=== PATIENT | female | born 1960 | race Caucasian/White ===

== ENCOUNTER → 2017-11-10 12:25 | Outpatient (CLI) | payer MEDICARE, SELFPAY | PROVIDERS: Family Provider Internal Medicine; PCP Internal Medicine; Visit Provider Nurse Practitioner Acute Care | DX: J32.9 Chronic sinusitis, unspecified (principal) | CPT/HCPCS: 87070; 87205; 87804 ==

== ENCOUNTER 2017-11-12 14:52 | Inpatient (IN) | payer MEDICARE, SELFPAY ==
[2017-11-12] VITALS (21 sets, daily range): BP systolic 107–152; BP diastolic 63–92; PULSE 75–86; RESP 12–24; TEMP 36.3–36.9; O2SAT 93–100; BMI 44.4; BMI 43.5
--- NOTE | 2017-11-12 15:13 | EKG12_ITS ---
Test Reason : SOB Blood Pressure : / mmHG Vent. Rate : 075 BPM Atrial Rate : 075 BPM P-R Int : 196 ms QRS Dur : 090 ms QT Int : 390 ms P-R-T Axes : 045 006 034 degrees QTc Int : 435 ms Normal sinus rhythm Normal ECG Confirmed by ADITHYA ORLANDO MD ([id number]), acquisitions editor HARSHAL SANDOVAL ([id number] on 11/17/2017 4:03:43 PM Referred By: LEO Confirmed By:ADITHYA ORLANDO MD
--- NOTE | 2017-11-12 15:13 | RAD_ITS ---
STUDY: X-RAY CHEST REASON FOR EXAM: Female, 57 years old. Shortness of breath. TECHNIQUE: Single AP portable view of the chest. COMPARISON: Comparison is made with prior study dated January 05, 2016. FINDINGS: EKG electrodes are seen. Mild degree of vascular congestion. There is no demonstrated pleural abnormality. Normal size heart. Normal mediastinum and yulisa. Normal visualized pulmonary arteries. Normal visualized aortic arch and descending thoracic aorta. There are diffuse degenerative changes of the visualized thoracic spine. Prior fusion in the lower cervical spine. There is no demonstrated abnormality of the visualized soft tissue structures of the upper abdomen. RAD/Chest 1 View (Portable) IMPRESSION: Findings in keeping with a mild degree of vascular congestion. Electronically Signed: Lon Fuchs MD at 15:41 EST Tel [phone], Service support ,
--- NOTE | 2017-11-12 15:15 | ED.VISSUMM ---
- ER Visit Summary Date of Service: 11/12/17 Chief Complaint: Shortness of breath History of Present Illness: The patient is a 57 F history of asthma and COPD also insulin-dependent diabetes and prior DVT and PE is on warfarin. Patient complaining of two-week history of shortness of breath. She was initially treated with Levaquin for 10 days. After that was over she progressively got worse again. She has been running fevers as high as 103 at on Jules 2 days ago was diagnosed with influenza also. She saw her primary care physician earlier this week and her oncology technician today who sent her in the hospital for further evaluation. She denies any hemoptysis. She denies any pleuritic chest pain. She has no cardiac history. Physical Examination: Middle-aged female. Obviously labored breathing with audible wheezing. H EENT exam unremarkable. Neck nontender no JVD. Lungs inspiratory wheezing throughout. No rales or rhonchi. Equal symmetrical. Heart regular rate and rhythm in the 80s. Abdomen is obese but soft and nontender. No peritoneal signs. She is moving all 4 extremities. Calves are nontender. Neurologically she is awake and alert without focal motor deficits. Test Results: CBC normal. BMP normal. PT/INR normal. Troponin normal. EKG sinus rhythm rate is 75 with no signs of TN or ischemia. No dysrhythmia. Chest x-ray showed chronic changes but no acute process read both by myself and the radiologist. Emergency Department Course and Treatment: Patient will be treated with IV steroids and aerosol treatments. She is currently already on prednisone. We will obtain labs and chest x-ray. Treatment Plan: Repeat exam no significant change after multiple aerosol treatments and IV Solu-Medrol. Patient will be admitted to our spoken to the hospitalist. She will also be given 10 mg of Coumadin. Disposition: Admission Impression: Acute exacerbation COPD and asthma. Recently diagnosed with acute influenza. History of insulin-dependent diabetes. Subtherapeutic anticoagulation with an INR of 1 This note was generated with [employer] dictation software. It may contain incorrect words, spelling, and punctuation that were not noted in review of the chart prior to signing ED Disposition - Plan for ED Patient: Chief Complaint: Shortness of Breath Referrals: Ophelia Soria DO [Primary Care Provider] -
--- NOTE | 2017-11-12 15:18 | ED.DCSUM_ITS ---
- ER Visit Summary Date of Service: 11/12/17 Chief Complaint: Shortness of breath History of Present Illness: The patient is a 57 F history of asthma and COPD also insulin-dependent diabetes and prior DVT and PE is on warfarin. Patient complaining of two-week history of shortness of breath. She was initially treated with Levaquin for 10 days. After that was over she progressively got worse again. She has been running fevers as high as 103 at on Jules 2 days ago was diagnosed with influenza also. She saw her primary care physician earlier this week and her plant protection guard today who sent her in the hospital for further evaluation. She denies any hemoptysis. She denies any pleuritic chest pain. She has no cardiac history. Physical Examination: Middle-aged female. Obviously labored breathing with audible wheezing. H EENT exam unremarkable. Neck nontender no JVD. Lungs inspiratory wheezing throughout. No rales or rhonchi. Equal symmetrical. Heart regular rate and rhythm in the 80s. Abdomen is obese but soft and nontender. No peritoneal signs. She is moving all 4 extremities. Calves are nontender. Neurologically she is awake and alert without focal motor deficits. Test Results: CBC normal. BMP normal. PT/INR normal. Troponin normal. EKG sinus rhythm rate is 75 with no signs of MS or ischemia. No dysrhythmia. Chest x-ray showed chronic changes but no acute process read both by myself and the radiologist. Emergency Department Course and Treatment: Patient will be treated with IV steroids and aerosol treatments. She is currently already on prednisone. We will obtain labs and chest x-ray. Treatment Plan: Repeat exam no significant change after multiple aerosol treatments and IV Solu-Medrol. Patient will be admitted to our spoken to the hospitalist. She will also be given 10 mg of Coumadin. Disposition: Admission Impression: Acute exacerbation COPD and asthma. Recently diagnosed with acute influenza. History of insulin-dependent diabetes. Subtherapeutic anticoagulation with an INR of 1 This note was generated with Imnish dictation software. It may contain incorrect words, spelling, and punctuation that were not noted in review of the chart prior to signing ED Disposition - Plan for ED Patient: Chief Complaint: Shortness of Breath Referrals: Ophelia Soria DO [Primary Care Provider] -
[2017-11-12] MEDS: Albuterol 2.5 MG/3 ML VIAL.NEB. INHALATION ×3 (15:30)
[2017-11-12] MEDS: Ipratropium/Albuterol Sulfate 3 ML AMPUL.NEB INHALATION ×2 (15:30→20:40)
[2017-11-12] MEDS: MethylPREDNISolone 125 MG/2 ML Vial IV (15:31)
[2017-11-12 15:59] LABS: Absolute Lymphocyte Count 2.56 X10^3/ul (0.83-4.51); Absolute Neutrophil Count 3.7 X10^3/uL (2.0-7.7); Basophil# 0.14 X10^3/uL; Basophil% 1.8 % (0-1); Eosinophil# 0.21 X10^3/uL; Eosinophils% 2.6 % (0-5); Hematocrit 44.2 % (37-47); Hemoglobin 14.2 g/dl (12.0-15.0); Lymphocyte # 2.56 X10^3/ul (4.0); Lymphocyte % 32.1 % (19-41); Mean Corp Hgb Conc 32.1 g/gl (32-36); Mean Corpuscular Hgb 28.9 pg (27.0-32.0); Mean Corpuscular Volume 89.8 fL (81-99); Mean Platelet Vol. 10.9 fl (6.2-12.0); Monocyte# 1.33 X10^3/uL; Monocyte% 16.7 % (0-10); Neutrophil # 3.69 X10^3/uL (2.7-7.7); Neutrophil % 46.2 % (47-70); Platelet Count 233 K/mm3 (150-450); RBC Distribution Width CV 16.2 % (11.6-14.6); Red Blood Count 4.92 M/mm3 (4.2-5.4)
[2017-11-12 16:00] LABS: International Normalized Ratio 1.1
[2017-11-12 16:04] LABS: POSITIVE COUNT NO; POSITIVE DIFFERENTIAL NO; POSITIVE MORPHOLOGY NO
[2017-11-12 16:08] LABS: Anion Gap 9 (5-15); BUN 12 mg/dL (7-18); BUN/Creat Ratio 21.5 RATIO (10-20); Calcium,Total 8.4 mg/dL (8.5-10.1); Chloride 109 mmol/L (98-107); Creatinine, Serum 0.56 mg/dL (0.55-1.02); EST Glomerular Filtration Rate 118 mL/min (>60); Est Glom Filt Rate - Afr Amer 143 mL/min (>60); Estimated Creatinine Clearance 94.56 ml/min; Glucose 119 mg/dL (70-110); Potassium 3.8 mmol/L (3.5-5.1); Sodium Level 145 mmol/L (136-145)
--- NOTE | 2017-11-12 16:32 | NURSING ---
MED SURG COPD EXAC ALEXANDRA
--- NOTE | 2017-11-12 17:00 | PCM.HP.STD ---
Problem List (1) Influenza A Status: Acute (2) Acute bronchitis Status: Acute Qualifiers: Bronchitis organism: other organism Qualified Code(s): J20.8 - Acute bronchitis due to other specified organisms (3) History of pulmonary embolism Status: Chronic (4) Sinusitis Status: Chronic Qualifiers: Sinusitis location: unspecified location Chronicity: unspecified Qualified Code(s): J32.9 - Chronic sinusitis, unspecified (5) GERD (gastroesophageal reflux disease) Status: Chronic Qualifiers: Esophagitis presence: esophagitis presence not specified Qualified Code(s): K21.9 - Gastro-esophageal reflux disease without esophagitis (6) CAD (coronary artery disease) Status: Chronic Qualifiers: Coronary Disease-Associated Artery/Lesion type: unspecified vessel or lesion type [place] vs. transplanted heart: unspecified whether [place] or transplanted heart Associated angina: angina presence unspecified Qualified Code(s): I25.10 - Atherosclerotic heart disease of [place] coronary artery without angina pectoris (7) Body mass index 45.0-49.9, adult Status: Chronic (8) Asthma Status: Chronic Qualifiers: Asthma severity: unspecified severity Asthma persistence: unspecified Asthma complication type: unspecified Qualified Code(s): J45.909 - Unspecified asthma, uncomplicated (9) Benign hypertension Status: Chronic (10) Type 2 diabetes mellitus Status: Chronic Qualifiers: Diabetes mellitus complication status: with unspecified complications Diabetes mellitus 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 Qualified Code(s): E11.8 - Type 2 diabetes mellitus with unspecified complications; Z79.4 - 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 of insulin (11) Morbid obesity Status: Chronic (12) CHELSEY treated with BiPAP Status: Chronic (13) COPD (chronic obstructive pulmonary disease) Status: Chronic Qualifiers: COPD type: unspecified COPD Qualified Code(s): J44.9 - Chronic obstructive pulmonary disease, unspecified (14) Diastolic heart failure Status: Chronic Qualifiers: Heart failure chronicity: chronic Qualified Code(s): I50.32 - Chronic diastolic (congestive) heart failure (15) Hypertension Status: Chronic Qualifiers: Hypertension type: essential hypertension Qualified Code(s): I10 - Essential (primary) hypertension (16) Hyperlipidemia Status: Chronic Qualifiers: Hyperlipidemia type: unspecified Qualified Code(s): E78.5 - Hyperlipidemia, unspecified (17) Acute respiratory failure Status: Acute Qualifiers: Respiratory failure complication: hypoxia Qualified Code(s): J96.01 - Acute respiratory failure with hypoxia History of Present Illness Date of Admission: 11/12/17 Chief Complaint: Dyspnea, wheezing, recent levaquin completion, sent to ED per Pulmonary office. The patient is a 57 y/o F w/ PMHx: Chronic COPD/Asthma, Anxiety and Depression, Hyperlipidemia, Hypertension, History of PE and DVT on chronic coumadin therapy, Morbid Obesity, CHELESY on q HS BIPAP, Diabetes mellitus type II, CAD, Diastolic CHF, GERD who presents to the [facility] ED per Pulmonary Office recommendation w/ recent in office sputum noted to be unremarkable upon review, recent 11/10/17 + influenza A status w/ recent completion Levaquin 10 day regimen with 2 week history of ongoing dyspnea, progressively worsening with elevated T up to 103. She notes that she has progressively worsened since 6:30 am with ongoing wheezing despite aerosols prompting her pulmonary office evaluation. In the ED work-up included T 97.6, HR 80, BP 146/70, RR 24, 96% on RA, CBC w/ WBC 8, Hgb 14.2, Plts 233 with no marked L shift, INR subtherapeutic 1.1, BMP w. Chl 109, glucose 119, trop < 0.02, CXR w/ chronic changes and mild congestion, recent pulmonary office assessment w/ 11/10/17 + influenza A w/ unremarkable sputum culture. In the ED patient administered duoneb, albuterol, solumedrol, coumadin load 10 mg po x 1. Past Medical History Past Medical History (Chronic Problems): Chronic Problems (Last Reviewed 11/10/17 @ 16:17 by Luly Cheatham NP-C) Hyperlipidemia (Chronic) History of pulmonary embolism (Chronic) Personal history of anaphylaxis (Chronic) Chronic airway obstruction, not elsewhere classified (Chronic) Sinusitis (Chronic) GERD (gastroesophageal reflux disease) (Chronic) CAD (coronary artery disease) (Chronic) Bilateral carotid bruits (Chronic) Body mass index 45.0-49.9, adult (Chronic) Abnormal echocardiogram (Chronic) Shortness of breath (Chronic) Asthma (Chronic) Benign hypertension (Chronic) Type 2 diabetes mellitus (Chronic) Morbid obesity (Chronic) History of pulmonary embolism (Chronic) CHELSEY treated with BiPAP (Chronic) COPD (chronic obstructive pulmonary disease) (Chronic) Diastolic heart failure (Chronic) Hypertension (Chronic) Allergies clindamycin Allergy (Verified 11/12/17 14:55) Rash erythromycin base [Erythromycin Base] Allergy (Verified 11/12/17 14:55) Rash omalizumab [From Xolair] Allergy (Verified 11/12/17 14:55) Chest tightness Penicillins Allergy (Verified 11/12/17 14:55) Rash sulfamethoxazole [From Bactrim] Allergy (Verified 11/12/17 14:55) Chest tightness trimethoprim [From Bactrim] Allergy (Verified 11/12/17 14:55) Chest tightness Home Medications: Ambulatory Orders Medication Instructions Recorded Budesonide/Formoterol 160/4.5 2 puff INHALATION BID 01/26/14 [Symbicort 160/4.5 Mcg Inhaler (SP)] Clobetasol Propionate/Emoll 15 gm TP BID PRN PRN 01/26/14 [Clobetasol Emollient 0.05% Crm] Diltiazem HCl [Cardizem Cd] 360 mg PO DAILY 01/26/14 Fluoxetine [Prozac] 40 mg PO DAILY 01/26/14 Ipratropium/Albuterol Sulfate 3 ml INHALATION Q4H PRN PRN 01/26/14 [Duoneb] Tiotropium Gordon [Spiriva 18 MCG] 1 puff INHALATION DAILY 01/26/14 Epinephrine [Epi Pen] 0.3 mg IM X1 PRN 08/08/15 Tizanidine HCl 4 mg PO BID 11/12/15 Albuterol Aerosols [Ventolin 2.5 mg INHALATION BID PRN 01/06/16 Aerosols] Aspirin [Adult Low Dose Aspirin EC] 81 mg PO QHS 01/06/16 Docusate Sodium [Colace] 100 mg PO BID 01/06/16 Fenofibrate [Lofibra] 80 mg PO DAILY 01/06/16 Furosemide [Lasix] 20 mg PO BIDLX 01/06/16 Gabapentin [Neurontin] 600 mg PO TID 01/06/16 Guaifenesin [Mucinex] 400 mg PO DAILY 01/06/16 Insulin Detemir [Levemir FlexPen] 50 units SC BID 01/06/16 Insulin Lispro [Humalog] 25 unit SQ TIDCM 01/06/16 L.acidoph,Paracasei, B.lactis 1 each PO DAILY 01/06/16 [Probiotic] Levocetirizine Dihydrochloride 5 mg PO DAILY 01/06/16 [Xyzal] Montelukast [Singulair] 10 mg PO DAILY 01/06/16 Multivit-Min/Iron/Folic/Lutein 1 each PO DAILY 01/06/16 [Centrum Silver Women Tablet] Omeprazole [Prilosec] 40 mg PO DAILY 01/06/16 Pitavastatin Calcium [Livalo] 1 mg PO DAILY 01/06/16 Potassium Chloride [K-Dur] 10 meq PO BID 01/06/16 Ranitidine [Zantac] 150 mg PO QHS 01/06/16 Liraglutide [Victoza 2-Ron] 1.8 mg SQ DAILY 02/01/16 Warfarin [Coumadin] 4 mg PO DAILY@1700 02/01/16 Albuterol Inhaler [Ventolin Hfa 2 puff INHALATION Q4H PRN PRN 05/27/16 (SP)] Azelastine HCl [Astelin] 1 spray NASAL BID 05/27/16 Baclofen 5 mg PO BID 05/27/16 Beclomethasone Diprop Inhaler 1 - 2 puff INHALATION BID 05/27/16 [Qvar 80 Mcg Inhaler] Beclomethasone Dipropionate [Qnasl 1 puff IH UD 05/27/16 Children] Ca/D3/Mag/Zinc/Roly/Bello/Mgbor 1 each PO BID 05/27/16 [Caltrate 600+D3+Min Chew Tab] Dicyclomine HCl 20 mg PO TID PRN 05/27/16 Enoxaparin [Lovenox] 120 mg SC Q12@0600,1800 05/27/16 Inhaler, Assist Devices 1 each MC DAILY PRN PRN 05/27/16 [Aerochamber Plus Flow-Vu] Moexipril/Hydrochlorothiazide 1 each PO BID 05/27/16 [Moexipril-Hctz 7.5-12.5 mg Tab] Oxycodone HCl/Acetaminophen 1 - 2 tablet PO Q4H PRN PRN #20 03/27/17 [Percocet 5/325] tablet prednisone 10 mg tablet 10 mg PO QDAY #30 tab 11/10/17 Surgical History: appendectomy, herniorrhaphy, - - Cervical disc surgery, rotator cuff surgery, . Psychiatric History: Anxiety, Depression ADMISSIONS CLINICIAN History: No pertinent ADMISSIONS CLINICIAN history Lives: Spouse/ Significant Other Smoking Status: Never smoker Tobacco Use: Non-smoker Alcohol: None Drugs: None - *Family History Maternal History Items: Diabetes Paternal History Items: Heart Disease Review of Systems Constitutional: Reports: Anorexia, Chills, Fever, Malaise, Weakness, Fatigue. Denies: Weight Change HEENT: Denies: Head Aches, Sinus Congestion, Sinus Drainage Cardiovascular: Denies: Chest Pain, Palpitations Respiratory: Reports: Cough, Shortness of Breath, Shortness of breath at rest, Shortness of breath upon exertion, Sputum production, Wheezing Gastrointestinal: Reports: Nausea. Denies: Abdominal Pain, Vomiting Genitourinary: Denies: Dysuria Musculoskeletal: Reports: Back Pain. Denies: Joint Pain, Joint Tenderness Skin: Denies: Rash, Wounds Neurological: Denies: Numbness, Tingling, Focal weakness Psychiatric: Reports: Anxiety, Depression. Denies: Homicidal Ideations, Suicidal Ideations Hematologic/ Lymphatic: Denies: Easy Bruising, Easy Bleeding VTE Information - Inpt Only VTE Present on Admission: No VTE Mechan Device Prophylaxis: SCD's VTE Pharm Prophylaxis ordered?: Yes Patient Problems: Active and Suspected Problems (Last Reviewed 11/10/17 @ 16:17 by Luly Cheatham NP-C) Acute respiratory failure (Acute) Subjective: Seated upright in bed, increased work of breathing, difficulty speaking in full sentences, accessory muscle usage, obvious respiratory distress. Objective: Physical Examination: General: awake, alert, oriented x 3 and cooperative, seated upright in bed, increased work of breathing, difficulty speaking in full sentences, accessory muscle usage, obvious respiratory distress. Skin: normal color, turgor, no icterus, cyanosis. HEENT: AT/NC, EOMI, PERRLA, mildly dry MM, no carotid bruits or JVD noted although thickened neck makes examination difficult. Lungs: Diminished BS, > bases, coarse diffusely, harsh, expiratory wheezing diffusely, increased work of breathing, difficulty speaking in full sentences, accessory muscle usage, obvious respiratory distress. Heart: Regular rate and rhythm; no gallop, rub audible. Abdomen: soft, morbidly obese, NTTP, ND, normal BS, no HSM; however, habitus makes examination difficult. Extremities: no cyanosis, clubbing, BL LE ankle mild edema. Neurological: patient awake, alert, oriented x 3; cognitive function intact; pupils equally reactive to light and accomodation; cranial nerves II-XII grossly normal, moving all 4 extremities, no focal deficits, strength severely globally decreased secondary to acute presentation. Psychiatric: affect appears fatigued, no acute evidence of depressive or anxiety feelings. - Physical Exam Vital Signs Temp Pulse Resp BP Pulse Ox 97.6 F L 86 14 146/70 H 96 11/12/17 14:53 11/12/17 16:21 11/12/17 16:21 11/12/17 16:21 11/12/17 16:21 Assessment/Plan Active and Suspected Problems (Last Reviewed 11/10/17 @ 16:17 by ADAM Pantoja) Acute respiratory failure (Acute) The patient is a 57 y/o F w/ PMHx: Chronic COPD/Asthma, Anxiety and Depression, Hyperlipidemia, Hypertension, History of PE and DVT on chronic coumadin therapy, Morbid Obesity, CHELSEY on q HS BIPAP, Diabetes mellitus type II, CAD, Diastolic CHF, GERD who presents to the [facility] ED per Pulmonary Office recommendation w/ recent in office sputum noted to be unremarkable upon review, recent 11/10/17 + influenza A status w/ recent completion Levaquin 10 day regimen with 2 week history of ongoing dyspnea, progressively worsening with elevated T up to 103. (1) Acute Hypoxic Respiratory Failure secondary to General Malaise, Cough, Fever, General Debility, Dyspnea w/ Acute on Chronic COPD/Asthma Exacerbation secondary to Influenza A Viral Syndrome: CXR in the ED w/ chronic changes, no obvious infiltrate, recent Levaquin 10 day regimen. Admission CBC w/ no marked WBC or shift noted. 11/10/17 Influenza A positive. No indication for tamflu given length of symptoms. Initially admitted to DC per Swing, upon evaluation status severe appearing w/ increased RR, accessory muscle usage, audible wheezing w/ evidence acute hypoxic respiratory failure. Will transfer from DC to ICU, obtain ABG, place on BIPAP now, repeat ABG in 1-2 hours following and if needed intubate per patient okay if not improved status or fatiguing. Will maintain on ATC duonebs, PRN albuterol, IV solumedrol with predisone transition once appropriate, HOB, IS parameters. Pulmonary/ICU consulted, pending. (2) History of PE, DVT with Subtherapeutic INR: Maintained on anticoagulation, INR admission 1.1, subtherapeutic, administered 10 mg po x 1 in the ED, will administer overlap therapeutic coumadin w/ close INR trending. (3) Diabetes mellitus type II: Hold oral home regimen, continue home insulin regimen, ADA diet, accu checks w/ ISS. (4) Morbid Obesity: Weight loss and lifestyle changes encouraged, nutrition consulted. (5) CHELSEY: q HS BIPAP. (6) Hypertension: Continue home regimen including Cardizem, Lasix, ACEI/HCTZ, PRN hydralazine. (7) Hyperlipidemia: Continue home statin regimen. (8) Diastolic CHF: CXR does not appear marked congested, compensated, maintain on coumadin, asa, statin, lasix, ACEI, not on BB secondary to underlying COPD/Asthma likely. (9) GERD: Famotidine. (10) DVT prophylaxis: SCDs, coumadin w/ INR trending w/ overlapping therapeutic coumadin given subtherapeutic. (11) FULL CODE Code Visit Inpatient E&M: 43922 Init Hosp L3
--- NOTE | 2017-11-12 17:12 | HP.PCM_ITS ---
Problem List (1) Influenza A Status: Acute (2) Acute bronchitis Status: Acute Qualifiers: Bronchitis organism: other organism Qualified Code(s): J20.8 - Acute bronchitis due to other specified organisms (3) History of pulmonary embolism Status: Chronic (4) Sinusitis Status: Chronic Qualifiers: Sinusitis location: unspecified location Chronicity: unspecified Qualified Code(s): J32.9 - Chronic sinusitis, unspecified (5) GERD (gastroesophageal reflux disease) Status: Chronic Qualifiers: Esophagitis presence: esophagitis presence not specified Qualified Code(s) : K21.9 - Gastro-esophageal reflux disease without esophagitis (6) CAD (coronary artery disease) Status: Chronic Qualifiers: Coronary Disease-Associated Artery/Lesion type: unspecified vessel or lesion type [place] vs. transplanted heart: unspecified whether [place] or transplanted heart Associated angina: angina presence unspecified Qualified Code(s): I25.10 - Atherosclerotic heart disease of [place] coronary artery without angina pectoris (7) Body mass index 45.0-49.9, adult Status: Chronic (8) Asthma Status: Chronic Qualifiers: Asthma severity: unspecified severity Asthma persistence: unspecified Asthma complication type: unspecified Qualified Code(s): J45.909 - Unspecified asthma, uncomplicated (9) Benign hypertension Status: Chronic (10) Type 2 diabetes mellitus Status: Chronic Qualifiers: Diabetes mellitus complication status: with unspecified complications Diabetes mellitus terminal supervisor insulin use: with terminal supervisor use Qualified Code(s) : E11.8 - Type 2 diabetes mellitus with unspecified complications; Z79.4 - group home (current) use of insulin (11) Morbid obesity Status: Chronic (12) CHELSEY treated with BiPAP Status: Chronic (13) COPD (chronic obstructive pulmonary disease) Status: Chronic Qualifiers: COPD type: unspecified COPD Qualified Code(s): J44.9 - Chronic obstructive pulmonary disease, unspecified (14) Diastolic heart failure Status: Chronic Qualifiers: Heart failure chronicity: chronic Qualified Code(s): I50.32 - Chronic diastolic (congestive) heart failure (15) Hypertension Status: Chronic Qualifiers: Hypertension type: essential hypertension Qualified Code(s): I10 - Essential (primary) hypertension (16) Hyperlipidemia Status: Chronic Qualifiers: Hyperlipidemia type: unspecified Qualified Code(s): E78.5 - Hyperlipidemia , unspecified (17) Acute respiratory failure Status: Acute Qualifiers: Respiratory failure complication: hypoxia Qualified Code(s): J96.01 - Acute respiratory failure with hypoxia History of Present Illness Date of Admission: 11/12/17 Chief Complaint: Dyspnea, wheezing, recent levaquin completion, sent to ED per Pulmonary office. The patient is a 57 y/o F w/ PMHx: Chronic COPD/Asthma, Anxiety and Depression, Hyperlipidemia, Hypertension, History of PE and DVT on chronic coumadin therapy , Morbid Obesity, CHELSEY on q HS BIPAP, Diabetes mellitus type II, CAD, Diastolic CHF, GERD who presents to the [facility] ED per Pulmonary Office recommendation w/ recent in office sputum noted to be unremarkable upon review, recent 11/10/17 + influenza A status w/ recent completion Levaquin 10 day regimen with 2 week history of ongoing dyspnea, progressively worsening with elevated T up to 103. She notes that she has progressively worsened since 6:30 am with ongoing wheezing despite aerosols prompting her pulmonary office evaluation. In the ED work-up included T 97.6, HR 80, BP 146/70, RR 24, 96% on RA, CBC w/ WBC 8, Hgb 14.2, Plts 233 with no marked L shift, INR subtherapeutic 1.1, BMP w. Chl 109, glucose 119, trop < 0.02, CXR w/ chronic changes and mild congestion, recent pulmonary office assessment w/ 11/10/17 + influenza A w/ unremarkable sputum culture. In the ED patient administered duoneb, albuterol, solumedrol, coumadin load 10 mg po x 1. Past Medical History Past Medical History (Chronic Problems): Chronic Problems (Last Reviewed 11/10/17 @ 16:17 by Luly Cheatham NP-C) Hyperlipidemia (Chronic) History of pulmonary embolism (Chronic) Personal history of anaphylaxis (Chronic) Chronic airway obstruction, not elsewhere classified (Chronic) Sinusitis (Chronic) GERD (gastroesophageal reflux disease) (Chronic) CAD (coronary artery disease) (Chronic) Bilateral carotid bruits (Chronic) Body mass index 45.0-49.9, adult (Chronic) Abnormal echocardiogram (Chronic) Shortness of breath (Chronic) Asthma (Chronic) Benign hypertension (Chronic) Type 2 diabetes mellitus (Chronic) Morbid obesity (Chronic) History of pulmonary embolism (Chronic) CHELSEY treated with BiPAP (Chronic) COPD (chronic obstructive pulmonary disease) (Chronic) Diastolic heart failure (Chronic) Hypertension (Chronic) Allergies clindamycin Allergy (Verified 11/12/17 14:55) Rash erythromycin base [Erythromycin Base] Allergy (Verified 11/12/17 14:55) Rash omalizumab [From Xolair] Allergy (Verified 11/12/17 14:55) Chest tightness Penicillins Allergy (Verified 11/12/17 14:55) Rash sulfamethoxazole [From Bactrim] Allergy (Verified 11/12/17 14:55) Chest tightness trimethoprim [From Bactrim] Allergy (Verified 11/12/17 14:55) Chest tightness Home Medications: Ambulatory Orders Medication Instructions Recorded Budesonide/Formoterol 160/4.5 2 puff INHALATION BID 01/26/14 [Symbicort 160/4.5 Mcg Inhaler (SP)] Clobetasol Propionate/Emoll 15 gm TP BID PRN PRN 01/26/14 [Clobetasol Emollient 0.05% Crm] Diltiazem HCl [Cardizem Cd] 360 mg PO DAILY 01/26/14 Fluoxetine [Prozac] 40 mg PO DAILY 01/26/14 Ipratropium/Albuterol Sulfate 3 ml INHALATION Q4H PRN PRN 01/26/14 [Duoneb] Tiotropium [place] [Spiriva 18 MCG] 1 puff INHALATION DAILY 01/26/14 Epinephrine [Epi Pen] 0.3 mg IM X1 PRN 08/08/15 Tizanidine HCl 4 mg PO BID 11/12/15 Albuterol Aerosols [Ventolin 2.5 mg INHALATION BID PRN 01/06/16 Aerosols] Aspirin [Adult Low Dose Aspirin EC] 81 mg PO QHS 01/06/16 Docusate Sodium [Colace] 100 mg PO BID 01/06/16 Fenofibrate [Lofibra] 80 mg PO DAILY 01/06/16 Furosemide [Lasix] 20 mg PO BIDLX 01/06/16 Gabapentin [Neurontin] 600 mg PO TID 01/06/16 Guaifenesin [Mucinex] 400 mg PO DAILY 01/06/16 Insulin Detemir [Levemir FlexPen] 50 units SC BID 01/06/16 Insulin Lispro [Humalog] 25 unit SQ TIDCM 01/06/16 L.acidoph,Paracasei, B.lactis 1 each PO DAILY 01/06/16 [Probiotic] Levocetirizine Dihydrochloride 5 mg PO DAILY 01/06/16 [Xyzal] Montelukast [Singulair] 10 mg PO DAILY 01/06/16 Multivit-Min/Iron/Folic/Lutein 1 each PO DAILY 01/06/16 [Centrum Silver Women Tablet] Omeprazole [Prilosec] 40 mg PO DAILY 01/06/16 Pitavastatin Calcium [Livalo] 1 mg PO DAILY 01/06/16 Potassium Chloride [K-Dur] 10 meq PO BID 01/06/16 Ranitidine [Zantac] 150 mg PO QHS 01/06/16 Liraglutide [Victoza 2-Ron] 1.8 mg SQ DAILY 02/01/16 Warfarin [Coumadin] 4 mg PO DAILY@1700 02/01/16 Albuterol Inhaler [Ventolin Hfa 2 puff INHALATION Q4H PRN PRN 05/27/16 (SP)] Azelastine HCl [Astelin] 1 spray NASAL BID 05/27/16 Baclofen 5 mg PO BID 05/27/16 Beclomethasone Diprop Inhaler 1 - 2 puff INHALATION BID 05/27/16 [Qvar 80 Mcg Inhaler] Beclomethasone Dipropionate [Qnasl 1 puff IH UD 05/27/16 Children] Ca/D3/Mag/Zinc/Roly/Bello/Mgbor 1 each PO BID 05/27/16 [Caltrate 600+D3+Min Chew Tab] Dicyclomine HCl 20 mg PO TID PRN 05/27/16 Enoxaparin [Lovenox] 120 mg SC Q12@0600,1800 05/27/16 Inhaler, Assist Devices 1 each MC DAILY PRN PRN 05/27/16 [Aerochamber Plus Flow-Vu] Moexipril/Hydrochlorothiazide 1 each PO BID 05/27/16 [Moexipril-Hctz 7.5-12.5 mg Tab] Oxycodone HCl/Acetaminophen 1 - 2 tablet PO Q4H PRN PRN #20 03/27/17 [Percocet 5/325] tablet prednisone 10 mg tablet 10 mg PO QDAY #30 tab 11/10/17 Surgical History: appendectomy, herniorrhaphy, - - Cervical disc surgery, rotator cuff surgery, . Psychiatric History: Anxiety, Depression LUMBER ESTIMATOR History: No pertinent LUMBER ESTIMATOR history Lives: Spouse/ Significant Other Smoking Status: Never smoker Tobacco Use: Non-smoker Alcohol: None Drugs: None - *Family History Maternal History Items: Diabetes Paternal History Items: Heart Disease Review of Systems Constitutional: Reports: Anorexia, Chills, Fever, Malaise, Weakness, Fatigue. Denies: Weight Change HEENT: Denies: Head Aches, Sinus Congestion, Sinus Drainage Cardiovascular: Denies: Chest Pain, Palpitations Respiratory: Reports: Cough, Shortness of Breath, Shortness of breath at rest, Shortness of breath upon exertion, Sputum production, Wheezing Gastrointestinal: Reports: Nausea. Denies: Abdominal Pain, Vomiting Genitourinary: Denies: Dysuria Musculoskeletal: Reports: Back Pain. Denies: Joint Pain, Joint Tenderness Skin: Denies: Rash, Wounds Neurological: Denies: Numbness, Tingling, Focal weakness Psychiatric: Reports: Anxiety, Depression. Denies: Homicidal Ideations, Suicidal Ideations Hematologic/ Lymphatic: Denies: Easy Bruising, Easy Bleeding VTE Information - Inpt Only VTE Present on Admission: No VTE Mechan Device Prophylaxis: SCD's VTE Pharm Prophylaxis ordered?: Yes Patient Problems: Active and Suspected Problems (Last Reviewed 11/10/17 @ 16:17 by Luly Cheatham NP-C) Acute respiratory failure (Acute) Subjective: Seated upright in bed, increased work of breathing, difficulty speaking in full sentences, accessory muscle usage, obvious respiratory distress. Objective: Physical Examination: General: awake, alert, oriented x 3 and cooperative, seated upright in bed, increased work of breathing, difficulty speaking in full sentences, accessory muscle usage, obvious respiratory distress. Skin: normal color, turgor, no icterus, cyanosis. HEENT: AT/NC, EOMI, PERRLA, mildly dry MM, no carotid bruits or JVD noted although thickened neck makes examination difficult. Lungs: Diminished BS, > bases, coarse diffusely, harsh, expiratory wheezing diffusely, increased work of breathing, difficulty speaking in full sentences, accessory muscle usage, obvious respiratory distress. Heart: Regular rate and rhythm; no gallop, rub audible. Abdomen: soft, morbidly obese, NTTP, ND, normal BS, no HSM; however, habitus makes examination difficult. Extremities: no cyanosis, clubbing, BL LE ankle mild edema. Neurological: patient awake, alert, oriented x 3; cognitive function intact; pupils equally reactive to light and accomodation; cranial nerves II-XII grossly normal, moving all 4 extremities, no focal deficits, strength severely globally decreased secondary to acute presentation. Psychiatric: affect appears fatigued, no acute evidence of depressive or anxiety feelings. - Physical Exam Vital Signs Temp Pulse Resp BP Pulse Ox 97.6 F L 86 14 146/70 H 96 11/12/17 14:53 11/12/17 16:21 11/12/17 16:21 11/12/17 16:21 11/12/17 16:21 Assessment/Plan Active and Suspected Problems (Last Reviewed 11/10/17 @ 16:17 by ADAM Pantoja) Acute respiratory failure (Acute) The patient is a 57 y/o F w/ PMHx: Chronic COPD/Asthma, Anxiety and Depression, Hyperlipidemia, Hypertension, History of PE and DVT on chronic coumadin therapy , Morbid Obesity, CHELSEY on q HS BIPAP, Diabetes mellitus type II, CAD, Diastolic CHF, GERD who presents to the [facility] ED per Pulmonary Office recommendation w/ recent in office sputum noted to be unremarkable upon review, recent 11/10/17 + influenza A status w/ recent completion Levaquin 10 day regimen with 2 week history of ongoing dyspnea, progressively worsening with elevated T up to 103. (1) Acute Hypoxic Respiratory Failure secondary to General Malaise, Cough, Fever , General Debility, Dyspnea w/ Acute on Chronic COPD/Asthma Exacerbation secondary to Influenza A Viral Syndrome: CXR in the ED w/ chronic changes, no obvious infiltrate, recent Levaquin 10 day regimen. Admission CBC w/ no marked WBC or shift noted. 11/10/17 Influenza A positive. No indication for tamflu given length of symptoms. Initially admitted to [facility] per Swing, upon evaluation status severe appearing w/ increased RR, accessory muscle usage, audible wheezing w/ evidence acute hypoxic respiratory failure. Will transfer from [place] to ICU, obtain ABG, place on BIPAP now, repeat ABG in 1-2 hours following and if needed intubate per patient okay if not improved status or fatiguing. Will maintain on ATC duonebs, PRN albuterol, IV solumedrol with predisone transition once appropriate, HOB, IS parameters. Pulmonary/ICU consulted, pending. (2) History of PE, DVT with Subtherapeutic INR: Maintained on anticoagulation, INR admission 1.1, subtherapeutic, administered 10 mg po x 1 in the ED, will administer overlap therapeutic coumadin w/ close INR trending. (3) Diabetes mellitus type II: Hold oral home regimen, continue home insulin regimen, ADA diet, accu checks w/ ISS. (4) Morbid Obesity: Weight loss and lifestyle changes encouraged, nutrition consulted. (5) CHELSEY: q HS BIPAP. (6) Hypertension: Continue home regimen including Cardizem, Lasix, ACEI/HCTZ, PRN hydralazine. (7) Hyperlipidemia: Continue home statin regimen. (8) Diastolic CHF: CXR does not appear marked congested, compensated, maintain on coumadin, asa, statin, lasix, ACEI, not on BB secondary to underlying COPD/ Asthma likely. (9) GERD: Famotidine. (10) DVT prophylaxis: SCDs, coumadin w/ INR trending w/ overlapping therapeutic coumadin given subtherapeutic. (11) FULL CODE Code Visit Inpatient E&M: 40530 Init Hosp L3
--- NOTE | 2017-11-12 18:02 | CPS ---
PT PLACED ON HOME BIPAP SETTINGS . PT WEARS BIPAP / HS AT HOME WITH 2L BLEED IN.
[2017-11-12 18:10] LABS: Magnesium 1.9 mg/dL (1.6-2.6)
[2017-11-12] MEDS: 0.9% Normal Saline 1,000 ML 100 ML IV (18:24)
[2017-11-12 18:26] LABS: Allen Test POS; Base Excess 3 mmol/L (-2 to +2); Bicarbonate 26.2 mmol/L (22-26); Blood Gas Specimen Type ART; O2 Delivery Device Room Air; PO2 74 mmHG (75-100); SITE R Radial; SO2 96 % (95-99); Time Given 1815; Total Carbon Dioxide 27 mmol/L; pCO2 35.5 mmHg (35-45); pH 7.48 (7.35-7.45)
[2017-11-12] MEDS: 0.9% NaCl Peripheral Flush Adult/Peds IV (18:29)
[2017-11-12 21:23] LABS: M R Staph aureus DNA By PCR Negative (Negative); Probe Check PASS; Specimen Processing Control PASS
[2017-11-12] MEDS: Furosemide 40 MG Tablet 20 MG PO (21:29)
[2017-11-12] MEDS: Enoxaparin 120 MG/0.8 ML Syringe SC (21:29)
[2017-11-12] MEDS: Aspirin E.C. 81 MG Tablet PO (21:30)
[2017-11-12] MEDS: Azelastine HCl NASAL.SRY 1 SPRAY NASAL (21:30)
[2017-11-12] MEDS: Famotidine 20 MG Tablet PO (21:31)
[2017-11-12] MEDS: Senna/Docusate Sodium 1 Tablet 2 TABLET PO (21:32)
[2017-11-12] MEDS: Atorvastatin Calcium 10 MG Tablet 5 MG PO (21:33)
[2017-11-12] MEDS: tiZANidine HCl 2 MG Tablet 4 MG PO (21:33)
[2017-11-12] MEDS: guaiFENesin 1,200 MG Tablet 1200 MG PO (21:34)
[2017-11-12 21:56] LABS: Bedside Glucose 216 mg/dL (70-110)
[2017-11-13] VITALS (24 sets, daily range): BP systolic 108–136; BP diastolic 54–83; PULSE 66–84; RESP 12–22; TEMP 36.4–36.9; O2SAT 92–100
[2017-11-13] MEDS: Ipratropium/Albuterol Sulfate 3 ML AMPUL.NEB INHALATION ×6 (00:40→22:59)
[2017-11-13 04:41] LABS: Absolute Lymphocyte Count 0.92 X10^3/ul (0.83-4.51); Absolute Neutrophil Count 4.7 X10^3/uL (2.0-7.7); Basophil# 0.04 X10^3/uL; Basophil% 0.7 % (0-1); Hematocrit 43.2 % (37-47); Hemoglobin 14.2 g/dl (12.0-15.0); Lymphocyte # 0.92 X10^3/ul (4.0); Lymphocyte % 15.9 % (19-41); Mean Corp Hgb Conc 32.9 g/gl (32-36); Mean Corpuscular Hgb 29.5 pg (27.0-32.0); Mean Corpuscular Volume 89.6 fL (81-99); Mean Platelet Vol. 10.8 fl (6.2-12.0); Monocyte# 0.14 X10^3/uL; Monocyte% 2.4 % (0-10); Neutrophil # 4.68 X10^3/uL (2.7-7.7); Neutrophil % 80.7 % (47-70); Platelet Count 260 K/mm3 (150-450); RBC Distribution Width CV 16.2 % (11.6-14.6); RBC Distribution Width SD 52.8 fl (35.1-43.9); Red Blood Count 4.82 M/mm3 (4.2-5.4); White Blood Count 5.8 K/mm3 (4.4-11.0)
[2017-11-13 04:43] LABS: Anion Gap 12 (5-15); BUN 13 mg/dL (7-18); BUN/Creat Ratio 18.1 RATIO (10-20); Calcium,Total 8.3 mg/dL (8.5-10.1); Chloride 106 mmol/L (98-107); Creatinine, Serum 0.72 mg/dL (0.55-1.02); EST Glomerular Filtration Rate 88 mL/min (>60); Est Glom Filt Rate - Afr Amer 107 mL/min (>60); Estimated Creatinine Clearance 73.55 ml/min; Glucose 194 mg/dL (70-110); POSITIVE COUNT NO; POSITIVE DIFFERENTIAL NO; POSITIVE MORPHOLOGY NO; Potassium 3.7 mmol/L (3.5-5.1); Sodium Level 143 mmol/L (136-145)
[2017-11-13 04:46] LABS: International Normalized Ratio 1.3; Prothrombin Time (Protime)PT. 15.7 SECONDS (11.7-14.9)
[2017-11-13] MEDS: Enoxaparin 120 MG/0.8 ML Syringe SC ×2 (06:26→16:49)
--- NOTE | 2017-11-13 06:30 | PCM.PN.HOSP ---
Patient Problems: Active and Suspected Problems (Last Reviewed 11/10/17 @ 16:17 by ADAM Pantoja) Acute respiratory failure (Acute) Subjective: Patient with no acute events overnight per self and per nursing report. She is off BiPAP this morning and much improved since evening prior. ABG was not as marked as initially suspected with only hypoxia noted. Gas patient at length with pulmonary this morning and note that she is an asthmatic with no underlying COPD although current regimen is secondary to extensive workup at pulmonary facility. He noted she may possibly in the future be placed on Xolair national recommendations from that facility including strict management of her reflux and weight reduction. Patient denies fevers, chills, nausea, emesis, abdominal pain, chest pain or worsened dyspnea. Objective: Physical Examination: General: awake, alert, oriented x 3 and cooperative, seated upright in the ICU bed in no apparent distress, off BIPAP, no marked audible wheezing now. Skin: normal color, turgor, no icterus, cyanosis. HEENT: AT/NC, EOMI, PERRLA, improved less dry MM. Lungs: Diminished, > bases, still occasional expiratory wheeze, improved from prior, currently no accessory muscle use and RR appropriate. Heart: Regular rate and rhythm; no gallop, rub audible. Abdomen: soft, morbidly obese, NTTP, ND, normal BS. Extremities: no cyanosis, clubbing, or edema. Neurological: patient awake, alert, oriented x 3; cognitive function intact; pupils equally reactive to light and accomodation; cranial nerves II-XII grossly normal, moving all 4 extremities, no focal deficits, strength improved, moderately to severely globally decreased. Psychiatric: affect appears normal, no acute evidence of depressive or anxiety feelings. Vitals/I&O's: Vital Signs Temp Pulse Resp BP Pulse Ox 97.6 F L 79 16 127/78 H 99 11/13/17 06:00 11/13/17 06:00 11/13/17 06:00 11/13/17 06:00 11/13/17 06:00 Oxygen Flow Rate 2 Oxygen Delivery Method Nasal Cannula Weight: 238 lb 8.642 oz Body Mass Index (BMI) 43.5 Intake and Output for Last 24 Hours 11/11/17 11/12/17 11/13/17 23:59 23:59 23:59 Intake Total 753 / 753 599 / 599 Output Total 1200 / 1200 1800 / 1800 Balance -447 / -447 -1201 / -1201 Laboratory Results 11/12/17 18:05: MRSA (PCR) Negative 11/12/17 18:23: Specimen Type ART, Sample Site R Radial, pH 7.48 H, Bicarbonate Actual 26.2 H, POC Total CO2 27, Base Excess 3 H, O2 Saturation 96, ABG pCO2 35.5, ABG pO2 74 L, Riccardo Test POS, O2 Delivery Device Room Air, Blood Gas Notified Whom [facility] , Blood Gas Notified Time 181411/12/17 21:18: POC Glucose 216 H 11/13/17 04:20: WBC 5.8, RBC 4.82, Hgb 14.2, Hct 43.2, MCV 89.6, MCH 29.5, MCHC 32.9, RDW 16.2 H, RDW Differential 52.8 H, Plt Count 260, MPV 10.8, Immature Gran % (Auto) 0.300, Neut % (Auto) 80.7 H, Lymph % (Auto) 15.9 L, [place] % (Auto) 2.4, Eos % (Auto) 0.0, Baso % (Auto) 0.7, Absolute Neuts (auto) 4.7, Absolute Lymphs (auto) 0.92, Total Counted Not Reportable 11/13/17 04:20: PT 15.7 H, INR 1.3 11/13/17 04:20: Sodium 143, Potassium 3.7, Chloride 106, Carbon Dioxide 25.0, Anion Gap 12, BUN 13, Creatinine 0.72, Estim Creat Clear Calc 73.55, Est GFR (MDRD) Af Amer 107, Est GFR (MDRD) Non-Af 88, BUN/Creatinine Ratio 18.1, Glucose 194 H, Calcium 8.3 L Current Medications Acetaminophen (Tylenol) 650 mg PO Q6H PRN PRN PRN Reason: Mild Pain (scale 0-3)/T>100.7 Al Hydroxide/Mg Hydroxide (Mylanta Ii) 30 ml PO Q6H PRN PRN PRN Reason: Gastric burning Albuterol Sulfate (Ventolin Aerosols) 2.5 mg INHALATION Q2H PRN PRN PRN Reason: SHORTNESS OF BREATH Albuterol/Ipratropium (Duoneb) 3 ml INHALATION Q4H.RT [facility] Last Admin: 11/13/17 03:40 Dose: 3 ml Aspirin (Ecotrin) 81 mg PO QHS [facility] Last Admin: 11/12/17 21:30 Dose: 81 mg Atorvastatin Calcium (Lipitor) 5 mg PO QHS [facility] Last Admin: 11/12/17 21:33 Dose: 5 mg Azelastine HCl (Astelin) 1 spray NASAL BID [facility] Last Admin: 11/12/17 21:30 Dose: 1 spray Dextrose (D50w Syringe) 0 gm IV X1 PRN; Protocol PRN Reason: Hypoglycemia Dicyclomine HCl (Bentyl) 20 mg PO TID PRN PRN Reason: DIARRHEA Diltiazem HCl (Cardizem Cd) 360 mg PO DAILY [facility] Enoxaparin Sodium (Lovenox) 120 mg 1 mg/kg (120 mg) SC Q12@0600,1800 [facility] Last Admin: 11/13/17 06:26 Dose: 120 mg Famotidine (Pepcid) 20 mg PO BID [facility] Last Admin: 11/12/17 21:31 Dose: 20 mg Fluoxetine HCl (Prozac) 40 mg PO DAILY [facility] Furosemide (Lasix) 20 mg PO BIDLX [facility] Last Admin: 11/12/17 21:29 Dose: 20 mg Gabapentin (Neurontin) 600 mg PO TIDCM [facility] Glucagon () 1 mg IM .X1 PRN PRN Reason: Hypoglycemia Guaifenesin (Mucinex) 1,200 mg PO BID [facility] Last Admin: 11/12/17 21:34 Dose: 1,200 mg Hydralazine HCl (Apresoline) 10 mg IV Q4H PRN PRN PRN Reason: SBP > 160 Insulin Aspart (Novolog Flexpen (Bkc)) 0 units SC ACHS [facility] PRN Reason: Protocol Last Admin: 11/12/17 21:34 Dose: 2 units Insulin Aspart (Novolog Flexpen (Bkc)) 25 units SC TIDCM [facility] Insulin Detemir (Levemir (Bkc)) 50 units SC BID [facility] Last Admin: 11/12/17 21:30 Dose: 50 units Lactobacillus Acidophilus (Acidophilus) 1 tablet PO DAILY [facility] Loratadine (Claritin) 5 mg PO DAILY [facility] Magnesium Hydroxide (Milk Of Magnesia) 30 ml PO DAILY PRN PRN PRN Reason: Constipation Methylprednisolone (Solu-Medrol) 40 mg IV Q8 [facility] Last Admin: 11/13/17 06:26 Dose: 40 mg Montelukast Sodium (Singulair) 10 mg PO DAILY [facility] Non-Formulary Medication (Moexipril/Hydrochlorothiazide [Moexipril-Hctz 7.5-12.5 Mg Tab]) 1 each PO BID [facility] Ondansetron HCl (Zofran) 4 mg IV Q8H PRN PRN PRN Reason: NAUSEA Oxycodone HCl (Oxyir) 5 - 10 mg PO Q4H PRN PRN PRN Reason: MOD-SEVERE PAIN (4-10/10) Potassium Chloride (K-Dur) 10 meq PO BID [facility] Last Admin: 11/12/17 21:30 Dose: 10 meq Promethazine HCl (Phenergan (Ll)) 12.5 mg IV Q6H PRN PRN PRN Reason: NAUSEA/VOMITING Senna/Docusate Sodium (Senokot-S, Nia-Colace) 2 tablet PO BID [facility] Last Admin: 11/12/17 21:32 Dose: 2 tablet Sodium Chloride () 5 - 30 ml IV UD PRN PRN Reason: SALINE FLUSH Last Admin: 11/12/17 18:29 Dose: 10 ml Tizanidine HCl (Zanaflex) 4 mg PO BID [facility] Last Admin: 11/12/17 21:33 Dose: 4 mg Warfarin Sodium (Coumadin (Pbkc)) 4 mg PO DAILY@1700 [facility] Assessment/Plan Active and Suspected Problems (Last Reviewed 11/10/17 @ 16:17 by Luly Cheatham NP-C) Acute respiratory failure (Acute) The patient is a 57 y/o F w/ PMHx: Chronic Asthma, Anxiety and Depression, Hyperlipidemia, Hypertension, History of PE and DVT on chronic coumadin therapy, Morbid Obesity, CHELSEY on q HS BIPAP, Diabetes mellitus type II, CAD, Diastolic CHF, GERD who presents to the [facility] ED per Pulmonary Office recommendation w/ recent in office sputum noted to be unremarkable upon review, recent 11/10/17 + influenza A status w/ recent completion Levaquin 10 day regimen with 2 week history of ongoing dyspnea, progressively worsening with elevated T up to 103. (1) Acute Hypoxic Respiratory Failure secondary to General Malaise, Cough, Fever, General Debility, Dyspnea w/ Acute on Chronic Asthma Exacerbation secondary to Influenza A Viral Syndrome: CXR in the ED w/ chronic changes, no obvious infiltrate, recent Levaquin 10 day regimen. Admission CBC w/ no marked WBC or shift noted. 11/10/17 Influenza A positive. No indication for tamflu given length of symptoms. Initially admitted to ID per Swing, upon evaluation status severe appearing w/ increased RR, accessory muscle usage, audible wheezing w/ evidence acute hypoxic respiratory failure, transferred to the ICU, ABG obtained, notable for only hypoxia, maintained on BIPAP with improvement, continue ATC duonebs, PRN albuterol, IV solumedrol with predisone transition once appropriate, HOB, IS parameters. Pulmonary/ICU consulted, following. Given improvement will transition out of the ICU. (2) History of PE, DVT with Subtherapeutic INR: Maintained on anticoagulation, INR admission 1.1, subtherapeutic, administered 10 mg po x 1 in the ED, 11/13/17 INR 1.3, continue overlap therapeutic lovenox w/ coumadin until INR appropriate. (3) Diabetes mellitus type II: Hold oral home regimen, continue home insulin regimen, ADA diet, accu checks w/ ISS. (4) Morbid Obesity: Weight loss and lifestyle changes encouraged, nutrition consulted. (5) CHELSEY: q HS BIPAP. (6) Hypertension: Continue home regimen including Cardizem, Lasix, ACEI/HCTZ, PRN hydralazine. (7) Hyperlipidemia: Continue home statin regimen. (8) Diastolic CHF: CXR does not appear marked congested, compensated, maintain on coumadin, asa, statin, lasix, ACEI, not on BB secondary to underlying COPD/Asthma likely, gently hydrated. (9) GERD: Famotidine. (10) DVT prophylaxis: SCDs, coumadin w/ INR trending w/ overlapping therapeutic lovenox given subtherapeutic. (11) FULL CODE Correction: Per review by Dr. Gallagher, patient does not have COPD, only Asthmatic. Code Visit Inpatient E&M: 14885 Subs Hosp L2
[2017-11-13 06:36] LABS: Bedside Glucose 191 mg/dL (70-110)
--- NOTE | 2017-11-13 06:47 | PCM.CON.CC ---
Reason for Consult Date of Consultation: 11/13/17 Reason for Consultation: Respiratory failure History of Present Illness: The patient is a 57-year-old female, with a history as outlined below, who presented to the emergency department on November 12 after failed outpatient treatment for influenza. The patient has a history of poorly controlled asthma, for which she follows with Dr. Lui on an outpatient basis. The patient was referred previously to [facility] in [place], during which time she was underwent an extensive workup. She was felt to have underlying asthma, complicated by her morbid obesity and gastroesophageal reflux, in addition to known underlying allergies. She reports that she currently follows with ENT for immunotherapy, but has missed her last several appointments. She denies keeping any animals pets in her home environment. She is currently being maintained on a triple therapy inhaler regimen with Symbicort and Spiriva. She is also on treatment for allergic rhinitis with Azelastine and Singulair. She reports that despite frequent aerosol treatments and prednisone initiated in her home environment, she continued to experience a great deal of shortness of breath and wheezing. IgE level in August 2015 was noted to be 34. Both present and recent CBC differentials have never demonstrated any peripheral eosinophilia. On November 10, the patient was evaluated by her nurse practitioner in the pulmonary medicine clinic. A sputum culture and rapid influenza screen were obtained. Sputum culture only revealed mixed normal respiratory jorge alberto. Rapid influenza screen was positive for influenza A. She, at that time, was outside of the window to initiate therapy with Tamiflu. Therefore, she was started on a prolonged steroid taper. Pulmonary function testing last completed in May 2015 were grossly within normal limits. The patient has no evidence of COPD based upon her breathing tests. 6 minute walk test last completed in March 2016 revealed no need for supplemental oxygen. Polysomnogram completed in January 2016 revealed evidence of obstructive sleep apnea for which it was recommended that the patient be placed on bilevel therapy with a pressure setting of 23/17 cm of water with humidification. Surface echocardiogram completed in August 2015 revealed evidence of a hyperdynamic LV with an ejection fraction of 75%. On presentation to the emergency department, the patient was noted to be afebrile hemodynamically stable. She was initially documented to be saturating 96% on room air. Laboratory evaluation revealed no evidence of a leukocytosis. INR was noted to be 1.1. Arterial blood gas on room air was grossly within normal limits. Chemistry profile was unremarkable. Troponin was negative. MRSA screen was negative. Plain film chest x-ray revealed a mild degree of pulmonary vascular congestion. No focal infiltrate was identified. For unclear reasons the patient was placed on BiPAP and transferred to the medical intensive care unit for ongoing management. Overnight, the patient was maintained on her home BiPAP settings. She was taken off of noninvasive positive pressure ventilation early this morning and is currently maintaining appropriate oxygen saturations on 2 L via nasal cannula. Past Medical History Past Medical History (Chronic Problems): Chronic Problems (Last Reviewed 11/10/17 @ 16:17 by Luly Cheatham NP-C) Hyperlipidemia (Chronic) History of pulmonary embolism (Chronic) Personal history of anaphylaxis (Chronic) Chronic airway obstruction, not elsewhere classified (Chronic) Sinusitis (Chronic) GERD (gastroesophageal reflux disease) (Chronic) CAD (coronary artery disease) (Chronic) Bilateral carotid bruits (Chronic) Body mass index 45.0-49.9, adult (Chronic) Abnormal echocardiogram (Chronic) Shortness of breath (Chronic) Asthma (Chronic) Benign hypertension (Chronic) Type 2 diabetes mellitus (Chronic) Morbid obesity (Chronic) History of pulmonary embolism (Chronic) CHELSEY treated with BiPAP (Chronic) COPD (chronic obstructive pulmonary disease) (Chronic) Diastolic heart failure (Chronic) Hypertension (Chronic) Allergies clindamycin Allergy (Verified 11/12/17 14:55) Rash erythromycin base [Erythromycin Base] Allergy (Verified 11/12/17 14:55) Rash omalizumab [From Xolair] Allergy (Verified 11/12/17 14:55) Chest tightness Penicillins Allergy (Verified 11/12/17 14:55) Rash sulfamethoxazole [From Bactrim] Allergy (Verified 11/12/17 14:55) Chest tightness trimethoprim [From Bactrim] Allergy (Verified 11/12/17 14:55) Chest tightness Home Medications: Ambulatory Orders Medication Instructions Recorded Budesonide/Formoterol 160/4.5 2 puff INHALATION BID 01/26/14 [Symbicort 160/4.5 Mcg Inhaler (SP)] Clobetasol Propionate/Emoll 15 gm TP BID PRN PRN 01/26/14 [Clobetasol Emollient 0.05% Crm] Diltiazem HCl [Cardizem Cd] 360 mg PO DAILY 01/26/14 Fluoxetine [Prozac] 40 mg PO DAILY 01/26/14 Ipratropium/Albuterol Sulfate 3 ml INHALATION Q4H PRN PRN 01/26/14 [Duoneb] Tiotropium [place] [Spiriva 18 MCG] 1 puff INHALATION DAILY 01/26/14 Epinephrine [Epi Pen] 0.3 mg IM X1 PRN 08/08/15 Tizanidine HCl 4 mg PO PRN PRN 11/12/15 Albuterol Aerosols [Ventolin 2.5 mg INHALATION BID PRN 01/06/16 Aerosols] Aspirin [Adult Low Dose Aspirin EC] 81 mg PO QHS 01/06/16 Docusate Sodium [Colace] 100 mg PO BID 01/06/16 Fenofibrate [Lofibra] 80 mg PO DAILY 01/06/16 Furosemide [Lasix] 20 mg PO BIDLX 01/06/16 Gabapentin [Neurontin] 600 mg PO TID 01/06/16 Guaifenesin [Mucinex] 600 mg PO BID 01/06/16 Insulin Lispro [Humalog] 25 unit SQ ACHS 01/06/16 L.acidoph,Paracasei, B.lactis 1 each PO DAILY 01/06/16 [Probiotic] Levocetirizine Dihydrochloride 5 mg PO DAILY 01/06/16 [Xyzal] Montelukast [Singulair] 10 mg PO DAILY 01/06/16 Multivit-Min/Iron/Folic/Lutein 1 each PO DAILY 01/06/16 [Centrum Silver Women Tablet] Omeprazole [Prilosec] 40 mg PO DAILY 01/06/16 Pitavastatin Calcium [Livalo] 1 mg PO DAILY 01/06/16 Potassium Chloride [K-Dur] 10 meq PO BID 01/06/16 Ranitidine [Zantac] 150 mg PO QHS 01/06/16 Liraglutide [Victoza 2-Ron] 1.8 mg SQ DAILY 02/01/16 Warfarin [Coumadin] 9 mg PO DAILY@1700 02/01/16 Albuterol Inhaler [Ventolin Hfa 2 puff INHALATION Q4H PRN PRN 05/27/16 (SP)] Azelastine HCl [Astelin] 1 spray NASAL BID 05/27/16 Ca/D3/Mag/Zinc/Roly/Bello/Mgbor 1 each PO BID 05/27/16 [Caltrate 600+D3+Min Chew Tab] Inhaler, Assist Devices 1 each MC DAILY PRN PRN 05/27/16 [Aerochamber Plus Flow-Vu] Moexipril/Hydrochlorothiazide 1 each PO BID 05/27/16 [Moexipril-Hctz 7.5-12.5 mg Tab] Oxycodone HCl/Acetaminophen 1 - 2 tablet PO Q4H PRN PRN #20 03/27/17 [Percocet 5/325] tablet prednisone 10 mg tablet 10 mg PO QDAY #30 tab 11/10/17 Amitriptyline HCl 25 mg PO QHS 11/12/17 Dapagliflozin Propanediol [Farxiga] 10 mg PO DAILY 11/12/17 Insulin Glargine,Hum.rec.anlog 45 unit SQ QHS 11/12/17 [Lantus] Surgical History: appendectomy, herniorrhaphy, - - Cervical disc surgery, rotator cuff surgery, . Psychiatric History: Anxiety, Depression DEPOSITION REPORTER History: No pertinent DEPOSITION REPORTER history Lives: Spouse/ Significant Other Smoking Status: Never smoker Tobacco Use: Non-smoker Alcohol: None Drugs: None - *Family History Maternal History Items: Diabetes Paternal History Items: Heart Disease Review of Systems Constitutional: Reports: Chills, Fever Eyes: Denies: Blurred vision, Double vision HEENT: Reports: Post Nasal Drip, Sinus Drainage Cardiovascular: Reports: Chest Tightness Respiratory: Reports: Cough, Shortness of Breath, Wheezing Gastrointestinal: Denies: Abdominal Pain, Nausea, Vomiting Genitourinary: Denies: Dysuria Musculoskeletal: Denies: Joint Pain, Joint Tenderness Skin: Denies: Rash, Wounds Neurological: Denies: Numbness, Tingling, Focal weakness Psychiatric: Denies: Anxiety, Depression, Homicidal Ideations, Suicidal Ideations Hematologic/ Lymphatic: Reports: Hx of blood clot. Denies: Easy Bruising, Easy Bleeding Patient Problems: Active and Suspected Problems (Last Reviewed 11/10/17 @ 16:17 by Luly Cheatham NP-C) Acute respiratory failure (Acute) Objective: The patient's most recent lab work, culture data and imaging studies have all been personally reviewed. - Physical Exam General: Alert, Cooperative, No apparent distress, - - Morbidly obese. Resting comfortably in bed. HEENT: Atraumatic, PERRLA, Normocephalic Oral: Moist Mucosa, No Gingival or Mucosal Lesions/ Ulcerations Neck: Supple, No Nodes, Trachea Midline, - - Large neck circumference with redundant soft tissue. Lungs: No rhonchi, No rales, Diminished, Wheezes, - - No conversational dyspnea. Speaking in full sentences. Cardiovascular: Regular rate, Regular Rhythm, Normal S1, Normal S2, No murmurs Abdomen: Bowel Sounds Present, Soft, Non Tender, Obese Extremities: No clubbing, No cyanosis, No edema Skin: No rashes, No breakdown Musculoskeletal: No Tenderness to Palpation of Joints or Extremities, No Muscle Wasting Lymphatic: No Cervical, Supraclavicular, or Inguinal Adenopathy Neurological: Neuro grossly intact Psych/Mental Status: Alert and oriented to time, place, person, mood and affect Vital Signs Temp Pulse Resp BP Pulse Ox 97.6 F L 79 16 127/78 H 99 11/13/17 06:00 11/13/17 06:00 11/13/17 06:00 11/13/17 06:00 11/13/17 06:00 Oxygen Flow Rate 2 Oxygen Delivery Method Nasal Cannula Weight: 238 lb 8.642 oz Body Mass Index (BMI) 43.5 Intake and Output for Last 24 Hours 11/11/17 11/12/17 11/13/17 23:59 23:59 23:59 Intake Total 753 / 753 599 / 599 Output Total 1200 / 1200 1800 / 1800 Balance -447 / -447 -1201 / -1201 Laboratory Tests Past 24 Hrs 11/12/17 11/12/17 11/13/17 18:05 18:23 04:20 WBC 5.8 RBC 4.82 Hgb 14.2 Hct 43.2 MCV 89.6 MCH 29.5 MCHC 32.9 RDW 16.2 H RDW Differential 52.8 H Plt Count 260 MPV 10.8 Immature Gran % (Auto) 0.300 Neut % (Auto) 80.7 H Lymph % (Auto) 15.9 L [place] % (Auto) 2.4 Eos % (Auto) 0.0 Baso % (Auto) 0.7 Absolute Neuts (auto) 4.7 Absolute Lymphs (auto) 0.92 Total Counted Not Reportable PT INR Specimen Type ART Sample Site R Radial pH 7.48 H Bicarbonate Actual 26.2 H POC Total CO2 27 Base Excess 3 H O2 Saturation 96 ABG pCO2 35.5 ABG pO2 74 L Riccardo Test POS O2 Delivery Device Room Air Blood Gas Notified Whom [facility] Blood Gas Notified Time 1815 Sodium Potassium Chloride Carbon Dioxide Anion Gap BUN Creatinine Estim Creat Clear Calc Est GFR (MDRD) Af Amer Est GFR (MDRD) Non-Af BUN/Creatinine Ratio Glucose Calcium MRSA (PCR) Negative 11/13/17 11/13/17 04:20 04:20 WBC RBC Hgb Hct MCV MCH MCHC RDW RDW Differential Plt Count MPV Immature Gran % (Auto) Neut % (Auto) Lymph % (Auto) [place] % (Auto) Eos % (Auto) Baso % (Auto) Absolute Neuts (auto) Absolute Lymphs (auto) Total Counted PT 15.7 H INR 1.3 Specimen Type Sample Site pH Bicarbonate Actual POC Total CO2 Base Excess O2 Saturation ABG pCO2 ABG pO2 Riccardo Test O2 Delivery Device Blood Gas Notified Whom Blood Gas Notified Time Sodium 143 Potassium 3.7 Chloride 106 Carbon Dioxide 25.0 Anion Gap 12 BUN 13 Creatinine 0.72 Estim Creat Clear Calc 73.55 Est GFR (MDRD) Af Amer 107 Est GFR (MDRD) Non-Af 88 BUN/Creatinine Ratio 18.1 Glucose 194 H Calcium 8.3 L MRSA (PCR) POC Glucose 11/13/17 11/12/17 06:23 21:18 POC Glucose 191 H 216 H Clinical Impression(s) from Imaging Studies Chest X-Ray 11/12/17 15:13 IMPRESSION: Findings in keeping with a mild degree of vascular congestion. Electronically Signed: Lon Fuchs MD at 15:41 EST Tel [phone], Service support , Assessment/Plan Active and Suspected Problems (Last Reviewed 11/10/17 @ 16:17 by Luly Cheatham NP-C) Acute respiratory failure (Acute) RECOMMENDATIONS: 1. Continue BiPAP therapy per home regimen nightly and with naps at 23/17 cmH2O with humidification. 2. Continue scheduled aerosol regimen and IV steroids. Continue IV steroids yet today. 3. Continue Azelastine and Singulair 4. No need for antibiotics or Tamiflu 5. Encourage incentive spirometer use and mobilize patient as tolerated 6. Perform walking oximetry prior to consideration for discharge from the hospital 7. The patient will require a prolonged steroid taper at discharge. IMPRESSIONS: 1. Acute asthma exacerbation secondary to influenza A Continue current supportive measures with scheduled aerosol treatments and IV steroids. The patient is currently maintaining appropriate oxygen saturations on room air while at rest. She will require a walking oximetry study prior to consideration for discharge from the hospital. We will plan to continue IV steroids for at least the next 24 hours. She will also require a prolonged steroid taper at discharge. Close outpatient follow-up in the pulmonary medicine clinic will be warranted. 2. History of obstructive sleep apnea Continue nocturnal bilevel therapy per home regimen with a pressure setting of 23/17 cm of water with humidification. 3. Personal history of atopy/allergic rhinitis Follow up with ENT on an outpatient basis for additional immunotherapy. Continue Singulair and Azelastine. 4. History of VTE Continue outpatient anticoagulation regimen. Check INR daily. 5. Morbid obesity/GERD/hypertension/diabetes/anxiety Complicates care, management, recovery and prognosis. Continue home medications as indicated. This note was generated with [employer] dictation software. It may contain incorrect words, spelling, and punctuation that were not noted in checking the note before signing. DISPOSITION: The patient is medically stable for transfer out of the intensive care unit. Code Visit Inpatient E&M: 34960 Init Hosp L3
[2017-11-13] MEDS: Gabapentin 300 MG Capsule 600 MG PO ×3 (08:09→16:49)
[2017-11-13] MEDS: Azelastine HCl NASAL.SRY 1 SPRAY NASAL ×2 (09:22→20:06)
[2017-11-13] MEDS: dilTIAZem CD 180 MG Capsule 360 MG PO (09:22)
[2017-11-13] MEDS: Furosemide 40 MG Tablet 20 MG PO ×2 (09:23→16:51)
[2017-11-13] MEDS: Montelukast 10 MG Tablet PO (09:24)
[2017-11-13] MEDS: tiZANidine HCl 2 MG Tablet 4 MG PO ×2 (09:25→20:04)
[2017-11-13] MEDS: Famotidine 20 MG Tablet PO ×2 (09:25→20:05)
[2017-11-13] MEDS: guaiFENesin 1,200 MG Tablet 1200 MG PO ×2 (09:25→20:06)
[2017-11-13] MEDS: FLUoxetine 20 MG Capsule 40 MG PO (09:25)
[2017-11-13] MEDS: Senna/Docusate Sodium 1 Tablet 2 TABLET PO ×2 (09:26→20:05)
[2017-11-13] MEDS: Loratadine 10 MG Tablet 5 MG PO (09:26)
--- NOTE | 2017-11-13 10:32 | CASEMGMT ---
Addendum entered by Leah Hernandez 11/13/17 10:58: SW gave pt information from our financial dept for financial assistance, and gave pt a list of counseling agencies in the area. No further needs anticipated. HAYLIE Ordaz, KAYAK MAKER Original Note: See assessment. SW spoke w/pt in room, pt lives home w/ who is wheelchair bound. has waiver services, and they help with fret saw operator on occasion. They have been helping lately as pt has been ill. Pt sees Dr. Lui, sees an ENT also as she has allergies. Pt plans to return home at discharge. SW inquired about anxiety, pt states has anxiety and depression, reports they are controlled at present, is on meds for both. Pt is not in counseling but has been in the past, was in counseling for 10 years. She states when her blood sugar drops she gets anxious, states 3 family members from diabetes. She states she is determined to outlive them, they at 60, 62, and 65. SW inquired if she would like resources for counseling, pt states she would. Pt then asked about her bill, states she is no longer eligible for Medicaid as she got a cost of living increase. She states she and her are on a fixed income, and she is going to struggle to afford the $415/day copay she will have from this hospitalization. She states her called and they do qualify for extra help w/Medicare, but this only covers the premiums. SW explained will call our financial dept. SW called, spoke w/[employer]. She states pt can complete a couple of the applications for assist, she brought them up to this SW, SW will bring them to pt. HAYLIE Ordaz, KRYS
[2017-11-13 11:10] LABS: Bedside Glucose 177 mg/dL (70-110)
[2017-11-13] MEDS: 0.9% NaCl Peripheral Flush Adult/Peds IV ×2 (15:20→20:17)
[2017-11-13 17:06] LABS: Bedside Glucose 184 mg/dL (70-110)
[2017-11-13] MEDS: Atorvastatin Calcium 10 MG Tablet 5 MG PO (20:05)
[2017-11-13] MEDS: Aspirin E.C. 81 MG Tablet PO (20:06)
[2017-11-13 23:06] LABS: Bedside Glucose 262 mg/dL (70-110)
[2017-11-14] VITALS (16 sets, daily range): BP systolic 137–152; BP diastolic 70–90; PULSE 62–79; RESP 12–20; TEMP 36.4–37.2; O2SAT 93–100
[2017-11-14] MEDS: Ipratropium/Albuterol Sulfate 3 ML AMPUL.NEB INHALATION ×6 (02:59→23:10)
[2017-11-14] MEDS: Enoxaparin 120 MG/0.8 ML Syringe SC ×2 (05:36→17:27)
[2017-11-14 06:41] LABS: International Normalized Ratio 1.6
[2017-11-14 06:46] LABS: Anion Gap 11 (5-15); BUN 17 mg/dL (7-18); BUN/Creat Ratio 26.6 RATIO (10-20); Calcium,Total 8.7 mg/dL (8.5-10.1); Chloride 106 mmol/L (98-107); Creatinine, Serum 0.64 mg/dL (0.55-1.02); EST Glomerular Filtration Rate 101 mL/min (>60); Est Glom Filt Rate - Afr Amer 123 mL/min (>60); Estimated Creatinine Clearance 82.74 ml/min; Glucose 260 mg/dL (70-110); Potassium 4.1 mmol/L (3.5-5.1); Sodium Level 142 mmol/L (136-145)
[2017-11-14 06:48] LABS: Absolute Lymphocyte Count 1.03 X10^3/ul (0.83-4.51); Absolute Neutrophil Count 7.9 X10^3/uL (2.0-7.7); Basophil# 0.02 X10^3/uL; Basophil% 0.2 % (0-1); Hematocrit 43.7 % (37-47); Hemoglobin 13.7 g/dl (12.0-15.0); Lymphocyte # 1.03 X10^3/ul (4.0); Lymphocyte % 10.7 % (19-41); Mean Corp Hgb Conc 31.4 g/gl (32-36); Mean Corpuscular Hgb 28.5 pg (27.0-32.0); Mean Corpuscular Volume 90.9 fL (81-99); Mean Platelet Vol. 10.8 fl (6.2-12.0); Monocyte# 0.65 X10^3/uL; Monocyte% 6.7 % (0-10); Neutrophil # 7.92 X10^3/uL (2.7-7.7); Neutrophil % 82.1 % (47-70); Platelet Count 247 K/mm3 (150-450); RBC Distribution Width CV 15.9 % (11.6-14.6); RBC Distribution Width SD 52.7 fl (35.1-43.9); Red Blood Count 4.81 M/mm3 (4.2-5.4); White Blood Count 9.7 K/mm3 (4.4-11.0)
[2017-11-14 06:49] LABS: POSITIVE COUNT NO; POSITIVE DIFFERENTIAL NO; POSITIVE MORPHOLOGY NO
[2017-11-14 06:56] LABS: Bedside Glucose 212 mg/dL (70-110)
--- NOTE | 2017-11-14 08:15 | PN_ITS ---
Patient Problems: Active and Suspected Problems (Last Reviewed 11/10/17 @ 16:17 by ADAM Pantoja) Acute respiratory failure (Acute) Influenza A (Acute) Chronic asthma with acute exacerbation (Acute) Subjective: Patient was seen and examined, sitting up in chair finishing her breakfast. She remains afebrile and hemodynamically stable. Notes significant subjective improvement in her breathing with less coughing and wheezing. She is not bringing up much sputum. She is wearing BiPAP at night. Patient maintaining appropriate saturations on room air. Objective: Chest x-ray showed mild degree of vascular congestion with no demonstrated pleural abnormality. Patient is influenza A positive. No leukocytosis. Lab work reviewed. Glucose is elevated but on IV steroids. - Physical Exam General: Alert, Oriented x3, Cooperative, No apparent distress, Well developed, Well nourished HEENT: Atraumatic, Normocephalic Oral: Moist Mucosa, No Gingival or Mucosal Lesions/ Ulcerations Neck: Supple, No Nodes, Trachea Midline Lungs: Diminished, - - Expiratory wheeze t/o and minimal rhonchi posteriorly Cardiovascular: Regular rate, Regular Rhythm, Normal S1, Normal S2, Murmur, No rub noted, No Gallop, - - occasional ectopic beats Abdomen: Bowel Sounds Present, Soft, Non Tender, Non-Distended, Obese Extremities: No clubbing, No cyanosis, No edema Skin: No rashes, No breakdown Musculoskeletal: No Tenderness to Palpation of Joints or Extremities Lymphatic: No Cervical, Supraclavicular, or Inguinal Adenopathy Neurological: Neuro grossly intact Psych/Mental Status: Alert and oriented to time, place, person, mood and affect Vital Signs Temp Pulse Resp BP Pulse Ox 97.5 F L 70 15 145/90 H 100 11/14/17 05:00 11/14/17 05:00 11/14/17 05:00 11/14/17 05:00 11/14/17 05:00 Oxygen Flow Rate 2 Oxygen Delivery Method Bi-pap Weight: 238 lb 8.642 oz Body Mass Index (BMI) 43.5 Intake and Output for Last 24 Hours 11/12/17 11/13/17 11/14/17 23:59 23:59 23:59 Intake Total 753 / 753 1899 / 1899 100 / 100 Output Total 1200 / 1200 1800 / 1800 Balance -447 / -447 99 / 99 100 / 100 Laboratory Tests Past 24 Hrs 11/14/17 11/14/17 11/14/17 05:25 05:25 05:25 WBC 9.7 RBC 4.81 Hgb 13.7 Hct 43.7 MCV 90.9 MCH 28.5 MCHC 31.4 L RDW 15.9 H RDW Differential 52.7 H Plt Count 247 MPV 10.8 Immature Gran % (Auto) 0.300 Neut % (Auto) 82.1 H Lymph % (Auto) 10.7 L [place] % (Auto) 6.7 Eos % (Auto) 0.0 Baso % (Auto) 0.2 Absolute Neuts (auto) 7.9 H Absolute Lymphs (auto) 1.03 Total Counted Not Reportable PT 18.0 H INR 1.6 Sodium 142 Potassium 4.1 Chloride 106 Carbon Dioxide 25.0 Anion Gap 11 BUN 17 Creatinine 0.64 Estim Creat Clear Calc 82.74 Est GFR (MDRD) Af Amer 123 Est GFR (MDRD) Non-Af 101 BUN/Creatinine Ratio 26.6 H Glucose 260 H Calcium 8.7 POC Glucose 11/14/17 11/13/17 11/13/17 06:48 23:00 16:46 POC Glucose 212 H 262 H 184 H 11/13/17 10:59 POC Glucose 177 H Assessment/Plan Active and Suspected Problems (Last Reviewed 11/10/17 @ 16:17 by Luly Cheatham WEB ARCHITECT-C) Acute respiratory failure (Acute) Influenza A (Acute) Chronic asthma with acute exacerbation (Acute) RECOMMENDATIONS: 1. Continue BiPAP therapy per home regimen nightly and with naps at 23/17 cmH2O with humidification. 2. Continue scheduled aerosol regimen 3. Continue Azelastine and Singulair 4. No need for antibiotics or Tamiflu 5. Continue IV steroids today, then transition to oral in the a.m. 5. Encourage incentive spirometer use and mobilize patient as tolerated 6. Perform walking oximetry prior to consideration for discharge from the hospital 7. The patient will require a prolonged steroid taper at discharge. IMPRESSIONS: 1. Acute asthma exacerbation secondary to influenza A Continue current supportive measures with scheduled aerosol treatments and IV steroids, likely okay to transition to oral steroids 11/15/17. The patient is currently maintaining appropriate oxygen saturations on room air while at rest. She will require a walking oximetry study prior to consideration for discharge from the hospital. We will plan to continue IV steroids for the next 24 hours. Patient notes improvement but does typically decline quickly if taken off IV steroids too soon. She will also require a prolonged steroid taper at discharge. Close outpatient follow-up in the pulmonary medicine clinic will be warranted. 2. History of obstructive sleep apnea Continue nocturnal bilevel therapy per home regimen with a pressure setting of 23/17 cm of water with humidification. 3. Personal history of atopy/allergic rhinitis Follow up with ENT on an outpatient basis for additional immunotherapy. Continue Singulair and Azelastine. 4. History of VTE Continue outpatient anticoagulation regimen. Check INR daily. 5. Morbid obesity/GERD/hypertension/diabetes/anxiety Complicates care, management, recovery and prognosis. Continue home medications as indicated. Insulin may need to be adjusted while on steroids as glucose is somewhat elevated. This note was generated with [employer] dictation software. It may contain incorrect words, spelling, and punctuation that were not noted in checking the note before signing.
[2017-11-14] MEDS: Gabapentin 300 MG Capsule 600 MG PO ×3 (09:11→17:23)
[2017-11-14] MEDS: Azelastine HCl NASAL.SRY 1 SPRAY NASAL ×2 (09:12→22:54)
[2017-11-14] MEDS: Loratadine 10 MG Tablet 5 MG PO (09:13)
[2017-11-14] MEDS: guaiFENesin 1,200 MG Tablet 1200 MG PO ×2 (09:14→23:49)
[2017-11-14] MEDS: Famotidine 20 MG Tablet PO ×2 (09:14→23:22)
[2017-11-14] MEDS: FLUoxetine 20 MG Capsule 40 MG PO (09:14)
[2017-11-14] MEDS: Montelukast 10 MG Tablet PO (09:15)
[2017-11-14] MEDS: tiZANidine HCl 2 MG Tablet 4 MG PO ×2 (09:15→23:46)
[2017-11-14] MEDS: dilTIAZem CD 180 MG Capsule 360 MG PO (09:20)
[2017-11-14] MEDS: Furosemide 40 MG Tablet 20 MG PO ×2 (09:22→17:25)
[2017-11-14] MEDS: Acetaminophen 325 MG Tablet 650 MG PO (09:29)
--- NOTE | 2017-11-14 09:45 | PCM.PN.HOSP ---
Patient Problems: Active and Suspected Problems (Last Updated 11/14/17 @ 08:47 by Tamika Whitley, LICENSED DIRECT ENTRY MIDWIFE-C) Acute respiratory failure (Acute) Influenza A (Acute) Chronic asthma with acute exacerbation (Acute) Subjective: Patient with no acute events overnight per self and per nursing report. She is breathing with much greater ease, off oxygen, BiPAP nightly, working with physical therapy this morning and progressing well. Discussed with pulmonary and patient with decision for continued IV steroids today with possible transition to oral prednisone in the morning and possible discharge to home pending reevaluation to which patient is amenable. Patient denies fevers, chills, nausea, emesis, abdominal pain, chest pain or recurrent or worsened dyspnea. Objective: Physical Examination: General: awake, alert, oriented x 3 and cooperative, seated upright bed, NAD, improved appearance. Skin: normal color, turgor, no icterus, cyanosis. HEENT: AT/NC, EOMI, PERRLA, improved MMM. Lungs: Improved BS throughout, mildly diminished bases, no current wheezing, effort improved. Heart: Regular rate and rhythm; no gallop, rub audible. Abdomen: soft, morbidly obese, NTTP, ND, normal BS. Extremities: no cyanosis, clubbing, or edema. Neurological: patient awake, alert, oriented x 3; cognitive function intact; pupils equally reactive to light and accomodation; cranial nerves II-XII grossly normal, moving all 4 extremities, no focal deficits, strength improved, mildly to moderately globally decreased. Psychiatric: affect appears normal, no acute evidence of depressive or anxiety feelings. Vitals/I&O's: Vital Signs Temp Pulse Resp BP Pulse Ox 98.7 F 75 16 152/84 H 96 11/14/17 09:18 11/14/17 09:18 11/14/17 09:18 11/14/17 09:18 11/14/17 09:18 Oxygen Flow Rate 2 Oxygen Delivery Method Room Air Weight: 238 lb 8.642 oz Body Mass Index (BMI) 43.5 Intake and Output for Last 24 Hours 11/12/17 11/13/17 11/14/17 23:59 23:59 23:59 Intake Total 753 / 753 1899 / 1899 460 / 460 Output Total 1200 / 1200 1800 / 1800 Balance -447 / -447 99 / 99 460 / 460 Laboratory Results 11/13/17 10:59: POC Glucose 177 H 11/13/17 16:46: POC Glucose 184 H 11/13/17 23:00: POC Glucose 262 H 11/14/17 05:25: WBC 9.7, RBC 4.81, Hgb 13.7, Hct 43.7, MCV 90.9, MCH 28.5, MCHC 31.4 L, RDW 15.9 H, RDW Differential 52.7 H, Plt Count 247, MPV 10.8, Immature Gran % (Auto) 0.300, Neut % (Auto) 82.1 H, Lymph % (Auto) 10.7 L, [place] % (Auto) 6.7, Eos % (Auto) 0.0, Baso % (Auto) 0.2, Absolute Neuts (auto) 7.9 H, Absolute Lymphs (auto) 1.03, Total Counted Not Reportable 11/14/17 05:25: PT 18.0 H, INR 1.6 11/14/17 05:25: Sodium 142, Potassium 4.1, Chloride 106, Carbon Dioxide 25.0, Anion Gap 11, BUN 17, Creatinine 0.64, Estim Creat Clear Calc 82.74, Est GFR (MDRD) Af Amer 123, Est GFR (MDRD) Non-Af 101, BUN/Creatinine Ratio 26.6 H, Glucose 260 H, Calcium 8.7 11/14/17 06:48: POC Glucose 212 H Current Medications Acetaminophen (Tylenol) 650 mg PO Q6H PRN PRN PRN Reason: Mild Pain (scale 0-3)/T>100.7 Last Admin: 11/14/17 09:29 Dose: 650 mg Al Hydroxide/Mg Hydroxide (Mylanta Ii) 30 ml PO Q6H PRN PRN PRN Reason: Gastric burning Albuterol Sulfate (Ventolin Aerosols) 2.5 mg INHALATION Q2H PRN PRN PRN Reason: SHORTNESS OF BREATH Albuterol/Ipratropium (Duoneb) 3 ml INHALATION Q4H.RT [facility] Last Admin: 11/14/17 07:05 Dose: 3 ml Aspirin (Ecotrin) 81 mg PO QHS [facility] Last Admin: 11/13/17 20:06 Dose: 81 mg Atorvastatin Calcium (Lipitor) 5 mg PO QHS [facility] Last Admin: 11/13/17 20:05 Dose: 5 mg Azelastine HCl (Astelin) 1 spray NASAL BID [facility] Last Admin: 11/14/17 09:12 Dose: 1 spray Dextrose (D50w Syringe) 0 gm IV X1 PRN; Protocol PRN Reason: Hypoglycemia Dicyclomine HCl (Bentyl) 20 mg PO TID PRN PRN Reason: DIARRHEA Diltiazem HCl (Cardizem Cd) 360 mg PO DAILY [facility] Last Admin: 11/14/17 09:20 Dose: 360 mg Enoxaparin Sodium (Lovenox) 120 mg 1 mg/kg (120 mg) SC Q12@0600,1800 [facility] Last Admin: 11/14/17 05:36 Dose: 120 mg Famotidine (Pepcid) 20 mg PO BID [facility] Last Admin: 11/14/17 09:14 Dose: 20 mg Fluoxetine HCl (Prozac) 40 mg PO DAILY [facility] Last Admin: 11/14/17 09:14 Dose: 40 mg Furosemide (Lasix) 20 mg PO BIDLX [facility] Last Admin: 11/14/17 09:22 Dose: 20 mg Gabapentin (Neurontin) 600 mg PO TIDCM [facility] Last Admin: 11/14/17 09:11 Dose: 600 mg Glucagon () 1 mg IM .X1 PRN PRN Reason: Hypoglycemia Guaifenesin (Mucinex) 1,200 mg PO BID [facility] Last Admin: 11/14/17 09:14 Dose: 1,200 mg Hydralazine HCl (Apresoline) 10 mg IV Q4H PRN PRN PRN Reason: SBP > 160 Insulin Aspart (Novolog Flexpen (Bkc)) 0 units SC ACHS [facility] PRN Reason: Protocol Last Admin: 11/14/17 09:11 Dose: 2 units Insulin Aspart (Novolog Flexpen (Bkc)) 25 units SC TIDCM [facility] Last Admin: 11/14/17 09:11 Dose: 25 u Insulin Detemir (Levemir (Bkc)) 50 units SC BID [facility] Last Admin: 11/14/17 09:13 Dose: 50 units Lactobacillus Acidophilus (Acidophilus) 1 tablet PO DAILY [facility] Last Admin: 11/14/17 09:12 Dose: 1 tablet Loratadine (Claritin) 5 mg PO DAILY [facility] Last Admin: 11/14/17 09:13 Dose: 5 mg Magnesium Hydroxide (Milk Of Magnesia) 30 ml PO DAILY PRN PRN PRN Reason: Constipation Methylprednisolone (Solu-Medrol) 40 mg IV Q8 [facility] Last Admin: 11/14/17 05:36 Dose: 40 mg Montelukast Sodium (Singulair) 10 mg PO DAILY [facility] Last Admin: 11/14/17 09:15 Dose: 10 mg Non-Formulary Medication (Moexipril/Hydrochlorothiazide [Moexipril-Hctz 7.5-12.5 Mg Tab]) 1 each PO BID [facility] Ondansetron HCl (Zofran) 4 mg IV Q8H PRN PRN PRN Reason: NAUSEA Oxycodone HCl (Oxyir) 5 - 10 mg PO Q4H PRN PRN PRN Reason: MOD-SEVERE PAIN (-07/22) Potassium Chloride (K-Dur) 10 meq PO BID [facility] Last Admin: 11/14/17 09:13 Dose: 10 meq Promethazine HCl (Phenergan (Ll)) 12.5 mg IV Q6H PRN PRN PRN Reason: NAUSEA/VOMITING Senna/Docusate Sodium (Senokot-S, Nia-Colace) 2 tablet PO BID [facility] Last Admin: 11/14/17 09:15 Dose: Not Given Sodium Chloride () 5 - 30 ml IV UD PRN PRN Reason: SALINE FLUSH Last Admin: 11/13/17 20:17 Dose: 10 ml Tizanidine HCl (Zanaflex) 4 mg PO BID [facility] Last Admin: 11/14/17 09:15 Dose: 4 mg Warfarin Sodium (Coumadin (Pbkc)) 4 mg PO DAILY@1700 [facility] Last Admin: 11/13/17 16:50 Dose: 4 mg Assessment/Plan Active and Suspected Problems (Last Updated 11/14/17 @ 08:47 by Tamika Whitley, YEE-C) Acute respiratory failure (Acute) Influenza A (Acute) Chronic asthma with acute exacerbation (Acute) The patient is a 57 y/o F w/ PMHx: Chronic Asthma, Anxiety and Depression, Hyperlipidemia, Hypertension, History of PE and DVT on chronic coumadin therapy, Morbid Obesity, CHELSEY on q HS BIPAP, Diabetes mellitus type II, CAD, Diastolic CHF, GERD who presents to the [facility] ED per Pulmonary Office recommendation w/ recent in office sputum noted to be unremarkable upon review, recent 11/10/17 + influenza A status w/ recent completion Levaquin 10 day regimen with 2 week history of ongoing dyspnea, progressively worsening with elevated T up to 103. (1) Acute Hypoxic Respiratory Failure secondary to General Malaise, Cough, Fever, General Debility, Dyspnea w/ Acute on Chronic Asthma Exacerbation secondary to Influenza A Viral Syndrome, DOES NOT HAVE COPD: CXR in the ED w/ chronic changes, no obvious infiltrate, recent Levaquin 10 day regimen. Admission CBC w/ no marked WBC or shift noted. 11/10/17 Influenza A positive. No indication for tamflu given length of symptoms. Initially admitted to NH per Swing, upon evaluation status severe appearing w/ increased RR, accessory muscle usage, audible wheezing w/ evidence acute hypoxic respiratory failure, transferred to the ICU, ABG obtained, notable for only hypoxia, maintained on BIPAP with improvement with transition to NH w/ telemetry following, maintained on ATC duonebs, PRN albuterol, IV solumedrol continued today with possible 11/15/17 prednisone transition, HOB, IS parameters. Pulmonary/ICU consulted, following. PT, OT evaluation with improvement, ambulating in the halls. Will obtain oxygen testing for discharge planning. (2) History of PE, DVT with Subtherapeutic INR: Maintained on anticoagulation, INR admission 1.1, subtherapeutic, administered 10 mg po x 1 in the ED, 11/13/17 INR 1.3, continue overlap therapeutic lovenox w/ coumadin until INR appropriate. 11/14/17 INR 1.6. (3) Diabetes mellitus type II: Hold oral home regimen, continue home insulin regimen, ADA diet, accu checks w/ ISS. (4) Morbid Obesity: Weight loss and lifestyle changes encouraged, nutrition consulted. (5) CHELSEY: q HS BIPAP. (6) Hypertension: Continue home regimen including Cardizem, Lasix, ACEI/HCTZ, PRN hydralazine. (7) Hyperlipidemia: Continue home statin regimen. (8) Diastolic CHF: CXR does not appear marked congested, compensated, maintain on coumadin, asa, statin, lasix, ACEI, not on BB secondary to underlying COPD/Asthma likely, gently hydrated. (9) GERD: Famotidine. (10) DVT prophylaxis: SCDs, coumadin w/ INR trending w/ overlapping therapeutic lovenox given subtherapeutic. 11/14/17 INR 1.6. Code Visit Inpatient E&M: 84571 Subs Hosp L2
[2017-11-14] MEDS: oxyCODONE 5 MG Tablet PO (11:51)
[2017-11-14] MEDS: 0.9% NaCl Peripheral Flush Adult/Peds IV (15:14)
[2017-11-14 15:30] LABS: Bedside Glucose 333 mg/dL (70-110)
[2017-11-14] MEDS: HYDROCHLOROTHIAZIDE 12.5 MG CAPSULE PO (16:39)
[2017-11-14] MEDS: Lisinopril 10 MG Tablet PO (16:39)
[2017-11-14 16:46] LABS: Bedside Glucose 253 mg/dL (70-110)
[2017-11-14 22:56] LABS: Bedside Glucose 359 mg/dL (70-110)
[2017-11-14] MEDS: Atorvastatin Calcium 10 MG Tablet 5 MG PO (23:21)
[2017-11-14] MEDS: Aspirin E.C. 81 MG Tablet PO (23:22)
[2017-11-14] MEDS: Senna/Docusate Sodium 1 Tablet 2 TABLET PO (23:26)
[2017-11-15] VITALS (11 sets, daily range): BP systolic 136–145; BP diastolic 69–74; PULSE 61–76; RESP 12–20; TEMP 36.4–37.1; O2SAT 94–98
[2017-11-15] MEDS: Ipratropium/Albuterol Sulfate 3 ML AMPUL.NEB INHALATION ×3 (03:09→11:01)
[2017-11-15] MEDS: Albuterol 2.5 MG/3 ML VIAL.NEB. INHALATION (05:52)
[2017-11-15 06:56] LABS: Bedside Glucose 208 mg/dL (70-110)
--- NOTE | 2017-11-15 07:20 | PCM.PROGNOTE ---
Patient Problems: Active and Suspected Problems (Last Updated 11/14/17 @ 08:47 by Tamika Whitley, LAND SURVEY TECHNICIAN-C) Acute respiratory failure (Acute) Influenza A (Acute) Chronic asthma with acute exacerbation (Acute) Subjective: The patient was seen and examined at the bedside this morning. Events from the last 24 hours have been reviewed. The patient is currently afebrile, hemodynamically stable and maintaining appropriate oxygen saturations on room air. She does report interval improvement in her breathing quality since being admitted to the hospital. She is agreeable to transition to prednisone by mouth this morning. Objective: The patient's most recent lab work, culture data and imaging studies have all been personally reviewed. Sputum culture only revealed mixed normal respiratory jorge alberto. Rapid influenza screen was positive for influenza A. The patient has no evidence of COPD based upon her breathing tests. 6 minute walk test last completed in March 2016 revealed no need for supplemental oxygen. Polysomnogram completed in January 2016 revealed evidence of obstructive sleep apnea for which it was recommended that the patient be placed on bilevel therapy with a pressure setting of 23/17 cm of water with humidification. Surface echocardiogram completed in August 2015 revealed evidence of a hyperdynamic LV with an ejection fraction of 75%. - Physical Exam General: Alert, Oriented x3, Cooperative, No apparent distress HEENT: Atraumatic, PERRLA, Normocephalic Oral: Moist Mucosa, No Gingival or Mucosal Lesions/ Ulcerations Neck: Supple, No Nodes, Trachea Midline Lungs: - - Improved air movement bilaterally with wheezing noted on forced expiration. Cardiovascular: Regular rate, Regular Rhythm, Normal S1, Normal S2, No murmurs, No rub noted, No Gallop Abdomen: Bowel Sounds Present, Soft, Non Tender, Non-Distended, Obese Extremities: No clubbing, No cyanosis, No edema Skin: No rashes, No breakdown Musculoskeletal: No Tenderness to Palpation of Joints or Extremities, No Muscle Wasting Lymphatic: No Cervical, Supraclavicular, or Inguinal Adenopathy Neurological: Neuro grossly intact Psych/Mental Status: Alert and oriented to time, place, person, mood and affect Vital Signs Temp Pulse Resp BP Pulse Ox 97.5 F L 62 16 145/74 H 98 11/15/17 03:55 11/15/17 07:12 11/15/17 05:53 11/15/17 03:55 11/15/17 03:55 Oxygen Flow Rate [AMBULATING 0 on Room Air] Oxygen Flow Rate [At REST on 0 Room Air] Oxygen Flow Rate 2 Oxygen Delivery Method Bi-pap Weight: 238 lb 8.642 oz Body Mass Index (BMI) 43.5 Intake and Output for Last 24 Hours 11/13/17 11/14/17 11/15/17 23:59 23:59 23:59 Intake Total 1899 / 1899 1740 / 1740 1000 / 1000 Output Total 1800 / 1800 Balance 99 / 99 1740 / 1740 1000 / 1000 POC Glucose 11/15/17 11/14/17 11/14/17 06:50 22:51 16:37 POC Glucose 208 H 359 H 253 H 11/14/17 11:45 POC Glucose 333 H Clinical Impression(s) from Imaging Studies Chest X-Ray 11/12/17 15:13 IMPRESSION: Findings in keeping with a mild degree of vascular congestion. Electronically Signed: Lon Fuchs MD at 15:41 EST Tel [phone], Service support , Assessment/Plan Active and Suspected Problems (Last Updated 11/14/17 @ 08:47 by Tamika Whitley, YEE-C) Acute respiratory failure (Acute) Influenza A (Acute) Chronic asthma with acute exacerbation (Acute) RECOMMENDATIONS: 1. Transition IV steroids over to prednisone 40 mg daily by mouth. Recommend the following taper at discharge: 40 mg ?3 days, 30 mg ?3 days, 20 mg ?3 days, 10 mg ?3 days. 2. Continue to encourage incentive spirometer use and mobilize patient as tolerated. The patient was ambulatory in the hallway yesterday without exertional hypoxia. 3. Continue scheduled aerosol regimen 4. Please ensure that the patient has follow-up in the pulmonary medicine clinic with our nurse practitioner within 2 weeks of her discharge from the hospital. IMPRESSIONS: 1. Acute asthma exacerbation secondary to influenza A Continue current supportive measures with scheduled aerosol treatments and steroids. The patient will be transitioned to prednisone beginning this morning. Encourage incentive spirometer use and mobilize patient as tolerated. She will likely require a prolonged steroid taper at discharge along with close interval follow-up in the pulmonary medicine clinic. 2. History of obstructive sleep apnea Continue nocturnal bilevel therapy per home regimen with a pressure setting of 23/17 cm of water with humidification. 3. Personal history of atopy/allergic rhinitis Follow up with ENT on an outpatient basis for additional immunotherapy. Continue Singulair and Azelastine. 4. History of VTE Continue outpatient anticoagulation regimen. Check INR daily. This note was generated with [employer] Feed[employer] software. It may contain incorrect words, spelling, and punctuation that were not noted in checking the note before signing. Code Visit Inpatient E&M: 09778 Subs Hosp L2
[2017-11-15] MEDS: Gabapentin 300 MG Capsule 600 MG PO ×2 (08:37→11:06)
[2017-11-15] MEDS: Enoxaparin 120 MG/0.8 ML Syringe SC (08:40)
[2017-11-15] MEDS: Azelastine HCl NASAL.SRY 1 SPRAY NASAL (08:40)
[2017-11-15] MEDS: guaiFENesin 1,200 MG Tablet 1200 MG PO (08:41)
[2017-11-15] MEDS: Lisinopril 10 MG Tablet PO (08:41)
[2017-11-15] MEDS: HYDROCHLOROTHIAZIDE 12.5 MG CAPSULE PO (08:41)
[2017-11-15] MEDS: tiZANidine HCl 2 MG Tablet 4 MG PO (08:41)
[2017-11-15] MEDS: Senna/Docusate Sodium 1 Tablet 2 TABLET PO (08:42)
[2017-11-15] MEDS: FLUoxetine 20 MG Capsule 40 MG PO (08:43)
[2017-11-15] MEDS: Famotidine 20 MG Tablet PO (08:43)
[2017-11-15] MEDS: Loratadine 10 MG Tablet 5 MG PO (08:44)
[2017-11-15] MEDS: Furosemide 40 MG Tablet 20 MG PO (08:44)
[2017-11-15] MEDS: Montelukast 10 MG Tablet PO (08:44)
[2017-11-15] MEDS: dilTIAZem CD 180 MG Capsule 360 MG PO (08:45)
--- NOTE | 2017-11-15 09:17 | PCM.DC ---
- Discharge Diagnoses Current Active Problems: Current Active and Chronic Problems (Last Updated 11/14/17 @ 08:47 by CHAN PichardoC) Hyperlipidemia (Chronic) Acute respiratory failure (Acute) Influenza A (Acute) Asthma (Chronic) Benign hypertension (Chronic) Type 2 diabetes mellitus (Chronic) Morbid obesity (Chronic) History of pulmonary embolism (Chronic) CHELSEY treated with BiPAP (Chronic) Chronic asthma with acute exacerbation (Acute) (1) Acute Hypoxic Respiratory Failure secondary to General Malaise, Cough, Fever, General Debility, Dyspnea w/ Acute on Chronic Asthma Exacerbation secondary to Influenza A Viral Syndrome, DOES NOT HAVE COPD (2) History of PE, DVT with Subtherapeutic INR (3) Diabetes mellitus type II (4) Morbid Obesity (5) CHELSEY (6) Hypertension (7) Hyperlipidemia (8) Diastolic CHF (9) GERD You will use the following diet at home:: Calorie/Carbohydrate Controlled (specify 1200, 1400, etc) - 1800, Cardiac Your food should be the consistency of: Regular Your liquids should be the consistency of: Regular/Thin Discharge Activity: - - Please avoid aggressive activity until completed steroid taper and re-assessed per pulmonary and cleared. Avoid Asthma triggers including the changes in extreme temperature. May resume sexual activity in: 10-14 days Weight Bearing Status: Weight bearing as tolerated Call your doctor if you observe: Fever of 101 or Higher, Inability to urinate, Inability to have a bowel movement, Shortness of breath, Dizziness, Fainting spells, Chest pain, Uncontrolled pain Instructions: Understanding Asthma, Understanding Asthma Triggers, Caring for Your Inhaler, Using an Inhaler with a Spacer, Using an Inhaler Without a Spacer, Controlling Asthma Triggers: Irritants, Controlling Asthma Triggers: Allergens, Using a Nebulizer (Adult) Additional Instructions: Please continue to have routine INR checks and alterations of your coumadin per your managing physician to achieve therapeutic dosing. Upon presentation your INR was below the desired level but improved during the admission. Please have repeat level in 1-2 days and review this with your physician. Allergies/Adverse Reactions: Allergies clindamycin Allergy (Verified 11/12/17 14:55) Rash erythromycin base [Erythromycin Base] Allergy (Verified 11/12/17 14:55) Rash omalizumab [From Xolair] Allergy (Verified 11/12/17 14:55) Chest tightness Penicillins Allergy (Verified 11/12/17 14:55) Rash sulfamethoxazole [From Bactrim] Allergy (Verified 11/12/17 14:55) Chest tightness trimethoprim [From Bactrim] Allergy (Verified 11/12/17 14:55) Chest tightness Medications to take at Discharge Budesonide/Formoterol 160/4.5 [Symbicort 160/4.5 Mcg Inhaler (SP)] 2 puff INHALATION BID 01/26/14 Clobetasol Propionate/Emoll [Clobetasol Emollient 0.05% Crm] 15 gm TP BID PRN PRN 01/26/14 Diltiazem HCl [Cardizem Cd] 360 mg PO DAILY 01/26/14 Fluoxetine [Prozac] 40 mg PO DAILY 01/26/14 Tiotropium [place] [Spiriva 18 MCG] 1 puff INHALATION DAILY 01/26/14 Epinephrine [Epi Pen] 0.3 mg IM X1 PRN 08/08/15 Tizanidine HCl 4 mg PO PRN PRN 11/12/15 Aspirin [Adult Low Dose Aspirin EC] 81 mg PO QHS 01/06/16 Docusate Sodium [Colace] 100 mg PO BID 01/06/16 Fenofibrate [Lofibra] 80 mg PO DAILY 01/06/16 Furosemide [Lasix] 20 mg PO BIDLX 01/06/16 Gabapentin [Neurontin] 600 mg PO TID 01/06/16 Guaifenesin [Mucinex] 600 mg PO BID 01/06/16 Insulin Lispro [Humalog] 25 unit SQ ACHS 01/06/16 L.acidoph,Paracasei, B.lactis [Probiotic] 1 each PO DAILY 01/06/16 Levocetirizine Dihydrochloride [Xyzal] 5 mg PO DAILY 01/06/16 Montelukast [Singulair] 10 mg PO DAILY 01/06/16 Multivit-Min/Iron/Folic/Lutein [Centrum Silver Women Tablet] 1 each PO DAILY 01/06/16 Omeprazole [Prilosec] 40 mg PO DAILY 01/06/16 Pitavastatin Calcium [Livalo] 1 mg PO DAILY 01/06/16 Potassium Chloride [K-Dur] 10 meq PO BID 01/06/16 Ranitidine [Zantac] 150 mg PO QHS 01/06/16 Liraglutide [Victoza 2-Ron] 1.8 mg SQ DAILY 02/01/16 Warfarin [Coumadin] 9 mg PO DAILY@1700 02/01/16 Albuterol Inhaler [Ventolin Hfa] 2 puff INHALATION Q4H PRN PRN 05/27/16 Azelastine HCl [Astelin] 1 spray NASAL BID 05/27/16 Ca/D3/Mag/Zinc/Roly/Bello/Mgbor [Caltrate 600+D3+Min Chew Tab] 1 each PO BID 05/27/16 Inhaler, Assist Devices [Aerochamber Plus Flow-Vu] 1 each MC DAILY PRN PRN 05/27/16 Moexipril/Hydrochlorothiazide [Moexipril-Hctz 7.5-12.5 mg Tab] 1 each PO BID 05/27/16 Oxycodone HCl/Acetaminophen [Percocet 5-325] 1 - 2 tablet PO Q4H PRN PRN #20 tablet 03/27/17 Amitriptyline HCl 25 mg PO QHS 11/12/17 Dapagliflozin Propanediol [Farxiga] 10 mg PO DAILY 11/12/17 Insulin Glargine,Hum.rec.anlog [Lantus] 45 unit SQ QHS 11/12/17 Albuterol Aerosols [Ventolin Aerosols] 2.5 mg INHALATION Q2H PRN PRN #1 box 11/15/17 Ipratropium/Albuterol Sulfate [Duoneb] 3 ml INHALATION Q4H.RT #1 box 11/15/17 Prednisone 10 mg PO UD #30 tab 11/15/17 The following prescriptions were given: Albuterol Aerosols [Ventolin Aerosols] 2.5 mg INHALATION Q2H PRN PRN #1 box PRN Reason: dyspnea, wheezing Ipratropium/Albuterol Sulfate [Duoneb] 3 ml INHALATION Q4H.RT #1 box Prednisone 10 mg PO UD #30 tab Primary Care Physician: Ophelia Soria DO [Primary Care Provider] - Please follow up with your Primary Care Physician in: Follow-up within 3-5 days to review admission. Please Follow Up With: Eber Gallagher DO When: Please follow-up with Pulmonary, may see Pulm PALEOBOTANIST in 1-2 weeks. Proposed Discharge Date: 11/15/17
--- NOTE | 2017-11-15 09:23 | DCINST_ITS ---
- Discharge Diagnoses Current Active Problems: Current Active and Chronic Problems (Last Updated 11/14/17 @ 08:47 by CHAN PichardoC) Hyperlipidemia (Chronic) Acute respiratory failure (Acute) Influenza A (Acute) Asthma (Chronic) Benign hypertension (Chronic) Type 2 diabetes mellitus (Chronic) Morbid obesity (Chronic) History of pulmonary embolism (Chronic) CHELSEY treated with BiPAP (Chronic) Chronic asthma with acute exacerbation (Acute) (1) Acute Hypoxic Respiratory Failure secondary to General Malaise, Cough, Fever , General Debility, Dyspnea w/ Acute on Chronic Asthma Exacerbation secondary to Influenza A Viral Syndrome, DOES NOT HAVE COPD (2) History of PE, DVT with Subtherapeutic INR (3) Diabetes mellitus type II (4) Morbid Obesity (5) CHELSEY (6) Hypertension (7) Hyperlipidemia (8) Diastolic CHF (9) GERD You will use the following diet at home:: Calorie/Carbohydrate Controlled ( specify 1200, 1400, etc) - 1800, Cardiac Your food should be the consistency of: Regular Your liquids should be the consistency of: Regular/Thin Discharge Activity: - - Please avoid aggressive activity until completed steroid taper and re-assessed per pulmonary and cleared. Avoid Asthma triggers including the changes in extreme temperature. May resume sexual activity in: 10-14 days Weight Bearing Status: Weight bearing as tolerated Call your doctor if you observe: Fever of 101 or Higher, Inability to urinate, Inability to have a bowel movement, Shortness of breath, Dizziness, Fainting spells, Chest pain, Uncontrolled pain Instructions: Understanding Asthma, Understanding Asthma Triggers, Caring for Your Inhaler, Using an Inhaler with a Spacer, Using an Inhaler Without a Spacer , Controlling Asthma Triggers: Irritants, Controlling Asthma Triggers: Allergens , Using a Nebulizer (Adult) Additional Instructions: Please continue to have routine INR checks and alterations of your coumadin per your managing physician to achieve therapeutic dosing. Upon presentation your INR was below the desired level but improved during the admission. Please have repeat level in 1-2 days and review this with your physician. Allergies/Adverse Reactions: Allergies clindamycin Allergy (Verified 11/12/17 14:55) Rash erythromycin base [Erythromycin Base] Allergy (Verified 11/12/17 14:55) Rash omalizumab [From Xolair] Allergy (Verified 11/12/17 14:55) Chest tightness Penicillins Allergy (Verified 11/12/17 14:55) Rash sulfamethoxazole [From Bactrim] Allergy (Verified 11/12/17 14:55) Chest tightness trimethoprim [From Bactrim] Allergy (Verified 11/12/17 14:55) Chest tightness Medications to take at Discharge Budesonide/Formoterol 160/4.5 [Symbicort 160/4.5 Mcg Inhaler (SP)] 2 puff INHALATION BID 01/26/14 Clobetasol Propionate/Emoll [Clobetasol Emollient 0.05% Crm] 15 gm TP BID PRN PRN 01/26/14 Diltiazem HCl [Cardizem Cd] 360 mg PO DAILY 01/26/14 Fluoxetine [Prozac] 40 mg PO DAILY 01/26/14 Tiotropium Catlett [Spiriva 18 MCG] 1 puff INHALATION DAILY 01/26/14 Epinephrine [Epi Pen] 0.3 mg IM X1 PRN 08/08/15 Tizanidine HCl 4 mg PO PRN PRN 11/12/15 Aspirin [Adult Low Dose Aspirin EC] 81 mg PO QHS 01/06/16 Docusate Sodium [Colace] 100 mg PO BID 01/06/16 Fenofibrate [Lofibra] 80 mg PO DAILY 01/06/16 Furosemide [Lasix] 20 mg PO BIDLX 01/06/16 Gabapentin [Neurontin] 600 mg PO TID 01/06/16 Guaifenesin [Mucinex] 600 mg PO BID 01/06/16 Insulin Lispro [Humalog] 25 unit SQ ACHS 01/06/16 L.acidoph,Paracasei, B.lactis [Probiotic] 1 each PO DAILY 01/06/16 Levocetirizine Dihydrochloride [Xyzal] 5 mg PO DAILY 01/06/16 Montelukast [Singulair] 10 mg PO DAILY 01/06/16 Multivit-Min/Iron/Folic/Lutein [Centrum Silver Women Tablet] 1 each PO DAILY Omeprazole [Prilosec] 40 mg PO DAILY 01/06/16 Pitavastatin Calcium [Livalo] 1 mg PO DAILY 01/06/16 Potassium Chloride [K-Dur] 10 meq PO BID 01/06/16 Ranitidine [Zantac] 150 mg PO QHS 01/06/16 Liraglutide [Victoza 2-Ron] 1.8 mg SQ DAILY 02/01/16 Warfarin [Coumadin] 9 mg PO DAILY@1700 02/01/16 Albuterol Inhaler [Ventolin Hfa] 2 puff INHALATION Q4H PRN PRN 05/27/16 Azelastine HCl [Astelin] 1 spray NASAL BID 05/27/16 Ca/D3/Mag/Zinc/Roly/Bello/Mgbor [Caltrate 600+D3+Min Chew Tab] 1 each PO BID Inhaler, Assist Devices [Aerochamber Plus Flow-Vu] 1 each MC DAILY PRN PRN 05/27 Moexipril/Hydrochlorothiazide [Moexipril-Hctz 7.5-12.5 mg Tab] 1 each PO BID Oxycodone HCl/Acetaminophen [Percocet 5-325] 1 - 2 tablet PO Q4H PRN PRN #20 tablet 03/27/17 Amitriptyline HCl 25 mg PO QHS 11/12/17 Dapagliflozin Propanediol [Farxiga] 10 mg PO DAILY 11/12/17 Insulin Glargine,Hum.rec.anlog [Lantus] 45 unit SQ QHS 11/12/17 Albuterol Aerosols [Ventolin Aerosols] 2.5 mg INHALATION Q2H PRN PRN #1 box 12/28 Ipratropium/Albuterol Sulfate [Duoneb] 3 ml INHALATION Q4H.RT #1 box 11/15/17 Prednisone 10 mg PO UD #30 tab 11/15/17 The following prescriptions were given: Albuterol Aerosols [Ventolin Aerosols] 2.5 mg INHALATION Q2H PRN PRN #1 box PRN Reason: dyspnea, wheezing Ipratropium/Albuterol Sulfate [Duoneb] 3 ml INHALATION Q4H.RT #1 box Prednisone 10 mg PO UD #30 tab Primary Care Physician: Ophelia Soria DO [Primary Care Provider] - Please follow up with your Primary Care Physician in: Follow-up within 3-5 days to review admission. Please Follow Up With: Eber Gallagher DO When: Please follow-up with Pulmonary, may see Pulm [facility] in 1-2 weeks. Proposed Discharge Date: 11/15/17
--- NOTE | 2017-11-15 09:23 | PCM.DC.SUM ---
Discharge Date and Diagnosis - Problem List Patient Problems: Active and Suspected Problems (Last Updated 11/14/17 @ 08:47 by Tamika Whitley NP-C) Influenza A (Acute) Chronic asthma with acute exacerbation (Acute) Date of Admission: 11/12/17 Date of Discharge: 11/15/17 - Primary Discharge Diagnosis Active and Suspected Problems (Last Updated 11/14/17 @ 08:47 by Tamika Whitley NP-C) (1) Acute Hypoxic Respiratory Failure secondary to General Malaise, Cough, Fever, General Debility, Dyspnea w/ Acute on Chronic Asthma Exacerbation secondary to Influenza A Viral Syndrome, DOES NOT HAVE COPD (2) History of PE, DVT with Subtherapeutic INR (3) Diabetes mellitus type II (4) Morbid Obesity (5) CHELSEY (6) Hypertension (7) Hyperlipidemia (8) Diastolic CHF (9) GERD - Secondary Discharge Diagnosis Chronic Problems (Last Updated 11/14/17 @ 08:47 by Tamika Whitley NP-C) Hyperlipidemia (Chronic) History of pulmonary embolism (Chronic) Personal history of anaphylaxis (Chronic) Chronic airway obstruction, not elsewhere classified (Chronic) Sinusitis (Chronic) GERD (gastroesophageal reflux disease) (Chronic) CAD (coronary artery disease) (Chronic) Bilateral carotid bruits (Chronic) Body mass index 45.0-49.9, adult (Chronic) Abnormal echocardiogram (Chronic) Shortness of breath (Chronic) Asthma (Chronic) Benign hypertension (Chronic) Type 2 diabetes mellitus (Chronic) Morbid obesity (Chronic) History of pulmonary embolism (Chronic) CHELSEY treated with BiPAP (Chronic) COPD (chronic obstructive pulmonary disease) (Chronic) Diastolic heart failure (Chronic) Hypertension (Chronic) Hospital Course and Treatment Dr. Gallagher Pulmonary/ICU Operations: None Procedures: EKG, - - BIPAP. Summary of Care Provided: The patient is a 57 y/o F w/ PMHx: Chronic Asthma, Anxiety and Depression, Hyperlipidemia, Hypertension, History of PE and DVT on chronic coumadin therapy, Morbid Obesity, CHELSEY on q HS BIPAP, Diabetes mellitus type II, CAD, Diastolic CHF, GERD who presented to the [facility] ED per Pulmonary Office recommendation w/ recent in office sputum noted to be unremarkable upon review, recent 11/10/17 + influenza A status w/ recent completion Levaquin 10 day regimen with 2 week history of ongoing dyspnea, progressively worsening with elevated T up to 103. CXR in the ED w/ chronic changes, no obvious infiltrate, recent Levaquin 10 day regimen. Admission CBC w/ no marked WBC or shift noted. 11/10/17 Influenza A positive. No indication for tamflu given length of symptoms. Initially admitted to [facility] per Swing, upon evaluation status severe appearing w/ increased RR, accessory muscle usage, audible wheezing w/ evidence acute hypoxic respiratory failure, transferred to the ICU, ABG obtained, notable for only hypoxia, maintained on BIPAP with improvement with transition to [facility] w/ telemetry following, maintained on ATC duonebs, PRN albuterol, IV solumedrol continued w/ discharge 11/15/17 prednisone transition, HOB, IS parameters. Pulmonary/ICU consulted, followed during admission with review of records and confirmation that patient only asthmatic, not COPD. PT, OT evaluation with improvement, ambulated in the halls w/ normal oxygenation testing. During admission also noted upon initial presentation INR 1.1, subtherapeutic, administered 10 mg po x 1 in the ED, 11/13/17 INR 1.3, continue overlap therapeutic lovenox w/ coumadin w/ repeat INR 1.6, given additional load of coumadin w/ recommendation for repeat INR in 1 day and continued alterations to her regimen per her PCP managing until therapeutic. Per review of records patient upon presentation commonly subtherapeutic. Patient discharged to home in stable, improved condition with continued aerosols, steroid taper with PCP follow-up within 3-5 days as well as Pulmonary re-evaluation within 2 weeks. DAY OF DISCHARGE PROGRESS NOTE: Subjective: Patient without acute event overnight per self and nursing report. Patient notes continued improvement with ability to ambulate in the halls with lessened dyspnea, no further severe wheezing and decreased coughing. Patient denies fever, chills, nausea, emesis, abdominal pain, chest pain. Patient agreeable to discharge to home. Patient will be discharged with follow-up with primary care physician within 3-5 days in addition to Pulmonary within 2 weeks. Objective: T 98.8, heart rate 73, BP 136/69, respiratory rate 18, 96% on room air. Physical Examination: General: awake, alert, oriented x 3 and cooperative, seated upright bed, NAD, improved appearance. Skin: normal color, turgor, no icterus, cyanosis. HEENT: AT/NC, EOMI, PERRLA, improved MMM. Lungs: Improved BS throughout, mildly diminished bases, no current wheezing, effort improved. Heart: Regular rate and rhythm; no gallop, rub audible. Abdomen: soft, morbidly obese, NTTP, ND, normal BS. Extremities: no cyanosis, clubbing, or edema. Neurological: patient awake, alert, oriented x 3; cognitive function intact; pupils equally reactive to light and accomodation; cranial nerves II-XII grossly normal, moving all 4 extremities, no focal deficits, strength improved, mildly to moderately globally decreased. Psychiatric: affect appears normal, no acute evidence of depressive or anxiety feelings. Assessment and Plan: Please see hospital summary above. Discharge Activity: - - Please avoid aggressive activity until completed steroid taper and re-assessed per pulmonary and cleared. Avoid Asthma triggers including the changes in extreme temperature. May resume sexual activity in: 10-14 days Weight Bearing Status: Weight bearing as tolerated Call your doctor if you observe: Fever of 101 or Higher, Inability to urinate, Inability to have a bowel movement, Shortness of breath, Dizziness, Fainting spells, Chest pain, Uncontrolled pain Home Medications: Medications to take at Discharge Budesonide/Formoterol 160/4.5 [Symbicort 160/4.5 Mcg Inhaler (SP)] 2 puff INHALATION BID 01/26/14 Clobetasol Propionate/Emoll [Clobetasol Emollient 0.05% Crm] 15 gm TP BID PRN PRN 01/26/14 Diltiazem HCl [Cardizem Cd] 360 mg PO DAILY 01/26/14 Fluoxetine [Prozac] 40 mg PO DAILY 01/26/14 Tiotropium Mcalpin [Spiriva 18 MCG] 1 puff INHALATION DAILY 01/26/14 Epinephrine [Epi Pen] 0.3 mg IM X1 PRN 08/08/15 Tizanidine HCl 4 mg PO PRN PRN 11/12/15 Aspirin [Adult Low Dose Aspirin EC] 81 mg PO QHS 01/06/16 Docusate Sodium [Colace] 100 mg PO BID 01/06/16 Fenofibrate [Lofibra] 80 mg PO DAILY 01/06/16 Furosemide [Lasix] 20 mg PO BIDLX 01/06/16 Gabapentin [Neurontin] 600 mg PO TID 01/06/16 Guaifenesin [Mucinex] 600 mg PO BID 01/06/16 Insulin Lispro [Humalog] 25 unit SQ ACHS 01/06/16 L.acidoph,Paracasei, B.lactis [Probiotic] 1 each PO DAILY 01/06/16 Levocetirizine Dihydrochloride [Xyzal] 5 mg PO DAILY 01/06/16 Montelukast [Singulair] 10 mg PO DAILY 01/06/16 Multivit-Min/Iron/Folic/Lutein [Centrum Silver Women Tablet] 1 each PO DAILY 01/06/16 Omeprazole [Prilosec] 40 mg PO DAILY 01/06/16 Pitavastatin Calcium [Livalo] 1 mg PO DAILY 01/06/16 Potassium Chloride [K-Dur] 10 meq PO BID 01/06/16 Ranitidine [Zantac] 150 mg PO QHS 01/06/16 Liraglutide [Victoza 2-Ron] 1.8 mg SQ DAILY 02/01/16 Warfarin [Coumadin] 9 mg PO DAILY@1700 02/01/16 Albuterol Inhaler [Ventolin Hfa] 2 puff INHALATION Q4H PRN PRN 05/27/16 Azelastine HCl [Astelin] 1 spray NASAL BID 05/27/16 Ca/D3/Mag/Zinc/Roly/Bello/Mgbor [Caltrate 600+D3+Min Chew Tab] 1 each PO BID 05/27/16 Inhaler, Assist Devices [Aerochamber Plus Flow-Vu] 1 each MC DAILY PRN PRN 05/27/16 Moexipril/Hydrochlorothiazide [Moexipril-Hctz 7.5-12.5 mg Tab] 1 each PO BID 05/27/16 Oxycodone HCl/Acetaminophen [Percocet 5-325] 1 - 2 tablet PO Q4H PRN PRN #20 tablet 03/27/17 Amitriptyline HCl 25 mg PO QHS 11/12/17 Dapagliflozin Propanediol [Farxiga] 10 mg PO DAILY 11/12/17 Insulin Glargine,Hum.rec.anlog [Lantus] 45 unit SQ QHS 11/12/17 Albuterol Aerosols [Ventolin Aerosols] 2.5 mg INHALATION Q2H PRN PRN #1 box 11/15/17 Ipratropium/Albuterol Sulfate [Duoneb] 3 ml INHALATION Q4H.RT #1 box 11/15/17 Prednisone 10 mg PO UD #30 tab 11/15/17 Following Prescrptions Were Given to Patient: Albuterol Aerosols [Ventolin Aerosols] 2.5 mg INHALATION Q2H PRN PRN #1 box PRN Reason: dyspnea, wheezing Ipratropium/Albuterol Sulfate [Duoneb] 3 ml INHALATION Q4H.RT #1 box Prednisone 10 mg PO UD #30 tab Primary Care Physician: Ophelia Soria DO [Primary Care Provider] - Please follow up with your Primary Care Physician in: Follow-up within 3-5 days to review admission. Please Follow Up With: Eber Gallagher DO When: Please follow-up with Pulmonary, may see Pulm [facility] in 1-2 weeks. Patient Instructions: Understanding Asthma, Understanding Asthma Triggers, Caring for Your Inhaler, Using an Inhaler with a Spacer, Using an Inhaler Without a Spacer, Controlling Asthma Triggers: Irritants, Controlling Asthma Triggers: Allergens, Using a Nebulizer (Adult) Disposition: Home Minutes spent on discharge:: 35 Patient Condition:: Fair Meaningful Use Info Meaningful Use Diagnoses (Choose all that apply): None applicable Code Visit Inpatient E&M: 59157 Disch Hosp
[2017-11-15 09:28] LABS: Absolute Lymphocyte Count 1.06 X10^3/ul (0.83-4.51); Absolute Neutrophil Count 9.3 X10^3/uL (2.0-7.7); Basophil# 0.02 X10^3/uL; Basophil% 0.2 % (0-1); Hematocrit 43.5 % (37-47); Lymphocyte # 1.06 X10^3/ul (4.0); Lymphocyte % 9.9 % (19-41); Mean Corp Hgb Conc 32.2 g/gl (32-36); Mean Corpuscular Volume 90.1 fL (81-99); Mean Platelet Vol. 10.9 fl (6.2-12.0); Monocyte# 0.23 X10^3/uL; Monocyte% 2.1 % (0-10); Neutrophil # 9.32 X10^3/uL (2.7-7.7); Neutrophil % 86.9 % (47-70); Platelet Count 230 K/mm3 (150-450); RBC Distribution Width CV 15.9 % (11.6-14.6); RBC Distribution Width SD 51.7 fl (35.1-43.9); Red Blood Count 4.83 M/mm3 (4.2-5.4); White Blood Count 10.7 K/mm3 (4.4-11.0)
[2017-11-15 09:38] LABS: POSITIVE COUNT NO; POSITIVE DIFFERENTIAL NO; POSITIVE MORPHOLOGY NO
[2017-11-15 09:42] LABS: Anion Gap 8 (5-15); BUN 14 mg/dL (7-18); BUN/Creat Ratio 23.1 RATIO (10-20); Calcium,Total 8.6 mg/dL (8.5-10.1); Chloride 100 mmol/L (98-107); Creatinine, Serum 0.61 mg/dL (0.55-1.02); EST Glomerular Filtration Rate 108 mL/min (>60); Est Glom Filt Rate - Afr Amer 130 mL/min (>60); Estimated Creatinine Clearance 86.81 ml/min; Glucose 329 mg/dL (74-106); Potassium 4.6 mmol/L (3.5-5.1); Sodium Level 137 mmol/L (136-145)
[2017-11-15 09:50] LABS: International Normalized Ratio 1.6; Prothrombin Time (Protime)PT. 18.3 SECONDS (11.7-14.9)
[2017-11-15 11:31] LABS: Bedside Glucose 270 mg/dL (70-110)
== END 2017-11-15 13:00 | disposition home or self-care (01) | DRG 193 ==
LOC: ED 16:35 → MS3 16:40 → ICU 11-13 05:10 → MS3 11-13 13:33
PROVIDERS: Admitting Provider Family Medicine; Emergency Provider Emergency Medicine; Family Provider Internal Medicine; PCP Internal Medicine; Visit Provider Family Medicine
DX: J10.1 Influenza due to other identified influenza virus with other respiratory manifestations (principal); J96.01 Acute respiratory failure with hypoxia; J45.901 Unspecified asthma with (acute) exacerbation; E66.01 Morbid (severe) obesity due to excess calories; I11.0 Hypertensive heart disease with heart failure; I50.32 Chronic diastolic (congestive) heart failure; E11.9 Type 2 diabetes mellitus without complications; J32.9 Chronic sinusitis, unspecified; I25.10 Atherosclerotic heart disease of native coronary artery without angina pectoris; E78.5 Hyperlipidemia, unspecified; G47.33 Obstructive sleep apnea (adult) (pediatric); K21.9 Gastro-esophageal reflux disease without esophagitis; F32.9 Major depressive disorder, single episode, unspecified; F41.9 Anxiety disorder, unspecified; Z79.4 Long term (current) use of insulin; Z79.01 Long term (current) use of anticoagulants; Z79.82 Long term (current) use of aspirin; Z79.899 Other long term (current) drug therapy; Z87.892 Personal history of anaphylaxis; Z86.711 Personal history of pulmonary embolism; Z86.718 Personal history of other venous thrombosis and embolism
CPT/HCPCS: 36415; 36600; 71045; 80048; 82803; 82962; 83735; 84484; 85025; 85610; 87070; 87205; 87641; 87804; 93005; 94002; 94003; 94640; 94667; 94668; 97110; 97116; 97162; 97165; 97802; 99285; J7030; A4216

== ENCOUNTER → 2018-12-21 10:30 | Outpatient (CLI) | payer MEDICARE, SELFPAY ==
[2018-12-21 10:35] LABS: Mucous, Urine 0 SEEN /hpf (<or=2+)
[2018-12-21 11:21] LABS: Color, Urine Yellow (Yellow); Glucose, Dipstick 1000 mg/dl (Normal); Ketone-Dipstick Negative (Negative); Leukocyte Esterase-Dipstick 500 /ul (Negative); Nitrite-Dipstick Negative (Negative); Occult Blood-Urine 10 /ul (Negative); Protein-Dipstick Negative (Negative); Specific Gravity, Urine 1.015 (1.002-1.030); Urine Bilirubin Dipstick Negative (Negative); Urine Clarity Sl. Cloudy (Clear); Urine Urobilinogen Normal (Normal)
[2018-12-21 11:22] LABS: Absolute Lymphocyte Count 3.28 X10^3/ul (0.83-4.51); Absolute Neutrophil Count 3.7 X10^3/uL (2.0-7.7); Basophil# 0.05 X10^3/uL; Basophil% 0.6 % (0-1); Eosinophil# 0.15 X10^3/uL; Eosinophils% 1.9 % (0-5); Hematocrit 47.2 % (37-47); Hemoglobin 14.9 g/dl (12.0-15.0); Lymphocyte # 3.28 X10^3/ul (4.0); Lymphocyte % 41.7 % (19-41); Mean Corp Hgb Conc 31.6 g/gl (32-36); Mean Corpuscular Hgb 29.1 pg (27.0-32.0); Mean Corpuscular Volume 92.2 fL (81-99); Mean Platelet Vol. 11.2 fl (6.2-12.0); Monocyte# 0.71 X10^3/uL; Neutrophil # 3.66 X10^3/uL (2.7-7.7); Neutrophil % 46.5 % (47-70); POSITIVE COUNT NO; POSITIVE DIFFERENTIAL NO; POSITIVE MORPHOLOGY NO; Platelet Count 244 K/mm3 (150-450); RBC Distribution Width CV 14.9 % (11.6-14.6); RBC Distribution Width SD 48.6 fl (35.1-43.9); Red Blood Count 5.12 M/mm3 (4.2-5.4); White Blood Count 7.9 K/mm3 (4.4-11.0)
[2018-12-21 11:29] LABS: Bacteria 1+ /hpf (None Seen); Red Blood Cells-Urine 0-5 SEEN /hpf (0-5); Squamous Epithelial Cells - UA 0-5 SEEN /hpf (5-10); White Blood Cells 25-50 SEEN /hpf (0-5)
[2018-12-21 11:37] LABS: Microalbumin,Random Urine 6.7 mg/L (NO RANGE EST.); Microalbumin:Creatinine Ratio 23.5 mg/g CRE (<30 mg/g CRE)
[2018-12-21 11:55] LABS: Vitamin D,25 Hydroxy 66.6 ng/mL (29.95-100.01)
[2018-12-21 12:00] LABS: AST(SGOT) 27 U/L (15-37); Alanine Aminotransfer ALT/SGPT 42 U/L (13-56); Albumin, Serum 3.3 g/dL (3.2-5.0); Alkaline Phosphatase 74 U/L (45-117); Anion Gap 9 (5-15); BUN 11 mg/dL (7-18); BUN/Creat Ratio 21.7 RATIO (10-20); Calcium,Total 8.5 mg/dL (8.5-10.1); Chloride 110 mmol/L (98-107); Creatinine, Serum 0.51 mg/dL (0.55-1.02); EST Glomerular Filtration Rate 132 mL/min (>60); Est Glom Filt Rate - Afr Amer 160 mL/min (>60); Globulin 3.4 g/dL (2.2-4.2); Glucose 120 mg/dL (74-106); Potassium 3.7 mmol/L (3.5-5.1); Protein, Total 6.7 g/dL (6.4-8.2); Sodium Level 145 mmol/L (136-145); Thyroid Stim Hormone (TSH) 2.46 uIU/mL (0.358-3.74)
[2018-12-22 16:08] LABS: CHOLESTEROL TOTAL 176 mg/dL (100-199); HDL-C 43 mg/dL (>39); HDL-P TOTAL 37.3 umol/L (>=30.5); SMALL LDL-P 831 nmol/L (<=527); TRIGLYCERIDES 188 mg/dL (0-149)
[2018-12-23 11:54] LABS: INSULIN RESISTANCE SCORE 79 (<=45); LDL SIZE 20.2 nm (>20.5); LDL-C 95 mg/dL (0-99); LDL-P 1346 nmol/L (<1000)
[2019-05-04 15:54] LABS: International Normalized Ratio 1.1; Prothrombin Time (Protime)PT. 14.4 SECONDS (11.7-14.9)
== END ==
LOC: LAB.FUTURE 05-04 14:41 → LAB 05-05 06:27
PROVIDERS: Family Provider Internal Medicine; PCP Internal Medicine; Referring Provider Internal Medicine; Visit Provider Internal Medicine
DX: I10 Essential (primary) hypertension (principal); E78.00 Pure hypercholesterolemia, unspecified; E55.9 Vitamin D deficiency, unspecified; Z79.01 Long term (current) use of anticoagulants
CPT/HCPCS: 36415; 80053; 80061; 81001; 82043; 82306; 82570; 83704; 84443; 85025; 85610

== ENCOUNTER 2019-04-26 21:47 | Emergency (ER) | payer MEDICARE, SELFPAY ==
[2017-11-12 17:32] VITALS: BMI 43.5
[2019-04-26 21:48] VITALS: BP 160/92; BP 162/91; PULSE 93; PULSE 95; RESP 16; TEMP 36.6; O2SAT 94; O2SAT 98; BMI 43.6
--- NOTE | 2019-04-26 22:28 | CT_ITS ---
STUDY: CT BRAIN WITHOUT CONTRAST REASON FOR EXAM: Female, 58 years old. Numbness, tingling on left side RADIATION DOSAGE (If Supplied By Facility): CTDIvol = ( 44.99 ) mGy, DLP = ( 762.36 ) mGycm TECHNIQUE: Transaxial CT imaging of the brain was performed without administration of intravenous contrast material. Individualized dose optimization techniques were used for this CT. COMPARISON: No relevant priors. FINDINGS: Normal soft tissue structures. Normal calvarium. Normal size ventricles and extra-axial spaces for the patient's age. Normal white matter tracts of the cerebral hemispheres. Normal basal ganglia and thalami. Normal brainstem. Normal cerebellum. There is no intracranial hemorrhage. There are no findings of an acute ischemic infarction. Normal visualized paranasal sinuses. CT/Brain/Head without Contrast IMPRESSION: Normal unenhanced CT scan of the brain. Electronically Signed: Viet Reyes DO at 23:34 EDT Tel [phone], Service support ,
[2019-04-26] MEDS: 0.9% Normal Saline 1,000 ML 999 ML IV (22:44)
[2019-04-26 22:46] LABS: Absolute Lymphocyte Count 3.06 X10^3/ul (0.83-4.51); Absolute Neutrophil Count 5.6 X10^3/uL (2.0-7.7); Basophil# 0.08 X10^3/uL; Basophil% 0.8 % (0-1); Eosinophil# 0.15 X10^3/uL; Eosinophils% 1.5 % (0-5); Hematocrit 47.8 % (37-47); Hemoglobin 15.8 g/dl (12.0-15.0); Lymphocyte # 3.06 X10^3/ul (4.0); Lymphocyte % 31.1 % (19-41); Mean Corp Hgb Conc 33.1 g/gl (32-36); Mean Corpuscular Hgb 28.9 pg (27.0-32.0); Mean Corpuscular Volume 87.4 fL (81-99); Mean Platelet Vol. 11.3 fl (6.2-12.0); Monocyte# 0.89 X10^3/uL; Monocyte% 9.1 % (0-10); Neutrophil # 5.62 X10^3/uL (2.7-7.7); Neutrophil % 57.2 % (47-70); Platelet Count 269 K/mm3 (150-450); RBC Distribution Width CV 14.4 % (11.6-14.6); RBC Distribution Width SD 46.2 fl (35.1-43.9); Red Blood Count 5.47 M/mm3 (4.2-5.4); White Blood Count 9.8 K/mm3 (4.4-11.0)
[2019-04-26 22:50] LABS: International Normalized Ratio 1.8; Prothrombin Time (Protime)PT. 21.2 SECONDS (11.7-14.9)
[2019-04-26 22:51] LABS: AST(SGOT) 53 U/L (15-37); Alanine Aminotransfer ALT/SGPT 49 U/L (13-56); Albumin, Serum 3.6 g/dL (3.2-5.0); Alkaline Phosphatase 95 U/L (45-117); Anion Gap 6 (5-15); BUN 14 mg/dL (7-18); BUN/Creat Ratio 18.8 RATIO (10-20); Calcium,Total 9.1 mg/dL (8.5-10.1); Chloride 107 mmol/L (98-107); Creatinine, Serum 0.75 mg/dL (0.55-1.02); EST Glomerular Filtration Rate 84 mL/min (>60); Est Glom Filt Rate - Afr Amer 102 mL/min (>60); Estimated Creatinine Clearance 69.74 ml/min; Globulin 3.7 g/dL (2.2-4.2); Glucose 120 mg/dL (74-106); Potassium 3.6 mmol/L (3.5-5.1); Protein, Total 7.3 g/dL (6.4-8.2); Sodium Level 140 mmol/L (136-145)
[2019-04-26 22:53] LABS: POSITIVE COUNT NO; POSITIVE DIFFERENTIAL NO; POSITIVE MORPHOLOGY NO
[2019-04-26 23:48] VITALS: BP 158/91; PULSE 88; RESP 16; O2SAT 94
[2019-04-26] MEDS: DiphenhydrAMINE 50 MG/ML Syringe 25 MG IV (23:59)
[2019-04-26] MEDS: Ketorolac 30 MG/ML Syringe IV (23:59)
[2019-04-26] MEDS: proCHLORPERazine 10 MG/2 ML Vial IV (23:59)
[2019-04-27] VITALS: BP 160/77; PULSE 86; RESP 16; O2SAT 95
--- NOTE | 2019-04-27 00:25 | ED.DCSUM_ITS ---
- ER Visit Summary Date of Service: 04/27/19 Chief Complaint: Weakness History of Present Illness: The patient is a 58 F who presents the emergency department with left leg pain and left arm weakness. Patient states that in the past recent weeks she has had an increase in the number of migraines. She stat es that she was on Lyrica and since not being able to afford the Lyrica her left sciatica has worsened as has her migraines. Last night she went to bed around 2300 hrs. and felt okay. She woke this morning around 080 0 hours and had pain immediately in the left buttock traveling down the leg causing the leg to feel weak. Is exacerbated with any motion. Around 10:00 she states she felt the left arm was weak and clean rice grader and reel tender and decreased sensation compared to the other side. She also felt her left face was showing decreased sensation compared to the right. She then developed a frontal headache which she states is similar to her migraines. She is on Coumadin for prior DVT and PE. She also takes aspirin. She did not feel that her symptoms warranted a trip to the hospital until numerous family members told her to come. Physical Examination: Afebrile vital signs stable Gen: Well-nourished well-developed Head: Normocephalic atraumatic Eyes: Perrl EOMI ENT: TMs clear no rhinorrhea moist mucous membranes Neck: Supple no lymphadenopathy no JVD nontender CVS: Regular rate rhythm no murmurs normal S1-S2 Respiratory: No distress clear to auscultation bilaterally chest nontender Abdomen: Soft nontender nondistended normal bowel sounds no masses Back: Nontender Extremity: Left buttock is exquisitely tender and demonstrates painful range of motion Skin: Normal color no rash Neuro: alert orientated ?3 CN II-XII intact I score her NIH of 2. 1 for reported decreased sensation on the left arm and 1for left arm weakness compared to the right. The patient speaks to me she is very animated with her arms and does not seem to have any difficulty moving the left arm until we do dynamic testing from right to left. Psych: Normal affect normal mood Test Results: Basic labs showed a subtherapeutic INR 1.8. No white count. CT head negative. Emergency Department Course and Treatment: Not called stroke team as I think this represents 1 acute left sciatica and to a complex migraine with neurologic features. Patient received IV fluids Toradol Compazine and Benadryl. Patient will be reassessed and evaluated for final disposition. At 004 2 hours the patient is feeling better. Headache is subsiding the left arm weakness is resolved and that she still has some tingling of the arm. The sciatica is a l ittle bit better. I will write for Valium and Parker. I am also to give her a dose of Solu-Medrol for continued care of the headache at home. I have asked that she follow-up with her doctor in 2 days. Return if worsening or concerns. She is also to double her Coumadin dose tonight and tomorrow and have her INR rechecked with her doctor. Impression: 1. Complex migraine 2. Left sciatica This note was generated with [employer] dictation software. It may contain incorrect words, spelling, and punctuation that were not noted in review of the chart prior to signing ED Disposition - Plan for ED Patient: Disposition: Home or Assisted Living Instructions: Understanding Sciatica, HEADACHE, Migraine (Classical) Prescriptions: Hydrocodone Bitart/Apap 5-325 [Parker 5MG-325MG] 1 tab PO Q6H PRN PRN 3 Days #12 tab PRN Reason: Pain Prescription Printed Diazepam [Valium] 5 mg PO Q8 PRN 3 Days #9 tab PRN Reason: Muscle Spasm Prescription Printed Referrals: Ophelia Soria DO [Primary Care Provider] - 2 Days Additional Instructions: Please take an extra dose of your Coumadin today and tomorrow and have your INR rechecked on
[2019-04-27] MEDS: MethylPREDNISolone 125 MG/2 ML Vial IV (00:55)
[2019-04-27 00:56] VITALS: BP 159/94; PULSE 87; RESP 19; O2SAT 95
[2019-04-27 07:30] LABS: Bedside Glucose 135 mg/dL (70-110)
== END 2019-04-27 01:11 | disposition home or self-care (01) ==
PROVIDERS: Emergency Provider Emergency Medicine; Family Provider Internal Medicine; PCP Internal Medicine
DX: G43.109 Migraine with aura, not intractable, without status migrainosus (principal); M54.32 Sciatica, left side; I11.0 Hypertensive heart disease with heart failure; I25.10 Atherosclerotic heart disease of native coronary artery without angina pectoris; J44.9 Chronic obstructive pulmonary disease, unspecified; G47.33 Obstructive sleep apnea (adult) (pediatric); R53.1 Weakness; Z79.82 Long term (current) use of aspirin; Z79.01 Long term (current) use of anticoagulants; Z79.4 Long term (current) use of insulin; Z79.899 Other long term (current) drug therapy; Z86.711 Personal history of pulmonary embolism; Z86.718 Personal history of other venous thrombosis and embolism
CPT/HCPCS: 70450; 80053; 82962; 85025; 85610; 96361; 96374; 96375; 99283; J7030; A4216

== ENCOUNTER → 2019-08-16 09:37 | Outpatient (CLI) | payer MEDICARE, SELFPAY ==
[2019-08-09 14:41] VITALS: BMI 43.7
[2019-08-16 09:48] LABS: Mucous, Urine 0 SEEN /hpf (<or=2+); Red Blood Cells-Urine 0 SEEN /hpf (0-5)
[2019-08-16 10:35] LABS: Color, Urine Yellow (Yellow); Glucose, Dipstick 1000 mg/dl (Normal); Ketone-Dipstick Negative (Negative); Leukocyte Esterase-Dipstick 100 /ul (Negative); Nitrite-Dipstick Negative (Negative); Occult Blood-Urine 10 /ul (Negative); Protein-Dipstick Negative (Negative); Specific Gravity, Urine 1.015 (1.002-1.030); Urine Bilirubin Dipstick Negative (Negative); Urine Clarity Clear (Clear); Urine Urobilinogen Normal (Normal)
[2019-08-16 10:43] LABS: Absolute Lymphocyte Count 2.54 X10^3/uL (0.83-4.51); Absolute Neutrophil Count 3.3 X10^3/uL (2.0-7.7); Basophil# 0.07 X10^3/uL; Eosinophil# 0.16 X10^3/uL; Eosinophils% 2.3 % (0-5); Hematocrit 47.1 % (37-47); Hemoglobin 15.2 g/dL (12.0-15.0); Lymphocyte # 2.54 X10^3/ul (4.0); Lymphocyte % 37.2 % (19-41); Mean Corp Hgb Conc 32.3 g/dL (32-36); Mean Corpuscular Hgb 29.1 pg (27.0-32.0); Mean Corpuscular Volume 90.1 fL (81-99); Mean Platelet Vol. 11.2 fl (6.2-12.0); Monocyte# 0.71 X10^3/uL; Monocyte% 10.4 % (0-10); NRBC Flagged by Analyzer 0 % (0-5); Neutrophil % 48.4 % (47-70); Platelet Count 249 K/mm3 (150-450); RBC Distribution Width CV 14.1 % (11.6-14.6); RBC Distribution Width SD 46.5 fl (35.1-43.9); Red Blood Count 5.23 M/mm3 (4.2-5.4); White Blood Count 6.8 K/mm3 (4.4-11.0)
[2019-08-16 10:55] LABS: Bacteria 1+ /hpf (None Seen); Squamous Epithelial Cells - UA 0-5 SEEN /hpf (5-10); White Blood Cells 5-10 SEEN /hpf (0-5)
[2019-08-16 11:09] LABS: Vitamin D,25 Hydroxy 63.6 ng/mL (29.95-100.01)
[2019-08-16 11:10] LABS: AST(SGOT) 50 U/L (15-37); Alanine Aminotransfer ALT/SGPT 63 U/L (13-56); Albumin, Serum 3.4 g/dL (3.2-5.0); Alkaline Phosphatase 92 U/L (45-117); Anion Gap 7 (5-15); BUN 14 mg/dL (7-18); BUN/Creat Ratio 28.2 RATIO (10-20); Calcium,Total 8.8 mg/dL (8.5-10.1); Chloride 109 mmol/L (98-107); EST Glomerular Filtration Rate 135 mL/min (>60); Est Glom Filt Rate - Afr Amer 164 mL/min (>60); Ferritin 120 ng/mL (8-252); Globulin 3.5 g/dL (2.2-4.2); Glucose 168 mg/dL (74-106); Iron 100 ug/dL (50-170); Iron Binding Capacity,Total 343 ug/dL (250-450); PERCENT IRON SATURATION 29.2 % (15.0-55.0); Potassium 3.8 mmol/L (3.5-5.1); Protein, Total 6.9 g/dL (6.4-8.2); Sodium Level 143 mmol/L (136-145); Thyroid Stim Hormone (TSH) 1.74 uIU/mL (0.358-3.74)
[2019-08-16 11:33] LABS: Microalbumin,Random Urine 12.9 mg/L (NO RANGE EST.); Microalbumin:Creatinine Ratio 44.9 mg/g CRE (<30 mg/g CRE)
[2019-08-18 14:58] LABS: CHOLESTEROL TOTAL 179 mg/dL (100-199); HDL-C 29 mg/dL (>39); HDL-P TOTAL 27.6 umol/L (>=30.5); SMALL LDL-P 1266 nmol/L (<=527); TRIGLYCERIDES 306 mg/dL (0-149)
[2019-08-18 15:40] LABS: INSULIN RESISTANCE SCORE 83 (<=45); LDL SIZE 19.6 nm (>20.5); LDL-C 89 mg/dL (0-99); LDL-P 1573 nmol/L (<1000)
== END ==
LOC: LAB 09:41
PROVIDERS: Family Provider Internal Medicine; PCP Internal Medicine; Referring Provider Internal Medicine; Visit Provider Internal Medicine
DX: D50.9 Iron deficiency anemia, unspecified (principal); E11.8 Type 2 diabetes mellitus with unspecified complications; E78.00 Pure hypercholesterolemia, unspecified; I10 Essential (primary) hypertension; E55.9 Vitamin D deficiency, unspecified
CPT/HCPCS: 36415; 80053; 80061; 81001; 82043; 82306; 82570; 82728; 83540; 83550; 83704; 84443; 85025

== ENCOUNTER → 2019-09-02 11:32 | Outpatient (CLI) | payer MEDICARE, SELFPAY ==
[2019-08-09 14:41] VITALS: BMI 43.7
[2019-09-02 12:57] LABS: International Normalized Ratio 1.2; Prothrombin Time (Protime)PT. 14.9 SECONDS (11.7-14.9)
== END ==
PROVIDERS: Family Provider Internal Medicine; PCP Internal Medicine; Referring Provider Internal Medicine; Visit Provider Internal Medicine
DX: Z79.01 Long term (current) use of anticoagulants (principal)
CPT/HCPCS: 36415; 85610

== ENCOUNTER → 2019-09-06 13:48 | Outpatient (CLI) | payer MEDICARE, SELFPAY ==
[2019-08-09 14:41] VITALS: BMI 43.7
--- NOTE | 2019-09-06 13:50 | ECHOCS_ITS ---
Reason For Study: MURMUR Procedure This was a 2D Doppler, Color Flow transthoracic echocardiogram. The study was technically difficult. Contrast injection was performed. Exam performed in department. Left Ventricle Normal LV size. Sigmoid septum. Left ventricular systolic function is normal. The estimated ejection fraction is 60 %. Transmitral doppler flow suggestive of impaired relaxation of left ventricle. No regional wall motion abnormalities noted. Right Ventricle Normal RV size. Normal systolic function. Atria Normal left atrium. Normal right atrium. No doppler evidence for ASD. Mitral Valve There is moderate mitral annular calcification. Extension of the mitral annular calcification onto the mitral valve leaflets. Mild (1+) mitral valve insufficiency. Tricuspid Valve Normal tricuspid valve. Mild tricuspid valve insufficiency. Right ventricular systolic pressure estimated to be 29 mmHg. Aortic Valve Mild diffuse aortic valve thickening. Moderate diffuse aortic valve calcification. Moderate aortic stenosis. Pulmonic Valve The pulmonic valve is not well visualized. Great Vessels Normal sized aortic root. Pericardium/Pleural No pericardial effusion. Medication 22 gauge I.V. with prn adaptor inserted into left arm. Diluted definity 2.5ml given slow IV push to enhance endocardial definition. MMode/2D Measurements & Calculations LVIDd: 4.4 cm IVSd: 1.00 cm LVOT diam: 2.0 cm LVIDs: 3.3 cm LVPWd: 1.0 cm RVDd: 3.9 cm FS: 25.2 % LVOT area: 3.1 cm2 Ao root diam: 3.3 cm LAV(MOD-bp): 56.5 ml LVAd ap4: 30.7 cm2 LAV(MOD-bp) Indexed: 26.4 ml/m2 EDV(MOD-sp4): 86.2 ml LAV(MOD-sp2): 61.2 ml EDV(sp4-el): 90.1 ml LAV(MOD-sp4): 47.1 ml LVAs ap4: 20.7 cm2 ESV(MOD-sp4): 45.5 ml ESV(sp4-el): 47.9 ml EF(MOD-sp4): 47.2 % EF(sp4-el): 46.8 % SV(MOD-sp4): 40.7 ml SV(sp4-el): 42.2 ml Aortic Valve Planimetry: 0.94 cm2 LA A4 area: 16.8 cm2 LA dimension(2D): 4.2 cm RA A4 area: 12.2 cm2 Time Measurements MV dec time: 0.28 sec Doppler Measurements & Calculations MV E max juan carlos: 94.4 cm/sec MV V2 max: 109.6 cm/sec Ao V2 max: 342.7 cm/sec MV A max juan carlos: 105.4 cm/sec MV max P.8 mmHg Ao max P.0 mmHg MV E/A: 0.90 MV V2 mean: 80.1 cm/sec Ao V2 mean: 254.7 cm/sec MV mean P.8 mmHg Ao mean P.9 mmHg MV V2 VTI: 33.4 cm Ao V2 VTI: 71.4 cm MVA(VTI): 2.2 cm2 FELICIANO(I,D): 1.1 cm2 FELICIANO(V,D): 0.93 cm2 LV V1 max: 102.1 cm/sec SV(LVOT): 74.9 ml TR max juan carlos: 255.7 cm/sec LV V1 max P.2 mmHg TR max P.2 mmHg LV V1 mean P.4 mmHg LV V1 mean: 73.3 cm/sec LV V1 VTI: 24.0 cm MV P1/2t-pr_phl: 94.2 msec Interpretation Summary The study was technically difficult. Contrast injection was performed. Left ventricular systolic function is normal. The estimated ejection fraction is 60 %. Sigmoid septum. There is moderate mitral annular calcification. Extension of the mitral annular calcification onto the mitral valve leaflets. Mild (1+) mitral valve insufficiency. Mild tricuspid valve insufficiency. Moderate aortic stenosis. Right ventricular systolic pressure estimated to be 29 mmHg. Transmitral doppler flow suggestive of impaired relaxation of left ventricle Comment: Based upon the 2D echocardiographic images obtained a bicuspid aortic valve could not necessarily be excluded. Ordering Physician: Jeronimo Izquierdo Referring Physician: AMEE SANCHEZ Performed By: Miranda Barbour, RDCS, RVT
== END ==
PROVIDERS: Family Provider Internal Medicine; PCP Internal Medicine; Referring Provider Internal Medicine Cardiovascular Disease; Visit Provider Internal Medicine Cardiovascular Disease
DX: I25.10 Atherosclerotic heart disease of native coronary artery without angina pectoris (principal)
CPT/HCPCS: 93306; Q9957; A4216; C8929

== ENCOUNTER → 2019-10-08 16:09 | Outpatient (CLI) | payer MEDICARE, SELFPAY ==
[2019-10-08 15:25] VITALS: BMI 42.5
[2019-10-08 20:14] LABS: Anion Gap 9 (5-15); BUN 12 mg/dL (7-18); BUN/Creat Ratio 19.3 RATIO (10-20); Calcium,Total 8.9 mg/dL (8.5-10.1); Chloride 110 mmol/L (98-107); Creatinine, Serum 0.62 mg/dL (0.55-1.02); EST Glomerular Filtration Rate 104 mL/min (>60); Est Glom Filt Rate - Afr Amer 126 mL/min (>60); Glucose 134 mg/dL (74-106); Potassium 3.5 mmol/L (3.5-5.1); Sodium Level 147 mmol/L (136-145)
== END ==
LOC: LAB 16:13
PROVIDERS: Family Provider Internal Medicine; PCP Internal Medicine; Referring Provider Nurse Practitioner Family; Visit Provider Nurse Practitioner Family
DX: R93.1 Abnormal findings on diagnostic imaging of heart and coronary circulation (principal); I25.10 Atherosclerotic heart disease of native coronary artery without angina pectoris; I65.23 Occlusion and stenosis of bilateral carotid arteries; I10 Essential (primary) hypertension; E78.5 Hyperlipidemia, unspecified
CPT/HCPCS: 36415; 80048

== ENCOUNTER → 2019-10-12 08:59 | Outpatient (CLI) | payer MEDICARE, SELFPAY ==
[2019-08-09 14:41] VITALS: BMI 43.7
[2019-10-08 15:25] VITALS: BMI 42.5
--- NOTE | 2019-10-12 08:59 | ECHOTEE_ITS ---
Reason For Study: BICUSPID AV Medication YOLANDA probe 6VT-D (SN [id number]) passed without difficulty. No complications were noted. Cetacaine Topical [place]ford given X3 orally. Versed 2.0 mg given slow IVP. Fentanyl 100 mcg given slow IVP. Performed a rapid injection of agitated mix of 9 cc saline and 1cc air to assess for atrial septal defect. Left Ventricle Normal LV size. Sigmoid septum. Left ventricular systolic function is normal. The estimated ejection fraction is 60 %. No regional wall motion abnormalities noted. Right Ventricle Normal RV size. The right ventricular wall motion is normal. Atria Color flow Doppler potentially compatible with a left to right interatrial shunt compatible with a small PFO. Bubble contrast study negative for right to left interatrial shunt. The left atrium is mildly enlarged. There is no sponatenous contrast in the left atrium. No thrombus is detected in the left atrial appendage. Normal right atrium. There is no sponatenous contrast in the right atrium. No right atrium/appendage thrombus identified. Mitral Valve There is moderate mitral annular calcification. Extension of the mitral annular calcification onto the mitral valve leaflets. Mild (1+) mitral valve insufficiency. Tricuspid Valve Normal tricuspid valve. Trivial tricuspid valve insufficiency. Aortic Valve Trisinus/trileaflet aortic valve. Moderate diffuse aortic valve thickening. Moderate diffuse aortic valve calcification. Trivial aortic valve insufficiency. Pulmonic Valve The pulmonic valve is not well visualized. Vessels Normal-appearing thoracic aorta. Pericardium No pericardial effusion. Interpretation Summary Left ventricular systolic function is normal. The estimated ejection fraction is 60 %. Sigmoid septum. The left atrium is mildly enlarged. There is no sponatenous contrast in the left atrium. No thrombus is detected in the left atrial appendage. There is moderate mitral annular calcification. Extension of the mitral annular calcification onto the mitral valve leaflets. Mild (1+) mitral valve insufficiency. Trivial tricuspid valve insufficiency. Trisinus/trileaflet aortic valve. Moderate diffuse aortic valve thickening. Moderate diffuse aortic valve calcification. Trivial aortic valve insufficiency. Color flow Doppler potentially compatible with a left to right interatrial shunt compatible with a small PFO. Bubble contrast study negative for right to left interatrial shunt. Ordering Physician: Jeronimo Izquierdo Referring Physician: AMEE SANCHEZ Performed By: Miranda Barbour, BRANDON, RVT
== END ==
LOC: CVS 08:59
PROVIDERS: Family Provider Internal Medicine; PCP Internal Medicine; Referring Provider Internal Medicine Cardiovascular Disease; Visit Provider Internal Medicine Cardiovascular Disease
DX: I35.0 Nonrheumatic aortic (valve) stenosis (principal); R93.1 Abnormal findings on diagnostic imaging of heart and coronary circulation
CPT/HCPCS: 93312; 93320; 93325; J7040; A4216

== ENCOUNTER → 2019-10-26 11:56 | Outpatient (CLI) | payer MEDICARE, SELFPAY ==
[2019-10-26 10:47] VITALS: BMI 42.5
--- NOTE | 2019-10-26 12:41 | RAD_ITS ---
STUDY: X-RAY CHEST REASON FOR EXAM: Female, 58 years old. DYSPNEA, SOB, COUGH, MEDIAL PAIN, WHEEZING, TAKES HBP MEDICATION TECHNIQUE: PA and lateral views of the chest. COMPARISON: 11/12/2017. FINDINGS: The lungs are clear and expanded. There is no demonstrated pleural abnormality. Normal size heart. Normal mediastinum and yulisa. Normal visualized pulmonary arteries. There is atherosclerotic calcification of the aortic arch with tortuosity. There is demineralization of the osseous structures. There is degenerative osteoarthritis of the bilateral shoulders and spine. Postoperative changes of the cervical spine. There is no demonstrated abnormality of the visualized soft tissue structures of the upper abdomen. RAD/Chest PA and Lateral IMPRESSION: No acute cardiopulmonary disease. Electronically Signed: Julia Cancino MD at 4:13 EST , Service support ,
[2019-10-26 13:20] LABS: D-Dimer Quantitative (DVT/PE) < 0.27 FEU/ug/m (0.27-0.49)
[2019-10-26 13:43] LABS: Anion Gap 4 (5-15); BUN 11 mg/dL (7-18); BUN/Creat Ratio 23.2 RATIO (10-20); Calcium,Total 8.6 mg/dL (8.5-10.1); Chloride 108 mmol/L (98-107); Creatinine, Serum 0.47 mg/dL (0.55-1.02); EST Glomerular Filtration Rate 142 mL/min (>60); Est Glom Filt Rate - Afr Amer 172 mL/min (>60); Glucose 88 mg/dL (74-106); Potassium 3.7 mmol/L (3.5-5.1); Sodium Level 140 mmol/L (136-145)
[2019-10-26 13:51] LABS: BNP,B-Type NATRIURETIC PEPTIDE 24.6 pg/mL (0-100)
== END ==
PROVIDERS: Nurse Practitioner Acute Care; Family Provider Internal Medicine; PCP Internal Medicine; Referring Provider Physician Assistant Medical; Visit Provider Physician Assistant Medical
DX: R06.02 Shortness of breath (principal)
CPT/HCPCS: 36415; 71046; 80048; 83880; 85379

== ENCOUNTER 2019-11-03 11:41 | Emergency (ER) | payer MEDICARE, SELFPAY ==
[2019-11-03 11:07] VITALS: BMI 42.5
[2019-11-03 11:42] VITALS: BP 151/86; PULSE 90; RESP 18; TEMP 36.6; O2SAT 97; BMI 42.2
[2019-11-03 13:03] VITALS: BP 173/97; PULSE 86; RESP 97
--- NOTE | 2019-11-03 13:11 | EKG12_ITS ---
Test Reason : HYPERTENSON Blood Pressure : / mmHG Vent. Rate : 086 BPM Atrial Rate : 086 BPM P-R Int : 232 ms QRS Dur : 114 ms QT Int : 386 ms P-R-T Axes : 040 -28 033 degrees QTc Int : 461 ms Sinus rhythm with 1st degree A-V block Incomplete right bundle branch block Borderline ECG Confirmed by ABUNDIO MAURICIO, SUKHI ([id number]), editor dictionary AMENA LOUIS ([id number]) on 11/05/2019 2:32:12 PM Referred By: SONA Confirmed By:DIDI DEL CASTILLO MD
--- NOTE | 2019-11-03 13:12 | CT_ITS ---
STUDY: CT MAXILLOFACIAL SINUSES REASON FOR EXAM: Female, 58 years old. SINUS INFECTION, WHEEZING. H/O SINUSITIS. RADIATION DOSAGE (If Supplied By Facility): CTDIvol = ( 33.06 ) mGy, DLP = ( 730.55 ) mGycm TECHNIQUE: The patient was scanned in a multi detector CT scanner. High resolution axial imaging was performed without the administration of intravenous contrast material. Sagittal and coronal images were reconstructed. Individualized dose optimization techniques were used for this CT. COMPARISON: Comparison is made with prior study dated March 17, 2013. FINDINGS: FRONTAL SINUSES: Normal aeration, without mucosal inflammatory disease. ETHMOIDAL SINUSES: Partial opacification of the ethmoid sinuses bilaterally. MAXILLARY SINUSES: Opacification of the maxillary sinuses bilaterally. SPHENOIDAL SINUSES: Normal aeration, without mucosal inflammatory disease. There is patency of the left maxillary infundibuli with normal uncinate processes, ethmoid bullae, and hiatus semilunaris. Normal bilateral middle turbinates. Normal bilateral inferior turbinates. Normal midline nasal septum. There is patency of the bilateral nasal airways. The visualized osseous structures are normal. The visualized bilateral orbital contents are normal. CT/Sinus/Facial Bone IMPRESSION: Opacification of the ethmoids and maxillary sinuses bilaterally. Electronically Signed: Lon Fuchs, at 14:43 EST , Service support ,
[2019-11-03 13:25] VITALS: PULSE 86; RESP 20
[2019-11-03] MEDS: Ipratropium/Albuterol Sulfate 3 ML AMPUL.NEB INHALATION (13:26)
--- NOTE | 2019-11-03 13:30 | RAD_ITS ---
STUDY: X-RAY CHEST REASON FOR EXAM: Female, 58 years old. HYPERTENSION, COUGH AND SOB TECHNIQUE: PA and lateral views of the chest. COMPARISON: Comparison is made with prior study dated October 26, 2019. FINDINGS: EKG electrodes are seen. Elevation of the right hemidiaphragm. There is no demonstrated pleural abnormality. Normal size heart. Normal mediastinum and yulisa. Normal visualized pulmonary arteries. Normal visualized aortic arch and descending thoracic aorta. There are diffuse degenerative changes of the visualized thoracic spine. Prior fusion in the lower cervical spine. There is no demonstrated abnormality of the visualized soft tissue structures of the upper abdomen. RAD/Chest PA and Lateral IMPRESSION: Stable examination. No acute abnormality is seen. Electronically Signed: Lon Fuchs, at 15:05 EST , Service support ,
[2019-11-03 14:15] LABS: Absolute Lymphocyte Count 2.32 X10^3/uL (0.83-4.51); Basophil# 0.06 X10^3/uL; Basophil% 0.8 % (0-1); Eosinophil# 0.19 X10^3/uL; Eosinophils% 2.6 % (0-5); Hematocrit 48.7 % (37-47); Hemoglobin 15.7 g/dL (12.0-15.0); Lymphocyte # 2.32 X10^3/ul (4.0); Lymphocyte % 31.4 % (19-41); Mean Corp Hgb Conc 32.2 g/dL (32-36); Mean Corpuscular Hgb 28.5 pg (27.0-32.0); Mean Corpuscular Volume 88.5 fL (81-99); Mean Platelet Vol. 10.5 fl (6.2-12.0); Monocyte# 0.74 X10^3/uL; NRBC Flagged by Analyzer 0 % (0-5); Neutrophil # 4.04 X10^3/uL (2.7-7.7); Neutrophil % 54.7 % (47-70); Platelet Count 227 K/mm3 (150-450); RBC Distribution Width CV 14.1 % (11.6-14.6); White Blood Count 7.4 K/mm3 (4.4-11.0)
[2019-11-03] MEDS: Metoclopramide 10 MG/2 ML Vial IV (14:16)
[2019-11-03] MEDS: MethylPREDNISolone 125 MG/2 ML Vial IV (14:16)
[2019-11-03] MEDS: Morphine 4 MG/ML Syringe IV (14:16)
[2019-11-03 14:32] LABS: Anion Gap 5 (5-15); BUN 12 mg/dL (7-18); BUN/Creat Ratio 19.3 RATIO (10-20); Calcium,Total 8.9 mg/dL (8.5-10.1); Chloride 111 mmol/L (98-107); Creatinine, Serum 0.62 mg/dL (0.55-1.02); EST Glomerular Filtration Rate 104 mL/min (>60); Est Glom Filt Rate - Afr Amer 126 mL/min (>60); Estimated Creatinine Clearance 84.37 ml/min; Glucose 131 mg/dL (74-106); Potassium 4.1 mmol/L (3.5-5.1); Sodium Level 143 mmol/L (136-145)
[2019-11-03 15:13] VITALS: BP 139/77; PULSE 86; RESP 16; O2SAT 94
--- NOTE | 2019-11-03 15:20 | ED.DCSUM_ITS ---
- ER Visit Summary Date of Service: 11/03/19 Chief Complaint: Headache, high blood pressure History of Present Illness: The patient is a [address] ortega, Dr. Lui, and Dr. Soria. She reports that she has a headache that began 3 weeks ago. Is a sharp, aching, throbbing pain to her face and retro-orbital area. Is 10-10 at worst and a 10 currently. Is decreased with a hot washcloth on her face. Is increased with movement. She denies any photophobia. She reports that she is supposed to be getting a CT scan of her sinuses today. Patient reports that in the past month she has been on a Z-Ron twice and finished doxycycline 1 week ago. She is also on a 4-day taper of prednisone. She denies any fever or chills. She has a sore throat is 4-10 in severity. She has had cough for the past 3 weeks productive yellow sputum without blood. She is had nausea. She denies any vomiting or diarrhea. Physical Examination: Vitals: Stable. Afebrile. General: Well-nourished and well-developed. Head: Normocephalic atraumatic. Neck: Supple, no lymphadenopathy. No JVD. Nontender. Cardiovascular: Regular rate and rhythm. No murmurs. Respiratory: No respiratory distress. Clear to auscultation bilaterally. Abdominal: Soft, nontender, nondistended, normal bowel sounds. No guarding, rebound, or peritoneal signs. Back: Nontender. Extremities: Nontender, no edema. Skin: Normal color, no rash. Neurologic: Alert and oriented ?3. Cranial nerves II through XII are intact. Normal strength and sensation. Psych: Normal affect. Test Results: EKG is sinus with first-degree AV block 86 with incomplete right bundle branch block. Troponin is negative. Chem-7 shows a chloride of 111 glucose 131. CBC shows an H&H of 15.7 and 48.7. Clinical Impression(s) from Imaging Studies Facial/Sinus 11/03/19 13:12 IMPRESSION: Opacification of the ethmoids and maxillary sinuses bilaterally. Electronically Signed: Lon Fuchs, at 14:43 EST , Service support , Chest X-Ray 11/03/19 13:30 IMPRESSION: Stable examination. No acute abnormality is seen. Electronically Signed: Lon Fuchs, at 15:05 EST , Service support , Emergency Department Course and Treatment: Patient was given a dose of morphine IV. She is resting comfortably. Treatment Plan: The patient has multiple antibiotic allergies. She has been on 3 rounds of antibiotics since this has started. I do not think that treating her with another round of antibiotics is in her best interest. She will be discharged with symptomatic care. Instructed to follow-up Dr. Magana for further evaluation and treatment. Return to the emergency department for any worsening symptoms. Disposition: To home in improved and stable condition. Impression: 1. Hypertension. 2. Sinusitis. This note was generated with [employer] dictation software. It may contain incorrect words, spelling, and punctuation that were not noted in review of the chart prior to signing ED Disposition - Plan for ED Patient: Disposition: Home or Assisted Living Instructions: SINUSITIS, No Abx Prescriptions: Ondansetron [Zofran Odt] 4 mg PO Q8H PRN PRN #10 tab PRN Reason: Nausea Prescription Printed Referrals: Ophelia Soria DO [Primary Care Provider] - 1 Week Wil Flowers MD [STAFF PHYSICIAN] - As soon as possible
[2019-11-03 15:32] VITALS: BP 137/76; PULSE 81; RESP 16; O2SAT 97
== END 2019-11-03 15:34 | disposition home or self-care (01) ==
LOC: ED 13:17
PROVIDERS: Emergency Provider Emergency Medicine; PCP Internal Medicine
DX: I10 Essential (primary) hypertension (principal); J32.9 Chronic sinusitis, unspecified; E11.9 Type 2 diabetes mellitus without complications; J45.909 Unspecified asthma, uncomplicated; Z79.82 Long term (current) use of aspirin; Z79.01 Long term (current) use of anticoagulants
CPT/HCPCS: 70486; 71046; 80048; 84484; 85025; 93005; 94640; 96361; 96374; 96375; 99285; J7040; A4216

== ENCOUNTER 2019-11-22 10:51 | Emergency (ER) | payer MEDICARE, SELFPAY ==
[2019-11-22 10:52] VITALS: BP 115/68; PULSE 95; RESP 16; TEMP 36.3; O2SAT 95; BMI 42.5
--- NOTE | 2019-11-22 11:41 | RAD_ITS ---
STUDY: X-RAY CHEST REASON FOR EXAM: Female, 59 years old. COUGH, VOMITING, FEVER SINCE 1218-19. HX ASTHMA TECHNIQUE: PA and lateral views of the chest. COMPARISON: Comparison is made with prior study dated November 03, 2019. FINDINGS: EKG electrodes are seen. There is stable elevation of the right hemidiaphragm. Mild increased markings at the lung bases suggests a mild basilar linear atelectasis and/or scarring. There is no demonstrated pleural abnormality. Normal size heart. Normal mediastinum and yulisa. Normal visualized pulmonary arteries. Normal visualized aortic arch and descending thoracic aorta. There are diffuse degenerative changes of the visualized thoracic spine. Normal visualized ribs, clavicles, and shoulders. There is no demonstrated abnormality of the visualized soft tissue structures of the upper abdomen. RAD/Chest PA and Lateral IMPRESSION: Elevation of the right hemidiaphragm. Mild increased markings at the lung bases suggestive of linear atelectasis and/or scarring. Electronically Signed: Lon Fuchs, at 12:57 EST , Service support ,
--- NOTE | 2019-11-22 11:43 | ED.DCSUM_ITS ---
History of Present Illness Chief Complaint: Fever Informant: Patient Onset: Yesterday Context: Gradual Onset Timing: Intermittent Current Severity: Mild Maximum Severity: Moderate Associated Symptoms: n/v/d, abd cramping Narrative: Patient developed a fever along with vomiting and diarrhea yesterday. She has had about 5 bouts of watery nonbloody diarrhea in the past 24 hours. She is currently on doxycycline status post a office septoplasty procedure which mostly involved balloon dilatation as opposed to excision of parts of the septum, last week. She has chronic sinusitis and has been having an episode for the last month or more, in addition to a cough. She has been having green sputum flowing from her nose since the procedure, things feel like they are less congested now. She had some blood after the procedure for that day but that is resolved. She denies any dyspnea. She has been around others who have had similar symptoms of vomiting diarrhea and fever lately/recently. - Past Medical History (1) Asthma Status: Chronic (2) Atherosclerotic heart disease of redding coronary artery without angina pectoris Status: Chronic (3) COPD (chronic obstructive pulmonary disease) Status: Chronic (4) Carotid artery disease Status: Chronic (5) Chronic airway obstruction, not elsewhere classified Status: Chronic (6) Essential hypertension Status: Chronic (7) GERD (gastroesophageal reflux disease) Status: Chronic (8) History of pulmonary embolism Status: Chronic (9) Hyperlipidemia Status: Chronic (10) Morbid obesity Status: Chronic (11) CHELSEY treated with BiPAP Status: Chronic (12) Sinusitis Status: Chronic (13) Type 2 diabetes mellitus Status: Chronic Past Medical History - Allergies and Home Meds Allergies/Adverse Reactions: Allergies clindamycin Allergy (Verified 11/22/19 10:54) Rash erythromycin base [Erythromycin Base] Allergy (Verified 11/22/19 10:54) Rash omalizumab [From Xolair] Allergy (Verified 11/22/19 10:54) Chest tightness Penicillins Allergy (Verified 11/22/19 10:54) Rash sulfamethoxazole [From Bactrim] Allergy (Verified 11/22/19 10:54) Chest tightness trimethoprim [From Bactrim] Allergy (Verified 11/22/19 10:54) Chest tightness Sulfa (Sulfonamide Antibiotics) Adverse Reaction (Unknown, Verified 11/22/19 10:54) Unknown Primary Care Physician: Ophelia Soria DO [Primary Care Provider] - Surgical History: appendectomy, herniorrhaphy, - - Cervical disc surgery, rotator cuff surgery, . Smoking Status: Never smoker Drugs: None - Family History Maternal Family History: Family History (Last Reviewed 11/03/19 @ 11:09 by ADAM Pantoja) Father Heart disease Diabetes CAD (coronary artery disease) Mother CAD (coronary artery disease) Brother CAD (coronary artery disease) Family History: Reports: Diabetes Paternal Family History: Family History (Last Reviewed 11/03/19 @ 11:09 by ADAM Pantoja) Father Heart disease Diabetes CAD (coronary artery disease) Mother CAD (coronary artery disease) Brother CAD (coronary artery disease) Family History: Reports: Heart Disease Review of Systems General: Reports: Fever, Malaise. Denies: Chills, Sweats Eyes: Denies: Visual changes - bilaterally, Diplopia ENT: Reports: Rhinorrhea. Denies: Bilateral ear pain, Sore throat Cardiovascular: Denies: Chest pain, Palpitations Respiratory: Reports: Cough, Sputum. Denies: Dyspnea, Dyspnea on exertion Gastrointestinal: Reports: Abdominal pain, Nausea, Vomiting, Diarrhea. Denies: Melena, Hematochezia Genitourinary: Denies: Dysuria, Hematuria, Frequency Musculoskeletal: Denies: Neck pain, Back pain, Extremity Pain Skin: Denies: Rash, Wounds Neurological: Reports: Headache. Denies: Weakness, Numbness Physical Exam Vital Signs/Narrative: Vital Signs Temp Pulse Resp BP Pulse Ox 11/22/19 10:52 97.4 F L 95 16 115/68 95 Inital Vital Signs reviewed: Yes General: Well nourished, Well developed, Obese, No Acute Distress Head: Normocephalic, Atraumatic Eyes: Perrl, EOMI ENT: Moist mucous membranes, No rhinorrhea Neck: Supple, Nontender Cardiovascular: Regular rate, Regular rhythm, Murmur - systolic, 3/6 Respiratory: No distress, CTA bilaterally, Chest nontender Abdomen: Soft, Nontender, Nondistended, Normal bowel sounds. Negative for: Pulsatile mass Back: Nontender, Normal Inspection Extremities: Nontender, No edema. Negative for: Calf Tenderness Skin: Normal color, No rash, No Trauma Neurological: Alert, Oriented x3, Cranial nerves II-XII grossly intact, Normal Strength, Normal Sensation, Normal Gait Psychological: Normal affect, Normal Mood Diagnostic/Tx/Re-eval Impressions Chest X-Ray 11/22/19 11:41 IMPRESSION: Elevation of the right hemidiaphragm. Mild increased markings at the lung bases suggestive of linear atelectasis and/or scarring. Electronically Signed: Lon Fuchs, at 12:57 EST , Service support , 11/22/19 11:41 Chest PA and Lateral [RAD] Stat 11/22/19 12:07 Mucosa - Nasopharyngeal Influenza Types A,B Direct FA (LANA) - Final Laboratory Results 11/22/19 11/22/19 11:50 11:50 WBC 10.0 RBC 5.35 Hgb 15.5 H Hct 48.5 H MCV 90.7 MCH 29.0 MCHC 32.0 RDW Std Deviation 49.7 H RDW Coeff of Carmencita 15.2 H Plt Count 240 MPV 10.3 Immature Gran % (Auto) 0.700 Neut % (Auto) 75.7 H Lymph % (Auto) 14.5 L [place]ola % (Auto) 7.7 Eos % (Auto) 0.9 Baso % (Auto) 0.5 Absolute Neuts (auto) 7.5 Absolute Lymphs (auto) 1.44 Nucleated RBC % 0 Sodium 142 Potassium 3.5 Chloride 110 H Carbon Dioxide 29.0 Anion Gap 3 L BUN 16 Creatinine 0.60 Estim Creat Clear Calc 86.10 Est GFR (MDRD) Af Amer 130 Est GFR (MDRD) Non-Af 108 BUN/Creatinine Ratio 26.5 H Glucose 132 H Calcium 8.0 L Total Bilirubin 0.40 AST 23 ALT 36 Alkaline Phosphatase 70 Total Protein 6.0 L Albumin 2.9 L Globulin 3.1 Albumin/Globulin Ratio 0.9 - Medical Decision Making Labs are unremarkable, chest x-ray shows nothing acute and influenza is negative. She was not able to provide diarrhea for C. difficile testing. I suspect she has gastroenteritis, viral etiologies are in the differential diagnosis given the high prevalence in the area recently. At this time I would recommend finishing her antibiotic which is almost finished, and not starting any others empirically for this. I advised supportive care and following up. She was given medications to get her feeling better including Tylenol for headache. She responded better to Phenergan and then she did Zofran so we will give her a prescription for that. I do not think this has anything to do with her nasal procedure recently, she is already on antibiotics for that and things are improved since her office procedure. ED Disposition - Plan for ED Patient: Disposition: Home or Assisted Living Diagnosis: Gastroenteritis, Sinusitis Instructions: GASTROENTERITIS, Viral (5y-Adult) Prescriptions: proMETHazine tablet [Phenergan] 25 mg PO Q6H PRN PRN #10 tab PRN Reason: Nausea Transmission Status: Pending to [facility] Referrals: Ophelia Soria, [Primary Care Provider] - 3-5 Days if not improving
[2019-11-22] MEDS: Ondansetron 4 MG/2 ML Vial IV (12:08)
[2019-11-22] MEDS: 0.9% Normal Saline 1,000 ML 999 ML IV (12:08)
[2019-11-22] MEDS: Dicyclomine 10 MG Capsule 20 MG PO (12:08)
[2019-11-22 12:13] LABS: Absolute Lymphocyte Count 1.44 X10^3/uL (0.83-4.51); Absolute Neutrophil Count 7.5 X10^3/uL (2.0-7.7); Basophil# 0.05 X10^3/uL; Basophil% 0.5 % (0-1); Eosinophil# 0.09 X10^3/uL; Eosinophils% 0.9 % (0-5); Hematocrit 48.5 % (37-47); Hemoglobin 15.5 g/dL (12.0-15.0); Lymphocyte # 1.44 X10^3/ul (4.0); Lymphocyte % 14.5 % (19-41); Mean Corpuscular Volume 90.7 fL (81-99); Mean Platelet Vol. 10.3 fl (6.2-12.0); Monocyte# 0.77 X10^3/uL; Monocyte% 7.7 % (0-10); NRBC Flagged by Analyzer 0 % (0-5); Neutrophil # 7.54 X10^3/uL (2.7-7.7); Neutrophil % 75.7 % (47-70); Platelet Count 240 K/mm3 (150-450); RBC Distribution Width CV 15.2 % (11.6-14.6); RBC Distribution Width SD 49.7 fl (35.1-43.9); Red Blood Count 5.35 M/mm3 (4.2-5.4)
[2019-11-22 12:14] VITALS: PULSE 85; RESP 19; TEMP 37.3; O2SAT 93
[2019-11-22 12:33] LABS: ALB/GLOB Ratio 0.9 RATIO (0.9-2.4); AST(SGOT) 23 U/L (15-37); Alanine Aminotransfer ALT/SGPT 36 U/L (13-56); Albumin, Serum 2.9 g/dL (3.2-5.0); Alkaline Phosphatase 70 U/L (45-117); Anion Gap 3 (5-15); BUN 16 mg/dL (7-18); BUN/Creat Ratio 26.5 RATIO (10-20); Chloride 110 mmol/L (98-107); EST Glomerular Filtration Rate 108 mL/min (>60); Est Glom Filt Rate - Afr Amer 130 mL/min (>60); Globulin 3.1 g/dL (2.2-4.2); Glucose 132 mg/dL (74-106); Potassium 3.5 mmol/L (3.5-5.1); Sodium Level 142 mmol/L (136-145)
[2019-11-22] MEDS: Ketorolac 15 MG/ML Vial IV (13:03)
[2019-11-22] MEDS: proMETHazine 25 MG/ML Syringe 12.5 MG IV (13:03)
[2019-11-22 13:20] VITALS: BP 97/46; PULSE 82; RESP 20; TEMP 36.7; O2SAT 93
[2019-11-22] MEDS: Acetaminophen 500 MG Tablet 1000 MG PO (13:46)
[2019-11-22 14:15] VITALS: BP 96/42; PULSE 78; RESP 18; O2SAT 94
== END 2019-11-22 14:17 | disposition home or self-care (01) ==
PROVIDERS: Emergency Provider Emergency Medicine; PCP Internal Medicine
DX: K52.9 Noninfective gastroenteritis and colitis, unspecified (principal); J32.9 Chronic sinusitis, unspecified; I25.10 Atherosclerotic heart disease of native coronary artery without angina pectoris; I10 Essential (primary) hypertension; J44.9 Chronic obstructive pulmonary disease, unspecified; E11.9 Type 2 diabetes mellitus without complications; E78.5 Hyperlipidemia, unspecified; K21.9 Gastro-esophageal reflux disease without esophagitis; G47.33 Obstructive sleep apnea (adult) (pediatric); E66.01 Morbid (severe) obesity due to excess calories; Z86.711 Personal history of pulmonary embolism; Z79.01 Long term (current) use of anticoagulants; Z79.4 Long term (current) use of insulin
CPT/HCPCS: 71046; 80053; 85025; 87804; 96361; 96374; 96375; 99284; J7030; A4216; J2405

== ENCOUNTER → 2019-12-01 09:05 | Outpatient (CLI) | payer MEDICARE, SELFPAY ==
[2019-11-22 10:52] VITALS: BMI 42.5
[2019-12-01 09:49] LABS: Absolute Lymphocyte Count 2.91 X10^3/uL (0.83-4.51); Absolute Neutrophil Count 3.9 X10^3/uL (2.0-7.7); Basophil# 0.08 X10^3/uL; Eosinophil# 0.14 X10^3/uL; Eosinophils% 1.8 % (0-5); Hematocrit 46.8 % (37-47); Hemoglobin 14.7 g/dL (12.0-15.0); Lymphocyte # 2.91 X10^3/ul (4.0); Lymphocyte % 36.5 % (19-41); Mean Corp Hgb Conc 31.4 g/dL (32-36); Mean Corpuscular Hgb 28.1 pg (27.0-32.0); Mean Corpuscular Volume 89.5 fL (81-99); Mean Platelet Vol. 10.3 fl (6.2-12.0); Monocyte# 0.89 X10^3/uL; Monocyte% 11.2 % (0-10); NRBC Flagged by Analyzer 0 % (0-5); Neutrophil # 3.89 X10^3/uL (2.7-7.7); Neutrophil % 48.6 % (47-70); Platelet Count 292 K/mm3 (150-450); RBC Distribution Width CV 14.3 % (11.6-14.6); RBC Distribution Width SD 46.1 fl (35.1-43.9); Red Blood Count 5.23 M/mm3 (4.2-5.4)
[2019-12-01 10:16] LABS: Microalbumin,Random Urine 19.2 mg/L (NO RANGE EST.); Microalbumin:Creatinine Ratio 22.4 mg/g CRE (<30 mg/g CRE)
[2019-12-01 10:22] LABS: Hemoglobin A1c 6.7 % (4.2-6.3)
[2019-12-01 10:28] LABS: ALB/GLOB Ratio 0.8 RATIO (0.9-2.4); AST(SGOT) 31 U/L (15-37); Alanine Aminotransfer ALT/SGPT 43 U/L (13-56); Alkaline Phosphatase 91 U/L (45-117); Anion Gap 6 (5-15); BUN 9 mg/dL (7-18); Calcium,Total 8.7 mg/dL (8.5-10.1); Chloride 111 mmol/L (98-107); Cholesterol 137 mg/dL (200); Creatinine, Serum 0.56 mg/dL (0.55-1.02); EST Glomerular Filtration Rate 116 mL/min (>60); Est Glom Filt Rate - Afr Amer 141 mL/min (>60); Globulin 3.6 g/dL (2.2-4.2); Glucose 120 mg/dL (74-106); High Density Lipoprotein 35 mg/dL; Potassium 3.8 mmol/L (3.5-5.1); Protein, Total 6.6 g/dL (6.4-8.2); Sodium Level 144 mmol/L (136-145); Thyroid Stim Hormone (TSH) 2.08 uIU/mL (0.358-3.74); Triglycerides 203 mg/dL; Very Low Density Lipoprotein 41 mg/dL (5-40)
== END ==
PROVIDERS: PCP Internal Medicine; Visit Provider Internal Medicine
DX: E11.65 Type 2 diabetes mellitus with hyperglycemia (principal); E11.8 Type 2 diabetes mellitus with unspecified complications; I10 Essential (primary) hypertension
CPT/HCPCS: 36415; 80053; 80061; 82043; 82570; 83036; 84443; 85025

== ENCOUNTER → 2019-12-02 | Outpatient (CLI) | payer MEDICARE, SELFPAY ==
[2019-11-22 10:52] VITALS: BMI 42.5
== END | disposition home or self-care (01) ==
LOC: LABSPEC 15:58
PROVIDERS: PCP Internal Medicine; Referring Provider Otolaryngology; Visit Provider Otolaryngology
DX: J32.9 Chronic sinusitis, unspecified (principal)
CPT/HCPCS: 87070; 87077; 87186; 87205

== ENCOUNTER 2019-12-27 09:26 | Inpatient (IN) | payer MEDICARE, MEDICAID, SELFPAY ==
[2019-12-27] VITALS (15 sets, daily range): BP systolic 123–145; BP diastolic 69–78; PULSE 88–113; RESP 16–28; TEMP 36.6–38.1; O2SAT 92–99; BMI 42.4; BMI 42.2; BMI 42.3
--- NOTE | 2019-12-27 09:36 | EKG12_ITS ---
Test Reason : SOB Blood Pressure : / mmHG Vent. Rate : 106 BPM Atrial Rate : 106 BPM P-R Int : 212 ms QRS Dur : 078 ms QT Int : 336 ms P-R-T Axes : 047 -34 021 degrees QTc Int : 446 ms Sinus tachycardia with 1st degree A-V block Left axis deviation Junctional ST depression, probably normal Abnormal ECG Confirmed by ABUNDIO MAURICIO, SUKHI ([id number]), photographic editor AMENA LOUIS ([id number]) on 01/03/2020 11:09:30 AM Referred By: Confirmed By:DIDI DEL CASTILLO MD
--- NOTE | 2019-12-27 09:36 | RAD_ITS ---
STUDY: X-RAY CHEST REASON FOR EXAM: Female, 59 years old. Cough, fever, wheezing, sob TECHNIQUE: AP and lateral views of the chest. COMPARISON: Comparison is made with prior study dated November 22, 2019. FINDINGS: EKG electrodes are seen. There is evidence of vascular congestion and mild degree of CHF. There is no demonstrated pleural abnormality. There is mild cardiac enlargement. Normal mediastinum and yulisa. Normal visualized pulmonary arteries. There is atherosclerotic tortuosity of the aortic arch and descending thoracic aorta. Normal visualized thoracic spine. Prior fusion in the lower cervical spine. This patient is There is no demonstrated abnormality of the visualized soft tissue structures of the upper abdomen. RAD/Chest PA and Lateral IMPRESSION: Mild cardiomegaly with CHF. Electronically Signed: Lon Fuchs, at 11:50 EDT , Service support ,
--- NOTE | 2019-12-27 09:43 | ED.VIS.GEN ---
History of Present Illness Chief Complaint: Cough Informant: Patient Onset: Yesterday Context: Sudden Onset Quality: Subjective fever, wheezing, shortness of breath and cough Location: Respiratory Current Severity: Moderate Maximum Severity: Severe Worsened by: Activity Relieved by: Nothing Associated Symptoms: Viral symptoms Narrative: Patient is a 59-year-old woman with history of asthma, obstructive sleep apnea, hypertension, diabetes, hypercholesterolemia who presents with respiratory symptoms that started this past weekend. She reports subjective fever. She denies chills. Denies headache. She denies ocular, visual auditory symptoms. She does report mild nasal congestion. Denies sore throat. She denies chest pain. She denies abdominal pain. She does report dysuria and frequency. Her blood sugar this morning was 175. She denies myalgias or arthralgias. Prior similar symptoms: No Recent Illness/Hospitalization: No - Past Medical History (1) Chronic asthma with acute exacerbation Status: Acute (2) Atherosclerotic heart disease of [place] coronary artery without angina pectoris Status: Chronic (3) Body mass index 45.0-49.9, adult Status: Chronic (4) Essential hypertension Status: Chronic (5) GERD (gastroesophageal reflux disease) Status: Chronic (6) History of pulmonary embolism Status: Chronic (7) Hyperlipidemia Status: Chronic (8) CHELSEY treated with BiPAP Status: Chronic (9) Type 2 diabetes mellitus Status: Chronic Past Medical History - Allergies and Home Meds Allergies/Adverse Reactions: Allergies clindamycin Allergy (Verified 12/27/19 10:03) Rash erythromycin base [Erythromycin Base] Allergy (Verified 12/27/19 10:03) Rash omalizumab [From Xolair] Allergy (Verified 12/27/19 10:03) Chest tightness Penicillins Allergy (Verified 12/27/19 10:03) Rash sulfamethoxazole [From Bactrim] Allergy (Verified 12/27/19 10:03) Chest tightness trimethoprim [From Bactrim] Allergy (Verified 12/27/19 10:03) Chest tightness Sulfa (Sulfonamide Antibiotics) Adverse Reaction (Unknown, Verified 12/27/19 10:03) Unknown Primary Care Physician: Ophelia Soria DO [Primary Care Provider] - Prior records reviewed: Yes Surgical History: appendectomy, herniorrhaphy, - - Cervical disc surgery, rotator cuff surgery, . Lives: Alone Smoking Status: Never smoker Alcohol: None Drugs: None - Family History Maternal Family History: Family History (Last Reviewed 11/03/19 @ 11:09 by ADAM Pantoja) Father Heart disease Diabetes CAD (coronary artery disease) Mother CAD (coronary artery disease) Brother CAD (coronary artery disease) Family History: Reports: Diabetes Paternal Family History: Family History (Last Reviewed 11/03/19 @ 11:09 by ADAM Pantoja) Father Heart disease Diabetes CAD (coronary artery disease) Mother CAD (coronary artery disease) Brother CAD (coronary artery disease) Family History: Reports: Heart Disease Review of Systems General: Reports: Chills, Fever, Malaise, Subjective. Denies: Sweats Eyes: Denies: Visual changes - bilaterally, Blurred Vision - bilaterally, Diplopia ENT: Reports: Sore throat. Denies: Bilateral ear pain, Rhinorrhea Cardiovascular: Denies: Chest pain, Palpitations Respiratory: Reports: Dyspnea, Cough, Dyspnea on exertion. Denies: Sputum, Orthopnea, Paroxysmal nocturnal dyspnea Gastrointestinal: Denies: Abdominal pain, Nausea, Vomiting, Diarrhea, Melena, Hematochezia Genitourinary: Reports: Dysuria, Frequency. Denies: Hematuria Musculoskeletal: Denies: Myalgias, Arthralgias, Neck pain, Back pain, Swelling, Extremity Pain, -, - Skin: Denies: Rash, Wounds Neurological: Denies: Headache, Numbness Endocrine: Denies: Polyuria, Polydipsia Hematologic: Denies: Easy bruising Physical Exam Vital Signs/Narrative: Vital Signs Temp Pulse Resp BP Pulse Ox 12/27/19 09:27 98.4 F 113 H 16 142/77 H 99 Inital Vital Signs reviewed: Yes - Patient's tachypneic with audible wheezing General: Well nourished, Well developed, Obese, Acute Distress Head: Normocephalic, Atraumatic Eyes: Perrl, EOMI. Negative for: Pale conjunctiva, Scleral icterus ENT: Moist mucous membranes, TM's clear, Nasal congestion. Negative for: No rhinorrhea Neck: Supple, Nontender, No lymphadenopathy, No JVD Cardiovascular: Regular rhythm, No murmurs, Normal S1, Normal S2, Tachycardia Respiratory: Chest nontender, Wheezing, Decreased Air Movement. Negative for: No distress, CTA bilaterally Abdomen: Soft, Nontender, Nondistended, Normal bowel sounds Rectal: Deferred Back: Nontender, Normal Inspection Extremities: Nontender, No edema Skin: Normal color, No rash, No Trauma. Negative for: Cyanosis, Diaphoresis, Jaundice Neurological: Alert, Oriented x3, Cranial nerves II-XII grossly intact, Normal Strength, Normal Sensation Psychological: Normal affect, Normal Mood Diagnostic/Tx/Re-eval Chest X-Ray - ED: 2 View, Normal, Mediastinum, Bony Structures, No Acute Disease, - - 2 view x-ray of the chest is limited secondary to poor inspiratory volume and body habitus. There is no obvious infiltrate. There is no pneumothorax or effusion noted. 12/27/19 09:36 Chest PA and Lateral [RAD] Stat 12/27/19 09:51 Mucosa - Nasopharyngeal Influenza Types A,B Direct FA (LANA) - Final Influenzae A Laboratory Results 12/27/19 12/27/19 09:58 09:58 WBC 6.8 RBC 5.12 Hgb 14.6 Hct 45.4 MCV 88.7 MCH 28.5 MCHC 32.2 RDW Std Deviation 45.9 H RDW Coeff of Carmencita 14.3 Plt Count 221 MPV 10.8 Immature Gran % (Auto) 0.700 Neut % (Auto) 71.9 H Lymph % (Auto) 13.3 L [place] % (Auto) 12.5 H Eos % (Auto) 0.4 Baso % (Auto) 1.2 H Absolute Neuts (auto) 4.9 Absolute Lymphs (auto) 0.90 Nucleated RBC % 0 Sodium 140 Potassium 3.7 Chloride 108 H Carbon Dioxide 26.0 Anion Gap 6 BUN 7 Creatinine 0.68 Estim Creat Clear Calc 75.97 Est GFR (MDRD) Af Amer 114 Est GFR (MDRD) Non-Af 94 BUN/Creatinine Ratio 10.3 Glucose 117 H Calcium 8.6 - EKG Initial EKG Interpretation: Sinus Tachycardia - This tachycardia with first-degree AV block. Ventricular rate is 106. TX interval is 212 ms. QRS duration 70 ms. QT duration 336 ms. [place] to left. There is artifact and there is no ST depression which computer is reading. Leave is to be secondary to respiratory distress and artifact - Medical Decision Making Patient presents with respiratory symptoms a history of asthma. She has audible wheezing. Will treat with albuterol and prednisone. Chest x-ray is obtained to assess for pneumonia. Influenza screen to assess for influenza. Because she is diabetic basic and above panel was obtained to assess blood sugar as well as electrolytes and anion gap. CBC to assess for anemia and white count. Because she complains of urinary symptoms will obtain a UA. Patient was reassessed at 11:46. There is wheezing throughout. She states her illness started on Friday. Will administer first dose of Tamiflu. Nurses been asked to ambulate her to determine if she desaturates. Patient was only able to ambulate 1015 feet and her pulse ox dropped to 88%. She became more tachypneic and tachycardic. Will contact hospitalist for admission. ED Disposition - Plan for ED Patient: Disposition: Acute Care Hospital [facility] Diagnosis: Influenza, Exacerbation of intermittent asthma, Hypoxia, Essential hypertension, Type 2 diabetes mellitus Referrals: Ophelia Soria DO [Primary Care Provider] -
[2019-12-27] MEDS: Albuterol 2.5 MG/3 ML VIAL.NEB. INHALATION ×3 (09:54)
[2019-12-27 10:08] LABS: Absolute Neutrophil Count 4.9 X10^3/uL (2.0-7.7); Basophil# 0.08 X10^3/uL; Basophil% 1.2 % (0-1); Eosinophil# 0.03 X10^3/uL; Eosinophils% 0.4 % (0-5); Hematocrit 45.4 % (37-47); Hemoglobin 14.6 g/dL (12.0-15.0); Lymphocyte % 13.3 % (19-41); Mean Corp Hgb Conc 32.2 g/dL (32-36); Mean Corpuscular Hgb 28.5 pg (27.0-32.0); Mean Corpuscular Volume 88.7 fL (81-99); Mean Platelet Vol. 10.8 fl (6.2-12.0); Monocyte# 0.85 X10^3/uL; Monocyte% 12.5 % (0-10); NRBC Flagged by Analyzer 0 % (0-5); Neutrophil # 4.87 X10^3/uL (2.7-7.7); Neutrophil % 71.9 % (47-70); Platelet Count 221 K/mm3 (150-450); RBC Distribution Width CV 14.3 % (11.6-14.6); RBC Distribution Width SD 45.9 fl (35.1-43.9); Red Blood Count 5.12 M/mm3 (4.2-5.4); White Blood Count 6.8 K/mm3 (4.4-11.0)
[2019-12-27] MEDS: predniSONE 20 MG Tablet 60 MG PO (10:27)
[2019-12-27 10:32] LABS: Anion Gap 6 (5-15); BUN 7 mg/dL (7-18); BUN/Creat Ratio 10.3 RATIO (10-20); Calcium,Total 8.6 mg/dL (8.5-10.1); Chloride 108 mmol/L (98-107); Creatinine, Serum 0.68 mg/dL (0.55-1.02); EST Glomerular Filtration Rate 94 mL/min (>60); Est Glom Filt Rate - Afr Amer 114 mL/min (>60); Estimated Creatinine Clearance 75.97 ml/min; Glucose 117 mg/dL (74-106); Potassium 3.7 mmol/L (3.5-5.1); Sodium Level 140 mmol/L (136-145)
[2019-12-27] MEDS: Oseltamivir Phosphate 75 MG Capsule PO ×2 (12:03→22:28)
--- NOTE | 2019-12-27 13:02 | HP.PCM_ITS ---
Problem List (1) Hyperlipidemia Status: Chronic Qualifiers: Hyperlipidemia type: unspecified Qualified Code(s): E78.5 - Hyperlipidemia, unspecified (2) Influenza Status: Acute (3) Exacerbation of intermittent asthma Status: Acute (4) Hypoxia Status: Acute (5) Essential hypertension Status: Chronic (6) Chronic airway obstruction, not elsewhere classified Status: Chronic (7) GERD (gastroesophageal reflux disease) Status: Chronic Qualifiers: Esophagitis presence: esophagitis presence not specified Qualified Code(s): K21.9 - Gastro-esophageal reflux disease without esophagitis (8) Asthma Status: Chronic Qualifiers: Asthma severity: unspecified severity Asthma persistence: unspecified Asthma complication type: unspecified Qualified Code(s): J45.909 - Unspecified asthma, uncomplicated (9) Type 2 diabetes mellitus Status: Chronic Qualifiers: Diabetes mellitus rn long term care insulin use: with care home use Diabetes chriss itus complication status: with unspecified complications (10) History of pulmonary embolism Status: Chronic History of Present Illness Date of Admission: 12/27/19 Chief Complaint: Cough, headache, fever. The patient is a 59 year old F with past medical history as mentioned above presented to the emergency room because of cough, headache and fever. Her illness started 2 days ago with cough, was productive with clear sputum, associated with headache and fever of up to 101 Fahrenheit. Later on the same day, she started complaining of shortness of breath, mainly with activity, associated with significant wheezing and fatigue, aggravated by activity and no relieving factors. She states that she finished Levaquin just yesterday and that was prescribed for sinusitis a week ago. She denied chest pain or palpitation. Patient denied any recent travel inside or outside the country. No sick contacts around her. In the emergency department, patient had low-grade fever, was dyspneic, tachypneic and tachycardic. Reportedly according to ER physician, her pulse ox came down to 88% with ambulation after she received prednisone and breathing treatment. Routine blood work was unremarkable. Chest x-ray revealed mild cardiomegaly, no acute infiltrate or consolidation. She is being admitted for acute asthma exacerbation probably triggered by acute influenza A URTI and complicated by hypoxia. Past Medical History Past Medical History (Chronic Problems): Chronic Problems (Last Reviewed 11/03/19 @ 11:09 by Luly Cheatham, TRANSPORTATION SECURITY OFFICER-C) Hyperlipidemia (Chronic) Essential hypertension (Chronic) Carotid artery disease (Chronic) Atherosclerotic heart disease of [place] coronary artery without angina pectoris (Chronic) Chronic airway obstruction, not elsewhere classified (Chronic) Sinusitis (Chronic) GERD (gastroesophageal reflux disease) (Chronic) Bilateral carotid bruits (Chronic) Body mass index 45.0-49.9, adult (Chronic) Asthma (Chronic) Type 2 diabetes mellitus (Chronic) Morbid obesity (Chronic) History of pulmonary embolism (Chronic) CHELSEY treated with BiPAP (Chronic) COPD (chronic obstructive pulmonary disease) (Chronic) Medical History: Medical History (Last Reviewed 11/03/19 @ 11:09 by Luly Cheatham NP-C) Essential hypertension (Chronic) I10 Carotid artery disease (Chronic) I77.9 Atherosclerotic heart disease of [place] coronary artery without angina pectoris (Chronic) I25.10 GERD (gastroesophageal reflux disease) (Chronic) K21.9 Bilateral carotid bruits (Chronic) R09.89 Body mass index 45.0-49.9, adult (Chronic) Z68.42 Asthma (Chronic) J45.909 Type 2 diabetes mellitus (Chronic) E11.9 Morbid obesity (Chronic) E66.01 History of pulmonary embolism (Chronic) Z86.711 CHELSEY treated with BiPAP (Chronic) G47.33 COPD (chronic obstructive pulmonary disease) (Chronic) J44.9 Personal history of anaphylaxis Z87.892 Diastolic heart failure I50.30 Allergies clindamycin Allergy (Verified 12/27/19 10:03) Rash erythromycin base [Erythromycin Base] Allergy (Verified 12/27/19 10:03) Rash omalizumab [From Xolair] Allergy (Verified 12/27/19 10:03) Chest tightness Penicillins Allergy (Verified 12/27/19 10:03) Rash sulfamethoxazole [From Bactrim] Allergy (Verified 12/27/19 10:03) Chest tightness trimethoprim [From Bactrim] Allergy (Verified 12/27/19 10:03) Chest tightness Sulfa (Sulfonamide Antibiotics) Adverse Reaction (Unknown, Verified 12/27/19 10:03) Unknown Home Medications: Ambulatory Orders Medication Instructions Recorded Clobetasol Propionate/Emoll 15 gm TP BID PRN PRN 01/26/14 [Clobetasol Emollient 0.05% Crm] Fluoxetine [Prozac] 40 mg PO DAILY 01/26/14 Tiotropium [place] [Spiriva 18 MCG] 1 puff INHALATION DAILY 01/26/14 Epi Pen (for allergic rxn) 0.3 mg IM X1 PRN 08/08/15 Aspirin [Adult Low Dose Aspirin EC] 81 mg PO QHS 01/06/16 Docusate Sodium [Colace] 100 mg PO BID 01/06/16 Furosemide [Lasix] 20 mg PO DAILY 01/06/16 Levocetirizine Dihydrochloride 5 mg PO DAILY 01/06/16 [Xyzal] Multivit-Min/Iron/Folic/Lutein 1 ea PO DAILY 01/06/16 [Centrum Silver Women Tablet] Omeprazole [Prilosec] 40 mg PO DAILY 01/06/16 Potassium Chloride [K-Dur] 10 meq PO BID 01/06/16 Warfarin [Coumadin] 8 mg PO DAILY@1700 02/01/16 Albuterol Inhaler [Ventolin Hfa] 2 puff INHALATION Q4H PRN PRN 05/27/16 Azelastine HCl [Astelin] 1 spray NASAL BID 05/27/16 Ca/D3/Mag/Zinc/Roly/Bello/Mgbor 1 ea PO BID 05/27/16 [Caltrate 600+D3+Min Chew Tab] Albuterol Aerosols [Ventolin 2.5 mg INHALATION Q2H PRN PRN #1 11/15/17 Aerosols] box Ipratropium/Albuterol Sulfate 3 ml INHALATION Q4H.RT #1 box 11/15/17 [Duoneb] pregabalin 100 mg capsule 100 mg PO BID 05/04/18 montelukast 10 mg tablet 10 mg PO DAILY #30 tab 11/05/18 Fenofibrate [Tricor] 72.5 mg PO DAILY 04/26/19 cyclobenzaprine 10 mg tablet 10 mg PO BID PRN tab 08/09/19 diltiazem HCl 120 mg 120 mg PO BID cap 08/09/19 capsule,extended release 12 hr ergocalciferol (vitamin D2) 1,250 50,000 unit PO QWEEK 08/09/19 mcg (50,000 unit) capsule guaifenesin 600 mg tablet, 600 mg PO BID 08/09/19 extended release 12 hr moexipril 15 mg tablet 15 mg PO DAILY 08/09/19 rizatriptan 5 mg tablet 5 mg PO ONCE PRN 08/09/19 tizanidine 4 mg tablet 4 mg PO QHS PRN 08/09/19 trazodone 50 mg tablet 25 mg PO DAILY PRN PRN 08/09/19 Ondansetron [Zofran Odt] 4 mg PO Q8H PRN PRN #10 tab 11/03/19 Beclomethasone Diprop Inhaler 1 puff INHALATION BID 11/22/19 [Qvar 80 Mcg Inhaler] Budesonide/Formoterol Fumarate 2 puff IH BID 11/22/19 [Symbicort 160-4.5 Mcg Inhaler] Chromium Picolinate 1,000 mcg PO DAILY 11/22/19 Coconut Oil 100 gm MC DAILY 11/22/19 Cyanocobalamin [Vitamin B12] 1,000 mcg PO DAILY@0800 11/22/19 Dapagliflozin Propanediol [Farxiga] 10 mg PO DAILY 11/22/19 Fluticasone 110 Mcg [Flovent (SP)] 2 puff INHALATION BID 11/22/19 Hydrocodone/Acetaminophen 1 ea PO Q8H PRN PRN 11/22/19 [Hydrocodon-Acetaminophen 5-325] Insulin Degludec [Tresiba] 50 unit SQ BID 11/22/19 L.acidoph,Paracasei, B.lactis 1 ea PO DAILY 11/22/19 [Probiotic] Pitavastatin Calcium [Livalo] 4 mg PO DAILY 11/22/19 Semaglutide [Ozempic] 1 mg SQ QWEEK 11/22/19 hydrALAZINE [Apresoline] 25 mg PO DAILY 11/22/19 proMETHazine tablet [Phenergan] 25 mg PO Q6H PRN PRN #10 tab 11/22/19 Surgical History: Surgical History (Last Reviewed 11/03/19 @ 11:09 by ADAM Pantoja) History of section Z98.891 History of hernia repair Z98.890, Z87.19 History of neck surgery Z98.890 History of rotator cuff surgery Z98.890 Hx of appendectomy Z90.49 Surgical History: appendectomy, herniorrhaphy, - - Cervical disc surgery, rotator cuff surgery, . 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 Lea Graves MD) Father Heart disease Diabetes CAD (coronary artery disease) Mother CAD (coronary artery disease) Brother CAD (coronary artery disease) History Items: Diabetes Paternal Family History: Family History (Last Reviewed 12/27/19 @ 13:[address] Lea Graves MD) Father Heart disease Diabetes CAD (coronary artery disease) Mother CAD (coronary artery disease) Brother CAD (coronary artery disease) History Items: Heart Disease Review of Systems Constitutional: Reports: Fever, Weakness, Fatigue. Denies: Anorexia, Chills Eyes: Denies: Blurred vision, Double vision, Drainage, Vision Change HEENT: Reports: Head Aches. Denies: Difficulty Hearing, Ear Pain, Eye Pain, Nasal Congestion, Sore Throat Cardiovascular: Denies: Chest Pain, Chest Pressure, Edema, Heaviness, Light Headedness, Paroxysmal Noc. Dyspnea, Syncope Respiratory: Reports: Cough, Shortness of Breath, Shortness of breath upon exertion, Sputum production, Wheezing. Denies: Hemoptysis, Pleuritic Pain Gastrointestinal: Denies: Abdominal Pain, Constipation, Diarrhea, Nausea, Vomiting Genitourinary: Denies: Dysuria, Frequency, Hematuria Musculoskeletal: Denies: Arm Pain, Back Pain, Foot Pain Skin: Denies: Dryness, Rash Neurological: Reports: Headaches. Denies: Balance problems, Blurred vision, Double vision, Incoordination, Numbness, Tingling Psychiatric: Reports: Anxiety, Depression Endocrine: Denies: Change in Body Habitus, Polydipsia, Polyuria VTE Information - Inpt Only VTE Present on Admission: No VTE Mechan Device Prophylaxis: None VTE Pharm Prophylaxis ordered?: No Patient Problems: Active and Suspected Problems (Last Reviewed 11/03/19 @ 11:09 by CHAN PantojaC) Influenza (Acute) Exacerbation of intermittent asthma (Acute) Hypoxia (Acute) - Physical Exam Vitals/I&O's: Vital Signs Temp Pulse Resp BP Pulse Ox 100.5 F H 107 H 19 H 123/75 H 93 12/27/19 12:13 12/27/19 12:13 12/27/19 12:13 12/27/19 12:13 12/27/19 12:13 Oxygen Delivery Method Room Air Weight: 247 lb Body Mass Index (BMI) 42.4 Finger Stick Blood Glucose 135 General: Alert, Oriented x3, Cooperative, - - Moderately short of breath, audible wheezing. HEENT: Atraumatic, PERRLA, EOMI, Normocephalic Oral: Moist Mucosa, No Gingival or Mucosal Lesions/ Ulcerations Neck: Supple, No JVD, Negative Carotid Bruits, Trachea Midline, Thyroid Normal Size and Texture Lungs: No rales, Diminished, Short of Breath, Wheezes, - - Decreased breath sounds bilateral, bilateral inspiratory and expiratory wheezes. Cardiovascular: Regular rate, Regular Rhythm, Normal S1, Normal S2, PMI Normal, Tachycardic Abdomen: Bowel Sounds Present, Soft, Non Tender, Non-Distended, No Hepato- splenomegaly, Obese Extremities: No clubbing, No cyanosis, No edema Skin: No rashes, No breakdown Lymphatic: No Cervical, Supraclavicular, or Inguinal Adenopathy Neurological: Cranial nerves II-XII grossly intact, Motor Exam 5/5 strength throughout Psych/Mental Status: Normal Affect, Appropriate, Alert and oriented to time, place, person, mood and affect Microbiology Past 72 Hours 12/27/19 09:51 Mucosa - Nasopharyngeal Influenza Types A,B Direct FA (LANA) - Final Influenzae A Laboratory Results 12/27/19 09:58: WBC 6.8, RBC 5.12, Hgb 14.6, Hct 45.4, MCV 88.7, MCH 28.5, MCHC 32.2, RDW Std Deviation 45.9 H, RDW Coeff of Carmencita 14.3, Plt Count 221, MPV 10.8, Immature Gran % (Auto) 0.700, Neut % (Auto) 71.9 H, Lymph % (Auto) 13.3 L, [place] % (Auto) 12.5 H, Eos % (Auto) 0.4, Baso % (Auto) 1.2 H, Absolute Neuts (auto) 4.9, Absolute Lymphs (auto) 0.90, Nucleated RBC % 0 12/27/19 09:58: Sodium 140, Potassium 3.7, Chloride 108 H, Carbon Dioxide 26.0, Anion Gap 6, BUN 7, Creatinine 0.68, Estim Creat Clear Calc 75.97, Est GFR (MDRD) Af Amer 114, Est GFR (MDRD) Non-Af 94, BUN/Creatinine Ratio 10.3, Glucose 117 H, Calcium 8.6 Clinical Impression(s) from Imaging Studies Chest X-Ray 12/27/19 09:36 IMPRESSION: Mild cardiomegaly with CHF. Electronically Signed: Lon Fuchs, at 11:50 EDT , Service support , Assessment/Plan All Active Problems (Last Reviewed 11/03/19 @ 11:09 by Luly Cheatham, YEE-C) Influenza (Acute) Exacerbation of intermittent asthma (Acute) Hypoxia (Acute) This is a 59 years old female patient presented to the emergency room because of cough, headache, fever, shortness of breath and wheezing and she was found to have acute asthma exacerbation which is triggered by influenza A and also found to have hypoxia upon ambulation. #1 acute asthma exacerbation/SIRS: Without evidence of sepsis or severe sepsis. Patient received p.o. prednisone and breathing treatment in the ED, remained dyspneic, tachypneic, tachycardic with audible wheezing. Pulse ox reportedly dropped down to 88% on ambulation. Chest x-ray showed mild cardiomegaly, no acute findings. Plan: Admit to [facility]Sur floor, start IV Solu-Medrol, DuoNeb every 4 hours, albuterol PRN, incentive spirometer, chest physiotherapy, Robitussin as needed, Tylenol PRN, repeat chest x-ray tomorrow morning, PT OT evaluation and treatment. #2 acute influenza A: Started on Tamiflu in the ED. Plan to continue Tamiflu twice daily for 5 days. #3 hypoxia: Reportedly according to ER physician, pulse ox came down to 88% on ambulation in the emergency department after patient received prednisone and breathing treatment. At this time, pulse ox is maintained on room air. Plan as above, IV steroids, bronchodilators, incentive spirometer, repeat ambulatory pulse ox tomorrow. #4 type 2 diabetes mellitus: ADA diet, Accu-Cheks, insulin sliding scale, continue farxiga, Tresiba and Ozempic. #5 hypertension: Blood pressure stable, continue Cardizem, Lasix, hydralazine. #6 history of PE/DVT: Continue Coumadin, will check INR. #7 GERD: Continue PPI. #8 hyperlipidemia: Continue statins. #9 depression: Continue Prozac and trazodone. #10 DVT prophylaxis: Continue Coumadin, check INR. This note was generated with [employer] dictation software. It may contain incorrect words, spelling, and punctuation that were not noted in checking the note before signing. Inpatient E&M: [id number] Init Hosp L3
--- NOTE | 2019-12-27 13:35 | CASEMGMT ---
Social Work Note SW received message from pt's [employer] VAD[employer] Davila stating pt is active with [employer], has 10 meals weekly through [employer], and has Emergency Response Button. Livier Hammond WOOD SHOP TEACHER, EYE TECHNICIAN
[2019-12-27 13:56] LABS: International Normalized Ratio 1.8; Prothrombin Time (Protime)PT. 21.1 SECONDS (11.7-14.9)
[2019-12-27] MEDS: Ipratropium/Albuterol Sulfate 3 ML AMPUL.NEB INHALATION ×2 (15:18→20:02)
[2019-12-27] MEDS: Acetaminophen 325 MG Tablet 650 MG PO (16:11)
[2019-12-27] MEDS: 0.9% Saline Lock 10 ML Syringe IV ×2 (16:14→22:19)
[2019-12-27] MEDS: Insulin Lispro 100 UNIT/ML INSULN.PEN SC ×2 (16:17→22:23)
[2019-12-27 16:39] LABS: Bacteria 0 SEEN /hpf (None Seen); Mucous, Urine 0 SEEN /hpf (<or=2+); Red Blood Cells-Urine 0 SEEN /hpf (0-5); Squamous Epithelial Cells - UA 0 SEEN /hpf (5-10); White Blood Cells 0 SEEN /hpf (0-5)
[2019-12-27 16:51] LABS: Color, Urine Yellow (Yellow); Glucose, Dipstick 1000 mg/dl (Normal); Ketone-Dipstick Negative (Negative); Leukocyte Esterase-Dipstick Negative /ul (Negative); Nitrite-Dipstick Negative (Negative); Occult Blood-Urine Negative /ul (Negative); Protein-Dipstick Negative (Negative); Urine Bilirubin Dipstick Negative (Negative); Urine Clarity Clear (Clear); Urine Urobilinogen Normal (Normal)
[2019-12-27] MEDS: cycloBENZAPRine HCl 10 MG Tablet PO (17:40)
[2019-12-27 18:16] LABS: Bedside Glucose 157 mg/dL (70-110)
[2019-12-27] MEDS: Azelastine HCl NASAL.SRY 1 SPRAY NASAL (22:26)
[2019-12-27] MEDS: Aspirin E.C. 81 MG Tablet PO (22:27)
[2019-12-27] MEDS: Docusate Sodium 100 MG Capsule PO (22:27)
[2019-12-27] MEDS: Atorvastatin Calcium 20 MG Tablet PO (22:27)
[2019-12-27] MEDS: dilTIAZem CD 120 MG Capsule PO (22:28)
[2019-12-27] MEDS: Pregabalin 50 MG Capsule 100 MG PO (22:31)
[2019-12-27 22:36] LABS: Bedside Glucose 205 mg/dL (70-110)
[2019-12-28] VITALS (17 sets, daily range): BP systolic 134–142; BP diastolic 68–76; PULSE 86–97; RESP 12–20; TEMP 36.4–36.7; O2SAT 91–98
[2019-12-28] MEDS: 0.9% Saline Lock 10 ML Syringe IV (06:42)
[2019-12-28] MEDS: Insulin Lispro 100 UNIT/ML INSULN.PEN SC ×4 (06:44→22:24)
[2019-12-28 06:51] LABS: Bedside Glucose 176 mg/dL (70-110)
[2019-12-28] MEDS: Ipratropium/Albuterol Sulfate 3 ML AMPUL.NEB INHALATION ×4 (07:15→18:59)
--- NOTE | 2019-12-28 07:19 | RAD_ITS ---
STUDY: X-RAY CHEST REASON FOR EXAM: Female, 59 years old. INFLUENZA A, HYPOXIA TECHNIQUE: PA and lateral views of the chest. COMPARISON: Comparison is made with prior study dated December 27, 2019. FINDINGS: EKG electrodes are seen. There is elevation of the right hemidiaphragm. Residual central vascular congestion and mild CHF although there has been improvement. There is no demonstrated pleural abnormality. Normal size heart. Normal mediastinum and yulisa. Normal visualized pulmonary arteries. There is atherosclerotic tortuosity of the aortic arch and descending thoracic aorta. There are diffuse degenerative changes of the visualized thoracic spine. Prior fusion in the lower cervical spine. There is no demonstrated abnormality of the visualized soft tissue structures of the upper abdomen. RAD/Chest PA and Lateral IMPRESSION: Residual mild degree of CHF although there has been improvement. Electronically Signed: Lon Fuchs, at 15:09 EDT , Service support ,
--- NOTE | 2019-12-28 08:19 | PN_ITS ---
Patient Problems: Active and Suspected Problems (Last Reviewed 11/03/19 @ 11:09 by ADAM Pantoja) Influenza (Acute) Exacerbation of intermittent asthma (Acute) Hypoxia (Acute) Subjective: Chief complaint: Follow-up after admission for acute asthma exacerbation, acute influenza A and hypoxia. Patient seen and examined. No acute events overnight. This morning, she is feeling better, shortness of breath improved, still having some wheezing. Denies fever or chills. Continues to have some cough with minimal sputum. She has been afebrile, pulse ox is 93% on room air, other vital signs are stable. - Physical Exam Vitals/I&O's: Vital Signs Temp Pulse Resp BP Pulse Ox 97.8 F 88 18 134/69 H 93 12/28/19 04:09 12/28/19 04:33 12/28/19 04:09 12/28/19 04:09 12/28/19 04:09 Oxygen Delivery Method Room Air Weight: 246 lb 14.684 oz Body Mass Index (BMI) 42.3 Finger Stick Blood Glucose 135 Intake and Output for Last 24 Hours 12/26/19 12/27/19 12/28/19 23:59 23:59 23:59 Intake Total 800 / 800 700 / 700 Output Total 450 / 450 550 / 550 Balance 350 / 350 150 / 150 General: Alert, Oriented x3, Cooperative, No apparent distress, - HEENT: Atraumatic, PERRLA, EOMI, Normocephalic Oral: Moist Mucosa, No Gingival or Mucosal Lesions/ Ulcerations Neck: Supple, No JVD, Negative Carotid Bruits, Trachea Midline, Thyroid Normal Size and Texture Lungs: No rales, Diminished, Rhonchi, Wheezes, - - Decreased breath sounds bilateral, bilateral end expiratory wheezes. Cardiovascular: Regular rate, Regular Rhythm, Normal S1, Normal S2, PMI Normal, Murmur Abdomen: Bowel Sounds Present, Soft, Non Tender, Non-Distended, No Hepato- splenomegaly, Obese Extremities: No clubbing, No cyanosis, No edema Skin: No rashes, No breakdown Lymphatic: No Cervical, Supraclavicular, or Inguinal Adenopathy Neurological: Cranial nerves II-XII grossly intact, Neuro grossly intact Psych/Mental Status: Normal Affect, Appropriate, Alert and oriented to time, place, person, mood and affect Microbiology Past 72 Hours 12/27/19 09:51 Mucosa - Nasopharyngeal Influenza Types A,B Direct FA (LANA) - Final Influenzae A Laboratory Results 12/27/19 09:58: WBC 6.8, RBC 5.12, Hgb 14.6, Hct 45.4, MCV 88.7, MCH 28.5, MCHC 32.2, RDW Std Deviation 45.9 H, RDW Coeff of Carmencita 14.3, Plt Count 221, MPV 10.8, Immature Gran % (Auto) 0.700, Neut % (Auto) 71.9 H, Lymph % (Auto) 13.3 L, Robertson % (Auto) 12.5 H, Eos % (Auto) 0.4, Baso % (Auto) 1.2 H, Absolute Neuts (auto) 4.9, Absolute Lymphs (auto) 0.90, Nucleated RBC % 0 12/27/19 09:58: Sodium 140, Potassium 3.7, Chloride 108 H, Carbon Dioxide 26.0, Anion Gap 6, BUN 7, Creatinine 0.68, Estim Creat Clear Calc 75.97, Est GFR (MDRD) Af Amer 114, Est GFR (MDRD) Non-Af 94, BUN/Creatinine Ratio 10.3, Glucose 117 H, Calcium 8.6 12/27/19 13:15: PT 21.1 H, INR 1.8 12/27/19 16:16: POC Glucose 157 H 12/27/19 16:20: Urine Color Yellow, Urine Clarity Clear, Urine pH 8.0, Ur Specific [place] 1.010, Urine Protein Negative, Urine Glucose (UA) 1000 H, Urine Ketones Negative, Urine Occult Blood Negative, Urine Nitrite Negative, Urine Bilirubin Negative, Urine Urobilinogen Normal, Ur Leukocyte Esterase Negative, Urine RBC 0 SEEN, Urine WBC 0 SEEN, Ur Squamous Epith Cells 0 SEEN, Urine Bacteria 0 SEEN, Urine Mucus 0 SEEN 12/27/19 22:17: POC Glucose 205 H 12/28/19 06:40: POC Glucose 176 H Current Medications Acetaminophen (Tylenol) 650 mg PO Q6H PRN PRN PRN Reason: Pain Score 1-10/Temp > 100.7 F Last Admin: 12/27/19 16:11 Dose: 650 mg Documented by: Hydrocodone Bitart/Acetaminophen ([place] 5mg-325mg) 1 tablet PO Q8H PRN PRN PRN Reason: Pain Score 4-10/10 Albuterol Sulfate (Ventolin Aerosols) 2.5 mg INHALATION Q2H PRN PRN PRN Reason: Shortness of Breath/Wheezing Albuterol/Ipratropium (Duoneb) 3 ml INHALATION Q4HWA.RT [facility] Last Admin: 12/28/19 07:15 Dose: 3 ml Documented by: Aspirin (Ecotrin) 81 mg PO QHS [facility] Last Admin: 12/27/19 22:27 Dose: 81 mg Documented by: Atorvastatin Calcium (Lipitor) 20 mg PO QHS [facility] Last Admin: 12/27/19 22:27 Dose: 20 mg Documented by: Azelastine HCl (Astelin) 1 spray NASAL BID [facility] Last Admin: 12/27/19 22:26 Dose: 1 spray Documented by: Cyclobenzaprine HCl (Flexeril) 10 mg PO BID PRN PRN Reason: muscle spasms Last Admin: 12/27/19 17:40 Dose: 10 mg Documented by: Diltiazem HCl (Cardizem Cd) 120 mg PO BID [facility] Last Admin: 12/27/19 22:28 Dose: 120 mg Documented by: Docusate Sodium (Colace) 100 mg PO BID [facility] Last Admin: 12/27/19 22:27 Dose: 100 mg Documented by: Empagliflozin (Jardiance) 25 mg PO DAILY [facility]ibrate ([facility]or) [facility] Fluoxetine HCl (Prozac) 40 mg PO DAILY [facility] Furosemide (Lasix) 20 mg PO DAILY [facility] Glucagon () 1 mg IM .X1 PRN PRN Reason: Hypoglycemia Guaifenesin (Robitussin Dm) 10 ml PO Q6H PRN PRN PRN Reason: COUGH/CONGESTION Hydralazine HCl (Apresoline) 25 mg PO DAILY [facility] Dextrose (Dextrose 10%-Water) 250 mls @ 999 mls/hr IV .Q16M PRN; Protocol PRN Reason: HYPOGLYCEMIA Sodium Chloride () 250 mls @ 15 mls/hr IV .H20M23H PRN PRN Reason: Saline Flush Insulin Glargine (Lantus ([facility])) 50 units SC BID [facility] Last Admin: 12/27/19 22:22 Dose: 50 units Documented by: Insulin Human Lispro (Humalog Kwikpen ([facility])) 0 unit SC ACHS [facility]; Protocol Last Admin: 12/28/19 06:44 Dose: 1 units Documented by: Lisinopril (Zestril) 20 mg PO DAILY [facility] Loratadine (Claritin) 5 mg PO DAILY [facility] Montelukast Sodium (Singulair) 10 mg PO DAILY [facility] Ondansetron HCl (Zofran) 4 mg IV Q8H PRN PRN PRN Reason: NAUSEA/VOMITING Oseltamivir Phosphate (Tamiflu) 75 mg PO BID [facility] Stop: 12/31/19 22:01 Last Admin: 12/27/19 22:28 Dose: 75 mg Documented by: Pantoprazole Sodium (Protonix) 40 mg PO DAILY [facility] Potassium Chloride (K-Dur) 10 meq PO BID [facility] Last Admin: 12/27/19 22:27 Dose: 10 meq Documented by: Prednisone () 40 mg PO DAILY@0800 [facility] Pregabalin (Lyrica) 100 mg PO BID [facility] Last Admin: 12/27/19 22:31 Dose: 100 mg Documented by: Promethazine HCl (Phenergan Tablet) 25 mg PO Q6H PRN PRN PRN Reason: NAUSEA Rizatriptan Benzoate (Maxalt) 5 mg PO DAILY PRN PRN Reason: MIGRAINE SYMPTOMS Senna/Docusate Sodium (Senokot-S, Nia-Colace) 2 tablet PO BID PRN PRN PRN Reason: Constipation Sodium Chloride () 10 - 40 ml IV UD PRN PRN Reason: SALINE FLUSH Last Admin: 12/28/19 06:42 Dose: 10 ml Documented by: Tizanidine HCl (Zanaflex) 4 mg PO QHS PRN PRN Reason: .MUSCLE SPASMS Warfarin Sodium (Coumadin (Pbkc)) 8 mg PO DAILY@1700 [facility] Last Admin: 12/27/19 17:38 Dose: 8 mg Documented by: Zolpidem Tartrate (Ambien (Generic)) 5 mg PO QHS PRN PRN PRN Reason: INSOMNIA Medical Necessity - Tobacco Use Smoking Status: Never smoker Assessment/Plan All Active Problems (Last Reviewed 11/03/19 @ 11:09 by ADAM Pantoja) Influenza (Acute) Exacerbation of intermittent asthma (Acute) Hypoxia (Acute) This is a 59 years old female patient presented to the emergency room because of cough, headache, fever, shortness of breath and wheezing and she was found to have acute asthma exacerbation which is triggered by influenza A and also found to have hypoxia upon ambulation. #1 acute asthma exacerbation/SIRS: She is on IV Solu-Medrol and bronchodilators. Her symptoms started to improve but still having some wheezing. Pulse ox is maintained on room air. Chest x-ray showed mild cardiomegaly, no acute findings. Repeat chest x-ray was ordered yesterday but not done yet. She has been afebrile, other vital signs are stable. Plan: DC IV Solu-Medrol, start oral prednisone, ambulatory pulse oximeter, plan to DC home tomorrow. #2 acute influenza A: She is on Tamiflu in the ED. Plan to continue Tamiflu twice daily for 5 days. #3 hypoxia: Symptoms improved, pulse ox is maintained at 92% on room air. Reportedly according to ER physician, pulse ox came down to 88% on ambulation in the emergency department after patient received prednisone and breathing treatment. Plan to perform ambulatory pulse oximeter as above. #4 type 2 diabetes mellitus: Blood sugar stable, continue ADA diet, Accu-Cheks, insulin sliding scale, continue farxiga, Tresiba and Ozempic. #5 hypertension: Blood pressure stable, continue Cardizem, Lasix, hydralazine. #6 history of PE/DVT: Continue Coumadin, INR is 1.8. #7 GERD: Continue PPI. #8 hyperlipidemia: Continue statins. #9 depression: Continue Prozac and trazodone. #10 DVT prophylaxis: On Coumadin, INR is 1.8. This note was generated with [employer] dictation software. It may contain incorrect words, spelling, and punctuation that were not noted in checking the note before signing. Inpatient E&M: 27828 Subs Hosp L2
[2019-12-28] MEDS: Azelastine HCl NASAL.SRY 1 SPRAY NASAL ×2 (09:52→22:12)
[2019-12-28] MEDS: predniSONE 20 MG Tablet 40 MG PO (09:53)
[2019-12-28] MEDS: Montelukast 10 MG Tablet PO (09:54)
[2019-12-28] MEDS: Docusate Sodium 100 MG Capsule PO ×2 (09:54→22:13)
[2019-12-28] MEDS: Lisinopril 20 MG Tablet PO (09:54)
[2019-12-28] MEDS: Furosemide 20 MG Tablet PO (09:54)
[2019-12-28] MEDS: Loratadine 10 MG Tablet 5 MG PO (09:54)
[2019-12-28] MEDS: hydrALAZINE 25 MG Tablet PO (09:54)
[2019-12-28] MEDS: Fenofibrate 145 MG Tablet 72.5 MG PO (09:54)
[2019-12-28] MEDS: Pantoprazole Sodium 40 MG Tablet PO (09:54)
[2019-12-28] MEDS: FLUoxetine 20 MG Capsule 40 MG PO (09:54)
[2019-12-28] MEDS: dilTIAZem CD 120 MG Capsule PO ×2 (09:55→22:13)
[2019-12-28] MEDS: Oseltamivir Phosphate 75 MG Capsule PO ×2 (09:55→22:13)
[2019-12-28] MEDS: Empagliflozin 25 MG Tablet PO (09:55)
[2019-12-28] MEDS: Pregabalin 50 MG Capsule 100 MG PO ×2 (10:00→22:13)
--- NOTE | 2019-12-28 10:12 | CASEMGMT ---
Addendum entered by Janak Mesa 12/28/19 10:49: PT/OT dell pending Original Note: RN CM ASSESSMENT Pt currently in isolation precautions. RN CM chart review completed for majority of information. RN CM to door of room to discuss further information/details not able to be obtained from chart review. Some information relayed through pt's RN, [place], who is in room at bedside with pt at this time. PCP: Dr Soria Preferred Pharmacy: [facility] Insurance: [employer], Medicaid Prescription Benefit: Yes Living Will/HPOA: Has both LW and Healthcare POA on file @ [facility]. POA is her , Alirio Kelley LNOK: Alirio Kelley-- Living Arrangements: Lives with her . has been having difficulty showering lately and has had a decline in ambulation. was just approved for Passport services recently and has been approved for aide services but she does not know when they will be available. Transportation: Pt states she usually drives herself and her , but d/t illness recently, has not been able to. States her daughter can usually assist with transportation but she is out of town currently. She has arrangements for someone else to take her home @ discharge. DME: has the following DME: nebulizer, glucometer, walker. Does not have home O2. Given list of local DME companies. Pt's preference is [facility]. needs a shower chair. She states she is having her Passport CM assist her with this. HHC: Has had [facility] in the past and wants them @ discharge. Call placed to Nai @ [facility] and referral made for SN, PT/OT, and aides. She was made aware anticipate discharge tomorrow 12/28. Pt wishes to return home w/[facility]. CM to follow for home oxygen needs and any further discharge planning/needs. Pt voices no further concerns/needs at this time. Advised pt to ask for CM if any further questions/concerns/needs arise. Voices understanding. PLAN: Home [facility]: SN, PT/OT, and aides Will need Home oxygen testing completed prior to discharge. If qualifies for Home O2. DME preference is [facility] Coleman ARDON RN, CM
[2019-12-28 11:46] LABS: Bedside Glucose 188 mg/dL (70-110)
[2019-12-28 11:46] LABS: Bedside Glucose 238 mg/dL (70-110)
--- NOTE | 2019-12-28 16:01 | CHAPLAIN ---
Type of Pastoral Visit _x__ Initial Visit ___ Follow-up Visit ___ On-call Visit ___ General Patient Visit ___ Spiritual Assessment ___ Family Conference ___ Bereavement ___ Rapid Response ___ Code Blue ___ Other (describe below) Pastoral Care Referral From _x__ Patient ___ Family ___ Nurse ___ Physician ___ Police Or Patrol Park Officer ___ Higher Level Teaching Assistant ___ Other (describe below) Sacrament/Intervention _x__ Active listening ___ Anointing ___ Mosque ___ Bereavement ___ Communion _x__ Cathi exploration ___ _x__ Life review _x__ Prayer ___ Reconciliation ___ Sacrament of Sick _x__ Supportive presence ___ Wedding ___ Other (describe below) Pastoral Comments patient requested notification of her personal caregiver; this was done by this subway repair supervisor
[2019-12-28 16:15] LABS: Bedside Glucose 205 mg/dL (70-110)
[2019-12-28] MEDS: Atorvastatin Calcium 20 MG Tablet PO (22:12)
[2019-12-28] MEDS: Aspirin E.C. 81 MG Tablet PO (22:13)
[2019-12-28 22:31] LABS: Bedside Glucose 222 mg/dL (70-110)
[2019-12-29] VITALS (10 sets, daily range): BP systolic 131–148; BP diastolic 53–77; PULSE 81–89; RESP 12–22; TEMP 36.4–36.6; O2SAT 93–96
[2019-12-29 06:31] LABS: Bedside Glucose 118 mg/dL (70-110)
[2019-12-29] MEDS: Ipratropium/Albuterol Sulfate 3 ML AMPUL.NEB INHALATION ×2 (06:59→11:04)
[2019-12-29] MEDS: Lisinopril 20 MG Tablet PO (08:25)
[2019-12-29] MEDS: Montelukast 10 MG Tablet PO (08:25)
[2019-12-29] MEDS: Furosemide 20 MG Tablet PO (08:25)
[2019-12-29] MEDS: Oseltamivir Phosphate 75 MG Capsule PO (08:25)
[2019-12-29] MEDS: FLUoxetine 20 MG Capsule 40 MG PO (08:25)
[2019-12-29] MEDS: Pantoprazole Sodium 40 MG Tablet PO (08:25)
[2019-12-29] MEDS: predniSONE 20 MG Tablet 40 MG PO (08:26)
[2019-12-29] MEDS: Docusate Sodium 100 MG Capsule PO (08:26)
[2019-12-29] MEDS: Loratadine 10 MG Tablet 5 MG PO (08:26)
[2019-12-29] MEDS: Fenofibrate 145 MG Tablet 72.5 MG PO (08:26)
[2019-12-29] MEDS: Azelastine HCl NASAL.SRY 1 SPRAY NASAL (08:27)
[2019-12-29] MEDS: dilTIAZem CD 120 MG Capsule PO (08:27)
[2019-12-29] MEDS: Empagliflozin 25 MG Tablet PO (08:27)
[2019-12-29] MEDS: Pregabalin 50 MG Capsule 100 MG PO (08:27)
[2019-12-29] MEDS: hydrALAZINE 25 MG Tablet PO (08:29)
--- NOTE | 2019-12-29 09:02 | PCM.DC ---
- Discharge Diagnoses Current Active Problems: Current Active and Chronic Problems (Last Reviewed 11/03/19 @ 11:09 by ADAM Pantoja) Influenza (Acute) Exacerbation of intermittent asthma (Acute) Hypoxia (Acute) Essential hypertension (Chronic) Type 2 diabetes mellitus (Chronic) You will use the following diet at home:: Calorie/Carbohydrate Controlled (specify 1200, 1400, etc) - 1800 SRINIVASAN., Cardiac Your food should be the consistency of: Regular Discharge Activity: Return to Normal Activity Weight Bearing Status: Weight bearing as tolerated Call your doctor if you observe: Fever of 101 or Higher, Shortness of breath, Dizziness, Fainting spells, Chest pain, Increased palpitations (irregular heartbeat), Uncontrolled pain Instructions: Adult Self-Care for Colds and Flu, Influenza Additional Instructions: Please take 40 mg of Lasix daily instead of 20 mg. Allergies/Adverse Reactions: Allergies clindamycin Allergy (Verified 12/27/19 10:03) Rash erythromycin base [Erythromycin Base] Allergy (Verified 12/27/19 10:03) Rash omalizumab [From Xolair] Allergy (Verified 12/27/19 10:03) Chest tightness Penicillins Allergy (Verified 12/27/19 10:03) Rash sulfamethoxazole [From Bactrim] Allergy (Verified 12/27/19 10:03) Chest tightness trimethoprim [From Bactrim] Allergy (Verified 12/27/19 10:03) Chest tightness Sulfa (Sulfonamide Antibiotics) Adverse Reaction (Unknown, Verified 12/27/19 13:59) Unknown shortness of breath Medications to take at Discharge Clobetasol Propionate/Emoll [Clobetasol Emollient 0.05% Crm] 15 gm TP BID PRN PRN 01/26/14 Fluoxetine [Prozac] 40 mg PO DAILY 01/26/14 Tiotropium [place] [Spiriva 18 MCG] 1 puff INHALATION DAILY 01/26/14 Epi Pen (for allergic rxn) 0.3 mg IM X1 PRN 08/08/15 Aspirin [Adult Low Dose Aspirin EC] 81 mg PO QHS 01/06/16 Docusate Sodium [Colace] 100 mg PO BID 01/06/16 Levocetirizine Dihydrochloride [Xyzal] 5 mg PO DAILY 01/06/16 Multivit-Min/Iron/Folic/Lutein [Centrum Silver Women Tablet] 1 ea PO DAILY 01/06/16 Omeprazole [Prilosec] 40 mg PO DAILY 01/06/16 Potassium Chloride [K-Dur] 10 meq PO BID 01/06/16 Warfarin [Coumadin] 8 mg PO DAILY@1700 02/01/16 Albuterol Inhaler [Ventolin Hfa] 2 puff INHALATION Q4H PRN PRN 05/27/16 Azelastine HCl [Astelin] 1 spray NASAL BID 05/27/16 Ca/D3/Mag/Zinc/Roly/Bello/Mgbor [Caltrate 600+D3+Min Chew Tab] 1 ea PO BID 05/27/16 Albuterol Aerosols [Ventolin Aerosols] 2.5 mg INHALATION Q2H PRN PRN #1 box 11/15/17 Ipratropium/Albuterol Sulfate [Duoneb] 3 ml INHALATION Q4H.RT #1 box 11/15/17 pregabalin 100 mg capsule 100 mg PO BID 05/04/18 montelukast 10 mg tablet 10 mg PO DAILY #30 tab 11/05/18 Fenofibrate [Tricor] 72.5 mg PO DAILY 04/26/19 cyclobenzaprine 10 mg tablet 10 mg PO BID PRN tab 08/09/19 diltiazem HCl 120 mg capsule,extended release 12 hr 120 mg PO BID cap 08/09/19 ergocalciferol (vitamin D2) 1,250 mcg (50,000 unit) capsule 50,000 unit PO QWEEK 08/09/19 guaifenesin 600 mg tablet, extended release 12 hr 600 mg PO BID 08/09/19 moexipril 15 mg tablet 15 mg PO DAILY 08/09/19 rizatriptan 5 mg tablet 5 mg PO ONCE PRN 08/09/19 tizanidine 4 mg tablet 4 mg PO QHS PRN 08/09/19 trazodone 50 mg tablet 25 mg PO DAILY PRN PRN 08/09/19 Ondansetron [Zofran Odt] 4 mg PO Q8H PRN PRN #10 tab 11/03/19 Beclomethasone Diprop Inhaler [Qvar 80 Mcg Inhaler] 1 puff INHALATION BID 11/22/19 Budesonide/Formoterol Fumarate [Symbicort 160-4.5 Mcg Inhaler] 2 puff IH BID 11/22/19 Chromium Picolinate 1,000 mcg PO DAILY 11/22/19 Coconut Oil 100 gm MC DAILY 11/22/19 Cyanocobalamin [Vitamin B12] 1,000 mcg PO DAILY@0800 11/22/19 Dapagliflozin Propanediol [Farxiga] 10 mg PO DAILY 11/22/19 Fluticasone 110 Mcg [Flovent 110 Mcg] 2 puff INHALATION BID 11/22/19 Hydrocodone/Acetaminophen [Hydrocodon-Acetaminophen 5-325] 1 ea PO Q8H PRN PRN 11/22/19 Insulin Degludec [Tresiba] 50 unit SQ BID 11/22/19 L.acidoph,Paracasei, B.lactis [Probiotic] 1 ea PO DAILY 11/22/19 Pitavastatin Calcium [Livalo] 4 mg PO DAILY 11/22/19 Semaglutide [Ozempic] 1 mg SQ QWEEK 11/22/19 hydrALAZINE [Apresoline] 25 mg PO DAILY 11/22/19 proMETHazine tablet [Phenergan tablet] 25 mg PO Q6H PRN PRN #10 tab 11/22/19 Furosemide [Lasix] 40 mg PO DAILY #0 12/29/19 Oseltamivir Phosphate [Tamiflu] 75 mg PO BID #5 cap 12/29/19 Prednisone 40 mg PO DAILY #30 tab 12/29/19 The following prescriptions were given: Prednisone 40 mg PO DAILY #30 tab Transmission Status: Pending to [facility] Oseltamivir Phosphate [Tamiflu] 75 mg PO BID #5 cap Transmission Status: Pending to [facility] Primary Care Physician: Ophelia Soria DO [Primary Care Provider] - Please follow up with your Primary Care Physician in: 2 WEEKS. Test Results: Test results from this visit will be discussed in further detail at your follow-up appointment, if applicable.
--- NOTE | 2019-12-29 10:26 | CASEMGMT ---
Social Work Note Pt is discharging home today. LUANNE placed a call to pt's CM Melyclotilde Davila at [facility] and left message informing her that pt will be discharged home today. LUANNE faxed discharge paperwork to [facility]. Livier Hammond CATERING TRUCK OPERATOR, PHOTOGRAPHER'S MODEL
[2019-12-29 11:11] LABS: Bedside Glucose 146 mg/dL (70-110)
--- NOTE | 2019-12-29 11:50 | PCM.DC.SUM ---
Discharge Date and Diagnosis - Problem List Patient Problems: Active and Suspected Problems (Last Reviewed 11/03/19 @ 11:09 by ADAM Pantoja) Influenza (Acute) Exacerbation of intermittent asthma (Acute) Hypoxia (Acute) Date of Admission: 12/27/19 Date of Discharge: 12/29/19 - Primary Discharge Diagnosis Active and Suspected Problems (Last Reviewed 11/03/19 @ 11:09 by ADAM Pantoja) #1 acute asthma exacerbation. #2 systemic inflammatory response syndrome. #3 acute influenza A. #4 hypoxia. - Secondary Discharge Diagnosis Chronic Problems (Last Reviewed 11/03/19 @ 11:09 by ADAM Pantoja) Hyperlipidemia (Chronic) Essential hypertension (Chronic) Carotid artery disease (Chronic) Atherosclerotic heart disease of [place] coronary artery without angina pectoris (Chronic) Chronic airway obstruction, not elsewhere classified (Chronic) Sinusitis (Chronic) GERD (gastroesophageal reflux disease) (Chronic) Bilateral carotid bruits (Chronic) Body mass index 45.0-49.9, adult (Chronic) Asthma (Chronic) Type 2 diabetes mellitus (Chronic) Morbid obesity (Chronic) History of pulmonary embolism (Chronic) CHELSEY treated with BiPAP (Chronic) COPD (chronic obstructive pulmonary disease) (Chronic) Hospital Course and Treatment Imaging Results: Clinical Impression(s) from Imaging Studies Chest X-Ray 12/27/19 09:36 IMPRESSION: Mild cardiomegaly with CHF. Electronically Signed: Lon Fuchs, at 11:50 EDT , Service support , Chest X-Ray 12/28/19 07:19 IMPRESSION: Residual mild degree of CHF although there has been improvement. Electronically Signed: Lon Fuchs, at 15:09 EDT , Service support , Operations: None Procedures: None Summary of Care Provided: Seen and examined on the day of discharge and appeared to be stable to be discharged home. Her symptoms improved, no more wheezing, cough is getting better. Her vital signs are stable. Pulse ox is maintained on room air. The patient is a 59 year old F presented to the emergency room because of cough, headache, fever and shortness of breath as well as wheezing and she was found to have acute asthma exacerbation which apparently triggered by influenza A and also found to have ambulatory hypoxia in the emergency department. A chest x-ray showed no acute findings, revealed mild cardiomegaly. Her routine blood work was unremarkable. She tested positive for influenza A. She was treated with IV steroids, bronchodilators and Tamiflu. Her routine blood work was unremarkable. Urinalysis showed no evidence of infection. With above-mentioned treatment, patient symptoms improved and she did very well. Pulse ox maintained on room air and she did not require oxygen. Patient discharged home in a stable condition, discharged on Tamiflu to complete total of 5 days of treatment, discharged on prednisone taper, dose of Lasix increased to 40 mg p.o. daily, recommended from with PCP in 2 week. Patient Problems: Active and Suspected Problems (Last Reviewed 11/03/19 @ 11:09 by ADAM Pantoja) Influenza (Acute) Exacerbation of intermittent asthma (Acute) Hypoxia (Acute) - Physical Exam Vitals/I&O's: Vital Signs Temp Pulse Resp BP Pulse Ox 97.5 F L 82 18 148/77 H 95 12/29/19 08:35 12/29/19 11:36 12/29/19 11:36 12/29/19 08:35 12/29/19 08:35 Oxygen Delivery Method Room Air Weight: 246 lb 14.684 oz Body Mass Index (BMI) 42.3 Finger Stick Blood Glucose 135 Intake and Output for Last 24 Hours 12/27/19 12/28/19 12/29/19 23:59 23:59 23:59 Intake Total 800 / 800 1540 / 1540 Output Total 450 / 450 550 / 550 900 / 900 Balance 350 / 350 990 / 990 -900 / -900 General: Alert, Oriented x3, Cooperative HEENT: Atraumatic, PERRLA, EOMI, Normocephalic Oral: Moist Mucosa, No Gingival or Mucosal Lesions/ Ulcerations Neck: Supple, No JVD, Negative Carotid Bruits, Trachea Midline, Thyroid Normal Size and Texture Lungs: Clear to auscultation, Normal air movement, No rhonchi, No wheeze, No rales, Diminished Cardiovascular: Regular rate, Regular Rhythm, Normal S1, Normal S2, PMI Normal Abdomen: Bowel Sounds Present, Soft, Non Tender, Non-Distended, No Hepato-splenomegaly Extremities: No clubbing, No cyanosis, No edema Skin: No rashes, No breakdown Lymphatic: No Cervical, Supraclavicular, or Inguinal Adenopathy Neurological: Cranial nerves II-XII grossly intact, Neuro grossly intact Psych/Mental Status: Normal Affect, Appropriate Microbiology Past 72 Hours 12/27/19 09:51 Mucosa - Nasopharyngeal Influenza Types A,B Direct FA (LANA) - Final Influenzae A Laboratory Results 12/28/19 16:05: POC Glucose 205 H 12/28/19 22:23: POC Glucose 222 H 12/29/19 06:27: POC Glucose 118 H 12/29/19 11:05: POC Glucose 146 H Current Medications Acetaminophen (Tylenol) 650 mg PO Q6H PRN PRN PRN Reason: Pain Score 1-10/Temp > 100.7 F Last Admin: 12/27/19 16:11 Dose: 650 mg Documented by: Hydrocodone Bitart/Acetaminophen ([place] 5mg-325mg) 1 tablet PO Q8H PRN PRN PRN Reason: Pain Score 4-10/10 Albuterol Sulfate (Ventolin Aerosols) 2.5 mg INHALATION Q2H PRN PRN PRN Reason: Shortness of Breath/Wheezing Albuterol/Ipratropium (Duoneb) 3 ml INHALATION Q4HWA.RT [facility] Last Admin: 12/29/19 11:04 Dose: 3 ml Documented by: Aspirin (Ecotrin) 81 mg PO QHS [facility] Last Admin: 12/28/19 22:13 Dose: 81 mg Documented by: Atorvastatin Calcium (Lipitor) 20 mg PO QHS [facility] Last Admin: 12/28/19 22:12 Dose: 20 mg Documented by: Azelastine HCl (Astelin) 1 spray NASAL BID [facility] Last Admin: 12/29/19 08:27 Dose: 1 spray Documented by: Cyclobenzaprine HCl (Flexeril) 10 mg PO BID PRN PRN Reason: muscle spasms Last Admin: 12/27/19 17:40 Dose: 10 mg Documented by: Diltiazem HCl (Cardizem Cd) 120 mg PO BID [facility] Last Admin: 12/29/19 08:27 Dose: 120 mg Documented by: Docusate Sodium (Colace) 100 mg PO BID [facility] Last Admin: 12/29/19 08:26 Dose: 100 mg Documented by: Empagliflozin (Jardiance) 25 mg PO DAILY [facility] Last Admin: 12/29/19 08:27 Dose: 25 mg Documented by: [facility] Admin: 12/29/19 08:26 Dose: 72.5 mg Documented by: Fluoxetine HCl (Prozac) 40 mg PO DAILY [facility] Last Admin: 12/29/19 08:25 Dose: 40 mg Documented by: Furosemide (Lasix) 20 mg PO DAILY [facility] Last Admin: 12/29/19 08:25 Dose: 20 mg Documented by: Glucagon () 1 mg IM .X1 PRN PRN Reason: Hypoglycemia Guaifenesin (Robitussin Dm) 10 ml PO Q6H PRN PRN PRN Reason: COUGH/CONGESTION Hydralazine HCl (Apresoline) 25 mg PO DAILY [facility] Last Admin: 12/29/19 08:29 Dose: 25 mg Documented by: Dextrose (Dextrose 10%-Water) 250 mls @ 999 mls/hr IV .Q16M PRN; Protocol PRN Reason: HYPOGLYCEMIA Sodium Chloride () 250 mls @ 15 mls/hr IV .[id number] PRN PRN Reason: Saline Flush Insulin Glargine (Lantus (Bkc)) 50 units SC BID [facility] Last Admin: 12/29/19 08:27 Dose: 50 units Documented by: Insulin Human Lispro (Humalog Kwikpen (Bkc)) 0 unit SC ACHS [facility]; Protocol Last Admin: 12/29/19 11:06 Dose: Not Given Documented by: Lisinopril (Zestril) 20 mg PO DAILY [facility] Last Admin: 12/29/19 08:25 Dose: 20 mg Documented by: Loratadine (Claritin) 5 mg PO DAILY [facility] Last Admin: 12/29/19 08:26 Dose: 5 mg Documented by: Montelukast Sodium (Singulair) 10 mg PO DAILY [facility] Last Admin: 12/29/19 08:25 Dose: 10 mg Documented by: Ondansetron HCl (Zofran) 4 mg IV Q8H PRN PRN PRN Reason: NAUSEA/VOMITING Oseltamivir Phosphate (Tamiflu) 75 mg PO BID [facility] Stop: 12/31/19 22:01 Last Admin: 12/29/19 08:25 Dose: 75 mg Documented by: Pantoprazole Sodium (Protonix) 40 mg PO DAILY [facility] Last Admin: 12/29/19 08:25 Dose: 40 mg Documented by: Potassium Chloride (K-Dur) 10 meq PO BID [facility] Last Admin: 12/29/19 08:25 Dose: 10 meq Documented by: Prednisone () 40 mg PO DAILY@0800 [facility] Last Admin: 12/29/19 08:26 Dose: 40 mg Documented by: Pregabalin (Lyrica) 100 mg PO BID [facility] Last Admin: 12/29/19 08:27 Dose: 100 mg Documented by: Promethazine HCl (Phenergan Tablet) 25 mg PO Q6H PRN PRN PRN Reason: NAUSEA Rizatriptan Benzoate (Maxalt) 5 mg PO DAILY PRN PRN Reason: MIGRAINE SYMPTOMS Senna/Docusate Sodium (Senokot-S, Nia-Colace) 2 tablet PO BID PRN PRN PRN Reason: Constipation Sodium Chloride () 10 - 40 ml IV UD PRN PRN Reason: SALINE FLUSH Last Admin: 12/28/19 06:42 Dose: 10 ml Documented by: Tizanidine HCl (Zanaflex) 4 mg PO QHS PRN PRN Reason: .MUSCLE SPASMS Warfarin Sodium (Coumadin (Pbkc)) 8 mg PO DAILY@1700 [facility] Last Admin: 12/28/19 16:09 Dose: 8 mg Documented by: Zolpidem Tartrate (Ambien (Generic)) 5 mg PO QHS PRN PRN PRN Reason: INSOMNIA Discharge Activity: Return to Normal Activity Weight Bearing Status: Weight bearing as tolerated Call your doctor if you observe: Fever of 101 or Higher, Shortness of breath, Dizziness, Fainting spells, Chest pain, Increased palpitations (irregular heartbeat), Uncontrolled pain Home Medications: Medications to take at Discharge Clobetasol Propionate/Emoll [Clobetasol Emollient 0.05% Crm] 15 gm TP BID PRN PRN 01/26/14 Fluoxetine [Prozac] 40 mg PO DAILY 01/26/14 Tiotropium [place] [Spiriva 18 MCG] 1 puff INHALATION DAILY 01/26/14 Epi Pen (for allergic rxn) 0.3 mg IM X1 PRN 08/08/15 Aspirin [Adult Low Dose Aspirin EC] 81 mg PO QHS 01/06/16 Docusate Sodium [Colace] 100 mg PO BID 01/06/16 Levocetirizine Dihydrochloride [Xyzal] 5 mg PO DAILY 01/06/16 Multivit-Min/Iron/Folic/Lutein [Centrum Silver Women Tablet] 1 ea PO DAILY 01/06/16 Omeprazole [Prilosec] 40 mg PO DAILY 01/06/16 Potassium Chloride [K-Dur] 10 meq PO BID 01/06/16 Warfarin [Coumadin] 8 mg PO DAILY@1700 02/01/16 Albuterol Inhaler [Ventolin Hfa] 2 puff INHALATION Q4H PRN PRN 05/27/16 Azelastine HCl [Astelin] 1 spray NASAL BID 05/27/16 Ca/D3/Mag/Zinc/Roly/Bello/Mgbor [Caltrate 600+D3+Min Chew Tab] 1 ea PO BID 05/27/16 Albuterol Aerosols [Ventolin Aerosols] 2.5 mg INHALATION Q2H PRN PRN #1 box 11/15/17 Ipratropium/Albuterol Sulfate [Duoneb] 3 ml INHALATION Q4H.RT #1 box 11/15/17 pregabalin 100 mg capsule 100 mg PO BID 05/04/18 montelukast 10 mg tablet 10 mg PO DAILY #30 tab 11/05/18 Fenofibrate [Tricor] 72.5 mg PO DAILY 04/26/19 cyclobenzaprine 10 mg tablet 10 mg PO BID PRN tab 08/09/19 diltiazem HCl 120 mg capsule,extended release 12 hr 120 mg PO BID cap 08/09/19 ergocalciferol (vitamin D2) 1,250 mcg (50,000 unit) capsule 50,000 unit PO QWEEK 08/09/19 guaifenesin 600 mg tablet, extended release 12 hr 600 mg PO BID 08/09/19 moexipril 15 mg tablet 15 mg PO DAILY 08/09/19 rizatriptan 5 mg tablet 5 mg PO ONCE PRN 08/09/19 tizanidine 4 mg tablet 4 mg PO QHS PRN 08/09/19 trazodone 50 mg tablet 25 mg PO DAILY PRN PRN 08/09/19 Ondansetron [Zofran Odt] 4 mg PO Q8H PRN PRN #10 tab 11/03/19 Beclomethasone Diprop Inhaler [Qvar 80 Mcg Inhaler] 1 puff INHALATION BID 11/22/19 Budesonide/Formoterol Fumarate [Symbicort 160-4.5 Mcg Inhaler] 2 puff IH BID 11/22/19 Chromium Picolinate 1,000 mcg PO DAILY 11/22/19 Coconut Oil 100 gm MC DAILY 11/22/19 Cyanocobalamin [Vitamin B12] 1,000 mcg PO DAILY@0800 11/22/19 Dapagliflozin Propanediol [Farxiga] 10 mg PO DAILY 11/22/19 Fluticasone 110 Mcg [Flovent 110 Mcg] 2 puff INHALATION BID 11/22/19 Hydrocodone/Acetaminophen [Hydrocodon-Acetaminophen 5-325] 1 ea PO Q8H PRN PRN 11/22/19 Insulin Degludec [Tresiba] 50 unit SQ BID 11/22/19 L.acidoph,Paracasei, B.lactis [Probiotic] 1 ea PO DAILY 11/22/19 Pitavastatin Calcium [Livalo] 4 mg PO DAILY 11/22/19 Semaglutide [Ozempic] 1 mg SQ QWEEK 11/22/19 hydrALAZINE [Apresoline] 25 mg PO DAILY 11/22/19 proMETHazine tablet [Phenergan tablet] 25 mg PO Q6H PRN PRN #10 tab 11/22/19 Furosemide [Lasix] 40 mg PO DAILY #0 12/29/19 Oseltamivir Phosphate [Tamiflu] 75 mg PO BID #5 cap 12/29/19 Prednisone 40 mg PO DAILY #30 tab 12/29/19 Following Prescrptions Were Given to Patient: Prednisone 40 mg PO DAILY #30 tab Transmission Status: Received by [facility] Oseltamivir Phosphate [Tamiflu] 75 mg PO BID #5 cap Transmission Status: Received by [facility] Primary Care Physician: Ophelia Soria DO [Primary Care Provider] - Please follow up with your Primary Care Physician in: 2 WEEKS. Please Follow Up With: Ophelia Soria DO When: 2 weeks Patient Instructions: Adult Self-Care for Colds and Flu, Influenza Disposition: Home Minutes spent on discharge:: 28 Patient Condition:: Stable Medical Necessity - Tobacco Use Smoking Status: Never smoker Meaningful Use Info Meaningful Use Diagnoses (Choose all that apply): None applicable Inpatient E&M: 56621 Disch Hosp
--- NOTE | 2019-12-30 14:41 | CASEMGMT ---
JOSS FIERRO Discharge Follow-up Phone Call: CARRIE: Kelvin Strata: 3 Call Date: 12/30/2019 Discharge Date: 12/29/2019 Time of Call: 1440 Duration: 2 min Admitting Diagnosis: Acute Asthma exacerbation, Influenza A, hypoxia JOSS FIERRO completed follow-up phone call after recent hospitalization. Patient states that she has had some increased wheezing but has been doing her breathing treatments and it has helped. JOSS FIERRO instructed patient to call PCP with any issues. Patient was setup with [facility] and nurse has called and will be out today. Patient states she has follow-up appt with PCP on 01/12/20. Patient was able to fill prescriptions without any issues. Patient states she has no questions regarding discharge instructions. Patient denies further needs or concerns at this time.
== END 2019-12-29 12:44 | disposition home or self-care (01) | DRG 202 ==
LOC: ED 12:06 → MS3 12:39
PROVIDERS: Admitting Provider Hospitalist; Emergency Provider Emergency Medicine; PCP Internal Medicine; Visit Provider Hospitalist
DX: J45.21 Mild intermittent asthma with (acute) exacerbation (principal); Z68.42 Body mass index [BMI] 45.0-49.9, adult; J11.1 Influenza due to unidentified influenza virus with other respiratory manifestations; J44.9 Chronic obstructive pulmonary disease, unspecified; R09.02 Hypoxemia; J32.9 Chronic sinusitis, unspecified; E78.5 Hyperlipidemia, unspecified; I10 Essential (primary) hypertension; I25.10 Atherosclerotic heart disease of native coronary artery without angina pectoris; I65.23 Occlusion and stenosis of bilateral carotid arteries; K21.9 Gastro-esophageal reflux disease without esophagitis; E11.9 Type 2 diabetes mellitus without complications; F32.9 Major depressive disorder, single episode, unspecified; E66.01 Morbid (severe) obesity due to excess calories; Z86.711 Personal history of pulmonary embolism; G47.33 Obstructive sleep apnea (adult) (pediatric); Z86.718 Personal history of other venous thrombosis and embolism; Z79.01 Long term (current) use of anticoagulants; Z79.4 Long term (current) use of insulin; Z79.51 Long term (current) use of inhaled steroids; Z79.82 Long term (current) use of aspirin; Z79.899 Other long term (current) drug therapy
CPT/HCPCS: 36415; 71046; 80048; 81001; 82962; 85025; 85610; 87804; 93005; 94002; 94003; 94640; 94667; 94668; 97162; 99251; 99284; A4216; G0463

== ENCOUNTER 2020-03-20 10:40 | Emergency (ER) | payer MEDICARE, MEDICAID, SELFPAY ==
[2020-01-20 10:33] VITALS: BMI 42.3
[2020-03-20 10:42] VITALS: BP 165/94; PULSE 89; RESP 20; TEMP 36.8; O2SAT 95; BMI 43.6
--- NOTE | 2020-03-20 10:58 | RAD_ITS ---
STUDY: X-RAY - LUMBAR SPINE REASON FOR EXAM: Female, 59 years old. Low back pain, right leg pain, no injury TECHNIQUE: 3 view(s) of the lumbar spine were obtained. COMPARISON: None FINDINGS: Normal lumbar lordosis. There is no substantial scoliosis. There is a normal alignment of the vertebrae. There is multilevel endplate spondylosis of the lumbar vertebrae. There is multi-level degenerative disc disease with multi-level disc space narrowing. Facet joint osteoarthritis. There is atherosclerotic calcification of the abdominal aorta without a demonstrated aneurysm. RAD/Lumbar Spine 2 or 3 Views IMPRESSION: Degenerative changes of the spine, as detailed above. Electronically Signed: Lon Fuchs, at 11:33 EDT , Service support ,
--- NOTE | 2020-03-20 11:06 | ED.VIS.GEN ---
History of Present Illness Chief Complaint: Lower Extremity Injury Narrative: Patient presents with right buttock and right hip pain she was walking her dog last night and got tangled in the leash, it made her twist and developed pain right away. She normally has chronic back pain, she takes Holmes for this as well as Flexeril these did not improve her pain. She is due to have a pain injection in 3 days from her pain management doctor. She had no fall she had no head injury, she has no bowel or bladder incontinence. No urinary retention symptoms. The pain radiates to her lateral thigh region. Past Medical History - Allergies and Home Meds Allergies/Adverse Reactions: Allergies clindamycin Allergy (Verified 03/20/20 10:42) Rash erythromycin base [Erythromycin Base] Allergy (Verified 03/20/20 10:42) Rash omalizumab [From Xolair] Allergy (Verified 03/20/20 10:42) Chest tightness Penicillins Allergy (Verified 03/20/20 10:42) Rash sulfamethoxazole [From Bactrim] Allergy (Verified 03/20/20 10:42) Chest tightness trimethoprim [From Bactrim] Allergy (Verified 03/20/20 10:42) Chest tightness Sulfa (Sulfonamide Antibiotics) Adverse Reaction (Unknown, Verified 03/20/20 10:42) Unknown shortness of breath Primary Care Physician: Ophelia Soria DO [Primary Care Provider] - Past Medical History: - - Multiple medical problems these were reviewed in the chart and with her. Most significant for diabetes, chronic back pain. Surgical History: appendectomy, herniorrhaphy, - - Cervical disc surgery, rotator cuff surgery, . Smoking Status: Never smoker - Family History Maternal Family History: Family History (Last Reviewed 01/19/20 @ 14:52 by Mindi Salgado) Father Heart disease Diabetes CAD (coronary artery disease) Mother CAD (coronary artery disease) Brother CAD (coronary artery disease) Family History: Reports: Diabetes Paternal Family History: Family History (Last Reviewed 01/19/20 @ 14:52 by Mindi Salgado) Father Heart disease Diabetes CAD (coronary artery disease) Mother CAD (coronary artery disease) Brother CAD (coronary artery disease) Family History: Reports: Heart Disease Review of Systems All systems negative except as indicated General: Denies: Fever Cardiovascular: Denies: Chest pain Respiratory: Denies: Dyspnea Genitourinary: Denies: Dysuria Musculoskeletal: Reports: - - Back pain and right hip pain Skin: Denies: Rash, Abscess Neurological: Denies: Weakness, Parasthesia, Numbness Hematologic: Reports: Easy bruising, - - She is on Coumadin but is holding it for procedure in 3 days. Physical Exam Vital Signs/Narrative: Vital Signs Temp Pulse Resp BP Pulse Ox 03/20/20 10:42 98.3 F 89 20 H 165/94 H 95 General: Obese, - - She is laying comfortable on the cot she does not appear in significant distress ENT: Moist mucous membranes Cardiovascular: Regular rate Respiratory: No distress, CTA bilaterally Abdomen: Soft, Nontender Back: - - There is some tenderness over the lumbar and paraspinal regions of her back mostly on the right side. No CVA tenderness Extremities: No edema, - - There is tenderness over the SI joint and the buttock there is tenderness over the hip on palpation but no significant tenderness with logroll. Negative straight leg test. Skin: Normal color, No rash Neurological: Normal Strength, Normal Sensation, - - 1+ bilateral patellar reflexes. 1+ bilateral Achilles reflexes. Normal plantar flexion and dorsiflexion of both feet and great toes. Diagnostic/Tx/Re-eval - Medical Decision Making X-rays are unremarkable I believe she can be safely discharged home. Does have some DJD she can follow-up with orthopedics for this. She has Holmes at home. ED Disposition - Plan for ED Patient: Disposition: Home or Assisted Living Diagnosis: Hip pain Instructions: ED EXTREMITY CONTUSION Lower Referrals: Ophelia Soria DO [Primary Care Provider] - 3-5 Days
--- NOTE | 2020-03-20 11:15 | RAD_ITS ---
STUDY: X-RAY - PELVIS AND RIGHT HIP REASON FOR EXAM: Female, 59 years old. Patient complains of right hip pain, no injury TECHNIQUE: views of the pelvis and hip. COMPARISON: None. FINDINGS: There is a non-specific bowel gas pattern. Normal visualized soft tissue structures. Normal bilateral iliac wings, sacroiliac joints and visualized sacrum. Normal bilateral superior and inferior pubic rami. Normal pubic symphysis. Normal bilateral ischial tuberosities. Normal visualized femoral head. There is osteoarthritic spur formation of the acetabular rim. There is moderate articular joint space narrowing of the hip. RAD/HIP, UNI W/ Pelvis 2-3 Views IMPRESSION: Moderate osteoarthritis of the right hip joint. Electronically Signed: Lon Fuchs, at 11:33 EDT , Service support ,
[2020-03-20] MEDS: HYDROmorphone 1 MG/ML Syringe IM (11:23)
[2020-03-20 12:13] VITALS: BP 148/89; PULSE 81; RESP 18; O2SAT 99
== END 2020-03-20 12:14 | disposition home or self-care (01) ==
PROVIDERS: Emergency Provider Emergency Medicine; PCP Internal Medicine
DX: M25.551 Pain in right hip (principal); X50.1XXA Overexertion from prolonged static or awkward postures, initial encounter; Y93.K1 Activity, walking an animal; Y92.9 Unspecified place or not applicable; E66.9 Obesity, unspecified; M54.9 Dorsalgia, unspecified; G89.29 Other chronic pain; M16.11 Unilateral primary osteoarthritis, right hip; E11.9 Type 2 diabetes mellitus without complications; Z79.4 Long term (current) use of insulin; Z79.82 Long term (current) use of aspirin; Z79.899 Other long term (current) drug therapy
CPT/HCPCS: 72100; 73502; 96372; 99282

== ENCOUNTER 2020-03-21 12:23 | Outpatient (RCR) | payer MEDICARE, MEDICAID, SELFPAY ==
[2020-03-20 10:42] VITALS: BMI 43.6
[2020-03-21 13:08] LABS: International Normalized Ratio 1.1; Prothrombin Time (Protime)PT. 13.3 SECONDS (11.7-14.9)
== END 2020-03-21 18:00 | disposition home or self-care (01) ==
LOC: LAB 12:23
PROVIDERS: Family Provider Internal Medicine; PCP Internal Medicine; Referring Provider Internal Medicine; Visit Provider Internal Medicine
DX: Z79.01 Long term (current) use of anticoagulants (principal)
CPT/HCPCS: 36415; 85610

== ENCOUNTER → 2020-03-29 14:02 | Outpatient (CLI) | payer MEDICARE, MEDICAID, SELFPAY ==
[2020-03-20 10:42] VITALS: BMI 43.6
--- NOTE | 2020-03-29 14:05 | MRI_ITS ---
STUDY: MRI LUMBAR SPINE WITHOUT CONTRAST REASON FOR EXAM: Female, 59 years old. low back pain, radiculopathy, right leg pain, tingling TECHNIQUE: Standardized fat and water weighted pulse sequences were obtained in the sagittal and axial planes. COMPARISON: Radiographs 03/20/2020 FINDINGS: T12-L1: Bulging annulus and bilateral facet hypertrophy with mild left foraminal stenosis. Normal lumbar lordosis. There is no substantial scoliosis. Normal conus medullaris that terminates at the L1 level. L1-2: Bulging annulus and bilateral facet hypertrophy with mild central canal stenosis. L2-3: Bulging annulus and bilateral facet hypertrophy without compressive sequelae. L3-4: Bulging annulus and bilateral facet hypertrophy with mild central canal and left foraminal stenoses. L4-5: Bulging annulus and bilateral facet hypertrophy. Caudally migrating right subarticular disc extrusion with severe right lateral recess stenosis and mass effect on the transiting right L5 nerve root. Moderate right and mild left foraminal stenoses. L5-S1: Central disc protrusion and right facet hypertrophy with mild central canal and right foraminal stenoses. Normal visualized sacral ala. Normal visualized paraspinous soft tissue structures. 2 cm left renal cyst. MRI/Spine Lumbar (Routine) IMPRESSION: Multilevel degenerative disease as described. Right subarticular disc extrusion at the L4-5 level, with severe right lateral recess stenosis and mass effect on the transiting right L5 nerve root. Electronically Signed: Alirio Bello MD at 15:33 EDT Tel , Service support ,
== END ==
PROVIDERS: PCP Internal Medicine; Referring Provider Internal Medicine; Visit Provider Internal Medicine
DX: M54.16 Radiculopathy, lumbar region (principal)
CPT/HCPCS: 72148

== ENCOUNTER → 2020-06-07 17:42 | Outpatient (CLI) | payer MEDICARE, MEDICAID, SELFPAY ==
[2020-04-24 08:05] VITALS: BMI 41.1
== END ==
PROVIDERS: PCP Internal Medicine; Referring Provider Nurse Practitioner Acute Care; Visit Provider Nurse Practitioner Acute Care
DX: R52 Pain, unspecified (principal)
CPT/HCPCS: 87635; 94799; U0003

== ENCOUNTER 2020-06-13 13:41 | Outpatient (RCR) | payer MEDICARE, MEDICAID, SELFPAY ==
[2020-04-24 08:05] VITALS: BMI 41.1
[2020-06-13 14:49] LABS: Prothrombin Time (Protime)PT. 12.8 SECONDS (11.7-14.9)
== END 2020-06-13 18:00 | disposition home or self-care (01) ==
LOC: LAB 13:41
PROVIDERS: Family Provider Internal Medicine; PCP Internal Medicine; Referring Provider Internal Medicine; Visit Provider Internal Medicine
DX: Z79.01 Long term (current) use of anticoagulants (principal); J45.909 Unspecified asthma, uncomplicated
CPT/HCPCS: 36415; 85610; 87070; 87205

== ENCOUNTER → 2020-07-17 10:38 | Outpatient (CLI) | payer MEDICARE, MEDICAID, SELFPAY ==
[2020-04-24 08:05] VITALS: BMI 41.1
--- NOTE | 2020-07-18 10:35 | PFT ---
INTRODUCTION: The patient is a 59-year-old female that presents for pulmonary function studies secondary to a diagnosis of shortness of breath. Respiratory therapy reports good patient effort. Bronchodilators were used during testing. INTERPRETATION: Forced expiration spirometry demonstrates no evidence of a large airways obstructive ventilatory defect. There was no significant response to aerosolized bronchodilators. Spirograms are of good quality and plateau normally. Body plethysmography was performed and revealed an elevated TLC and RV, indicative of hyperinflation and air trapping. Diffusing capacity by single breath CO is within normal limits. When compared to previous pulmonary function studies from May 2015, there has been a 16% reduction in FEV1 and 12% reduction in DLCO. IMPRESSION: Normal spirometry and diffusing capacity with evidence of hyperinflation and air trapping, of unclear significance.
== END ==
PROVIDERS: PCP Internal Medicine; Referring Provider Nurse Practitioner Acute Care; Visit Provider Nurse Practitioner Acute Care
DX: J44.9 Chronic obstructive pulmonary disease, unspecified (principal)
CPT/HCPCS: 94060; 94726; 94729

== ENCOUNTER → 2020-07-19 | Outpatient (CLI) | payer MEDICARE, MEDICAID, SELFPAY ==
[2020-04-24 08:05] VITALS: BMI 41.1
[2020-07-19 10:45] VITALS: PULSE 95; PULSE 96; PULSE 97; PULSE 98; PULSE 99; O2SAT 92; O2SAT 95; O2SAT 96; O2SAT 98
--- NOTE | 2020-07-19 11:34 | CPS ---
pt is scheduled to have back surgery at end of month. lots of pain noted.
--- NOTE | 2020-07-20 10:15 | PCM.PSN.6M ---
PSN 6 Minute Walk Test - 6 Minute Walk Test 6 Minute Walk Test: 6 Minute Walk Test PSN:6-Minute Walk Test Start: 07/19/20 11:31 Freq: Status: Active Protocol: [id number] Document 07/19/20 10:45 EW (Rec: 07/19/20 11:35 EW [id number]) 6 Minute Walk Test Date Performed 07/19/20 Time Performed 10:45 Height 5 ft 4 in Weight: 258 lb Weight in Pounds 258.[address]: Luly Cheatham [employer] Assistive device used: Walker Pre-test Oxygen Delivery Method Room Air Pulse Ox (%) 96 Pulse Rate (60-100 beats/min) 99 Dyspnea Isidro Scale (0-10) 2 Exertion Isidro Scale (6-20) 8 1st minute Oxygen Delivery Method Room Air Pulse Ox (%) 95 Pulse Rate (60-100 beats/min) 95 2nd minute Oxygen Delivery Method Room Air Pulse Ox (%) 92 Pulse Rate (60-100 beats/min) 99 Number of Rests Taken 1 3rd minute Oxygen Delivery Method Room Air Pulse Ox (%) 95 Pulse Rate (60-100 beats/min) 96 Number of Rests Taken 1 4th minute Oxygen Delivery Method Room Air Pulse Ox (%) 95 Pulse Rate (60-100 beats/min) 96 5th minute Oxygen Delivery Method Room Air Pulse Ox (%) 95 Pulse Rate (60-100 beats/min) 97 6th minute Oxygen Delivery Method Room Air Pulse Ox (%) 95 Pulse Rate (60-100 beats/min) 96 Post-test Oxygen Delivery Method Room Air Pulse Ox (%) 98 Pulse Rate (60-100 beats/min) 98 Dyspnea Isidro Scale (0-10) 3 Exertion Isidro Scale (6-20) 16 Full Laps Walked 6 Partial Lap, Number of Tiles Walked 0 Total Distance Walked (ft) 354 07/19/20 11:34 Cardiopulmonary Services by Brittany Lipscomb pt is scheduled to have back surgery at end of month. lots of pain noted. Initialized on 07/19/20 11:34 - END OF NOTE - Interpretation Interpretation: The patient ambulated 354 feet over the course of 6 minutes beginning on room air with the use of a walker. Pretesting oxygen saturation was noted to be 96% on room air. With ambulation, the юлия oxygen saturation was 92%. There was evidence of both impaired walk distance and significant exertional oxygen desaturation. - Recommendations Recommendations: There is no indication for the use of supplemental oxygen at this time. However, close interval follow-up is recommended, given the degree of oxygen desaturation noted during the study.
== END | disposition home or self-care (01) ==
LOC: PSN 10:34
PROVIDERS: PCP Internal Medicine; Referring Provider Nurse Practitioner Acute Care; Visit Provider Nurse Practitioner Acute Care
DX: J44.9 Chronic obstructive pulmonary disease, unspecified (principal)
CPT/HCPCS: 94618

== ENCOUNTER 2020-07-23 20:28 | Emergency (ER) | payer MEDICARE, MEDICAID, SELFPAY ==
[2020-07-21 14:43] VITALS: BMI 45.2
[2020-07-23 20:30] VITALS: BP 121/67; PULSE 92; RESP 15; TEMP 36.8; O2SAT 97; BMI 49.0
--- NOTE | 2020-07-23 20:52 | CT_ITS ---
STUDY: CT CERVICAL SPINE WITHOUT CONTRAST REASON FOR EXAM: Female, 59 years old. FALL. METAL ARTIFACT REDUCTION USED FOR HARDWARE RADIATION DOSAGE (If Supplied By Facility): CTDIvol = ( 35.29 ) mGy, DLP = ( 777.46 ) mGycm TECHNIQUE: High resolution transaxial imaging was performed without contrast material. Sagittal and coronal images were reconstructed. Individualized dose optimization techniques were used for this CT. COMPARISON: None FINDINGS: The exam is limited by patient''s size and metal artifact. No gross acute abnormality is seen. Craniocervical junction and C1-C2 articulation are intact. There has been extensive corpectomy of vertebral bodies from C3 down to C7. There is a tubular metal prosthesis along this length, and there is straightening. Along the same length there has been bilateral facet joint fusion and facet joint screws and posterior rods. Prominent degenerative disc disease seen at C7-T1 and T1-T2. Axial images do not show definite spinal canal narrowing, but there appears to be multilevel neural foramina. CT/Spine Cervical without Contras IMPRESSION: No definite acute abnormalities. Extensive postsurgical and degenerative changes. Electronically Signed: Dedrick Rodriguez MD at 22:16 EDT , Service support ,
--- NOTE | 2020-07-23 20:52 | CT_ITS ---
STUDY: CT LUMBAR SPINE WITHOUT CONTRAST REASON FOR EXAM: Female, 59 years old. FALL RADIATION DOSAGE (If Supplied By Facility): CTDIvol = ( 58.35 ) mGy, DLP = ( 1724.81 ) mGycm TECHNIQUE: The patient was scanned in a multi detector CT scanner. High resolution transaxial imaging was performed. Sagittal and coronal images were reconstructed. Individualized dose optimization techniques were used for this CT. COMPARISON: MRI of the lumbar spine, 03/29/2020 FINDINGS: Normal lumbar lordosis. There is no substantial scoliosis. Normal alignment of the lumbar vertebral bodies. Normal vertebrae of the lumbar spine. There is no demonstrated compression deformity or fracture of the visualized lumbar vertebrae. There is multilevel spondylosis. Mild loss of disc height seen at L2-L3 and L4-L5. Moderate loss of disc height at L4-L5. Moderate disc bulges at L4-L5 and L5-S1 with moderate central canal stenosis. Moderate to severe bilateral neural foraminal narrowing at L3-L4, L4-L5, and L5-S1. Visualized paraspinal soft tissues and structures show heavily calcified aorta and IVC filter. CT/Spine Lumbar without Contrast IMPRESSION: No acute abnormalities. Chronic degenerative changes. Electronically Signed: Dedrick Rodriguez MD at 22:22 EDT , Service support ,
--- NOTE | 2020-07-23 20:52 | CT_ITS ---
STUDY: CT BRAIN WITHOUT CONTRAST REASON FOR EXAM: Female, 59 years old. FALL RADIATION DOSAGE (If Supplied By Facility): CTDIvol = ( 44.99 ) mGy, DLP = ( 863.60 ) mGycm TECHNIQUE: Transaxial CT imaging of the brain was performed without administration of intravenous contrast material. Individualized dose optimization techniques were used for this CT. COMPARISON: 04/26/2019 FINDINGS: Normal soft tissue structures. Normal calvarium. Normal size ventricles and extra-axial spaces for the patient''s age. Normal white matter tracts of the cerebral hemispheres. Normal basal ganglia and thalami. Normal brainstem. Normal cerebellum. There is no intracranial hemorrhage. There are no findings of an acute ischemic infarction. Normal visualized paranasal sinuses. CT/Brain/Head without Contrast IMPRESSION: Normal unenhanced CT scan of the brain. Electronically Signed: Dedrick Rodriguez MD at 22:18 EDT , Service support ,
--- NOTE | 2020-07-23 20:52 | CT_ITS ---
STUDY: CT THORACIC SPINE WITHOUT CONTRAST REASON FOR EXAM: Female, 59 years old. FALL RADIATION DOSAGE (If Supplied By Facility): CTDIvol = ( 44.87 ) mGy, DLP = ( 1673.63 ) mGycm TECHNIQUE: The patient was scanned in a multi detector CT scanner. High resolution imaging was performed. . Sagittal and coronal images were reconstructed. Individualized dose optimization techniques were used for this CT. COMPARISON: None. FINDINGS: Extensive surgical changes are seen of the cervical spine-C7 report. Normal kyphosis of the thoracic spine. There is no substantial scoliosis. There is multilevel endplate spondylosis of the thoracic spine. There is multilevel degenerative disc disease with loss of the disc space heights. The soft tissue structures are unremarkable. CT/Spine Thoracic without Contras IMPRESSION: Extensive degenerative changes and no acute abnormality. Electronically Signed: Dedrick Rodriguez MD at 22:34 EDT , Service support ,
--- NOTE | 2020-07-23 20:55 | ED.DCSUM_ITS ---
History of Present Illness Informant: Patient, Family Occurred: Today - TIRSO Fall down steps #: 1 Usually ambulates: Without assistance Location: mid and low back Quality of Pain: Aching Current Severity: Severe Maximum Severity: Severe Worsened by: movement Relieved by: nothing Associated Symptoms: Parasthesias, Weakness - RLE and RUE, Loss of function - RLE, Inability to ambulate. Negative for: Loss of consciousness, Amnesia Narrative: Patient states she has a history of L5-S1 disc herniation with sciatica down the right lower extremity, and occasionally as a result she feels like her right lower extremity gives out on her. This happened tonight as she was carrying something, she had just started up a flight of stairs and this occurred on about the first step and she fell backwards onto her back versus the concrete below. Since this injury, she cannot move or feel anything below the waist on her right lower extremity only. She also feels like she has some tingling in the right side of her lower face/cheek and her right hand, in her right hand feels weak. She denies injuring her head or neck or having any pain there. She denies any other injury. <Joon Najera - Last Filed: 07/24/20 01:05> <Ant Parr - Last Filed: 07/24/20 02:33> Chief Complaint: Back - Past Medical History (1) Asthma Status: Chronic (2) Atherosclerotic heart disease of [place] coronary artery without angina pectoris Status: Chronic (3) COPD (chronic obstructive pulmonary disease) Status: Chronic (4) Essential hypertension Status: Chronic (5) GERD (gastroesophageal reflux disease) Status: Chronic (6) History of pulmonary embolism Status: Chronic (7) Hyperlipidemia Status: Chronic (8) Morbid obesity Status: Chronic (9) Nonrheumatic aortic (valve) stenosis Status: Chronic (10) CHELSEY treated with BiPAP Status: Chronic (11) Type 2 diabetes mellitus Status: Chronic <Joon Najera - Last Filed: 07/24/20 01:05> Past Medical History Surgical History: appendectomy, herniorrhaphy, - - Cervical disc surgery, rotator cuff surgery, . Lives: With Family Smoking Status: Never smoker - Family History Maternal Family History: Family History (Last Reviewed 07/21/20 @ 14:49 by Nai Phan) Father Heart disease Diabetes CAD (coronary artery disease) Mother CAD (coronary artery disease) Brother CAD (coronary artery disease) Family History: Reports: Diabetes Paternal Family History: Family History (Last Reviewed 07/21/20 @ 14:49 by Nai Phan) Father Heart disease Diabetes CAD (coronary artery disease) Mother CAD (coronary artery disease) Brother CAD (coronary artery disease) Family History: Reports: Heart Disease <Joon Najera - Last Filed: 07/24/20 01:05> - Family History Maternal Family History: Family History (Last Reviewed 07/21/20 @ 14:49 by Nai Phan) Father Heart disease Diabetes CAD (coronary artery disease) Mother CAD (coronary artery disease) Brother CAD (coronary artery disease) Paternal Family History: Family History (Last Reviewed 07/21/20 @ 14:49 by Nai Phan) Father Heart disease Diabetes CAD (coronary artery disease) Mother CAD (coronary artery disease) Brother CAD (coronary artery disease) <Ant Parr - Last Filed: 07/24/20 02:33> - Allergies and Home Meds Allergies/Adverse Reactions: Allergies clindamycin Allergy (Verified 07/23/20 20:36) Rash erythromycin base [Erythromycin Base] Allergy (Verified 07/23/20 20:36) Rash omalizumab [From Xolair] Allergy (Verified 07/23/20 20:36) Chest tightness Penicillins Allergy (Verified 07/23/20 20:36) Rash sulfamethoxazole [From Bactrim] Allergy (Verified 07/23/20 20:36) Chest tightness trimethoprim [From Bactrim] Allergy (Verified 07/23/20 20:36) Chest tightness Sulfa (Sulfonamide Antibiotics) Adverse Reaction (Unknown, Verified 07/23/20 20:36) Unknown shortness of breath Primary Care Physician: Ophelia Soria DO [Primary Care Provider] - Review of Systems General: Denies: Chills, Fever, Sweats Eyes: Denies: Visual changes - bilaterally, Diplopia ENT: Denies: Rhinorrhea, Sore throat Cardiovascular: Denies: Chest pain, Palpitations Respiratory: Denies: Dyspnea, Cough, Dyspnea on exertion Gastrointestinal: Denies: Abdominal pain, Nausea, Vomiting, Diarrhea, Melena, Hematochezia Genitourinary: Denies: Dysuria, Hematuria, Frequency Musculoskeletal: Reports: Back pain. Denies: Neck pain, Extremity Pain Skin: Denies: Rash, Wounds Neurological: Reports: Weakness, Parasthesia, Numbness. Denies: Headache <Joon Najera - Last Filed: 07/24/20 01:05> Physical Exam Vital Signs/Narrative: Vital Signs Temp Pulse Resp BP Pulse Ox 07/23/20 20:30 98.3 F 92 15 121/67 H 97 Inital Vital Signs reviewed: Yes General: Well nourished, Well developed, Obese - morbidly, - - keenly alert, NAD Head: Normocephalic, Atraumatic Eyes: Perrl, EOMI ENT: TM's clear, No hemotympanum or drainage, No trauma Neck: Nontender, - - Patient's morbid obesity prevents being able to place a c- collar; inline C-spine stabilization was performed manually by a tech during the exam, we placed house beside her and advised her not to move her head afterwards. Negative for: Spinal Tenderness Cardiovascular: Regular rate, Regular rhythm, No murmurs Respiratory: No distress, CTA bilaterally, Chest nontender Abdomen: Soft, Nontender, Nondistended, Normal bowel sounds, - - Exam limited by morbid abdominal obesity Rectal: Nontender, - Back: Spinal Tenderness - From mid thoracic spine all the way down to the sacrum. No step-off or obvious signs of trauma, exam significantly limited by obesity Extremeties: No deformities, full range of motion throughout all joints of both upper extremities and the left lower extremity, the right lower she is tender throughout the right hip and there is no motor function of the right lower extremity Skin: Normal color, No rash Neurological: Alert, Oriented x3, Cranial nerves II-XII grossly intact, Weakness - Not able to move distal right lower extremity at all, can barley fire quadriceps. Depressed reflexes asymmetrically in the right lower extremity only, normal on the left. No sensation right lower extremity to pinprick at the knee or distal, but has partial sensation intact in the right thigh. Also weak radio intelligence operator strength right upper extremity compared with left, not limited by pain. Toes are downgoing on left, and no movement on the right (negative Babinski)., - - GCS 15 Psychological: Normal affect, Normal Mood <Joon Najera - Last Filed: 07/24/20 01:05> Vital Signs/Narrative: Vital Signs Pulse Resp BP Pulse Ox 07/24/20 01:19 98 15 142/86 H 96 07/23/20 23:20 154/89 H <Ant Parr - Last Filed: 07/24/20 02:33> Diagnostic/Tx/Re-eval Impressions Brain CT 07/23/20 20:52 IMPRESSION: Normal unenhanced CT scan of the brain. Electronically Signed: Dedrick Rodriguez MD at 22:18 EDT , Service support , Cervical Spine CT 07/23/20 20:52 IMPRESSION: No definite acute abnormalities. Extensive postsurgical and degenerative changes. Electronically Signed: Dedrick Rodriguez MD at 22:16 EDT , Service support , Lumbar Spine CT 07/23/20 20:52 IMPRESSION: No acute abnormalities. Chronic degenerative changes. Electronically Signed: Dedrick Rodriguez MD at 22:22 EDT , Service support , Thoracic Spine CT 07/23/20 20:52 IMPRESSION: Extensive degenerative changes and no acute abnormality. Electronically Signed: Dedrick Rodriguez MD at 22:34 EDT , Service support , Chest X-Ray 07/23/20 20:56 IMPRESSION: No definite acute or significant abnormality seen. Electronically Signed: Dedrick Rodriguez MD at 22:31 EDT , Service support , Hip/Pelvis X-Ray 07/23/20 20:56 IMPRESSION: No acute fracture or dislocation. Mild age-appropriate degenerative changes. Electronically Signed: Dedrick Rodriguez MD at 22:30 EDT , Service support , 07/23/20 20:52 Brain/Head without Contrast [CT] Stat Spine Cervical without Contras [CT] Stat Spine Lumbar without Contrast [CT] Stat Spine Thoracic without Contras [CT] Stat 07/23/20 20:56 CXR [Chest 1 View (Portable)] [RAD] Stat HIP, UNI W/ Pelvis 2-3 Views [RAD] Stat Laboratory Results 07/23/20 07/23/20 21:00 21:00 WBC 8.9 RBC 4.65 Hgb 14.0 Hct 43.8 MCV 94.2 MCH 30.1 MCHC 32.0 RDW Std Deviation 48.8 H RDW Coeff of Carmencita 14.2 Plt Count 270 MPV 10.6 Immature Gran % (Auto) 0.900 Neut % (Auto) 63.8 Lymph % (Auto) 24.2 Clarke % (Auto) 8.0 Eos % (Auto) 2.2 Baso % (Auto) 0.9 Absolute Neuts (auto) 5.7 Absolute Lymphs (auto) 2.16 Nucleated RBC % 0 Sodium 143 Potassium 3.7 Chloride 109 H Carbon Dioxide 26.0 Anion Gap 8 BUN 13 Creatinine 0.63 Estim Creat Clear Calc 82.00 Est GFR (MDRD) Af Amer 125 Est GFR (MDRD) Non-Af 103 BUN/Creatinine Ratio 20.8 H Glucose 150 H Calcium 8.7 - Medical Decision Making Screening x-rays of the chest and right hip/pelvis were obtained, and are negative. Given her neurologic exam and trauma, CT of the head and all of the spine was obtained. There are no acute abnormalities. It is noted that the patient has chronic findings in the lumbosacral spine including moderate disc bulges at L4-L5 and L5-S1 with moderate central canal stenosis, and moderate to severe bilateral neural foraminal narrowing at L3-L4, L4-L5, and L5-S1. These findings, however, do not explain the patient's neurologic exam. I discussed with Dr. Marcos who was on for spine, and agrees that the patient should be transferred to a trauma center and will probably need MR imaging of her spine. She is not anticoagulated. My concern is that even if she has negative MRIs for anything acute that she will not be appropriate to admit to this facility since we are not a trauma center. In discussing with the patient, she prefers [facility] because that is where her spine surgeon is, Dr. Smith James. Also in the differential diagnosis given her right upper extremity and facial symptoms is stroke. The patient does not meet criteria to receive IV TPA if this is the case since she had this injury. However, I discussed with the ED physician at [facility] Dr. Patel, and he is requesting that we perform a STAT MRI brain in order to determine if stroke is causing this right hemiparesis. If not, they will be happy to accept the patient and perform MRI of the spine as indicated. MRI brain only is ordered and checked out to the night ED physician, with the logic being that if acute stroke is causing her right sided neurologic findings (which are unusual - lower motor neuron in the RLE but RUE and tingling in right face without aphasia/speech symptoms, and without head/neck injury/symptoms), we have the capacity to care for the pt here. Of note, she is not an IV tPA candidate given relatively serious trauma tonight, although no fracture is found. NIH Stroke Scale/Score (NIHSS) from [employer] on 07/24/2020 All calculations should be rechecked by clinician prior to use RESULT SUMMARY: 7 points NIH Stroke Scale INPUTS: 1A: Level of consciousness ?> 0 = Alert; keenly responsive 1B: Ask month and age ?> 0 = Both questions right 1C: 'Blink eyes' & 'squeeze hands' ?> 0 = Performs both tasks 2: Horizontal extraocular movements ?> 0 = Normal 3: Visual gonzalez ?> 0 = No visual loss 4: Facial palsy ?> 0 = Normal symmetry 5A: Left arm motor drift ?> 0 = No drift for 10 seconds 5B: Right arm motor drift ?> 1 = Drift, but doesn't hit bed 6A: Left leg motor drift ?> 0 = No drift for 5 seconds 6B: Right leg motor drift ?> 4 = No movement 7: Limb Ataxia ?> 0 = No ataxia 8: Sensation ?> 2 = Complete loss: cannot sense being touched at all 9: Language/aphasia ?> 0 = Normal; no aphasia 10: Dysarthria ?> 0 = Normal 11: Extinction/inattention ?> 0 = No abnormality <Joon Najera - Last Filed: 07/24/20 01:05> - Medical Decision Making This patient was checked out to me with an MRI of her brain pending. Clinical Impression(s) from Imaging Studies Brain MRI 07/24/20 00:11 IMPRESSION: No acute intracranial abnormality. Chronic involutional and white matter changes. Partially visualized cystic lesion along the peripheral aspect of the right parotid gland. Correlation with clinical exam and consideration of nonemergent follow-up ultrasound for further characterization recommended. at 0220 Reported and signed by: Karen Richard MD Electronically Signed: Karen Richard MD at 2:20 EDT Tel , Service support , Treatment plan: Patient had been discussed with a spine surgeon at [facility]. She will be transferred there for further evaluation and treatment. Disposition: Transferred in stable condition. <Ant Parr - Last Filed: 07/24/20 02:33> ED Disposition <Joon Najera - Last Filed: 07/24/20 01:05> <Ant Parr - Last Filed: 07/24/20 02:33> - Plan for ED Patient: Diagnosis: Fall from steps, Traumatic injury of back, Weakness of right lower extremity, Weakness of right upper extremity, Numbness of right lower extremity Referrals: Ophelia Soria DO [Primary Care Provider] -
--- NOTE | 2020-07-23 20:56 | RAD_ITS ---
STUDY: X-RAY CHEST REASON FOR EXAM: Female, 59 years old. Fall today, pain. TECHNIQUE: Single AP portable view of the chest. COMPARISON: 12/28/2019. FINDINGS: The lungs are clear and expanded. There is no demonstrated pleural abnormality. Normal size heart. Normal mediastinum and yulisa. Normal visualized pulmonary arteries. Normal visualized aortic arch and descending thoracic aorta. Normal visualized thoracic spine. Extensive cervical spine surgery. Normal visualized ribs, clavicles, and shoulders. There is no demonstrated abnormality of the visualized soft tissue structures of the upper abdomen. RAD/Chest 1 View (Portable) IMPRESSION: No definite acute or significant abnormality seen. Electronically Signed: Dedrick Rodriguez MD at 22:31 EDT , Service support ,
--- NOTE | 2020-07-23 20:56 | RAD_ITS ---
STUDY: X-RAY - PELVIS AND RIGHT HIP REASON FOR EXAM: Female, 59 years old. Fell today, pain in right hip. TECHNIQUE: 3 views of the pelvis and hip. COMPARISON: 03/20/2020. FINDINGS: There is a non-specific bowel gas pattern. Normal visualized soft tissue structures. Normal bilateral iliac wings, sacroiliac joints and visualized sacrum. Normal bilateral superior and inferior pubic rami. Normal pubic symphysis. Normal bilateral ischial tuberosities. There are mild osteoarthritic changes of the femoral head with marginal osteophyte formation. Normal acetabulum. Normal hip joint. RAD/HIP, UNI W/ Pelvis 2-3 Views IMPRESSION: No acute fracture or dislocation. Mild age-appropriate degenerative changes. Electronically Signed: Dedrick Rodriguez MD at 22:30 EDT , Service support ,
[2020-07-23] MEDS: Morphine 4 MG/ML Syringe IV ×2 (21:06→22:15)
[2020-07-23] MEDS: Ondansetron 4 MG/2 ML Vial IV (21:06)
[2020-07-23] MEDS: 0.9% Normal Saline 1,000 ML 150 ML IV (21:10)
[2020-07-23 21:18] LABS: Absolute Lymphocyte Count 2.16 X10^3/uL (0.83-4.51); Absolute Neutrophil Count 5.7 X10^3/uL (2.0-7.7); Basophil# 0.08 X10^3/uL; Basophil% 0.9 % (0-1); Eosinophils% 2.2 % (0-5); Hematocrit 43.8 % (37-47); Lymphocyte # 2.16 X10^3/ul (4.0); Lymphocyte % 24.2 % (19-41); Mean Corpuscular Hgb 30.1 pg (27.0-32.0); Mean Corpuscular Volume 94.2 fL (81-99); Mean Platelet Vol. 10.6 fl (6.2-12.0); Monocyte# 0.71 X10^3/uL; NRBC Flagged by Analyzer 0 % (0-5); Neutrophil % 63.8 % (47-70); Platelet Count 270 K/mm3 (150-450); RBC Distribution Width CV 14.2 % (11.6-14.6); RBC Distribution Width SD 48.8 fl (35.1-43.9); Red Blood Count 4.65 M/mm3 (4.2-5.4); White Blood Count 8.9 K/mm3 (4.4-11.0)
[2020-07-23 21:28] LABS: Anion Gap 8 (5-15); BUN 13 mg/dL (7-18); BUN/Creat Ratio 20.8 RATIO (10-20); Calcium,Total 8.7 mg/dL (8.5-10.1); Chloride 109 mmol/L (98-107); Creatinine, Serum 0.63 mg/dL (0.55-1.02); EST Glomerular Filtration Rate 103 mL/min (>60); Est Glom Filt Rate - Afr Amer 125 mL/min (>60); Glucose 150 mg/dL (74-106); Potassium 3.7 mmol/L (3.5-5.1); Sodium Level 143 mmol/L (136-145)
[2020-07-23 22:17] VITALS: BP 145/70; PULSE 99; RESP 18; O2SAT 95
[2020-07-23 23:20] VITALS: BP 154/89
--- NOTE | 2020-07-24 00:11 | MRI_ITS ---
HISTORY: right hemiparesis, fall Right-sided numbness TECHNIQUE: Multiplanar and multisequence MR images of the brain were obtained without contrast. IV Contrast dosage and agent: None. COMPARISON: CT brain 07/23/2020 FINDINGS: Number of images including paperwork: [id number] PARANASAL SINUSES AND MASTOID AIR CELLS: Clear. CALVARIUM: Intact. INTRACRANIAL HEMORRHAGE: No evidence of acute intracranial hemorrhage. BRAIN PARENCHYMA: No acute infarct. Mild to moderate amount of increased FLAIR signal intensity in the periventricular white matter. Generalized atrophy. Normal sella turcica, pituitary gland, infundibular stalk, and optic chiasm. The internal auditory canals are patent. No mass effect or midline shift. CSF SPACES: Appropriate for age. No hydrocephalus. Patent basal cisterns. VASCULAR SYSTEM: Normal flow voids in the major intracranial circulation. ORBITS: Both globes, extraocular muscles, optic nerves and retrobulbar fat appear unremarkable. SOFT TISSUES: Partially visualized cystic structure along the superolateral aspect of the right parotid gland measuring 2.2 x 1.1 cm, previously 1.8 x [address] 04/26/2019. MRI/Brain without Contrast IMPRESSION: No acute intracranial abnormality. Chronic involutional and white matter changes. Partially visualized cystic lesion along the peripheral aspect of the right parotid gland. Correlation with clinical exam and consideration of nonemergent follow-up ultrasound for further characterization recommended. at 0220 Reported and signed by: Karen Richard MD Electronically Signed: Karen Richard MD at 2:20 EDT Tel , Service support ,
[2020-07-24] MEDS: Morphine 4 MG/ML Syringe IV ×2 (01:16→03:55)
[2020-07-24 01:19] VITALS: BP 142/86; PULSE 98; RESP 15; O2SAT 96
[2020-07-24 02:27] VITALS: BP 142/86; PULSE 98; RESP 15; TEMP 36.7; O2SAT 96
[2020-07-24 04:01] VITALS: BP 151/83; PULSE 95; RESP 15; O2SAT 93
== END 2020-07-24 04:16 | disposition short-term general hospital (02) ==
LOC: ED 21:07
PROVIDERS: Emergency Provider Emergency Medicine; PCP Internal Medicine
DX: S39.92XA Unspecified injury of lower back, initial encounter (principal); W10.9XXA Fall (on) (from) unspecified stairs and steps, initial encounter; Y93.89 Activity, other specified; Y92.9 Unspecified place or not applicable; Y99.9 Unspecified external cause status; M62.81 Muscle weakness (generalized); R20.0 Anesthesia of skin; I25.10 Atherosclerotic heart disease of native coronary artery without angina pectoris; I10 Essential (primary) hypertension; J44.9 Chronic obstructive pulmonary disease, unspecified; E11.9 Type 2 diabetes mellitus without complications; E78.5 Hyperlipidemia, unspecified; K21.9 Gastro-esophageal reflux disease without esophagitis; G47.33 Obstructive sleep apnea (adult) (pediatric); E66.01 Morbid (severe) obesity due to excess calories; Z79.4 Long term (current) use of insulin; Z79.82 Long term (current) use of aspirin; Z79.899 Other long term (current) drug therapy
CPT/HCPCS: 70450; 70551; 71045; 72125; 72128; 72131; 73502; 80048; 85025; 96374; 96375; 96376; 99283; J7030; A4216; J2405

== ENCOUNTER 2020-10-04 08:45 | Outpatient (RCR) | payer MEDICARE, MEDICAID, SELFPAY ==
[2020-04-24 08:05] VITALS: BMI 41.1
[2020-10-04 09:14] LABS: Absolute Lymphocyte Count 2.49 X10^3/uL (0.83-4.51); Absolute Neutrophil Count 3.6 X10^3/uL (2.0-7.7); Basophil# 0.09 X10^3/uL; Basophil% 1.3 % (0-1); Eosinophil# 0.17 X10^3/uL; Eosinophils% 2.4 % (0-5); Hemoglobin 14.7 g/dL (12.0-15.0); Lymphocyte # 2.49 X10^3/ul (4.0); Lymphocyte % 35.1 % (19-41); Mean Corp Hgb Conc 31.3 g/dL (32-36); Mean Corpuscular Hgb 27.8 pg (27.0-32.0); Mean Corpuscular Volume 88.8 fL (81-99); Mean Platelet Vol. 10.8 fl (6.2-12.0); Monocyte% 9.9 % (0-10); NRBC Flagged by Analyzer 0 % (0-5); Neutrophil # 3.61 X10^3/uL (2.7-7.7); Neutrophil % 50.9 % (47-70); Platelet Count 289 K/mm3 (150-450); RBC Distribution Width CV 13.8 % (11.6-14.6); RBC Distribution Width SD 45.2 fl (35.1-43.9); Red Blood Count 5.29 M/mm3 (4.2-5.4); White Blood Count 7.1 K/mm3 (4.4-11.0)
[2020-10-04 09:19] LABS: International Normalized Ratio 1.3; Prothrombin Time (Protime)PT. 15.6 SECONDS (11.7-14.9)
[2020-10-04 09:36] LABS: ALB/GLOB Ratio 0.9 RATIO (0.9-2.4); AST(SGOT) 32 U/L (15-37); Alanine Aminotransfer ALT/SGPT 42 U/L (13-56); Albumin, Serum 3.2 g/dL (3.2-5.0); Alkaline Phosphatase 87 U/L (45-117); Anion Gap 7 (5-15); BUN 10 mg/dL (7-18); BUN/Creat Ratio 22.3 RATIO (10-20); Calcium,Total 8.7 mg/dL (8.5-10.1); Chloride 107 mmol/L (98-107); Cholesterol 126 mg/dL (200); Creatinine, Serum 0.45 mg/dL (0.55-1.02); EST Glomerular Filtration Rate 151 mL/min (>60); Est Glom Filt Rate - Afr Amer 183 mL/min (>60); Globulin 3.4 g/dL (2.2-4.2); Glucose 119 mg/dL (74-106); High Density Lipoprotein 46 mg/dL; Potassium 3.6 mmol/L (3.5-5.1); Protein, Total 6.6 g/dL (6.4-8.2); Sodium Level 142 mmol/L (136-145); Triglycerides 111 mg/dL; Very Low Density Lipoprotein 22 mg/dL (5-40)
[2020-10-04 09:47] LABS: Microalbumin,Random Urine 10.3 mg/L (NO RANGE EST.); Microalbumin:Creatinine Ratio 15.3 mg/g CRE (<30 mg/g CRE)
[2020-10-04 10:20] LABS: Vitamin D,25 Hydroxy 59.7 ng/mL
[2020-10-04 10:24] LABS: Hemoglobin A1c 6.6 % (3.8-5.6)
== END 2020-10-04 18:00 | disposition home or self-care (01) ==
LOC: LAB 08:45
PROVIDERS: Family Provider Internal Medicine; PCP Internal Medicine; Referring Provider Internal Medicine; Visit Provider Internal Medicine
DX: E11.65 Type 2 diabetes mellitus with hyperglycemia (principal); Z79.01 Long term (current) use of anticoagulants; E55.9 Vitamin D deficiency, unspecified
CPT/HCPCS: 36415; 80053; 80061; 82043; 82306; 82570; 83036; 85025; 85610

== ENCOUNTER → 2020-11-14 14:18 | Outpatient (CLI) | payer MEDICARE, MEDICAID, SELFPAY ==
--- NOTE | 2020-11-14 14:20 | BI_ITS ---
MAMMOGRAPHY - BILATERAL SCREENING REASON FOR EXAM: Female, 60 years old. Routine annual screening examination. PERTINENT HISTORY: Non-contributory. TECHNIQUE: Digital bilateral breast doris (3D mammographic acquisition) in the CC and MLO projections. 2-D mediolateral oblique (MLO) and craniocaudad (CC) views of both breasts were obtained. CAD: Full Field Digital Mammography with Computer Added Detection was performed. COMPARISON: Comparison is made with prior study 05/16/2015 and 04/21/2012. FINDINGS: Breast Composition: The breasts are almost entirely fatty. There are no dominant masses or suspicious calcifications. Stable bilateral secretory calcifications. No other significant abnormalities are identified. There has been no significant change since the prior study. BI/SCRN MAMM (CAD)W/DORIS BILAT IMPRESSION: Stable bilateral screening mammogram. Yearly follow-up mammogram recommended. (A) ASSESSMENT CATEGORY: BIRADS Category 2: Benign. A letter regarding these results will be sent to the patient by the facility within 30 days. Approximately 10% of breast cancers are not detected by mammography. A normal mammogram should not delay biopsy of a clinically suspicious abnormality. [id number] Electronically Signed: Lon Fuchs MD at 15:48 EST , Service support ,
--- NOTE | 2020-11-14 14:25 | BD_ITS ---
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 COMPARISON: Comparison is made with prior examination dated 05/16/2015. FINDINGS: Lumbar Spine (L1-L4): g/cm2 (1.326) / T-score (1.0) / Z-score (2.3) Findings are suggestive of normal bone density with a low fracture risk. Left Femur Total: g/cm2 (0.874) / T-score (-1.1) / Z-score (-0.1) Left Femoral Neck: g/cm2 (0.781) / T-score (-1.8) / Z-score (-0.6) Right Femur Total: g/cm2 (0.820) / T-score (-1.5) / Z-score (-0.5) Right Femoral Neck: g/cm2 (0.791) / T-score (-1.8) / Z-score (-0.5) The T-Scores on the most recent prior examination were: Lumbar Spine (L1-L4): There has been worsening of bone density since the previous examination. Left Femur Total: which represents a worsening of 15.2%. Right Femur Total: which represents a worsening of 19.7%. BD/Dexa Bone Density Study IMPRESSION: The patient is considered osteopenic as outlined below according to World Donnie Organization (WHO) criteria with a moderate fracture risk. There has been worsening of bone density since the previous examination. Reference Information: The T-score is the number of standard deviations above or below the standard which is normal for young adults at their peak bone mineral density. The World Health Organization (WHO) interprets the T-scores as follows: Above -1 Normal bone density Between -1 and -2.5 Osteopenia Equal to / or below -2.5 Osteoporosis As a practical clinical guideline, osteopenia may be graded as follows: Mild -1 through -1.5 Moderate -1.6 through -2.0 Severe -2.1 through -2.4 The Z-score is the number of standard deviations above or below age-matched controls. A Z-score of less than -1.5 would be considered abnormal. References: 1. NIH Osteoporosis and Related Bone Diseases www osteo.org 2. International Society for Clinical Densitometry www iscd.org 3. National Osteoporosis Foundation www nof.org Electronically Signed: Lon Fuchs MD at 14:57 EST , Service support ,
== END ==
PROVIDERS: PCP Internal Medicine; Referring Provider Internal Medicine; Visit Provider Internal Medicine
DX: Z78.0 Asymptomatic menopausal state (principal); Z12.31 Encounter for screening mammogram for malignant neoplasm of breast; E11.65 Type 2 diabetes mellitus with hyperglycemia; E55.9 Vitamin D deficiency, unspecified; Z79.01 Long term (current) use of anticoagulants
CPT/HCPCS: 36415; 77063; 77067; 77080; 85610

== ENCOUNTER 2020-11-14 15:20 | Outpatient (RCR) | payer MEDICARE, MEDICAID, SELFPAY ==
[2020-11-14 16:14] LABS: Prothrombin Time (Protime)PT. 12.8 SECONDS (11.7-14.9)
== END 2020-11-14 18:00 | disposition home or self-care (01) ==
LOC: LAB 15:20
PROVIDERS: Family Provider Internal Medicine; PCP Internal Medicine; Referring Provider Internal Medicine; Visit Provider Internal Medicine
DX: E11.65 Type 2 diabetes mellitus with hyperglycemia (principal); Z79.01 Long term (current) use of anticoagulants; E55.9 Vitamin D deficiency, unspecified
CPT/HCPCS: 36415; 85610

== ENCOUNTER → 2020-12-19 12:51 | Outpatient (CLI) | payer MEDICARE, MEDICAID, SELFPAY ==
--- NOTE | 2020-12-19 12:58 | ECHOCS_ITS ---
Reason For Study: MURMUR Procedure This was a 2D Doppler, Color Flow transthoracic echocardiogram. The study was technically difficult. Due to body habitus. Contrast injection was performed. Left Ventricle Normal LV size. Sigmoid septum. Left ventricular systolic function is normal. The estimated ejection fraction is 65 %. Diastolic function is indeterminate. No regional wall motion abnormalities noted. Right Ventricle Normal RV size. Normal systolic function. Atria Normal left atrium. Normal right atrium. No doppler evidence for ASD. Mitral Valve There is moderate mitral annular calcification. Extension of the mitral annular calcification onto the mitral valve leaflets. Trivial mitral valve insufficiency. Tricuspid Valve Normal tricuspid valve. Trivial tricuspid valve insufficiency. Right ventricular systolic pressure estimated to be 22 mmHg. Aortic Valve The aortic valve is not well visualized. Mild diffuse aortic valve thickening. Moderate focal aortic valve calcification. Severe aortic stenosis. Pulmonic Valve The pulmonic valve is not well visualized. Great Vessels The aortic root is not well visualized. Pericardium/Pleural No pericardial effusion. Medication 22 gauge I.V. with prn adaptor inserted into right arm. Diluted definity 3.0ml given slow IV push to enhance endocardial definition. MMode/2D Measurements & Calculations LVIDd: 5.0 cm IVSd: 1.0 cm LVOT diam: 2.0 cm LVIDs: 3.2 cm LVPWd: 1.1 cm RVDd: 3.2 cm FS: 36.0 % LVOT area: 3.0 cm2 LA dimension: 4.2 cm LAV(MOD-bp): 60.1 ml LA A4 area: 18.8 cm2 LAV(MOD-bp) Indexed: 27.8 ml/m2 LAV(MOD-sp2): 58.3 ml LAV(MOD-sp4): 59.4 ml RA A4 area: 10.7 cm2 Time Measurements MV dec time: 0.18 sec Doppler Measurements & Calculations MV E max mark: 95.4 cm/sec Lat Peak E' Mark: 5.5 cm/sec Med Peak E' Mark: 4.6 cm/sec MV A max mark: 146.8 cm/sec E/E' lat: 17.4 E/E' med: 20.8 MV E/A: 0.65 Ao V2 max: 423.9 cm/sec LV V1 max: 97.2 cm/sec SV(LVOT): 60.0 ml Ao max P.9 mmHg LV V1 max P.8 mmHg Ao V2 mean: 291.8 cm/sec LV V1 mean P.0 mmHg Ao mean P.3 mmHg LV V1 mean: 66.3 cm/sec Ao V2 VTI: 81.9 cm LV V1 VTI: 20.1 cm FELICIANO(I,D): 0.73 cm2 FELICIANO(V,D): 0.69 cm2 PA V2 max: 85.9 cm/sec TR max mark: 220.4 cm/sec TR max P.4 mmHg Interpretation Summary The study was technically difficult. Contrast injection was performed. Left ventricular systolic function is normal. The estimated ejection fraction is 65 %. Sigmoid septum. There is moderate mitral annular calcification. Extension of the mitral annular calcification onto the mitral valve leaflets. Trivial mitral valve insufficiency. Trivial tricuspid valve insufficiency. Severe aortic stenosis. Right ventricular systolic pressure estimated to be 22 mmHg. Diastolic function is indeterminate. Ordering Physician: Jeronimo Izquierdo Referring Physician: Ophelia Soria Performed By: Marta Begum, BRANDON, RVT
== END ==
PROVIDERS: PCP Internal Medicine; Referring Provider Internal Medicine Cardiovascular Disease; Visit Provider Internal Medicine Cardiovascular Disease
DX: R01.1 Cardiac murmur, unspecified (principal)
CPT/HCPCS: 93306; Q9957; A4216; C8929

== ENCOUNTER → 2021-01-03 13:08 | Outpatient (CLI) | payer MEDICARE, MEDICAID, SELFPAY ==
[2020-12-21 14:22] VITALS: BMI 44.9
--- NOTE | 2021-01-03 13:13 | US_ITS ---
STUDY: SUPERFICIAL ULTRASOUND - LEFT WRIST. REASON FOR EXAM: Female, 60 years old. pain, cyst -- cyst left wrist TECHNIQUE: A superficial ultrasound was performed with real-time and static carrington-scale imaging. COMPARISON: None. FINDINGS: Ultrasound dedicated to the region of the left breast reveals no evidence of fluid collection or mass. No nodule or abscess. US/Ext Non Vasc Limited/Soft Tiss IMPRESSION: No distinct nodule or mass noted in the region of clinical concern. No abscess or cystic change. Electronically Signed: Julia Cancino MD at 0:55 EDT , Service support ,
--- NOTE | 2021-01-03 13:14 | MRI_ITS ---
STUDY: MRI LEFT ELBOW REASON FOR EXAM: Female, 60 years old. BURNING IN LEFT ELBOW AND FOREARM AFTER HITTING WRIST WITH BOX TECHNIQUE: Standardized fat and water weighted pulse sequences were obtained in all 3 orthogonal planes. COMPARISON: None. FINDINGS: Normal radio-capitellum articulation. Mild to moderate globular appearance to the anterior aspect of the radial collateral ligament, in addition to interstitial intermediate signal abnormality, but without a focal tear or retraction. There is a mild tendinosis of the common extensor tendon origin with a mild partial deep surface tear. A small elbow joint effusion is present. No bone marrow edema or occult fracture. Normal ulnotrochlear articulation. Normal ulnar collateral ligamentous complex. Normal common flexor tendon. The cubital tunnel is normal, with a normal ulnar nerve. Normal biceps tendon and distal insertion. Normal lacertus fibrosis. Normal brachialis musculotendinous insertion. Normal triceps tendon and teno-osseous insertion. Normal olecranon process. The visualized distal humerus, proximal radius, and ulna are normal. The visualized muscles of the distal arm and proximal forearm are normal. The soft tissue structures are unremarkable. MRI/Upper Ext Joint Only(Routine) IMPRESSION: 1. Mild to moderate globular appearance to the anterior aspect of the radial collateral ligament, in addition to interstitial intermediate signal abnormality, but without a focal tear or retraction. 2. Mild tendinosis of the common extensor tendon origin with a mild partial deep surface tear. Electronically Signed: Rodrigue Hood MD at 23:53 EDT , Service support ,
== END ==
PROVIDERS: PCP Internal Medicine; Referring Provider Orthopaedic Surgery; Visit Provider Orthopaedic Surgery
DX: S66.912A Strain of unspecified muscle, fascia and tendon at wrist and hand level, left hand, initial encounter (principal); W22.8XXA Striking against or struck by other objects, initial encounter; M71.332 Other bursal cyst, left wrist
CPT/HCPCS: 73221; 76882

== ENCOUNTER 2021-01-19 07:43 | Day surgery (SDC) | payer MEDICARE, MEDICAID, SELFPAY ==
[2020-12-21 14:22] VITALS: BMI 44.9
[2021-01-12 10:15] VITALS: BMI 46.0
[2021-01-12 12:36] LABS: Absolute Lymphocyte Count 2.06 X10^3/uL (0.83-4.51); Absolute Neutrophil Count 4.7 X10^3/uL (2.0-7.7); Basophil# 0.06 X10^3/uL; Basophil% 0.8 % (0-1); Eosinophil# 0.09 X10^3/uL; Eosinophils% 1.2 % (0-5); Hematocrit 47.3 % (37-47); Hemoglobin 14.9 g/dL (12.0-15.0); Lymphocyte # 2.06 X10^3/ul (4.0); Lymphocyte % 26.9 % (19-41); Mean Corp Hgb Conc 31.5 g/dL (32-36); Mean Corpuscular Hgb 28.6 pg (27.0-32.0); Mean Corpuscular Volume 90.8 fL (81-99); Mean Platelet Vol. 11.3 fl (6.2-12.0); Monocyte# 0.66 X10^3/uL; Monocyte% 8.6 % (0-10); NRBC Flagged by Analyzer 0 % (0-5); Neutrophil # 4.74 X10^3/uL (2.7-7.7); Neutrophil % 61.7 % (47-70); Platelet Count 285 K/mm3 (150-450); RBC Distribution Width CV 16.1 % (11.6-14.6); RBC Distribution Width SD 53.2 fl (35.1-43.9); Red Blood Count 5.21 M/mm3 (4.2-5.4); White Blood Count 7.7 K/mm3 (4.4-11.0)
[2021-01-12 12:55] LABS: Anion Gap 6 (5-15); BUN 13 mg/dL (7-18); BUN/Creat Ratio 23.4 RATIO (10-20); Calcium,Total 8.9 mg/dL (8.5-10.1); Chloride 106 mmol/L (98-107); Creatinine, Serum 0.56 mg/dL (0.55-1.02); EST Glomerular Filtration Rate 118 mL/min (>60); Est Glom Filt Rate - Afr Amer 143 mL/min (>60); Glucose 194 mg/dL (74-106); Potassium 3.6 mmol/L (3.5-5.1); Sodium Level 141 mmol/L (136-145)
[2021-01-12 12:58] LABS: International Normalized Ratio 2.4; Prothrombin Time (Protime)PT. 25.7 SECONDS (11.7-14.9)
[2021-01-12 12:59] LABS: Partial Thromboplast Time 50.3 Seconds (24.1-36.2)
[2021-01-18 14:03] VITALS: BMI 46.0
--- NOTE | 2021-01-18 19:21 | HP.PCM_ITS ---
Problem List (1) Severe aortic valve stenosis Status: Chronic History and Physical Date of Admission: 01/18/21 [facility] [address] [place] [address] OFFICE VISIT Date of Service: 01/12/21 MR#: [id number] Acct: [id number] Name: NATHALIE HERMAN Rep #: [id number] : [id number] Provider: ADAM Soriano Age/Sex: 60/F [place] [facility] [place] Status: Signed HPI HPI History of Present Illness Surgical H&P: Yes Details: NATHALIE HERMAN, is a 60 year old white female who presents to the office today for for outpatient cardiovascular follow-up of her history of underlying CAD, aortic valve stenosis, hyperlipidemia, hypertension, carotid artery d isease, superimposed upon multiple noncardiovascular medical issues. She had IVC filter placed in 2019. Patient underwent echocardiogram on 12/19/2020 that showed an ejection fraction of 65% and severe aortic valve stenosis. Peak aortic valve gradient was noted be 71.9 mmHg, mean aortic valve gradient was noted be 38.3 mmHg, and aortic valve area was noted to be 0.69 cm?. Because of such finding, patient will undergo a heart catheterization to assess coronary artery anatomy to further guide valvular surgery. She continues with SOB with activity, lightheadedness, dizziness, pre-syncope, and right shoulder pain. She continues with lower bilateral lower extremity edema that is improving with Lasix adjustment. She denies chest, arm, jaw, or neck discomfort. She denies symptoms of CHF, pal pitations, or syncopal episodes. She denies edema or claudication issues. She denies orthopnea, PND, fever, or chills. She uses BiPAP regularly. Intake Vital Signs 01/12/21 Height 5 ft 4 in 01/12/21 Weight: 268 lb 01/12/21 BMI 46.0 01/12/21 BP 153/82 H 01/12/21 Blood Pressure Location Lt brachial 01/12/21 Position Sitting 01/12/21 Respiration 18 01/12/21 Pulse 92 01/12/21 Pulse Source Monitor 01/12/21 Pulse Oximetry (%) 94 Intake Visit Reasons: update H & P Retail Supervisor Required: No Is patient in pain?: No Allergies clindamycin Allergy (Verified 01/12/21 10:11) Rash erythromycin base [Erythromycin Base] Allergy (Verified 01/12/21 10:11) Rash omalizumab [From Xolair] Allergy (Verified 01/12/21 10:11) Chest tightness Penicillins Allergy (Verified 01/12/21 10:11) Rash sulfamethoxazole [From Bactrim] Allergy (Verified 01/12/21 10:11) Chest tightness trimethoprim [From Bactrim] Allergy (Verified 01/12/21 10:11) Chest tightness Sulfa (Sulfonamide Antibiotics) Adverse Reaction (Unknown, Verified 01/12/21 10:11) Unknown [facility] Medical History (Updated 01/12/21 @ 12:05 by Wilder Soriano PROFESSOR OF POULTRY SCIENCE, PROFESSOR OF POULTRY SCIENCE-C) Nonrheumatic aortic (valve) stenosis (Chronic) Essential hypertension (Chronic) Carotid artery disease (Chronic) Atherosclerotic heart disease of [place] coronary artery without angina pectoris (Chronic) GERD (gastroesophageal reflux disease) (Chronic) Bilateral carotid bruits (Chronic) Body mass index 45.0-49.9, adult (Chronic) Asthma (Chronic) Type 2 diabetes mellitus (Chronic) Morbid obesity (Chronic) History of pulmonary embolism (Chronic) CHELSEY treated with BiPAP (Chronic) COPD (chronic obstructive pulmonary disease) (Chronic) Back pain with sciatica (Acute) Personal history of anaphylaxis (Chronic) Diastolic heart failure (Inactive) Surgical History (Updated 12/21/20 @ 14:50 by Claudine Deleon) H/O lumbosacral spine surgery (Acute) History of section (Resolved) History of hernia repair (Resolved) History of neck surgery (Resolved) History of rotator cuff surgery (Resolved) Hx of appendectomy (Resolved) Family History (Updated 12/21/20 @ 14:56 by Claudine Deleon) Father Heart disease Diabetes CAD (coronary artery disease) Mother CAD (coronary artery disease) CVA (cerebral vascular accident) Diabetes Brother CAD (coronary artery disease) CVA (cerebral vascular accident) Diabetes Unknown Cancer Grandmother CVA (cerebral vascular accident) Diabetes Grandfather CVA (cerebral vascular accident) Grandmother Myocardial infarction Brother Diabetes Sister Diabetes Social History (Updated 01/12/21 @ 12:10 by Wilder Soriano PROFESSOR OF POULTRY SCIENCE, PROFESSOR OF POULTRY SCIENCE-C) household members: spouse housing: house Smoking Status: Never smoker second hand exposure: No alcohol intake: current alcohol intake frequency: a few times a week substance use type: does not use caffeine: No what type of physical activity do you participate in: none do you feel safe at home: Yes ROS Const Const: Negative for fatigue, weakness, body ache, fever(s) or chills ENT ENT: Positive for dizziness Cardio Chest Pain: No Palpitations: No Edema: Bilateral (Improved) Muscle aches with walking: None Resp Respiratory: Positive for SOB with activity; negative for SOB at rest, SOB orthopnea\SOB lying down or paroxysmal nocturnal dyspnea GI GI: Negative nausea, vomiting blood/hematemesis, bright, red blood in stools or black,tarry stools : Negative for hematuria or frequent nighttime urination/ nocturia Musc Musc: Negative for muscle aches/ myalgia Skin Skin: Negative non-healing lesions or rash Neuro Neuro: Positive for dizziness, lightheadedness and near syncope; negative for syncope, orthostatic symptoms or weakness Endo Endo: Negative for fatigue Allergy Allergy/Immunology: Negative for rash Cardiology Exam Const Appearance: cooperative, healthy appearing, comfortable and no acute distress Nutritional Appearance: well nourished and obese Orientation: alert, awake and oriented x3 Head Head: normal to inspection Ears: hearing grossly normal bilaterally Nose: external nose normal Face and Sinus: face symmetric Mouth: oral mucosae normal Eyes General: appearance normal, both eyes and all related structures Eyelids: eyelids normal EOM: EOM intact bilaterally Neck Neck: normal visual inspection and no JVD Carotids: normal carotid upstroke Chest Chest inspection: normal inspection of the chest, symmetric chest movement and normal respiratory effort; negative cough Auscultation: Bilateral: Clear to Auscultation Cardio Palpation: normal PMI Rate: regular rate Rhythm: regular rhythm Heart sounds: S1 normal, S2 normal and murmur; negative rub or gallop Murmur: Grade 3/6, harsh, mid systolic, LLSB, RLSB, axilla, LVOT, sternal notch and radiates to carotids GI GI: normal to inspection and obese Neuro General: alert, awake, oriented x3 and CN's II-XI intact bilaterally Skin Skin: no rashes or lesions noted Extremities Pulses: Normal: Right Posterior Tibial Pulse, Left Posterior Tibial Pulse, Right Radial Pulse, Left Radial Pulse Lower Extremity Edema: None: Bilateral Psych Psychological: normal affect Assessment & Plan 1. Severe aortic valve stenosis I35.0 Plan Patient symptoms appear consistent with severe aortic valve stenosis. She will proceed with heart catheterization to assess coronary artery anatomy to further guide valvular surgery. Based on results of such test, further recommendation and referral will be made as indicated. She will continue current medical therapy and we will continue to monitor. Orders Orders: 12 Lead EKG performed by BMS Today Basic Metabolic Profile (BMP) Today Prothrombin Time w/INR Today CBC W/Diff, Automated Today 2. Atherosclerosis of [place] coronary artery of [place] heart without angina pectoris I25.10 Plan Her heart catheterization in May 2016 showed an ejection fraction of 65%, le ft main is angiographically normal, LAD with proximal mild luminal irregularities, LCx as angiographically normal, and RCA with proximal minimal luminal irregularities. Her EKG today in office shows a sinus rhythm with first-degree AV block with underlying right bundle branch block at a rate of 91 beats minute, NE interval 222, QTc 434, and QRS 150. She denies any chest, arm, jaw, or neck pain suggestive angina. Her shortness of breath at this time is thought to be related to her severe aortic valve stenosis. She will continue current medical therapy and we will continue to monitor. Orders Orders: 12 Lead EKG performed by BMS Today Basic Metabolic Profile (BMP) Today 3. Essential hypertension I10 Plan Her blood pressure is on the higher side today in office. In the setting severe aortic valve stenosis this is reasonable. Over time, we will need to continue adjust medications as indicated. Orders Orders: Basic Metabolic Profile (BMP) Today 4. Hyperlipidemia, unspecified hyperlipidemia type E78.5 Plan Lipid panel from 10/04/2020 showed Cholesterol: 126, HDL: 46, LDL: 58, and Triglycerides: 111. She will continue current cholesterol-lowering medication. Orders Orders: Basic Metabolic Profile (BMP) Today Plan Detail Other Orders Orders: Basic Metabolic Profile (BMP) Today Z01.810 Partial Thromboplast Time Today Z79.01 Additional Comments She will proceed with heart catheterization with Dr. Izquierdo. She will hold her Coumadin 5 days prior. She was reminded to be n.p.o. prior to procedure and to adjust her diabetic medications as required from. She return to office in 3 months to evaluate overall progress as well as evaluate further in respect to her valve. Thank you for allowing us to participate in the patients plan of care, if you have any questions please do not hesitate to call. This note was generated using a voice recognition system and there may be incorrect words, spelling or punctuation that were not noted when reviewing the office note prior to saving. Follow Up 3 Months (PROFESSOR [employer] P[employer]LTRY SCIENCE/PA) Coding Level of Care Code Off vis,est,level 3 Diagnoses Severe aortic valve stenosis I35.0 Atherosclerosis of [place] coronary artery of [place] heart without angina pectoris I25.10 ??[place] vs. transplanted heart: [place] heart Essential hypertension I10 Hyperlipidemia, unspecified hyperlipidemia type E78.5 ??Hyperlipidemia type: unspecified Coding Level of Care Code Off vis,est,level 3 Diagnoses Severe aortic valve stenosis I35.0 Atherosclerosis of [place] coronary artery of [place] heart without angina pectoris I25.10 ??[place] vs. transplanted heart: [place] heart Essential hypertension I10 Hyperlipidemia, unspecified hyperlipidemia type E78.5 ??Hyperlipidemia type: unspecified Supplemental Info Supplemental Information Echocardiogram from 12/19/2020: Interpretation Summary The study was technically difficult. Contrast injection was performed. Left ventricular systolic function is normal. The estimated ejection fraction is 65 %. Sigmoid septum. There is moderate mitral annular calcification. Extension of the mitral annular calcification onto the mitral valve leaflets. Trivial mitral valve insufficiency. Trivial tricuspid valve insufficiency. Severe aortic stenosis. Right ventricular systolic pressure estimated to be 22 mmHg. Diastolic function is indeterminate. Echocardiogram from 09/06/2019: Interpretation Summary The study was technically difficult. Contrast injection was performed. Left ventricular systolic function is normal. The estimated ejection fraction is 60 %. Sigmoid septum. There is moderate mitral annular calcification. Extension of the mitral annular calcification onto the mitral valve leaflets. Mild (1+) mitral valve insufficiency. Mild tricuspid valve insufficiency. Moderate aortic stenosis. Right ventricular systolic pressure estimated to be 29 mmHg. Transmitral doppler flow suggestive of impaired relaxation of left ventricle Comment: Based upon the 2D echocardiographic images obtained a bicuspid aortic valve could not necessarily be excluded. YOLANDA: 10/12/2019 Interpretation Summary Left ventricular systolic function is normal. The estimated ejection fraction is 60 %. Sigmoid septum. The left atrium is mildly enlarged. There is no sponatenous contrast in the left atrium. No thrombus is detected in the left atrial appendage. There is moderate mitral annular calcification. Extension of the mitral annular calcification onto the mitral valve leaflets. Mild (1+) mitral valve insufficiency. Trivial tricuspid valve insufficiency. Trisinus/trileaflet aortic valve. Moderate diffuse aortic valve thickening. Moderate diffuse aortic valve calcification. Trivial aortic valve insufficiency. Color flow Doppler potentially compatible with a left to right interatrial shunt compatible with a small PFO. Bubble contrast study negative for right to left interatrial shunt. Cardiac catheterization: 05/29/2016 Final impression: 1. Elevated left ventricular end-diastolic pressure compatible with decreased diastolic compliance 2. Left ventricle: A. Normal left ventricular size, wall motion, and systolic function B. Estimated LVEF is 65% 3. Left main coronary artery: A. Large dominant vessel B. Angiographically normal 4. Left anterior descending coronary artery: A. Proximal mild eccentric calcification B. Proximal minimal luminal irregularities 5. Left circumflex coronary artery: A. Angiographically normal 6. Right coronary artery: A. Large dominant vessel B. Proximal mild eccentric calcification C. Proximal minimal luminal irregularities Carotid duplex ultrasound from 05/23/2016: Interpretation Summary Mild (<50%) stenosis right extracranial internal carotid. Mild (<50%) stenosis left extracranial internal carotid. Flow within the vertebral arteries is antegrade bilaterally. Labs LDL Cholesterol 58 mg/dL (0-130) 10/04/20 HDL Cholesterol 46 mg/dL (40-) 10/04/20 Triglycerides 111 mg/dL (-199) 10/04/20 VLDL Cholesterol 22 mg/dL (5-40) 10/04/20 Diagnostics Electrocardiogram 01/12/21 Echocardiogram 12/19/20 Transesophageal Echocardiogram 10/12/19 Cardiac Catheterization 05/29/16 Abdomen Ultrasound 01/12/16 Chest X-Ray 07/23/20 Pulmonary Pulmonary Function Test 07/18/20 Pulmonary Exercise Test 07/20/20 01/12/21 1210 <Electronically signed by Wilder Gimenez PROFESSOR [employer] SCIENCE-C> Date _ Wilder Soriano NP PROFESSOR [employer] P[employer] SCIENCE-C I have re-examined the patient. There are no clinical changes since date of exam. Procedure Criteria Procedure Type: Elective COVID Risk Discussion: The surgeon/proceduralist and patient have discussed in detail the risk of exposure to and/or potential harm posed by the COVID-19 virus with having a surgery/procedure at this time versus the risk of delaying the lizette dionne/procedure. It is not possible to know either the risk of delaying the surgery or procedure or chance of getting an infection with perfect accuracy, but a joint decision was made between the patient and the surgeon/proceduralist to proceed at this time with the scheduled surgery/procedure as indicated on the consent form.
[2021-01-19 07:56] LABS: INR Fingerstick 1.1; Prothrombin Time Fingerstick 12.8 SEC (11.9-14.4)
--- NOTE | 2021-01-19 10:41 | CL.D_ITS ---
Patient Name: NATHALIE HERMAN Study Date: 01/19/2021 Performing: Jeronimo Izquierdo MD Ht: 64.17 inches 163 cm : 1960 Wt: 268.96 lbs 122 kg Age: 60 Gender: female BSA: 2.22 PROCEDURE(S) PERFORMED [id number] CLINICAL PROFILE AND INDICATIONS Indications: Valvular Disease, Pre-Operative Evaluation Heart Failure: None Stress/Imaging Stress/Image Study Performed: No Angina Classification Anginal Classification w/in 2 Weeks: Anginal Equivalent Dyspnea CAD Presentations: Other: dyspnea on exertion CONCLUSIONS [place] Multivessel CAD Aortic Valve Calcification- Moderate to Severe Mitral Valve Annular Calcification Moderate to Severe annular calcification RECOMMENDATIONS Risk factor modification Medical therapy Surgery consult for valvular disease DESCRIPTION OF PROCEDURE The patient arrived to the procedure lab. The risks and benefits of the procedure as well as a full d escription of our services here and current unavailability of surgical backup were fully explained to the patient and/or their significant other prior to the catheterization. The Timeout was completed, verifying the correct patient and procedure. The patient's procedural site was prepped and draped in the usual fashion. Local anesthetic was given subcutaneously to right radial region with Lidocaine 2% . Using a modified Seldinger technique, arterial access was obtained via the right radial artery, a 6 Fr sheath was inserted. Left Coronary Artery selective angiography was performed in multiple views u sing a 6 Fr. 4.0 Hodges catheter. Right Coronary Artery selective angiography was then performed in mu ltiple views using a 5 Fr. 3DRC (Issac) catheter.The arterial sheath was pulled and a TR Band was applied for hemostasis. 12cc of air CORONARY ANGIOGRAPHY DOMINANCE: Right Dominant LEFT HEART ASSESSMENT LEFT MAIN: Angiographically normal LEFT ANTERIOR DESCENDING ARTERY: PROX LAD: Mild calcification, Mild luminal irregularities CIRCUMFLEX ARTERY: MID CIRC: Mild luminal irregularities RAMUS: Angiographically normal RIGHT CORONARY ARTERY: Mild luminal irregularities PROX RCA: Mild calcification MID RCA: Mild calcification VALVE FINDINGS: Aortic Valve Calcification - moderate to severe Mitral Valve Annular Calcification Moderate to Severe COMPLICATIONS No Complications PROCEDURE MEDICATIONS Fentanyl 50 mcg IV Versed 1 mg IV Fentanyl 50 mcg IV Versed 1 mg IV Versed 1 mg IV Oxygen: 2 L/min via nasal cannula Heparin diluted in 23cc Heparinized saline. Patient given 10cc IA of this solution. 01/19/2021 09:37:0 2 Verapamil 2.5mg, Ntg 100mcgs, 2000 units of Heparin diluted in 23cc Heparinized saline. Patient give n 10cc IA of this solution. 01/19/2021 09:37:02 SUMMARY OF HEMODYNAMIC DATA Time AIR REST ECG 08:15:17 AO 125/89 (107) SA 09:44:43 ECG 10:05:42 Signed By Jeronimo Izquierdo MD On 01/19/2021 10:40:40 AM Jeronimo Izquierdo MD
== END 2021-01-19 12:41 | disposition home or self-care (01) ==
PROVIDERS: Nurse Practitioner Family; PCP Internal Medicine; Referring Provider Internal Medicine Cardiovascular Disease; Visit Provider Internal Medicine Cardiovascular Disease
DX: I35.8 Other nonrheumatic aortic valve disorders (principal); I34.8 Other nonrheumatic mitral valve disorders; I25.10 Atherosclerotic heart disease of native coronary artery without angina pectoris; I10 Essential (primary) hypertension; I65.23 Occlusion and stenosis of bilateral carotid arteries; E11.9 Type 2 diabetes mellitus without complications; E78.5 Hyperlipidemia, unspecified; J44.9 Chronic obstructive pulmonary disease, unspecified; J45.909 Unspecified asthma, uncomplicated; K21.9 Gastro-esophageal reflux disease without esophagitis; G47.33 Obstructive sleep apnea (adult) (pediatric); R60.0 Localized edema; E66.01 Morbid (severe) obesity due to excess calories; Z68.42 Body mass index [BMI] 45.0-49.9, adult; Z79.899 Other long term (current) drug therapy; Z79.01 Long term (current) use of anticoagulants
CPT/HCPCS: 36415; 36416; 80048; 85025; 85610; 85730; 93454; 99152; 99153; J7040; C1769; C1894; J2405; Q9967

== ENCOUNTER → 2021-02-05 | Outpatient (CLI) | payer MEDICARE, MEDICAID, SELFPAY ==
[2021-01-18 14:03] VITALS: BMI 46.0
== END | disposition home or self-care (01) ==
LOC: LABSPEC 15:37
PROVIDERS: PCP Internal Medicine; Referring Provider Otolaryngology; Visit Provider Otolaryngology
DX: J32.9 Chronic sinusitis, unspecified (principal)
CPT/HCPCS: 87070; 87077; 87205

== ENCOUNTER 2021-02-28 14:41 | Outpatient (RCR) | payer MEDICARE, MEDICAID, SELFPAY ==
[2021-01-18 14:03] VITALS: BMI 46.0
[2021-02-28 15:44] LABS: Prothrombin Time (Protime)PT. 12.5 SECONDS (11.7-14.9)
== END 2021-02-28 18:00 | disposition home or self-care (01) ==
LOC: LAB 14:41
PROVIDERS: Family Provider Internal Medicine; PCP Internal Medicine; Referring Provider Internal Medicine; Visit Provider Internal Medicine
DX: Z79.01 Long term (current) use of anticoagulants (principal)
CPT/HCPCS: 36415; 85610

== ENCOUNTER 2021-03-18 21:04 | Emergency (ER) | payer MEDICARE, MEDICAID, SELFPAY ==
[2021-03-18 21:05] VITALS: BP 119/72; PULSE 91; RESP 16; TEMP 35.8; O2SAT 96; BMI 44.2
--- NOTE | 2021-03-18 21:21 | CT_ITS ---
STUDY: CT ABDOMEN AND PELVIS WITHOUT CONTRAST REASON FOR EXAM: Female, 60 years old. trauma RADIATION DOSAGE (If Supplied By Facility): CTDIvol = ( 31.63 ) mGy, DLP = ( 1778.31 ) mGycm TECHNIQUE: Transaxial images were obtained from the dome of the diaphragm to the symphysis pubis without oral contrast, and without intravenous contrast. Sagittal and coronal images were reconstructed. Individualized dose optimization techniques were used for this CT. COMPARISON: None. FINDINGS: Exam limited by patient size. Significant portions of the abdominal wall are excluded from the [id number] especially on the right. There is fatty liver. There is hepatomegaly. The gallbladder is contracted. Normal spleen. Normal pancreas. Normal bilateral adrenal glands. There are no acute abnormalities of the kidneys. There is a 4 mm nonobstructing right lower pole stone. There are probable small left renal cysts. These need further evaluation with ultrasound. Evaluation of the GI tract is limited by absence of oral contrast. Cannot exclude stomach wall thickening. No dilated loops of bowel or evidence for obstruction. Cannot exclude segmental thickening of the caicedo of the small or large bowel. Cannot exclude enteritis or colitis. Moderate diffuse fecal retention. Appendix is not seen. There is diffuse atherosclerotic calcification of the abdominal aorta, without a demonstrated aneurysm. There is an IVC filter in place. Normal retroperitoneum. Normal urinary bladder. There is absence of the uterus consistent with a prior hysterectomy. Much of the abdominal wall excluded from [id number] as described above because of patient size. Increased density of the subcutaneous tissues of the lower anterior abdominal wall, most consistent with panniculitis.. There are diffuse degenerative changes of the visualized lumbar spine. CT/Abdomen/Pelvis without Cont IMPRESSION: Limited by patient''s size. No gross acute abnormality within the abdomen or pelvis. Nonobstructing right renal stone. Probable left renal cysts but these need to be confirmed with ultrasound. Electronically Signed: Dedrick Rodriguez MD at 22:21 EDT , Service support ,
[2021-03-18] MEDS: oxyCODONE 5 MG Tablet PO ×2 (21:30→22:41)
--- NOTE | 2021-03-18 22:35 | EDS_ITS ---
HPI HPI - Fall History of Present Illness Chief Complaint: Fall Informant: patient Occured/Mechanism Occurred: Today Mechanism/Context: Yes same level fall Pain/Injury Pain Location: back Quality of Pain: Aching and Throbbing Current Severity: Severe Maximum Severity: Severe Worsened by: Movement Narrative Narrative: Patient presents after fall. Patient states she was outside watering her plants when she lost her balance and fell backwards landing on her buttocks. She was partially on the sidewalk and partially in the grass. She has increased pain to her lower back, left greater than right. She does have some pain radiating to the proximal thighs. No problems with bowel or bladder control. Patient did have back surgery in July of last year. She is also on Coumadin. Her INR was checked less than a week ago and was slightly low. [facility] Medical History Asthma Atherosclerotic heart disease of [place] coronary artery without angina pectoris Back pain with sciatica Bilateral carotid bruits Body mass index 45.0-49.9, adult Carotid artery disease COPD (chronic obstructive pulmonary disease) Diastolic heart failure Essential hypertension GERD (gastroesophageal reflux disease) History of DVT (deep vein thrombosis) History of pulmonary embolism Morbid obesity Nonrheumatic aortic (valve) stenosis CHELSEY treated with BiPAP Personal history of anaphylaxis Type 2 diabetes mellitus Home Medications fluoxetine 40 mg PO DAILY 01/26/14 [History Last Taken 11/12/17 40 mg] aspirin 81 mg PO QHS 01/06/16 [History Last Taken 01/19/21] docusate sodium 100 mg PO BID 01/06/16 [History Last Taken 11/12/17 100 mg] ccuregue-raq-fikm-FA-lutein 1 ea PO DAILY 01/06/16 [History Last Taken 11/12/17 1 tablet] omeprazole 40 mg PO DAILY 01/06/16 [History Last Taken 11/12/17 40 mg] potassium chloride 10 meq PO BID 01/06/16 [History Last Taken 11/12/17 10 meq] Cf-X2-ofw-rlkm-xtl-dskv-boron 1 ea PO BID 05/27/16 [History Last Taken 11/12/17 1 tablet] fenofibrate nanocrystallized 72.5 mg PO DAILY 04/26/19 [History Last Taken Unknown] ergocalciferol (vitamin D2) 1,250 mcg (50,000 unit) capsule 50,000 unit PO QWEEK 08/09/19 [History Last Taken Unknown] moexipril 15 mg tablet 15 mg PO DAILY 08/09/19 [History Last Taken Unknown] trazodone 50 mg tablet 25 mg PO DAILY PRN PRN 08/09/19 [History Last Taken Unknown] dapagliflozin 10 mg PO DAILY 11/22/19 [History Last Taken Unknown] insulin degludec 50 unit SQ BID 11/22/19 [History Last Taken Unknown] semaglutide 1 mg SQ QWEEK 11/22/19 [History Last Taken Unknown] furosemide 40 mg PO DAILY #0 12/29/19 [Rx Last Taken 11/12/17 20 mg] beclomethasone dipropionate 80 mcg/actuation HFA breath activated aerosol 1 inh INHALATION BID #10.6 g 01/18/20 [Rx Last Taken Unknown] epinephrine 0.3 mg/0.3 mL injection, auto-injector 0.3 mg IM X1 PRN #1 ea 01/18/20 [Rx Last Taken Unknown] albuterol sulfate 2.5 mg INHALATION Q2H PRN PRN #180 ml 04/24/20 [Rx Last Taken Unknown] albuterol sulfate 90 mcg/actuation aerosol inhaler 2 inh INHALATION Q4H PRN PRN #18 g 04/24/20 [Rx Last Taken Unknown] ipratropium 0.5 mg-albuterol 3 mg (2.5 mg base)/3 mL nebulization soln 3 ml INHALATION Q4H.RT #180 ml 04/24/20 [Rx Last Taken Unknown] tiotropium bromide 18 mcg capsule with inhalation device 18 mcg INHALATION DAILY #1 inh 04/24/20 [Rx Last Taken Unknown] pregabalin 100 mg capsule 150 mg PO TID cap 07/21/20 [History Last Taken Unknown] budesonide-formoterol HFA 160 mcg-4.5 mcg/actuation aerosol inhaler 2 puff INHALATION BID #6 g 12/07/20 [Rx Last Taken Unknown] montelukast 10 mg tablet 10 mg PO DAILY #30 tab 12/07/20 [Rx Last Taken Unknown] alendronate 70 mg tablet 70 mg PO QWEEK tab 12/21/20 [History Last Taken Unknown] desoximetasone 0.05 % topical cream 1 applic TOPICAL PRN PRN g 12/21/20 [History Last Taken Unknown] diltiazem HCl 240 mg capsule,extended release 24 hr 240 mg PO DAILY cap 12/21/20 [History Last Taken 01/19/21] doxycycline hyclate 100 mg tablet 100 mg PO DIRECTED tab 12/21/20 [History Last Taken Unknown] ergocalciferol (vitamin D2) 1,250 mcg (50,000 unit) capsule 1,250 mcg PO QWEEK 12/21/20 [History Last Taken Unknown] meclizine 25 mg tablet 25 mg PO DAILY 12/21/20 [History Last Taken Unknown] methylprednisolone 4 mg tablets in a dose pack 1 tab PO DAILY 12/21/20 [History Last Taken Unknown] multivitamin-ferrous fumarate-folic acid 18 mg-400 mcg tablet 1 tab PO DAILY 12/21/20 [History Last Taken Unknown] nystatin 100,000 unit/gram topical powder 1 applic TOPICAL BID 12/21/20 [History Last Taken Unknown] ondansetron 4 mg disintegrating tablet 4 mg PO Q8H 12/21/20 [History Last Taken Unknown] pitavastatin calcium 4 mg tablet 4 mg PO DAILY tab 12/21/20 [History Last Taken Unknown] ranitidine HCl 150 mg capsule 150 mg PO QHS cap 12/21/20 [History Last Taken Unknown] rizatriptan 5 mg tablet 5 mg PO ONCE 12/21/20 [History Last Taken Unknown] enoxaparin 120 mg/0.8 mL subcutaneous syringe 120 mg SC Q12H #8 ml 01/15/21 [Rx Last Taken 01/18/21 21:00] warfarin 4 mg tablet 4 mg PO .COMPLEX #1 tablet 01/25/21 [Rx Last Taken Unknown] warfarin 5 mg tablet 5 mg PO .COMPLEX tablet 01/25/21 [History Last Taken Unknown] Allergy/AdvReac Type Severity Reaction Status Date / Time clindamycin Allergy Rash Verified 03/18/21 21:07 erythromycin base Allergy Rash Verified 03/18/21 21:07 [Erythromycin Base] omalizumab [From Xolair] Allergy Chest Verified 03/18/21 21:07 tightness Penicillins Allergy Rash Verified 03/18/21 21:07 sulfamethoxazole Allergy Chest Verified 03/18/21 21:07 [From Bactrim] tightness trimethoprim [From Bactrim] Allergy Chest Verified 03/18/21 21:07 tightness Sulfa (Sulfonamide AdvReac Unknown Unknown Verified 03/18/21 21:07 Antibiotics) Family History Father Heart disease Diabetes CAD (coronary artery disease) Mother CAD (coronary artery disease) CVA (cerebral vascular accident) Diabetes Brother CAD (coronary artery disease) CVA (cerebral vascular accident) Diabetes Unknown Cancer Grandmother CVA (cerebral vascular accident) Diabetes Grandfather CVA (cerebral vascular accident) Grandmother Myocardial infarction Brother Diabetes Sister Diabetes Surgical History H/O lumbosacral spine surgery History of section History of hernia repair History of left heart catheterization (LHC) (~01/19/21) History of neck surgery History of rotator cuff surgery Hx of appendectomy Social History household members: spouse housing: house Smoking Status: Never smoker second hand exposure: No alcohol intake: current alcohol intake frequency: a few times a week substance use type: does not use caffeine: No what type of physical activity do you participate in: none do you feel safe at home: Yes ROS ROS ED Constitutional Constitutional ED: Denies chills or fever(s) Eyes Eyes: Denies change in vision ENT ENT ED: Denies sore throat Cardiovascular Cardiovascular: Denies chest pain Respiratory/Chest Respiratory/Chest: Denies cough or dyspnea Gastrointestinal Gastrointestinal: Denies abdominal pain, diarrhea, nausea or vomiting Genitourinary Genitourinary ED: Denies dysuria Musculoskeletal Musculoskeletal: Reports back pain Integumentary Denies rash Neurologic Neurologic: Denies headache(s) or weakness Psychiatric Psychiatric: Denies anxiety or depression Endocrine Endocrinology: Denies polydipsia or polyuria Allergic/Immunologic Allergic/Immunologic ED: Denies urticaria EXAM Physical Exam Const Vital Signs: 03/18/21 21:05 03/18/21 21:28 Temperature 96.5 F L Temperature Source Temporal Pulse Rate 91 Respiratory Rate 16 Respiratory Effort Normal Non-Labored Blood Pressure 119/72 Blood Pressure Mean 87 Pulse Ox 96 Oxygen Delivery Method Room Air Positive well nourished and well developed General Appearance ED: well developed HEENT Reports normocephalic Eyes PERRL and EOMs intact bilaterally Neck full ROM Chest Wall inspection of chest normal and palpation of chest normal Resp normal respiratory effort and clear to auscultation bilaterally Cardio regular rate and regular rhythm GI non-tender Palpation: soft Back/Spine Back/Spine Narrative: Tenderness through the lumbar (midline and bilateral paraspinals) and posterior pelvis. No ecchymosis or abrasions. Extremity normal to inspection and full ROM Neuro oriented x3, moves all extremities and no sensory deficits noted Sensorium / Orientation: alert Motor Exam: strength 5/5 throughout MDM MDM MDM Narrative Medical decision making narrative: Patient was given head of oxycodone for pain. She was sent for CT flank. Radiography Diagnostic Testing: Radiology Impression Abdomen/Pelvis CT 03/18/21 21:21 IMPRESSION: Limited by patient''s size. No gross acute abnormality within the abdomen or pelvis. Nonobstructing right renal stone. Probable left renal cysts but these need to be confirmed with ultrasound. Electronically Signed: Dedrick Rodriguez MD at 22:21 EDT , Service support , Treatment and Re-Evaluation Comments:: CT reveals no obvious abnormalities. Arthritic changes are noted throughout the spine. On repeat evaluation patient is resting but still having pain. She be given a second dose of oxycodone and Lidoderm patch will be placed. She has Percocet at home that she will use and will follow up with her pain management doctor. Discharge Plan Triage Chief Complaint: Fall ED Provider: Yamile Jones Dx/Rx/DC Orders Clinical Impression: Fall, Strain of lumbar paraspinal muscle Instructions: ED Back Pain (Acute or Chronic), ED Mechanical Fall Prescriptions: No Action pregabalin [Lyrica] 100 mg capsule 150 mg PO TID RF: 0 moexipril 15 mg tablet 15 mg PO DAILY RF: 0 ergocalciferol (vitamin D2) 50,000 unit capsule 50,000 unit PO QWEEK RF: 0 trazodone 50 mg tablet 25 mg PO DAILY PRN PRN (Reason: Pain Or Fever) RF: 0 albuterol sulfate 2.5 mg /3 mL (0.083 %) solution for nebulization 2.5 mg INHALATION Q2H PRN PRN (Reason: dyspnea, wheezing) Qty: 180 RF: 6 ipratropium-albuterol 0.5 mg-3 mg(2.5 mg base)/3 mL solution for nebulization 3 ml INHALATION Q4H.RT Qty: 180 RF: 6 tiotropium bromide 18 mcg capsule, w/inhalation device 18 mcg INHALATION DAILY Qty: 1 RF: 6 albuterol sulfate 90 mcg/actuation HFA aerosol inhaler 2 inh INHALATION Q4H PRN PRN (Reason: Sob &/Or Wheezing) Qty: 18 RF: 6 budesonide-formoterol 160-4.5 mcg/actuation HFA aerosol inhaler 2 puff INHALATION BID Qty: 6 RF: 6 montelukast 10 mg tablet 10 mg PO DAILY Qty: 30 RF: 6 alendronate 70 mg tablet 70 mg PO QWEEK RF: 0 diltiazem HCl 240 mg capsule,extended release 24hr 240 mg PO DAILY RF: 0 pitavastatin calcium 4 mg tablet 4 mg PO DAILY RF: 0 desoximetasone 0.05 % cream 1 applic TOPICAL PRN PRN (Reason: Itching) RF: 0 meclizine 25 mg tablet 25 mg PO DAILY RF: 0 Certavite-Antioxidant 18-400 mg-mcg tablet 1 tab PO DAILY RF: 0 ergocalciferol (vitamin D2) [Drisdol] 1,250 mcg (50,000 unit) capsule 1,250 mcg PO QWEEK RF: 0 ondansetron 4 mg tablet,disintegrating 4 mg PO Q8H RF: 0 ranitidine HCl 150 mg capsule 150 mg capsule 150 mg PO QHS RF: 0 nystatin 100,000 unit/gram powder 1 applic TOPICAL BID RF: 0 rizatriptan 5 mg tablet 5 mg PO ONCE RF: 0 doxycycline hyclate 100 mg tablet 100 mg PO DIRECTED RF: 0 methylprednisolone 4 mg tablets,dose pack 1 tab PO DAILY RF: 0 fluoxetine 20 MG capsule 40 mg PO DAILY RF: 0 aspirin 81 MG tablet,delayed release (DR/EC) 81 mg PO QHS RF: 0 docusate sodium 100 MG capsule 100 mg PO BID RF: 0 uvrsugti-dxr-sqjb-FA-lutein 1 EACH tablet 1 ea PO DAILY RF: 0 omeprazole 40 MG capsule 40 mg PO DAILY RF: 0 potassium chloride 10 MEQ tablet 10 meq PO BID RF: 0 Pz-L4-dvx-gdlq-anq-ehej-boron 1 EACH tablet,chewable 1 ea PO BID RF: 0 fenofibrate nanocrystallized 145 MG tablet 72.5 mg PO DAILY RF: 0 insulin degludec 100 UNIT/ML solution 50 unit SQ BID RF: 0 dapagliflozin 10 MG tablet 10 mg PO DAILY RF: 0 semaglutide 1 MG/0.75 ML pen injector 1 mg SQ QWEEK RF: 0 furosemide 40 MG tablet 40 mg PO DAILY Qty: 0 RF: 0 beclomethasone dipropionate 80 mcg/actuation HFA aerosol breath activated 1 inh inhalation BID Qty: 10.6 RF: 6 epinephrine 0.3 mg/0.3 mL auto-injector 0.3 mg IM X1 PRN (Reason: Anaphylaxis) Qty: 1 RF: 0 enoxaparin [Lovenox] 120 mg/0.8 mL syringe 120 mg SC Q12H Qty: 8 RF: 1 warfarin 5 mg tablet 5 mg PO .COMPLEX RF: 0 warfarin 4 mg tablet 4 mg PO .COMPLEX Qty: 1 RF: 0 Primary Care Provider: Ophelia Soria Referrals: Ophelia Soria DO [Primary Care Provider] - 1 Week if not improving Disposition Disposition: Home, self care
[2021-03-18] MEDS: Lidocaine 5% Patch 1 PATCH TOPICAL (22:41)
== END 2021-03-18 22:57 | disposition home or self-care (01) ==
PROVIDERS: Emergency Provider Emergency Medicine; PCP Internal Medicine
DX: S39.012A Strain of muscle, fascia and tendon of lower back, initial encounter (principal); I25.10 Atherosclerotic heart disease of native coronary artery without angina pectoris; E66.01 Morbid (severe) obesity due to excess calories; E11.9 Type 2 diabetes mellitus without complications; K21.9 Gastro-esophageal reflux disease without esophagitis; J44.9 Chronic obstructive pulmonary disease, unspecified; I11.0 Hypertensive heart disease with heart failure; I50.30 Unspecified diastolic (congestive) heart failure; W19.XXXA Unspecified fall, initial encounter; Z79.01 Long term (current) use of anticoagulants; Z79.4 Long term (current) use of insulin; Z79.82 Long term (current) use of aspirin; Z79.899 Other long term (current) drug therapy; Z86.711 Personal history of pulmonary embolism; Z86.718 Personal history of other venous thrombosis and embolism
CPT/HCPCS: 74176; 99283

== ENCOUNTER → 2021-03-21 11:12 | Outpatient (CLI) | payer MEDICARE, MEDICAID, SELFPAY ==
[2021-01-18 14:03] VITALS: BMI 46.0
[2021-03-18 21:05] VITALS: BMI 44.2
--- NOTE | 2021-03-21 15:37 | NEURO_ITS ---
NCS and/or EMG Patient Report Ordering Doctor: Lisette Huertas DATE OF SERVICE: 03/21/21 Maryse presents for electrodiagnostic testing of the left upper limb. She reports pain in the left wrist with intermittent numbness in the hand. Electrodiagnostic findings: Left median motor nerve demonstrates normal distal latency and amplitude with reduced conduction velocity. Normal left ulnar motor response, including conduction across the elbow. Normal left median ulnar F- wave. Prolonged left median sensory latency at the wrist. Normal ulnar and radial sensory responses. On needle EMG, all muscles tested in the left upper limb showed no evidence of denervation with normal motor unit action potentials. Electrodiagnostic assessment: This is an abnormal study in the left upper limb 1. Electrodiagnostic findings demonstrate left-sided median mononeuropathy. This is consistent with a mild left carpal tunnel syndrome.
== END ==
PROVIDERS: PCP Internal Medicine; Referring Provider Orthopaedic Surgery; Visit Provider Orthopaedic Surgery
DX: G56.02 Carpal tunnel syndrome, left upper limb (principal)
CPT/HCPCS: 95886; 95910

== ENCOUNTER 2021-03-22 16:59 | Observation (INO) | payer MEDICARE, MEDICAID, SELFPAY ==
[2021-03-22 17:00] VITALS: BP 131/83; PULSE 85; RESP 18; TEMP 36.7; O2SAT 94; BMI 48.2
--- NOTE | 2021-03-22 17:11 | CT_ITS ---
STUDY: CT BRAIN WITHOUT CONTRAST REASON FOR EXAM: Female, 60 years old. fall RADIATION DOSAGE (If Supplied By Facility): CTDIvol = ( 44.99 ) mGy, DLP = ( 812.98 ) mGycm TECHNIQUE: Transaxial CT imaging of the brain was performed without administration of intravenous contrast material. Individualized dose optimization techniques were used for this CT. COMPARISON: 07/23/2020 FINDINGS: Normal soft tissue structures. Normal calvarium. Calcification of cavernous carotids. Mild cortical atrophy and periventricular white matter ischemic changes. Normal basal ganglia and thalami. Normal brainstem. Normal cerebellum. There is no intracranial hemorrhage. There are no findings of an acute ischemic infarction. Postsurgical changes of the orbits. Normal visualized paranasal sinuses. CT/Brain/Head without Contrast IMPRESSION: Mild atrophy and periventricular white matter ischemic change. No evidence for acute bleed Electronically Signed: Josehp oTrres MD at 18:31 EDT , Service support ,
--- NOTE | 2021-03-22 17:13 | EX.ED.GENINJ ---
HPI History of Present Illness Chief Complaint: Fall Detail of Chief Complaint: Fall with injury to left hip Onset/Context/Timing Onset: Today Maximum Severity: Severe Narrative Narrative: Patient presents to the emergency department after sustaining a fall outside her home. Patient states that she stepped outside her home in her left leg gave out causing her to fall. Patient states that her left knee hit the concrete. She was able to rollover and they were able to get her up with her Rollator and she was actually able to get into the house while being able to bear some weight. Once EMS arrived she was unable to bear weight. Complains of pain mostly left hip. She does describe a headache and she is not sure if she hit her head. She is on Eliquis for history of PE. Patient states that she really cannot feel her left leg. [facility] Medical History Asthma Atherosclerotic heart disease of [place] coronary artery without angina pectoris Back pain with sciatica Bilateral carotid bruits Body mass index 45.0-49.9, adult Carotid artery disease COPD (chronic obstructive pulmonary disease) Diastolic heart failure Essential hypertension GERD (gastroesophageal reflux disease) History of DVT (deep vein thrombosis) History of pulmonary embolism Morbid obesity Nonrheumatic aortic (valve) stenosis CHELSEY treated with BiPAP Personal history of anaphylaxis Type 2 diabetes mellitus Home Medications fluoxetine 40 mg PO DAILY 01/26/14 [History Last Taken 11/12/17 40 mg] aspirin 81 mg PO QHS 01/06/16 [History Last Taken 01/19/21] docusate sodium 100 mg PO BID 01/06/16 [History Last Taken 11/12/17 100 mg] oivclzom-shg-chsa-FA-lutein 1 ea PO DAILY 01/06/16 [History Last Taken 11/12/17 1 tablet] omeprazole 40 mg PO DAILY 01/06/16 [History Last Taken 11/12/17 40 mg] potassium chloride 10 meq PO BID 01/06/16 [History Last Taken 11/12/17 10 meq] Ie-X9-hme-zsor-fwm-djro-boron 1 ea PO BID 05/27/16 [History Last Taken 11/12/17 1 tablet] fenofibrate nanocrystallized 72.5 mg PO DAILY 04/26/19 [History Last Taken Unknown] ergocalciferol (vitamin D2) 1,250 mcg (50,000 unit) capsule 50,000 unit PO QWEEK 08/09/19 [History Last Taken Unknown] moexipril 15 mg tablet 15 mg PO DAILY 08/09/19 [History Last Taken Unknown] trazodone 50 mg tablet 25 mg PO DAILY PRN PRN 08/09/19 [History Last Taken Unknown] dapagliflozin 10 mg PO DAILY 11/22/19 [History Last Taken Unknown] insulin degludec 50 unit SQ BID 11/22/19 [History Last Taken Unknown] semaglutide 1 mg SQ QWEEK 11/22/19 [History Last Taken Unknown] furosemide 40 mg PO DAILY #0 12/29/19 [Rx Last Taken 11/12/17 20 mg] beclomethasone dipropionate 80 mcg/actuation HFA breath activated aerosol 1 inh INHALATION BID #10.6 g 01/18/20 [Rx Last Taken Unknown] epinephrine 0.3 mg/0.3 mL injection, auto-injector 0.3 mg IM X1 PRN #1 ea 01/18/20 [Rx Last Taken Unknown] albuterol sulfate 2.5 mg INHALATION Q2H PRN PRN #180 ml 04/24/20 [Rx Last Taken Unknown] albuterol sulfate 90 mcg/actuation aerosol inhaler 2 inh INHALATION Q4H PRN PRN #18 g 04/24/20 [Rx Last Taken Unknown] ipratropium 0.5 mg-albuterol 3 mg (2.5 mg base)/3 mL nebulization soln 3 ml INHALATION Q4H.RT #180 ml 04/24/20 [Rx Last Taken Unknown] tiotropium bromide 18 mcg capsule with inhalation device 18 mcg INHALATION DAILY #1 inh 04/24/20 [Rx Last Taken Unknown] pregabalin 100 mg capsule 150 mg PO TID cap 07/21/20 [History Last Taken Unknown] budesonide-formoterol HFA 160 mcg-4.5 mcg/actuation aerosol inhaler 2 puff INHALATION BID #6 g 12/07/20 [Rx Last Taken Unknown] montelukast 10 mg tablet 10 mg PO DAILY #30 tab 12/07/20 [Rx Last Taken Unknown] alendronate 70 mg tablet 70 mg PO QWEEK tab 12/21/20 [History Last Taken Unknown] desoximetasone 0.05 % topical cream 1 applic TOPICAL PRN PRN g 12/21/20 [History Last Taken Unknown] diltiazem HCl 240 mg capsule,extended release 24 hr 240 mg PO DAILY cap 12/21/20 [History Last Taken 01/19/21] doxycycline hyclate 100 mg tablet 100 mg PO DIRECTED tab 12/21/20 [History Last Taken Unknown] ergocalciferol (vitamin D2) 1,250 mcg (50,000 unit) capsule 1,250 mcg PO QWEEK 12/21/20 [History Last Taken Unknown] meclizine 25 mg tablet 25 mg PO DAILY 12/21/20 [History Last Taken Unknown] methylprednisolone 4 mg tablets in a dose pack 1 tab PO DAILY 12/21/20 [History Last Taken Unknown] multivitamin-ferrous fumarate-folic acid 18 mg-400 mcg tablet 1 tab PO DAILY 12/21/20 [History Last Taken Unknown] nystatin 100,000 unit/gram topical powder 1 applic TOPICAL BID 12/21/20 [History Last Taken Unknown] ondansetron 4 mg disintegrating tablet 4 mg PO Q8H 12/21/20 [History Last Taken Unknown] pitavastatin calcium 4 mg tablet 4 mg PO DAILY tab 12/21/20 [History Last Taken Unknown] ranitidine HCl 150 mg capsule 150 mg PO QHS cap 12/21/20 [History Last Taken Unknown] rizatriptan 5 mg tablet 5 mg PO ONCE 12/21/20 [History Last Taken Unknown] enoxaparin 120 mg/0.8 mL subcutaneous syringe 120 mg SC Q12H #8 ml 01/15/21 [Rx Last Taken 01/18/21 21:00] warfarin 4 mg tablet 4 mg PO .COMPLEX #1 tablet 01/25/21 [Rx Last Taken Unknown] warfarin 5 mg tablet 5 mg PO .COMPLEX tablet 01/25/21 [History Last Taken Unknown] Allergy/AdvReac Type Severity Reaction Status Date / Time clindamycin Allergy Rash Verified 03/22/21 17:03 erythromycin base Allergy Rash Verified 03/22/21 17:03 [Erythromycin Base] omalizumab [From Xolair] Allergy Chest Verified 03/22/21 17:03 tightness Penicillins Allergy Rash Verified 03/22/21 17:03 sulfamethoxazole Allergy Chest Verified 03/22/21 17:03 [From Bactrim] tightness trimethoprim [From Bactrim] Allergy Chest Verified 03/22/21 17:03 tightness Sulfa (Sulfonamide AdvReac Unknown Unknown Verified 03/22/21 17:03 Antibiotics) Family History Father Heart disease Diabetes CAD (coronary artery disease) Mother CAD (coronary artery disease) CVA (cerebral vascular accident) Diabetes Brother CAD (coronary artery disease) CVA (cerebral vascular accident) Diabetes Unknown Cancer Grandmother CVA (cerebral vascular accident) Diabetes Grandfather CVA (cerebral vascular accident) Grandmother Myocardial infarction Brother Diabetes Sister Diabetes Surgical History H/O lumbosacral spine surgery History of section History of hernia repair History of left heart catheterization (LHC) (~01/19/21) History of neck surgery History of rotator cuff surgery Hx of appendectomy Social History household members: spouse housing: house Smoking Status: Never smoker second hand exposure: No alcohol intake: current alcohol intake frequency: a few times a week substance use type: does not use caffeine: No what type of physical activity do you participate in: none do you feel safe at home: Yes ROS ROS ED Constitutional Constitutional ED: Reports systems reviewed and no addt'l complaints, except as documented; Denies body ache(s), change in weight or chills Eyes Eyes: Denies acute decrease in peripheral vision, change in vision, double vision or loss of vision ENT ENT ED: Reports none; Denies ear pain, lip swelling, loss taste/smell, neck pain, otalgia or sore throat Cardiovascular Cardiovascular: Reports none; Denies abdominal pain, chest pain with activity, leg edema, lightheadedness, palpitations, rapid heart rate or syncope Respiratory/Chest Respiratory/Chest: Reports none; Denies change in mental status, dry cough, dyspnea, hemoptysis, shortness of breath at rest or shortness of breath with exertion Gastrointestinal Gastrointestinal: Reports none; Denies abdominal pain, change in stool character, diarrhea, hematemesis, hematochezia, melena, rectal bleeding or vomiting Genitourinary Genitourinary ED: Reports none; Denies abdominal discomfort, anuria, dysuria, genital pain or polyuria Musculoskeletal Musculoskeletal: Reports none and other Details: Left hip pain ; Denies arthralgias, back pain, difficulty walking, extremity pain, muscle weakness or myalgias Integumentary Reports none; Denies abscess or rash Neurologic Neurologic: Reports none; Denies abnormal gait, confusion, focal weakness, frequent falls, headache(s), loss of vision, numbness, paresthesias, radicular pain, vertigo or weakness Psychiatric Psychiatric: Reports systems reviewed and no addt'l complaints, except as documented and none; Denies behavioral changes, confusion, difficulty concentrating, hallucinations, suicidal ideation, tactile hallucinations or visual hallucinations Endocrine Endocrinology: Denies none, cold intolerance, excessive sweating, fatigue or heat intolerance Hematologic/Lymphatic Hematologic/Lymphatic: Reports none; Denies anemia, easy bleeding or easy bruising Allergic/Immunologic Allergic/Immunologic ED: Denies as per HPI, none, lip swelling, mouth swelling, throat swelling, tongue swelling or hives EXAM Physical Exam Const Vital Signs: 03/22/21 17:00 03/22/21 18:59 Temperature 98.1 F Temperature Source Oral Pulse Rate 85 81 Respiratory Rate 18 18 Blood Pressure 131/83 H 130/66 H Blood Pressure Mean 99 87 Pulse Ox 94 95 Oxygen Delivery Method Room Air Room Air Positive well nourished and well developed General Appearance ED: well developed and NAD HEENT Reports TM's clear and moist mucous membranes normocephalic and atraumatic; Negative for trauma or tenderness Tympanic Membrane ED: Yes TM's clear Eyes PERRL and EOMs intact bilaterally General Eye ED: Negative for pale conjunctiva or scleral icterus Neck no lymphadenopathy, supple and no JVD General: Negative for tenderness Chest Wall inspection of chest normal and palpation of chest normal Chest: Negative for tenderness Resp normal respiratory effort and clear to auscultation bilaterally Effort and Inspection: Negative for respiratory distress or pain with movement Auscultation: Negative for rhonchi, wheezes or diminished lung sounds Cardio regular rate, regular rhythm, S1 normal heart sound, S2 normal heart sound and no murmurs Peripheral Pulses: pulses 2+ throughout GI normal to inspection, nondistended, normoactive bowel sounds, soft to palpation, non-tender, non-distended and no masses Back/Spine no CVA tenderness and no thoracic nor lumbar tenderness Extremity normal to inspection Extremity Narrative: Left lower extremity-patient has tenderness palpation over the left hip. There is no external rotation or shortening noted. She does have pain with logrolling. Normal pulses distally. Patient does have superficial abrasion to the anterior aspect of the left knee with minimal tenderness on palpation. Patient does not tolerate ligamentous exam given the hip pain. General Extremety ED: Negative for edema General Extremity: Negative for edema Neuro oriented x3, CN's II-XII intact bilaterally, no sensory deficits noted and gait normal Sensorium / Orientation: awake, alert, oriented to person, oriented to place and oriented to time Motor Exam: strength 5/5 throughout and strength abnormal Psych mental status grossly normal Skin no rashes or lesions noted and no wounds MDM MDM MDM Narrative Medical decision making narrative: Patient was medicated with morphine and Zofran x2 and she continues to complain of pain. We attempted to ambulate the patient with walker unsuccessfully. Patient cannot bear weight. Initially I had a question as to possible lucency through the subcapital region of the left hip concerning for fracture although radiology thought it was normal they recommended CT scan if clinically concerning for fracture. CT scan showed no evidence of fracture. Lab Data Attestation: I reviewed the patient's lab results. Labs: Laboratory Results - last 24 hr 03/22/21 03/22/21 17:36 17:36 WBC 7.7 RBC 5.00 Hgb 14.7 Hct 45.3 MCV 90.6 MCH 29.4 MCHC 32.5 RDW Std Deviation 47.0 H RDW Coeff of [place] 14.2 Plt Count 253 MPV 11.3 Immature Gran % (Auto) 0.900 Neut % (Auto) 64.3 Lymph % (Auto) 22.9 [place] % (Auto) 10.1 H Eos % (Auto) 0.9 Baso % (Auto) 0.9 Absolute Neuts (auto) 4.9 Absolute Lymphs (auto) 1.75 Nucleated RBC % 0 Sodium 144 Potassium 3.5 Chloride 108 H Carbon Dioxide 30.0 Anion Gap 6 BUN 10 Creatinine 0.46 L Estim Creat Clear Calc 106.24 Est GFR (MDRD) Af Amer 177 Est GFR (MDRD) Non-Af 147 BUN/Creatinine Ratio 21.7 H Glucose 122 H Calcium 8.5 Radiography Diagnostic Testing: Radiology Impression Brain CT 03/22/21 17:11 IMPRESSION: Mild atrophy and periventricular white matter ischemic change. No evidence for acute bleed Electronically Signed: Joseph Torres MD at 18:31 EDT , Service support , Chest X-Ray 03/22/21 17:48 IMPRESSION: No acute cardiopulmonary pathology Electronically Signed: Joseph Torres MD at 18:54 EDT , Service support , Hip/Pelvis X-Ray 03/22/21 17:48 IMPRESSION: Normal x-ray examination of the pelvis and hip. No definitive evidence for acute hip fracture. However, if clinical suspicion for hip fracture CT recommended Electronically Signed: Joseph Torres MD at 18:57 EDT , Service support , Lower Extremity CT 03/22/21 19:30 IMPRESSION: Mild osteoarthritic changes of left hip. No evidence for acute fracture of left hip or visualized portions of the pelvis Electronically Signed: Joseph Torres MD at 20:26 EDT , Service support , Chest x-ray 1 view obtained interpreted by myself as no acute disease process. Radiology in agreement. X-rays of the left hip and pelvis obtained interpreted by myself as questionable lucency through the subcapital region of the left hip concerning for fracture. Radiology felt the x-ray was normal. Discharge Plan Triage Chief Complaint: Fall ED Provider: Megha Rodrigues Dx/Rx/DC Orders Clinical Impression: Contusion of hip, left, Fall, Inability to ambulate due to hip Prescriptions: No Action pregabalin [Lyrica] 100 mg capsule 150 mg PO TID RF: 0 moexipril 15 mg tablet 15 mg PO DAILY RF: 0 ergocalciferol (vitamin D2) 50,000 unit capsule 50,000 unit PO QWEEK RF: 0 trazodone 50 mg tablet 25 mg PO DAILY PRN PRN (Reason: Pain Or Fever) RF: 0 albuterol sulfate 2.5 mg /3 mL (0.083 %) solution for nebulization 2.5 mg INHALATION Q2H PRN PRN (Reason: dyspnea, wheezing) Qty: 180 RF: 6 ipratropium-albuterol 0.5 mg-3 mg(2.5 mg base)/3 mL solution for nebulization 3 ml INHALATION Q4H.RT Qty: 180 RF: 6 tiotropium bromide 18 mcg capsule, w/inhalation device 18 mcg INHALATION DAILY Qty: 1 RF: 6 albuterol sulfate 90 mcg/actuation HFA aerosol inhaler 2 inh INHALATION Q4H PRN PRN (Reason: Sob &/Or Wheezing) Qty: 18 RF: 6 budesonide-formoterol 160-4.5 mcg/actuation HFA aerosol inhaler 2 puff INHALATION BID Qty: 6 RF: 6 montelukast 10 mg tablet 10 mg PO DAILY Qty: 30 RF: 6 alendronate 70 mg tablet 70 mg PO QWEEK RF: 0 diltiazem HCl 240 mg capsule,extended release 24hr 240 mg PO DAILY RF: 0 pitavastatin calcium 4 mg tablet 4 mg PO DAILY RF: 0 desoximetasone 0.05 % cream 1 applic TOPICAL PRN PRN (Reason: Itching) RF: 0 meclizine 25 mg tablet 25 mg PO DAILY RF: 0 Certavite-Antioxidant 18-400 mg-mcg tablet 1 tab PO DAILY RF: 0 ergocalciferol (vitamin D2) [Drisdol] 1,250 mcg (50,000 unit) capsule 1,250 mcg PO QWEEK RF: 0 ondansetron 4 mg tablet,disintegrating 4 mg PO Q8H RF: 0 ranitidine HCl 150 mg capsule 150 mg capsule 150 mg PO QHS RF: 0 nystatin 100,000 unit/gram powder 1 applic TOPICAL BID RF: 0 rizatriptan 5 mg tablet 5 mg PO ONCE RF: 0 doxycycline hyclate 100 mg tablet 100 mg PO DIRECTED RF: 0 methylprednisolone 4 mg tablets,dose pack 1 tab PO DAILY RF: 0 fluoxetine 20 MG capsule 40 mg PO DAILY RF: 0 aspirin 81 MG tablet,delayed release (DR/EC) 81 mg PO QHS RF: 0 docusate sodium 100 MG capsule 100 mg PO BID RF: 0 eqjyhljj-kyv-shgv-FA-lutein 1 EACH tablet 1 ea PO DAILY RF: 0 omeprazole 40 MG capsule 40 mg PO DAILY RF: 0 potassium chloride 10 MEQ tablet 10 meq PO BID RF: 0 Uq-N6-lcf-vxrf-see-slni-boron 1 EACH tablet,chewable 1 ea PO BID RF: 0 fenofibrate nanocrystallized 145 MG tablet 72.5 mg PO DAILY RF: 0 insulin degludec 100 UNIT/ML solution 50 unit SQ BID RF: 0 dapagliflozin 10 MG tablet 10 mg PO DAILY RF: 0 semaglutide 1 MG/0.75 ML pen injector 1 mg SQ QWEEK RF: 0 furosemide 40 MG tablet 40 mg PO DAILY Qty: 0 RF: 0 beclomethasone dipropionate 80 mcg/actuation HFA aerosol breath activated 1 inh inhalation BID Qty: 10.6 RF: 6 epinephrine 0.3 mg/0.3 mL auto-injector 0.3 mg IM X1 PRN (Reason: Anaphylaxis) Qty: 1 RF: 0 enoxaparin [Lovenox] 120 mg/0.8 mL syringe 120 mg SC Q12H Qty: 8 RF: 1 warfarin 5 mg tablet 5 mg PO .COMPLEX RF: 0 warfarin 4 mg tablet 4 mg PO .COMPLEX Qty: 1 RF: 0 Primary Care Provider: Ophelia Soria Referrals: Ophelia Soria DO [Primary Care Provider] - Disposition Disposition: Acute Care Hospital [facility]
[2021-03-22] MEDS: Ondansetron 4 MG/2 ML Vial IV (17:30)
[2021-03-22] MEDS: Morphine 4 MG/ML Syringe IV ×3 (17:31→21:24)
--- NOTE | 2021-03-22 17:48 | RAD_ITS ---
STUDY: X-RAY - PELVIS AND LEFT HIP REASON FOR EXAM: Female, 60 years old. fall TECHNIQUE: 4 views of the pelvis and hip. COMPARISON: None. FINDINGS: There is a non-specific bowel gas pattern. Normal visualized soft tissue structures. Normal bilateral iliac wings, sacroiliac joints and visualized sacrum. Normal bilateral superior and inferior pubic rami. Normal pubic symphysis. Normal bilateral ischial tuberosities. Normal visualized femoral head. Normal acetabulum. Normal hip joint. RAD/HIP, UNI W/ Pelvis 2-3 Views IMPRESSION: Normal x-ray examination of the pelvis and hip. No definitive evidence for acute hip fracture. However, if clinical suspicion for hip fracture CT recommended Electronically Signed: Joseph Torres MD at 18:57 EDT , Service support ,
--- NOTE | 2021-03-22 17:48 | RAD_ITS ---
STUDY: X-RAY CHEST REASON FOR EXAM: Female, 60 years old. FALL TECHNIQUE: AP portable COMPARISON: 07/23/2020 FINDINGS: Mildly elevated right hemidiaphragm. There is no demonstrated pleural abnormality. Normal size heart. Normal mediastinum and yulisa. Normal visualized pulmonary arteries. Normal visualized aortic arch and descending thoracic aorta. Postsurgical changes of the cervical spine Dorsal spine demonstrates degenerative changes. Normal visualized ribs, clavicles, and shoulders. There is no demonstrated abnormality of the visualized soft tissue structures of the upper abdomen. RAD/Chest 1 View (Portable) IMPRESSION: No acute cardiopulmonary pathology Electronically Signed: Joseph Torres MD at 18:54 EDT , Service support ,
[2021-03-22 18:01] LABS: Absolute Lymphocyte Count 1.75 X10^3/uL (0.83-4.51); Absolute Neutrophil Count 4.9 X10^3/uL (2.0-7.7); Basophil# 0.07 X10^3/uL; Basophil% 0.9 % (0-1); Eosinophil# 0.07 X10^3/uL; Eosinophils% 0.9 % (0-5); Hematocrit 45.3 % (37-47); Hemoglobin 14.7 g/dL (12.0-15.0); Lymphocyte # 1.75 X10^3/ul (0.83-4.51); Lymphocyte % 22.9 % (19-41); Mean Corp Hgb Conc 32.5 g/dL (32-36); Mean Corpuscular Hgb 29.4 pg (27.0-32.0); Mean Corpuscular Volume 90.6 fL (81-99); Mean Platelet Vol. 11.3 fl (6.2-12.0); Monocyte# 0.77 X10^3/uL; Monocyte% 10.1 % (0-10); NRBC Flagged by Analyzer 0 % (0-5); Neutrophil # 4.92 X10^3/uL (2.7-7.7); Neutrophil % 64.3 % (47-70); Platelet Count 253 K/mm3 (150-450); RBC Distribution Width CV 14.2 % (11.6-14.6); White Blood Count 7.7 K/mm3 (4.4-11.0)
[2021-03-22 18:07] LABS: Anion Gap 6 (5-15); BUN 10 mg/dL (7-18); BUN/Creat Ratio 21.7 RATIO (10-20); Calcium,Total 8.5 mg/dL (8.5-10.1); Chloride 108 mmol/L (98-107); Creatinine, Serum 0.46 mg/dL (0.55-1.02); EST Glomerular Filtration Rate 147 mL/min (>60); Est Glom Filt Rate - Afr Amer 177 mL/min (>60); Estimated Creatinine Clearance 106.24 ml/min; Glucose 122 mg/dL (74-106); Potassium 3.5 mmol/L (3.5-5.1); Sodium Level 144 mmol/L (136-145)
[2021-03-22 18:59] VITALS: BP 130/66; PULSE 81; RESP 18; O2SAT 95
--- NOTE | 2021-03-22 19:30 | CT_ITS ---
CT of the left hip INDICATION: Posttraumatic pain TECHNIQUE: CT of the left hip was performed in the axial projection without contrast followed by sagittal coronal reconstructions. Radiographic technique was optimized to limit patient radiation dose. DLP was 1603.39 FINDINGS: No evidence for acute fracture or dislocation of the left hip. Joint space is well-maintained although there is mild acetabular spurring. The acetabulum is intact. No lytic destructive changes are seen. CT/Extremity Lower without Contra IMPRESSION: Mild osteoarthritic changes of left hip. No evidence for acute fracture of left hip or visualized portions of the pelvis Electronically Signed: Joseph Torres MD at 20:26 EDT , Service support ,
--- NOTE | 2021-03-22 21:07 | HP.PCM.HOS_ITS ---
[facility] - General General Date of Admission: 03/22/21 Date of Service: 03/22/21 Chief Complaint: Fall HPI Narrative NATHALIE HERMAN, is a 60 F with a significant history of asthma; diabetes mellitus; aortic stenosis; DVT and PE who presents to the emergency department with a fall. At baseline occasionally patient uses a walker. Patient reported on the day of presentation she fell 2 times. Reportedly she was outside her home and her left leg gave up. Further, she had no sensation in her left leg. She fell hitting her left hip and kneecap onto a sidewalk and then onto the grass. Her family helped her with a rollator. She reports excruciating pain in her left lower extremity. At the emergency department attempt was made for her to walk so she could go home. However because she had excruciating pain and she could not bear weight on her left leg a decision was made to observe her at the hospital. 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 Back pain with sciatica Bilateral carotid bruits Body mass index 45.0-49.9, adult Carotid artery disease COPD (chronic obstructive pulmonary disease) Diastolic heart failure Essential hypertension GERD (gastroesophageal reflux disease) History of DVT (deep vein thrombosis) History of pulmonary embolism Morbid obesity Nonrheumatic aortic (valve) stenosis CHELSEY treated with BiPAP Personal history of anaphylaxis Type 2 diabetes mellitus Home Medications fluoxetine 40 mg PO DAILY 01/26/14 [History Last Taken 11/12/17 40 mg] aspirin 81 mg PO QHS 01/06/16 [History Last Taken 01/19/21] docusate sodium 100 mg PO BID 01/06/16 [History Last Taken 11/12/17 100 mg] fswswdfd-fku-oopo-FA-lutein 1 ea PO DAILY 01/06/16 [History Last Taken 11/12/17 1 tablet] omeprazole 40 mg PO DAILY 01/06/16 [History Last Taken 11/12/17 40 mg] potassium chloride 10 meq PO BID 01/06/16 [History Last Taken 11/12/17 10 meq] Fd-A0-oaf-gztj-dfu-leue-boron 1 ea PO BID 05/27/16 [History Last Taken 11/12/17 1 tablet] fenofibrate nanocrystallized 72.5 mg PO DAILY 04/26/19 [History Last Taken Unknown] ergocalciferol (vitamin D2) 1,250 mcg (50,000 unit) capsule 50,000 unit PO QWEEK 08/09/19 [History Last Taken Unknown] moexipril 15 mg tablet 15 mg PO DAILY 08/09/19 [History Last Taken Unknown] trazodone 50 mg tablet 25 mg PO DAILY PRN PRN 08/09/19 [History Last Taken Unknown] dapagliflozin 10 mg PO DAILY 11/22/19 [History Last Taken Unknown] insulin degludec 50 unit SQ BID 11/22/19 [History Last Taken Unknown] semaglutide 1 mg SQ QWEEK 11/22/19 [History Last Taken Unknown] furosemide 40 mg PO DAILY #0 12/29/19 [Rx Last Taken 11/12/17 20 mg] beclomethasone dipropionate 80 mcg/actuation HFA breath activated aerosol 1 inh INHALATION BID #10.6 g 01/18/20 [Rx Last Taken Unknown] epinephrine 0.3 mg/0.3 mL injection, auto-injector 0.3 mg IM X1 PRN #1 ea 01/18/20 [Rx Last Taken Unknown] albuterol sulfate 2.5 mg INHALATION Q2H PRN PRN #180 ml 04/24/20 [Rx Last Taken Unknown] albuterol sulfate 90 mcg/actuation aerosol inhaler 2 inh INHALATION Q4H PRN PRN #18 g 04/24/20 [Rx Last Taken Unknown] ipratropium 0.5 mg-albuterol 3 mg (2.5 mg base)/3 mL nebulization soln 3 ml INHALATION Q4H.RT #180 ml 04/24/20 [Rx Last Taken Unknown] tiotropium bromide 18 mcg capsule with inhalation device 18 mcg INHALATION DAILY #1 inh 04/24/20 [Rx Last Taken Unknown] pregabalin 100 mg capsule 150 mg PO TID cap 07/21/20 [History Last Taken Unknown] budesonide-formoterol HFA 160 mcg-4.5 mcg/actuation aerosol inhaler 2 puff INHALATION BID #6 g 12/07/20 [Rx Last Taken Unknown] montelukast 10 mg tablet 10 mg PO DAILY #30 tab 12/07/20 [Rx Last Taken Unknown] alendronate 70 mg tablet 70 mg PO QWEEK tab 12/21/20 [History Last Taken Unknown] desoximetasone 0.05 % topical cream 1 applic TOPICAL PRN PRN g 12/21/20 [History Last Taken Unknown] diltiazem HCl 240 mg capsule,extended release 24 hr 240 mg PO DAILY cap 12/21/20 [History Last Taken 01/19/21] doxycycline hyclate 100 mg tablet 100 mg PO DIRECTED tab 12/21/20 [History Last Taken Unknown] ergocalciferol (vitamin D2) 1,250 mcg (50,000 unit) capsule 1,250 mcg PO QWEEK 12/21/20 [History Last Taken Unknown] meclizine 25 mg tablet 25 mg PO DAILY 12/21/20 [History Last Taken Unknown] methylprednisolone 4 mg tablets in a dose pack 1 tab PO DAILY 12/21/20 [History Last Taken Unknown] multivitamin-ferrous fumarate-folic acid 18 mg-400 mcg tablet 1 tab PO DAILY 12/21/20 [History Last Taken Unknown] nystatin 100,000 unit/gram topical powder 1 applic TOPICAL BID 12/21/20 [History Last Taken Unknown] ondansetron 4 mg disintegrating tablet 4 mg PO Q8H 12/21/20 [History Last Taken Unknown] pitavastatin calcium 4 mg tablet 4 mg PO DAILY tab 12/21/20 [History Last Taken Unknown] ranitidine HCl 150 mg capsule 150 mg PO QHS cap 12/21/20 [History Last Taken Unknown] rizatriptan 5 mg tablet 5 mg PO ONCE 12/21/20 [History Last Taken Unknown] enoxaparin 120 mg/0.8 mL subcutaneous syringe 120 mg SC Q12H #8 ml 01/15/21 [Rx Last Taken 01/18/21 21:00] warfarin 4 mg tablet 4 mg PO .COMPLEX #1 tablet 01/25/21 [Rx Last Taken Unknown] warfarin 5 mg tablet 5 mg PO .COMPLEX tablet 01/25/21 [History Last Taken Unknown] Allergy/AdvReac Type Severity Reaction Status Date / Time clindamycin Allergy Rash Verified 03/22/21 17:03 erythromycin base Allergy Rash Verified 03/22/21 17:03 [Erythromycin Base] omalizumab [From Xolair] Allergy Chest Verified 03/22/21 17:03 tightness Penicillins Allergy Rash Verified 03/22/21 17:03 sulfamethoxazole Allergy Chest Verified 03/22/21 17:03 [From Bactrim] tightness trimethoprim [From Bactrim] Allergy Chest Verified 03/22/21 17:03 tightness Sulfa (Sulfonamide AdvReac Unknown Unknown Verified 03/22/21 17:03 Antibiotics) Family History Father Heart disease Diabetes CAD (coronary artery disease) Mother CAD (coronary artery disease) CVA (cerebral vascular accident) Diabetes Brother CAD (coronary artery disease) CVA (cerebral vascular accident) Diabetes Unknown Cancer Grandmother CVA (cerebral vascular accident) Diabetes Grandfather CVA (cerebral vascular accident) Grandmother Myocardial infarction Brother Diabetes Sister Diabetes Surgical History H/O lumbosacral spine surgery History of section History of hernia repair History of left heart catheterization (LHC) (~01/19/21) History of neck surgery History of rotator cuff surgery Hx of appendectomy Social History household members: spouse housing: house Smoking Status: Never smoker second hand exposure: No alcohol intake: current alcohol intake frequency: a few times a week substance use type: does not use caffeine: No what type of physical activity do you participate in: none do you feel safe at home: Yes ROS ROS Narrative 12 point review of system is negative except as stated in HPI. Vital Signs Vital Signs Vital Signs: 03/22/21 17:00 03/22/21 18:59 Temperature 98.1 F Temperature Source Oral Pulse Rate 85 81 Respiratory Rate 18 18 Blood Pressure 131/83 H 130/66 H Blood Pressure Mean 99 87 Pulse Ox 94 95 Oxygen Delivery Method Room Air Room Air Weight Weight: 123.6 kg Body Mass Index (BMI) 48.2 Physical Exam Narrative Alert and oriented x3 Nontraumatic; normocephalic Lung with mild wheezes Murmur present regular rate and rhythm Abdomen bowel sounds present soft, nontender nondistended Extremity: 1+ bilateral feet edema. Integumentary: Excoriation on left kneecap and below the left kneecap Results Lab / Micro Data Result Diagrams: 03/22/21 17:36 03/22/21 17:36 Labs: Laboratory Results - last 24 hr 03/22/21 03/22/21 17:36 17:36 WBC 7.7 RBC 5.00 Hgb 14.7 Hct 45.3 MCV 90.6 MCH 29.4 MCHC 32.5 RDW Std Deviation 47.0 H RDW Coeff of Carmencita 14.2 Plt Count 253 MPV 11.3 Immature Gran % (Auto) 0.900 Neut % (Auto) 64.3 Lymph % (Auto) 22.9 [place] % (Auto) 10.1 H Eos % (Auto) 0.9 Baso % (Auto) 0.9 Absolute Neuts (auto) 4.9 Absolute Lymphs (auto) 1.75 Nucleated RBC % 0 Sodium 144 Potassium 3.5 Chloride 108 H Carbon Dioxide 30.0 Anion Gap 6 BUN 10 Creatinine 0.46 L Estim Creat Clear Calc 106.24 Est GFR (MDRD) Af Amer 177 Est GFR (MDRD) Non-Af 147 BUN/Creatinine Ratio 21.7 H Glucose 122 H Calcium 8.[address] 03/22/21 17:11 IMPRESSION: Mild atrophy and periventricular white matter ischemic change. No evidence for acute bleed Electronically Signed: Joseph Torres MD at 18:31 EDT , Service support , Chest X-Ray 03/22/21 17:48 IMPRESSION: No acute cardiopulmonary pathology Electronically Signed: Joseph Torres MD at 18:54 EDT , Service support , Hip/Pelvis X-Ray 03/22/21 17:48 IMPRESSION: Normal x-ray examination of the pelvis and hip. No definitive evidence for acute hip fracture. However, if clinical suspicion for hip fracture CT recommended Electronically Signed: Joseph Torres MD at 18:57 EDT , Service support , Lower Extremity CT 03/22/21 19:30 IMPRESSION: Mild osteoarthritic changes of left hip. No evidence for acute fracture of left hip or visualized portions of the pelvis Electronically Signed: Joseph Torres MD at 20:26 EDT , Service support , Assessment & Plan Assessment/Plan (1) Fall: QUALIFIERS: Encounter type: initial encounter Qualified Code(s): W19.XXXA - Unspecified fall, initial encounter (2) Essential hypertension: (3) Contusion of hip, left: (4) Morbid (severe) obesity due to excess calories: PLAN: Fall with intractable left lower extremity pain Brain CT with no bleed. Brain CT was independently interpreted. I agree with radiologist interpretation. Lower extremity CT with no evidence of acute fracture. Received multiple doses of IV morphine in the emergency department. As needed Tylenol; as needed oxycodone in a graduated scale; as needed morphine IV ordered. Bowel protocol and antiemetics in place. Weightbearing on left lower extremity as tolerated. PT and OT to work with patient. Hypertension Blood pressure is not within goal Home blood pressure medication continued. As needed hydralazine ordered. Trend blood pressure and adjust blood pressure medications. History of lower bilateral extremity edema Home Lasix continued Diabetes mellitus Patient with mild hyperglycemia on presentation Home basal insulin adjusted Accu-Chek QA CHS with correction scale insulin ordered. Morbid obesity BMI of 45.8 kg/m?. Complicates care. Lifestyle modification recommended. History of DVT/PE/aortic stenosis Eliquis continued Charges/Coding Visit Charges OBSV E&M: 98374 Initial observation care L3
[2021-03-22 21:11] VITALS: BP 160/75; PULSE 83; RESP 14; TEMP 36.8; O2SAT 99
[2021-03-22 21:41] VITALS: BP 138/77; PULSE 81; RESP 18; TEMP 36.5; O2SAT 92
[2021-03-22 21:43] VITALS: BMI 45.8
[2021-03-22] MEDS: APIXABAN 5 MG TABLET PO (22:45)
[2021-03-22 22:51] LABS: Bedside Glucose 123 mg/dL (70-110)
[2021-03-22] MEDS: oxyCODONE 5 MG Tablet PO (22:54)
[2021-03-22 23:47] LABS: Mucous, Urine 0 SEEN /hpf (<or=2+); Red Blood Cells-Urine 0 SEEN /hpf (0-5); Squamous Epithelial Cells - UA 0 SEEN /hpf (5-10)
[2021-03-22 23:50] LABS: Color, Urine Yellow (Yellow); Glucose, Dipstick 1000 mg/dl (Normal); Ketone-Dipstick Negative (Negative); Leukocyte Esterase-Dipstick 25 /ul (Negative); Nitrite-Dipstick Negative (Negative); Occult Blood-Urine 10 /ul (Negative); Protein-Dipstick 15 mg/dl (Negative); Urine Bilirubin Dipstick Negative (Negative); Urine Clarity Clear (Clear); Urine Urobilinogen Normal (Normal)
[2021-03-23 00:13] LABS: Bacteria RARE /hpf (None Seen); White Blood Cells 0-5 SEEN /hpf (0-5)
[2021-03-23 02:50] VITALS: BP 153/90; PULSE 88; RESP 18; TEMP 36.4; O2SAT 94
[2021-03-23] MEDS: FOSFOMYCIN TROMETHAMINE 3 GM PACKET PO (02:53)
[2021-03-23] MEDS: oxyCODONE 5 MG Tablet 10 MG PO ×2 (02:53→06:45)
[2021-03-23 03:30] VITALS: O2SAT 96
[2021-03-23 05:33] LABS: Vitamin D,25 Hydroxy 39.9 ng/mL
[2021-03-23] MEDS: Pregabalin 75 MG Capsule 150 MG PO ×2 (06:46→13:11)
[2021-03-23 06:56] LABS: Bedside Glucose 122 mg/dL (70-110)
[2021-03-23] MEDS: Ipratropium/Albuterol Sulfate 3 ML AMPUL.NEB INHALATION (07:18)
[2021-03-23] MEDS: Budesonide Respules 0.5 MG/2 ML AMPUL.NEB. INHALATION (07:18)
[2021-03-23 07:21] VITALS: PULSE 87; RESP 18; O2SAT 94
[2021-03-23] MEDS: Docusate Sodium 100 MG Capsule PO (09:51)
[2021-03-23] MEDS: Furosemide 20 MG Tablet PO ×2 (09:52→16:48)
[2021-03-23] MEDS: Pantoprazole Sodium 40 MG Tablet PO (09:52)
[2021-03-23] MEDS: FLUoxetine 20 MG Capsule 40 MG PO (09:52)
[2021-03-23] MEDS: Montelukast 10 MG Tablet PO (09:53)
[2021-03-23] MEDS: Potassium Chloride Oral Tablet 10 MEQ PO ×2 (09:53→16:48)
[2021-03-23] MEDS: Empagliflozin 25 MG Tablet PO (09:54)
[2021-03-23] MEDS: Multivitamins,Ther W-Minerals Tablet 1 TABLET PO (09:54)
[2021-03-23] MEDS: Nystatin Powder 15gm Bottle 1 APPLIC TOPICAL (09:55)
[2021-03-23] MEDS: APIXABAN 5 MG TABLET PO (09:55)
[2021-03-23 09:59] VITALS: BP 139/79; PULSE 91; RESP 20; TEMP 36.7; O2SAT 96
[2021-03-23] MEDS: 0.9% Saline Lock 10 ML Syringe IV ×2 (10:26→10:46)
[2021-03-23] MEDS: Morphine 4 MG/ML Syringe IV (10:27)
[2021-03-23] MEDS: tiZANidine HCl 2 MG Tablet 4 MG PO (10:45)
[2021-03-23] MEDS: Ondansetron 4 MG/2 ML Vial IV (10:46)
[2021-03-23] MEDS: Acetaminophen 325 MG Tablet 650 MG PO (10:46)
[2021-03-23] MEDS: Lisinopril 20 MG Tablet PO (13:12)
[2021-03-23] MEDS: Insulin Lispro 100 UNIT/ML INSULN.PEN SC (13:19)
[2021-03-23 13:31] LABS: Bedside Glucose 218 mg/dL (70-110)
--- NOTE | 2021-03-23 13:43 | PCM.DC ---
Discharge Instructions Diet Discharge Diet: No restrictions Activity Discharge Activity: Return to Normal Activity Weight Bearing Status: Weight bearing as tolerated Follow Up Care Please Follow Up With: Primary care provider When: Within the next two weeks. Test Results: Test results from this visit will be discussed in further detail at your follow-up appointment, if applicable. Discharge Plan Admission Admit Date/Time: 03/22/21 21:06 Primary Reason for Your Visit: Fall Attending Provider: Smith Reed Primary Care Provider: Ophelia Soria Discharge Orders/Prescriptions Prescriptions: Continued pregabalin [Lyrica] 100 mg capsule 150 mg PO TID RF: 0 moexipril 15 mg tablet 15 mg PO 1200 RF: 0 ergocalciferol (vitamin D2) 50,000 unit capsule 50,000 unit PO WE RF: 0 trazodone 50 mg tablet 50 mg PO QHS RF: 0 albuterol sulfate 2.5 mg /3 mL (0.083 %) solution for nebulization 2.5 mg INHALATION Q2H PRN PRN (Reason: dyspnea, wheezing) Qty: 180 RF: 6 tiotropium bromide 18 mcg capsule, w/inhalation device 18 mcg INHALATION DAILY Qty: 1 RF: 6 albuterol sulfate 90 mcg/actuation HFA aerosol inhaler 2 inh INHALATION Q4H PRN PRN (Reason: Sob &/Or Wheezing) Qty: 18 RF: 6 montelukast 10 mg tablet 10 mg PO DAILY Qty: 30 RF: 6 alendronate 70 mg tablet 70 mg PO WE RF: 0 pitavastatin calcium 4 mg tablet 4 mg PO QHS RF: 0 desoximetasone 0.05 % cream 1 applic TOPICAL PRN PRN (Reason: Itching) RF: 0 ondansetron 4 mg tablet,disintegrating 4 mg PO Q8H RF: 0 nystatin 100,000 unit/gram powder 1 applic TOPICAL BID RF: 0 fluoxetine 20 MG capsule 40 mg PO DAILY RF: 0 aspirin 81 MG tablet,delayed release (DR/EC) 81 mg PO QHS RF: 0 docusate sodium 100 MG capsule 100 mg PO BID RF: 0 kycvaqpt-imb-zvmv-FA-lutein 1 EACH tablet 1 ea PO DAILY RF: 0 omeprazole 40 MG capsule 40 mg PO DAILY RF: 0 potassium chloride 10 MEQ tablet 10 meq PO BID RF: 0 Nu-Z2-htr-xsgx-foq-vgtm-boron 1 EACH tablet,chewable 1 ea PO DAILY RF: 0 fenofibrate nanocrystallized 145 MG tablet 72.5 mg PO QHS RF: 0 insulin degludec 100 UNIT/ML solution 50 unit SQ BID RF: 0 dapagliflozin 10 MG tablet 10 mg PO DAILY RF: 0 semaglutide 1 MG/0.75 ML pen injector 1 mg SQ TH RF: 0 hydrocodone-acetaminophen 5-325 mg Tablet 1 tab PO Q6H PRN (Reason: Pain) RF: 0 tizanidine 4 mg Capsule 4 mg PO Q8H PRN (Reason: muscle relaxer) RF: 0 Eliquis 5 mg Tablet 5 mg PO BID RF: 0 furosemide 40 MG tablet 20 mg PO BIDCM RF: 0 ipratropium-albuterol 0.5 mg-3 mg(2.5 mg base)/3 mL solution for nebulization 3 ml INHALATION BID RF: 0 budesonide-formoterol 160-4.5 mcg/actuation HFA aerosol inhaler 2 puff INHALATION BID RF: 0 beclomethasone dipropionate 80 mcg/actuation HFA aerosol breath activated 1 inh inhalation BID RF: 0 epinephrine 0.3 mg/0.3 mL auto-injector 0.3 mg IM X1 PRN (Reason: Anaphylaxis) Qty: 1 RF: 0 Referrals / Follow Up: Ophelia Soria DO [Primary Care Provider] - Disposition Disposition (needs filled in before D/C Order can be placed): Home, self care
--- NOTE | 2021-03-23 13:45 | CASEMGMT ---
RN CM in to pt room to discuss therapy options. Pt states she receives OT services through [facility]. She states she does not have transportation to go to outpt therapy. Pt states she would be open to going to [facility] if there is a bed available. She would not go to any other facility. Spoke with [facility], [facility] does not accept her insurance. Pt is agreeable to go home with SN, PT and OT on dc. TC to [facility], spoke with Karen. She states they are able to add SN and PT. Referral info faxed at this time. Pt is aware she cannot go to [facility]. She denies further concerns or questions at this time. aware of all of the above.
--- NOTE | 2021-03-23 13:54 | DS.PCM_ITS ---
Documented by User: Wilder CARSON 03/23/21 14:05 Providers Date of Admission: 03/22/21 Primary Care Physician: Dr. Ophelia Soria DO Reason For Visit: FALL WITH INTRACTABLE LEFT LOWER EXTREMITY PAIN Diagnosis Discharge Diagnosis (1) Fall: Status: Acute Code(s): W19.XXXA - Unspecified fall, initial encounter Qualifiers: Encounter type: initial encounter Qualified Code(s): W19.XXXA - Unspecified fall, initial encounter (2) Essential hypertension: Status: Chronic Code(s): I10 - Essential (primary) hypertension (3) Contusion of hip, left: Status: Acute Code(s): S70.02XA - Contusion of left hip, initial encounter (4) Morbid (severe) obesity due to excess calories: Status: Acute Code(s): E66.01 - Morbid (severe) obesity due to excess calories Medications at Discharge Home Medications fluoxetine 40 mg PO DAILY 01/26/14 aspirin 81 mg PO QHS 01/06/16 docusate sodium 100 mg PO BID 01/06/16 muomptrr-lib-imlc-FA-lutein 1 ea PO DAILY 01/06/16 omeprazole 40 mg PO DAILY 01/06/16 potassium chloride 10 meq PO BID 01/06/16 Do-V3-lov-glpn-gww-chtr-boron 1 ea PO DAILY 05/27/16 fenofibrate nanocrystallized 72.5 mg PO QHS 04/26/19 ergocalciferol (vitamin D2) 1,250 mcg (50,000 unit) capsule 50,000 unit PO WE 08/09/19 moexipril 15 mg tablet 15 mg PO 1200 08/09/19 trazodone 50 mg tablet 50 mg PO QHS 08/09/19 dapagliflozin 10 mg PO DAILY 11/22/19 insulin degludec 50 unit SQ BID 11/22/19 semaglutide 1 mg SQ TH 11/22/19 epinephrine 0.3 mg/0.3 mL injection, auto-injector 0.3 mg IM X1 PRN #1 ea 01/18/20 albuterol sulfate 2.5 mg INHALATION Q2H PRN PRN #180 ml 04/24/20 albuterol sulfate 90 mcg/actuation aerosol inhaler 2 inh INHALATION Q4H PRN PRN #18 g 07/13/20 tiotropium bromide 18 mcg capsule with inhalation device 18 mcg INHALATION DAILY #1 inh 04/24/20 pregabalin 100 mg capsule 150 mg PO TID cap 07/21/20 montelukast 10 mg tablet 10 mg PO DAILY #30 tab 12/07/20 alendronate 70 mg tablet 70 mg PO WE tab 12/21/20 desoximetasone 0.05 % topical cream 1 applic TOPICAL PRN PRN g 12/21/20 nystatin 100,000 unit/gram topical powder 1 applic TOPICAL BID 12/21/20 ondansetron 4 mg disintegrating tablet 4 mg PO Q8H 12/21/20 pitavastatin calcium 4 mg tablet 4 mg PO QHS tab 12/21/20 Eliquis 5 mg PO BID 03/22/21 beclomethasone dipropionate 1 inh INHALATION BID 03/22/21 budesonide-formoterol 2 puff INHALATION BID 03/22/21 furosemide 20 mg PO BIDCM 03/22/21 hydrocodone-acetaminophen 1 tab PO Q6H PRN 03/22/21 ipratropium-albuterol 3 ml INHALATION BID 03/22/21 tizanidine 4 mg PO Q8H PRN 03/22/21 Hospital Course Summary of Care Provided Minutes Spent on Discharge: 35 Hospital Course: See subjective for patient presentation. Patient is a 60-year-old female who was admitted to to [facility] on 03/22/2021 after suffering a mechanical fall. Patient to be discharged on 03/23/2021 with continued physical and occupational therapy at home. 1) Mechanical Fall Brain CT demonstrated no acute bleed. Lower extremity CT demonstrated no evidence of an acute fracture. X-ray of the hip and pelvis unremarkable, no evidence of acute fracture. PT/OT recommends additional therapy, patient only agreeable to TCU for SNF care, otherwise would like to return home. Therapy through home health care set up per case management and social work. 2) HTN Stable, continue home Moexipril and Lasix. 3) DM2 Continue home dapagliflozin, insulin, and semaglutide. 4) Hx of DVT/PE/Aortic stenosis Home Eliquis continued. 5) Morbid obesity BMI of 45.8 kg/m?, therapeutic lifestyle changes recommended. Patient seen by Wilder Schroeder PA-C, under the supervision of Dr. Reed. Physical Exam Narrative Patient is a 60-year-old female comfortably resting in bed, alert and orient x3. Patient reports improvement in regards to her pain and numbness from admission, feels that she would improve the best with home therapy. Denies chest pain, shortness of breath, palpitations, sputum production, hemoptysis, fever, chills, N/V/D. Const alert, oriented x3 and no apparent distress HEENT normocephalic, head/scalp atraumatic, hearing grossly normal bilaterally and moist oral mucous membranes Eyes PERRL, EOMs intact bilaterally and conjunctivae normal Neck no lymphadenopathy, supple and no JVD Resp normal respiratory effort, no retractions, no use of accessory muscles and clear to auscultation bilaterally Cardio regular rate, regular rhythm, no murmurs and no JVD GI normal to inspection, nondistended, normoactive bowel sounds, soft to palpation and non-tender Extremity normal to inspection Extremity Narrative: 3/5 strength observed in the lower extremities bilaterally. Skin no rashes or lesions noted, no wounds and skin turgor normal Neuro CN's II-XII intact bilaterally Psych affect normal Weight / BMI Weight Weight: 266 lb 12.149 oz Body Mass Index (BMI) 45.8 ABG / Lab / Microbiology Data Result Diagrams: 03/22/21 17:36 03/22/21 17:36 Laboratory: Laboratory Results - last 24 hr 03/22/21 03/22/21 03/22/21 17:36 17:36 22:44 WBC 7.7 RBC 5.00 Hgb 14.7 Hct 45.3 MCV 90.6 MCH 29.4 MCHC 32.5 RDW Std Deviation 47.0 H RDW Coeff of Carmencita 14.2 Plt Count 253 MPV 11.3 Immature Gran % (Auto) 0.900 Neut % (Auto) 64.3 Lymph % (Auto) 22.9 Cabell % (Auto) 10.1 H Eos % (Auto) 0.9 Baso % (Auto) 0.9 Absolute Neuts (auto) 4.9 Absolute Lymphs (auto) 1.75 Nucleated RBC % 0 Sodium 144 Potassium 3.5 Chloride 108 H Carbon Dioxide 30.0 Anion Gap 6 BUN 10 Creatinine 0.46 L Estim Creat Clear Calc 106.24 Est GFR (MDRD) Af Amer 177 Est GFR (MDRD) Non-Af 147 BUN/Creatinine Ratio 21.7 H Glucose 122 H Calcium 8.5 Vitamin D 25-Hydroxy Urine Color Urine Clarity Urine pH Ur Specific Forsan Urine Protein Urine Glucose (UA) Urine Ketones Urine Occult Blood Urine Nitrite Urine Bilirubin Urine Urobilinogen Ur Leukocyte Esterase Urine RBC Urine WBC Ur Squamous Epith Cells Urine Bacteria Urine Mucus POC Glucose 123 H 03/22/21 03/23/21 03/23/21 23:00 04:50 06:45 WBC RBC Hgb Hct MCV MCH MCHC RDW Std Deviation RDW Coeff of Carmencita Plt Count MPV Immature Gran % (Auto) Neut % (Auto) Lymph % (Auto) Cabell % (Auto) Eos % (Auto) Baso % (Auto) Absolute Neuts (auto) Absolute Lymphs (auto) Nucleated RBC % Sodium Potassium Chloride Carbon Dioxide Anion Gap BUN Creatinine Estim Creat Clear Calc Est GFR (MDRD) Af Amer Est GFR (MDRD) Non-Af BUN/Creatinine Ratio Glucose Calcium Vitamin D 25-Hydroxy 39.9 Urine Color Yellow Urine Clarity Clear Urine pH 6.0 Ur Specific Forsan 1.020 Urine Protein 15 H Urine Glucose (UA) 1000 H Urine Ketones Negative Urine Occult Blood 10 H Urine Nitrite Negative Urine Bilirubin Negative Urine Urobilinogen Normal Ur Leukocyte Esterase 25 H Urine RBC 0 SEEN Urine WBC 0-5 SEEN Ur Squamous Epith Cells 0 SEEN Urine Bacteria RARE Urine Mucus 0 SEEN POC Glucose 122 H 03/23/21 13:10 WBC RBC Hgb Hct MCV MCH MCHC RDW Std Deviation RDW Coeff of Carmencita Plt Count MPV Immature Gran % (Auto) Neut % (Auto) Lymph % (Auto) Cabell % (Auto) Eos % (Auto) Baso % (Auto) Absolute Neuts (auto) Absolute Lymphs (auto) Nucleated RBC % Sodium Potassium Chloride Carbon Dioxide Anion Gap BUN Creatinine Estim Creat Clear Calc Est GFR (MDRD) Af Amer Est GFR (MDRD) Non-Af BUN/Creatinine Ratio Glucose Calcium Vitamin D 25-Hydroxy Urine Color Urine Clarity Urine pH Ur Specific Forsan Urine Protein Urine Glucose (UA) Urine Ketones Urine Occult Blood Urine Nitrite Urine Bilirubin Urine Urobilinogen Ur Leukocyte Esterase Urine RBC Urine WBC Ur Squamous Epith Cells Urine Bacteria Urine Mucus POC Glucose 218 H Radiography Diagnostic Testing: Radiology Impression Brain CT 03/22/21 17:11 IMPRESSION: Mild atrophy and periventricular white matter ischemic change. No evidence for acute bleed Electronically Signed: Joseph Torres MD at 18:31 EDT , Service support , Chest X-Ray 03/22/21 17:48 IMPRESSION: No acute cardiopulmonary pathology Electronically Signed: Joseph Torres MD at 18:54 EDT , Service support , Hip/Pelvis X-Ray 03/22/21 17:48 IMPRESSION: Normal x-ray examination of the pelvis and hip. No definitive evidence for acute hip fracture. However, if clinical suspicion for hip fracture CT recommended Electronically Signed: Joseph Torres MD at 18:57 EDT , Service support , Lower Extremity CT 03/22/21 19:30 IMPRESSION: Mild osteoarthritic changes of left hip. No evidence for acute fracture of left hip or visualized portions of the pelvis Electronically Signed: Joseph Torres MD at 20:26 EDT , Service support , D/C Instructions Discharge Diet: No restrictions Weight Bearing Status: Weight bearing as tolerated Please Follow Up With: Primary care provider When: Within the next two weeks. Meaningful Use Info Meaningful Use Diagnoses (Choose all that apply): None applicable Discharge Plan Admission Admit Date/Time: 03/22/21 21:06 Primary Reason for Your Visit: Fall Attending Provider: Smith Reed Primary Care Provider: Ophelia Soria Discharge Orders/Prescriptions Prescriptions: Continued pregabalin [Lyrica] 100 mg capsule 150 mg PO TID RF: 0 moexipril 15 mg tablet 15 mg PO 1200 RF: 0 ergocalciferol (vitamin D2) 50,000 unit capsule 50,000 unit PO WE RF: 0 trazodone 50 mg tablet 50 mg PO QHS RF: 0 albuterol sulfate 2.5 mg /3 mL (0.083 %) solution for nebulization 2.5 mg INHALATION Q2H PRN PRN (Reason: dyspnea, wheezing) Qty: 180 RF: 6 tiotropium bromide 18 mcg capsule, w/inhalation device 18 mcg INHALATION DAILY Qty: 1 RF: 6 albuterol sulfate 90 mcg/actuation HFA aerosol inhaler 2 inh INHALATION Q4H PRN PRN (Reason: Sob &/Or Wheezing) Qty: 18 RF: 6 montelukast 10 mg tablet 10 mg PO DAILY Qty: 30 RF: 6 alendronate 70 mg tablet 70 mg PO WE RF: 0 pitavastatin calcium 4 mg tablet 4 mg PO QHS RF: 0 desoximetasone 0.05 % cream 1 applic TOPICAL PRN PRN (Reason: Itching) RF: 0 ondansetron 4 mg tablet,disintegrating 4 mg PO Q8H RF: 0 nystatin 100,000 unit/gram powder 1 applic TOPICAL BID RF: 0 fluoxetine 20 MG capsule 40 mg PO DAILY RF: 0 aspirin 81 MG tablet,delayed release (DR/EC) 81 mg PO QHS RF: 0 docusate sodium 100 MG capsule 100 mg PO BID RF: 0 glxakgwd-bbi-ookg-FA-lutein 1 EACH tablet 1 ea PO DAILY RF: 0 omeprazole 40 MG capsule 40 mg PO DAILY RF: 0 potassium chloride 10 MEQ tablet 10 meq PO BID RF: 0 Va-K6-ewv-fuld-bmj-yuka-boron 1 EACH tablet,chewable 1 ea PO DAILY RF: 0 fenofibrate nanocrystallized 145 MG tablet 72.5 mg PO QHS RF: 0 insulin degludec 100 UNIT/ML solution 50 unit SQ BID RF: 0 dapagliflozin 10 MG tablet 10 mg PO DAILY RF: 0 semaglutide 1 MG/0.75 ML pen injector 1 mg SQ TH RF: 0 hydrocodone-acetaminophen 5-325 mg Tablet 1 tab PO Q6H PRN (Reason: Pain) RF: 0 tizanidine 4 mg Capsule 4 mg PO Q8H PRN (Reason: muscle relaxer) RF: 0 Eliquis 5 mg Tablet 5 mg PO BID RF: 0 furosemide 40 MG tablet 20 mg PO BIDCM RF: 0 ipratropium-albuterol 0.5 mg-3 mg(2.5 mg base)/3 mL solution for nebulization 3 ml INHALATION BID RF: 0 budesonide-formoterol 160-4.5 mcg/actuation HFA aerosol inhaler 2 puff INHALATION BID RF: 0 beclomethasone dipropionate 80 mcg/actuation HFA aerosol breath activated 1 inh inhalation BID RF: 0 epinephrine 0.3 mg/0.3 mL auto-injector 0.3 mg IM X1 PRN (Reason: Anaphylaxis) Qty: 1 RF: 0 Referrals / Follow Up: Ophelia Soria DO [Primary Care Provider] - Disposition Disposition (needs filled in before D/C Order can be placed): Home, self care Documented by User: Dr. Smith Reed MD 03/23/21 15:12 Providers Date of Admission: 03/22/21 Reason For Visit: FALL WITH INTRACTABLE LEFT LOWER EXTREMITY PAIN Medications at Discharge Home Medications fluoxetine 40 mg PO DAILY 01/26/14 aspirin 81 mg PO QHS 01/06/16 docusate sodium 100 mg PO BID 01/06/16 bhoelbub-ssk-tgod-FA-lutein 1 ea PO DAILY 01/06/16 omeprazole 40 mg PO DAILY 01/06/16 potassium chloride 10 meq PO BID 01/06/16 Ob-I1-iai-lmwk-pfj-igth-boron 1 ea PO DAILY 05/27/16 fenofibrate nanocrystallized 72.5 mg PO QHS 04/26/19 ergocalciferol (vitamin D2) 1,250 mcg (50,000 unit) capsule 50,000 unit PO WE 08/09/19 moexipril 15 mg tablet 15 mg PO 1200 08/09/19 trazodone 50 mg tablet 50 mg PO QHS 08/09/19 dapagliflozin 10 mg PO DAILY 11/22/19 insulin degludec 50 unit SQ BID 11/22/19 semaglutide 1 mg SQ TH 11/22/19 epinephrine 0.3 mg/0.3 mL injection, auto-injector 0.3 mg IM X1 PRN #1 ea 01/18/20 albuterol sulfate 2.5 mg INHALATION Q2H PRN PRN #180 ml 04/24/20 albuterol sulfate 90 mcg/actuation aerosol inhaler 2 inh INHALATION Q4H PRN PRN #18 g 04/24/20 tiotropium bromide 18 mcg capsule with inhalation device 18 mcg INHALATION DAILY #1 inh 04/24/20 pregabalin 100 mg capsule 150 mg PO TID cap 07/21/20 montelukast 10 mg tablet 10 mg PO DAILY #30 tab 12/07/20 alendronate 70 mg tablet 70 mg PO WE tab 12/21/20 desoximetasone 0.05 % topical cream 1 applic TOPICAL PRN PRN g 12/21/20 nystatin 100,000 unit/gram topical powder 1 applic TOPICAL BID 12/21/20 ondansetron 4 mg disintegrating tablet 4 mg PO Q8H 12/21/20 pitavastatin calcium 4 mg tablet 4 mg PO QHS tab 12/21/20 Eliquis 5 mg PO BID 03/22/21 beclomethasone dipropionate 1 inh INHALATION BID 03/22/21 budesonide-formoterol 2 puff INHALATION BID 03/22/21 furosemide 20 mg PO BIDCM 03/22/21 hydrocodone-acetaminophen 1 tab PO Q6H PRN 03/22/21 ipratropium-albuterol 3 ml INHALATION BID 03/22/21 tizanidine 4 mg PO Q8H PRN 03/22/21 ABG / Lab / Microbiology Data Result Diagrams: 03/22/21 17:36 03/22/21 17:36 Discharge Plan Admission Admit Date/Time: 03/22/21 21:06 Primary Reason for Your Visit: Fall Attending Provider: Smith Reed Primary Care Provider: Ophelia Soria Discharge Orders/Prescriptions Prescriptions: Continued pregabalin [Lyrica] 100 mg capsule 150 mg PO TID RF: 0 moexipril 15 mg tablet 15 mg PO 1200 RF: 0 ergocalciferol (vitamin D2) 50,000 unit capsule 50,000 unit PO WE RF: 0 trazodone 50 mg tablet 50 mg PO QHS RF: 0 albuterol sulfate 2.5 mg /3 mL (0.083 %) solution for nebulization 2.5 mg INHALATION Q2H PRN PRN (Reason: dyspnea, wheezing) Qty: 180 RF: 6 tiotropium bromide 18 mcg capsule, w/inhalation device 18 mcg INHALATION DAILY Qty: 1 RF: 6 albuterol sulfate 90 mcg/actuation HFA aerosol inhaler 2 inh INHALATION Q4H PRN PRN (Reason: Sob &/Or Wheezing) Qty: 18 RF: 6 montelukast 10 mg tablet 10 mg PO DAILY Qty: 30 RF: 6 alendronate 70 mg tablet 70 mg PO WE RF: 0 pitavastatin calcium 4 mg tablet 4 mg PO QHS RF: 0 desoximetasone 0.05 % cream 1 applic TOPICAL PRN PRN (Reason: Itching) RF: 0 ondansetron 4 mg tablet,disintegrating 4 mg PO Q8H RF: 0 nystatin 100,000 unit/gram powder 1 applic TOPICAL BID RF: 0 fluoxetine 20 MG capsule 40 mg PO DAILY RF: 0 aspirin 81 MG tablet,delayed release (DR/EC) 81 mg PO QHS RF: 0 docusate sodium 100 MG capsule 100 mg PO BID RF: 0 awqmmdek-amd-rzmm-FA-lutein 1 EACH tablet 1 ea PO DAILY RF: 0 omeprazole 40 MG capsule 40 mg PO DAILY RF: 0 potassium chloride 10 MEQ tablet 10 meq PO BID RF: 0 Op-G8-ndw-gjda-tuw-bypv-boron 1 EACH tablet,chewable 1 ea PO DAILY RF: 0 fenofibrate nanocrystallized 145 MG tablet 72.5 mg PO QHS RF: 0 insulin degludec 100 UNIT/ML solution 50 unit SQ BID RF: 0 dapagliflozin 10 MG tablet 10 mg PO DAILY RF: 0 semaglutide 1 MG/0.75 ML pen injector 1 mg SQ TH RF: 0 hydrocodone-acetaminophen 5-325 mg Tablet 1 tab PO Q6H PRN (Reason: Pain) RF: 0 tizanidine 4 mg Capsule 4 mg PO Q8H PRN (Reason: muscle relaxer) RF: 0 Eliquis 5 mg Tablet 5 mg PO BID RF: 0 furosemide 40 MG tablet 20 mg PO BIDCM RF: 0 ipratropium-albuterol 0.5 mg-3 mg(2.5 mg base)/3 mL solution for nebulization 3 ml INHALATION BID RF: 0 budesonide-formoterol 160-4.5 mcg/actuation HFA aerosol inhaler 2 puff INHALATION BID RF: 0 beclomethasone dipropionate 80 mcg/actuation HFA aerosol breath activated 1 inh inhalation BID RF: 0 epinephrine 0.3 mg/0.3 mL auto-injector 0.3 mg IM X1 PRN (Reason: Anaphylaxis) Qty: 1 RF: 0 Referrals / Follow Up: Ophelia Soria DO [Primary Care Provider] - Disposition Disposition (needs filled in before D/C Order can be placed): Home, self care Charges/Coding Addendum Addendum: Dr. Reed: I personally reviewed the chart and examined the patient, and agree with the above findings. 60-year-old female had a mechanical fall at yesterday and landed on her left side specifically her left hip. She had difficulty ambulating and therefore presented to the hospital. She does not have midline spine pain and does not have any saddle anesthesia or incontinence of bowel or bladder. She does have pain that goes down her back to leg originating from pain in her glued on the left. She was able to move her leg completely when she went slowly and she was able to bear weight on her leg today, on admission hip x-ray was negative for any fracture however due to the pain she had a CT scan of her left lower extremity which was also negative for fracture. She states that the pain has improved a little bit and the initial numbness that she had yesterday after the fall has almost completely resolved. She stated that the only custodial facility she would like to go to be the transitional care unit however they did not take her insurance therefore she would prefer to go home today. I discussed with her the need for physical therapy as an outpatient and that I would not prescribe narcotics however she can take Tylenol for her pain. She is already on Lyrica which she can continue. Visit Charges OBSV E&M: [id number] Observation care discharge
--- NOTE | 2021-03-23 13:58 | CASEMGMT ---
Social Work Note SW reviewed chart, pt with CM Mely Davila. SW placed a call to Mely Davila, she is not pt's CM anymore. Pt has CM Marlin Cuellar. SW placed a call to Marlin Cuellar and left message regarding pt's admission to [facility] and discharge home today. LUANNE faxed discharge paperwork to Marlin Cuellar. Livier Hammond DIRECTOR OF OCCUPATIONAL HEALTH, [employer]
[2021-03-23 16:59] VITALS: BP 125/75; PULSE 74; RESP 20; TEMP 36.4; O2SAT 94
[2021-03-23 18:31] LABS: Bedside Glucose 131 mg/dL (70-110)
== END 2021-03-23 18:27 | disposition home or self-care (01) ==
LOC: ED 21:05 → MS3 21:13
PROVIDERS: Admitting Provider Hospitalist; Emergency Provider Emergency Medicine; PCP Internal Medicine; Visit Provider Family Medicine
DX: S70.02XA Contusion of left hip, initial encounter (principal); W19.XXXA Unspecified fall, initial encounter; Y93.89 Activity, other specified; Y92.89 Other specified places as the place of occurrence of the external cause; N30.00 Acute cystitis without hematuria; E66.01 Morbid (severe) obesity due to excess calories; E11.65 Type 2 diabetes mellitus with hyperglycemia; I11.0 Hypertensive heart disease with heart failure; I25.10 Atherosclerotic heart disease of native coronary artery without angina pectoris; I50.30 Unspecified diastolic (congestive) heart failure; J44.9 Chronic obstructive pulmonary disease, unspecified; K21.9 Gastro-esophageal reflux disease without esophagitis; G47.33 Obstructive sleep apnea (adult) (pediatric); Z86.711 Personal history of pulmonary embolism; Z79.01 Long term (current) use of anticoagulants; Z86.718 Personal history of other venous thrombosis and embolism; Z79.82 Long term (current) use of aspirin; Z79.899 Other long term (current) drug therapy; Z79.4 Long term (current) use of insulin; Z68.42 Body mass index [BMI] 45.0-49.9, adult
CPT/HCPCS: 36415; 70450; 71045; 73502; 73700; 80048; 81001; 82306; 82962; 85025; 94640; 96374; 96375; 96376; 97162; 97166; 99218; 99284; A4216; G0378; J2405

== ENCOUNTER → 2021-04-05 12:33 | Outpatient (CLI) | payer MEDICARE, MEDICAID, SELFPAY ==
[2021-03-22 21:43] VITALS: BMI 45.8
--- NOTE | 2021-04-05 13:00 | MRI_ITS ---
STUDY: MRI LUMBAR SPINE WITHOUT CONTRAST REASON FOR EXAM: Female, 60 years old. Back trauma -- Abnormal neuro exam, abn. CT or Xray TECHNIQUE: Standardized fat and water weighted pulse sequences were obtained in the sagittal and axial planes. COMPARISON: 03/29/2020 FINDINGS: T12-L1: Normal endplates. Normal disc height, hydration and morphology. Normal bilateral facet joints. Normal central canal and bilateral lateral recesses. Normal bilateral intervertebral neural foramina. Normal lumbar lordosis. There is no substantial scoliosis. Normal conus medullaris that terminates at the L1/L2. L1-2: Mild bilateral facet hypertrophy and ligament flavum hypertrophy. No change in the mild bilobed disc protrusion which produces mild spinal stenosis and mild bilateral neural foraminal stenosis. L2-3: Mild bilateral facet hypertrophy and ligament flavum hypertrophy. No change in the mild bilobed disc protrusion which produces mild spinal stenosis and mild bilateral neural foraminal stenosis. L3-4: Mild bilateral facet hypertrophy and ligament flavum hypertrophy. No change in the mild broad disc protrusion which produces mild spinal stenosis with mild right lateral recess stenosis, moderate left lateral recess stenosis with abutment of the left L4 nerve root and mild bilateral neural foraminal stenosis. L4-5: Mild bilateral facet hypertrophy. Interval posterior decompression with no change in mild broad disc protrusion with spinal stenosis relieved by the posterior decompression and no change in the moderate right neural foraminal stenosis with abutment of the right L4 nerve root laterally. L5-S1: Mild bilateral facet hypertrophy. Interval posterior decompression with no change in the moderate broad disc protrusion with spinal stenosis relieved by the posterior decompression and no change in the mild bilateral neural foraminal stenosis. Normal visualized sacral ala. Normal visualized paraspinous soft tissue structures. MRI/Spine Lumbar (Routine) IMPRESSION: Postsurgical changes and degenerative disc disease as described above. Electronically Signed: Luis Alexis MD at 17:10 EDT Tel , Service support ,
== END ==
PROVIDERS: PCP Internal Medicine; Referring Provider Internal Medicine; Visit Provider Internal Medicine
DX: M54.16 Radiculopathy, lumbar region (principal)
CPT/HCPCS: 72148

== ENCOUNTER 2021-04-05 18:30 | Inpatient (IN) | payer MEDICARE, MEDICAID, SELFPAY ==
[2021-04-05] VITALS (13 sets, daily range): BP systolic 108–123; BP diastolic 67–76; PULSE 81–83; RESP 11–18; TEMP 35.8–36.7; O2SAT 92–95; BMI 46.7; BMI 45.1
--- NOTE | 2021-04-05 18:31 | CT_ITS ---
STUDY: CT BRAIN WITHOUT CONTRAST REASON FOR EXAM: Female, 60 years old. Neuro deficit, acute, stroke suspected RADIATION DOSAGE (If Supplied By Facility): CTDIvol = ( ) mGy, DLP = ( ) mGycm TECHNIQUE: Transaxial CT imaging of the brain was performed without administration of intravenous contrast material. Individualized dose optimization techniques were used for this CT. COMPARISON: 03/22/2021, 07/23/2020, 04/26/2019. FINDINGS: Normal calvarium. Normal size ventricles and extra-axial spaces for the patient''s age. Normal white matter tracts of the cerebral hemispheres. There is no intracranial hemorrhage. There are no findings of an acute ischemic infarction. Atherosclerotic calcification of the cavernous carotid arteries. Normal visualized paranasal sinuses. 1.5 x 1.2 x 2.1 cm mass or lymph node in the right parotid gland, unchanged from 07/23/2020, and mildly increased from 04/26/2019. CT/STROKE Brain/Head without Cont IMPRESSION: 1. No acute findings. 2. Right parotid mass or enlarged nodule. N.B. : The above Results were Read Back by Matilde Myers MD to Dr. David Mendoza, , DO, and understanding confirmed on 04/05/2021 18:48:29 (ET). Electronically Signed: Matilde Myers MD at 18:49 EDT Tel , Service support ,
--- NOTE | 2021-04-05 18:31 | EKG12_ITS ---
Test Reason : NEURO Blood Pressure : / mmHG Vent. Rate : 081 BPM Atrial Rate : 081 BPM P-R Int : 248 ms QRS Dur : 148 ms QT Int : 406 ms P-R-T Axes : 048 -37 030 degrees QTc Int : 471 ms Sinus rhythm with 1st degree A-V block Left axis deviation Right bundle branch block Abnormal ECG Confirmed by DARION MAURICIO, ADITHYA ([id number]), publications editor LEIGHTON STALLWORTH ([id number]) on 04/06/2021 1:04:47 PM Referred By: ANDER Confirmed By:ADITHYA ORLANDO MD
--- NOTE | 2021-04-05 18:38 | CT_ITS ---
We are attempting to reach an attending provider to discuss findings. An addendum with communication details will be sent when the communication is complete. STUDY: CTA HEAD AND NECK WITH CONTRAST REASON FOR EXAM: Female, 60 years old. Neuro deficit, acute, stroke suspected RADIATION DOSAGE (If Supplied By Facility): CTDIvol = ( 18.82 ) mGy, DLP = ( 789.84 ) mGycm TECHNIQUE: CT angiography was performed with a multi-detector CT scanner. Data acquisition was obtained from the skull base through the vertex following intravenous administration of IV 100mL Isovue-370. MIP images were reconstructed from the axial data set. Post-processing of the angiographic images was performed, with multiplanar reformation and 3D reconstruction. Individualized dose optimization techniques were used for this CT. COMPARISON: No relevant priors. FINDINGS: Normal bilateral petrous carotid arteries. Atherosclerotic calcification of the cavernous carotid arteries without stenosis. Normal anterior cerebral arteries bilaterally. Hypoplastic or aplastic anterior communicating artery (ACOM). Normal M1 and M2 segments of the middle cerebral arteries, with normal M1 bifurcations. There is non-visualization of the right posterior communicating artery (PCOM). There is non-visualization of the left posterior communicating artery (PCOM). Normal bilateral vertebral arteries. Normal basilar artery with a normal basilar bifurcation. The visualized bilateral superior cerebellar (SCA) arteries are normal. Normal bilateral P1, P2 and visualized P3 segments of the posterior cerebral arteries. There is no demonstrated aneurysm of the [place] of [place]. AORTIC ARCH: Normal visualized aortic arch. Normal origins of the brachiocephalic, left common carotid, and left subclavian arteries. RIGHT CAROTID ARTERIES: Normal right common carotid artery (CCA). Normal right common carotid bulb. Atherosclerotic calcification of the proximal ICA without stenosis. Normal visualized cervical portion of the right internal carotid artery. Normal origin of the right external carotid artery (ECA). LEFT CAROTID ARTERIES: Normal left common carotid artery (CCA). Mild atherosclerotic calcification of the carotid bulb without stenosis. Mild atherosclerotic calcification of the proximal ICA without stenosis. Normal visualized cervical portion of the left internal carotid artery. Normal origin of the left external carotid artery (ECA). VERTEBRAL ARTERIES: Normal bilateral vertebral arteries. CT/STROKE CTA Head AND Neck W/Con IMPRESSION: Normal CTA Head and neck with contrast. Electronically Signed: Matilde Myers MD at 18:57 EDT Tel , Service support ,
--- NOTE | 2021-04-05 18:40 | ED.VIS.STROK ---
HPI History of Present Illness Chief Complaint: Neuro S/Sx Informant: patient Onset/Context/Timing Onset: Today Context: Sudden Onset Timing: Continuous Quality and Location: Positive for Left Facial Droop, Left Face Parasthesia and Left Leg Weakness Onset: Approximately 45 minutes prior to arrival Worsened by: Nothing Relieved by: Nothing Narrative Narrative: Patient presents with left facial weakness, left facial paresthesias, and left leg weakness that began approximately 45 minutes prior to arrival. Patient states she also feels dizzy. Patient admits to a headache. Patient states she feels like she is spinning. Patient denies any visual changes. Patient states that her left leg has not been giving out for the past several days. Patient states she has fallen a couple times for this. Patient states she was recently admitted for this. However tonight the paresthesias on her left side are new. [facility] Medical History Asthma Atherosclerotic heart disease of [place] coronary artery without angina pectoris Back pain with sciatica Bilateral carotid bruits Body mass index 45.0-49.9, adult Carotid artery disease COPD (chronic obstructive pulmonary disease) Diastolic heart failure Essential hypertension GERD (gastroesophageal reflux disease) History of DVT (deep vein thrombosis) History of pulmonary embolism Morbid obesity Nonrheumatic aortic (valve) stenosis CHELSEY treated with BiPAP Personal history of anaphylaxis Type 2 diabetes mellitus Home Medications fluoxetine 40 mg PO DAILY 01/26/14 [History Last Taken 03/22/21] aspirin 81 mg PO QHS 01/06/16 [History Last Taken 03/21/21] docusate sodium 100 mg PO BID 01/06/16 [History Last Taken 03/22/21] dlgqqntu-bka-qxku-FA-lutein 1 ea PO DAILY 01/06/16 [History Last Taken 03/22/21] omeprazole 40 mg PO DAILY 01/06/16 [History Last Taken 03/22/21] potassium chloride 10 meq PO BID 01/06/16 [History Last Taken 03/22/21] Ss-A7-ehk-iuqa-igy-pdye-boron 1 ea PO DAILY 05/27/16 [History Last Taken 03/22/21] fenofibrate nanocrystallized 72.5 mg PO QHS 04/26/19 [History Last Taken 03/21/21] ergocalciferol (vitamin D2) 1,250 mcg (50,000 unit) capsule 50,000 unit PO WE 08/09/19 [History Last Taken 03/21/21] moexipril 15 mg tablet 15 mg PO 1200 08/09/19 [History Last Taken 03/22/21] trazodone 50 mg tablet 50 mg PO QHS 08/09/19 [History Last Taken 03/21/21] dapagliflozin 10 mg PO DAILY 11/22/19 [History Last Taken 03/22/21] insulin degludec 50 unit SQ BID 11/22/19 [History Last Taken 03/22/21] semaglutide 1 mg SQ TH 11/22/19 [History Last Taken 03/15/21] epinephrine 0.3 mg/0.3 mL injection, auto-injector 0.3 mg IM X1 PRN #1 ea 01/18/20 [Rx Last Taken Unknown] albuterol sulfate 2.5 mg INHALATION Q2H PRN PRN #180 ml 04/24/20 [Rx Last Taken 03/22/21] albuterol sulfate 90 mcg/actuation aerosol inhaler 2 inh INHALATION Q4H PRN PRN #18 g 04/24/20 [Rx Last Taken Unknown] tiotropium bromide 18 mcg capsule with inhalation device 18 mcg INHALATION DAILY #1 inh 04/24/20 [Rx Last Taken Unknown] pregabalin 100 mg capsule 150 mg PO TID cap 07/21/20 [History Last Taken 03/22/21] montelukast 10 mg tablet 10 mg PO DAILY #30 tab 12/07/20 [Rx Last Taken 03/22/21] alendronate 70 mg tablet 70 mg PO WE tab 12/21/20 [History Last Taken 03/21/21] desoximetasone 0.05 % topical cream 1 applic TOPICAL PRN PRN g 12/21/20 [History Last Taken Unknown] nystatin 100,000 unit/gram topical powder 1 applic TOPICAL BID 12/21/20 [History Last Taken Unknown] ondansetron 4 mg disintegrating tablet 4 mg PO Q8H PRN 12/21/20 [History Last Taken Unknown] pitavastatin calcium 4 mg tablet 4 mg PO QHS tab 12/21/20 [History Last Taken 03/21/21] Eliquis 5 mg PO BID 03/22/21 [History Last Taken 03/22/21] beclomethasone dipropionate 1 inh INHALATION BID 03/22/21 [History Last Taken 03/22/21] budesonide-formoterol 2 puff INHALATION BID 03/22/21 [History Last Taken 03/22/21] furosemide 20 mg PO BIDCM 03/22/21 [History Last Taken 03/22/21] ipratropium-albuterol 3 ml INHALATION BID 03/22/21 [History Last Taken 03/22/21] tizanidine 4 mg PO Q8H PRN 03/22/21 [History Last Taken Unknown] oxycodone-acetaminophen [Percocet] 1 tab PO Q6H PRN 04/05/21 [History Last Taken Unknown] Allergy/AdvReac Type Severity Reaction Status Date / Time clindamycin Allergy Rash Verified 04/05/21 19:00 erythromycin base Allergy Rash Verified 04/05/21 19:00 [Erythromycin Base] omalizumab [From Xolair] Allergy Chest Verified 04/05/21 19:00 tightness Penicillins Allergy Rash Verified 04/05/21 19:00 sulfamethoxazole Allergy Chest Verified 04/05/21 19:00 [From Bactrim] tightness trimethoprim [From Bactrim] Allergy Chest Verified 04/05/21 19:00 tightness Sulfa (Sulfonamide AdvReac Unknown Unknown Verified 04/05/21 19:00 Antibiotics) Family History Father Heart disease Diabetes CAD (coronary artery disease) Mother CAD (coronary artery disease) CVA (cerebral vascular accident) Diabetes Brother CAD (coronary artery disease) CVA (cerebral vascular accident) Diabetes Unknown Cancer Grandmother CVA (cerebral vascular accident) Diabetes Grandfather CVA (cerebral vascular accident) Grandmother Myocardial infarction Brother Diabetes Sister Diabetes Surgical History H/O lumbosacral spine surgery History of section History of hernia repair History of left heart catheterization (LHC) (~01/19/21) History of neck surgery History of rotator cuff surgery Hx of appendectomy Social History household members: spouse housing: house Smoking Status: Never smoker second hand exposure: No alcohol intake: current alcohol intake frequency: a few times a week substance use type: does not use caffeine: No what type of physical activity do you participate in: none do you feel safe at home: Yes ROS ROS ED Constitutional Constitutional ED: Denies chills or fever(s) Eyes Eyes: Denies blurry vision or change in vision ENT ENT ED: Denies rhinorrhea or sore throat Cardiovascular Cardiovascular: Denies chest pain or palpitations Respiratory/Chest Respiratory/Chest: Denies cough or dyspnea Gastrointestinal Gastrointestinal: Denies nausea or vomiting Genitourinary Genitourinary ED: Denies dysuria or hematuria Musculoskeletal Musculoskeletal: Denies back pain or neck pain Integumentary Denies abscess or rash Neurologic Neurologic: Reports paresthesias and weakness Allergic/Immunologic Allergic/Immunologic ED: Denies mouth swelling or urticaria EXAM Physical Exam Const Vital Signs: 04/05/21 18:32 04/05/21 18:56 04/05/21 18:57 Temperature 96.4 F L 96.4 F L Temperature Source Temporal Temporal Pulse Rate 82 81 Respiratory Rate 11 L 12 Blood Pressure 118/67 118/67 Blood Pressure Mean 84 84 Pulse Ox 94 94 94 Oxygen Delivery Method Nasal Cannula Nasal Cannula Nasal Cannula Oxygen Flow Rate (L/min) 2 2 2 04/05/21 19:02 04/05/21 19:44 04/05/21 20:13 Temperature Temperature Source Pulse Rate 81 82 82 Respiratory Rate 16 18 14 Blood Pressure 120/69 114/68 108/69 Blood Pressure Mean 86 83 82 Pulse Ox 94 94 92 Oxygen Delivery Method Nasal Cannula Room Air Room Air Oxygen Flow Rate (L/min) 2 04/05/21 20:16 04/05/21 20:19 Temperature 98.1 F Temperature Source Temporal Pulse Rate 81 Respiratory Rate 16 Blood Pressure 108/69 108/69 Blood Pressure Mean 82 82 Pulse Ox 92 Oxygen Delivery Method Room Air Oxygen Flow Rate (L/min) Positive well nourished, well developed and obese General Appearance ED: well developed Nutritional Appearance: obese HEENT Reports moist mucous membranes Eyes PERRL and EOMs intact bilaterally Neck supple and no JVD Neuro oriented x3 Neuro Narrative: There is slight decrease sensation to light touch over the left face. There is a mild left facial weakness. Patient was unable to hold her left leg up off of the cot. Patient was able to hold both arms off of the cot for count of 10. Sensorium / Orientation: alert Speech: speech normal Psych mental status grossly normal STROKE Vital Signs/Narrative: Vital Signs Temp Pulse Resp BP Pulse Ox 04/05/21 20:19 108/69 04/05/21 20:16 98.1 F 81 16 108/69 92 04/05/21 20:13 82 14 108/69 92 04/05/21 19:44 82 18 114/68 94 04/05/21 19:02 81 16 120/69 94 04/05/21 18:57 96.4 F L 81 12 118/67 94 04/05/21 18:56 94 04/05/21 18:32 96.4 F L 82 11 L 118/67 94 NIHSS Initial: 1a Level of Consciousness: 0 1b LOC Questions (Score 2 if aphasic/stupor): 0 1c LOC Commands (Only score 1st attempt): 0 2 Best Gaze (If aphasic, use reflexive mvmts.): 0 3 Visual: 0 4 Facial Palsy: 1 5 Motor Arm Right (UN = amputation/fusion): 0 5 Motor Arm Left: 0 6 Motor Leg Right: 0 6 Motor Leg Left: 2 8 Sensory (Aphasia/stupor=0 or 1, coma=2): 1 9 Best Language: 0 10 Dysarthria (mute, coma=2, intubated=UN): 0 11 Extinction and Inattention (only scored if +): 0 Total Score: 4 MDM MDM MDM Narrative Medical decision making narrative: CT scan of the brain was obtained. There is no evidence of acute stroke. CTA of the head and neck was obtained. There is no large vessel occlusion noted. EKG was obtained. On my interpretation, it showed a sinus rhythm with first-degree AV block with a rate of 81. There is left axis deviation. There is a right bundle branch block pattern noted. There are no acute ST or T wave changes. This is unchanged compared to previous EKG dated 12/27/2019. Portable 1 view chest x-ray was obtained. On my interpretation, lung gonzalez are clear. There is normal cardiac silhouette. Bony thorax is normal. There is no acute process noted. Radiologist also interpreted the x-ray and agrees. CBC was within normal limits. Basic metabolic profile shows elevated glucose of 272 but was otherwise within normal limits. PT with INR and PTT were normal. Troponin was normal. Stroke neurologist from [facility] evaluated the patient. Since the patient is on Eliquis and she has been having left leg weakness for the past few days, he states TPA is not indicated. Patient states she was recently admitted for frequent falls. Patient had an outpatient MRI of her lumbar spine earlier today which does show degenerative changes. There is no evidence of cauda equina. Case was discussed with the hospitalist. He will admit the patient for further evaluation. Patient understands and is agreeable with the plan. All questions were answered. Lab Data Attestation: I reviewed the patient's lab results. Labs: Laboratory Results - last 24 hr 04/05/21 04/05/21 04/05/21 18:20 18:20 18:20 WBC 7.5 RBC 4.86 Hgb 14.4 Hct 45.4 MCV 93.4 MCH 29.6 MCHC 31.7 L RDW Std Deviation 49.4 H RDW Coeff of Carmenc[place] 14.4 Plt Count 271 MPV 11.2 Immature Gran % (Auto) 0.500 Neut % (Auto) 69.0 Lymph % (Auto) 21.2 [place] % (Auto) 7.6 Eos % (Auto) 0.9 Baso % (Auto) 0.8 Absolute Neuts (auto) 5.2 Absolute Lymphs (auto) 1.59 Nucleated RBC % 0 PT 13.8 INR 1.1 APTT 29.5 Sodium 139 Potassium 4.4 Chloride 104 Carbon Dioxide 29.0 Anion Gap 6 BUN 11 Creatinine 1.13 H Estim Creat Clear Calc 45.15 Est GFR (MDRD) Af Amer 63 Est GFR (MDRD) Non-Af 52 L BUN/Creatinine Ratio 9.7 L Glucose 272 H Calcium 9.0 Troponin I High Sens 17.1 POC Glucose 04/05/21 18:41 WBC RBC Hgb Hct MCV MCH MCHC RDW Std Deviation RDW Coeff of Carmencita Plt Count MPV Immature Gran % (Auto) Neut % (Auto) Lymph % (Auto) [place] % (Auto) Eos % (Auto) Baso % (Auto) Absolute Neuts (auto) Absolute Lymphs (auto) Nucleated RBC % PT INR APTT Sodium Potassium Chloride Carbon Dioxide Anion Gap BUN Creatinine Estim Creat Clear Calc Est GFR (MDRD) Af Amer Est GFR (MDRD) Non-Af BUN/Creatinine Ratio Glucose Calcium Troponin I High Sens POC Glucose 267 H Radiography Diagnostic Testing: Radiology Impression Brain CT 04/05/21 18:31 IMPRESSION: 1. No acute findings. 2. Right parotid mass or enlarged nodule. N.B. : The above Results were Read Back by Matilde Myers MD to Dr. David Mendoza, , DO, and understanding confirmed on 04/05/2021 18:48:29 (ET). Electronically Signed: Matilde Myers MD at 18:49 EDT Tel , Service support , ADDENDUM: 04/05/21 1856 IMPRESSION: 1. No acute findings. 2. Right parotid mass or enlarged nodule. N.B. : The above Results were Read Back by Matilde Myers MD to Dr. David Mendoza, , DO, and understanding confirmed on 04/05/2021 18:48:29 (ET). Electronically Signed: Matilde Myers MD at 18:49 EDT Tel , Service support , Head/Neck CTA 04/05/21 18:38 IMPRESSION: Normal CTA Head and neck with contrast. Electronically Signed: Matilde Myers MD at 18:57 EDT Tel , Service support , ADDENDUM: 04/05/21 1906 IMPRESSION: Normal CTA Head and neck with contrast. N.B. : The above Results were Read Back by Matilde Myers MD to Dr. David Mendoza, , DO, and understanding confirmed on 04/05/2021 19:00:01 (ET). Electronically Signed: Matilde Myers MD at 18:57 EDT Tel , Service support , Chest X-Ray 04/05/21 19:04 IMPRESSION: No acute findings. Electronically Signed: Matilde Myers MD at 19:59 EDT Tel , Service support , Treatment and Re-Evaluation Vital Sign Attestation:: Vital signs were reviewed prior to admission. They are stable. Stroke Documentation Questions Stroke Team Activated: Yes Reviewed Inclusion/Exclusion criteria: Yes Was Patient considered for Endovascular Intervention?: No IV Alteplase (t-PA) Administered: No No contraindications for IV Alteplase (t-PA) administration.: No (Patient is on Eliquis) Critical Care Time Critical Care Time: Yes Critical care time (excluding procedures): 30-74 minutes (32), Including time spent:, Discussing w/Patient &/or Family/Furnace Erector, Discussing w/Consultants, Arranging Admission or Transfer and Performing Direct Patient Care at Bedside Discharge Plan Dx/Rx/DC Orders Clinical Impression: Stroke Disposition Disposition: Acute Care Hospital [facility]
[2021-04-05 18:43] LABS: Absolute Lymphocyte Count 1.59 X10^3/uL (0.83-4.51); Absolute Neutrophil Count 5.2 X10^3/uL (2.0-7.7); Basophil# 0.06 X10^3/uL; Basophil% 0.8 % (0-1); Eosinophil# 0.07 X10^3/uL; Eosinophils% 0.9 % (0-5); Hematocrit 45.4 % (37-47); Hemoglobin 14.4 g/dL (12.0-15.0); Lymphocyte # 1.59 X10^3/ul (0.83-4.51); Lymphocyte % 21.2 % (19-41); Mean Corp Hgb Conc 31.7 g/dL (32-36); Mean Corpuscular Hgb 29.6 pg (27.0-32.0); Mean Corpuscular Volume 93.4 fL (81-99); Mean Platelet Vol. 11.2 fl (6.2-12.0); Monocyte# 0.57 X10^3/uL; Monocyte% 7.6 % (0-10); NRBC Flagged by Analyzer 0 % (0-5); Neutrophil # 5.18 X10^3/uL (2.7-7.7); Platelet Count 271 K/mm3 (150-450); RBC Distribution Width CV 14.4 % (11.6-14.6); RBC Distribution Width SD 49.4 fl (35.1-43.9); Red Blood Count 4.86 M/mm3 (4.2-5.4); White Blood Count 7.5 K/mm3 (4.4-11.0)
[2021-04-05 18:51] LABS: International Normalized Ratio 1.1; Prothrombin Time (Protime)PT. 13.8 SECONDS (11.7-14.9)
[2021-04-05 18:54] LABS: Partial Thromboplast Time 29.5 Seconds (24.1-36.2)
--- NOTE | 2021-04-05 19:04 | RAD_ITS ---
STUDY: X-RAY CHEST REASON FOR EXAM: Female, 60 years old. Neuro deficit, acute, stroke suspected TECHNIQUE: Single frontal view of the chest. COMPARISON: 03/22/2021. FINDINGS: The lungs are clear and expanded. There is no demonstrated pleural abnormality. Normal size heart. Normal mediastinum and yulisa. Normal visualized pulmonary arteries. Normal visualized aortic arch and descending thoracic aorta. Degenerative changes of the right acromioclavicular joint. Soft tissues and bony structures are otherwise unremarkable. RAD/Chest 1 View IMPRESSION: No acute findings. Electronically Signed: Matilde Myers MD at 19:59 EDT Tel , Service support ,
[2021-04-05 19:11] LABS: Anion Gap 6 (5-15); BUN 11 mg/dL (7-18); BUN/Creat Ratio 9.7 RATIO (10-20); Chloride 104 mmol/L (98-107); Creatinine, Serum 1.13 mg/dL (0.55-1.02); EST Glomerular Filtration Rate 52 mL/min (>60); Est Glom Filt Rate - Afr Amer 63 mL/min (>60); Estimated Creatinine Clearance 45.15 ml/min; Glucose 272 mg/dL (74-106); Potassium 4.4 mmol/L (3.5-5.1); Sodium Level 139 mmol/L (136-145); Troponin-I HS 17.1 pg/mL (3.0-53.7)
[2021-04-05 19:21] LABS: Bedside Glucose 267 mg/dL (70-110)
--- NOTE | 2021-04-05 21:49 | HP.PCM.HOS_ITS ---
[facility] - General General Date of Admission: 04/05/21 Date of Service: 04/05/21 Chief Complaint: left sided weakness HPI Narrative NATHALIE HERMAN, is a 60 F who presents presents with left-sided weakness. Patient has been having some weakness on her left side for some time and had an MRI of her low back today given the fact that she has had a history of a L5 cyst that affected her right side. That MRI was negative. Patient was having dinner and around 174, patient got up felt dizzy and had worsening left leg weakness but also left arm and facial weakness and paresthesias. She presented to the emergency room and had a head CT and CTA which were negative for acute stroke and was evaluated by the [facility] teleneurology team who recommended further stroke evaluation. Patient has never had anything like this previous. [facility] Medical History Asthma Atherosclerotic heart disease of [place] coronary artery without angina pectoris Back pain with sciatica Bilateral carotid bruits Body mass index 45.0-49.9, adult Carotid artery disease COPD (chronic obstructive pulmonary disease) Diastolic heart failure Essential hypertension GERD (gastroesophageal reflux disease) History of DVT (deep vein thrombosis) History of pulmonary embolism Morbid obesity Nonrheumatic aortic (valve) stenosis CHELSEY treated with BiPAP Personal history of anaphylaxis Type 2 diabetes mellitus Home Medications fluoxetine 40 mg PO DAILY 01/26/14 [History Last Taken 04/05/21] aspirin 81 mg PO QHS 01/06/16 [History Last Taken 04/04/21] docusate sodium 100 mg PO BID 01/06/16 [History Last Taken 04/05/21] htcqmexk-mjc-xkwv-FA-lutein 1 ea PO DAILY 01/06/16 [History Last Taken 04/05/21] omeprazole 40 mg PO DAILY 01/06/16 [History Last Taken 04/05/21] potassium chloride 10 meq PO BID 01/06/16 [History Last Taken 04/05/21] Rx-F2-vzg-zoca-poz-eipp-boron 1 ea PO DAILY 05/27/16 [History Last Taken ] fenofibrate nanocrystallized 72.5 mg PO QHS 04/26/19 [History Last Taken 04/04/21] ergocalciferol (vitamin D2) 1,250 mcg (50,000 unit) capsule 50,000 unit PO WE 08/09/19 [History Last Taken 04/04/21] moexipril 15 mg tablet 15 mg PO BID 08/09/19 [History Last Taken 04/05/21] trazodone 50 mg tablet 50 mg PO QHS 08/09/19 [History Last Taken 04/04/21] dapagliflozin 10 mg PO DAILY 11/22/19 [History Last Taken 04/05/21] insulin degludec 50 unit SQ BID 11/22/19 [History Last Taken 04/05/21] semaglutide 1 mg SQ TH 11/22/19 [History Last Taken 04/04/21] epinephrine 0.3 mg/0.3 mL injection, auto-injector 0.3 mg IM X1 PRN #1 ea 01/18/20 [Rx Last Taken Unknown] albuterol sulfate 2.5 mg INHALATION Q2H PRN PRN #180 ml 04/24/20 [Rx Last Taken 03/22/21] albuterol sulfate 90 mcg/actuation aerosol inhaler 2 inh INHALATION Q4H PRN PRN #18 g 04/24/20 [Rx Last Taken Unknown] tiotropium bromide 18 mcg capsule with inhalation device 18 mcg INHALATION DAILY #1 inh 04/24/20 [Rx Last Taken 04/05/21] montelukast 10 mg tablet 10 mg PO DAILY #30 tab 12/07/20 [Rx Last Taken 04/05/21] alendronate 70 mg tablet 70 mg PO WE tab 12/21/20 [History Last Taken 04/04/21] desoximetasone 0.05 % topical cream 1 applic TOPICAL PRN PRN g 12/21/20 [History Last Taken Unknown] nystatin 100,000 unit/gram topical powder 1 applic TOPICAL BID 12/21/20 [History Last Taken 04/05/21] ondansetron 4 mg disintegrating tablet 4 mg PO Q8H PRN 12/21/20 [History Last Taken Unknown] pitavastatin calcium 4 mg tablet 4 mg PO QHS tab 12/21/20 [History Last Taken 04/04/21] Eliquis 5 mg PO BID 03/22/21 [History Last Taken 04/05/21] beclomethasone dipropionate 1 inh INHALATION BID 03/22/21 [History Last Taken 04/05/21] budesonide-formoterol 2 puff INHALATION BID 03/22/21 [History Last Taken 04/05/21] furosemide 20 mg PO BIDCM 03/22/21 [History Last Taken 04/05/21] ipratropium-albuterol 3 ml INHALATION BID 03/22/21 [History Last Taken 04/05/21] tizanidine 4 mg PO Q8H PRN 03/22/21 [History Last Taken 04/04/21] cyanocobalamin (vitamin B-12) [Vitamin B-12] 100 mcg PO DAILY 04/05/21 [History Last Taken 04/05/21] melatonin 10 mg PO QHS 04/05/21 [History Last Taken 04/04/21] oxycodone-acetaminophen [Percocet] 1 tab PO Q6H PRN 04/05/21 [History Last Taken 04/05/21] pregabalin 150 mg PO BID 04/05/21 [History Last Taken 04/05/21] Allergy/AdvReac Type Severity Reaction Status Date / Time clindamycin Allergy Rash Verified 04/05/21 19:00 erythromycin base Allergy Rash Verified 04/05/21 19:00 [Erythromycin Base] omalizumab [From Xolair] Allergy Chest Verified 04/05/21 19:00 tightness Penicillins Allergy Rash Verified 04/05/21 19:00 sulfamethoxazole Allergy Chest Verified 04/05/21 19:00 [From Bactrim] tightness trimethoprim [From Bactrim] Allergy Chest Verified 04/05/21 19:00 tightness Sulfa (Sulfonamide AdvReac Unknown Unknown Verified 04/05/21 19:00 Antibiotics) Family History Father Heart disease Diabetes CAD (coronary artery disease) Mother CAD (coronary artery disease) CVA (cerebral vascular accident) Diabetes Brother CAD (coronary artery disease) CVA (cerebral vascular accident) Diabetes Unknown Cancer Grandmother CVA (cerebral vascular accident) Diabetes Grandfather CVA (cerebral vascular accident) Grandmother Myocardial infarction Brother Diabetes Sister Diabetes Surgical History H/O lumbosacral spine surgery History of section History of hernia repair History of left heart catheterization (LHC) (~01/19/21) History of neck surgery History of rotator cuff surgery Hx of appendectomy Social History household members: spouse housing: apartment pets and animals: Yes Smoking Status: Never smoker second hand exposure: No alcohol intake: current alcohol intake frequency: a few times a week substance use type: does not use caffeine: No what type of physical activity do you participate in: none do you feel safe at home: Yes ROS ROS Narrative Dizziness has since resolved. Patient was experiencing some room spinning sensation particular when she was getting up. Patient has a partial right rotator cuff tear and is having difficulty raising her arms up on the right side since then. All review of systems were negative except as mentioned above in the history of present illness and the other review of systems. Cardiovascular Cardiovascular: Denies chest pain Respiratory/Chest Respiratory/Chest: Denies cough or productive cough Vital Signs Vital Signs Vital Signs: 04/05/21 18:32 04/05/21 18:56 04/05/21 18:57 Temperature 35.8 C L 35.8 C L Temperature Source Temporal Temporal Pulse Rate 82 81 Respiratory Rate 11 L 12 Blood Pressure 118/67 118/67 Blood Pressure Mean 84 84 Pulse Ox 94 94 94 Oxygen Delivery Method Nasal Cannula Nasal Cannula Nasal Cannula Oxygen Flow Rate (L/min) 2 2 2 04/05/21 19:02 04/05/21 19:44 04/05/21 20:13 Temperature Temperature Source Pulse Rate 81 82 82 Respiratory Rate 16 18 14 Blood Pressure 120/69 114/68 108/69 Blood Pressure Mean 86 83 82 Pulse Ox 94 94 92 Oxygen Delivery Method Nasal Cannula Room Air Room Air Oxygen Flow Rate (L/min) 2 04/05/21 20:16 04/05/21 20:19 Temperature 36.7 C Temperature Source Temporal Pulse Rate 81 Respiratory Rate 16 Blood Pressure 108/69 108/69 Blood Pressure Mean 82 82 Pulse Ox 92 Oxygen Delivery Method Room Air Oxygen Flow Rate (L/min) Weight Weight: 119.1 kg Body Mass Index (BMI) 45.1 Physical Exam Const alert and no apparent distress Constitutional Narrative: Obese. General Appearance: cooperative HEENT normocephalic, hearing grossly normal bilaterally, moist oral mucous membranes and oropharynx normal Eyes EOMs intact bilaterally Eyes Narrative: Pupils narrow. Neck no lymphadenopathy Neck Narrative: Redundant neck tissue Resp normal respiratory effort, no retractions, no use of accessory muscles and clear to auscultation bilaterally Cardio regular rate and regular rhythm Cardio Narrative: 2 out of 6 systolic ejection murmur at the right upper sternal border GI normal to inspection, nondistended, normoactive bowel sounds, non-tender and non-distended Extremity normal to inspection and full ROM Skin Skin Narrative: Vitiligo on her lower extremities. Neuro Neuro Narrative: Muscle strength 5-5 in the bilateral upper extremities as well as right lower extremity. And 3-5 in the left lower extremity. Sensorium / Orientation: awake and alert Psych affect normal Results Lab / Micro Data Result Diagrams: 04/05/21 18:20 04/05/21 18:20 Labs: Laboratory Results - last 24 hr 04/05/21 04/05/21 04/05/21 18:20 18:20 18:20 WBC 7.5 RBC 4.86 Hgb 14.4 Hct 45.4 MCV 93.4 MCH 29.6 MCHC 31.7 L RDW Std Deviation 49.4 H RDW Coeff of Carmencita 14.4 Plt Count 271 MPV 11.2 Immature Gran % (Auto) 0.500 Neut % (Auto) 69.0 Lymph % (Auto) 21.2 [place] % (Auto) 7.6 Eos % (Auto) 0.9 Baso % (Auto) 0.8 Absolute Neuts (auto) 5.2 Absolute Lymphs (auto) 1.59 Nucleated RBC % 0 PT 13.8 INR 1.1 APTT 29.5 Sodium 139 Potassium 4.4 Chloride 104 Carbon Dioxide 29.0 Anion Gap 6 BUN 11 Creatinine 1.13 H Estim Creat Clear Calc 45.15 Est GFR (MDRD) Af Amer 63 Est GFR (MDRD) Non-Af 52 L BUN/Creatinine Ratio 9.7 L Glucose 272 H Calcium 9.0 Troponin I High Sens 17.1 POC Glucose 04/05/21 18:41 WBC RBC Hgb Hct MCV MCH MCHC RDW Std Deviation RDW Coeff of Carmencita Plt Count MPV Immature Gran % (Auto) Neut % (Auto) Lymph % (Auto) [place] % (Auto) Eos % (Auto) Baso % (Auto) Absolute Neuts (auto) Absolute Lymphs (auto) Nucleated RBC % PT INR APTT Sodium Potassium Chloride Carbon Dioxide Anion Gap BUN Creatinine Estim Creat Clear Calc Est GFR (MDRD) Af Amer Est GFR (MDRD) Non-Af BUN/Creatinine Ratio Glucose Calcium Troponin I High Sens POC Glucose 267 H EKG Initial EKG: Attestation: I personally reviewed and interpreted this EKG as follows: Prior EKG tracings: available for review EKG Rhythm Intrepretation: Sinus Rhythm (Right bundle branch block.) Radiology Impression Brain CT 04/05/21 18:31 IMPRESSION: 1. No acute findings. 2. Right parotid mass or enlarged nodule. N.B. : The above Results were Read Back by Matilde Myers MD to Dr. David Mendoza DO, DO, and understanding confirmed on 04/05/2021 18:48:29 (ET). Electronically Signed: Matilde Myers MD at 18:49 EDT Tel , Service support , ADDENDUM: 04/05/21 1856 IMPRESSION: 1. No acute findings. 2. Right parotid mass or enlarged nodule. N.B. : The above Results were Read Back by Matilde Myers MD to Dr. David Mendoza DO, DO, and understanding confirmed on 04/05/2021 18:48:29 (ET). Electronically Signed: Matilde Myers MD at 18:49 EDT Tel , Service support , Head/Neck CTA 04/05/21 18:38 IMPRESSION: Normal CTA Head and neck with contrast. Electronically Signed: Matilde Myers MD at 18:57 EDT Tel , Service support , ADDENDUM: 04/05/21 1906 IMPRESSION: Normal CTA Head and neck with contrast. N.B. : The above Results were Read Back by Matilde Myers MD to Dr. David Mendoza DO, , and understanding confirmed on 04/05/2021 19:00:01 (ET). Electronically Signed: Matilde Myers MD at 18:57 EDT Tel , Service support , Chest X-Ray 04/05/21 19:04 IMPRESSION: No acute findings. Electronically Signed: Matilde Myers MD at 19:59 EDT Tel , Service support , Assessment & Plan Assessment/Plan (1) Stroke: QUALIFIERS: CVA mechanism: unspecified Qualified Code(s): I63.9 - Cerebral infarction, unspecified PLAN: 1. Suspected acute CVA * Patient had sudden onset of left-sided weakness. Patient does have chronic weakness of her left lower extremity that had an MRI of her lumbar spine today that was negative. I cannot appreciate any left upper extremity nor any left facial weakness at this time. Patient was not dizzy prior to this episode some not sure if some of her symptoms were exaggerated initially with the d fadyziness that she was experiencing * Plan: MRI of the brain as well as an echocardiogram check lipid panel. Afterwards consult [facility] teleneurology for further recommendations and instructions. Bedside swallow evaluation. PT, OT and speech therapy evaluation. Patient has a fair performance status at baseline but may be worsened after this recent event and patient may require additional therapy services upon discharge. 2. History of VTE * Anticoagulated on apixaban 3. Aortic stenosis * Stable * Patient is to follow-up at the [facility] for aortic valve replacement on April 19 4. Diabetes mellitus type 2 * Continue with basal insulin. + Scale insulin. 5. VTE prophylaxis: Not indicated as patient is already anticoagulated. 6. Advanced care planning: Discussed with patient. Patient wishes to be full CODE STATUS.
--- NOTE | 2021-04-05 21:58 | ECHOCS_ITS ---
Reason For Study: TIA/CVA Procedure This was a 2D Doppler, Color Flow transthoracic echocardiogram. Contrast injection was performed. Exam performed portable in patient room. Left Ventricle Mild concentric left ventricular hypertrophy. The estimated ejection fraction is EF Calculated 68 %. Right Ventricle Normal right ventricle. Normal systolic function. Atria Normal left atrium. Normal right atrium. Mitral Valve There is moderate mitral annular calcification. Tricuspid Valve Normal tricuspid valve. Aortic Valve Severe restriction of the aortic valve. Severe aortic stenosis. Mild (1+) aortic valve insufficiency. Pulmonic Valve The pulmonic valve is not well visualized. Great Vessels Normal aortic root. Pericardium/Pleural No pericardial effusion. Medication Diluted definity 2ml given slow IV push to enhance endocardial definition. MMode/2D Measurements & Calculations LVIDd: 4.2 cm IVSd: 1.2 cm LVOT diam: 2.0 cm LVIDs: 2.8 cm LVPWd: 1.2 cm RVDd: 3.7 cm FS: 34.1 % LVOT area: 3.3 cm2 Ao root diam: 3.1 cm LAV(MOD-bp): 43.1 ml LVAd ap4: 27.8 cm2 LAV(MOD-bp) Indexed: 19.6 ml/m2 LVLd ap4: 7.8 cm LAV(MOD-sp2): 51.3 ml EDV(MOD-sp4): 81.8 ml LAV(MOD-sp4): 35.8 ml EDV(sp4-el): 84.3 ml LVAs ap4: 13.8 cm2 LVLs ap4: 6.1 cm ESV(MOD-sp4): 26.2 ml ESV(sp4-el): 26.5 ml EF(MOD-sp4): 67.9 % EF(sp4-el): 68.6 % SV(MOD-sp4): 55.6 ml SV(sp4-el): 57.8 ml LA A4 area: 14.7 cm2 LA dimension(2D): 3.3 cm RA A4 area: 11.9 cm2 Time Measurements MV dec time: 0.30 sec Doppler Measurements & Calculations MV E max mark: 110.4 cm/sec Lat Peak E' Mark: 5.7 cm/sec Med Peak E' Mark: 4.7 cm/sec MV A max mark: 177.4 cm/sec E/E' lat: 19.2 E/E' med: 23.4 MV E/A: 0.62 MV V2 max: 192.0 cm/sec MV P1/2t max mark: 153.7 cm/sec Ao V2 max: 464.8 cm/sec MV max P.7 mmHg MV P1/2t: 88.9 msec Ao max P.5 mmHg MV V2 mean: 123.6 cm/sec MV dec slope: 506.5 cm/sec2 Ao V2 mean: 346.0 cm/sec MV mean P.9 mmHg MVA(P1/2t): 2.5 cm2 Ao mean P.0 mmHg MV V2 VTI: 45.3 cm Ao V2 VTI: 100.3 cm MVA(VTI): 2.1 cm2 FELICIANO(I,D): 0.93 cm2 FELICIANO(V,D): 0.85 cm2 LV V1 max: 121.3 cm/sec SV(LVOT): 93.1 ml PA V2 max: 96.6 cm/sec LV V1 max P.9 mmHg LV V1 mean P.7 mmHg LV V1 mean: 91.3 cm/sec LV V1 VTI: 28.6 cm TR max mark: 233.3 cm/sec TR max P.8 mmHg ECHO/Echo Complete W/ Contrast Interpretation Summary The estimated ejection fraction is EF Calculated 68 %. Severe Calcific AV stenosis FELICIANO calculated 0.85 cm2 Mild AI Ordering Physician: David Salmon Referring Physician: Ophelia Soria Performed By: Anjelica Soriano RDCS, RVT
[2021-04-05 22:40] LABS: Bedside Glucose 122 mg/dL (70-110)
[2021-04-05] MEDS: Nystatin Powder 15gm Bottle 1 APPLIC TOPICAL (22:41)
[2021-04-05] MEDS: APIXABAN 5 MG TABLET PO (22:41)
[2021-04-05] MEDS: Lisinopril 20 MG Tablet PO (22:42)
[2021-04-05] MEDS: MELATONIN 10 MG TABLET PO (22:42)
[2021-04-05] MEDS: Docusate Sodium 100 MG Capsule PO (22:42)
[2021-04-05] MEDS: Atorvastatin Calcium 20 MG Tablet PO (22:43)
[2021-04-05] MEDS: traZODone 50 MG Tablet PO (22:43)
[2021-04-05] MEDS: Aspirin E.C. 81 MG Tablet PO (22:43)
[2021-04-05] MEDS: Fenofibrate 145 MG Tablet 72.5 MG PO (22:44)
[2021-04-05] MEDS: Pregabalin 75 MG Capsule 150 MG PO (22:48)
[2021-04-05 23:11] LABS: Troponin-I HS 15.7 pg/mL (3.0-53.7)
[2021-04-05] MEDS: Ipratropium/Albuterol Sulfate 3 ML AMPUL.NEB INHALATION (23:32)
[2021-04-06] VITALS (15 sets, daily range): BP systolic 112–148; BP diastolic 63–83; PULSE 76–99; RESP 12–19; TEMP 36.2–36.8; O2SAT 93–98
--- NOTE | 2021-04-06 06:00 | MRI_ITS ---
STUDY: MRI BRAIN WITHOUT CONTRAST REASON FOR EXAM: Female, 60 years old. INCREASE IN left sided weakness TECHNIQUE: Standardized multiplanar fat and water weighted pulse sequences were obtained. COMPARISON: CT 04/05/2021, MRI 07/24/2020 FINDINGS: There is mild cerebral atrophy with widening of the extra-axial spaces and ventricular dilatation. There are a limited number of small white matter hyperintensities, distributed throughout the deep white matter tracts of the cerebral hemispheres, consistent with mild chronic white matter ischemic changes. There is no evidence for recent intracranial ischemia or other cause of cytotoxic edema on diffusion weighted imaging (DWI). Normal T2* images of the brain without demonstrated susceptibility artifact. There is no demonstrated hemosiderin stain. Normal bilateral basal ganglia. Normal thalami. There is no extra-axial fluid accumulation. Normal flow voids within the major intracranial circulation suggesting patency by spin echo criteria. Normal sella turcica, pituitary gland, infundibular stalk, optic chiasm and hypothalamus. Normal tectal plate and pineal gland. Normal midbrain, martha and medulla. Normal cerebellum. Normal basal cisterns. Normal bilateral temporal bones. Normal bilateral internal auditory canals. There are bilateral ocular lens implants with otherwise normal intraorbital contents. Normal visualized paranasal sinuses. Normal calvarium and skull base. Normal visualized soft tissue structures. Normal visualized upper cervical spine. MRI/Brain without Contrast IMPRESSION: Involutional changes of the brain, as described above. No acute infarct. Electronically Signed: Luis Alexis MD at 10:43 EDT Tel , Service support ,
[2021-04-06 06:46] LABS: Bedside Glucose 137 mg/dL (70-110)
[2021-04-06] MEDS: Ipratropium/Albuterol Sulfate 3 ML AMPUL.NEB INHALATION ×2 (06:58→18:41)
[2021-04-06] MEDS: Budesonide Respules 0.5 MG/2 ML AMPUL.NEB. INHALATION ×2 (06:58→18:41)
[2021-04-06 07:19] LABS: Cholesterol 158 mg/dL (200); High Density Lipoprotein 30 mg/dL; Triglycerides 333 mg/dL; Very Low Density Lipoprotein 67 mg/dL (5-40)
[2021-04-06] MEDS: FLUoxetine 20 MG Capsule 40 MG PO (08:20)
[2021-04-06] MEDS: Potassium Chloride Oral Tablet 10 MEQ PO ×2 (08:20→16:38)
[2021-04-06] MEDS: Nystatin Powder 15gm Bottle 1 APPLIC TOPICAL ×2 (08:20→21:50)
[2021-04-06] MEDS: APIXABAN 5 MG TABLET PO ×2 (08:21→21:51)
[2021-04-06] MEDS: Empagliflozin 25 MG Tablet PO (08:21)
[2021-04-06] MEDS: Furosemide 20 MG Tablet PO ×2 (08:24→16:38)
[2021-04-06] MEDS: Pregabalin 75 MG Capsule 150 MG PO ×2 (08:24→21:51)
[2021-04-06] MEDS: Pantoprazole Sodium 40 MG Tablet PO (08:24)
[2021-04-06] MEDS: Lisinopril 20 MG Tablet PO (08:24)
[2021-04-06] MEDS: Docusate Sodium 100 MG Capsule PO ×2 (08:25→21:51)
--- NOTE | 2021-04-06 11:00 | CASEMGMT ---
Palliative screening tool completed for [facility]. Patient meets criteria for palliative consult, hospitalist notified and agreeable to referral. JOSS FIERRO called and faxed referral to [facility].
--- NOTE | 2021-04-06 11:05 | CASEMGMT ---
JOSS FIERRO Face to Face with patient for initial transition planning/care coordination assessment. RN CM introduced self and role at [facility]. Patient lying in bed, alert and oriented, caregiver at bedside. Patient willing to participate in assessment and is able to answer all questions appropriately. Care providers, pharmacy, and demographics verified. Patient wishes to discharge home with resumption of HHC or to SNF if not able to ambulate. Patient states she has no further needs or concerns at this time. CM to follow for discharge planning needs that may arise. PCP: Yang Specialists: Hu, pulmonology; Timbo, cardiology; Augusto, pain Preferred Pharmacy: [facility] retail Insurance: [employer] Prescription Benefit: yes Living Will/HPOA: yes, Alirio Kelley HPOA LNOK: , daughter Living Arrangements: Patient lives with in a 1st floor apartment with no steps to enter. Patient requires assistance with bathing and dressing but able to toilet self. Transportation: [place] or daughter DME/HHC: Patient states she has shower chair, BSC, grab bars, walker, rollator, wheelchair, bipap with oxygen at 2 lpm through [facility], and nebulizer. Patient is active with waiver program, Marlin Cuellar CM. Patient has aide services through [employer] Mon-Fri 3 hrs per day. Patient is active with [facility] for SN, PT, OT. Patient has previously been to [facility], [facility], and [place] Disposition Plan: TBD by course of treatment and progress with therapy. Livier Hernandez BSN, RN, CM
--- NOTE | 2021-04-06 12:13 | CASEMGMT ---
SW Note SW referral source: [facility] [employer] [facility] Reason for referral: Possible Stroke SW spoke to [facility] and reviewed chart. Patient did not have a stroke so no PHQ9 was completed. Plan: To be determined Lakshmi KING
[2021-04-06 12:26] LABS: Bedside Glucose 155 mg/dL (70-110)
--- NOTE | 2021-04-06 13:41 | PN.HOSP_ITS ---
Documented by User: Wilder CARSON 04/06/21 13:51 Subjective Subjective Patient is a 60-year-old female comfortably resting in bed, alert and orient x3. Patient still endorses some numbness about the left lower extremity, however reports that this is better from yesterday as she can now move the leg on im pulse. Denies chest pain, shortness of breath, palpitations, fever, chills, N/V/D. Objective Data Objective Data Vital Signs: Vital Signs Temp Pulse Resp BP Pulse Ox 98.3 F 86 18 133/75 H 96 04/06/21 08:12 04/06/21 08:12 04/06/21 08:12 04/06/21 08:12 04/06/21 08:12 Oxygen Flow Rate (L/min) 2 Oxygen Delivery Method Nasal Cannula Weight: 262 lb 5.601 oz Body Mass Index (BMI) 45.1 Intake & Output: Intake and Output for Last 24 Hours 04/04/21 04/05/21 04/06/21 23:59 23:59 23:59 Output Total 650 / 650 500 / 500 Balance -650 / -650 -500 / -500 Lab / Micro Data Result Diagrams: 04/05/21 18:20 04/05/21 18:20 Labs: Laboratory Results - last 24 hr 04/05/21 04/05/21 04/05/21 18:20 18:20 18:20 WBC 7.5 RBC 4.86 Hgb 14.4 Hct 45.4 MCV 93.4 MCH 29.6 MCHC 31.7 L RDW Std Deviation 49.4 H RDW Coeff of Carmencita 14.4 Plt Count 271 MPV 11.2 Immature Gran % (Auto) 0.500 Neut % (Auto) 69.0 Lymph % (Auto) 21.2 [place] % (Auto) 7.6 Eos % (Auto) 0.9 Baso % (Auto) 0.8 Absolute Neuts (auto) 5.2 Absolute Lymphs (auto) 1.59 Nucleated RBC % 0 PT 13.8 INR 1.1 APTT 29.5 Sodium 139 Potassium 4.4 Chloride 104 Carbon Dioxide 29.0 Anion Gap 6 BUN 11 Creatinine 1.13 H Estim Creat Clear Calc 45.15 Est GFR (MDRD) Af Amer 63 Est GFR (MDRD) Non-Af 52 L BUN/Creatinine Ratio 9.7 L Glucose 272 H Calcium 9.0 Troponin I High Sens 17.1 Triglycerides Cholesterol LDL Cholesterol VLDL Cholesterol HDL Cholesterol POC Glucose 04/05/21 04/05/21 04/05/21 18:41 22:31 22:37 WBC RBC Hgb Hct MCV MCH MCHC RDW Std Deviation RDW Coeff of Carmencita Plt Count MPV Immature Gran % (Auto) Neut % (Auto) Lymph % (Auto) [place] % (Auto) Eos % (Auto) Baso % (Auto) Absolute Neuts (auto) Absolute Lymphs (auto) Nucleated RBC % PT INR APTT Sodium Potassium Chloride Carbon Dioxide Anion Gap BUN Creatinine Estim Creat Clear Calc Est GFR (MDRD) Af Amer Est GFR (MDRD) Non-Af BUN/Creatinine Ratio Glucose Calcium Troponin I High Sens 15.7 Triglycerides Cholesterol LDL Cholesterol VLDL Cholesterol HDL Cholesterol POC Glucose 267 H 122 H 04/06/21 04/06/21 04/06/21 05:25 06:28 12:17 WBC RBC Hgb Hct MCV MCH MCHC RDW Std Deviation RDW Coeff of Carmencita Plt Count MPV Immature Gran % (Auto) Neut % (Auto) Lymph % (Auto) [place] % (Auto) Eos % (Auto) Baso % (Auto) Absolute Neuts (auto) Absolute Lymphs (auto) Nucleated RBC % PT INR APTT Sodium Potassium Chloride Carbon Dioxide Anion Gap BUN Creatinine Estim Creat Clear Calc Est GFR (MDRD) Af Amer Est GFR (MDRD) Non-Af BUN/Creatinine Ratio Glucose Calcium Troponin I High Sens Triglycerides 333 H Cholesterol 158 LDL Cholesterol 61 VLDL Cholesterol 67 H HDL Cholesterol 30 L POC Glucose 137 H 155 H Radiography Diagnostic Testing: Radiology Impression Brain CT 04/05/21 18:31 IMPRESSION: 1. No acute findings. 2. Right parotid mass or enlarged nodule. N.B. : The above Results were Read Back by Matilde Myers MD to Dr. David Mendoza, DO, DO, and understanding confirmed on 04/05/2021 18:48:29 (ET). Electronically Signed: Matilde Myers MD at 18:49 EDT Tel , Service support , ADDENDUM: 04/05/21 2599 IMPRESSION: 1. No acute findings. 2. Right parotid mass or enlarged nodule. N.B. : The above Results were Read Back by Matilde Myers MD to Dr. David Mendoza, , DO, and understanding confirmed on 04/05/2021 18:48:29 (ET). Electronically Signed: Matilde Myers MD at 18:49 EDT Tel , Service support , Head/Neck CTA 04/05/21 18:38 IMPRESSION: Normal CTA Head and neck with contrast. Electronically Signed: Matilde Myers MD at 18:57 EDT Tel , Service support , ADDENDUM: 04/05/21 1906 IMPRESSION: Normal CTA Head and neck with contrast. N.B. : The above Results were Read Back by Matilde Myers MD to Dr. David Mendoza, , DO, and understanding confirmed on 04/05/2021 19:00:01 (ET). Electronically Signed: Matilde Myers MD at 18:57 EDT Tel , Service support , Chest X-Ray 04/05/21 19:04 IMPRESSION: No acute findings. Electronically Signed: Matilde Myers MD at 19:59 EDT Tel , Service support , Brain MRI 04/06/21 06:00 IMPRESSION: Involutional changes of the brain, as described above. No acute infarct. Electronically Signed: Luis Alexis MD at 10:43 EDT Tel , Service support , Physical Exam Const alert, oriented x3 and no apparent distress HEENT head/scalp atraumatic and moist oral mucous membranes Head and Scalp: normocephalic Eyes EOMs intact bilaterally and conjunctivae normal Neck no lymphadenopathy, supple and no JVD Resp normal respiratory effort, no retractions, no use of accessory muscles and clear to auscultation bilaterally Cardio regular rate, regular rhythm, no murmurs and no JVD GI normal to inspection, nondistended, normoactive bowel sounds, soft to palpation and non-tender Extremity normal to inspection, full ROM and no clubbing, cyanosis or edema Skin no rashes or lesions noted, no wounds, skin turgor normal and no jaundice Neuro Neuro Narrative: Noted weakness and decreased sensitivity about the left lower extremity. Psych affect normal Assessment & Plan Assessment/Plan (1) Type 2 diabetes mellitus: QUALIFIERS: Diabetes mellitus complication status: with unspecified complications Diabetes mellitus care home insulin use: with care home use Qualified Code(s): E11.8 - Type 2 diabetes mellitus with unspecified complications; Z79.4 - half-way (current) use of insulin (2) Hypoxia: (3) Essential hypertension: (4) Carotid artery disease: QUALIFIERS: Carotid artery disease type: stenosis Laterality: bilateral Qualified Code(s): I65.23 - Occlusion and stenosis of bilateral carotid arteries (5) Aortic stenosis: PLAN: Day 2: See subjective for patient presentation. 1) LLE weakness & numbness Brain MRI only demonstrated chronic involutional changes of the brain and demonstrated no acute infarct. Head and neck CT-A were unremarkable. Brain CT demonstrated no acute findings, only showing right parotid mass/enlarged nodule. On my exam patient still endorses mild weakness and numbness of the left lower extremity, however this is improved from yesterday. Left lower extremity strength is a 2/5 on my examination. Plan; PT/OT eval pending, patient is agreeable to SNF at discharge. 2) aortic stenosis Stable, patient follows up with me the [facility] and has scheduled aortic valve replacement on April 19, 2021. 3) DM2 Continue home basal insulin, sliding scale insulin ordered. DVT prophylaxis - on home Xarelto. Patient seen by Wilder Schroeder PA-C, under the supervision of Dr. Ramírez. Documented by User: Dr. Tamika Ramírez MD 04/06/21 14:49 Objective Data Lab / Micro Data Result Diagrams: 04/05/21 18:20 04/05/21 18:20 Charges/Coding Addendum Addendum: This patient was seen in conjunction with ALLI Gunter. I have independently interviewed and examined the patient and reviewed pertinent historical, laboratory, and other data. Please refer to ALLI Gunter's note for his patient's presentation, findings, and recommendations. I have reviewed and his note and concur with his documentation Patient was seen and examined. Complains of weakness in the left lower leg. Associated with tingling and numbness. Physical Exam: Gen: Comfortable, not pale, not jaundiced CVS:HS I +II, regular, no murmurs RESP: Diminished at lung bases GI: BS present and normal, soft, nontender, no palpable organs EXT:No edema ASSESSMENT: 1. Left lower extremity weakness/numbness 2. Aortic stenosis 3. Type II DM Plan: Continue with PT and OT evaluation Neurosurgery evaluation Visit Charges Inpatient E&M: 48079 Subs Hosp L2
--- NOTE | 2021-04-06 14:47 | CASEMGMT ---
JOSS FIERRO NOTE: Call placed to [facility], where pt is active with. Karen made aware pt has been admitted to [facility] and plan is for SNF @ discharge. Coleman ARDON RN CM
--- NOTE | 2021-04-06 15:50 | CASEMGMT ---
LUANNE Note LUANNE Referral: LUANNE met with patient to discuss need for rehab at discharge. Her first preference is [facility] and her 2nd choice is [facility]. She indicated she tried to go home after her last admission but it was unsuccessful at home. LUANNE provided patient with list of SNF in the area that are covered by her insurance provider. LUANNE checked with [employer] social media campaign manager and patient's insurance is not in network with [facility]. LUANNE called [facility] and spoke to java enterprise architect as admission staff was on phone call but will have admission staff call this magnetic tape typewriter operator back. LUANNE received call from Erin at [facility] they have beds. [facility]. LUANNE faxed referral packet to [facility] for review. Plan: Follow up Next week. Lakshmi KING
--- NOTE | 2021-04-06 16:15 | CASEMGMT ---
RN CM NOTE: Referral packet faxed to [facility] at this time. Coleman ARDON RN CM
[2021-04-06 17:06] LABS: Bedside Glucose 133 mg/dL (70-110)
[2021-04-06] MEDS: oxyCODONE 5 MG Tablet GT (21:50)
[2021-04-06] MEDS: Atorvastatin Calcium 20 MG Tablet PO (21:51)
[2021-04-06] MEDS: Fenofibrate 145 MG Tablet 72.5 MG PO (21:51)
[2021-04-06] MEDS: traZODone 50 MG Tablet PO (21:51)
[2021-04-06] MEDS: MELATONIN 10 MG TABLET PO (21:51)
[2021-04-06] MEDS: Aspirin E.C. 81 MG Tablet PO (21:51)
[2021-04-06 22:15] LABS: Bedside Glucose 120 mg/dL (70-110)
[2021-04-07] VITALS (14 sets, daily range): BP systolic 125–158; BP diastolic 60–93; PULSE 83–98; RESP 12–20; TEMP 36.4–37.2; O2SAT 91–98
[2021-04-07 06:50] LABS: Bedside Glucose 120 mg/dL (70-110)
[2021-04-07 07:00] LABS: Anion Gap 8 (5-15); BUN 11 mg/dL (7-18); BUN/Creat Ratio 22.4 RATIO (10-20); Calcium,Total 8.6 mg/dL (8.5-10.1); Chloride 108 mmol/L (98-107); Creatinine, Serum 0.49 mg/dL (0.55-1.02); EST Glomerular Filtration Rate 136 mL/min (>60); Est Glom Filt Rate - Afr Amer 164 mL/min (>60); Estimated Creatinine Clearance 104.11 ml/min; Glucose 126 mg/dL (74-106); Potassium 3.7 mmol/L (3.5-5.1); Sodium Level 143 mmol/L (136-145)
[2021-04-07] MEDS: Ipratropium/Albuterol Sulfate 3 ML AMPUL.NEB INHALATION ×2 (07:26→19:54)
[2021-04-07] MEDS: Budesonide Respules 0.5 MG/2 ML AMPUL.NEB. INHALATION ×2 (07:27→19:54)
[2021-04-07] MEDS: APIXABAN 5 MG TABLET PO ×2 (09:14→21:06)
[2021-04-07] MEDS: Docusate Sodium 100 MG Capsule PO ×2 (09:14→21:07)
[2021-04-07] MEDS: Furosemide 20 MG Tablet PO ×2 (09:15→17:01)
[2021-04-07] MEDS: Potassium Chloride Oral Tablet 10 MEQ PO ×2 (09:15→17:01)
[2021-04-07] MEDS: Pantoprazole Sodium 40 MG Tablet PO (09:15)
[2021-04-07] MEDS: Montelukast 10 MG Tablet PO (09:16)
[2021-04-07] MEDS: dilTIAZem CD 240 MG Capsule PO (09:16)
[2021-04-07] MEDS: Lisinopril 20 MG Tablet PO ×2 (09:16→21:07)
[2021-04-07] MEDS: FLUoxetine 20 MG Capsule 40 MG PO (09:17)
[2021-04-07] MEDS: Empagliflozin 25 MG Tablet PO (09:17)
[2021-04-07] MEDS: Pregabalin 75 MG Capsule 150 MG PO ×2 (09:20→21:06)
[2021-04-07] MEDS: Nystatin Powder 15gm Bottle 1 APPLIC TOPICAL ×2 (09:20→21:08)
[2021-04-07] MEDS: oxyCODONE 5 MG Tablet GT (10:02)
[2021-04-07 12:05] LABS: Bedside Glucose 152 mg/dL (70-110)
[2021-04-07] MEDS: Insulin Lispro 100 UNIT/ML INSULN.PEN SC (12:42)
--- NOTE | 2021-04-07 13:32 | PCM.PN.HOSP ---
Documented by User: Wilder CARSON 04/07/21 13:36 Subjective Subjective Patient is a 60-year-old female comfortably resting in bed, alert and orient x3. Patient reports continued provement of her left lower extremity weakness, although still reports numbness and weakness about the left lower extremity. Denies chest pain, shortness of breath, palpitations, fever, chills, N/V/D. Objective Data Objective Data Vital Signs: Vital Signs Temp Pulse Resp BP Pulse Ox 98.9 F 91 18 157/93 H 95 04/07/21 09:40 04/07/21 09:40 04/07/21 09:40 04/07/21 09:40 04/07/21 09:40 Oxygen Flow Rate (L/min) 2 Oxygen Delivery Method Room Air Weight: 262 lb 9.129 oz Body Mass Index (BMI) 45.1 Intake & Output: Intake and Output for Last 24 Hours 04/05/21 04/06/21 04/07/21 23:59 23:59 23:59 Intake Total 850 / 850 Output Total 650 / 650 1500 / 3000 2950 / 2950 Balance -650 / -650 -1500 / -2700 -2100 / -2100 Lab / Micro Data Result Diagrams: 04/05/21 18:20 04/07/21 05:50 Labs: Laboratory Results - last 24 hr 04/06/21 04/06/21 04/07/21 16:36 21:45 05:50 Sodium 143 Potassium 3.7 Chloride 108 H Carbon Dioxide 27.0 Anion Gap 8 BUN 11 Creatinine 0.49 L Estim Creat Clear Calc 104.11 Est GFR (MDRD) Af Amer 164 Est GFR (MDRD) Non-Af 136 BUN/Creatinine Ratio 22.4 H Glucose 126 H Calcium 8.6 POC Glucose 133 H 120 H 04/07/21 04/07/21 06:32 11:57 Sodium Potassium Chloride Carbon Dioxide Anion Gap BUN Creatinine Estim Creat Clear Calc Est GFR (MDRD) Af Amer Est GFR (MDRD) Non-Af BUN/Creatinine Ratio Glucose Calcium POC Glucose 120 H 152 H Radiography Diagnostic Testing: Radiology Impression Echocardiogram 04/05/21 21:58 Interpretation Summary The estimated ejection fraction is EF Calculated 68 %. Severe Calcific AV stenosis FELICIANO calculated 0.85 cm2 Mild AI Ordering Physician: David Salmon Referring Physician: Ophelia Soria Performed By: Anjelica Soriano, BRANDON, RVT Physical Exam Const alert, oriented x3 and no apparent distress HEENT head/scalp atraumatic and moist oral mucous membranes Head and Scalp: normocephalic Eyes EOMs intact bilaterally and conjunctivae normal Neck no lymphadenopathy, supple and no JVD Resp normal respiratory effort, no retractions and no use of accessory muscles Cardio regular rate, regular rhythm, no murmurs and no JVD GI soft to palpation and non-tender Extremity normal to inspection, full ROM and no clubbing, cyanosis or edema Skin no rashes or lesions noted, no wounds, skin turgor normal and no jaundice Neuro CN's II-XII intact bilaterally Psych affect normal Assessment & Plan Assessment/Plan (1) Type 2 diabetes mellitus: QUALIFIERS: Diabetes mellitus complication status: with unspecified complications Diabetes mellitus long term care pharmacist insulin use: with long term care pharmacist use Qualified Code(s): E11.8 - Type 2 diabetes mellitus with unspecified complications; Z79.4 - long term care pharmacist (current) use of insulin (2) Hypoxia: (3) Essential hypertension: (4) Carotid artery disease: QUALIFIERS: Carotid artery disease type: stenosis Laterality: bilateral Qualified Code(s): I65.23 - Occlusion and stenosis of bilateral carotid arteries (5) Aortic stenosis: PLAN: Day 3: See subjective patient presentation. Discharge planning: Patient has been stepped into the [facility], pending pre-CERT. 1) LLE weakness & numbness Brain MRI only demonstrated chronic involutional changes of the brain and demonstrated no acute infarct. Head and neck CT-A were unremarkable. Brain CT demonstrated no acute findings, only showing right parotid mass/enlarged nodule. On my exam patient still endorses mild weakness and numbness of the left lower extremity, however this is improved from yesterday. Left lower extremity strength is a 2/5 on my examination. Plan; PT/OT eval pending, patient is agreeable to SNF at discharge. 2) aortic stenosis Stable, patient follows up with me the [facility] and has scheduled aortic valve replacement on April 19, 2021. 3) DM2 Continue home basal insulin, sliding scale insulin ordered. DVT prophylaxis - on home Xarelto. Patient seen by Wilder Schroeder PA-C, under the supervision of Dr. Ramírez. Documented by User: Dr. Tamika Ramírez MD 04/07/21 14:48 Objective Data Lab / Micro Data Result Diagrams: 04/05/21 18:20 04/07/21 05:50 Charges/Coding Addendum Addendum: This patient was seen in conjunction with ALLI Gunter. I have independently interviewed and examined the patient and reviewed pertinent historical, laboratory, and other data. Please refer to ALLI Gunter's note for his patient's presentation, findings, and recommendations. I have reviewed and his note and concur with his documentation Patient was seen and examined. Left lower leg weakness is slowly improving. Neurosurgery consulted Physical Exam: Gen: Comfortable, not pale, not jaundiced, morbidly obese CVS:HS I +II, regular, no murmurs RESP: Diminished at lung bases GI: BS present and normal, soft, nontender, no palpable organs EXT:No edema ASSESSMENT: 1. Left lower extremity weakness/numbness 2. Aortic stenosis 3. Type II DM 4. Morbid obesity, BMI 45.1 Plan: Continue with PT and OT evaluation We will await neurosurgery evaluation Discharge planning to SNF ongoing Visit Charges Inpatient E&M: 90861 Subs Hosp L2
--- NOTE | 2021-04-07 15:14 | CON.PCM_ITS ---
Consult ate of Consult: 04/07/21 Mrs. Kelley is a most pleasant young lady 60 years old that has a chief complaint of pain in her left buttocks and goes down her left. She is a bit vague as to exactly where it goes so is hard to tell whether it is an L5 and S1 distribution.. She had low back surgery late last year and include her decompression apparently at L4-5 and L5-S1. She did well and her right leg pain was completely removed after the surgery. Is doing well until 3 weeks ago she was working in her yard her family around her she bent forward to fruit or nut picker a weed and her left leg gave way and she fell. Has been in pain ever since she was able to get up on her own however in a week or so later she had another fall and the pain got worse after that. She states that her pain in her buttocks and leg is no better than it was she also has some low back pain though her buttocks and leg pain is worse than her back pain. Neck surgery she had late last year is the only one that she has had. She denies any bowel or bladder dysfunction. Denies history of unexplained weight loss denies fever sweats or chills. Did relate some of her past medical history to me including the fact that she has had 2 pulmonary emboli and 4 different blood clots in her legs. Is currently on Eliquis for that. Currently also needs a new aortic valve. She also has vein filters in her legs around the bifurcation. When she came in 3 days ago she had symptoms of a stroke including numbness of her face numbness in her left arm and some numbness in the left leg. Clinically however the numbness the droopiness of her face and the left arm numbness went away. The leg leg pain has not gone away. I discussed the case here while I was doing the dictation with her hospitalist Dr. Graham. On examination I found that she does have tension signs on the left and positive straight leg raising. She was a bit dramatic about it however. He had no true weakness of the peroneals or the anterior tib or the EHL she acted as if the simple movement of the dorsiflexion posterior pain. That generally does not happen. But I found no evidence of true weakness. Has absent posterior tibialis and Achilles reflexes bilaterally. She has no long tract signs. Clonus is absent Babinski's are downgoing. I reviewed her MRI scan that was done 3 days ago. It was done without contrast but still was a good study. There was evidence of decompression from the surgery last year and some scar tissue seen on the right side. However there was very little scar tissue on the left side and no evidence of left-sided herniation. It was a generalized protrusion particularly at L5-S1 but it did not show any particular pressure on the S1 nerve root or on the L5 nerve root above. I will discussed the findings with the patient momentarily. She certainly does not need any surgical decompression, not withstanding her high risk for surgery. Think we should entertain the possibility of a caudal epidural steroid injection. I will discuss this with when he returns to the office on Friday. Will have to be off of her Eliquis 24 hours of course can be restarted thereafter. This is the end of consultation on Maryse Kelley. This is Dr. Marcos dictating thank you.
[2021-04-07 16:15] LABS: Bedside Glucose 102 mg/dL (70-110)
[2021-04-07 20:31] LABS: Bedside Glucose 139 mg/dL (70-110)
[2021-04-07] MEDS: traZODone 50 MG Tablet PO (21:06)
[2021-04-07] MEDS: Aspirin E.C. 81 MG Tablet PO (21:07)
[2021-04-07] MEDS: Fenofibrate 145 MG Tablet 72.5 MG PO (21:07)
[2021-04-07] MEDS: MELATONIN 10 MG TABLET PO (21:07)
[2021-04-07] MEDS: Atorvastatin Calcium 20 MG Tablet PO (21:07)
--- NOTE | 2021-04-07 21:32 | NURSING ---
Pt can postion herself to sit at the side of bed then lay down and pull herself up in bed without any assistance or difficulty
[2021-04-08] VITALS (14 sets, daily range): BP systolic 123–137; BP diastolic 72–87; PULSE 81–99; RESP 12–18; TEMP 35.8–36.9; O2SAT 94–97
[2021-04-08 05:50] LABS: Absolute Lymphocyte Count 1.94 X10^3/uL (0.83-4.51); Basophil# 0.07 X10^3/uL; Eosinophil# 0.12 X10^3/uL; Eosinophils% 1.7 % (0-5); Hematocrit 47.1 % (37-47); Hemoglobin 14.9 g/dL (12.0-15.0); Lymphocyte # 1.94 X10^3/ul (0.83-4.51); Mean Corp Hgb Conc 31.6 g/dL (32-36); Mean Corpuscular Hgb 29.2 pg (27.0-32.0); Mean Corpuscular Volume 92.4 fL (81-99); Monocyte# 0.74 X10^3/uL; Monocyte% 10.7 % (0-10); NRBC Flagged by Analyzer 0 % (0-5); Neutrophil % 57.9 % (47-70); Platelet Count 242 K/mm3 (150-450); RBC Distribution Width CV 14.4 % (11.6-14.6); RBC Distribution Width SD 48.1 fl (35.1-43.9); White Blood Count 6.9 K/mm3 (4.4-11.0)
[2021-04-08 06:17] LABS: Anion Gap 9 (5-15); BUN 10 mg/dL (7-18); BUN/Creat Ratio 25.8 RATIO (10-20); Calcium,Total 8.5 mg/dL (8.5-10.1); Chloride 106 mmol/L (98-107); Creatinine, Serum 0.39 mg/dL (0.55-1.02); EST Glomerular Filtration Rate 179 mL/min (>60); Est Glom Filt Rate - Afr Amer 217 mL/min (>60); Estimated Creatinine Clearance 130.81 ml/min; Glucose 97 mg/dL (74-106); Potassium 3.4 mmol/L (3.5-5.1); Sodium Level 143 mmol/L (136-145)
[2021-04-08] MEDS: Ipratropium/Albuterol Sulfate 3 ML AMPUL.NEB INHALATION ×2 (07:02→20:11)
[2021-04-08] MEDS: Budesonide Respules 0.5 MG/2 ML AMPUL.NEB. INHALATION ×2 (07:02→20:11)
[2021-04-08 07:45] LABS: Bedside Glucose 112 mg/dL (70-110)
[2021-04-08] MEDS: Acetaminophen 325 MG Tablet 650 MG PO (08:04)
[2021-04-08] MEDS: oxyCODONE 5 MG Tablet GT (08:04)
[2021-04-08] MEDS: Potassium Chloride Oral Tablet 10 MEQ PO ×2 (08:04→16:39)
[2021-04-08] MEDS: Furosemide 20 MG Tablet PO ×2 (08:04→16:39)
[2021-04-08] MEDS: Pregabalin 75 MG Capsule 150 MG PO ×2 (09:24→21:03)
[2021-04-08] MEDS: Potassium Chloride Oral Tablet 20 MEQ 40 MEQ PO (09:24)
[2021-04-08] MEDS: FLUoxetine 20 MG Capsule 40 MG PO (09:25)
[2021-04-08] MEDS: Nystatin Powder 15gm Bottle 1 APPLIC TOPICAL ×2 (09:25→20:58)
[2021-04-08] MEDS: Lisinopril 20 MG Tablet PO ×2 (09:25→20:57)
[2021-04-08] MEDS: dilTIAZem CD 240 MG Capsule PO (09:26)
[2021-04-08] MEDS: APIXABAN 5 MG TABLET PO (09:26)
[2021-04-08] MEDS: Docusate Sodium 100 MG Capsule PO ×2 (09:26→20:58)
[2021-04-08] MEDS: Pantoprazole Sodium 40 MG Tablet PO (09:26)
[2021-04-08] MEDS: Empagliflozin 25 MG Tablet PO (09:27)
[2021-04-08] MEDS: Montelukast 10 MG Tablet PO (09:27)
[2021-04-08] MEDS: Insulin Lispro 100 UNIT/ML INSULN.PEN SC (11:21)
[2021-04-08 11:51] LABS: Bedside Glucose 159 mg/dL (70-110)
--- NOTE | 2021-04-08 14:47 | PN.HOSP_ITS ---
Documented by User: Wilder CARSON 04/08/21 14:52 Subjective Subjective Patient is a 60-year-old female comfortably resting in chair, alert and oriented x3. Patient reports that her left lower extremity weakness/numbness continues to improve from admission. Denies chest pain, shortness of breath, palpita tions, fever, chills, N/V/D. Objective Data Objective Data Vital Signs: Vital Signs Temp Pulse Resp BP Pulse Ox 98.5 F 92 16 125/87 H 94 04/08/21 09:10 04/08/21 09:10 04/08/21 09:10 04/08/21 09:10 04/08/21 09:10 Oxygen Flow Rate (L/min) 2 Oxygen Delivery Method Room Air Weight: 263 lb 3.711 oz Body Mass Index (BMI) 45.1 Intake & Output: Intake and Output for Last 24 Hours 04/06/21 04/07/21 04/08/21 23:59 23:59 23:59 Intake Total 1500 / 1620 120 / 120 Output Total 1500 / 3000 4150 / 4150 Balance -1500 / -2700 -2650 / -2530 120 / 120 Lab / Micro Data Result Diagrams: 04/08/21 04:55 04/08/21 04:55 Labs: Laboratory Results - last 24 hr 04/07/21 04/07/21 04/08/21 16:06 20:23 04:55 WBC 6.9 RBC 5.10 Hgb 14.9 Hct 47.1 H MCV 92.4 MCH 29.2 MCHC 31.6 L RDW Std Deviation 48.1 H RDW Coeff of Carmencita 14.4 Plt Count 242 MPV 11.0 Immature Gran % (Auto) 0.700 Neut % (Auto) 57.9 Lymph % (Auto) 28.0 [place] % (Auto) 10.7 H Eos % (Auto) 1.7 Baso % (Auto) 1.0 Absolute Neuts (auto) 4.0 Absolute Lymphs (auto) 1.94 Nucleated RBC % 0 Sodium Potassium Chloride Carbon Dioxide Anion Gap BUN Creatinine Estim Creat Clear Calc Est GFR (MDRD) Af Amer Est GFR (MDRD) Non-Af BUN/Creatinine Ratio Glucose Calcium POC Glucose 102 139 H 04/08/21 04/08/21 04/08/21 04:55 06:42 11:20 WBC RBC Hgb Hct MCV MCH MCHC RDW Std Deviation RDW Coeff of Carmencita Plt Count MPV Immature Gran % (Auto) Neut % (Auto) Lymph % (Auto) [place] % (Auto) Eos % (Auto) Baso % (Auto) Absolute Neuts (auto) Absolute Lymphs (auto) Nucleated RBC % Sodium 143 Potassium 3.4 L Chloride 106 Carbon Dioxide 28.0 Anion Gap 9 BUN 10 Creatinine 0.39 L Estim Creat Clear Calc 130.81 Est GFR (MDRD) Af Amer 217 Est GFR (MDRD) Non-Af 179 BUN/Creatinine Ratio 25.8 H Glucose 97 Calcium 8.5 POC Glucose 112 H 159 H Physical Exam Const alert, oriented x3 and no apparent distress HEENT head/scalp atraumatic and moist oral mucous membranes Head and Scalp: normocephalic Eyes EOMs intact bilaterally and conjunctivae normal Neck no lymphadenopathy, supple and no JVD Resp normal respiratory effort, no retractions, no use of accessory muscles and clear to auscultation bilaterally Cardio regular rate, regular rhythm, no murmurs and no JVD GI normal to inspection, nondistended, normoactive bowel sounds, soft to palpation, non-tender and non-distended Extremity normal to inspection, full ROM and no clubbing, cyanosis or edema Skin no rashes or lesions noted, no wounds, skin turgor normal, no jaundice and no petechiae Neuro CN's II-XII intact bilaterally Psych affect normal Assessment & Plan Assessment/Plan (1) Type 2 diabetes mellitus: QUALIFIERS: Diabetes mellitus complication status: with unspecified complications Diabetes mellitus stencil inspector insulin use: with stencil inspector use Qualified Code(s): E11.8 - Type 2 diabetes mellitus with unspecified complications; Z79.4 - prison (current) use of insulin (2) Hypoxia: (3) Essential hypertension: (4) Carotid artery disease: QUALIFIERS: Carotid artery disease type: stenosis Laterality: bilateral Qualified Code(s): I65.23 - Occlusion and stenosis of bilateral carotid arteries (5) Aortic stenosis: PLAN: Day 4: See subjective patient presentation. Discharge planning: [facility], pending pre- CERT. 1) LLE weakness & numbness Dr. Caballero, Orthopedics, was consulted to assess patient. No intervention indicated at this time. Dr. Caballero will coordinate with Dr. Interiano, pain specialist, about possible caudal epidural steroid injection to help alleviate patient symptoms on an outpatient basis. Brain MRI only demonstrated chronic involutional changes of the brain and demonstrated no acute infarct. Head and neck CT-A were unremarkable. Brain CT demonstrated no acute findings, only showing right parotid mass/enlarged nodule. On my exam patient still endorses mild weakness and numbness of the left lower extremity, however this is improved from yesterday. Left lower extremity strength is a 2/5 on my examination. Plan; PT/OT eval pending, patient is agreeable to SNF at discharge. 2) aortic stenosis Stable, patient follows up with me the [facility] and has scheduled aortic valve replacement on April 19, 2021. 3) DM2 Continue home basal insulin, sliding scale insulin ordered. DVT prophylaxis - on home Xarelto. Patient seen by Wilder Schroeder PA-C, under the supervision of Dr. Ramírez. Documented by User: Dr. Tamika Ramírez MD 04/08/21 15:19 Objective Data Lab / Micro Data Result Diagrams: 04/08/21 04:55 04/08/21 04:55 Charges/Coding Addendum Addendum: This patient was seen in conjunction with ALLI Gunter. I have independently interviewed and examined the patient and reviewed pertinent historical, laboratory, and other data. Please refer to ALLI Gunter's note for his patient's presentation, findings, and recommendations. I have reviewed and his note and concur with his documentation Patient was seen and examined. No new complaints. Physical Exam: Gen: Comfortable, not pale, not jaundiced, morbidly obese CVS:HS I +II, regular, no murmurs RESP: Diminished at lung bases GI: BS present and normal, soft, nontender, no palpable organs EXT:No edema ASSESSMENT: 1. Left lower extremity weakness/numbness 2. Aortic stenosis 3. Type II DM 4. Morbid obesity, BMI 45.1 Plan: We will hold Willy for possible epidural per neurosurgery Pain management consulted for possible epidural injection Discharge planning to SNF ongoing Visit Charges Inpatient E&M: 57921 Subs Hosp L2
[2021-04-08 17:15] LABS: Bedside Glucose 148 mg/dL (70-110)
[2021-04-08] MEDS: Fenofibrate 145 MG Tablet 72.5 MG PO (20:57)
[2021-04-08] MEDS: MELATONIN 10 MG TABLET PO (20:58)
[2021-04-08] MEDS: Atorvastatin Calcium 20 MG Tablet PO (20:58)
[2021-04-08] MEDS: Aspirin E.C. 81 MG Tablet PO (20:58)
[2021-04-08] MEDS: traZODone 50 MG Tablet PO (20:59)
[2021-04-08] MEDS: 0.9% Saline Lock 10 ML Syringe IV (21:04)
[2021-04-08 21:10] LABS: Bedside Glucose 163 mg/dL (70-110)
[2021-04-09] VITALS (13 sets, daily range): BP systolic 112–147; BP diastolic 66–86; PULSE 78–96; RESP 12–18; TEMP 36.3–37.1; O2SAT 95–98
[2021-04-09] MEDS: oxyCODONE 5 MG Tablet GT ×2 (03:19→22:08)
[2021-04-09] MEDS: Acetaminophen 325 MG Tablet 650 MG PO (03:20)
[2021-04-09 05:32] LABS: Absolute Lymphocyte Count 2.13 X10^3/uL (0.83-4.51); Basophil% 1.4 % (0-1); Eosinophil# 0.14 X10^3/uL; Hemoglobin 15.1 g/dL (12.0-15.0); Lymphocyte # 2.13 X10^3/ul (0.83-4.51); Lymphocyte % 29.8 % (19-41); Mean Corp Hgb Conc 31.5 g/dL (32-36); Mean Corpuscular Hgb 29.4 pg (27.0-32.0); Mean Corpuscular Volume 93.4 fL (81-99); Mean Platelet Vol. 10.8 fl (6.2-12.0); Monocyte# 0.68 X10^3/uL; Monocyte% 9.5 % (0-10); NRBC Flagged by Analyzer 0 % (0-5); Neutrophil # 4.04 X10^3/uL (2.7-7.7); Neutrophil % 56.5 % (47-70); Platelet Count 251 K/mm3 (150-450); RBC Distribution Width CV 14.5 % (11.6-14.6); RBC Distribution Width SD 49.7 fl (35.1-43.9); Red Blood Count 5.14 M/mm3 (4.2-5.4); White Blood Count 7.2 K/mm3 (4.4-11.0)
[2021-04-09 05:57] LABS: AST(SGOT) 36 U/L (15-37); Alanine Aminotransfer ALT/SGPT 45 U/L (13-56); Albumin, Serum 3.2 g/dL (3.2-5.0); Alkaline Phosphatase 69 U/L (45-117); Anion Gap 7 (5-15); BUN 13 mg/dL (7-18); BUN/Creat Ratio 23.9 RATIO (10-20); Chloride 108 mmol/L (98-107); Creatinine, Serum 0.54 mg/dL (0.55-1.02); EST Glomerular Filtration Rate 121 mL/min (>60); Est Glom Filt Rate - Afr Amer 146 mL/min (>60); Estimated Creatinine Clearance 94.47 ml/min; Globulin 3.3 g/dL (2.2-4.2); Glucose 150 mg/dL (74-106); Potassium 3.7 mmol/L (3.5-5.1); Protein, Total 6.5 g/dL (6.4-8.2); Sodium Level 143 mmol/L (136-145)
[2021-04-09 06:50] LABS: Bedside Glucose 143 mg/dL (70-110)
[2021-04-09] MEDS: Ipratropium/Albuterol Sulfate 3 ML AMPUL.NEB INHALATION ×2 (07:15→18:37)
[2021-04-09] MEDS: Budesonide Respules 0.5 MG/2 ML AMPUL.NEB. INHALATION ×2 (07:15→18:37)
[2021-04-09] MEDS: FLUoxetine 20 MG Capsule 40 MG PO (08:28)
[2021-04-09] MEDS: dilTIAZem CD 240 MG Capsule PO (08:28)
[2021-04-09] MEDS: Furosemide 20 MG Tablet PO ×2 (08:28→16:47)
[2021-04-09] MEDS: Empagliflozin 25 MG Tablet PO (08:28)
[2021-04-09] MEDS: Docusate Sodium 100 MG Capsule PO ×2 (08:28→22:08)
[2021-04-09] MEDS: Potassium Chloride Oral Tablet 10 MEQ PO ×2 (08:28→16:47)
[2021-04-09] MEDS: Lisinopril 20 MG Tablet PO ×2 (08:28→22:08)
[2021-04-09] MEDS: Montelukast 10 MG Tablet PO (08:29)
[2021-04-09] MEDS: Pantoprazole Sodium 40 MG Tablet PO (08:29)
[2021-04-09] MEDS: Nystatin Powder 15gm Bottle 1 APPLIC TOPICAL ×2 (08:30→22:07)
[2021-04-09] MEDS: Pregabalin 75 MG Capsule 150 MG PO ×2 (08:34→22:08)
--- NOTE | 2021-04-09 08:56 | CASEMGMT ---
Updates faxed to [facility]. SW will call and check in to see if they are able to accept patient. Brittany Diaz PASSPORT SUPPORT MANAGER SENIOR MEDIA DIRECTOR
--- NOTE | 2021-04-09 10:32 | CASEMGMT ---
LUANNE spoke with Minnie at [facility] and they will accept patient. LUANNE told her SW faxed updates this am. She will start the pre-cert. LUANNE spoke with patient and let her know why [facility] no longer takes her insurance. SW also let her know [facility] can take her once her insurance approves her. Plan: [facility] pending pre-cert Brittany ARNDT
--- NOTE | 2021-04-09 11:03 | CON.PCM.PA_ITS ---
Assessment & Plan Assessment/Plan (1) Weakness: (2) Fall: QUALIFIERS: Encounter type: initial encounter Qualified Code(s): W19.XXXA - Unspecified fall, initial encounter (3) Severe aortic valve stenosis: (4) Essential hypertension: (5) Carotid artery disease: QUALIFIERS: Carotid artery disease type: stenosis Laterality: bilateral Qualified Code(s): I65.23 - Occlusion and stenosis of bilateral carotid arteries (6) Atherosclerotic heart disease of [place] coronary artery without angina pectoris: QUALIFIERS: [place] vs. transplanted heart: [place] heart Qualified Code(s): I25.10 - Atherosclerotic heart disease of [place] coronary artery without angina pectoris (7) GERD (gastroesophageal reflux disease): QUALIFIERS: Esophagitis presence: esophagitis presence not specified Qualified Code(s): K21.9 - Gastro-esophageal reflux disease without esophagitis (8) Asthma: QUALIFIERS: Asthma complication type: unspecified Asthma persistence: unspecified Asthma severity: unspecified severity Qualified Code(s): J45.909 - Unspecified asthma, uncomplicated (9) Body mass index 45.0-49.9, adult: (10) Type 2 diabetes mellitus: QUALIFIERS: Diabetes mellitus complication status: with unspecified complications Diabetes mellitus jail insulin use: with jail use Qualified Code(s): E11.8 - Type 2 diabetes mellitus with unspecified complications; Z79.4 - [facility] (current) use of insulin (11) Morbid obesity: (12) History of pulmonary embolism: (13) CHELSEY treated with BiPAP: (14) COPD (chronic obstructive pulmonary disease): QUALIFIERS: COPD type: unspecified COPD Qualified Code(s): J44.9 - Chronic obstructive pulmonary disease, unspecified (15) Hyperlipidemia: QUALIFIERS: Hyperlipidemia type: unspecified Qualified Code(s): E78.5 - Hyperlipidemia, unspecified (16) History of DVT (deep vein thrombosis): (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 1. Weakness and falls: Testing negative for acute stroke. She continues to have left-sided weakness, which has improved. Plans are for SNF for further rehab. Goal is to get a little stronger prior to AV replacement April 19 2. Shortness of breath: Controlled, went to specialist in [place] in 2016 and has been well controlled since. Follows with pulmonary medicine of [place]. 3. Morbid obesity/T2DM/asthma/GERD CAD/HTN/history of PE on anticoagulation/HLD: Complicates overall care, management, recovery, and prognosis. Defer management Thank you for the opportunity to participate in this patient's care, please do not hesitate to contact [facility] with any further questions or concerns. Palliative direct line is [phone]. We will follow up after discharge and will discuss palliative services further at that time. Since Nathalie is having surgery April 19, we will have our liaison reach out to her as she is requesting more information. Greater than 50% of F2F visit dedicated to education and counseling of palliative care services, medications, comorbid conditions and potential assistance with management, and plan of care moving forward. Start time: 1103 End time: 1200 HPI Consult Data Date of Consult: 04/09/21 HPI Narrative HPI Narrative: NATHALIE KELLEY, is a 60 F who presents to [facility] 04/05/2021 with complaints of left-sided weakness, droopiness to the left side of her face, and numbness to the left arm and leg. She has a history of L5 cyst that affected her right side. She had an MRI of her low back which was negative. CT and CTA of the head and neck were negative for acute stroke. She does have a right parotid mass/enlarged nodule. She was evaluated by [facility] teleneurology, who recommended further stroke evaluation. Patient was admitted for further evaluation and management. Echocardiogram showed estimated EF of 68%, severe calcific AV stenosis, mild aortic insufficiency. Patient is actually scheduled for aortic valve replacement April 19. Orthopedics was also consulted due to low back pain radiating to left buttocks and down her left leg. Does note patient had low back surgery late last year, decompression at L4-L5 and L5-S1. She also had neck surgery late last year. She also has a history of PE and DVT and is on Eliquis. There was possible caudal epidural steroid injection plans per Dr. Marcos, patient centered care specialist. Patient will be going [facility] upon discharge pending precertification. Patient is [facility] with [id number]. She lives at home with her spouse first-floor apartment, no steps to enter. She requires assistance with some of her ADLs. DME in the home include shower chair, BSC, grab bars, walker, Rollator, wheelchair, BiPAP with oxygen at 2 L/min through [facility], and a nebulizer. She is active with the waiver program, Marlin Cuellar is her case management rn. She has 8 services through [place] Friday through Friday 3 hours/day. Her healthcare power of associate attorney is her spouse, Alirio Kelley. She uses [facility] retail pharmacy. She follows with Dr. Lui, pulmonology, Dr. Izquierdo cardiology, and Dr. Go for pain management. Nathalie reports she takes Percocet 5/325 mg tabs, can have every 6 hours as needed but takes on average 2/day. She has had multiple issues secondary to falls and other injuries. She needs a right shoulder replacement, had a fall and tore her rotator cuff. She also injured her left wrist and is still dealing with sequela from that, however is improving. She has had cervical and low back surgery. States it is unclear why she was having the left-sided weakness, however it is believed it is related to nerves. She is waiting to hear from Ortho/Dr. Interiano recommendations. States she saw a specialist in [place] for her lungs, she was referred by Dr. Lui. She stayed out there week and had a multitude of tests, she is now on medications that have maintained her symptoms. She is doing quite well in regards to her breathing. She is compliant with her BiPAP at night with oxygen bleed. She does have chronic back pain, knee pain, shoulder pain, and generalized joint pain. No chronic N/V/D. No constipation or diarrhea. She was in the hospital recently for weakness and was sent home too early. She basically had to give herself therapy at home, she was barely able to walk. Her legs give out often when using her Rollator. She has had multiple falls in the last several years. [facility] Medical History Asthma Atherosclerotic heart disease of [place] coronary artery without angina pectoris Back pain with sciatica Bilateral carotid bruits Body mass index 45.0-49.9, adult Carotid artery disease COPD (chronic obstructive pulmonary disease) Diastolic heart failure Essential hypertension GERD (gastroesophageal reflux disease) History of DVT (deep vein thrombosis) History of pulmonary embolism Morbid obesity Nonrheumatic aortic (valve) stenosis CHELSEY treated with BiPAP Personal history of anaphylaxis Type 2 diabetes mellitus Home Medications fluoxetine 40 mg PO DAILY 01/26/14 [History Last Taken 04/05/21] aspirin 81 mg PO QHS 01/06/16 [History Last Taken 04/04/21] docusate sodium 100 mg PO BID 01/06/16 [History Last Taken 04/05/21] upfghpvf-clq-aptb-FA-lutein 1 ea PO DAILY 01/06/16 [History Last Taken 04/05/21] omeprazole 40 mg PO DAILY 01/06/16 [History Last Taken 04/05/21] potassium chloride 10 meq PO BID 01/06/16 [History Last Taken 04/05/21] Xw-X9-wvr-mbyt-vwu-tkik-boron 1 ea PO DAILY 05/27/16 [History Last Taken 04/05/21] fenofibrate nanocrystallized 72.5 mg PO QHS 04/26/19 [History Last Taken 04/04/21] ergocalciferol (vitamin D2) 1,250 mcg (50,000 unit) capsule 50,000 unit PO WE 08/09/19 [History Last Taken 04/04/21] moexipril 15 mg tablet 15 mg PO BID 08/09/19 [History Last Taken 04/05/21] trazodone 50 mg tablet 50 mg PO QHS 08/09/19 [History Last Taken 04/04/21] dapagliflozin 10 mg PO DAILY 11/22/19 [History Last Taken 04/05/21] insulin degludec 50 unit SQ BID 11/22/19 [History Last Taken 04/05/21] semaglutide 1 mg SQ TH 11/22/19 [History Last Taken 04/04/21] epinephrine 0.3 mg/0.3 mL injection, auto-injector 0.3 mg IM X1 PRN #1 ea 01/18/20 [Rx Last Taken Unknown] albuterol sulfate 2.5 mg INHALATION Q2H PRN PRN #180 ml 04/24/20 [Rx Last Taken 03/22/21] albuterol sulfate 90 mcg/actuation aerosol inhaler 2 inh INHALATION Q4H PRN PRN #18 g 04/24/20 [Rx Last Taken Unknown] tiotropium bromide 18 mcg capsule with inhalation device 18 mcg INHALATION DAILY #1 inh 04/24/20 [Rx Last Taken 04/05/21] montelukast 10 mg tablet 10 mg PO DAILY #30 tab 12/07/20 [Rx Last Taken 04/05/21] alendronate 70 mg tablet 70 mg PO WE tab 12/21/20 [History Last Taken 04/04/21] desoximetasone 0.05 % topical cream 1 applic TOPICAL PRN PRN g 12/21/20 [History Last Taken Unknown] nystatin 100,000 unit/gram topical powder 1 applic TOPICAL BID 12/21/20 [History Last Taken 04/05/21] ondansetron 4 mg disintegrating tablet 4 mg PO Q8H PRN 12/21/20 [History Last Taken Unknown] pitavastatin calcium 4 mg tablet 4 mg PO QHS tab 12/21/20 [History Last Taken 04/04/21] Eliquis 5 mg PO BID 03/22/21 [History Last Taken 04/05/21] beclomethasone dipropionate 1 inh INHALATION BID 03/22/21 [History Last Taken 04/05/21] budesonide-formoterol 2 puff INHALATION BID 03/22/21 [History Last Taken 04/05/21] furosemide 20 mg PO BIDCM 03/22/21 [History Last Taken 04/05/21] ipratropium-albuterol 3 ml INHALATION BID 03/22/21 [History Last Taken 04/05/21] tizanidine 4 mg PO Q8H PRN 03/22/21 [History Last Taken 04/04/21] cyanocobalamin (vitamin B-12) [Vitamin B-12] 100 mcg PO DAILY 04/05/21 [History Last Taken 04/05/21] melatonin 10 mg PO QHS 04/05/21 [History Last Taken 04/04/21] oxycodone-acetaminophen [Percocet] 1 tab PO Q6H PRN 04/05/21 [History Last Taken 04/05/21] pregabalin 150 mg PO BID 04/05/21 [History Last Taken 04/05/21] diltiazem HCl 240 mg PO DAILY 04/06/21 [History Last Taken Unknown] Allergy/AdvReac Type Severity Reaction Status Date / Time clindamycin Allergy Rash Verified 04/05/21 19:00 erythromycin base Allergy Rash Verified 04/05/21 19:00 [Erythromycin Base] omalizumab [From Xolair] Allergy Chest Verified 04/05/21 19:00 tightness Penicillins Allergy Rash Verified 04/05/21 19:00 sulfamethoxazole Allergy Chest Verified 04/05/21 19:00 [From Bactrim] tightness trimethoprim [From Bactrim] Allergy Chest Verified 04/05/21 19:00 tightness Sulfa (Sulfonamide AdvReac Unknown Unknown Verified 04/05/21 19:00 Antibiotics) Family History Father Heart disease Diabetes CAD (coronary artery disease) Mother CAD (coronary artery disease) CVA (cerebral vascular accident) Diabetes Brother CAD (coronary artery disease) CVA (cerebral vascular accident) Diabetes Unknown Cancer Grandmother CVA (cerebral vascular accident) Diabetes Grandfather CVA (cerebral vascular accident) Grandmother Myocardial infarction Brother Diabetes Sister Diabetes Surgical History H/O lumbosacral spine surgery History of section History of hernia repair History of left heart catheterization (LHC) (~01/19/21) History of neck surgery History of rotator cuff surgery Hx of appendectomy Social History household members: spouse housing: apartment pets and animals: Yes Smoking Status: Never smoker second hand exposure: No alcohol intake: current alcohol intake frequency: a few times a week substance use type: does not use caffeine: No what type of physical activity do you participate in: none do you feel safe at home: Yes ROS ROS Narrative Review of systems otherwise negative from a constitutional, HEENT, respiratory, cardiovascular, GI, genitourinary, musculoskeletal, skin, neurologic, psychiatric and hematologic system unless stated above. Physical Exam Const alert, oriented x3 and no apparent distress General Appearance: cooperative Exam Limitations: no limitations HEENT normocephalic and head/scalp atraumatic Neck supple General: trachea midline Resp normal respiratory effort Effort and Inspection: able to speak in complete sentences and symmetric chest movement Auscultation: clear to auscultation bilaterally and diminished lung sounds Cardio regular rate, regular rhythm, S1 normal heart sound and S2 normal heart sound Heart Sounds: murmur GI normal to inspection, nondistended, normoactive bowel sounds Extremity no clubbing, cyanosis or edema Skin no rashes or lesions noted General Skin Exam: ecchymosis Neuro CN's II-XII intact bilaterally and moves all extremities Neuro Narrative: Mild weakness left leg and arm. No facial droop Psych mental status grossly normal and affect normal Insight: insight good Judgement: judgement good
[2021-04-09] MEDS: Insulin Lispro 100 UNIT/ML INSULN.PEN SC (12:07)
[2021-04-09 13:00] LABS: Bedside Glucose 162 mg/dL (70-110)
--- NOTE | 2021-04-09 14:58 | CHAPLAIN ---
Type of Pastoral Visit _x__ Initial Visit ___ Follow-up Visit ___ On-call Visit ___ General Patient Visit ___ Spiritual Assessment ___ Family Conference ___ Bereavement ___ Rapid Response ___ Code Blue ___ Other (describe below) Pastoral Care Referral From _x__ Patient ___ Family ___ Nurse ___ Physician ___ Nuclear Powerplant Mechanic ___ Eligibility Clerk ___ Other (describe below) Sacrament/Intervention _x__ Active listening ___ Anointing ___ Sikh ___ Bereavement ___ Communion _x__ Cathi exploration ___ _x__ Life review x Prayer ___ Reconciliation ___ Sacrament of Sick _x__ Supportive presence ___ Wedding ___ Other (describe below) Pastoral Comments lots of life review and cathi exploration for a total picture of what concerns the patient has at this time; pt is scheduled to have heart surgery in April so this episode is of great importance; spouse of pt is ill and home bound so he is concerned about having the pt come home; pt has a gnosticist connection but no branding specialist at this time and therefore it was of great interest for pt to have spiritual support provided by [facility] mincemeat maker
--- NOTE | 2021-04-09 15:01 | PCM.PN.HOSP ---
Documented by User: Wilder CARSON 04/09/21 15:04 Subjective Subjective Patient is a 60-year-old female comfortably resting in bed, alert and orient x3. Patient denies any progression of symptoms in the past 24 hours. Denies chest pain, shortness of breath, palpitations, fever, chills, N/V/D. Objective Data Objective Data Vital Signs: Vital Signs Temp Pulse Resp BP Pulse Ox 98.1 F 88 16 133/72 H 95 04/09/21 14:58 04/09/21 14:58 04/09/21 14:58 04/09/21 14:58 04/09/21 14:58 Oxygen Flow Rate (L/min) 2 Oxygen Delivery Method Room Air Weight: 263 lb 10.766 oz Body Mass Index (BMI) 45.1 Intake & Output: Intake and Output for Last 24 Hours 04/07/21 04/08/21 04/09/21 23:59 23:59 23:59 Intake Total 1500 / 1620 720 / 1180 520 / 520 Output Total 4150 / 4150 1400 / 1400 Balance -2650 / -2530 720 / 1180 -880 / -880 Lab / Micro Data Result Diagrams: 04/09/21 05:16 04/09/21 05:16 Labs: Laboratory Results - last 24 hr 04/08/21 04/08/21 04/09/21 16:37 20:55 05:16 WBC RBC Hgb Hct MCV MCH MCHC RDW Std Deviation RDW Coeff of Carmencita Plt Count MPV Immature Gran % (Auto) Neut % (Auto) Lymph % (Auto) [place]arro % (Auto) Eos % (Auto) Baso % (Auto) Absolute Neuts (auto) Absolute Lymphs (auto) Nucleated RBC % Sodium 143 Potassium 3.7 Chloride 108 H Carbon Dioxide 28.0 Anion Gap 7 BUN 13 Creatinine 0.54 L Estim Creat Clear Calc 94.47 Est GFR (MDRD) Af Amer 146 Est GFR (MDRD) Non-Af 121 BUN/Creatinine Ratio 23.9 H Glucose 150 H Calcium 9.0 Total Bilirubin 0.30 AST 36 ALT 45 Alkaline Phosphatase 69 Total Protein 6.5 Albumin 3.2 Globulin 3.3 Albumin/Globulin Ratio 1.0 POC Glucose 148 H 163 H 04/09/21 04/09/21 04/09/21 05:16 06:36 12:06 WBC 7.2 RBC 5.14 Hgb 15.1 H Hct 48.0 H MCV 93.4 MCH 29.4 MCHC 31.5 L RDW Std Deviation 49.7 H RDW Coeff of Carmencita 14.5 Plt Count 251 MPV 10.8 Immature Gran % (Auto) 0.800 Neut % (Auto) 56.5 Lymph % (Auto) 29.8 [place]arro % (Auto) 9.5 Eos % (Auto) 2.0 Baso % (Auto) 1.4 H Absolute Neuts (auto) 4.0 Absolute Lymphs (auto) 2.13 Nucleated RBC % 0 Sodium Potassium Chloride Carbon Dioxide Anion Gap BUN Creatinine Estim Creat Clear Calc Est GFR (MDRD) Af Amer Est GFR (MDRD) Non-Af BUN/Creatinine Ratio Glucose Calcium Total Bilirubin AST ALT Alkaline Phosphatase Total Protein Albumin Globulin Albumin/Globulin Ratio POC Glucose 143 H 162 H Physical Exam Const alert, oriented x3 and no apparent distress HEENT head/scalp atraumatic, moist oral mucous membranes and oropharynx normal Head and Scalp: normocephalic Eyes EOMs intact bilaterally and conjunctivae normal Neck no lymphadenopathy, supple and no JVD Resp normal respiratory effort, no retractions, no use of accessory muscles and clear to auscultation bilaterally Cardio regular rate, regular rhythm, no murmurs and no JVD GI normal to inspection, nondistended, normoactive bowel sounds, soft to palpation, non-tender and non-distended Extremity normal to inspection, full ROM and no clubbing, cyanosis or edema Skin no rashes or lesions noted, no wounds, skin turgor normal and no jaundice Neuro CN's II-XII intact bilaterally Psych affect normal Assessment & Plan Assessment/Plan (1) Type 2 diabetes mellitus: QUALIFIERS: Diabetes mellitus complication status: with unspecified complications Diabetes mellitus director long term care insulin use: with director long term care use Qualified Code(s): E11.8 - Type 2 diabetes mellitus with unspecified complications; Z79.4 - director long term care (current) use of insulin (2) Morbid obesity: (3) COPD (chronic obstructive pulmonary disease): QUALIFIERS: COPD type: unspecified COPD Qualified Code(s): J44.9 - Chronic obstructive pulmonary disease, unspecified (4) Aortic stenosis: (5) Morbid (severe) obesity due to excess calories: (6) Weakness: PLAN: Day 5: See subjective patient presentation. [facility] planning[facility] 1) LLE weakness & numbness Dr. Caballero, Orthopedics, was consulted to assess patient. No intervention indicated at this time. Dr. Caballero will coordinate with Dr. Interiano, pain specialist, about possible caudal epidural steroid injection to help alleviate patient symptoms on an outpatient basis. Brain MRI only demonstrated chronic involutional changes of the brain and demonstrated no acute infarct. Head and neck CT-A were unremarkable. Brain CT demonstrated no acute findings, only showing right parotid mass/enlarged nodule. On my exam patient still endorses mild weakness and numbness of the left lower extremity, however this is improved from yesterday. Left lower extremity strength is a 3/5 on my examination. Plan; PT/OT eval pending, patient is agreeable to SNF at discharge. 2) aortic stenosis Stable, patient follows up with me the [facility] and has scheduled aortic valve replacement on April 19, 2021. 3) DM2 Continue home basal insulin, sliding scale insulin ordered. DVT prophylaxis - on home Xarelto. Patient seen by Wilder Schroeder PA-C, under the supervision of Dr. Ross. Documented by User: Dr. Jean Ross, 04/09/21 19:10 Objective Data Lab / Micro Data Result Diagrams: 04/09/21 05:16 04/09/21 05:16 Charges/Coding Addendum Addendum: Patient was seen and examined independently of Wilder Schroeder today, I talked extensively with her and her daughter, it appears that the patient has an appointment tomorrow afternoon to see a paint line production supervisor concerning a nerve block for her left-sided radiculopathy, she is also due to have a TAVR procedure next week, she has been off her Eliquis at this time for 36 hours, I think it is best to try to proceed with some kind of nerve block tomorrow, I contacted Dr. Go who she is supposed to see in the office tomorrow and he has agreed to see her in the hospital and proceed with a nerve block if possible tomorrow. Otherwise, patient will not likely have this performed until after her TAVR surgery. On examination she appeared in good health and spirits, she does not appear to be in any distress. Vital signs as documented. Skin warm and dry and without overt rashes. Neck without JVD, thyroid appears normal, trachea is midline, neck is supple. Lungs clear, normal air movement was noted. Heart exam notable for regular rhythm, normal sounds and absence of murmurs, rubs or gallops. Abdomen unremarkable and without evidence of organomegaly, masses, or abdominal aortic enlargement, bowel sounds are present in all 4 quadrants, no abdominal tenderness was noted. Extremities nonedematous, no cyanosis was noted, no clubbing was noted. Neuro: Cranial nerves II through XII are grossly intact, sensation to light touch and pinprick is intact, no weakness was noted in the left lower extremity. Psych: Patient is alert and oriented x3, she does not appear anxious or depressed, she does not appear agitated. We are awaiting approval for the patient to go to an extended care facility, again at this time I think it is prudent to proceed with a nerve block in the left lumbar region if possible tomorrow. I have reviewed Wilder Schroeder's progress note and with the above additions endorse it. Visit Charges Inpatient E&M: 71809 Subs Hosp L2
[2021-04-09 18:06] LABS: Bedside Glucose 141 mg/dL (70-110)
[2021-04-09] MEDS: Fenofibrate 145 MG Tablet 72.5 MG PO (22:07)
[2021-04-09] MEDS: traZODone 50 MG Tablet PO (22:08)
[2021-04-09] MEDS: Aspirin E.C. 81 MG Tablet PO (22:08)
[2021-04-09] MEDS: Atorvastatin Calcium 20 MG Tablet PO (22:08)
[2021-04-09] MEDS: MELATONIN 10 MG TABLET PO (22:08)
[2021-04-09 22:41] LABS: Bedside Glucose 141 mg/dL (70-110)
[2021-04-10] VITALS (24 sets, daily range): BP systolic 82–135; BP diastolic 45–84; PULSE 73–101; RESP 12–24; TEMP 35.8–37; O2SAT 91–98; BMI 45.1
[2021-04-10] MEDS: Ipratropium/Albuterol Sulfate 3 ML AMPUL.NEB INHALATION ×2 (06:48→18:48)
[2021-04-10] MEDS: Budesonide Respules 0.5 MG/2 ML AMPUL.NEB. INHALATION ×2 (06:50→18:48)
[2021-04-10 06:55] LABS: Bedside Glucose 125 mg/dL (70-110)
[2021-04-10] MEDS: oxyCODONE 5 MG Tablet GT (08:54)
[2021-04-10] MEDS: Pregabalin 75 MG Capsule 150 MG PO ×2 (08:54→21:30)
[2021-04-10] MEDS: Potassium Chloride Oral Tablet 10 MEQ PO ×2 (08:56→18:38)
[2021-04-10] MEDS: FLUoxetine 20 MG Capsule 40 MG PO (08:56)
[2021-04-10] MEDS: Pantoprazole Sodium 40 MG Tablet PO (08:56)
[2021-04-10] MEDS: Acetaminophen 325 MG Tablet 650 MG PO (08:56)
[2021-04-10] MEDS: Montelukast 10 MG Tablet PO (08:57)
[2021-04-10] MEDS: Lisinopril 20 MG Tablet PO (08:58)
[2021-04-10] MEDS: Furosemide 20 MG Tablet PO (08:59)
[2021-04-10] MEDS: Docusate Sodium 100 MG Capsule PO ×2 (08:59→21:30)
[2021-04-10] MEDS: Empagliflozin 25 MG Tablet PO (08:59)
[2021-04-10] MEDS: dilTIAZem CD 240 MG Capsule PO (08:59)
--- NOTE | 2021-04-10 10:06 | RAD_ITS ---
PROCEDURE: Caudal block. DATE OF EXAMINATION: 04/10/2021. INDICATION: Female, 60 years old. Low back pain. FLUOROSCOPY TIME (if supplied): (23 seconds) minutes/seconds. 2 images were obtained. RAD/Fluor Guidance for Spine Inj IMPRESSION: Intraoperative imaging provided for caudal block. Electronically Signed: Lon Fuchs MD at 15:02 EDT , Service support ,
[2021-04-10] MEDS: Ondansetron ODT 4 MG Tablet PO (10:24)
--- NOTE | 2021-04-10 11:32 | CASEMGMT ---
LUANNE received a call from Minnie with [facility] and patient was approved. She will be getting her epidural today and then she will go. LUANNE notified physician and patient. LUANNE also called Marlin Cuellar, patient's vocational case manager and let her know above. LUANNE will fax her d/c instructions once in computer. Plan: d/c to [facility] after epidural injection. Brittany Diaz [employer] [facility]
[2021-04-10 12:06] LABS: Bedside Glucose 138 mg/dL (70-110)
--- NOTE | 2021-04-10 12:06 | NURSING ---
copy of pt COVID vaccine series completed placed on chart.
--- NOTE | 2021-04-10 12:21 | PCM.TXEXTCAR ---
Documented by User: Wilder CARSON 04/10/21 12:26 Diet 04/10/21 00:01 Diet: Nothing Per Oral Is pt able to select menu?: No Problem/Diagnosis (1) Type 2 diabetes mellitus: Status: Chronic (2) Morbid obesity: Status: Chronic (3) COPD (chronic obstructive pulmonary disease): Status: Chronic (4) Aortic stenosis: Status: Acute (5) Morbid (severe) obesity due to excess calories: Status: Acute (6) Weakness: Status: Acute Allergies/Procedures Done in Hospital Allergies clindamycin Allergy (Verified 04/05/21 19:00) Rash erythromycin base [Erythromycin Base] Allergy (Verified 04/05/21 19:00) Rash omalizumab [From Xolair] Allergy (Verified 04/05/21 19:00) Chest tightness Penicillins Allergy (Verified 04/05/21 19:00) Rash sulfamethoxazole [From Bactrim] Allergy (Verified 04/05/21 19:00) Chest tightness trimethoprim [From Bactrim] Allergy (Verified 04/05/21 19:00) Chest tightness Sulfa (Sulfonamide Antibiotics) Adverse Reaction (Unknown, Verified 04/05/21 19:00) Unknown shortness of breath Type of Care/Length of Stay Estimated LOS: Convalescent Care Less Than 30 days Type of Care Needed: Skilled Rehab Potential: Good Prognosis: Good Additional Orders/Day of Discharge Day of Discharge: 04/10/21 Dietary and Speech Recommendations Dietitian Recommendations/Changes: Will continue [address] Cardiac diet as ordered Speech Linguistic Eval Summary: Pt. was oriented to self, date of , place, time and situation. Pt. was able to name objects in room, complete sentences, complete immediate memory tasks, delayed memory tasks, rn long term care memory tasks with 100%. Pt. was able to participate in a conversation with appropriate responses. Pt. followed 2-3 step directions with 90% accuracy. No cognitive concerns at this time. Discharge Plan Admission Admit Date/Time: 04/05/21 21:47 Primary Reason for Your Visit: LLE Weakness/numbness Attending Provider: Jean Ross Primary Care Provider: Ophelia Soria Consulting Providers: Arthur Marcos ; Agustín Interiano ; Joseph Casas Discharge Orders/Prescriptions Prescriptions: Continued moexipril 15 mg tablet 15 mg PO BID RF: 0 ergocalciferol (vitamin D2) 50,000 unit capsule 50,000 unit PO WE RF: 0 trazodone 50 mg tablet 50 mg PO QHS RF: 0 albuterol sulfate 2.5 mg /3 mL (0.083 %) solution for nebulization 2.5 mg INHALATION Q2H PRN PRN (Reason: dyspnea, wheezing) Qty: 180 RF: 6 tiotropium bromide 18 mcg capsule, w/inhalation device 18 mcg INHALATION DAILY Qty: 1 RF: 6 albuterol sulfate 90 mcg/actuation HFA aerosol inhaler 2 inh INHALATION Q4H PRN PRN (Reason: Sob &/Or Wheezing) Qty: 18 RF: 6 montelukast 10 mg tablet 10 mg PO DAILY Qty: 30 RF: 6 alendronate 70 mg tablet 70 mg PO WE RF: 0 pitavastatin calcium 4 mg tablet 4 mg PO QHS RF: 0 desoximetasone 0.05 % cream 1 applic TOPICAL PRN PRN (Reason: Itching) RF: 0 ondansetron 4 mg tablet,disintegrating 4 mg PO Q8H PRN (Reason: Nausea) RF: 0 nystatin 100,000 unit/gram powder 1 applic TOPICAL BID RF: 0 fluoxetine 20 MG capsule 40 mg PO DAILY RF: 0 aspirin 81 MG tablet,delayed release (DR/EC) 81 mg PO QHS RF: 0 docusate sodium 100 MG capsule 100 mg PO BID RF: 0 lhnkteko-vox-cudu-FA-lutein 1 EACH tablet 1 ea PO DAILY RF: 0 omeprazole 40 MG capsule 40 mg PO DAILY RF: 0 potassium chloride 10 MEQ tablet 10 meq PO BID RF: 0 [id number]-djin-vgn-qkgq-boron 1 EACH tablet,chewable 1 ea PO DAILY RF: 0 fenofibrate nanocrystallized 145 MG tablet 72.5 mg PO QHS RF: 0 insulin degludec 100 UNIT/ML solution 50 unit SQ BID RF: 0 dapagliflozin 10 MG tablet 10 mg PO DAILY RF: 0 semaglutide 1 MG/0.75 ML pen injector 1 mg SQ TH RF: 0 tizanidine 4 mg Capsule 4 mg PO Q8H PRN (Reason: muscle relaxer) RF: 0 Eliquis 5 mg Tablet 5 mg PO BID RF: 0 furosemide 40 MG tablet 20 mg PO BIDCM RF: 0 ipratropium-albuterol 0.5 mg-3 mg(2.5 mg base)/3 mL solution for nebulization 3 ml INHALATION BID RF: 0 budesonide-formoterol 160-4.5 mcg/actuation HFA aerosol inhaler 2 puff INHALATION BID RF: 0 beclomethasone dipropionate 80 mcg/actuation HFA aerosol breath activated 1 inh inhalation BID RF: 0 oxycodone-acetaminophen [Percocet] 5-325 mg Tablet 1 tab PO Q6H PRN (Reason: Pain) RF: 0 cyanocobalamin (vitamin B-12) [Vitamin B-12] 100 mcg Tablet 100 mcg PO DAILY RF: 0 pregabalin 150 mg capsule 150 mg PO BID RF: 0 melatonin 10 mg Tablet 10 mg PO QHS RF: 0 diltiazem HCl 240 mg capsule,extended release 24hr 240 mg PO DAILY RF: 0 epinephrine 0.3 mg/0.3 mL auto-injector 0.3 mg IM X1 PRN (Reason: Anaphylaxis) Qty: 1 RF: 0 Referrals / Follow Up: Ophelia Soria DO [Primary Care Provider] - Within 2 Weeks Disposition Disposition (needs filled in before D/C Order can be placed): Senior Living Facility Documented by User: Dr. Jean Ross DO 04/10/21 13:29 Allergies/Procedures Done in Hospital Allergies clindamycin Allergy (Verified 04/05/21 19:00) Rash erythromycin base [Erythromycin Base] Allergy (Verified 04/05/21 19:00) Rash omalizumab [From Xolair] Allergy (Verified 04/05/21 19:00) Chest tightness Penicillins Allergy (Verified 04/05/21 19:00) Rash sulfamethoxazole [From Bactrim] Allergy (Verified 04/05/21 19:00) Chest tightness trimethoprim [From Bactrim] Allergy (Verified 04/05/21 19:00) Chest tightness Sulfa (Sulfonamide Antibiotics) Adverse Reaction (Unknown, Verified 04/05/21 19:00) Unknown shortness of breath Discharge Plan Admission Admit Date/Time: 04/05/21 21:47 Primary Reason for Your Visit: LLE Weakness/numbness Attending Provider: Jean Ross Primary Care Provider: Ophelia Soria Consulting Providers: Arthur Marcos ; Agustín Interiano ; Joseph Casas Discharge Orders/Prescriptions Prescriptions: Continued moexipril 15 mg tablet 15 mg PO BID RF: 0 ergocalciferol (vitamin D2) 50,000 unit capsule 50,000 unit PO WE RF: 0 trazodone 50 mg tablet 50 mg PO QHS RF: 0 albuterol sulfate 2.5 mg /3 mL (0.083 %) solution for nebulization 2.5 mg INHALATION Q2H PRN PRN (Reason: dyspnea, wheezing) Qty: 180 RF: 6 tiotropium bromide 18 mcg capsule, w/inhalation device 18 mcg INHALATION DAILY Qty: 1 RF: 6 albuterol sulfate 90 mcg/actuation HFA aerosol inhaler 2 inh INHALATION Q4H PRN PRN (Reason: Sob &/Or Wheezing) Qty: 18 RF: 6 montelukast 10 mg tablet 10 mg PO DAILY Qty: 30 RF: 6 alendronate 70 mg tablet 70 mg PO WE RF: 0 pitavastatin calcium 4 mg tablet 4 mg PO QHS RF: 0 desoximetasone 0.05 % cream 1 applic TOPICAL PRN PRN (Reason: Itching) RF: 0 ondansetron 4 mg tablet,disintegrating 4 mg PO Q8H PRN (Reason: Nausea) RF: 0 nystatin 100,000 unit/gram powder 1 applic TOPICAL BID RF: 0 fluoxetine 20 MG capsule 40 mg PO DAILY RF: 0 aspirin 81 MG tablet,delayed release (DR/EC) 81 mg PO QHS RF: 0 docusate sodium 100 MG capsule 100 mg PO BID RF: 0 todefbff-jmm-pylw-FA-lutein 1 EACH tablet 1 ea PO DAILY RF: 0 omeprazole 40 MG capsule 40 mg PO DAILY RF: 0 potassium chloride 10 MEQ tablet 10 meq PO BID RF: 0 [id number]-[id number]-kowo-ica-bgyn-boron 1 EACH tablet,chewable 1 ea PO DAILY RF: 0 fenofibrate nanocrystallized 145 MG tablet 72.5 mg PO QHS RF: 0 insulin degludec 100 UNIT/ML solution 50 unit SQ BID RF: 0 dapagliflozin 10 MG tablet 10 mg PO DAILY RF: 0 semaglutide 1 MG/0.75 ML pen injector 1 mg SQ TH RF: 0 tizanidine 4 mg Capsule 4 mg PO Q8H PRN (Reason: muscle relaxer) RF: 0 Eliquis 5 mg Tablet 5 mg PO BID RF: 0 furosemide 40 MG tablet 20 mg PO BIDCM RF: 0 ipratropium-albuterol 0.5 mg-3 mg(2.5 mg base)/3 mL solution for nebulization 3 ml INHALATION BID RF: 0 budesonide-formoterol 160-4.5 mcg/actuation HFA aerosol inhaler 2 puff INHALATION BID RF: 0 beclomethasone dipropionate 80 mcg/actuation HFA aerosol breath activated 1 inh inhalation BID RF: 0 oxycodone-acetaminophen [Percocet] 5-325 mg Tablet 1 tab PO Q6H PRN (Reason: Pain) RF: 0 cyanocobalamin (vitamin B-12) [Vitamin B-12] 100 mcg Tablet 100 mcg PO DAILY RF: 0 pregabalin 150 mg capsule 150 mg PO BID RF: 0 melatonin 10 mg Tablet 10 mg PO QHS RF: 0 diltiazem HCl 240 mg capsule,extended release 24hr 240 mg PO DAILY RF: 0 epinephrine 0.3 mg/0.3 mL auto-injector 0.3 mg IM X1 PRN (Reason: Anaphylaxis) Qty: 1 RF: 0 Referrals / Follow Up: Ophelia Soria DO [Primary Care Provider] - Within 2 Weeks Disposition Disposition (needs filled in before D/C Order can be placed): Senior Living Facility
--- NOTE | 2021-04-10 13:28 | DS.PCM_ITS ---
Documented by User: Wilder CARSON 04/11/21 11:06 Providers Date of Admission: 04/05/21 Primary Care Physician: Dr. Ophelia Soria, Consultations 04/06/21 14:49 Consult: Orthopedics Routine Consulting Provider: Arthur Marcos Reason for Consult: LLE weakness EMERGENT Consult: No Notified: Yes Date Notified: 04/06/21 Time Notified: 14:50 Method of Notification: telephone w/ office staff 04/08/21 15:17 Consult: Pain Management Routine Consulting Provider: Agustín Interiano Reason for Consult: Chronic back pain for epidural EMERGENT Consult: No MD Notified: Yes Date Notified: 04/08/21 Time Notified: 15:27 Method of Notification: Verbal Comments:: will not be able to see until . 04/09/21 18:26 Consult: Pain Management Routine Consulting Provider: Joseph Casas Reason for Consult: left radiculopathy EMERGENT Consult: No MD Notified: Yes Date Notified: 04/09/21 Time Notified: 18:27 Method of Notification: Verbal Reason For Visit: LEFT SIDED WEAKNESS Diagnosis Discharge Diagnosis (1) Type 2 diabetes mellitus: Status: Chronic Code(s): E11.9 - Type 2 diabetes mellitus without complications Qualifiers: Diabetes mellitus complication status: with unspecified complications Diabetes mellitus correction insulin use: with long lines operator use Qualified Code(s): E11.8 - Type 2 diabetes mellitus with unspecified complications; Z79.4 - terminal operator (current) use of insulin (2) Morbid obesity: Status: Chronic Code(s): E66.01 - Morbid (severe) obesity due to excess calories (3) COPD (chronic obstructive pulmonary disease): Status: Chronic Code(s): J44.9 - Chronic obstructive pulmonary disease, unspecified Qualifiers: COPD type: unspecified COPD Qualified Code(s): J44.9 - Chronic obstructive pulmonary disease, unspecified (4) Aortic stenosis: Status: Acute Code(s): I35.0 - Nonrheumatic aortic (valve) stenosis (5) Morbid (severe) obesity due to excess calories: Status: Acute Code(s): E66.01 - Morbid (severe) obesity due to excess calories (6) Weakness: Status: Acute Code(s): R53.1 - Weakness Medications at Discharge Home Medications fluoxetine 40 mg PO DAILY 01/26/14 aspirin 81 mg PO QHS 01/06/16 docusate sodium 100 mg PO BID 01/06/16 cwuzxger-sxw-ejud-FA-lutein 1 ea PO DAILY 01/06/16 omeprazole 40 mg PO DAILY 01/06/16 potassium chloride 10 meq PO BID 01/06/16 Js-A8-dav-jzlm-wtu-jbck-boron 1 ea PO DAILY 05/27/16 fenofibrate nanocrystallized 72.5 mg PO QHS 04/26/19 ergocalciferol (vitamin D2) 1,250 mcg (50,000 unit) capsule 50,000 unit PO WE 08/09/19 moexipril 15 mg tablet 15 mg PO BID 08/09/19 trazodone 50 mg tablet 50 mg PO QHS 08/09/19 dapagliflozin 10 mg PO DAILY 11/22/19 insulin degludec 50 unit SQ BID 11/22/19 semaglutide 1 mg SQ TH 11/22/19 epinephrine 0.3 mg/0.3 mL injection, auto-injector 0.3 mg IM X1 PRN #1 ea 01/18/20 albuterol sulfate 2.5 mg INHALATION Q2H PRN PRN #180 ml 04/24/20 albuterol sulfate 90 mcg/actuation aerosol inhaler 2 inh INHALATION Q4H PRN PRN #18 g 04/24/20 tiotropium bromide 18 mcg capsule with inhalation device 18 mcg INHALATION DAILY #1 inh 04/24/20 montelukast 10 mg tablet 10 mg PO DAILY #30 tab 12/07/20 alendronate 70 mg tablet 70 mg PO WE tab 12/21/20 desoximetasone 0.05 % topical cream 1 applic TOPICAL PRN PRN g 12/21/20 nystatin 100,000 unit/gram topical powder 1 applic TOPICAL BID 12/21/20 ondansetron 4 mg disintegrating tablet 4 mg PO Q8H PRN 12/21/20 pitavastatin calcium 4 mg tablet 4 mg PO QHS tab 12/21/20 Eliquis 5 mg PO BID 03/22/21 beclomethasone dipropionate 1 inh INHALATION BID 03/22/21 budesonide-formoterol 2 puff INHALATION BID 03/22/21 furosemide 20 mg PO BIDCM 03/22/21 ipratropium-albuterol 3 ml INHALATION BID 03/22/21 tizanidine 4 mg PO Q8H PRN 03/22/21 cyanocobalamin (vitamin B-12) [Vitamin B-12] 100 mcg PO DAILY 04/05/21 melatonin 10 mg PO QHS 04/05/21 oxycodone-acetaminophen [Percocet] 1 tab PO Q6H PRN 04/05/21 pregabalin 150 mg PO BID 04/05/21 diltiazem HCl 240 mg PO DAILY 04/06/21 Hospital Course Summary of Care Provided Minutes Spent on Discharge: 35 Hospital Course: Discharge planning: [facility] in regards to #1. 1) LLE weakness & numbness Dr. Go to perform caudal epidural steroid injection before patient is discharged. Injection to be performed while patient is admitted in hopes that it well accelerate her physical therapy and shorten her [facility] care duration. Brain MRI only demonstrated chronic involutional changes of the brain and demonstrated no acute infarct. Head and neck CT-A were unremarkable. Brain CT demonstrated no acute findings, only showing right parotid mass/enlarged nodule. On my exam patient still endorses mild weakness and numbness of the left lower extremity, however this is improved from yesterday. Left lower extremity strength is a 3/5 on my examination. Plan; [facility]. 2) aortic stenosis Stable, patient follows up with me the [facility] and has scheduled aortic valve replacement on April 19, 2021. 3) DM2 Continue home basal insulin, sliding scale insulin ordered. Patient seen by Wilder Schroeder PA-C, under the supervision of Dr. Ross. Physical Exam Narrative Patient is a 60-year-old female comfortably resting in bed, alert and oriented x3. Patient reports subjective improvement of her left lower extremity numbness/weakness, however still reports. Denies chest pain, shortness of breath, palpitations, fever, chills, N/V/D. Const alert, oriented x3 and no apparent distress HEENT normocephalic, head/scalp atraumatic and hearing grossly normal bilaterally Eyes EOMs intact bilaterally and conjunctivae normal Neck no lymphadenopathy, supple and no JVD Resp normal respiratory effort, no retractions, no use of accessory muscles and clear to auscultation bilaterally Cardio regular rate, regular rhythm, no murmurs and no JVD GI normal to inspection, nondistended, normoactive bowel sounds, soft to palpation and non-tender Extremity normal to inspection, full ROM and no clubbing, cyanosis or edema Extremity Narrative: See neurological. Skin no rashes or lesions noted, no wounds and skin turgor normal Neuro Neuro Narrative: Left lower extremity strength noted to be about 3/5 on my exam. Patient still endorses asymmetric weakness and numbness of the left lower extremity. Psych affect normal Weight / BMI Weight Weight: 262 lb 9.129 oz Body Mass Index (BMI) 45.1 ABG / Lab / Microbiology Data Result Diagrams: 04/09/21 05:16 04/09/21 05:16 Laboratory: Laboratory Results - last 24 hr 04/09/21 04/09/21 04/10/21 16:45 22:03 06:50 POC Glucose 141 H 141 H 125 H 04/10/21 11:54 POC Glucose 138 H Microbiology: Microbiology 04/10/21 11:50 SARS-CoV-2 Antigen (Rapid) - Final Mucosa - Nose Microbiology 04/10/21 11:50 Mucosa - Nose SARS-CoV-2 Antigen (Rapid) - Final Meaningful Use Info Meaningful Use Diagnoses (Choose all that apply): None applicable Discharge Plan Admission Admit Date/Time: 04/05/21 21:47 Primary Reason for Your Visit: LLE Weakness/numbness Attending Provider: Jean Ross Primary Care Provider: Ophelia Soria Consulting Providers: Arthur Marcos ; Agustín Interiano ; Joseph Casas Instructions Additional Instructions / Restrictions: Patient Problems: Altered Health Status related to Hospitalization Patient Goals: *Optimal Level of Health *Keep Appointments *Medication Compliance *Remain Safe Discharge Orders/Prescriptions Prescriptions: Continued moexipril 15 mg tablet 15 mg PO BID RF: 0 ergocalciferol (vitamin D2) 50,000 unit capsule 50,000 unit PO WE RF: 0 trazodone 50 mg tablet 50 mg PO QHS RF: 0 albuterol sulfate 2.5 mg /3 mL (0.083 %) solution for nebulization 2.5 mg INHALATION Q2H PRN PRN (Reason: dyspnea, wheezing) Qty: 180 RF: 6 tiotropium bromide 18 mcg capsule, w/inhalation device 18 mcg INHALATION DAILY Qty: 1 RF: 6 albuterol sulfate 90 mcg/actuation HFA aerosol inhaler 2 inh INHALATION Q4H PRN PRN (Reason: Sob &/Or Wheezing) Qty: 18 RF: 6 montelukast 10 mg tablet 10 mg PO DAILY Qty: 30 RF: 6 alendronate 70 mg tablet 70 mg PO WE RF: 0 pitavastatin calcium 4 mg tablet 4 mg PO QHS RF: 0 desoximetasone 0.05 % cream 1 applic TOPICAL PRN PRN (Reason: Itching) RF: 0 ondansetron 4 mg tablet,disintegrating 4 mg PO Q8H PRN (Reason: Nausea) RF: 0 nystatin 100,000 unit/gram powder 1 applic TOPICAL BID RF: 0 fluoxetine 20 MG capsule 40 mg PO DAILY RF: 0 aspirin 81 MG tablet,delayed release (DR/EC) 81 mg PO QHS RF: 0 docusate sodium 100 MG capsule 100 mg PO BID RF: 0 xsdtwygp-ieq-ngut-FA-lutein 1 EACH tablet 1 ea PO DAILY RF: 0 omeprazole 40 MG capsule 40 mg PO DAILY RF: 0 potassium chloride 10 MEQ tablet 10 meq PO BID RF: 0 Km-X4-cjs-knvw-crt-obrd-boron 1 EACH tablet,chewable 1 ea PO DAILY RF: 0 fenofibrate nanocrystallized 145 MG tablet 72.5 mg PO QHS RF: 0 insulin degludec 100 UNIT/ML solution 50 unit SQ BID RF: 0 dapagliflozin 10 MG tablet 10 mg PO DAILY RF: 0 semaglutide 1 MG/0.75 ML pen injector 1 mg SQ TH RF: 0 tizanidine 4 mg Capsule 4 mg PO Q8H PRN (Reason: muscle relaxer) RF: 0 Eliquis 5 mg Tablet 5 mg PO BID RF: 0 furosemide 40 MG tablet 20 mg PO BIDCM RF: 0 ipratropium-albuterol 0.5 mg-3 mg(2.5 mg base)/3 mL solution for nebulization 3 ml INHALATION BID RF: 0 budesonide-formoterol 160-4.5 mcg/actuation HFA aerosol inhaler 2 puff INHALATION BID RF: 0 beclomethasone dipropionate 80 mcg/actuation HFA aerosol breath activated 1 inh inhalation BID RF: 0 oxycodone-acetaminophen [Percocet] 5-325 mg Tablet 1 tab PO Q6H PRN (Reason: Pain) RF: 0 cyanocobalamin (vitamin B-12) [Vitamin B-12] 100 mcg Tablet 100 mcg PO DAILY RF: 0 pregabalin 150 mg capsule 150 mg PO BID RF: 0 melatonin 10 mg Tablet 10 mg PO QHS RF: 0 diltiazem HCl 240 mg capsule,extended release 24hr 240 mg PO DAILY RF: 0 epinephrine 0.3 mg/0.3 mL auto-injector 0.3 mg IM X1 PRN (Reason: Anaphylaxis) Qty: 1 RF: 0 Referrals / Follow Up: Ophelia Soria DO [Primary Care Provider] - Within 2 Weeks Disposition Disposition (needs filled in before D/C Order can be placed): Residential Facility Documented by User: Dr. Jean Ross DO 04/11/21 18:20 Providers Date of Admission: 04/05/21 Reason For Visit: LEFT SIDED WEAKNESS Medications at Discharge Home Medications fluoxetine 40 mg PO DAILY 01/26/14 aspirin 81 mg PO QHS 01/06/16 docusate sodium 100 mg PO BID 01/06/16 fgffwyby-gge-tubf-FA-lutein 1 ea PO DAILY 01/06/16 omeprazole 40 mg PO DAILY 01/06/16 potassium chloride 10 meq PO BID 01/06/16 Vf-R0-pon-egit-zyo-xeuv-boron 1 ea PO DAILY 05/27/16 fenofibrate nanocrystallized 72.5 mg PO QHS 04/26/19 ergocalciferol (vitamin D2) 1,250 mcg (50,000 unit) capsule 50,000 unit PO WE 08/09/19 moexipril 15 mg tablet 15 mg PO BID 08/09/19 trazodone 50 mg tablet 50 mg PO QHS 08/09/19 dapagliflozin 10 mg PO DAILY 11/22/19 insulin degludec 50 unit SQ BID 11/22/19 semaglutide 1 mg SQ TH 11/22/19 epinephrine 0.3 mg/0.3 mL injection, auto-injector 0.3 mg IM X1 PRN #1 ea 01/18/20 albuterol sulfate 2.5 mg INHALATION Q2H PRN PRN #180 ml 04/24/20 albuterol sulfate 90 mcg/actuation aerosol inhaler 2 inh INHALATION Q4H PRN PRN #18 g 04/24/20 tiotropium bromide 18 mcg capsule with inhalation device 18 mcg INHALATION DAILY #1 inh 04/24/20 montelukast 10 mg tablet 10 mg PO DAILY #30 tab 12/07/20 alendronate 70 mg tablet 70 mg PO WE tab 12/21/20 desoximetasone 0.05 % topical cream 1 applic TOPICAL PRN PRN g 12/21/20 nystatin 100,000 unit/gram topical powder 1 applic TOPICAL BID 12/21/20 ondansetron 4 mg disintegrating tablet 4 mg PO Q8H PRN 12/21/20 pitavastatin calcium 4 mg tablet 4 mg PO QHS tab 12/21/20 Eliquis 5 mg PO BID 03/22/21 beclomethasone dipropionate 1 inh INHALATION BID 03/22/21 budesonide-formoterol 2 puff INHALATION BID 03/22/21 furosemide 20 mg PO BIDCM 03/22/21 ipratropium-albuterol 3 ml INHALATION BID 03/22/21 tizanidine 4 mg PO Q8H PRN 03/22/21 cyanocobalamin (vitamin B-12) [Vitamin B-12] 100 mcg PO DAILY 04/05/21 melatonin 10 mg PO QHS 04/05/21 oxycodone-acetaminophen [Percocet] 1 tab PO Q6H PRN 04/05/21 pregabalin 150 mg PO BID 04/05/21 diltiazem HCl 240 mg PO DAILY 04/06/21 ABG / Lab / Microbiology Data Result Diagrams: 04/09/21 05:16 04/09/21 05:16 Discharge Plan Admission Admit Date/Time: 04/05/21 21:47 Primary Reason for Your Visit: LLE Weakness/numbness Attending Provider: Jean Ross Primary Care Provider: Ophelia Soria Consulting Providers: Arthur Marcos ; Agustín Interiano ; Joseph Casas Instructions Additional Instructions / Restrictions: Patient Problems: Altered Health Status related to Hospitalization Patient Goals: *Optimal Level of Health *Keep Appointments *Medication Compliance *Remain Safe Discharge Orders/Prescriptions Prescriptions: Continued moexipril 15 mg tablet 15 mg PO BID RF: 0 ergocalciferol (vitamin D2) 50,000 unit capsule 50,000 unit PO WE RF: 0 trazodone 50 mg tablet 50 mg PO QHS RF: 0 albuterol sulfate 2.5 mg /3 mL (0.083 %) solution for nebulization 2.5 mg INHALATION Q2H PRN PRN (Reason: dyspnea, wheezing) Qty: 180 RF: 6 tiotropium bromide 18 mcg capsule, w/inhalation device 18 mcg INHALATION DAILY Qty: 1 RF: 6 albuterol sulfate 90 mcg/actuation HFA aerosol inhaler 2 inh INHALATION Q4H PRN PRN (Reason: Sob &/Or Wheezing) Qty: 18 RF: 6 montelukast 10 mg tablet 10 mg PO DAILY Qty: 30 RF: 6 alendronate 70 mg tablet 70 mg PO WE RF: 0 pitavastatin calcium 4 mg tablet 4 mg PO QHS RF: 0 desoximetasone 0.05 % cream 1 applic TOPICAL PRN PRN (Reason: Itching) RF: 0 ondansetron 4 mg tablet,disintegrating 4 mg PO Q8H PRN (Reason: Nausea) RF: 0 nystatin 100,000 unit/gram powder 1 applic TOPICAL BID RF: 0 fluoxetine 20 MG capsule 40 mg PO DAILY RF: 0 aspirin 81 MG tablet,delayed release (DR/EC) 81 mg PO QHS RF: 0 docusate sodium 100 MG capsule 100 mg PO BID RF: 0 vuycxzdq-dmw-fabv-FA-lutein 1 EACH tablet 1 ea PO DAILY RF: 0 omeprazole 40 MG capsule 40 mg PO DAILY RF: 0 potassium chloride 10 MEQ tablet 10 meq PO BID RF: 0 Eg-D3-bjh-wzsw-tln-lulk-boron 1 EACH tablet,chewable 1 ea PO DAILY RF: 0 fenofibrate nanocrystallized 145 MG tablet 72.5 mg PO QHS RF: 0 insulin degludec 100 UNIT/ML solution 50 unit SQ BID RF: 0 dapagliflozin 10 MG tablet 10 mg PO DAILY RF: 0 semaglutide 1 MG/0.75 ML pen injector 1 mg SQ TH RF: 0 tizanidine 4 mg Capsule 4 mg PO Q8H PRN (Reason: muscle relaxer) RF: 0 Eliquis 5 mg Tablet 5 mg PO BID RF: 0 furosemide 40 MG tablet 20 mg PO BIDCM RF: 0 ipratropium-albuterol 0.5 mg-3 mg(2.5 mg base)/3 mL solution for nebulization 3 ml INHALATION BID RF: 0 budesonide-formoterol 160-4.5 mcg/actuation HFA aerosol inhaler 2 puff INHALATION BID RF: 0 beclomethasone dipropionate 80 mcg/actuation HFA aerosol breath activated 1 inh inhalation BID RF: 0 oxycodone-acetaminophen [Percocet] 5-325 mg Tablet 1 tab PO Q6H PRN (Reason: Pain) RF: 0 cyanocobalamin (vitamin B-12) [Vitamin B-12] 100 mcg Tablet 100 mcg PO DAILY RF: 0 pregabalin 150 mg capsule 150 mg PO BID RF: 0 melatonin 10 mg Tablet 10 mg PO QHS RF: 0 diltiazem HCl 240 mg capsule,extended release 24hr 240 mg PO DAILY RF: 0 epinephrine 0.3 mg/0.3 mL auto-injector 0.3 mg IM X1 PRN (Reason: Anaphylaxis) Qty: 1 RF: 0 Referrals / Follow Up: Ophelia Soira DO [Primary Care Provider] - Within 2 Weeks Disposition Disposition (needs filled in before D/C Order can be placed): Residential Facility Charges/Coding Addendum Addendum: Patient was seen and examined today independently of Wilder Schroeder, her blood pressure is stable at this time, [facility] due to [facility] blood pressure. On examination she appeared in good health and spirits, she does not appear to be in any distress. Vital signs as documented. Skin warm and dry and without overt rashes. Neck without JVD, thyroid appears normal, trachea is midline, neck is supple. Lungs clear, normal air movement was noted. Heart exam notable for regular rhythm, normal sounds and absence of murmurs, rubs or gallops. Abdomen unremarkable and without evidence of organomegaly, masses, or abdominal aortic enlargement, bowel sounds are present in all 4 quadrants, no abdominal tenderness was noted. Extremities nonedematous, no cyanosis was noted, no clubbing was noted. Neuro: Cranial nerves II through XII are grossly intact, no focal motor deficits were noted, sensation to light touch and pinprick is intact, motor exam 5/5 throughout. Psych: Patient is alert and oriented x3, she does not appear anxious or depressed, she does not appear agitated. Patient appears stable for discharge to an extended care facility for inpatient rehab services at this time, I have reviewed Wilder Schroeder's discharge summary including his medical assessment and plan of care and endorse it. Visit Charges Inpatient E&M: 45137 Disch Hosp
--- NOTE | 2021-04-10 13:41 | CASEMGMT ---
LUANNE faxed discharge instructions to Chris and Marlin Cuellar at [facility]. Patient is getting a procedure today at 4p. [employer] Assistant will set up transport for patient. LUANNE completed convalescent on [facility]. Plan: d/c to [facility] under skilled level of care on a convalescent stay. Staff will arrange transport when ready. 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
--- NOTE | 2021-04-10 13:59 | PHA.DC.MR ---
Pharmacy Service has performed discharge medication reconciliation for this patient. The patient's discharge medication list was reviewed for discrepancies and discrepancies were resolved. Home Medications fluoxetine 40 mg PO DAILY 01/26/14 aspirin 81 mg PO QHS 01/06/16 docusate sodium 100 mg PO BID 01/06/16 lewpzesm-wix-afci-FA-lutein 1 ea PO DAILY 01/06/16 omeprazole 40 mg PO DAILY 01/06/16 potassium chloride 10 meq PO BID 01/06/16 Eg-O5-wes-pnbe-gwd-qvmc-boron 1 ea PO DAILY 05/27/16 fenofibrate nanocrystallized 72.5 mg PO QHS 04/26/19 ergocalciferol (vitamin D2) 1,250 mcg (50,000 unit) capsule 50,000 unit PO WE 08/09/19 moexipril 15 mg tablet 15 mg PO BID 08/09/19 trazodone 50 mg tablet 50 mg PO QHS 08/09/19 dapagliflozin 10 mg PO DAILY 11/22/19 insulin degludec 50 unit SQ BID 11/22/19 semaglutide 1 mg SQ TH 11/22/19 epinephrine 0.3 mg/0.3 mL injection, auto-injector 0.3 mg IM X1 PRN #1 ea 01/18/20 albuterol sulfate 2.5 mg INHALATION Q2H PRN PRN #180 ml 04/24/20 albuterol sulfate 90 mcg/actuation aerosol inhaler 2 inh INHALATION Q4H PRN PRN #18 g 04/24/20 tiotropium bromide 18 mcg capsule with inhalation device 18 mcg INHALATION DAILY #1 inh 04/24/20 montelukast 10 mg tablet 10 mg PO DAILY #30 tab 12/07/20 alendronate 70 mg tablet 70 mg PO WE tab 12/21/20 desoximetasone 0.05 % topical cream 1 applic TOPICAL PRN PRN g 12/21/20 nystatin 100,000 unit/gram topical powder 1 applic TOPICAL BID 12/21/20 ondansetron 4 mg disintegrating tablet 4 mg PO Q8H PRN 12/21/20 pitavastatin calcium 4 mg tablet 4 mg PO QHS tab 12/21/20 Eliquis 5 mg PO BID 03/22/21 beclomethasone dipropionate 1 inh INHALATION BID 03/22/21 budesonide-formoterol 2 puff INHALATION BID 03/22/21 furosemide 20 mg PO BIDCM 03/22/21 ipratropium-albuterol 3 ml INHALATION BID 03/22/21 tizanidine 4 mg PO Q8H PRN 03/22/21 cyanocobalamin (vitamin B-12) [Vitamin B-12] 100 mcg PO DAILY 04/05/21 melatonin 10 mg PO QHS 04/05/21 oxycodone-acetaminophen [Percocet] 1 tab PO Q6H PRN 04/05/21 pregabalin 150 mg PO BID 04/05/21 diltiazem HCl 240 mg PO DAILY 04/06/21
[2021-04-10] MEDS: tiZANidine HCl 2 MG Tablet 4 MG PO (14:30)
[2021-04-10] MEDS: Lactated Ringers 1,000 ML 100 ML IV ×2 (15:47→21:31)
--- NOTE | 2021-04-10 15:48 | PCM.CONS.GEN ---
Assessment & Plan Assessment/Plan (1) Acute low back pain with left-sided sciatica: PLAN: At this current time patient will continue her current medications patient will stop her Eliquis for 48 hours prior to injection we will schedule the patient for a diagnostic/therapeutic caudal epidural steroid injection for her acute low back pain with left-sided sciatica patient will follow up as an outpatient in 1 to 2 weeks for reevaluation, HPI Consult Data Date of Consult: 04/10/21 HPI Narrative Reason for Consultation: Acute low back pain and left leg pain HPI Narrative: NATHALIE HERMAN, is a 60 F who presents with acute low back pain and left leg pain status post multiple falls the patient was seen and evaluated by the spine surgeon which he indicated no surgery at this current time a consult was made for us to evaluate the patient for further evaluation and possible injection patient stated her back pain has been an ongoing patient is well established with our practice she stated she had multiple falls in the last week which have resulted in acute low back pain and left leg pain with numbness tingling to her left calf and toe area she denies any bowel bladder problems she denies any weakness she admits to lancinating pain down the left leg on occasions relieved by laying down the patient stated that the pain has been interfering with her activities of daily living that she seek medical help. FORMERLY [facility], [facility] Medical History Asthma Atherosclerotic heart disease of cahto coronary artery without angina pectoris Back pain with sciatica Bilateral carotid bruits Body mass index 45.0-49.9, adult Carotid artery disease COPD (chronic obstructive pulmonary disease) Diastolic heart failure Essential hypertension GERD (gastroesophageal reflux disease) History of DVT (deep vein thrombosis) History of pulmonary embolism Morbid obesity Nonrheumatic aortic (valve) stenosis CHELSEY treated with BiPAP Personal history of anaphylaxis Type 2 diabetes mellitus Home Medications fluoxetine 40 mg PO DAILY 01/26/14 [History Last Taken 04/05/21] aspirin 81 mg PO QHS 01/06/16 [History Last Taken 04/04/21] docusate sodium 100 mg PO BID 01/06/16 [History Last Taken 04/05/21] eihixeqi-psp-jmeq-FA-lutein 1 ea PO DAILY 01/06/16 [History Last Taken 04/05/21] omeprazole 40 mg PO DAILY 01/06/16 [History Last Taken 04/05/21] potassium chloride 10 meq PO BID 01/06/16 [History Last Taken 04/05/21] Ue-P6-vps-bpfg-kxy-arki-boron 1 ea PO DAILY 05/27/16 [History Last Taken 04/05/21] fenofibrate nanocrystallized 72.5 mg PO QHS 04/26/19 [History Last Taken 04/04/21] ergocalciferol (vitamin D2) 1,250 mcg (50,000 unit) capsule 50,000 unit PO WE 08/09/19 [History Last Taken 04/04/21] moexipril 15 mg tablet 15 mg PO BID 08/09/19 [History Last Taken 04/05/21] trazodone 50 mg tablet 50 mg PO QHS 08/09/19 [History Last Taken 04/04/21] dapagliflozin 10 mg PO DAILY 11/22/19 [History Last Taken 04/05/21] insulin degludec 50 unit SQ BID 11/22/19 [History Last Taken 04/05/21] semaglutide 1 mg SQ TH 11/22/19 [History Last Taken 04/04/21] epinephrine 0.3 mg/0.3 mL injection, auto-injector 0.3 mg IM X1 PRN #1 ea 01/18/20 [Rx Last Taken Unknown] albuterol sulfate 2.5 mg INHALATION Q2H PRN PRN #180 ml 04/24/20 [Rx Last Taken 03/22/21] albuterol sulfate 90 mcg/actuation aerosol inhaler 2 inh INHALATION Q4H PRN PRN #18 g 04/24/20 [Rx Last Taken Unknown] tiotropium bromide 18 mcg capsule with inhalation device 18 mcg INHALATION DAILY #1 inh 04/24/20 [Rx Last Taken 04/05/21] montelukast 10 mg tablet 10 mg PO DAILY #30 tab 12/07/20 [Rx Last Taken 04/05/21] alendronate 70 mg tablet 70 mg PO WE tab 12/21/20 [History Last Taken 04/04/21] desoximetasone 0.05 % topical cream 1 applic TOPICAL PRN PRN g 12/21/20 [History Last Taken Unknown] nystatin 100,000 unit/gram topical powder 1 applic TOPICAL BID 12/21/20 [History Last Taken 04/05/21] ondansetron 4 mg disintegrating tablet 4 mg PO Q8H PRN 12/21/20 [History Last Taken Unknown] pitavastatin calcium 4 mg tablet 4 mg PO QHS tab 12/21/20 [History Last Taken 04/04/21] Eliquis 5 mg PO BID 03/22/21 [History Last Taken 04/05/21] beclomethasone dipropionate 1 inh INHALATION BID 03/22/21 [History Last Taken 04/05/21] budesonide-formoterol 2 puff INHALATION BID 03/22/21 [History Last Taken 04/05/21] furosemide 20 mg PO BIDCM 03/22/21 [History Last Taken 04/05/21] ipratropium-albuterol 3 ml INHALATION BID 03/22/21 [History Last Taken 04/05/21] tizanidine 4 mg PO Q8H PRN 03/22/21 [History Last Taken 04/04/21] cyanocobalamin (vitamin B-12) [Vitamin B-12] 100 mcg PO DAILY 04/05/21 [History Last Taken 04/05/21] melatonin 10 mg PO QHS 04/05/21 [History Last Taken 04/04/21] oxycodone-acetaminophen [Percocet] 1 tab PO Q6H PRN 04/05/21 [History Last Taken 04/05/21] pregabalin 150 mg PO BID 04/05/21 [History Last Taken 04/05/21] diltiazem HCl 240 mg PO DAILY 04/06/21 [History Last Taken Unknown] Allergy/AdvReac Type Severity Reaction Status Date / Time clindamycin Allergy Rash Verified 04/05/21 19:00 erythromycin base Allergy Rash Verified 04/05/21 19:00 [Erythromycin Base] omalizumab [From Xolair] Allergy Chest Verified 04/05/21 19:00 tightness Penicillins Allergy Rash Verified 04/05/21 19:00 sulfamethoxazole Allergy Chest Verified 04/05/21 19:00 [From Bactrim] tightness trimethoprim [From Bactrim] Allergy Chest Verified 04/05/21 19:00 tightness Sulfa (Sulfonamide AdvReac Unknown Unknown Verified 04/05/21 19:00 Antibiotics) Family History Father Heart disease Diabetes CAD (coronary artery disease) Mother CAD (coronary artery disease) CVA (cerebral vascular accident) Diabetes Brother CAD (coronary artery disease) CVA (cerebral vascular accident) Diabetes Unknown Cancer Grandmother CVA (cerebral vascular accident) Diabetes Grandfather CVA (cerebral vascular accident) Grandmother Myocardial infarction Brother Diabetes Sister Diabetes Surgical History H/O lumbosacral spine surgery History of section History of hernia repair History of left heart catheterization (LHC) (~01/19/21) History of neck surgery History of rotator cuff surgery Hx of appendectomy Social History household members: spouse housing: apartment pets and animals: Yes Smoking Status: Never smoker second hand exposure: No alcohol intake: current alcohol intake frequency: a few times a week substance use type: does not use caffeine: No what type of physical activity do you participate in: none do you feel safe at home: Yes Physical Exam Const alert, oriented x3, no apparent distress and well nourished General Appearance: cooperative and well developed HEENT normocephalic and head/scalp atraumatic Eyes PERRL Neck supple and no JVD Lymph Lymphatic: no lymphadenopathy noted Resp normal respiratory effort and normal air movement Extremity no clubbing, cyanosis or edema Neuro Neuro Narrative: Gait is antalgic range of motion of the lumbar spine is decreased to approximately 60 degrees with flexion and less than 15 degrees with extension lateral rotation with increased pain worse to the left positive Spurling test on the left L5 distribution decreased sensation on the left lower extremity reflexes are 1+ bilaterally and equal positive bilateral facet challenge test worse on the left Psych affect normal and denies homicidal ideation Appearance: appropriate Lab / Micro Data Result Diagrams: 04/09/21 05:16 04/09/21 05:16 Labs: Laboratory Results - last 24 hr 04/09/21 04/09/21 04/10/21 16:45 22:03 06:50 POC Glucose 141 H 141 H 125 H 04/10/21 11:54 POC Glucose 138 H Micro: Microbiology 04/10/21 11:50 SARS-CoV-2 Antigen (Rapid) - Final Mucosa - Nose
--- NOTE | 2021-04-10 15:56 | OP.PCM_ITS ---
Report of Operation Date of Procedure: 04/10/21 Pre-Operative Diagnosis: Lumbosacral radiculopathy, acute low back pain with le ft-sided sciatica Post-Operative Diagnosis: Lumbosacral radiculopathy, acute low back pain with left-sided sciatica Surgery/Procedure Performed:: Diagnostic/therapeutic caudal epidural steroid injection Type of Anesthesia: MAC Estimated Blood Loss (mL): Minimal Description of Procedure: DESCRIPTION OF PROCEDURE: History and physical of today was reviewed. Risks and benefits of the procedure were explained. The patient understood and agreed to proceed. Informed consent was obtained. IV inserted per routine protocol. The patient was taken to the operating room and placed in the prone position with a pillow positioned underneath the abdomen. The lower back and tailbone area was prepped and draped in a sterile fashion using iodine x3. Under fluoroscopy guidance on a lateral view, the caudal space was identified. The skin and subcutaneous tissue was anesthetized with approximately 3 mL of 1% lidocaine using a 25-gauge regular needle. Under direct visualization with fluoroscopy, using a 22-gauge 3-1/2-inch spinal needle, the needle was advanced via the skin through the sacral hiatus. The tip of the needle was passed through the sacrococcygeal ligament and advanced to approximately S4 area. After negative aspiration of blood or CSF, a total of 3 mL of contrast was injected to confirm correct placement of the needle as well as cephalad spread. The spread was followed to approximately L5 area. After confirmation on AP as well as lateral view and repeated negative aspiration, a total of 15 mL of preservative-free 0.125% Marcaine with 80 mg of Depo-Medrol was injected easily. The needle was then removed intact. The patient experienced no sign or symptoms of intrathecal or intravascular injection. The patient experienced no paresthesia. The procedure was completed without any apparent difficulty or any complications. The patient appeared to tolerate it well. ASSESSMENT AND PLAN: This is a 60-year-old female with lumbosacral radiculopathy, acute low back pain with left-sided sciatica status post diagnostic/therapeutic caudal epidural steroid injection, patient will continue her current medications, patient will follow in approximately 2 weeks for reevaluation. Complications None
--- NOTE | 2021-04-10 17:06 | NURSING ---
Nurse Alice at the [facility], asks to phone and ask for B [facility] to inform of time of transport. [phone]
[2021-04-10 18:01] LABS: Bedside Glucose 118 mg/dL (70-110)
[2021-04-10] MEDS: 0.9% Saline Lock 10 ML Syringe IV (18:38)
[2021-04-10] MEDS: Aspirin E.C. 81 MG Tablet PO (21:30)
[2021-04-10] MEDS: Fenofibrate 145 MG Tablet 72.5 MG PO (21:30)
[2021-04-10] MEDS: MELATONIN 10 MG TABLET PO (21:30)
[2021-04-10] MEDS: Atorvastatin Calcium 20 MG Tablet PO (21:30)
[2021-04-10] MEDS: Nystatin Powder 15gm Bottle 1 APPLIC TOPICAL (21:31)
[2021-04-10 22:50] LABS: Bedside Glucose 127 mg/dL (70-110)
[2021-04-11] VITALS (8 sets, daily range): BP systolic 131–148; BP diastolic 68–78; PULSE 88–93; RESP 12–20; TEMP 36.3–36.8; O2SAT 93–95
[2021-04-11 06:50] LABS: Bedside Glucose 144 mg/dL (70-110)
[2021-04-11] MEDS: Ipratropium/Albuterol Sulfate 3 ML AMPUL.NEB INHALATION (07:24)
[2021-04-11] MEDS: Budesonide Respules 0.5 MG/2 ML AMPUL.NEB. INHALATION (07:24)
[2021-04-11] MEDS: Empagliflozin 25 MG Tablet PO (08:13)
[2021-04-11] MEDS: dilTIAZem CD 240 MG Capsule PO (08:13)
[2021-04-11] MEDS: Furosemide 20 MG Tablet PO (08:13)
[2021-04-11] MEDS: Pantoprazole Sodium 40 MG Tablet PO (08:13)
[2021-04-11] MEDS: Docusate Sodium 100 MG Capsule PO (08:13)
[2021-04-11] MEDS: FLUoxetine 20 MG Capsule 40 MG PO (08:13)
[2021-04-11] MEDS: Lisinopril 20 MG Tablet PO (08:13)
[2021-04-11] MEDS: Montelukast 10 MG Tablet PO (08:13)
[2021-04-11] MEDS: Nystatin Powder 15gm Bottle 1 APPLIC TOPICAL (08:14)
[2021-04-11] MEDS: Potassium Chloride Oral Tablet 10 MEQ PO (08:14)
[2021-04-11] MEDS: Pregabalin 75 MG Capsule 150 MG PO (08:17)
--- NOTE | 2021-04-11 09:57 | CASEMGMT ---
Patient is ready for discharge to [place]. She was supposed to go yesterday, however her blood pressure was low so she did not go. LUANNE arranged for patient to get picked up at noon via [employer] van. 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 Plan: d/c to [place] under skilled level of care on a convalescent stay. [facility] transported via [employer] van. Brittany ARNDT
--- NOTE | 2021-04-11 11:06 | PCM.PN.HOSP ---
Documented by User: Wilder CARSON 04/11/21 11:12 Subjective Subjective Patient is a 60-year-old female is comfortably in bed, alert and orient x3. Patient still endorses mild left lower extremity weakness and numbness. Denies chest pain, shortness of breath, palpitations, fever, chills, N/V/D. Objective Data Objective Data Vital Signs: Vital Signs Temp Pulse Resp BP Pulse Ox 97.6 F L 93 16 148/78 H 93 04/11/21 08:20 04/11/21 08:20 04/11/21 08:20 04/11/21 08:20 04/11/21 08:20 Oxygen Flow Rate (L/min) 1 Oxygen Delivery Method Room Air Weight: 264 lb 1.82 oz Body Mass Index (BMI) 45.1 Intake & Output: Intake and Output for Last 24 Hours 04/09/21 04/10/21 04/11/21 23:59 23:59 23:59 Intake Total 620 / 620 1720 / 2060 1330 / 1330 Output Total 3400 / 3400 300 / 700 400 / 400 Balance -2780 / -2780 1420 / 1360 930 / 930 Lab / Micro Data Result Diagrams: 04/09/21 05:16 04/09/21 05:16 Labs: Laboratory Results - last 24 hr 04/10/21 04/10/21 04/10/21 11:54 17:52 21:28 POC Glucose 138 H 118 H 127 H 04/11/21 06:25 POC Glucose 144 H Micro: Microbiology 04/10/21 11:50 Mucosa - Nose SARS-CoV-2 Antigen (Rapid) - Final Physical Exam Const alert, oriented x3 and no apparent distress HEENT head/scalp atraumatic and moist oral mucous membranes Head and Scalp: normocephalic Eyes EOMs intact bilaterally and conjunctivae normal Neck no lymphadenopathy, supple and no JVD Resp normal respiratory effort, no retractions, no use of accessory muscles and clear to auscultation bilaterally Cardio regular rate, regular rhythm, no murmurs and no JVD GI normal to inspection, nondistended, normoactive bowel sounds, soft to palpation and non-tender Extremity normal to inspection and no clubbing, cyanosis or edema Extremity Narrative: Patient endorses left lower extremity weakness/numbness. Skin no rashes or lesions noted, no wounds, skin turgor normal and no jaundice Neuro CN's II-XII intact bilaterally Psych affect normal Assessment & Plan Assessment/Plan (1) Type 2 diabetes mellitus: QUALIFIERS: Diabetes mellitus complication status: with unspecified complications Diabetes mellitus longterm insulin use: with longterm use Qualified Code(s): E11.8 - Type 2 diabetes mellitus with unspecified complications; Z79.4 - snf (current) use of insulin (2) Morbid obesity: (3) COPD (chronic obstructive pulmonary disease): QUALIFIERS: COPD type: unspecified COPD Qualified Code(s): J44.9 - Chronic obstructive pulmonary disease, unspecified (4) Essential hypertension: (5) Severe aortic valve stenosis: (6) Weakness: (7) Aortic stenosis: PLAN: This progress report is being generated on 04/11/2021, however is intended for 04/10/2021. Discharge was delayed due to hypotension after spinal injection. Day 6: See subjective patient presentation. Discharge planning: Patient to be discharged to the [place] halfway facility after spinal injection. 1) LLE weakness & numbness Dr. Go to perform spinal injection for relief of left lower extremity weakness/numbness. Brain MRI only demonstrated chronic involutional changes of the brain and demonstrated no acute infarct. Head and neck CT-A were unremarkable. Brain CT demonstrated no acute findings, only showing right parotid mass/enlarged nodule. On my exam patient still endorses mild weakness and numbness of the left lower extremity, however this is improved from yesterday. Left lower extremity strength is a 3/5 on my examination. Plan; PT/OT eval pending, patient is agreeable to SNF at discharge. 2) aortic stenosis Stable, patient follows up with me the [facility] and has scheduled aortic valve replacement on April 19, 2021. 3) DM2 Continue home basal insulin, sliding scale insulin ordered. DVT prophylaxis - on home Xarelto. Patient seen by Wilder Schroeder PA-C, under the supervision of Dr. Ross. Documented by User: Dr. Jean Ross, 04/11/21 18:18 Objective Data Lab / Micro Data Result Diagrams: 04/09/21 05:16 04/09/21 05:16 Charges/Coding Addendum Addendum: The date of this entry should read 04/10/2021: Patient was seen and examined today independently of Wilder Schroeder, initially it was felt that she could be discharged today after her caudal epidural steroid injection, however, patient was hypotensive after the procedure when she returned back to PCU and she ended up staying in the hospital. On examination she appeared in good health and spirits, she does not appear to be in any distress. Vital signs as documented. Skin warm and dry and without overt rashes. Neck without JVD, thyroid appears normal, trachea is midline, neck is supple. Lungs clear, normal air movement was noted. Heart exam notable for regular rhythm, normal sounds and absence of murmurs, rubs or gallops. Abdomen unremarkable and without evidence of organomegaly, masses, or abdominal aortic enlargement, bowel sounds are present in all 4 quadrants, no abdominal tenderness was noted. Extremities nonedematous, no cyanosis was noted, no clubbing was noted. Neuro: Cranial nerves II through XII are grossly intact, no focal motor deficits were noted, sensation to light touch and pinprick is intact, motor exam 5/5 throughout. Psych: Patient is alert and oriented x3, she does not appear anxious or depressed, she does not appear agitated. Patient remains in the hospital at this time, she will be reevaluated on 04/11/2021 for possible discharge to an extended care facility. Visit Charges Inpatient E&M: 75899 Subs Hosp L2
[2021-04-11] MEDS: Insulin Lispro 100 UNIT/ML INSULN.PEN SC (11:07)
[2021-04-11 11:20] LABS: Bedside Glucose 151 mg/dL (70-110)
--- NOTE | 2021-04-11 11:30 | NURSING ---
report called to JOSS Juan at [facility] for discharge.
== END 2021-04-11 12:02 | disposition skilled nursing facility (03) | DRG 552 ==
LOC: ED 20:24 → PCU 22:38
PROVIDERS: Anesthesiology Pain Medicine; Internal Medicine; Physician Assistant; Emergency Provider Emergency Medicine; PCP Internal Medicine; Visit Provider Internal Medicine
PROC: 3E0S3BZ Introduction of Anesthetic Agent into Epidural Space, Percutaneous Approach (ICD-10-PCS; CPT 62282; principal; 2021-04-10 16:10)
DX: M54.17 Radiculopathy, lumbosacral region (principal); G81.94 Hemiplegia, unspecified affecting left nondominant side; I50.30 Unspecified diastolic (congestive) heart failure; Z68.42 Body mass index [BMI] 45.0-49.9, adult; R29.810 Facial weakness; K21.9 Gastro-esophageal reflux disease without esophagitis; E66.01 Morbid (severe) obesity due to excess calories; E11.9 Type 2 diabetes mellitus without complications; I35.0 Nonrheumatic aortic (valve) stenosis; I65.23 Occlusion and stenosis of bilateral carotid arteries; Z79.4 Long term (current) use of insulin; Z79.82 Long term (current) use of aspirin; Z79.01 Long term (current) use of anticoagulants; R29.6 Repeated falls; I25.10 Atherosclerotic heart disease of native coronary artery without angina pectoris; G47.33 Obstructive sleep apnea (adult) (pediatric); I11.0 Hypertensive heart disease with heart failure; J44.9 Chronic obstructive pulmonary disease, unspecified; Z79.83 Long term (current) use of bisphosphonates; Z82.3 Family history of stroke; Z82.49 Family history of ischemic heart disease and other diseases of the circulatory system; Z83.3 Family history of diabetes mellitus; Z86.711 Personal history of pulmonary embolism; Z86.718 Personal history of other venous thrombosis and embolism; Z86.73 Personal history of transient ischemic attack (TIA), and cerebral infarction without residual deficits; Z87.892 Personal history of anaphylaxis; Z88.0 Allergy status to penicillin; Z88.1 Allergy status to other antibiotic agents; Z88.2 Allergy status to sulfonamides; Z90.49 Acquired absence of other specified parts of digestive tract; Z95.2 Presence of prosthetic heart valve
CPT/HCPCS: 36415; 64483; 70450; 70496; 70498; 70551; 71045; 72148; 77003; 80048; 80053; 80061; 82962; 84484; 85025; 85610; 85730; 87426; 92523; 93005; 93306; 94002; 94003; 94640; 94762; 97110; 97162; 97166; 97530; 97535; 97802; 99285; J7040; J7120; Q9957; Q9967; A4216; C8929; J2405; J3490

== ENCOUNTER → 2021-04-26 13:58 | Outpatient (CLI) | payer MEDICARE, MEDICAID, SELFPAY ==
[2021-04-10 11:58] VITALS: BMI 45.1
--- NOTE | 2021-04-26 14:02 | VDLE_ITS ---
Reason For Study: PAIN RIGHT GSV is normal. CFV is compressible, spontaneous, phasic, competent and demonstrates normal augmentation. FV is compressible, spontaneous, phasic, competent and demonstrates normal augmentation. POP V is compressible, spontaneous, phasic, competent and demonstrates normal augmentation. T/P Trunk is compressible. PTV is compressible. RT PerV is compressible. RT GASTROCNEMIUS V is NON-compressible. NON-vascular structure measuring 1.3 x 1.4 cm not in RT POP Fossa space. Procedure This is a venous duplex using B-mode, color flow and spectral Doppler. Exam performed in department. The exam was diagnostic. A preliminary report was called and/or faxed to Dr. Sorai @ [phone] @ 2:45 pm. VL/Venous Duplex US, Unilateral Interpretation Summary Deep venous thrombosis right gastrocnemius vein. No evidence for proximal progr ession. Patent compressible right great saphenous vein. None vascular structure right popliteal space measuring 1.3 x 1.4 cm diameter. Clinical correlation would be appropriate. Ordering Physician: Ophelia Soria Referring Physician: Ophelia Soria Performed By: Marta Begum RVT, RDCS and Student
== END ==
PROVIDERS: PCP Internal Medicine; Referring Provider Internal Medicine; Visit Provider Internal Medicine
DX: I82.461 Acute embolism and thrombosis of right calf muscular vein (principal)
CPT/HCPCS: 93971

== ENCOUNTER 2021-05-02 13:13 | Emergency (ER) | payer MEDICARE, MEDICAID, SELFPAY ==
[2021-04-10 11:58] VITALS: BMI 45.1
[2021-05-02 13:15] VITALS: BP 151/77; PULSE 77; RESP 12; TEMP 36.8; O2SAT 93; BMI 46.9
--- NOTE | 2021-05-02 13:40 | CT_ITS ---
STUDY: CTA CHEST REASON FOR EXAM: Female, 60 years old. Chest pain RADIATION DOSAGE (If Supplied By Facility): CTDIvol = ( 21.43 ) mGy, DLP = ( 694.47 ) mGycm TECHNIQUE: The examination was performed with the intravenous administration of IV 100mL Isovue-370. Post-processing of the angiographic images was performed, with multiplanar reformation and 3D reconstruction. Individualized dose optimization techniques were used for this CT. COMPARISON: Comparison is made with prior chest radiograph done earlier in the day as well as prior CT scan of the thorax dated 07/24/2015. FINDINGS: Normal enhancement of the main pulmonary artery and right and left pulmonary arteries. Normal enhancement of the bilateral peripheral pulmonary arteries. There is no demonstrated pulmonary embolism. Normal thoracic aorta and visualized great vessels. There is no demonstrated aortic dissection. There are calcifications of the coronary arteries. Aortic valve replacement. There are visualized mediastinal lymph nodes, which are within normal size limits, and with normal morphology. Normal hilar regions. Normal visualized trachea and bronchi. The lungs are well expanded. Normal pulmonary parenchyma. Normal pleura. Normal chest wall structures. There are degenerative changes of thoracic spine. There is evidence of fusion of the lower cervical spine. Fatty infiltration of the liver. CT/CTA Chest W/WO Contrast IMPRESSION: No evidence of pulmonary embolism. Prior aortic valve replacement. Electronically Signed: Lon Fuchs MD at 14:49 EDT , Service support ,
--- NOTE | 2021-05-02 13:41 | EKG12_ITS ---
Test Reason : CP Blood Pressure : / mmHG Vent. Rate : 078 BPM Atrial Rate : 078 BPM P-R Int : 258 ms QRS Dur : 130 ms QT Int : 406 ms P-R-T Axes : 050 -30 019 degrees QTc Int : 462 ms Sinus rhythm with 1st degree A-V block Left axis deviation Right bundle branch block Abnormal ECG Confirmed by ERIC MAURICIO, LISA ([id number]), society editor LEIGHTON STALLWORTH ([id number]) on 05/04/2021 10:11:35 AM Referred By: KIMI/EDD Confirmed By:LISA REYES MD
--- NOTE | 2021-05-02 13:42 | EDS_ITS ---
HPI History of Present Illness Chief Complaint: Chest Pain Detail of Chief Complaint: Chest pain that started out half an hour ago. Informant: patient Narrative Narrative: Patient states that she was at the extended care facility and had jus t finished walking when she was feeling somewhat short of breath. She transitioned from the wheelchair to her bed when she felt a sudden sharp stabbing pain in the center of her chest that radiated through to her back. Pain lasted about 30 to 50 seconds and then resolved. She has had intermittent sharp stabbing pains since that time. Patient had a TAVR procedure on April 19 at [facility]. Patient subsequently found to have a DVT in her leg and is currently on Eliquis. Patient having intermittent sharp stabbing pains that last 36 to 45 seconds but she thinks that they are becoming less frequent now. Prior Similar Symptoms: No PFSH PFSH Medical History (Updated 05/02/21 @ 15:[address] Megha Rodrigues, DO) Asthma Atherosclerotic heart disease of [place] coronary artery without angina pectoris Back pain with sciatica Bilateral carotid bruits Body mass index 45.0-49.9, adult Carotid artery disease COPD (chronic obstructive pulmonary disease) Diastolic heart failure Essential hypertension GERD (gastroesophageal reflux disease) History of DVT (deep vein thrombosis) History of pulmonary embolism Morbid obesity Nonrheumatic aortic (valve) stenosis CHELSEY treated with BiPAP Personal history of anaphylaxis Type 2 diabetes mellitus Home Medications fluoxetine 40 mg PO DAILY 01/26/14 [History Last Taken 04/05/21] aspirin 81 mg PO QHS 01/06/16 [History Last Taken 04/04/21] docusate sodium 100 mg PO BID 01/06/16 [History Last Taken 04/05/21] ogpzijpr-puu-hvsa-FA-lutein 1 ea PO DAILY 01/06/16 [History Last Taken 04/05/21] omeprazole 40 mg PO DAILY 01/06/16 [History Last Taken 04/05/21] potassium chloride 10 meq PO BID 01/06/16 [History Last Taken 04/05/21] [id number]-S7-bwp-bxcu-cml-siip-boron 1 ea PO DAILY 05/27/16 [History Last Taken 04/05/21] fenofibrate nanocrystallized 72.5 mg PO QHS 04/26/19 [History Last Taken 04/04/21] ergocalciferol (vitamin D2) 1,250 mcg (50,000 unit) capsule 50,000 unit PO WE 08/09/19 [History Last Taken 04/04/21] moexipril 15 mg tablet 15 mg PO BID 08/09/19 [History Last Taken 04/05/21] trazodone 50 mg tablet 50 mg PO QHS 08/09/19 [History Last Taken 04/04/21] dapagliflozin 10 mg PO DAILY 11/22/19 [History Last Taken 04/05/21] insulin degludec 50 unit SQ BID 11/22/19 [History Last Taken 04/05/21] semaglutide 1 mg SQ TH 11/22/19 [History Last Taken 04/04/21] epinephrine 0.3 mg/0.3 mL injection, auto-injector 0.3 mg IM X1 PRN #1 ea 01/18/20 [Rx Last Taken Unknown] albuterol sulfate 2.5 mg INHALATION Q2H PRN PRN #180 ml 04/24/20 [Rx Last Taken 03/22/21] albuterol sulfate 90 mcg/actuation aerosol inhaler 2 inh INHALATION Q4H PRN PRN #18 g 04/24/20 [Rx Last Taken Unknown] tiotropium bromide 18 mcg capsule with inhalation device 18 mcg INHALATION DAILY #1 inh 04/24/20 [Rx Last Taken 04/05/21] montelukast 10 mg tablet 10 mg PO DAILY #30 tab 12/07/20 [Rx Last Taken 04/05/21] alendronate 70 mg tablet 70 mg PO WE tab 12/21/20 [History Last Taken 04/04/21] desoximetasone 0.05 % topical cream 1 applic TOPICAL PRN PRN g 12/21/20 [History Last Taken Unknown] nystatin 100,000 unit/gram topical powder 1 applic TOPICAL BID 12/21/20 [History Last Taken 04/05/21] ondansetron 4 mg disintegrating tablet 4 mg PO Q8H PRN 12/21/20 [History Last Taken Unknown] pitavastatin calcium 4 mg tablet 4 mg PO QHS tab 12/21/20 [History Last Taken 04/04/21] Eliquis 5 mg PO BID 03/22/21 [History Last Taken 04/05/21] beclomethasone dipropionate 1 inh INHALATION BID 03/22/21 [History Last Taken 04/05/21] budesonide-formoterol 2 puff INHALATION BID 03/22/21 [History Last Taken 04/05/21] furosemide 20 mg PO BIDCM 03/22/21 [History Last Taken 04/05/21] ipratropium-albuterol 3 ml INHALATION BID 03/22/21 [History Last Taken 04/05/21] tizanidine 4 mg PO Q8H PRN 03/22/21 [History Last Taken 04/04/21] cyanocobalamin (vitamin B-12) [Vitamin B-12] 100 mcg PO DAILY 04/05/21 [History Last Taken 04/05/21] melatonin 10 mg PO QHS 04/05/21 [History Last Taken 04/04/21] oxycodone-acetaminophen [Percocet] 1 tab PO Q6H PRN 04/05/21 [History Last Taken 04/05/21] pregabalin 150 mg PO BID 04/05/21 [History Last Taken 04/05/21] diltiazem HCl 240 mg PO DAILY 04/06/21 [History Last Taken Unknown] Allergy/AdvReac Type Severity Reaction Status Date / Time clindamycin Allergy Rash Verified 05/02/21 13:14 erythromycin base Allergy Rash Verified 05/02/21 13:14 [Erythromycin Base] omalizumab [From Xolair] Allergy Chest Verified 05/02/21 13:14 tightness Penicillins Allergy Rash Verified 05/02/21 13:14 sulfamethoxazole Allergy Chest Verified 05/02/21 13:14 [From Bactrim] tightness trimethoprim [From Bactrim] Allergy Chest Verified 05/02/21 13:14 tightness Sulfa (Sulfonamide AdvReac Unknown Unknown Verified 05/02/21 13:14 Antibiotics) Family History Father Heart disease Diabetes CAD (coronary artery disease) Mother CAD (coronary artery disease) CVA (cerebral vascular accident) Diabetes Brother CAD (coronary artery disease) CVA (cerebral vascular accident) Diabetes Unknown Cancer Grandmother CVA (cerebral vascular accident) Diabetes Grandfather CVA (cerebral vascular accident) Grandmother Myocardial infarction Brother Diabetes Sister Diabetes Surgical History (Updated 05/02/21 @ 13:44 by Fatoumata Tucker) Aortic valve replaced H/O lumbosacral spine surgery History of section History of hernia repair History of left heart catheterization (LHC) (~01/19/21) History of neck surgery History of rotator cuff surgery Hx of appendectomy Social History household members: spouse housing: apartment pets and animals: Yes Smoking Status: Never smoker second hand exposure: No alcohol intake: current alcohol intake frequency: a few times a week substance use type: does not use caffeine: No what type of physical activity do you participate in: none do you feel safe at home: Yes ROS ROS ED Review of Systems ROS Unobtainable: other Constitutional Constitutional ED: Reports lethargy; Denies chills, fever(s), sweats or weight loss Eyes Eyes: Denies blurry vision, change in vision or diplopia ENT ENT ED: Denies rhinorrhea or sore throat Cardiovascular Cardiovascular: Reports chest pain; Denies orthopnea Respiratory/Chest Respiratory/Chest: Reports dyspnea and dyspnea on exertion; Denies cough, orthopnea or sputum Gastrointestinal Gastrointestinal: Denies abdominal pain, diarrhea, nausea or vomiting Genitourinary Genitourinary ED: Denies dysuria, hematuria or urinary frequency Musculoskeletal Musculoskeletal: Denies arthralgias, back pain, myalgias or neck pain Integumentary Denies abscess, Abrasions or rash Neurologic Neurologic: Denies headache(s) or weakness Psychiatric Psychiatric: Denies anxiety, depression or suicidal thoughts Endocrine Endocrinology: Denies polydipsia, polyphagia or polyuria Hematologic/Lymphatic Hematologic/Lymphatic: Denies easy bleeding, easy bruising or lymphadenopathy Allergic/Immunologic Allergic/Immunologic ED: Denies mouth swelling, tongue swelling or urticaria EXAM Physical Exam Const Vital Signs: 05/02/21 13:15 05/02/21 13:45 05/02/21 14:01 Temperature 98.3 F Temperature Source Temporal Pulse Rate 77 Respiratory Rate 12 Respiratory Effort Normal Non-Labored Blood Pressure 151/77 H Blood Pressure Mean 101 Pulse Ox 93 Oxygen Delivery Method Room Air Nasal Cannula Oxygen Flow Rate (L/min) 2 Positive well nourished and well developed General Appearance ED: well developed and NAD HEENT Reports TM's clear and moist mucous membranes normocephalic and atraumatic; Negative for trauma or tenderness Tympanic Membrane ED: Yes TM's clear Eyes PERRL and EOMs intact bilaterally General Eye ED: Negative for pale conjunctiva or scleral icterus Neck no lymphadenopathy, supple and no JVD General: Negative for tenderness Chest Wall inspection of chest normal and palpation of chest normal Chest: Negative for tenderness Resp normal respiratory effort and clear to auscultation bilaterally Effort and Inspection: Negative for respiratory distress or pain with movement Auscultation: Negative for rhonchi, wheezes or diminished lung sounds Cardio regular rate, regular rhythm, S1 normal heart sound, S2 normal heart sound and no murmurs Peripheral Pulses: pulses 2+ throughout GI normal to inspection, nondistended, normoactive bowel sounds, soft to palpation, non-tender, non-distended and no masses Back/Spine no CVA tenderness and no thoracic nor lumbar tenderness Extremity normal to inspection General Extremety ED: Negative for edema General Extremity: Negative for edema Neuro oriented x3, CN's II-XII intact bilaterally, no sensory deficits noted and gait normal Sensorium / Orientation: awake, alert, oriented to person, oriented to place and oriented to time Motor Exam: strength 5/5 throughout and strength abnormal Psych mental status grossly normal Skin no rashes or lesions noted and no wounds MDM MDM MDM Narrative Medical decision making narrative: Patient placed on a campus monitor on arrival. She was medicated with morphine and Zofran for pain. Episodes became less frequent and further apart. Patient's work-up in the department unremarkable. She had a heart cath within the last 3 to 4 months that did not show any significant coronary obstructions or blockages. I do not feel she is having acute coronary syndrome. I discussed case with patient's specialty department supervisor Dr. Jeronimo Izquierdo and given her negative work-up in the department including CTA of the chest at this point is felt she can be discharged back to the snf and he will see her later this week as she has an appointment with him. Lab Data Attestation: I reviewed the patient's lab results. Labs: Laboratory Results - last 24 hr 05/02/21 05/02/21 13:28 13:28 WBC 8.3 RBC 4.78 Hgb 14.1 Hct 44.3 MCV 92.7 MCH 29.5 MCHC 31.8 L RDW Std Deviation 47.4 H RDW Coeff of Carmencita 13.9 Plt Count 223 MPV 11.1 Immature Gran % (Auto) 0.700 Neut % (Auto) 64.1 Lymph % (Auto) 23.9 Potter % (Auto) 8.5 Eos % (Auto) 1.7 Baso % (Auto) 1.1 H Absolute Neuts (auto) 5.3 Absolute Lymphs (auto) 1.99 Nucleated RBC % 0 Sodium 139 Potassium 3.8 Chloride 105 Carbon Dioxide 28.0 Anion Gap 6 BUN 12 Creatinine 0.54 L Estim Creat Clear Calc 94.47 Est GFR (MDRD) Af Amer 147 Est GFR (MDRD) Non-Af 121 BUN/Creatinine Ratio 22.1 H Glucose 123 H Calcium 8.9 Troponin I High Sens 10.2 Radiography Chest X-Ray - ED: 1 View Diagnostic Testing: Radiology Impression Chest CTA 05/02/21 13:40 IMPRESSION: No evidence of pulmonary embolism. Prior aortic valve replacement. Electronically Signed: Lon Fuchs MD at 14:49 EDT , Service support , Chest X-Ray 05/02/21 14:13 IMPRESSION: No acute abnormality is seen. Electronically Signed: Lon Fuchs MD at 14:46 EDT , Service support , 1 view chest x-ray obtained showed nothing acute as interpreted by myself. EKG Initial EKG: Attestation: I personally reviewed and interpreted this EKG as follows: Comments: Sinus rhythm with a ventricular rate of 78 bpm with a first- degree AV block and right bundle branch block. Prior: Unchanged Discharge Plan Triage Chief Complaint: Chest Pain ED Provider: Megha Rodrigues Dx/Rx/DC Orders Clinical Impression: Chest pain Instructions: ED Chest Pain, Uncertain Cause Prescriptions: No Action moexipril 15 mg tablet 15 mg PO BID RF: 0 ergocalciferol (vitamin D2) 50,000 unit capsule 50,000 unit PO WE RF: 0 trazodone 50 mg tablet 50 mg PO QHS RF: 0 albuterol sulfate 2.5 mg /3 mL (0.083 %) solution for nebulization 2.5 mg INHALATION Q2H PRN PRN (Reason: dyspnea, wheezing) Qty: 180 RF: 6 tiotropium bromide 18 mcg capsule, w/inhalation device 18 mcg INHALATION DAILY Qty: 1 RF: 6 albuterol sulfate 90 mcg/actuation HFA aerosol inhaler 2 inh INHALATION Q4H PRN PRN (Reason: Sob &/Or Wheezing) Qty: 18 RF: 6 montelukast 10 mg tablet 10 mg PO DAILY Qty: 30 RF: 6 alendronate 70 mg tablet 70 mg PO WE RF: 0 pitavastatin calcium 4 mg tablet 4 mg PO QHS RF: 0 desoximetasone 0.05 % cream 1 applic TOPICAL PRN PRN (Reason: Itching) RF: 0 ondansetron 4 mg tablet,disintegrating 4 mg PO Q8H PRN (Reason: Nausea) RF: 0 nystatin 100,000 unit/gram powder 1 applic TOPICAL BID RF: 0 fluoxetine 20 MG capsule 40 mg PO DAILY RF: 0 aspirin 81 MG tablet,delayed release (DR/EC) 81 mg PO QHS RF: 0 docusate sodium 100 MG capsule 100 mg PO BID RF: 0 ayxvmhvj-kms-crdz-FA-lutein 1 EACH tablet 1 ea PO DAILY RF: 0 omeprazole 40 MG capsule 40 mg PO DAILY RF: 0 potassium chloride 10 MEQ tablet 10 meq PO BID RF: 0 Jg-X0-qhw-uyje-xha-svkr-boron 1 EACH tablet,chewable 1 ea PO DAILY RF: 0 fenofibrate nanocrystallized 145 MG tablet 72.5 mg PO QHS RF: 0 insulin degludec 100 UNIT/ML solution 50 unit SQ BID RF: 0 dapagliflozin 10 MG tablet 10 mg PO DAILY RF: 0 semaglutide 1 MG/0.75 ML pen injector 1 mg SQ TH RF: 0 tizanidine 4 mg Capsule 4 mg PO Q8H PRN (Reason: muscle relaxer) RF: 0 Eliquis 5 mg Tablet 5 mg PO BID RF: 0 furosemide 40 MG tablet 20 mg PO BIDCM RF: 0 ipratropium-albuterol 0.5 mg-3 mg(2.5 mg base)/3 mL solution for nebulization 3 ml INHALATION BID RF: 0 budesonide-formoterol 160-4.5 mcg/actuation HFA aerosol inhaler 2 puff INHALATION BID RF: 0 beclomethasone dipropionate 80 mcg/actuation HFA aerosol breath activated 1 inh inhalation BID RF: 0 oxycodone-acetaminophen [Percocet] 5-325 mg Tablet 1 tab PO Q6H PRN (Reason: Pain) RF: 0 cyanocobalamin (vitamin B-12) [Vitamin B-12] 100 mcg Tablet 100 mcg PO DAILY RF: 0 pregabalin 150 mg capsule 150 mg PO BID RF: 0 melatonin 10 mg Tablet 10 mg PO QHS RF: 0 diltiazem HCl 240 mg capsule,extended release 24hr 240 mg PO DAILY RF: 0 epinephrine 0.3 mg/0.3 mL auto-injector 0.3 mg IM X1 PRN (Reason: Anaphylaxis) Qty: 1 RF: 0 Primary Care Provider: Ophelia Soria Referrals: Ophelia Soria DO [Primary Care Provider] - Jeronimo Izquierdo MD [STAFF PHYSICIAN] - [facility] appointment Disposition Disposition: Home, Self Care
[2021-05-02] MEDS: Morphine 4 MG/ML Syringe IV (13:58)
[2021-05-02] MEDS: 0.9% Normal Saline 1,000 ML 150 ML IV (13:58)
[2021-05-02] MEDS: Ondansetron 4 MG/2 ML Vial IV (13:58)
[2021-05-02 13:59] LABS: Absolute Lymphocyte Count 1.99 X10^3/uL (0.83-4.51); Absolute Neutrophil Count 5.3 X10^3/uL (2.0-7.7); Basophil# 0.09 X10^3/uL; Basophil% 1.1 % (0-1); Eosinophil# 0.14 X10^3/uL; Eosinophils% 1.7 % (0-5); Hematocrit 44.3 % (37-47); Hemoglobin 14.1 g/dL (12.0-15.0); Lymphocyte # 1.99 X10^3/ul (0.83-4.51); Lymphocyte % 23.9 % (19-41); Mean Corp Hgb Conc 31.8 g/dL (32-36); Mean Corpuscular Hgb 29.5 pg (27.0-32.0); Mean Corpuscular Volume 92.7 fL (81-99); Mean Platelet Vol. 11.1 fl (6.2-12.0); Monocyte# 0.71 X10^3/uL; Monocyte% 8.5 % (0-10); NRBC Flagged by Analyzer 0 % (0-5); Neutrophil # 5.34 X10^3/uL (2.7-7.7); Neutrophil % 64.1 % (47-70); Platelet Count 223 K/mm3 (150-450); RBC Distribution Width CV 13.9 % (11.6-14.6); RBC Distribution Width SD 47.4 fl (35.1-43.9); Red Blood Count 4.78 M/mm3 (4.2-5.4); White Blood Count 8.3 K/mm3 (4.4-11.0)
[2021-05-02 14:11] LABS: Anion Gap 6 (5-15); BUN 12 mg/dL (7-18); BUN/Creat Ratio 22.1 RATIO (10-20); Calcium,Total 8.9 mg/dL (8.5-10.1); Chloride 105 mmol/L (98-107); Creatinine, Serum 0.54 mg/dL (0.55-1.02); EST Glomerular Filtration Rate 121 mL/min (>60); Est Glom Filt Rate - Afr Amer 147 mL/min (>60); Estimated Creatinine Clearance 94.47 ml/min; Glucose 123 mg/dL (74-106); Potassium 3.8 mmol/L (3.5-5.1); Sodium Level 139 mmol/L (136-145); Troponin-I HS 10.2 pg/mL (3.0-53.7)
--- NOTE | 2021-05-02 14:13 | RAD_ITS ---
STUDY: X-RAY CHEST REASON FOR EXAM: Female, 60 years old. Chest pain TECHNIQUE: Single AP portable view of the chest. COMPARISON: Comparison is made with prior study dated 04/05/2021. FINDINGS: EKG electrodes are seen to Mild elevation of the right hemidiaphragm. The lungs are clear. There is no demonstrated pleural abnormality. Normal size heart. Normal mediastinum and yulisa. Normal visualized pulmonary arteries. Normal visualized aortic arch and descending thoracic aorta. There are diffuse degenerative changes of the visualized thoracic spine. Prior fusion in the lower cervical spine. There is no demonstrated abnormality of the visualized soft tissue structures of the upper abdomen. RAD/Chest 1 View (Portable) IMPRESSION: No acute abnormality is seen. Electronically Signed: Lon Fuchs MD at 14:46 EDT , Service support ,
--- NOTE | 2021-05-02 15:52 | NURSING ---
CALLED [facility], ETA IS 90 MIN.
--- NOTE | 2021-05-02 17:02 | CHAPLAIN ---
Type of Pastoral Visit _x__ Initial Visit ___ Follow-up Visit ___ On-call Visit ___ General Patient Visit ___ Spiritual Assessment ___ Family Conference ___ Bereavement ___ Rapid Response ___ Code Blue ___ Other (describe below) Pastoral Care Referral From _x__ Patient ___ Family ___ Nurse ___ Physician ___ Motor Block Mechanic ___ Landfill Gas Collection Operator ___ Other (describe below) Sacrament/Intervention _x__ Active listening ___ Anointing ___ Adventist ___ Bereavement ___ Communion ___ Cathi exploration ___ ___ Life review _x__ Prayer ___ Reconciliation ___ Sacrament of Sick _x__ Supportive presence ___ Wedding ___ Other (describe below) Pastoral Comments patient is here from [facility] and no family is present; gave support, time to listen, and prayer as pt waits for discharge
[2021-05-02 17:45] VITALS: BP 112/77; PULSE 77; RESP 17; O2SAT 96
== END 2021-05-02 17:46 | disposition skilled nursing facility (03) ==
PROVIDERS: Emergency Provider Emergency Medicine; PCP Internal Medicine
DX: R07.9 Chest pain, unspecified (principal); I25.10 Atherosclerotic heart disease of native coronary artery without angina pectoris; I35.0 Nonrheumatic aortic (valve) stenosis; I11.0 Hypertensive heart disease with heart failure; I50.30 Unspecified diastolic (congestive) heart failure; I45.10 Unspecified right bundle-branch block; J44.9 Chronic obstructive pulmonary disease, unspecified; K21.9 Gastro-esophageal reflux disease without esophagitis; G47.33 Obstructive sleep apnea (adult) (pediatric); E11.9 Type 2 diabetes mellitus without complications; E66.01 Morbid (severe) obesity due to excess calories; Z68.42 Body mass index [BMI] 45.0-49.9, adult; Z95.2 Presence of prosthetic heart valve; Z79.01 Long term (current) use of anticoagulants; Z79.4 Long term (current) use of insulin; Z79.82 Long term (current) use of aspirin; Z79.899 Other long term (current) drug therapy; Z86.711 Personal history of pulmonary embolism; Z86.718 Personal history of other venous thrombosis and embolism
CPT/HCPCS: 71045; 71275; 80048; 84484; 85025; 93005; 96361; 96374; 96375; 99285; J7030; Q9967; J2405

== ENCOUNTER → 2021-06-04 12:58 | Outpatient (CLI) | payer MEDICARE, MEDICAID, SELFPAY ==
[2021-05-04 13:09] VITALS: BMI 46.9
--- NOTE | 2021-06-04 13:12 | PCM.CR.HP2 ---
CR - History & Physical - General Arrival date:: 06/04/21 Arrival time:: 13:14 Date of Referral:: 05/28/21 Date of CR Evaluation:: 06/04/21 Referring Physician: Dr. Jeronimo Izquierdo Primary Diagnosis: Heart valve replacement - History of Present Cardiac Event Onset Date: Enter Onset Date of cardiac illnesses in Comment field below Heart valve replacement or repair:: Yes - 04/19/2021 Were there any complications?: DVT of the RLE - Sleep Disorder Evaluation Hx of Sleep Apnea: Yes Do you snore loudly (louder than talking or can be heard through closed doors)?: No Do you often feel tired/ fatigued/ sleepy during daytime?: Yes Has anyone observed you stop breathing during sleep?: No History of Hypertension (for STOP score): Yes - Pt is on BiPAP STOP Results: Positive - Medications Home Medications: Ambulatory Orders Medication Instructions Recorded fluoxetine 40 mg PO DAILY 01/26/14 docusate sodium 100 mg PO BID 01/06/16 oquptqwa-jfb-yjls-FA-lutein 1 ea PO DAILY 01/06/16 omeprazole 40 mg PO DAILY 01/06/16 potassium chloride 10 meq PO BID 01/06/16 Xf-V3-qvh-ggiv-hnk-scec-boron 1 ea PO DAILY 05/27/16 fenofibrate nanocrystallized 72.5 mg PO QHS 04/26/19 ergocalciferol (vitamin D2) 1,250 50,000 unit PO WE 08/09/19 mcg (50,000 unit) capsule moexipril 15 mg tablet 15 mg PO BID 08/09/19 trazodone 50 mg tablet 50 mg PO QHS 08/09/19 dapagliflozin 10 mg PO DAILY 11/22/19 insulin degludec 50 unit SQ BID 11/22/19 semaglutide 1 mg SQ TH 11/22/19 epinephrine 0.3 mg/0.3 mL 0.3 mg IM X1 PRN #1 ea 01/18/20 injection, auto-injector albuterol sulfate 2.5 mg INHALATION Q2H PRN PRN #180 04/24/20 ml albuterol sulfate 90 mcg/actuation 2 inh INHALATION Q4H PRN PRN #18 g 04/24/20 aerosol inhaler tiotropium bromide 18 mcg capsule 18 mcg INHALATION DAILY #1 inh 04/24/20 with inhalation device montelukast 10 mg tablet 10 mg PO DAILY #30 tab 12/07/20 alendronate 70 mg tablet 70 mg PO WE tab 12/21/20 desoximetasone 0.05 % topical cream 1 applic TOPICAL PRN PRN g 12/21/20 nystatin 100,000 unit/gram topical 1 applic TOPICAL BID 12/21/20 powder ondansetron 4 mg disintegrating 4 mg PO Q8H PRN 12/21/20 tablet pitavastatin calcium 4 mg tablet 4 mg PO QHS tab 12/21/20 Eliquis 5 mg PO BID 03/22/21 beclomethasone dipropionate 1 inh INHALATION BID 03/22/21 budesonide-formoterol 2 puff INHALATION BID 03/22/21 furosemide 20 mg PO BIDCM 03/22/21 ipratropium-albuterol 3 ml INHALATION BID 03/22/21 tizanidine 4 mg PO Q8H PRN 03/22/21 cyanocobalamin (vitamin B-12) 100 mcg PO DAILY 04/05/21 [Vitamin B-12] melatonin 10 mg PO QHS 04/05/21 oxycodone-acetaminophen [Percocet] 1 tab PO Q6H PRN 04/05/21 pregabalin 150 mg PO BID 04/05/21 diltiazem HCl 240 mg PO DAILY 04/06/21 colesevelam 625 mg tablet 3,750 mg PO DAILY 05/04/21 lisinopril 10 1 tab PO BID 05/04/21 mg-hydrochlorothiazide 12.5 mg tablet meclizine 25 mg tablet 25 mg PO DAILY PRN 05/04/21 warfarin 3 mg tablet 3 mg PO DAILY 05/04/21 warfarin 6 mg tablet 6 mg PO DAILY 05/04/21 - Allergies Allergies/Adverse Reactions: Allergies clindamycin Allergy (Verified 05/04/21 13:07) Rash erythromycin base [Erythromycin Base] Allergy (Verified 05/04/21 13:07) Rash omalizumab [From Xolair] Allergy (Verified 05/04/21 13:07) Chest tightness Penicillins Allergy (Verified 05/04/21 13:07) Rash sulfamethoxazole [From Bactrim] Allergy (Verified 05/04/21 13:07) Chest tightness trimethoprim [From Bactrim] Allergy (Verified 05/04/21 13:07) Chest tightness Sulfa (Sulfonamide Antibiotics) Adverse Reaction (Unknown, Verified 05/04/21 13:07) Unknown shortness of breath Advanced Directives - Advanced Directives Power of Medical Center Manager: Yes Living Will: Yes Advance Directives Information Provided: Yes Advance Directives on File: Yes DNR Order?:: No Past Medical History - Covid-19 Screening Fever: No Unexplained muscle aches: No Current respiratory symptoms: No Upper respiratory infections symptoms: No Gastro-intestinal symptoms: No Dnn-Brbd-Qhkwgp symptoms: No Has tested positive for COVID-19 in last 30 days: No Had contact w/person w/symptoms or Covid-19 (+) last 14 days: No Has High Risk Exposures ID'd by Health dept/Inf Control team: No 65 years or older:: No Lives in Assisted Living facility:: No Has a chronic lung disease or moderate to severe asthma:: Yes Has a serious heart condition:: Yes Severely obese (Body Mass Index of 40 or higher):: Yes Diabetic:: Yes Has chronic kidney disease undergoing dialysis:: No Has liver disease:: No - Past Medical Illness Medical History: Past Medical History (Last Reviewed 05/02/21 @ 13:44 by Fatoumata Tucker) Asthma J45.909 Atherosclerotic heart disease of [place] coronary artery without angina pectoris I25.10 Back pain with sciatica M54.9, M54.30 Bilateral carotid bruits R09.89 Body mass index 45.0-49.9, adult Z68.42 Carotid artery disease I77.9 COPD (chronic obstructive pulmonary disease) J44.9 Diastolic heart failure I50.30 Essential hypertension I10 GERD (gastroesophageal reflux disease) K21.9 History of DVT (deep vein thrombosis) Z86.718 History of pulmonary embolism Z86.711 Morbid obesity E66.01 Nonrheumatic aortic (valve) stenosis I35.0 CHELSEY treated with BiPAP G47.33 Personal history of anaphylaxis Z87.892 Type 2 diabetes mellitus E11.9 - Past Surgical History Surgical History: Past Surgical History (Last Updated 05/02/21 @ 13:44 by Fatoumata Tucker) Aortic valve replaced Z95.2 H/O lumbosacral spine surgery Z98.890 History of section Z98.891 History of hernia repair Z98.890, Z87.19 History of left heart catheterization (LHC) Onset Date: ~01/19/21 Z98.890 LEFT MAIN: Angiographically normal; LEFT ANTERIOR DESCENDING ARTERY: PROX LAD: Mild calcification, Mild luminal irregularities,; CIRCUMFLEX ARTERY:MID CIRC: Mild luminal irregularities; RAMUS: Angiographically normal RIGHT CORONARY ARTERY: Mild luminal irregularities, PROX RCA: Mild calcification, MID RCA: Mild calcification; VALVE FINDINGS:Aortic Valve Calcification - moderate to severe, Mitral Valve Annular Calcification Moderate to Severe per cardiac cath 01/19/21 History of neck surgery Z98.890 History of rotator cuff surgery Z98.890 Hx of appendectomy Z90.49 Surgical History: appendectomy, herniorrhaphy, - - Cervical disc surgery, rotator cuff surgery, . - Family History Summary Family History: Family History (Last Reviewed 04/09/21 @ 11:12 by Tamika Whitley FAMILY LIVING EDUCATOR-C) Father Heart disease Diabetes CAD (coronary artery disease) Mother CAD (coronary artery disease) CVA (cerebral vascular accident) Diabetes Brother CAD (coronary artery disease) CVA (cerebral vascular accident) Diabetes Unknown Cancer Grandmother CVA (cerebral vascular accident) Diabetes Grandfather CVA (cerebral vascular accident) Grandmother Myocardial infarction Brother Diabetes Sister Diabetes Social History - Smoking History Smoking Status: Never smoker Hx Tobacco Use: No Hx Smoking Exposure: No - Alcohol Use Alcohol Usage: No - Substance Abuse Hx Substance Use: No - Occupation Occupation (List type of work in comments):: Retired - Hobbies, Recreation, Social Activities Hobbies: Sewing, Reading Recreational Activities: I am able to engage in most, but not all activities Social Environment - Status Marital Status: - Current Living Arrangements Living Environment:: Spouse - Children How many children do you have?: 2 Do any of your children live nearby?: Yes - Safety Do you feel safe in your surroundings?: Yes - Assistance Do you need any assistance at home?: Pt has an aid help her Review of Systems - Review of Systems Hints: Right click = Denies ([place]). Left click = Reports ([place]) Review of Present Symptoms: Reports: Shortness of Breath with Exertion, PVD, Angina, Dizziness/Lightheadedness, Fatigue, Appetite - Normal, Appetite - Special Diet. Denies: Shortness of Breath at Rest, Operative Discomfort, Wound Healing, Heart Arrhythmia/Irregularities, Sleep - Normal, Sexual Changes - Pain Is Patient Pain Free?: No Pain Location: other - Pt need shoulder replacement. Pt also has back pain Pain Level: 04/21 Risk Factor Assessment - Chief Complaint Chief Complaint: Heart valve replacement - Vital Signs Pulse Ox: 95 - Pulse Pulse Rate: 91 Pulse Rhythm: Regular - Hypertension Blood Pressure Sitting - Left Arm: 120/70 - Stress Stress: Home/Family - Diabetes Diabetic History: Type II Nutrition Referral for Diabetes: Yes - Obesity Height: 5 ft 4 in Weight:: 117.934 kg Weight in Pounds: 260.0 lbs Body Mass Index (BMI): 44.6 Nutritional Referral for Obesity: Yes - Risk Stratification Risk Guidelines: Lowest Risk: Risk Factor for Smoking, Moderate Risk: Risk Factor for Dyslipidemia, Risk Factor for Sedentary Lifestyle, Risk Factor for Depression, Highest Risk: Risk Factor for Diabetes, Risk Factor for Obesity, Risk Factor for Hypertension - Family History Family History: Family History (Last Reviewed 04/09/21 @ 11:12 by Tamika Whitley NP-C) Father Heart disease Diabetes CAD (coronary artery disease) Mother CAD (coronary artery disease) CVA (cerebral vascular accident) Diabetes Brother CAD (coronary artery disease) CVA (cerebral vascular accident) Diabetes Unknown Cancer Grandmother CVA (cerebral vascular accident) Diabetes Grandfather CVA (cerebral vascular accident) Grandmother Myocardial infarction Brother Diabetes Sister Diabetes Motivation - Motivation to Participate On a scale of 1 to 10, how prepared are you to commit to attending program?: 8 What do you see as barriers to successfully being able to complete the program?: none What do you see as the benefits of succesfully completing the program? In other words, what do you hope to get out of participating in the program?: improved health Are there issues you are dealing with that will interfere with completing the program?: none Do you have a spouse or signficant other, family or friends who will help support you to complete the program?: family
--- NOTE | 2021-06-04 13:13 | CR.ITP_ITS ---
Diagnosis - General Information Admitting Diagnosis: Heart valvre replacement Personal Learning Style:: Audio/Visual Barriers to Learning: Vision Impairment Gave educational material for:: Treating Heart Disease, Emotions & Heart Disease, Stress Management & Relaxation, Sleep Disorders & Heart Disease, How The Heart Works, What it means to have Heart Disease, How Coronary Artery Disease is Diagnosed, Heart Procedures, What Heart Medications Do, Risk Factors & Modifications, Living an Active Life, Nutrition - Education/Goals Cardiac Rehabilitation Goals: 1. Maintain the individual as the primary focus of care. 2. To improve the patient's quality of life. 3. Identification of cardiac risk factors and provide cardiac risk factor management. 4. Enhance the psychosocial status of the patient. 5. Reconditioning enough to allow the patient to resume customary activities. 6. Control symptoms of cardiac disease Personal Goals: Initial Assessment: Improve management of stress and emotions, Improve energy level, Participate in home exercise program, Improve knowledge of cardiac disease, Improve muscle strength and endurance, Improve diet and eating habits (eat healthier), Control risk factors (learn risk factor modification) Scale for measuring improvement of personal goals: Enter appropriate number in Comments. 2 = Unchanged. 3 = Slightly Better. 4 = Moderate Improvement. 5 = Met my Goal - Diagnosis & Disease Process Outcomes/Goals: Pt IDs own risk factors & lifestyle modifications by Session 10, Verbalizes symptoms of angina & response by session 3., Pt independently manages, Other Additional Outcomes/Goals: Plan/Interventions: Assist Pt to ID & engage in lifestyle modification to reduce CVD risk, Instruct on individual risk factors, Review symptoms of angina & emergency actions, Review secondary diagnosis & identify educational needs., Other see comment 30 day Reassessments:: Progressing 30 day Reassessments:: Progressing 30 day Reassessments:: Progressing 30 day Reassessments:: Progressing Final Reassessments:: Progressing - Safety Referral to Physical Therapy: No [facility]erral to [facility] Case Management: No Fall Risk Assessed:: Yes Assistive Devices:: None Exercise - Initial Assessment - Visit Date of Eval: 06/04/21 - initial eval Mets: Pre-: >5 METS for 30 minutes by discharge - Physician Prescribed Exercise Modalities: Treadmill, Biodyne, Airdyne, NuStep, SciFit Frequency: 3x/week for 12 weeks [36 sessions] Intensity: 60-80% of age predicted maximum heart rate reserve Current METSs:: 2 Target Heart Rate:: 103-135 EKG Type: Sinus rhythm RBBB - Outcomes & Goals Goals:: Verbalizes understanding of THR, RPE & goal METS by session 6, Documents in home exercise log/reports 30 min aerobic 5 day/wk by DC, Demonstrates acc urate pulse taking by DC, Other additional outcome/goals: see below - Intervention & Plan Exercise Program Goals: Instruct on personal THR & RPE, Instruct on MET level & personal MET goal, Show patient to take own pulse /validate performance until accurate, Instruct on home exercise, Other additional plan/int - Physical Activity Home Exercise Physical Activity - Home Exercise: Safe Exercise, Warm-up, Self-monitoring, Cool-Down, Home Exercise > 30 min Daily, Sitting Time <3 hours/daily - Outcomes & Goals Outcomes/Goals: Demonstrates correct Warm-up/exercise Cool-Down (S3) if = 2.5 METs, Verbalizes symptoms of exercise intolerance by Session 3 (S3), Demonstrate safe equipment use (S3) & follows exercise prescrition (6), Other: See below - Intervention & Plan Plan/Intervention: Instruct warm-up & cool-down if exercising at > 2 METs, In struct on symptoms of exercise intolerance & actions to take, Instruct & monitor on saf, Assess intial functional capacity & safety risk, Other See below Nutrition - Initial Assessment - Program Goals Nutrition Program Goals: LDL <100 optimal. 100 - 129 Near optimal. 130 - 159 Borderline High. 160 - 189 High. Total Cholesterol <200 desirable. 200 - 239 Borderline High. >/= 240 High. HDL < 40 Low >/=60 High. Triglycerides <150 desirable. <199 optimal. VlDL 5 - 40. HgbA1C <7%. BMI <25 Patient has diagnosis of Hyperlipidemia (ICD E78)?: No - Visit Date of Assessment:: 06/04/21 - initial eval - Cholesterol/Lipids Determine presence & major risk factors that modify LDL goal: Cigarette smoking, Hypertension or hypertensive medication, Low HDL cholesterol <40 mg/dL*, Family history of premature CHD in Male < 55 years: female <65 yearsFa, Age men > 45 years; women >/= 55 years Outcomes/Goals: Pt IDs own risk factors & lifestyle modifications by Session 10, Verbalizes symptoms of angina & response by session 3., Pt independently manages, Other Additional Outcomes/Goals: Intervention/Plan: Advocate for lipid panel cholesterol medication if applicable, Instruct on personal lipid levels & lipid goals/NCEP guidelines, Instruct on cholesterol, Other additional plan/int Referral to dietitian:: Yes - Diabetes (Other Core Measures) Diabetes Type: Diagnosis Type II ICD-10 E11 Insulin dependent injection/pump?: Yes Do you monitor your blood sugar at home?: Yes Referral to Diabetic Clinic:: Yes Outcomes/Goals:: Able to state symptoms of, Able to state, Able to state, Other additional Intervention/Plan:: Instruct on, Refer to, Instruct on, Other - Weight Mgt (Other Care) Height: 5 ft 4 in Weight:: 117.934 kg BMI: 44.6 Diagnosis Overweight/Obesity BMI> 30% ICD-10 E66: Yes Diagnosis High BMI/Morbid Obesity BMI> 35% ICD-10 Z68: Yes Outcomes/Goals: Pt sets, maintains & shows weight loss goal & trend during rehab, Other additional outcomes/goals Intervention/Plan: Instruct on ideal BMI & set weight loss goal w/patient, Assist pt to ID & incorporate diet changes for weight loss by S9, Refer to Structured Weight Loss program as appropriate, Encourage goal of using 250- 300dcal per session for weight loss, Other additional plan/interventions - Healthy Eating Habits Will attend diet classes:: Yes Outcomes/Goals:: Consume diet rich in vegs,fruits,whole grain/high fiber,fish,lean meat, Limit sat/trans fats,cholesterol & added salts & sugars, Other additional outcome/goals: Intervention/Plan:: Assess current eating habits, Other Additional plan/interventions - Education Gave educational materials for:: Signs & symptoms of hypoglycemia, Signs & sy mptoms of hyperglycemia, Relate diabetes to coronary artery disease, Healthy eating Nutrition - 30-Day Assessment Nutrition - 60-Day Assessment Nutrition - 90-Day Assessment Nutrition - Final Assessment Medical - Initial Assessment - Visit Date of Eval: 06/04/21 - initial eval - Medication Compliance Preventative Medication(s):: Warfarin/Coumadin Doesn?t believe in the benefits of treatment?: No Believes medications are unnecessary or harmful?: No Has a concern about medication side effects?: No Expresses concern over the cost of medications?: No Outcomes/Goals: Verbalizes medications,desired effect & common side effects @ DC, Pt self-reports following medication regimen, Keeps card in wallet w/medications listed by DC, Other additional outcome/goals: Interventions/plans: Instruct on medication effects & side effects, Review medication list w/patient every two weeks, Instruct importance of taking meds as ordered & assist problem solving, Other additional - Tobacco Use Tobacco Use: Non-smoker Do you use smokeless tobacco?: No - Hypertension Hypertension Diagnosis:: Hypertension ICD-10 I10 Resting Blood Pressure:: 120/70 [employer] Hypertension Guidelines: [place] [employer] Hypertension Guidelines. Normal BP Less than 120/80. Elevated BP 120/80. Hypertension Stage 1: BP 130-139/80-89. Hypertesnion Stage 2: BP 140 or higher/90 or higher. Hypertension Crisis: BP higher than 180/120 Outcomes/Goals: Able to verbalize/achieve optimal blood pressure <130/80, Incorporates diet changes & exercise for blood pressure control by DC, Other additional outcomes/goals Interventions/plan: Instruct on optimal blood pressure, hypertension & medications, Instruct on effects of sodium, alcohol, stress, exercise &hypertension, Other additional plan/interventions - Tobacco Cessation Referral Smoking Cessation Referral:: No Individual Education/Counseling:: No Education Schedule Given:: Yes Medical- 30-Day Assessment Medical- 60-Day Assessment Medical- 90-Day Assessment Medical - Final Assessment Psychosocial - Initial Assess - VIsit Date of Eval: 06/04/21 - intial eval History of previous Mental disease:: No - Outcomes/Goals: See list Psychosocial Outcomes/Goals:: ID's personal stressors & 2 strategies to manage stress by discharge, Other Additional outcome/goals: - Intervention/Plan: See List Interventions/Plan:: Assess stressors,coping strategies & signs of derpression on admission, Instruct/assist pt to develop coping & personal stress Mgt strategies, Refer to Behavioral Health if appropriate, Refer to Physician if appropriate, Instruct patient to recognize signs & symptoms of depression, Instruct patient to recog, Other additional plan/intervention Psychosocial - 30-Day Assess Psychosocial - 60-Day Assess Psychosocial - 90-Day Assess Psychosocial - Final Assessmen Patient Health Questionnaire Initial Assessment 1. Little interest or pleasure in doing things: Not at all 2. Feeling down, depressed, or hopeless: Not at all 3. Trouble falling or staying asleep, or sleeping too much: Nearly every day 4. Feeling tired or having little energy: Nearly every day 5. Poor appetite or overeating: Nearly every day 6. Feeling bad about yourself -- or that you are a failure or have let yourself or your family down: Several days 7. Trouble concentrating on things, such as reading the newspaper or watching television: More than half the days 8. Moving or speaking so slowly that other people could have noticed. Or the opposite - being so fidgety or restless that you have been moving around a lot more than usual: Not at all 9. Thoughts that you would be better off , or of hurting yourself in some way: Not at all How difficult have these problems made it for you to do your work, take care of things at home, or get along with other people?: Not difficult at all Total Score: 12 CELESTINA-Q SV Test - Statements CAD is a disease of the arteries in the heart: False Examples of risk factors for heart disease: True Angina is chest pain or discomfort: I Don't Know The benefits of resistance training include: True Eating more meat and dairy products: False Anti-platelet medications such as aspirin are important: True The only effective way to manage stress: False An exercise warm-up slowly increases heart rate: True Prepared, processed foods usually have high sodium: True Depression is common after a heart attack: True The statin medications lower cholesterol: True To control blood pressure, lower the amount of sodium: True If someone gets chest discomfort during walking: False Transfats are partially hydrogenated vegetable oils: I Don't Know Sleep apnea that is not treated increases the risk: False To control cholesterol, one should become a vegetarian: False Someone knows if he/she is exercising at the right level: I Don't Know Diabetes cannot be prevented with exercise & health eating: False Stress is a large risk for heart attack: True A diet that can help lower blood pressure is rich in: I Don't Know - Total Score Total Correct Responses: 16 Self-Efficacy Initial Assessment We would like to know how confident you are in doing certain activities. Please select your confidence level for:: Select your confidence level for the following using the scale 1-10 where 1 is not at all confident and 10 is totally confident. Your score is the average of all 6 responses. Fatigue: How confident are you that you can keep the fatigue caused by your disease from interfering with the things you want to do? Select Number: 6 Physical Discomfort or Pain: How confident are you that you can keep the physical discomfort or pain of your disease from interfering with the things you want to do? Select Number: 3 Emotional Distress: How confident are you that you can keep the emotional distress caused by your disease from interfering with the things you want to do? Select Number: 7 Other Symptoms or Health Problems: How confident are you that you can keep other symptoms or health problems from interfering with the things you want to do? Select Number: 3 Different Tasks and Activities: How confident are you that you can do the different tasks and activities needed to manage your health condition so as to reduce your need to see a doctor? Select Number: 7 Medication: How confident are you that you can do things other than just taking medication to reduce how much your illness affects your everyday life? Select Number: 3 Total Score:: 4 Nutrition Survey - Nutrition Survey Initial Have you lost >10 lbs over the past 2 months without trying?: No Are you following a special diet at home for diabetes, low fat, or low salt?: Yes Are you interested in meeting with a dietitian for help understanding your diet?: Yes Do you eat less than 3 meals a day?: No Do you eat fatty meats ([place], sausage, ribs, etc), fried foods, desserts, large amounts of salad dressings, margarine, butter, or cheese most days?: No Do you have food allergies? [Enter types in comment field]: No Do you eat in restaurants more than 3 times a week?: No Do you season food with salt, seasoning salt, or garlic salt?: Yes Do you used canned, boxed, frozen meals, or soups, seasoning packets?: Yes Total Score:: 4
[2021-06-04 14:18] VITALS: BP 120/70; PULSE 91; O2SAT 95; BMI 44.6
[2021-06-04 14:19] VITALS: BP 120/70; BMI 44.6
== END ==
PROVIDERS: PCP Internal Medicine; Referring Provider Internal Medicine Cardiovascular Disease; Visit Provider Internal Medicine Cardiovascular Disease
DX: Z95.2 Presence of prosthetic heart valve (principal)

== ENCOUNTER 2021-06-11 15:35 | Outpatient (RCR) | payer MEDICARE, MEDICAID, SELFPAY ==
[2021-06-04 14:19] VITALS: BMI 44.6
== END 2021-06-12 23:59 ==
LOC: CR 15:35
PROVIDERS: PCP Internal Medicine; Referring Provider Internal Medicine Cardiovascular Disease; Visit Provider Internal Medicine Cardiovascular Disease
DX: I25.10 Atherosclerotic heart disease of native coronary artery without angina pectoris (principal); I35.0 Nonrheumatic aortic (valve) stenosis; I10 Essential (primary) hypertension
CPT/HCPCS: 93798

== ENCOUNTER 2021-06-27 15:30 | Outpatient (RCR) | payer MEDICARE, MEDICAID, SELFPAY ==
[2021-06-04 14:19] VITALS: BMI 44.6
== END 2021-07-12 23:59 ==
LOC: DC 15:30
PROVIDERS: PCP Internal Medicine; Visit Provider Internal Medicine Cardiovascular Disease
DX: E11.9 Type 2 diabetes mellitus without complications (principal)
CPT/HCPCS: 97802; G0108

== ENCOUNTER 2021-07-02 10:45 | Day surgery (SDC) | payer MEDICARE, MEDICAID, SELFPAY ==
[2021-06-04 14:19] VITALS: BMI 44.6
[2021-07-02] VITALS (7 sets, daily range): BP systolic 120–151; BP diastolic 72–77; PULSE 72–79; RESP 16–18; TEMP 35.6–36.1; O2SAT 92–97; BMI 44.6
[2021-07-02 11:25] LABS: International Normalized Ratio 1.4; Prothrombin Time (Protime)PT. 16.9 SECONDS (11.7-14.9)
[2021-07-02] MEDS: Lactated Ringers 1,000 ML 100 ML IV (11:41)
[2021-07-02 11:50] LABS: Bedside Glucose 104 mg/dL (70-110)
[2021-07-02] MEDS: Lidocaine 1% (5 ml sdv) 5 ML Vial (12:09)
[2021-07-02] MEDS: Bupivacaine 0.25% 30 ML Vial (12:09)
[2021-07-02] MEDS: MethylPREDNISolone Acetate 40 MG/ML Vial IM (12:09)
--- NOTE | 2021-07-02 12:10 | RAD_ITS ---
STUDY: X-RAY - RIGHT SHOULDER REASON FOR EXAM: Female, 60 years old. RT SHOULDER INJECTION TECHNIQUE: 5 intraoperative view(s) of the shoulder. COMPARISON: None. FINDINGS: Intraoperative imaging provided for right shoulder injection. RAD/Fluoro Guided Needle Placement IMPRESSION: Intraoperative imaging provided for right shoulder injection. Electronically Signed: Lon Fuchs MD at 15:25 EDT , Service support ,
--- NOTE | 2021-07-02 12:57 | OP.PCM_ITS ---
Report of Operation Date of Procedure: 07/02/21 Description of Surgical Findings:: PREOPERATIVE DIAGNOSIS: Osteoarthritis of the right shoulder. POSTOPERATIVE DIAGNOSIS: Osteoarthritis of the right shoulder. PROCEDURE PERFORMED: Right shoulder intraarticular steroid injection under fluoroscopic guidance. ANESTHESIA: MAC. BLOOD LOSS: Minimal. COMPLICATIONS: None. DESCRIPTION OF PROCEDURE: History and physical of today was reviewed. Risks and benefits of the procedure were explained. The patient understood and agreed to proceed. Informed consent was obtained. IV inserted per routine protocol. The patient was taken to the operating room and placed in the supine position. The right shoulder area was prepped and draped in a sterile fashion using iodine x3. Under fluoroscopic guidance on AP view, the right shoulder joint was visualized. The skin and subcutaneous tissue was anesthetized with approximately 1 mL of 1% lidocaine using a 25-gauge regular needle at the anterior shoulder joint area. Under direct visualization with fluoroscopy on AP view, using a 22-gauge 3-1/2-inch spinal needle, the needle was advanced via the skin directed towards the intraarticular position at the supraspinatus level. Once the tip of the needle was at the vicinity of the shoulder joint, after negative aspiration for blood, positive aspiration for synovial fluid, a total of 1 mL of contrast was injected to confirm correct placement of the needle as well as anterior and posterior spread of the contrast at the shoulder joint. Cephalocaudal spread as well was visualized through the arthrogram. After confirmation on AP as well as oblique view and repeated negative aspiration for blood, a total of 4 mL of preservative-free 0.25% Marcaine with 40 mg of Depo- Medrol was injected easily. The needle was then removed intact. The patient experienced no sign or symptoms of intravascular injection. The patient experienced no paresthesia. The procedure was completed without any apparent difficulty or any complications. The patient appeared to tolerate it well. Assessment and plan: This is a 60-year-old female with osteoarthritis of the right shoulder status post right shoulder intra-articular steroid injection under fluoroscopic guidance, patient will continue her current medications, patient will follow in approximately 2 weeks for reevaluation.
[2021-07-14 07:21] LABS: INR Fingerstick 1.6; Prothrombin Time Fingerstick 18.1 SEC (11.9-14.4)
== END 2021-07-02 13:20 | disposition home or self-care (01) ==
LOC: SDC 10:47 → AC 10:52
PROVIDERS: PCP Internal Medicine; Visit Provider Anesthesiology Pain Medicine
PROC: 3E0U3GC Introduction of Other Therapeutic Substance into Joints, Percutaneous Approach (ICD-10-PCS; CPT 20610; principal; 2021-07-02 12:05)
DX: M19.011 Primary osteoarthritis, right shoulder (principal); I25.10 Atherosclerotic heart disease of native coronary artery without angina pectoris; I45.10 Unspecified right bundle-branch block; I11.0 Hypertensive heart disease with heart failure; I50.30 Unspecified diastolic (congestive) heart failure; I35.0 Nonrheumatic aortic (valve) stenosis; E78.00 Pure hypercholesterolemia, unspecified; E11.40 Type 2 diabetes mellitus with diabetic neuropathy, unspecified; J44.9 Chronic obstructive pulmonary disease, unspecified; K21.9 Gastro-esophageal reflux disease without esophagitis; G47.33 Obstructive sleep apnea (adult) (pediatric); M19.90 Unspecified osteoarthritis, unspecified site; E66.01 Morbid (severe) obesity due to excess calories; Z68.41 Body mass index [BMI] 40.0-44.9, adult; Z95.2 Presence of prosthetic heart valve; Z99.81 Dependence on supplemental oxygen; Z79.82 Long term (current) use of aspirin; Z79.891 Long term (current) use of opiate analgesic; Z79.01 Long term (current) use of anticoagulants; Z79.4 Long term (current) use of insulin; Z79.899 Other long term (current) drug therapy; Z86.711 Personal history of pulmonary embolism; Z86.718 Personal history of other venous thrombosis and embolism; Z86.73 Personal history of transient ischemic attack (TIA), and cerebral infarction without residual deficits
CPT/HCPCS: 20610; 36416; 76000; 77002; 82962; 85610; J7120

== ENCOUNTER 2021-07-11 14:30 | Outpatient (RCR) | payer MEDICARE, MEDICAID, SELFPAY ==
[2021-06-04 14:19] VITALS: BMI 44.6
--- NOTE | 2021-07-03 09:32 | PCM.CR.ITP ---
Diagnosis Exercise - 30-day Assessment - Visit Date of Eval: 07/03/21 Session #:: 8 - Physician Prescribed Exercise Modalities: Treadmill, Biodyne - Replaced with SciFit lateral customer trainer, NuStep Frequency: 3x/week for 12 weeks [36 sessions] Intensity: 60-80% of age predicted maximum heart rate reserve Current METSs:: 2.5 increase from 2.0 Target Heart Rate:: 103-135 Target RPE 12-16:: 13-15 Maximum Excercise HR:: 112 Resting Blood Pressure: 120/64 EKG Type: NSR to sinus tach with BBB and rare PVC Current Physical Activity or Exercising minutes: 30-35 - Outcomes & Goals Goals:: Verbalizes understanding of THR, RPE & goal METS by session 6, Documents in home exercise log/reports 30 min aerobic 5 day/wk by DC, Demonstrates accurate pulse taking by DC - Intervention & Plan Exercise Program Goals: Instruct on personal THR & RPE, Instruct on MET level & personal MET goal, Show patient to take own pulse /validate performance until accurate, Instruct on home exercise - 30-day Reassessments 30 day Reassessments:: Progressing - Physical Activity Home Exercise Physical Activity - Home Exercise: Safe Exercise, Warm-up, Self-monitoring, Cool-Down, Home Exercise > 30 min Daily, Sitting Time <3 hours/daily - Outcomes & Goals Outcomes/Goals: Demonstrates correct Warm-up/exercise Cool-Down (S3) if = 2.5 METs, Verbalizes symptoms of exercise intolerance by Session 3 (S3), Demonstrate safe equipment use (S3) & follows exercise prescrition (6) - Intervention & Plan Plan/Intervention: Instruct warm-up & cool-down if exercising at > 2 METs, Instruct on symptoms of exercise intolerance & actions to take, Instruct & monitor on saf, Assess intial functional capacity & safety risk - 30-day Reassessments 30 day Reassessments:: Progressing Nutrition - Initial Assessment Nutrition - 30-Day Assessment - Program Goals Nutrition Program Goals: LDL <100 optimal. 100 - 129 Near optimal. 130 - 159 Borderline High. 160 - 189 High. Total Cholesterol <200 desirable. 200 - 239 Borderline High. >/= 240 High. HDL < 40 Low >/=60 High. Triglycerides <150 desirable. <199 optimal. VlDL 5 - 40. HgbA1C <7%. BMI <25 Patient has diagnosis of Hyperlipidemia (ICD E78)?: Yes - Visit Date of Assessment:: 07/03/21 Session #:: 8 - Cholesterol/Lipids Triglycerides (mg/dL): 333 Total Cholesterol (mg/dL): 158 LDL Cholesterol (mg/dL): 61 Determine presence & major risk factors that modify LDL goal: Hypertension or hypertensive medication, Family history of premature CHD in Male < 55 years: female <65 yearsFa, Age men > 45 years; women >/= 55 years Outcomes/Goals: Pt IDs own risk factors & lifestyle modifications by Session 10, Verbalizes symptoms of angina & response by session 3., Pt independently manages Intervention/Plan: Instruct on personal lipid levels & lipid goals/NCEP guidelines, Instruct on cholesterol Referral to dietitian:: No - Nutritional Services appt on 06/20/2021 30-day Reassessments:: Progressing - Diabetes (Other Core Measures) Diabetes Type: Diagnosis Type II ICD-10 E11 Fasting blood glucose:: 123 Hgb A1C (4.2 -6.3): 6.6 Insulin dependent injection/pump?: Yes Non-Insulin Dependent?: Yes Do you monitor your blood sugar at home?: Yes Referral to Diabetic Clinic:: Yes Outcomes/Goals:: Able to state symptoms of, Able to state, Able to state Intervention/Plan:: Instruct on, Refer to, Instruct on 30-day Reassessments:: Progressing - Weight Mgt (Other Care) Not Applicable: No Height: 5 ft 4 in Weight:: 261 lb BMI: 44.8 Diagnosis Overweight/Obesity BMI> 30% ICD-10 E66: Yes Diagnosis High BMI/Morbid Obesity BMI> 35% ICD-10 Z68: Yes Outcomes/Goals: Pt sets, maintains & shows weight loss goal & trend during rehab Intervention/Plan: Instruct on ideal BMI & set weight loss goal w/patient, Assist pt to ID & incorporate diet changes for weight loss by S9, Encourage goal of using 250-300dcal per session for weight loss 30 day Reassessments:: Progressing - Healthy Eating Habits Will attend diet classes:: Yes Outcomes/Goals:: Consume diet rich in vegs,fruits,whole grain/high fiber,fish,lean meat, Limit sat/trans fats,cholesterol & added salts & sugars Intervention/Plan:: Assess current eating habits 30-day Reassessments:: Progressing - Education Gave educational materials for:: Signs & symptoms of hypoglycemia, Signs & symptoms of hyperglycemia, Relate diabetes to coronary artery disease, Healthy eating Nutrition - 60-Day Assessment Nutrition - 90-Day Assessment Nutrition - Final Assessment Medical - Initial Assessment Medical- 30-Day Assessment - Visit Date of Eval: 07/03/21 Session #:: 8 - Medication Compliance Preventative Medication(s):: Aspirin, Statin/lipid, Beta jake, Warfarin/Coumadin H/O mental health issues: depression, anxiety, or addiction?: No Doesn?t believe in the benefits of treatment?: No Believes medications are unnecessary or harmful?: No Has a concern about medication side effects?: No Expresses concern over the cost of medications?: No Outcomes/Goals: Verbalizes medications,desired effect & common side effects @ DC, Pt self-reports following medication regimen, Keeps card in wallet w/medications listed by DC Interventions/plans: Instruct on medication effects & side effects, Review medication list w/patient every two weeks, Instruct importance of taking meds as ordered & assist problem solving 30-day Reassessments:: Progressing - Tobacco Use Tobacco Use: Non-smoker - Hypertension Hypertension Diagnosis:: Hypertension ICD-10 I10 Resting Blood Pressure:: 120/64 [place] [employer] Hypertension Guidelines: [place] [employer] Hypertension Guidelines. Normal BP Less than 120/80. Elevated BP 120/80. Hypertension Stage 1: BP 130-139/80-89. Hypertesnion Stage 2: BP 140 or higher/90 or higher. Hypertension Crisis: BP higher than 180/120 Peak Exercise Blood Pressure:: 122/80 Outcomes/Goals: Able to verbalize/achieve optimal blood pressure <130/80, Incorporates diet changes & exercise for blood pressure control by DC Interventions/plan: Instruct on optimal blood pressure, hypertension & medications, Instruct on effects of sodium, alcohol, stress, exercise &hypertension 30 day Reassessments:: Progressing - Tobacco Cessation Referral Smoking Cessation Referral:: No Individual Education/Counseling:: No Education Schedule Given:: Yes Medical- 60-Day Assessment Medical- 90-Day Assessment Medical - Final Assessment Psychosocial - Initial Assess Psychosocial - 30-Day Assess - VIsit Date of Eval: 07/03/21 Session #:: 9 Not Applicable: Yes History of previous Mental disease:: No - Psychosocial Test Tool Used:: PHQ-9 Questionnaire phq-9 Severity: Severity. 1-4 Minimal Depression. 5-9 Mild Depression. 10-14 Moderate Depression. 15-19 Moderately Sever Depression. 20-27 Severe Depression. Rule: - Referral to Behavioral Health PS - Interventions: Yes Attend Stress Management Classes, No Referral to Behavioral Health if PHQ-9 score >9:, No Referral to [facility], No Referral to Physician if PHQ-9 if score is 5-9: - Outcomes/Goals: See list Psychosocial Outcomes/Goals:: ID's personal stressors & 2 strategies to manage stress by discharge - Intervention/Plan: See List Interventions/Plan:: Assess stressors,coping strategies & signs of derpression on admission, Instruct/assist pt to develop coping & personal stress Mgt strategies, Instruct patient to recognize signs & symptoms of depression, Instruct patient to recog - 30-day Reassessments: 30 day Reassessments:: Progressing Psychosocial - 60-Day Assess Psychosocial - 90-Day Assess Psychosocial - Final Assessmen Patient Health Questionnaire 30-Day Re-eval Assessment 1. Little interest or pleasure in doing things: Not at all 2. Feeling down, depressed, or hopeless: Not at all 3. Trouble falling or staying asleep, or sleeping too much: Nearly every day 4. Feeling tired or having little energy: Nearly every day 5. Poor appetite or overeating: Several days 6. Feeling bad about yourself -- or that you are a failure or have let yourself or your family down: More than half the days 7. Trouble concentrating on things, such as reading the newspaper or watching television: Not at all 8. Moving or speaking so slowly that other people could have noticed. Or the opposite - being so fidgety or restless that you have been moving around a lot more than usual: Not at all 9. Thoughts that you would be better off , or of hurting yourself in some way: Not at all How difficult have these problems made it for you to do your work, take care of things at home, or get along with other people?: Somewhat difficult Total Score: 9 Self-Efficacy 30-Day Re-eval Assessment We would like to know how confident you are in doing certain activities. Please select your confidence level for:: Select your confidence level for the following using the scale 1-10 where 1 is not at all confident and 10 is totally confident. Your score is the average of all 6 responses. Fatigue: How confident are you that you can keep the fatigue caused by your disease from interfering with the things you want to do? Select Number: 6 Physical Discomfort or Pain: How confident are you that you can keep the physical discomfort or pain of your disease from interfering with the things you want to do? Select Number: 3 Emotional Distress: How confident are you that you can keep the emotional distress caused by your disease from interfering with the things you want to do? Select Number: 7 Other Symptoms or Health Problems: How confident are you that you can keep other symptoms or health problems from interfering with the things you want to do? Select Number: 5 Different Tasks and Activities: How confident are you that you can do the different tasks and activities needed to manage your health condition so as to reduce your need to see a doctor? Select Number: 7 Medication: How confident are you that you can do things other than just taking medication to reduce how much your illness affects your everyday life? Select Number: 4 Total Score:: 5 Nutrition Survey
[2021-07-03 09:46] VITALS: BP 120/64; BP 122/80; BMI 44.8
== END 2021-07-12 23:59 ==
LOC: CR 14:30
PROVIDERS: PCP Internal Medicine; Referring Provider Internal Medicine Cardiovascular Disease; Visit Provider Internal Medicine Cardiovascular Disease
DX: I25.10 Atherosclerotic heart disease of native coronary artery without angina pectoris (principal); I35.0 Nonrheumatic aortic (valve) stenosis; I10 Essential (primary) hypertension
CPT/HCPCS: 93798

== ENCOUNTER 2021-07-25 15:30 | Outpatient (RCR) | payer MEDICARE, MEDICAID, SELFPAY ==
[2021-07-03 09:46] VITALS: BMI 44.8
== END 2021-08-12 23:59 ==
LOC: DC 15:30
PROVIDERS: PCP Internal Medicine; Visit Provider Internal Medicine Cardiovascular Disease
DX: E11.9 Type 2 diabetes mellitus without complications (principal)
CPT/HCPCS: 97803; G0108

== ENCOUNTER 2021-07-30 14:30 | Outpatient (RCR) | payer MEDICARE, MEDICAID, SELFPAY ==
[2021-07-03 09:46] VITALS: BMI 44.8
[2021-07-13 00:34] VITALS: BP 120/64; BP 122/80
--- NOTE | 2021-08-01 08:16 | CR.ITP_ITS ---
Diagnosis Exercise - 60-day Assessment - Visit Date of Eval: 08/01/21 Session #:: 20 - Patient missed one session due to appointment conflict. - Physician Prescribed Exercise Modalities: Treadmill, Biodyne - Biodyne replaced with FIA Formula E lateral [place] device, NuStep Frequency: 3x/week for 12 weeks [36 sessions] Intensity: 60-80% of age predicted maximum heart rate reserve Current METSs:: 3.0 increase from 2.5 Target Heart Rate:: 103-135 Current RPE:: 13-15 Maximum Excercise HR:: 106 Resting Blood Pressure: 120/50 Maximum Exercise Blood Pressure: 132/74 EKG Type: NSR to sinus tach w/BBB isolated PACs and PVCs noted. Current Physical Activity or Exercising minutes: 42 - Outcomes & Goals Goals:: Verbalizes understanding of THR, RPE & goal METS by session 6, Documents in home exercise log/reports 30 min aerobic 5 day/wk by DC, Demonstrates accurate pulse taking by DC - Intervention & Plan Exercise Program Goals: Instruct on personal THR & RPE, Instruct on MET level & personal MET goal, Show patient to take own pulse /validate performance until accurate, Instruct on home exercise - 30-day Reassessments 30 day Reassessments:: Progressing - Physical Activity Home Exercise Physical Activity - Home Exercise: Safe Exercise, Warm-up, Self-monitoring, Cool-Down, Home Exercise > 30 min Daily, Sitting Time <3 hours/daily - Outcomes & Goals Outcomes/Goals: Demonstrates correct Warm-up/exercise Cool-Down (S3) if = 2.5 METs, Verbalizes symptoms of exercise intolerance by Session 3 (S3), Demonstrate safe equipment use (S3) & follows exercise prescrition (6) - Intervention & Plan Plan/Intervention: Instruct warm-up & cool-down if exercising at > 2 METs, Instruct on symptoms of exercise intolerance & actions to take, Instruct & monitor on saf, Assess intial functional capacity & safety risk - 30-day Reassessments 30 day Reassessments:: Progressing Nutrition - Initial Assessment Nutrition - 30-Day Assessment Nutrition - 60-Day Assessment - Program Goals Nutrition Program Goals: LDL <100 optimal. 100 - 129 Near optimal. 130 - 159 Borderline High. 160 - 189 High. Total Cholesterol <200 desirable. 200 - 239 Borderline High. >/= 240 High. HDL < 40 Low >/=60 High. Triglycerides <150 desirable. <199 optimal. VlDL 5 - 40. HgbA1C <7%. BMI <25 Patient has diagnosis of Hyperlipidemia (ICD E78)?: Yes - Visit Date of Assessment:: 08/01/21 Session #:: 20 - Cholesterol/Lipids Triglycerides (mg/dL): 333 Total Cholesterol (mg/dL): 158 LDL Cholesterol (mg/dL): 61 HDL Cholesterol (mg/dL): 30 Determine presence & major risk factors that modify LDL goal: Hypertension or hypertensive medication, Low HDL cholesterol <40 mg/dL*, Family history of premature CHD in Male < 55 years: female <65 yearsFa, Age men > 45 years; women >/= 55 years Outcomes/Goals: Pt IDs own risk factors & lifestyle modifications by Session 10, Verbalizes symptoms of angina & response by session 3., Pt independently manages Intervention/Plan: Instruct on personal lipid levels & lipid goals/NCEP guidelines, Instruct on cholesterol Referral to dietitian:: No - Scheduled Nutritional Service appointment on 06/20/2021 @ 3:30 30-day Reassessments:: Progressing - Diabetes (Other Core Measures) Diabetes Type: Diagnosis Type II ICD-10 E11 Fasting blood glucose:: 123 Hgb A1C (4.2 -6.3): 6.6 Insulin dependent injection/pump?: Yes Non-Insulin Dependent?: Yes Do you monitor your blood sugar at home?: Yes - Pre FSB range 110-184, Post FSBS range 90-163 Referral to Diabetic Clinic:: Yes Outcomes/Goals:: Able to state symptoms of, Able to state, Able to state Intervention/Plan:: Instruct on, Refer to - Scheduled Nutritional Service on 06/20/21 @ 3:30, Instruct on 30-day Reassessments:: Progressing - Weight Mgt (Other Care) Not Applicable: No Height: 5 ft 4 in Weight:: 257 lb BMI: 44.1 Diagnosis Overweight/Obesity BMI> 30% ICD-10 E66: Yes Diagnosis High BMI/Morbid Obesity BMI> 35% ICD-10 Z68: Yes Outcomes/Goals: Pt sets, maintains & shows weight loss goal & trend during rehab Intervention/Plan: Instruct on ideal BMI & set weight loss goal w/patient, Assist pt to ID & incorporate diet changes for weight loss by S9, Refer to Structured Weight Loss program as appropriate, Encourage goal of using 250- 300dcal per session for weight loss 30 day Reassessments:: Progressing - Healthy Eating Habits Will attend diet classes:: Yes Outcomes/Goals:: Consume diet rich in vegs,fruits,whole grain/high fiber,fish,lean meat, Limit sat/trans fats,cholesterol & added salts & sugars Intervention/Plan:: Assess current eating habits 30-day Reassessments:: Progressing - Education Gave educational materials for:: Signs & symptoms of hypoglycemia, Signs & symptoms of hyperglycemia, Relate diabetes to coronary artery disease, Healthy eating Nutrition - 90-Day Assessment Nutrition - Final Assessment Medical - Initial Assessment Medical- 30-Day Assessment Medical- 60-Day Assessment - Visit Date of Eval: 08/01/21 Session #:: 20 - Medication Compliance Preventative Medication(s):: Aspirin, Statin/lipid, Beta jake, Warfarin/Coumadin H/O mental health issues: depression, anxiety, or addiction?: No Doesn?t believe in the benefits of treatment?: No Believes medications are unnecessary or harmful?: No Has a concern about medication side effects?: No Expresses concern over the cost of medications?: No Outcomes/Goals: Verbalizes medications,desired effect & common side effects @ DC, Pt self-reports following medication regimen, Keeps card in wallet w/medications listed by DC Interventions/plans: Instruct on medication effects & side effects, Review medication list w/patient every two weeks, Instruct importance of taking meds as ordered & assist problem solving 30-day Reassessments:: Progressing - Tobacco Use Tobacco Use: Non-smoker - Hypertension Hypertension Diagnosis:: Hypertension ICD-10 I10 Resting Blood Pressure:: 120/50 [place] [employer] Hypertension Guidelines: [place] [employer] Hypertension Guidelines. Normal BP Less than 120/80. Elevated BP 120/80. Hypertension Stage 1: BP 130-139/80-89. Hypertesnion Stage 2: BP 140 or higher/90 or higher. Hypertension Crisis: BP higher than 180/120 Peak Exercise Blood Pressure:: 132/74 Outcomes/Goals: Able to verbalize/achieve optimal blood pressure <130/80, Incorporates diet changes & exercise for blood pressure control by DC Interventions/plan: Instruct on optimal blood pressure, hypertension & medications, Instruct on effects of sodium, alcohol, stress, exercise &hypertension 30 day Reassessments:: Progressing - Tobacco Cessation Referral Smoking Cessation Referral:: No Individual Education/Counseling:: No Education Schedule Given:: Yes - Online Educational Resources provided & workbook Medical- 90-Day Assessment Medical - Final Assessment Psychosocial - Initial Assess Psychosocial - 30-Day Assess Psychosocial - 60-Day Assess - VIsit Date of Eval: 08/01/21 Session #:: 20 Not Applicable: Yes History of previous Mental disease:: No - Psychosocial Test Tool Used:: PHQ-9 Questionnaire phq-9 Severity: Severity. 1-4 Minimal Depression. 5-9 Mild Depression. 10-14 Moderate Depression. 15-19 Moderately Sever Depression. 20-27 Severe Depres gaurang. Rule: - Referral to Behavioral Health PS - Interventions: Yes Attend Stress Management Classes, No Referral to Behavioral Health if PHQ-9 score >9:, No Referral to [facility], No Referral to Physician if PHQ-9 if score is 5-9: - Outcomes/Goals: See list Psychosocial Outcomes/Goals:: ID's personal stressors & 2 strategies to manage stress by discharge - Intervention/Plan: See List Interventions/Plan:: Assess stressors,coping strategies & signs of derpression on admission, Instruct/assist pt to develop coping & personal stress Mgt strategies, Instruct patient to recognize signs & symptoms of depression, Instruct patient to recog - 30-day Reassessments: 30 day Reassessments:: Progressing Psychosocial - 90-Day Assess Psychosocial - Final Assessmen Patient Health Questionnaire 60-Day Re-eval Assessment 1. Little interest or pleasure in doing things: Not at all 2. Feeling down, depressed, or hopeless: Not at all 3. Trouble falling or staying asleep, or sleeping too much: More than half the days 4. Feeling tired or having little energy: More than half the days 5. Poor appetite or overeating: Several days 6. Feeling bad about yourself -- or that you are a failure or have let yourself or your family down: Several days 7. Trouble concentrating on things, such as reading the newspaper or watching television: Not at all 8. Moving or speaking so slowly that other people could have noticed. Or the opposite - being so fidgety or restless that you have been moving around a lot more than usual: Not at all 9. Thoughts that you would be better off , or of hurting yourself in some way: Not at all How difficult have these problems made it for you to do your work, take care of things at home, or get along with other people?: Somewhat difficult Total Score: 6 Self-Efficacy 60-Day Re-eval Assessment We would like to know how confident you are in doing certain activities. Please select your confidence level for:: Select your confidence level for the following using the scale 1-10 where 1 is not at all confident and 10 is totally confident. Your score is the average of all 6 responses. Fatigue: How confident are you that you can keep the fatigue caused by your disease from interfering with the things you want to do? Select Number: 7 Physical Discomfort or Pain: How confident are you that you can keep the phy sical discomfort or pain of your disease from interfering with the things you want to do? Select Number: 5 Emotional Distress: How confident are you that you can keep the emotional distress caused by your disease from interfering with the things you want to do? Select Number: 7 Other Symptoms or Health Problems: How confident are you that you can keep other symptoms or health problems from interfering with the things you want to do? Select Number: 7 Different Tasks and Activities: How confident are you that you can do the different tasks and activities needed to manage your health condition so as to reduce your need to see a doctor? Select Number: 8 Medication: How confident are you that you can do things other than just taking medication to reduce how much your illness affects your everyday life? Select Number: 5 Total Score:: 6 Nutrition Survey
[2021-08-01 08:27] VITALS: BP 120/50; BP 132/74; BMI 44.1
== END 2021-08-12 23:59 ==
LOC: CR 14:30
PROVIDERS: PCP Internal Medicine; Referring Provider Internal Medicine Cardiovascular Disease; Visit Provider Internal Medicine Cardiovascular Disease
DX: I10 Essential (primary) hypertension (principal); I35.0 Nonrheumatic aortic (valve) stenosis; I25.10 Atherosclerotic heart disease of native coronary artery without angina pectoris
CPT/HCPCS: 93798

== ENCOUNTER 2021-08-29 13:30 | Outpatient (RCR) | payer MEDICARE, MEDICAID, SELFPAY | END 2021-09-11 23:59 | LOC: DC 13:30 | PROVIDERS: PCP Internal Medicine; Visit Provider Internal Medicine Cardiovascular Disease | DX: E11.9 Type 2 diabetes mellitus without complications (principal) | CPT/HCPCS: 97803; G0109 ==

== ENCOUNTER 2021-09-05 14:30 | Outpatient (RCR) | payer MEDICARE, MEDICAID, SELFPAY ==
[2021-08-13 00:27] VITALS: BP 120/50; BP 132/74
--- NOTE | 2021-09-03 12:49 | CR.ITP_ITS ---
Diagnosis Exercise - 60-day Assessment - Visit Date of Eval: 09/03/21 Session #:: 27 - Patient has missed 8 scheduled sessions. - Physician Prescribed Exercise Modalities: Treadmill, Biodyne - Replaced Biodyne with SciFit Lateral Clay Molder Device, NuStep Frequency: 3x/week for 12 weeks [36 sessions] Intensity: 60-80% of age predicted maximum heart rate reserve Current METSs:: 4.0 increased from 3.0 Target Heart Rate:: 103-135 Current RPE:: 13-15 Maximum Excercise HR:: 109 Resting Blood Pressure: 130/72 Maximum Exercise Blood Pressure: 164/90 EKG Type: SR to ST w/BBB, isolated PAC and PVC - Outcomes & Goals Goals:: Verbalizes understanding of THR, RPE & goal METS by session 6, Documents in home exercise log/reports 30 min aerobic 5 day/wk by DC, Demonstrates accurate pulse taking by DC - Intervention & Plan Exercise Program Goals: Instruct on personal THR & RPE, Instruct on MET level & personal MET goal, Show patient to take own pulse /validate performance until accurate, Instruct on home exercise - 30-day Reassessments 30 day Reassessments:: Progressing - Physical Activity Home Exercise Physical Activity - Home Exercise: Safe Exercise, Warm-up, Self-monitoring, Cool-Down, Home Exercise > 30 min Daily, Sitting Time <3 hours/daily - Outcomes & Goals Outcomes/Goals: Demonstrates correct Warm-up/exercise Cool-Down (S3) if = 2.5 METs, Verbalizes symptoms of exercise intolerance by Session 3 (S3), Demonstrate safe equipment use (S3) & follows exercise prescrition (6) - Intervention & Plan Plan/Intervention: Instruct warm-up & cool-down if exercising at > 2 METs, Instruct on symptoms of exercise intolerance & actions to take, Instruct & monitor on saf, Assess intial functional capacity & safety risk - 30-day Reassessments 30 day Reassessments:: Progressing Nutrition - Initial Assessment Nutrition - 30-Day Assessment Nutrition - 60-Day Assessment - Program Goals Nutrition Program Goals: LDL <100 optimal. 100 - 129 Near optimal. 130 - 159 Borderline High. 160 - 189 High. Total Cholesterol <200 desirable. 200 - 239 Borderline High. >/= 240 High. HDL < 40 Low >/=60 High. Triglycerides <150 desirable. <199 optimal. VlDL 5 - 40. HgbA1C <7%. BMI <25 Patient has diagnosis of Hyperlipidemia (ICD E78)?: Yes - Visit Date of Assessment:: 09/03/21 Session #:: 27 - Cholesterol/Lipids Triglycerides (mg/dL): 333 Total Cholesterol (mg/dL): 158 LDL Cholesterol (mg/dL): 61 HDL Cholesterol (mg/dL): 30 Determine presence & major risk factors that modify LDL goal: Hypertension or hypertensive medication, Low HDL cholesterol <40 mg/dL*, Family history of premature CHD in Male < 55 years: female <65 yearsFa, Age men > 45 years; women >/= 55 years Outcomes/Goals: Pt IDs own risk factors & lifestyle modifications by Session 10, Verbalizes symptoms of angina & response by session 3., Pt independently manages Intervention/Plan: Instruct on personal lipid levels & lipid goals/NCEP guidelines, Instruct on cholesterol Referral to dietitian:: No - appointment on 06/20/2021 30-day Reassessments:: Progressing - Diabetes (Other Core Measures) Diabetes Type: Diagnosis Type II ICD-10 E11 Fasting blood glucose:: 123 - FSBS range 95-187 Hgb A1C (4.2 -6.3): 6.6 Insulin dependent injection/pump?: Yes Non-Insulin Dependent?: Yes Do you monitor your blood sugar at home?: Yes Referral to Diabetic Clinic:: No Outcomes/Goals:: Able to state symptoms of, Able to state, Able to state Intervention/Plan:: Instruct on, Instruct on 30-day Reassessments:: Progressing - Weight Mgt (Other Care) Not Applicable: No Height: 5 ft 4 in Weight:: 253 lb 8 oz BMI: 43.4 Diagnosis Overweight/Obesity BMI> 30% ICD-10 E66: Yes Diagnosis High BMI/Morbid Obesity BMI> 35% ICD-10 Z68: Yes Outcomes/Goals: Pt sets, maintains & shows weight loss goal & trend during rehab Intervention/Plan: Instruct on ideal BMI & set weight loss goal w/patient, Assist pt to ID & incorporate diet changes for weight loss by S9, Encourage goal of using 250-300dcal per session for weight loss 30 day Reassessments:: Not Met - Healthy Eating Habits Will attend diet classes:: Yes Outcomes/Goals:: Consume diet rich in vegs,fruits,whole grain/high fiber,fish,lean meat, Limit sat/trans fats,cholesterol & added salts & sugars Intervention/Plan:: Assess current eating habits 30-day Reassessments:: Progressing - Education Gave educational materials for:: Signs & symptoms of hypoglycemia, Signs & symptoms of hyperglycemia, Relate diabetes to coronary artery disease, Healthy eating Nutrition - 90-Day Assessment Nutrition - Final Assessment Medical - Initial Assessment Medical- 30-Day Assessment Medical- 60-Day Assessment - Visit Date of Eval: 09/03/21 Session #:: 27 - Medication Compliance Preventative Medication(s):: Aspirin, Statin/lipid, Beta jake, Warfarin/Coumadin H/O mental health issues: depression, anxiety, or addiction?: No Doesn?t believe in the benefits of treatment?: No Believes medications are unnecessary or harmful?: No Has a concern about medication side effects?: No Expresses concern over the cost of medications?: No Outcomes/Goals: Verbalizes medications,desired effect & common side effects @ DC, Pt self-reports following medication regimen, Keeps card in wallet w/medications listed by DC Interventions/plans: Instruct on medication effects & side effects, Review medication list w/patient every two weeks, Instruct importance of taking meds as ordered & assist problem solving 30-day Reassessments:: Progressing - Tobacco Use Tobacco Use: Non-smoker - Hypertension Hypertension Diagnosis:: Hypertension ICD-10 I10 Resting Blood Pressure:: 130/72 [place] [employer] Hypertension Guidelines: [place] [employer] Hypertension Guidelines. Normal BP Less than 120/80. Elevated BP 120/80. Hypertension Stage 1: BP 130-139/80-89. Hypertesnion Stage 2: BP 140 or higher/90 or higher. Hypertension Crisis: BP higher than 180/120 Peak Exercise Blood Pressure:: 164/90 Outcomes/Goals: Able to verbalize/achieve optimal blood pressure <130/80, Incorporates diet changes & exercise for blood pressure control by DC Interventions/plan: Instruct on optimal blood pressure, hypertension & medications, Instruct on effects of sodium, alcohol, stress, exercise &h ypertension 30 day Reassessments:: Progressing - Tobacco Cessation Referral Smoking Cessation Referral:: No Individual Education/Counseling:: No Education Schedule Given:: Yes - Online resources and printed education book provided. Medical- 90-Day Assessment Medical - Final Assessment Psychosocial - Initial Assess Psychosocial - 30-Day Assess Psychosocial - 60-Day Assess - VIsit Date of Eval: 09/03/21 Session #:: 27 Not Applicable: Yes History of previous Mental disease:: No - Psychosocial Test Tool Used:: PHQ-9 Questionnaire phq-9 Severity: Severity. 1-4 Minimal Depression. 5-9 Mild Depression. 10-14 Moderate Depression. 15-19 Moderately Sever Depression. 20-27 Severe Depression. Rule: - Referral to Behavioral Health PS - Interventions: Yes Attend Stress Management Classes, No Referral to Behavioral Health if PHQ-9 score >9:, No Referral to [facility], No Referral to Physician if PHQ-9 if score is 5-9: - Outcomes/Goals: See list Psychosocial Outcomes/Goals:: ID's personal stressors & 2 strategies to manage stress by discharge - Intervention/Plan: See List Interventions/Plan:: Assess stressors,coping strategies & signs of derpression on admission, Instruct/assist pt to develop coping & personal stress Mgt strategies, Instruct patient to recognize signs & symptoms of depression, Instruct patient to recog - 30-day Reassessments: 30 day Reassessments:: Progressing Psychosocial - 90-Day Assess Psychosocial - Final Assessmen Patient Health Questionnaire 60-Day Re-eval Assessment 1. Little interest or pleasure in doing things: Not at all 2. Feeling down, depressed, or hopeless: Not at all 3. Trouble falling or staying asleep, or sleeping too much: More than half the days 4. Feeling tired or having little energy: More than half the days 5. Poor appetite or overeating: Several days 6. Feeling bad about yourself -- or that you are a failure or have let yourself or your family down: Several days 7. Trouble concentrating on things, such as reading the newspaper or watching television: Not at all 8. Moving or speaking so slowly that other people could have noticed. Or the opposite - being so fidgety or restless that you have been moving around a lot more than usual: Not at all 9. Thoughts that you would be better off , or of hurting yourself in some way: Not at all How difficult have these problems made it for you to do your work, take care of things at home, or get along with other people?: Somewhat difficult Total Score: 6 Self-Efficacy 60-Day Re-eval Assessment We would like to know how confident you are in doing certain activities. Please select your confidence level for:: Select your confidence level for the following using the scale 1-10 where 1 is not at all confident and 10 is totally confident. Your score is the average of all 6 responses. Fatigue: How confident are you that you can keep the fatigue caused by your disease from interfering with the things you want to do? Select Number: 7 Physical Discomfort or Pain: How confident are you that you can keep the physical discomfort or pain of your disease from interfering with the things you want to do? Select Number: 6 Emotional Distress: How confident are you that you can keep the emotional distress caused by your disease from interfering with the things you want to do? Select Number: 8 Other Symptoms or Health Problems: How confident are you that you can keep other symptoms or health problems from interfering with the things you want to do? Select Number: 7 Different Tasks and Activities: How confident are you that you can do the differ ent tasks and activities needed to manage your health condition so as to reduce your need to see a doctor? Select Number: 8 Medication: How confident are you that you can do things other than just taking medication to reduce how much your illness affects your everyday life? Select Number: 8 Total Score:: 7 Nutrition Survey
[2021-09-03 12:59] VITALS: BP 130/72; BP 164/90; BMI 43.4
== END 2021-09-11 23:59 ==
LOC: CR 14:30
PROVIDERS: PCP Internal Medicine; Referring Provider Internal Medicine Cardiovascular Disease; Visit Provider Internal Medicine Cardiovascular Disease
DX: I10 Essential (primary) hypertension (principal); I35.0 Nonrheumatic aortic (valve) stenosis; I25.10 Atherosclerotic heart disease of native coronary artery without angina pectoris
CPT/HCPCS: 93798

== ENCOUNTER 2021-09-13 10:56 | Outpatient (RCR) | payer MEDICARE, MEDICAID, SELFPAY ==
[2021-09-03 12:59] VITALS: BMI 43.4
== END 2021-10-12 23:59 ==
LOC: DC 10:56
PROVIDERS: PCP Internal Medicine; Visit Provider Internal Medicine Cardiovascular Disease
DX: E11.9 Type 2 diabetes mellitus without complications (principal)
CPT/HCPCS: G0109

== ENCOUNTER → 2021-09-13 12:47 | Outpatient (CLI) | payer MEDICARE, MEDICAID, SELFPAY ==
[2021-09-03 12:59] VITALS: BMI 43.4
--- NOTE | 2021-09-13 12:51 | VDLE_ITS ---
Reason For Study: DVT RIGHT GSV is normal. CFV is compressible, spontaneous, phasic, competent and demonstrates normal augmentation. FV is compressible, spontaneous, phasic, competent and demonstrates normal augmentation. POP V is compressible, spontaneous, phasic, competent and demonstrates normal augmentation. T/P Trunk is compressible. PTV is compressible. RT PerV is compressible. Right GastrocV is partially noncompressible with bright intraluminal echoes consistent with Chronic DVT. Compared to 04/26/2021. Procedure This is a venous duplex using B-mode, color flow and spectral Doppler. Exam performed in department. A preliminary report was called and/or faxed to [facility]. VL/Venous Duplex US, Unilateral Interpretation Summary Chronic deep venous thrombosis right gastrocnemius vein. Some improvement noted from previous examination of April 26, 2021 Patent and compressible right great saphenous vein Ordering Physician: Ophelia Soria Referring Physician: Ophelia Soria Performed By: Livier Espinoza RVT
== END ==
PROVIDERS: PCP Internal Medicine; Referring Provider Internal Medicine; Visit Provider Internal Medicine
DX: I82.561 Chronic embolism and thrombosis of right calf muscular vein (principal); E11.9 Type 2 diabetes mellitus without complications
CPT/HCPCS: 93971; G0109

== ENCOUNTER 2021-09-17 06:19 | Day surgery (SDC) | payer MEDICARE, MEDICAID, SELFPAY ==
[2021-09-03 12:59] VITALS: BMI 43.4
--- NOTE | 2021-09-14 15:17 | HP.PCM_ITS ---
History and Physical Date of Admission: 09/17/21 Chief Complaint: follow up History of Present Illness: This is a 60 Y/O female who was seen and evaluated at our office today as follow up. Pain: pain between shoulder blades, upper-mid back Quality: constant Region: pain in between shoulder blades, upper-mid back pain. Severity: sharp/ stabbing Timing: Since Jul 2015 Aggravated by: reaching back/up, leaning forward, putting clothes on Relieved by: pain medication Pain score (out of 10): 8/10 Other info: Patient is here for a follow up .Reports pain in between th shoulder blades and down mid-upper back. states pain is constant sharp/stabbing. Needs refill on lyrica. would discuss another injection. Review of Systems: Patient denies any fever, chills, headache, change in weight without trying, vision or hearing problems.Notes SOB on occasion. No cp,aguilar, pnd, orthopnea, or peripheral edema.They note no lumps or swollen glands, no new rashes, changing moles, or change in bowel or bladder function. Mood has improved. Past Medical History: h/o migraines h/o CAD h/o GERD h/o high cholesterol h/o vitamin D deficiency h/o neuropathy h/o Type II Diabetes h/o obstructive sleep apnea h/o asthma h/o pulmonary embolism h/o HTN h/o depression h/o GERD h/o Pneumonia h/o CHF h/o Pulmonary Edema s/p cervical spine sx 2005 s/p appendectomy s/p RT rotator cuff repair s/p hernia repair s/p s/p left cataract sx 09/2017 s/p rt cataract sx 11/08/2020 s/p lumbar surgery-cyst removed L5 07/25/2020 s/p aortic valve replaced 2020 Family History: ======== Structured Family History ======== Father: Coronary artery bypass graft, Coronary artery disease Mother: Diabetes mellitus, Coronary artery disease Brother: Diabetes mellitus Sister: Diabetes mellitus Social History: [Tobacco: Never smoker Pipe Smoker: No Cigar Smoker: No Chewing Tobacco User: No] Living situation: Occupation: retired Tobacco: Denies EtOH: Denies Rec. drugs: Denies Allergies: erythromycin, penicillin, Bactrim, sulfa drug, oxycodone, baclofen, clindamycin Medications: 1) albuterol 2.5 mg/3 mL (0.083%) inhalation solution, q2 hrs prn as directed 2) albuterol 90 mcg/inh inhalation aerosol, 2 puffs q4 hrs prn 3) alendronate 70 mg oral tablet, 1 tab po once per week 4) aspirin 81 mg oral tablet, One tablet daily 5) azelastine 137 mcg/inh (0.1%) nasal spray, 2 sprays each nostril daily 6) beclomethasone compounding powder, use as directed 7) Breo Ellipta 100 mcg-25 mcg/inh inhalation powder, 1 puff once daily as directed 8) Calcium 600+D 600 mg-400 intl units oral tab, Take 1 tablet by mouth 2 times a Day 9) coumadin 9mg, Take 1 tablet by mouth once daily 10) cyanocobalamin 100 mcg oral tablet, extended release, Take 1 tablet by mouth every morning 11) dilTIAZem 240 mg/24 hours oral capsule, extended release, Take 1 tablet by mouth every morning 12) docusate sodium 100 mg oral capsule, Take 1 tablet by mouth 2 times a Day 13) DuoNeb 0.5 mg-2.5 mg/3 mL inhalation solution, q4-6hrs prn 14) EPINEPHrine 0.3 mg injectable kit, as directed 15) fenofibrate 145 mg oral tablet, Take 1 tablet by mouth every evening 16) FLUoxetine 20 mg oral capsule, Take 2 tablet by mouth every morning 17) fluticasone 50 mcg inhalation powder, bid 18) furosemide 20 mg oral tablet, One tablet BID 19) Incruse Ellipta 62.5 mcg/inh inhalation powder, 1 inhalation once daily 20) levaquin 500mg , Take 1 tablet by mouth once daily 21) levocetirizine 5 mg oral tablet, One tablet daily 22) lisinopril 20 mg oral tablet, Take 1 tablet by mouth once daily 23) lisinopril-hydrochlorothiazide 10 mg-12.5 mg oral tablet, Take 1 tablet by mouth 2 times a Day 24) Lyrica 150 mg oral capsule, 1 capsule po tid 25) meclizine 25 mg oral tablet, Take 1 tablet by mouth every 8 hours prn 26) Melatonin 5 mg oral capsule, Take 1 tablet by mouth every evening 27) Milk of Magnesia 8% oral suspension, 30ml daily as directed prn 28) Multiple Vitamins oral tablet, Take 1 tablet by mouth every morning 29) nystatin 100,000 units/g topical powder, as directed 30) omeprazole 20 mg oral delayed release tablet, Take 1 tablet by mouth once daily 31) ondansetron 4 mg oral tablet, Take 1 tablet by mouth every 8 hours prn 32) oxycodone-acetaminophen 5 mg-325 mg oral tablet, Take 1 tablet by mouth every 8 hours prn 33) pitavastatin 4mg oral tablet, Take 1 tablet by mouth every evening 34) potassium chloride 10 mEq oral tablet, extended release, Take 1 tablet by mouth 2 times a Day 35) PT to eval and treat, 2-3 X/Week for 6 weeks 36) PT/ INR, Coumadin therapy. 37) PTINR, warfarin 38) rizatriptan 5 mg oral tablet, as directed prn 39) semaglutide 1mg /dose pen injector 2mg/1.5ml dose, 1ml SQ in the morning 40) Singulair 10 mg oral tablet, Take 1 tablet by mouth every morning 41) Symbicort 80 mcg-4.5 mcg/inh inhalation aerosol, 2 puffs bid as directed 42) tiZANidine 4 mg oral capsule, Take 1 tablet by mouth 3 Times a Day prn 43) traZODone 50 mg oral tablet, Take 1 tablet by mouth every evening 44) Tresiba FlexTouch 100 units/mL subcutaneous solution, 50 units SQ bid 45) Tylenol 8 Hour 650 mg oral tablet, extended release, Take 1 tablet by mouth every 6 hours prn 46) Ventolin HFA 90 mcg/inh inhalation aerosol, bid 47) Vitamin D2 50,000 intl units oral capsule, 1 tab po every Friday 48) Voltaren 1% topical gel, apply 2 gm to the right shoulder up to 4 times per day. 49) Welchol 625 mg oral tablet, Take 1 tablet by mouth once daily Physical Examination: Wt: 256.4 lb Ht/Ln: 64 in BMI: 44.0 BP: 110/58 Pulse: 75 RR: 16 Temp: 97.1F Well nourished and well developed in no acute distress. Alert and oriented to person, place and time. Affect is normal and appropriate. Mucosa pink and moist. Respirations even and unlabored. Neck is supple without significant lymphadenopathy or thyromegaly. Abdomen soft & non-tender. No HSM or masses appreciated. Extremities show no cyanosis, clubbing, or edema. Gait is Antalgic. ROM of the right shoulder is severely limited due to pain unable to raised arm above head improved. Thoracic paraspinal muscle tenderness. Thoracic ROM is limited due to pain. Bilateral thoracic facet challenge is positive. Lumbar ROM is limited due to pain. Lumbar paraspinal muscle tenderness worse on the right. Bilateral lumbar facet loading is positive on the right. SLR is negative on the right. Positive surgical scar that is well healed. Motor and sensory exam is unchanged. 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 (Transmitted by WANDA YATES NP) Continue current medication regime. will call for refills. MRI of the right shoulder was reviewed again with the pt today and they appear to understand. MRI of the lumbar and thoracic spine was reviewed with the pt today and they appear to understand. Pt was encouraged to take miralax daily to help with constipation, education regarding medication was completed. Pt is to continue to follow up with orthopedic surgeon regarding her shoulder issues Continue with her TENS unit. OARRS was reviewed today and compliant UDS was reviewed, appears compliant with how the pt reports she is taking the medication SOAPP score is 2 Life style modifications were also discussed today and the pt appears to under stand. PEG was reviewed today. Weight loss was recommended today through diet and exercise. There are no signs of diversion or addiction with the pt, there is also no signs of abuse or misuse, continues to do well with their medications without any side effects, we will continue monitoring the pt closely. Risks and benefits of the above mds were discussed with the pt and they appear to understand. The common side effects of the medications were discussed and all of their questions and concerns were answered and they appear to understand Pt is to continue with her HEP. Pt has tried multiple modalities, we will schedule the pt for a right thoracic radio frequency ablation T7-T10 under fluoroscopy as the pt has had excellent relief from this procedure in the past however, that relief has subsided. We have discussed the risks, benefits as well as alternatives of the procedure and the patient appears to understand and would like to proceed with the above plan. The above plan was discussed today with the pt in details and they appear to understand and agrees to continue with the plan.
[2021-09-17] VITALS (7 sets, daily range): BP systolic 137–147; BP diastolic 66–81; PULSE 72–75; RESP 16–18; TEMP 36.1; O2SAT 93–98; BMI 44.6
[2021-09-17 06:56] LABS: INR Fingerstick 1.3; Prothrombin Time Fingerstick 15.2 SEC (11.9-14.4)
[2021-09-17] MEDS: Lactated Ringers 1,000 ML 15 ML IV (07:21)
[2021-09-17 07:26] LABS: Bedside Glucose 113 mg/dL (70-110)
--- NOTE | 2021-09-17 07:56 | RAD_ITS ---
STUDY: X-RAY - THORACIC SPINE REASON FOR EXAM: Female, 60 years old. RADIO FREQ ABLATION T7-T10,RIGHT TECHNIQUE: 3 view(s) of the thoracic spine were obtained. COMPARISON: None. FINDINGS: Intraoperative imaging provided for right T7-T10 radiofrequency ablation. RAD/Thoracic Spine 3 Views IMPRESSION: Intraoperative imaging provided for right T7-T10 radiofrequency ablation. Electronically Signed: Lon Fuchs MD at 13:34 EST , Service support ,
[2021-09-17] MEDS: Bupivacaine 0.25% 30 ML Vial (08:08)
[2021-09-17] MEDS: Lidocaine 1% (30 ml sdv) 30 ML Vial (08:08)
[2021-09-17] MEDS: MethylPREDNISolone Acetate 40 MG/ML Vial IM (08:08)
--- NOTE | 2021-09-17 08:22 | PCM.OPRPT ---
Report of Operation Date of Procedure: 09/17/21 Description of Surgical Findings:: PREOPERATIVE DIAGNOSES: 1. Thoracic spondylosis. 2. Thoracic degenerative disk disease. 3. Thoracic facet arthropathy. POSTOPERATIVE DIAGNOSES: 1. Thoracic spondylosis. 2. Thoracic degenerative disk disease. 3. Thoracic facet arthropathy. PROCEDURE PERFORMED: Right-sided thoracic radiofrequency ablation of the medial branch at T7,T8, T9, and T10. ANESTHESIA: MAC. BLOOD LOSS: Minimal. COMPLICATIONS: None. DESCRIPTION OF PROCEDURE: History and physical of today was reviewed. Risks and benefits of the procedure were explained. The patient understood and agreed to proceed. Informed consent was obtained. IV inserted per routine protocol. The patient was taken to the operating room and placed in the prone position with a pillow positioned underneath the chest. The mid back area was prepped and draped in a sterile fashion using iodine x3. Under fluoroscopy guidance in an oblique view, the T7 through T10 vertebral bodies were visualized. The skin and subcutaneous tissue was anesthetized with approximately 10 mL of 1% lidocaine using a 25-gauge regular needle. Under direct visualization on fluoroscopy at approximately 25-degree angle, starting on the right T10, ending on the right T7, passing through the T8 and T9, using a 20-gauge 10-cm with a 10-mm curved active-tip radiofrequency ablation needle, the needle was passed through the skin. The tip of the needle was maneuvered and directed towards the epiphyseal junction of each corresponding vertebra. Once the tip of the needle was at the vicinity of the medial branch and in contact with the bone, the needle was pulled approximately 2 mm off the bone. The stylette of each needle was then removed. After negative aspiration of blood or CSF and confirmation on AP, oblique as well as lateral view, the radiofrequency ablation probe was then inserted at each level. Impedance was then recorded at T7 to be 302 ohm, at T8 to e 228 ohm, at T9 to be 306 ohm, and at T10 to be 331ohm. Motor-evoked potential was then initiated to 1.5 volts without any motor response at each corresponding level. The probe was then removed intact and a total of 6 ml of preservative-free 2% lidocaine was injected in divided doses between those four levels after negative aspiration of blood or CSF. The radiofrequency ablation probe was then reinserted. After confirmation on AP, oblique as well as lateral view, radiofrequency ablation was then initiated to 80 degree Celsius for 90 second at each level. Once concluded, the probe was then removed intact. A total of 6 ml of preservative-free 0.25% Marcaine with 40 mg of Depo-Medrol was injected in divided doses between those four levels. The needles were then removed intact. The patient experienced no sign or symptoms of intrathecal or intravascular injection. The patient experienced no paresthesia., The procedure was completed without any apparent difficulty or any complication the patient appeared to tolerate well, sensory as well as motor exam was unchanged from prior to the procedure. Assessment and plan: This is a 60-year-old female with thoracic spondylosis, thoracic degenerative disc disease, thoracic facet arthropathy status post right-sided thoracic radiofrequency ablation of the medial branch T7-T10, patient will continue her current medications, patient will follow in approximately 2 weeks for reevaluation.
== END 2021-09-17 09:16 | disposition home or self-care (01) ==
LOC: SDC 06:22 → AC 06:23
PROVIDERS: PCP Internal Medicine; Referring Provider Anesthesiology Pain Medicine; Visit Provider Anesthesiology Pain Medicine
PROC: (CPT 64633; principal; 2021-09-17 07:55)
DX: M51.14 Intervertebral disc disorders with radiculopathy, thoracic region (principal); M47.814 Spondylosis without myelopathy or radiculopathy, thoracic region; M41.9 Scoliosis, unspecified; M19.011 Primary osteoarthritis, right shoulder; M51.37 Other intervertebral disc degeneration, lumbosacral region; M47.817 Spondylosis without myelopathy or radiculopathy, lumbosacral region; I25.10 Atherosclerotic heart disease of native coronary artery without angina pectoris; K21.9 Gastro-esophageal reflux disease without esophagitis; J45.909 Unspecified asthma, uncomplicated; F32.A Depression, unspecified; E11.40 Type 2 diabetes mellitus with diabetic neuropathy, unspecified; I11.0 Hypertensive heart disease with heart failure; I50.9 Heart failure, unspecified; Z86.711 Personal history of pulmonary embolism; Z79.51 Long term (current) use of inhaled steroids; Z79.01 Long term (current) use of anticoagulants; Z79.899 Other long term (current) drug therapy; Z79.891 Long term (current) use of opiate analgesic
CPT/HCPCS: 64633; 64634; 36416; 72072; 76000; 82962; 85610; J7120; J2405

== ENCOUNTER 2021-09-28 14:30 | Outpatient (RCR) | payer MEDICARE, MEDICAID, SELFPAY ==
[2021-09-03 12:59] VITALS: BMI 43.4
[2021-09-12 00:31] VITALS: BP 130/72; BP 164/90
== END 2021-10-12 23:59 ==
LOC: CR 14:30
PROVIDERS: PCP Internal Medicine; Referring Provider Internal Medicine Cardiovascular Disease; Visit Provider Internal Medicine Cardiovascular Disease
DX: I10 Essential (primary) hypertension (principal); I35.0 Nonrheumatic aortic (valve) stenosis; I25.10 Atherosclerotic heart disease of native coronary artery without angina pectoris
CPT/HCPCS: 93798

== ENCOUNTER 2021-11-29 13:32 | Outpatient (RCR) | payer MEDICARE, MEDICAID, SELFPAY ==
[2021-09-03 12:59] VITALS: BMI 43.4
== END 2021-12-10 23:59 | disposition home or self-care (01) ==
LOC: DC 13:32
PROVIDERS: PCP Internal Medicine; Visit Provider Internal Medicine Cardiovascular Disease
DX: E11.9 Type 2 diabetes mellitus without complications (principal)
CPT/HCPCS: G0109

== ENCOUNTER 2021-12-12 12:26 | Outpatient (RCR) | payer MEDICARE, MEDICAID, SELFPAY ==
[2021-09-03 12:59] VITALS: BMI 43.4
== END 2022-01-10 23:59 ==
LOC: DC 12:26
PROVIDERS: PCP Internal Medicine; Visit Provider Internal Medicine Cardiovascular Disease
DX: E11.9 Type 2 diabetes mellitus without complications (principal)
CPT/HCPCS: 97803

== ENCOUNTER 2022-01-03 09:38 | Outpatient (CLI) | payer MEDICARE, MEDICAID, SELFPAY ==
[2021-09-03 12:59] VITALS: BMI 43.4
[2022-01-03 09:50] LABS: Bacteria 0 SEEN /hpf (None Seen); Mucous, Urine 0 SEEN /hpf (<or=2+); Red Blood Cells-Urine 0 SEEN /hpf (0-5)
[2022-01-03 11:06] LABS: Color, Urine Yellow (Yellow); Glucose, Dipstick 1000 mg/dl (Normal); Ketone-Dipstick Negative (Negative); Leukocyte Esterase-Dipstick 100 /ul (Negative); Nitrite-Dipstick Negative (Negative); Occult Blood-Urine Negative /ul (Negative); Protein-Dipstick Negative (Negative); Urine Bilirubin Dipstick Negative (Negative); Urine Clarity Clear (Clear); Urine Urobilinogen Normal (Normal)
[2022-01-03 11:07] LABS: Absolute Lymphocyte Count 2.55 X10^3/uL (0.83-4.51); Absolute Neutrophil Count 2.8 X10^3/uL (2.0-7.7); Basophil# 0.07 X10^3/uL; Basophil% 1.1 % (0-1); Eosinophil# 0.12 X10^3/uL; Eosinophils% 1.9 % (0-5); Hematocrit 43.1 % (37-47); Hemoglobin 14.8 g/dL (12.0-15.0); Lymphocyte # 2.55 X10^3/ul (0.83-4.51); Mean Corp Hgb Conc 34.3 g/dL (32-36); Mean Corpuscular Hgb 29.8 pg (27.0-32.0); Mean Corpuscular Volume 86.7 fL (81-99); Mean Platelet Vol. 12.2 fl (6.2-12.0); Monocyte# 0.63 X10^3/uL; Monocyte% 10.1 % (0-10); NRBC Flagged by Analyzer 0 % (0-5); Neutrophil # 2.81 X10^3/uL (2.7-7.7); Neutrophil % 45.3 % (47-70); POSITIVE COUNT YES; Platelet Count 157 K/mm3 (150-450); RBC Distribution Width CV 14.4 % (11.6-14.6); RBC Distribution Width SD 45.5 fl (35.1-43.9); Red Blood Count 4.97 M/mm3 (4.2-5.4); White Blood Count 6.2 K/mm3 (4.4-11.0)
[2022-01-03 11:08] LABS: Differential Indicated SCAN CRITERIA MET
[2022-01-03 11:13] LABS: Renal Epithelial Cells 0-5 SEEN /hpf (0-5); Squamous Epithelial Cells - UA 0-5 SEEN /hpf (5-10); White Blood Cells 0-5 SEEN /hpf (0-5)
[2022-01-03 11:33] LABS: Microalbumin,Random Urine 11.2 mg/L (NO RANGE EST.); Microalbumin:Creatinine Ratio 15.8 mg/g CRE (<30 mg/g CRE)
[2022-01-03 11:43] LABS: Platelet Morphology LARGE
[2022-01-03 11:44] LABS: Vitamin D,25 Hydroxy 46.8 ng/mL
[2022-01-03 11:50] LABS: ALB/GLOB Ratio 0.9 RATIO (0.9-2.4); AST(SGOT) 52 U/L (15-37); Alanine Aminotransfer ALT/SGPT 48 U/L (13-56); Albumin, Serum 3.2 g/dL (3.2-5.0); Alkaline Phosphatase 73 U/L (45-117); Anion Gap 5 (5-15); BUN 11 mg/dL (7-18); BUN/Creat Ratio 20.9 RATIO (10-20); Calcium,Total 9.2 mg/dL (8.5-10.1); Chloride 108 mmol/L (98-107); Cholesterol 156 mg/dL (200); Creatinine, Serum 0.53 mg/dL (0.55-1.02); EST Glomerular Filtration Rate 125 mL/min (>60); Est Glom Filt Rate - Afr Amer 152 mL/min (>60); Globulin 3.4 g/dL (2.2-4.2); Glucose 137 mg/dL (74-106); High Density Lipoprotein 33 mg/dL; Potassium 3.7 mmol/L (3.5-5.1); Protein, Total 6.6 g/dL (6.4-8.2); Sodium Level 139 mmol/L (136-145); Thyroid Stim Hormone (TSH) 3.31 uIU/mL (0.358-3.74); Triglycerides 290 mg/dL; Very Low Density Lipoprotein 58 mg/dL (5-40)
== END 2022-01-03 23:59 | disposition home or self-care (01) ==
LOC: LAB 09:40
PROVIDERS: PCP Internal Medicine; Visit Provider Internal Medicine
DX: I10 Essential (primary) hypertension (principal); E78.00 Pure hypercholesterolemia, unspecified; E55.9 Vitamin D deficiency, unspecified
CPT/HCPCS: 36415; 80053; 80061; 81001; 82043; 82306; 82570; 84443; 85025

== ENCOUNTER 2022-01-14 13:45 | Outpatient (RCR) | payer MEDICARE, MEDICAID, SELFPAY ==
[2021-09-03 12:59] VITALS: BMI 43.4
== END 2022-02-09 23:59 ==
LOC: DC 13:45
PROVIDERS: PCP Internal Medicine; Visit Provider Internal Medicine Cardiovascular Disease
DX: E11.9 Type 2 diabetes mellitus without complications (principal)
CPT/HCPCS: 97803

== ENCOUNTER → 2022-04-18 | Outpatient (CLI) | payer MEDICARE, MEDICAID, SELFPAY ==
[2021-09-03 12:59] VITALS: BMI 43.4
--- NOTE | 2022-04-18 15:04 | VDLE_ITS ---
Reason For Study: pain RIGHT GSV is normal. CFV is compressible, spontaneous, phasic, competent and demonstrates normal augmentation. FV is compressible, spontaneous, phasic, competent and demonstrates normal augmentation. POP V is compressible, spontaneous, phasic, competent and demonstrates normal augmentation. T/P Trunk is compressible. PTV is compressible. RT PerV is compressible. Procedure This is a venous duplex using B-mode, color flow and spectral Doppler. Exam performed in department. The exam was abbreviated due to the COVID 19 protocol. The exam was diagnostic. A preliminary report was called and/or faxed to Dr. Soria. VL/Venous Duplex US, Unilateral Interpretation Summary There is no evidence of right lower extremity deep vein thrombosis. Right great saphenous vein appears patent and compressible segmentally. 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
== END | disposition home or self-care (01) ==
PROVIDERS: PCP Internal Medicine; Referring Provider Internal Medicine; Visit Provider Internal Medicine
DX: M79.661 Pain in right lower leg (principal)
CPT/HCPCS: 93971

== ENCOUNTER 2022-04-29 08:16 | Day surgery (SDC) | payer MEDICARE, MEDICAID, SELFPAY ==
[2021-09-03 12:59] VITALS: BMI 43.4
[2022-04-29] VITALS (7 sets, daily range): BP systolic 106–158; BP diastolic 59–86; PULSE 79–82; RESP 16–18; TEMP 36.6–36.9; O2SAT 92–99; BMI 43.0
[2022-04-29] MEDS: Lidocaine 1% (5 ml sdv) 5 ML Vial (09:05)
[2022-04-29] MEDS: Bupivacaine 0.25% 30 ML Vial (09:05)
[2022-04-29] MEDS: 0.9% Normal Saline (Pres. free 10 ML Vial (09:05)
[2022-04-29] MEDS: MethylPREDNISolone Acetate 80 MG/ML Vial (09:05)
--- NOTE | 2022-04-29 09:50 | RAD_ITS ---
PROCEDURE: Caudal block. DATE OF EXAMINATION: 04/29/2022. INDICATION: Female, 61 years old. Chronic low back pain. FLUOROSCOPY TIME (if supplied): (15 seconds) minutes/seconds. 3 images were submitted. RAD/Fluor Guidance for Spine Inj IMPRESSION: Intraoperative imaging provided for caudal block. Electronically Signed: Lon Fuchs MD at 12:51 EDT ,
[2022-04-29 10:01] LABS: Bedside Glucose 111 mg/dL (74-106)
--- NOTE | 2022-04-29 10:44 | OP.PCM_ITS ---
Report of Operation Date of Procedure: 04/29/22 Pre-Operative Diagnosis: Lumbosacral radiculopathy, lumbosacral degenerative di sc disease, lumbosacral spinal stenosis Post-Operative Diagnosis: Lumbosacral radiculopathy, lumbosacral degenerative disc disease, lumbosacral spinal stenosis Surgery/Procedure Performed:: Caudal epidural steroid injection under fluoroscopic guidance Type of Anesthesia: MAC Estimated Blood Loss (mL): Minimal Description of Procedure: DESCRIPTION OF PROCEDURE: History and physical of today was reviewed. Risks and benefits of the procedure were explained. The patient understood and agreed to proceed. Informed consent was obtained. IV inserted per routine protocol. The patient was taken to the operating room and placed in the prone position with a pillow positioned underneath the abdomen. The lower back and tailbone area was prepped and draped in a sterile fashion using iodine x3. Under fluoroscopy guidance on a lateral view, the caudal space was identified. The skin and subcutaneous tissue was anesthetized with approximately 3 mL of 1% lidocaine using a 25-gauge regular needle. Under direct visualization with fluoroscopy, using a 22-gauge 3-1/2-inch spinal needle, the needle was advanced via the skin through the sacral hiatus. The tip of the needle was passed through the sacrococcygeal ligament and advanced to approximately S4 area. After negative aspiration of blood or CSF, a total of 3 mL of contrast was injected to confirm correct placement of the needle as well as cephalad spread. The spread was followed to approximately L5 area. After confirmation on AP as well as lateral view and repeated negative aspiration, a total of 15 mL of preservative-free 0.125% Marcaine with 80 mg of Depo-Medrol was injected easily. The needle was then removed intact. The patient experienced no sign or symptoms of intrathecal or intravascular injection. The patient experienced no paresthesia. The procedure was completed without any apparent difficulty or any complications. The patient appeared to tolerate it well. ASSESSMENT AND PLAN: This is a 61-year-old female with lumbosacral radiculopathy, lumbosacral degenerative disc disease, lumbosacral spinal stenosis status post caudal epidural steroid injection, patient will continue her current medications, patient will follow in approximately 2 weeks for reevaluation. Complications None
[2022-05-14 16:50] LABS: INR Fingerstick 1.1; Prothrombin Time Fingerstick 13.6 SEC (11.7-14.9)
== END 2022-04-29 11:47 | disposition home or self-care (01) ==
LOC: SDC 08:17 → AC 08:39
PROVIDERS: PCP Internal Medicine; Referring Provider Anesthesiology Pain Medicine; Visit Provider Anesthesiology Pain Medicine
PROC: 3E0S3BZ Introduction of Anesthetic Agent into Epidural Space, Percutaneous Approach (ICD-10-PCS; CPT 62282; principal; 2022-04-29 09:35)
DX: M51.17 Intervertebral disc disorders with radiculopathy, lumbosacral region (principal); J44.9 Chronic obstructive pulmonary disease, unspecified; E66.01 Morbid (severe) obesity due to excess calories; Z68.42 Body mass index [BMI] 45.0-49.9, adult; E11.9 Type 2 diabetes mellitus without complications; Z79.4 Long term (current) use of insulin; I10 Essential (primary) hypertension; M48.07 Spinal stenosis, lumbosacral region; I25.10 Atherosclerotic heart disease of native coronary artery without angina pectoris; I35.0 Nonrheumatic aortic (valve) stenosis; E78.00 Pure hypercholesterolemia, unspecified; G47.33 Obstructive sleep apnea (adult) (pediatric); F41.9 Anxiety disorder, unspecified; Z95.2 Presence of prosthetic heart valve; Z79.01 Long term (current) use of anticoagulants; Z99.81 Dependence on supplemental oxygen; Z79.891 Long term (current) use of opiate analgesic; Z79.899 Other long term (current) drug therapy; Z86.718 Personal history of other venous thrombosis and embolism; Z86.16 Personal history of COVID-19; Z86.73 Personal history of transient ischemic attack (TIA), and cerebral infarction without residual deficits
CPT/HCPCS: 62323; 01992; 36416; 64483; 77003; 82962; 85610; J7120; J3490

== ENCOUNTER 2022-06-04 12:38 | Outpatient (RCR) | payer MEDICARE, MEDICAID, SELFPAY ==
[2021-09-03 12:59] VITALS: BMI 43.4
[2022-06-04 13:37] LABS: Prothrombin Time (Protime)PT. 13.1 SECONDS (11.7-14.9)
== END 2022-06-04 18:00 | disposition home or self-care (01) ==
LOC: LAB 12:38
PROVIDERS: PCP Internal Medicine; Referring Provider Internal Medicine; Visit Provider Internal Medicine
DX: I82.409 Acute embolism and thrombosis of unspecified deep veins of unspecified lower extremity (principal)
CPT/HCPCS: 36415; 85610

== ENCOUNTER 2022-06-13 11:15 | Day surgery (SDC) | payer MEDICARE, MEDICAID, SELFPAY ==
[2021-09-03 12:59] VITALS: BMI 43.4
[2022-06-13] VITALS (7 sets, daily range): BP systolic 112–183; BP diastolic 50–92; PULSE 68–78; RESP 16; TEMP 36.2–36.4; O2SAT 95–98; BMI 42.7
--- NOTE | 2022-06-13 11:30 | EGD_PTH ---
PATIENT: NATHALIE HERMAN LOC: EN U#:[id number] AGE/SX: 61/F ROOM: RE06/13/[address]: Dr. Devyn Alcantar DO : 1960 BED: DIS: 06/13/2022 SPEC #: [id number] RECD: 06/13/22 14:30 STATUS: KAMINI TILA #: [id number] LINN: 06/13/22 11:[address]: Devyn Alcantar DEPT: SURGICAL PATHOLOGY RECD BY: Ivet Sheridan ENTERED: 06/14/22 07:58 SP TYPE: EGD BIOPSY OT DR: Dr. Ophelia Soria DO Tissues: A - Gastric mucous membrane B - Esophagus, NOS C - Descending colon D - Rectum, NOS Procedures: Special Stain Group II Surgery Specimen Level IV Alcian Blue/PAS (control) HEADER OPERATION: [place] [place] PRE-OP DIAGNOSIS: Constipation, positive FIT, GERD TISSUE SUBMITTED: A - Gastric body biopsy, B - Distal esophagus biopsy, C - Descending colon polyp, D - Rectal polyp MICROSCOPIC DIAGNOSIS A. Gastric body, biopsy: Mild gastritis. See microscopic description and comment. B. Distal esophagus, biopsy: Fragments of gastroesophageal mucosa with moderate chronic inflammation and mild acute inflammation. Intestinal metaplasia (goblet cell metaplasia) not identified. See comment. C. Descending colon polyp, biopsy: Tubular adenoma. D. Rectal polyp, biopsy: A fragment of colonic mucosa with focal hyperplastic changes. SJ:alexandru 06/18/2022 COMMENT A. The results of immunohistochemistry for Helicobacter pylori will be reported separately ([id number]). B. Alcian blue/PAS stain with matched control is used in the evaluation of the specimen. The specimen predominantly consists of gastric mucosa. MICROSCOPIC DESCRIPTION Slides are reviewed. A. The specimen shows fragments of gastric mucosa with chronic inflammatory cell infiltrates in the lamina propria consisting of lymphocytes and plasma cells, consistent with mild chronic gastritis. GROSS DESCRIPTION A - Received in fixative is one container labeled with the patient's name and designated gastric body biopsy. The specimen consists of multiple irregular fragments of light day soft tissue that in aggregate measure 1 x 0.3 x 0.1 cm. The specimen is totally submitted in one cassette. B - Received in fixative is one container labeled with the patient's name and designated distal esophagus biopsy. The specimen consists of two irregular fragments of light day soft tissue that in aggregate measure 0.6 x 0.3 x 0.1 cm. The specimen is totally submitted in one cassette. C - Received in fixative is one container labeled with the patient's name and designated descending colon polyp. The specimen consists of one irregular fragment of light day soft tissue that measures 0.3 x 0.3 x 0.1 cm. The specimen is totally submitted in one cassette. D - Received in fixative is one container labeled with the patient's name and designated rectal polyp. The specimen consists of one irregular fragment of light day soft tissue that measures 0.4 x 0.3 x 0.1 cm. The specimen is totally submitted in one cassette. / SJ:rg 06/14/2022 TC:1 CPT: 05387 x4, 51132
--- NOTE | 2022-06-13 11:30 | IMM_PTH ---
PATIENT: NATHALIE HERMAN LOC: EN U#:[id number] AGE/SX: 61/F ROOM: RE06/13/[address]: Dr. Devyn Alcantar DO : 1960 BED: DIS: 06/13/2022 SPEC #: [id number] RECD: 06/14/22 09:31 STATUS: KAMINI RELeslee #: [id number] LINN: 06/13/22 11:[address]: Devyn Alcantar DEPT: IMMUNOHISTOCHEMISTRY RECD BY: Kala Peña ENTERED: 06/14/22 09:32 SP TYPE: IMMUNO OTHR DR: Dr. Ophelia Soria DO Tissues: A - Stomach, NOS Procedures: H Pylori (initial) PHYSICIAN & INSTITUTION [place] [id number] SPECIMEN INFORMATION: Tissue Source: A ? Gastric body biopsy Clinical Info: Constipation, positive fecal immunochemical test, GERD Specimen Number: [id number] CPT code: 13818 METHODOLOGY: Deparaffinized sections of prefer/formalin-fixed tissue or PAP/DQ stained slides are incubated with monoclonal/polyclonal antibodies/oligonucleotide probes. Localization is made via biotin free immunoperoxidase method. Appropriate controls are performed and reacted as expected. Results on target cell population are indicated in the following table: RESULTS: ANTIBODY / CLONE RESULT Block A H Pylori (polyclonal) negative These tests were developed and their performance characteristics determined by [facility]. They may not have been cleared or approved by the U.S. Food and Drug Administration. The FDA has determined that such clearance or approval is not necessary. The above immunohistochemical/dualISH markers are ordered and reviewed by the Pathologist. INTERPRETATION: A. Gastric body, biopsy: Negative for Helicobacter pylori organisms. GATITO:alexandru 06/18/2022
[2022-06-13 11:40] LABS: INR Fingerstick 1.1; Prothrombin Time Fingerstick 13.7 SEC (11.7-14.9)
--- NOTE | 2022-06-13 11:45 | PCM.HP.BLA ---
History and Physical Date of Admission: 06/13/22 61 F who presents to the office today for Initial consult. Maryse established with this clinic 03.12.22 with referral from PCP for positive FIT test 12.13.21. Reports periodic blood in her stool r/t constipation; diarrhea is sometimes red colored. Reports SOB (asthma), fatigued and weak. Hemoglobin 01.03.22 14.8. Currently taking warfarin. Denies history of acute GIB. Constipation is an issue for which she needs senna plus, miralax and stool softeners with PRN magnesium citrate. Symptoms also include bloating, gas and weight gain. In the last month it has been worse r/t oxycodone for shoulder pain ? taken up to three times a day each day. GERD issues controlled with omeprazole 40mg QD. Breakthrough symptoms periodically r/t overeating and food triggers. Previous colonoscopy at age 54 with several hyperplastic polyps removed with Dr. Ellis. PMH CHELSEY (bipap), asthma, COPD, PE, CHF, TIA, DMII, HTN, Hyperlipidemia. Aortic valve replaced . 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 FH DMII (mother, brother, sister); CAD (father, mother); CABG (father). ROS Const Constitutional: No fatigue, malaise, night sweats, weight change, sleep problems, abnormal sleep pattern or change in appetite ENT ENT: No difficulty swallowing, hoarseness or sore throat Cardio Cardiology: No chest pain at rest Gastro GI: No abdominal pain, belching, change in bowel habits, change in stool character, coffee ground emesis, cramping, diarrhea, heartburn, difficulty swallowing, feeling full early, excessive flatus, incontinent of stools, Vomiting blood/hematemesis, Blood in stool, loose stools, Black,tarry stools, nausea/dyspepsia, pain with swallowing, vomiting or other Musc Musculoskeletal: No joint pain Skin Skin: No yellowing of the eye or itchy eyes Neuro Neurology: No behavioral changes Psych Psychiatric: No abnormal sleep pattern, No anxiety, No behavioral changes, No change in appetite and No depression Endo Endocrine: No fatigue or weight change Aller/Imm Allergy/Immunologic: No itchy eyes Leonardo/Lymp Hematologic/Lymphatic: No easy bleeding or easy bruising Exam Const General: cooperative and comfortable Nutritional Appearance: average body habitus and well nourished HENAZ Head: normal to inspection Ears: hearing grossly normal bilaterally Nose: external nose normal Face and sinus: normal facial exam Mouth: oral mucosae normal Throat: posterior oropharynx normal Eyes General: appearance normal, both eyes and all related structures Neck Neck: normal visual inspection Chest Chest palpation & inspection: normal inspection of the chest and normal palpation of entire chest wall Resp Effort & Inspection: normal respiratory effort Auscultation: Bilateral: Clear to Auscultation Cardio Palpation: normal PMI Rate: regular rate Rhythm: regular rhythm GI Inspection: normal to inspection Auscultation: normal bowel sounds Percussion: normal to percussion Palpation: no hepatosplenomegaly Skin General: no rashes or lesions noted Neuro General: patient alert Extrem General: normal to inspection Psych Affect: normal affect Quality Reporting Tobacco Screening ([facility] 138) Smoking Status: Never smoker Assessment and Plan Assessment and Plan (1) Constipation: ?Status:?Acute ?Plan - Dr. 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 She is status post total right shoulder replacement and is actually doing well.? However opiate medications have resulted in her having severe constipation requiring 3-5 laxatives a day in order to have a bowel movement.? I recommended to her to take a tablespoon of mineral oil plus a tablespoon aloe vera for olive oil +8 ounces of orange juice in the morning.? Patient will do this for about 7 days and let me know if this is improving her constipation.? If not we may have to give her Amitiza, Linzess or Trulance therapy.? If that fails then she will be a candidate for [employer] store or Movantik. (2) Positive FIT (fecal immunochemical test): ?Status:?Acute ?Plan - Dr. Shepard Friend, DO: She will need to undergo a colonoscopy for evaluation of her lower GI tract.? She has no history of polyps but she has been seeing blood in her stools.? She does take Coumadin because of history of DVT and aortic valve replacement.? She needs to get her [place] filter removed as she had prior to her undergoing back surgery to move the system from her back that was causing sciatica symptoms. (3) GERD (gastroesophageal reflux disease): ?Status:?Acute ?Plan - Dr. Shepard Friend, DO: She has been on PPI therapy for multiple years and is having breakthrough symptoms.? She needs to undergo an upper endoscopy for evaluation of refractory GERD and also be screened for Harris's esophagus. I have re-examined the patient. There are no clinical changes since date of exam.
[2022-06-13] MEDS: Lactated Ringers 1,000 ML 15 ML IV (11:56)
[2022-06-13 13:10] LABS: Bedside Glucose 102 mg/dL (74-106)
--- NOTE | 2022-06-13 13:15 | OP.EGD_ITS ---
Patient Name: Maryse Kelley Procedure Date: 06/13/2022 12:20 PM Date of : 1960 Age: 61 Procedure: Upper GI endoscopy Indications: Functional Dyspepsia, Heartburn Providers: Devyn Alcantar DO Medicines: Monitored Anesthesia Care Patient Profile: This is a 61 year old female. Refer to note in patient chart for documentation of history and physical. Patient has symptoms of chronic dyspepsia and chronic heartburn. Complications: No immediate complications. Procedure: Pre-Anesthesia Assessment: - Prior to the procedure, a History and Physical was performed, and patient medications and allergies were reviewed. The risks and benefits of the procedure and the sedation options and risks were discussed with the patient. All questions were answered and informed consent was obtained. Patient identification and proposed procedure were verified by the physician in the pre-procedure area. Mental Status Examination: normal. Airway Examination: normal oropharyngeal airway and neck mobility. Respiratory Examination: clear to auscultation. CV Examination: normal. Prophylactic Antibiotics: The patient does not require prophylactic antibiotics. Prior Anticoagulants: The patient has taken no previous anticoagulant or antiplatelet agents. After reviewing the risks and benefits, the patient was deemed in satisfactory condition to undergo the procedure. The anesthesia plan was to use moderate sedation / analgesia (conscious sedation). Immediately prior to administration of medications, the patient was re-assessed for adequacy to receive sedatives. The heart rate, respiratory rate, oxygen saturations, blood pressure, adequacy of pulmonary ventilation, and response to care were monitored throughout the procedure. The physical status of the patient was re-assessed after the procedure. After obtaining informed consent, the endoscope was passed under direct vision. Throughout the procedure, the patient's blood pressure, pulse, and oxygen saturations were monitored continuously. The was introduced through the mouth, and advanced to the second part of duodenum. The upper GI endoscopy was accomplished without difficulty. The patient tolerated the procedure well. Scope In: 12:36:24 PM Scope Out: 12:42:01 PM Total Procedure Duration Time 0 hours 5 minutes 37 seconds Findings: The Z-line was irregular and was found 40 cm from the incisors. Biopsies were taken with a cold forceps for histology. A large hiatal hernia was present. Four 5 mm sessile polyps with no bleeding and no stigmata of recent bleeding were found in the gastric fundus, in the gastric body and on the lesser curvature of the stomach. The polyp was removed with a cold snare. Polyp resection was incomplete. The resected tissue was retrieved. Verification of patient identification for the specimen was done. Estimated blood loss was minimal. The second portion of the duodenum was normal. Impression: - Z-line irregular, 40 cm from the incisors. Biopsied. - Large hiatal hernia. - Four gastric polyps. Incomplete resection. Resected tissue retrieved. - Normal second portion of the duodenum. Recommendation: - Discharge patient to home. - Resume previous diet. - Continue present medications. - Await pathology results. Procedure Code(s): --- Professional --- 08205, Esophagogastroduodenoscopy, flexible, transoral; with removal of tumor(s), polyp(s), or other lesion(s) by snare technique 77033, 59,51, Esophagogastroduodenoscopy, flexible, transoral; with biopsy, single or multiple CPT copyright 2017 [employer]. All rights reserved. The codes documented in this report are preliminary and upon orthopedic coder review may be revised to meet current compliance requirements. Devyn Alcantar DO 06/13/2022 1:14:45 PM This report has been signed electronically. Number of Addenda: 1 Note Initiated On: 06/13/2022 12:20 PM Addendum Number: 1 Addendum Date: 07/19/2022 6:19:04 AM MAC was used as sedation for this procedure. Devyn Alcantar DO 07/19/2022 6:19:07 AM This report has been signed electronically.
--- NOTE | 2022-06-13 13:16 | OP.CCLET_ITS ---
07/19/2022 Ophelia Soria [address] [place] [address] Re : Upper GI endoscopy procedure for Maryse Kelley Dear Dr. Soria This procedure was performed on June. My impressions and recommendations are as follows: Impressions : - Z-line irregular, 40 cm from the incisors. Biopsied. - Large hiatal hernia. - Four gastric polyps. Incomplete resection. Resected tissue retrieved. - Normal second portion of the duodenum. Recommendations : - Discharge patient to home. - Resume previous diet. - Continue present medications. - Await pathology results. My findings are described in the full procedure note, which is enclosed. If I can be of further assistance, please feel free to contact me at . Sincerely, Devyn Alcantar, 06/13/2022 1:14:45 PM This report has been signed electronically.
--- NOTE | 2022-06-13 13:21 | OP.CCLET_ITS ---
07/19/2022 Ophelia Soria [address] [place] [address] Re : Colonoscopy procedure for Maryse Kelley Dear Dr. Soria This procedure was performed on June. My impressions and recommendations are as follows: Impressions : - Two 1 to 2 mm polyps in the descending colon and in the transverse colon, removed with a cold snare. Resected and retrieved. - Diverticulosis in the recto-sigmoid colon and in the sigmoid colon. Recommendations : - Discharge patient to home. - Resume previous diet. - Continue present medications. - Await pathology results. - Repeat colonoscopy in 3 years for surveillance. My findings are described in the full procedure note, which is enclosed. If I can be of further assistance, please feel free to contact me at . Sincerely, Devyn Alcantar, 06/13/2022 1:21:28 PM This report has been signed electronically.
--- NOTE | 2022-06-13 13:21 | OP.COLON_ITS ---
Patient Name: Maryse Kelley Procedure Date: 06/13/2022 12:42 PM Date of : 1960 Age: 61 Procedure: Colonoscopy Indications: Screening for colorectal malignant neoplasm Providers: Devyn Alcantar DO Medicines: Monitored Anesthesia Care Patient Profile: This is a 61 year old female. Refer to note in patient chart for documentation of history and physical. Patient has symptoms of chronic dyspepsia and chronic heartburn. Last Colonoscopy: 3 years ago. Complications: No immediate complications. Procedure: Pre-Anesthesia Assessment: - Prior to the procedure, a History and Physical was performed, and patient medications and allergies were reviewed. The risks and benefits of the procedure and the sedation options and risks were discussed with the patient. All questions were answered and informed consent was obtained. Patient identification and proposed procedure were verified by the physician in the pre-procedure area. Mental Status Examination: normal. Airway Examination: normal oropharyngeal airway and neck mobility. Respiratory Examination: clear to auscultation. CV Examination: normal. Prophylactic Antibiotics: The patient does not require prophylactic antibiotics. Prior Anticoagulants: The patient has taken no previous anticoagulant or antiplatelet agents. After reviewing the risks and benefits, the patient was deemed in satisfactory condition to undergo the procedure. The anesthesia plan was to use moderate sedation / analgesia (conscious sedation). Immediately prior to administration of medications, the patient was re-assessed for adequacy to receive sedatives. The heart rate, respiratory rate, oxygen saturations, blood pressure, adequacy of pulmonary ventilation, and response to care were monitored throughout the procedure. The physical status of the patient was re-assessed after the procedure. After I obtained informed consent, the scope was passed under direct vision. Throughout the procedure, the patient's blood pressure, pulse, and oxygen saturations were monitored continuously. The was introduced through the anus and advanced to the cecum, identified by appendiceal orifice and ileocecal valve. The colonoscopy was performed without difficulty. The patient tolerated the procedure well. The quality of the bowel preparation was good. Scope In: 12:44:12 PM Scope Withdrawal Time 0 hours 8 minutes 39 seconds Scope Out: 1:05:32 PM Total Procedure Duration Time 0 hours 21 minutes 20 seconds Findings: The perianal and digital rectal examinations were normal. Two sessile polyps were found in the descending colon and transverse colon. The polyps were 1 to 2 mm in size. These polyps were removed with a cold snare. Resection and retrieval were complete. Verification of patient identification for the specimen was done. Estimated blood loss was minimal. A few small and large-mouthed diverticula were found in the recto-sigmoid colon and sigmoid colon. Impression: - Two 1 to 2 mm polyps in the descending colon and in the transverse colon, removed with a cold snare. Resected and retrieved. - Diverticulosis in the recto-sigmoid colon and in the sigmoid colon. Recommendation: - Discharge patient to home. - Resume previous diet. - Continue present medications. - Await pathology results. - Repeat colonoscopy in 3 years for surveillance. Procedure Code(s): --- Professional --- 00983, Colonoscopy, flexible; with removal of tumor(s), polyp(s), or other lesion(s) by snare technique CPT copyright 2017 [employer]. All rights reserved. The codes documented in this report are preliminary and upon vocational education professional review may be revised to meet current compliance requirements. Devyn Alcantar DO 06/13/2022 1:21:28 PM This report has been signed electronically. Number of Addenda: 1 Note Initiated On: 06/13/2022 12:42 PM Addendum Number: 1 Addendum Date: 07/19/2022 6:19:15 AM MAC was used as sedation for this procedure. Devyn Alcantar DO 07/19/2022 6:19:18 AM This report has been signed electronically.
== END 2022-06-13 14:05 | disposition home or self-care (01) ==
LOC: EN 11:16 → AC 11:17
PROVIDERS: PCP Internal Medicine; Referring Provider Internal Medicine; Visit Provider Internal Medicine Gastroenterology
PROC: 0DJD8ZZ Inspection of Lower Intestinal Tract, Via Natural or Artificial Opening Endoscopic (ICD-10-PCS; CPT 45378; principal; 2022-06-13 11:25)
DX: D12.4 Benign neoplasm of descending colon (principal); J44.9 Chronic obstructive pulmonary disease, unspecified; E11.9 Type 2 diabetes mellitus without complications; Z79.4 Long term (current) use of insulin; K29.50 Unspecified chronic gastritis without bleeding; K57.30 Diverticulosis of large intestine without perforation or abscess without bleeding; M19.011 Primary osteoarthritis, right shoulder; K62.1 Rectal polyp; K44.9 Diaphragmatic hernia without obstruction or gangrene; K31.7 Polyp of stomach and duodenum; G47.33 Obstructive sleep apnea (adult) (pediatric); I25.10 Atherosclerotic heart disease of native coronary artery without angina pectoris; E78.00 Pure hypercholesterolemia, unspecified; Z86.73 Personal history of transient ischemic attack (TIA), and cerebral infarction without residual deficits; Z86.711 Personal history of pulmonary embolism; Z79.899 Other long term (current) drug therapy; Z79.01 Long term (current) use of anticoagulants
CPT/HCPCS: 43239; 45385; 36416; 82962; 85610; 88305; 88313; 88342; G0109; J7120

== ENCOUNTER 2022-06-13 11:50 | Outpatient (RCR) | payer MEDICARE, MEDICAID, SELFPAY ==
[2021-09-03 12:59] VITALS: BMI 43.4
== END 2022-07-12 23:59 ==
LOC: DC 11:50
PROVIDERS: PCP Internal Medicine; Referring Provider Internal Medicine Cardiovascular Disease; Visit Provider Internal Medicine Cardiovascular Disease
DX: E11.9 Type 2 diabetes mellitus without complications (principal)
CPT/HCPCS: G0109

== ENCOUNTER 2022-08-11 18:17 | Inpatient (IN) | payer MEDICARE, MEDICAID, SELFPAY ==
[2021-09-03 12:59] VITALS: BMI 43.4
[2022-08-11] VITALS (8 sets, daily range): BP systolic 153–159; BP diastolic 66–80; PULSE 73–84; RESP 16–20; TEMP 36.6–36.7; O2SAT 93–96; BMI 44.6; BMI 42.7
--- NOTE | 2022-08-11 18:53 | EKG12_ITS ---
Test Reason : HJ Blood Pressure : / mmHG Vent. Rate : 076 BPM Atrial Rate : 076 BPM P-R Int : 238 ms QRS Dur : 146 ms QT Int : 406 ms P-R-T Axes : 040 -32 021 degrees QTc Int : 456 ms Sinus rhythm with 1st degree A-V block Left axis deviation Right bundle branch block Abnormal ECG Confirmed by ERIC MAURICIO, LISA ([id number]), subeditor LEIGHTON STALLWORTH ([id number]) on 08/13/2022 1:04:12 PM Referred By: ACE Confirmed By:LISA REYES MD
--- NOTE | 2022-08-11 18:53 | CT_ITS ---
We are attempting to reach an attending provider to discuss findings. An addendum with communication details will be sent when the communication is complete. EXAM: CT HEAD WITHOUT INTRAVENOUS CONTRAST CLINICAL INDICATION: Neuro deficit, acute, stroke suspected TECHNIQUE: Multiple axial images were obtained of the head without intravenous contrast. This CT exam was performed using one or more of the following dose reduction techniques: automated exposure control, adjustment of the mA and/or kV according to patient size, and/or use of iterative reconstruction technique. This report was created using [employer] report [employer] technology. COMPARISON: 04.05.21 FINDINGS: BRAIN AND EXTRA-AXIAL SPACES: Unremarkable. No intra- or extra-axial hemorrhage. No evidence of acute infarct. No intracranial mass or mass effect. There is preservation of the carrington/white matter interface. Posterior fossa structures are unremarkable. Ventricles are appropriate for age. No hydrocephalus. Basal cisterns are patent. BONES/JOINTS: Unremarkable. No discrete lytic or blastic abnormalities. VASCULATURE: There are calcifications noted in the distal vertebral arteries. There are calcifications noted in the cavernous carotid arteries. This is consistent for atherosclerotic disease. SINUSES: Unremarkable as visualized. Clear. MASTOID AIR CELLS: Unremarkable. Clear. ORBITS: Visualized globes, extraocular muscles, optic nerves and retrobulbar fat appear unremarkable. aspects 10 CT/STROKE Brain/Head without Cont IMPRESSION: No acute findings in the head/brain. Electronically Signed: Aly Peck MD at 19:30 EDT Reading Location ID and State: [facility] / [place] , Service support ,
--- NOTE | 2022-08-11 18:55 | CT_ITS ---
EXAM: CT ANGIOGRAPHY HEAD AND NECK WITH INTRAVENOUS CONTRAST CLINICAL INDICATION: Neuro deficit, acute, stroke suspected TECHNIQUE: [place]/head and neck CT angiography protocol performed with intravenous contrast. This CT exam was performed using one or more of the following dose reduction techniques: automated exposure control, adjustment of the mA and/or kV according to patient size, and/or use of iterative reconstruction technique. This report was created using [employer] report generation technology. MIP reconstructed images were created and reviewed. CONTRAST: IV 100mL Isovue-370 RADIATION DOSE: CTDIvol = 20.98 mGy, DLP = 814.92 mGy-cm COMPARISON: None. FINDINGS: HEAD: RIGHT ANTERIOR CEREBRAL ARTERY: Unremarkable. No significant stenosis at the visualized segments. Anterior communicating artery is present. No aneurysm. RIGHT MIDDLE CEREBRAL ARTERY: Unremarkable. No significant stenosis at the visualized segments. No aneurysm. RIGHT POSTERIOR CEREBRAL ARTERY: Unremarkable. No occlusion or significant stenosis. No aneurysm. RIGHT INTRACRANIAL INTERNAL CAROTID ARTERY: See below. RIGHT INTRACRANIAL VERTEBRAL ARTERY: Unremarkable. No significant stenosis. No dissection or occlusion. LEFT ANTERIOR CEREBRAL ARTERY: Unremarkable. No significant stenosis at the visualized segments. No aneurysm. LEFT MIDDLE CEREBRAL ARTERY: Unremarkable. No significant stenosis at the visualized segments. No aneurysm. LEFT POSTERIOR CEREBRAL ARTERY: Unremarkable. No occlusion or significant stenosis. No aneurysm. LEFT INTRACRANIAL INTERNAL CAROTID ARTERY: See below. LEFT INTRACRANIAL VERTEBRAL ARTERY: Unremarkable. No significant stenosis. No dissection or occlusion. BASILAR ARTERY: Unremarkable. No significant stenosis. No aneurysm. OTHER VASCULATURE: There is mild atherosclerotic plaque formation of the origin of the right internal carotid artery with less than 50% cross sectional diameter stenosis. ALL ABOVE CRITERIA BY NASCET. There is mild atherosclerotic plaque formation of the origin of the left internal carotid artery with less than 50% cross sectional diameter stenosis. ALL ABOVE CRITERIA BY NASCET. There is calcified plaque formation of the right cavernous carotid artery, with a mild stenosis (less than 50%). ALL ABOVE CRITERIA BY NASCET. NECK: RIGHT COMMON CAROTID ARTERY: Unremarkable. No significant stenosis. No dissection or occlusion. RIGHT EXTRACRANIAL INTERNAL CAROTID ARTERY: See above. RIGHT EXTERNAL CAROTID ARTERY: Unremarkable. No occlusion. RIGHT EXTRACRANIAL VERTEBRAL ARTERY: Unremarkable. No significant stenosis. No dissection or occlusion. LEFT COMMON CAROTID ARTERY: Unremarkable. No significant stenosis. No dissection or occlusion. LEFT EXTRACRANIAL INTERNAL CAROTID ARTERY: See above. LEFT EXTERNAL CAROTID ARTERY: Unremarkable. No occlusion. LEFT EXTRACRANIAL VERTEBRAL ARTERY: Unremarkable. No significant stenosis. No dissection or occlusion. GREAT VESSELS OF AORTIC ARCH: There is calcified plaque formation of the left cavernous carotid artery, with a mild stenosis (less than 50%). ALL ABOVE CRITERIA BY NASCET. LUNG APICES: Unremarkable as visualized. HEAD and NECK: BONES/JOINTS: There are degenerative findings of the cervical spine. No discrete lytic or blastic abnormalities. SOFT TISSUES: Unremarkable. OTHER FINDINGS: Critical finding called and case discussed-Pierre. CAROTID STENOSIS REFERENCE USING NASCET CRITERIA: % ICA stenosis = (1 - narrowest ICA diameter/diameter of distal cervical ICA) x 100. Mild - <50% stenosis. Moderate - 50-69% stenosis. Severe - 70-94% stenosis. Near occlusion - 95-99% stenosis. Occluded - 100% stenosis. CT/STROKE CTA Head AND Neck W/Con IMPRESSION: 1. There is mild atherosclerotic plaque formation of the origin of the right internal carotid artery with less than 50% cross sectional diameter stenosis. ALL ABOVE CRITERIA BY NASCET. 2. There is mild atherosclerotic plaque formation of the origin of the left internal carotid artery with less than 50% cross sectional diameter stenosis. ALL ABOVE CRITERIA BY NASCET. 3. There is calcified plaque formation of the right cavernous carotid artery, with a mild stenosis (less than 50%). ALL ABOVE CRITERIA BY NASCET. 4. There is calcified plaque formation of the left cavernous carotid artery, with a mild stenosis (less than 50%). ALL ABOVE CRITERIA BY NASCET. N.B. : The above Results were Read Back by Aly Peck MD to Dr. Pierre MD, and understanding confirmed on 08/11/2022 19:32:00 (ET). Electronically Signed: Aly Peck MD at 19:33 EDT ,
--- NOTE | 2022-08-11 18:56 | EDS_ITS ---
HPI History of Present Illness Chief Complaint: Neuro S/Sx Narrative Narrative: Patient presents with right facial right arm and right leg numbness that started when she woke up this morning, she woke up with this. She also feels like she has been dragging her foot and having to stabilize her self when she walks as well as weakness in her right arm. She does not have any vision changes other than her chronic vision changes, she has no visual field defects. She has no nausea or vomiting. She does not feel confused. [facility] Medical History Anxiety Arthritis Asthma Atherosclerotic heart disease of [place] coronary artery without angina pectoris Back pain Back pain with sciatica Bilateral carotid bruits BiPAP (biphasic positive airway pressure) dependence Body mass index 45.0-49.9, adult Cardiology follow-up encounter Carotid artery disease COPD (chronic obstructive pulmonary disease) COVID-19 Depression Diabetes Diastolic heart failure Discoloration of skin Easy bruising Essential hypertension Excessive bleeding High cholesterol History of DVT (deep vein thrombosis) History of echocardiogram History of edema History of pain when walking History of pulmonary embolism History of steroid therapy History of stress test History of transcatheter aortic valve replacement (TAVR) (~04/19/21) Hx of transesophageal echocardiography (YOLANDA) for monitoring Insulin dependent diabetes mellitus Leg cramps Migraine headache Morbid obesity Non-smoker Nonrheumatic aortic (valve) stenosis On home oxygen therapy CHELSEY treated with BiPAP Personal history of anaphylaxis Positive FIT (fecal immunochemical test) Pulmonary embolism Restless legs Rotator cuff arthropathy of right shoulder Shortness of breath on exertion TIA (transient ischemic attack) Type 2 diabetes mellitus Home Medications fluoxetine 20 mg capsule 40 mg PO DAILY anxiety 01/26/14 [History Last Taken 04/05/21] potassium chloride 10 mEq tablet,extended release(part/cryst) 10 meq PO BID Potassium Chloride 01/06/16 [History Last Taken 04/05/21] Ca 600 mg-D3 800 unit-magnes 40 qb-gorc-ojq-angel-boron chewable tablet 1 ea PO DAILY vitamins 05/27/16 [History Last Taken 04/05/21] fenofibrate nanocrystallized 145 mg tablet 72.5 mg PO QHS cholesterol 04/26/19 [History Last Taken 04/04/21] ergocalciferol (vitamin D2) 1,250 mcg (50,000 unit) capsule 50,000 unit PO WE supplement 08/09/19 [History Last Taken 04/04/21] trazodone 50 mg tablet 50 mg PO QHS sleep 08/09/19 [History Last Taken 04/04/21] epinephrine 0.3 mg/0.3 mL injection, auto-injector 0.3 mg (0.3 mL) IM X1 PRN Anaphylaxis #1 ea 01/18/20 [Rx Last Taken Unknown] albuterol sulfate 2.5 mg/3 mL (0.083 %) solution for nebulization 2.5 mg (3 mL) inhalation Q2H PRN PRN dyspnea, wheezing #180 mL 04/24/20 [Rx Last Taken 07/02/21 09:00] albuterol sulfate 90 mcg/actuation aerosol inhaler 2 inh inhalation Q4H PRN PRN Sob &/Or Wheezing #18 grams 04/24/20 [Rx Last Taken 04/29/22] tiotropium bromide 18 mcg capsule with inhalation device 18 mcg inhalation DAILY Breathing #1 inh 04/24/20 [Rx Last Taken 07/02/21 09:00] montelukast 10 mg tablet 10 mg PO DAILY allergies/asthma #30 tabs 12/07/20 [Rx Last Taken 04/05/21] alendronate 70 mg tablet 70 mg PO WE bone health 12/21/20 [History Last Taken 04/04/21] desoximetasone 0.05 % topical cream 1 applic topical PRN PRN Itching 12/21/20 [History Last Taken Unknown] nystatin 100,000 unit/gram topical powder 1 applic topical BID PRN PRN YEAST 12/21/20 [History Last Taken 04/05/21] ondansetron 4 mg disintegrating tablet 4 mg PO Q8H PRN Nausea 12/21/20 [History Last Taken Unknown] beclomethasone dipropionate 80 mcg/actuation HFA breath activated aerosol 1 inh inhalation BID Asthma 03/22/21 [History Last Taken 07/02/21 09:00] budesonide-formoterol HFA 160 mcg-4.5 mcg/actuation aerosol inhaler 2 puff inhalation BID asthma 03/22/21 [History Last Taken 04/29/22] furosemide 40 mg tablet 40 mg PO BIDCM diuresis 03/22/21 [History Last Taken 04/05/21] ipratropium 0.5 mg-albuterol 3 mg (2.5 mg base)/3 mL nebulization soln 3 ml inhalation BID asthma 03/22/21 [History Last Taken 04/05/21] tizanidine 4 mg capsule 4 mg PO Q8H PRN muscle relaxer 03/22/21 [History Last Taken 04/04/21] cyanocobalamin (vitamin B-12) 100 mcg tablet (Vitamin B-12) 100 mcg PO DAILY supplement 04/05/21 [History Last Taken 04/05/21] melatonin 10 mg tablet 10 mg PO QHS sleep 04/05/21 [History Last Taken 04/04/21] oxycodone-acetaminophen 5 mg-325 mg tablet (Percocet) 1 tab PO Q6H PRN Pain 04/05/21 [History Last Taken 07/02/21 09:00] pregabalin 150 mg capsule 150 mg PO TID nerve pain 04/05/21 [History Last Taken 04/05/21] diltiazem HCl 240 mg capsule,extended release 24 hr 240 mg PO DAILY BP 04/06/21 [History Last Taken 07/02/21 09:00] meclizine 25 mg tablet 25 mg PO DAILY PRN Vertigo 05/04/21 [History Last Taken Unknown] warfarin 6 mg tablet 9 mg PO DAILY 05/04/21 [History Last Taken 06/09/22] docusate sodium 100 mg capsule 100 mg PO BID stool softener 08/17/21 [History Last Taken Unknown] magnesium 250 mg tablet 250 mg PO DAILY 08/17/21 [History Last Taken Unknown] L.acidophil-L.casei-B.bifid-B.longum-FOS 2 billion cell-50 mg capsule (Probiotic Blend) 1 cap PO DAILY 11/07/21 [History Last Taken Unknown] ascorbate calcium (vitamin C) 500 mg tablet 500 mg PO DAILY 11/07/21 [History Last Taken Unknown] chromium picolinate 200 mcg tablet 200 mcg PO DAILY 11/07/21 [History Last Taken Unknown] clobetasol 0.05 % topical cream 1 applic topical PRN PRN RASH/ITCHING 11/07/21 [History Last Taken Unknown] coconut oil 1,000 mg capsule 1,000 mg PO DAILY 11/07/21 [History Last Taken Unknown] cyclobenzaprine 5 mg tablet 5 mg PO PRN PRN MUSCLE CRAMPING 11/07/21 [History Last Taken Unknown] dexamethasone 4 mg tablet 4 mg PO DAILY #5 tabs 11/07/21 [Rx Last Taken Unknown] fluticasone propionate 44 mcg/actuation HFA aerosol inhaler (Flovent HFA) 1 puff inhalation BID 11/07/21 [History Last Taken 04/29/22] guaifenesin 400 mg tablet (Mucus Relief) 400 mg PO Q4H 11/07/21 [History Last Taken Unknown] levocetirizine 5 mg tablet 5 mg PO DAILY 11/07/21 [History Last Taken Unknown] polyethylene glycol 3350 17 gram/dose oral powder (Miralax) 17 g PO DAILY PRN PRN Constipation 11/07/21 [History Last Taken Unknown] rizatriptan 10 mg disintegrating tablet (Maxalt-VAT [employer]SE [employer]ER) 10 mg PO PRN PRN MIGRAINES 11/07/21 [History Last Taken Unknown] semaglutide 1 mg/dose (2 mg/1.5 mL) subcutaneous pen injector 1 mg subcut TH diabetes 11/07/21 [History Last Taken Unknown] vitamin K2 45 mcg capsule 45 mcg PO DAILY 11/07/21 [History Last Taken Unknown] zinc amino acid chelate 50 mg tablet 50 mg PO DAILY 11/07/21 [History Last Taken Unknown] insulin glargine U-300 conc 300 unit/mL (1.5 mL) subcutaneous pen (Toujeo SoloStar U-300 Insulin) 50 unit subcut BID DIABETES 04/29/22 [History Last Taken 04/28/22 25 MG] dicyclomine 10 mg capsule 10 mg PO BID diarrhea/cramps #60 caps 07/01/22 [Rx Last Taken Unknown] omeprazole 40 mg capsule,delayed release 40 mg PO BID #180 caps 07/01/22 [Rx Last Taken Unknown] sucralfate 1 gram tablet 1 g PO QAC #90 tabs 07/01/22 [Rx Last Taken Unknown] Allergy/AdvReac Type Severity Reaction Status Date / Time clindamycin Allergy Rash Verified 08/11/22 18:34 erythromycin base Allergy Rash Verified 08/11/22 18:34 [Erythromycin Base] omalizumab [From Xolair] Allergy Chest Verified 08/11/22 18:34 tightness Penicillins Allergy Rash Verified 08/11/22 18:34 sulfamethoxazole Allergy Chest Verified 08/11/22 18:34 [From Bactrim] tightness trimethoprim [From Bactrim] Allergy Chest Verified 08/11/22 18:34 tightness Sulfa (Sulfonamide AdvReac Unknown Unknown Verified 08/11/22 18:34 Antibiotics) Family History Father Heart disease Diabetes CAD (coronary artery disease) Mother CAD (coronary artery disease) CVA (cerebral vascular accident) Diabetes Brother CAD (coronary artery disease) CVA (cerebral vascular accident) Diabetes Unknown Cancer Grandmother CVA (cerebral vascular accident) Diabetes Grandfather CVA (cerebral vascular accident) Grandmother Myocardial infarction Brother Diabetes Sister Diabetes Surgical History Aortic valve replaced H/O lumbosacral spine surgery History of cardiac catheterization History of section History of hernia repair History of left heart catheterization (LHC) (~01/19/21) History of neck surgery History of rotator cuff surgery Hx of appendectomy Social History household members: spouse housing: apartment pets and animals: Yes Smoking Status: Never smoker second hand exposure: No alcohol intake: current alcohol intake frequency: a few times a week substance use type: does not use caffeine: No what type of physical activity do you participate in: none do you feel safe at home: Yes ROS ROS ED ROS Narrative Past medical history: Reviewed, it is quite extensive includes diabetes, hypertension, hyperlipidemia, prior TIA, prior DVT and PE on Coumadin and multiple others Medications: Reviewed Social history: Lives with her , 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 Review of systems: All systems negative except as indicated General: No fever Eyes: Chronic visual changes nothing acute ENT: No upper airway congestion, normal voice Neck: No neck pain Cardiovascular: No chest pain Respiratory: No shortness of breath or cough Gastrointestinal: No abdominal pain, nausea vomiting or diarrhea Genitourinary: No dysuria Musculoskeletal: Denies myalgias no difficulty with ambulation Skin: No rash Neurological: As in HPI Psych: No recent behavioral changes Hematologic: Easy bleeding secondary to Coumadin EXAM Physical Exam Narrative Exam Narrative: Physical exam General: Patient appears chronically ill but she does not appear any distress in bed. Head: Normocephalic, Atraumatic Eyes: Conjunctiva not pale ENT: Moist mucous membranes Neck: Supple, Nontender, No lymphadenopathy Cardiovascular: Regular rate, Regular rhythm Respiratory: No distress, CTA bilaterally Abdomen: Soft, Nontender, Nondistended Back: Nontender, Normal Inspection. Negative for: CVA tenderness Extremities: Nontender, No edema Skin: Normal color, No rash Neurological: See NIH scale, basically she has no sensation in her forehead face arm and leg, I used an 18-gauge needle I could not elicit any pain. She has decreased strength in right arm and right leg. Psychological: Quite anxious. Const Vital Signs: 08/11/22 18:21 08/11/22 19:13 08/11/22 19:15 Temperature 98 F 98 F Temperature Source Temporal Oral Pulse Rate 78 76 Respiratory Rate 20 H 16 Blood Pressure 159/80 H 153/66 H Blood Pressure Mean 106 95 Pulse Ox 94 94 94 Oxygen Delivery Method Room Air Room Air Room Air NIHSS NIHSS Initial: 1a Level of Consciousness: 0 1b LOC Questions (Score 2 if aphasic/stupor): 0 1c LOC Commands (Only score 1st attempt): 0 2 Best Gaze (If aphasic, use reflexive mvmts.): 0 3 Visual: 0 4 Facial Palsy: 0 5 Motor Arm Right (UN = amputation/fusion): 1 5 Motor Arm Left: 0 6 Motor Leg Right: 3 6 Motor Leg Left: 0 7 Limb ataxia (Only + if out of proportion): 0 8 Sensory (Aphasia/stupor=0 or 1, coma=2): 2 9 Best Language: 0 10 Dysarthria (mute, coma=2, intubated=UN): 0 11 Extinction and Inattention (only scored if +): 0 Total Score: 6 MDM MDM Lab Data Labs: Laboratory Results - last 24 hr 08/11/22 08/11/22 08/11/22 18:00 18:00 18:00 WBC 7.4 RBC 4.72 Hgb 14.5 Hct 42.5 MCV 90.0 MCH 30.7 MCHC 34.1 RDW Std Deviation 46.0 H RDW Coeff of Carmencita 13.9 Plt Count 227 MPV 10.7 Immature Gran % (Auto) 0.700 Neut % (Auto) 53.6 Lymph % (Auto) 34.3 Esmeralda % (Auto) 9.4 Eos % (Auto) 1.1 Baso % (Auto) 0.9 Absolute Neuts (auto) 4.0 Absolute Lymphs (auto) 2.55 Nucleated RBC % 0 PT 25.1 H INR 2.3 APTT 45.9 H Sodium 142 Potassium 3.8 Chloride 108 H Carbon Dioxide 26.0 Anion Gap 8 BUN 12 Creatinine 0.80 Estim Creat Clear Calc 60.31 Est GFR (MDRD) Af Amer 94 Est GFR (MDRD) Non-Af 77 BUN/Creatinine Ratio 15.1 Glucose 145 H Calcium 9.0 Troponin I High Sens 9 POC Glucose 08/11/22 18:54 WBC RBC Hgb Hct MCV MCH MCHC RDW Std Deviation RDW Coeff of Carmencita Plt Count MPV Immature Gran % (Auto) Neut % (Auto) Lymph % (Auto) Esmeralda % (Auto) Eos % (Auto) Baso % (Auto) Absolute Neuts (auto) Absolute Lymphs (auto) Nucleated RBC % PT INR APTT Sodium Potassium Chloride Carbon Dioxide Anion Gap BUN Creatinine Estim Creat Clear Calc Est GFR (MDRD) Af Amer Est GFR (MDRD) Non-Af BUN/Creatinine Ratio Glucose Calcium Troponin I High Sens POC Glucose 137 H Radiography Diagnostic Testing: Clinical Impression(s) from Imaging Studies Brain CT 08/11/22 18:53 IMPRESSION: No acute findings in the head/brain. Electronically Signed: Aly Peck MD at 19:30 EDT Reading Location ID and State: [facility] / [place] , Service support , Head/Neck CTA 08/11/22 18:55 IMPRESSION: 1. There is mild atherosclerotic plaque formation of the origin of the right internal carotid artery with less than 50% cross sectional diameter stenosis. ALL ABOVE CRITERIA BY NASCET. 2. There is mild atherosclerotic plaque formation of the origin of the left internal carotid artery with less than 50% cross sectional diameter stenosis. ALL ABOVE CRITERIA BY NASCET. 3. There is calcified plaque formation of the right cavernous carotid artery, with a mild stenosis (less than 50%). ALL ABOVE CRITERIA BY NASCET. 4. There is calcified plaque formation of the left cavernous carotid artery, with a mild stenosis (less than 50%). ALL ABOVE CRITERIA BY NASCET. N.B. : The above Results were Read Back by Aly Peck MD to Dr. Pierre MD, and understanding confirmed on 08/11/2022 19:32:00 (ET). Electronically Signed: Aly Peck MD at 19:33 EDT , Treatment and Re-Evaluation Narrative: CT and CT angiogram are unremarkable, however she continues to have deficits she was evaluated by the stroke neurologist who agrees that the patient will need an MRI in the morning and a complete stroke work-up. We will admit for this. Critical Care Time Critical care time (excluding procedures): 30-74 minutes, Discussing w/Patient &/or Family/Commissioner Of Relocation Services, Discussing w/Consultants, Arranging Admission or Transfer, Performing Direct Patient Care at Bedside and - (35 minutes) Discharge Plan Triage Chief Complaint: Neuro S/Sx ED Provider: Jeronimo Waldrop Dx/Rx/DC Orders Clinical Impression: Stroke-like symptoms, Weakness, Numbness Prescriptions: No Action ergocalciferol (vitamin D2) 50,000 unit capsule 50,000 unit PO WE trazodone 50 mg tablet 50 mg PO QHS albuterol sulfate 2.5 mg /3 mL (0.083 %) solution for nebulization 2.5 mg INHALATION Q2H PRN PRN (Reason: dyspnea, wheezing) Qty: 180 6RF tiotropium bromide 18 mcg capsule, w/inhalation device 18 mcg INHALATION DAILY MDD ASTHMA Qty: 1 6RF albuterol sulfate 90 mcg/actuation HFA aerosol inhaler 2 inh INHALATION Q4H PRN PRN (Reason: Sob &/Or Wheezing) Qty: 18 6RF montelukast 10 mg tablet 10 mg PO DAILY Qty: 30 6RF alendronate 70 mg tablet 70 mg PO WE desoximetasone 0.05 % cream 1 applic TOPICAL PRN PRN (Reason: Itching) ondansetron 4 mg tablet,disintegrating 4 mg PO Q8H PRN (Reason: Nausea) nystatin 100,000 unit/gram powder 1 applic TOPICAL BID PRN PRN (Reason: YEAST) warfarin 6 mg tablet 9 mg PO DAILY Rx Instructions: two 4 mg tablets and one 1mg tablet meclizine 25 mg tablet 25 mg PO DAILY PRN (Reason: Vertigo) magnesium 250 mg tablet 250 mg PO DAILY levocetirizine 5 mg tablet 5 mg PO DAILY dexamethasone 4 mg tablet 4 mg PO DAILY Qty: 5 0RF cyclobenzaprine 5 mg tablet 5 mg PO PRN PRN (Reason: MUSCLE CRAMPING) clobetasol 0.05 % cream 1 applic topical PRN PRN (Reason: RASH/ITCHING) guaifenesin [Mucus Relief] 400 mg tablet 400 mg PO Q4H Flovent HFA 44 mcg/actuation HFA aerosol inhaler 1 puff inhalation BID Rx Instructions: administer with spacer polyethylene glycol 3350 [Miralax] 17 gram/dose powder 17 g PO DAILY PRN PRN (Reason: Constipation) rizatriptan [Maxalt-VAT [employer]SE [employer]ER] 10 mg tablet,disintegrating 10 mg PO PRN PRN (Reason: MIGRAINES) chromium picolinate 200 mcg tablet 200 mcg PO DAILY coconut oil 1,000 mg capsule 1,000 mg PO DAILY Probiotic Blend 2 billion cell-50 mg capsule 1 cap PO DAILY Rx Instructions: give with meal/snack ascorbate calcium (vitamin C) 500 mg tablet 500 mg PO DAILY vitamin K2 45 mcg capsule 45 mcg PO DAILY zinc amino acid chelate 50 mg tablet 50 mg PO DAILY dicyclomine 10 mg capsule 10 mg PO BID Qty: 60 0RF omeprazole 40 mg capsule,delayed release(DR/EC) 40 mg PO BID Qty: 180 0RF sucralfate 1 gram tablet 1 g PO QAC Qty: 90 0RF fluoxetine 20 MG capsule 40 mg PO DAILY Label Comments: Depression/anxiety potassium chloride 10 MEQ tablet 10 meq PO BID Label Comments: Supplement docusate sodium 100 mg capsule 100 mg PO BID Label Comments: Stool softner [id number]-igsa-pec-abow-boron 1 EACH tablet,chewable 1 ea PO DAILY fenofibrate nanocrystallized 145 MG tablet 72.5 mg PO QHS semaglutide 1 mg/dose (2 mg/1.5 mL) pen injector 1 mg subcut TH Rx Instructions: OZEMPIC tizanidine 4 mg Capsule 4 mg PO Q8H PRN (Reason: muscle relaxer) furosemide 40 MG tablet 40 mg PO BIDCM Label Comments: Diuretic - water pill to remove extra fluid ipratropium-albuterol 0.5 mg-3 mg(2.5 mg base)/3 mL solution for nebulization 3 ml INHALATION BID Rx Instructions: Continue until re-evaluation per pulmonary with possible transition back to home regimen at that time. budesonide-formoterol 160-4.5 mcg/actuation HFA aerosol inhaler 2 puff INHALATION BID beclomethasone dipropionate 80 mcg/actuation HFA aerosol breath activated 1 inh inhalation BID oxycodone-acetaminophen [Percocet] 5-325 mg Tablet 1 tab PO Q6H PRN (Reason: Pain) cyanocobalamin (vitamin B-12) [Vitamin B-12] 100 mcg Tablet 100 mcg PO DAILY pregabalin 150 mg capsule 150 mg PO TID melatonin 10 mg Tablet 10 mg PO QHS diltiazem HCl 240 mg capsule,extended release 24hr 240 mg PO DAILY Toujeo SoloStar U-300 Insulin 300 unit/mL (1.5 mL) insulin pen 50 unit SUBCUT BID Label Comments: INJECT 56 [id number] JUNIOR Rx Instructions: TOUJEO epinephrine 0.3 mg/0.3 mL auto-injector 0.3 mg IM X1 PRN (Reason: Anaphylaxis) Qty: 1 0RF Primary Care Provider: Ophelia Soria Referrals: Ophelia Soria DO [Primary Care Provider] - Disposition Disposition: Acute Care Hospital [facility]
[2022-08-11 19:08] LABS: Absolute Lymphocyte Count 2.55 X10^3/uL (0.83-4.51); Basophil# 0.07 X10^3/uL; Basophil% 0.9 % (0-1); Eosinophil# 0.08 X10^3/uL; Eosinophils% 1.1 % (0-5); Hematocrit 42.5 % (37-47); Hemoglobin 14.5 g/dL (12.0-15.0); Lymphocyte # 2.55 X10^3/ul (0.83-4.51); Lymphocyte % 34.3 % (19-41); Mean Corp Hgb Conc 34.1 g/dL (32-36); Mean Corpuscular Hgb 30.7 pg (27.0-32.0); Mean Platelet Vol. 10.7 fl (6.2-12.0); Monocyte% 9.4 % (0-10); NRBC Flagged by Analyzer 0 % (0-5); Neutrophil # 3.99 X10^3/uL (2.7-7.7); Neutrophil % 53.6 % (47-70); Platelet Count 227 K/mm3 (150-450); RBC Distribution Width CV 13.9 % (11.6-14.6); Red Blood Count 4.72 M/mm3 (4.2-5.4); White Blood Count 7.4 K/mm3 (4.4-11.0)
[2022-08-11 19:16] LABS: Bedside Glucose 137 mg/dL (74-106)
[2022-08-11 19:20] LABS: International Normalized Ratio 2.3; Prothrombin Time (Protime)PT. 25.1 SECONDS (11.7-14.9)
[2022-08-11 19:21] LABS: Partial Thromboplast Time 45.9 Seconds (24.1-36.2)
[2022-08-11 19:27] LABS: Anion Gap 8 (5-15); BUN 12 mg/dL (7-18); BUN/Creat Ratio 15.1 RATIO (10-20); Chloride 108 mmol/L (98-107); EST Glomerular Filtration Rate 77 mL/min (>60); Est Glom Filt Rate - Afr Amer 94 mL/min (>60); Estimated Creatinine Clearance 60.31 ml/min; Glucose 145 mg/dL (74-106); Potassium 3.8 mmol/L (3.5-5.1); Sodium Level 142 mmol/L (136-145); Troponin-I HS 9 pg/mL (3.0-54.0)
--- NOTE | 2022-08-11 20:25 | PCM.HP.STD ---
[facility] - General General Date of Admission: 08/11/22 Date of Service: 08/11/22 Chief Complaint: right sided weakness. [facility] Narrative NATHALIE HERMAN, is a 61 F who presents with right-sided weakness. Began when she woke up. Was initially on her right leg and was have difficulty ambulating and was furniture walking. Began progressing up her arm as well as her face. Patient also complains of diffuse blurry vision with this as well. Patient had event in the past that was attributable to a TIA where she had right-sided weakness but was also short of breath at that time and trouble speaking. She denies any dysarthria at this time. Patient underwent head CT and CTA of the head neck that was unremarkable. FORMERLY [facility] Medical History Anxiety Arthritis Asthma Atherosclerotic heart disease of [place] coronary artery without angina pectoris Back pain Back pain with sciatica Bilateral carotid bruits BiPAP (biphasic positive airway pressure) dependence Body mass index 45.0-49.9, adult Cardiology follow-up encounter Carotid artery disease COPD (chronic obstructive pulmonary disease) COVID-19 Depression Diabetes Diastolic heart failure Discoloration of skin Easy bruising Essential hypertension Excessive bleeding High cholesterol History of DVT (deep vein thrombosis) History of echocardiogram History of edema History of pain when walking History of pulmonary embolism History of steroid therapy History of stress test History of transcatheter aortic valve replacement (TAVR) (~04/19/21) Hx of transesophageal echocardiography (YOLANDA) for monitoring Insulin dependent diabetes mellitus Leg cramps Migraine headache Morbid obesity Non-smoker Nonrheumatic aortic (valve) stenosis On home oxygen therapy CHELSEY treated with BiPAP Personal history of anaphylaxis Positive FIT (fecal immunochemical test) Pulmonary embolism Restless legs Rotator cuff arthropathy of right shoulder Shortness of breath on exertion TIA (transient ischemic attack) Type 2 diabetes mellitus Home Medications fluoxetine 20 mg capsule 40 mg PO DAILY anxiety 01/26/14 [History Last Taken 04/05/21] potassium chloride 10 mEq tablet,extended release(part/cryst) 10 meq PO BID Potassium Chloride 01/06/16 [History Last Taken 08/11/22] Ca 600 mg-D3 800 unit-magnes 40 wn-ogfn-ugs-angel-boron chewable tablet 1 ea PO DAILY vitamins 05/27/16 [History Last Taken 04/05/21] fenofibrate nanocrystallized 145 mg tablet 72.5 mg PO QHS cholesterol 04/26/19 [History Last Taken 04/04/21] ergocalciferol (vitamin D2) 1,250 mcg (50,000 unit) capsule 50,000 unit PO WE supplement 08/09/19 [History Last Taken 04/04/21] trazodone 50 mg tablet 50 mg PO QHS sleep 08/09/19 [History Last Taken 04/04/21] epinephrine 0.3 mg/0.3 mL injection, auto-injector 0.3 mg (0.3 mL) IM X1 PRN Anaphylaxis #1 ea 01/18/20 [Rx Last Taken Unknown] albuterol sulfate 2.5 mg/3 mL (0.083 %) solution for nebulization 2.5 mg (3 mL) inhalation Q2H PRN PRN dyspnea, wheezing #180 mL 04/24/20 [Rx Last Taken 07/02/21 09:00] albuterol sulfate 90 mcg/actuation aerosol inhaler 2 inh inhalation Q4H PRN PRN Sob &/Or Wheezing #18 grams 04/24/20 [Rx Last Taken 04/29/22] montelukast 10 mg tablet 10 mg PO DAILY allergies/asthma #30 tabs 12/07/20 [Rx Last Taken 04/05/21] alendronate 70 mg tablet 70 mg PO WE bone health 12/21/20 [History Last Taken 08/07/22] nystatin 100,000 unit/gram topical powder 1 applic topical BID PRN PRN YEAST 12/21/20 [History Last Taken 04/05/21] ondansetron 4 mg disintegrating tablet 4 mg PO Q8H PRN Nausea 12/21/20 [History Last Taken Unknown] beclomethasone dipropionate 80 mcg/actuation HFA breath activated aerosol 1 inh inhalation BID Asthma 03/22/21 [History Last Taken 07/02/21 09:00] budesonide-formoterol HFA 160 mcg-4.5 mcg/actuation aerosol inhaler 2 puff inhalation BID asthma 03/22/21 [History Last Taken 04/29/22] furosemide 40 mg tablet 40 mg PO MOWEFR diuresis 03/22/21 [History Last Taken 04/05/21] ipratropium 0.5 mg-albuterol 3 mg (2.5 mg base)/3 mL nebulization soln 3 ml inhalation BID asthma 03/22/21 [History Last Taken 04/05/21] tizanidine 4 mg capsule 4 mg PO Q8H PRN muscle relaxer 03/22/21 [History Last Taken 04/04/21] cyanocobalamin (vitamin B-12) 100 mcg tablet (Vitamin B-12) 100 mcg PO DAILY supplement 04/05/21 [History Last Taken 04/05/21] melatonin 10 mg tablet 10 mg PO QHS sleep 04/05/21 [History Last Taken 04/04/21] oxycodone-acetaminophen 5 mg-325 mg tablet (Percocet) 1 tab PO Q6H PRN PRN Pain 04/05/21 [History Last Taken 08/10/22] pregabalin 150 mg capsule 150 mg PO TID nerve pain 04/05/21 [History Last Taken 08/11/22] diltiazem HCl 240 mg capsule,extended release 24 hr 240 mg PO DAILY BP 04/06/21 [History Last Taken 07/02/21 09:00] meclizine 25 mg tablet 25 mg PO DAILY PRN Vertigo 05/04/21 [History Last Taken Unknown] warfarin 6 mg tablet 9 mg PO DAILY 05/04/21 [History Last Taken 06/09/22] docusate sodium 100 mg capsule 100 mg PO BID stool softener 08/17/21 [History Last Taken Unknown] magnesium 250 mg tablet 250 mg PO DAILY 08/17/21 [History Last Taken Unknown] L.acidophil-L.casei-B.bifid-B.longum-FOS 2 billion cell-50 mg capsule (Probiotic Blend) 1 cap PO DAILY 11/07/21 [History Last Taken Unknown] ascorbate calcium (vitamin C) 500 mg tablet 500 mg PO DAILY 11/07/21 [History Last Taken Unknown] chromium picolinate 200 mcg tablet 200 mcg PO DAILY 11/07/21 [History Last Taken Unknown] clobetasol 0.05 % topical cream 1 applic topical PRN PRN RASH/ITCHING 11/07/21 [History Last Taken Unknown] coconut oil 1,000 mg capsule 1,000 mg PO DAILY 11/07/21 [History Last Taken Unknown] cyclobenzaprine 5 mg tablet 10 mg PO PRN PRN MUSCLE CRAMPING 11/07/21 [History Last Taken 08/11/22] fluticasone propionate 44 mcg/actuation HFA aerosol inhaler (Flovent HFA) 1 puff inhalation BID 11/07/21 [History Last Taken 04/29/22] guaifenesin 400 mg tablet (Mucus Relief) 400 mg PO Q4H PRN PRN . 11/07/21 [History Last Taken Unknown] levocetirizine 5 mg tablet 5 mg PO DAILY 11/07/21 [History Last Taken Unknown] polyethylene glycol 3350 17 gram/dose oral powder (Miralax) 17 g PO DAILY PRN PRN Constipation 11/07/21 [History Last Taken Unknown] rizatriptan 10 mg disintegrating tablet (Maxalt-BUTTON SPINDLER) 10 mg PO PRN PRN MIGRAINES 11/07/21 [History Last Taken Unknown] semaglutide 1 mg/dose (2 mg/1.5 mL) subcutaneous pen injector 1 mg subcut TH diabetes 11/07/21 [History Last Taken Unknown] vitamin K2 45 mcg capsule 45 mcg PO DAILY 11/07/21 [History Last Taken Unknown] zinc amino acid chelate 50 mg tablet 50 mg PO DAILY 11/07/21 [History Last Taken Unknown] insulin glargine U-300 conc 300 unit/mL (1.5 mL) subcutaneous pen (Toujeo SoloStar U-300 Insulin) 50 unit subcut BID DIABETES 04/29/22 [History Last Taken 04/28/22 25 MG] dicyclomine 10 mg capsule 10 mg PO BID diarrhea/cramps #60 caps 07/01/22 [Rx Last Taken Unknown] omeprazole 40 mg capsule,delayed release 40 mg PO BID #180 caps 07/01/22 [Rx Last Taken Unknown] sucralfate 1 gram tablet 1 g PO QAC #90 tabs 07/01/22 [Rx Last Taken Unknown] dapagliflozin 10 mg tablet (Farxiga) 10 mg PO DAILY 08/11/22 [History Last Taken 08/11/22] moexipril 15 mg tablet 15 mg PO DAILY 08/11/22 [History Last Taken Unknown] pitavastatin calcium 4 mg tablet (Livalo) 4 mg PO DAILY 08/11/22 [History Last Taken Unknown] Allergy/AdvReac Type Severity Reaction Status Date / Time clindamycin Allergy Rash Verified 08/11/22 18:34 erythromycin base Allergy Rash Verified 08/11/22 18:34 [Erythromycin Base] omalizumab [From Xolair] Allergy Chest Verified 08/11/22 18:34 tightness Penicillins Allergy Rash Verified 08/11/22 18:34 sulfamethoxazole Allergy Chest Verified 08/11/22 18:34 [From Bactrim] tightness trimethoprim [From Bactrim] Allergy Chest Verified 08/11/22 18:34 tightness Sulfa (Sulfonamide AdvReac Unknown Unknown Verified 08/11/22 18:34 Antibiotics) Family History Father Heart disease Diabetes CAD (coronary artery disease) Mother CAD (coronary artery disease) CVA (cerebral vascular accident) Diabetes Brother CAD (coronary artery disease) CVA (cerebral vascular accident) Diabetes Unknown Cancer Grandmother CVA (cerebral vascular accident) Diabetes Grandfather CVA (cerebral vascular accident) Grandmother Myocardial infarction Brother Diabetes Sister Diabetes Surgical History Aortic valve replaced H/O lumbosacral spine surgery History of cardiac catheterization History of section History of hernia repair History of left heart catheterization (LHC) (~01/19/21) History of neck surgery History of rotator cuff surgery Hx of appendectomy Social History household members: spouse housing: apartment pets and animals: Yes Smoking Status: Never smoker second hand exposure: No alcohol intake: current alcohol intake frequency: a few times a week substance use type: does not use caffeine: No what type of physical activity do you participate in: none do you feel safe at home: Yes MARISELA ANTONIO Narrative To complain of cramping in her right leg and arm. She does get cramping occasionally in these extremities and not the left but is more severe today. All review of systems were negative except as mentioned above in the history of present illness and the other review of systems. Vital Signs Vital Signs Vital Signs: 08/11/22 18:21 08/11/22 19:13 08/11/22 19:15 Temperature 36.6 C 36.6 C Temperature Source Temporal Oral Pulse Rate 78 76 Respiratory Rate 20 H 16 Blood Pressure 159/80 H 153/66 H Blood Pressure Mean 106 95 Pulse Ox 94 94 94 Oxygen Delivery Method Room Air Room Air Room Air 08/11/22 20:09 Temperature 36.7 C Temperature Source Oral Pulse Rate 79 Respiratory Rate 16 Blood Pressure 158/75 H Blood Pressure Mean 102 Pulse Ox 93 Oxygen Delivery Method Room Air Weight Weight: 114.4 kg Body Mass Index (BMI) 44.6 Physical Exam Const alert and no apparent distress HEENT normocephalic, head/scalp atraumatic and moist oral mucous membranes Eyes PERRL, EOMs intact bilaterally and conjunctivae normal Neck no lymphadenopathy Neck Narrative: No thyromegaly Resp normal respiratory effort, no retractions, no use of accessory muscles and clear to auscultation bilaterally Cardio regular rate, regular rhythm, S1 normal heart sound and S2 normal heart sound GI normal to inspection, nondistended, normoactive bowel sounds, soft to palpation, non-tender and non-distended Extremity normal to inspection and full ROM Neuro oriented x3 and moves all extremities Neuro Narrative: Muscle strength 5-5 in the left upper and left lower extremity. Patient was seen moving her right lower extremity when she was distracted by talking about her history. But when I asked her to lift up her right leg she cannot do so. Muscle strength was 1 out of 5 immediately dropped to the bed when I lifted it. Muscle strength in the right upper extremity patient was difficulty lifting up but I lifted up for her and immediately drop and then she was able to slowly raise it up and was shaking. Psych affect normal Results Lab / Micro Data Attestation: I reviewed the patient's lab results. Result Diagrams: 08/11/22 18:00 08/11/22 18:00 Labs: Laboratory Results - last 24 hr 08/11/22 18:00: WBC 7.4, RBC 4.72, Hgb 14.5, Hct 42.5, MCV 90.0, MCH 30.7, MCHC 34.1, RDW Std Deviation 46.0 H, RDW Coeff of [place] 13.9, Plt Count 227, MPV 10.7, Immature Gran % (Auto) 0.700, Neut % (Auto) 53.6, Lymph % (Auto) 34.3, [place] % (Auto) 9.4, Eos % (Auto) 1.1, Baso % (Auto) 0.9, Absolute Neuts (auto) 4.0, Absolute Lymphs (auto) 2.55, Nucleated RBC % 0 08/11/22 18:00: PT 25.1 H, INR 2.3, APTT 45.9 H 08/11/22 18:00: Sodium 142, Potassium 3.8, Chloride 108 H, Carbon Dioxide 26.0, Anion Gap 8, BUN 12, Creatinine 0.80, Estim Creat Clear Calc 60.31, Est GFR (MDRD) Af Amer 94, Est GFR (MDRD) Non-Af 77, BUN/Creatinine Ratio 15.1, Glucose 145 H, Calcium 9.0, Troponin I High Sens 9 08/11/22 18:54: POC Glucose 137 H EKG Initial EKG: Attestation: I personally reviewed and interpreted this EKG as follows: Prior EKG tracings: available for review EKG Rhythm Intrepretation: Sinus Rhythm (Right bundle branch block. No change from April 2021) Radiology Impression Brain CT 08/11/22 18:53 IMPRESSION: No acute findings in the head/brain. Electronically Signed: Aly Peck MD at 19:30 EDT , ADDENDUM: 08/11/22 193 IMPRESSION: No acute findings in the head/brain. N.B. : The above Results were Read Back by Aly Peck MD to Dr. Pierre MD, and understanding confirmed on 08/11/2022 19:32:15 (ET). Electronically Signed: Aly Peck MD at 19:30 EDT , Head/Neck CTA 08/11/22 18:55 IMPRESSION: 1. There is mild atherosclerotic plaque formation of the origin of the right internal carotid artery with less than 50% cross sectional diameter stenosis. ALL ABOVE CRITERIA BY NASCET. 2. There is mild atherosclerotic plaque formation of the origin of the left internal carotid artery with less than 50% cross sectional diameter stenosis. ALL ABOVE CRITERIA BY NASCET. 3. There is calcified plaque formation of the right cavernous carotid artery, with a mild stenosis (less than 50%). ALL ABOVE CRITERIA BY NASCET. 4. There is calcified plaque formation of the left cavernous carotid artery, with a mild stenosis (less than 50%). ALL ABOVE CRITERIA BY NASCET. N.B. : The above Results were Read Back by Aly Peck MD to Dr. Pierre MD, and understanding confirmed on 08/11/2022 19:32:00 (ET). Electronically Signed: Aly Peck MD at 19:33 EDT , ADDENDUM: 08/11/221939 IMPRESSION: 1. There is mild atherosclerotic plaque formation of the origin of the right internal carotid artery with less than 50% cross sectional diameter stenosis. ALL ABOVE CRITERIA BY NASCET. 2. There is mild atherosclerotic plaque formation of the origin of the left internal carotid artery with less than 50% cross sectional diameter stenosis. ALL ABOVE CRITERIA BY NASCET. 3. There is calcified plaque formation of the right cavernous carotid artery, with a mild stenosis (less than 50%). ALL ABOVE CRITERIA BY NASCET. 4. There is calcified plaque formation of the left cavernous carotid artery, with a mild stenosis (less than 50%). ALL ABOVE CRITERIA BY NASCET. N.B. : The above Results were Read Back by Aly Peck MD to Dr. Pierre MD, and understanding confirmed on 08/11/2022 19:32:00 (ET). Electronically Signed: Aly Peck MD at 19:33 EDT , Assessment & Plan Assessment/Plan (1) Right sided weakness: PLAN: Etiology: Stroke versus atypical migraine versus psychosomatic versus conversion disorder Reason am not fully convinced that this could be a stroke as her exam findings are inconsistent sugar with her right upper extremity immediately dropping and she is able to raise it up against gravity. Plan Stroke work-up with MRI of the brain, 2D echocardiogram, lipid panel and physical and Occupational Therapy With a right-sided weakness swelling, stroke or not, if it does persist that she may require going to a snf facility. PLAN: Plan Chronic conditions Morbid obesity: Would benefit from weight loss VTE: INR therapeutic. Continue with warfarin. Patient is also on vitamin K as she likely has variable INR. Currently stable so we will not make any changes. Diabetes mellitus type 2: Continue with her basal insulin and will add sliding scale insulin. Muscle spasms: Chronic. Fine the patient's chronic spasms affect only her right side prior to this event. Continue cyclobenzaprine as needed VTE prophylaxis: Not indicated as patient is already anticoagulated. Charges/Coding Visit Charges Inpatient E&M: 82222 Init Hosp L3
--- NOTE | 2022-08-11 20:31 | ECHOCS_ITS ---
Reason For Study: TIA/CVA Procedure This was a 2D Doppler, Color Flow transthoracic echocardiogram. The study was technically difficult. Contrast injection was performed. Exam performed portable in patient room. Left Ventricle Normal LV size. Left ventricular systolic function is normal. The estimated ejection fraction is 65 %. No regional wall motion abnormalities noted. Right Ventricle Normal RV size. Normal systolic function. Atria The left atrium is mildly enlarged. Normal right atrium. Mitral Valve There is moderate mitral annular calcification. Tricuspid Valve Normal tricuspid valve. Aortic Valve Peak aortic valve gradient 29 mmHg. Mean aortic valve gradient 16 mmHg. Stable appearing bioprosthetic aortic valve apparatus. Pulmonic Valve Normal pulmonic valve. Great Vessels Normal aortic root. The pulmonary artery is normal size. Normal inferior vena cava. Pericardium/Pleural No pericardial effusion. Medication Diluted definity 2.5ml given slow IV push to enhance endocardial definition. MMode/2D Measurements & Calculations LVIDd: 5.3 cm IVSd: 1.1 cm Ao root diam: 3.2 cm LVIDs: 2.8 cm LVPWd: 1.2 cm RVDd: 4.0 cm FS: 46.3 % LAV(MOD-bp): 68.8 ml LA A4 area: 21.3 cm2 LA dimension(2D): 4.2 cm LAV(MOD-bp) Indexed: 32.4 ml/m2 LAV(MOD-sp2): 69.3 ml LAV(MOD-sp4): 66.0 ml RA A4 area: 16.5 cm2 Time Measurements MV dec time: 0.34 sec Doppler Measurements & Calculations MV E max mark: 121.7 cm/sec Lat Peak E' Mark: 7.3 cm/sec Med Peak E' Mark: 8.2 cm/sec MV A max mark: 158.5 cm/sec E/E' lat: 16.6 E/E' med: 14.9 MV E/A: 0.77 Ao V2 max: 270.3 cm/sec LV V1 max: 115.4 cm/sec PA V2 max: 105.7 cm/sec Ao max P.3 mmHg LV V1 max P.3 mmHg PA V2 mean: 73.2 cm/sec Ao V2 mean: 185.3 cm/sec LV V1 mean P.4 mmHg Ao mean P.9 mmHg LV V1 mean: 89.5 cm/sec Ao V2 VTI: 58.0 cm LV V1 VTI: 28.9 cm ECHO/Echo Complete W/ Contrast Interpretation Summary Normal LV size. Left ventricular systolic function is normal. The estimated ejection fraction is 65 %. The left atrium is mildly enlarged. Contrast injection was performed. Ordering Physician: David Salmon Referring Physician: Ophelia Soria Performed By: Marta Begum, BRANDON, RVT
[2022-08-11 21:12] LABS: Troponin-I HS 10 pg/mL (3.0-54.0)
[2022-08-11] MEDS: Fenofibrate 48 MG Tablet PO (22:10)
[2022-08-11] MEDS: Atorvastatin Calcium 20 MG Tablet PO (22:10)
[2022-08-11] MEDS: Dicyclomine 10 MG Capsule PO (22:10)
[2022-08-11] MEDS: Pantoprazole Sodium 40 MG Tablet PO (22:10)
[2022-08-11] MEDS: MELATONIN 10 MG TABLET PO (22:10)
[2022-08-11] MEDS: traZODone 50 MG Tablet PO (22:10)
[2022-08-11] MEDS: Docusate Sodium 100 MG Capsule PO (22:10)
[2022-08-11] MEDS: Insulin Glargine-YFGN 100 UNIT/ML Pen 50 UNIT SC (22:13)
[2022-08-11] MEDS: cycloBENZAPRine HCl 10 MG Tablet PO (22:26)
[2022-08-11] MEDS: CLARIFY ORDER NOTE (22:29)
--- NOTE | 2022-08-11 23:46 | CPS ---
Pt had all resp meds at home prior to coming to ER
[2022-08-12] VITALS (8 sets, daily range): BP systolic 132–146; BP diastolic 64–74; PULSE 75–85; RESP 16–20; TEMP 36.2–36.6; O2SAT 95–98
[2022-08-12 00:56] LABS: Bedside Glucose 127 mg/dL (74-106)
--- NOTE | 2022-08-12 06:00 | MRI_ITS ---
STUDY: MRI BRAIN WITHOUT CONTRAST REASON FOR EXAM: Female, 61 years old. right sided weakness TECHNIQUE: Standardized multiplanar fat and water weighted pulse sequences were obtained. COMPARISON: 04/06/2021 FINDINGS: There is mild cerebral atrophy with widening of the extra-axial spaces and ventricular dilatation. There are a limited number of small white matter hyperintensities, distributed throughout the deep white matter tracts of the cerebral hemispheres, consistent with mild chronic white matter ischemic changes. There is no evidence for recent intracranial ischemia or other cause of cytotoxic edema on diffusion weighted imaging (DWI). Normal T2* images of the brain without demonstrated susceptibility artifact. There is no demonstrated hemosiderin stain. Normal bilateral basal ganglia. Normal thalami. There is no extra-axial fluid accumulation. Normal flow voids within the major intracranial circulation suggesting patency by spin echo criteria. Normal sella turcica, pituitary gland, infundibular stalk, optic chiasm and hypothalamus. Normal tectal plate and pineal gland. Normal midbrain, martha and medulla. Normal cerebellum. Normal basal cisterns. Normal bilateral temporal bones. Normal bilateral internal auditory canals. There are bilateral ocular lens implants with otherwise normal intraorbital contents. Normal visualized paranasal sinuses. Normal calvarium and skull base. Normal visualized soft tissue structures. Normal visualized upper cervical spine. MRI/Brain without Contrast IMPRESSION: Involutional changes of the brain, as described above. No acute infarct. Electronically Signed: Luis Alexis MD at 11:02 EDT ,
[2022-08-12 06:29] LABS: Cholesterol 164 mg/dL (200); High Density Lipoprotein 27 mg/dL; Triglycerides 528 mg/dL
[2022-08-12 06:35] LABS: International Normalized Ratio 2.2; Prothrombin Time (Protime)PT. 23.8 SECONDS (11.7-14.9)
[2022-08-12] MEDS: Sucralfate 1 GM Tablet PO ×3 (06:58→15:55)
[2022-08-12 07:20] LABS: Bedside Glucose 149 mg/dL (74-106)
[2022-08-12] MEDS: Ipratropium/Albuterol Sulfate 3 ML AMPUL.NEB INHALATION (07:21)
[2022-08-12] MEDS: Budesonide Respules 0.5 MG/2 ML AMPUL.NEB. INHALATION (07:21)
--- NOTE | 2022-08-12 08:17 | PN.HOSP_ITS ---
Objective Data Objective Data Vital Signs: Vital Signs Temp Pulse Resp BP Pulse Ox O2 Del Method 98 F 78 20 H 141/67 H 95 Room Air 08/12/22 04:00 08/12/22 07:43 08/12/22 07:43 08/12/22 04:00 08/12/22 07:43 08/12/22 07:43 Oxygen Delivery Method Room Air Weight: 249 lb 1.957 oz Body Mass Index (BMI) 42.7 Intake & Output: Intake and Output for Last 24 Hours 08/10/22 08/11/22 08/12/22 23:59 23:59 23:59 Output Total 300 / 300 Balance -300 / -300 Lab / Micro Data Result Diagrams: 08/11/22 18:00 08/11/22 18:00 Labs: Laboratory Results - last 24 hr 08/11/22 18:00: WBC 7.4, RBC 4.72, Hgb 14.5, Hct 42.5, MCV 90.0, MCH 30.7, MCHC 34.1, RDW Std Deviation 46.0 H, RDW Coeff of Carmencita 13.9, Plt Count 227, MPV 10.7, Immature Gran % (Auto) 0.700, Neut % (Auto) 53.6, Lymph % (Auto) 34.3, Bennett % (Auto) 9.4, Eos % (Auto) 1.1, Baso % (Auto) 0.9, Absolute Neuts (auto) 4.0, Absolute Lymphs (auto) 2.55, Nucleated RBC % 0 08/11/22 18:00: PT 25.1 H, INR 2.3, APTT 45.9 H 08/11/22 18:00: Sodium 142, Potassium 3.8, Chloride 108 H, Carbon Dioxide 26.0, Anion Gap 8, BUN 12, Creatinine 0.80, Estim Creat Clear Calc 60.31, Est GFR (MDRD) Af Amer 94, Est GFR (MDRD) Non-Af 77, BUN/Creatinine Ratio 15.1, Glucose 145 H, Calcium 9.0, Troponin I High Sens 9 08/11/22 18:54: POC Glucose 137 H 08/11/22 20:45: Troponin I High Sens 10 08/11/22 22:12: POC Glucose 127 H 08/12/22 05:24: PT 23.8 H, INR 2.2 08/12/22 05:24: Triglycerides 528 H, Cholesterol 164, LDL Cholesterol TNP, VLDL Cholesterol TNP, HDL Cholesterol 27 L 08/12/22 06:57: POC Glucose 149 H Radiography Diagnostic Testing: Radiology Impression Brain CT 08/11/22 18:53 IMPRESSION: No acute findings in the head/brain. Electronically Signed: Aly Peck MD at 19:30 EDT , ADDENDUM: 08/11/22 1939 IMPRESSION: No acute findings in the head/brain. N.B. : The above Results were Read Back by Aly Peck MD to Dr. Pierre MD, and understanding confirmed on 08/11/2022 19:32:15 (ET). Electronically Signed: Aly Peck MD at 19:30 EDT , Head/Neck CTA 08/11/22 18:55 IMPRESSION: 1. There is mild atherosclerotic plaque formation of the origin of the right internal carotid artery with less than 50% cross sectional diameter stenosis. ALL ABOVE CRITERIA BY NASCET. 2. There is mild atherosclerotic plaque formation of the origin of the left internal carotid artery with less than 50% cross sectional diameter stenosis. ALL ABOVE CRITERIA BY NASCET. 3. There is calcified plaque formation of the right cavernous carotid artery, with a mild stenosis (less than 50%). ALL ABOVE CRITERIA BY NASCET. 4. There is calcified plaque formation of the left cavernous carotid artery, with a mild stenosis (less than 50%). ALL ABOVE CRITERIA BY NASCET. N.B. : The above Results were Read Back by Aly Peck MD to Dr. Pierre MD, and understanding confirmed on 08/11/2022 19:32:00 (ET). Electronically Signed: Aly Peck MD at 19:33 EDT , ADDENDUM: 08/11/22 1940 IMPRESSION: 1. There is mild atherosclerotic plaque formation of the origin of the right internal carotid artery with less than 50% cross sectional diameter stenosis. ALL ABOVE CRITERIA BY NASCET. 2. There is mild atherosclerotic plaque formation of the origin of the left internal carotid artery with less than 50% cross sectional diameter stenosis. ALL ABOVE CRITERIA BY NASCET. 3. There is calcified plaque formation of the right cavernous carotid artery, with a mild stenosis (less than 50%). ALL ABOVE CRITERIA BY NASCET. 4. There is calcified plaque formation of the left cavernous carotid artery, with a mild stenosis (less than 50%). ALL ABOVE CRITERIA BY NASCET. N.B. : The above Results were Read Back by Aly Peck MD to Dr. Pierre MD, and understanding confirmed on 08/11/2022 19:32:00 (ET). Electronically Signed: lAy Peck MD at 19:33 EDT , Assessment & Plan Assessment/Plan (1) Right sided weakness: PLAN: Etiology: Stroke versus atypical migraine versus psychosomatic versus conversion disorder Reason am not fully convinced that this could be a stroke as her exam findings are inconsistent sugar with her right upper extremity immediately dropping and she is able to raise it up against gravity. Plan * Stroke work-up with MRI of the brain, 2D echocardiogram, lipid panel and physical and Occupational Therapy * With a right-sided weakness swelling, stroke or not, if it does persist that she may require going to a [facility] facility. PLAN: Plan Chronic conditions * Morbid obesity: Would benefit from weight loss * VTE: INR therapeutic. Continue with warfarin. Patient is also on vitamin K as she likely has variable INR. Currently stable so we will not make any changes. * Diabetes mellitus type 2: Continue with her basal insulin and will add sliding scale insulin. * Muscle spasms: Chronic. Fine the patient's chronic spasms affect only her right side prior to this event. Continue cyclobenzaprine as needed VTE prophylaxis: Not indicated as patient is already anticoagulated.
--- NOTE | 2022-08-12 08:55 | NURSING ---
Pt to MRI via MRI staff
--- NOTE | 2022-08-12 10:00 | CASEMGMT ---
RN CM Face to Face with patient for initial transition planning/care coordination assessment. RN CM introduced self and role at [facility]. Patient sitting in chair, alert and oriented. Patient willing to participate in assessment and is able to answer all questions appropriately. Care providers, pharmacy, and demographics verified. Patient wishes to discharge home with possible HHC. Patient states she has no further needs or concerns at this time. CM to follow for discharge planning needs that may arise. PCP: Yang Specialists: Timbo, stud driver; Hu, multimedia technician Preferred Pharmacy: [facility] Retail Insurance: [employer] Prescription Benefit: yes Living Will/HPOA: yes, Alirio Kelley LNOK: , daughter Living Arrangements: Patient lives with in a first floor apartment with no steps to enter. Patient states she is independent for toileting, has aides that assist with bathing and dressing. Transportation: [facility] van DME/HHC: Patient states she has shower chair, grab bars, walker, wheelchair, nebulizer, pulse ox, and home oxygen through [facility] at 2lpm at HS bleed into [facility]. Patient has been to [facility] in the past. [facility] had [facility]. Patient has aides through [employer] 4 hrs per day on weekdays and 2 hrs per day on weekends. Patient is active with [employer] program and her CM is Dariana Peres. Disposition Plan: Patient to discharge home with resumption of aides service, family suppport, and follow-up plans in place. Monitor for HHC at discharge pending therapy. Livier ARDON, RN, CM
--- NOTE | 2022-08-12 10:11 | DCINST_ITS ---
Discharge Instructions Diet Discharge Diet: Low fat / Low cholesterol, 1800 Calorie Control Diet and 2000 mg Sodium Diet Activity Discharge Activity: Return to Normal Activity and May Not Drive Dressing / Incision Call your doctor if you observe: Fever of 101 or Higher, Coldness, Increased Pain, Numbness or Tingling, Change in Color, Inability to urinate, Inability to have a bowel movement, Using more than 1 pad per hour, Shortness of breath, Dizziness, Fainting spells, Swelling in the ankles, Chest pain, Prolonged hiccupping, Increased palpitations (irregular heartbeat), Calf discomfort and Uncontrolled pain Follow Up Care Test Results: Test results from this visit will be discussed in further detail at your follow- up appointment, if applicable. Discharge Plan Admission Admit Date/Time: 08/11/22 20:04 Primary Reason for Your Visit: acute stroke ruled out, possible TIA Attending Provider: Ramiro Carey Primary Care Provider: Ophelia Soria Consulting Providers: David Salmon Discharge Orders/Prescriptions Prescriptions: Continued ergocalciferol (vitamin D2) 50,000 unit capsule 50,000 unit PO WE trazodone 50 mg tablet 50 mg PO QHS albuterol sulfate 2.5 mg /3 mL (0.083 %) solution for nebulization 2.5 mg INHALATION Q2H PRN PRN (Reason: dyspnea, wheezing) Qty: 180 6RF albuterol sulfate 90 mcg/actuation HFA aerosol inhaler 2 inh INHALATION Q4H PRN PRN (Reason: Sob &/Or Wheezing) Qty: 18 6RF montelukast 10 mg tablet 10 mg PO DAILY Qty: 30 6RF alendronate 70 mg tablet 70 mg PO WE ondansetron 4 mg tablet,disintegrating 4 mg PO Q8H PRN (Reason: Nausea) nystatin 100,000 unit/gram powder 1 applic TOPICAL BID PRN PRN (Reason: YEAST) warfarin 6 mg tablet 9 mg PO DAILY Rx Instructions: two 4 mg tablets and one 1mg tablet meclizine 25 mg tablet 25 mg PO DAILY PRN (Reason: Vertigo) magnesium 250 mg tablet 250 mg PO DAILY levocetirizine 5 mg tablet 5 mg PO DAILY cyclobenzaprine 5 mg tablet 10 mg PO PRN PRN (Reason: MUSCLE CRAMPING) clobetasol 0.05 % cream 1 applic topical PRN PRN (Reason: RASH/ITCHING) guaifenesin [Mucus Relief] 400 mg tablet 400 mg PO Q4H PRN PRN (Reason: .) polyethylene glycol 3350 [Miralax] 17 gram/dose powder 17 g PO DAILY PRN PRN (Reason: Constipation) rizatriptan [Maxalt-ELECTRONICS ENGINEERING TECHNICIAN] 10 mg tablet,disintegrating 10 mg PO PRN PRN (Reason: MIGRAINES) chromium picolinate 200 mcg tablet 200 mcg PO DAILY coconut oil 1,000 mg capsule 1,000 mg PO DAILY Probiotic Blend 2 billion cell-50 mg capsule 1 cap PO DAILY Rx Instructions: give with meal/snack ascorbate calcium (vitamin C) 500 mg tablet 500 mg PO DAILY vitamin K2 45 mcg capsule 45 mcg PO DAILY zinc amino acid chelate 50 mg tablet 50 mg PO DAILY dicyclomine 10 mg capsule 10 mg PO BID Qty: 60 0RF omeprazole 40 mg capsule,delayed release(DR/EC) 40 mg PO BID Qty: 180 0RF sucralfate 1 gram tablet 1 g PO QAC Qty: 90 0RF fluoxetine 20 MG capsule 40 mg PO DAILY Label Comments: Depression/anxiety potassium chloride 10 MEQ tablet 10 meq PO BID Label Comments: Supplement docusate sodium 100 mg capsule 100 mg PO BID Label Comments: Stool softner [id number]-[id number] 1 EACH tablet,chewable 1 ea PO DAILY fenofibrate nanocrystallized 145 MG tablet 72.5 mg PO QHS semaglutide 1 mg/dose (2 mg/1.5 mL) pen injector 1 mg subcut TH Rx Instructions: OZEMPIC tizanidine 4 mg Capsule 4 mg PO Q8H PRN (Reason: muscle relaxer) furosemide 40 MG tablet 40 mg PO MOWEFR Label Comments: Diuretic - water pill to remove extra fluid ipratropium-albuterol 0.5 mg-3 mg(2.5 mg base)/3 mL solution for nebulization 3 ml INHALATION BID Rx Instructions: Continue until re-evaluation per pulmonary with possible transition back to home regimen at that time. budesonide-formoterol 160-4.5 mcg/actuation HFA aerosol inhaler 2 puff INHALATION BID beclomethasone dipropionate 80 mcg/actuation HFA aerosol breath activated 1 inh inhalation BID oxycodone-acetaminophen [Percocet] 5-325 mg Tablet 1 tab PO Q6H PRN PRN (Reason: Pain) cyanocobalamin (vitamin B-12) [Vitamin B-12] 100 mcg Tablet 100 mcg PO DAILY pregabalin 150 mg capsule 150 mg PO TID melatonin 10 mg Tablet 10 mg PO QHS diltiazem HCl 240 mg capsule,extended release 24hr 240 mg PO DAILY Toujeo SoloStar U-300 Insulin 300 unit/mL (1.5 mL) insulin pen 50 unit SUBCUT BID Label Comments: INJECT 56 UNITSESUBCUTANEOUSLY JUNIOR Rx Instructions: TOUJEO moexipril 15 mg tablet 15 mg PO DAILY Livalo 4 mg tablet 4 mg PO DAILY Farxiga 10 mg tablet 10 mg PO DAILY epinephrine 0.3 mg/0.3 mL auto-injector 0.3 mg IM X1 PRN (Reason: Anaphylaxis) Qty: 1 0RF Discontinued Flovent HFA 44 mcg/actuation HFA aerosol inhaler 1 puff inhalation BID Rx Instructions: administer with spacer Referrals / Follow Up: Ophelia Soria DO [Primary Care Provider] - Within 2 Weeks Deng Morgan MD [Non-Staff -Ordering Privileges] - Within 1 Month (Recurrent TIA symtoms) Disposition Disposition (needs filled in before D/C Order can be placed): Home, Self Care
--- NOTE | 2022-08-12 10:27 | NURSING ---
Echo in progress
[2022-08-12] MEDS: Fluoxetine HCl 40 MG CAPSULE PO (11:05)
[2022-08-12] MEDS: Dicyclomine 10 MG Capsule PO (11:05)
[2022-08-12] MEDS: Pantoprazole Sodium 40 MG Tablet PO (11:06)
[2022-08-12] MEDS: Montelukast 10 MG Tablet PO (11:06)
[2022-08-12] MEDS: Lisinopril 20 MG Tablet PO (11:06)
[2022-08-12] MEDS: Potassium Chloride Oral Tablet 10 MEQ PO ×2 (11:06→15:55)
[2022-08-12] MEDS: dilTIAZem CD 240 MG Capsule PO (11:06)
[2022-08-12] MEDS: Ascorbic Acid 500 MG Tablet PO (11:06)
[2022-08-12] MEDS: Magnesium Chloride 64 MG Delay Rel.Tablet PO (11:07)
[2022-08-12] MEDS: Docusate Sodium 100 MG Capsule PO (11:07)
[2022-08-12] MEDS: Furosemide 40 MG Tablet PO (11:07)
[2022-08-12] MEDS: Loratadine 10 MG Tablet PO (11:07)
[2022-08-12] MEDS: Empagliflozin 25 MG Tablet PO (11:08)
[2022-08-12] MEDS: Insulin Glargine-YFGN 100 UNIT/ML Pen 50 UNIT SC (11:09)
[2022-08-12] MEDS: FLU VACC QS2022-23(6MOS UP)/PF 60 MCG/0.5 ML SYRINGE IM (11:18)
[2022-08-12] MEDS: Insulin Lispro 100 UNIT/ML INSULN.PEN SC ×2 (11:18→15:56)
[2022-08-12 11:35] LABS: Bedside Glucose 194 mg/dL (74-106)
--- NOTE | 2022-08-12 14:32 | TELEMED_ITS ---
[facility] has confirmed receipt of a request for visit. This document confirms receipt of the order initiating the consult. To find the results of the consultation, please view the patient's reports for the scanned Telemed Consult.
--- NOTE | 2022-08-12 15:12 | CASEMGMT ---
Addendum entered by Livier Garcia 08/12/22 16:09: Per [facility]), they are not in-network with pt's insurance. Pt updated and states she would just prefer to do OP therapy at [facility] at this time. Order obtained and faxed to [facility] and pt provided original for discharge. Pt voices no further questions/concerns/needs. Юлия FIERRO Addendum entered by Livier Garcia 08/12/22 15:43: Pt states would like [facility]) as she states is already active with them and they have same insurance. Referral sent via [facility]. Antolin COREAS CM Original Note: Per therapy, pt would like set up with [facility]. This JOSS CM to room and pt provided with list of C providers including qualify and resource use data and consistent w/ the pt's preferred geographic region, medical needs, and insurance network. CM to check back with pt regarding choice. Antolin COREAS CM
--- NOTE | 2022-08-12 15:20 | CASEMGMT ---
Social Work Consult: Patient active with [facility] [facility]. Referral source: RN CM Telephone call to Dariana PORTER (manager animal for patient). This geriatric social work professor left voicemail for Dariana on confidential voicemail that patient was admitted to the hospital and plan is to discharge to the community today with home health care. This geriatric social work professor encouraged Dariana to call this geriatric social work professor back with any questions. Malini MARCANO, ROSIBELS
--- NOTE | 2022-08-12 15:23 | DS.PCM_ITS ---
Providers Date of Admission: 08/11/22 Date of Discharge: 08/12/22 Primary Care Physician: Dr. Ophelia Soria DO Reason For Visit: RIGHT SIDED WEAKNESS Diagnosis Discharge Diagnosis (1) Right sided weakness: Status: Acute Code(s): R53.1 - Weakness Plan: Etiology: Stroke versus atypical migraine versus psychosomatic versus conversion disorder Reason am not fully convinced that this could be a stroke as her exam findings are inconsistent sugar with her right upper extremity immediately dropping and she is able to raise it up against gravity. Plan * Stroke work-up with MRI of the brain, 2D echocardiogram, lipid panel and physical and Occupational Therapy * With a right-sided weakness swelling, stroke or not, if it does persist that she may require going to a assisted facility. Plan Chronic conditions * Morbid obesity: Would benefit from weight loss * VTE: INR therapeutic. Continue with warfarin. Patient is also on vitamin K as she likely has variable INR. Currently stable so we will not make any changes. * Diabetes mellitus type 2: Continue with her basal insulin and will add sliding scale insulin. * Muscle spasms: Chronic. Fine the patient's chronic spasms affect only her right side prior to this event. Continue cyclobenzaprine as needed VTE prophylaxis: Not indicated as patient is already anticoagulated. Medications at Discharge Home Medications fluoxetine 20 mg capsule 40 mg PO DAILY anxiety 01/26/14 potassium chloride 10 mEq tablet,extended release(part/cryst) 10 meq PO BID Potassium Chloride 01/06/16 Ca 600 mg-D3 800 unit-magnes 40 zd-mgpd-heu-angel-boron chewable tablet 1 ea PO DAILY vitamins 05/27/16 fenofibrate nanocrystallized 145 mg tablet 72.5 mg PO QHS cholesterol 04/26/19 ergocalciferol (vitamin D2) 1,250 mcg (50,000 unit) capsule 50,000 unit PO WE supplement 08/09/19 trazodone 50 mg tablet 50 mg PO QHS sleep 08/09/19 epinephrine 0.3 mg/0.3 mL injection, auto-injector 0.3 mg (0.3 mL) IM X1 PRN Anaphylaxis #1 ea 01/18/20 albuterol sulfate 2.5 mg/3 mL (0.083 %) solution for nebulization 2.5 mg (3 mL) inhalation Q2H PRN PRN dyspnea, wheezing #180 mL 04/24/20 albuterol sulfate 90 mcg/actuation aerosol inhaler 2 inh inhalation Q4H PRN PRN Sob &/Or Wheezing #18 grams 04/24/20 montelukast 10 mg tablet 10 mg PO DAILY allergies/asthma #30 tabs 12/07/20 alendronate 70 mg tablet 70 mg PO WE bone health 12/21/20 nystatin 100,000 unit/gram topical powder 1 applic topical BID PRN PRN YEAST 12/21/20 ondansetron 4 mg disintegrating tablet 4 mg PO Q8H PRN Nausea 12/21/20 beclomethasone dipropionate 80 mcg/actuation HFA breath activated aerosol 1 inh inhalation BID Asthma 03/22/21 budesonide-formoterol HFA 160 mcg-4.5 mcg/actuation aerosol inhaler 2 puff inhalation BID asthma 03/22/21 furosemide 40 mg tablet 40 mg PO MOWEFR diuresis 03/22/21 ipratropium 0.5 mg-albuterol 3 mg (2.5 mg base)/3 mL nebulization soln 3 ml inhalation BID asthma 03/22/21 tizanidine 4 mg capsule 4 mg PO Q8H PRN muscle relaxer 03/22/21 cyanocobalamin (vitamin B-12) 100 mcg tablet (Vitamin B-12) 100 mcg PO DAILY supplement 04/05/21 melatonin 10 mg tablet 10 mg PO QHS sleep 04/05/21 oxycodone-acetaminophen 5 mg-325 mg tablet (Percocet) 1 tab PO Q6H PRN PRN Pain 04/05/21 pregabalin 150 mg capsule 150 mg PO TID nerve pain 04/05/21 diltiazem HCl 240 mg capsule,extended release 24 hr 240 mg PO DAILY BP 04/06/21 meclizine 25 mg tablet 25 mg PO DAILY PRN Vertigo 05/04/21 warfarin 6 mg tablet 9 mg PO DAILY 05/04/21 docusate sodium 100 mg capsule 100 mg PO BID stool softener 08/17/21 magnesium 250 mg tablet 250 mg PO DAILY 08/17/21 L.acidophil-L.casei-B.bifid-B.longum-FOS 2 billion cell-50 mg capsule (Probiotic Blend) 1 cap PO DAILY 11/07/21 ascorbate calcium (vitamin C) 500 mg tablet 500 mg PO DAILY 11/07/21 chromium picolinate 200 mcg tablet 200 mcg PO DAILY 11/07/21 clobetasol 0.05 % topical cream 1 applic topical PRN PRN RASH/ITCHING 11/07/21 coconut oil 1,000 mg capsule 1,000 mg PO DAILY 11/07/21 cyclobenzaprine 5 mg tablet 10 mg PO PRN PRN MUSCLE CRAMPING 11/07/21 guaifenesin 400 mg tablet (Mucus Relief) 400 mg PO Q4H PRN PRN . 11/07/21 levocetirizine 5 mg tablet 5 mg PO DAILY 11/07/21 polyethylene glycol 3350 17 gram/dose oral powder (Miralax) 17 g PO DAILY PRN PRN Constipation 11/07/21 rizatriptan 10 mg disintegrating tablet (Maxalt-MACHINE PACKAGER) 10 mg PO PRN PRN MIGRAINES 11/07/21 semaglutide 1 mg/dose (2 mg/1.5 mL) subcutaneous pen injector 1 mg subcut TH diabetes 11/07/21 vitamin K2 45 mcg capsule 45 mcg PO DAILY 11/07/21 zinc amino acid chelate 50 mg tablet 50 mg PO DAILY 11/07/21 insulin glargine U-300 conc 300 unit/mL (1.5 mL) subcutaneous pen (Toujeo SoloStar U-300 Insulin) 50 unit subcut BID DIABETES 04/29/22 dicyclomine 10 mg capsule 10 mg PO BID diarrhea/cramps #60 caps 07/01/22 omeprazole 40 mg capsule,delayed release 40 mg PO BID #180 caps 07/01/22 sucralfate 1 gram tablet 1 g PO QAC #90 tabs 07/01/22 dapagliflozin 10 mg tablet (Farxiga) 10 mg PO DAILY 08/11/22 moexipril 15 mg tablet 15 mg PO DAILY 08/11/22 pitavastatin calcium 4 mg tablet (Livalo) 4 mg PO DAILY 08/11/22 Hospital Course Summary of Care Provided Hospital Course: The patient was admitted for right-sided leg weakness which progressed to arm and face. Patient also had diffuse blurry vision. Patient has history of TIA with right-sided weakness, trouble speaking in the past. Patient did not had d ysarthria during this admission. CT head and CTA head and neck done in ED. [facility] telemetry neurologist was consulted in ED. CTA does not show LVO or significant stenosis. Recommend to continue warfarin and statin. Patient was further admitted for MRI and TTE. 1. Right-sided weakness, possible TIA or psychosomatic or conversant disorder: Patient was admitted in PCU. groundwater monitoring technician shows sinus rhythm.Patient had MRI brain which reported no acute infarct. Overall it seems patient might have TIA or psychosomatic versus conversion disorder. Patient is on warfarin for DVT and INR is therapeutic. Patient does not want to change Livalo to statin as he says atorvastatin and others statin gives her muscle pain. Patient is also on fenofibrate. Lipid profile shows LDL cannot be calculated as triglycerides are high 528. HDL 27. Advised follow-up with neurologist Dr. Morgan to within 1 month. 2. COPD/asthma: Patient on 12 respiratory failure Flovent and beclomethasone. I discontinued Flovent after discussion with the patient. Continue albuterol as rescue alert. 3. Diabetes mellitus type 2: Patient reports fluctuates between 1 40-200. Follow with PCP for better glucose control. 4. Muscle spasm, recurrent history of DVT/PE: Continue warfarin. INR is therapeutic. Patient has chronic spasm that affects mostly her right side prior to the event. Continue cyclobenzaprine as needed. 5. Morbid obesity: Weight loss counseling done. Discharge medication reconciliation done. Discharge follow-up instructions completed. Discharge process discussed with the patient and all questions were answered to patient's satisfaction. Total time spent, exact 35 minutes on discharge meds reconciliation, examination, coordination of care with nurses and ancillary staff, review of imaging and blood test and discussion with the patient on follow-up instructions. Laboratory Results 08/11/22 18:00: WBC 7.4, RBC 4.72, Hgb 14.5, Hct 42.5, MCV 90.0, MCH 30.7, MCHC 34.1, RDW Std Deviation 46.0 H, RDW Coeff of Carmencita 13.9, Plt Count 227, MPV 10.7, Immature Gran % (Auto) 0.700, Neut % (Auto) 53.6, Lymph % (Auto) 34.3, [place] % (Auto) 9.4, Eos % (Auto) 1.1, Baso % (Auto) 0.9, Absolute Neuts (auto) 4.0, Absolute Lymphs (auto) 2.55, Nucleated RBC % 0 08/11/22 18:00: PT 25.1 H, INR 2.3, APTT 45.9 H 08/11/22 18:00: Sodium 142, Potassium 3.8, Chloride 108 H, Carbon Dioxide 26.0, Anion Gap 8, BUN 12, Creatinine 0.80, Estim Creat Clear Calc 60.31, Est GFR (MD RD) Af Amer 94, Est GFR (MDRD) Non-Af 77, BUN/Creatinine Ratio 15.1, Glucose 145 H, Calcium 9.0, Troponin I High Sens 9 08/11/22 18:54: POC Glucose 137 H 08/11/22 20:45: Troponin I High Sens 10 08/11/22 22:12: POC Glucose 127 H 08/12/22 05:24: PT 23.8 H, INR 2.2 08/12/22 05:24: Triglycerides 528 H, Cholesterol 164, LDL Cholesterol TNP, VLDL Cholesterol TNP, HDL Cholesterol 27 L 08/12/22 06:57: POC Glucose 149 H 08/12/22 11:02: POC Glucose 194 H Clinical Impression(s) from Imaging Studies Brain CT 08/11/22 18:53 IMPRESSION: No acute findings in the head/brain. Electronically Signed: Aly Peck MD at 19:30 EDT , Head/Neck CTA 08/11/22 18:55 IMPRESSION: 1. There is mild atherosclerotic plaque formation of the origin of the right internal carotid artery with less than 50% cross sectional diameter stenosis. ALL ABOVE CRITERIA BY NASCET. 2. There is mild atherosclerotic plaque formation of the origin of the left internal carotid artery with less than 50% cross sectional diameter stenosis. ALL ABOVE CRITERIA BY NASCET. 3. There is calcified plaque formation of the right cavernous carotid artery, with a mild stenosis (less than 50%). ALL ABOVE CRITERIA BY NASCET. 4. There is calcified plaque formation of the left cavernous carotid artery, with a mild stenosis (less than 50%). ALL ABOVE CRITERIA BY NASCET. Echocardiogram 08/11/22 20:31 Interpretation Summary Normal LV size. Left ventricular systolic function is normal. The estimated ejection fraction is 65 %. The left atrium is mildly enlarged. Contrast injection was performed. Brain MRI 08/12/22 06:00 IMPRESSION: Involutional changes of the brain, as described above. No acute infarct. Electronically Signed: Luis Alexis MD at 11:02 EDT , Physical Exam Narrative Seen and examined. Patient denies history of arrhythmia, A. fib. Patient on warfarin for 3 times DVT in 2 times PE. Patient has family history positive of hypercoagulable disorder on mother side Physical exam General: Alert, Oriented x3, Cooperative HEENT: Atraumatic, PERRLA, EOMI, Normocephalic Oral: No Gingival or Mucosal Lesions/ Ulcerations Neck: Supple, No JVD, Negative Carotid Bruits Lungs: Air entry diminished in bilateral lung bases. No crepitation/rhonchi Cardiovascular: Regular rate, Regular Rhythm, Normal S1, Normal S2, No murmurs Abdomen: Bowel Sounds Present, Soft, Non Tender, Non-Distended : No renal angle tenderness. No suprapubic tenderness. Extremities: No edema, Capillary Refill Less than 3 Seconds Skin: No rashes, No breakdown Musculoskeletal: Mild weakness on right lower extremity at knee and hip joints, 4/5. Rest 5/5 at major joints. No Tenderness to Palpation of Joints or Extremities Neurological: Cranial nerves II-XII grossly intact, DTR 2+/4, NIH stroke scale as documented 3. Psych/Mental Status: Normal Affect, Appropriate. Weight / BMI Weight Weight: 249 lb 1.957 oz Body Mass Index (BMI) 42.7 ABG / Lab / Microbiology Data Result Diagrams: 08/11/22 18:00 08/11/22 18:00 Laboratory: Laboratory Results - last 24 hr 08/11/22 18:00: WBC 7.4, RBC 4.72, Hgb 14.5, Hct 42.5, MCV 90.0, MCH 30.7, MCHC 34.1, RDW Std Deviation 46.0 H, RDW Coeff of [place] 13.9, Plt Count 227, MPV 10.7, Immature Gran % (Auto) 0.700, Neut % (Auto) 53.6, Lymph % (Auto) 34.3, [place] % (Auto) 9.4, Eos % (Auto) 1.1, Baso % (Auto) 0.9, Absolute Neuts (auto) 4.0, Absolute Lymphs (auto) 2.55, Nucleated RBC % 0 08/11/22 18:00: PT 25.1 H, INR 2.3, APTT 45.9 H 08/11/22 18:00: Sodium 142, Potassium 3.8, Chloride 108 H, Carbon Dioxide 26.0, Anion Gap 8, BUN 12, Creatinine 0.80, Estim Creat Clear Calc 60.31, Est GFR (MDR D) Af Amer 94, Est GFR (MDRD) Non-Af 77, BUN/Creatinine Ratio 15.1, Glucose 145 H, Calcium 9.0, Troponin I High Sens 9 08/11/22 18:54: POC Glucose 137 H 08/11/22 20:45: Troponin I High Sens 10 08/11/22 22:12: POC Glucose 127 H 08/12/22 05:24: PT 23.8 H, INR 2.2 08/12/22 05:24: Triglycerides 528 H, Cholesterol 164, LDL Cholesterol TNP, VLDL Cholesterol TNP, HDL Cholesterol 27 L 08/12/22 06:57: POC Glucose 149 H 08/12/22 11:02: POC Glucose 194 H Radiography Diagnostic Testing: Radiology Impression Brain CT 08/11/22 18:53 IMPRESSION: No acute findings in the head/brain. Electronically Signed: Aly Peck MD at 19:30 EDT , ADDENDUM: 08/11/22 193 IMPRESSION: No acute findings in the head/brain. N.B. : The above Results were Read Back by Aly Peck MD to Dr. Pierre MD, and understanding confirmed on 08/11/2022 19:32:15 (ET). Electronically Signed: Aly Peck MD at 19:30 EDT , Head/Neck CTA 08/11/22 18:55 IMPRESSION: 1. There is mild atherosclerotic plaque formation of the origin of the right internal carotid artery with less than 50% cross sectional diameter stenosis. ALL ABOVE CRITERIA BY NASCET. 2. There is mild atherosclerotic plaque formation of the origin of the left internal carotid artery with less than 50% cross sectional diameter stenosis. ALL ABOVE CRITERIA BY NASCET. 3. There is calcified plaque formation of the right cavernous carotid artery, with a mild stenosis (less than 50%). ALL ABOVE CRITERIA BY NASCET. 4. There is calcified plaque formation of the left cavernous carotid artery, with a mild stenosis (less than 50%). ALL ABOVE CRITERIA BY NASCET. N.B. : The above Results were Read Back by Aly Peck MD to Dr. Pierre MD, and understanding confirmed on 08/11/2022 19:32:00 (ET). Electronically Signed: Aly Peck MD at 19:33 EDT , ADDENDUM: 08/11/22 1940 IMPRESSION: 1. There is mild atherosclerotic plaque formation of the origin of the right internal carotid artery with less than 50% cross sectional diameter stenosis. ALL ABOVE CRITERIA BY NASCET. 2. There is mild atherosclerotic plaque formation of the origin of the left internal carotid artery with less than 50% cross sectional diameter stenosis. ALL ABOVE CRITERIA BY NASCET. 3. There is calcified plaque formation of the right cavernous carotid artery, with a mild stenosis (less than 50%). ALL ABOVE CRITERIA BY NASCET. 4. There is calcified plaque formation of the left cavernous carotid artery, with a mild stenosis (less than 50%). ALL ABOVE CRITERIA BY NASCET. N.B. : The above Results were Read Back by Aly Peck MD to Dr. Pierre MD, and understanding confirmed on 08/11/2022 19:32:00 (ET). Electronically Signed: Aly Peck MD at 19:33 EDT , Echocardiogram 08/11/22 20:31 Interpretation Summary Normal LV size. Left ventricular systolic function is normal. The estimated ejection fraction is 65 %. The left atrium is mildly enlarged. Contrast injection was performed. Ordering Physician: David Salmon Referring Physician: Ophelia Soria Performed By: Marta Begum, RDCS, RVT Brain MRI 08/12/22 06:00 IMPRESSION: Involutional changes of the brain, as described above. No acute infarct. Electronically Signed: Luis Alxeis MD at 11:02 EDT , D/C Instructions Discharge Diet: Low fat / Low cholesterol, 1800 Calorie Control Diet and 2000 mg Sodium Diet Call your doctor if you observe: Fever of 101 or Higher, Coldness, Increased Pain, Numbness or Tingling, Change in Color, Inability to urinate, Inability to have a bowel movement, Using more than 1 pad per hour, Shortness of breath, Dizziness, Fainting spells, Swelling in the ankles, Chest pain, Prolonged hiccupping, Increased palpitations (irregular heartbeat), Calf discomfort and Uncontrolled pain Meaningful Use Info Meaningful Use Diagnoses (Choose all that apply): None applicable Discharge Plan Admission Admit Date/Time: 08/11/22 20:04 Primary Reason for Your Visit: acute stroke ruled out, possible TIA Attending Provider: Ramiro Carey Primary Care Provider: Yang,Ophelia Consulting Providers: David Salmon Discharge Orders/Prescriptions Prescriptions: Continued ergocalciferol (vitamin D2) 50,000 unit capsule 50,000 unit PO WE trazodone 50 mg tablet 50 mg PO QHS albuterol sulfate 2.5 mg /3 mL (0.083 %) solution for nebulization 2.5 mg INHALATION Q2H PRN PRN (Reason: dyspnea, wheezing) Qty: 180 6RF albuterol sulfate 90 mcg/actuation HFA aerosol inhaler 2 inh INHALATION Q4H PRN PRN (Reason: Sob &/Or Wheezing) Qty: 18 6RF montelukast 10 mg tablet 10 mg PO DAILY Qty: 30 6RF alendronate 70 mg tablet 70 mg PO WE ondansetron 4 mg tablet,disintegrating 4 mg PO Q8H PRN (Reason: Nausea) nystatin 100,000 unit/gram powder 1 applic TOPICAL BID PRN PRN (Reason: YEAST) warfarin 6 mg tablet 9 mg PO DAILY Rx Instructions: two 4 mg tablets and one 1mg tablet meclizine 25 mg tablet 25 mg PO DAILY PRN (Reason: Vertigo) magnesium 250 mg tablet 250 mg PO DAILY levocetirizine 5 mg tablet 5 mg PO DAILY cyclobenzaprine 5 mg tablet 10 mg PO PRN PRN (Reason: MUSCLE CRAMPING) clobetasol 0.05 % cream 1 applic topical PRN PRN (Reason: RASH/ITCHING) guaifenesin [Mucus Relief] 400 mg tablet 400 mg PO Q4H PRN PRN (Reason: .) polyethylene glycol 3350 [Miralax] 17 gram/dose powder 17 g PO DAILY PRN PRN (Reason: Constipation) rizatriptan [Maxalt-MACHINE PACKAGER] 10 mg tablet,disintegrating 10 mg PO PRN PRN (Reason: MIGRAINES) chromium picolinate 200 mcg tablet 200 mcg PO DAILY coconut oil 1,000 mg capsule 1,000 mg PO DAILY Probiotic Blend 2 billion cell-50 mg capsule 1 cap PO DAILY Rx Instructions: give with meal/snack ascorbate calcium (vitamin C) 500 mg tablet 500 mg PO DAILY vitamin K2 45 mcg capsule 45 mcg PO DAILY zinc amino acid chelate 50 mg tablet 50 mg PO DAILY dicyclomine 10 mg capsule 10 mg PO BID Qty: 60 0RF omeprazole 40 mg capsule,delayed release(DR/EC) 40 mg PO BID Qty: 180 0RF sucralfate 1 gram tablet 1 g PO QAC Qty: 90 0RF fluoxetine 20 MG capsule 40 mg PO DAILY Label Comments: Depression/anxiety potassium chloride 10 MEQ tablet 10 meq PO BID Label Comments: Supplement docusate sodium 100 mg capsule 100 mg PO BID Label Comments: Stool softner Cn-Y2-cqs-mefj-sco-pohe-boron 1 EACH tablet,chewable 1 ea PO DAILY fenofibrate nanocrystallized 145 MG tablet 72.5 mg PO QHS semaglutide 1 mg/dose (2 mg/1.5 mL) pen injector 1 mg subcut TH Rx Instructions: OZEMPIC tizanidine 4 mg Capsule 4 mg PO Q8H PRN (Reason: muscle relaxer) furosemide 40 MG tablet 40 mg PO MOWEFR Label Comments: Diuretic - water pill to remove extra fluid ipratropium-albuterol 0.5 mg-3 mg(2.5 mg base)/3 mL solution for nebulization 3 ml INHALATION BID Rx Instructions: Continue until re-evaluation per pulmonary with possible transition back to home regimen at that time. budesonide-formoterol 160-4.5 mcg/actuation HFA aerosol inhaler 2 puff INHALATION BID beclomethasone dipropionate 80 mcg/actuation HFA aerosol breath activated 1 inh inhalation BID oxycodone-acetaminophen [Percocet] 5-325 mg Tablet 1 tab PO Q6H PRN PRN (Reason: Pain) cyanocobalamin (vitamin B-12) [Vitamin B-12] 100 mcg Tablet 100 mcg PO DAILY pregabalin 150 mg capsule 150 mg PO TID melatonin 10 mg Tablet 10 mg PO QHS diltiazem HCl 240 mg capsule,extended release 24hr 240 mg PO DAILY Toujeo SoloStar U-300 Insulin 300 unit/mL (1.5 mL) insulin pen 50 unit SUBCUT BID Label Comments: INJECT 56 UNITSESUBCUTANEOUSLY JUNIOR Rx Instructions: TOUJEO moexipril 15 mg tablet 15 mg PO DAILY Livalo 4 mg tablet 4 mg PO DAILY Farxiga 10 mg tablet 10 mg PO DAILY epinephrine 0.3 mg/0.3 mL auto-injector 0.3 mg IM X1 PRN (Reason: Anaphylaxis) Qty: 1 0RF Discontinued Flovent HFA 44 mcg/actuation HFA aerosol inhaler 1 puff inhalation BID Rx Instructions: administer with spacer Referrals / Follow Up: Ophelia Soria DO [Primary Care Provider] - Within 2 Weeks Deng Morgan MD [Non-Staff -Ordering Privileges] - Within 1 Month (Recurrent TIA symtoms) Disposition Disposition (needs filled in before D/C Order can be placed): Home, Self Care Charges/Coding Addendum Addendum: Patient was admitted as inpatient for concern of right-sided weakness and possible acute infarct but MRI did not show acute infarct. Patient was further evaluated by PT and OT and stated patient is not putting good resistant effort deliberately and is on baseline walker with no new ataxia or imbalance The patient discharged early because of sooner recovery than expected at time of admission. Visit Charges Inpatient E&M: 64690 Disch Hosp
--- NOTE | 2022-08-12 15:36 | CASEMGMT ---
Social Work Telephone call from Dariana MORAN. Dariana confirms to have received this social workers voicemail. This social studies teacher confirmed discharge plan for patient to discharge today. Dariana request for this social studies teacher to fax discharge information to [phone]. This social studies teacher faxed discharge information as requested. Malini Mendosa MSW, HAIR-S
--- NOTE | 2022-08-12 15:46 | CASEMGMT ---
Discharge Diesel Crane Operator This gag writer sent referral to [facility]. Ashia DUEÑAS Bevel Face Stoner And Polisher
[2022-08-12 16:20] LABS: Bedside Glucose 167 mg/dL (74-106)
--- NOTE | 2022-08-12 16:34 | CHAPLAIN ---
Type of Pastoral Visit _x__ Initial Visit ___ Follow-up Visit ___ On-call Visit ___ General Patient Visit ___ Spiritual Assessment ___ Family Conference ___ Bereavement ___ Rapid Response ___ Code Blue ___ Other (describe below) Pastoral Care Referral From _x__ Patient ___ Family ___ Nurse ___ Physician ___ Communications Editor ___ Flat Folding Machine Operator ___ Other (describe below) Sacrament/Intervention _x__ Active listening ___ Anointing ___ Baptist ___ Bereavement ___ Communion ___ Cathi exploration ___ _x__ Life review _x__ Prayer ___ Reconciliation ___ Sacrament of Sick _x__ Supportive presence ___ Wedding ___ Other (describe below) Pastoral Comments patient has been seen before by this vmware systems administrator; pt family members are known to this vmware systems administrator; pt reviews her health needs at this time; pt has goal to travel soon and hopeful that health will be sufficient for the same; pt has spiritual strength and relies on God and family for help; presence and prayer welcomed
== END 2022-08-12 18:23 | disposition home or self-care (01) | DRG 880 ==
LOC: ED 19:44 → PCU 20:27
PROVIDERS: Emergency Provider Emergency Medicine; PCP Internal Medicine; Visit Provider Internal Medicine
DX: F44.7 Conversion disorder with mixed symptom presentation (principal); G45.9 Transient cerebral ischemic attack, unspecified; I50.32 Chronic diastolic (congestive) heart failure; Z68.41 Body mass index [BMI] 40.0-44.9, adult; I11.0 Hypertensive heart disease with heart failure; Z99.81 Dependence on supplemental oxygen; J44.9 Chronic obstructive pulmonary disease, unspecified; E11.9 Type 2 diabetes mellitus without complications; Z79.4 Long term (current) use of insulin; E66.01 Morbid (severe) obesity due to excess calories; E78.00 Pure hypercholesterolemia, unspecified; I25.10 Atherosclerotic heart disease of native coronary artery without angina pectoris; M62.838 Other muscle spasm; R53.1 Weakness; F45.1 Undifferentiated somatoform disorder; Z79.01 Long term (current) use of anticoagulants; Z79.83 Long term (current) use of bisphosphonates; Z79.84 Long term (current) use of oral hypoglycemic drugs; Z79.85 Long-term (current) use of injectable non-insulin antidiabetic drugs; Z79.899 Other long term (current) drug therapy; Z86.711 Personal history of pulmonary embolism; Z86.718 Personal history of other venous thrombosis and embolism; Z86.73 Personal history of transient ischemic attack (TIA), and cerebral infarction without residual deficits; Z86.16 Personal history of COVID-19; Z23 Encounter for immunization
CPT/HCPCS: 36415; 70450; 70496; 70498; 70551; 80048; 80061; 82962; 84484; 85025; 85610; 85730; 93005; 93306; 94640; 94762; 97162; 97166; 99285; G0008; Q9957; Q9967; 90686; A4216; C8929

== ENCOUNTER → 2022-09-04 | Outpatient (CLI) | payer MEDICARE, MEDICAID, SELFPAY ==
[2021-09-03 12:59] VITALS: BMI 43.4
== END | disposition home or self-care (01) ==
LOC: LABSPEC 15:39
PROVIDERS: PCP Internal Medicine; Visit Provider Otolaryngology
DX: J02.9 Acute pharyngitis, unspecified (principal)
CPT/HCPCS: 87070

== ENCOUNTER 2022-09-24 10:00 | Outpatient (RCR) | payer MEDICARE, MEDICAID, SELFPAY ==
[2021-09-03 12:59] VITALS: BMI 43.4
--- NOTE | 2022-03-18 10:02 | HP.PTEVAL_ITS ---
Patient's Visit Information NATHALIE HERMAN is a 61 year old F referred to Physical Therapy by Dr. Irene Martell MD with a diagnosis of S/P R reverse total shoulder Arthroplasty DOS: 01/23/22. Date of Evaluation: 03/18/22 Physical Therapist: Kip Sunshine DPT - Visit Plan Frequency: 2x /Week Duration: 6 Weeks Plan: Start with progression ROM as tolerated, non forceful movement avoiding pain. Add in rotational PROM as well. Able to add in scap stability exercises. P sheryl per PROTOCOL. - Subjective Pt. is here today for her initial evaluation with diagnosis of R reverse total shoulder arthroplasty DOS: 01/23/22. Pt. is overall doing well. She went to a SNF for her recovery and did well. She is now back at home and overall pleased. She does have some soreness, but minimal overall. Pt. does report trouble reaching behind her head and behind her back resulting in some issues with grooming. 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 She declines N/T in either UE. She is to follow up with physician in 6 weeks. Pt. is hopeful to get back to all gardening and driving without limitations. - Pain R shoulder Pain Intensity (Out of 10): 1 Pain Intensity Range: 1, 4 - Objective POSTURE: pt. has decent posture in stance. Pt. has normal shoulder height bilaterally. R UE at her side at rest. PALPATION: pt. has normal healing incision. Pt. has slight tenderness at anterior shoulder, but is overwise normal. NEURO: Normal throughout BUEs both sensation and DTR. ROM: L shoulder: full AROM without increase in symptoms. R shoulder: PROM: flexion 124deg, abd 110deg, ER 15deg. IR not tested. AROM standing: R shoulder: flexion 90deg, abd 88deg, functional ER to ear, functional IR to R greater trochanter. MMT: LUE: 5/5 throughout wrist and elbow. L shoulder: flexion 17#, abd 13#, ext 22#, ER 12#, IR 24#. R shoulder: flexion 4#, abd 3#, ER 0#, IR 12#, ext 15#. - Balance/Special Test Scores Quick DASH Score: 77.2725 - Goals Goal 1:: LTG: Pt. to be I with HEP for ROM and strengthening exercises. Goal Time Frame: 4-6 Weeks Goal 2:: STG: Pt. to sleep throughout the night without limitations allowing for increased quality of life. Goal Time Frame: 2-4 Weeks Goal 3:: STG: Pt. to have increased ROM of her R shoulder to 140deg flexion, 140deg abd, functional ER to C3 and functional IR to PSIS allowing for increased ability to complete daily activities and grooming. Goal Time Frame: 2-4 Weeks Goal 4:: LTG: Pt. to have increased strength of R shoulder by at least 5# in all directions allowing for increased ability to complete lifting and carrying activities without limitations. Goal Time Frame: 4-6 Weeks - Rehabilitation Potential Physical Therapy Diagnosis: Pt. has signs and symptoms consistent with S/P R reverse total shoulder Arthroplasty DOS: 01/23/22. Pt. has marked hypomobility, weakness, slight increase in pain, and limited ability to complete ADLS and IADLS. Pt. would benefit from PT to progress ROM and strength in order to get back to all recreational and household activities without limitations. Rehabilitation Potential: Excellent - Anticipated Interventions Patient/Client Instruction: Educate patient on: Condition, Plan of Care, Risk Factors, Benefits of Fitness Program For the Purpose of:: To foster healthy habits, To improve decision making, To facilitate caregiver knowledge, To improve self management, To prevent re- injury, To improve ability to perform tasks related to life management, To improve tolerance to ADL's Therapeutic Exercise to Include: Strength training, Power training, Body mechanics, Postural training, Flexibilty training, Passive ROM, Active ROM, Scapular Strength/Stabilization For the Purpose of:: To decrease pain, To increase ROM, To improve nutrient delivery to tissue, To improve muscle performance and motor function, To improve ability to perform ADL's, To improve performance and independence with ADL's, To decrease level of supervision to perform tasks, To improve health of tissue, To decrease soft tissue restriction, To increase flexibility/ROM Manual Therapy Techniques to Include: Mobilization, Passive ROM For the Purpose of:: To decrease pain, To increase ROM, To improve health of tissue, To decrease soft tissue restriction, To increase flexibility/ROM Cryotherapy (ice pack, ice massage): Yes Thermo therapy (hot pack): Yes For the Purpose of:: To decrease pain, To increase ROM, To improve nutrient delivery to tissue, To increase oxygenation perfusion Thank you for the opportunity to evaluate your patient. For Medicare and Medicare HMO plans, please review the plan of care and approve it. It will need to be FAXED BACK to us at [phone] for Medicare purposes. For Medicare only, by signing this I certify the plan of care. Please let me know if there are questions or concerns regarding this plan of care. Physician Signature: Date:
--- NOTE | 2022-05-03 06:30 | HP.PTREVAL_ITS ---
Dr. Irene Martell MD, It has been my pleasure to treat NATHALIE HERMAN over the last 10 visits for S/P R reverse total shoulder Arthroplasty DOS: 01/23/22. Please see the progress note below for an update on the physical therapy plan of care! Subjective: Pt. reports overall doing better. She saw physiican who was happy, but wants better active shoulder Er and better functional IR motions. Pre. reports using her shoulder better at home. HEP compliant. 70% better overall, patient rated. Objective/Function: AROM: R shoulder: flexion 125deg, and 125deg, functional ER C4, functional IR- R PSIS. PROM: R shoulder: flexion 135deg, abd 135deg, ER at 90deg 75deg, IR at 90deg 30deg. MMT: Pt. has a 5 # difference in strength from L to R with flexion, abd. she has a 10# with ER from L to R and equal IR and extension. She really needs to work on functional IR motion, and active/strength of ER. this will help with active OH stability as well. Plan Plan: I would like to recert her. I am asking for another 6 weeks, x2 per week to progrss ER strength and active ROM. She is doing better, but still has some more to go. Balance/Gait/Functional tests - Balance/Special Test Scores Quick DASH Score: 31.8175 Goals Goal 1:: LTG: Pt. to be I with HEP for ROM and strengthening exercises. Goal Time Frame: 4-6 Weeks Goal Progress: Progressing Goal 2:: STG: Pt. to sleep throughout the night without limitations allowing for increased quality of life. Goal Time Frame: 2-4 Weeks Goal Progress: Goal Met Goal 3:: STG: Pt. to have increased ROM of her R shoulder to 140deg flexion, 140deg abd, functional ER to C3 and functional IR to PSIS allowing for increased ability to complete daily activities and grooming. Goal Time Frame: 2-4 Weeks Goal 4:: LTG: Pt. to have increased strength of R shoulder by at least 5# in all directions allowing for increased ability to complete lifting and carrying activities without limitations. Goal Time Frame: 4-6 Weeks Goal Progress: Progressing Anticipated Interventions Patient/Client Instruction: Educate patient on: Condition, Plan of Care, Risk Factors, Benefits of Fitness Program For the Purpose of:: To foster healthy habits, To improve decision making, To facilitate caregiver knowledge, To improve self management, To prevent re-inju ry, To improve ability to perform tasks related to life management, To improve tolerance to ADL's Therapeutic Exercise to Include: Strength training, Power training, Body mech anics, Postural training, Flexibilty training, Passive ROM, Active ROM, Scapular Strength/Stabilization For the Purpose of:: To decrease pain, To increase ROM, To improve nutrient delivery to tissue, To improve muscle performance and motor function, To improve ability to perform ADL's, To improve performance and independence with ADL's, To decrease level of supervision to perform tasks, To improve health of tissue, To decrease soft tissue restriction, To increase flexibility/ROM Manual Therapy Techniques to Include: Mobilization, Passive ROM For the Purpose of:: To decrease pain, To increase ROM, To improve health of tissue, To decrease soft tissue restriction, To increase flexibility/ROM Cryotherapy (ice pack, ice massage): Yes Thermo therapy (hot pack): Yes For the Purpose of:: To decrease pain, To increase ROM, To improve nutrient deli very to tissue, To increase oxygenation perfusion Please do not hesitate to contact me at [phone] by phone or if you have questions or concerns regarding this new plan of care! Sincerely, Kip Sunshine DPT
--- NOTE | 2022-07-17 12:01 | HP.PTREVAL_ITS ---
Dr. Irene Martell MD, It has been my pleasure to treat NATHALIE HERMAN over the last 23 visits for S/P R reverse total shoulder Arthroplasty DOS: 01/23/22. Please see the progress note below for an update on the physical therapy plan of care! Subjective: Pt. reports having an xray and seeing physician. Xrays were negative and phsician reports she must have strained her arm while moving her with his personal care. 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 No N/T noted. She has not had to help with taking care ov her due to staying in [facility]. Objective/Function: PROM: R shoulder: flexion 140deg increase NW, abd 135deg increase NW, ER at 45deg of abd 35deg, IR at 45deg of abd 30deg. AROM: flexion 90deg increase NW, abd 80deg increase NW, functional ER C1 increase NW, functional IR SI joint increase NW. MMT: R shoulder: flexion 4/5 increase NW, abd 4/5 increaes NW, IR 4/5 NE, ER 4-/5 increase NW, ext 5/5. Patient continues to present with increased pain and weakness after having to doing heavier lifting while taking care of her when their caregiver quit and the roopa lift battery . Xray ruled out acrominon issues. I would like to see her a few visits to work on reducing her symptoms, regaining her ROM and resume her st rengthening routine. Plan Plan: I am asking for 6 more visits due to her recent set back in her shoulder recovery after having to doing some heavy lifting while taking care of her disabled after caregiver quit and roopa lift battery . She would benefit from progressing back to AROM and stretching and slowly integrating back some light strengthening in order to back to all leadership program associate and activities.. Start with AAROM, ice/tens. Add in light stability/strengthening exercises as tolerated. Progress back to previous levels of strengthening/HEP. Balance/Gait/Functional tests - Balance/Special Test Scores Quick DASH Score: 34.0900 Goals Goal 1:: LTG: Pt. to be I with HEP for ROM and strengthening exercises. Goal Time Frame: 4-6 Weeks Goal Progress: Progressing Goal 2:: STG: Pt. to sleep throughout the night without limitations allowing for increased quality of life. Goal Time Frame: 2-4 Weeks Goal Progress: Goal Met Goal 3:: STG: Pt. to have increased ROM of her R shoulder to 140deg flexion, 140deg abd, functional ER to C3 and functional IR to PSIS allowing for increased ability to complete daily activities and grooming. Goal Time Frame: 2-4 Weeks Goal Progress: Progressing Goal 4:: LTG: Pt. to have increased strength of R shoulder by at least 5# in all directions allowing for increased ability to complete lifting and carrying activities without limitations. Goal Time Frame: 4-6 Weeks Goal Progress: Progressing Anticipated Interventions Patient/Client Instruction: Educate patient on: Condition, Plan of Care, Risk Factors, Benefits of Fitness Program For the Purpose of:: To foster healthy habits, To improve decision making, To facilitate caregiver knowledge, To improve self management, To prevent re- injury, To improve ability to perform tasks related to life management, To improve tolerance to ADL's Therapeutic Exercise to Include: Strength training, Power training, Body mechanics, Postural training, Flexibilty training, Passive ROM, Active ROM, Scapular Strength/Stabilization For the Purpose of:: To decrease pain, To increase ROM, To improve nutrient delivery to tissue, To improve muscle performance and motor function, To improve ability to perform ADL's, To improve performance and independence with ADL's, To decrease level of supervision to perform tasks, To improve health of tissue, To decrease soft tissue restriction, To increase flexibility/ROM Manual Therapy Techniques to Include: Mobilization, Passive ROM For the Purpose of:: To decrease pain, To increase ROM, To improve health of tissue, To decrease soft tissue restriction, To increase flexibility/ROM Cryotherapy (ice pack, ice massage): Yes Thermo therapy (hot pack): Yes For the Purpose of:: To decrease pain, To increase ROM, To improve nutrient delivery to tissue, To increase oxygenation perfusion Please do not hesitate to contact me at [phone] by phone or if you have questions or concerns regarding this new plan of care! Sincerely, CHANTEL FrankT
--- NOTE | 2022-08-26 13:56 | HP.PTEVAL2 ---
Patient's Visit Information NATHALIE HERMAN is a 61 year old F referred to Physical Therapy by Dr. Irene Martell MD with a diagnosis of R sided weakness after TIA. Date of Evaluation: 08/23/22 Physical Therapist: Kip Sunshine DPT - Visit Plan Frequency: 2x /Week Duration: 4 Weeks Plan: Start with BLE strengthening with focus on RLE. Add in balance/proprioception exercises. Progress to endurance ambulation and stair negotiation. - Subjective Subjective: Pt. is here today for her initial evaluation with diagnosis of TIA with subsequent R sided weakness. Pt. reports last weekend having to go to the hospital with R sided weakness. Pt. reports that she was diagnosed with a TIA, and was starting to feel better prior to leaving hospital, and has doing better since. She is still noticing some weakness in her R side, leg only. No R UE symptoms. She denies N/T, no dizziness or changes in vision. WECLH noted either. Pt. did fall a few days ago, tripped over an object. No marked injury noted. Pt. is still doing therapy for her R shoulder which is doing much better. She still takes care of her at home, who requires assistance with most mobility. She is getting around okay, but reports having marked weakness in her RLE. Pt. reports no pain in either LE. She is getting around well at home. - Objective Objective: POSTURE: Pt. has decent posture in stance. Slight increased RANGEL. Normal rest of posture. PALPATION: Pt. has no pain with palpation throughout BUEs and BLEs. NEURO: Pt. has slight decreased sensation at lateral distal RLE. Pt. has normal DTR of B Achilles and Patellar tendons. Pt. does have some trouble rising on heels and toes. Less ROM noted on R side compared to L. MMT: LLE: ankle: PF 55#, DF 33.1#; knee: ext 33.1#, Flexion 29.9#; hip: flexion 23.1#, abd 19.5#. RLE: ankle DF 3#, PF 7#; knee: ext 8#, flexion 10#; hip: flexion 11.1#, abd 9.1#. Core strength poor. GAIT: Pt. ambulates without AD. She has a wide RANGEL, slight decrease in L step length and R stance phase. Pt. did not present like her RLE was giving out on her, and no hyper extension noted. STAIRS: Pt. completed with 2 HR with step to pattern, loading LLE only. Pt. was able to do reciprocally, but had marked functional weakness on the R side. - Balance/Special Gait Scores TUG Test Time Seconds: 17.1 30 Second Chair Rise Test Seconds: 7 - Goals Goal 1:: LTG: Pt. to be I with LE strengthening for HEP. Goal Time Frame: 4-6 Weeks Goal 2:: LTG: Pt. to have RLE symmetrical to L side in all effected areas allowing for increased stability with gait and balance. Goal Time Frame: 4-6 Weeks Goal 3:: LTG: Pt. to have a TUG time of less than 8 seconds indicated reduced risk for falls. Goal Time Frame: 4-6 Weeks Goal 4:: LTG: pt. to negotiate steps with 1 HR with reciprocal pattern without signs of functional weakness. Goal Time Frame: 4-6 Weeks Goal 5:: LTG: Pt. to ambulate 1000 feet during 6 MWT indicating increased ability for community ambulation. Goal Time Frame: 4-6 Weeks - Rehabilitation Potential Physical Therapy Diagnosis: Pt. has marked R sided weakness after recent TIA. She seems to only have effected her RLE. She did have 1 fall since being home, tripped over an object. She has marked weakness on her R side which is effecting her balance and stability with her gait. Pt. would benefit from PT to address her weakness and resultant instability with gait. Rehabilitation Potential: Excellent - Anticipated Interventions Patient/Client Instruction: Educate patient on: Condition, Plan of Care, Risk Factors, Benefits of Fitness Program For the Purpose of:: To improve health and function, To foster healthy habits, To improve decision making, To facilitate caregiver knowledge, To improve self management, To prevent re-injury, To improve ability to perform tasks related to life management Therapeutic Exercise to Include: Strength training, Power training, Endurance training, Balance training, Coordination, Body mechanics, Gait and locomotor training For the Purpose of:: To increase ROM, To improve nutrient delivery to tissue, To increase oxygenation perfusion, To improve muscle performance and motor function, To increase tolerance to activity/condition/position, To improve gait and locomotor functions, To improve health of tissue, To decrease soft tissue restriction, To increase flexibility/ROM, To improve endurance Thank you for the opportunity to evaluate your patient. For Medicare and Medicare HMO plans, please review the plan of care and approve it. It will need to be FAXED BACK to us at [phone] for Medicare purposes. For Medicare only, by signing this I certify the plan of care. Please let me know if there are questions or concerns regarding this plan of care. Physician Signature: Date:
== END 2022-09-24 19:00 | disposition home or self-care (01) ==
LOC: PT 10:00
PROVIDERS: PCP Internal Medicine; Referring Provider Internal Medicine; Visit Provider Internal Medicine
DX: M81.0 Age-related osteoporosis without current pathological fracture (principal)
CPT/HCPCS: 97110; 97112; 97140; 97161; 97164; J2405

== ENCOUNTER 2022-10-30 15:46 | Emergency (ER) | payer MEDICARE, MEDICAID, SELFPAY ==
[2021-09-03 12:59] VITALS: BMI 43.4
[2022-10-30 15:47] VITALS: BP 195/86; PULSE 82; RESP 16; TEMP 36.6; O2SAT 98; BMI 41.0
--- NOTE | 2022-10-30 16:05 | EDS_ITS ---
HPI History of Present Illness Chief Complaint: Laceration Narrative Narrative: 61-year-old female past medical history of multiple DVTs and pulmonary emboli, on Coumadin, presents with injury to her left hand. She states that 11:00 this morning, approximately 5 hours ago, she was trying to pry open a plastic lid with a knife. She is right-hand dominant, she had her left hand on top of the lid, and the knife slipped and poked through the lid, creating a puncture wound to the webspace between her first and second digit on her left hand. She states that the bleeding has been continuous. She presents mainly for hemostasis and closure of the wound. She denies other injury. She is unsure of her last tetanus immunization but thinks it has been greater than 10 years. [facility] Medical History Anxiety Arthritis Asthma Atherosclerotic heart disease of [place] coronary artery without angina pectoris Back pain Back pain with sciatica Bilateral carotid bruits BiPAP (biphasic positive airway pressure) dependence Body mass index 45.0-49.9, adult Cardiology follow-up encounter Carotid artery disease COPD (chronic obstructive pulmonary disease) COVID-19 Depression Diabetes Diastolic heart failure Discoloration of skin Easy bruising Essential hypertension Excessive bleeding High cholesterol History of DVT (deep vein thrombosis) History of echocardiogram History of edema History of pain when walking History of pulmonary embolism History of steroid therapy History of stress test History of transcatheter aortic valve replacement (TAVR) (~04/19/21) Hx of transesophageal echocardiography (YOLANDA) for monitoring Insulin dependent diabetes mellitus Leg cramps Migraine headache Morbid obesity Non-smoker Nonrheumatic aortic (valve) stenosis On home oxygen therapy CHELSEY treated with BiPAP Personal history of anaphylaxis Positive FIT (fecal immunochemical test) Pulmonary embolism Restless legs Rotator cuff arthropathy of right shoulder Shortness of breath on exertion TIA (transient ischemic attack) Type 2 diabetes mellitus Home Medications fluoxetine 20 mg capsule 40 mg PO DAILY anxiety 01/26/14 [History Last Taken 04/05/21] potassium chloride 10 mEq tablet,extended release(part/cryst) 10 meq PO BID Potassium Chloride 01/06/16 [History Last Taken 08/11/22] Ca 600 mg-D3 800 unit-magnes 40 qi-whhs-xtp-angel-boron chewable tablet 1 ea PO DAILY vitamins 05/27/16 [History Last Taken 04/05/21] fenofibrate nanocrystallized 145 mg tablet 72.5 mg PO QHS cholesterol 04/26/19 [History Last Taken 04/04/21] ergocalciferol (vitamin D2) 1,250 mcg (50,000 unit) capsule 50,000 unit PO WE supplement 08/09/19 [History Last Taken 04/04/21] trazodone 50 mg tablet 50 mg PO QHS sleep 08/09/19 [History Last Taken 04/04/21] epinephrine 0.3 mg/0.3 mL injection, auto-injector 0.3 mg (0.3 mL) IM X1 PRN Anaphylaxis #1 ea 01/18/20 [Rx Last Taken Unknown] albuterol sulfate 2.5 mg/3 mL (0.083 %) solution for nebulization 2.5 mg (3 mL) inhalation Q2H PRN PRN dyspnea, wheezing #180 mL 04/24/20 [Rx Last Taken 07/02/21 09:00] albuterol sulfate 90 mcg/actuation aerosol inhaler 2 inh inhalation Q4H PRN PRN Sob &/Or Wheezing #18 grams 04/24/20 [Rx Last Taken 04/29/22] montelukast 10 mg tablet 10 mg PO DAILY allergies/asthma #30 tabs 12/07/20 [Rx Last Taken 04/05/21] alendronate 70 mg tablet 70 mg PO WE bone health 12/21/20 [History Last Taken 08/07/22] nystatin 100,000 unit/gram topical powder 1 applic topical BID PRN PRN YEAST 12/21/20 [History Last Taken 04/05/21] ondansetron 4 mg disintegrating tablet 4 mg PO Q8H PRN Nausea 12/21/20 [History Last Taken Unknown] beclomethasone dipropionate 80 mcg/actuation HFA breath activated aerosol 1 inh inhalation BID Asthma 03/22/21 [History Last Taken 07/02/21 09:00] budesonide-formoterol HFA 160 mcg-4.5 mcg/actuation aerosol inhaler 2 puff inhalation BID asthma 03/22/21 [History Last Taken 04/29/22] furosemide 40 mg tablet 40 mg PO MOWEFR diuresis 03/22/21 [History Last Taken 04/05/21] ipratropium 0.5 mg-albuterol 3 mg (2.5 mg base)/3 mL nebulization soln 3 ml inhalation BID asthma 03/22/21 [History Last Taken 04/05/21] tizanidine 4 mg capsule 4 mg PO Q8H PRN muscle relaxer 03/22/21 [History Last Taken 04/04/21] cyanocobalamin (vitamin B-12) 100 mcg tablet (Vitamin B-12) 100 mcg PO DAILY supplement 04/05/21 [History Last Taken 04/05/21] melatonin 10 mg tablet 10 mg PO QHS sleep 04/05/21 [History Last Taken 04/04/21] oxycodone-acetaminophen 5 mg-325 mg tablet (Percocet) 1 tab PO Q6H PRN PRN Pain 04/05/21 [History Last Taken 08/10/22] pregabalin 150 mg capsule 150 mg PO TID nerve pain 04/05/21 [History Last Taken 08/11/22] diltiazem HCl 240 mg capsule,extended release 24 hr 240 mg PO DAILY BP 04/06/21 [History Last Taken 07/02/21 09:00] meclizine 25 mg tablet 25 mg PO DAILY PRN Vertigo 05/04/21 [History Last Taken Unknown] warfarin 6 mg tablet 9 mg PO DAILY blood thinner 05/04/21 [History Last Taken 06/09/22] docusate sodium 100 mg capsule 100 mg PO BID stool softener 08/17/21 [History Last Taken Unknown] magnesium 250 mg tablet 250 mg PO DAILY supplement 08/17/21 [History Last Taken Unknown] L.acidophil-L.casei-B.bifid-B.longum-FOS 2 billion cell-50 mg capsule (Probiotic Blend) 1 cap PO DAILY supplement 11/07/21 [History Last Taken Unknown] ascorbate calcium (vitamin C) 500 mg tablet 500 mg PO DAILY vitamin 11/07/21 [History Last Taken Unknown] chromium picolinate 200 mcg tablet 200 mcg PO DAILY supplement 11/07/21 [History Last Taken Unknown] clobetasol 0.05 % topical cream 1 applic topical PRN PRN RASH/ITCHING 11/07/21 [History Last Taken Unknown] coconut oil 1,000 mg capsule 1,000 mg PO DAILY supplement 11/07/21 [History Last Taken Unknown] cyclobenzaprine 5 mg tablet 10 mg PO PRN PRN MUSCLE CRAMPING 11/07/21 [History Last Taken 08/11/22] guaifenesin 400 mg tablet (Mucus Relief) 400 mg PO Q4H PRN PRN Cough 11/07/21 [History Last Taken Unknown] levocetirizine 5 mg tablet 5 mg PO DAILY allergies 11/07/21 [History Last Taken Unknown] polyethylene glycol 3350 17 gram/dose oral powder (Miralax) 17 g PO DAILY PRN PRN Constipation 11/07/21 [History Last Taken Unknown] rizatriptan 10 mg disintegrating tablet (Maxalt-[employer]ELOPER) 10 mg PO PRN PRN MIGRAINES 11/07/21 [History Last Taken Unknown] semaglutide 1 mg/dose (2 mg/1.5 mL) subcutaneous pen injector 1 mg subcut TH diabetes 11/07/21 [History Last Taken Unknown] vitamin K2 45 mcg capsule 45 mcg PO DAILY vitamin 11/07/21 [History Last Taken Unknown] zinc amino acid chelate 50 mg tablet 50 mg PO DAILY supplement 11/07/21 [History Last Taken Unknown] insulin glargine U-300 conc 300 unit/mL (1.5 mL) subcutaneous pen (Toujeo SoloStar U-300 Insulin) 50 unit subcut BID DIABETES 04/29/22 [History Last Taken 04/28/22 25 MG] dicyclomine 10 mg capsule 10 mg PO BID diarrhea/cramps #60 caps 07/01/22 [Rx Last Taken Unknown] omeprazole 40 mg capsule,delayed release 40 mg PO BID #180 caps 07/01/22 [Rx Last Taken Unknown] sucralfate 1 gram tablet 1 g PO QAC #90 tabs 07/01/22 [Rx Last Taken Unknown] dapagliflozin 10 mg tablet (Farxiga) 10 mg PO DAILY diabetes 08/11/22 [History Last Taken 08/11/22] moexipril 15 mg tablet 15 mg PO DAILY 08/11/22 [History Last Taken Unknown] pitavastatin calcium 4 mg tablet (Livalo) 4 mg PO DAILY cholesterol 08/11/22 [History Last Taken Unknown] Allergy/AdvReac Type Severity Reaction Status Date / Time clindamycin Allergy Rash Verified 10/30/22 15:49 erythromycin base Allergy Rash Verified 10/30/22 15:49 [Erythromycin Base] omalizumab [From Xolair] Allergy Chest Verified 10/30/22 15:49 tightness Penicillins Allergy Rash Verified 10/30/22 15:49 sulfamethoxazole Allergy Chest Verified 10/30/22 15:49 [From Bactrim] tightness trimethoprim [From Bactrim] Allergy Chest Verified 10/30/22 15:49 tightness Sulfa (Sulfonamide AdvReac Unknown Unknown Verified 10/30/22 15:49 Antibiotics) Family History Father Heart disease Diabetes CAD (coronary artery disease) Mother CAD (coronary artery disease) CVA (cerebral vascular accident) Diabetes Brother CAD (coronary artery disease) CVA (cerebral vascular accident) Diabetes Unknown Cancer Grandmother CVA (cerebral vascular accident) Diabetes Grandfather CVA (cerebral vascular accident) Grandmother Myocardial infarction Brother Diabetes Sister Diabetes Surgical History Aortic valve replaced H/O lumbosacral spine surgery History of cardiac catheterization History of section History of hernia repair History of left heart catheterization (LHC) (~01/19/21) History of neck surgery History of rotator cuff surgery Hx of appendectomy Social History household members: spouse housing: apartment pets and animals: Yes Smoking Status: Never smoker second hand exposure: No alcohol intake: current alcohol intake frequency: a few times a week substance use type: does not use caffeine: No what type of physical activity do you participate in: none do you feel safe at home: Yes ROS ROS ED ROS Narrative Constitutional: No fever, no chills. HEENT: No sore throat. No neck pain. No loss of vision. No rhinorrhea. Cardiovascular: No chest pain. No palpitations. No pedal edema. Respiratory: No cough, no shortness of breath. Abdominal: No abdominal pain. No nausea. No vomiting. Genitourinary: No dysuria. No hematuria. Musculoskeletal: No myalgias. No arthralgias. Puncture wound to webspace of left hand between first and second digit. Continued bleeding. Neurologic: No headaches. No dizziness. No lightheadedness. Skin: No rash. No change in color. Psychiatric: No depression. No anxiety. EXAM Physical Exam Narrative Exam Narrative: Afebrile. Vital signs noted. HEENT: Normocephalic. Atraumatic. PERRL, EOMI. Neck soft and supple. No point tenderness or step off. Cardiovascular: Regular rate and rhythm. No murmurs, rubs, or gallops appreciated. Respiratory: No tachypnea. Lungs clear to auscultation bilaterally. Gastrointestinal: Abdomen soft, nontender, with normoactive bowel sounds. No rebound or guarding. Neurological: Awake. Alert. Nonfocal, nonlateralizing. Skin: No rash. Normal color. No pallor. Musculoskeletal: No pedal edema. Full range of motion extremities. Inspection of the webspace of the left hand between the first and second digit reveals a puncture wound with continued oozing that appears pulsatile, but does not appear arterial. She is able to oppose her thumb and move all her digits. She has good capillary refill. Palpable radial pulse. Const Vital Signs: 10/30/22 15:47 Temperature 97.8 F Temperature Source Temporal Pulse Rate 82 Respiratory Rate 16 Blood Pressure 195/86 H Blood Pressure Mean 122 Pulse Ox 98 Oxygen Delivery Method Room Air MDM MDM MDM Narrative Medical decision making narrative: Pressure bandage was reapplied. She was given a Boostrix immunization to update her tetanus immunization. I will check her INR. I do feel that this may require a figure of 8 stitch for closure. See following procedure note for details. Procedure note: Patient was informed of the risk of infection and scarring and acknowledges an understanding. She was prepped in a sterile fashion, wound was cleansed with normal saline and Shur-Clens/chlor hexedine. Lidocaine 1% was used as a local anesthetic. Initially, 2 simple interrupted sutures with five- point 0 nylon were inserted for skin closure. There was still mild bleeding. Figure of 8 suture was placed on top of this which achieved hemostasis. Patient tolerated the procedure well. I reviewed her INR and it is actually subtherapeutic at 1.5. As hemostasis has been achieved, I feel she can be discharged safely home with follow-up. She will have the sutures removed in 7 to 10 days. She will look for signs of infection and return with any fever, redness, drainage of pus from the wound, increased bleeding, new or worsening symptoms. Disposition is discharged home in improved and stable condition. Lab Data Attestation: I reviewed the patient's lab results. Discharge Plan Triage Chief Complaint: Laceration ED Provider: Everardo Alfaro Dx/Rx/DC Orders Clinical Impression: Laceration of hand, left, Puncture wound, Immunization, tetanus-diphtheria Instructions: ED Laceration, Hand: All Closures, ED Puncture Wound (General) Prescriptions: No Action ergocalciferol (vitamin D2) 50,000 unit capsule 50,000 unit PO WE trazodone 50 mg tablet 50 mg PO QHS albuterol sulfate 2.5 mg /3 mL (0.083 %) solution for nebulization 2.5 mg INHALATION Q2H PRN PRN (Reason: dyspnea, wheezing) Qty: 180 6RF albuterol sulfate 90 mcg/actuation HFA aerosol inhaler 2 inh INHALATION Q4H PRN PRN (Reason: Sob &/Or Wheezing) Qty: 18 6RF montelukast 10 mg tablet 10 mg PO DAILY Qty: 30 6RF alendronate 70 mg tablet 70 mg PO WE ondansetron 4 mg tablet,disintegrating 4 mg PO Q8H PRN (Reason: Nausea) nystatin 100,000 unit/gram powder 1 applic TOPICAL BID PRN PRN (Reason: YEAST) warfarin 6 mg tablet 9 mg PO DAILY Rx Instructions: two 4 mg tablets and one 1mg tablet meclizine 25 mg tablet 25 mg PO DAILY PRN (Reason: Vertigo) magnesium 250 mg tablet 250 mg PO DAILY levocetirizine 5 mg tablet 5 mg PO DAILY cyclobenzaprine 5 mg tablet 10 mg PO PRN PRN (Reason: MUSCLE CRAMPING) clobetasol 0.05 % cream 1 applic topical PRN PRN (Reason: RASH/ITCHING) guaifenesin [Mucus Relief] 400 mg tablet 400 mg PO Q4H PRN PRN (Reason: Cough) polyethylene glycol 3350 [Miralax] 17 gram/dose powder 17 g PO DAILY PRN PRN (Reason: Constipation) rizatriptan [Maxalt-[employer]EL[employer]] 10 mg tablet,disintegrating 10 mg PO PRN PRN (Reason: MIGRAINES) chromium picolinate 200 mcg tablet 200 mcg PO DAILY coconut oil 1,000 mg capsule 1,000 mg PO DAILY Probiotic Blend 2 billion cell-50 mg capsule 1 cap PO DAILY Rx Instructions: give with meal/snack ascorbate calcium (vitamin C) 500 mg tablet 500 mg PO DAILY vitamin K2 45 mcg capsule 45 mcg PO DAILY zinc amino acid chelate 50 mg tablet 50 mg PO DAILY dicyclomine 10 mg capsule 10 mg PO BID Qty: 60 0RF omeprazole 40 mg capsule,delayed release(DR/EC) 40 mg PO BID Qty: 180 0RF sucralfate 1 gram tablet 1 g PO QAC Qty: 90 0RF fluoxetine 20 MG capsule 40 mg PO DAILY Label Comments: Depression/anxiety potassium chloride 10 MEQ tablet 10 meq PO BID Label Comments: Supplement docusate sodium 100 mg capsule 100 mg PO BID Label Comments: Stool softner Zo-Q2-dcj-lccv-een-uxwz-boron 1 EACH tablet,chewable 1 ea PO DAILY fenofibrate nanocrystallized 145 MG tablet 72.5 mg PO QHS semaglutide 1 mg/dose (2 mg/1.5 mL) pen injector 1 mg subcut TH Rx Instructions: OZEMPIC tizanidine 4 mg Capsule 4 mg PO Q8H PRN (Reason: muscle relaxer) furosemide 40 MG tablet 40 mg PO MOWEFR Label Comments: Diuretic - water pill to remove extra fluid ipratropium-albuterol 0.5 mg-3 mg(2.5 mg base)/3 mL solution for nebulization 3 ml INHALATION BID Rx Instructions: Continue until re-evaluation per pulmonary with possible transition back to home regimen at that time. budesonide-formoterol 160-4.5 mcg/actuation HFA aerosol inhaler 2 puff INHALATION BID beclomethasone dipropionate 80 mcg/actuation HFA aerosol breath activated 1 inh inhalation BID oxycodone-acetaminophen [Percocet] 5-325 mg Tablet 1 tab PO Q6H PRN PRN (Reason: Pain) cyanocobalamin (vitamin B-12) [Vitamin B-12] 100 mcg Tablet 100 mcg PO DAILY pregabalin 150 mg capsule 150 mg PO TID melatonin 10 mg Tablet 10 mg PO QHS diltiazem HCl 240 mg capsule,extended release 24hr 240 mg PO DAILY Toujeffrey SoloStar U-300 Insulin 300 unit/mL (1.5 mL) insulin pen 50 unit SUBCUT BID Label Comments: INJECT 56 UNITSESUBCUTANEOUSLY JUNIOR Rx Instructions: TOUJEO moexipril 15 mg tablet 15 mg PO DAILY Livalo 4 mg tablet 4 mg PO DAILY Farxiga 10 mg tablet 10 mg PO DAILY epinephrine 0.3 mg/0.3 mL auto-injector 0.3 mg IM X1 PRN (Reason: Anaphylaxis) Qty: 1 0RF Primary Care Provider: Ophelia Soria Referrals: Ophelia Soria DO [Primary Care Provider] - 7 Days for suture removal Disposition Disposition: Home, Self Care Discharge Date/Time: 10/30/22 17:17
[2022-10-30 16:38] LABS: International Normalized Ratio 1.5; Prothrombin Time (Protime)PT. 17.3 SECONDS (11.7-14.9)
[2022-10-30] MEDS: Diphth,Pertuss(Acell),Tet Vac 0.5 ML Vial IM (16:59)
[2022-10-30] MEDS: Lidocaine 1% (20 ml mdv) 20 ML Vial INFILT (17:00)
[2022-10-30 17:15] VITALS: PULSE 88; RESP 17; O2SAT 98
== END 2022-10-30 17:17 | disposition home or self-care (01) ==
PROVIDERS: Emergency Provider Emergency Medicine; PCP Internal Medicine; Visit Provider Emergency Medicine
DX: S61.432A Puncture wound without foreign body of left hand, initial encounter (principal); J44.9 Chronic obstructive pulmonary disease, unspecified; I11.0 Hypertensive heart disease with heart failure; I50.32 Chronic diastolic (congestive) heart failure; E66.01 Morbid (severe) obesity due to excess calories; Z68.41 Body mass index [BMI] 40.0-44.9, adult; Z79.4 Long term (current) use of insulin; E11.9 Type 2 diabetes mellitus without complications; W26.0XXA Contact with knife, initial encounter; Y93.89 Activity, other specified; E78.00 Pure hypercholesterolemia, unspecified; I25.10 Atherosclerotic heart disease of native coronary artery without angina pectoris; Z99.81 Dependence on supplemental oxygen; Z79.01 Long term (current) use of anticoagulants; Z79.899 Other long term (current) drug therapy; Z86.16 Personal history of COVID-19; Z86.711 Personal history of pulmonary embolism; Z86.718 Personal history of other venous thrombosis and embolism; Z86.73 Personal history of transient ischemic attack (TIA), and cerebral infarction without residual deficits; Z23 Encounter for immunization
CPT/HCPCS: 12001; 36415; 85610; 90471; 90715; 99283

== ENCOUNTER 2022-10-31 08:23 | Outpatient (RCR) | payer MEDICARE, MEDICAID, SELFPAY ==
[2021-09-03 12:59] VITALS: BMI 43.4
[2022-10-31 09:45] LABS: International Normalized Ratio 1.2; Prothrombin Time (Protime)PT. 14.8 SECONDS (11.7-14.9)
== END 2022-10-31 18:00 | disposition home or self-care (01) ==
LOC: LAB 08:23
PROVIDERS: PCP Internal Medicine; Referring Provider Internal Medicine; Visit Provider Internal Medicine
DX: I82.409 Acute embolism and thrombosis of unspecified deep veins of unspecified lower extremity (principal)
CPT/HCPCS: 36415; 85610

== ENCOUNTER 2022-11-05 13:30 | Outpatient (RCR) | payer MEDICARE, MEDICAID, SELFPAY ==
[2021-09-03 12:59] VITALS: BMI 43.4
--- NOTE | 2022-10-15 11:01 | HP.PTREVAL_ITS ---
Dr. Irene Martell MD, It has been my pleasure to treat NATHALIE HERMAN over the last 40 visits for Reverse RTS. Please see the progress note below for an update on the physical therapy plan of care! Subjective: Pt. reports being more sore today after some of the exercises last visit. She reports that each time she starts to strengthening it becomes more so re. Objective/Function: ROM: AROM: R shoulder flexion 140deg, abd 130deg, functional ER C3, functional IR L5. PROM: flexion 140deg, abd 130deg, ER at side 30deg, IR at 30dge of abd 30deg. MMT: R shoulder flexion 4/5 abd 4/5, ext 4/5, ER 4-/5, IR 4+/5. Pt is overall doing well, she does have some soreness with increased use of her R shoulder. She has to assist her fairly heavily with mobility and her shoulder tends to be very sore after this. I would like to continue to work on progressive strengthening as tolerated. Plan Plan: Pt. still has some weakness in her shoulder. I would like to ask for some more visits to work on shoulder strengthening progressing back to tolerance with assisting her with all of his functional mobility. Balance/Gait/Functional tests - Balance/Special Test Scores Quick DASH Score: 22.7250 Goals Goal 1:: LTG: Pt. to be I with HEP. Goal Time Frame: 2-4 Weeks Goal Progress: Progressing Goal 2:: LTG: Pt. to have symmetrical ROM of R shoulder to L side without increase in symptoms. Goal Time Frame: 2-4 Weeks Goal Progress: Progressing Goal 3:: LTG: Pt. to have 5-/5 strength throughout RUE. Goal Time Frame: 2-4 Weeks Goal Progress: Progressing Goal 4:: LTG: Pt. to complete all ADLs and recreational activities without increase in R shoulder pain. Goal Time Frame: 4-6 Weeks Goal Progress: Progressing Anticipated Interventions Patient/Client Instruction: Educate patient on: Condition, Plan of Care, Risk Factors, Benefits of Fitness Program For the Purpose of:: To improve decision making, To facilitate caregiver knowledge, To improve self management, To prevent re-injury, To improve ability to perform tasks related to life management Therapeutic Exercise to Include: Strength training, Power training, Endurance training, Flexibilty training, Passive ROM, Active ROM, Scapular Strength/Stabilization For the Purpose of:: To decrease pain, To increase ROM, To improve nutrient delivery to tissue, To increase oxygenation perfusion, To improve muscle performance and motor function, To improve ability to perform ADL's, To improve health of tissue, To decrease soft tissue restriction, To increase flexibility/ROM Please do not hesitate to contact me at [phone] by phone or if you have questions or concerns regarding this new plan of care! Sincerely, CHANTEL FrankT
== END 2022-11-05 19:00 | disposition home or self-care (01) ==
LOC: PT 13:30
PROVIDERS: PCP Internal Medicine; Referring Provider Internal Medicine; Visit Provider Internal Medicine
DX: M81.0 Age-related osteoporosis without current pathological fracture (principal); Z96.619 Presence of unspecified artificial shoulder joint
CPT/HCPCS: 97110; 97140

== ENCOUNTER 2022-11-10 15:50 | Emergency (ER) | payer MEDICARE, MEDICAID, SELFPAY ==
[2021-09-03 12:59] VITALS: BMI 43.4
[2022-11-10 15:51] VITALS: TEMP 36.3; BMI 41.7
[2022-11-10 15:55] VITALS: BP 184/67; PULSE 68; O2SAT 98
--- NOTE | 2022-11-10 16:07 | ED.VIS.FALL ---
HPI HPI - Fall History of Present Illness Chief Complaint: Fall Informant: patient and EMS Occured/Mechanism Occurred: Today (JPTA) Mechanism/Context: Yes slip Narrative: On wet pavement, falling from top of short outdoor staircase against the edge of the second step against her left mid-upper back Usually ambulates: Without assistance Pain/Injury Pain Location: back Quality of Pain: Aching Current Severity: Severe Maximum Severity: Severe Worsened by: Deep inspiration, movement Relieved by: Remaining still breathing easy Associated Symptoms Associated Symptoms: Negative for Parasthesias, Weakness, Loss of function, Inability to ambulate, Loss of consciousness or Amnesia Narrative Narrative: Was coming out of a laundry area of her apartment complex, she slipped on a wet outdoor step and fell injuring her back. She states she did not have immediately severe pain, she got up and walked, sat down and the pain started becoming severe at that time. It hurts in her left upper/mid back with deep inspiration and with movement. She states initially she had the wind knocked out of her but that got better. She thinks she bumped her left upper arm but states it is not really hurting and she can move her extremities without any difficulty. She denies any head injury or neck pain, no loss of consciousness. She does not have any pain anteriorly in her chest, abdomen, pelvis. She is anticoagulated because of history of DVT and pulmonary emboli. She denies any bleeding that she has noticed from this injury. Subsequent to the fall, and being very anxious and being in a lot of pain, she started having some mild wheezing that she attributes to her asthma. [facility] Medical History Anxiety Arthritis Asthma Atherosclerotic heart disease of [place] coronary artery without angina pectoris Back pain Back pain with sciatica Bilateral carotid bruits BiPAP (biphasic positive airway pressure) dependence Body mass index 45.0-49.9, adult Cardiology follow-up encounter Carotid artery disease COPD (chronic obstructive pulmonary disease) COVID-19 Depression Diabetes Diastolic heart failure Discoloration of skin Easy bruising Essential hypertension Excessive bleeding High cholesterol History of DVT (deep vein thrombosis) History of echocardiogram History of edema History of pain when walking History of pulmonary embolism History of steroid therapy History of stress test History of transcatheter aortic valve replacement (TAVR) (~04/19/21) Hx of transesophageal echocardiography (YOLANDA) for monitoring Insulin dependent diabetes mellitus Leg cramps Migraine headache Morbid obesity Non-smoker Nonrheumatic aortic (valve) stenosis On home oxygen therapy CHELSEY treated with BiPAP Personal history of anaphylaxis Positive FIT (fecal immunochemical test) Pulmonary embolism Restless legs Rotator cuff arthropathy of right shoulder Shortness of breath on exertion TIA (transient ischemic attack) Type 2 diabetes mellitus Home Medications fluoxetine 20 mg capsule 40 mg PO DAILY anxiety 01/26/14 [History Last Taken 04/05/21] potassium chloride 10 mEq tablet,extended release(part/cryst) 10 meq PO BID Potassium Chloride 01/06/16 [History Last Taken 08/11/22] Ca 600 mg-D3 800 unit-magnes 40 nn-qwfu-fck-angel-boron chewable tablet 1 ea PO DAILY vitamins 05/27/16 [History Last Taken 04/05/21] fenofibrate nanocrystallized 145 mg tablet 72.5 mg PO QHS cholesterol 04/26/19 [History Last Taken 04/04/21] ergocalciferol (vitamin D2) 1,250 mcg (50,000 unit) capsule 50,000 unit PO WE supplement 08/09/19 [History Last Taken 04/04/21] trazodone 50 mg tablet 50 mg PO QHS sleep 08/09/19 [History Last Taken 04/04/21] epinephrine 0.3 mg/0.3 mL injection, auto-injector 0.3 mg (0.3 mL) IM X1 PRN Anaphylaxis #1 ea 01/18/20 [Rx Last Taken Unknown] albuterol sulfate 2.5 mg/3 mL (0.083 %) solution for nebulization 2.5 mg (3 mL) inhalation Q2H PRN PRN dyspnea, wheezing #180 mL 04/24/20 [Rx Last Taken 07/02/21 09:00] albuterol sulfate 90 mcg/actuation aerosol inhaler 2 inh inhalation Q4H PRN PRN Sob &/Or Wheezing #18 grams 04/24/20 [Rx Last Taken 04/29/22] montelukast 10 mg tablet 10 mg PO DAILY allergies/asthma #30 tabs 12/07/20 [Rx Last Taken 04/05/21] alendronate 70 mg tablet 70 mg PO WE bone health 12/21/20 [History Last Taken 08/07/22] nystatin 100,000 unit/gram topical powder 1 applic topical BID PRN PRN YEAST 12/21/20 [History Last Taken 04/05/21] ondansetron 4 mg disintegrating tablet 4 mg PO Q8H PRN Nausea 12/21/20 [History Last Taken Unknown] beclomethasone dipropionate 80 mcg/actuation HFA breath activated aerosol 1 inh inhalation BID Asthma 03/22/21 [History Last Taken 07/02/21 09:00] budesonide-formoterol HFA 160 mcg-4.5 mcg/actuation aerosol inhaler 2 puff inhalation BID asthma 03/22/21 [History Last Taken 04/29/22] furosemide 40 mg tablet 40 mg PO MOWEFR diuresis 03/22/21 [History Last Taken 04/05/21] ipratropium 0.5 mg-albuterol 3 mg (2.5 mg base)/3 mL nebulization soln 3 ml inhalation BID asthma 03/22/21 [History Last Taken 04/05/21] tizanidine 4 mg capsule 4 mg PO Q8H PRN muscle relaxer 03/22/21 [History Last Taken 04/04/21] cyanocobalamin (vitamin B-12) 100 mcg tablet (Vitamin B-12) 100 mcg PO DAILY supplement 04/05/21 [History Last Taken 04/05/21] melatonin 10 mg tablet 10 mg PO QHS sleep 04/05/21 [History Last Taken 04/04/21] oxycodone-acetaminophen 5 mg-325 mg tablet (Percocet) 1 tab PO Q6H PRN PRN Pain 04/05/21 [History Last Taken 08/10/22] pregabalin 150 mg capsule 150 mg PO TID nerve pain 04/05/21 [History Last Taken 08/11/22] diltiazem HCl 240 mg capsule,extended release 24 hr 240 mg PO DAILY BP 04/06/21 [History Last Taken 07/02/21 09:00] meclizine 25 mg tablet 25 mg PO DAILY PRN Vertigo 05/04/21 [History Last Taken Unknown] warfarin 6 mg tablet 9 mg PO DAILY blood thinner 05/04/21 [History Last Taken 06/09/22] docusate sodium 100 mg capsule 100 mg PO BID stool softener 08/17/21 [History Last Taken Unknown] magnesium 250 mg tablet 250 mg PO DAILY supplement 08/17/21 [History Last Taken Unknown] L.acidophil-L.casei-B.bifid-B.longum-FOS 2 billion cell-50 mg capsule (Probiotic Blend) 1 cap PO DAILY supplement 11/07/21 [History Last Taken Unknown] ascorbate calcium (vitamin C) 500 mg tablet 500 mg PO DAILY vitamin 11/07/21 [History Last Taken Unknown] chromium picolinate 200 mcg tablet 200 mcg PO DAILY supplement 11/07/21 [History Last Taken Unknown] clobetasol 0.05 % topical cream 1 applic topical PRN PRN RASH/ITCHING 11/07/21 [History Last Taken Unknown] coconut oil 1,000 mg capsule 1,000 mg PO DAILY supplement 11/07/21 [History Last Taken Unknown] cyclobenzaprine 5 mg tablet 10 mg PO PRN PRN MUSCLE CRAMPING 11/07/21 [History Last Taken 08/11/22] guaifenesin 400 mg tablet (Mucus Relief) 400 mg PO Q4H PRN PRN Cough 11/07/21 [History Last Taken Unknown] levocetirizine 5 mg tablet 5 mg PO DAILY allergies 11/07/21 [History Last Taken Unknown] polyethylene glycol 3350 17 gram/dose oral powder (Miralax) 17 g PO DAILY PRN PRN Constipation 11/07/21 [History Last Taken Unknown] rizatriptan 10 mg disintegrating tablet (Maxalt-RELIEF MAN) 10 mg PO PRN PRN MIGRAINES 11/07/21 [History Last Taken Unknown] semaglutide 1 mg/dose (2 mg/1.5 mL) subcutaneous pen injector 1 mg subcut TH diabetes 11/07/21 [History Last Taken Unknown] vitamin K2 45 mcg capsule 45 mcg PO DAILY vitamin 11/07/21 [History Last Taken Unknown] zinc amino acid chelate 50 mg tablet 50 mg PO DAILY supplement 11/07/21 [History Last Taken Unknown] insulin glargine U-300 conc 300 unit/mL (1.5 mL) subcutaneous pen ([employer] SoloStar U-300 Insulin) 50 unit subcut BID DIABETES 04/29/22 [History Last Taken 04/28/22 25 MG] dicyclomine 10 mg capsule 10 mg PO BID diarrhea/cramps #60 caps 07/01/22 [Rx Last Taken Unknown] omeprazole 40 mg capsule,delayed release 40 mg PO BID #180 caps 07/01/22 [Rx Last Taken Unknown] sucralfate 1 gram tablet 1 g PO QAC #90 tabs 07/01/22 [Rx Last Taken Unknown] dapagliflozin 10 mg tablet (Farxiga) 10 mg PO DAILY diabetes 08/11/22 [History Last Taken 08/11/22] moexipril 15 mg tablet 15 mg PO DAILY 08/11/22 [History Last Taken Unknown] pitavastatin calcium 4 mg tablet (Livalo) 4 mg PO DAILY cholesterol 08/11/22 [History Last Taken Unknown] hydrocodone-acetaminophen 5-325mg 5mg-325mg 1 tab PO Q4H PRN PRN Pain 2 days #10 TABLETS 11/10/22 [Rx Last Taken Unknown] Allergy/AdvReac Type Severity Reaction Status Date / Time clindamycin Allergy Rash Verified 10/30/22 15:49 erythromycin base Allergy Rash Verified 10/30/22 15:49 [Erythromycin Base] omalizumab [From Xolair] Allergy Chest Verified 10/30/22 15:49 tightness Penicillins Allergy Rash Verified 10/30/22 15:49 sulfamethoxazole Allergy Chest Verified 10/30/22 15:49 [From Bactrim] tightness trimethoprim [From Bactrim] Allergy Chest Verified 10/30/22 15:49 tightness Sulfa (Sulfonamide AdvReac Unknown Unknown Verified 10/30/22 15:49 Antibiotics) Family History Father Heart disease Diabetes CAD (coronary artery disease) Mother CAD (coronary artery disease) CVA (cerebral vascular accident) Diabetes Brother CAD (coronary artery disease) CVA (cerebral vascular accident) Diabetes Unknown Cancer Grandmother CVA (cerebral vascular accident) Diabetes Grandfather CVA (cerebral vascular accident) Grandmother Myocardial infarction Brother Diabetes Sister Diabetes Surgical History Aortic valve replaced H/O lumbosacral spine surgery History of cardiac catheterization History of section History of hernia repair History of left heart catheterization (LHC) (~01/19/21) History of neck surgery History of rotator cuff surgery Hx of appendectomy Social History household members: spouse housing: apartment pets and animals: Yes Smoking Status: Never smoker second hand exposure: No alcohol intake: current alcohol intake frequency: a few times a week substance use type: does not use caffeine: No what type of physical activity do you participate in: none do you feel safe at home: Yes ROS ROS ED Constitutional Constitutional ED: Denies chills or fever(s) Eyes Eyes: Denies change in vision or diplopia ENT ENT ED: Denies ear pain, epistaxis, facial pain or rhinorrhea Cardiovascular Cardiovascular: Denies chest pain or palpitations Respiratory/Chest Respiratory/Chest: Reports dyspnea; Denies cough Gastrointestinal Gastrointestinal: Denies abdominal pain, diarrhea, melena, nausea or vomiting Genitourinary Genitourinary ED: Denies dysuria or hematuria Musculoskeletal Musculoskeletal: Reports back pain; Denies extremity pain or neck pain Integumentary Denies abscess, Abrasions, laceration or rash Neurologic Neurologic: Denies confusion, headache(s), paresthesias or weakness EXAM Physical Exam Const Vital Signs: 11/10/22 15:51 11/10/22 15:55 11/10/22 17:31 Temperature 97.4 F L Temperature Source Temporal Pulse Rate 68 71 Respiratory Rate 16 Blood Pressure 184/67 H 146/61 H Blood Pressure Mean 106 89 Pulse Ox 98 94 Oxygen Delivery Method Room Air Room Air Positive well nourished, well developed and obese General Appearance ED: well developed and NAD Nutritional Appearance: obese HEENT Reports nasal mucous membranes and turbinates normal atraumatic Face and Sinus: Negative for facial tenderness Eyes PERRL and EOMs intact bilaterally Visual Acuity: other Other Details: no entrapment or pain with extraocular movements Neck full ROM and supple General: Negative for tenderness Chest Wall inspection of chest normal and palpation of chest normal Chest: symmetrical chest wall rise; Negative for crepitus or tenderness Resp normal respiratory effort and no retractions Resp Narrative: Equal breath sounds present bilaterally. Auscultation: wheezes expiratory wheezes and throughout Percussion: other equal BS bilat Cardio no murmurs Rate: regular rate; Negative for tachycardic Rhythm: regular rhythm GI normal to inspection, nondistended, normoactive bowel sounds, soft to palpation and non-tender Back/Spine Back/Spine Narrative: No obvious signs of trauma in the patient's back. No [place] sign no [place] sign. Patient has tenderness from about T7 on down throughout the midline until the sacrum. No step-offs. Limited range of motion due to pain. No tenderness above this including the cervical spine. Cervical Spine: Negative for cervical spine tenderness Thoracic Spine / Upper Back: thoracic spinal tenderness Lumbar Spine / Lower Back: lumbar spinal tenderness Extremity normal to inspection and full ROM General Extremety ED: Negative for tenderness Neuro oriented x3, CN's II-XII intact bilaterally, moves all extremities, no focal motor deficits and no sensory deficits noted [place] Coma Scale: document GCS findings Spontaneous Obeys Commands Oriented 15 Sensorium / Orientation: awake and alert Psych mental status grossly normal and thought process normal Skin no wounds Lesions: no lesions Rashes: no rashes MDM MDM MDM Narrative Medical decision making narrative: Stat portable chest x-ray was obtained, it shows no pneumothorax or obvious fractures her other traumatic abnormalities on my evaluation. Given this and the fact that she is anticoagulated and had what sounds like a fairly hard fall, including trauma to her left upper and lower back, I sent her for CT scan to evaluate further for rib injuries, pulmonary injuries, and retroperitoneal injuries. My interpretation of the CT agrees with that of the radiologist. Basically other than an incidental dermoid cyst on the left ovary which we discussed, she has a fractured spur off of T8 and no other acute bony or organ injuries. She has no hematuria to suggest renal injury, and no retroperitoneal injury on the CT. Patient is reassured. She was given analgesics as well as a short prescription, and advised to follow-up, she is neurologically intact and supportive care is only indicated for the minor spur fracture. Lab Data Attestation: I reviewed the patient's lab results. Labs: Laboratory Results - last 24 hr 11/10/22 11/10/22 11/10/22 16:20 16:20 16:45 WBC 8.8 RBC 4.83 Hgb 14.2 Hct 44.2 MCV 91.5 MCH 29.4 MCHC 32.1 RDW Std Deviation 48.6 H RDW Coeff of Carmencita 14.4 Plt Count 246 MPV 11.1 Immature Gran % (Auto) 1.500 H Neut % (Auto) 65.5 Lymph % (Auto) 24.0 Spink % (Auto) 7.2 Eos % (Auto) 1.1 Baso % (Auto) 0.7 Absolute Neuts (auto) 5.7 Absolute Lymphs (auto) 2.10 Nucleated RBC % 0 Sodium 143 Potassium 3.8 Chloride 109 H Carbon Dioxide 27.0 Anion Gap 7 BUN 13 Creatinine 0.44 L Estim Creat Clear Calc 113.01 Est GFR (MDRD) Af Amer 186 Est GFR (MDRD) Non-Af 154 BUN/Creatinine Ratio 29.6 H Glucose 129 H Calcium 8.6 Urine Color Yellow Urine Clarity Clear Urine pH 7.0 Ur Specific [place] 1.010 Urine Protein Negative Urine Glucose (UA) 1000 H Urine Ketones Negative Urine Occult Blood Negative Urine Nitrite Negative Urine Bilirubin Negative Urine Urobilinogen Normal Ur Leukocyte Esterase 25 H Urine RBC 0 SEEN Urine WBC 0 SEEN Ur Squamous Epith Cells 0 SEEN Urine Bacteria 0 SEEN Urine Mucus 0 SEEN Radiography Diagnostic Testing: Clinical Impression(s) from Imaging Studies Chest X-Ray 11/10/22 16:35 IMPRESSION: No radiographic evidence of acute cardiopulmonary disease. Electronically Signed: Jorge Flannery MD at 17:24 EST , Chest/Abdomen/Pelvis CT 11/10/22 16:42 IMPRESSION: Fracture of an anterior osteophyte at the level of T8. No acute pulmonary findings. No acute findings in the abdomen or pelvis. 3.1 cm dermoid cyst left adnexa. Electronically Signed: Jorge Flannery MD at 18:22 EST , Discharge Plan Triage Chief Complaint: Fall ED Provider: Joon Najera Dx/Rx/DC Orders Clinical Impression: Back contusion, Contusion of rib on left side Instructions: ED Bruise, Rib Prescriptions: New hydrocodone-acetaminophen [hydrocodone-acetaminophen] 5-325 mg tablet 1 tab PO Q4H PRN PRN (Reason: Pain) 2 Days Qty: 10 0RF No Action ergocalciferol (vitamin D2) 50,000 unit capsule 50,000 unit PO WE trazodone 50 mg tablet 50 mg PO QHS albuterol sulfate 2.5 mg /3 mL (0.083 %) solution for nebulization 2.5 mg INHALATION Q2H PRN PRN (Reason: dyspnea, wheezing) Qty: 180 6RF albuterol sulfate 90 mcg/actuation HFA aerosol inhaler 2 inh INHALATION Q4H PRN PRN (Reason: Sob &/Or Wheezing) Qty: 18 6RF montelukast 10 mg tablet 10 mg PO DAILY Qty: 30 6RF alendronate 70 mg tablet 70 mg PO WE ondansetron 4 mg tablet,disintegrating 4 mg PO Q8H PRN (Reason: Nausea) nystatin 100,000 unit/gram powder 1 applic TOPICAL BID PRN PRN (Reason: YEAST) warfarin 6 mg tablet 9 mg PO DAILY Rx Instructions: two 4 mg tablets and one 1mg tablet meclizine 25 mg tablet 25 mg PO DAILY PRN (Reason: Vertigo) magnesium 250 mg tablet 250 mg PO DAILY levocetirizine 5 mg tablet 5 mg PO DAILY cyclobenzaprine 5 mg tablet 10 mg PO PRN PRN (Reason: MUSCLE CRAMPING) clobetasol 0.05 % cream 1 applic topical PRN PRN (Reason: RASH/ITCHING) guaifenesin [Mucus Relief] 400 mg tablet 400 mg PO Q4H PRN PRN (Reason: Cough) polyethylene glycol 3350 [Miralax] 17 gram/dose powder 17 g PO DAILY PRN PRN (Reason: Constipation) rizatriptan [Maxalt-RELIEF MAN] 10 mg tablet,disintegrating 10 mg PO PRN PRN (Reason: MIGRAINES) chromium picolinate 200 mcg tablet 200 mcg PO DAILY coconut oil 1,000 mg capsule 1,000 mg PO DAILY Probiotic Blend 2 billion cell-50 mg capsule 1 cap PO DAILY Rx Instructions: give with meal/snack ascorbate calcium (vitamin C) 500 mg tablet 500 mg PO DAILY vitamin K2 45 mcg capsule 45 mcg PO DAILY zinc amino acid chelate 50 mg tablet 50 mg PO DAILY dicyclomine 10 mg capsule 10 mg PO BID Qty: 60 0RF omeprazole 40 mg capsule,delayed release(DR/EC) 40 mg PO BID Qty: 180 0RF sucralfate 1 gram tablet 1 g PO QAC Qty: 90 0RF fluoxetine 20 MG capsule 40 mg PO DAILY Label Comments: Depression/anxiety potassium chloride 10 MEQ tablet 10 meq PO BID Label Comments: Supplement docusate sodium 100 mg capsule 100 mg PO BID Label Comments: Stool softner [id number]-[id number]-[id number]-ffqz-wus-pisa-boron 1 EACH tablet,chewable 1 ea PO DAILY fenofibrate nanocrystallized 145 MG tablet 72.5 mg PO QHS semaglutide 1 mg/dose (2 mg/1.5 mL) pen injector 1 mg subcut TH Rx Instructions: OZEMPIC tizanidine 4 mg Capsule 4 mg PO Q8H PRN (Reason: muscle relaxer) furosemide 40 MG tablet 40 mg PO MOWEFR Label Comments: Diuretic - water pill to remove extra fluid ipratropium-albuterol 0.5 mg-3 mg(2.5 mg base)/3 mL solution for nebulization 3 ml INHALATION BID Rx Instructions: Continue until re-evaluation per pulmonary with possible transition back to home regimen at that time. budesonide-formoterol 160-4.5 mcg/actuation HFA aerosol inhaler 2 puff INHALATION BID beclomethasone dipropionate 80 mcg/actuation HFA aerosol breath activated 1 inh inhalation BID oxycodone-acetaminophen [Percocet] 5-325 mg Tablet 1 tab PO Q6H PRN PRN (Reason: Pain) cyanocobalamin (vitamin B-12) [Vitamin B-12] 100 mcg Tablet 100 mcg PO DAILY pregabalin 150 mg capsule 150 mg PO TID melatonin 10 mg Tablet 10 mg PO QHS diltiazem HCl 240 mg capsule,extended release 24hr 240 mg PO DAILY [employer] SoloStar U-300 Insulin 300 unit/mL (1.5 mL) insulin pen 50 unit SUBCUT BID Label Comments: INJECT 56 UNITSESUBCUTANEOUSLY JUNIOR Rx Instructions: TOUJEO moexipril 15 mg tablet 15 mg PO DAILY Livalo 4 mg tablet 4 mg PO DAILY Farxiga 10 mg tablet 10 mg PO DAILY epinephrine 0.3 mg/0.3 mL auto-injector 0.3 mg IM X1 PRN (Reason: Anaphylaxis) Qty: 1 0RF Primary Care Provider: Ophelia Soria Referrals: Ophelia Soria DO [Primary Care Provider] - 1 Week if not improving Disposition Disposition: Home, Self Care
[2022-11-10] MEDS: Ondansetron 4 MG/2 ML Vial IV (16:22)
[2022-11-10] MEDS: Morphine 4 MG/ML Syringe IV (16:22)
[2022-11-10 16:30] LABS: Absolute Neutrophil Count 5.7 X10^3/uL (2.0-7.7); Basophil# 0.06 X10^3/uL; Basophil% 0.7 % (0-1); Eosinophils% 1.1 % (0-5); Hematocrit 44.2 % (37-47); Hemoglobin 14.2 g/dL (12.0-15.0); Mean Corp Hgb Conc 32.1 g/dL (32-36); Mean Corpuscular Hgb 29.4 pg (27.0-32.0); Mean Corpuscular Volume 91.5 fL (81-99); Mean Platelet Vol. 11.1 fl (6.2-12.0); Monocyte# 0.63 X10^3/uL; Monocyte% 7.2 % (0-10); NRBC Flagged by Analyzer 0 % (0-5); Neutrophil # 5.74 X10^3/uL (2.7-7.7); Neutrophil % 65.5 % (47-70); Platelet Count 246 K/mm3 (150-450); RBC Distribution Width CV 14.4 % (11.6-14.6); RBC Distribution Width SD 48.6 fl (35.1-43.9); Red Blood Count 4.83 M/mm3 (4.2-5.4); White Blood Count 8.8 K/mm3 (4.4-11.0)
--- NOTE | 2022-11-10 16:35 | RAD_ITS ---
INDICATION: Trauma, fall, pain EXAMINATION/TECHNIQUE: X-RAY - portable upright AP chest x-ray COMPARISON: 04/18/2022 FINDINGS: LINES/DEVICES: None. LUNGS: No consolidation, edema or effusion. No pneumothorax. MEDIASTINUM AND CARDIOVASCULAR STRUCTURES: Cardiac silhouette not enlarged. Central airways and mediastinal contour are unremarkable. BONES AND SOFT TISSUES: No acute changes. RAD/Chest 1 View (Portable) IMPRESSION: No radiographic evidence of acute cardiopulmonary disease. Electronically Signed: Jorge Flannery MD at 17:24 EST ,
--- NOTE | 2022-11-10 16:42 | CT_ITS ---
STUDY: CT CHEST, ABDOMEN T PELVIS WITH CONTRAST REASON FOR EXAM: Female, 62 years old. fall, left back pain, sob RADIATION DOSAGE (If Supplied By Facility): CTDIvol = ( 23.13 ) mGy, DLP = ( 2265.04 ) mGycm TECHNIQUE: Transaxial imaging was performed following intravenous administration of 100mL Isovue-370. Individualized dose optimization techniques were used for this CT. COMPARISON: No relevant priors. FINDINGS: CHEST The lungs are normal. No pleural effusion. Cardiac size normal. Aortic valve stent graft. Normal mediastinum. Normal hilar regions. Normal unenhanced pulmonary arteries. Normal aorta arch and descending thoracic aorta. Fracture anterior osteophyte at the level of T8. ABDOMEN Diffuse hepatic steatosis. Liver enlarged to 25 cm. Normal gallbladder and extrahepatic biliary system. Normal spleen. Normal pancreas. Normal bilateral adrenal glands. Small left renal cortical cysts. No hydronephrosis. Normal visualized stomach. Normal small intestine. Normal colon. There is non-visualization of the appendix. Normal abdominal aorta. Normal inferior vena cava. Normal retroperitoneum. Normal abdominal wall. No acute or aggressive osseous abnormality. PELVIS Normal urinary bladder. There is no pelvic fluid. 3.1 cm left adnexal lesion with fat and calcific attenuation. Normal abdominal wall. CT/CT Chest, Abd, Pel w/Contrast IMPRESSION: Fracture of an anterior osteophyte at the level of T8. No acute pulmonary findings. No acute findings in the abdomen or pelvis. 3.1 cm dermoid cyst left adnexa. Electronically Signed: Jorge Flannery MD at 18:22 EST ,
[2022-11-10 16:46] LABS: Anion Gap 7 (5-15); BUN 13 mg/dL (7-18); BUN/Creat Ratio 29.6 RATIO (10-20); Calcium,Total 8.6 mg/dL (8.5-10.1); Chloride 109 mmol/L (98-107); Creatinine, Serum 0.44 mg/dL (0.55-1.02); EST Glomerular Filtration Rate 154 mL/min (>60); Est Glom Filt Rate - Afr Amer 186 mL/min (>60); Estimated Creatinine Clearance 113.01 ml/min; Glucose 129 mg/dL (74-106); Potassium 3.8 mmol/L (3.5-5.1); Sodium Level 143 mmol/L (136-145)
[2022-11-10 16:54] LABS: Bacteria 0 SEEN /hpf (None Seen); Mucous, Urine 0 SEEN /hpf (<or=2+); Red Blood Cells-Urine 0 SEEN /hpf (0-5); Squamous Epithelial Cells - UA 0 SEEN /hpf (5-10); White Blood Cells 0 SEEN /hpf (0-5)
[2022-11-10 17:02] LABS: Color, Urine Yellow (Yellow); Glucose, Dipstick 1000 mg/dl (Normal); Ketone-Dipstick Negative (Negative); Leukocyte Esterase-Dipstick 25 /ul (Negative); Nitrite-Dipstick Negative (Negative); Occult Blood-Urine Negative /ul (Negative); Protein-Dipstick Negative (Negative); Urine Bilirubin Dipstick Negative (Negative); Urine Clarity Clear (Clear); Urine Urobilinogen Normal (Normal)
[2022-11-10 17:31] VITALS: BP 146/61; PULSE 71; RESP 16; O2SAT 94
[2022-11-10 19:27] VITALS: BP 128/55; PULSE 70; RESP 18; O2SAT 93
== END 2022-11-10 19:48 | disposition home or self-care (01) ==
PROVIDERS: Emergency Provider Emergency Medicine; PCP Internal Medicine; Visit Provider Emergency Medicine
DX: S20.229A Contusion of unspecified back wall of thorax, initial encounter (principal); I50.32 Chronic diastolic (congestive) heart failure; S20.212A Contusion of left front wall of thorax, initial encounter; I25.10 Atherosclerotic heart disease of native coronary artery without angina pectoris; G47.33 Obstructive sleep apnea (adult) (pediatric); E66.9 Obesity, unspecified; Z86.16 Personal history of COVID-19; Z86.711 Personal history of pulmonary embolism; Z86.718 Personal history of other venous thrombosis and embolism; Z99.81 Dependence on supplemental oxygen; Z86.73 Personal history of transient ischemic attack (TIA), and cerebral infarction without residual deficits; W10.9XXA Fall (on) (from) unspecified stairs and steps, initial encounter
CPT/HCPCS: 71045; 71260; 74177; 80048; 81001; 85025; 96361; 96374; 96375; 99284; J7030; Q9967; A4216; J2405

== ENCOUNTER → 2022-11-21 | Outpatient (CLI) | payer MEDICARE, MEDICAID, SELFPAY ==
[2021-09-03 12:59] VITALS: BMI 43.4
--- NOTE | 2022-11-21 12:54 | BI_ITS ---
MAMMOGRAPHY - BILATERAL SCREENING REASON FOR EXAM: Female, 62 years old. Routine annual screening examination. PERTINENT HISTORY: Non-contributory. TECHNIQUE: Digital bilateral breast doris (3D mammographic acquisition) in the CC and MLO projections. 2-D mediolateral oblique (MLO) and craniocaudad (CC) views of both breasts were obtained. CAD: Full Field Digital Mammography with Computer Added Detection was performed. COMPARISON: Comparison is made with prior examination dated 11/14/2020 and 05/16/2015. FINDINGS: Breast Composition: The breasts are almost entirely fatty. There are no dominant masses or suspicious calcifications. Stable bilateral secretory calcification. No other significant abnormalities are identified. There has been no significant change since the prior study. BI/SCRN MAMM (CAD)W/DORIS BILAT IMPRESSION: Stable bilateral screening mammogram. Yearly follow-up mammogram recommended. (A) ASSESSMENT CATEGORY: BIRADS Category 2: Benign. A letter regarding these results will be sent to the patient by the facility within 30 days. Approximately 10% of breast cancers are not detected by mammography. A normal mammogram should not delay biopsy of a clinically suspicious abnormality. [id number] Electronically Signed: Lon Fuchs MD at 14:22 EST ,
--- NOTE | 2022-11-21 13:06 | BD_ITS ---
STUDY: DUAL ENERGY X-RAY ABSORPTIOMETRY / DXA REASON FOR EXAM: Female, 62 years old. [id number] TECHNIQUE: Bone Mineral Density (BMD) measurements of lumbar spine and bilateral hips were obtained. COMPARISON: Comparison is made with prior study dated 11/14/2020. FINDINGS: Lumbar Spine (L1-L4): g/cm2 (1.122) / T-score (0.7) / Z-score (2.3) Findings are suggestive of normal bone density with a low fracture risk. Left Femur Total: g/cm2 (0.981) / T-score (0.3) / Z-score (1.4) Left Femoral Neck: g/cm2 (1.009) / T-score (1.4) / Z-score (2.9) Right Femur Total: g/cm2 (0.811) / T-score (-1.1) / Z-score (0.0) Right Femoral Neck: g/cm2 (0.687) / T-score (-1.5) / Z-score (0.0) The T-Scores on the most recent prior examination were: Lumbar Spine (L1-L4): There has been worsening of bone density since the previous examination. Left Femur Total: which represents an improvement of 20.9%. Right Femur Total: which represents an improvement of 6.8%. BD/Dexa Bone Density Study IMPRESSION: The patient is considered osteopenic as outlined below according to World Donnie Organization (WHO) criteria with a low fracture risk. There has been improvement of bone density since the previous examination. Reference Information: The T-score is the number of standard deviations above or below the standard which is normal for young adults at their peak bone mineral density. The World Health Organization (WHO) interprets the T-scores as follows: Above -1 Normal bone density Between -1 and -2.5 Osteopenia Equal to / or below -2.5 Osteoporosis As a practical clinical guideline, osteopenia may be graded as follows: Mild -1 through -1.5 Moderate -1.6 through -2.0 Severe -2.1 through -2.4 The Z-score is the number of standard deviations above or below age-matched controls. A Z-score of less than -1.5 would be considered abnormal. References: 1. NIH Osteoporosis and Related Bone Diseases www osteo.org 2. International Society for Clinical Densitometry www iscd.org 3. National Osteoporosis Foundation www nof.org Electronically Signed: Lon Fuchs MD at 14:58 EST ,
== END | disposition home or self-care (01) ==
PROVIDERS: PCP Internal Medicine; Visit Provider Internal Medicine
DX: Z13.820 Encounter for screening for osteoporosis (principal); Z78.0 Asymptomatic menopausal state; Z12.31 Encounter for screening mammogram for malignant neoplasm of breast
CPT/HCPCS: 77063; 77067; 77080

== ENCOUNTER 2022-12-17 12:10 | Outpatient (RCR) | payer MEDICARE, MEDICAID, SELFPAY ==
[2021-09-03 12:59] VITALS: BMI 43.4
[2022-12-17 13:13] LABS: International Normalized Ratio 1.1; Prothrombin Time (Protime)PT. 13.6 SECONDS (11.7-14.9)
== END 2023-01-10 23:14 | disposition home or self-care (01) ==
LOC: LAB 12:10
PROVIDERS: PCP Internal Medicine; Referring Provider Internal Medicine; Visit Provider Internal Medicine
DX: I82.409 Acute embolism and thrombosis of unspecified deep veins of unspecified lower extremity (principal)
CPT/HCPCS: 36415; 85610

== ENCOUNTER 2023-01-07 15:00 | Outpatient (RCR) | payer MEDICARE, MEDICAID, SELFPAY ==
[2021-09-03 12:59] VITALS: BMI 43.4
--- NOTE | 2022-12-26 10:56 | HP.PTEVAL_ITS ---
Patient's Visit Information NATHALIE HERMAN is a 62 year old F referred to Physical Therapy by Dr. Ophelia Soria DO with a diagnosis of T/S pain. Date of Evaluation: 12/17/22 Physical Therapist: Aly Connor, PT, ATC - Visit Plan Frequency: 2-3x /Week Duration: 4-6 Weeks Plan: core strengthening, postural education, scap stab, balance and proprio, UBE, and HEP - Subjective Pt reports she has had LBP since 11/10/22 secondary to a fall. Pt reports she was descending stairs when she fell and landed on the stairs. Pt reports since then, she has constant pain in the T/s region that extends to the lateral side of her trunk and up the back to her intrascapular region. Pt reports she had x-rays taken which revealed no sig findings. Pt reports no fractures were present. Pt reports she has to sleep in a recliner at this time secondary to pain. Pt reports she may get a couple of hours of sleep at night secondary to pain, but she has a really hard time falling asleep secondary to pain. Pt reports she gets tingling and numbness in L rib cage secondary to her fall. Pt reports she is unable to get dressed, sweep the floors, picking something up off the floor, etc, secondary to pain.8/10 pain while sitting here in the clinic, 10/10 pain at worst. - Pain T/S pain Pain Intensity (Out of 10): 8 Pain Intensity Range: 10 - Objective Neuro: R LE is hyposensitive to light touch. L LE is WNL to light touch. B patellar reflex= 2/3. LE MMT: B LE's are grossly 4-/5 throughout. T/S ROM: moderately to severely limited in all planes. Gait: 140 feet with no AD until asking for a break - Balance/Special Test Scores Oswestry Low Back Score: 30 - Goals Goal 1:: Decrease T/S pain x 50% to aid with sleep Goal Time Frame: 4-6 Weeks Goal 2:: Increase T/S ROM x 1 grade to aid with IADL's Goal Time Frame: 4-6 Weeks Goal 3:: Pt will be able to ambulate greater than 600' to aid with community ambulation Goal Time Frame: 4-6 Weeks Goal 4:: I with HEP Goal Time Frame: 4-6 Weeks - Rehabilitation Potential Physical Therapy Diagnosis: Pt has T/S pain, LE weakness, and difficulty with prolonged ambulation secondary to T/S contusion Rehabilitation Potential: Good - Anticipated Interventions Patient/Client Instruction: Educate patient on: Condition, Plan of Care For the Purpose of:: To improve self management Therapeutic Exercise to Include: Strength training, Endurance training, Balance training, Postural training, Dynamic Lumbar Stabilization, Scapular Strength/Stabilization For the Purpose of:: To decrease pain, To increase ROM, To improve muscle performance and motor function Cryotherapy (ice pack, ice massage): Yes For the Purpose of:: To decrease pain Thank you for the opportunity to evaluate your patient. For Medicare and Medicare HMO plans, please review the plan of care and approve it. It will need to be FAXED BACK to us at [phone] for Medicare purposes. For Medicare only, by signing this I certify the plan of care. Please let me know if there are questions or concerns regarding this plan of car e. Physician Signature: Date:
== END 2023-01-07 19:00 | disposition home or self-care (01) ==
LOC: PT 15:00
PROVIDERS: PCP Internal Medicine; Referring Provider Internal Medicine; Visit Provider Internal Medicine
DX: M54.6 Pain in thoracic spine (principal); M54.50 Low back pain, unspecified; M41.9 Scoliosis, unspecified; M50.30 Other cervical disc degeneration, unspecified cervical region
CPT/HCPCS: 97014; 97110; 97161; G0283

== ENCOUNTER 2023-01-11 12:17 | Emergency (ER) | payer MEDICARE, MEDICAID, SELFPAY ==
[2021-09-03 12:59] VITALS: BMI 43.4
[2023-01-11 12:18] VITALS: BP 177/82; PULSE 86; RESP 18; TEMP 36.6; O2SAT 94; BMI 41.9
--- NOTE | 2023-01-11 13:03 | VDLE_ITS ---
Reason For Study: LEG PAIN RIGHT LEFT CFV is compressible, spontaneous, phasic, CFV is compressible, spontaneous, phasic, competent and demonstrates normal competent, and demonstrates normal augmentation. augmentation. FV is compressible, spontaneous, phasic, competent and demonstrates normal augmentation. POP V is partially compressible with intraluminal echogenicity. Echogenicity appears non-occlusive in color and pulsed wave doppler. T/P Trunk is partially compressible with intraluminal echogenicity. RT Gastrocnemius V is dilated and partially compressible with intraluminal echogenicity. PTV is compressible. RT PerV is compressible. Procedure This is a venous duplex using B-mode, color flow and spectral Doppler. Exam performed portable in ED. The exam was diagnostic. A preliminary report was called and/or faxed to Dr. Rodrigues. VL/Venous Duplex US, Unilateral Interpretation Summary Acute deep venous thrombosis right popliteal and tibial peroneal trunk and avery rocnemius vein with partial compressibility. Patent and compressible right great saphenous vein Normal flow patterns left common femoral vein Ordering Physician: Megha Rodrigues Referring Physician: Ophelia Soria M.D. Performed By: Isiah Alvarado RVT
--- NOTE | 2023-01-11 13:05 | EDS_ITS ---
HPI <ALLI Lima - Last Filed: 01/11/23 16:22> History of Present Illness Chief Complaint: Other, Pain/Inj Narrative Narrative: Patient presenting today with concerns that she has a DVT in her right leg. She states that she has had pain to the posterior aspect of her R calf that is now present behind her right knee since . 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 She is on warfarin but had to hold it for 5 days due to having a spinal injection on Friday. She did resume her warfarin on Friday evening. She began to have pain in the back of her leg on and her PCP told her to increase her warfarin dosage for a few days. On Friday her INR was 3.6. Today, her INR was 3.3. She denies any shortness of breath or chest pain. 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 Back pain Back pain with sciatica Bilateral carotid bruits BiPAP (biphasic positive airway pressure) dependence Body mass index 45.0-49.9, adult Cardiology follow-up encounter Carotid artery disease COPD (chronic obstructive pulmonary disease) COVID-19 Depression Diabetes Diastolic heart failure Discoloration of skin Easy bruising Essential hypertension Excessive bleeding High cholesterol History of DVT (deep vein thrombosis) History of echocardiogram History of edema History of pain when walking History of pulmonary embolism History of steroid therapy History of stress test History of transcatheter aortic valve replacement (TAVR) (~04/19/21) Hx of transesophageal echocardiography (YOLANDA) for monitoring Insulin dependent diabetes mellitus Leg cramps Migraine headache Morbid obesity Non-smoker Nonrheumatic aortic (valve) stenosis On home oxygen therapy CHELSEY treated with BiPAP Personal history of anaphylaxis Positive FIT (fecal immunochemical test) Pulmonary embolism Restless legs Rotator cuff arthropathy of right shoulder Shortness of breath on exertion TIA (transient ischemic attack) Type 2 diabetes mellitus Home Medications fluoxetine 20 mg capsule 40 mg PO DAILY anxiety 01/26/14 [History Last Taken 04/05/21] potassium chloride 10 mEq tablet,extended release(part/cryst) 10 meq PO BID Potassium Chloride 01/06/16 [History Last Taken 08/11/22] Ca 600 mg-D3 800 unit-magnes 40 va-uqjh-vpl-angel-boron chewable tablet 1 ea PO DAILY vitamins 05/27/16 [History Last Taken 04/05/21] fenofibrate nanocrystallized 145 mg tablet 72.5 mg PO QHS cholesterol 04/26/19 [History Last Taken 04/04/21] ergocalciferol (vitamin D2) 1,250 mcg (50,000 unit) capsule 50,000 unit PO WE supplement 08/09/19 [History Last Taken 04/04/21] trazodone 50 mg tablet 50 mg PO QHS sleep 08/09/19 [History Last Taken 04/04/21] epinephrine 0.3 mg/0.3 mL injection, auto-injector 0.3 mg (0.3 mL) IM X1 PRN Anaphylaxis #1 ea 01/18/20 [Rx Last Taken Unknown] albuterol sulfate 2.5 mg/3 mL (0.083 %) solution for nebulization 2.5 mg (3 mL) inhalation Q2H PRN PRN dyspnea, wheezing #180 mL 04/24/20 [Rx Last Taken 07/02/21 09:00] albuterol sulfate 90 mcg/actuation aerosol inhaler 2 inh inhalation Q4H PRN PRN Sob &/Or Wheezing #18 grams 04/24/20 [Rx Last Taken 04/29/22] montelukast 10 mg tablet 10 mg PO DAILY allergies/asthma #30 tabs 12/07/20 [Rx Last Taken 04/05/21] alendronate 70 mg tablet 70 mg PO WE bone health 12/21/20 [History Last Taken 08/07/22] nystatin 100,000 unit/gram topical powder 1 applic topical BID PRN PRN YEAST 12/21/20 [History Last Taken 04/05/21] ondansetron 4 mg disintegrating tablet 4 mg PO Q8H PRN Nausea 12/21/20 [History Last Taken Unknown] beclomethasone dipropionate 80 mcg/actuation HFA breath activated aerosol 1 inh inhalation BID Asthma 03/22/21 [History Last Taken 07/02/21 09:00] budesonide-formoterol HFA 160 mcg-4.5 mcg/actuation aerosol inhaler 2 puff inhalation BID asthma 03/22/21 [History Last Taken 04/29/22] furosemide 40 mg tablet 40 mg PO MOWEFR diuresis 03/22/21 [History Last Taken 04/05/21] ipratropium 0.5 mg-albuterol 3 mg (2.5 mg base)/3 mL nebulization soln 3 ml inhalation BID asthma 03/22/21 [History Last Taken 04/05/21] tizanidine 4 mg capsule 4 mg PO Q8H PRN muscle relaxer 03/22/21 [History Last Taken 04/04/21] cyanocobalamin (vitamin B-12) 100 mcg tablet (Vitamin B-12) 100 mcg PO DAILY supplement 04/05/21 [History Last Taken 04/05/21] melatonin 10 mg tablet 10 mg PO QHS sleep 04/05/21 [History Last Taken 04/04/21] oxycodone-acetaminophen 5 mg-325 mg tablet (Percocet) 1 tab PO Q6H PRN PRN Pain 04/05/21 [History Last Taken 08/10/22] pregabalin 150 mg capsule 150 mg PO TID nerve pain 04/05/21 [History Last Taken 08/11/22] diltiazem HCl 240 mg capsule,extended release 24 hr 240 mg PO DAILY BP 04/06/21 [History Last Taken 07/02/21 09:00] meclizine 25 mg tablet 25 mg PO DAILY PRN Vertigo 05/04/21 [History Last Taken Unknown] warfarin 6 mg tablet 9 mg PO DAILY blood thinner 05/04/21 [History Last Taken 06/09/22] docusate sodium 100 mg capsule 100 mg PO BID stool softener 08/17/21 [History Last Taken Unknown] magnesium 250 mg tablet 250 mg PO DAILY supplement 08/17/21 [History Last Taken Unknown] L.acidophil-L.casei-B.bifid-B.longum-FOS 2 billion cell-50 mg capsule (Probiotic Blend) 1 cap PO DAILY supplement 11/07/21 [History Last Taken Unknown] ascorbate calcium (vitamin C) 500 mg tablet 500 mg PO DAILY vitamin 11/07/21 [History Last Taken Unknown] chromium picolinate 200 mcg tablet 200 mcg PO DAILY supplement 11/07/21 [History Last Taken Unknown] clobetasol 0.05 % topical cream 1 applic topical PRN PRN RASH/ITCHING 11/07/21 [History Last Taken Unknown] coconut oil 1,000 mg capsule 1,000 mg PO DAILY supplement 11/07/21 [History Last Taken Unknown] cyclobenzaprine 5 mg tablet 10 mg PO PRN PRN MUSCLE CRAMPING 11/07/21 [History Last Taken 08/11/22] guaifenesin 400 mg tablet (Mucus Relief) 400 mg PO Q4H PRN PRN Cough 11/07/21 [History Last Taken Unknown] levocetirizine 5 mg tablet 5 mg PO DAILY allergies 11/07/21 [History Last Taken Unknown] polyethylene glycol 3350 17 gram/dose oral powder (Miralax) 17 g PO DAILY PRN PRN Constipation 11/07/21 [History Last Taken Unknown] rizatriptan 10 mg disintegrating tablet (Maxalt-TELEPHONE RECORDER) 10 mg PO PRN PRN MIGRAINES 11/07/21 [History Last Taken Unknown] semaglutide 1 mg/dose (2 mg/1.5 mL) subcutaneous pen injector 1 mg subcut TH diabetes 11/07/21 [History Last Taken Unknown] vitamin K2 45 mcg capsule 45 mcg PO DAILY vitamin 11/07/21 [History Last Taken Unknown] zinc amino acid chelate 50 mg tablet 50 mg PO DAILY supplement 11/07/21 [History Last Taken Unknown] insulin glargine U-300 conc 300 unit/mL (1.5 mL) subcutaneous pen ([employer] SoloStar U-300 Insulin) 50 unit subcut BID DIABETES 04/29/22 [History Last Taken 04/28/22 25 MG] dicyclomine 10 mg capsule 10 mg PO BID diarrhea/cramps #60 caps 07/01/22 [Rx Last Taken Unknown] omeprazole 40 mg capsule,delayed release 40 mg PO BID #180 caps 07/01/22 [Rx Last Taken Unknown] sucralfate 1 gram tablet 1 g PO QAC #90 tabs 07/01/22 [Rx Last Taken Unknown] dapagliflozin 10 mg tablet (Farxiga) 10 mg PO DAILY diabetes 08/11/22 [History Last Taken 08/11/22] moexipril 15 mg tablet 15 mg PO DAILY 08/11/22 [History Last Taken Unknown] pitavastatin calcium 4 mg tablet (Livalo) 4 mg PO DAILY cholesterol 08/11/22 [History Last Taken Unknown] hydrocodone-acetaminophen 5-325mg 5mg-325mg 1 tab PO Q4H PRN PRN Pain 2 days #10 TABLETS 11/10/22 [Rx Last Taken Unknown] Allergy/AdvReac Type Severity Reaction Status Date / Time clindamycin Allergy Rash Verified 01/11/23 12:20 erythromycin base Allergy Rash Verified 01/11/23 12:20 [Erythromycin Base] omalizumab [From Xolair] Allergy Chest Verified 01/11/23 12:20 tightness Penicillins Allergy Rash Verified 01/11/23 12:20 sulfamethoxazole Allergy Chest Verified 01/11/23 12:20 [From Bactrim] tightness trimethoprim [From Bactrim] Allergy Chest Verified 01/11/23 12:20 tightness Sulfa (Sulfonamide AdvReac Unknown Unknown Verified 01/11/23 12:20 Antibiotics) Family History Father Heart disease Diabetes CAD (coronary artery disease) Mother CAD (coronary artery disease) CVA (cerebral vascular accident) Diabetes Brother CAD (coronary artery disease) CVA (cerebral vascular accident) Diabetes Unknown Cancer Grandmother CVA (cerebral vascular accident) Diabetes Grandfather CVA (cerebral vascular accident) Grandmother Myocardial infarction Brother Diabetes Sister Diabetes Surgical History Aortic valve replaced H/O lumbosacral spine surgery History of cardiac catheterization History of section History of hernia repair History of left heart catheterization (LHC) (~01/19/21) History of neck surgery History of rotator cuff surgery Hx of appendectomy Social History household members: spouse housing: apartment pets and animals: Yes Smoking Status: Never smoker second hand exposure: No alcohol intake: current alcohol intake frequency: a few times a week substance use type: does not use caffeine: No what type of physical activity do you participate in: none do you feel safe at home: Yes ROS <ALLI Lima - Last Filed: 01/11/23 16:22> ROS ED Constitutional Constitutional ED: Denies chills, fever(s) or sweats Cardiovascular Cardiovascular: Denies chest pain or palpitations Respiratory/Chest Respiratory/Chest: Denies cough or dyspnea Gastrointestinal Gastrointestinal: Denies abdominal pain, nausea or vomiting Musculoskeletal Musculoskeletal: Reports arthralgias and myalgias Integumentary Denies abscess, Abrasions or rash Neurologic Neurologic: Denies paresthesias or weakness Psychiatric Psychiatric: Denies anxiety, depression, suicidal ideation or suicidal thoughts EXAM <ALLI Lima - Last Filed: 01/11/23 16:22> Physical Exam Const Vital Signs: 01/11/23 12:18 Temperature 97.8 F Temperature Source Temporal Pulse Rate 86 Respiratory Rate 18 Blood Pressure 177/82 H Blood Pressure Mean 113 Pulse Ox 94 Oxygen Delivery Method Room Air Positive well nourished, well developed and no apparent distress General Appearance ED: well developed HEENT Reports normocephalic and head/scalp atraumatic Mouth ED: Yes moist mucous membranes normal Eyes PERRL and EOMs intact bilaterally Neck full ROM and supple Chest Wall inspection of chest normal Resp normal respiratory effort and clear to auscultation bilaterally Cardio regular rate and regular rhythm GI soft to palpation, non-tender, non-distended and no masses Back/Spine normal ROM and normal to inspection Extremity normal to inspection and full ROM Extremity Narrative: Pain to palpation to the posterior aspect of her calf as well as to her right knee. Neuro oriented x3, CN's II-XII intact bilaterally, moves all extremities, no focal motor deficits and no sensory deficits noted Sensorium / Orientation: awake and alert Psych mental status grossly normal and thought process normal Skin no rashes or lesions noted and no wounds <Dr. Megha Rodrigues, - Last Filed: 01/11/23 15:48> Physical Exam Const Vital Signs: 01/11/23 12:18 Temperature 97.8 F Temperature Source Temporal Pulse Rate 86 Respiratory Rate 18 Blood Pressure 177/82 H Blood Pressure Mean 113 Pulse Ox 94 Oxygen Delivery Method Room Air MDM <ALLI Lima - Last Filed: 01/11/23 16:22> [facility] Narrative Medical decision making narrative: Patient presenting today with concern she has a DVT in her right leg. She has a history of 2 prior DVTs in this leg and has had a PE. She is on warfarin but did have to hold her dose for 5 days due to a spinal injection on Friday. She resumed her warfarin dose Friday but began having symptoms in her right leg on . Ultrasound obtained to rule out DVT and does show gastroc vein dilation and partially compressible with intraluminal echogenicity. Attending ED physician has spoke to Dr. Ayon who recommended a repeat ultrasound in 7 to 10 days and to continue her dose of Coumadin. She has been given return instructions. She will be discharged home in stable condition. She is comfortable with plan. I have personally performed a face to face assessment of the patient and have reviewed the VINCENT Note. I performed a substantive portion of the visit including all aspects of the following. My saucedo findings include: History is [patient presents to the emergency department with complaint of pain in the right calf that she has had for few days. Patient has history of DVT and history of PE. She is on Coumadin. Patient states that she had her Coumadin held for about 5 days to have a spinal injection for some chronic pain issues. She subsequently started her Coumadin back up. She checked her INR this morning and it was 3.5. She denies any other injury to the right lower extremity. Patient states in the past when she has discontinued her Coumadin she has had recurrent DVTs.] Exam is [HEENT-PERRLA, EOMI. Cranial nerves II through XII grossly intact. TMs clear. Mucous membranes moist. No adenopathy. Cardiovascular-regular rate and rhythm without murmur or ectopy Lungs-clear to auscultation, chest wall stable without crepitus or subcu emphysema Abdomen-normoactive bowel sounds, soft, nontender, no rebound or rigidity, no peritoneal signs. Extremities-intact ?4. Right leg-patient does have some tenderness diffusely about the right calf with some soft tissue swelling which is asymmetric compared to the left. She has normal pulses. Normal cap refill. No ropes or cords palpated.] Medical Decison Making [patient had a ultrasound of the right lower extremity that was noted to have right gastroc vein dilated and partially compressible with intraluminal echogenicity. Patient also had TP trunk partially compressible with intraluminal echogenicity. I discussed with vascular surgeon on-call Dr. Ayon who recommended repeat ultrasound in 7 to 10 days and patient to continue on her Coumadin. She is advised to return if worsening pain, increased swelling, redness, pallor to the extremity, or condition should worsen anyway.] Other additions or changes: [None] <Dr. Megha Rodrigues, DO - Last Filed: 01/11/23 15:48> [facility] Narrative Medical decision making narrative: I have personally performed a face to face assessment of the patient and have reviewed the VINCENT Note. I performed a substantive portion of the visit including all aspects of the following. My saucedo findings include: History is [patient presents to the emergency department with complaint of pain in the right calf that she has had for few days. Patient has history of DVT and history of PE. She is on Coumadin. Patient states that she had her Coumadin held for about 5 days to have a spinal injection for some chronic pain issues. She subsequently started her Coumadin back up. She checked her INR this morning and it was 3.5. She denies any other injury to the right lower extremity. Patient states in the past when she has discontinued her Coumadin she has had recurrent DVTs.] Exam is [HEENT-PERRLA, EOMI. Cranial nerves II through XII grossly intact. TMs clear. Mucous membranes moist. No adenopathy. Cardiovascular-regular rate and rhythm without murmur or ectopy Lungs-clear to auscultation, chest wall stable without crepitus or subcu emphysema Abdomen-normoactive bowel sounds, soft, nontender, no rebound or rigidity, no peritoneal signs. Extremities-intact ?4. Right leg-patient does have some tenderness diffusely about the right calf with some soft tissue swelling which is asymmetric compared to the left. She has normal pulses. Normal cap refill. No ropes or cords palpated.] Medical Decison Making [patient had a ultrasound of the right lower extremity that was noted to have right gastroc vein dilated and partially compressible with intraluminal echogenicity. Patient also had TP trunk partially compressible with intraluminal echogenicity. I discussed with vascular surgeon on-call Dr. Ayon who recommended repeat ultrasound in 7 to 10 days and patient to continue on her Coumadin. She is advised to return if worsening pain, increased swelling, redness, pallor to the extremity, or condition should worsen anyway.] Other additions or changes: [None] Discharge Plan Triage Chief Complaint: Other, Pain/Inj ED Midlevel Provider: Priscilla Rivas ED Provider: Megha Rodrigues Dx/Rx/DC Orders Clinical Impression: DVT (deep venous thrombosis) Instructions: DVT Dc Prescriptions: No Action ergocalciferol (vitamin D2) 50,000 unit capsule 50,000 unit PO WE trazodone 50 mg tablet 50 mg PO QHS albuterol sulfate 2.5 mg /3 mL (0.083 %) solution for nebulization 2.5 mg INHALATION Q2H PRN PRN (Reason: dyspnea, wheezing) Qty: 180 6RF albuterol sulfate 90 mcg/actuation HFA aerosol inhaler 2 inh INHALATION Q4H PRN PRN (Reason: Sob &/Or Wheezing) Qty: 18 6RF montelukast 10 mg tablet 10 mg PO DAILY Qty: 30 6RF alendronate 70 mg tablet 70 mg PO WE ondansetron 4 mg tablet,disintegrating 4 mg PO Q8H PRN (Reason: Nausea) nystatin 100,000 unit/gram powder 1 applic TOPICAL BID PRN PRN (Reason: YEAST) warfarin 6 mg tablet 9 mg PO DAILY Rx Instructions: two 4 mg tablets and one 1mg tablet meclizine 25 mg tablet 25 mg PO DAILY PRN (Reason: Vertigo) magnesium 250 mg tablet 250 mg PO DAILY levocetirizine 5 mg tablet 5 mg PO DAILY cyclobenzaprine 5 mg tablet 10 mg PO PRN PRN (Reason: MUSCLE CRAMPING) clobetasol 0.05 % cream 1 applic topical PRN PRN (Reason: RASH/ITCHING) guaifenesin [Mucus Relief] 400 mg tablet 400 mg PO Q4H PRN PRN (Reason: Cough) polyethylene glycol 3350 [Miralax] 17 gram/dose powder 17 g PO DAILY PRN PRN (Reason: Constipation) rizatriptan [Maxalt-TELEPHONE RECORDER] 10 mg tablet,disintegrating 10 mg PO PRN PRN (Reason: MIGRAINES) chromium picolinate 200 mcg tablet 200 mcg PO DAILY coconut oil 1,000 mg capsule 1,000 mg PO DAILY Probiotic Blend 2 billion cell-50 mg capsule 1 cap PO DAILY Rx Instructions: give with meal/snack ascorbate calcium (vitamin C) 500 mg tablet 500 mg PO DAILY vitamin K2 45 mcg capsule 45 mcg PO DAILY zinc amino acid chelate 50 mg tablet 50 mg PO DAILY dicyclomine 10 mg capsule 10 mg PO BID Qty: 60 0RF omeprazole 40 mg capsule,delayed release(DR/EC) 40 mg PO BID Qty: 180 0RF sucralfate 1 gram tablet 1 g PO QAC Qty: 90 0RF fluoxetine 20 MG capsule 40 mg PO DAILY Label Comments: Depression/anxiety potassium chloride 10 MEQ tablet 10 meq PO BID Label Comments: Supplement docusate sodium 100 mg capsule 100 mg PO BID Label Comments: Stool softner [id number]-drwk-dsz-xjtn-boron 1 EACH tablet,chewable 1 ea PO DAILY fenofibrate nanocrystallized 145 MG tablet 72.5 mg PO QHS semaglutide 1 mg/dose (2 mg/1.5 mL) pen injector 1 mg subcut TH Rx Instructions: OZEMPIC tizanidine 4 mg Capsule 4 mg PO Q8H PRN (Reason: muscle relaxer) furosemide 40 MG tablet 40 mg PO MOWEFR Label Comments: Diuretic - water pill to remove extra fluid ipratropium-albuterol 0.5 mg-3 mg(2.5 mg base)/3 mL solution for nebulization 3 ml INHALATION BID Rx Instructions: Continue until re-evaluation per pulmonary with possible transition back to home regimen at that time. budesonide-formoterol 160-4.5 mcg/actuation HFA aerosol inhaler 2 puff INHALATION BID beclomethasone dipropionate 80 mcg/actuation HFA aerosol breath activated 1 inh inhalation BID oxycodone-acetaminophen [Percocet] 5-325 mg Tablet 1 tab PO Q6H PRN PRN (Reason: Pain) cyanocobalamin (vitamin B-12) [Vitamin B-12] 100 mcg Tablet 100 mcg PO DAILY pregabalin 150 mg capsule 150 mg PO TID melatonin 10 mg Tablet 10 mg PO QHS diltiazem HCl 240 mg capsule,extended release 24hr 240 mg PO DAILY [employer] SoloStar U-300 Insulin 300 unit/mL (1.5 mL) insulin pen 50 unit SUBCUT BID Label Comments: INJECT 56 UNITSESUBCUTANEOUSLY JUNIOR Rx Instructions: TOUJEO moexipril 15 mg tablet 15 mg PO DAILY Livalo 4 mg tablet 4 mg PO DAILY Farxiga 10 mg tablet 10 mg PO DAILY hydrocodone-acetaminophen [hydrocodone-acetaminophen] 5-325 mg tablet 1 tab PO Q4H PRN PRN (Reason: Pain) 2 Days Qty: 10 0RF epinephrine 0.3 mg/0.3 mL auto-injector 0.3 mg IM X1 PRN (Reason: Anaphylaxis) Qty: 1 0RF Primary Care Provider: Ophelia Soria Referrals: Ophelia Soria DO [Primary Care Provider] - 3-5 Days Activity Restrictions/Additional Instructions: Please follow-up with your PCP to have an ultrasound scheduled in 1 week. Disposition Disposition: Home, Self Care Discharge Date/Time: 01/11/23 15:55
== END 2023-01-11 15:55 | disposition home or self-care (01) ==
PROVIDERS: Emergency Provider Emergency Medicine; PCP Internal Medicine; Visit Provider Emergency Medicine
DX: I82.4Z1 Acute embolism and thrombosis of unspecified deep veins of right distal lower extremity (principal); I50.32 Chronic diastolic (congestive) heart failure; I25.10 Atherosclerotic heart disease of native coronary artery without angina pectoris; G47.33 Obstructive sleep apnea (adult) (pediatric); Z86.16 Personal history of COVID-19; Z86.718 Personal history of other venous thrombosis and embolism; Z86.711 Personal history of pulmonary embolism; Z86.73 Personal history of transient ischemic attack (TIA), and cerebral infarction without residual deficits; Z99.81 Dependence on supplemental oxygen; Z79.01 Long term (current) use of anticoagulants
CPT/HCPCS: 93971; 99282

== ENCOUNTER → 2023-01-17 | Outpatient (CLI) | payer MEDICARE, MEDICAID, SELFPAY ==
[2021-09-03 12:59] VITALS: BMI 43.4
--- NOTE | 2023-01-17 17:56 | MRI_ITS ---
STUDY: MRI THORACIC SPINE WITHOUT CONTRAST REASON FOR EXAM: Female, 62 years old. RADICULOPATHY, THORACIC REGION -- S/P FALL R/O FRACTURE T8-10 TECHNIQUE: Standardized fat and water weighted pulse sequences were obtained in the sagittal and axial planes. COMPARISON: MRI thoracic spine without contrast 08/10/2015. CT chest 05/02/2021. CT chest 11/10/2022. Thoracic spine radiographs 11/12/2022. FINDINGS: Normal kyphosis of the thoracic spine. There is no substantial scoliosis. T1-2, T2-3, T3-4, T4-5, T5-6, T6-7, T7-8, T8-9, T9-10, T10-11, T11-12: More obvious fracture line across the T8 vertebral body with mild loss of the central vertebral body height, previously limited to fracture of the ossified anterior longitudinal ligament. There is sparing of the pedicles and posterior elements. No other acute or subacute fractures of the thoracic spine. Minimal anterior wedging of the T9, T10 and T11 vertebral bodies are presumably from remote injury and unchanged when compared to 08/10/2015. Minimal anterior wedging of L1 superior endplate is also from remote injury. Normal remaining vertebral body heights. No thoracic extruded disc fragment or disc protrusion. Normal central canal and bilateral intervertebral neural foramina. Normal visualized thoracic cord. Normal conus medullaris that terminates at the T12-L1 disc space level. The soft tissue structures are unremarkable. MRI/Spine Thoracic (Routine) IMPRESSION: 1. Previous fracture of the ossified anterior longitudinal ligament at the mid T8 vertebral body level now extends posteriorly and across the T8 vertebral body with mild loss of the central vertebral body height. The presence of residual vertebral marrow edema suggests subacute fracture and possibly related to recent fall injury. CT will help better delineate the fracture lines if desired. If patient has debilitating back pain referrable to this site, this is feasible for kyphoplasty. 2. No other acute or subacute fractures of the thoracic spine.] 3. No MRI evidence of thoracic extruded disc fragment, disc protrusion or spinal stenosis. 4. Normal thoracic spinal cord. Electronically Signed: Everardo Reza MD at 9:39 EDT ,
== END | disposition home or self-care (01) ==
LOC: MRI 17:10
PROVIDERS: PCP Internal Medicine; Referring Provider Anesthesiology Pain Medicine; Visit Provider Anesthesiology Pain Medicine
DX: M54.14 Radiculopathy, thoracic region (principal); W19.XXXA Unspecified fall, initial encounter
CPT/HCPCS: 72146

== ENCOUNTER → 2023-01-20 | Outpatient (CLI) | payer MEDICARE, MEDICAID, SELFPAY ==
[2021-09-03 12:59] VITALS: BMI 43.4
--- NOTE | 2023-01-20 11:04 | VDLE_ITS ---
Reason For Study: Pain RIGHT LEFT GSV is normal. CFV is compressible, spontaneous, phasic, CFV is compressible, spontaneous, phasic, competent, and demonstrates normal competent and demonstrates normal augmentation. augmentation. FV is compressible, spontaneous, phasic, competent and demonstrates normal augmentation. T/P Trunk is compressible. PTV is compressible. RT PerV is compressible. PopV is compressible with brightintraluminal echoes consistent with Chronic DVT. Right GastrocV is NONCOMPRESSIBLE, minimal venous flow noted. Procedure This is a venous duplex using B-mode, color flow and spectral Doppler. Exam performed in department. Compared to 01/11/2023. A preliminary report was called and/or faxed to Dr. Soria. VL/Venous Duplex US, Unilateral Interpretation Summary Chronic deep venous thrombosis right popliteal vein Acute deep venous thrombosis right gastrocnemius vein Slight improvement from the previous examination of January 11, 2023 Normal flow patterns left common femoral vein Ordering Physician: Ophelia Soria Referring Physician: Ophelia Soria Performed By: Livier Espinoza RVT
== END | disposition home or self-care (01) ==
LOC: CVS 11:02
PROVIDERS: PCP Internal Medicine; Referring Provider Internal Medicine; Visit Provider Internal Medicine
DX: I82.461 Acute embolism and thrombosis of right calf muscular vein (principal); I82.531 Chronic embolism and thrombosis of right popliteal vein
CPT/HCPCS: 93971

== ENCOUNTER 2023-02-11 12:38 | Outpatient (RCR) | payer MEDICARE, MEDICAID, SELFPAY ==
[2021-09-03 12:59] VITALS: BMI 43.4
[2023-02-11 13:08] LABS: International Normalized Ratio 1.2
== END 2023-02-11 14:00 | disposition home or self-care (01) ==
LOC: LAB 12:38
PROVIDERS: PCP Internal Medicine; Referring Provider Internal Medicine; Visit Provider Internal Medicine
DX: I82.409 Acute embolism and thrombosis of unspecified deep veins of unspecified lower extremity (principal)
CPT/HCPCS: 36415; 85610

== ENCOUNTER 2023-03-13 11:04 | Outpatient (RCR) | payer MEDICARE, MEDICAID, SELFPAY ==
[2021-09-03 12:59] VITALS: BMI 43.4
[2023-03-13 11:37] LABS: International Normalized Ratio 1.3; Prothrombin Time (Protime)PT. 15.8 SECONDS (11.7-14.9)
== END 2023-03-13 18:00 | disposition home or self-care (01) ==
LOC: LAB 11:04
PROVIDERS: PCP Internal Medicine; Referring Provider Internal Medicine; Visit Provider Internal Medicine
DX: I82.409 Acute embolism and thrombosis of unspecified deep veins of unspecified lower extremity (principal)
CPT/HCPCS: 36415; 85610

== ENCOUNTER → 2023-03-17 | Outpatient (CLI) | payer MEDICARE, MEDICAID, SELFPAY ==
[2021-09-03 12:59] VITALS: BMI 43.4
--- NOTE | 2023-03-14 | IMM_PTH ---
PATIENT: NATHALIE HERMAN LOC: [facility] U#:[id number] AGE/SX: 62/F ROOM: RE03/17/[address]: Dr. Joseph Casas MD : 1960 BED: DIS: 03/17/2023 SPEC #: [id number] RECD: 03/18/23 12:52 STATUS: KAMINI REQ #: [id number] LINN: 03/14/23 00:[address]: Joseph Casas DEPT: IMMUNOHISTOCHEMISTRY RECD BY: Kala Peña ENTERED: 03/18/23 12:53 SP TYPE: IMMUNO OTHR DR: Dr. Ophelia Soria, Tissues: Vertebra, NOS Procedures: CK8 (add) Pankeratin (initial) PHYSICIAN & INSTITUTION [place] [id number] SPECIMEN INFORMATION: Tissue Source: Vertebral body T8 Clinical Info: Pathological fracture T8 Specimen Number: [id number] CPT code: 50590, 64649 METHODOLOGY: Deparaffinized sections of prefer/formalin-fixed tissue or PAP/DQ stained slides are incubated with monoclonal/polyclonal antibodies/oligonucleotide probes. Localization is made via biotin free immunoperoxidase method. Appropriate controls are performed and reacted as expected. Results on target cell population are indicated in the following table: RESULTS: ANTIBODY / CLONE RESULT AE1-3 (AE1/AE3/PCK26) negative CK8 ([id number]) negative These tests were developed and their performance characteristics determined by [facility]. They may not have been cleared or approved by the U.S. Food and Drug Administration. The FDA has determined that such clearance or approval is not necessary. The above immunohistochemical/dualISH markers are ordered and reviewed by the Pathologist. INTERPRETATION: Vertebral body T8, bone biopsy: Negative for malignancy. GATITO:alexandru 03/19/2023
--- NOTE | 2023-03-14 | BONBX_PTH ---
PATIENT: NATHALIE HERMAN LOC: [facility] U#:[id number] AGE/SX: 62/F ROOM: RE03/17/[address]: Dr. Joseph Casas MD : 1960 BED: DIS: 03/17/2023 SPEC #: [id number] RECD: 03/17/23 10:17 STATUS: KAMINI RELeslee #: [id number] LINN: 03/14/23 00:[address]: Joseph Casas DEPT: SURGICAL PATHOLOGY RECD BY: Ivet Sheridan ENTERED: 03/17/23 13:36 SP TYPE: Bone OTHR DR: Dr. Ophelia Soria, DO Tissues: Vertebra, NOS Procedures: Decalcification bone/plaque Surgery Specimen Level V HEADER OPERATION: Kyphoplasty T8 PRE-OP DIAGNOSIS: Pathological fracture T8 TISSUE SUBMITTED: Vertebral body T8 MICROSCOPIC DIAGNOSIS Vertebral body T8, biopsy: Fragments of bone and blood clots, negative for malignancy. See comment. SJ:alexandru 03/18/2023 COMMENT Hematopoietic marrow with trilineage hematopoiesis is noted. Immunohistochemistry ([id number]) supports the above diagnosis. Correlation with clinical, radiologic findings and appropriate follow up are necessary. MICROSCOPIC DESCRIPTION Slides are reviewed. GROSS DESCRIPTION Received in fixative is one container labeled with the patient's name and designated vertebral body T8. The specimen consists of a piece of bone with blood clots measuring 0.6 x 0.4 x 0.2 cm. The entire specimen is submitted in one cassette after decalcification. / GATITO:alexandru 03/17/2023 TC:5 CPT: 61248, 41625
== END | disposition home or self-care (01) ==
LOC: LABSPEC 10:44
PROVIDERS: PCP Internal Medicine; Referring Provider Anesthesiology Pain Medicine; Visit Provider Anesthesiology Pain Medicine
DX: M84.48XA Pathological fracture, other site, initial encounter for fracture (principal)
CPT/HCPCS: 88307; 88311; 88341; 88342

== ENCOUNTER 2023-04-01 15:38 | Emergency (ER) | payer MEDICARE, MEDICAID, SELFPAY ==
[2021-09-03 12:59] VITALS: BMI 43.4
[2023-04-01 15:39] VITALS: BP 159/136; PULSE 76; RESP 18; TEMP 36.6; O2SAT 96; BMI 40.0
--- NOTE | 2023-04-01 15:50 | VDLE_ITS ---
Reason For Study: Right leg swelling RIGHT GSV is normal. CFV is compressible, spontaneous, phasic, competent and demonstrates normal augmentation. FV is compressible, spontaneous, phasic, competent and demonstrates normal augmentation. T/P Trunk is compressible. PTV is compressible. RT PerV is compressible. PopV is compressible with bright intraluminal echoes consistent with Chronic DVT. Right GastrocV is compressible with bright intraluminal echoes consistent with Chronic DVT. Nonvascularized structure noted in the right popliteal fossa that measures 1.22 x 2.71 x 3.87 cm. Procedure This is a venous duplex using B-mode, color flow and spectral Doppler. Exam performed portable in ED. A preliminary report was called and/or faxed to Dr. Jones. 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 Clinical cor relation would be appropriate. Chronic deep venous thrombosis right popliteal and gastrocnemius veins Patent and compressible right great saphenous vein Previous study of January 20, 2023 suggested chronic deep venous thrombosis of th e right popliteal vein and acute deep vein thrombosis of the right gastrocnemius vein at that ingrid e Ordering Physician: Yamile Jones Referring Physician: Ophelia Soria M.D. Performed By: Livier Espinoza RVT
--- NOTE | 2023-04-01 15:52 | EX.ED.DYSGE1 ---
HPI History of Present Illness Chief Complaint: Lower Extremity Injury Detail of Chief Complaint: Right leg pain and swelling Informant: patient Narrative Narrative: Patient presents secondary to right leg pain and swelling. She is a history of DVT as well as PE and is on Coumadin. Her INR was 2.0 last week. She states 4 days ago she developed pain that started in her calf, moved up into her thigh, and is now up into the right SI joint region. She initially thought this was just her sciatica acting up but her leg has been swelling as well. She does report intermittent shortness of breath and chest pain. 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 Back pain Back pain with sciatica Bilateral carotid bruits BiPAP (biphasic positive airway pressure) dependence Body mass index 45.0-49.9, adult Cardiology follow-up encounter Carotid artery disease COPD (chronic obstructive pulmonary disease) COVID-19 Depression Diabetes Diastolic heart failure Discoloration of skin Easy bruising Essential hypertension Excessive bleeding High cholesterol History of DVT (deep vein thrombosis) History of echocardiogram History of edema History of pain when walking History of pulmonary embolism History of steroid therapy History of stress test History of transcatheter aortic valve replacement (TAVR) (~04/19/21) Hx of transesophageal echocardiography (YOLANDA) for monitoring Insulin dependent diabetes mellitus Leg cramps Migraine headache Morbid obesity Non-smoker Nonrheumatic aortic (valve) stenosis On home oxygen therapy CHELSEY treated with BiPAP Personal history of anaphylaxis Positive FIT (fecal immunochemical test) Pulmonary embolism Restless legs Rotator cuff arthropathy of right shoulder Shortness of breath on exertion TIA (transient ischemic attack) Type 2 diabetes mellitus Home Medications fluoxetine 20 mg capsule 40 mg PO DAILY anxiety 01/26/14 [History Last Taken 04/05/21] potassium chloride 10 mEq tablet,extended release(part/cryst) 10 meq PO BID Potassium Chloride 01/06/16 [History Last Taken 08/11/22] Ca 600 mg-D3 800 unit-magnes 40 gl-xhru-nfo-angel-boron chewable tablet 1 ea PO DAILY vitamins 05/27/16 [History Last Taken 04/05/21] fenofibrate nanocrystallized 145 mg tablet 72.5 mg PO QHS cholesterol 04/26/19 [History Last Taken 04/04/21] ergocalciferol (vitamin D2) 1,250 mcg (50,000 unit) capsule 50,000 unit PO WE supplement 08/09/19 [History Last Taken 04/04/21] trazodone 50 mg tablet 50 mg PO QHS sleep 08/09/19 [History Last Taken 04/04/21] epinephrine 0.3 mg/0.3 mL injection, auto-injector 0.3 mg (0.3 mL) IM X1 PRN Anaphylaxis #1 ea 01/18/20 [Rx Last Taken Unknown] albuterol sulfate 2.5 mg/3 mL (0.083 %) solution for nebulization 2.5 mg (3 mL) inhalation Q2H PRN PRN dyspnea, wheezing #180 mL 04/24/20 [Rx Last Taken 07/02/21 09:00] albuterol sulfate 90 mcg/actuation aerosol inhaler 2 inh inhalation Q4H PRN PRN Sob &/Or Wheezing #18 grams 04/24/20 [Rx Last Taken 04/29/22] montelukast 10 mg tablet 10 mg PO DAILY allergies/asthma #30 tabs 12/07/20 [Rx Last Taken 04/05/21] alendronate 70 mg tablet 70 mg PO WE bone health 12/21/20 [History Last Taken 08/07/22] nystatin 100,000 unit/gram topical powder 1 applic topical BID PRN PRN YEAST 12/21/20 [History Last Taken 04/05/21] ondansetron 4 mg disintegrating tablet 4 mg PO Q8H PRN Nausea 12/21/20 [History Last Taken Unknown] beclomethasone dipropionate 80 mcg/actuation HFA breath activated aerosol 1 inh inhalation BID Asthma 03/22/21 [History Last Taken 07/02/21 09:00] budesonide-formoterol HFA 160 mcg-4.5 mcg/actuation aerosol inhaler 2 puff inhalation BID asthma 03/22/21 [History Last Taken 04/29/22] furosemide 40 mg tablet 40 mg PO MOWEFR diuresis 03/22/21 [History Last Taken 04/05/21] ipratropium 0.5 mg-albuterol 3 mg (2.5 mg base)/3 mL nebulization soln 3 ml inhalation BID asthma 03/22/21 [History Last Taken 04/05/21] tizanidine 4 mg capsule 4 mg PO Q8H PRN muscle relaxer 03/22/21 [History Last Taken 04/04/21] cyanocobalamin (vitamin B-12) 100 mcg tablet (Vitamin B-12) 100 mcg PO DAILY supplement 04/05/21 [History Last Taken 04/05/21] melatonin 10 mg tablet 10 mg PO QHS sleep 04/05/21 [History Last Taken 04/04/21] oxycodone-acetaminophen 5 mg-325 mg tablet (Percocet) 1 tab PO Q6H PRN PRN Pain 04/05/21 [History Last Taken 08/10/22] pregabalin 150 mg capsule 150 mg PO TID nerve pain 04/05/21 [History Last Taken 08/11/22] diltiazem HCl 240 mg capsule,extended release 24 hr 240 mg PO DAILY BP 04/06/21 [History Last Taken 07/02/21 09:00] meclizine 25 mg tablet 25 mg PO DAILY PRN Vertigo 05/04/21 [History Last Taken Unknown] warfarin 6 mg tablet 9 mg PO DAILY blood thinner 05/04/21 [History Last Taken 06/09/22] docusate sodium 100 mg capsule 100 mg PO BID stool softener 08/17/21 [History Last Taken Unknown] magnesium 250 mg tablet 250 mg PO DAILY supplement 08/17/21 [History Last Taken Unknown] L.acidophil-L.casei-B.bifid-B.longum-FOS 2 billion cell-50 mg capsule (Probiotic Blend) 1 cap PO DAILY supplement 11/07/21 [History Last Taken Unknown] ascorbate calcium (vitamin C) 500 mg tablet 500 mg PO DAILY vitamin 11/07/21 [History Last Taken Unknown] chromium picolinate 200 mcg tablet 200 mcg PO DAILY supplement 11/07/21 [History Last Taken Unknown] clobetasol 0.05 % topical cream 1 applic topical PRN PRN RASH/ITCHING 11/07/21 [History Last Taken Unknown] coconut oil 1,000 mg capsule 1,000 mg PO DAILY supplement 11/07/21 [History Last Taken Unknown] cyclobenzaprine 5 mg tablet 10 mg PO PRN PRN MUSCLE CRAMPING 11/07/21 [History Last Taken 08/11/22] guaifenesin 400 mg tablet (Mucus Relief) 400 mg PO Q4H PRN PRN Cough 11/07/21 [History Last Taken Unknown] levocetirizine 5 mg tablet 5 mg PO DAILY allergies 11/07/21 [History Last Taken Unknown] polyethylene glycol 3350 17 gram/dose oral powder (Miralax) 17 g PO DAILY PRN PRN Constipation 11/07/21 [History Last Taken Unknown] rizatriptan 10 mg disintegrating tablet (Maxalt-BAIL BONDING AGENT) 10 mg PO PRN PRN MIGRAINES 11/07/21 [History Last Taken Unknown] semaglutide 1 mg/dose (2 mg/1.5 mL) subcutaneous pen injector 1 mg subcut TH diabetes 11/07/21 [History Last Taken Unknown] vitamin K2 45 mcg capsule 45 mcg PO DAILY vitamin 11/07/21 [History Last Taken Unknown] zinc amino acid chelate 50 mg tablet 50 mg PO DAILY supplement 11/07/21 [History Last Taken Unknown] insulin glargine U-300 conc 300 unit/mL (1.5 mL) subcutaneous pen (Toujeo SoloStar U-300 Insulin) 50 unit subcut BID DIABETES 04/29/22 [History Last Taken 04/28/22 25 MG] dicyclomine 10 mg capsule 10 mg PO BID diarrhea/cramps #60 caps 07/01/22 [Rx Last Taken Unknown] omeprazole 40 mg capsule,delayed release 40 mg PO BID #180 caps 07/01/22 [Rx Last Taken Unknown] sucralfate 1 gram tablet 1 g PO QAC #90 tabs 07/01/22 [Rx Last Taken Unknown] dapagliflozin propanediol 10 mg tablet (Farxiga) 10 mg PO DAILY diabetes 08/11/22 [History Last Taken 08/11/22] moexipril 15 mg tablet 15 mg PO DAILY 08/11/22 [History Last Taken Unknown] pitavastatin calcium 4 mg tablet (Livalo) 4 mg PO DAILY cholesterol 08/11/22 [History Last Taken Unknown] hydrocodone-acetaminophen 5-325mg 5mg-325mg 1 tab PO Q4H PRN PRN Pain 2 days #10 TABLETS 11/10/22 [Rx Last Taken Unknown] ondansetron 4 mg disintegrating tablet 4 mg PO Q8H PRN PRN Nausea #10 tabs 04/01/23 [Rx Last Taken Unknown] Allergy/AdvReac Type Severity Reaction Status Date / Time clindamycin Allergy Rash Verified 04/01/23 15:45 erythromycin base Allergy Rash Verified 04/01/23 15:45 [Erythromycin Base] omalizumab [From Xolair] Allergy Chest Verified 04/01/23 15:45 tightness Penicillins Allergy Rash Verified 04/01/23 15:45 sulfamethoxazole Allergy Chest Verified 04/01/23 15:45 [From Bactrim] tightness trimethoprim [From Bactrim] Allergy Chest Verified 04/01/23 15:45 tightness Sulfa (Sulfonamide AdvReac Unknown Unknown Verified 04/01/23 15:45 Antibiotics) Family History Father Heart disease Diabetes CAD (coronary artery disease) Mother CAD (coronary artery disease) CVA (cerebral vascular accident) Diabetes Brother CAD (coronary artery disease) CVA (cerebral vascular accident) Diabetes Unknown Cancer Grandmother CVA (cerebral vascular accident) Diabetes Grandfather CVA (cerebral vascular accident) Grandmother Myocardial infarction Brother Diabetes Sister Diabetes Surgical History Aortic valve replaced H/O lumbosacral spine surgery History of cardiac catheterization History of section History of hernia repair History of left heart catheterization (LHC) (~01/19/21) History of neck surgery History of rotator cuff surgery Hx of appendectomy Social History household members: spouse housing: apartment pets and animals: Yes Smoking Status: Never smoker second hand exposure: No alcohol intake: current alcohol intake frequency: a few times a week substance use type: does not use caffeine: No what type of physical activity do you participate in: none do you feel safe at home: Yes ROS ROS ED Constitutional Constitutional ED: Denies chills or fever(s) Eyes Eyes: Denies change in vision ENT ENT ED: Denies rhinorrhea Cardiovascular Cardiovascular: Reports chest pain; Denies palpitations Respiratory/Chest Respiratory/Chest: Reports dyspnea; Denies cough Gastrointestinal Gastrointestinal: Denies abdominal pain, nausea or vomiting Genitourinary Genitourinary ED: Denies dysuria Musculoskeletal Musculoskeletal: Reports back pain and other Details: Right leg pain and swelling Psychiatric Psychiatric: Denies anxiety or depression Allergic/Immunologic Allergic/Immunologic ED: Denies mouth swelling or tongue swelling EXAM Physical Exam Const Vital Signs: 04/01/23 15:39 04/01/23 15:49 04/01/23 17:35 Temperature 97.8 F Temperature Source Temporal Pulse Rate 76 70 Respiratory Rate 18 14 Respiratory Effort Normal Non-Labored Blood Pressure 159/136 H 168/78 H Blood Pressure Mean 143 108 Pulse Ox 96 92 Oxygen Delivery Method Room Air Room Air 04/01/23 18:34 Temperature Temperature Source Pulse Rate 71 Respiratory Rate 17 Respiratory Effort Blood Pressure 157/81 H Blood Pressure Mean Pulse Ox 95 Oxygen Delivery Method Positive well nourished and well developed General Appearance ED: well developed HEENT Reports normocephalic and head/scalp atraumatic Eyes PERRL and EOMs intact bilaterally Neck supple Chest Wall inspection of chest normal and palpation of chest normal Resp normal respiratory effort and clear to auscultation bilaterally Cardio regular rate and regular rhythm GI normal to inspection, nondistended, normoactive bowel sounds Palpation: soft Back/Spine no CVA tenderness Extremity Extremity Narrative: 3+ edema right lower extremity. No palpable cords. Strong distal pulses. Neuro oriented x3 and no sensory deficits noted Sensorium / Orientation: alert Motor Exam: strength 5/5 throughout Psych mental status grossly normal Skin no rashes or lesions noted MDM MDM MDM Narrative Medical decision making narrative: Patient placed on ekg monitor tech. EKG obtained to evaluate for cardiac arrhythmia/ischemia. Labwork obtained to evaluate for leukocytosis, anemia, and electrolyte derangement. Venous ultrasound of the right lower extremity obtained to evaluate for DVT. Lab Data Attestation: I reviewed the patient's lab results. Labs: Laboratory Results - last 24 hr 04/01/23 04/01/23 04/01/23 16:03 16:03 16:03 WBC 7.2 RBC 4.81 Hgb 14.2 Hct 43.2 MCV 89.8 MCH 29.5 MCHC 32.9 RDW Std Deviation 46.7 H RDW Coeff of Carmencita 14.3 Plt Count 254 MPV 10.6 Immature Gran % (Auto) 0.400 Neut % (Auto) 56.7 Lymph % (Auto) 30.7 [place] % (Auto) 10.1 H Eos % (Auto) 1.3 Baso % (Auto) 0.8 Absolute Neuts (auto) 4.1 Absolute Lymphs (auto) 2.21 Nucleated RBC % 0 PT 23.5 H INR 2.1 D-Dimer Quant (PE/DVT) 0.30 Sodium 141 Potassium 3.8 Chloride 106 Carbon Dioxide 30.0 Anion Gap 5 BUN 10 Creatinine 0.53 L Estim Creat Clear Calc 93.82 Est GFR (MDRD) Af Amer 150 Est GFR (MDRD) Non-Af 124 BUN/Creatinine Ratio 18.9 Glucose 119 H Calcium 9.0 Troponin I High Sens 8 Radiography Diagnostic Testing: Clinical Impression(s) from Imaging Studies Abdomen/Pelvis CT 04/01/23 16:51 IMPRESSION: Sclerosis in the T8 vertebral body with loss of vertebral body height may be related to vertebroplasty. Clinical correlation recommended. Other underlying processes aren''t excluded. Small left renal cysts. Electronically Signed: Quinn Nadine, at 17:59 EDT Reading Location ID and State: [address] [place] [address] Tel , Service support , ADDENDUM: 04/01/23 1818 IMPRESSION: Sclerosis in the T8 vertebral body with loss of vertebral body height may be related to vertebroplasty. Clinical correlation recommended. Other underlying processes aren''t excluded. Small left renal cysts. N.B. : Yamile Jones MD, MD, confirmed on 04/01/2023 18:11:18 (ET) that the healthcare facility has received the radiology report. Electronically Signed: Quinn Nadine, at 17:59 EDT Reading Location ID and State: [facility] / [place] Tel , Service support , EKG Initial EKG: Attestation: I personally reviewed and interpreted this EKG as follows: Interpretation: Sinus Rhythm (Sinus at 72 with no acute ischemia. Right bundle branch block noted.) Treatment and Re-Evaluation :: CBC is unremarkable. Chemistry studies normal. Troponin is normal at 8 and D-dimer is normal at 0.30. INR is 2.1. Venous ultrasound of the right lower extremity reveals no evidence of DVT. Given the patient has unilateral swelling a CT scan of the abdomen and pelvis was obtained to ensure no venous compression causing her edema. CT scan of the abdomen pelvis reveals sclerosis and T8 but no other masses are appreciated. Test results are discussed with the patient. She was given fentanyl here for pain will be given prescription for Percocet at home. We will treat her pain is sciatica and we discussed appropriate leg elevation and being sure that she has her Coumadin daily. She voices understanding and agreement. Addendum: We were notified by pharmacy that the patient had received 60 tabs (15-day supply) of Percocet on March 20. In light of this her Percocet prescription is canceled. Prescription for Zofran was sent to the pharmacy for her. Discharge Plan Triage Chief Complaint: Lower Extremity Injury ED Provider: Yamile Jones Dx/Rx/DC Orders Clinical Impression: Sciatica, Leg edema, right Instructions: ED Peripheral Edema, Unilateral, ED Sciatica Prescriptions: New ondansetron 4 mg tablet,disintegrating 4 mg PO Q8H PRN PRN (Reason: Nausea) Qty: 10 0RF No Action ergocalciferol (vitamin D2) 50,000 unit capsule 50,000 unit PO WE trazodone 50 mg tablet 50 mg PO QHS albuterol sulfate 2.5 mg /3 mL (0.083 %) solution for nebulization 2.5 mg INHALATION Q2H PRN PRN (Reason: dyspnea, wheezing) Qty: 180 6RF albuterol sulfate 90 mcg/actuation HFA aerosol inhaler 2 inh INHALATION Q4H PRN PRN (Reason: Sob &/Or Wheezing) Qty: 18 6RF montelukast 10 mg tablet 10 mg PO DAILY Qty: 30 6RF alendronate 70 mg tablet 70 mg PO WE ondansetron 4 mg tablet,disintegrating 4 mg PO Q8H PRN (Reason: Nausea) nystatin 100,000 unit/gram powder 1 applic TOPICAL BID PRN PRN (Reason: YEAST) warfarin 6 mg tablet 9 mg PO DAILY Rx Instructions: two 4 mg tablets and one 1mg tablet meclizine 25 mg tablet 25 mg PO DAILY PRN (Reason: Vertigo) magnesium 250 mg tablet 250 mg PO DAILY levocetirizine 5 mg tablet 5 mg PO DAILY cyclobenzaprine 5 mg tablet 10 mg PO PRN PRN (Reason: MUSCLE CRAMPING) clobetasol 0.05 % cream 1 applic topical PRN PRN (Reason: RASH/ITCHING) guaifenesin [Mucus Relief] 400 mg tablet 400 mg PO Q4H PRN PRN (Reason: Cough) polyethylene glycol 3350 [Miralax] 17 gram/dose powder 17 g PO DAILY PRN PRN (Reason: Constipation) rizatriptan [Maxalt-BAIL BONDING AGENT] 10 mg tablet,disintegrating 10 mg PO PRN PRN (Reason: MIGRAINES) chromium picolinate 200 mcg tablet 200 mcg PO DAILY coconut oil 1,000 mg capsule 1,000 mg PO DAILY Probiotic Blend 2 billion cell-50 mg capsule 1 cap PO DAILY Rx Instructions: give with meal/snack ascorbate calcium (vitamin C) 500 mg tablet 500 mg PO DAILY vitamin K2 45 mcg capsule 45 mcg PO DAILY zinc amino acid chelate 50 mg tablet 50 mg PO DAILY dicyclomine 10 mg capsule 10 mg PO BID Qty: 60 0RF omeprazole 40 mg capsule,delayed release(DR/EC) 40 mg PO BID Qty: 180 0RF sucralfate 1 gram tablet 1 g PO QAC Qty: 90 0RF fluoxetine 20 MG capsule 40 mg PO DAILY Label Comments: Depression/anxiety potassium chloride 10 MEQ tablet 10 meq PO BID Label Comments: Supplement docusate sodium 100 mg capsule 100 mg PO BID Label Comments: Stool softner Wk-K1-rlv-rbmo-rxe-wwwi-boron 1 EACH tablet,chewable 1 ea PO DAILY fenofibrate nanocrystallized 145 MG tablet 72.5 mg PO QHS semaglutide 1 mg/dose (2 mg/1.5 mL) pen injector 1 mg subcut TH Rx Instructions: OZEMPIC tizanidine 4 mg Capsule 4 mg PO Q8H PRN (Reason: muscle relaxer) furosemide 40 MG tablet 40 mg PO MOWEFR Label Comments: Diuretic - water pill to remove extra fluid ipratropium-albuterol 0.5 mg-3 mg(2.5 mg base)/3 mL solution for nebulization 3 ml INHALATION BID Rx Instructions: Continue until re-evaluation per pulmonary with possible transition back to home regimen at that time. budesonide-formoterol 160-4.5 mcg/actuation HFA aerosol inhaler 2 puff INHALATION BID beclomethasone dipropionate 80 mcg/actuation HFA aerosol breath activated 1 inh inhalation BID oxycodone-acetaminophen [Percocet] 5-325 mg Tablet 1 tab PO Q6H PRN PRN (Reason: Pain) cyanocobalamin (vitamin B-12) [Vitamin B-12] 100 mcg Tablet 100 mcg PO DAILY pregabalin 150 mg capsule 150 mg PO TID melatonin 10 mg Tablet 10 mg PO QHS diltiazem HCl 240 mg capsule,extended release 24hr 240 mg PO DAILY Toujeo SoloStar U-300 Insulin 300 unit/mL (1.5 mL) insulin pen 50 unit SUBCUT BID Label Comments: INJECT 56 UNITSESUBCUTANEOUSLY JUNIOR Rx Instructions: TOUJEO moexipril 15 mg tablet 15 mg PO DAILY Livalo 4 mg tablet 4 mg PO DAILY Farxiga 10 mg tablet 10 mg PO DAILY hydrocodone-acetaminophen [hydrocodone-acetaminophen] 5-325 mg tablet 1 tab PO Q4H PRN PRN (Reason: Pain) 2 Days Qty: 10 0RF epinephrine 0.3 mg/0.3 mL auto-injector 0.3 mg IM X1 PRN (Reason: Anaphylaxis) Qty: 1 0RF Primary Care Provider: Ophelia Soria Referrals: Ophelia Soria DO [Primary Care Provider] - 1 Week Disposition Disposition: Home, Self Care
[2023-04-01 16:22] LABS: Absolute Lymphocyte Count 2.21 X10^3/uL (0.83-4.51); Absolute Neutrophil Count 4.1 X10^3/uL (2.0-7.7); Basophil# 0.06 X10^3/uL; Basophil% 0.8 % (0-1); Eosinophil# 0.09 X10^3/uL; Eosinophils% 1.3 % (0-5); Hematocrit 43.2 % (37-47); Hemoglobin 14.2 g/dL (12.0-15.0); Lymphocyte # 2.21 X10^3/ul (0.83-4.51); Lymphocyte % 30.7 % (19-41); Mean Corp Hgb Conc 32.9 g/dL (32-36); Mean Corpuscular Hgb 29.5 pg (27.0-32.0); Mean Corpuscular Volume 89.8 fL (81-99); Mean Platelet Vol. 10.6 fl (6.2-12.0); Monocyte# 0.73 X10^3/uL; Monocyte% 10.1 % (0-10); NRBC Flagged by Analyzer 0 % (0-5); Neutrophil # 4.08 X10^3/uL (2.7-7.7); Neutrophil % 56.7 % (47-70); Platelet Count 254 K/mm3 (150-450); RBC Distribution Width CV 14.3 % (11.6-14.6); RBC Distribution Width SD 46.7 fl (35.1-43.9); Red Blood Count 4.81 M/mm3 (4.2-5.4); White Blood Count 7.2 K/mm3 (4.4-11.0)
[2023-04-01 16:27] LABS: International Normalized Ratio 2.1; Prothrombin Time (Protime)PT. 23.5 SECONDS (11.7-14.9)
[2023-04-01 16:31] LABS: Anion Gap 5 (5-15); BUN 10 mg/dL (7-18); BUN/Creat Ratio 18.9 RATIO (10-20); Chloride 106 mmol/L (98-107); Creatinine, Serum 0.53 mg/dL (0.55-1.02); EST Glomerular Filtration Rate 124 mL/min (>60); Est Glom Filt Rate - Afr Amer 150 mL/min (>60); Estimated Creatinine Clearance 93.82 ml/min; Glucose 119 mg/dL (74-106); Potassium 3.8 mmol/L (3.5-5.1); Sodium Level 141 mmol/L (136-145); Troponin-I HS 8 pg/mL (3.0-54.0)
--- NOTE | 2023-04-01 16:51 | CT_ITS ---
ACR Level 3 findings have been noted. An addendum which confirms receipt of the report will follow. STUDY: CT ABDOMEN AND PELVIS WITH CONTRAST - URINARY TRACT REASON FOR EXAM: Female, 62 years old. right leg edema, pain -- No DVT. Evaluate for venous compression/mass RADIATION DOSAGE (If Supplied By Facility): CTDIvol = ( 19.47 ) mGy, DLP = ( 1451.91 ) mGycm TECHNIQUE: IV 100mL [id number]-[id number] was administered. Transaxial images were obtained from the dome of the diaphragm to the symphysis pubis in the arterial, nephrographic and excretory phases. Multiplanar coronal and sagittal images were reformatted. Individualized Dose Optimization Techniques Were Used For This CT. COMPARISON: November 10, 2022 FINDINGS: The visualized lung bases are unremarkable. The visualized portions of the heart are within normal limits. Normal liver. Normal gallbladder and extrahepatic biliary system. Normal spleen. Normal pancreas. Normal bilateral adrenal glands. Normal visualized stomach. Normal small intestine. Normal colon. Appendix is not well visualized although no inflammation is noted in the right lower quadrant. Normal abdominal aorta. No retroperitoneal adenopathy. Normal right kidney. Small cysts are noted in the left kidney. Normal urinary bladder. Normal abdominal wall. Nonspecific linear sclerosis is noted in the T8 vertebral body possibly related to vertebroplasty. CT/Abdomen/Pelvis W IV Cont ONLY IMPRESSION: Sclerosis in the T8 vertebral body with loss of vertebral body height may be related to vertebroplasty. Clinical correlation recommended. Other underlying processes aren''t excluded. Small left renal cysts. Electronically Signed: Quinn Mccoy, at 17:59 EDT ,
[2023-04-01] MEDS: fentaNYL 100 MCG/2 ML Ampul 50 MCG IV (17:06)
[2023-04-01 17:35] VITALS: BP 168/78; PULSE 70; RESP 14; O2SAT 92
[2023-04-01 18:34] VITALS: BP 157/81; PULSE 71; RESP 17; O2SAT 95
== END 2023-04-01 19:52 | disposition home or self-care (01) ==
PROVIDERS: Emergency Provider Emergency Medicine; PCP Internal Medicine; Visit Provider Emergency Medicine
DX: M54.30 Sciatica, unspecified side (principal); I11.0 Hypertensive heart disease with heart failure; I50.32 Chronic diastolic (congestive) heart failure; M79.89 Other specified soft tissue disorders; I25.10 Atherosclerotic heart disease of native coronary artery without angina pectoris; G47.33 Obstructive sleep apnea (adult) (pediatric); Z86.16 Personal history of COVID-19; Z86.718 Personal history of other venous thrombosis and embolism; Z86.73 Personal history of transient ischemic attack (TIA), and cerebral infarction without residual deficits; Z86.711 Personal history of pulmonary embolism; Z79.01 Long term (current) use of anticoagulants
CPT/HCPCS: 74177; 80048; 84484; 85025; 85379; 85610; 93005; 93971; 96374; 99284; Q9967; A4216

== ENCOUNTER → 2023-04-28 | Outpatient (CLI) | payer MEDICARE, MEDICAID, SELFPAY ==
[2021-09-03 12:59] VITALS: BMI 43.4
--- NOTE | 2023-04-28 15:05 | RAD_ITS ---
INDICATION: PAIN EXAMINATION/TECHNIQUE: X-RAY - XR Spine Thoracic 3 Views COMPARISON: MRI thoracic spine January 17, 2023 FINDINGS: VERTEBRAE: There is some ill-defined increased density transversely in the upper to mid body of the T8 vertebra, consistent with healing/healed compression fracture. There is only slight loss of height at that level. Multilevel near bridging anterolateral degenerative endplate osteophytes are again noted. No spondylolisthesis. Preservation of the normal thoracic kyphosis. No significant facet arthropathy. Incidental note of metal fixation hardware at the visualized lower cervical spine. DISCS: There is mild narrowing of the T10-11 T11-12 and T12-L1 intervertebral disc spaces. INCLUDED CHEST/ABDOMEN: No acute abnormalities. An aortic valve prosthesis is incidentally noted. RAD/Thoracic Spine 3 Views IMPRESSION: 1. Healing/healed compression fracture deformity of the T8 vertebra. 2. Stable multilevel degenerative changes of the spine, as described. Electronically Signed: Carl Avalos MD at 16:33 EDT Reading Location ID and State: [id number] / Unknown , Service support ,
--- NOTE | 2023-04-28 15:05 | RAD_ITS ---
STUDY: X-RAY - LUMBAR SPINE REASON FOR EXAM: Female, 62 years old. Back pain. Fall last week. TECHNIQUE: 4 view(s) of the lumbar spine were obtained. COMPARISON: Lumbar spine MRI dated March 2021. FINDINGS: Osteopenia. Normal lumbar lordosis. No substantial scoliosis. Normal alignment of the vertebrae. Diffuse lower thoracic and lumbosacral facet sclerosis. Apparent laminectomy from L4 to S1. Diffuse intervertebral disc space narrowing with osteophyte formation most marked at L1-2, L2-3, L3-4, L4-5 and L5-S1. Vascular calcification. RAD/L/S Spine Min 4 Views IMPRESSION: Osteopenia with moderate lower thoracic and lumbosacral spondylosis as described. No acute abnormality or erosive changes. Electronically Signed: Kale Aranda MD at 16:10 EDT ,
--- NOTE | 2023-04-28 15:05 | RAD_ITS ---
INDICATION: PAIN EXAMINATION/TECHNIQUE: X-RAY - XR Hip Unilateral with Pelvis when performed; 2-3 Views COMPARISON: AP pelvis with additional views of the right hip July 23, 2020; CT abdomen and pelvis April 01, 2023 FINDINGS: PELVIC BONES: No displaced fracture, destructive or sclerotic lesions. Note that overlapping bowel shadows may however obscure fine detail. Sacroiliac joints are unremarkable. No widening of the pubic symphysis. HIPS: Early spurring from the superolateral margin of the right acetabulum unchanged. The right hip joint space is preserved. No displaced fracture seen in this frontal view. SOFT TISSUES: Atherosclerotic intimal calcifications again seen in the left internal iliac artery branches and femoral arteries in the upper thighs. No soft tissue swelling or gas. SPINE: Again seen are laminectomy defects at L5, as well as multilevel degenerative changes of the visualized lumbar spine. RAD/HIP, UNI W/ Pelvis 2-3 Views IMPRESSION: 1. Stable appearance of the right hip since July 23, 2020, with only trace degenerative change. 2. Prior L5 laminectomies and multilevel degenerative changes of the visualized lumbar spine are also unchanged. Electronically Signed: Carl Avalos MD at 8:03 EDT Reading Location ID and State: [id number] / Unknown , Service support ,
== END | disposition home or self-care (01) ==
LOC: RAD 14:46
PROVIDERS: PCP Internal Medicine; Referring Provider Nurse Practitioner Acute Care; Visit Provider Nurse Practitioner Acute Care
DX: M80.08XA Age-related osteoporosis with current pathological fracture, vertebra(e), initial encounter for fracture (principal); M80.88XA Other osteoporosis with current pathological fracture, vertebra(e), initial encounter for fracture; M51.37 Other intervertebral disc degeneration, lumbosacral region; M51.34 Other intervertebral disc degeneration, thoracic region; M51.24 Other intervertebral disc displacement, thoracic region; M47.817 Spondylosis without myelopathy or radiculopathy, lumbosacral region; M54.14 Radiculopathy, thoracic region; M25.551 Pain in right hip
CPT/HCPCS: 72072; 72110; 73502

== ENCOUNTER → 2023-05-02 | Outpatient (CLI) | payer MEDICARE, MEDICAID, SELFPAY ==
[2021-09-03 12:59] VITALS: BMI 43.4
[2023-05-02 07:55] LABS: Bacteria 0 SEEN /hpf (None Seen); Mucous, Urine 0 SEEN /hpf (<or=2+); Red Blood Cells-Urine 0 SEEN /hpf (0-5); Squamous Epithelial Cells - UA 0 SEEN /hpf (5-10); White Blood Cells 0 SEEN /hpf (0-5)
[2023-05-02 08:50] LABS: Microalbumin,Random Urine 11.8 mg/L (NO RANGE EST.); Microalbumin:Creatinine Ratio 35.1 mg/g CRE (<30 mg/g CRE)
[2023-05-02 08:57] LABS: Color, Urine Yellow (Yellow); Glucose, Dipstick 1000 mg/dl (Normal); Ketone-Dipstick Negative (Negative); Leukocyte Esterase-Dipstick 100 /ul (Negative); Nitrite-Dipstick Negative (Negative); Occult Blood-Urine Negative /ul (Negative); Protein-Dipstick Negative (Negative); Urine Bilirubin Dipstick Negative (Negative); Urine Clarity Clear (Clear); Urine Urobilinogen Normal (Normal)
[2023-05-02 08:59] LABS: Absolute Lymphocyte Count 2.62 X10^3/uL (0.83-4.51); Absolute Neutrophil Count 5.1 X10^3/uL (2.0-7.7); Basophil# 0.07 X10^3/uL; Basophil% 0.8 % (0-1); Eosinophils% 2.3 % (0-5); Hematocrit 46.2 % (37-47); Lymphocyte # 2.62 X10^3/ul (0.83-4.51); Lymphocyte % 30.3 % (19-41); Mean Corp Hgb Conc 32.5 g/dL (32-36); Mean Corpuscular Hgb 29.5 pg (27.0-32.0); Mean Corpuscular Volume 90.8 fL (81-99); Mean Platelet Vol. 10.5 fl (6.2-12.0); Monocyte# 0.57 X10^3/uL; Monocyte% 6.6 % (0-10); NRBC Flagged by Analyzer 0 % (0-5); Neutrophil # 5.14 X10^3/uL (2.7-7.7); Neutrophil % 59.3 % (47-70); Platelet Count 209 K/mm3 (150-450); RBC Distribution Width CV 14.7 % (11.6-14.6); RBC Distribution Width SD 49.3 fl (35.1-43.9); Red Blood Count 5.09 M/mm3 (4.2-5.4); White Blood Count 8.7 K/mm3 (4.4-11.0)
[2023-05-02 09:06] LABS: ALB/GLOB Ratio 0.9 RATIO (0.9-2.4); AST(SGOT) 35 U/L (15-37); Alanine Aminotransfer ALT/SGPT 47 U/L (13-56); Alkaline Phosphatase 85 U/L (45-117); Anion Gap 5 (5-15); BUN 11 mg/dL (7-18); BUN/Creat Ratio 24.9 RATIO (10-20); Calcium,Total 8.4 mg/dL (8.5-10.1); Chloride 107 mmol/L (98-107); Cholesterol 152 mg/dL (200); Creatinine, Serum 0.44 mg/dL (0.55-1.02); EST Glomerular Filtration Rate 153 mL/min (>60); Est Glom Filt Rate - Afr Amer 185 mL/min (>60); Globulin 3.2 g/dL (2.2-4.2); Glucose 105 mg/dL (74-106); High Density Lipoprotein 55 mg/dL; Potassium 3.9 mmol/L (3.5-5.1); Protein, Total 6.2 g/dL (6.4-8.2); Sodium Level 141 mmol/L (136-145); Thyroid Stim Hormone (TSH) 1.34 uIU/mL (0.358-3.74); Triglycerides 177 mg/dL; Very Low Density Lipoprotein 35 mg/dL (5-40)
[2023-05-02 09:07] LABS: Vitamin D,25 Hydroxy 61.7 ng/mL
== END | disposition home or self-care (01) ==
LOC: LAB 07:50
PROVIDERS: PCP Internal Medicine; Referring Provider Internal Medicine; Visit Provider Internal Medicine
DX: E11.65 Type 2 diabetes mellitus with hyperglycemia (principal); E55.9 Vitamin D deficiency, unspecified; E78.00 Pure hypercholesterolemia, unspecified
CPT/HCPCS: 36415; 80053; 80061; 81001; 82043; 82306; 82570; 84443; 85025

== ENCOUNTER 2023-06-03 11:01 | Outpatient (RCR) | payer MEDICARE, MEDICAID, SELFPAY ==
[2021-09-03 12:59] VITALS: BMI 43.4
[2023-06-03 11:27] LABS: International Normalized Ratio 1.1; Prothrombin Time (Protime)PT. 14.6 SECONDS (11.7-14.9)
== END 2023-06-03 18:00 | disposition home or self-care (01) ==
LOC: LAB 11:01
PROVIDERS: PCP Internal Medicine; Referring Provider Internal Medicine; Visit Provider Internal Medicine
DX: I82.409 Acute embolism and thrombosis of unspecified deep veins of unspecified lower extremity (principal)
CPT/HCPCS: 36415; 85610

== ENCOUNTER 2023-06-10 13:30 | Outpatient (RCR) | payer MEDICARE, MEDICAID, SELFPAY ==
[2021-09-03 12:59] VITALS: BMI 43.4
--- NOTE | 2023-04-30 16:10 | HP.PTEVAL_ITS ---
Patient's Visit Information Visit Information Visit Information: NATHALIE HERMAN is a 62 year old F referred to Physical Therapy by Dr. Ophelia Soria DO with a diagnosis of R LE radiculopathy. Date of Evaluation: 04/30/23 Physical Therapist: Aly Connor, PT, ATC Visit Plan Frequency: 2-3x /Week Duration: 4-6 Weeks Plan: Postural education, SKTC stretches, DKTC when tolerated, core strengtheni ng in neutral, nustep, and HEP Subjective Subjective: Pt reports she has had R LE pain for approximately 10 weeks. Pt notes she was supposed to start PT at that time, but developed 5 blood clots in her R LE and had to rest her R LE until they dissipated. Pt reports she has LBP today that radiates into her R LE all the way to her toes. Pt reports she has difficulty driving and transferring from a seated to a standing position secondary to pain. Pt reports she us unable to sleep for greater than 4.5 hours at this time even while taking pain and sleeping pills. 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 Pt reports she is in the most pain with walking, forward bending, and with sitting greater than 1 1/2 hours. 7/10 pain while sitting here at rest, 9/10 pain at worst (trying to walk greater than 100 feet with her cane) Pain LBP R LE radiculopathy: Pain Intensity (Out of 10): 7 Pain Intensity Range: 9 Objective Objective: Neuro: R LE is hyposensitive to light touch. L LE is WNL to lgiht touch. B patellar reflex 3/3 MMT: R LE is 3/5 and painful with all testing. L LE is 4-/5 and painful with all testing ROM: Pt is moderately to severely limited with all motions of the L/S Repeated movements: SKTC stretches decreases pain Balance/Special Test Scores Oswestry Low Back Score: 11 Lower Extremity Functional Score: 16 Goals Goal 1:: Decrease LBP x 50% to aid with sleep Goal Time Frame: 4-6 Weeks Goal 2:: Decrease the frequency and intensity of R LE radiculopathy x 50% to aid with standing tolerance Goal Time Frame: 4-6 Weeks Goal 3:: Pt will be able to ambulate greater than 300 feet until needing to rest secondary to pain Goal Time Frame: 4-6 Weeks Goal 4:: I with HEP Goal Time Frame: 4-6 Weeks Rehabilitation Potential Physical Therapy Diagnosis: Pt has R LE weakness, LBP, and limited ambulatory ability secondary to DDD Rehabilitation Potential: Good Anticipated Interventions Patient/Client Instruction: Educate patient on: Condition and Plan of Care For the Purpose of:: To improve self management Therapeutic Exercise to Include: Strength training, Endurance training, Postural training, Flexibilty training, Dynamic Lumbar Stabilization and [place]ora Exercises For the Purpose of:: To decrease pain, To increase ROM and To improve muscle performance and motor function Cryotherapy (ice pack, ice massage): Yes Thermo therapy (hot pack): Yes For the Purpose of:: To decrease pain Text: Thank you for the opportunity to evaluate your patient. For Medicare and Medicare HMO plans, please review the plan of care and approve it. It will need to be FAXED BACK to us at [phone] for Medicare purposes. For Medicare only, by signing this I certify the plan of care. Please let me know if there are questions or concerns regarding this plan of care. Physician Signature: Date:
--- NOTE | 2023-10-08 09:57 | HP.PT.NRP ---
Patient Information Patient Information: NATHALIE HERMAN was seen in my office for initial evaluation on 04/30/23. The following Plan of Care was established for this patient: POC Established Initial Frequency: 2-3x /Week Initial Duration: 4-6 Weeks Anticipated Interventions Patient/Client Instruction: Educate patient on: Condition and Plan of Care For the Purpose of:: To improve self management Therapeutic Exercise to Include: Strength training, Endurance training, Postural training, Flexibilty training, Dynamic Lumbar Stabilization and [place] Exercises For the Purpose of:: To decrease pain, To increase ROM and To improve muscle performance and motor function Cryotherapy (ice pack, ice massage): Yes Thermo therapy (hot pack): Yes For the Purpose of:: To decrease pain Last Seen Last Seen: This patient was last seen in our office . Pertinent comments regarding their Physical therapy will appear below: Pt was treated for 12 PT visits for LBP through the date of 06/10/23. Pt has not returned through todays date and is discontinued at this time. At this point I will be discontinuing this patient from physical therapy. I would be happy to see this patient again in the future if found appropriate by the physician. Thank you! Aly Connor, PT, ATC Balance/Gait/Functional tests Balance/Special Test Scores Oswestry Low Back Score: 11 Lower Extremity Functional Score: 16
== END 2023-06-10 19:00 | disposition home or self-care (01) ==
LOC: PT 13:30
PROVIDERS: PCP Internal Medicine; Referring Provider Internal Medicine; Visit Provider Internal Medicine
DX: M54.31 Sciatica, right side (principal)
CPT/HCPCS: 97110; 97161

== ENCOUNTER 2023-06-11 22:36 | Inpatient (IN) | payer MEDICARE, MEDICAID, SELFPAY ==
[2021-09-03 12:59] VITALS: BMI 43.4
[2023-06-11 22:38] VITALS: BP 175/96; PULSE 89; RESP 16; TEMP 36.2; O2SAT 97; BMI 42.5
--- NOTE | 2023-06-11 22:47 | ED.VIS.FALL ---
HPI HPI - Fall History of Present Illness Chief Complaint: Fall Informant: patient Occured/Mechanism Occurred: Today Mechanism/Context: Yes same level fall and Yes trip Pain/Injury Location: Face, right hip Pain Location: head and face Quality of Pain: Burning Worsened by: Movement Relieved by: Nothing Associated Symptoms Associated Symptoms: Positive for Parasthesias, Weakness and Inability to ambulate; Negative for Loss of consciousness or Amnesia Narrative Narrative: Patient presents after a fall that occurred tonight. Patient states she tripped over the corner of a table and fell. Patient hit the bridge of her nose. Patient denies any loss of consciousness. Patient complains of pain in her right hip, right thigh, head, and face. Patient describes her pain as burning. Patient states her headache is a pressure and throbbing. Patient admits to some decrease sensation on her right side. Patient admits to some weakness of her right lower leg. Patient was unable to ambulate after the fall. Patient denies any loss of consciousness. Patient is on Coumadin for heart valve replacement. PFSH PFS Medical History Anxiety Arthritis Asthma Atherosclerotic heart disease of inupiat coronary artery without angina pectoris Back pain Back pain with sciatica Bilateral carotid bruits BiPAP (biphasic positive airway pressure) dependence Body mass index 45.0-49.9, adult Cardiology follow-up encounter Carotid artery disease COPD (chronic obstructive pulmonary disease) COVID-19 Depression Diabetes Diastolic heart failure Discoloration of skin Easy bruising Essential hypertension Excessive bleeding High cholesterol History of DVT (deep vein thrombosis) History of echocardiogram History of edema History of pain when walking History of pulmonary embolism History of steroid therapy History of stress test History of transcatheter aortic valve replacement (TAVR) (~04/19/21) Hx of transesophageal echocardiography (YOLANDA) for monitoring Insulin dependent diabetes mellitus Leg cramps Migraine headache Morbid obesity Non-smoker Nonrheumatic aortic (valve) stenosis On home oxygen therapy CHELSEY treated with BiPAP Personal history of anaphylaxis Positive FIT (fecal immunochemical test) Pulmonary embolism Restless legs Rotator cuff arthropathy of right shoulder Shortness of breath on exertion TIA (transient ischemic attack) Type 2 diabetes mellitus Home Medications fluoxetine 20 mg capsule 40 mg PO DAILY anxiety 01/26/14 [History Last Taken 04/05/21] potassium chloride 10 mEq tablet,extended release(part/cryst) 10 meq PO BID Potassium Chloride 03/26/16 [History Last Taken 08/11/22] Ca 600 mg-D3 800 unit-magnes 40 vp-mfvl-pxv-angel-boron chewable tablet 1 ea PO DAILY vitamins 05/27/16 [History Last Taken 04/05/21] fenofibrate nanocrystallized 145 mg tablet 72.5 mg PO QHS cholesterol 04/26/19 [History Last Taken 04/04/21] ergocalciferol (vitamin D2) 1,250 mcg (50,000 unit) capsule 50,000 unit PO WE supplement 08/09/19 [History Last Taken 04/04/21] trazodone 50 mg tablet 50 mg PO QHS sleep 08/09/19 [History Last Taken 04/04/21] epinephrine 0.3 mg/0.3 mL injection, auto-injector 0.3 mg (0.3 mL) IM X1 PRN Anaphylaxis #1 ea 01/18/20 [Rx Last Taken Unknown] albuterol sulfate 2.5 mg/3 mL (0.083 %) solution for nebulization 2.5 mg (3 mL) inhalation Q2H PRN PRN dyspnea, wheezing #180 mL 04/24/20 [Rx Last Taken 07/02/21 09:00] albuterol sulfate 90 mcg/actuation aerosol inhaler 2 inh inhalation Q4H PRN PRN Sob &/Or Wheezing #18 grams 04/24/20 [Rx Last Taken 04/29/22] montelukast 10 mg tablet 10 mg PO DAILY allergies/asthma #30 tabs 12/07/20 [Rx Last Taken 04/05/21] alendronate 70 mg tablet 70 mg PO WE bone health 12/21/20 [History Last Taken 08/07/22] nystatin 100,000 unit/gram topical powder 1 applic topical BID PRN PRN YEAST 12/21/20 [History Last Taken 04/05/21] ondansetron 4 mg disintegrating tablet 4 mg PO Q8H PRN Nausea 12/21/20 [History Last Taken Unknown] beclomethasone dipropionate 80 mcg/actuation HFA breath activated aerosol 1 inh inhalation BID Asthma 03/22/21 [History Last Taken 07/02/21 09:00] budesonide-formoterol HFA 160 mcg-4.5 mcg/actuation aerosol inhaler 2 puff inhalation BID asthma 03/22/21 [History Last Taken 04/29/22] furosemide 40 mg tablet 40 mg PO MOWEFR diuresis 03/22/21 [History Last Taken 04/05/21] ipratropium 0.5 mg-albuterol 3 mg (2.5 mg base)/3 mL nebulization soln 3 ml inhalation BID asthma 03/22/21 [History Last Taken 04/05/21] tizanidine 4 mg capsule 4 mg PO Q8H PRN muscle relaxer 03/22/21 [History Last Taken 04/04/21] cyanocobalamin (vitamin B-12) 100 mcg tablet (Vitamin B-12) 100 mcg PO DAILY supplement 04/05/21 [History Last Taken 04/05/21] melatonin 10 mg tablet 10 mg PO QHS sleep 04/05/21 [History Last Taken 04/04/21] oxycodone-acetaminophen 5 mg-325 mg tablet (Percocet) 1 tab PO Q6H PRN PRN Pain 04/05/21 [History Last Taken 08/10/22] pregabalin 150 mg capsule 150 mg PO TID nerve pain 04/05/21 [History Last Taken 08/11/22] diltiazem HCl 240 mg capsule,extended release 24 hr 360 mg PO DAILY BP 04/06/21 [History Last Taken 07/02/21 09:00] meclizine 25 mg tablet 25 mg PO DAILY PRN Vertigo 05/04/21 [History Last Taken Unknown] docusate sodium 100 mg capsule 100 mg PO BID stool softener 08/17/21 [History Last Taken Unknown] magnesium 250 mg tablet 250 mg PO DAILY supplement 08/17/21 [History Last Taken Unknown] L.acidophil-L.casei-B.bifid-B.longum-FOS 2 billion cell-50 mg capsule (Probiotic Blend) 1 cap PO DAILY supplement 11/07/21 [History Last Taken Unknown] ascorbate calcium (vitamin C) 500 mg tablet 1,000 mg PO DAILY vitamin 11/07/21 [History Last Taken Unknown] chromium picolinate 200 mcg tablet 200 mcg PO DAILY supplement 11/07/21 [History Last Taken Unknown] clobetasol 0.05 % topical cream 1 applic topical PRN PRN RASH/ITCHING 11/07/21 [History Last Taken Unknown] coconut oil 1,000 mg capsule 1,000 mg PO DAILY supplement 11/07/21 [History Last Taken Unknown] cyclobenzaprine 5 mg tablet 10 mg PO Q8H PRN MUSCLE CRAMPING 11/07/21 [History Last Taken 08/11/22] guaifenesin 400 mg tablet (Mucus Relief) 400 mg PO Q4H PRN PRN Cough 11/07/21 [History Last Taken Unknown] levocetirizine 5 mg tablet 5 mg PO DAILY allergies 11/07/21 [History Last Taken Unknown] polyethylene glycol 3350 17 gram/dose oral powder (Miralax) 17 g PO DAILY PRN PRN Constipation 11/07/21 [History Last Taken Unknown] vitamin K2 45 mcg capsule 100 mcg PO DAILY vitamin 11/07/21 [History Last Taken Unknown] zinc amino acid chelate 50 mg tablet 100 mg PO DAILY supplement 11/07/21 [History Last Taken Unknown] insulin glargine U-300 conc 300 unit/mL (1.5 mL) subcutaneous pen (Toujeffrey SoloStar U-300 Insulin) 50 unit subcut BID DIABETES 04/29/22 [History Last Taken 04/28/22 25 MG] dicyclomine 10 mg capsule 10 mg PO BID diarrhea/cramps #60 caps 07/01/22 [Rx Last Taken Unknown] omeprazole 40 mg capsule,delayed release 40 mg PO BID #180 caps 07/01/22 [Rx Last Taken Unknown] dapagliflozin propanediol 10 mg tablet (Farxiga) 10 mg PO DAILY diabetes 08/11/22 [History Last Taken 08/11/22] moexipril 15 mg tablet 15 mg PO DAILY 08/11/22 [History Last Taken Unknown] pitavastatin calcium 4 mg tablet (Livalo) 4 mg PO DAILY cholesterol 08/11/22 [History Last Taken Unknown] alendronate 70 mg tablet (Fosamax) 70 mg PO QWEEK 06/12/23 [History Last Taken Unknown] cinnamon bark 500 mg capsule (Cinnamon) 1,000 mg PO DAILY 06/12/23 [History Last Taken Unknown] multivitamin (Daily Multi-Vitamin tablet) 1 tab PO DAILY 06/12/23 [History Last Taken Unknown] omeprazole 40 mg capsule,delayed release 40 mg PO BID 06/12/23 [History Last Taken Unknown] quercetin 500 mg capsule mg PO 06/12/23 [History Last Taken Unknown] semaglutide 1 mg/dose (4 mg/3 mL) subcutaneous pen injector (Ozempic) 1 mg subcut QWEEK 06/12/23 [History Last Taken Unknown] tiotropium bromide 18 mcg capsule with inhalation device 1 cap inhalation DAILY 06/12/23 [History Last Taken Unknown] warfarin 5 mg tablet 9 mg PO QHS 06/12/23 [History Last Taken Unknown] Allergy/AdvReac Type Severity Reaction Status Date / Time clindamycin Allergy Rash Verified 06/11/23 22:37 erythromycin base Allergy Rash Verified 06/11/23 22:37 [Erythromycin Base] omalizumab [From Xolair] Allergy Chest Verified 06/11/23 22:37 tightness Penicillins Allergy Rash Verified 06/11/23 22:37 sulfamethoxazole Allergy Chest Verified 06/11/23 22:37 [From Bactrim] tightness trimethoprim [From Bactrim] Allergy Chest Verified 06/11/23 22:37 tightness Sulfa (Sulfonamide AdvReac Unknown Unknown Verified 06/11/23 22:37 Antibiotics) Family History Father Heart disease Diabetes CAD (coronary artery disease) Mother CAD (coronary artery disease) CVA (cerebral vascular accident) Diabetes Brother CAD (coronary artery disease) CVA (cerebral vascular accident) Diabetes Unknown Cancer Grandmother CVA (cerebral vascular accident) Diabetes Grandfather CVA (cerebral vascular accident) Grandmother Myocardial infarction Brother Diabetes Sister Diabetes Surgical History Aortic valve replaced H/O lumbosacral spine surgery History of cardiac catheterization History of section History of hernia repair History of left heart catheterization (LHC) (~01/19/21) History of neck surgery History of rotator cuff surgery Hx of appendectomy Social History household members: spouse housing: apartment pets and animals: Yes Smoking Status: Never smoker second hand exposure: No alcohol intake: current alcohol intake frequency: a few times a week substance use type: does not use caffeine: No what type of physical activity do you participate in: none do you feel safe at home: Yes ROS ROS ED Constitutional Constitutional ED: Denies chills or fever(s) Eyes Eyes: Denies blurry vision or change in vision ENT ENT ED: Denies rhinorrhea or sore throat Cardiovascular Cardiovascular: Denies chest pain or palpitations Respiratory/Chest Respiratory/Chest: Denies cough or dyspnea Gastrointestinal Gastrointestinal: Denies nausea or vomiting Genitourinary Genitourinary ED: Denies dysuria or hematuria Musculoskeletal Musculoskeletal: Reports back pain; Denies neck pain Integumentary Denies abscess or rash Neurologic Neurologic: Reports headache(s), paresthesias and weakness Allergic/Immunologic Allergic/Immunologic ED: Denies mouth swelling or urticaria EXAM Physical Exam Const Vital Signs: 06/11/23 22:38 06/11/23 22:41 06/12/23 00:34 Temperature 97.1 F L Temperature Source Temporal Pulse Rate 89 87 Respiratory Rate 16 13 Respiratory Effort Normal Non-Labored Respiratory Depth Normal Respiratory Pattern Normal Blood Pressure 175/96 H 165/100 H Blood Pressure Mean 122 121 Pulse Ox 97 96 Oxygen Delivery Method Room Air Room Air Room Air 06/12/23 01:53 06/12/23 02:46 06/12/23 02:52 Temperature Temperature Source Pulse Rate 83 87 85 Respiratory Rate 15 12 13 Respiratory Effort Respiratory Depth Respiratory Pattern Blood Pressure 173/84 H 175/82 H 173/85 H Blood Pressure Mean 113 113 114 Pulse Ox 96 99 95 Oxygen Delivery Method Room Air Room Air Room Air 06/12/23 03:58 Temperature Temperature Source Pulse Rate 86 Respiratory Rate 16 Respiratory Effort Respiratory Depth Respiratory Pattern Blood Pressure 171/85 H Blood Pressure Mean 113 Pulse Ox 94 Oxygen Delivery Method Room Air Positive well nourished, well developed and obese General Appearance ED: well developed and NAD Nutritional Appearance: obese HEENT HEENT Narrative: There is a 1.2 cm full-thickness linear laceration across the bridge of the nose. There is no active bleeding noted. There is no bony crepitance or step-off. There are no foreign bodies noted. Eyes PERRL and EOMs intact bilaterally Neck supple General: tenderness Resp normal respiratory effort and clear to auscultation bilaterally Cardio regular rate and regular rhythm GI non-tender and non-distended Palpation: soft Extremity Extremity Narrative: There is tenderness over the right hip. There is no obvious deformity noted. Range of motion was limited in all motions of the right hip secondary to pain. Sensation was decreased to light touch in the right lower leg, ankle, and foot. Sensation was normal above the knee. There is also slight decrease sensation to light touch in the right upper extremity. Strength is 5/5 bilaterally in the upper extremities. There is decreased motion in the right lower extremity secondary to pain. Neuro oriented x3, CN's II-XII intact bilaterally, moves all extremities and no focal motor deficits Yasemin Coma Scale: document GCS findings Spontaneous Obeys Commands Oriented 15 Sensorium / Orientation: alert Motor Exam: strength 5/5 throughout Psych mental status grossly normal and thought process normal MDM MDM MDM Narrative Medical decision making narrative: Differential diagnosis includes closed head injury, intracranial bleeding, cervical spine fracture, cervical sprain, nasal laceration, right hip fracture, contusion, and coagulopathy. CT scan of the brain will be obtained to assess for intracranial bleeding and stroke. CT scan of the cervical spine will be obtained to assess for cervical spine fracture and spondylolisthesis. X-rays of the right hip will be obtained to assess for hip fracture. CBC will be obtained to assess for leukocytosis and anemia. Basic metabolic profile will be obtained to assess for electrolyte abnormality and renal function. PT with INR and PTT will be obtained to assess for coagulopathy. Urinalysis will be obtained to assess for urinary tract infection. EKG will be obtained to assess for cardiac dysrhythmia and cardiac ischemia. Lab Data Attestation: I reviewed the patient's lab results. Lab results narrative: CBC was reviewed and was within normal limits. Basic metabolic profile was reviewed. Potassium was low at 3.0. PT with INR and PTT were reviewed. Pro time was 20.4 and INR is 1.7. PTT was 36.6. High-sensitivity troponin was reviewed and was normal at 10. Urinalysis was reviewed. There is no evidence of urinary tract infection or hematuria. Labs: Laboratory Results - last 24 hr 06/11/23 06/11/23 23:25 23:50 WBC 9.6 RBC 4.96 Hgb 14.7 Hct 44.6 MCV 89.9 MCH 29.6 MCHC 33.0 RDW Std Deviation 49.0 H RDW Coeff of Carmencita 14.9 H Plt Count 263 MPV 10.8 Immature Gran % (Auto) 1.700 H Neut % (Auto) 69.7 Lymph % (Auto) 20.1 Polk % (Auto) 6.8 Eos % (Auto) 0.9 Baso % (Auto) 0.8 Absolute Neuts (auto) 6.7 Absolute Lymphs (auto) 1.93 Nucleated RBC % 0 PT 20.4 H INR 1.7 APTT 36.6 H Sodium 143 Potassium 3.0 L Chloride 107 Carbon Dioxide 27.0 Anion Gap 9 BUN 16 Creatinine 0.62 Estim Creat Clear Calc 80.20 Est GFR (MDRD) Af Amer 125 Est GFR (MDRD) Non-Af 103 BUN/Creatinine Ratio 25.8 H Glucose 217 H Calcium 8.6 Troponin I High Sens 10 Urine Color Yellow Urine Clarity Clear Urine pH 6.0 Ur Specific [place] 1.010 Urine Protein Negative Urine Glucose (UA) 1000 H Urine Ketones Negative Urine Occult Blood Negative Urine Nitrite Negative Urine Bilirubin Negative Urine Urobilinogen Normal Ur Leukocyte Esterase Negative Urine RBC 0 SEEN Urine WBC 0 SEEN Ur Squamous Epith Cells 0 SEEN Urine Bacteria 0 SEEN Urine Mucus 0 SEEN Radiography Chest X-Ray - ED: 1 View, Read by ED Physician, Read by Radiologist and No Acute Disease Diagnostic Testing: Clinical Impression(s) from Imaging Studies Chest X-Ray 06/11/23 23:13 IMPRESSION: No acute pulmonary disease. Electronically Signed: Paulino Barrios MD at 1:27 EDT , Brain CT 06/11/23 23:14 IMPRESSION: undefined Cervical Spine CT 06/11/23 23:14 IMPRESSION: undefined Hip/Pelvis X-Ray 06/11/23 23:14 IMPRESSION: No acute fracture identified. Electronically Signed: Paulino Barrios MD at 1:31 EDT , Knee X-Ray 06/11/23 23:22 IMPRESSION: No acute fracture identified. Small to moderate joint effusion. Electronically Signed: Paulino Barrios MD at 1:35 EDT , Lower Extremity CT 06/12/23 02:05 IMPRESSION: No acute fracture identified. Moderate right knee joint effusion. Electronically Signed: Paulino Barrios MD at 3:41 EDT Reading Location ID and State: [facility] / [place] Tel , Service support , CT scan of the brain was obtained. There is no acute intracranial abnormality. This was interpreted by the radiologist and was also independently reviewed by myself. CT scan of the cervical spine was obtained. There is no acute fracture or spondylolisthesis. There are degenerative changes noted. There is prior hardware in place. There is no fracture of the hardware. This was interpreted by the radiologist and was also independently reviewed by myself. Portable 1 view chest x-ray was obtained. On my independent interpretation, lung gonzalez are clear. There is normal cardiac silhouette. Bony thorax is normal. There is no acute process noted. Radiologist also interpreted the x-ray and agrees. X-ray of the right hip was obtained. There are 3 views. On my independent interpretation, there is no acute fracture or dislocation. There are some degenerative changes noted. Radiologist also interpreted the x-rays and agrees. X-rays of the right knee were obtained. There are 2 views. On my independent interpretation, there is no acute fracture or dislocation. There is a small to moderate joint effusion noted. Radiologist also interpreted the x-rays and agrees. Because of the persistent pain and inability to ambulate, CT scan of the lower extremity was obtained. There is no acute fracture noted. There is a moderate right knee joint effusion. This was interpreted by the radiologist and was also independently reviewed by myself. EKG Initial EKG: Attestation: I personally reviewed and interpreted this EKG as follows: Interpretation: Sinus Rhythm (89), RBBB and Non-Specific ST Changes Comments: EKG was obtained. On my independent interpretation, it shows normal sinus rhythm with a first-degree AV block with a rate of 89. TX interval was 232 ms. QRS normal is 150 ms. QTc interval was 503 ms. There is left axis deviation at -45. There is a right bundle branch block pattern noted. There are nonspecific ST-T wave changes. This was unchanged compared to previous EKG. Prior EKG tracings: available for review Prior: Unchanged (04/01/2023) Management Discussion w/another healthcare provider: Hospitalist Treatment and Re-Evaluation Narrative: Patient was given a tetanus booster. Patient was given injection of morphine and Zofran initially. Patient had minimal improvement of her pain with this. Patient was given a repeat dose of morphine. After x-rays, the nasal laceration was cleaned and closed with Dermabond skin adhesive. Patient tolerated the procedure well. Patient was attempted to ambulate. Patient was unable to ambulate due to the pain. Because of her inability to ambulate, CT scan of the right lower extremity was obtained. This was negative for any occult fracture. Patient does not think she can ambulate or care for herself at home. Because of this and discussed admission to the hospital with the patient and subsequent [facility]. Patient is agreeable with this. Patient states she has had this done before. I discussed the cause of the numbness to her right lower leg. It appears to be consistent with neuropathy since that there is a stocking glove distribution. This does not appear to be coming from a stroke since there are no other neurologic findings. Case will be discussed with the hospitalist. Patient will be admitted to the hospital. All questions were answered. Procedures Lacerations nose: Length: 1.2 cm Depth: Skin Shape: Linear Prep: Sterile Conditions and Chlorhexadine Laceration repair: Dermabond and Wound explored Discharge Plan Dx/Rx/DC Orders Clinical Impression: Closed head injury, Peripheral neuropathy, Unable to ambulate, Fall Disposition Disposition: Acute Care Hospital [facility]
--- NOTE | 2023-06-11 23:13 | RAD_ITS ---
INDICATION: Cough EXAMINATION: Frontal view of the chest COMPARISON: Chest x-ray November 10, 2022. FINDINGS: Frontal view of the chest was obtained. The cardiac silhouette is not enlarged. No confluent airspace disease. No pneumothorax. Hardware in the cervical spine. Right shoulder prosthesis. No acute fracture identified. RAD/Chest 1 View (Portable) IMPRESSION: No acute pulmonary disease. Electronically Signed: Paulino Barrios MD at 1:27 EDT ,
--- NOTE | 2023-06-11 23:14 | CT_ITS ---
EXAM: CT brain without IV contrast. HISTORY: Trauma TECHNIQUE: No intravenous contrast. A radiation dose optimization technique was used for this scan. COMPARISON: None. LIMITATIONS: None. BRAIN: Mild involutional change. Mild low attenuation bilaterally within the deep white matter, likely secondary to chronic microvascular ischemia. VENTRICLES: No hydrocephalus. EXTRA-AXIAL SPACES: No acute hemorrhage. CALVARIUM/SKULL BASE: No acute fracture. FACE/SINUSES: Fatty atrophy of the partially visualized parotid glands bilaterally. A 2.2 x 1.4 cm cystic lesion is in the right parotid gland, similar in appearance to the prior exam. SOFT TISSUES: Normal. OTHER: None. CONCLUSION: No acute intracranial abnormality. 2.2 x 1.4 cm cystic lesion in the right parotid gland. MRI or CT of the neck with contrast is recommended. Electronically Signed: Paulino Barrios MD at 1:11 EDT , CT/Brain/Head without Contrast IMPRESSION: undefined
--- NOTE | 2023-06-11 23:14 | CT_ITS ---
EXAM: CT cervical spine. HISTORY: Trauma TECHNIQUE: No intravenous contrast. A radiation dose optimization technique was used for this scan. COMPARISON: CTA neck August 11, 2022. LIMITATIONS: Streak artifact from the spinal hardware limits visualization of the adjacent structures.. FRACTURES: No acute fracture identified. Streak artifact limits evaluation. POSTSURGICAL CHANGE: Posterior fusion with pedicle screws bilaterally from C3 through C7. Vertebral body placement hardware from C3-4 through C6-7. SPINAL CANAL: No gross stenosis identified. DEGENERATIVE CHANGE: Moderate degenerative change. SOFT TISSUE: Normal. OTHER: Heterogeneous thyroid gland with probable underlying subcentimeter nodules. CONCLUSION: Postsurgical changes. Streak artifact from the hardware limits visualization. No acute fracture identified. Electronically Signed: Paulino Barrios MD at 1:23 EDT , CT/Spine Cervical without Contras IMPRESSION: undefined
--- NOTE | 2023-06-11 23:14 | RAD_ITS ---
INDICATION: Injury/Pain EXAMINATION/TECHNIQUE: X-RAY - XR Hip Unilateral with Pelvis when performed; 3 Views COMPARISON: XR right hip April 28, 2023 FINDINGS: A frontal view of the pelvis as well as frontal and lateral views of the right hip were obtained. No acute fracture is identified. No dislocation. Mild degenerative changes of the hips bilaterally. Extensive vascular calcifications. RAD/HIP, UNI W/ Pelvis 2-3 Views IMPRESSION: No acute fracture identified. Electronically Signed: Paulino Barrios MD at 1:31 EDT ,
--- NOTE | 2023-06-11 23:15 | EKG12_ITS ---
Test Reason : FALL Blood Pressure : / mmHG Vent. Rate : 089 BPM Atrial Rate : 089 BPM P-R Int : 232 ms QRS Dur : 150 ms QT Int : 414 ms P-R-T Axes : 059 -45 029 degrees QTc Int : 503 ms Sinus rhythm with 1st degree A-V block Left axis deviation Right bundle branch block Abnormal ECG Confirmed by ABUNDIO MAURICIO, SUKHI ([id number]), editor managing director JIM LAKHANI ([id number]) on 06/30/2023 2:08:02 PM Referred By: Confirmed By:DIDI DEL CASTILLO MD
--- NOTE | 2023-06-11 23:22 | RAD_ITS ---
INDICATION: Injury/Pain EXAMINATION/TECHNIQUE: X-RAY - RIGHT XR Knee 2 Views 2 VIEWS COMPARISON: None. FINDINGS: Frontal and lateral views of the right knee were obtained. No acute fracture identified. Mild tricompartmental degenerative changes. Enthesophytes at the superior and inferior patella. Small to moderate knee joint effusion. Extensive vascular calcifications. RAD/Knee 1 or 2 Views IMPRESSION: No acute fracture identified. Small to moderate joint effusion. Electronically Signed: Paulino Barrios MD at 1:35 EDT ,
[2023-06-11] MEDS: Diphth,Pertuss(Acell),Tet Vac 0.5 ML Vial IM (23:27)
[2023-06-11] MEDS: Ondansetron 4 MG/2 ML Vial IV (23:30)
[2023-06-11] MEDS: Morphine 4 MG/ML Syringe IV (23:32)
[2023-06-11 23:53] LABS: Absolute Lymphocyte Count 1.93 X10^3/uL (0.83-4.51); Absolute Neutrophil Count 6.7 X10^3/uL (2.0-7.7); Basophil# 0.08 X10^3/uL; Basophil% 0.8 % (0-1); Eosinophil# 0.09 X10^3/uL; Eosinophils% 0.9 % (0-5); Hematocrit 44.6 % (37-47); Hemoglobin 14.7 g/dL (12.0-15.0); Lymphocyte # 1.93 X10^3/ul (0.83-4.51); Lymphocyte % 20.1 % (19-41); Mean Corpuscular Hgb 29.6 pg (27.0-32.0); Mean Corpuscular Volume 89.9 fL (81-99); Mean Platelet Vol. 10.8 fl (6.2-12.0); Monocyte# 0.65 X10^3/uL; Monocyte% 6.8 % (0-10); NRBC Flagged by Analyzer 0 % (0-5); Neutrophil # 6.67 X10^3/uL (2.7-7.7); Neutrophil % 69.7 % (47-70); Platelet Count 263 K/mm3 (150-450); RBC Distribution Width CV 14.9 % (11.6-14.6); Red Blood Count 4.96 M/mm3 (4.2-5.4); White Blood Count 9.6 K/mm3 (4.4-11.0)
[2023-06-11 23:57] LABS: Bacteria 0 SEEN /hpf (None Seen); Mucous, Urine 0 SEEN /hpf (<or=2+); Red Blood Cells-Urine 0 SEEN /hpf (0-5); Squamous Epithelial Cells - UA 0 SEEN /hpf (5-10); White Blood Cells 0 SEEN /hpf (0-5)
[2023-06-11 23:58] LABS: Color, Urine Yellow (Yellow); Glucose, Dipstick 1000 mg/dl (Normal); Ketone-Dipstick Negative (Negative); Leukocyte Esterase-Dipstick Negative /ul (Negative); Nitrite-Dipstick Negative (Negative); Occult Blood-Urine Negative /ul (Negative); Protein-Dipstick Negative (Negative); Urine Bilirubin Dipstick Negative (Negative); Urine Clarity Clear (Clear); Urine Urobilinogen Normal (Normal)
[2023-06-11 23:58] LABS: Anion Gap 9 (5-15); BUN 16 mg/dL (7-18); BUN/Creat Ratio 25.8 RATIO (10-20); Calcium,Total 8.6 mg/dL (8.5-10.1); Chloride 107 mmol/L (98-107); Creatinine, Serum 0.62 mg/dL (0.55-1.02); EST Glomerular Filtration Rate 103 mL/min (>60); Est Glom Filt Rate - Afr Amer 125 mL/min (>60); Glucose 217 mg/dL (74-106); Sodium Level 143 mmol/L (136-145); Troponin-I HS 10 pg/mL (3.0-54.0)
[2023-06-12] VITALS (12 sets, daily range): BP systolic 122–184; BP diastolic 60–100; PULSE 66–87; RESP 12–20; TEMP 36.4–36.7; O2SAT 94–99; BMI 38.3
[2023-06-12 00:09] LABS: International Normalized Ratio 1.7; Prothrombin Time (Protime)PT. 20.4 SECONDS (11.7-14.9)
[2023-06-12 00:10] LABS: Partial Thromboplast Time 36.6 Seconds (24.1-36.2)
[2023-06-12] MEDS: Morphine 4 MG/ML Syringe IV ×3 (00:30→17:24)
--- NOTE | 2023-06-12 02:05 | CT_ITS ---
CT RIGHT LOWER EXTREMITY CLINICAL INDICATION: Pain TECHNIQUE: Axial CT images of the RIGHT lower extremity was performed without IV contrast material. Coronal and sagittal reformats were provided. COMPARISON: None. FINDINGS: Mild degenerative changes of the right hip. No hip fracture or dislocation. Mild tricompartmental degenerative changes of the right knee. No acute fracture identified. Moderate knee joint effusion. 2 x 1 cm Mendosa''s cyst. Extensive vascular calcifications. CT/Extremity Lower without Contra IMPRESSION: No acute fracture identified. Moderate right knee joint effusion. Electronically Signed: Paulino Barrios MD at 3:41 EDT ,
[2023-06-12] MEDS: HYDROmorphone 1 MG/ML Syringe 0.5 MG IV (02:44)
--- NOTE | 2023-06-12 05:04 | PCM.HP.STD ---
HPI - General General Date of Admission: 06/12/23 Date of Service: 06/12/23 Chief Complaint: Fall HPI Narrative NATHALIE HERMAN, is a 62 F with a significant history of multiple DVT and two PEs; severe aortic valve stenosis status post porcine valve replacement who presents to emergency department with a fall. Patient was moving from a kitchen to the bathroom. Her shoes got caught up then she fell face first and eventually landed on her right side. She reports excruciating pain in her head. She reports numbness and tingling in her right lower extremity. At the emergency department ED doctor placed Dermabond on a laceration at her nasal bridge. Also she was given a tetanus injection at the ED. It is not uncommon for her to have numbness and tingling in the lower extremity. Recently her Coumadin was held because of a shot in her spine. She reported that she has completed a second dose of antibiotics recently for UTI and yet she continues to have dysuria. At the emergency department patient could not ambulate so decision was made to hospitalize patient as she could not bear weight on her right lower extremity. However imaging of the right lower extremity did not show any fracture. [facility]LY [facility] Medical History Anxiety Arthritis Asthma Atherosclerotic heart disease of [place] coronary artery without angina pectoris Back pain Back pain with sciatica Bilateral carotid bruits BiPAP (biphasic positive airway pressure) dependence Body mass index 45.0-49.9, adult Cardiology follow-up encounter Carotid artery disease COPD (chronic obstructive pulmonary disease) COVID-19 Depression Diabetes Diastolic heart failure Discoloration of skin Easy bruising Essential hypertension Excessive bleeding High cholesterol History of DVT (deep vein thrombosis) History of echocardiogram History of edema History of pain when walking History of pulmonary embolism History of steroid therapy History of stress test History of transcatheter aortic valve replacement (TAVR) (~04/19/21) Hx of transesophageal echocardiography (YOLANDA) for monitoring Insulin dependent diabetes mellitus Leg cramps Migraine headache Morbid obesity Non-smoker Nonrheumatic aortic (valve) stenosis On home oxygen therapy CHELSEY treated with BiPAP Personal history of anaphylaxis Positive FIT (fecal immunochemical test) Pulmonary embolism Restless legs Rotator cuff arthropathy of right shoulder Shortness of breath on exertion TIA (transient ischemic attack) Type 2 diabetes mellitus Home Medications fluoxetine 20 mg capsule 40 mg PO DAILY anxiety 01/26/14 [History Last Taken 04/05/21] potassium chloride 10 mEq tablet,extended release(part/cryst) 10 meq PO BID Potassium Chloride 01/06/16 [History Last Taken 08/11/22] Ca 600 mg-D3 800 unit-magnes 40 py-utir-ssh-angel-boron chewable tablet 1 ea PO DAILY vitamins 05/27/16 [History Last Taken 04/05/21] fenofibrate nanocrystallized 145 mg tablet 72.5 mg PO QHS cholesterol 04/26/19 [History Last Taken 04/04/21] ergocalciferol (vitamin D2) 1,250 mcg (50,000 unit) capsule 50,000 unit PO WE supplement 08/09/19 [History Last Taken 04/04/21] trazodone 50 mg tablet 50 mg PO QHS sleep 08/09/19 [History Last Taken 04/04/21] epinephrine 0.3 mg/0.3 mL injection, auto-injector 0.3 mg (0.3 mL) IM X1 PRN Anaphylaxis #1 ea 01/18/20 [Rx Last Taken Unknown] albuterol sulfate 2.5 mg/3 mL (0.083 %) solution for nebulization 2.5 mg (3 mL) inhalation Q2H PRN PRN dyspnea, wheezing #180 mL 04/24/20 [Rx Last Taken 07/02/21 09:00] albuterol sulfate 90 mcg/actuation aerosol inhaler 2 inh inhalation Q4H PRN PRN Sob &/Or Wheezing #18 grams 04/24/20 [Rx Last Taken 04/29/22] montelukast 10 mg tablet 10 mg PO DAILY allergies/asthma #30 tabs 12/07/20 [Rx Last Taken 04/05/21] alendronate 70 mg tablet 70 mg PO WE bone health 12/21/20 [History Last Taken 08/07/22] nystatin 100,000 unit/gram topical powder 1 applic topical BID PRN PRN YEAST 12/21/20 [History Last Taken 04/05/21] ondansetron 4 mg disintegrating tablet 4 mg PO Q8H PRN Nausea 12/21/20 [History Last Taken Unknown] beclomethasone dipropionate 80 mcg/actuation HFA breath activated aerosol 1 inh inhalation BID Asthma 03/22/21 [History Last Taken 07/02/21 09:00] budesonide-formoterol HFA 160 mcg-4.5 mcg/actuation aerosol inhaler 2 puff inhalation BID asthma 03/22/21 [History Last Taken 04/29/22] furosemide 40 mg tablet 40 mg PO MOWEFR diuresis 03/22/21 [History Last Taken 04/05/21] ipratropium 0.5 mg-albuterol 3 mg (2.5 mg base)/3 mL nebulization soln 3 ml inhalation BID asthma 03/22/21 [History Last Taken 04/05/21] tizanidine 4 mg capsule 4 mg PO Q8H PRN muscle relaxer 03/22/21 [History Last Taken 02/10/23] cyanocobalamin (vitamin B-12) 100 mcg tablet (Vitamin B-12) 100 mcg PO DAILY supplement 04/05/21 [History Last Taken 04/05/21] melatonin 10 mg tablet 10 mg PO QHS sleep 04/05/21 [History Last Taken 04/04/21] oxycodone-acetaminophen 5 mg-325 mg tablet (Percocet) 1 tab PO Q6H PRN PRN Pain 04/05/21 [History Last Taken 08/10/22] pregabalin 150 mg capsule 150 mg PO TID nerve pain 04/05/21 [History Last Taken 08/11/22] diltiazem HCl 240 mg capsule,extended release 24 hr 360 mg PO DAILY BP 04/06/21 [History Last Taken 07/02/21 09:00] meclizine 25 mg tablet 25 mg PO DAILY PRN Vertigo 05/04/21 [History Last Taken Unknown] docusate sodium 100 mg capsule 100 mg PO BID stool softener 08/17/21 [History Last Taken Unknown] magnesium 250 mg tablet 250 mg PO DAILY supplement 08/17/21 [History Last Taken Unknown] L.acidophil-L.casei-B.bifid-B.longum-FOS 2 billion cell-50 mg capsule (Probiotic Blend) 1 cap PO DAILY supplement 11/07/21 [History Last Taken Unknown] ascorbate calcium (vitamin C) 500 mg tablet 1,000 mg PO DAILY vitamin 11/07/21 [History Last Taken Unknown] chromium picolinate 200 mcg tablet 200 mcg PO DAILY supplement 11/07/21 [History Last Taken Unknown] clobetasol 0.05 % topical cream 1 applic topical PRN PRN RASH/ITCHING 11/07/21 [History Last Taken Unknown] coconut oil 1,000 mg capsule 1,000 mg PO DAILY supplement 11/07/21 [History Last Taken Unknown] cyclobenzaprine 5 mg tablet 10 mg PO Q8H PRN MUSCLE CRAMPING 11/07/21 [History Last Taken 08/11/22] guaifenesin 400 mg tablet (Mucus Relief) 400 mg PO Q4H PRN PRN Cough 11/07/21 [History Last Taken Unknown] levocetirizine 5 mg tablet 5 mg PO DAILY allergies 11/07/21 [History Last Taken Unknown] polyethylene glycol 3350 17 gram/dose oral powder (Miralax) 17 g PO DAILY PRN PRN Constipation 11/07/21 [History Last Taken Unknown] vitamin K2 45 mcg capsule 100 mcg PO DAILY vitamin 11/07/21 [History Last Taken Unknown] zinc amino acid chelate 50 mg tablet 100 mg PO DAILY supplement 11/07/21 [History Last Taken Unknown] insulin glargine U-300 conc 300 unit/mL (1.5 mL) subcutaneous pen (Toujeo SoloStar U-300 Insulin) 50 unit subcut BID DIABETES 04/29/22 [History Last Taken 04/28/22 25 MG] dicyclomine 10 mg capsule 10 mg PO BID diarrhea/cramps #60 caps 07/01/22 [Rx Last Taken Unknown] omeprazole 40 mg capsule,delayed release 40 mg PO BID #180 caps 07/01/22 [Rx Last Taken Unknown] dapagliflozin propanediol 10 mg tablet (Farxiga) 10 mg PO DAILY diabetes 08/11/22 [History Last Taken 08/11/22] moexipril 15 mg tablet 15 mg PO DAILY 08/11/22 [History Last Taken Unknown] pitavastatin calcium 4 mg tablet (Livalo) 4 mg PO DAILY cholesterol 08/11/22 [History Last Taken Unknown] alendronate 70 mg tablet (Fosamax) 70 mg PO QWEEK 06/12/23 [History Last Taken Unknown] cinnamon bark 500 mg capsule (Cinnamon) 1,000 mg PO DAILY 06/12/23 [History Last Taken Unknown] multivitamin (Daily Multi-Vitamin tablet) 1 tab PO DAILY 06/12/23 [History Last Taken Unknown] omeprazole 40 mg capsule,delayed release 40 mg PO BID 06/12/23 [History Last Taken Unknown] quercetin 500 mg capsule mg PO 06/12/23 [History Last Taken Unknown] semaglutide 1 mg/dose (4 mg/3 mL) subcutaneous pen injector (Ozempic) 1 mg subcut QWEEK 06/12/23 [History Last Taken Unknown] tiotropium bromide 18 mcg capsule with inhalation device 1 cap inhalation DAILY 06/12/23 [History Last Taken Unknown] warfarin 5 mg tablet 9 mg PO QHS 06/12/23 [History Last Taken Unknown] Allergy/AdvReac Type Severity Reaction Status Date / Time clindamycin Allergy Rash Verified 06/11/23 22:37 erythromycin base Allergy Rash Verified 06/11/23 22:37 [Erythromycin Base] omalizumab [From Xolair] Allergy Chest Verified 06/11/23 22:37 tightness Penicillins Allergy Rash Verified 06/11/23 22:37 sulfamethoxazole Allergy Chest Verified 06/11/23 22:37 [From Bactrim] tightness trimethoprim [From Bactrim] Allergy Chest Verified 06/11/23 22:37 tightness Sulfa (Sulfonamide AdvReac Unknown Unknown Verified 06/11/23 22:37 Antibiotics) Family History Father Heart disease Diabetes CAD (coronary artery disease) Mother CAD (coronary artery disease) CVA (cerebral vascular accident) Diabetes Brother CAD (coronary artery disease) CVA (cerebral vascular accident) Diabetes Unknown Cancer Grandmother CVA (cerebral vascular accident) Diabetes Grandfather CVA (cerebral vascular accident) Grandmother Myocardial infarction Brother Diabetes Sister Diabetes Surgical History Aortic valve replaced H/O lumbosacral spine surgery History of cardiac catheterization History of section History of hernia repair History of left heart catheterization (LHC) (~01/19/21) History of neck surgery History of rotator cuff surgery Hx of appendectomy Social History household members: spouse housing: apartment pets and animals: Yes Smoking Status: Never smoker second hand exposure: No alcohol intake: current alcohol intake frequency: a few times a week substance use type: does not use caffeine: No what type of physical activity do you participate in: none do you feel safe at home: Yes ROS ROS Narrative Pertinent positives and pertinent negatives as noted in HPI. All other systems were reviewed and are negative Vital Signs Vital Signs Vital Signs: 06/11/23 22:38 06/11/23 22:41 06/12/23 00:34 Temperature 97.1 F L Temperature Source Temporal Pulse Rate 89 87 Respiratory Rate 16 13 Respiratory Effort Normal Non-Labored Respiratory Depth Normal Respiratory Pattern Normal Blood Pressure 175/96 H 165/100 H Blood Pressure Mean 122 121 Pulse Ox 97 96 Oxygen Delivery Method Room Air Room Air Room Air 06/12/23 01:53 06/12/23 02:46 06/12/23 02:52 Temperature Temperature Source Pulse Rate 83 87 85 Respiratory Rate 15 12 13 Respiratory Effort Respiratory Depth Respiratory Pattern Blood Pressure 173/84 H 175/82 H 173/85 H Blood Pressure Mean 113 113 114 Pulse Ox 96 99 95 Oxygen Delivery Method Room Air Room Air Room Air 06/12/23 03:58 Temperature Temperature Source Pulse Rate 86 Respiratory Rate 16 Respiratory Effort Respiratory Depth Respiratory Pattern Blood Pressure 171/85 H Blood Pressure Mean 113 Pulse Ox 94 Oxygen Delivery Method Room Air Weight Weight: 112.3 kg Body Mass Index (BMI) 42.5 Physical Exam Narrative Physical exam: General: Obese Head: Normocephalic, atraumatic, no tenderness Eyes: Vision is grossly intact. EOMI ENT, no trauma, moist mucous membranes, no rhinorrhea Neck: Nontender, No thyromegaly. CVS: Regular rate and rhythm. S1-S2 present. No murmur, gallop or rub. Respiratory : clear to auscultation bilaterally, chest wall nontender Abdomen: Soft, nontender, nondistended, normal bowel sounds, no masses : Deferred Back: Nontender, no CVA tenderness, no midline spinal tenderness, deformities, step-offs Extremities: Able to raise left lower extremity. Unable to raise right lower extremity. No sensation below right knee. Sensation below left knee. Skin: Normal color, no trauma, abrasions Neuro: Alert, oriented, cranial nerves II through XII grossly intact. Psychiatry: Normal mood. Normal affect. Not depressed. Not anxious. Results Lab / Micro Data 06/11/23 23:25 06/11/23 23:25 Labs: Laboratory Results - last 24 hr 06/11/23 23:25: WBC 9.6, RBC 4.96, Hgb 14.7, Hct 44.6, MCV 89.9, MCH 29.6, MCHC 33.0, RDW Std Deviation 49.0 H, RDW Coeff of [place] 14.9 H, Plt Count 263, MPV 10.8, Immature Gran % (Auto) 1.700 H, Neut % (Auto) 69.7, Lymph % (Auto) 20.1, [place] % (Auto) 6.8, Eos % (Auto) 0.9, Baso % (Auto) 0.8, Absolute Neuts (auto) 6.7, Absolute Lymphs (auto) 1.93, Nucleated RBC % 0, PT 20.4 H, INR 1.7, APTT 36.6 H, Sodium 143, Potassium 3.0 L, Chloride 107, Carbon Dioxide 27.0, Anion Gap 9, BUN 16, Creatinine 0.62, Estim Creat Clear Calc 80.20, Est GFR (MDRD) Af Amer 125, Est GFR (MDRD) Non-Af 103, BUN/Creatinine Ratio 25.8 H, Glucose 217 H, Calcium 8.6, Troponin I High Sens 10 06/11/23 23:50: Urine Color Yellow, Urine Clarity Clear, Urine pH 6.0, Ur Specific [place] 1.010, Urine Protein Negative, Urine Glucose (UA) 1000 H, Urine Ketones Negative, Urine Occult Blood Negative, Urine Nitrite Negative, Urine Bilirubin Negative, Urine Urobilinogen Normal, Ur Leukocyte Esterase Negative, Urine RBC 0 SEEN, Urine WBC 0 SEEN, Ur Squamous Epith Cells 0 SEEN, Urine Bacteria 0 SEEN, Urine Mucus 0 SEEN Radiology Impression Chest X-Ray 06/11/23 23:13 IMPRESSION: No acute pulmonary disease. Electronically Signed: Paulino Barrios MD at 1:27 EDT , Brain CT 06/11/23 23:14 IMPRESSION: undefined Cervical Spine CT 06/11/23 23:14 IMPRESSION: undefined Hip/Pelvis X-Ray 06/11/23 23:14 IMPRESSION: No acute fracture identified. Electronically Signed: Paulino Barrios MD at 1:31 EDT , Knee X-Ray 06/11/23 23:22 IMPRESSION: No acute fracture identified. Small to moderate joint effusion. Electronically Signed: Paulino Barrios MD at 1:35 EDT , Lower Extremity CT 06/12/23 02:05 IMPRESSION: No acute fracture identified. Moderate right knee joint effusion. Electronically Signed: Paulino Barrios MD at 3:41 EDT , Assessment & Plan Assessment/Plan (1) Unable to ambulate: (2) Closed head injury: QUALIFIERS: Encounter type: initial encounter Qualified Code(s): S09.90XA - Unspecified injury of head, initial encounter (3) Fall: QUALIFIERS: Encounter type: initial encounter Qualified Code(s): W19.XXXA - Unspecified fall, initial encounter PLAN: Plan Fall/Inability to ambulate/close head injury/Right knee contusion CT of the head shows no acute bleed But with a cystic lesion in the right parotid gland. No indication for further imaging at this time. Interpretation of Right Lower extremity CT by radiologist: No acute fracture identified but with moderate right knee joint effusion.Lower extremity CT was independently interpreted, agrees. Lower extremity CT is consistent with knee x-ray. PT and OT consult PRN pain medicine ordered. History of PE and DVT INR is subtherapeutic. Escalate Coumadin dose. Bridge with Lovenox.Trend INR Diabetes mellitus Blood glucose is not within goal Continue home oral hypoglycemic regimen Accu-Chek and correction scale insulin ordered. cotBasal insulin continued. Hypertension Blood pressure is not within goal Continue home medication. PRN Hydralazine ordered. Trend blood pressures Controlled pain. DVT prophylaxis: Lovenox and Coumadin as above. Time spent in the patient's overall evaluation,decision-making process, review of diagnostic data, adjustment of management, discussion with other providers, nursing nursing and ancillary staff involved in patient's care documentation, 75 minutes. Charges/Coding Visit Charges Inpatient E&M: 64182 Init Hosp L3
[2023-06-12] MEDS: Potassium Chloride Oral Tablet 20 MEQ 40 MEQ PO (05:31)
[2023-06-12] MEDS: Acetaminophen 325 MG Tablet 650 MG PO (06:54)
[2023-06-12] MEDS: Dicyclomine 10 MG Capsule PO ×2 (06:55→15:47)
[2023-06-12 07:31] LABS: Bedside Glucose 115 mg/dL (74-106)
--- NOTE | 2023-06-12 07:39 | NURSING ---
After discussion with day shift RN, Katherine, we decided that she will give patient's blood pressure meds soon. So, this RN will not give IV hydralazine.
[2023-06-12] MEDS: Ondansetron 4 MG/2 ML Vial IV (07:53)
[2023-06-12] MEDS: 0.9% Saline Lock 10 ML Syringe IV ×2 (07:53→17:24)
[2023-06-12] MEDS: Lisinopril 20 MG Tablet PO (07:54)
[2023-06-12] MEDS: Pantoprazole Sodium 40 MG Tablet PO ×2 (07:54→21:33)
[2023-06-12] MEDS: Empagliflozin 25 MG Tablet PO (07:54)
[2023-06-12] MEDS: Multivitamins,Therapeutic Tablet 1 TABLET PO (07:54)
[2023-06-12] MEDS: dilTIAZem CD 180 MG Capsule 360 MG PO (07:54)
--- NOTE | 2023-06-12 08:27 | PCM.PN.HOSP ---
Reason for Visit Reason for Visit: Diagnoses Difficulty in walking, not elsewhere classified (06/12/23) Unspecified injury of head, initial encounter (06/12/23) Unspecified fall, initial encounter (06/12/23) Subjective Subjective Tripped on something at home, landing flat on her face. Subsequently, developed back pain. Pain and numbness down right leg. Objective Data Objective Data Vital Signs: Vital Signs Temp Pulse Resp BP Pulse Ox O2 Del Method 36.5 C L 80 16 178/76 H 95 Room Air 06/12/23 05:56 06/12/23 05:56 06/12/23 05:56 06/12/23 05:56 06/12/23 05:56 06/12/23 05:56 Oxygen Delivery Method Room Air Weight: 101.4 kg Body Mass Index (BMI) 38.3 Lab / Micro Data 06/11/23 23:25 06/11/23 23:25 Labs: Laboratory Results - last 24 hr 06/11/23 23:25: WBC 9.6, RBC 4.96, Hgb 14.7, Hct 44.6, MCV 89.9, MCH 29.6, MCHC 33.0, RDW Std Deviation 49.0 H, RDW Coeff of [place] 14.9 H, Plt Count 263, MPV 10.8, Immature Gran % (Auto) 1.700 H, Neut % (Auto) 69.7, Lymph % (Auto) 20.1, [place] % (Auto) 6.8, Eos % (Auto) 0.9, Baso % (Auto) 0.8, Absolute Neuts (auto) 6.7, Absolute Lymphs (auto) 1.93, Nucleated RBC % 0, PT 20.4 H, INR 1.7, APTT 36.6 H, Sodium 143, Potassium 3.0 L, Chloride 107, Carbon Dioxide 27.0, Anion Gap 9, BUN 16, Creatinine 0.62, Estim Creat Clear Calc 80.20, Est GFR (MDRD) Af Amer 125, Est GFR (MDRD) Non-Af 103, BUN/Creatinine Ratio 25.8 H, Glucose 217 H, Calcium 8.6, Troponin I High Sens 10 06/11/23 23:50: Urine Color Yellow, Urine Clarity Clear, Urine pH 6.0, Ur Specific [place] 1.010, Urine Protein Negative, Urine Glucose (UA) 1000 H, Urine Ketones Negative, Urine Occult Blood Negative, Urine Nitrite Negative, Urine Bilirubin Negative, Urine Urobilinogen Normal, Ur Leukocyte Esterase Negative, Urine RBC 0 SEEN, Urine WBC 0 SEEN, Ur Squamous Epith Cells 0 SEEN, Urine Bacteria 0 SEEN, Urine Mucus 0 SEEN 06/12/23 06:58: POC Glucose 115 H Radiography Diagnostic Testing: Radiology Impression Chest X-Ray 06/11/23 23:13 IMPRESSION: No acute pulmonary disease. Electronically Signed: Paulino Barrios MD at 1:27 EDT Reading Location ID and State: [facility] / [place] Tel , Service support , Brain CT 06/11/23 23:14 IMPRESSION: undefined Cervical Spine CT 06/11/23 23:14 IMPRESSION: undefined Hip/Pelvis X-Ray 06/11/23 23:14 IMPRESSION: No acute fracture identified. Electronically Signed: Paulino Barrios MD at 1:31 EDT Reading Location ID and State: [facility] / [place] Tel , Service support , Knee X-Ray 06/11/23 23:22 IMPRESSION: No acute fracture identified. Small to moderate joint effusion. Electronically Signed: Paulino Barrios MD at 1:35 EDT Reading Location ID and State: [employer] / [place] Tel , Service support , Lower Extremity CT 06/12/23 02:05 IMPRESSION: No acute fracture identified. Moderate right knee joint effusion. Electronically Signed: Paulino Barrios MD at 3:41 EDT Reading Location ID and State: [employer] / [place] Tel , Service support , Physical Exam Const alert and no apparent distress HEENT head/scalp atraumatic Cardio regular rate, regular rhythm, S1 normal heart sound and S2 normal heart sound GI normal to inspection, nondistended, normoactive bowel sounds, soft to palpation, non-tender and non-distended Extremity Extremity Narrative: paraspinal muscle tenderness. Neuro Neuro Narrative: decreased sensation on RLE compared to left. Assessment & Plan Assessment/Plan (1) Debility: PLAN: PT and OT consult May need SNF. (2) Fall: QUALIFIERS: Encounter type: initial encounter Qualified Code(s): W19.XXXA - Unspecified fall, initial encounter PLAN: CT of the head shows no acute bleed But with a cystic lesion in the right parotid gland. No indication for further imaging at this time. Interpretation of Right Lower extremity CT by radiologist: No acute fracture identified but with moderate right knee joint effusion. Lower extremity CT is consistent with knee x-ray. (3) Back pain: QUALIFIERS: Back pain location: low back pain Chronicity: acute Back pain laterality: bilateral Sciatica presence: with sciatica Sciatica laterality: sciatica of right side Qualified Code(s): M54.41 - Lumbago with sciatica, right side PLAN: paraspinal muscle tenderness, but also with radicular pain given her history of back pain, back surgery, will check an MRI of low back. PLAN: Plan Chronic conditions: History of PE and DVT INR is subtherapeutic. Escalate Coumadin dose. Bridge with Lovenox.Trend INR Diabetes mellitus type 2: Blood glucose is not within goal. Continue home oral hypoglycemic regimen. Accu-Chek and correction scale insulin ordered. cotBasal insulin continued. Hypertension. Blood pressure is not within goal. Continue home medication. PRN Hydralazine ordered. Trend blood pressures DVT prophylaxis: Lovenox and Coumadin as above. Charges/Coding Visit Charges Inpatient E&M: 48221 Subs Hosp L2
[2023-06-12] MEDS: Polyethylene Glycol 3350 17 GM PACKET PO (09:30)
[2023-06-12] MEDS: Oxycodone/Apap 5/325 Tablet PO (09:30)
[2023-06-12] MEDS: Docusate Sodium 100 MG Capsule PO ×2 (09:30→21:33)
[2023-06-12] MEDS: Potassium Chloride Oral Tablet 10 MEQ PO ×2 (09:30→21:33)
[2023-06-12] MEDS: tiZANidine HCl 2 MG Tablet 4 MG PO ×2 (09:31→17:05)
[2023-06-12] MEDS: Loratadine 10 MG Tablet PO (09:32)
[2023-06-12] MEDS: Enoxaparin 120 MG/0.8 ML Syringe 112 MG SC ×2 (09:32→21:32)
[2023-06-12] MEDS: Ascorbic Acid 500 MG Tablet 1000 MG PO (09:33)
[2023-06-12] MEDS: Magnesium Chloride 64 MG Delay Rel.Tablet 128 MG PO (09:33)
[2023-06-12] MEDS: Montelukast 10 MG Tablet PO (09:34)
[2023-06-12] MEDS: Fluoxetine HCl 40 MG CAPSULE PO (09:34)
[2023-06-12] MEDS: Insulin Glargine-YFGN 100 UNIT/ML Pen 50 UNIT SC ×2 (09:41→21:32)
[2023-06-12 09:52] LABS: Vitamin D,25 Hydroxy 53.4 ng/mL
[2023-06-12 10:02] LABS: Bedside Glucose 171 mg/dL (74-106)
--- NOTE | 2023-06-12 10:35 | CASEMGMT ---
Addendum entered by Janak Mesa 06/12/23 15:32: Brittany STROUD, isabell aware pt has waiver program, CM, [employer]'s, and MOW's. Original Note: RN?CM?TRAVELER CHANGER?CM?to room to meet with patient for initial transition planning/care coordination?assessment.?RN?CM?introduced self and role at [facility].? Pt voices understanding and consents to?assessment?at this time.? Pt resting in bed in no distress at this time.? Pt is A/O at this time and answers all questions appropriately.?? Care providers, pharmacy, and demographics verified/updated at this time. PCP: Dr Soria Specialists: CATIE/cardiology, Dr Lui-pulmonology, Dr Go-pain mgnt, Dr Cohen-dermatology, Dr Alcantar-GI. ENT Preferred Pharmacy: [facility] Retail Insurance:[email or web address] Prescription Benefit:?Yes Living Will/HPOA:?Pt has both LW and HCPOA, who is her , Alirio. LNOK: , Alirio. Daughter, Alicia. Son, Fermín. Living Arrangements: Lives w/her in 1st-floor apartment w/no steps to enter. Pt independent w/toileting self. Pt manages her own medications. Has waiver program. CM is Dariana Peres. Home Health aides from [employer] [facility]- for 3 hrs/day that assist w/bathing and dressing and home mgnt tasks. Receives MOW. Transportation:?Pt states she has been driving this past year. DME: States has the following DME:?shower chair, cane, rollator, W/C, medical alert, lift chair, grab bars, functioning glucometer w/supplies, pulse ox, nebulizer, O2 @ 2 l/m @ HS--bleed-in through BIPAP. ? Pt states no need for further DME at this time.? HHC/SNF: Hx of going to [facility] had [facility] and [facility]. Pt states she feels she will need to go to a SNF @ discharge and [facility] She declines wanting list of other SNF options at this time. Brittany STROUD, made aware. Pt voices no further concerns/needs at this time.? Advised pt to ask for?CM?if any further questions/concerns/needs arise.? Voices understanding. PLAN:??SNF Coleman BSN?RN?CM
--- NOTE | 2023-06-12 12:00 | CASEMGMT ---
LUANNE was informed by RN VADIM that patient would like to go to [facility]. LUANNE then received a voice mail from patient's cousin, Sandy stating she works at [facility] and would like SW to send a referral there. LUANNE spoke with patient and she said she is open to SW sending referrals to [facility] and [facility]. Patient will decide when she finds out who has beds available. LUANNE notified valery Vera/c materials planning analyst at [facility]. Brittany ARNDT
[2023-06-12 12:09] LABS: Bedside Glucose 115 mg/dL (74-106)
[2023-06-12] MEDS: Pregabalin 75 MG Capsule 150 MG PO ×2 (13:45→21:33)
--- NOTE | 2023-06-12 13:59 | CASEMGMT ---
Discharge Planning Referrals sent to [facility] and [facility] via [facility]. Jody Schrader, Discharge Planning Asst.
[2023-06-12] MEDS: oxyCODONE 5 MG Tablet PO (15:47)
--- NOTE | 2023-06-12 15:47 | CASEMGMT ---
Discharge Planning [facility] accepted and [facility] declined. Updated SL and asked for pre-cert to be started. Patient updated. Jody Schrader, Discharge Planning Asst.
--- NOTE | 2023-06-12 16:48 | MRI_ITS ---
INDICATION: back pain. right leg paresthesia, s/p fall EXAMINATION: MRI - MR Spine Lumbar W/O Contrast TECHNIQUE: Multiplanar and multisequence MR images of the lumbar spine. IV Contrast Dosage and Agent: None. COMPARISON: None. FINDINGS: VERTEBRAE: Vertebral body heights are preserved. Normal vertebral bodies and posterior elements. VERTEBRAL ALIGNMENT: No spondylolisthesis. There is preservation of the normal lumbar lordosis. CORD: Normal position and signal intensity of the conus medullaris. L1/L2: Normal disc height and morphology. Normal spinal canal, lateral recesses and neuroforamina. L2/L3: Normal disc height and morphology. Normal spinal canal, lateral recesses and neuroforamina. L3/L4: Endplate spondylosis. Decreased disc height and small circumferential disc bulge. Degenerative changes of the bilateral facet joints. Mild narrowing of the central canal and bilateral intervertebral neural foramina. L4/L5, L5/S1: Bilateral laminectomy. Decreased disc height and small circumferential disc bulge. Degenerative changes of the bilateral facet joints. Mild to moderate narrowing of the bilateral intervertebral neural foramina. SOFT TISSUES: Bilateral renal cysts the largest measures 2.3 cm. MRI/Spine Lumbar (Routine) IMPRESSION: L3/L4: Mild narrowing of the central canal and bilateral intervertebral neural foramina. L4/L5, L5/S1: Bilateral laminectomy. Mild to moderate narrowing of the bilateral intervertebral neural foramina. Electronically Signed: Varsha Conte MD at 0:30 EDT ,
[2023-06-12] MEDS: Acetaminophen 500 MG Tablet 1000 MG PO (17:03)
[2023-06-12 17:38] LABS: Bedside Glucose 96 mg/dL (74-106)
[2023-06-12] MEDS: Ipratropium/Albuterol Sulfate 3 ML AMPUL.NEB INHALATION (19:06)
[2023-06-12 20:39] LABS: Bedside Glucose 118 mg/dL (74-106)
[2023-06-12] MEDS: MELATONIN 10 MG TABLET PO (21:33)
[2023-06-12] MEDS: Fenofibrate 48 MG Tablet PO (21:33)
[2023-06-12] MEDS: Atorvastatin Calcium 20 MG Tablet PO (21:33)
[2023-06-12] MEDS: traZODone 50 MG Tablet PO (21:34)
[2023-06-13 03:00] VITALS: BP 118/66; PULSE 68; RESP 16; TEMP 36.9; O2SAT 94
[2023-06-13 05:57] LABS: Absolute Lymphocyte Count 2.14 X10^3/uL (0.83-4.51); Absolute Neutrophil Count 4.3 X10^3/uL (2.0-7.7); Basophil# 0.06 X10^3/uL; Basophil% 0.8 % (0-1); Eosinophil# 0.13 X10^3/uL; Eosinophils% 1.8 % (0-5); Hematocrit 44.3 % (37-47); Hemoglobin 13.9 g/dL (12.0-15.0); Lymphocyte # 2.14 X10^3/ul (0.83-4.51); Lymphocyte % 28.8 % (19-41); Mean Corp Hgb Conc 31.4 g/dL (32-36); Mean Corpuscular Hgb 29.4 pg (27.0-32.0); Mean Corpuscular Volume 93.9 fL (81-99); Mean Platelet Vol. 10.8 fl (6.2-12.0); Monocyte# 0.71 X10^3/uL; Monocyte% 9.6 % (0-10); NRBC Flagged by Analyzer 0 % (0-5); Neutrophil # 4.31 X10^3/uL (2.7-7.7); Neutrophil % 58.1 % (47-70); Platelet Count 246 K/mm3 (150-450); RBC Distribution Width CV 15.2 % (11.6-14.6); RBC Distribution Width SD 52.7 fl (35.1-43.9); Red Blood Count 4.72 M/mm3 (4.2-5.4); White Blood Count 7.4 K/mm3 (4.4-11.0)
[2023-06-13 06:14] LABS: International Normalized Ratio 1.6; Prothrombin Time (Protime)PT. 19.2 SECONDS (11.7-14.9)
[2023-06-13] MEDS: Acetaminophen 500 MG Tablet 1000 MG PO ×2 (06:17→15:01)
[2023-06-13] MEDS: Pregabalin 75 MG Capsule 150 MG PO ×2 (06:17→15:00)
[2023-06-13] MEDS: Dicyclomine 10 MG Capsule PO (06:18)
[2023-06-13 06:39] LABS: Bedside Glucose 99 mg/dL (74-106)
[2023-06-13 06:42] LABS: Anion Gap 5 (5-15); BUN 17 mg/dL (7-18); BUN/Creat Ratio 39.4 RATIO (10-20); Calcium,Total 8.6 mg/dL (8.5-10.1); Chloride 108 mmol/L (98-107); Creatinine, Serum 0.43 mg/dL (0.55-1.02); EST Glomerular Filtration Rate 157 mL/min (>60); Est Glom Filt Rate - Afr Amer 189 mL/min (>60); Estimated Creatinine Clearance 115.64 ml/min; Glucose 103 mg/dL (74-106); Sodium Level 141 mmol/L (136-145)
[2023-06-13] MEDS: oxyCODONE 5 MG Tablet PO ×3 (06:50→16:10)
[2023-06-13 07:18] VITALS: PULSE 85; RESP 20; O2SAT 96
[2023-06-13] MEDS: Ipratropium/Albuterol Sulfate 3 ML AMPUL.NEB INHALATION ×2 (07:18→12:47)
[2023-06-13] MEDS: Budesonide Respules 0.5 MG/2 ML AMPUL.NEB. INHALATION (07:18)
--- NOTE | 2023-06-13 08:03 | PN.HOSP_ITS ---
Reason for Visit Reason for Visit: Diagnoses Lumbago with sciatica, right side (06/12/23) Difficulty in walking, not elsewhere classified (06/12/23) Other malaise (06/12/23) Unspecified injury of head, initial encounter (06/12/23) Unspecified fall, initial encounter (06/12/23) Subjective Subjective Complains of headache that started this AM. Still with pain down right leg. Objective Data Objective Data Vital Signs: Vital Signs Temp Pulse Resp BP Pulse Ox O2 Del Method O2 Flow Rate 36.9 C 85 20 H 118/66 96 Room Air 2 06/13/23 03:00 06/13/23 07:18 06/13/23 07:18 06/13/23 03:00 06/13/23 07:18 06/13/23 07:18 06/13/23 03:00 Oxygen Flow Rate (L/min) 2 Oxygen Delivery Method Room Air Weight: 101.4 kg Body Mass Index (BMI) 38.3 Intake & Output: Intake and Output for Last 24 Hours 06/11/23 06/12/23 06/13/23 23:59 23:59 23:59 Intake Total 760 / 860 100 / 100 Output Total 500 / 500 Balance 760 / 860 -400 / -400 Lab / Micro Data 06/13/23 05:25 06/13/23 05:25 Labs: Laboratory Results - last 24 hr 06/12/23 08:45: Vitamin D 25-Hydroxy 53.4 06/12/23 09:41: POC Glucose 171 H 06/12/23 11:32: POC Glucose 115 H 06/12/23 17:02: POC Glucose 96 06/12/23 20:18: POC Glucose 118 H 06/13/23 05:25: WBC 7.4, RBC 4.72, Hgb 13.9, Hct 44.3, MCV 93.9, MCH 29.4, MCHC 31.4 L, RDW Std Deviation 52.7 H, RDW Coeff of Carmencita 15.2 H, Plt Count 246, MPV 10.8, Immature Gran % (Auto) 0.900, Neut % (Auto) 58.1, Lymph % (Auto) 28.8, Nuckolls % (Auto) 9.6, Eos % (Auto) 1.8, Baso % (Auto) 0.8, Absolute Neuts (auto) 4.3, Absolute Lymphs (auto) 2.14, Nucleated RBC % 0, PT 19.2 H, INR 1.6, Sodium 141, Potassium 4.0, Chloride 108 H, Carbon Dioxide 28.0, Anion Gap 5, BUN 17, Creatinine 0.43 L, Estim Creat Clear Calc 115.64, Est GFR (MDRD) Af Amer 189, Est GFR (MDRD) Non-Af 157, BUN/Creatinine Ratio 39.4 H, Glucose 103, Calcium 8.6 06/13/23 06:15: POC Glucose 99 Radiography Diagnostic Testing: Radiology Impression Lumbar Spine MRI 06/12/23 16:48 IMPRESSION: L3/L4: Mild narrowing of the central canal and bilateral intervertebral neural foramina. L4/L5, L5/S1: Bilateral laminectomy. Mild to moderate narrowing of the bilateral intervertebral neural foramina. Electronically Signed: Varsha Conte MD at 0:30 EDT , Physical Exam Const alert Constitutional Narrative: uncomfortable. Resp no use of accessory muscles Psych Mood & Affect: anxious Assessment & Plan Assessment/Plan (1) Debility: PLAN: PT and OT consult SNF upon discharge (2) Fall: QUALIFIERS: Encounter type: initial encounter Qualified Code(s): W19.XXXA - Unspecified fall, initial encounter PLAN: CT of the head shows no acute bleed But with a cystic lesion in the right parotid gland. No indication for further imaging at this time. Interpretation of Right Lower extremity CT by radiologist: No acute fracture identified but with moderate right knee joint effusion. Lower extremity CT is consistent with knee x-ray. (3) Back pain: QUALIFIERS: Back pain laterality: bilateral Back pain location: low back pain Chronicity: acute Sciatica laterality: sciatica of right side Sciatica presence: with sciatica Qualified Code(s): M54.41 - Lumbago with sciatica, right side PLAN: paraspinal muscle tenderness, but also with radicular pain MRI L spine: L3/4 Mild narrowing of the cental canal and bilatearl intervertebral neural foramina. L4/5, L5/S1: bilateral laminectomy. Mild to moderate narrowing of the bilateral intervertebral neural foramina. Still with pain down RLE. Will add prednisone burst starting 06/14. (4) Migraine headache: QUALIFIERS: Migraine type: without aura Status migrainosus presence: without status migrainosus Intractability: intractable Qualified Code(s): G43.019 - Migraine without aura, intractable, without status migrainosus PLAN: Acute on chronic history of migraines Will try 10mg of dexamethasone, if that does not work, then try triptan Patient normally takes triptans PRN at home. PLAN: Plan Chronic conditions: * History of PE and DVT INR is subtherapeutic. Escalate Coumadin dose. Bridge with Lovenox.Trend INR * Diabetes mellitus type 2: Blood glucose is not within goal. Continue home oral hypoglycemic regimen. Accu-Chek and correction scale insulin ordered. cotBasal insulin continued. * Hypertension. Blood pressure is not within goal. Continue home medication. PRN Hydralazine ordered. Trend blood pressures DVT prophylaxis: Lovenox and Coumadin as above. Disposition: pending resolution of migraine. Eventually to SNF. Charges/Coding Visit Charges Inpatient E&M: 35545 Subs Hosp L2
[2023-06-13 09:10] VITALS: BP 146/68; PULSE 76; RESP 16; TEMP 36.4; O2SAT 96
[2023-06-13] MEDS: Ondansetron 4 MG/2 ML Vial IV (09:21)
[2023-06-13] MEDS: 0.9% Saline Lock 10 ML Syringe IV ×2 (09:22→12:34)
[2023-06-13] MEDS: Morphine 4 MG/ML Syringe IV (09:23)
[2023-06-13] MEDS: tiZANidine HCl 2 MG Tablet 4 MG PO (09:25)
[2023-06-13] MEDS: Enoxaparin 120 MG/0.8 ML Syringe 112 MG SC (10:34)
[2023-06-13] MEDS: Montelukast 10 MG Tablet PO (10:35)
[2023-06-13] MEDS: Magnesium Chloride 64 MG Delay Rel.Tablet 128 MG PO (10:35)
[2023-06-13] MEDS: Furosemide 40 MG Tablet PO (10:35)
[2023-06-13] MEDS: dilTIAZem CD 180 MG Capsule 360 MG PO (10:35)
[2023-06-13] MEDS: Loratadine 10 MG Tablet PO (10:35)
[2023-06-13] MEDS: Fluoxetine HCl 40 MG CAPSULE PO (10:35)
[2023-06-13] MEDS: Docusate Sodium 100 MG Capsule PO (10:35)
[2023-06-13] MEDS: Pantoprazole Sodium 40 MG Tablet PO (10:35)
[2023-06-13] MEDS: Multivitamins,Therapeutic Tablet 1 TABLET PO (10:35)
[2023-06-13] MEDS: Potassium Chloride Oral Tablet 10 MEQ PO (10:35)
[2023-06-13] MEDS: Ascorbic Acid 500 MG Tablet 1000 MG PO (10:36)
[2023-06-13] MEDS: Empagliflozin 25 MG Tablet PO (10:36)
--- NOTE | 2023-06-13 11:48 | CASEMGMT ---
Patient was approved to go to [facility]. SW notified physician. SW also completed a PASRR in [employer] system. Brittany Diaz MSW HAIR
[2023-06-13] MEDS: Insulin Glargine-YFGN 100 UNIT/ML Pen 50 UNIT SC (12:31)
[2023-06-13] MEDS: Lisinopril 20 MG Tablet PO (12:33)
[2023-06-13] MEDS: dexAMETHasone 10 MG/ML Vial IV (12:33)
[2023-06-13 12:36] VITALS: BP 152/65
[2023-06-13 12:47] VITALS: PULSE 82; RESP 20
[2023-06-13 12:58] LABS: Bedside Glucose 123 mg/dL (74-106)
--- NOTE | 2023-06-13 13:58 | DCINST_ITS ---
Discharge Instructions Diet Discharge Diet: 2000 Calorie Control Diet Follow Up Care Test Results: Test results from this visit will be discussed in further detail at your follow- up appointment, if applicable.
--- NOTE | 2023-06-13 13:58 | PCM.DC ---
Discharge Instructions Diet Discharge Diet: 2000 Calorie Control Diet Follow Up Care Test Results: Test results from this visit will be discussed in further detail at your follow-up appointment, if applicable. Discharge Plan Admission Admit Date/Time: 06/12/23 04:27 Primary Reason for Your Visit: Fall. Attending Provider: David Salmon Primary Care Provider: Ophelia Soria Consulting Providers: Fermín Oconnor Discharge Orders/Prescriptions Prescriptions: New acetaminophen 500 mg Tablet 1,000 mg PO Q8 Qty: 0 0RF insulin lispro [Humalog KwikPen Insulin] 100 unit/mL Insulin Pen See Protocol subcut ACHS Qty: 0 0RF Protocol: 4. Sliding Scale Insulin High-Med Dosing Condition: 150-199 mg/dl = 2 units Condition: 200-259 mg/dl = 4 units Condition: 260-324 mg/dl = 6 units Condition: 325-374 mg/dl = 8 units Condition: 375-409 mg/dl = 10 units Condition: 410-449 mg/dl = 11 units Condition: Greater than 449 call physician Protocol Text: - Use for Total Daily Dose of Insulin 56-80 units - Patient who are insulin resistant or septic HIGH MEDIUM DOSING ALGORITHM enoxaparin 120 mg/0.8 mL Syringe 112 mg subcut Q12 Qty: 0 0RF oxycodone 5 mg Tablet 5 mg PO Q4H PRN PRN (Reason: Pain Score 6-10) 3 Days Qty: 18 0RF prednisone 20 mg Tablet 40 mg PO BREAKFAST Qty: 5 0RF rizatriptan [Maxalt] 10 mg tablet 10 mg PO Q2H PRN (Reason: migraine headache) Qty: 10 0RF Rx Instructions: do not exceed 3 doses per 24 hrs Aimovig Autoinjector 70 mg/mL auto-injector 70 mg subcut QMONTH Qty: 1 0RF Rx Instructions: per patient's normal routine. warfarin 10 mg tablet 10 mg PO DAILY Qty: 30 0RF Rx Instructions: take along with enoxaparin. When INR is greater than or equal to 2 for 2 days, then discontinue enoxapain. Continued ergocalciferol (vitamin D2) 50,000 unit capsule 50,000 unit PO WE trazodone 50 mg tablet 50 mg PO QHS albuterol sulfate 2.5 mg /3 mL (0.083 %) solution for nebulization 2.5 mg INHALATION Q2H PRN PRN (Reason: dyspnea, wheezing) Qty: 180 6RF albuterol sulfate 90 mcg/actuation HFA aerosol inhaler 2 inh INHALATION Q4H PRN PRN (Reason: Sob &/Or Wheezing) Qty: 18 6RF montelukast 10 mg tablet 10 mg PO DAILY Qty: 30 6RF alendronate 70 mg tablet 70 mg PO WE ondansetron 4 mg tablet,disintegrating 4 mg PO Q8H PRN (Reason: Nausea) nystatin 100,000 unit/gram powder 1 applic TOPICAL BID PRN PRN (Reason: YEAST) meclizine 25 mg tablet 25 mg PO DAILY PRN (Reason: Vertigo) magnesium 250 mg tablet 250 mg PO DAILY levocetirizine 5 mg tablet 5 mg PO DAILY cyclobenzaprine 5 mg tablet 10 mg PO Q8H PRN (Reason: MUSCLE CRAMPING) Patient Comments: I only take it when I absolutely have to...I am supposed to take it three times per day, but I take it prn...I makes me sleep for 6 hours and I didn't like that. clobetasol 0.05 % cream 1 applic topical PRN PRN (Reason: RASH/ITCHING) guaifenesin [Mucus Relief] 400 mg tablet 400 mg PO Q4H PRN PRN (Reason: Cough) polyethylene glycol 3350 [Miralax] 17 gram/dose powder 17 g PO DAILY PRN PRN (Reason: Constipation) chromium picolinate 200 mcg tablet 200 mcg PO DAILY coconut oil 1,000 mg capsule 1,000 mg PO DAILY Probiotic Blend 2 billion cell-50 mg capsule 1 cap PO DAILY Rx Instructions: give with meal/snack ascorbate calcium (vitamin C) 500 mg tablet 1,000 mg PO DAILY vitamin K2 45 mcg capsule 100 mcg PO DAILY zinc amino acid chelate 50 mg tablet 100 mg PO DAILY dicyclomine 10 mg capsule 10 mg PO BID Qty: 60 0RF omeprazole 40 mg capsule,delayed release(DR/EC) 40 mg PO BID Qty: 180 0RF fluoxetine 20 MG capsule 40 mg PO DAILY Patient Comments: Depression/anxiety potassium chloride 10 MEQ tablet 10 meq PO BID Patient Comments: Supplement docusate sodium 100 mg capsule 100 mg PO BID Patient Comments: Stool softner [id number] 1 EACH tablet,chewable 1 ea PO DAILY fenofibrate nanocrystallized 145 MG tablet 72.5 mg PO QHS tizanidine 4 mg Capsule 4 mg PO Q8H PRN (Reason: muscle relaxer) Patient Comments: I only take this if I don't want to be knocked out for 6 hours from the cyclobenzaprine. I take one or the other, not both. furosemide 40 MG tablet 40 mg PO MOWEFR Patient Comments: Diuretic - water pill to remove extra fluid ipratropium-albuterol 0.5 mg-3 mg(2.5 mg base)/3 mL solution for nebulization 3 ml INHALATION BID Rx Instructions: Continue until re-evaluation per pulmonary with possible transition back to home regimen at that time. budesonide-formoterol 160-4.5 mcg/actuation HFA aerosol inhaler 2 puff INHALATION BID beclomethasone dipropionate 80 mcg/actuation HFA aerosol breath activated 1 inh inhalation BID cyanocobalamin (vitamin B-12) [Vitamin B-12] 100 mcg Tablet 100 mcg PO DAILY pregabalin 150 mg capsule 150 mg PO TID melatonin 10 mg Tablet 10 mg PO QHS diltiazem HCl 240 mg capsule,extended release 24hr 360 mg PO DAILY Toujeo SoloStar U-300 Insulin 300 unit/mL (1.5 mL) insulin pen 50 unit SUBCUT BID Patient Comments: INJECT 56 UNITSESUBCUTANEOUSLY JUNIOR Rx Instructions: TOUJEO moexipril 15 mg tablet 15 mg PO DAILY Livalo 4 mg tablet 4 mg PO DAILY Farxiga 10 mg tablet 10 mg PO DAILY Ozempic 1 mg/dose (4 mg/3 mL) pen injector 1 mg subcut QWEEK omeprazole 40 mg capsule,delayed release(DR/EC) 40 mg PO BID tiotropium bromide 18 mcg capsule, w/inhalation device 1 cap inhalation DAILY Rx Instructions: puncture 1 cap using device; one dose = 2 inhalations multivitamin [Daily Multi-Vitamin] Tablet 1 tab PO DAILY cinnamon bark [Cinnamon] 500 mg capsule 1,000 mg PO DAILY quercetin 500 mg capsule PO alendronate [Fosamax] 70 mg tablet 70 mg PO QWEEK epinephrine 0.3 mg/0.3 mL auto-injector 0.3 mg IM X1 PRN (Reason: Anaphylaxis) Qty: 1 0RF Discontinued oxycodone-acetaminophen [Percocet] 5-325 mg Tablet 1 tab PO Q6H PRN PRN (Reason: Pain) warfarin 5 mg tablet 9 mg PO QHS Patient Comments: TAKE 1 TABLET BY MOUTH ASCDIRECTED Referrals / Follow Up: Ophelia Soria DO [Primary Care Provider] - Within 2 Weeks Disposition Disposition (needs filled in before D/C Order can be placed): Nursing Home Facility
--- NOTE | 2023-06-13 14:24 | DS.PCM_ITS ---
Providers Date of Admission: 06/12/23 Primary Care Physician: Dr. Ophelia Soria DO Reason For Visit: CLOSED HEAD INJURY, FALL Diagnosis Discharge Diagnosis (1) Debility: Status: Acute Code(s): R53.81 - Other malaise Plan: PT and OT consult SNF upon discharge (2) Fall: Status: Acute Code(s): W19.XXXA - Unspecified fall, initial encounter Qualifiers: Encounter type: initial encounter Qualified Code(s): W19.XXXA - Unspecified fall, initial encounter Plan: CT of the head shows no acute bleed But with a cystic lesion in the right parotid gland. No indication for further imaging at this time. Interpretation of Right Lower extremity CT by radiologist: No acute fracture identified but with moderate right knee joint effusion. Lower extremity CT is consistent with knee x-ray. (3) Back pain: Status: Acute Code(s): M54.9 - Dorsalgia, unspecified Qualifiers: Back pain location: low back pain Chronicity: acute Back pain laterality: bilateral Sciatica presence: with sciatica Sciatica laterality: sciatica of right side Qualified Code(s): M54.41 - Lumbago with sciatica, right side Plan: paraspinal muscle tenderness, but also with radicular pain MRI L spine: L3/4 Mild narrowing of the cental canal and bilatearl intervertebral neural foramina. L4/5, L5/S1: bilateral laminectomy. Mild to moderate narrowing of the bilateral intervertebral neural foramina. Still with pain down RLE. Will add prednisone burst starting 06/14. (4) Migraine headache: Status: Acute Code(s): G43.909 - Migraine, unspecified, not intractable, without status migrainosus Qualifiers: Migraine type: without aura Status migrainosus presence: without status migrainosus Intractability: intractable Qualified Code(s): G43.019 - Migraine without aura, intractable, without status migrainosus Plan: Acute on chronic history of migraines Will try 10mg of dexamethasone, if that does not work, then try triptan Patient normally takes triptans PRN at home. Resolved with dexamethasone PRN Maxalt. Pt also takes monthly aimovig Plan Chronic conditions: * History of PE and DVT INR is subtherapeutic. Escalate Coumadin dose. Bridge with Lovenox.Trend INR. Failed apixaban in the past. * Diabetes mellitus type 2: Blood glucose is not within goal. Continue home oral hypoglycemic regimen. Accu-Chek and correction scale insulin ordered. cotBasal insulin continued. * Hypertension. Blood pressure is not within goal. Continue home medication. PRN Hydralazine ordered. Trend blood pressures DVT prophylaxis: Lovenox and Coumadin as above. Disposition: to [facility]. Medications at Discharge Home Medications fluoxetine 20 mg capsule 40 mg PO DAILY anxiety 01/26/14 potassium chloride 10 mEq tablet,extended release(part/cryst) 10 meq PO BID Potassium Chloride 01/06/16 Ca 600 mg-D3 800 unit-magnes 40 pw-zgko-rmn-angel-boron chewable tablet 1 ea PO DAILY vitamins 05/27/16 fenofibrate nanocrystallized 145 mg tablet 72.5 mg PO QHS cholesterol 04/26/19 ergocalciferol (vitamin D2) 1,250 mcg (50,000 unit) capsule 50,000 unit PO WE supplement 08/09/19 trazodone 50 mg tablet 50 mg PO QHS sleep 08/09/19 epinephrine 0.3 mg/0.3 mL injection, auto-injector 0.3 mg (0.3 mL) IM X1 PRN Anaphylaxis #1 ea 01/18/20 albuterol sulfate 2.5 mg/3 mL (0.083 %) solution for nebulization 2.5 mg (3 mL) inhalation Q2H PRN PRN dyspnea, wheezing #180 mL 04/24/20 albuterol sulfate 90 mcg/actuation aerosol inhaler 2 inh inhalation Q4H PRN PRN Sob &/Or Wheezing #18 grams 04/24/20 montelukast 10 mg tablet 10 mg PO DAILY allergies/asthma #30 tabs 12/07/20 alendronate 70 mg tablet 70 mg PO WE bone health 12/21/20 nystatin 100,000 unit/gram topical powder 1 applic topical BID PRN PRN YEAST 12/21/20 ondansetron 4 mg disintegrating tablet 4 mg PO Q8H PRN Nausea 12/21/20 beclomethasone dipropionate 80 mcg/actuation HFA breath activated aerosol 1 inh inhalation BID Asthma 03/22/21 budesonide-formoterol HFA 160 mcg-4.5 mcg/actuation aerosol inhaler 2 puff inhalation BID asthma 03/22/21 furosemide 40 mg tablet 40 mg PO MOWEFR diuresis 03/22/21 ipratropium 0.5 mg-albuterol 3 mg (2.5 mg base)/3 mL nebulization soln 3 ml inhalation BID asthma 03/22/21 tizanidine 4 mg capsule 4 mg PO Q8H PRN muscle relaxer 03/22/21 cyanocobalamin (vitamin B-12) 100 mcg tablet (Vitamin B-12) 100 mcg PO DAILY supplement 04/05/21 melatonin 10 mg tablet 10 mg PO QHS sleep 04/05/21 pregabalin 150 mg capsule 150 mg PO TID nerve pain 04/05/21 diltiazem HCl 240 mg capsule,extended release 24 hr 360 mg PO DAILY BP 04/06/21 meclizine 25 mg tablet 25 mg PO DAILY PRN Vertigo 05/04/21 docusate sodium 100 mg capsule 100 mg PO BID stool softener 08/17/21 magnesium 250 mg tablet 250 mg PO DAILY supplement 08/17/21 L.acidophil-L.casei-B.bifid-B.longum-FOS 2 billion cell-50 mg capsule (Probiotic Blend) 1 cap PO DAILY supplement 11/07/21 ascorbate calcium (vitamin C) 500 mg tablet 1,000 mg PO DAILY vitamin 11/07/21 chromium picolinate 200 mcg tablet 200 mcg PO DAILY supplement 11/07/21 clobetasol 0.05 % topical cream 1 applic topical PRN PRN RASH/ITCHING 11/07/21 coconut oil 1,000 mg capsule 1,000 mg PO DAILY supplement 11/07/21 cyclobenzaprine 5 mg tablet 10 mg PO Q8H PRN MUSCLE CRAMPING 11/07/21 guaifenesin 400 mg tablet (Mucus Relief) 400 mg PO Q4H PRN PRN Cough 11/07/21 levocetirizine 5 mg tablet 5 mg PO DAILY allergies 11/07/21 polyethylene glycol 3350 17 gram/dose oral powder (Miralax) 17 g PO DAILY PRN PRN Constipation 11/07/21 vitamin K2 45 mcg capsule 100 mcg PO DAILY vitamin 11/07/21 zinc amino acid chelate 50 mg tablet 100 mg PO DAILY supplement 11/07/21 insulin glargine U-300 conc 300 unit/mL (1.5 mL) subcutaneous pen (Toujeo SoloStar U-300 Insulin) 50 unit subcut BID DIABETES 04/29/22 dicyclomine 10 mg capsule 10 mg PO BID diarrhea/cramps #60 caps 07/01/22 omeprazole 40 mg capsule,delayed release 40 mg PO BID #180 caps 07/01/22 dapagliflozin propanediol 10 mg tablet (Farxiga) 10 mg PO DAILY diabetes 08/11/22 moexipril 15 mg tablet 15 mg PO DAILY 08/11/22 pitavastatin calcium 4 mg tablet (Livalo) 4 mg PO DAILY cholesterol 08/11/22 alendronate 70 mg tablet (Fosamax) 70 mg PO QWEEK 06/12/23 cinnamon bark 500 mg capsule (Cinnamon) 1,000 mg PO DAILY 06/12/23 multivitamin (Daily Multi-Vitamin tablet) 1 tab PO DAILY 06/12/23 omeprazole 40 mg capsule,delayed release 40 mg PO BID 06/12/23 quercetin 500 mg capsule mg PO 06/12/23 semaglutide 1 mg/dose (4 mg/3 mL) subcutaneous pen injector (Ozempic) 1 mg subcut QWEEK 06/12/23 tiotropium bromide 18 mcg capsule with inhalation device 1 cap inhalation DAILY 06/12/23 acetaminophen 500 mg tablet 1,000 mg (2 x 500 mg) PO Q8 #0 tabs 06/13/23 enoxaparin 120 mg/0.8 mL subcutaneous syringe 112 mg (0.7467 mL) subcut Q12 #0 mL 06/13/23 erenumab-aooe 70 mg/mL subcutaneous auto-injector (Aimovig Autoinjector) 70 mg subcut QMONTH #1 mL 06/13/23 insulin lispro 100 unit/mL subcutaneous pen (Humalog KwikPen (U-100) Insulin) See Protocol subcut ACHS #0 mL 06/13/23 oxycodone 5 mg tablet 5 mg PO Q4H PRN PRN Pain Score 6-10 3 days #18 tabs 06/13/23 prednisone 20 mg tablet 40 mg (2 x 20 mg) PO BREAKFAST #5 tabs 06/13/23 rizatriptan 10 mg tablet (Maxalt) 10 mg PO Q2H PRN migraine headache #10 tabs 06/13/23 warfarin 10 mg tablet 10 mg PO DAILY #30 tabs 06/13/23 Hospital Course Operations None Procedures None Summary of Care Provided Minutes Spent on Discharge: 40 Weight / BMI Weight Weight: 101.4 kg Body Mass Index (BMI) 38.3 ABG / Lab / Microbiology Data 06/13/23 05:25 06/13/23 05:25 Laboratory: Laboratory Results - last 24 hr 06/12/23 17:02: POC Glucose 96 06/12/23 20:18: POC Glucose 118 H 06/13/23 05:25: WBC 7.4, RBC 4.72, Hgb 13.9, Hct 44.3, MCV 93.9, MCH 29.4, MCHC 31.4 L, RDW Std Deviation 52.7 H, RDW Coeff of Carmencita 15.2 H, Plt Count 246, MPV 10.8, Immature Gran % (Auto) 0.900, Neut % (Auto) 58.1, Lymph % (Auto) 28.8, Dale % (Auto) 9.6, Eos % (Auto) 1.8, Baso % (Auto) 0.8, Absolute Neuts (auto) 4.3, Absolute Lymphs (auto) 2.14, Nucleated RBC % 0, PT 19.2 H, INR 1.6, Sodium 141, Potassium 4.0, Chloride 108 H, Carbon Dioxide 28.0, Anion Gap 5, BUN 17, Creatinine 0.43 L, Estim Creat Clear Calc 115.64, Est GFR (MDRD) Af Amer 189, Est GFR (MDRD) Non-Af 157, BUN/Creatinine Ratio 39.4 H, Glucose 103, Calcium 8.6 06/13/23 06:15: POC Glucose 99 06/13/23 12:30: POC Glucose 123 H Radiography Diagnostic Testing: Radiology Impression Lumbar Spine MRI 06/12/23 16:48 IMPRESSION: L3/L4: Mild narrowing of the central canal and bilateral intervertebral neural foramina. L4/L5, L5/S1: Bilateral laminectomy. Mild to moderate narrowing of the bilateral intervertebral neural foramina. Electronically Signed: Varsha Conte MD at 0:30 EDT , D/C Instructions Discharge Diet: 2000 Calorie Control Diet Meaningful Use Info Meaningful Use Diagnoses (Choose all that apply): None applicable Discharge Plan Admission Admit Date/Time: 06/12/23 04:27 Primary Reason for Your Visit: Fall. Attending Provider: David Salmon Primary Care Provider: Ophelia Soria Consulting Providers: Fermín Oconnor Discharge Orders/Prescriptions Prescriptions: New acetaminophen 500 mg Tablet 1,000 mg PO Q8 Qty: 0 0RF insulin lispro [Humalog KwikPen Insulin] 100 unit/mL Insulin Pen See Protocol subcut ACHS Qty: 0 0RF Protocol: 4. Sliding Scale Insulin High-Med Dosing Condition: 150-199 mg/dl = 2 units Condition: 200-259 mg/dl = 4 units Condition: 260-324 mg/dl = 6 units Condition: 325-374 mg/dl = 8 units Condition: 375-409 mg/dl = 10 units Condition: 410-449 mg/dl = 11 units Condition: Greater than 449 call physician Protocol Text: - Use for Total Daily Dose of Insulin 56-80 units - Patient who are insulin resistant or septic HIGH MEDIUM DOSING ALGORITHM enoxaparin 120 mg/0.8 mL Syringe 112 mg subcut Q12 Qty: 0 0RF oxycodone 5 mg Tablet 5 mg PO Q4H PRN PRN (Reason: Pain Score 6-10) 3 Days Qty: 18 0RF prednisone 20 mg Tablet 40 mg PO BREAKFAST Qty: 5 0RF rizatriptan [Maxalt] 10 mg tablet 10 mg PO Q2H PRN (Reason: migraine headache) Qty: 10 0RF Rx Instructions: do not exceed 3 doses per 24 hrs Aimovig Autoinjector 70 mg/mL auto-injector 70 mg subcut QMONTH Qty: 1 0RF Rx Instructions: per patient's normal routine. warfarin 10 mg tablet 10 mg PO DAILY Qty: 30 0RF Rx Instructions: take along with enoxaparin. When INR is greater than or equal to 2 for 2 days, then discontinue enoxapain. Continued ergocalciferol (vitamin D2) 50,000 unit capsule 50,000 unit PO WE trazodone 50 mg tablet 50 mg PO QHS albuterol sulfate 2.5 mg /3 mL (0.083 %) solution for nebulization 2.5 mg INHALATION Q2H PRN PRN (Reason: dyspnea, wheezing) Qty: 180 6RF albuterol sulfate 90 mcg/actuation HFA aerosol inhaler 2 inh INHALATION Q4H PRN PRN (Reason: Sob &/Or Wheezing) Qty: 18 6RF montelukast 10 mg tablet 10 mg PO DAILY Qty: 30 6RF alendronate 70 mg tablet 70 mg PO WE ondansetron 4 mg tablet,disintegrating 4 mg PO Q8H PRN (Reason: Nausea) nystatin 100,000 unit/gram powder 1 applic TOPICAL BID PRN PRN (Reason: YEAST) meclizine 25 mg tablet 25 mg PO DAILY PRN (Reason: Vertigo) magnesium 250 mg tablet 250 mg PO DAILY levocetirizine 5 mg tablet 5 mg PO DAILY cyclobenzaprine 5 mg tablet 10 mg PO Q8H PRN (Reason: MUSCLE CRAMPING) Patient Comments: I only take it when I absolutely have to...I am supposed to take it three times per day, but I take it prn...I makes me sleep for 6 hours and I didn't like that. clobetasol 0.05 % cream 1 applic topical PRN PRN (Reason: RASH/ITCHING) guaifenesin [Mucus Relief] 400 mg tablet 400 mg PO Q4H PRN PRN (Reason: Cough) polyethylene glycol 3350 [Miralax] 17 gram/dose powder 17 g PO DAILY PRN PRN (Reason: Constipation) chromium picolinate 200 mcg tablet 200 mcg PO DAILY coconut oil 1,000 mg capsule 1,000 mg PO DAILY Probiotic Blend 2 billion cell-50 mg capsule 1 cap PO DAILY Rx Instructions: give with meal/snack ascorbate calcium (vitamin C) 500 mg tablet 1,000 mg PO DAILY vitamin K2 45 mcg capsule 100 mcg PO DAILY zinc amino acid chelate 50 mg tablet 100 mg PO DAILY dicyclomine 10 mg capsule 10 mg PO BID Qty: 60 0RF omeprazole 40 mg capsule,delayed release(DR/EC) 40 mg PO BID Qty: 180 0RF fluoxetine 20 MG capsule 40 mg PO DAILY Patient Comments: Depression/anxiety potassium chloride 10 MEQ tablet 10 meq PO BID Patient Comments: Supplement docusate sodium 100 mg capsule 100 mg PO BID Patient Comments: Stool softner Qh-A7-xyg-ykth-sdj-gumc-boron 1 EACH tablet,chewable 1 ea PO DAILY fenofibrate nanocrystallized 145 MG tablet 72.5 mg PO QHS tizanidine 4 mg Capsule 4 mg PO Q8H PRN (Reason: muscle relaxer) Patient Comments: I only take this if I don't want to be knocked out for 6 hours from the cyclobenzaprine. I take one or the other, not both. furosemide 40 MG tablet 40 mg PO MOWEFR Patient Comments: Diuretic - water pill to remove extra fluid ipratropium-albuterol 0.5 mg-3 mg(2.5 mg base)/3 mL solution for nebulization 3 ml INHALATION BID Rx Instructions: Continue until re-evaluation per pulmonary with possible transition back to home regimen at that time. budesonide-formoterol 160-4.5 mcg/actuation HFA aerosol inhaler 2 puff INHALATION BID beclomethasone dipropionate 80 mcg/actuation HFA aerosol breath activated 1 inh inhalation BID cyanocobalamin (vitamin B-12) [Vitamin B-12] 100 mcg Tablet 100 mcg PO DAILY pregabalin 150 mg capsule 150 mg PO TID melatonin 10 mg Tablet 10 mg PO QHS diltiazem HCl 240 mg capsule,extended release 24hr 360 mg PO DAILY Toujeo SoloStar U-300 Insulin 300 unit/mL (1.5 mL) insulin pen 50 unit SUBCUT BID Patient Comments: INJECT 56 UNITSESUBCUTANEOUSLY JUNIOR Rx Instructions: TOUJEO moexipril 15 mg tablet 15 mg PO DAILY Livalo 4 mg tablet 4 mg PO DAILY Farxiga 10 mg tablet 10 mg PO DAILY Ozempic 1 mg/dose (4 mg/3 mL) pen injector 1 mg subcut QWEEK omeprazole 40 mg capsule,delayed release(DR/EC) 40 mg PO BID tiotropium bromide 18 mcg capsule, w/inhalation device 1 cap inhalation DAILY Rx Instructions: puncture 1 cap using device; one dose = 2 inhalations multivitamin [Daily Multi-Vitamin] Tablet 1 tab PO DAILY cinnamon bark [Cinnamon] 500 mg capsule 1,000 mg PO DAILY quercetin 500 mg capsule PO alendronate [Fosamax] 70 mg tablet 70 mg PO QWEEK epinephrine 0.3 mg/0.3 mL auto-injector 0.3 mg IM X1 PRN (Reason: Anaphylaxis) Qty: 1 0RF Discontinued oxycodone-acetaminophen [Percocet] 5-325 mg Tablet 1 tab PO Q6H PRN PRN (Reason: Pain) warfarin 5 mg tablet 9 mg PO QHS Patient Comments: TAKE 1 TABLET BY MOUTH ASCDIRECTED Referrals / Follow Up: Ophelia Soria DO [Primary Care Provider] - Within 2 Weeks Disposition Disposition (needs filled in before D/C Order can be placed): [facility] Facility Charges/Coding Visit Charges Inpatient E&M: 44995 Disch Hosp >30min
[2023-06-13 15:10] VITALS: BP 127/58; PULSE 70; RESP 16; TEMP 36.2; O2SAT 94
--- NOTE | 2023-06-13 16:28 | CASEMGMT ---
Discharge Planning Discharge orders, signed med list, and transport time sent to [facility]. [facility] will transport patient by wheelchair at 4:30p. Patient, nursing, and SW updated. Jody Schrader, Discharge Planning Asst.
--- NOTE | 2023-06-13 16:41 | NURSING ---
Report called to [facility] to Marizol COREAS
== END 2023-06-13 17:09 | DRG 605 ==
LOC: ED 06-12 03:55 → PCU 06-12 04:55
PROVIDERS: Admitting Provider Hospitalist; Emergency Provider Emergency Medicine; PCP Internal Medicine
DX: S80.01XA Contusion of right knee, initial encounter (principal); I50.32 Chronic diastolic (congestive) heart failure; Z68.41 Body mass index [BMI] 40.0-44.9, adult; E11.40 Type 2 diabetes mellitus with diabetic neuropathy, unspecified; I11.0 Hypertensive heart disease with heart failure; J44.9 Chronic obstructive pulmonary disease, unspecified; E66.01 Morbid (severe) obesity due to excess calories; Z79.4 Long term (current) use of insulin; S01.21XA Laceration without foreign body of nose, initial encounter; R26.2 Difficulty in walking, not elsewhere classified; E78.00 Pure hypercholesterolemia, unspecified; I25.10 Atherosclerotic heart disease of native coronary artery without angina pectoris; M54.41 Lumbago with sciatica, right side; M54.42 Lumbago with sciatica, left side; M48.061 Spinal stenosis, lumbar region without neurogenic claudication; G43.019 Migraine without aura, intractable, without status migrainosus; W01.10XA Fall on same level from slipping, tripping and stumbling with subsequent striking against unspecified object, initial encounter; Z95.2 Presence of prosthetic heart valve; Z99.81 Dependence on supplemental oxygen; Z79.01 Long term (current) use of anticoagulants; Z79.84 Long term (current) use of oral hypoglycemic drugs; Z79.899 Other long term (current) drug therapy; Z86.711 Personal history of pulmonary embolism; Z86.718 Personal history of other venous thrombosis and embolism; Z86.16 Personal history of COVID-19; Z86.73 Personal history of transient ischemic attack (TIA), and cerebral infarction without residual deficits
CPT/HCPCS: 36415; 70450; 71045; 72125; 72148; 73502; 73560; 73700; 80048; 81001; 82306; 82962; 84484; 85025; 85610; 85730; 90715; 93005; 94640; 97110; 97162; 97167; 99285; A4216; J2405

== ENCOUNTER → 2023-08-08 | Outpatient (CLI) | payer MEDICARE, MEDICAID, SELFPAY ==
[2021-09-03 12:59] VITALS: BMI 43.4
[2023-08-08 10:54] LABS: International Normalized Ratio 1.8
[2023-08-08 11:10] LABS: Magnesium 2.3 mg/dL (1.6-2.6); Potassium 3.2 mmol/L (3.5-5.1)
== END | disposition home or self-care (01) ==
PROVIDERS: PCP Internal Medicine; Referring Provider Internal Medicine; Visit Provider Internal Medicine
DX: E87.6 Hypokalemia (principal); Z79.01 Long term (current) use of anticoagulants
CPT/HCPCS: 36415; 83735; 84132; 85610

== ENCOUNTER → 2023-08-13 | Outpatient (CLI) | payer MEDICARE, MEDICAID, SELFPAY ==
[2021-09-03 12:59] VITALS: BMI 43.4
[2023-08-13 12:01] LABS: International Normalized Ratio 2.3; Prothrombin Time (Protime)PT. 25.2 SECONDS (11.7-14.9)
[2023-08-13 12:21] LABS: Magnesium 2.2 mg/dL (1.6-2.6); Potassium 3.6 mmol/L (3.5-5.1)
== END | disposition home or self-care (01) ==
PROVIDERS: PCP Internal Medicine; Referring Provider Internal Medicine; Visit Provider Internal Medicine
DX: E87.6 Hypokalemia (principal); I82.409 Acute embolism and thrombosis of unspecified deep veins of unspecified lower extremity
CPT/HCPCS: 36415; 83735; 84132; 85610

== ENCOUNTER 2023-08-25 18:35 | Inpatient (IN) | payer MEDICARE, MEDICAID, SELFPAY ==
[2021-09-03 12:59] VITALS: BMI 43.4
[2023-08-25] VITALS (7 sets, daily range): BP systolic 135–199; BP diastolic 51–99; PULSE 65–91; RESP 15–18; TEMP 36.8–36.9; O2SAT 94–97; BMI 40.9; BMI 39.4
--- NOTE | 2023-08-25 19:55 | CT_ITS ---
EXAM: CT ABDOMEN AND PELVIS WITH INTRAVENOUS CONTRAST CLINICAL INDICATION: abdominal pain, rectal bleeding TECHNIQUE: Helically acquired images were obtained of the abdomen and pelvis with intravenous contrast. This CT exam was performed using one or more of the following dose reduction techniques: automated exposure control, adjustment of the mA and/or kV according to patient size, and/or use of iterative reconstruction technique. CONTRAST: IV 100mL Isovue-370 COMPARISON: CT abdomen and pelvis, 04/01/2023 FINDINGS: LOWER THORAX: Aortic valve repair changes. Coronary artery calcifications. Lung bases are clear. No cardiomegaly. No significant pericardial effusion. ABDOMEN: LIVER: Low-attenuation throughout the liver which is enlarged consistent with fatty infiltration. GALLBLADDER AND BILE DUCTS: No significant abnormality. No calcified gallstones. No gallbladder distention or wall edema. No intra- or extrahepatic biliary ductal dilation. PANCREAS: No significant abnormality. No focal cystic or solid mass. SPLEEN: No significant abnormality. Normal size without focal cystic or solid mass. ADRENALS: No significant abnormality. No nodules. KIDNEYS AND URETERS: Bilateral renal cysts are present for which no follow-up is indicated. Normal renal size and position. No hydronephrosis. STOMACH AND BOWEL: Minimal colonic diverticulosis without evidence of acute diverticulitis. No stomach or bowel distention. PELVIS: APPENDIX: No evidence of acute appendicitis. BLADDER: No significant abnormality. 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 ABDOMEN and PELVIS: INTRAPERITONEAL SPACE: No significant abnormality. No ascites or other fluid collection. No free air. BONES/JOINTS: Compressive changes of the superior and inferior endplate of L3, new compared to the prior CT examination with associated sclerosis and perhaps erosive changes. No involvement of the pedicles or posterior elements. T8 vertebral body sclerosis status post vertebral augmentation presumptively for treatment of a compression fracture. Degenerative changes throughout the spine, pelvis, and hips. No suspicious lytic or blastic abnormality. SOFT TISSUES: No significant abnormality. No discrete abdominal or pelvic wall hernia. VASCULATURE: Atherosclerosis. LYMPH NODES: No significant abnormality. No enlarged lymph nodes. CT/Abdomen/Pelvis W IV Cont ONLY IMPRESSION: 1. 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 2. T8 vertebral body sclerosis status post vertebral augmentation presumptively for treatment of a compression fracture. 3. Fatty liver and hepatomegaly. 4. Possible subacute compression fracture of L3. If there is clinical suspicion for osteomyelitis, recommend MRI lumbar spine with IV contrast. 5. Minimal colonic diverticulosis without evidence of acute diverticulitis. Electronically Signed: Travis Baldwin DO at 21:28 EST ,
--- NOTE | 2023-08-25 19:56 | ED.VIS.GI ---
HPI HPI - GI History of Present Illness Chief Complaint: GI Bleed Detail of Chief Complaint: Rectal bleeding Informant: patient Narrative Narrative: Patient presents to the emergency department complaint of rectal bleeding that started today. She had 3 episodes of bright red blood per rectum. Patient also is complaining of some right lower quadrant abdominal pain that she has had for about a week. She was seen by her primary care physician today and had a urine dip and had a urine culture sent but did not feel like she had a urinary tract infection. Patient on Coumadin for history of DVT and PE. Patient tells me a week ago she had a mild case of some rectal bleeding that did not last just 1 episode. Patient tells me she had a colonoscopy in February 2022 and really did not show anything significant. Patient last checked her INR within the last week and it was around 2.5. [facility] Medical History (Updated 08/25/23 @ 22:[address] Megha Rodrigues, DO) Anxiety Arthritis Asthma Atherosclerotic heart disease of [place] coronary artery without angina pectoris Back pain Back pain with sciatica Bilateral carotid bruits BiPAP (biphasic positive airway pressure) dependence Body mass index 45.0-49.9, adult Cardiology follow-up encounter Carotid artery disease COPD (chronic obstructive pulmonary disease) COVID-19 Depression Diabetes Diastolic heart failure Discoloration of skin Easy bruising Essential hypertension Excessive bleeding High cholesterol History of DVT (deep vein thrombosis) History of echocardiogram History of edema History of pain when walking History of pulmonary embolism History of steroid therapy History of stress test History of transcatheter aortic valve replacement (TAVR) (~04/19/21) Hx of transesophageal echocardiography (YOLANDA) for monitoring Insulin dependent diabetes mellitus Leg cramps Migraine headache Morbid obesity Non-smoker Nonrheumatic aortic (valve) stenosis On home oxygen therapy CHELSEY treated with BiPAP Peripheral neuropathy Personal history of anaphylaxis Positive FIT (fecal immunochemical test) Pulmonary embolism Restless legs Rotator cuff arthropathy of right shoulder Shortness of breath on exertion TIA (transient ischemic attack) Type 2 diabetes mellitus Home Medications fluoxetine 20 mg capsule 40 mg PO DAILY anxiety 01/26/14 [History Last Taken 04/05/21] potassium chloride 10 mEq tablet,extended release(part/cryst) 20 meq PO BID Potassium Chloride 01/06/16 [History Last Taken 08/11/22] Ca 600 mg-D3 800 unit-magnes 40 [id number]-[id number]-angel-boron chewable tablet 1 ea PO DAILY vitamins 05/27/16 [History Last Taken 04/05/21] fenofibrate nanocrystallized 145 mg tablet 72.5 mg PO QHS cholesterol 04/26/19 [History Last Taken 04/04/21] trazodone 50 mg tablet 50 mg PO QHS sleep 08/09/19 [History Last Taken 04/04/21] epinephrine 0.3 mg/0.3 mL injection, auto-injector 0.3 mg (0.3 mL) IM X1 PRN Anaphylaxis #1 ea 01/18/20 [Rx Last Taken Unknown] albuterol sulfate 2.5 mg/3 mL (0.083 %) solution for nebulization 2.5 mg (3 mL) inhalation Q2H PRN PRN dyspnea, wheezing #180 mL 04/24/20 [Rx Last Taken 07/02/21 09:00] albuterol sulfate 90 mcg/actuation aerosol inhaler 2 inh inhalation Q4H PRN PRN Sob &/Or Wheezing #18 grams 04/24/20 [Rx Last Taken 04/29/22] montelukast 10 mg tablet 10 mg PO DAILY allergies/asthma #30 tabs 12/07/20 [Rx Last Taken 04/05/21] alendronate 70 mg tablet 70 mg PO [employer] About Us 12/21/20 [History Last Taken 08/07/22] nystatin 100,000 unit/gram topical powder 1 applic topical BID PRN PRN YEAST 12/21/20 [History Last Taken 04/05/21] ondansetron 4 mg disintegrating tablet 4 mg PO Q8H PRN Nausea 12/21/20 [History Last Taken Unknown] beclomethasone dipropionate 80 mcg/actuation HFA breath activated aerosol 1 inh inhalation BID Asthma 03/22/21 [History Last Taken 07/02/21 09:00] budesonide-formoterol HFA 160 mcg-4.5 mcg/actuation aerosol inhaler 2 puff inhalation BID asthma 03/22/21 [History Last Taken 04/29/22] furosemide 40 mg tablet 40 mg PO MOWEFR diuresis 03/22/21 [History Last Taken 04/05/21] ipratropium 0.5 mg-albuterol 3 mg (2.5 mg base)/3 mL nebulization soln 3 ml inhalation BID asthma 03/22/21 [History Last Taken 04/05/21] tizanidine 4 mg capsule 4 mg PO Q8H PRN muscle relaxer 03/22/21 [History Last Taken 02/10/23] cyanocobalamin (vitamin B-12) 100 mcg tablet (Vitamin B-12) 100 mcg PO DAILY supplement 04/05/21 [History Last Taken 04/05/21] melatonin 10 mg tablet 12 mg PO QHS sleep 04/05/21 [History Last Taken 04/04/21] pregabalin 150 mg capsule 150 mg PO TID nerve pain 04/05/21 [History Last Taken 08/11/22] diltiazem HCl 240 mg capsule,extended release 24 hr 240 mg PO DAILY BP 04/06/21 [History Last Taken 07/02/21 09:00] meclizine 25 mg tablet 25 mg PO DAILY PRN Vertigo 05/04/21 [History Last Taken Unknown] docusate sodium 100 mg capsule 100 mg PO BID stool softener 08/17/21 [History Last Taken Unknown] magnesium 250 mg tablet 400 mg PO DAILY supplement 08/17/21 [History Last Taken Unknown] L.acidophil-L.casei-B.bifid-B.longum-FOS 2 billion cell-50 mg capsule (Probiotic Blend) 1 cap PO DAILY supplement 11/07/21 [History Last Taken Unknown] ascorbate calcium (vitamin C) 500 mg tablet 1.5 g PO DAILY vitamin 11/07/21 [History Last Taken Unknown] chromium picolinate 200 mcg tablet 200 mcg PO DAILY supplement 11/07/21 [History Last Taken Unknown] clobetasol 0.05 % topical cream 1 applic topical PRN PRN RASH/ITCHING 11/07/21 [History Last Taken Unknown] coconut oil 1,000 mg capsule 1,000 mg PO DAILY supplement 11/07/21 [History Last Taken Unknown] cyclobenzaprine 5 mg tablet 10 mg PO Q8H PRN MUSCLE CRAMPING 11/07/21 [History Last Taken 08/11/22] guaifenesin 400 mg tablet (Mucus Relief) 400 mg PO Q4H PRN PRN Cough 11/07/21 [History Last Taken Unknown] levocetirizine 5 mg tablet 5 mg PO DAILY allergies 11/07/21 [History Last Taken Unknown] polyethylene glycol 3350 17 gram/dose oral powder (Miralax) 17 g PO DAILY PRN PRN Constipation 11/07/21 [History Last Taken Unknown] vitamin K2 45 mcg capsule 100 mcg PO DAILY vitamin 11/07/21 [History Last Taken Unknown] zinc amino acid chelate 50 mg tablet 100 mg PO DAILY supplement 11/07/21 [History Last Taken Unknown] insulin glargine U-300 conc 300 unit/mL (1.5 mL) subcutaneous pen (Toujeffrey SoloStar U-300 Insulin) 50 unit subcut BID DIABETES 04/29/22 [History Last Taken 04/28/22 25 MG] dapagliflozin propanediol 10 mg tablet (Farxiga) 10 mg PO DAILY diabetes 08/11/22 [History Last Taken 08/11/22] moexipril 15 mg tablet 15 mg PO DAILY 08/11/22 [History Last Taken Unknown] pitavastatin calcium 4 mg tablet (Livalo) 4 mg PO DAILY cholesterol 08/11/22 [History Last Taken Unknown] multivitamin (Daily Multi-Vitamin tablet) 1 tab PO DAILY 06/12/23 [History Last Taken Unknown] omeprazole 40 mg capsule,delayed release 40 mg PO BID 06/12/23 [History Last Taken Unknown] quercetin 500 mg capsule 500 mg PO DAILY 06/12/23 [History Last Taken Unknown] semaglutide 1 mg/dose (4 mg/3 mL) subcutaneous pen injector (Ozempic) 1 mg subcut ECHEVARRIA 06/12/23 [History Last Taken Unknown] tiotropium bromide 18 mcg capsule with inhalation device 1 cap inhalation DAILY 06/12/23 [History Last Taken Unknown] erenumab-aooe 70 mg/mL subcutaneous auto-injector (Aimovig Autoinjector) 70 mg subcut QMONTH #1 mL 06/13/23 [Rx Last Taken Unknown] rizatriptan 10 mg tablet (Maxalt) 10 mg PO Q2H PRN migraine headache #10 tabs 06/13/23 [Rx Last Taken Unknown] warfarin 10 mg tablet 10 mg PO DAILY #30 tabs 06/13/23 [Rx Last Taken Unknown] acetaminophen 500 mg tablet 1,000 mg PO Q8 PRN pain 08/25/23 [History Last Taken Unknown] azelastine-fluticasone 137 mcg-50 mcg/spray nasal spray 2 spray intranasal BID 08/25/23 [History Last Taken Unknown] cholecalciferol (vitamin D3) 125 mcg (5,000 unit) tablet (Vitamin D3) 125 mcg PO DAILY 08/25/23 [History Last Taken Unknown] insulin lispro 100 unit/mL subcutaneous pen (Humalog KwikPen (U-100) Insulin) See Protocol subcut ACHS PRN high blood sugar 08/25/23 [History Last Taken Unknown] oxycodone-acetaminophen 5 mg-325 mg tablet 1 tab PO Q4H PRN pain 08/25/23 [History Last Taken Unknown] Allergy/AdvReac Type Severity Reaction Status Date / Time clindamycin Allergy Rash Verified 08/25/23 18:37 erythromycin base Allergy Rash Verified 08/25/23 18:37 [Erythromycin Base] omalizumab [From Xolair] Allergy Chest Verified 08/25/23 18:37 tightness Penicillins Allergy Rash Verified 08/25/23 18:37 sulfamethoxazole Allergy Chest Verified 08/25/23 18:37 [From Bactrim] tightness trimethoprim [From Bactrim] Allergy Chest Verified 08/25/23 18:37 tightness Sulfa (Sulfonamide AdvReac Unknown Unknown Verified 08/25/23 18:37 Antibiotics) Family History Father Heart disease Diabetes CAD (coronary artery disease) Mother CAD (coronary artery disease) CVA (cerebral vascular accident) Diabetes Brother CAD (coronary artery disease) CVA (cerebral vascular accident) Diabetes Unknown Cancer Grandmother CVA (cerebral vascular accident) Diabetes Grandfather CVA (cerebral vascular accident) Grandmother Myocardial infarction Brother Diabetes Sister Diabetes Surgical History Aortic valve replaced H/O lumbosacral spine surgery History of cardiac catheterization History of section History of hernia repair History of left heart catheterization (LHC) (~01/19/21) History of neck surgery History of rotator cuff surgery Hx of appendectomy Social History household members: spouse housing: apartment pets and animals: Yes Smoking Status: Never smoker second hand exposure: No alcohol intake: current alcohol intake frequency: a few times a week substance use type: does not use caffeine: No what type of physical activity do you participate in: none do you feel safe at home: Yes ROS ROS ED Review of Systems ROS Unobtainable: other Constitutional Constitutional ED: Reports lethargy; Denies chills, fever(s), sweats or weight loss Eyes Eyes: Denies blurry vision, change in vision or diplopia ENT ENT ED: Denies rhinorrhea or sore throat Cardiovascular Cardiovascular: Denies chest pain, orthopnea or racing heartbeat Respiratory/Chest Respiratory/Chest: Denies cough, dyspnea, dyspnea on exertion, orthopnea or sputum Gastrointestinal Gastrointestinal: Reports abdominal pain and other Details: Rectal bleeding ; Denies diarrhea, nausea or vomiting Genitourinary Genitourinary ED: Denies dysuria, hematuria or urinary frequency Musculoskeletal Musculoskeletal: Denies arthralgias, back pain, myalgias or neck pain Integumentary Denies abscess, Abrasions or rash Neurologic Neurologic: Denies headache(s) or weakness Psychiatric Psychiatric: Denies anxiety, depression or suicidal thoughts Endocrine Endocrinology: Denies polydipsia, polyphagia or polyuria Hematologic/Lymphatic Hematologic/Lymphatic: Denies easy bleeding, easy bruising or lymphadenopathy Allergic/Immunologic Allergic/Immunologic ED: Denies mouth swelling, tongue swelling or urticaria EXAM Physical Exam Const Vital Signs: 08/25/23 18:37 08/25/23 19:45 08/25/23 20:11 Temperature 98.4 F Temperature Source Temporal Pulse Rate 91 Pulse Rate [Lying] Pulse Rate [Sitting (for 1 minute prior to obtaining)] Pulse Rate [Standing (for 1 minute prior to obtaining)] Respiratory Rate 18 Blood Pressure 199/83 H 193/89 H 147/70 H Blood Pressure [Lying] Blood Pressure [Sitting (for 1 minute prior to obtaining)] Blood Pressure [Standing (for 1 minute prior to obtaining)] Blood Pressure Mean 121 123 95 Blood Pressure Mean [Lying] Blood Pressure Mean [Sitting (for 1 minute prior to obtaining)] Blood Pressure Mean [Standing (for 1 minute prior to obtaining)] Pulse Ox 97 Oxygen Delivery Method Room Air 08/25/23 21:00 Temperature Temperature Source Pulse Rate Pulse Rate [Lying] 85 Pulse Rate [Sitting (for 1 minute prior to obtaining)] 90 Pulse Rate [Standing (for 1 minute prior to obtaining)] 89 Respiratory Rate Blood Pressure Blood Pressure [Lying] 152/51 H Blood Pressure [Sitting (for 1 minute prior to obtaining)] 164/79 H Blood Pressure [Standing (for 1 minute prior to obtaining)] 164/81 H Blood Pressure Mean Blood Pressure Mean [Lying] 84 Blood Pressure Mean [Sitting (for 1 minute prior to obtaining)] 107 Blood Pressure Mean [Standing (for 1 minute prior to obtaining)] 108 Pulse Ox Oxygen Delivery Method Positive well nourished and well developed General Appearance ED: well developed and NAD HEENT Reports TM's clear and moist mucous membranes normocephalic and atraumatic; Negative for trauma or tenderness Tympanic Membrane ED: Yes TM's clear Eyes PERRL and EOMs intact bilaterally General Eye ED: Negative for pale conjunctiva or scleral icterus Neck no lymphadenopathy, supple and no JVD General: Negative for tenderness Chest Wall inspection of chest normal and palpation of chest normal Chest: Negative for tenderness Resp normal respiratory effort and clear to auscultation bilaterally Effort and Inspection: Negative for respiratory distress or pain with movement Auscultation: Negative for rhonchi, wheezes or diminished lung sounds Cardio regular rate, regular rhythm, S1 normal heart sound, S2 normal heart sound and no murmurs Peripheral Pulses: pulses 2+ throughout GI normal to inspection, nondistended, normoactive bowel sounds, soft to palpation, non-distended and no masses GI Narrative: Tenderness palpation over the right lower quadrant with some guarding. There is no rebound, rigidity, or pedal signs. No mass palpated. Patient had a rectal exam that showed no evidence of hemorrhoids or fissures. On rectal exam she had brown stool that was blood-tinged. No rectal masses palpated. Back/Spine no CVA tenderness and no thoracic nor lumbar tenderness Extremity normal to inspection General Extremety ED: Negative for edema General Extremity: Negative for edema Neuro oriented x3, CN's II-XII intact bilaterally, no sensory deficits noted and gait normal Sensorium / Orientation: awake, alert, oriented to person, oriented to place and oriented to time Motor Exam: strength 5/5 throughout and strength abnormal Psych mental status grossly normal Skin no rashes or lesions noted and no wounds MDM MDM MDM Narrative Medical decision making narrative: Patient presents with bright red blood per rectum. IV line established. Patient was given normal saline. Type and screen ordered. CBC with differential obtained showed a white count of 8.6 with hemoglobin 14.8 platelet count of 293. Chemistries unremarkable. BUN was 8 and creatinine 0.74. Lactate was 2.0. CT scan of the abdomen pelvis showed no significant acute intra-abdominal pathology. She had diverticulosis but no evidence of diverticulitis. Patient had another bloody stool while in the department. INR was 1.6. Case will be discussed with hospitalist to evaluate patient for admission. Suspect likely diverticular hemorrhage. Lab Data Attestation: I reviewed the patient's lab results. Labs: Laboratory Results - last 24 hr 08/25/23 20:09 WBC 8.6 RBC 5.11 Hgb 14.8 Hct 46.3 MCV 90.6 MCH 29.0 MCHC 32.0 RDW Std Deviation 45.7 H RDW Coeff of Carmencita 13.8 Plt Count 293 MPV 10.5 Immature Gran % (Auto) 0.600 Neut % (Auto) 63.4 Lymph % (Auto) 23.5 [place] % (Auto) 9.9 Eos % (Auto) 1.4 Baso % (Auto) 1.2 H Absolute Neuts (auto) 5.4 Absolute Lymphs (auto) 2.02 Nucleated RBC % 0 PT 19.3 H INR 1.6 Sodium 140 Potassium 3.3 L Chloride 104 Carbon Dioxide 29.0 Anion Gap 7 BUN 8 Creatinine 0.74 Estim Creat Clear Calc 67.19 Est GFR (MDRD) Af Amer 101 Est GFR (MDRD) Non-Af 84 BUN/Creatinine Ratio 10.8 Glucose 141 H Lactic Acid 2.0 Calcium 8.7 Radiography Diagnostic Testing: Clinical Impression(s) from Imaging Studies Abdomen/Pelvis CT 08/25/23 19:55 IMPRESSION: 1. 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 2. T8 vertebral body sclerosis status post vertebral augmentation presumptively for treatment of a compression fracture. 3. Fatty liver and hepatomegaly. 4. Possible subacute compression fracture of L3. If there is clinical suspicion for osteomyelitis, recommend MRI lumbar spine with IV contrast. 5. Minimal colonic diverticulosis without evidence of acute diverticulitis. Electronically Signed: Travis Baldwin DO at 21:28 EST , Discharge Plan Triage Chief Complaint: GI Bleed ED Provider: Megha Rodrigues Dx/Rx/DC Orders Clinical Impression: Chronic anticoagulation, COPD (chronic obstructive pulmonary disease), Acute lower GI bleeding, Hx of pulmonary embolus Prescriptions: No Action trazodone 50 mg tablet 50 mg PO QHS albuterol sulfate 2.5 mg /3 mL (0.083 %) solution for nebulization 2.5 mg INHALATION Q2H PRN PRN (Reason: dyspnea, wheezing) Qty: 180 6RF albuterol sulfate 90 mcg/actuation HFA aerosol inhaler 2 inh INHALATION Q4H PRN PRN (Reason: Sob &/Or Wheezing) Qty: 18 6RF montelukast 10 mg tablet 10 mg PO DAILY Qty: 30 6RF alendronate 70 mg tablet 70 mg PO WE ondansetron 4 mg tablet,disintegrating 4 mg PO Q8H PRN (Reason: Nausea) nystatin 100,000 unit/gram powder 1 applic TOPICAL BID PRN PRN (Reason: YEAST) meclizine 25 mg tablet 25 mg PO DAILY PRN (Reason: Vertigo) magnesium 250 mg tablet 400 mg PO DAILY levocetirizine 5 mg tablet 5 mg PO DAILY cyclobenzaprine 5 mg tablet 10 mg PO Q8H PRN (Reason: MUSCLE CRAMPING) Patient Comments: I only take it when I absolutely have to...I am supposed to take it three times per day, but I take it prn...I makes me sleep for 6 hours and I didn't like that. clobetasol 0.05 % cream 1 applic topical PRN PRN (Reason: RASH/ITCHING) guaifenesin [Mucus Relief] 400 mg tablet 400 mg PO Q4H PRN PRN (Reason: Cough) polyethylene glycol 3350 [Miralax] 17 gram/dose powder 17 g PO DAILY PRN PRN (Reason: Constipation) chromium picolinate 200 mcg tablet 200 mcg PO DAILY coconut oil 1,000 mg capsule 1,000 mg PO DAILY Probiotic Blend 2 billion cell-50 mg capsule 1 cap PO DAILY Rx Instructions: give with meal/snack ascorbate calcium (vitamin C) 500 mg tablet 1.5 g PO DAILY vitamin K2 45 mcg capsule 100 mcg PO DAILY zinc amino acid chelate 50 mg tablet 100 mg PO DAILY fluoxetine 20 MG capsule 40 mg PO DAILY Patient Comments: Depression/anxiety potassium chloride 10 MEQ tablet 20 meq PO BID Patient Comments: Supplement docusate sodium 100 mg capsule 100 mg PO BID Patient Comments: Stool softner [id number]-lkvt-kpv-vdpx-boron 1 EACH tablet,chewable 1 ea PO DAILY fenofibrate nanocrystallized 145 MG tablet 72.5 mg PO QHS tizanidine 4 mg Capsule 4 mg PO Q8H PRN (Reason: muscle relaxer) Patient Comments: I only take this if I don't want to be knocked out for 6 hours from the cyclobenzaprine. I take one or the other, not both. furosemide 40 MG tablet 40 mg PO MOWEFR Patient Comments: Diuretic - water pill to remove extra fluid Rx Instructions: three times a week but twice a day MOWEFR ipratropium-albuterol 0.5 mg-3 mg(2.5 mg base)/3 mL solution for nebulization 3 ml INHALATION BID Rx Instructions: Continue until re-evaluation per pulmonary with possible transition back to home regimen at that time. budesonide-formoterol 160-4.5 mcg/actuation HFA aerosol inhaler 2 puff INHALATION BID beclomethasone dipropionate 80 mcg/actuation HFA aerosol breath activated 1 inh inhalation BID cyanocobalamin (vitamin B-12) [Vitamin B-12] 100 mcg Tablet 100 mcg PO DAILY pregabalin 150 mg capsule 150 mg PO TID melatonin 10 mg Tablet 12 mg PO QHS diltiazem HCl 240 mg capsule,extended release 24hr 240 mg PO DAILY Hazel Garcia U-300 Insulin 300 unit/mL (1.5 mL) insulin pen 50 unit SUBCUT BID Patient Comments: INJECT 56 [id number] JUNIOR Rx Instructions: TOUJEO moexipril 15 mg tablet 15 mg PO DAILY pitavastatin calcium [Livalo] 4 mg tablet 4 mg PO DAILY Farxiga 10 mg tablet 10 mg PO DAILY Ozempic 1 mg/dose (4 mg/3 mL) pen injector 1 mg subcut ECHEVARRIA omeprazole 40 mg capsule,delayed release(DR/EC) 40 mg PO BID tiotropium bromide 18 mcg capsule, w/inhalation device 1 cap inhalation DAILY Rx Instructions: puncture 1 cap using device; one dose = 2 inhalations multivitamin [Daily Multi-Vitamin] Tablet 1 tab PO DAILY quercetin 500 mg capsule 500 mg PO DAILY rizatriptan [Maxalt] 10 mg tablet 10 mg PO Q2H PRN (Reason: migraine headache) Qty: 10 0RF Rx Instructions: do not exceed 3 doses per 24 hrs Aimovig Autoinjector 70 mg/mL auto-injector 70 mg subcut QMONTH Qty: 1 0RF Rx Instructions: per patient's normal routine. warfarin 10 mg tablet 10 mg PO DAILY Qty: 30 0RF Rx Instructions: take along with enoxaparin. When INR is greater than or equal to 2 for 2 days, then discontinue enoxapain. oxycodone-acetaminophen 5-325 mg tablet 1 tab PO Q4H PRN (Reason: pain) Patient Comments: TAKE 1 TABLET BY MOUTHEEVERY 6 HOURS NEEDEDHFOR PAIN cholecalciferol (vitamin D3) [Vitamin D3] 125 mcg (5,000 unit) tablet 125 mcg PO DAILY azelastine-fluticasone 137-50 mcg/spray spray,non-aerosol 2 spray intranasal BID Rx Instructions: administer into each nostril acetaminophen 500 mg Tablet 1,000 mg PO Q8 PRN (Reason: pain) insulin lispro [Humalog KwikPen Insulin] 100 unit/mL Insulin Pen See Protocol subcut ACHS PRN (Reason: high blood sugar) Protocol: 4. Sliding Scale Insulin High-Med Dosing Condition: 150-199 mg/dl = 2 units Condition: 200-259 mg/dl = 4 units Condition: 260-324 mg/dl = 6 units Condition: 325-374 mg/dl = 8 units Condition: 375-409 mg/dl = 10 units Condition: 410-449 mg/dl = 11 units Condition: Greater than 449 call physician Protocol Text: - Use for Total Daily Dose of Insulin 56-80 units - Patient who are insulin resistant or septic HIGH MEDIUM DOSING ALGORITHM epinephrine 0.3 mg/0.3 mL auto-injector 0.3 mg IM X1 PRN (Reason: Anaphylaxis) Qty: 1 0RF Primary Care Provider: Ophelia Soria Referrals: Ophelia Soria DO [Primary Care Provider] - Disposition Disposition: [facility] Care [facility]
[2023-08-25 20:23] LABS: Absolute Lymphocyte Count 2.02 X10^3/uL (0.83-4.51); Absolute Neutrophil Count 5.4 X10^3/uL (2.0-7.7); Basophil% 1.2 % (0-1); Eosinophil# 0.12 X10^3/uL; Eosinophils% 1.4 % (0-5); Hematocrit 46.3 % (37-47); Hemoglobin 14.8 g/dL (12.0-15.0); Lymphocyte # 2.02 X10^3/ul (0.83-4.51); Lymphocyte % 23.5 % (19-41); Mean Corpuscular Volume 90.6 fL (81-99); Mean Platelet Vol. 10.5 fl (6.2-12.0); Monocyte# 0.85 X10^3/uL; Monocyte% 9.9 % (0-10); NRBC Flagged by Analyzer 0 % (0-5); Neutrophil # 5.44 X10^3/uL (2.7-7.7); Neutrophil % 63.4 % (47-70); Platelet Count 293 K/mm3 (150-450); RBC Distribution Width CV 13.8 % (11.6-14.6); RBC Distribution Width SD 45.7 fl (35.1-43.9); Red Blood Count 5.11 M/mm3 (4.2-5.4); White Blood Count 8.6 K/mm3 (4.4-11.0)
[2023-08-25] MEDS: 0.9% Normal Saline (1000mL) 1,000 ML 125 ML IV (20:30)
[2023-08-25 20:33] LABS: International Normalized Ratio 1.6; Prothrombin Time (Protime)PT. 19.3 SECONDS (11.7-14.9)
[2023-08-25 20:48] LABS: Anion Gap 7 (5-15); BUN 8 mg/dL (7-18); BUN/Creat Ratio 10.8 RATIO (10-20); Calcium,Total 8.7 mg/dL (8.5-10.1); Chloride 104 mmol/L (98-107); Creatinine, Serum 0.74 mg/dL (0.55-1.02); EST Glomerular Filtration Rate 84 mL/min (>60); Est Glom Filt Rate - Afr Amer 101 mL/min (>60); Estimated Creatinine Clearance 67.19 ml/min; Glucose 141 mg/dL (74-106); Potassium 3.3 mmol/L (3.5-5.1); Sodium Level 140 mmol/L (136-145)
[2023-08-25] MEDS: Ondansetron 4 MG/2 ML Vial IV (21:32)
--- NOTE | 2023-08-25 22:08 | PCM.HP.STD ---
HPI - General General Date of Admission: 08/25/23 Date of Service: 08/25/23 Chief Complaint: Bright red blood per rectum HPI Narrative NATHALIE HERMAN, is a 62 F who presented to the emergency department at [facility] on 08/25/2023 complaining of bright red blood per rectum. She reported it actually started on Friday she had 1 episode at that point. She also complained of some mild right lower quadrant pain and some intermittent nausea that is been associated with this. It then resolved and she did not have any more episodes until today. She has had several episodes of bright red blood per rectum today. She had a colonoscopy done in 2021 which revealed diverticulosis but no diverticulitis and she had about 4 polyps removed at that time but no other findings were present. EGD was done at that time as well and showed large hiatal hernia with an abnormal Z-line but was otherwise unremarkable. She did have bright red blood per rectum in the emergency department. She also reports that she been having several falls and had been recently through a rehab facility and now is following up with outpatient rehab which is to start tomorrow. I advised her to call and cancel that appointment and she indicated she would do so and reschedule for after discharge. I did advise we will have physical and Occupational Therapy see her while she is here as well. Upon presentation her vital signs were overall unremarkable. Orthostatic vitals were obtained and were normal. Her CBC was unremarkable with a hemoglobin of 14.8. Baseline hemoglobin appears to run between 13 and 15. She was having ongoing bright red bowel movements however in the emergency department. Coags were obtained and she is on Coumadin at baseline and her INR was 1.6. Chemistry panel showed mild hypokalemia with a potassium of 3.3 but was otherwise unremarkable. Her lactic acid was 2.0. 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 [facility] Medical History Anxiety Arthritis Asthma Atherosclerotic heart disease of [place] coronary artery without angina pectoris Back pain Back pain with sciatica Bilateral carotid bruits BiPAP (biphasic positive airway pressure) dependence Body mass index 45.0-49.9, adult Cardiology follow-up encounter Carotid artery disease COPD (chronic obstructive pulmonary disease) COVID-19 Depression Diabetes Diastolic heart failure Discoloration of skin Easy bruising Essential hypertension Excessive bleeding High cholesterol History of DVT (deep vein thrombosis) History of echocardiogram History of edema History of pain when walking History of pulmonary embolism History of steroid therapy History of stress test History of transcatheter aortic valve replacement (TAVR) (~04/19/21) Hx of transesophageal echocardiography (YOLANDA) for monitoring Insulin dependent diabetes mellitus Leg cramps Migraine headache Morbid obesity Non-smoker Nonrheumatic aortic (valve) stenosis On home oxygen therapy CHELSEY treated with BiPAP Peripheral neuropathy Personal history of anaphylaxis Positive FIT (fecal immunochemical test) Pulmonary embolism Restless legs Rotator cuff arthropathy of right shoulder Shortness of breath on exertion TIA (transient ischemic attack) Type 2 diabetes mellitus Home Medications fluoxetine 20 mg capsule 40 mg PO DAILY anxiety 01/26/14 [History Last Taken 04/05/21] potassium chloride 10 mEq tablet,extended release(part/cryst) 20 meq PO BID Potassium Chloride 01/06/16 [History Last Taken 08/11/22] Ca 600 mg-D3 800 unit-magnes 40 hj-xvfi-syv-angel-boron chewable tablet 1 ea PO DAILY vitamins 05/27/16 [History Last Taken 04/05/21] fenofibrate nanocrystallized 145 mg tablet 72.5 mg PO QHS cholesterol 04/26/19 [History Last Taken 04/04/21] trazodone 50 mg tablet 50 mg PO QHS sleep 08/09/19 [History Last Taken 04/04/21] epinephrine 0.3 mg/0.3 mL injection, auto-injector 0.3 mg (0.3 mL) IM X1 PRN Anaphylaxis #1 ea 01/18/20 [Rx Last Taken Unknown] albuterol sulfate 2.5 mg/3 mL (0.083 %) solution for nebulization 2.5 mg (3 mL) inhalation Q2H PRN PRN dyspnea, wheezing #180 mL 04/24/20 [Rx Last Taken 07/02/21 09:00] albuterol sulfate 90 mcg/actuation aerosol inhaler 2 inh inhalation Q4H PRN PRN Sob &/Or Wheezing #18 grams 04/24/20 [Rx Last Taken 04/29/22] montelukast 10 mg tablet 10 mg PO DAILY allergies/asthma #30 tabs 12/07/20 [Rx Last Taken 04/05/21] alendronate 70 mg tablet 70 mg PO WE bone health 12/21/20 [History Last Taken 08/07/22] nystatin 100,000 unit/gram topical powder 1 applic topical BID PRN PRN YEAST 12/21/20 [History Last Taken 04/05/21] ondansetron 4 mg disintegrating tablet 4 mg PO Q8H PRN Nausea 12/21/20 [History Last Taken Unknown] beclomethasone dipropionate 80 mcg/actuation HFA breath activated aerosol 1 inh inhalation BID Asthma 03/22/21 [History Last Taken 07/02/21 09:00] budesonide-formoterol HFA 160 mcg-4.5 mcg/actuation aerosol inhaler 2 puff inhalation BID asthma 03/22/21 [History Last Taken 04/29/22] furosemide 40 mg tablet 40 mg PO MOWEFR diuresis 03/22/21 [History Last Taken 04/05/21] ipratropium 0.5 mg-albuterol 3 mg (2.5 mg base)/3 mL nebulization soln 3 ml inhalation BID asthma 03/22/21 [History Last Taken 04/05/21] tizanidine 4 mg capsule 4 mg PO Q8H PRN muscle relaxer 03/22/21 [History Last Taken 02/10/23] cyanocobalamin (vitamin B-12) 100 mcg tablet (Vitamin B-12) 100 mcg PO DAILY supplement 04/05/21 [History Last Taken 04/05/21] melatonin 10 mg tablet 12 mg PO QHS sleep 04/05/21 [History Last Taken 04/04/21] pregabalin 150 mg capsule 150 mg PO TID nerve pain 04/05/21 [History Last Taken 08/11/22] diltiazem HCl 240 mg capsule,extended release 24 hr 240 mg PO DAILY BP 04/06/21 [History Last Taken 07/02/21 09:00] meclizine 25 mg tablet 25 mg PO DAILY PRN Vertigo 05/04/21 [History Last Taken Unknown] docusate sodium 100 mg capsule 100 mg PO BID stool softener 08/17/21 [History Last Taken Unknown] magnesium 250 mg tablet 400 mg PO DAILY supplement 08/17/21 [History Last Taken Unknown] L.acidophil-L.casei-B.bifid-B.longum-FOS 2 billion cell-50 mg capsule (Probiotic Blend) 1 cap PO DAILY supplement 11/07/21 [History Last Taken Unknown] ascorbate calcium (vitamin C) 500 mg tablet 1.5 g PO DAILY vitamin 11/07/21 [History Last Taken Unknown] chromium picolinate 200 mcg tablet 200 mcg PO DAILY supplement 11/07/21 [History Last Taken Unknown] clobetasol 0.05 % topical cream 1 applic topical PRN PRN RASH/ITCHING 11/07/21 [History Last Taken Unknown] coconut oil 1,000 mg capsule 1,000 mg PO DAILY supplement 11/07/21 [History Last Taken Unknown] cyclobenzaprine 5 mg tablet 10 mg PO Q8H PRN MUSCLE CRAMPING 11/07/21 [History Last Taken 08/11/22] guaifenesin 400 mg tablet (Mucus Relief) 400 mg PO Q4H PRN PRN Cough 11/07/21 [History Last Taken Unknown] levocetirizine 5 mg tablet 5 mg PO DAILY allergies 11/07/21 [History Last Taken Unknown] polyethylene glycol 3350 17 gram/dose oral powder (Miralax) 17 g PO DAILY PRN PRN Constipation 11/07/21 [History Last Taken Unknown] vitamin K2 45 mcg capsule 100 mcg PO DAILY vitamin 11/07/21 [History Last Taken Unknown] zinc amino acid chelate 50 mg tablet 100 mg PO DAILY supplement 11/07/21 [History Last Taken Unknown] insulin glargine U-300 conc 300 unit/mL (1.5 mL) subcutaneous pen (Toujeo SoloStar U-300 Insulin) 50 unit subcut BID DIABETES 04/29/22 [History Last Taken 04/28/22 25 MG] dapagliflozin propanediol 10 mg tablet (Farxiga) 10 mg PO DAILY diabetes 08/11/22 [History Last Taken 08/11/22] moexipril 15 mg tablet 15 mg PO DAILY 08/11/22 [History Last Taken Unknown] pitavastatin calcium 4 mg tablet (Livalo) 4 mg PO DAILY cholesterol 08/11/22 [History Last Taken Unknown] multivitamin (Daily Multi-Vitamin tablet) 1 tab PO DAILY 06/12/23 [History Last Taken Unknown] omeprazole 40 mg capsule,delayed release 40 mg PO BID 06/12/23 [History Last Taken Unknown] quercetin 500 mg capsule 500 mg PO DAILY 06/12/23 [History Last Taken Unknown] semaglutide 1 mg/dose (4 mg/3 mL) subcutaneous pen injector (Ozempic) 1 mg subcut ECHEVARRIA 06/12/23 [History Last Taken Unknown] tiotropium bromide 18 mcg capsule with inhalation device 1 cap inhalation DAILY 06/12/23 [History Last Taken Unknown] erenumab-aooe 70 mg/mL subcutaneous auto-injector (Aimovig Autoinjector) 70 mg subcut QMONTH #1 mL 06/13/23 [Rx Last Taken Unknown] rizatriptan 10 mg tablet (Maxalt) 10 mg PO Q2H PRN migraine headache #10 tabs 06/13/23 [Rx Last Taken Unknown] warfarin 10 mg tablet 10 mg PO DAILY #30 tabs 06/13/23 [Rx Last Taken Unknown] acetaminophen 500 mg tablet 1,000 mg PO Q8 PRN pain 08/25/23 [History Last Taken Unknown] azelastine-fluticasone 137 mcg-50 mcg/spray nasal spray 2 spray intranasal BID 08/25/23 [History Last Taken Unknown] cholecalciferol (vitamin D3) 125 mcg (5,000 unit) tablet (Vitamin D3) 125 mcg PO DAILY 08/25/23 [History Last Taken Unknown] insulin lispro 100 unit/mL subcutaneous pen (Humalog KwikPen (U-100) Insulin) See Protocol subcut ACHS PRN high blood sugar 08/25/23 [History Last Taken Unknown] oxycodone-acetaminophen 5 mg-325 mg tablet 1 tab PO Q4H PRN pain 08/25/23 [History Last Taken Unknown] Allergy/AdvReac Type Severity Reaction Status Date / Time clindamycin Allergy Rash Verified 08/25/23 18:37 erythromycin base Allergy Rash Verified 08/25/23 18:37 [Erythromycin Base] omalizumab [From Xolair] Allergy Chest Verified 08/25/23 18:37 tightness Penicillins Allergy Rash Verified 08/25/23 18:37 sulfamethoxazole Allergy Chest Verified 08/25/23 18:37 [From Bactrim] tightness trimethoprim [From Bactrim] Allergy Chest Verified 08/25/23 18:37 tightness Sulfa (Sulfonamide AdvReac Unknown Unknown Verified 08/25/23 18:37 Antibiotics) Family History Father Heart disease Diabetes CAD (coronary artery disease) Mother CAD (coronary artery disease) CVA (cerebral vascular accident) Diabetes Brother CAD (coronary artery disease) CVA (cerebral vascular accident) Diabetes Unknown Cancer Grandmother CVA (cerebral vascular accident) Diabetes Grandfather CVA (cerebral vascular accident) Grandmother Myocardial infarction Brother Diabetes Sister Diabetes Surgical History Aortic valve replaced H/O lumbosacral spine surgery History of cardiac catheterization History of section History of hernia repair History of left heart catheterization (LHC) (~01/19/21) History of neck surgery History of rotator cuff surgery Hx of appendectomy Social History household members: spouse housing: apartment pets and animals: Yes Smoking Status: Never smoker second hand exposure: No alcohol intake: current alcohol intake frequency: a few times a week substance use type: does not use caffeine: No what type of physical activity do you participate in: none do you feel safe at home: Yes ROS Constitutional Constitutional: Denies anorexia, change in weight, chills, fatigue, fever(s), malaise, night sweats, weakness or other Eyes Eyes: Denies blurry vision, change in eye color, change in vision, discharge from eye(s), double vision, erythema, eye pain, loss of vision or other ENT HEENT: Denies abnormal hearing, dysphagia, ear pain, epistaxis, headache(s), hearing loss, nasal congestion, nasal discharge, post nasal drip, sinus pressure, sore throat or other Cardiovascular Cardiovascular: Denies chest pain, claudication, dyspnea on exertion, edema, lightheadedness, orthopnea, palpitations, paroxysmal nocturnal dyspnea, rapid heart rate, syncope or other Respiratory/Chest Respiratory/Chest: Denies cough, dyspnea, excessive phlegm production, hemoptysis, productive cough, shortness of breath at rest, shortness of breath with exertion, wheezing or other Gastrointestinal Gastrointestinal: Reports abdominal pain, hematochezia and nausea; Denies coffee ground emesis, constipation, diarrhea, dyspepsia, hematemesis, loose stools, melena, vomiting or other Genitourinary Genitourinary: Reports urinary incontinence; Denies burning urination, difficulty urinating, dysuria, hematuria, nocturia, urinary frequency, urinary hesitancy, urinary urgency or other Musculoskeletal Musculoskeletal: Reports back pain, joint pain and joint stiffness; Denies arthralgias, joint swelling, myalgias, neck pain or other Neurologic Neurologic: Reports numbness and paresthesias; Denies abnormal gait, abnormal speech, confusion, disequilibrium, dizziness, focal weakness, headache(s), seizure-like activity, seizures, syncope, tingling, tremor(s) or other Psychiatric Psychiatric: Reports anxiety and depression; Denies homicidal ideation, suicidal ideation or other Endocrine Endocrinology: Denies change in body appearance, cold intolerance, excessive sweating, heat intolerance, polydipsia, polyuria or other Hematologic/Lymphatic Hematologic/Lymphatic: Reports easy bleeding and easy bruising; Denies anemia, lymphadenopathy or other Allergic/Immunologic Allergic/Immunologic: Reports asthma; Denies rhinitis, hives, eczemia or other Vital Signs Vital Signs Vital Signs: 08/25/23 18:37 08/25/23 19:45 08/25/23 20:11 Temperature 98.4 F Temperature Source Temporal Pulse Rate 91 Pulse Rate [Lying] Pulse Rate [Sitting (for 1 minute prior to obtaining)] Pulse Rate [Standing (for 1 minute prior to obtaining)] Respiratory Rate 18 Blood Pressure 199/83 H 193/89 H 147/70 H Blood Pressure [Lying] Blood Pressure [Sitting (for 1 minute prior to obtaining)] Blood Pressure [Standing (for 1 minute prior to obtaining)] Blood Pressure Mean 121 123 95 Blood Pressure Mean [Lying] Blood Pressure Mean [Sitting (for 1 minute prior to obtaining)] Blood Pressure Mean [Standing (for 1 minute prior to obtaining)] Pulse Ox 97 Oxygen Delivery Method Room Air 08/25/23 21:00 Temperature Temperature Source Pulse Rate Pulse Rate [Lying] 85 Pulse Rate [Sitting (for 1 minute prior to obtaining)] 90 Pulse Rate [Standing (for 1 minute prior to obtaining)] 89 Respiratory Rate Blood Pressure Blood Pressure [Lying] 152/51 H Blood Pressure [Sitting (for 1 minute prior to obtaining)] 164/79 H Blood Pressure [Standing (for 1 minute prior to obtaining)] 164/81 H Blood Pressure Mean Blood Pressure Mean [Lying] 84 Blood Pressure Mean [Sitting (for 1 minute prior to obtaining)] 107 Blood Pressure Mean [Standing (for 1 minute prior to obtaining)] 108 Pulse Ox Oxygen Delivery Method Weight Weight: 108.2 kg Body Mass Index (BMI) 40.9 Physical Exam Const alert, oriented x3, no apparent distress and well nourished; Negative for average body habitus Constitutional Narrative: Morbidly obese, upper middle-aged, white female, sitting up in bed, appears comfortable, nontoxic General Appearance: cooperative HEENT normocephalic, head/scalp atraumatic, hearing grossly normal bilaterally and moist oral mucous membranes HEENT Narrative: Mallampati is 3-4, no thrush Eyes PERRL, EOMs intact bilaterally and conjunctivae normal Eyes Narrative: No scleral icterus Neck no lymphadenopathy and supple Neck Narrative: Trachea mid line, the neck is short and thick, no thyroid enlargement noted Resp normal respiratory effort, no retractions, no use of accessory muscles and clear to auscultation bilaterally Auscultation: Negative for rales, rhonchi or wheezes Cardio regular rate, regular rhythm, S1 normal heart sound, S2 normal heart sound, no murmurs, no rub and no gallops GI normal to inspection, nondistended, normoactive bowel sounds and soft to palpation GI Narrative: Mild tenderness right lower quadrant to mid abdominal area Extremity no clubbing, cyanosis or edema Extremity Narrative: Pedal pulses are 2+ Skin no rashes or lesions noted, no wounds, skin turgor normal, no jaundice, no petechiae and no mottling Neuro oriented x3, CN's II-XII intact bilaterally, moves all extremities and no focal motor deficits Neuro Narrative: Bilateral lower extremity neuropathy in stocking glove pattern, generalized weakness noted without focal deficit Speech: speech normal Psych affect normal Psych Narrative: Eye contact is good, patient is very pleasant Results Lab / Micro Data Attestation: I reviewed the patient's lab results. 08/25/23 20:09 08/25/23 20:09 Labs: Laboratory Results - last 24 hr 08/25/23 20:09: WBC 8.6, RBC 5.11, Hgb 14.8, Hct 46.3, MCV 90.6, MCH 29.0, MCHC 32.0, RDW Std Deviation 45.7 H, RDW Coeff of [place] 13.8, Plt Count 293, MPV 10.5, Immature Gran % (Auto) 0.600, Neut % (Auto) 63.4, Lymph % (Auto) 23.5, [place] % (Auto) 9.9, Eos % (Auto) 1.4, Baso % (Auto) 1.2 H, Absolute Neuts (auto) 5.4, Absolute Lymphs (auto) 2.02, Nucleated RBC % 0, PT 19.3 H, INR 1.6, Sodium 140, Potassium 3.3 L, Chloride 104, Carbon Dioxide 29.0, Anion Gap 7, BUN 8, Creatinine 0.74, Estim Creat Clear Calc 67.19, Est GFR (MDRD) Af Amer 101, Est GFR (MDRD) Non-Af 84, BUN/Creatinine Ratio 10.8, Glucose 141 H, Lactic Acid 2.0, Calcium 8.7 Radiology Impression Abdomen/Pelvis CT 08/25/23 19:55 IMPRESSION: 1. 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 2. T8 vertebral body sclerosis status post vertebral augmentation presumptively for treatment of a compression fracture. 3. Fatty liver and hepatomegaly. 4. Possible subacute compression fracture of L3. If there is clinical suspicion for osteomyelitis, recommend MRI lumbar spine with IV contrast. 5. Minimal colonic diverticulosis without evidence of acute diverticulitis. Electronically Signed: Travis Baldwin DO at 21:28 EST , Assessment & Plan Assessment/Plan (1) Bright red blood per rectum: (2) Acute lower GI bleeding: (3) Subtherapeutic international normalized ratio (INR): (4) Hypokalemia: PLAN: Plan Bright red blood per rectum/acute lower GI bleeding -Suspect diverticular bleed with presentation and symptoms -CT of the abdomen pelvis shows no acute findings in the abdomen or colon -Patient had colonoscopy and EGD in 2021 -EGD demonstrated large hiatal hernia and gastric polyps with irregular Z-line -Colonoscopy demonstrated 2 1 to 2 mm polyps in the descending and transverse colon which were removed with cold snare as well as diverticulosis in the rectosigmoid colon and sigmoid colon -Hold anticoagulation -We will cycle hemoglobin every 6 hours -Transfuse for hemoglobin less than 7 or precipitous drop -Consult GI Hypokalemia -Patient is on chronic potassium supplementation -We will give an extra dose of 40 mill equivalents of p.o. potassium -Repeat BMP in a.m. -Check a.m. magnesium level History of PE/DVT with subtherapeutic INR -Repeat INR in a.m. -Hold anticoagulation due to above GI bleeding -Most recent DVT was about 1 year ago and lower extremity -Restart anticoagulation as soon as possible and will need bridged Nonobstructive CAD/history of aortic valve replacement -Continue medications as noted -Hold Coumadin with GI bleed -Medically stable at this time Recurrent falls -CT of the abdomen pelvis shows subacute compression fracture at T8 which I suspect is related to this -Patient does not complain of any back pain at this time -PT/OT consultation -Continue ongoing outpatient physical therapy after discharge CHELSEY -Patient utilizes BiPAP 08/28 at home and will continue here History of asthma/COPD -Continue home inhalers -Not on any chronic oxygen Osteoporosis -Hold home alendronate DM-2 -Continue home Farxiga -Restart home Ozempic at discharge -Continue home basal insulin -Sliding scale -Accu-Cheks as ordered Chronic constipation -Continue home stool softeners -As needed MiraLAX Hypertension -Continue home diltiazem -Continue home PIPPA inhibitor -Hold home Lasix 40 mg Friday and restart at discharge Hyperlipidemia -Continue home fenofibrate -Hold home statin as it is nonformulary and restart at discharge Insomnia -Continue home melatonin -Continue home trazodone Diabetic neuropathy -Continue Lyrica History of migraine headaches -Continue home as needed Maxalt GERD -Continue home PPI Obesity -BMI 39.5 -Recommend weight loss -Complicates treatment/prognosis/outcomes DVT prophylaxis -SCDs -Hold home Coumadin due to bleeding and restart as soon as able CODE STATUS -Full code as verified on admission Charges/Coding Visit Charges Inpatient E&M: 72408 Init Hosp L2
[2023-08-25 23:32] LABS: Bedside Glucose 119 mg/dL (74-106)
[2023-08-26] VITALS (12 sets, daily range): BP systolic 145–189; BP diastolic 40–87; PULSE 77–92; RESP 10–22; TEMP 36.3–36.7; O2SAT 91–99; BMI 39.4
[2023-08-26] MEDS: Potassium Chloride Oral Tablet 20 MEQ 40 MEQ PO (00:11)
[2023-08-26] MEDS: Ipratropium/Albuterol Sulfate 3 ML AMPUL.NEB INHALATION ×4 (00:11→19:42)
[2023-08-26 00:18] LABS: Hematocrit 44.7 % (37-47); Hemoglobin 14.3 g/dL (12.0-15.0)
[2023-08-26 00:19] LABS: Reflex Lactate? Y
[2023-08-26 00:52] LABS: Lactic Acid 1.9 mmol/L (0.4-1.9)
[2023-08-26] MEDS: Pregabalin 75 MG Capsule 150 MG PO ×3 (06:35→22:14)
[2023-08-26] MEDS: Acetaminophen 500 MG Tablet 1000 MG PO (06:40)
[2023-08-26 06:59] LABS: Bedside Glucose 112 mg/dL (74-106)
[2023-08-26 07:10] LABS: Hematocrit 41.7 % (37-47); Hemoglobin 13.3 g/dL (12.0-15.0)
[2023-08-26] MEDS: Budesonide Respules 0.5 MG/2 ML AMPUL.NEB. INHALATION ×2 (07:10→19:42)
[2023-08-26 07:21] LABS: International Normalized Ratio 1.7; Prothrombin Time (Protime)PT. 20.1 SECONDS (11.7-14.9)
[2023-08-26 07:48] LABS: ALB/GLOB Ratio 0.9 RATIO (0.9-2.4); AST(SGOT) 26 U/L (15-37); Alanine Aminotransfer ALT/SGPT 31 U/L (13-56); Alkaline Phosphatase 55 U/L (45-117); Anion Gap 6 (5-15); BUN 7 mg/dL (7-18); BUN/Creat Ratio 16.7 RATIO (10-20); Calcium,Total 8.4 mg/dL (8.5-10.1); Chloride 106 mmol/L (98-107); Creatinine, Serum 0.42 mg/dL (0.55-1.02); EST Glomerular Filtration Rate 162 mL/min (>60); Est Glom Filt Rate - Afr Amer 196 mL/min (>60); Estimated Creatinine Clearance 118.39 ml/min; Globulin 3.2 g/dL (2.2-4.2); Glucose 117 mg/dL (74-106); Magnesium 2.4 mg/dL (1.6-2.6); Phosphorus 3.9 mg/dL (2.5-4.9); Potassium 3.9 mmol/L (3.5-5.1); Protein, Total 6.2 g/dL (6.4-8.2); Sodium Level 141 mmol/L (136-145)
[2023-08-26] MEDS: Empagliflozin 25 MG Tablet PO (09:40)
[2023-08-26] MEDS: Lisinopril 20 MG Tablet PO (09:40)
[2023-08-26] MEDS: Magnesium Chloride 64 MG Delay Rel.Tablet 128 MG PO (09:40)
[2023-08-26] MEDS: Docusate Sodium 100 MG Capsule PO ×2 (09:40→22:08)
[2023-08-26] MEDS: dilTIAZem CD 240 MG Capsule PO (09:40)
[2023-08-26] MEDS: Ascorbic Acid 500 MG Tablet 1500 MG PO (09:41)
[2023-08-26] MEDS: Cholecalciferol (Vit D3) 125 MCG CAPSULE (5,000 UNITS) PO (09:41)
[2023-08-26] MEDS: Pantoprazole Sodium 40 MG Tablet PO ×2 (09:41→22:11)
[2023-08-26] MEDS: Loratadine 10 MG Tablet PO (09:41)
[2023-08-26] MEDS: Potassium Chloride Oral Tablet 20 MEQ PO ×2 (09:41→17:42)
[2023-08-26] MEDS: Fluoxetine HCl 40 MG CAPSULE PO (09:41)
[2023-08-26] MEDS: Azelastine HCl NASAL.SRY 2 SPRAY NASAL ×2 (09:42→22:07)
[2023-08-26] MEDS: Montelukast 10 MG Tablet PO (09:42)
[2023-08-26] MEDS: Fluticasone 0.05% 1 SPRAY NASAL.SRY 2 SPRAY NASAL ×2 (09:44→22:09)
[2023-08-26] MEDS: Insulin Glargine-YFGN 100 UNIT/ML Pen 50 UNIT SC ×2 (09:46→22:10)
[2023-08-26 10:46] LABS: Hematocrit 43.8 % (37-47); Hemoglobin 13.8 g/dL (12.0-15.0)
[2023-08-26] MEDS: Insulin Lispro 100 UNIT/ML INSULN.PEN SC (11:28)
[2023-08-26 11:40] LABS: Bedside Glucose 189 mg/dL (74-106)
--- NOTE | 2023-08-26 12:36 | CASEMGMT ---
Social Work Living Will and Healthcare POA both in [facility], Alirio Kelley is listed as healthcare POA. HAYLIE Ordaz
--- NOTE | 2023-08-26 13:44 | CASEMGMT ---
Social Work Social Determinants of Health assessment completed and resources provided, see assessment. Pt currently has services through [facility] and her day care teacher is Dariana Peres. Pt qualifies for 30 hours of aid services a week however she is currently only receiving 12 hours due to staffing. Pt does receive home delivered meals. LUANNE left for Dariana notifying of admission. LUANNE to update at time of discharge. JOHN Russo
--- NOTE | 2023-08-26 14:00 | CASEMGMT ---
JOSS FIERRO Assessment: Face to Face with pt for initial transition planning/care coordination assessment. JOSS FIERRO introduced self and role at [facility], pt voices understanding and consents to assessment. Pt's daughter and granddaughter are also in the room per pt's permission. Pt is A&O x4 and answers all questions appropriately at this time. Care providers, pharmacy, and demographics verified/updated. Admitting Dx: Lower Gastrointestinal Bleed PCP: Claudio Specialists: [facility] (Cement Truck Driver - unsure of who), Noel (Budget Specialist), Hu (Executive Asst), Lionel (ENT), [facility] (Orthopedics) Preferred Pharmacy: [facility] Retail Insurance: Months Of Me [facility] Prescription Benefit: yes LNOK: Alirio Kelley () Living Will/HCPOA: Yes and Yes; states , Alirio, is her HCPOA. Living Arrangements: Pt lives with her in a 1 story apt. that is [place]. No steps to enter. Prior to this admission, pt. states she would use her cane or do furniture walking to ambulate in her home as her has a lot of DME that takes up room and does not allow room for her rollator. Pt. states she does use her rollator outside. Pt. states she does her own toileting but needs assistance with showering (an aid helps). States she also goes to [employer] once a week for a shower. States the aid also assists with cleaning (she is borrowing her 's aid as her own aid quit). Pt. states she gets Meals on Wheels for two meals a day and cooks dinner herself. Transportation: [facility] transportation, [employer], or her daughter. DME: Shower chair, cane, rollator, W/C, medical alert system, oxygen at 2LPM HS bled through her line into her BIPAP, Nebulizer, pulse ox, glucometer/supplies, and BP cuff. Denies need for additional DME at this time. HHC/SNF: States she was at [facility] in 2022. States she has HHC via [facility] for SN (comes once a week for 5 weeks for set-up of medications). and is scheduled with [facility] for outpatient PT. Pt. states she also has a shoe caser through [facility] Mimi: Dariana [phone]. Pt states no concerns with going home at time of dc. Pt states no further concerns/needs. CM to follow. Advised pt to ask CM if any further question/concerns/needs arise, voices understanding. Pt Goal: Home with HHC for SN and continue outpatient therapy. Plan:Home with resumption of HHC (SN) and outpatient therapy at [facility]. Follow PT/OT; follow GI and scope.
[2023-08-26 16:37] LABS: Bedside Glucose 139 mg/dL (74-106)
--- NOTE | 2023-08-26 16:39 | EX.PCM.CON.G ---
HPI Consult Data Date of Consult: 08/26/23 HPI Narrative Reason for Consultation: Lower GI bleeding HPI Narrative: NATHALIE HERMAN, is a 62 F who presents to the emergency department complaint of rectal bleeding that started today. She had 3 episodes of bright red blood per rectum. Patient also is complaining of some right lower quadrant abdominal pain that she has had for about a week. She was seen by her primary care physician today and had a urine dip and had a urine culture sent but did not feel like she had a urinary tract infection. She has had several episodes of bright red blood per rectum today. She had a colonoscopy done in 2021 which revealed diverticulosis but no diverticulitis and she had about 4 polyps removed at that time but no other findings were present. EGD was done at that time as well and showed large hiatal hernia with an abnormal Z-line but was otherwise unremarkable. She did have bright red blood per rectum in the emergency department. Patient on Coumadin for history of DVT and PE. Patient tells me a week ago she had a mild case of some rectal bleeding that did not last just 1 episode. Patient last checked her INR within the last week and it was around 2.5. CBC was unremarkable with a hemoglobin of 14.8. Baseline hemoglobin appears to run between 13 and 15. She was having ongoing bright red bowel movements however in the emergency department. Coags were obtained and she is on Coumadin at baseline and her INR was 1.6. Chemistry panel showed mild hypokalemia with a potassium of 3.3 but was otherwise unremarkable. Her lactic acid was 2.0. 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 FOR[facility]LY [facility] Medical History Anxiety Arthritis Asthma Atherosclerotic heart disease of [place] coronary artery without angina pectoris Back pain Back pain with sciatica Bilateral carotid bruits BiPAP (biphasic positive airway pressure) dependence Body mass index 45.0-49.9, adult Cardiology follow-up encounter Carotid artery disease COPD (chronic obstructive pulmonary disease) COVID-19 Depression Diabetes Diastolic heart failure Discoloration of skin Easy bruising Essential hypertension Excessive bleeding High cholesterol History of DVT (deep vein thrombosis) History of echocardiogram History of edema History of pain when walking History of pulmonary embolism History of steroid therapy History of stress test History of transcatheter aortic valve replacement (TAVR) (~04/19/21) Hx of transesophageal echocardiography (YOLNADA) for monitoring Insulin dependent diabetes mellitus Leg cramps Migraine headache Morbid obesity Non-smoker Nonrheumatic aortic (valve) stenosis On home oxygen therapy CHELSEY treated with BiPAP Peripheral neuropathy Personal history of anaphylaxis Positive FIT (fecal immunochemical test) Pulmonary embolism Restless legs Rotator cuff arthropathy of right shoulder Shortness of breath on exertion TIA (transient ischemic attack) Type 2 diabetes mellitus Home Medications fluoxetine 20 mg capsule 40 mg PO DAILY anxiety 01/26/14 [History Last Taken 04/05/21] potassium chloride 10 mEq tablet,extended release(part/cryst) 20 meq PO BID Potassium Chloride 01/06/16 [History Last Taken 08/11/22] Ca 600 mg-D3 800 unit-magnes 40 uz-qpmx-azx-angel-boron chewable tablet 1 ea PO DAILY vitamins 05/27/16 [History Last Taken 04/05/21] fenofibrate nanocrystallized 145 mg tablet 72.5 mg PO QHS cholesterol 04/26/19 [History Last Taken 04/04/21] trazodone 50 mg tablet 50 mg PO QHS sleep 08/09/19 [History Last Taken 04/04/21] epinephrine 0.3 mg/0.3 mL injection, auto-injector 0.3 mg (0.3 mL) IM X1 PRN Anaphylaxis #1 ea 01/18/20 [Rx Last Taken Unknown] albuterol sulfate 2.5 mg/3 mL (0.083 %) solution for nebulization 2.5 mg (3 mL) inhalation Q2H PRN PRN dyspnea, wheezing #180 mL 04/24/20 [Rx Last Taken 07/02/21 09:00] albuterol sulfate 90 mcg/actuation aerosol inhaler 2 inh inhalation Q4H PRN PRN Sob &/Or Wheezing #18 grams 04/24/20 [Rx Last Taken 04/29/22] montelukast 10 mg tablet 10 mg PO DAILY allergies/asthma #30 tabs 12/07/20 [Rx Last Taken 04/05/21] alendronate 70 mg tablet 70 mg PO [employer] 12/21/20 [History Last Taken 08/07/22] nystatin 100,000 unit/gram topical powder 1 applic topical BID PRN PRN YEAST 12/21/20 [History Last Taken 04/05/21] ondansetron 4 mg disintegrating tablet 4 mg PO Q8H PRN Nausea 12/21/20 [History Last Taken Unknown] beclomethasone dipropionate 80 mcg/actuation HFA breath activated aerosol 1 inh inhalation BID Asthma 03/22/21 [History Last Taken 07/02/21 09:00] budesonide-formoterol HFA 160 mcg-4.5 mcg/actuation aerosol inhaler 2 puff inhalation BID asthma 03/22/21 [History Last Taken 04/29/22] furosemide 40 mg tablet 40 mg PO MOWEFR diuresis 03/22/21 [History Last Taken 04/05/21] ipratropium 0.5 mg-albuterol 3 mg (2.5 mg base)/3 mL nebulization soln 3 ml inhalation BID asthma 03/22/21 [History Last Taken 04/05/21] tizanidine 4 mg capsule 4 mg PO Q8H PRN muscle relaxer 03/22/21 [History Last Taken 02/10/23] cyanocobalamin (vitamin B-12) 100 mcg tablet (Vitamin B-12) 100 mcg PO DAILY supplement 04/05/21 [History Last Taken 04/05/21] melatonin 10 mg tablet 12 mg PO QHS sleep 04/05/21 [History Last Taken 04/04/21] pregabalin 150 mg capsule 150 mg PO TID nerve pain 04/05/21 [History Last Taken 08/11/22] diltiazem HCl 240 mg capsule,extended release 24 hr 240 mg PO DAILY BP 04/06/21 [History Last Taken 07/02/21 09:00] meclizine 25 mg tablet 25 mg PO DAILY PRN Vertigo 05/04/21 [History Last Taken Unknown] docusate sodium 100 mg capsule 100 mg PO BID stool softener 08/17/21 [History Last Taken Unknown] magnesium 250 mg tablet 400 mg PO DAILY supplement 08/17/21 [History Last Taken Unknown] L.acidophil-L.casei-B.bifid-B.longum-FOS 2 billion cell-50 mg capsule (Probiotic Blend) 1 cap PO DAILY supplement 11/07/21 [History Last Taken Unknown] ascorbate calcium (vitamin C) 500 mg tablet 1.5 g PO DAILY vitamin 11/07/21 [History Last Taken Unknown] chromium picolinate 200 mcg tablet 200 mcg PO DAILY supplement 11/07/21 [History Last Taken Unknown] clobetasol 0.05 % topical cream 1 applic topical PRN PRN RASH/ITCHING 11/07/21 [History Last Taken Unknown] coconut oil 1,000 mg capsule 1,000 mg PO DAILY supplement 11/07/21 [History Last Taken Unknown] cyclobenzaprine 5 mg tablet 10 mg PO Q8H PRN MUSCLE CRAMPING 11/07/21 [History Last Taken 08/11/22] guaifenesin 400 mg tablet (Mucus Relief) 400 mg PO Q4H PRN PRN Cough 11/07/21 [History Last Taken Unknown] levocetirizine 5 mg tablet 5 mg PO DAILY allergies 11/07/21 [History Last Taken Unknown] polyethylene glycol 3350 17 gram/dose oral powder (Miralax) 17 g PO DAILY PRN PRN Constipation 11/07/21 [History Last Taken Unknown] vitamin K2 45 mcg capsule 100 mcg PO DAILY vitamin 11/07/21 [History Last Taken Unknown] zinc amino acid chelate 50 mg tablet 100 mg PO DAILY supplement 11/07/21 [History Last Taken Unknown] insulin glargine U-300 conc 300 unit/mL (1.5 mL) subcutaneous pen (Toujeo SoloStar U-300 Insulin) 50 unit subcut BID DIABETES 04/29/22 [History Last Taken 04/28/22 25 MG] dapagliflozin propanediol 10 mg tablet (Farxiga) 10 mg PO DAILY diabetes 08/11/22 [History Last Taken 08/11/22] moexipril 15 mg tablet 15 mg PO DAILY 08/11/22 [History Last Taken Unknown] pitavastatin calcium 4 mg tablet (Livalo) 4 mg PO DAILY cholesterol 08/11/22 [History Last Taken Unknown] multivitamin (Daily Multi-Vitamin tablet) 1 tab PO DAILY 06/12/23 [History Last Taken Unknown] omeprazole 40 mg capsule,delayed release 40 mg PO BID 06/12/23 [History Last Taken Unknown] quercetin 500 mg capsule 500 mg PO DAILY 06/12/23 [History Last Taken Unknown] semaglutide 1 mg/dose (4 mg/3 mL) subcutaneous pen injector (Ozempic) 1 mg subcut ECHEVARRIA 06/12/23 [History Last Taken Unknown] tiotropium bromide 18 mcg capsule with inhalation device 1 cap inhalation DAILY 06/12/23 [History Last Taken Unknown] erenumab-aooe 70 mg/mL subcutaneous auto-injector (Aimovig Autoinjector) 70 mg subcut QMONTH #1 mL 06/13/23 [Rx Last Taken Unknown] rizatriptan 10 mg tablet (Maxalt) 10 mg PO Q2H PRN migraine headache #10 tabs 06/13/23 [Rx Last Taken Unknown] warfarin 10 mg tablet 10 mg PO DAILY #30 tabs 06/13/23 [Rx Last Taken Unknown] acetaminophen 500 mg tablet 1,000 mg PO Q8 PRN pain 08/25/23 [History Last Taken Unknown] azelastine-fluticasone 137 mcg-50 mcg/spray nasal spray 2 spray intranasal BID 08/25/23 [History Last Taken Unknown] cholecalciferol (vitamin D3) 125 mcg (5,000 unit) tablet (Vitamin D3) 125 mcg PO DAILY 08/25/23 [History Last Taken Unknown] insulin lispro 100 unit/mL subcutaneous pen (Humalog KwikPen (U-100) Insulin) See Protocol subcut ACHS PRN high blood sugar 08/25/23 [History Last Taken Unknown] oxycodone-acetaminophen 5 mg-325 mg tablet 1 tab PO Q4H PRN pain 08/25/23 [History Last Taken Unknown] Allergy/AdvReac Type Severity Reaction Status Date / Time clindamycin Allergy Rash Verified 08/25/23 18:37 erythromycin base Allergy Rash Verified 08/25/23 18:37 [Erythromycin Base] omalizumab [From Xolair] Allergy Chest Verified 08/25/23 18:37 tightness Penicillins Allergy Rash Verified 08/25/23 18:37 sulfamethoxazole Allergy Chest Verified 08/25/23 18:37 [From Bactrim] tightness trimethoprim [From Bactrim] Allergy Chest Verified 08/25/23 18:37 tightness Sulfa (Sulfonamide AdvReac Unknown Unknown Verified 08/25/23 18:37 Antibiotics) Family History Father Heart disease Diabetes CAD (coronary artery disease) Mother CAD (coronary artery disease) CVA (cerebral vascular accident) Diabetes Brother CAD (coronary artery disease) CVA (cerebral vascular accident) Diabetes Unknown Cancer Grandmother CVA (cerebral vascular accident) Diabetes Grandfather CVA (cerebral vascular accident) Grandmother Myocardial infarction Brother Diabetes Sister Diabetes Surgical History Aortic valve replaced H/O lumbosacral spine surgery History of cardiac catheterization History of section History of hernia repair History of left heart catheterization (LHC) (~01/19/21) History of neck surgery History of rotator cuff surgery Hx of appendectomy Social History household members: spouse housing: apartment pets and animals: Yes Smoking Status: Never smoker second hand exposure: No alcohol intake: current alcohol intake frequency: a few times a week substance use type: does not use caffeine: No what type of physical activity do you participate in: none do you feel safe at home: Yes ROS Constitutional Constitutional: Denies anorexia, change in weight, chills, fatigue, fever(s), malaise, night sweats, weakness or other Eyes Eyes: Denies blurry vision, change in eye color, change in vision, discharge from eye(s), double vision, erythema, eye pain, loss of vision or other ENT HEENT: Denies abnormal hearing, dysphagia, ear pain, epistaxis, headache(s), hearing loss, nasal congestion, nasal discharge, post nasal drip, sinus pressure, sore throat or other Cardiovascular Cardiovascular: Denies chest pain, claudication, dyspnea on exertion, edema, lightheadedness, orthopnea, palpitations, paroxysmal nocturnal dyspnea, rapid heart rate, syncope or other Respiratory/Chest Respiratory/Chest: Denies cough, dyspnea, excessive phlegm production, hemoptysis, productive cough, shortness of breath at rest, shortness of breath with exertion, wheezing or other Gastrointestinal Gastrointestinal: Reports abdominal pain, hematochezia and nausea; Denies coffee ground emesis, constipation, diarrhea, dyspepsia, hematemesis, loose stools, melena, vomiting or other Genitourinary Genitourinary: Reports urinary incontinence; Denies burning urination, difficulty urinating, dysuria, hematuria, nocturia, urinary frequency, urinary hesitancy, urinary urgency or other Musculoskeletal Musculoskeletal: Reports back pain, joint pain and joint stiffness; Denies arthralgias, joint swelling, myalgias, neck pain or other Neurologic Neurologic: Reports numbness and paresthesias; Denies abnormal gait, abnormal speech, confusion, disequilibrium, dizziness, focal weakness, headache(s), seizure-like activity, seizures, syncope, tingling, tremor(s) or other Psychiatric Psychiatric: Reports anxiety and depression; Denies homicidal ideation, suicidal ideation or other Endocrine Endocrinology: Denies change in body appearance, cold intolerance, excessive sweating, heat intolerance, polydipsia, polyuria or other Hematologic/Lymphatic Hematologic/Lymphatic: Reports easy bleeding and easy bruising; Denies anemia, lymphadenopathy or other Allergic/Immunologic Allergic/Immunologic: Reports asthma; Denies rhinitis, hives, eczemia or other Physical Exam Const alert Constitutional Narrative: uncomfortable. Resp no use of accessory muscles Psych Mood & Affect: anxious Lab / Micro Data 08/26/23 10:39 08/26/23 07:00 Labs: Laboratory Results - last 24 hr 08/25/23 20:09: WBC 8.6, RBC 5.11, Hgb 14.8, Hct 46.3, MCV 90.6, MCH 29.0, MCHC 32.0, RDW Std Deviation 45.7 H, RDW Coeff of Carmencita 13.8, Plt Count 293, MPV 10.5, Immature Gran % (Auto) 0.600, Neut % (Auto) 63.4, Lymph % (Auto) 23.5, [place] % (Auto) 9.9, Eos % (Auto) 1.4, Baso % (Auto) 1.2 H, Absolute Neuts (auto) 5.4, Absolute Lymphs (auto) 2.02, Nucleated RBC % 0, PT 19.3 H, INR 1.6, Sodium 140, Potassium 3.3 L, Chloride 104, Carbon Dioxide 29.0, Anion Gap 7, BUN 8, Creatinine 0.74, Estim Creat Clear Calc 67.19, Est GFR (MDRD) Af Amer 101, Est GFR (MDRD) Non-Af 84, BUN/Creatinine Ratio 10.8, Glucose 141 H, Lactic Acid 2.0, Calcium 8.7 08/25/23 23:11: POC Glucose 119 H 08/26/23 00:03: Hgb 14.3, Hct 44.7 08/26/23 00:17: Lactic Acid 1.9 08/26/23 06:33: POC Glucose 112 H 08/26/23 07:00: Hgb 13.3, Hct 41.7, PT 20.1 H, INR 1.7, Sodium 141, Potassium 3.9, Chloride 106, Carbon Dioxide 29.0, Anion Gap 6, BUN 7, Creatinine 0.42 L, Estim Creat Clear Calc 118.39, Est GFR (MDRD) Af Amer 196, Est GFR (MDRD) Non-Af 162, BUN/Creatinine Ratio 16.7, Glucose 117 H, Calcium 8.4 L, Phosphorus 3.9, Magnesium 2.4, Total Bilirubin 0.30, AST 26, ALT 31, Alkaline Phosphatase 55, Total Protein 6.2 L, Albumin 3.0 L, Globulin 3.2, Albumin/Globulin Ratio 0.9 08/26/23 10:39: Hgb 13.8, Hct 43.8 08/26/23 11:21: POC Glucose 189 H 08/26/23 16:12: POC Glucose 139 H Radiology Impression Abdomen/Pelvis CT 08/25/23 19:55 IMPRESSION: 1. 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 2. T8 vertebral body sclerosis status post vertebral augmentation presumptively for treatment of a compression fracture. 3. Fatty liver and hepatomegaly. 4. Possible subacute compression fracture of L3. If there is clinical suspicion for osteomyelitis, recommend MRI lumbar spine with IV contrast. 5. Minimal colonic diverticulosis without evidence of acute diverticulitis. Electronically Signed: Travis Baldwin DO at 21:28 EST , Assessment & Plan Assessment/Plan (1) Bright red blood per rectum: (2) Acute lower GI bleeding: (3) Subtherapeutic international normalized ratio (INR): (4) Hypokalemia: PLAN: Plan 62 with past medical story of see OPD a, PE on chronic anticoagulant patient with:, Diverticulitis see us, obesity, coronary artery disease who presents with lower GI bleed. -Suspect diverticular bleed,, hemorrhoidal bleeding, stercoral ulcer, ischemic colitis. The CT of the abdomen pelvis shows no acute findings in the abdomen or colon. She had colonoscopy and EGD in 2021 -EGD demonstrated large hiatal hernia and gastric polyps with irregular Z-line -Colonoscopy demonstrated 2 1 to 2 mm polyps in the descending and transverse colon which were removed with cold snare as well as diverticulosis in the rectosigmoid colon and sigmoid colon -Agree with hold anticoagulation -She may need a colonoscopy to see if she has hemorrhoidal disease that can be treated endoscopically since she needs to be on anticoagulation or if there is any sign of ulcerative disease such as ischemic colitis, stercoral ulcer syndrome Charges/Coding Visit Charges Inpatient E&M: 40376 Init Hosp L3
--- NOTE | 2023-08-26 16:51 | PCM.PN.HOSP ---
Reason for Visit Reason for Visit: Diagnoses Hypokalemia (08/25/23) Hemorrhage of anus and rectum (08/25/23) Gastrointestinal hemorrhage, unspecified (08/25/23) Abnormal coagulation profile (08/25/23) Subjective Subjective Patient seen at bedside this morning. Sitting comfortably in bedside chair, conversing normally, no acute distress. Patient reports that she has had 2 bowel movements this morning since being transported up to her room with bright red blood per rectum. She denies any pain or discomfort with bowel movements. She does report mild right-sided abdominal pain, same as on admission. She otherwise denies any fevers or chills. Patient notably does have a history of constipation, however has been having fairly regular bowel movements recently. No other acute concerns at this time. Objective Data Objective Data Vital Signs: Vital Signs Temp Pulse Resp BP Pulse Ox O2 Del Method O2 Flow Rate 97.7 F L 79 18 147/63 H 93 Room Air 2 08/26/23 14:13 08/26/23 14:48 08/26/23 14:13 08/26/23 14:48 08/26/23 14:13 08/26/23 14:13 08/26/23 06:00 FiO2 30 08/26/23 04:00 Oxygen Flow Rate (L/min) 2 Oxygen Delivery Method Room Air Weight: 104.4 kg Body Mass Index (BMI) 39.4 Intake & Output: Intake and Output for Last 24 Hours 08/24/23 08/25/23 08/26/23 23:59 23:59 23:59 Intake Total 891.67 / 891.67 Balance 891.67 / 891.67 Lab / Micro Data 08/26/23 10:39 08/26/23 07:00 Labs: Laboratory Results - last 24 hr 08/25/23 20:09: WBC 8.6, RBC 5.11, Hgb 14.8, Hct 46.3, MCV 90.6, MCH 29.0, MCHC 32.0, RDW Std Deviation 45.7 H, RDW Coeff of Carmencita 13.8, Plt Count 293, MPV 10.5, Immature Gran % (Auto) 0.600, Neut % (Auto) 63.4, Lymph % (Auto) 23.5, [place] % (Auto) 9.9, Eos % (Auto) 1.4, Baso % (Auto) 1.2 H, Absolute Neuts (auto) 5.4, Absolute Lymphs (auto) 2.02, Nucleated RBC % 0, PT 19.3 H, INR 1.6, Sodium 140, Potassium 3.3 L, Chloride 104, Carbon Dioxide 29.0, Anion Gap 7, BUN 8, Creatinine 0.74, Estim Creat Clear Calc 67.19, Est GFR (MDRD) Af Amer 101, Est GFR (MDRD) Non-Af 84, BUN/Creatinine Ratio 10.8, Glucose 141 H, Lactic Acid 2.0, Calcium 8.7 08/25/23 23:11: POC Glucose 119 H 08/26/23 00:03: Hgb 14.3, Hct 44.7 08/26/23 00:17: Lactic Acid 1.9 08/26/23 06:33: POC Glucose 112 H 08/26/23 07:00: Hgb 13.3, Hct 41.7, PT 20.1 H, INR 1.7, Sodium 141, Potassium 3.9, Chloride 106, Carbon Dioxide 29.0, Anion Gap 6, BUN 7, Creatinine 0.42 L, Estim Creat Clear Calc 118.39, Est GFR (MDRD) Af Amer 196, Est GFR (MDRD) Non-Af 162, BUN/Creatinine Ratio 16.7, Glucose 117 H, Calcium 8.4 L, Phosphorus 3.9, Magnesium 2.4, Total Bilirubin 0.30, AST 26, ALT 31, Alkaline Phosphatase 55, Total Protein 6.2 L, Albumin 3.0 L, Globulin 3.2, Albumin/Globulin Ratio 0.9 08/26/23 10:39: Hgb 13.8, Hct 43.8 08/26/23 11:21: POC Glucose 189 H 08/26/23 16:12: POC Glucose 139 H Radiography Diagnostic Testing: Radiology Impression Abdomen/Pelvis CT 08/25/23 19:55 IMPRESSION: 1. 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 2. T8 vertebral body sclerosis status post vertebral augmentation presumptively for treatment of a compression fracture. 3. Fatty liver and hepatomegaly. 4. Possible subacute compression fracture of L3. If there is clinical suspicion for osteomyelitis, recommend MRI lumbar spine with IV contrast. 5. Minimal colonic diverticulosis without evidence of acute diverticulitis. Electronically Signed: Travis Baldwin DO at 21:28 EST , Physical Exam Const alert, oriented x3, no apparent distress, average body habitus, healthy appearing and well nourished Constitutional Narrative: Obese. General Appearance: cooperative, comfortable, well kempt and well developed HEENT normocephalic, head/scalp atraumatic, hearing grossly normal bilaterally, nasal mucous membranes and turbinates normal and moist oral mucous membranes Eyes PERRL, EOMs intact bilaterally and conjunctivae normal Neck full ROM, no lymphadenopathy and supple Lymph Lymphatic: no lymphadenopathy noted Chest inspection of chest normal Resp normal respiratory effort, normal air movement, no use of accessory muscles and clear to auscultation bilaterally Cardio regular rate, regular rhythm, no murmurs and peripheral pulses 2+ throughout GI normal to inspection, nondistended, normoactive bowel sounds, soft to palpation and non-distended GI Narrative: Mildly tender to palpation in right flank region. Back/Spine normal ROM Extremity normal to inspection, full ROM and no pedal edema Skin no rashes or lesions noted Psych mental status grossly normal Assessment & Plan Assessment/Plan (1) Bright red blood per rectum: PLAN: Plan Patient is a 62-year-old female who presented to [facility] ED on 08/25/2023 with bright red blood per rectum. 1. Bright red blood per rectum, suspected lower GI bleed Suspect diverticular bleed given patient's presentation and symptoms. Had known diverticulosis in sigmoid and rectosigmoid colon on colonoscopy in 2021. CT abdomen pelvis on admission showed no acute findings. Hemoglobin notably 14 on admission, mildly decreased to 13 since admission but stable. Hemodynamically stable. ? Gastroenterology consulted. N.p.o. at midnight. Initially checking CBCs every 6 hours, okay to decrease to daily checks. Holding home warfarin. 2. History of PE/DVT on Coumadin ? Most recent DVT was about 1 year ago and lower extremity. INR notably was subtherapeutic at 1.6 on admission. Holding Coumadin for GI bleed as above. Restart Coumadin when able, will need bridged to therapeutic INR with heparin drip prior to discharge. Chronic medical conditions: ? Chronic constipation: Patient reports improvement since colonoscopy in 2021. Continue home stool softeners with as needed MiraLAX. ? Morbid obesity: BMI 39 on admit. Encouraged lifestyle modifications. ? Nonobstructive CAD, history of aortic valve replacement, HTN, HLD: Holding home Coumadin, continue other home medications. ? Recurrent falls: CT abdomen pelvis on admit showed subacute compression fracture at T8, likely related to falls. Patient denies back pain. PT/OT/case management following. Continue ongoing outpatient physical therapy after discharge. ? CHELSEY: Continue BiPAP at night. ? Asthma/COPD: Continue home inhalers. ? Osteoporosis: Holding home alendronate. ? Type 2 diabetes with neuropathy: Continue home basal insulin with sliding scale insulin as needed. Continue home Farxiga. Restart home Ozempic on discharge. ? Insomnia: Continue home melatonin and trazodone. ? GERD: Continue home PPI. DVT prophylaxis: SCDs CODE STATUS: Full code, verified Expected disposition: Home, 1 to 2 days Total clinical time spent by myself addressing the patient's medical issues, reviewing all the data, and collaborating with patient's care team: 35 minutes. Charges/Coding Visit Charges Inpatient E&M: 63737 Subs Hosp L2
[2023-08-26 17:11] LABS: Hematocrit 43.1 % (37-47); Hemoglobin 13.6 g/dL (12.0-15.0)
[2023-08-26] MEDS: Bisacodyl 5 MG Tablet 20 MG PO (17:42)
[2023-08-26] MEDS: Polyethylene Glycol 3350 BOWEL PREP 1 BOTTLE PO (20:07)
[2023-08-26] MEDS: traZODone 50 MG Tablet PO (22:08)
[2023-08-26] MEDS: Fenofibrate 48 MG Tablet PO (22:11)
[2023-08-26] MEDS: MELATONIN 10 MG TABLET PO (22:11)
[2023-08-27] VITALS (12 sets, daily range): BP systolic 136–175; BP diastolic 67–94; PULSE 80–92; RESP 16–18; TEMP 36–36.9; O2SAT 92–95
[2023-08-27 01:04] LABS: Bedside Glucose 159 mg/dL (74-106)
[2023-08-27] MEDS: 0.9% Saline Lock 10 ML Syringe IV ×2 (05:48→08:45)
[2023-08-27 06:45] LABS: Hematocrit 40.3 % (37-47); Hemoglobin 12.7 g/dL (12.0-15.0); Mean Corp Hgb Conc 31.5 g/dL (32-36); Mean Corpuscular Hgb 29.3 pg (27.0-32.0); Mean Corpuscular Volume 92.9 fL (81-99); Mean Platelet Vol. 10.6 fl (6.2-12.0); Platelet Count 293 K/mm3 (150-450); RBC Distribution Width CV 14.1 % (11.6-14.6); RBC Distribution Width SD 47.5 fl (35.1-43.9); Red Blood Count 4.34 M/mm3 (4.2-5.4); White Blood Count 7.8 K/mm3 (4.4-11.0)
[2023-08-27 06:53] LABS: Prothrombin Time (Protime)PT. 22.5 SECONDS (11.7-14.9)
[2023-08-27 06:54] LABS: Partial Thromboplast Time 39.6 Seconds (24.1-36.2)
[2023-08-27 07:08] LABS: Bedside Glucose 122 mg/dL (74-106)
[2023-08-27 07:31] LABS: AST(SGOT) 42 U/L (15-37); Alanine Aminotransfer ALT/SGPT 29 U/L (13-56); Albumin, Serum 2.9 g/dL (3.2-5.0); Alkaline Phosphatase 59 U/L (45-117); Bilirubin, Direct < 0.05 mg/dL (0.00-0.30); Globulin 3.3 g/dL (2.2-4.2); Protein, Total 6.2 g/dL (6.4-8.2)
[2023-08-27] MEDS: Ipratropium/Albuterol Sulfate 3 ML AMPUL.NEB INHALATION ×2 (07:51→20:21)
[2023-08-27] MEDS: Budesonide Respules 0.5 MG/2 ML AMPUL.NEB. INHALATION ×2 (07:51→20:21)
[2023-08-27 08:32] LABS: Hemoglobin A1c 5.5 % (3.8-5.6)
--- NOTE | 2023-08-27 08:42 | EKG12_ITS ---
Test Reason : PRE OP Blood Pressure : / mmHG Vent. Rate : 084 BPM Atrial Rate : 084 BPM P-R Int : 230 ms QRS Dur : 140 ms QT Int : 416 ms P-R-T Axes : 032 -26 008 degrees QTc Int : 491 ms Sinus rhythm with 1st degree A-V block Right bundle branch block Abnormal ECG When compared with ECG of 11-JUN-2023 23:35, No significant change was found Confirmed by DARION MAURICIO, ADITHYA ([id number]), editorial project manager LEIGHTON STALLWORTH ([id number]) on 09/03/2023 1:00:16 PM Referred By: NOAH Confirmed By:ADITHYA ORLANDO MD
[2023-08-27 08:59] LABS: Anion Gap 5 (5-15); BUN 9 mg/dL (7-18); BUN/Creat Ratio 21.7 RATIO (10-20); Calcium,Total 8.4 mg/dL (8.5-10.1); Chloride 110 mmol/L (98-107); Creatinine, Serum 0.42 mg/dL (0.55-1.02); EST Glomerular Filtration Rate 164 mL/min (>60); Est Glom Filt Rate - Afr Amer 198 mL/min (>60); Estimated Creatinine Clearance 118.39 ml/min; Glucose 111 mg/dL (74-106); Potassium 3.9 mmol/L (3.5-5.1); Sodium Level 143 mmol/L (136-145)
[2023-08-27] MEDS: Oxycodone/Apap 5/325 Tablet PO ×2 (10:09→14:50)
[2023-08-27] MEDS: Lactated Ringers 1,000 ML 15 ML IV (12:06)
--- NOTE | 2023-08-27 12:45 | COLBX_PTH ---
PATIENT: NATHALIE HERMAN LOC: MS3 U#:[id number] AGE/SX: 62/F ROOM: [facility] RE08/25/[address]: Dr. Ramiro Carey MD : 1960 BED: 1 DIS: 09/03/2023 SPEC #: [id number] RECD: 08/28/23 07:44 STATUS: KAMINI REQ #: [id number] LNIN: 08/27/23 12:[address]: Devyn Alcantar DEPT: SURGICAL PATHOLOGY RECD BY: Noris Shepherd ENTERED: 08/28/23 07:44 SP TYPE: COLON BX OTHR DR: Dr. Erwin Garcia, DO Dr. Ophelia Soria, DO Dr. Kate Lemus, DO Tissues: Rectum, NOS Procedures: Surgery Specimen Level IV Comments: @ Ordering doctor for SUIV edited from to @ by RGOOD at 08/28/23 1540 @ Submitting doctor edited from to @ by RGOOD at 08/28/23 1540 HEADER OPERATION: Colonoscopy with polyp biopsy and hemorrhoid banding PRE-OP DIAGNOSIS: Bright red blood per rectum, acute lower GI bleeding, TISSUE SUBMITTED: Rectal polyp biopsy MICROSCOPIC DIAGNOSIS Rectal polyp, biopsy: Hyperplastic polyp. AM:alexandru 08/29/2023 MICROSCOPIC DESCRIPTION Slides are reviewed. GROSS DESCRIPTION Received in fixative is one container labeled with the patient's name and designated rectal polyp. The specimen consists of one irregular fragment of light day soft tissue that measures 0.3 x 0.3 x 0.1 cm. The specimen is totally submitted in one cassette. / AM:alexandru 08/28/2023 TC:5 [facility]: [id number]
--- NOTE | 2023-08-27 12:55 | OP.CCLET_ITS ---
09/09/2023 Ophelia Soria [address] [place] [address] Re : Colonoscopy procedure for Maryse Kelley Dear Dr. Soria This procedure was performed on Sunday, August 27, 2023. My impressions and recommendations are as follows: Impressions : - Preparation of the colon was poor. - Hemorrhoids found on perianal exam. - Bleeding internal external and internal hemorrhoids. Banded. - Diverticulosis in the recto-sigmoid colon, in the sigmoid colon and in the descending colon. - Stool in the entire examined colon. - No specimens collected. Recommendations : - Return patient to [facility] for ongoing care. - Resume regular diet. - Continue present medications. - Repeat colonoscopy because the bowel preparation was suboptimal. My findings are described in the full procedure note, which is enclosed. If I can be of further assistance, please feel free to contact me at . Sincerely, Devyn Alcantar, 08/27/2023 12:55:10 PM This report has been signed electronically.
--- NOTE | 2023-08-27 12:55 | OP.COLON_ITS ---
Patient Name: Maryse Kelley Procedure Date: 08/27/2023 12:27 PM Date of : 1960 Age: 62 Procedure: Colonoscopy Indications: Hematochezia Providers: Devyn Alcantar DO Medicines: Monitored Anesthesia Care Patient Profile: This is a 62 year old female. Refer to note in patient chart for documentation of history and physical. Last Colonoscopy: within the past 3 months. Complications: No immediate complications. Procedure: Pre-Anesthesia Assessment: - Prior to the procedure, a History and Physical was performed, and patient medications and allergies were reviewed. The patient is competent. The risks and benefits of the procedure and the sedation options and risks were discussed with the patient. All questions were answered and informed consent was obtained. Patient identification and proposed procedure were verified by the physician in the pre-procedure area. Mental Status Examination: alert and oriented. Airway Examination: normal oropharyngeal airway and neck mobility. Respiratory Examination: clear to auscultation. CV Examination: normal. Prophylactic Antibiotics: The patient does not require prophylactic antibiotics. Prior Anticoagulants: The patient has taken no anticoagulant or antiplatelet agents. ASA Grade Assessment: III - A patient with severe systemic disease. After reviewing the risks and benefits, the patient was deemed in satisfactory condition to undergo the procedure. The anesthesia plan was to use monitored anesthesia care (MAC). Immediately prior to administration of medications, the patient was re-assessed for adequacy to receive sedatives. The heart rate, respiratory rate, oxygen saturations, blood pressure, adequacy of pulmonary ventilation, and response to care were monitored throughout the procedure. The physical status of the patient was re-assessed after the procedure. After I obtained informed consent, the scope was passed under direct vision. Throughout the procedure, the patient's blood pressure, pulse, and oxygen saturations were monitored continuously. The was introduced through the anus and advanced to the cecum, identified by appendiceal orifice and ileocecal valve. The colonoscopy was performed without difficulty. The patient tolerated the procedure well. The quality of the bowel preparation was poor. The ileocecal valve, appendiceal orifice, and rectum were photographed. Findings: Hemorrhoids were found on perianal exam. Bleeding internal external and internal hemorrhoids were found during retroflexion. The hemorrhoids were Grade III (internal hemorrhoids that prolapse but require manual reduction). The endoscope was withdrawn. A hemorrhoid was isolated with anoscopy. Nitroglycerin was applied topically to decrease spasm of the anal sphincter. The ShortShot ligator was positioned over the hemorrhoid at the left lateral position. Suction was applied and one rubber band was placed over the hemorrhoid. This was checked to make certain that the muscularis was free of the band. Post-banding digital rectal exam showed band in good position. There were no complications. Multiple small and large-mouthed diverticula were found in the recto-sigmoid colon, sigmoid colon and descending colon. Extensive amounts of stool was found in the entire colon. Impression: - Preparation of the colon was poor. - Hemorrhoids found on perianal exam. - Bleeding internal external and internal hemorrhoids. Banded. - Diverticulosis in the recto-sigmoid colon, in the sigmoid colon and in the descending colon. - Stool in the entire examined colon. - No specimens collected. Recommendation: - Return patient to [facility] for ongoing care. - Resume regular diet. - Continue present medications. - Repeat colonoscopy because the bowel preparation was suboptimal. Procedure Code(s): --- Professional --- 10476, Hemorrhoidectomy, internal, by rubber band ligation(s) 17007, Colonoscopy, flexible; diagnostic, including collection of specimen(s) by brushing or washing, when performed (separate procedure) CPT copyright 2021 [employer]. All rights reserved. The codes documented in this report are preliminary and upon monomer purification operator review may be revised to meet current compliance requirements. Devyn Alcantar DO 08/27/2023 12:55:10 PM This report has been signed electronically. Number of Addenda: 1 Note Initiated On: 08/27/2023 12:27 PM Addendum Number: 1 Addendum Date: 09/09/2023 5:01:07 PM Colonoscopy with biopsy polypectomy was performed to a small 7 mm sigmoid polyp Devyn Alcantar DO 09/09/2023 5:01:54 PM This report has been signed electronically.
--- NOTE | 2023-08-27 14:38 | CHAPLAIN ---
Type of Pastoral Visit _x__ Initial Visit ___ Follow-up Visit ___ On-call Visit ___ General Patient Visit ___ Spiritual Assessment ___ Family Conference ___ Bereavement ___ Rapid Response ___ Code Blue ___ Other (describe below) Pastoral Care Referral From _x__ Patient ___ Family ___ Nurse ___ Physician ___ Bond Runner ___ Keg Filler ___ Other (describe below) Sacrament/Intervention _x__ Active listening ___ Anointing ___ Muslim ___ Bereavement ___ Communion ___ Cathi exploration ___ ___ Life review _x__ Prayer ___ Reconciliation ___ Sacrament of Sick _x__ Supportive presence ___ Wedding ___ Other (describe below) Pastoral Comments patient was just returned from procedure and she explains her situation; pt has been seen before and she gives update on her and family; pt had an extended stay at a SNF and had just gone home a week ago; pt hopes to go home and be able to stay; prayer and presence welcomed; family members are greeted and offered support as they come to the room at this time
[2023-08-27] MEDS: Pregabalin 75 MG Capsule 150 MG PO ×2 (14:47→21:37)
--- NOTE | 2023-08-27 15:26 | PCM.PN.HOSP ---
Reason for Visit Reason for Visit: Diagnoses Hypokalemia (08/25/23) Hemorrhage of anus and rectum (08/25/23) Gastrointestinal hemorrhage, unspecified (08/25/23) Abnormal coagulation profile (08/25/23) Subjective Subjective Patient seen at bedside this morning. Sitting in bed, conversing normally. Does appear to be in mild distress due to right-sided abdomen and flank pain. Patient reports having 4 episodes of bright red blood per rectum yesterday and this morning. States her abdomen feels more distended and full today, and her abdominal pain is mildly worsened yesterday. Patient denies any lightheadedness or dizziness, chest pain, shortness of breath. Was able to complete her colonoscopy prep yesterday per her report. No other acute concerns at this time. Objective Data Objective Data Vital Signs: Vital Signs Temp Pulse Resp BP Pulse Ox O2 Del Method O2 Flow Rate 98.3 F 86 16 157/67 H 94 Room Air 2 08/27/23 13:57 08/27/23 13:57 08/27/23 13:57 08/27/23 13:57 08/27/23 13:57 08/27/23 13:57 08/26/23 06:00 FiO2 30 08/26/23 04:00 Oxygen Flow Rate (L/min) 2 Oxygen Delivery Method Room Air Weight: 104.4 kg Body Mass Index (BMI) 39.4 Intake & Output: Intake and Output for Last 24 Hours 08/25/23 08/26/23 08/27/23 23:59 23:59 23:59 Intake Total 891.67 / 891.67 Balance 891.67 / 891.67 Lab / Micro Data 08/27/23 06:30 08/27/23 06:30 Labs: Laboratory Results - last 24 hr 08/26/23 16:12: POC Glucose 139 H 08/26/23 16:59: Hgb 13.6, Hct 43.1 08/26/23 22:06: POC Glucose 159 H 08/27/23 06:30: WBC 7.8, RBC 4.34, Hgb 12.7, Hct 40.3, MCV 92.9, MCH 29.3, MCHC 31.5 L, RDW Std Deviation 47.5 H, RDW Coeff of Carmencita 14.1, Plt Count 293, MPV 10.6, PT 22.5 H, INR 2.0, APTT 39.6 H, Sodium 143, Potassium 3.9, Chloride 110 H, Carbon Dioxide 28.0, Anion Gap 5, BUN 9, Creatinine 0.42 L, Estim Creat Clear Calc 118.39, Est GFR (MDRD) Af Amer 198, Est GFR (MDRD) Non-Af 164, BUN/Creatinine Ratio 21.7 H, Glucose 111 H, Hemoglobin A1c 5.5, Calcium 8.4 L, Total Bilirubin 0.30, Direct Bilirubin < 0.05, AST 42 H, ALT 29, Alkaline Phosphatase 59, Total Protein 6.2 L, Albumin 2.9 L, Globulin 3.3 08/27/23 06:44: POC Glucose 122 H Physical Exam Const alert and oriented x3 Constitutional Narrative: Pleasant elderly female, morbidly obese, sitting in bed, conversing normally. Mild distress due to abdominal discomfort. General Appearance: cooperative HEENT normocephalic, head/scalp atraumatic, hearing grossly normal bilaterally, nasal mucous membranes and turbinates normal and moist oral mucous membranes Eyes PERRL, EOMs intact bilaterally and conjunctivae normal Neck full ROM, no lymphadenopathy and supple Lymph Lymphatic: no lymphadenopathy noted Chest inspection of chest normal Resp normal respiratory effort, normal air movement, no use of accessory muscles and clear to auscultation bilaterally Cardio regular rate, regular rhythm, no murmurs and peripheral pulses 2+ throughout GI GI Narrative: Moderately distended abdomen, mildly tender to palpation in right lower abdomen and flank region. Remained soft on palpation. Back/Spine normal ROM Extremity normal to inspection, full ROM and no pedal edema Skin no rashes or lesions noted Psych mental status grossly normal Assessment & Plan Assessment/Plan (1) Bright red blood per rectum: PLAN: Plan Patient is a 62-year-old female who presented to [facility] ED on 08/25/2023 with bright red blood per rectum. 1. Bright red blood per rectum Concern for diverticular bleed versus hemorrhoidal bleed on admission. Had known diverticulosis in sigmoid and rectosigmoid colon on colonoscopy in 2021. CT abdomen pelvis on admission showed no acute findings. Hemoglobin notably 14 on admission, mildly decreased to 12-13 since admission but stable. Hemodynamically stable. ? Gastroenterology following. S/p colonoscopy on 08/27 that showed bleeding external and internal hemorrhoids; hemorrhoids were banded. Diverticulosis was noted in the rectosigmoid colon, in the sigmoid colon and descending colon. Unfortunately colon prep was poor. Plan per GI is for repeat colonoscopy. Continue to hold home warfarin for now. Monitor daily CBC. 2. History of PE/DVT on Coumadin ? Most recent DVT was about 1 year ago and lower extremity. INR notably was subtherapeutic at 1.6 on admission. Holding Coumadin for GI bleed as above. Restart Coumadin when able, will need bridged to therapeutic INR with heparin drip prior to discharge. Chronic medical conditions: ? Chronic constipation: Patient reports improvement since colonoscopy in 2021. Continue home stool softeners with as needed MiraLAX. ? Morbid obesity: BMI 39 on admit. Encouraged lifestyle modifications. ? Nonobstructive CAD, history of aortic valve replacement, HTN, HLD: Holding home Coumadin, continue other home medications. ? Recurrent falls: CT abdomen pelvis on admit showed subacute compression fracture at T8, likely related to falls. Patient denies back pain. PT/OT/case management following. Continue ongoing outpatient physical therapy after discharge. ? CHELSEY: Continue BiPAP at night. ? Asthma/COPD: Continue home inhalers. ? Osteoporosis: Holding home alendronate. ? Type 2 diabetes with neuropathy: Continue home basal insulin with sliding scale insulin as needed. Continue home Farxiga. Restart home Ozempic on discharge. ? Insomnia: Continue home melatonin and trazodone. ? GERD: Continue home PPI. DVT prophylaxis: SCDs CODE STATUS: Full code, verified Expected disposition: Home, TBD Total clinical time spent by myself addressing the patient's medical issues, reviewing all the data, and collaborating with patient's care team: 35 minutes. Charges/Coding Visit Charges Inpatient E&M: 97505 Subs Hosp L2
[2023-08-27 17:36] LABS: Bedside Glucose 97 mg/dL (74-106)
[2023-08-27] MEDS: Potassium Chloride Oral Tablet 20 MEQ PO (18:07)
[2023-08-27] MEDS: Azelastine HCl NASAL.SRY 2 SPRAY NASAL (21:34)
[2023-08-27] MEDS: traZODone 50 MG Tablet PO (21:34)
[2023-08-27] MEDS: Pantoprazole Sodium 40 MG Tablet PO (21:34)
[2023-08-27] MEDS: Fenofibrate 48 MG Tablet PO (21:34)
[2023-08-27] MEDS: MELATONIN 10 MG TABLET PO (21:34)
[2023-08-27] MEDS: Fluticasone 0.05% 1 SPRAY NASAL.SRY 2 SPRAY NASAL (21:35)
[2023-08-27] MEDS: Insulin Glargine-YFGN 100 UNIT/ML Pen 50 UNIT SC (21:35)
[2023-08-27] MEDS: Lisinopril 20 MG Tablet PO (21:38)
[2023-08-27] MEDS: dilTIAZem CD 240 MG Capsule PO (21:39)
[2023-08-28] VITALS (8 sets, daily range): BP systolic 125–173; BP diastolic 60–99; PULSE 74–88; RESP 16–20; TEMP 36.4–36.7; O2SAT 93–97
[2023-08-28 01:13] LABS: Bedside Glucose 101 mg/dL (74-106)
[2023-08-28] MEDS: Oxycodone/Apap 5/325 Tablet PO ×3 (03:54→12:46)
[2023-08-28] MEDS: Pregabalin 75 MG Capsule 150 MG PO ×3 (07:02→22:08)
[2023-08-28 07:06] LABS: Hematocrit 38.9 % (37-47); Hemoglobin 12.5 g/dL (12.0-15.0); Mean Corp Hgb Conc 32.1 g/dL (32-36); Mean Corpuscular Hgb 29.8 pg (27.0-32.0); Mean Corpuscular Volume 92.8 fL (81-99); Mean Platelet Vol. 10.3 fl (6.2-12.0); Platelet Count 255 K/mm3 (150-450); RBC Distribution Width CV 14.3 % (11.6-14.6); RBC Distribution Width SD 48.1 fl (35.1-43.9); Red Blood Count 4.19 M/mm3 (4.2-5.4); White Blood Count 8.7 K/mm3 (4.4-11.0)
[2023-08-28] MEDS: Ipratropium/Albuterol Sulfate 3 ML AMPUL.NEB INHALATION ×3 (07:06→19:35)
[2023-08-28] MEDS: Budesonide Respules 0.5 MG/2 ML AMPUL.NEB. INHALATION ×2 (07:06→19:35)
[2023-08-28 07:22] LABS: Bedside Glucose 123 mg/dL (74-106)
[2023-08-28] MEDS: Montelukast 10 MG Tablet PO (08:18)
[2023-08-28] MEDS: Pantoprazole Sodium 40 MG Tablet PO ×2 (08:18→22:08)
[2023-08-28] MEDS: Loratadine 10 MG Tablet PO (08:18)
[2023-08-28] MEDS: Potassium Chloride Oral Tablet 20 MEQ PO ×2 (08:18→17:26)
[2023-08-28] MEDS: Empagliflozin 25 MG Tablet PO (08:18)
[2023-08-28] MEDS: Cholecalciferol (Vit D3) 125 MCG CAPSULE (5,000 UNITS) PO (08:18)
[2023-08-28] MEDS: Docusate Sodium 100 MG Capsule PO (08:19)
[2023-08-28] MEDS: Fluoxetine HCl 40 MG CAPSULE PO (08:19)
[2023-08-28] MEDS: Ascorbic Acid 500 MG Tablet 1500 MG PO (08:19)
[2023-08-28] MEDS: dilTIAZem CD 240 MG Capsule PO (08:19)
[2023-08-28] MEDS: Azelastine HCl NASAL.SRY 2 SPRAY NASAL ×2 (08:19→22:08)
[2023-08-28] MEDS: Lisinopril 20 MG Tablet PO (08:19)
[2023-08-28] MEDS: Fluticasone 0.05% 1 SPRAY NASAL.SRY 2 SPRAY NASAL ×2 (08:20→22:08)
[2023-08-28] MEDS: Magnesium Chloride 64 MG Delay Rel.Tablet 128 MG PO (08:20)
[2023-08-28] MEDS: Insulin Glargine-YFGN 100 UNIT/ML Pen 50 UNIT SC ×2 (08:21→22:09)
--- NOTE | 2023-08-28 11:30 | RAD_ITS ---
STUDY: X-RAY - ABDOMEN/PELVIS REASON FOR EXAM: Female, 62 years old. Worsening abdominal distension w/ pain TECHNIQUE: Single AP view of the abdomen / pelvis. COMPARISON: None. FINDINGS: There is a moderate amount of colonic fecal material. The visualized liver, spleen and kidneys are grossly normal in size and morphology. Normal soft tissue structures. There are diffuse degenerative changes of the visualized lumbar spine. RAD/Abdomen Single View (Portable) IMPRESSION: Moderate amount of fecal material is seen in the colon. Electronically Signed: Lon Fuchs MD at 13:05 EST ,
[2023-08-28 13:00] LABS: Bedside Glucose 108 mg/dL (74-106)
--- NOTE | 2023-08-28 15:22 | PN.HOSP_ITS ---
Reason for Visit Reason for Visit: Diagnoses Hypokalemia (08/25/23) Hemorrhage of anus and rectum (08/25/23) Gastrointestinal hemorrhage, unspecified (08/25/23) Abnormal coagulation profile (08/25/23) Subjective Subjective No acute events overnight. Patient seen at bedside this morning. Sitting in bedside chair, conversing normally, no acute distress. Patient does report continued abdominal distention with mild intermittent right-sided abdominal pain. States she has not had a true bowel movement since prior to admission. Did eat breakfast morning prior to my arrival and states her pain and discomfort worsened after eating. She has not had any further episodes of bright red blood per rectum since colonoscopy yesterday. She otherwise denies any fevers or chills. Denies any chest pain or shortness of breath. No other acute concerns this time. Objective Data Objective Data Vital Signs: Vital Signs Temp Pulse Resp BP Pulse Ox O2 Del Method O2 Flow Rate 97.7 F L 84 16 159/72 H 95 Room Air 2 08/28/23 08:13 08/28/23 08:13 08/28/23 08:13 08/28/23 08:13 08/28/23 09:06 08/28/23 12:02 08/28/23 03:46 FiO2 30 08/26/23 04:00 Oxygen Flow Rate (L/min) 2 Oxygen Delivery Method Room Air Weight: 104.4 kg Body Mass Index (BMI) 39.4 Intake & Output: Intake and Output for Last 24 Hours 08/26/23 08/27/23 08/28/23 23:59 23:59 23:59 Intake Total 891.67 / 891.67 323 / 323 980 / 980 Balance 891.67 / 891.67 323 / 323 980 / 980 Lab / Micro Data 08/28/23 06:45 08/27/23 06:30 Labs: Laboratory Results - last 24 hr 08/27/23 16:33: POC Glucose 97 08/27/23 21:29: POC Glucose 101 08/28/23 06:45: WBC 8.7, RBC 4.19 L, Hgb 12.5, Hct 38.9, MCV 92.8, MCH 29.8, MCHC 32.1, RDW Std Deviation 48.1 H, RDW Coeff of Carmencita 14.3, Plt Count 255, MPV 10.3 08/28/23 06:58: POC Glucose 123 H 08/28/23 12:42: POC Glucose 108 H Radiography Diagnostic Testing: Radiology Impression KUB X-Ray 08/28/23 11:30 IMPRESSION: Moderate amount of fecal material is seen in the colon. Electronically Signed: Lon Fuchs MD at 13:05 EST , Physical Exam Const alert and oriented x3 Constitutional Narrative: Pleasant elderly female, morbidly obese, sitting in bedside chair, conversing normally, no acute distress. General Appearance: cooperative HEENT normocephalic, head/scalp atraumatic, hearing grossly normal bilaterally, nasal mucous membranes and turbinates normal and moist oral mucous membranes Eyes PERRL, EOMs intact bilaterally and conjunctivae normal Neck full ROM, no lymphadenopathy and supple Lymph Lymphatic: no lymphadenopathy noted Chest inspection of chest normal Resp normal respiratory effort, normal air movement, no use of accessory muscles and clear to auscultation bilaterally Cardio regular rate, regular rhythm, no murmurs and peripheral pulses 2+ throughout GI GI Narrative: Moderately distended abdomen, mildly tender to palpation in right lower abdomen and flank region. Remained soft on palpation. Similar to yesterday. Back/Spine normal ROM Extremity normal to inspection, full ROM and no pedal edema Skin no rashes or lesions noted Psych mental status grossly normal Assessment & Plan Assessment/Plan (1) Bright red blood per rectum: PLAN: Plan Patient is a 62-year-old female who presented to [facility] ED on 08/25/2023 with bright red blood per rectum. 1. Bright red blood per rectum Concern for diverticular bleed versus hemorrhoidal bleed on admission. Had kn own diverticulosis in sigmoid and rectosigmoid colon on colonoscopy in 2021. CT abdomen pelvis on admission showed no acute findings. Hemoglobin notably 14 on admission, mildly decreased to 12-13 since admission but stable. Hemodynamically stable. S/p colonoscopy on 08/27 that showed bleeding external and internal hemorrhoids; hemorrhoids were banded. Diverticulosis was noted in the rectosigmoid colon, in the sigmoid colon and descending colon. Unfortunately colon prep was poor. ? Gastroenterology following. Plan for repeat colonoscopy in the outpatient setting in the next 4 weeks. If patient has continued cessation of BRBPR by tomorrow, will restart home warfarin and heparin drip for bridging tomorrow. Continue to monitor daily CBC. 2. History of PE/DVT on Coumadin ? Most recent DVT was about 1 year ago and lower extremity. INR notably was subtherapeutic at 1.6 on admission. Holding Coumadin for GI bleed as above. As noted above, will plan to restart warfarin with heparin drip for bridging tomorrow if patient has no further bleeding from below. 3. Abdominal distention due to acute constipation ? Patient noted to have worsening abdominal distention since admission. KUB 08/28 showed moderate amount of colonic fecal material. We will give one-time doses of milk of magnesia and Dulcolax suppository on 08/28, start senna 2 tablets twice daily. Continue home Colace. MiraLAX as needed. Can consider enemas as needed. Limit opiates for pain management as able. Chronic medical conditions: ? Chronic constipation: Patient reports improvement since colonoscopy in 2021. Treating acute constipation as noted above. ? Morbid obesity: BMI 39 on admit. Encouraged lifestyle modifications. ? Nonobstructive CAD, history of aortic valve replacement, HTN, HLD: Holding home Coumadin, continue other home medications. ? Recurrent falls: CT abdomen pelvis on admit showed subacute compression fracture at T8, likely related to falls. Patient denies back pain. PT/OT/case management following. Continue ongoing outpatient physical therapy after discharge. ? CHELSEY: Continue BiPAP at night. ? Asthma/COPD: Continue home inhalers. ? Osteoporosis: Holding home alendronate. ? Type 2 diabetes with neuropathy: Continue home basal insulin with sliding scale insulin as needed. Continue home Farxiga. Restart home Ozempic on discharge. ? Insomnia: Continue home melatonin and trazodone. ? GERD: Continue home PPI. DVT prophylaxis: SCDs CODE STATUS: Full code, verified Expected disposition: Home, TBD Total clinical time spent by myself addressing the patient's medical issues, reviewing all the data, and collaborating with patient's care team: 35 minutes. Charges/Coding Visit Charges Inpatient E&M: 43018 Subs Hosp L2
--- NOTE | 2023-08-28 15:56 | PN.GI_ITS ---
Subjective Subjective Patient was going to have a distended abdomen. KUB was ordered and it showed a lot of stool burden. She has a history of chronic idiopathic constipation and mineral oil as an outpatient. Objective Data Objective Data Vital Signs: Vital Signs Temp Pulse Resp BP Pulse Ox O2 Del Method O2 Flow Rate 97.7 F L 84 16 159/72 H 95 Room Air 2 08/28/23 08:13 08/28/23 08:13 08/28/23 08:13 08/28/23 08:13 08/28/23 09:06 08/28/23 12:02 08/28/23 03:46 FiO2 30 08/26/23 04:00 Oxygen Flow Rate (L/min) 2 Oxygen Delivery Method Room Air Weight: 230 lb 2.601 oz Body Mass Index (BMI) 39.4 Intake & Output: Intake and Output for Last 24 Hours 08/26/23 08/27/23 08/28/23 23:59 23:59 23:59 Intake Total 891.67 / 891.67 323 / 323 980 / 980 Balance 891.67 / 891.67 323 / 323 980 / 980 Lab / Micro Data 08/28/23 06:45 08/27/23 06:30 Labs: Laboratory Results - last 24 hr 08/27/23 16:33: POC Glucose 97 08/27/23 21:29: POC Glucose 101 08/28/23 06:45: WBC 8.7, RBC 4.19 L, Hgb 12.5, Hct 38.9, MCV 92.8, MCH 29.8, MCHC 32.1, RDW Std Deviation 48.1 H, RDW Coeff of Carmencita 14.3, Plt Count 255, MPV 10.3 08/28/23 06:58: POC Glucose 123 H 08/28/23 12:42: POC Glucose 108 H Radiography Diagnostic Testing: Radiology Impression KUB X-Ray 08/28/23 11:30 IMPRESSION: Moderate amount of fecal material is seen in the colon. Electronically Signed: Lon Fuchs MD at 13:05 EST , Physical Exam Const alert and oriented x3 General Appearance: cooperative HEENT normocephalic, head/scalp atraumatic, hearing grossly normal bilaterally, nasal mucous membranes and turbinates normal and moist oral mucous membranes Eyes PERRL, EOMs intact bilaterally and conjunctivae normal Neck full ROM, no lymphadenopathy and supple Lymph Lymphatic: no lymphadenopathy noted Chest inspection of chest normal Resp normal respiratory effort, normal air movement, no use of accessory muscles and clear to auscultation bilaterally Cardio regular rate, regular rhythm, no murmurs and peripheral pulses 2+ throughout GI GI Narrative: Moderately distended abdomen, mildly tender to palpation in right lower abdomen and flank region. Remained soft on palpation. Similar to yesterday. Back/Spine normal ROM Extremity normal to inspection, full ROM and no pedal edema Skin no rashes or lesions noted Psych mental status grossly normal Assessment & Plan Assessment/Plan (1) Bright red blood per rectum: (2) Acute lower GI bleeding: (3) Subtherapeutic international normalized ratio (INR): (4) Hypokalemia: PLAN: Plan 62 with past medical story of see OPD a, PE on chronic anticoagulant patient with:, Diverticulitis see us, obesity, coronary artery disease who presents with lower GI bleed. -Suspect diverticular bleed,, hemorrhoidal bleeding, stercoral ulcer, ischemic colitis. The CT of the abdomen pelvis shows no acute findings in the abdomen or colon. She had colonoscopy and EGD in 2021 -EGD demonstrated large hiatal hernia and gastric polyps with irregular Z- line -Colonoscopy demonstrated 2 1 to 2 mm polyps in the descending and transverse colon which were removed with cold snare as well as diverticulosis in the rectosigmoid colon and sigmoid colon -Repeat colonoscopy a lot of stool throughout the colon along with some very engorged hemorrhoids that was treated with banding had any more episodes of lower GI bleeding. She did have a little bit of more blood and was much less. -KUB shows severe constipation. I will order GoLytely. Charges/Coding Visit Charges Inpatient E&M: 83588 Subs Hosp L3
[2023-08-28 17:15] LABS: Bedside Glucose 121 mg/dL (74-106)
[2023-08-28] MEDS: Magnesium Hydroxide 30 ML UDC 15 ML PO (17:25)
[2023-08-28] MEDS: Bisacodyl 10 MG Suppository RC (17:26)
[2023-08-28] MEDS: Electrolyte Solution/Peg's 4000 ML 2000 ML PO (17:27)
[2023-08-28] MEDS: MELATONIN 10 MG TABLET PO (22:08)
[2023-08-28] MEDS: Fenofibrate 48 MG Tablet PO (22:08)
[2023-08-28] MEDS: traZODone 50 MG Tablet PO (22:08)
[2023-08-28 22:31] LABS: Bedside Glucose 129 mg/dL (74-106)
[2023-08-29] VITALS (7 sets, daily range): BP systolic 137–176; BP diastolic 60–80; PULSE 69–94; RESP 16–18; TEMP 36.6–37.1; O2SAT 93–97
[2023-08-29] MEDS: Oxycodone/Apap 5/325 Tablet PO ×2 (04:26→23:03)
[2023-08-29] MEDS: Menthol/Lanolin/Calamine/Znox 113 GM Tube 1 APPLIC TOPICAL ×3 (04:31→23:02)
[2023-08-29 05:55] LABS: Hematocrit 35.7 % (37-47); Hemoglobin 11.2 g/dL (12.0-15.0); Mean Corp Hgb Conc 31.4 g/dL (32-36); Mean Corpuscular Hgb 29.3 pg (27.0-32.0); Mean Corpuscular Volume 93.5 fL (81-99); Mean Platelet Vol. 10.8 fl (6.2-12.0); Platelet Count 246 K/mm3 (150-450); RBC Distribution Width CV 14.2 % (11.6-14.6); RBC Distribution Width SD 48.7 fl (35.1-43.9); Red Blood Count 3.82 M/mm3 (4.2-5.4); White Blood Count 8.3 K/mm3 (4.4-11.0)
[2023-08-29] MEDS: Pregabalin 75 MG Capsule 150 MG PO ×3 (06:43→23:03)
[2023-08-29 07:02] LABS: Bedside Glucose 89 mg/dL (74-106)
[2023-08-29] MEDS: Ipratropium/Albuterol Sulfate 3 ML AMPUL.NEB INHALATION ×3 (07:36→19:41)
[2023-08-29] MEDS: Budesonide Respules 0.5 MG/2 ML AMPUL.NEB. INHALATION ×2 (07:36→19:41)
[2023-08-29] MEDS: Potassium Chloride Oral Tablet 20 MEQ PO ×2 (08:17→16:35)
[2023-08-29 08:39] LABS: International Normalized Ratio 1.2; Prothrombin Time (Protime)PT. 15.3 SECONDS (11.7-14.9)
[2023-08-29] MEDS: Azelastine HCl NASAL.SRY 2 SPRAY NASAL ×2 (10:01→23:02)
[2023-08-29] MEDS: Loratadine 10 MG Tablet PO (10:02)
[2023-08-29] MEDS: dilTIAZem CD 240 MG Capsule PO (10:02)
[2023-08-29] MEDS: Docusate Sodium 100 MG Capsule PO ×2 (10:02→23:03)
[2023-08-29] MEDS: Fluticasone 0.05% 1 SPRAY NASAL.SRY 2 SPRAY NASAL ×2 (10:03→23:02)
[2023-08-29] MEDS: Insulin Glargine-YFGN 100 UNIT/ML Pen 50 UNIT SC ×2 (10:04→23:01)
[2023-08-29] MEDS: Pantoprazole Sodium 40 MG Tablet PO ×2 (10:05→23:03)
[2023-08-29] MEDS: Fluoxetine HCl 40 MG CAPSULE PO (10:05)
[2023-08-29] MEDS: Montelukast 10 MG Tablet PO (10:05)
[2023-08-29] MEDS: Ascorbic Acid 500 MG Tablet 1500 MG PO (10:05)
[2023-08-29] MEDS: Magnesium Chloride 64 MG Delay Rel.Tablet 128 MG PO (10:05)
[2023-08-29] MEDS: Empagliflozin 25 MG Tablet PO (10:05)
[2023-08-29] MEDS: Lisinopril 20 MG Tablet PO (10:06)
[2023-08-29] MEDS: Cholecalciferol (Vit D3) 125 MCG CAPSULE (5,000 UNITS) PO (10:06)
[2023-08-29 10:26] LABS: Partial Thromboplast Time 32.4 Seconds (24.1-36.2)
--- NOTE | 2023-08-29 11:00 | CASEMGMT ---
Green Sheet for HHC and Direction Home placed on pt's chart.
--- NOTE | 2023-08-29 11:01 | CASEMGMT ---
JOSS FIERRO called [facility] and verified that pt. is active with them just for SN. Pt. has informed RN that her plan is to resume HHC SN with [facility] once discharged. JOSS FIERRO sent resumption of HHC order to [facility] via [employer].
[2023-08-29] MEDS: Bisacodyl 10 MG Suppository RC (11:15)
[2023-08-29] MEDS: Heparin Injection (Vial) 5,000 UNIT/ML VIAL 8000 UNIT IV (11:20)
[2023-08-29 11:24] LABS: Bedside Glucose 88 mg/dL (74-106)
[2023-08-29] MEDS: HEPARIN/D5w 25,000 UNITS 25,000 UNITS/250 ML IV.SOLN. 15 UNITS CONT INF (11:43)
[2023-08-29] MEDS: 0.9% Saline Lock 10 ML Syringe IV (12:11)
--- NOTE | 2023-08-29 13:32 | PCM.PN.HOSP ---
Reason for Visit Reason for Visit: Diagnoses Hypokalemia (08/25/23) Hemorrhage of anus and rectum (08/25/23) Gastrointestinal hemorrhage, unspecified (08/25/23) Abnormal coagulation profile (08/25/23) Subjective Subjective No acute event overnight. Patient seen at bedside this morning. Sitting comfortably in bedside chair, conversing normally, no acute distress. Patient was given GoLytely yesterday by GI, as well as a Dulcolax suppository for her severe constipation. States she has had 3 bowel movements since yesterday evening. Continues to feel distended this morning but improved from yesterday. States she had a very small amount of blood in 1 of those bowel movements, others were normal. She reports mild abdominal pain, improved from yesterday. Denies any fevers or chills, chest pain, shortness of breath. No other acute concerns this morning. Objective Data Objective Data Vital Signs: Vital Signs Temp Pulse Resp BP Pulse Ox O2 Del Method O2 Flow Rate 97.8 F 79 16 150/72 H 95 Room Air 2 08/29/23 08:02 08/29/23 08:02 08/29/23 08:02 08/29/23 08:02 08/29/23 08:02 08/29/23 08:02 08/28/23 03:46 FiO2 30 08/26/23 04:00 Oxygen Flow Rate (L/min) 2 Oxygen Delivery Method Room Air Weight: 104.4 kg Body Mass Index (BMI) 39.4 Intake & Output: Intake and Output for Last 24 Hours 08/27/23 08/28/23 08/29/23 23:59 23:59 23:59 Intake Total 323 / 323 3980 / 3980 309.25 / 309.25 Balance 323 / 323 3980 / 3980 309.25 / 309.25 Lab / Micro Data 08/29/23 05:10 08/27/23 06:30 Labs: Laboratory Results - last 24 hr 08/28/23 16:57: POC Glucose 121 H 08/28/23 22:04: POC Glucose 129 H 08/29/23 05:10: WBC 8.3, RBC 3.82 L, Hgb 11.2 L, Hct 35.7 L, MCV 93.5, MCH 29.3, MCHC 31.4 L, RDW Std Deviation 48.7 H, RDW Coeff of Carmencita 14.2, Plt Count 246, MPV 10.8 08/29/23 06:42: POC Glucose 89 08/29/23 08:01: PT 15.3 H, INR 1.2, APTT 32.4 08/29/23 11:07: POC Glucose 88 Physical Exam Const alert and oriented x3 Constitutional Narrative: Pleasant elderly female, morbidly obese, sitting in bedside chair, conversing normally, no acute distress. General Appearance: cooperative HEENT normocephalic, head/scalp atraumatic, hearing grossly normal bilaterally, nasal mucous membranes and turbinates normal and moist oral mucous membranes Eyes PERRL, EOMs intact bilaterally and conjunctivae normal Neck full ROM, no lymphadenopathy and supple Lymph Lymphatic: no lymphadenopathy noted Chest inspection of chest normal Resp normal respiratory effort, normal air movement, no use of accessory muscles and clear to auscultation bilaterally Cardio regular rate, regular rhythm, no murmurs and peripheral pulses 2+ throughout GI GI Narrative: Mild to moderately distended abdomen, improved from yesterday. Nontender on palpation. Remains soft on palpation. Back/Spine normal ROM Extremity normal to inspection, full ROM and no pedal edema Skin no rashes or lesions noted Psych mental status grossly normal Assessment & Plan Assessment/Plan (1) Bright red blood per rectum: PLAN: Plan Patient is a 62-year-old female who presented to [facility] ED on 08/25/2023 with bright red blood per rectum. 1. Bright red blood per rectum Concern for diverticular bleed versus hemorrhoidal bleed on admission. Had known diverticulosis in sigmoid and rectosigmoid colon on colonoscopy in 2021. CT abdomen pelvis on admission showed no acute findings. Hemoglobin notably 14 on admission, mildly decreased to 12-13 since admission but stable. Hemodynamically stable. S/p colonoscopy on 08/27 that showed bleeding external and internal hemorrhoids; hemorrhoids were banded. Diverticulosis was noted in the rectosigmoid colon, in the sigmoid colon and descending colon. Unfortunately colon prep was poor. ? Gastroenterology following. Plan for repeat colonoscopy in the outpatient setting in the next 4 weeks. Patient has essentially had cessation of BRBPR as of 08/29, resumed home warfarin with heparin drip for bridging as noted below. Monitor closely for signs of worsening BRBPR. 2. History of PE/DVT on Coumadin Most recent DVT was about 1 year ago and lower extremity. INR notably was subtherapeutic at 1.6 on admission. ? Coumadin held on admission for GI bleed. Given cessation of BRBPR, restarted home warfarin and initiated heparin drip on 08/29 to bridge patient to therapeutic INR. Monitor INR daily. 3. Abdominal distention due to acute constipation, improving; history of chronic constipation Patient has known history of chronic constipation. She states it has been improved since her colonoscopy in 2021, when she was initiated on an aggressive bowel regimen at home. Has now had worsening since admission, no true bowel movements. KUB 08/28 showed moderate amount of colonic fecal material. ? Started on aggressive bowel regimen on 08/28, GI gave 1 dose of GoLytely and patient started on daily Dulcolax suppositories. Had several bowel movements with these interventions. Continue aggressive regimen, monitor. Chronic medical conditions: ? Morbid obesity: BMI 39 on admit. Encouraged lifestyle modifications. ? Nonobstructive CAD, history of aortic valve replacement, HTN, HLD: Holding home Coumadin, continue other home medications. ? Recurrent falls: CT abdomen pelvis on admit showed subacute compression fracture at T8, likely related to falls. Patient denies back pain. PT/OT/case management following. Continue ongoing outpatient physical therapy after discharge. ? CHELSEY: Continue BiPAP at night. ? Asthma/COPD: Continue home inhalers. ? Osteoporosis: Holding home alendronate. ? Type 2 diabetes with neuropathy: Continue home basal insulin with sliding scale insulin as needed. Continue home Farxiga. Restart home Ozempic on discharge. ? Insomnia: Continue home melatonin and trazodone. ? GERD: Continue home PPI. DVT prophylaxis: Warfarin with heparin drip for bridging CODE STATUS: Full code, verified Expected disposition: Home, 1 to 2 days Total clinical time spent by myself addressing the patient's medical issues, reviewing all the data, and collaborating with patient's care team: 35 minutes. Charges/Coding Visit Charges Inpatient E&M: 38760 Subs Hosp L2
[2023-08-29] MEDS: Senna Tablet 2 TABLET PO ×2 (14:04→23:04)
--- NOTE | 2023-08-29 16:07 | PN.GI_ITS ---
Subjective Subjective Patient had an movements yesterday and a couple today. She says she still feels bloated. She is eating a normal diet. She had a little bit of bleeding with 1 bowel movement yesterday and a little bit of bleeding with 1 bowel movement today. Objective Data Objective Data Vital Signs: Vital Signs Temp Pulse Resp BP Pulse Ox O2 Del Method O2 Flow Rate 98.8 F 85 16 137/60 H 95 Room Air 2 08/29/23 13:56 08/29/23 13:56 08/29/23 13:56 08/29/23 13:56 08/29/23 13:56 08/29/23 13:56 08/28/23 03:46 FiO2 30 08/26/23 04:00 Oxygen Flow Rate (L/min) 2 Oxygen Delivery Method Room Air Weight: 230 lb 2.601 oz Body Mass Index (BMI) 39.4 Intake & Output: Intake and Output for Last 24 Hours 08/27/23 08/28/23 08/29/23 23:59 23:59 23:59 Intake Total 323 / 323 3980 / 3980 309.25 / 309.25 Balance 323 / 323 3980 / 3980 309.25 / 309.25 Lab / Micro Data 08/29/23 05:10 08/27/23 06:30 Labs: Laboratory Results - last 24 hr 08/28/23 16:57: POC Glucose 121 H 08/28/23 22:04: POC Glucose 129 H 08/29/23 05:10: WBC 8.3, RBC 3.82 L, Hgb 11.2 L, Hct 35.7 L, MCV 93.5, MCH 29.3, MCHC 31.4 L, RDW Std Deviation 48.7 H, RDW Coeff of Carmencita 14.2, Plt Count 246, MPV 10.8 08/29/23 06:42: POC Glucose 89 08/29/23 08:01: PT 15.3 H, INR 1.2, APTT 32.4 08/29/23 11:07: POC Glucose 88 Physical Exam Const alert and oriented x3 Constitutional Narrative: Pleasant elderly female, morbidly obese, sitting in bedside chair, conversing normally, no acute distress. General Appearance: cooperative HEENT normocephalic, head/scalp atraumatic, hearing grossly normal bilaterally, nasal mucous membranes and turbinates normal and moist oral mucous membranes Eyes PERRL, EOMs intact bilaterally and conjunctivae normal Neck full ROM, no lymphadenopathy and supple Lymph Lymphatic: no lymphadenopathy noted Chest inspection of chest normal Resp normal respiratory effort, normal air movement, no use of accessory muscles and clear to auscultation bilaterally Cardio regular rate, regular rhythm, no murmurs and peripheral pulses 2+ throughout GI GI Narrative: Mild to moderately distended abdomen, improved from yesterday. Nontender on palpation. Remains soft on palpation. Back/Spine normal ROM Extremity normal to inspection, full ROM and no pedal edema Skin no rashes or lesions noted Psych mental status grossly normal Assessment & Plan Assessment/Plan (1) Bright red blood per rectum: (2) Acute lower GI bleeding: (3) Subtherapeutic international normalized ratio (INR): (4) Hypokalemia: PLAN: Plan 62 with past medical story of see OPD a, PE on chronic anticoagulant patient with:, Diverticulitis see us, obesity, coronary artery disease who presents with lower GI bleed. -Suspect diverticular bleed,, hemorrhoidal bleeding, stercoral ulcer, ischemic colitis. The CT of the abdomen pelvis shows no acute findings in the abdomen or colon. She had colonoscopy and EGD in 2021 -EGD demonstrated large hiatal hernia and gastric polyps with irregular Z- line -Colonoscopy demonstrated 2 1 to 2 mm polyps in the descending and transverse colon which were removed with cold snare as well as diverticulosis in the rectosigmoid colon and sigmoid colon -Repeat colonoscopy a lot of stool throughout the colon along with some very engorged hemorrhoids that was treated with banding had any more episodes of lower GI bleeding. She did have a little bit of more blood and was much less. -KUB shows severe constipation. I will order GoLytely. 08/29-patient is feeling better but she still complains of some mild bloating. She has been getting treated with anticoagulation has been no signs of severe bleeding. As an outpatient she is on stool softeners and mineral oil. This can be continued in the hospital. Continue supportive care. Charges/Coding Visit Charges Inpatient E&M: 87160 Subs Hosp L3
[2023-08-29 16:59] LABS: Bedside Glucose 128 mg/dL (74-106)
[2023-08-29 18:34] LABS: Partial Thromboplast Time 58.4 Seconds (24.1-36.2)
[2023-08-29] MEDS: traZODone 50 MG Tablet PO (23:03)
[2023-08-29] MEDS: MELATONIN 10 MG TABLET PO (23:04)
[2023-08-29] MEDS: Fenofibrate 48 MG Tablet PO (23:04)
[2023-08-29 23:29] LABS: Bedside Glucose 110 mg/dL (74-106)
[2023-08-30] VITALS (7 sets, daily range): BP systolic 139–165; BP diastolic 50–69; PULSE 74–83; RESP 16–18; TEMP 36.4–36.8; O2SAT 93–99
[2023-08-30 01:17] LABS: Partial Thromboplast Time 68.3 Seconds (24.1-36.2)
[2023-08-30] MEDS: HEPARIN/D5w 25,000 UNITS 25,000 UNITS/250 ML IV.SOLN. 15 UNITS CONT INF ×2 (03:28→20:30)
[2023-08-30] MEDS: Pregabalin 75 MG Capsule 150 MG PO ×3 (06:39→22:38)
[2023-08-30] MEDS: Oxycodone/Apap 5/325 Tablet PO ×2 (06:49→20:28)
[2023-08-30] MEDS: Ipratropium/Albuterol Sulfate 3 ML AMPUL.NEB INHALATION ×2 (07:05→19:00)
[2023-08-30] MEDS: Budesonide Respules 0.5 MG/2 ML AMPUL.NEB. INHALATION ×2 (07:07→19:00)
[2023-08-30 07:11] LABS: Bedside Glucose 101 mg/dL (74-106)
[2023-08-30 07:31] LABS: Anion Gap 3 (5-15); BUN 9 mg/dL (7-18); BUN/Creat Ratio 22.1 RATIO (10-20); Calcium,Total 8.8 mg/dL (8.5-10.1); Chloride 110 mmol/L (98-107); Creatinine, Serum 0.41 mg/dL (0.55-1.02); EST Glomerular Filtration Rate 168 mL/min (>60); Est Glom Filt Rate - Afr Amer 203 mL/min (>60); Estimated Creatinine Clearance 121.28 ml/min; Glucose 99 mg/dL (74-106); Potassium 3.7 mmol/L (3.5-5.1); Sodium Level 144 mmol/L (136-145)
[2023-08-30 07:55] LABS: Hematocrit 38.4 % (37-47); Hemoglobin 12.1 g/dL (12.0-15.0); Mean Corp Hgb Conc 31.5 g/dL (32-36); Mean Corpuscular Hgb 29.3 pg (27.0-32.0); Mean Platelet Vol. 11.2 fl (6.2-12.0); Platelet Count 265 K/mm3 (150-450); RBC Distribution Width CV 14.3 % (11.6-14.6); RBC Distribution Width SD 48.7 fl (35.1-43.9); Red Blood Count 4.13 M/mm3 (4.2-5.4); White Blood Count 7.8 K/mm3 (4.4-11.0)
[2023-08-30] MEDS: Cholecalciferol (Vit D3) 125 MCG CAPSULE (5,000 UNITS) PO (07:56)
[2023-08-30] MEDS: Senna Tablet 2 TABLET PO ×2 (07:56→20:25)
[2023-08-30] MEDS: dilTIAZem CD 240 MG Capsule PO (07:56)
[2023-08-30] MEDS: Montelukast 10 MG Tablet PO (07:57)
[2023-08-30] MEDS: Ascorbic Acid 500 MG Tablet 1500 MG PO (07:57)
[2023-08-30] MEDS: Magnesium Chloride 64 MG Delay Rel.Tablet 128 MG PO (07:57)
[2023-08-30] MEDS: Lisinopril 20 MG Tablet PO (07:58)
[2023-08-30] MEDS: Potassium Chloride Oral Tablet 20 MEQ PO ×2 (07:58→17:03)
[2023-08-30] MEDS: Fluoxetine HCl 40 MG CAPSULE PO (07:58)
[2023-08-30] MEDS: Docusate Sodium 100 MG Capsule PO ×2 (07:58→20:25)
[2023-08-30] MEDS: Loratadine 10 MG Tablet PO (07:58)
[2023-08-30] MEDS: Empagliflozin 25 MG Tablet PO (07:59)
[2023-08-30] MEDS: Fluticasone 0.05% 1 SPRAY NASAL.SRY 2 SPRAY NASAL ×2 (08:00→20:23)
[2023-08-30] MEDS: Menthol/Lanolin/Calamine/Znox 113 GM Tube 1 APPLIC TOPICAL ×2 (08:01→20:23)
[2023-08-30] MEDS: Azelastine HCl NASAL.SRY 2 SPRAY NASAL ×2 (08:01→20:22)
[2023-08-30] MEDS: Insulin Glargine-YFGN 100 UNIT/ML Pen 50 UNIT SC ×2 (08:02→20:42)
[2023-08-30] MEDS: Pantoprazole Sodium 40 MG Tablet PO ×2 (08:03→20:25)
[2023-08-30 08:09] LABS: Partial Thromboplast Time 65.4 Seconds (24.1-36.2)
[2023-08-30] MEDS: Bisacodyl 10 MG Suppository RC (10:16)
[2023-08-30 12:01] LABS: Bedside Glucose 81 mg/dL (74-106)
[2023-08-30 12:39] LABS: International Normalized Ratio 1.1; Prothrombin Time (Protime)PT. 14.7 SECONDS (11.7-14.9)
--- NOTE | 2023-08-30 13:24 | PCM.PN.HOSP ---
Reason for Visit Reason for Visit: Diagnoses Hypokalemia (08/25/23) Hemorrhage of anus and rectum (08/25/23) Gastrointestinal hemorrhage, unspecified (08/25/23) Abnormal coagulation profile (08/25/23) Subjective Subjective Patient seen at bedside's morning. States she had 2-3 more bowel movements overnight, very small amount of blood and 1 bowel movement. Continues to feel mildly distended this morning but improved from yesterday. Has been moving around the room without issue over the past few days. She is hoping to go home soon. No other acute concerns this morning. Objective Data Objective Data Vital Signs: Vital Signs Temp Pulse Resp BP Pulse Ox O2 Del Method O2 Flow Rate 97.6 F L 76 16 146/50 H 94 Room Air 2 08/30/23 11:51 08/30/23 11:51 08/30/23 11:51 08/30/23 11:51 08/30/23 11:51 08/30/23 11:51 08/30/23 03:31 FiO2 30 08/26/23 04:00 Oxygen Flow Rate (L/min) 2 Oxygen Delivery Method Room Air Weight: 104.4 kg Body Mass Index (BMI) 39.4 Intake & Output: Intake and Output for Last 24 Hours 08/28/23 08/29/23 08/30/23 23:59 23:59 23:59 Intake Total 3980 / 3980 309.25 / 309.25 1777 / 1777 Balance 3980 / 3980 309.25 / 309.25 1777 / 1777 Lab / Micro Data 08/30/23 06:48 08/30/23 06:48 Labs: Laboratory Results - last 24 hr 08/29/23 16:31: POC Glucose 128 H 08/29/23 17:53: APTT 58.4 H 08/29/23 23:01: POC Glucose 110 H 08/30/23 00:55: APTT 68.3 H 08/30/23 06:38: POC Glucose 101 08/30/23 06:48: WBC 7.8, RBC 4.13 L, Hgb 12.1, Hct 38.4, MCV 93.0, MCH 29.3, MCHC 31.5 L, RDW Std Deviation 48.7 H, RDW Coeff of Carmencita 14.3, Plt Count 265, MPV 11.2, PT 14.7, INR 1.1, APTT 65.4 H, Sodium 144, Potassium 3.7, Chloride 110 H, Carbon Dioxide 31.0, Anion Gap 3 L, BUN 9, Creatinine 0.41 L, Estim Creat Clear Calc 121.28, Est GFR (MDRD) Af Amer 203, Est GFR (MDRD) Non-Af 168, BUN/Creatinine Ratio 22.1 H, Glucose 99, Calcium 8.8 08/30/23 11:44: POC Glucose 81 Physical Exam Const alert and oriented x3 Constitutional Narrative: Pleasant elderly female, morbidly obese, sitting in bedside chair, conversing normally, no acute distress. General Appearance: cooperative HEENT normocephalic, head/scalp atraumatic, hearing grossly normal bilaterally, nasal mucous membranes and turbinates normal and moist oral mucous membranes Eyes PERRL, EOMs intact bilaterally and conjunctivae normal Neck full ROM, no lymphadenopathy and supple Lymph Lymphatic: no lymphadenopathy noted Chest inspection of chest normal Resp normal respiratory effort, normal air movement, no use of accessory muscles and clear to auscultation bilaterally Cardio regular rate, regular rhythm, no murmurs and peripheral pulses 2+ throughout GI GI Narrative: Mild to moderately distended abdomen, improved from yesterday. Nontender on palpation. Remains soft on palpation. Back/Spine normal ROM Extremity normal to inspection, full ROM and no pedal edema Skin no rashes or lesions noted Psych mental status grossly normal Assessment & Plan Assessment/Plan (1) Bright red blood per rectum: PLAN: Plan Patient is a 62-year-old female who presented to [facility] ED on 08/25/2023 with bright red blood per rectum. 1. Bright red blood per rectum, improved Concern for diverticular bleed versus hemorrhoidal bleed on admission. Had known diverticulosis in sigmoid and rectosigmoid colon on colonoscopy in 2021. CT abdomen pelvis on admission showed no acute findings. Hemoglobin notably 14 on admission, mildly decreased to 12-13 since admission but stable. Hemodynamically stable. S/p colonoscopy on 08/27 that showed bleeding external and internal hemorrhoids; hemorrhoids were banded. Diverticulosis was noted in the rectosigmoid colon, in the sigmoid colon and descending colon. Unfortunately colon prep was poor. ? Gastroenterology following. Plan for repeat colonoscopy in the outpatient setting in the next 4 weeks. Patient has essentially had cessation of BRBPR as of 08/29, resumed home warfarin with heparin drip for bridging as noted below. Monitor closely for signs of worsening BRBPR. 2. History of PE/DVT on Coumadin Most recent DVT was about 1 year ago and lower extremity. INR notably was subtherapeutic at 1.6 on admission. ? Coumadin held on admission for GI bleed. Given cessation of BRBPR, restarted home warfarin and initiated heparin drip on 08/29 to bridge patient to therapeutic INR. Monitor INR daily; once therapeutic, patient will be okay for discharge home. 3. Abdominal distention due to acute constipation, improving; history of chronic constipation Patient has known history of chronic constipation. She states it has been improved since her colonoscopy in 2021, when she was initiated on an aggressive bowel regimen at home. Has now had worsening since admission, no true bowel movements. KUB 08/28 showed moderate amount of colonic fecal material. ? Started on aggressive bowel regimen on 08/28, GI gave 1 dose of GoLytely and patient started on daily Dulcolax suppositories. Had several bowel movements with these interventions. Continue aggressive regimen, monitor. Chronic medical conditions: ? Morbid obesity: BMI 39 on admit. Encouraged lifestyle modifications. ? Nonobstructive CAD, history of aortic valve replacement, HTN, HLD: Holding home Coumadin, continue other home medications. ? Recurrent falls: CT abdomen pelvis on admit showed subacute compression fracture at T8, likely related to falls. Patient denies back pain. PT/OT/case management following. Continue ongoing outpatient physical therapy after discharge. ? CHELSEY: Continue BiPAP at night. ? Asthma/COPD: Continue home inhalers. ? Osteoporosis: Holding home alendronate. ? Type 2 diabetes with neuropathy: Continue home basal insulin with sliding scale insulin as needed. Continue home Farxiga. Restart home Ozempic on discharge. ? Insomnia: Continue home melatonin and trazodone. ? GERD: Continue home PPI. DVT prophylaxis: Warfarin with heparin drip for bridging CODE STATUS: Full code, verified Expected disposition: Home, 1 to 2 days Total clinical time spent by myself addressing the patient's medical issues, reviewing all the data, and collaborating with patient's care team: 35 minutes. Charges/Coding Visit Charges Inpatient E&M: 45883 Subs Hosp L2
[2023-08-30 16:45] LABS: Bedside Glucose 103 mg/dL (74-106)
[2023-08-30] MEDS: Fenofibrate 48 MG Tablet PO (20:25)
[2023-08-30 21:06] LABS: Bedside Glucose 104 mg/dL (74-106)
[2023-08-30] MEDS: MELATONIN 10 MG TABLET PO (22:38)
[2023-08-30] MEDS: traZODone 50 MG Tablet PO (22:38)
[2023-08-31] VITALS (8 sets, daily range): BP systolic 153–162; BP diastolic 68–84; PULSE 70–81; RESP 16–22; TEMP 36.4–36.8; O2SAT 95–98
[2023-08-31] MEDS: Oxycodone/Apap 5/325 Tablet PO ×2 (03:53→22:04)
[2023-08-31] MEDS: Polyethylene Glycol 3350 17 GM PACKET PO (06:35)
[2023-08-31] MEDS: Pregabalin 75 MG Capsule 150 MG PO ×3 (06:36→22:03)
[2023-08-31 07:14] LABS: Hematocrit 36.1 % (37-47); Hemoglobin 11.3 g/dL (12.0-15.0); Mean Corp Hgb Conc 31.3 g/dL (32-36); Mean Corpuscular Volume 92.8 fL (81-99); Mean Platelet Vol. 10.8 fl (6.2-12.0); Platelet Count 259 K/mm3 (150-450); RBC Distribution Width CV 14.5 % (11.6-14.6); RBC Distribution Width SD 48.4 fl (35.1-43.9); Red Blood Count 3.89 M/mm3 (4.2-5.4); White Blood Count 7.2 K/mm3 (4.4-11.0)
[2023-08-31] MEDS: Ipratropium/Albuterol Sulfate 3 ML AMPUL.NEB INHALATION ×2 (07:24→13:38)
[2023-08-31] MEDS: Budesonide Respules 0.5 MG/2 ML AMPUL.NEB. INHALATION (07:24)
[2023-08-31] MEDS: Ascorbic Acid 500 MG Tablet 1500 MG PO (07:36)
[2023-08-31] MEDS: Pantoprazole Sodium 40 MG Tablet PO ×2 (07:37→21:57)
[2023-08-31] MEDS: dilTIAZem CD 240 MG Capsule PO (07:37)
[2023-08-31] MEDS: Magnesium Chloride 64 MG Delay Rel.Tablet 128 MG PO (07:37)
[2023-08-31] MEDS: Senna Tablet 2 TABLET PO ×2 (07:37→21:57)
[2023-08-31] MEDS: Lisinopril 20 MG Tablet PO (07:37)
[2023-08-31] MEDS: Montelukast 10 MG Tablet PO (07:37)
[2023-08-31] MEDS: Potassium Chloride Oral Tablet 20 MEQ PO ×2 (07:38→16:36)
[2023-08-31] MEDS: Docusate Sodium 100 MG Capsule PO ×2 (07:38→21:57)
[2023-08-31] MEDS: Fluoxetine HCl 40 MG CAPSULE PO (07:38)
[2023-08-31] MEDS: Loratadine 10 MG Tablet PO (07:38)
[2023-08-31] MEDS: Cholecalciferol (Vit D3) 125 MCG CAPSULE (5,000 UNITS) PO (07:38)
[2023-08-31] MEDS: Empagliflozin 25 MG Tablet PO (07:39)
[2023-08-31] MEDS: Fluticasone 0.05% 1 SPRAY NASAL.SRY 2 SPRAY NASAL ×2 (07:41→21:55)
[2023-08-31] MEDS: Azelastine HCl NASAL.SRY 2 SPRAY NASAL ×2 (07:41→21:55)
[2023-08-31] MEDS: Menthol/Lanolin/Calamine/Znox 113 GM Tube 1 APPLIC TOPICAL ×2 (07:41→21:57)
[2023-08-31 07:42] LABS: International Normalized Ratio 1.2
[2023-08-31] MEDS: Insulin Glargine-YFGN 100 UNIT/ML Pen 50 UNIT SC ×2 (07:45→22:04)
[2023-08-31] MEDS: Rizatriptan Benzoate 10 MG Tablet PO (07:46)
[2023-08-31 07:48] LABS: Anion Gap 5 (5-15); BUN 8 mg/dL (7-18); BUN/Creat Ratio 19.7 RATIO (10-20); Calcium,Total 8.5 mg/dL (8.5-10.1); Chloride 108 mmol/L (98-107); Creatinine, Serum 0.41 mg/dL (0.55-1.02); EST Glomerular Filtration Rate 168 mL/min (>60); Est Glom Filt Rate - Afr Amer 203 mL/min (>60); Estimated Creatinine Clearance 121.28 ml/min; Glucose 98 mg/dL (74-106); Potassium 3.8 mmol/L (3.5-5.1); Sodium Level 141 mmol/L (136-145)
[2023-08-31 08:06] LABS: Partial Thromboplast Time 49.1 Seconds (24.1-36.2)
[2023-08-31 08:10] LABS: Bedside Glucose 94 mg/dL (74-106)
[2023-08-31] MEDS: Bisacodyl 10 MG Suppository RC (10:04)
[2023-08-31 11:24] LABS: Bedside Glucose 98 mg/dL (74-106)
--- NOTE | 2023-08-31 11:46 | PN.HOSP_ITS ---
Reason for Visit Reason for Visit: Diagnoses Hypokalemia (08/25/23) Hemorrhage of anus and rectum (08/25/23) Gastrointestinal hemorrhage, unspecified (08/25/23) Abnormal coagulation profile (08/25/23) Subjective Subjective No acute events overnight. Patient seen at bedside this morning. Sitting comfortably bedside chair, conversing normally, no acute distress. Patient does report mild back pain this morning due to her chronic sciatica. Otherwise states that she continues to have good bowel movements and abdominal distention is improving. Denies any abdominal pain this morning. Denies any blood with bowel movements. Is hoping to go home soon. No other acute concerns this morning. Objective Data Objective Data Vital Signs: Vital Signs Temp Pulse Resp BP Pulse Ox O2 Del Method O2 Flow Rate 98.2 F 70 16 156/68 H 95 Room Air 2 08/31/23 11:19 08/31/23 11:19 08/31/23 11:19 08/31/23 11:19 08/31/23 11:19 08/31/23 11:19 08/30/23 03:31 FiO2 30 08/26/23 04:00 Oxygen Flow Rate (L/min) 2 Oxygen Delivery Method Room Air Weight: 104.4 kg Body Mass Index (BMI) 39.4 Intake & Output: Intake and Output for Last 24 Hours 08/29/23 08/30/23 08/31/23 23:59 23:59 23:59 Intake Total 309.25 / 309.25 2477 / 2477 527.25 / 527.25 Balance 309.25 / 309.25 2477 / 2477 527.25 / 527.25 Lab / Micro Data 08/31/23 06:33 08/31/23 06:33 Labs: Laboratory Results - last 24 hr 08/30/23 06:48: PT 14.7, INR 1.1 08/30/23 11:44: POC Glucose 81 08/30/23 16:05: POC Glucose 103 08/30/23 20:42: POC Glucose 104 08/31/23 06:33: WBC 7.2, RBC 3.89 L, Hgb 11.3 L, Hct 36.1 L, MCV 92.8, MCH 29.0, MCHC 31.3 L, RDW Std Deviation 48.4 H, RDW Coeff of Carmencita 14.5, Plt Count 259, MPV 10.8, PT 15.0 H, INR 1.2, APTT 49.1 H, Sodium 141, Potassium 3.8, Chloride 108 H , Carbon Dioxide 28.0, Anion Gap 5, BUN 8, Creatinine 0.41 L, Estim Creat Clear Calc 121.28, Est GFR (MDRD) Af Amer 203, Est GFR (MDRD) Non-Af 168, BUN/Creatinine Ratio 19.7, Glucose 98, Calcium 8.5 08/31/23 06:35: POC Glucose 94 08/31/23 11:07: POC Glucose 98 Physical Exam Const alert and oriented x3 Constitutional Narrative: Pleasant elderly female, morbidly obese, sitting in bedside chair, conversing normally, no acute distress. General Appearance: cooperative HEENT normocephalic, head/scalp atraumatic, hearing grossly normal bilaterally, nasal mucous membranes and turbinates normal and moist oral mucous membranes Eyes PERRL, EOMs intact bilaterally and conjunctivae normal Neck full ROM, no lymphadenopathy and supple Lymph Lymphatic: no lymphadenopathy noted Chest inspection of chest normal Resp normal respiratory effort, normal air movement, no use of accessory muscles and clear to auscultation bilaterally Cardio regular rate, regular rhythm, no murmurs and peripheral pulses 2+ throughout GI GI Narrative: Mildly distended abdomen, improved from yesterday. Nontender on palpation. Remains soft on palpation. Back/Spine normal ROM Extremity normal to inspection, full ROM and no pedal edema Skin no rashes or lesions noted Psych mental status grossly normal Assessment & Plan Assessment/Plan (1) Bright red blood per rectum: PLAN: Plan Patient is a 62-year-old female who presented to [facility] ED on 08/25/2023 with bright red blood per rectum. 1. Bright red blood per rectum, improved Concern for diverticular bleed versus hemorrhoidal bleed on admission. Had known diverticulosis in sigmoid and rectosigmoid colon on colonoscopy in 2021. CT abdomen pelvis on admission showed no acute findings. Hemoglobin notably 14 on admission, mildly decreased to 12-13 since admission but stable. He modynamically stable. S/p colonoscopy on 08/27 that showed bleeding external and internal hemorrhoids; hemorrhoids were banded. Diverticulosis was noted in the rectosigmoid colon, in the sigmoid colon and descending colon. Unfortunately colon prep was poor. ? Gastroenterology following. Plan for repeat colonoscopy in the outpatient setting in the next 4 weeks. Patient has essentially had cessation of BRBPR as of 08/29, resumed home warfarin with heparin drip for bridging as noted below. Monitor closely for signs of worsening BRBPR. 2. History of PE/DVT on Coumadin Most recent DVT was about 1 year ago and lower extremity. INR notably was subtherapeutic at 1.6 on admission. Patient notably states that she failed Eliquis in the past (got a DVT while on Eliquis), is on Coumadin for this reason. ? Coumadin held on admission for GI bleed. Given cessation of BRBPR, restarted home warfarin and initiated heparin drip on 08/29 to bridge patient to therapeutic INR. Unfortunately, patient remains subtherapeutic. Sent Lovenox prescription to pharmacy to check on castro for patient, however Lovenox unfortunately needs a prior authorization before a castro check can be done. Patient has done Lovenox shots in the past and does not like them, would prefer to reach therapeutic INR prior to discharge. Follow-up INR tomorrow. 3. Abdominal distention due to acute constipation, improving; history of chronic constipation Patient has known history of chronic constipation. She states it has been improved since her colonoscopy in 2021, when she was initiated on an aggressive bowel regimen at home. Has now had worsening since admission, no true bowel movements. KUB 08/28 showed moderate amount of colonic fecal material. ? Started on aggressive bowel regimen on 08/28, GI gave 1 dose of GoLytely and patient started on daily Dulcolax suppositories. Had several bowel movements with these interventions. Continue aggressive regimen, monitor. Chronic medical conditions: ? Morbid obesity: BMI 39 on admit. Encouraged lifestyle modifications. ? Nonobstructive CAD, history of aortic valve replacement, HTN, HLD: Holding home Coumadin, continue other home medications. ? Recurrent falls: CT abdomen pelvis on admit showed subacute compression fracture at T8, likely related to falls. Patient denies back pain. PT/OT/case management following. Continue ongoing outpatient physical therapy after discharge. ? CHELSEY: Continue BiPAP at night. ? Asthma/COPD: Continue home inhalers. ? Osteoporosis: Holding home alendronate. ? Type 2 diabetes with neuropathy: Continue home basal insulin with sliding scale insulin as needed. Continue home Farxiga. Restart home Ozempic on discharge. ? Insomnia: Continue home melatonin and trazodone. ? GERD: Continue home PPI. DVT prophylaxis: Warfarin with heparin drip for bridging CODE STATUS: Full code, verified Expected disposition: Home, 1 to 2 days Total clinical time spent by myself addressing the patient's medical issues, reviewing all the data, and collaborating with patient's care team: 35 minutes. Charges/Coding Visit Charges Inpatient E&M: 21187 Subs Hosp L2
[2023-08-31] MEDS: HEPARIN/D5w 25,000 UNITS 25,000 UNITS/250 ML IV.SOLN. 16 UNITS CONT INF (14:36)
[2023-08-31 14:45] LABS: Partial Thromboplast Time 55.7 Seconds (24.1-36.2)
[2023-08-31 16:26] LABS: Bedside Glucose 105 mg/dL (74-106)
[2023-08-31 21:18] LABS: Partial Thromboplast Time 50.2 Seconds (24.1-36.2)
[2023-08-31] MEDS: Heparin Injection (Vial) 5,000 UNIT/ML VIAL IV (21:47)
[2023-08-31] MEDS: 0.9% Saline Lock 10 ML Syringe IV (21:48)
[2023-08-31] MEDS: MELATONIN 10 MG TABLET PO (21:57)
[2023-08-31] MEDS: Fenofibrate 48 MG Tablet PO (21:57)
[2023-08-31] MEDS: traZODone 50 MG Tablet PO (21:57)
[2023-08-31 22:27] LABS: Bedside Glucose 118 mg/dL (74-106)
[2023-09-01] VITALS (8 sets, daily range): BP systolic 129–175; BP diastolic 65–78; PULSE 73–90; RESP 14–20; TEMP 36.4–36.8; O2SAT 95–98
[2023-09-01 03:51] LABS: Hematocrit 36.6 % (37-47); Hemoglobin 11.8 g/dL (12.0-15.0); Mean Corp Hgb Conc 32.2 g/dL (32-36); Mean Corpuscular Hgb 29.9 pg (27.0-32.0); Mean Corpuscular Volume 92.7 fL (81-99); Mean Platelet Vol. 10.6 fl (6.2-12.0); Platelet Count 276 K/mm3 (150-450); RBC Distribution Width CV 14.3 % (11.6-14.6); RBC Distribution Width SD 48.2 fl (35.1-43.9); Red Blood Count 3.95 M/mm3 (4.2-5.4); White Blood Count 8.1 K/mm3 (4.4-11.0)
[2023-09-01 04:05] LABS: Partial Thromboplast Time 73.2 Seconds (24.1-36.2)
[2023-09-01 04:28] LABS: International Normalized Ratio 1.4; Prothrombin Time (Protime)PT. 16.8 SECONDS (11.7-14.9)
[2023-09-01 04:38] LABS: Anion Gap 8 (5-15); BUN 12 mg/dL (7-18); BUN/Creat Ratio 34.6 RATIO (10-20); Calcium,Total 8.4 mg/dL (8.5-10.1); Chloride 109 mmol/L (98-107); Creatinine, Serum 0.35 mg/dL (0.55-1.02); EST Glomerular Filtration Rate 201 mL/min (>60); Est Glom Filt Rate - Afr Amer 244 mL/min (>60); Estimated Creatinine Clearance 142.07 ml/min; Glucose 106 mg/dL (74-106); Potassium 3.8 mmol/L (3.5-5.1); Sodium Level 142 mmol/L (136-145)
[2023-09-01] MEDS: Pregabalin 75 MG Capsule 150 MG PO ×3 (05:25→21:24)
[2023-09-01] MEDS: Oxycodone/Apap 5/325 Tablet PO ×2 (05:25→21:23)
[2023-09-01] MEDS: HEPARIN/D5w 25,000 UNITS 25,000 UNITS/250 ML IV.SOLN. 17 UNITS CONT INF (05:27)
[2023-09-01 07:02] LABS: Bedside Glucose 99 mg/dL (74-106)
[2023-09-01] MEDS: Ipratropium/Albuterol Sulfate 3 ML AMPUL.NEB INHALATION ×3 (07:09→20:05)
[2023-09-01] MEDS: Budesonide Respules 0.5 MG/2 ML AMPUL.NEB. INHALATION ×2 (07:09→20:05)
[2023-09-01] MEDS: Potassium Chloride Oral Tablet 20 MEQ PO ×2 (08:00→17:32)
[2023-09-01] MEDS: Polyethylene Glycol 3350 17 GM PACKET PO ×2 (08:00→21:14)
[2023-09-01] MEDS: tiZANidine HCl 2 MG Tablet 4 MG PO (08:00)
[2023-09-01] MEDS: Cholecalciferol (Vit D3) 125 MCG CAPSULE (5,000 UNITS) PO (08:00)
[2023-09-01] MEDS: Azelastine HCl NASAL.SRY 2 SPRAY NASAL ×2 (08:00→21:11)
[2023-09-01] MEDS: Fluoxetine HCl 40 MG CAPSULE PO (08:01)
[2023-09-01] MEDS: Loratadine 10 MG Tablet PO (08:01)
[2023-09-01] MEDS: dilTIAZem CD 240 MG Capsule PO (08:01)
[2023-09-01] MEDS: Fluticasone 0.05% 1 SPRAY NASAL.SRY 2 SPRAY NASAL ×2 (08:01→21:11)
[2023-09-01] MEDS: Senna Tablet 2 TABLET PO ×2 (08:01→21:10)
[2023-09-01] MEDS: Empagliflozin 25 MG Tablet PO (08:01)
[2023-09-01] MEDS: Ascorbic Acid 500 MG Tablet 1500 MG PO (08:01)
[2023-09-01] MEDS: Docusate Sodium 100 MG Capsule PO ×2 (08:02→21:10)
[2023-09-01] MEDS: Magnesium Chloride 64 MG Delay Rel.Tablet 128 MG PO (08:02)
[2023-09-01] MEDS: Lisinopril 20 MG Tablet PO (08:02)
[2023-09-01] MEDS: Montelukast 10 MG Tablet PO (08:03)
[2023-09-01] MEDS: Insulin Glargine-YFGN 100 UNIT/ML Pen 50 UNIT SC ×2 (08:03→21:12)
[2023-09-01] MEDS: Pantoprazole Sodium 40 MG Tablet PO ×2 (08:03→21:10)
[2023-09-01] MEDS: Menthol/Lanolin/Calamine/Znox 113 GM Tube 1 APPLIC TOPICAL ×2 (08:04→21:12)
[2023-09-01] MEDS: Bisacodyl 10 MG Suppository RC (09:41)
[2023-09-01] MEDS: Enoxaparin 100 MG/ML Syringe SC ×2 (11:47→17:32)
[2023-09-01 12:08] LABS: Bedside Glucose 107 mg/dL (74-106)
[2023-09-01] MEDS: Hydrocortisone 25 MG Suppository RC ×2 (14:40→21:10)
--- NOTE | 2023-09-01 15:41 | CASEMGMT ---
Received tc from Juan at [facility] pharmacy who states pt lovenox did not go through. TC to [facility] and was trf'd to complete PA. PA was approved with ref#[id number]. TC to Juan in the pharmacy, medication successfully went through.
--- NOTE | 2023-09-01 15:57 | PCM.PN.HOSP ---
Reason for Visit Reason for Visit: Diagnoses Hypokalemia (08/25/23) Hemorrhage of anus and rectum (08/25/23) Gastrointestinal hemorrhage, unspecified (08/25/23) Abnormal coagulation profile (08/25/23) Objective Data Objective Data Vital Signs: Vital Signs Temp Pulse Resp BP Pulse Ox O2 Del Method O2 Flow Rate 97.5 F L 78 18 129/65 H 98 Room Air 2 09/01/23 14:37 09/01/23 14:37 09/01/23 14:37 09/01/23 14:37 09/01/23 14:37 09/01/23 14:37 08/30/23 03:31 FiO2 30 08/26/23 04:00 Oxygen Flow Rate (L/min) 2 Oxygen Delivery Method Room Air Weight: 230 lb 2.601 oz Body Mass Index (BMI) 39.4 Intake & Output: Intake and Output for Last 24 Hours 08/30/23 08/31/23 09/01/23 23:59 23:59 23:59 Intake Total 2477 / 2477 1415.47 / 1415.47 201.44 / 201.44 Balance 2477 / 2477 1415.47 / 1415.47 201.44 / 201.44 Lab / Micro Data 09/01/23 03:38 09/01/23 03:38 Labs: Laboratory Results - last 24 hr 08/31/23 16:08: POC Glucose 105 08/31/23 20:45: APTT 50.2 H 08/31/23 21:59: POC Glucose 118 H 09/01/23 03:38: WBC 8.1, RBC 3.95 L, Hgb 11.8 L, Hct 36.6 L, MCV 92.7, MCH 29.9, MCHC 32.2, RDW Std Deviation 48.2 H, RDW Coeff of Carmencita 14.3, Plt Count 276, MPV 10.6, PT 16.8 H, INR 1.4, APTT 73.2 H, Sodium 142, Potassium 3.8, Chloride 109 H, Carbon Dioxide 25.0, Anion Gap 8, BUN 12, Creatinine 0.35 L, Estim Creat Clear Calc 142.07, Est GFR (MDRD) Af Amer 244, Est GFR (MDRD) Non-Af 201, BUN/Creatinine Ratio 34.6 H, Glucose 106, Calcium 8.4 L 09/01/23 05:22: POC Glucose 99 09/01/23 11:48: POC Glucose 107 H Physical Exam Narrative Seen and examined. Patient abdominal feels distended tight. She had bowel movement today but it was hard. She also had bleeding bright red. She had colonoscopy this hospital stay and found to have internal and external hemorrhoids which were banded. Physical exam General: Alert, Oriented x3, Cooperative, morbid obesity BMI 39.5 kg/m?. HEENT: Atraumatic, PERRLA, EOMI, Normocephalic Oral: No Gingival or Mucosal Lesions/ Ulcerations Neck: Supple, No JVD, Negative Carotid Bruits Lungs: Air entry diminished in bilateral lung bases. No crepitation/rhonchi Cardiovascular: Regular rate, Regular Rhythm, Normal S1, Normal S2, No murmurs Abdomen: Bowel Sounds Present, Soft, Non Tender, mildly distended. : No renal angle tenderness. No suprapubic tenderness. Extremities: No edema, Capillary Refill Less than 3 Seconds Skin: No rashes, No breakdown Musculoskeletal: No Tenderness to Palpation of Joints or Extremities. ROM restricted of knees and hips joint. Neurological: Cranial nerves II-XII grossly intact, DTR 2+/4. No acute focal neurological deficit. Psych/Mental Status: Normal Affect, Appropriate. Assessment & Plan Assessment/Plan (1) Bright red blood per rectum: PLAN: Plan Patient is a 62-year-old female who presented to [facility] ED on 08/25/2023 with bright red blood per rectum. 1. Bright red blood per rectum, improved: Had known diverticulosis in sigmoid and rectosigmoid colon on colonoscopy in 2021. CT abdomen pelvis on admission showed no acute findings. Hemoglobin notably 14 on admission, mildly decreased to 12-13 since admission but stable. Hemodynamically stable. S/p colonoscopy on 08/27 that showed bleeding external and internal hemorrhoids; hemorrhoids were banded. Diverticulosis was noted in the rectosigmoid colon, in the sigmoid colon and descending colon. Unfortunately colon prep was poor. 09/01: Plan for repeat colonoscopy as an outpatient in the next 4 weeks. Patient admittedly has bright red rectal bleed last 1 today. Hemorrhoidal cream ordered. 2. History of PE/DVT on Coumadin Most recent DVT was about 1 year ago and lower extremity. INR notably was subtherapeutic at 1.6 on admission. Patient notably states that she failed Eliquis in the past (got a DVT while on Eliquis), is on Coumadin for this reason. ? Coumadin held on admission for GI bleed. Given cessation of BRBPR, restarted home warfarin and initiated heparin drip on 08/29 to bridge patient to therapeutic INR. 09/01: INR remains subtherapeutic therefore started on Lovenox 1 mg every 12 hourly. Patient on warfarin 10 mg daily. Monitor INR and CBC daily. 3. Abdominal distention due to acute constipation, improving; history of chronic constipation Patient has known history of chronic constipation. She states it has been improved since her colonoscopy in 2021, when she was initiated on an aggressive bowel regimen at home. Has now had worsening since admission, no true bowel movements. KUB 08/28 showed moderate amount of colonic fecal material. ? Started on aggressive bowel regimen on 08/28, GI gave 1 dose of GoLytely and patient started on daily Dulcolax suppositories. Had several bowel movements with these interventions. Continue aggressive regimen, monitor. 09/01: Continue MiraLAX 17 g twice daily and senna S2 tablets twice daily along with Dulcolax suppository. Chronic medical conditions: ? Morbid obesity: BMI 39 on admit. Encouraged lifestyle modifications. ? Nonobstructive CAD, history of aortic valve replacement, HTN, HLD: Holding home Coumadin, continue other home medications. ? Recurrent falls: CT abdomen pelvis on admit showed subacute compression fracture at T8, likely related to falls. Patient denies back pain. PT/OT/case management following. Continue ongoing outpatient physical therapy after discharge. ? CHELSEY: Continue BiPAP at night. ? Asthma/COPD: Continue home inhalers. ? Osteoporosis: Holding home alendronate. ? Type 2 diabetes with neuropathy: Continue home basal insulin with sliding scale insulin as needed. Continue home Farxiga. Restart home Ozempic on discharge. ? Insomnia: Continue home melatonin and trazodone. ? GERD: Continue home PPI. DVT prophylaxis: Warfarin with heparin drip for bridging CODE STATUS: Full code, verified Expected disposition: Home, 1 to 2 days Charges/Coding Visit Charges Inpatient E&M: 90855 Subs Hosp L2
[2023-09-01 17:07] LABS: Bedside Glucose 129 mg/dL (74-106)
[2023-09-01] MEDS: Fenofibrate 48 MG Tablet PO (21:10)
[2023-09-01] MEDS: MELATONIN 10 MG TABLET PO (21:11)
[2023-09-01] MEDS: traZODone 50 MG Tablet PO (21:11)
[2023-09-01 21:45] LABS: Bedside Glucose 137 mg/dL (74-106)
[2023-09-02] VITALS (8 sets, daily range): BP systolic 155–177; BP diastolic 63–86; PULSE 77–92; RESP 18; TEMP 36.6; O2SAT 94–98
[2023-09-02] MEDS: Pregabalin 75 MG Capsule 150 MG PO ×3 (05:56→21:14)
[2023-09-02] MEDS: Oxycodone/Apap 5/325 Tablet PO (05:56)
[2023-09-02] MEDS: Enoxaparin 100 MG/ML Syringe SC ×2 (05:57→17:51)
[2023-09-02 06:18] LABS: Bedside Glucose 90 mg/dL (74-106)
[2023-09-02 06:18] LABS: Hematocrit 37.4 % (37-47); Hemoglobin 12.2 g/dL (12.0-15.0); Mean Corp Hgb Conc 32.6 g/dL (32-36); Mean Corpuscular Hgb 30.2 pg (27.0-32.0); Mean Corpuscular Volume 92.6 fL (81-99); Mean Platelet Vol. 10.7 fl (6.2-12.0); Platelet Count 268 K/mm3 (150-450); RBC Distribution Width CV 14.4 % (11.6-14.6); RBC Distribution Width SD 47.8 fl (35.1-43.9); Red Blood Count 4.04 M/mm3 (4.2-5.4); White Blood Count 7.5 K/mm3 (4.4-11.0)
[2023-09-02 06:32] LABS: International Normalized Ratio 1.5; Prothrombin Time (Protime)PT. 18.3 SECONDS (11.7-14.9)
[2023-09-02 06:47] LABS: Anion Gap 3 (5-15); BUN 14 mg/dL (7-18); BUN/Creat Ratio 29.9 RATIO (10-20); Calcium,Total 8.8 mg/dL (8.5-10.1); Chloride 112 mmol/L (98-107); Creatinine, Serum 0.47 mg/dL (0.55-1.02); EST Glomerular Filtration Rate 143 mL/min (>60); Est Glom Filt Rate - Afr Amer 173 mL/min (>60); Glucose 106 mg/dL (74-106); Potassium 4.2 mmol/L (3.5-5.1); Sodium Level 142 mmol/L (136-145)
[2023-09-02] MEDS: Ipratropium/Albuterol Sulfate 3 ML AMPUL.NEB INHALATION ×3 (07:33→19:33)
[2023-09-02] MEDS: Budesonide Respules 0.5 MG/2 ML AMPUL.NEB. INHALATION ×2 (07:33→19:33)
[2023-09-02] MEDS: Azelastine HCl NASAL.SRY 2 SPRAY NASAL ×2 (07:56→21:18)
[2023-09-02] MEDS: Fluticasone 0.05% 1 SPRAY NASAL.SRY 2 SPRAY NASAL ×2 (07:56→21:18)
[2023-09-02] MEDS: Lisinopril 20 MG Tablet PO (07:57)
[2023-09-02] MEDS: Docusate Sodium 100 MG Capsule PO ×2 (07:57→21:14)
[2023-09-02] MEDS: Montelukast 10 MG Tablet PO (07:57)
[2023-09-02] MEDS: Magnesium Chloride 64 MG Delay Rel.Tablet 128 MG PO (07:57)
[2023-09-02] MEDS: Polyethylene Glycol 3350 17 GM PACKET PO ×2 (07:57→21:20)
[2023-09-02] MEDS: Cholecalciferol (Vit D3) 125 MCG CAPSULE (5,000 UNITS) PO (07:58)
[2023-09-02] MEDS: Loratadine 10 MG Tablet PO (07:58)
[2023-09-02] MEDS: Ascorbic Acid 500 MG Tablet 1500 MG PO (07:58)
[2023-09-02] MEDS: Potassium Chloride Oral Tablet 20 MEQ PO ×2 (07:58→16:26)
[2023-09-02] MEDS: Senna Tablet 2 TABLET PO ×2 (07:59→21:13)
[2023-09-02] MEDS: Hydrocortisone 25 MG Suppository RC ×2 (07:59→21:18)
[2023-09-02] MEDS: dilTIAZem CD 240 MG Capsule PO (07:59)
[2023-09-02] MEDS: Fluoxetine HCl 40 MG CAPSULE PO (07:59)
[2023-09-02] MEDS: Pantoprazole Sodium 40 MG Tablet PO ×2 (07:59→21:14)
[2023-09-02] MEDS: Insulin Glargine-YFGN 100 UNIT/ML Pen 50 UNIT SC ×2 (08:00→21:19)
[2023-09-02] MEDS: Empagliflozin 25 MG Tablet PO (08:00)
[2023-09-02] MEDS: Bisacodyl 10 MG Suppository RC (08:02)
[2023-09-02] MEDS: Menthol/Lanolin/Calamine/Znox 113 GM Tube 1 APPLIC TOPICAL ×2 (08:02→21:20)
[2023-09-02] MEDS: Bisacodyl 5 MG Tablet 10 MG PO (11:31)
--- NOTE | 2023-09-02 14:34 | PCM.PN.HOSP ---
Reason for Visit Reason for Visit: Diagnoses Hypokalemia (08/25/23) Hemorrhage of anus and rectum (08/25/23) Gastrointestinal hemorrhage, unspecified (08/25/23) Abnormal coagulation profile (08/25/23) Objective Data Objective Data Vital Signs: Vital Signs Temp Pulse Resp BP Pulse Ox O2 Del Method O2 Flow Rate 97.9 F 86 18 155/74 H 96 Room Air 2 09/02/23 14:21 09/02/23 14:21 09/02/23 14:21 09/02/23 14:21 09/02/23 14:21 09/02/23 14:21 09/02/23 01:00 FiO2 30 08/26/23 04:00 Oxygen Flow Rate (L/min) 2 Oxygen Delivery Method Room Air Weight: 230 lb 2.601 oz Body Mass Index (BMI) 39.4 Intake & Output: Intake and Output for Last 24 Hours 08/31/23 09/01/23 09/02/23 23:59 23:59 23:59 Intake Total 1415.47 / 1415.47 201.44 / 201.44 Balance 1415.47 / 1415.47 201.44 / 201.44 Lab / Micro Data 09/02/23 06:00 09/02/23 06:00 Labs: Laboratory Results - last 24 hr 09/01/23 16:50: POC Glucose 129 H 09/01/23 21:10: POC Glucose 137 H 09/02/23 05:55: POC Glucose 90 09/02/23 06:00: WBC 7.5, RBC 4.04 L, Hgb 12.2, Hct 37.4, MCV 92.6, MCH 30.2, MCHC 32.6, RDW Std Deviation 47.8 H, RDW Coeff of Carmenicta 14.4, Plt Count 268, MPV 10.7, PT 18.3 H, INR 1.5, Sodium 142, Potassium 4.2, Chloride 112 H, Carbon Dioxide 27.0, Anion Gap 3 L, BUN 14, Creatinine 0.47 L, Estim Creat Clear Calc 105.80, Est GFR (MDRD) Af Amer 173, Est GFR (MDRD) Non-Af 143, BUN/Creatinine Ratio 29.9 H, Glucose 106, Calcium 8.8 Physical Exam Narrative Seen and examined. Patient abdominal feels distended tight. She is passing flatus but has not bowel movement after she had a small and hard with bleeding bright red KS yesterday. She had colonoscopy this hospital stay and found to have internal and external hemorrhoids which were banded. Dulcolax 10 mg oral ordered. Physical exam General: Alert, Oriented x3, Cooperative, morbid obesity BMI 39.5 kg/m?. HEENT: Atraumatic, PERRLA, EOMI, Normocephalic Oral: No Gingival or Mucosal Lesions/ Ulcerations Neck: Supple, No JVD, Negative Carotid Bruits Lungs: Air entry diminished in bilateral lung bases. No crepitation/rhonchi Cardiovascular: Regular rate, Regular Rhythm, Normal S1, Normal S2, No murmurs Abdomen: Bowel Sounds sluggish, Soft, Non Tender, mildly distended. No guarding/rigidity. : No renal angle tenderness. No suprapubic tenderness. Extremities: No edema, Capillary Refill Less than 3 Seconds Skin: No rashes, No breakdown Musculoskeletal: No Tenderness to Palpation of Joints or Extremities. ROM restricted of knees and hips joint. Neurological: Cranial nerves II-XII grossly intact, DTR 2+/4. No acute focal neurological deficit. Psych/Mental Status: Normal Affect, Appropriate. Assessment & Plan Assessment/Plan (1) Bright red blood per rectum: PLAN: Plan Patient is a 62-year-old female who presented to [facility] ED on 08/25/2023 with bright red blood per rectum. 1. Bright red blood per rectum, improved: Had known diverticulosis in sigmoid and rectosigmoid colon on colonoscopy in 2021. CT abdomen pelvis on admission showed no acute findings. Hemoglobin notably 14 on admission, mildly decreased to 12-13 since admission but stable. Hemodynamically stable. S/p colonoscopy on 08/27 that showed bleeding external and internal hemorrhoids; hemorrhoids were banded. Diverticulosis was noted in the rectosigmoid colon, in the sigmoid colon and descending colon. Unfortunately colon prep was poor. 09/01: Plan for repeat colonoscopy as an outpatient in the next 4 weeks. Patient admittedly has bright red rectal bleed last 1 today. Hemorrhoidal cream ordered. 09/02: H&H is stable. 2. History of PE/DVT on Coumadin Most recent DVT was about 1 year ago and lower extremity. INR notably was subtherapeutic at 1.6 on admission. Patient notably states that she failed Eliquis in the past (got a DVT while on Eliquis), is on Coumadin for this reason. ? Coumadin held on admission for GI bleed. Given cessation of BRBPR, restarted home warfarin and initiated heparin drip on 08/29 to bridge patient to therapeutic INR. 09/01: INR remains subtherapeutic therefore started on Lovenox 1 mg every 12 hourly. Patient on warfarin 10 mg daily. Monitor INR and CBC daily. 09/02: INR 1.5 is still subtherapeutic. Warfarin dose increased to 12 mg daily with extra 1 dose of 3 mg morning. Monitor INR daily. Continue Lovenox. 3. Abdominal distention due to acute constipation, improving; history of chronic constipation Patient has known history of chronic constipation. She states it has been improved since her colonoscopy in 2021, when she was initiated on an aggressive bowel regimen at home. Has now had worsening since admission, no true bowel movements. KUB 08/28 showed moderate amount of colonic fecal material. ? Started on aggressive bowel regimen on 08/28, GI gave 1 dose of GoLytely and patient started on daily Dulcolax suppositories. Had several bowel movements with these interventions. Continue aggressive regimen, monitor. 09/01: Continue MiraLAX 17 g twice daily and senna S2 tablets twice daily along with Dulcolax suppository. 09/02: Patient passing flatus but sluggish bowel sounds and no BM. Abdomen distended. No bowel movement after Dulcolax 10 mg on therefore magnesium citrate along with IV fluid ordered. Chronic medical conditions: ? Morbid obesity: BMI 39 on admit. Encouraged lifestyle modifications. ? Nonobstructive CAD, history of aortic valve replacement, HTN, HLD: Holding home Coumadin, continue other home medications. ? Recurrent falls: CT abdomen pelvis on admit showed subacute compression fracture at T8, likely related to falls. Patient denies back pain. PT/OT/case management following. Continue ongoing outpatient physical therapy after discharge. ? CHELSEY: Continue BiPAP at night. ? Asthma/COPD: Continue home inhalers. ? Osteoporosis: Holding home alendronate. ? Type 2 diabetes with neuropathy: Continue home basal insulin with sliding scale insulin as needed. Continue home Farxiga. Restart home Ozempic on discharge. ? Insomnia: Continue home melatonin and trazodone. ? GERD: Continue home PPI. DVT prophylaxis: Warfarin with heparin drip for bridging CODE STATUS: Full code, verified Expected disposition: Home, 1 to 2 days Charges/Coding Visit Charges Inpatient E&M: 84424 Subs Hosp L2
[2023-09-02] MEDS: Lactated Ringers 1,000 ML 60 ML IV (16:26)
[2023-09-02] MEDS: Magnesium Citrate 300 ML PO (16:26)
[2023-09-02] MEDS: 0.9% Saline Lock 10 ML Syringe IV ×2 (16:27→21:22)
[2023-09-02] MEDS: Fenofibrate 48 MG Tablet PO (21:13)
[2023-09-02] MEDS: MELATONIN 10 MG TABLET PO (21:14)
[2023-09-02] MEDS: traZODone 50 MG Tablet PO (21:14)
[2023-09-02 23:23] LABS: Bedside Glucose 116 mg/dL (74-106)
[2023-09-03 03:48] VITALS: BP 157/78; PULSE 80; RESP 18; TEMP 36.3; O2SAT 95
[2023-09-03] MEDS: Enoxaparin 100 MG/ML Syringe SC (06:32)
[2023-09-03] MEDS: Alendronate Sodium 70 MG Tablet PO (06:33)
[2023-09-03] MEDS: Pregabalin 75 MG Capsule 150 MG PO ×2 (06:33→13:38)
[2023-09-03 06:57] LABS: Bedside Glucose 91 mg/dL (74-106)
[2023-09-03 07:22] VITALS: PULSE 84; RESP 18; O2SAT 95
[2023-09-03] MEDS: Ipratropium/Albuterol Sulfate 3 ML AMPUL.NEB INHALATION (07:22)
[2023-09-03] MEDS: Budesonide Respules 0.5 MG/2 ML AMPUL.NEB. INHALATION (07:22)
[2023-09-03 07:51] LABS: Absolute Lymphocyte Count 1.99 X10^3/uL (0.83-4.51); Absolute Neutrophil Count 4.8 X10^3/uL (2.0-7.7); Basophil% 1.3 % (0-1); Eosinophil# 0.13 X10^3/uL; Eosinophils% 1.6 % (0-5); Hematocrit 37.7 % (37-47); Hemoglobin 12.3 g/dL (12.0-15.0); Lymphocyte # 1.99 X10^3/ul (0.83-4.51); Lymphocyte % 25.3 % (19-41); Mean Corp Hgb Conc 32.6 g/dL (32-36); Mean Corpuscular Hgb 30.4 pg (27.0-32.0); Mean Corpuscular Volume 93.3 fL (81-99); Mean Platelet Vol. 10.5 fl (6.2-12.0); Monocyte# 0.71 X10^3/uL; NRBC Flagged by Analyzer 0 % (0-5); Neutrophil # 4.82 X10^3/uL (2.7-7.7); Neutrophil % 61.2 % (47-70); Platelet Count 270 K/mm3 (150-450); RBC Distribution Width CV 14.6 % (11.6-14.6); RBC Distribution Width SD 49.5 fl (35.1-43.9); Red Blood Count 4.04 M/mm3 (4.2-5.4); White Blood Count 7.9 K/mm3 (4.4-11.0)
[2023-09-03 08:14] LABS: International Normalized Ratio 1.6; Prothrombin Time (Protime)PT. 18.8 SECONDS (11.7-14.9)
[2023-09-03 08:16] VITALS: BP 160/87; PULSE 87; RESP 18; TEMP 36; O2SAT 98
[2023-09-03] MEDS: Fluticasone 0.05% 1 SPRAY NASAL.SRY 2 SPRAY NASAL (08:18)
[2023-09-03] MEDS: Magnesium Chloride 64 MG Delay Rel.Tablet 128 MG PO (08:19)
[2023-09-03] MEDS: Azelastine HCl NASAL.SRY 2 SPRAY NASAL (08:19)
[2023-09-03] MEDS: Ascorbic Acid 500 MG Tablet 1500 MG PO (08:19)
[2023-09-03] MEDS: Cholecalciferol (Vit D3) 125 MCG CAPSULE (5,000 UNITS) PO (08:19)
[2023-09-03] MEDS: Empagliflozin 25 MG Tablet PO (08:20)
[2023-09-03] MEDS: Potassium Chloride Oral Tablet 20 MEQ PO (08:20)
[2023-09-03] MEDS: Pantoprazole Sodium 40 MG Tablet PO (08:20)
[2023-09-03] MEDS: Hydrocortisone 25 MG Suppository RC (08:20)
[2023-09-03] MEDS: Fluoxetine HCl 40 MG CAPSULE PO (08:20)
[2023-09-03] MEDS: dilTIAZem CD 240 MG Capsule PO (08:20)
[2023-09-03] MEDS: Docusate Sodium 100 MG Capsule PO (08:20)
[2023-09-03] MEDS: Polyethylene Glycol 3350 17 GM PACKET PO (08:20)
[2023-09-03] MEDS: Menthol/Lanolin/Calamine/Znox 113 GM Tube 1 APPLIC TOPICAL (08:21)
[2023-09-03] MEDS: Senna Tablet 2 TABLET PO (08:21)
[2023-09-03 08:22] LABS: Anion Gap 2 (5-15); BUN 12 mg/dL (7-18); BUN/Creat Ratio 27.7 RATIO (10-20); Calcium,Total 8.6 mg/dL (8.5-10.1); Chloride 111 mmol/L (98-107); Creatinine, Serum 0.43 mg/dL (0.55-1.02); EST Glomerular Filtration Rate 156 mL/min (>60); Est Glom Filt Rate - Afr Amer 189 mL/min (>60); Estimated Creatinine Clearance 115.64 ml/min; Glucose 99 mg/dL (74-106); Sodium Level 141 mmol/L (136-145)
[2023-09-03] MEDS: Lisinopril 20 MG Tablet PO (08:22)
[2023-09-03] MEDS: Loratadine 10 MG Tablet PO (08:22)
[2023-09-03] MEDS: Montelukast 10 MG Tablet PO (08:24)
[2023-09-03] MEDS: Bisacodyl 10 MG Suppository RC (08:24)
[2023-09-03] MEDS: Insulin Glargine-YFGN 100 UNIT/ML Pen 50 UNIT SC (08:27)
--- NOTE | 2023-09-03 10:15 | DCINST_ITS ---
Discharge Instructions Diet Discharge Diet: Low fat / Low cholesterol, 1800 Calorie Control Diet and 2000 mg Sodium Diet Activity Discharge Activity: Return to Normal Activity Weight Bearing Status: Weight bearing as tolerated Dressing / Incision Call your doctor if you observe: Fever of 101 or Higher, Coldness, Increased Pain, Numbness or Tingling, Change in Color, Inability to urinate, Inability to have a bowel movement, Using more than 1 pad per hour, Shortness of breath, Dizziness, Fainting spells, Swelling in the ankles, Chest pain, Prolonged hiccupping, Increased palpitations (irregular heartbeat) and Calf discomfort Follow Up Care When: IN 2 WEEKS Test Results: Test results from this visit will be discussed in further detail at your follow- up appointment, if applicable. Discharge Plan Admission Admit Date/Time: 08/25/23 22:14 Primary Reason for Your Visit: Lower GI Bleed, hemorrhoid Attending Provider: Ramiro Carey Primary Care Provider: Ophelia Soria Consulting Providers: Kate Lemus; Erwin Garcia Discharge Orders/Prescriptions Prescriptions: New enoxaparin [Lovenox] 100 mg/mL syringe 100 mg subcut Q12H 7 Days Qty: 14 0RF polyethylene glycol 3350 17 gram Powder In Packet 17 g PO BID Qty: 0 0RF Rx Instructions: OTC hydrocortisone acetate 25 mg Suppository 25 mg IN BID Qty: 60 0RF bisacodyl 10 mg Suppository 10 mg IN DAILY Qty: 0 0RF Rx Instructions: OTC warfarin [Jantoven] 6 mg Tablet 12 mg PO DINNER 3 Days Qty: 6 0RF Rx Instructions: Take it until INR is 1.8 switch to 10 mg daily. Daily INR check and follow with PCP. sennosides [senna] 8.6 mg Tablet 17.2 mg PO BID Qty: 120 0RF Rx Instructions: OTC Continued trazodone 50 mg tablet 50 mg PO QHS albuterol sulfate 2.5 mg /3 mL (0.083 %) solution for nebulization 2.5 mg INHALATION Q2H PRN PRN (Reason: dyspnea, wheezing) Qty: 180 6RF albuterol sulfate 90 mcg/actuation HFA aerosol inhaler 2 inh INHALATION Q4H PRN PRN (Reason: Sob &/Or Wheezing) Qty: 18 6RF montelukast 10 mg tablet 10 mg PO DAILY Qty: 30 6RF alendronate 70 mg tablet 70 mg PO WE ondansetron 4 mg tablet,disintegrating 4 mg PO Q8H PRN (Reason: Nausea) nystatin 100,000 unit/gram powder 1 applic TOPICAL BID PRN PRN (Reason: YEAST) meclizine 25 mg tablet 25 mg PO DAILY PRN (Reason: Vertigo) magnesium 250 mg tablet 400 mg PO DAILY levocetirizine 5 mg tablet 5 mg PO DAILY cyclobenzaprine 5 mg tablet 10 mg PO Q8H PRN (Reason: MUSCLE CRAMPING) Patient Comments: I only take it when I absolutely have to...I am supposed to take it three times per day, but I take it prn...I makes me sleep for 6 hours and I didn't like that. clobetasol 0.05 % cream 1 applic topical PRN PRN (Reason: RASH/ITCHING) guaifenesin [Mucus Relief] 400 mg tablet 400 mg PO Q4H PRN PRN (Reason: Cough) chromium picolinate 200 mcg tablet 200 mcg PO DAILY coconut oil 1,000 mg capsule 1,000 mg PO DAILY Probiotic Blend 2 billion cell-50 mg capsule 1 cap PO DAILY Rx Instructions: give with meal/snack ascorbate calcium (vitamin C) 500 mg tablet 1.5 g PO DAILY vitamin K2 45 mcg capsule 100 mcg PO DAILY zinc amino acid chelate 50 mg tablet 100 mg PO DAILY fluoxetine 20 MG capsule 40 mg PO DAILY Patient Comments: Depression/anxiety potassium chloride 10 MEQ tablet 20 meq PO BID Patient Comments: Supplement docusate sodium 100 mg capsule 100 mg PO BID Patient Comments: Stool softner [id number] 1 EACH tablet,chewable 1 ea PO DAILY fenofibrate nanocrystallized 145 MG tablet 72.5 mg PO QHS tizanidine 4 mg Capsule 4 mg PO Q8H PRN (Reason: muscle relaxer) Patient Comments: I only take this if I don't want to be knocked out for 6 hours from the cyclobenzaprine. I take one or the other, not both. furosemide 40 MG tablet 40 mg PO MOWEFR Patient Comments: Diuretic - water pill to remove extra fluid Rx Instructions: three times a week but twice a day MOWEFR ipratropium-albuterol 0.5 mg-3 mg(2.5 mg base)/3 mL solution for nebulization 3 ml INHALATION BID Rx Instructions: Continue until re-evaluation per pulmonary with possible transition back to home regimen at that time. budesonide-formoterol 160-4.5 mcg/actuation HFA aerosol inhaler 2 puff INHALATION BID beclomethasone dipropionate 80 mcg/actuation HFA aerosol breath activated 1 inh inhalation BID cyanocobalamin (vitamin B-12) [Vitamin B-12] 100 mcg Tablet 100 mcg PO DAILY pregabalin 150 mg capsule 150 mg PO TID melatonin 10 mg Tablet 12 mg PO QHS diltiazem HCl 240 mg capsule,extended release 24hr 240 mg PO DAILY moexipril 15 mg tablet 15 mg PO DAILY pitavastatin calcium [Livalo] 4 mg tablet 4 mg PO DAILY Farxiga 10 mg tablet 10 mg PO DAILY Ozempic 1 mg/dose (4 mg/3 mL) pen injector 1 mg subcut ECHEVARRIA omeprazole 40 mg capsule,delayed release(DR/EC) 40 mg PO BID tiotropium bromide 18 mcg capsule, w/inhalation device 1 cap inhalation DAILY Rx Instructions: puncture 1 cap using device; one dose = 2 inhalations multivitamin [Daily Multi-Vitamin] Tablet 1 tab PO DAILY quercetin 500 mg capsule 500 mg PO DAILY rizatriptan [Maxalt] 10 mg tablet 10 mg PO Q2H PRN (Reason: migraine headache) Qty: 10 0RF Rx Instructions: do not exceed 3 doses per 24 hrs Aimovig Autoinjector 70 mg/mL auto-injector 70 mg subcut QMONTH Qty: 1 0RF Rx Instructions: per patient's normal routine. oxycodone-acetaminophen 5-325 mg tablet 1 tab PO Q4H PRN (Reason: pain) Patient Comments: TAKE 1 TABLET BY MOUTHEEVERY 6 HOURS NEEDEDHFOR PAIN cholecalciferol (vitamin D3) [Vitamin D3] 125 mcg (5,000 unit) tablet 125 mcg PO DAILY azelastine-fluticasone 137-50 mcg/spray spray,non-aerosol 2 spray intranasal BID Rx Instructions: administer into each nostril acetaminophen 500 mg Tablet 1,000 mg PO Q8 PRN (Reason: pain) insulin lispro [Humalog KwikPen Insulin] 100 unit/mL Insulin Pen See Protocol subcut ACHS PRN (Reason: high blood sugar) Protocol: 4. Sliding Scale Insulin High-Med Dosing Condition: 150-199 mg/dl = 2 units Condition: 200-259 mg/dl = 4 units Condition: 260-324 mg/dl = 6 units Condition: 325-374 mg/dl = 8 units Condition: 375-409 mg/dl = 10 units Condition: 410-449 mg/dl = 11 units Condition: Greater than 449 call physician Protocol Text: - Use for Total Daily Dose of Insulin 56-80 units - Patient who are insulin resistant or septic HIGH MEDIUM DOSING ALGORITHM epinephrine 0.3 mg/0.3 mL auto-injector 0.3 mg IM X1 PRN (Reason: Anaphylaxis) Qty: 1 0RF Changed Toujeo SoloStar U-300 Insulin 300 unit/mL (1.5 mL) insulin pen 47 unit SUBCUT BID Qty: 4.5 0RF Patient Comments: INJECT 56 UNITSESUBCUTANEOUSLY JUNIOR Rx Instructions: TOUJEO Held warfarin 10 mg tablet 10 mg PO DAILY Qty: 30 0RF Hold Instructions: Hold while taking warfarin 12 mg daily. Once INR is 1.8 or more switch to warfarin 10 mg daily. To take along with enoxaparin and overlap with 2 days of therapeutic INR, 2 or more and then discontinue enoxaparin. Rx Instructions: take along with enoxaparin. When INR is greater than or equal to 2 for 2 days, then discontinue enoxapain. Discontinued polyethylene glycol 3350 [Miralax] 17 gram/dose powder 17 g PO DAILY PRN PRN (Reason: Constipation) Referrals / Follow Up: Ophelia Soria DO [Primary Care Provider] - In 1 Week Devyn Alcantar DO [Med Staff - Active Staff] - Within 1 Month Ana Jacobsen MD [Med Staff - Active Staff] - Within 1 Month (For chronic constipation ) Disposition Disposition (needs filled in before D/C Order can be placed): Home, Self Care
--- NOTE | 2023-09-03 11:50 | DS.PCM_ITS ---
Providers Date of Admission: 08/25/23 Date of Discharge: 09/03/23 Primary Care Physician: Dr. Ophelia Soria, DO Consultations 08/25/23 22:49 Consult: Gastroenterology Routine Consulting Provider: [facility] Reason for Consult: GI bleed EMERGENT Consult: No MD Notified: Yes Date Notified: 08/26/23 Time Notified: 06:34 Method of Notification: Text Reason For Visit: LGIB Diagnosis Discharge Diagnosis (1) Bright red blood per rectum: Status: Acute Code(s): K62.5 - Hemorrhage of anus and rectum Plan Patient is a 62-year-old female who presented to [facility] ED on 08/25/2023 with bright red blood per rectum. 1. Bright red blood per rectum, improved: Had known diverticulosis in sigmoid and rectosigmoid colon on colonoscopy in 2021. CT abdomen pelvis on admission showed no acute findings. Hemoglobin notably 14 on admission, mildly decreased to 12-13 since admission but stable. Hemodynamically stable. S/p colonoscopy on 08/27 that showed bleeding external and internal hemorrhoids; hemorrhoids were banded. Diverticulosis was noted in the rectosigmoid colon, in the sigmoid colon and descending colon. U nfortunately colon prep was poor. 09/01: Plan for repeat colonoscopy as an outpatient in the next 4 weeks. Patient admittedly has bright red rectal bleed last 1 today. Hemorrhoidal cream ordered. 09/02: H&H is stable.Patient has large bowel movement today after giving Dulcolax suppository, Dulcolax oral and magnesium citrate yesterday. No fresh hematochezia. Continue taking Anusol suppository. Prescription given for same. 2. History of PE/DVT on Coumadin Most recent DVT was about 1 year ago and lower extremity. INR notably was subtherapeutic at 1.6 on admission. Patient notably states that she failed Eliquis in the past (got a DVT while on Eliquis), is on Coumadin for this reason . ? Coumadin held on admission for GI bleed. Given cessation of BRBPR, restarted home warfarin and initiated heparin drip on 08/29 to bridge patient to therapeutic INR. 09/01: INR remains subtherapeutic therefore started on Lovenox 1 mg every 12 hourly. Patient on warfarin 10 mg daily. Monitor INR and CBC daily. 09/02: INR 1.5 is still subtherapeutic. Warfarin dose increased to 12 mg daily with extra 1 dose of 3 mg morning. Monitor INR daily. Continue Lovenox. 09/03: INR gradually improving 1.6. Advised warfarin 12 mg daily until INR is 1.8 or more and then switch to 10 mg daily along with enoxaparin 1 mg/kg every 12 hourly to overlap for 2 days of therapeutic INR and then discontinue enoxaparin. Prescription for warfarin 12 mg daily given along with instruction to hold warfarin 10 mg while she is taking 12 mg daily. 3. Abdominal distention due to acute constipation, improving; history of chronic constipation Patient has known history of chronic constipation. She states it has been improved since her colonoscopy in 2021, when she was initiated on an aggressive bowel regimen at home. Has now had worsening since admission, no true bowel movements. KUB 08/28 showed moderate amount of colonic fecal material. ? Started on aggressive bowel regimen on 08/28, GI gave 1 dose of GoLytely and patient started on daily Dulcolax suppositories. Had several bowel movements with these interventions. Continue aggressive regimen, monitor. 09/01: Continue MiraLAX 17 g twice daily and senna S2 tablets twice daily along with Dulcolax suppository. 09/02: Patient passing flatus but sluggish bowel sounds and no BM. Abdomen distended. No bowel movement after Dulcolax 10 mg on therefore magnesium citrate along with IV fluid ordered. 09/03: Patient large bowel movement as mentioned above. Chronic medical conditions: ? Morbid obesity: BMI 39 on admit. Encouraged lifestyle modifications. ? Nonobstructive CAD, history of aortic valve replacement, HTN, HLD: Holding home Coumadin, continue other home medications. ? Recurrent falls: CT abdomen pelvis on admit showed subacute compression fracture at T8, likely related to falls. Patient denies back pain. PT/OT/case management following. Continue ongoing outpatient physical therapy after discharge. ? CHELSEY: Continue BiPAP at night. ? Asthma/COPD: Continue home inhalers. ? Osteoporosis: Holding home alendronate. ? Type 2 diabetes with neuropathy: Continue home basal insulin with sliding scale insulin as needed. Continue home Farxiga. Restart home Ozempic on discharge. ? Insomnia: Continue home melatonin and trazodone. ? GERD: Continue home PPI. DVT prophylaxis: Warfarin with heparin drip for bridging CODE STATUS: Full code, verified Discharge medication reconciliation done. Discharge follow-up instructions completed. Discharge process discussed with the patient and all questions were answered to patient's satisfaction. Follow with PCP in 1 to 2 weeks. Patient on multiple medications. Advised and patient checks her INR every day and follow-up with Dr. Luevano PCP to titrate the dose of warfarin. Total time spent, exact 35 minutes on discharge meds reconciliation, examination, coordination of care with nurses and ancillary staff, review of imaging and blood test and discussion with the patient on follow-up instructions. Medications at Discharge Home Medications fluoxetine 20 mg capsule 40 mg PO DAILY anxiety 01/26/14 potassium chloride 10 mEq tablet,extended release(part/cryst) 20 meq PO BID Potassium Chloride 01/06/16 Ca 600 mg-D3 800 unit-magnes 40 sw-yuaa-ael-angel-boron chewable tablet 1 ea PO DAILY vitamins 05/27/16 fenofibrate nanocrystallized 145 mg tablet 72.5 mg PO QHS cholesterol 04/26/19 trazodone 50 mg tablet 50 mg PO QHS sleep 08/09/19 epinephrine 0.3 mg/0.3 mL injection, auto-injector 0.3 mg (0.3 mL) IM X1 PRN Anaphylaxis #1 ea 01/18/20 albuterol sulfate 2.5 mg/3 mL (0.083 %) solution for nebulization 2.5 mg (3 mL) inhalation Q2H PRN PRN dyspnea, wheezing #180 mL 04/24/20 albuterol sulfate 90 mcg/actuation aerosol inhaler 2 inh inhalation Q4H PRN PRN Sob &/Or Wheezing #18 grams 04/24/20 montelukast 10 mg tablet 10 mg PO DAILY allergies/asthma #30 tabs 12/07/20 alendronate 70 mg tablet 70 mg PO WE bone health 12/21/20 nystatin 100,000 unit/gram topical powder 1 applic topical BID PRN PRN YEAST 12/21/20 ondansetron 4 mg disintegrating tablet 4 mg PO Q8H PRN Nausea 12/21/20 beclomethasone dipropionate 80 mcg/actuation HFA breath activated aerosol 1 inh inhalation BID Asthma 03/22/21 budesonide-formoterol HFA 160 mcg-4.5 mcg/actuation aerosol inhaler 2 puff inhalation BID asthma 03/22/21 furosemide 40 mg tablet 40 mg PO MOWEFR diuresis 03/22/21 ipratropium 0.5 mg-albuterol 3 mg (2.5 mg base)/3 mL nebulization soln 3 ml inhalation BID asthma 03/22/21 tizanidine 4 mg capsule 4 mg PO Q8H PRN muscle relaxer 03/22/21 cyanocobalamin (vitamin B-12) 100 mcg tablet (Vitamin B-12) 100 mcg PO DAILY supplement 04/05/21 melatonin 10 mg tablet 12 mg PO QHS sleep 04/05/21 pregabalin 150 mg capsule 150 mg PO TID nerve pain 04/05/21 diltiazem HCl 240 mg capsule,extended release 24 hr 240 mg PO DAILY BP 04/06/21 meclizine 25 mg tablet 25 mg PO DAILY PRN Vertigo 05/04/21 docusate sodium 100 mg capsule 100 mg PO BID stool softener 08/17/21 magnesium 250 mg tablet 400 mg PO DAILY supplement 08/17/21 L.acidophil-L.casei-B.bifid-B.longum-FOS 2 billion cell-50 mg capsule (Probiotic Blend) 1 cap PO DAILY supplement 11/07/21 ascorbate calcium (vitamin C) 500 mg tablet 1.5 g PO DAILY vitamin 11/07/21 chromium picolinate 200 mcg tablet 200 mcg PO DAILY supplement 11/07/21 clobetasol 0.05 % topical cream 1 applic topical PRN PRN RASH/ITCHING 11/07/21 coconut oil 1,000 mg capsule 1,000 mg PO DAILY supplement 11/07/21 cyclobenzaprine 5 mg tablet 10 mg PO Q8H PRN MUSCLE CRAMPING 11/07/21 guaifenesin 400 mg tablet (Mucus Relief) 400 mg PO Q4H PRN PRN Cough 11/07/21 levocetirizine 5 mg tablet 5 mg PO DAILY allergies 11/07/21 vitamin K2 45 mcg capsule 100 mcg PO DAILY vitamin 11/07/21 zinc amino acid chelate 50 mg tablet 100 mg PO DAILY supplement 11/07/21 dapagliflozin propanediol 10 mg tablet (Farxiga) 10 mg PO DAILY diabetes 08/11/22 moexipril 15 mg tablet 15 mg PO DAILY 08/11/22 pitavastatin calcium 4 mg tablet (Livalo) 4 mg PO DAILY cholesterol 08/11/22 multivitamin (Daily Multi-Vitamin tablet) 1 tab PO DAILY 06/12/23 omeprazole 40 mg capsule,delayed release 40 mg PO BID 06/12/23 quercetin 500 mg capsule 500 mg PO DAILY 06/12/23 semaglutide 1 mg/dose (4 mg/3 mL) subcutaneous pen injector (Ozempic) 1 mg subcut ECHEVARRIA 06/12/23 tiotropium bromide 18 mcg capsule with inhalation device 1 cap inhalation DAILY 06/12/23 erenumab-aooe 70 mg/mL subcutaneous auto-injector (Aimovig Autoinjector) 70 mg subcut QMONTH #1 mL 06/13/23 rizatriptan 10 mg tablet (Maxalt) 10 mg PO Q2H PRN migraine headache #10 tabs 06/13/23 warfarin 10 mg tablet 10 mg PO DAILY #30 tabs 06/13/23 acetaminophen 500 mg tablet 1,000 mg PO Q8 PRN pain 08/25/23 azelastine-fluticasone 137 mcg-50 mcg/spray nasal spray 2 spray intranasal BID 08/25/23 cholecalciferol (vitamin D3) 125 mcg (5,000 unit) tablet (Vitamin D3) 125 mcg PO DAILY 08/25/23 insulin lispro 100 unit/mL subcutaneous pen (Humalog KwikPen (U-100) Insulin) See Protocol subcut ACHS PRN high blood sugar 08/25/23 oxycodone-acetaminophen 5 mg-325 mg tablet 1 tab PO Q4H PRN pain 08/25/23 enoxaparin 100 mg/mL subcutaneous syringe (Lovenox) 100 mg subcut Q12H 7 days #14 mL 08/31/23 bisacodyl 10 mg rectal suppository 10 mg MO DAILY #0 ea 09/03/23 hydrocortisone acetate 25 mg rectal suppository 25 mg MO BID #60 ea 09/03/23 insulin glargine U-300 conc 300 unit/mL (1.5 mL) subcutaneous pen (Toujeo SoloStar U-300 Insulin) 47 unit (0.1567 mL) subcut BID DIABETES #4.5 mL 09/03/23 polyethylene glycol 3350 17 gram oral powder packet 17 g PO BID #0 ea 09/03/23 sennosides 8.6 mg tablet (senna) 17.2 mg (2 x 8.6 mg) PO BID #120 tabs 09/03/23 warfarin 6 mg tablet (Jantoven) 12 mg (2 x 6 mg) PO DINNER 3 days #6 tabs 09/03/23 Physical Exam Narrative Seen and examined. Patient had a large bowel movement today. Her belly feels good. Bowel sounds still sluggish. Hematochezia stopped. She had colonoscopy this hospital stay and found to have internal and external hemorrhoids which were banded. Physical exam General: Alert, Oriented x3, Cooperative, morbid obesity BMI 39.5 kg/m?. HEENT: Atraumatic, PERRLA, EOMI, Normocephalic Oral: Oral mucosa moist. No Gingival or Mucosal Lesions/ Ulcerations Neck: Supple, No JVD, Negative Carotid Bruits Lungs: Air entry diminished in bilateral lung bases. No crepitation/rhonchi Cardiovascular: Regular rate, Regular Rhythm, Normal S1, Normal S2, No murmurs Abdomen: Bowel Sounds sluggish, Soft, Non Tender, mildly distended. No guarding/rigidity. : No renal angle tenderness. No suprapubic tenderness. Extremities: No edema, Capillary Refill Less than 3 Seconds Skin: No rashes, No breakdown Musculoskeletal: No Tenderness to Palpation of Joints or Extremities. ROM restricted of knees and hips joint. Neurological: Cranial nerves II-XII grossly intact, DTR 2+/4. No acute focal neurological deficit. Psych/Mental Status: Normal Affect, Appropriate. Weight / BMI Weight Weight: 230 lb 2.601 oz Body Mass Index (BMI) 39.4 ABG / Lab / Microbiology Data 09/03/23 07:30 09/03/23 07:30 Laboratory: Laboratory Results - last 24 hr 09/02/23 21:03: POC Glucose 116 H 09/03/23 06:31: POC Glucose 91 09/03/23 07:30: WBC 7.9, RBC 4.04 L, Hgb 12.3, Hct 37.7, MCV 93.3, MCH 30.4, MCHC 32.6, RDW Std Deviation 49.5 H, RDW Coeff of Carmencita 14.6, Plt Count 270, MPV 10.5, Immature Gran % (Auto) 1.600 H, Neut % (Auto) 61.2, Lymph % (Auto) 25.3, [place] % (Auto) 9.0, Eos % (Auto) 1.6, Baso % (Auto) 1.3 H, Absolute Neuts (auto) 4.8, Absolute Lymphs (auto) 1.99, Nucleated RBC % 0, PT 18.8 H, INR 1.6, Sodium 141, Potassium 4.0, Chloride 111 H, Carbon Dioxide 28.0, Anion Gap 2 L, BUN 12, Creatinine 0.43 L, Estim Creat Clear Calc 115.64, Est GFR (MDRD) Af Amer 189, Est GFR (MDRD) Non-Af 156, BUN/Creatinine Ratio 27.7 H, Glucose 99, Calcium 8.6 D/C Instructions Discharge Diet: Low fat / Low cholesterol, 1800 Calorie Control Diet and 2000 mg Sodium Diet Weight Bearing Status: Weight bearing as tolerated Call your doctor if you observe: Fever of 101 or Higher, Coldness, Increased Pain, Numbness or Tingling, Change in Color, Inability to urinate, Inability to have a bowel movement, Using more than 1 pad per hour, Shortness of breath, Dizziness, Fainting spells, Swelling in the ankles, Chest pain, Prolonged hiccupping, Increased palpitations (irregular heartbeat) and Calf discomfort When: IN 2 WEEKS Meaningful Use Info Meaningful Use Diagnoses (Choose all that apply): None applicable Discharge Plan Admission Admit Date/Time: 08/25/23 22:14 Primary Reason for Your Visit: Lower GI Bleed, hemorrhoid Attending Provider: Ramiro Carey Primary Care Provider: Ophelia Soria Consulting Providers: Kate Lemus; Erwin Garcia Discharge Orders/Prescriptions Prescriptions: New enoxaparin [Lovenox] 100 mg/mL syringe 100 mg subcut Q12H 7 Days Qty: 14 0RF polyethylene glycol 3350 17 gram Powder In Packet 17 g PO BID Qty: 0 0RF Rx Instructions: OTC hydrocortisone acetate 25 mg Suppository 25 mg MO BID Qty: 60 0RF bisacodyl 10 mg Suppository 10 mg MO DAILY Qty: 0 0RF Rx Instructions: OTC warfarin [Jantoven] 6 mg Tablet 12 mg PO DINNER 3 Days Qty: 6 0RF Rx Instructions: Take it until INR is 1.8 switch to 10 mg daily. Daily INR check and follow with PCP. sennosides [senna] 8.6 mg Tablet 17.2 mg PO BID Qty: 120 0RF Rx Instructions: OTC Continued trazodone 50 mg tablet 50 mg PO QHS albuterol sulfate 2.5 mg /3 mL (0.083 %) solution for nebulization 2.5 mg INHALATION Q2H PRN PRN (Reason: dyspnea, wheezing) Qty: 180 6RF albuterol sulfate 90 mcg/actuation HFA aerosol inhaler 2 inh INHALATION Q4H PRN PRN (Reason: Sob &/Or Wheezing) Qty: 18 6RF montelukast 10 mg tablet 10 mg PO DAILY Qty: 30 6RF alendronate 70 mg tablet 70 mg PO WE ondansetron 4 mg tablet,disintegrating 4 mg PO Q8H PRN (Reason: Nausea) nystatin 100,000 unit/gram powder 1 applic TOPICAL BID PRN PRN (Reason: YEAST) meclizine 25 mg tablet 25 mg PO DAILY PRN (Reason: Vertigo) magnesium 250 mg tablet 400 mg PO DAILY levocetirizine 5 mg tablet 5 mg PO DAILY cyclobenzaprine 5 mg tablet 10 mg PO Q8H PRN (Reason: MUSCLE CRAMPING) Patient Comments: I only take it when I absolutely have to...I am supposed to take it three times per day, but I take it prn...I makes me sleep for 6 hours and I didn't like that. clobetasol 0.05 % cream 1 applic topical PRN PRN (Reason: RASH/ITCHING) guaifenesin [Mucus Relief] 400 mg tablet 400 mg PO Q4H PRN PRN (Reason: Cough) chromium picolinate 200 mcg tablet 200 mcg PO DAILY coconut oil 1,000 mg capsule 1,000 mg PO DAILY Probiotic Blend 2 billion cell-50 mg capsule 1 cap PO DAILY Rx Instructions: give with meal/snack ascorbate calcium (vitamin C) 500 mg tablet 1.5 g PO DAILY vitamin K2 45 mcg capsule 100 mcg PO DAILY zinc amino acid chelate 50 mg tablet 100 mg PO DAILY fluoxetine 20 MG capsule 40 mg PO DAILY Patient Comments: Depression/anxiety potassium chloride 10 MEQ tablet 20 meq PO BID Patient Comments: Supplement docusate sodium 100 mg capsule 100 mg PO BID Patient Comments: Stool softner Jt-V0-vkx-iuaf-bjz-ddzn-boron 1 EACH tablet,chewable 1 ea PO DAILY fenofibrate nanocrystallized 145 MG tablet 72.5 mg PO QHS tizanidine 4 mg Capsule 4 mg PO Q8H PRN (Reason: muscle relaxer) Patient Comments: I only take this if I don't want to be knocked out for 6 hours from the cyclobenzaprine. I take one or the other, not both. furosemide 40 MG tablet 40 mg PO MOWEFR Patient Comments: Diuretic - water pill to remove extra fluid Rx Instructions: three times a week but twice a day MOWEFR ipratropium-albuterol 0.5 mg-3 mg(2.5 mg base)/3 mL solution for nebulization 3 ml INHALATION BID Rx Instructions: Continue until re-evaluation per pulmonary with possible transition back to home regimen at that time. budesonide-formoterol 160-4.5 mcg/actuation HFA aerosol inhaler 2 puff INHALATION BID beclomethasone dipropionate 80 mcg/actuation HFA aerosol breath activated 1 inh inhalation BID cyanocobalamin (vitamin B-12) [Vitamin B-12] 100 mcg Tablet 100 mcg PO DAILY pregabalin 150 mg capsule 150 mg PO TID melatonin 10 mg Tablet 12 mg PO QHS diltiazem HCl 240 mg capsule,extended release 24hr 240 mg PO DAILY moexipril 15 mg tablet 15 mg PO DAILY pitavastatin calcium [Livalo] 4 mg tablet 4 mg PO DAILY Farxiga 10 mg tablet 10 mg PO DAILY Ozempic 1 mg/dose (4 mg/3 mL) pen injector 1 mg subcut ECHEVARRIA omeprazole 40 mg capsule,delayed release(DR/EC) 40 mg PO BID tiotropium bromide 18 mcg capsule, w/inhalation device 1 cap inhalation DAILY Rx Instructions: puncture 1 cap using device; one dose = 2 inhalations multivitamin [Daily Multi-Vitamin] Tablet 1 tab PO DAILY quercetin 500 mg capsule 500 mg PO DAILY rizatriptan [Maxalt] 10 mg tablet 10 mg PO Q2H PRN (Reason: migraine headache) Qty: 10 0RF Rx Instructions: do not exceed 3 doses per 24 hrs Aimovig Autoinjector 70 mg/mL auto-injector 70 mg subcut QMONTH Qty: 1 0RF Rx Instructions: per patient's normal routine. oxycodone-acetaminophen 5-325 mg tablet 1 tab PO Q4H PRN (Reason: pain) Patient Comments: TAKE 1 TABLET BY MOUTHEEVERY 6 HOURS NEEDEDHFOR PAIN cholecalciferol (vitamin D3) [Vitamin D3] 125 mcg (5,000 unit) tablet 125 mcg PO DAILY azelastine-fluticasone 137-50 mcg/spray spray,non-aerosol 2 spray intranasal BID Rx Instructions: administer into each nostril acetaminophen 500 mg Tablet 1,000 mg PO Q8 PRN (Reason: pain) insulin lispro [Humalog KwikPen Insulin] 100 unit/mL Insulin Pen See Protocol subcut ACHS PRN (Reason: high blood sugar) Protocol: 4. Sliding Scale Insulin High-Med Dosing Condition: 150-199 mg/dl = 2 units Condition: 200-259 mg/dl = 4 units Condition: 260-324 mg/dl = 6 units Condition: 325-374 mg/dl = 8 units Condition: 375-409 mg/dl = 10 units Condition: 410-449 mg/dl = 11 units Condition: Greater than 449 call physician Protocol Text: - Use for Total Daily Dose of Insulin 56-80 units - Patient who are insulin resistant or septic HIGH MEDIUM DOSING ALGORITHM epinephrine 0.3 mg/0.3 mL auto-injector 0.3 mg IM X1 PRN (Reason: Anaphylaxis) Qty: 1 0RF Changed Toujeffrey SoloStar U-300 Insulin 300 unit/mL (1.5 mL) insulin pen 47 unit SUBCUT BID Qty: 4.5 0RF Patient Comments: INJECT 56 UNITSESUBCUTANEOUSLY JUNIOR Rx Instructions: JIGNA Held warfarin 10 mg tablet 10 mg PO DAILY Qty: 30 0RF Hold Instructions: Hold while taking warfarin 12 mg daily. Once INR is 1.8 or more switch to warfarin 10 mg daily. To take along with enoxaparin and overl ap with 2 days of therapeutic INR, 2 or more and then discontinue enoxaparin. Rx Instructions: take along with enoxaparin. When INR is greater than or equal to 2 for 2 da ys, then discontinue enoxapain. Discontinued polyethylene glycol 3350 [Miralax] 17 gram/dose powder 17 g PO DAILY PRN PRN (Reason: Constipation) Referrals / Follow Up: Ophelia Soria DO [Primary Care Provider] - In 1 Week Devyn Alcantar DO [Med Staff - Active Staff] - Within 1 Month Ana Jacobsen MD [Med Staff - Active Staff] - Within 1 Month (For chronic constipation ) Disposition Disposition (needs filled in before D/C Order can be placed): Home, Self Care Charges/Coding Visit Charges Inpatient E&M: 68364 Disch Hosp >30min
--- NOTE | 2023-09-03 12:15 | CASEMGMT ---
Uploaded dc instructions to rafael to [facility]. TC to [facility], spoke with Kelle, she is aware that pt is dc'ing today. RN CM into pt room, pt sitting up eating lunch. Pt states she feels ready to go home. Pt reports she has given lovenox to herself before and denies any issues with this. Pt is aware that [facility] was made aware of dc. Pt states that she will also go to [facility] for therapy, denies need for rx for this. Pt denies further needs a this time.
[2023-09-03 13:42] VITALS: BP 179/79; PULSE 85; RESP 18; TEMP 36.8; O2SAT 98
--- NOTE | 2023-09-03 13:59 | CASEMGMT ---
Social Work Returned call to Dariana Peres ([phone]), [facility] [employer], who was inquiring on an update for this patient. Chart reviewed and relayed in message back to Dariana of planned discharge for today to home. Reviewed RN CM discharge note and arrangements made for home. Left this publicity writer's number to call back, should Dariana need additional information related to continuity of care of this patient. -CHRISTINE Kothari
== END 2023-09-03 14:46 | disposition home or self-care (01) | DRG 347 ==
LOC: ED 22:16 → MS3 22:26
PROVIDERS: Anesthesiology; Hospitalist; Internal Medicine Gastroenterology; Admitting Provider Internal Medicine; Emergency Provider Emergency Medicine; PCP Internal Medicine; Visit Provider Internal Medicine
PROC: 0DJD8ZZ Inspection of Lower Intestinal Tract, Via Natural or Artificial Opening Endoscopic (ICD-10-PCS; CPT 45378; principal; 2023-08-27 12:40)
DX: K64.2 Third degree hemorrhoids (principal); K57.31 Diverticulosis of large intestine without perforation or abscess with bleeding; I50.32 Chronic diastolic (congestive) heart failure; I11.0 Hypertensive heart disease with heart failure; E11.42 Type 2 diabetes mellitus with diabetic polyneuropathy; J44.9 Chronic obstructive pulmonary disease, unspecified; E66.01 Morbid (severe) obesity due to excess calories; Z79.4 Long term (current) use of insulin; I25.10 Atherosclerotic heart disease of native coronary artery without angina pectoris; G47.33 Obstructive sleep apnea (adult) (pediatric); E78.00 Pure hypercholesterolemia, unspecified; E87.6 Hypokalemia; K59.09 Other constipation; K21.9 Gastro-esophageal reflux disease without esophagitis; K63.5 Polyp of colon; Z95.2 Presence of prosthetic heart valve; M81.0 Age-related osteoporosis without current pathological fracture; G47.00 Insomnia, unspecified; R29.6 Repeated falls; Z68.39 Body mass index [BMI] 39.0-39.9, adult; Z79.01 Long term (current) use of anticoagulants; Z79.83 Long term (current) use of bisphosphonates; Z79.84 Long term (current) use of oral hypoglycemic drugs; Z79.85 Long-term (current) use of injectable non-insulin antidiabetic drugs; Z79.899 Other long term (current) drug therapy; Z86.711 Personal history of pulmonary embolism; Z86.718 Personal history of other venous thrombosis and embolism; Z86.73 Personal history of transient ischemic attack (TIA), and cerebral infarction without residual deficits; Z86.16 Personal history of COVID-19
CPT/HCPCS: 36415; 74018; 74177; 80048; 80053; 80076; 82962; 83036; 83605; 83735; 84100; 85014; 85018; 85025; 85027; 85610; 85730; 88305; 93005; 94002; 94640; 94668; 94762; 97110; 97116; 97162; 97166; 97530; 97535; 99252; 99284; J7030; J7120; Q9967; A4216; G0463; J2405

== ENCOUNTER → 2023-09-12 | Outpatient (CLI) | payer MEDICARE, MEDICAID, SELFPAY ==
[2021-09-03 12:59] VITALS: BMI 43.4
--- NOTE | 2023-09-12 15:48 | CT_ITS ---
EXAM: CT ABDOMEN AND PELVIS WITHOUT INTRAVENOUS CONTRAST CLINICAL INDICATION: abdominal pain TECHNIQUE: Helically acquired images were obtained of the abdomen and pelvis without intravenous contrast. This CT exam was performed using one or more of the following dose reduction techniques: automated exposure control, adjustment of the mA and/or kV according to patient size, and/or use of iterative reconstruction technique. COMPARISON: 08/25/2023, 04/01/2023. FINDINGS: LOWER THORAX: Unremarkable. Lung bases are clear. No cardiomegaly. No significant pericardial effusion. ABDOMEN: LIVER: Unremarkable. Homogeneous. GALLBLADDER AND BILE DUCTS: Unremarkable. No calcified gallstones. No gallbladder distention or wall edema. No intra- or extrahepatic biliary ductal dilation. PANCREAS: Unremarkable. No focal cystic mass. SPLEEN: Unremarkable. Normal size without focal cystic or solid mass. ADRENALS: Unremarkable. No nodules. KIDNEYS AND URETERS: 1.7 cm low-attenuation lesion left kidney, unchanged from prior studies. This is consistent with a cyst compared to the contrast enhanced study of March 2023. Kidneys are otherwise unremarkable. No stones or hydronephrosis. STOMACH AND BOWEL: Unremarkable. No stomach or bowel distention. No focal inflammatory change. PELVIS: APPENDIX: No evidence of acute appendicitis. BLADDER: Unremarkable. REPRODUCTIVE: Stable 3.3 x 3.7 cm fat density lesion in the left adnexa containing small calcification. 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 ABDOMEN and PELVIS: INTRAPERITONEAL SPACE: Unremarkable. No ascites or fluid collection. No free air. BONES/JOINTS: Mild degenerative changes of the lumbar spine. Intervertebral disc herniations (Schmorl''s nodes of L3), unchanged from August 25. Remote T8 compression fracture with vertebroplasty. No suspicious lytic or blastic abnormality. SOFT TISSUES: Unremarkable. No discrete abdominal or pelvic wall hernia. VASCULATURE: Unremarkable. Abdominal aorta is normal in caliber. LYMPH NODES: Unremarkable. No enlarged lymph nodes. CT/Abdomen/Pelvis without Cont IMPRESSION: 1. No acute findings. 2. Stable left ovarian dermoid. 3. Additional chronic changes are detailed above. Electronically Signed: Matilde Myers MD at 16:54 EST Reading Location ID and State: [id number] / Tel , Service support ,
[2023-09-12 16:05] LABS: Absolute Lymphocyte Count 1.65 X10^3/uL (0.83-4.51); Basophil# 0.08 X10^3/uL; Basophil% 0.7 % (0-1); Eosinophil# 0.09 X10^3/uL; Eosinophils% 0.8 % (0-5); Hematocrit 43.6 % (37-47); Hemoglobin 13.9 g/dL (12.0-15.0); Lymphocyte # 1.65 X10^3/ul (0.83-4.51); Lymphocyte % 15.4 % (19-41); Mean Corp Hgb Conc 31.9 g/dL (32-36); Mean Corpuscular Hgb 28.8 pg (27.0-32.0); Mean Corpuscular Volume 90.3 fL (81-99); Mean Platelet Vol. 10.7 fl (6.2-12.0); Monocyte# 0.79 X10^3/uL; Monocyte% 7.4 % (0-10); NRBC Flagged by Analyzer 0 % (0-5); Neutrophil # 8.01 X10^3/uL (2.7-7.7); Neutrophil % 75.1 % (47-70); Platelet Count 344 K/mm3 (150-450); RBC Distribution Width CV 14.2 % (11.6-14.6); RBC Distribution Width SD 46.7 fl (35.1-43.9); Red Blood Count 4.83 M/mm3 (4.2-5.4); White Blood Count 10.7 K/mm3 (4.4-11.0)
[2023-09-12 17:35] LABS: International Normalized Ratio 1.1; Prothrombin Time (Protime)PT. 14.3 SECONDS (11.7-14.9)
== END | disposition home or self-care (01) ==
LOC: CT 15:35
PROVIDERS: PCP Internal Medicine; Referring Provider Internal Medicine; Visit Provider Internal Medicine
DX: K92.2 Gastrointestinal hemorrhage, unspecified (principal); Z79.01 Long term (current) use of anticoagulants; R10.9 Unspecified abdominal pain
CPT/HCPCS: 36415; 74176; 85025; 85610

== ENCOUNTER 2023-09-18 10:00 | Outpatient (RCR) | payer MEDICARE, MEDICAID, SELFPAY ==
[2021-09-03 12:59] VITALS: BMI 43.4
--- NOTE | 2023-08-12 13:48 | HP.PTEVAL ---
Patient's Visit Information Visit Information Visit Information: NATHALIE HERMAN is a 62 year old F referred to Physical Therapy by Dr. Ophelia Soria DO with a diagnosis of Sciatica, neuropathy. Date of Evaluation: 08/12/23 Physical Therapist: David Whitley, CHANTELT, OCS, CSCS Visit Plan Frequency: 3x /Week Duration: 4-6 Weeks Plan: 3x/week for 4-6 weeks for... 1. LE standing strength and balance exercises progressing to HEP 2. Gait training with [id number] is to use wh walker currently outside of clinic) to ensure progress from recent fall. Subjective Subjective: Had a severe fall on June 12. Got a shot for sciatic pain at Dr. Gan office and went in house feeling good a few days later and was in a hurry and turned quickly and tripped on a cord. Slammed R leg into microwave and hit head on door, skinned both knees and could not get up, could not feel R leg. Squad took to ER, checked concussion and could not bear weight on R leg and stayed in hospital and stroke tests. They were Ok. Sent to [facility] due to unable to walk. Fell again tripping on ulocked chair and hurt L leg on butt. Went to [facility] and has bone bruis ein L hip. Hard to walk due to B injury. Went back to [facility] for two weeks then to [facility] until 2 weeks ago. now is home. Using cane at home now. Walker does not fit at home. has small apartment without steps. Cane is working. uses wh walker for longer distances. Basic ADLs dressing with pants and bra and helped by husbnads aid. Bathroom I, shower by husbands aid or dtr. Neighbor helps cklean and meals. Sleep is not great as she wakes in pain in R glut. Fella gain two days ago tripping on lymphedema pump again. No regular exercises but has been doing sitting leg movements. and sitting band exercises. Not employed. DM and neuropathy in LE. spends day(when healthy) taking care of . Used to drive. Hobbies include crocheting but shoulders hurt. 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 Pain R hip: Pain Intensity (Out of 10): 4 Pain Intensity Range: 1 and 8 L hip: Pain Intensity (Out of 10): 3 Pain Intensity Range: 1 and 3 Objective Objective: mod I gait but slow and labored with cane, much better with walker but R LE pain is the limiting factor from fall two days ago, she was walking better priot to that. I transfer chair and bed slow and labored. Steps not attempted. Balance is poor at 30 sec eo romberg and 10 ec. wavers alot. has neuropathy R>L in LE and difficult sensation to gross lighbt touch R >L below knees. reflexes 0/3 patella and achilles B. strength is 3+ in R LE hip and knee and ankle, knee and hip limited due to discomfort since her fall. L LE strength hip is 4- and knee is 4- and ankle 3+. neuropthy in B ankles seems to be causing weakness in DF. Due to big problems with neuroapthy and frequent falls , I have recommended wh walker at all times although her apartment is small and may be limited in this, Also educated on improtance of balance safety per Lionel doshi picking things up off floor as fall risks. UE aROM stiff in elevation of shoulders and strength at 4-/5. no obvious bruising in Lb or hips or LE and no open wounds, able to bear weight R LE but antalgic Balance/Special Test Scores Oswestry Low Back Score: 38 Goals Goal 1:: Walk with cane wihtout hseitation or antalgia in clinic safely Goal Time Frame: 4-6 Weeks Goal 2:: Able to tolerate FGA and score 22/30 to reduce fall risk Goal Time Frame: 4-6 Weeks Goal 3:: Pt feel 75% better in overall mobility, pain and balance. Goal Time Frame: 4-6 Weeks Goal 4:: oswsestry score 10 or better Goal Time Frame: 4-6 Weeks Goal 5:: I appropriate HEP for balance and strength Goal Time Frame: 4-6 Weeks Rehabilitation Potential Physical Therapy Diagnosis: difficulty with mobility due to weakness and gait instability since recent falls Rehabilitation Potential: Fair Anticipated Interventions Patient/Client Instruction: Educate patient on: Condition and Risk Factors For the Purpose of:: To decrease pain, To increase ROM, To improve nutrient delivery to tissue, To improve muscle performance and motor function and To increase tolerance to activity/condition/position Therapeutic Exercise to Include: Strength training, Balance training, Flexibilty training, Gait and locomotor training, Passive ROM and Active ROM For the Purpose of:: To decrease pain, To increase ROM, To improve nutrient delivery to tissue, To improve muscle performance and motor function, To increase tolerance to activity/condition/position, To improve ability of physical actions for home/community/work/leisure and To improve gait and locomotor functions Text: Thank you for the opportunity to evaluate your patient. For Medicare and Medicare HMO plans, please review the plan of care and approve it. It will need to be FAXED BACK to us at [phone] for Medicare purposes. For Medicare only, by signing this I certify the plan of care. Please let me know if there are questions or concerns regarding this plan of care. Physician Signature: Date:
--- NOTE | 2023-09-18 10:40 | HP.PTREVAL ---
Re-Evaluation Intro: Dr. Ophelia Soria, DO, It has been my pleasure to treat NATHALIE HERMAN over the last 7 visits for Sciatica, neuropathy. Please see the progress note below for an update on the physical therapy plan of care! Subjective Subjective: 10 days in hospital for bleed and did not change pain. Hip no better worse than at start. Pain 7/10 in R LB and posterior hip all week long and constant. Uses wh walker for mobility and balance but does not help pain. Waiting on pain management to do caudal and it needs improved. Able to do what she needs to do with wh walker. Apartment equip moved for convenience. No falls lately. Only had a couple visits after hospital stay. Seen Dr. Soria a couple times. Pt and doctor wants more PT but handle pain first. No idea when will get caudal injection. Wants to wait until after injection to resume next PT POC due to pain. Objective Objective/Function: R LB pain and antalgia worse as walks without AD but able to do so for 100 feet today. pain increases to 9/10 and needs to sit. Better with wh walker but still 7/10 pain. trasnfers slow but I with UE. LB AROM is limited mod to max in ext and flexion and rotation. Tolerated FGA today for balance but very low score without AD. Overall POC has been interrupted by hopsital visit and 10 day stayfor bleeding and has only had a couple visits prior to and after that stay. Her pain is still limiting factor but the interruption int herapy didn't help. Although she does get around slightly better short distances, pain kicks in quickly and she feels no better overall. Appropriate to start POC again with consistency after pain taken care of with injection or consider aquatic therapy if pain does not improve. Goals appropriate for another POC through end October with fair prognosis if pain is taken care of. Plan Plan Plan: Patient wishes to wait until afte rinjections due to pain but wishes to have consistent 4-6 weeks of therapy to work on back ROM, balance and gait and standing LE and core strength to HEP. Will call after caudal injection to schedule up to current approval date the and then recheck to get more approval to cotnideniseue POC. Balance/Gait/Functional tests Balance/Special Test Scores Functional Gait Assessment Score: 15 % Disability: 50.0000 Oswestry Low Back Score: 37 Goals Goals Goal 1:: Walk with cane wihtout hseitation or antalgia in clinic safely Goal Time Frame: 4-6 Weeks Goal Progress: needs walker. Goal 2:: Able to tolerate FGA and score 22/30 to reduce fall risk Goal Time Frame: 4-6 Weeks Goal 3:: Pt feel 75% better in overall mobility, pain and balance. Goal Time Frame: 4-6 Weeks Goal Progress: 0% Goal 4:: oswsestry score 10 or better Goal Time Frame: 4-6 Weeks Goal Progress: Not Progressing Goal 5:: I appropriate HEP for balance and strength Goal Time Frame: 4-6 Weeks Goal Progress: stretching. sitting. Anticipated Interventions Anticipated Interventions Patient/Client Instruction: Educate patient on: Condition and Risk Factors For the Purpose of:: To decrease pain, To increase ROM, To improve nutrient delivery to tissue, To improve muscle performance and motor function and To increase tolerance to activity/condition/position Therapeutic Exercise to Include: Strength training, Balance training, Flexibilty training, Gait and locomotor training, Passive ROM and Active ROM For the Purpose of:: To decrease pain, To increase ROM, To improve nutrient delivery to tissue, To improve muscle performance and motor function, To increase tolerance to activity/condition/position, To improve ability of physical actions for home/community/work/leisure and To improve gait and locomotor functions Re-Evaluation Ending Re-evaluation ending: Please do not hesitate to contact me at [phone] by phone or if you have questions or concerns regarding this new plan of care! Sincerely, David Whitley, DPT, OCS, CSCS
--- NOTE | 2024-01-20 15:22 | HP.PT.NRP ---
Patient Information Patient Information: NATHALIE HERMAN was seen in my office for initial evaluation on 08/12/23. The following Plan of Care was established for this patient: POC Established Initial Frequency: 3x /Week Initial Duration: 4-6 Weeks Anticipated Interventions Patient/Client Instruction: Educate patient on: Condition and Risk Factors For the Purpose of:: To decrease pain, To increase ROM, To improve nutrient delivery to tissue, To improve muscle performance and motor function and To increase tolerance to activity/condition/position Therapeutic Exercise to Include: Strength training, Balance training, Flexibilty training, Gait and locomotor training, Passive ROM and Active ROM For the Purpose of:: To decrease pain, To increase ROM, To improve nutrient delivery to tissue, To improve muscle performance and motor function, To increase tolerance to activity/condition/position, To improve ability of physical actions for home/community/work/leisure and To improve gait and locomotor functions Last Seen Last Seen: This patient was last seen in our office 09/18/23. Pertinent comments regarding their Physical therapy will appear below: Pt seen 7 visits of POC and was no better. She was to f/u with doctor and possibly return but has not. At this point, it has been over 4 months and I will discontinue from my care. At this point I will be discontinuing this patient from physical therapy. I would be happy to see this patient again in the future if found appropriate by the physician. Thank you! David Whitley, DPT, OCS, CSCS Balance/Gait/Functional tests Balance/Special Test Scores Functional Gait Assessment Score: 15 % Disability: 50.0000 Oswestry Low Back Score: 37
== END 2023-09-18 19:00 | disposition home or self-care (01) ==
LOC: PT 10:00
PROVIDERS: PCP Internal Medicine; Referring Provider Internal Medicine; Visit Provider Internal Medicine
DX: M54.31 Sciatica, right side (principal); E11.40 Type 2 diabetes mellitus with diabetic neuropathy, unspecified
CPT/HCPCS: 97110; 97162; 97164

== ENCOUNTER 2023-09-25 15:28 | Emergency (ER) | payer MEDICARE, MEDICAID, SELFPAY ==
[2021-09-03 12:59] VITALS: BMI 43.4
[2023-09-25 15:29] VITALS: BP 144/61; PULSE 86; RESP 18; TEMP 36.6; O2SAT 95; BMI 40.0
--- NOTE | 2023-09-25 15:38 | EDS_ITS ---
HPI History of Present Illness Chief Complaint: Abn Labs [facility] Medical History Anxiety Arthritis Asthma Atherosclerotic heart disease of [place] coronary artery without angina pectoris Back pain Back pain with sciatica Bilateral carotid bruits BiPAP (biphasic positive airway pressure) dependence Body mass index 45.0-49.9, adult Cardiology follow-up encounter Carotid artery disease COPD (chronic obstructive pulmonary disease) COVID-19 Depression Diabetes Diastolic heart failure Discoloration of skin Easy bruising Essential hypertension Excessive bleeding High cholesterol History of DVT (deep vein thrombosis) History of echocardiogram History of edema History of pain when walking History of pulmonary embolism History of steroid therapy History of stress test History of transcatheter aortic valve replacement (TAVR) (~04/19/21) Hx of transesophageal echocardiography (YOLANDA) for monitoring Insulin dependent diabetes mellitus Leg cramps Migraine headache Morbid obesity Non-smoker Nonrheumatic aortic (valve) stenosis On home oxygen therapy CHELSEY treated with BiPAP Peripheral neuropathy Personal history of anaphylaxis Positive FIT (fecal immunochemical test) Pulmonary embolism Restless legs Rotator cuff arthropathy of right shoulder Shortness of breath on exertion TIA (transient ischemic attack) Type 2 diabetes mellitus Home Medications fluoxetine 20 mg capsule 40 mg PO DAILY anxiety 01/26/14 [History Last Taken 04/05/21] potassium chloride 10 mEq tablet,extended release(part/cryst) 20 meq PO BID Potassium Chloride 01/06/16 [History Last Taken 08/11/22] Ca 600 mg-D3 800 unit-magnes 40 bh-euom-sdu-angel-boron chewable tablet 1 ea PO DAILY vitamins 05/27/16 [History Last Taken 04/05/21] fenofibrate nanocrystallized 145 mg tablet 72.5 mg PO QHS cholesterol 04/26/19 [History Last Taken 04/04/21] trazodone 50 mg tablet 50 mg PO QHS sleep 08/09/19 [History Last Taken 04/04/21] epinephrine 0.3 mg/0.3 mL injection, auto-injector 0.3 mg (0.3 mL) IM X1 PRN Anaphylaxis #1 ea 01/18/20 [Rx Last Taken Unknown] albuterol sulfate 2.5 mg/3 mL (0.083 %) solution for nebulization 2.5 mg (3 mL) inhalation Q2H PRN PRN dyspnea, wheezing #180 mL 04/24/20 [Rx Last Taken 07/02 09:00] albuterol sulfate 90 mcg/actuation aerosol inhaler 2 inh inhalation Q4H PRN PRN Sob &/Or Wheezing #18 grams 04/24/20 [Rx Last Taken 04/29/22] montelukast 10 mg tablet 10 mg PO DAILY allergies/asthma #30 tabs 12/07/20 [Rx Last Taken 04/05/21] alendronate 70 mg tablet 70 mg PO WE bone health 12/21/20 [History Last Taken 08/07/22] nystatin 100,000 unit/gram topical powder 1 applic topical BID PRN PRN YEAST 12/21/20 [History Last Taken 04/05/21] ondansetron 4 mg disintegrating tablet 4 mg PO Q8H PRN Nausea 12/21/20 [History Last Taken Unknown] beclomethasone dipropionate 80 mcg/actuation HFA breath activated aerosol 1 inh inhalation BID Asthma 03/22/21 [History Last Taken 07/02/21 09:00] budesonide-formoterol HFA 160 mcg-4.5 mcg/actuation aerosol inhaler 2 puff inhalation BID asthma 03/22/21 [History Last Taken 04/29/22] furosemide 40 mg tablet 40 mg PO MOWEFR diuresis 03/22/21 [History Last Taken 04/05/21] ipratropium 0.5 mg-albuterol 3 mg (2.5 mg base)/3 mL nebulization soln 3 ml inhalation BID asthma 03/22/21 [History Last Taken 04/05/21] tizanidine 4 mg capsule 4 mg PO Q8H PRN muscle relaxer 03/22/21 [History Last Taken 02/10/23] cyanocobalamin (vitamin B-12) 100 mcg tablet (Vitamin B-12) 100 mcg PO DAILY supplement 04/05/21 [History Last Taken 04/05/21] melatonin 10 mg tablet 12 mg PO QHS sleep 04/05/21 [History Last Taken 04/04/21] pregabalin 150 mg capsule 150 mg PO TID nerve pain 04/05/21 [History Last Taken 08/11/22] diltiazem HCl 240 mg capsule,extended release 24 hr 240 mg PO DAILY BP 04/06/21 [History Last Taken 07/02/21 09:00] meclizine 25 mg tablet 25 mg PO DAILY PRN Vertigo 05/04/21 [History Last Taken Unknown] docusate sodium 100 mg capsule 100 mg PO BID stool softener 08/17/21 [History Last Taken Unknown] magnesium 250 mg tablet 400 mg PO DAILY supplement 08/17/21 [History Last Taken Unknown] L.acidophil-L.casei-B.bifid-B.longum-FOS 2 billion cell-50 mg capsule (Probiotic Blend) 1 cap PO DAILY supplement 11/07/21 [History Last Taken Unknown] ascorbate calcium (vitamin C) 500 mg tablet 1.5 g PO DAILY vitamin 11/07/21 [History Last Taken Unknown] chromium picolinate 200 mcg tablet 200 mcg PO DAILY supplement 11/07/21 [History Last Taken Unknown] clobetasol 0.05 % topical cream 1 applic topical PRN PRN RASH/ITCHING 11/07/21 [History Last Taken Unknown] coconut oil 1,000 mg capsule 1,000 mg PO DAILY supplement 11/07/21 [History Last Taken Unknown] cyclobenzaprine 5 mg tablet 10 mg PO Q8H PRN MUSCLE CRAMPING 11/07/21 [History Last Taken 08/11/22] guaifenesin 400 mg tablet (Mucus Relief) 400 mg PO Q4H PRN PRN Cough 11/07/21 [History Last Taken Unknown] levocetirizine 5 mg tablet 5 mg PO DAILY allergies 11/07/21 [History Last Taken Unknown] vitamin K2 45 mcg capsule 100 mcg PO DAILY vitamin 11/07/21 [History Last Taken Unknown] zinc amino acid chelate 50 mg tablet 100 mg PO DAILY supplement 11/07/21 [History Last Taken Unknown] dapagliflozin propanediol 10 mg tablet (Farxiga) 10 mg PO DAILY diabetes 08/11/22 [History Last Taken 08/11/22] moexipril 15 mg tablet 15 mg PO DAILY 08/11/22 [History Last Taken Unknown] pitavastatin calcium 4 mg tablet (Livalo) 4 mg PO DAILY cholesterol 08/11/22 [History Last Taken Unknown] multivitamin (Daily Multi-Vitamin tablet) 1 tab PO DAILY 06/12/23 [History Last Taken Unknown] omeprazole 40 mg capsule,delayed release 40 mg PO BID 06/12/23 [History Last Taken Unknown] quercetin 500 mg capsule 500 mg PO DAILY 06/12/23 [History Last Taken Unknown] semaglutide 1 mg/dose (4 mg/3 mL) subcutaneous pen injector (Ozempic) 1 mg subcut ECHEVARRIA 06/12/23 [History Last Taken Unknown] tiotropium bromide 18 mcg capsule with inhalation device 1 cap inhalation DAILY 06/12/23 [History Last Taken Unknown] erenumab-aooe 70 mg/mL subcutaneous auto-injector (Aimovig Autoinjector) 70 mg subcut QMONTH #1 mL 06/13/23 [Rx Last Taken Unknown] rizatriptan 10 mg tablet (Maxalt) 10 mg PO Q2H PRN migraine headache #10 tabs 06/13/23 [Rx Last Taken Unknown] acetaminophen 500 mg tablet 1,000 mg PO Q8 PRN pain 08/25/23 [History Last Taken Unknown] azelastine-fluticasone 137 mcg-50 mcg/spray nasal spray 2 spray intranasal BID 08/25/23 [History Last Taken Unknown] cholecalciferol (vitamin D3) 125 mcg (5,000 unit) tablet (Vitamin D3) 125 mcg PO DAILY 08/25/23 [History Last Taken Unknown] insulin lispro 100 unit/mL subcutaneous pen (Humalog KwikPen (U-100) Insulin) See Protocol subcut ACHS PRN high blood sugar 08/25/23 [History Last Taken Unknown] bisacodyl 10 mg rectal suppository 10 mg FL DAILY #0 ea 09/03/23 [Rx Last Taken Unknown] hydrocortisone acetate 25 mg rectal suppository 25 mg FL BID #60 ea 09/03/23 [Rx Last Taken Unknown] insulin glargine U-300 conc 300 unit/mL (1.5 mL) subcutaneous pen (Toujeo SoloStar U-300 Insulin) 47 unit (0.1567 mL) subcut BID DIABETES #4.5 mL 09/03/23 [Rx Last Taken 04/28/22 25 MG] polyethylene glycol 3350 17 gram oral powder packet 17 g PO BID #0 ea 09/03/23 [Rx Last Taken Unknown] sennosides 8.6 mg tablet (senna) 17.2 mg (2 x 8.6 mg) PO BID #120 tabs 09/03/23 [Rx Last Taken Unknown] warfarin 6 mg tablet (Jantoven) 12 mg (2 x 6 mg) PO DINNER 3 days #6 tabs 09/03/23 [Rx Last Taken Unknown] tramadol 50 mg tablet 50 mg PO Q8H PRN pain #45 tabs 09/24/23 [Rx Last Taken Unknown] estradiol 0.01% (0.1 mg/gram) vaginal cream vaginal 09/25/23 [History Last Taken Unknown] potassium chloride 10 mEq tablet,extended release meq PO 09/25/23 [History Last Taken Unknown] warfarin 10 mg tablet 12 mg PO DAILY 09/25/23 [History Last Taken Unknown] Allergy/AdvReac Type Severity Reaction Status Date / Time clindamycin Allergy Rash Verified 09/25/23 15:29 erythromycin base Allergy Rash Verified 09/25/23 15:29 [Erythromycin Base] omalizumab [From Xolair] Allergy Chest Verified 09/25/23 15:29 tightness Penicillins Allergy Rash Verified 09/25/23 15:29 sulfamethoxazole Allergy Chest Verified 09/25/23 15:29 [From Bactrim] tightness trimethoprim [From Bactrim] Allergy Chest Verified 09/25/23 15:29 tightness Sulfa (Sulfonamide AdvReac Unknown Unknown Verified 09/25/23 15:29 Antibiotics) Family History Father Heart disease Diabetes CAD (coronary artery disease) Mother CAD (coronary artery disease) CVA (cerebral vascular accident) Diabetes Brother CAD (coronary artery disease) CVA (cerebral vascular accident) Diabetes Unknown Cancer Grandmother CVA (cerebral vascular accident) Diabetes Grandfather CVA (cerebral vascular accident) Grandmother Myocardial infarction Brother Diabetes Sister Diabetes Surgical History Aortic valve replaced H/O lumbosacral spine surgery History of cardiac catheterization History of section History of hernia repair History of left heart catheterization (LHC) (~01/19/21) History of neck surgery History of rotator cuff surgery Hx of appendectomy Social History household members: spouse housing: apartment pets and animals: Yes Smoking Status: Never smoker second hand exposure: No alcohol intake: current alcohol intake frequency: a few times a week substance use type: does not use caffeine: No what type of physical activity do you participate in: none do you feel safe at home: Yes EXAM Physical Exam Const Vital Signs: 09/25/23 15:29 09/25/23 15:32 09/25/23 18:13 Temperature 98 F Temperature Source Oral Pulse Rate 86 79 Respiratory Rate 18 16 Respiratory Pattern Normal Blood Pressure 144/61 H 138/68 H Blood Pressure Mean 88 91 Pulse Ox 95 98 Oxygen Delivery Method Room Air Room Air [facility] MDM Narrative Medical decision making narrative: HISTORY OF PRESENT ILLNESS: 62-year-old female presents with concern for elevated INR. Patient states this morning she has been more nauseous, having headaches feeling lightheaded. Patient notes right-sided abdominal pain is worsened over the last 10 days. She also notes some mild blood in her stool when she wipes states approximately a week ago she increased her warfarin from 10 to 12 mg. She states at that time her INR was 1.5. States today she repeat her INR at home and it was 5.5. She denies any chest pain or shortness of breath. Denies any syncope REVIEW OF SYSTEMS: Pertinent positives: Headache, right-sided abdominal pain, blood in stool Pertinent negatives: Focal weakness, shortness of breath, chest pain PHYSICAL EXAM: Nursing triage notes reviewed, Vital signs reviewed Constitutional: please see mdm HENT: MMM Eyes: Pupils equal round and reactive to light, Extraocular muscles intact Neck: No stridor, no JVD, full neck ROM Lungs: Clear to auscultation, No wheezing or rales. No increased work of breathing, no conversational dyspnea, no accessory muscle use, no nasal flaring. No respiratory distress noted Heart: Regular rate and rhythm, No murmurs, No rubs and No gallops, 2+ distal pulses (radial, femoral, posterior tibial) in all extremities Abdomen: Soft, there is no tenderness, rigidity, rebound or guarding, no obvious peritoneal signs, no palpable pulsatile abdominal masses, no auscultated abdominal bruit : No CVAT Extremities: No edema Neuro: Alert and oriented x3, neuro exam at baseline, cranial nerves II through XII are intact. No pain with extraocular muscle movement. There is negative test of skew. 5 of 5 strength in upper and lower extremities in flexion extension. Intact sensation to light touch in upper and lower extremity dermatomes. No truncal or extremity ataxia. No dysdiadochokinesia. Normal gait. 2+ reflexes in upper and lower extremities. No meningeal signs. Negative Babinski. NIH of 0. Skin: No rash or lesions noted MEDICAL DECISION MAKING: Chief Complaint: Elevated INR External records reviewed: Encounter with automobile locator Dr. Alcantar had a colonoscopy on 08/27/2023 which showed internal hemorrhoids were banded. Factors affecting care: DVT on warfarin, COPD, type 2 diabetes, CHELSEY Social determinants of health: none History obtained from others: none Consults: none [facility] Narrative: Patient was initially hemodynamically stable, afebrile. There are no focal neurologic deficits on the patient's initial exam. She did have a tender abdomen with a palpable mass concerning for abdominal wall hematoma given elevated INR. I was also concerned about intracranial hemorrhaging given the patient's headache and self-reported INR of 5.5 I considered the following differential diagnosis: ICH, anemia, abdominal wall hematoma Obtained a broad lab and imaging work up to further elucidate the etiology of the patient's complaints. Treat the patient with IV fluids, morphine and Zofran for symptomatic relief. ALL IMAGES (IF OBTAINED) HAVE BEEN PERSONALLY REVIEWED AND INTERPRETED BY MYSELF. EKG with normal sinus rhythm, left axis deviation, prolonged FL interval, first- degree AV block, no ischemic changes CT scan head shows no evidence of ICH CT scan abdomen pelvis shows no acute abnormality including evidence of retroperitoneal hematoma or abdominal wall hematoma CBC without significant anemia INR 4 CMP without evidence of acute kidney injury, significant electrolyte abnormality, anion gap, no evidence hepatobiliary pathology. The synthesis of the patient's history, physical exam, labs images suggest no acute life-threatening bleeding. She was instructed to hold her next dose of warfarin and to resume warfarin at her initial dose of 10 mg daily. Courage prompt GI follow-up given history of GI bleed and report of streaking blood on her tissue. The patient and/or family, caregivers express understanding. The patient and/or family, caregivers agrees with the plan. Shared decision making: I will have a discussion with the patient and or visitors regarding risk/benefits of further testing or admission. They will be made aware of of the risk/benefits inherent in this decision they will be given the opportunity to voice understanding. Total critical care time today provided was at least 0 minutes. This excludes separately billable procedures. Critical care time (if documented) is secondary to the patient having high probability of clinically significant/life threatening deterioration in the patient's condition which required my urgent intervention. Impression: 1. Elevated INR 2. Coagulopathy 3. History of DVT Dispo: Discharge Lab Data Labs: Laboratory Results - last 24 hr 09/25/23 16:00 WBC 11.3 H RBC 4.60 Hgb 13.0 Hct 41.2 MCV 89.6 MCH 28.3 MCHC 31.6 L RDW Std Deviation 46.0 H RDW Coeff of Carmencita 14.4 Plt Count 317 MPV 10.4 Immature Gran % (Auto) 0.400 Neut % (Auto) 90.1 H Lymph % (Auto) 6.1 L [place] % (Auto) 3.3 Eos % (Auto) 0.0 Baso % (Auto) 0.1 Absolute Neuts (auto) 10.2 H Absolute Lymphs (auto) 0.69 L Nucleated RBC % 0 PT 39.5 H INR 4.0 H* APTT 60.9 H Sodium 138 Potassium 3.8 Chloride 103 Carbon Dioxide 29.0 Anion Gap 6 BUN 15 Creatinine 0.86 Estim Creat Clear Calc 57.82 Est GFR (MDRD) Af Amer 86 Est GFR (MDRD) Non-Af 71 BUN/Creatinine Ratio 17.4 Glucose 188 H Calcium 9.5 Total Bilirubin 0.30 AST 25 ALT 29 Alkaline Phosphatase 56 Total Protein 6.8 Albumin 3.3 Globulin 3.5 Albumin/Globulin Ratio 0.9 Radiography Diagnostic Testing: Clinical Impression(s) from Imaging Studies Brain CT 09/25/23 15:50 IMPRESSION: Chronic involutional changes of the brain. Electronically Signed: Luis Alexis MD at 17:23 EST Reading Location ID and State: [employer] / [facility] Tel , Service support , Abdomen/Pelvis CT 09/25/23 15:51 IMPRESSION: No acute abnormality. Electronically Signed: Luis Aleixs MD at 18:01 EST Reading Location ID and State: [id number] / [facility] Tel , Service support , Discharge Plan Triage Chief Complaint: Abn Labs ED Provider: Viral Fuentes Dx/Rx/DC Orders Clinical Impression: Elevated INR Prescriptions: No Action trazodone 50 mg tablet 50 mg PO QHS albuterol sulfate 2.5 mg /3 mL (0.083 %) solution for nebulization 2.5 mg INHALATION Q2H PRN PRN (Reason: dyspnea, wheezing) Qty: 180 6RF albuterol sulfate 90 mcg/actuation HFA aerosol inhaler 2 inh INHALATION Q4H PRN PRN (Reason: Sob &/Or Wheezing) Qty: 18 6RF montelukast 10 mg tablet 10 mg PO DAILY Qty: 30 6RF alendronate 70 mg tablet 70 mg PO WE ondansetron 4 mg tablet,disintegrating 4 mg PO Q8H PRN (Reason: Nausea) nystatin 100,000 unit/gram powder 1 applic TOPICAL BID PRN PRN (Reason: YEAST) meclizine 25 mg tablet 25 mg PO DAILY PRN (Reason: Vertigo) magnesium 250 mg tablet 400 mg PO DAILY levocetirizine 5 mg tablet 5 mg PO DAILY cyclobenzaprine 5 mg tablet 10 mg PO Q8H PRN (Reason: MUSCLE CRAMPING) Patient Comments: I only take it when I absolutely have to...I am supposed to take it three times per day, but I take it prn...I makes me sleep for 6 hours and I didn't like that. clobetasol 0.05 % cream 1 applic topical PRN PRN (Reason: RASH/ITCHING) guaifenesin [Mucus Relief] 400 mg tablet 400 mg PO Q4H PRN PRN (Reason: Cough) chromium picolinate 200 mcg tablet 200 mcg PO DAILY coconut oil 1,000 mg capsule 1,000 mg PO DAILY Probiotic Blend 2 billion cell-50 mg capsule 1 cap PO DAILY Rx Instructions: give with meal/snack ascorbate calcium (vitamin C) 500 mg tablet 1.5 g PO DAILY vitamin K2 45 mcg capsule 100 mcg PO DAILY zinc amino acid chelate 50 mg tablet 100 mg PO DAILY tramadol 50 mg tablet 50 mg PO Q8H PRN (Reason: pain) Qty: 45 0RF fluoxetine 20 MG capsule 40 mg PO DAILY Patient Comments: Depression/anxiety potassium chloride 10 MEQ tablet 20 meq PO BID Patient Comments: Supplement docusate sodium 100 mg capsule 100 mg PO BID Patient Comments: Stool softner Oj-C0-wae-umip-ngq-snan-boron 1 EACH tablet,chewable 1 ea PO DAILY fenofibrate nanocrystallized 145 MG tablet 72.5 mg PO QHS tizanidine 4 mg Capsule 4 mg PO Q8H PRN (Reason: muscle relaxer) Patient Comments: I only take this if I don't want to be knocked out for 6 hours from the cyclobenzaprine. I take one or the other, not both. furosemide 40 MG tablet 40 mg PO MOWEFR Patient Comments: Diuretic - water pill to remove extra fluid Rx Instructions: three times a week but twice a day MOWEFR ipratropium-albuterol 0.5 mg-3 mg(2.5 mg base)/3 mL solution for nebulization 3 ml INHALATION BID Rx Instructions: Continue until re-evaluation per pulmonary with possible transition back to home regimen at that time. budesonide-formoterol 160-4.5 mcg/actuation HFA aerosol inhaler 2 puff INHALATION BID beclomethasone dipropionate 80 mcg/actuation HFA aerosol breath activated 1 inh inhalation BID cyanocobalamin (vitamin B-12) [Vitamin B-12] 100 mcg Tablet 100 mcg PO DAILY pregabalin 150 mg capsule 150 mg PO TID melatonin 10 mg Tablet 12 mg PO QHS diltiazem HCl 240 mg capsule,extended release 24hr 240 mg PO DAILY moexipril 15 mg tablet 15 mg PO DAILY pitavastatin calcium [Livalo] 4 mg tablet 4 mg PO DAILY Farxiga 10 mg tablet 10 mg PO DAILY Ozempic 1 mg/dose (4 mg/3 mL) pen injector 1 mg subcut ECHEVARRIA omeprazole 40 mg capsule,delayed release(DR/EC) 40 mg PO BID tiotropium bromide 18 mcg capsule, w/inhalation device 1 cap inhalation DAILY Rx Instructions: puncture 1 cap using device; one dose = 2 inhalations multivitamin [Daily Multi-Vitamin] Tablet 1 tab PO DAILY quercetin 500 mg capsule 500 mg PO DAILY rizatriptan [Maxalt] 10 mg tablet 10 mg PO Q2H PRN (Reason: migraine headache) Qty: 10 0RF Rx Instructions: do not exceed 3 doses per 24 hrs Aimovig Autoinjector 70 mg/mL auto-injector 70 mg subcut QMONTH Qty: 1 0RF Rx Instructions: per patient's normal routine. cholecalciferol (vitamin D3) [Vitamin D3] 125 mcg (5,000 unit) tablet 125 mcg PO DAILY azelastine-fluticasone 137-50 mcg/spray spray,non-aerosol 2 spray intranasal BID Rx Instructions: administer into each nostril acetaminophen 500 mg Tablet 1,000 mg PO Q8 PRN (Reason: pain) insulin lispro [Humalog KwikPen Insulin] 100 unit/mL Insulin Pen See Protocol subcut ACHS PRN (Reason: high blood sugar) Protocol: 4. Sliding Scale Insulin High-Med Dosing Condition: 150-199 mg/dl = 2 units Condition: 200-259 mg/dl = 4 units Condition: 260-324 mg/dl = 6 units Condition: 325-374 mg/dl = 8 units Condition: 375-409 mg/dl = 10 units Condition: 410-449 mg/dl = 11 units Condition: Greater than 449 call physician Protocol Text: - Use for Total Daily Dose of Insulin 56-80 units - Patient who are insulin resistant or septic HIGH MEDIUM DOSING ALGORITHM polyethylene glycol 3350 17 gram Powder In Packet 17 g PO BID Qty: 0 0RF Rx Instructions: OTC hydrocortisone acetate 25 mg Suppository 25 mg FL BID Qty: 60 0RF bisacodyl 10 mg Suppository 10 mg FL DAILY Qty: 0 0RF Rx Instructions: OTC warfarin [Jantoven] 6 mg Tablet 12 mg PO DINNER 3 Days Qty: 6 0RF Rx Instructions: Take it until INR is 1.8 switch to 10 mg daily. Daily INR check and follow with PCP. sennosides [senna] 8.6 mg Tablet 17.2 mg PO BID Qty: 120 0RF Rx Instructions: OTC Toujeo SoloStar U-300 Insulin 300 unit/mL (1.5 mL) insulin pen 47 unit SUBCUT BID Qty: 4.5 0RF Patient Comments: INJECT 56 UNITSESUBCUTANEOUSLY JUNIOR Rx Instructions: TOUJEO potassium chloride 10 mEq tablet extended release PO Patient Comments: TAKE 2 TABLETS BY MOUTHGTWICE DAILY estradiol 0.01 % (0.1 mg/gram) cream VAGINAL Patient Comments: INSERT 1 GRAM DIRECTEDGVAGINALLY 3 TIMES A WEEK warfarin 10 mg tablet 12 mg PO DAILY Hold Instructions: Hold while taking warfarin 12 mg daily. Once INR is 1.8 or more switch to warfarin 10 mg daily. To take along with enoxaparin and overlap with 2 days of therapeutic INR, 2 or more and then discontinue enoxaparin. Rx Instructions: take along with enoxaparin. When INR is greater than or equal to 2 for 2 days, then discontinue enoxapain. epinephrine 0.3 mg/0.3 mL auto-injector 0.3 mg IM X1 PRN (Reason: Anaphylaxis) Qty: 1 0RF Primary Care Provider: Ophelia Soria Referrals: Ophelia Soria, [Primary Care Provider] - Activity Restrictions/Additional Instructions: Thank you for trusting us with your care today! Please take Tylenol (2 pills, 650 mg)every 6 hours as needed for pain and fever control. Please hold your neck scheduled dose of warfarin. Please continue warfarin therapy at 10 mg/day. Please return to the emergency department if your symptoms change or worsen. Please follow with your primary care physician for further outpatient evaluation and management. Disposition Disposition: Home, Self Care
--- NOTE | 2023-09-25 15:50 | CT_ITS ---
STUDY: CT BRAIN WITHOUT CONTRAST REASON FOR EXAM: Female, 62 years old. Headache, elevated INR RADIATION DOSAGE (If Supplied By Facility): CTDIvol = ( 44.99 ) mGy, DLP = ( 779.24 ) mGycm TECHNIQUE: Transaxial CT imaging of the brain was performed without administration of intravenous contrast material. Individualized dose optimization techniques were used for this CT. COMPARISON: 06/11/2023 FINDINGS: Normal soft tissue structures. Normal calvarium. There is mild cerebral atrophy with widening of the extra-axial spaces and ventricular dilatation. There are areas of decreased attenuation within the white matter tracts of the supratentorial brain, consistent with microvascular disease changes. Normal basal ganglia and thalami. Normal brainstem. Normal cerebellum. There is no intracranial hemorrhage. There are no findings of an acute ischemic infarction. Normal visualized paranasal sinuses. No change in a 2 cm oval mass of the right parotid gland. CT/Brain/Head without Contrast IMPRESSION: Chronic involutional changes of the brain. Electronically Signed: Luis Alexis MD at 17:23 EST ,
--- NOTE | 2023-09-25 15:51 | EKG12_ITS ---
Test Reason : DYSRHYTHMIA Blood Pressure : / mmHG Vent. Rate : 087 BPM Atrial Rate : 087 BPM P-R Int : 250 ms QRS Dur : 126 ms QT Int : 388 ms P-R-T Axes : 054 -33 018 degrees QTc Int : 466 ms Sinus rhythm with 1st degree A-V block Left axis deviation Right bundle branch block Abnormal ECG Confirmed by ABUNDIO MAURICIO, SUKHI ([id number]), video effects editor JIM LAKHANI ([id number]) on 09/29/2023 11:42:17 A M Referred By: DIONNA Confirmed By:DIDI DEL CASTILLO MD
--- NOTE | 2023-09-25 15:51 | CT_ITS ---
STUDY: CT ABDOMEN AND PELVIS WITH CONTRAST REASON FOR EXAM: Female, 62 years old. abdominal pain, elevated INR, rule out hematoma RADIATION DOSAGE (If Supplied By Facility): CTDIvol = ( 20.47 ) mGy, DLP = ( 2561.83 ) mGycm TECHNIQUE: Transaxial images were obtained from the dome of the diaphragm to the symphysis pubis without oral contrast. IV 100mL Isovue-370 was administered. Sagittal and coronal images were reconstructed. Individualized dose optimization techniques were used for this CT. COMPARISON: 09/12/2023 FINDINGS: The visualized lung bases are unremarkable. The visualized portions of the heart are within normal limits. Normal liver. The gallbladder is contracted. Normal spleen. Normal pancreas. Normal bilateral adrenal glands. Normal right kidney. Normal left kidney. Normal visualized stomach. Normal small intestine. Normal colon. There is non-visualization of the appendix. Normal abdominal aorta. Normal inferior vena cava. Normal retroperitoneum. Normal urinary bladder. No change in a 2.5 cm mass of fat attenuation the left ovary consistent with an ovarian dermoid. Normal abdominal wall. There are diffuse degenerative changes of the visualized lumbar spine. Status post posterior decompression at L4 and L5. CT/Abdomen/Pelvis W IV Cont ONLY IMPRESSION: No acute abnormality. Electronically Signed: Luis Alexis MD at 18:01 EST ,
[2023-09-25] MEDS: 0.9% Normal Saline (500mL Bag) 500 ML 1000 ML IV (16:01)
[2023-09-25] MEDS: Morphine 4 MG/ML Syringe IV ×2 (16:02→19:01)
[2023-09-25] MEDS: Ondansetron 4 MG/2 ML Vial IV (16:02)
[2023-09-25 16:12] LABS: Absolute Lymphocyte Count 0.69 X10^3/uL (0.83-4.51); Absolute Neutrophil Count 10.2 X10^3/uL (2.0-7.7); Basophil# 0.01 X10^3/uL; Basophil% 0.1 % (0-1); Hematocrit 41.2 % (37-47); Lymphocyte # 0.69 X10^3/ul (0.83-4.51); Lymphocyte % 6.1 % (19-41); Mean Corp Hgb Conc 31.6 g/dL (32-36); Mean Corpuscular Hgb 28.3 pg (27.0-32.0); Mean Corpuscular Volume 89.6 fL (81-99); Mean Platelet Vol. 10.4 fl (6.2-12.0); Monocyte# 0.37 X10^3/uL; Monocyte% 3.3 % (0-10); NRBC Flagged by Analyzer 0 % (0-5); Neutrophil # 10.17 X10^3/uL (2.7-7.7); Neutrophil % 90.1 % (47-70); Platelet Count 317 K/mm3 (150-450); RBC Distribution Width CV 14.4 % (11.6-14.6); White Blood Count 11.3 K/mm3 (4.4-11.0)
[2023-09-25 16:28] LABS: Prothrombin Time (Protime)PT. 39.5 SECONDS (11.7-14.9)
[2023-09-25 16:29] LABS: Partial Thromboplast Time 60.9 Seconds (24.1-36.2)
[2023-09-25 16:30] LABS: ALB/GLOB Ratio 0.9 RATIO (0.9-2.4); AST(SGOT) 25 U/L (15-37); Alanine Aminotransfer ALT/SGPT 29 U/L (13-56); Albumin, Serum 3.3 g/dL (3.2-5.0); Alkaline Phosphatase 56 U/L (45-117); Anion Gap 6 (5-15); BUN 15 mg/dL (7-18); BUN/Creat Ratio 17.4 RATIO (10-20); Calcium,Total 9.5 mg/dL (8.5-10.1); Chloride 103 mmol/L (98-107); Creatinine, Serum 0.86 mg/dL (0.55-1.02); EST Glomerular Filtration Rate 71 mL/min (>60); Est Glom Filt Rate - Afr Amer 86 mL/min (>60); Estimated Creatinine Clearance 57.82 ml/min; Globulin 3.5 g/dL (2.2-4.2); Glucose 188 mg/dL (74-106); Potassium 3.8 mmol/L (3.5-5.1); Protein, Total 6.8 g/dL (6.4-8.2); Sodium Level 138 mmol/L (136-145)
[2023-09-25 18:13] VITALS: BP 138/68; PULSE 79; RESP 16; O2SAT 98
[2023-09-25 18:39] VITALS: BP 130/93; PULSE 79; RESP 18; O2SAT 96
== END 2023-09-25 19:20 | disposition home or self-care (01) ==
PROVIDERS: Emergency Provider Emergency Medicine; PCP Internal Medicine; Visit Provider Emergency Medicine
DX: R79.1 Abnormal coagulation profile (principal); J44.9 Chronic obstructive pulmonary disease, unspecified; I50.32 Chronic diastolic (congestive) heart failure; I11.0 Hypertensive heart disease with heart failure; E11.42 Type 2 diabetes mellitus with diabetic polyneuropathy; Z79.4 Long term (current) use of insulin; G47.33 Obstructive sleep apnea (adult) (pediatric); I25.10 Atherosclerotic heart disease of native coronary artery without angina pectoris; E78.00 Pure hypercholesterolemia, unspecified; Z79.899 Other long term (current) drug therapy; Z86.16 Personal history of COVID-19; Z86.718 Personal history of other venous thrombosis and embolism; Z99.81 Dependence on supplemental oxygen; Z86.73 Personal history of transient ischemic attack (TIA), and cerebral infarction without residual deficits; Z86.711 Personal history of pulmonary embolism; Z79.01 Long term (current) use of anticoagulants
CPT/HCPCS: 96361; 96374; 96375; 96376; 99284; 70450; 74177; 80053; 85025; 85610; 85730; 93005; J7040; Q9967; A4216; J2405

== ENCOUNTER 2023-09-28 14:39 | Inpatient (IN) | payer MEDICARE, MEDICAID, SELFPAY ==
[2021-09-03 12:59] VITALS: BMI 43.4
[2023-09-28 14:40] VITALS: BP 160/83; PULSE 72; RESP 16; TEMP 36.3; O2SAT 99; BMI 39.3
[2023-09-28] MEDS: 0.9% Normal Saline (1000mL) 1,000 ML 1000 ML IV (15:34)
[2023-09-28] MEDS: Ondansetron 4 MG/2 ML Vial IV (15:35)
[2023-09-28] MEDS: Morphine 4 MG/ML Syringe IV (15:35)
[2023-09-28 15:41] VITALS: BP 147/75; PULSE 70; RESP 13; O2SAT 97
--- NOTE | 2023-09-28 15:46 | EDS_ITS ---
HPI HPI - GI History of Present Illness Chief Complaint: GI Bleed Narrative Narrative: 62-year-old female with history of PE on Coumadin presenting with 3 episodes of bright red bleeding per rectum. She states she has had this in the past. Previously saw Dr. Alcantar who banded some internal hemorrhoids, and cauterize some areas. Patient remains on Coumadin due to her risk of PE. Patient states that she was seen on of this week for right-sided abdominal pain and had a CT of the abdomen pelvis performed which did not show anything acute. At that point she states that her INR was 5.2. She was told to hold her dose of Coumadin on and to resume this on Friday. S she states that she did not take this on Friday because she did not feel right. She notes that today her INR is 6.2. She states that they have difficulty keeping her INR within normal limits. She has ability to test her INR at home. Patient states she feels a little lightheaded, nauseous. She states she still having right-sided abdominal pain. No fevers or chills. PFSH PFSH Medical History Anxiety Arthritis Asthma Atherosclerotic heart disease of [place] coronary artery without angina pectoris Back pain Back pain with sciatica Bilateral carotid bruits BiPAP (biphasic positive airway pressure) dependence Body mass index 45.0-49.9, adult Cardiology follow-up encounter Carotid artery disease COPD (chronic obstructive pulmonary disease) COVID-19 Depression Diabetes Diastolic heart failure Discoloration of skin Easy bruising Essential hypertension Excessive bleeding High cholesterol History of DVT (deep vein thrombosis) History of echocardiogram History of edema History of pain when walking History of pulmonary embolism History of steroid therapy History of stress test History of transcatheter aortic valve replacement (TAVR) (~04/19/21) Hx of transesophageal echocardiography (YOLANDA) for monitoring Insulin dependent diabetes mellitus Leg cramps Migraine headache Morbid obesity Non-smoker Nonrheumatic aortic (valve) stenosis On home oxygen therapy CHELSEY treated with BiPAP Peripheral neuropathy Personal history of anaphylaxis Positive FIT (fecal immunochemical test) Pulmonary embolism Restless legs Rotator cuff arthropathy of right shoulder Shortness of breath on exertion Subtherapeutic international normalized ratio (INR) TIA (transient ischemic attack) Type 2 diabetes mellitus Home Medications fluoxetine 20 mg capsule 40 mg PO DAILY anxiety 01/26/14 [History Last Taken 04/05/21] potassium chloride 10 mEq tablet,extended release(part/cryst) 20 meq PO BID Potassium Chloride 01/06/16 [History Last Taken 08/11/22] Ca 600 mg-D3 800 unit-magnes 40 xt-gelc-tsy-angel-boron chewable tablet 1 ea PO DAILY vitamins 05/27/16 [History Last Taken 04/05/21] fenofibrate nanocrystallized 145 mg tablet 72.5 mg PO QHS cholesterol 04/26/19 [History Last Taken 04/04/21] trazodone 50 mg tablet 50 mg PO QHS sleep 08/09/19 [History Last Taken 04/04/21] epinephrine 0.3 mg/0.3 mL injection, auto-injector 0.3 mg (0.3 mL) IM X1 PRN Anaphylaxis #1 ea 01/18/20 [Rx Last Taken Unknown] albuterol sulfate 2.5 mg/3 mL (0.083 %) solution for nebulization 2.5 mg (3 mL) inhalation Q2H PRN PRN dyspnea, wheezing #180 mL 04/24/20 [Rx Last Taken 07/02/21 09:00] albuterol sulfate 90 mcg/actuation aerosol inhaler 2 inh inhalation Q4H PRN PRN Sob &/Or Wheezing #18 grams 04/24/20 [Rx Last Taken 04/29/22] montelukast 10 mg tablet 10 mg PO DAILY allergies/asthma #30 tabs 12/07/20 [Rx Last Taken 04/05/21] alendronate 70 mg tablet 70 mg PO WE [facility] 12/21/20 [History Last Taken 08/07/22] nystatin 100,000 unit/gram topical powder 1 applic topical BID PRN PRN YEAST 12/21/20 [History Last Taken 04/05/21] ondansetron 4 mg disintegrating tablet 4 mg PO Q8H PRN Nausea 12/21/20 [History Last Taken Unknown] beclomethasone dipropionate 80 mcg/actuation HFA breath activated aerosol 1 inh inhalation BID Asthma 03/22/21 [History Last Taken 07/02/21 09:00] budesonide-formoterol HFA 160 mcg-4.5 mcg/actuation aerosol inhaler 2 puff inhalation BID asthma 03/22/21 [History Last Taken 04/29/22] furosemide 40 mg tablet 40 mg PO MOWEFR diuresis 03/22/21 [History Last Taken 04/05/21] ipratropium 0.5 mg-albuterol 3 mg (2.5 mg base)/3 mL nebulization soln 3 ml inhalation BID asthma 03/22/21 [History Last Taken 04/05/21] tizanidine 4 mg capsule 4 mg PO Q8H PRN muscle relaxer 03/22/21 [History Last Taken 02/10/23] cyanocobalamin (vitamin B-12) 100 mcg tablet (Vitamin B-12) 100 mcg PO DAILY echevarria pplement 04/05/21 [History Last Taken 04/05/21] melatonin 10 mg tablet 12 mg PO QHS sleep 04/05/21 [History Last Taken 04/04/21] pregabalin 150 mg capsule 150 mg PO TID nerve pain 04/05/21 [History Last Taken 08/11/22] diltiazem HCl 240 mg capsule,extended release 24 hr 240 mg PO DAILY BP 04/06/21 [History Last Taken 07/02/21 09:00] meclizine 25 mg tablet 25 mg PO DAILY PRN Vertigo 05/04/21 [History Last Taken Unknown] docusate sodium 100 mg capsule 100 mg PO BID stool softener 08/17/21 [History Last Taken Unknown] magnesium 250 mg tablet 400 mg PO DAILY supplement 08/17/21 [History Last Taken Unknown] L.acidophil-L.casei-B.bifid-B.longum-FOS 2 billion cell-50 mg capsule (Probiotic Blend) 1 cap PO DAILY supplement 11/07/21 [History Last Taken Unknown] ascorbate calcium (vitamin C) 500 mg tablet 1.5 g PO DAILY vitamin 11/07/21 [History Last Taken Unknown] chromium picolinate 200 mcg tablet 200 mcg PO DAILY supplement 11/07/21 [History Last Taken Unknown] clobetasol 0.05 % topical cream 1 applic topical PRN PRN RASH/ITCHING 11/07/21 [History Last Taken Unknown] coconut oil 1,000 mg capsule 1,000 mg PO DAILY supplement 11/07/21 [History Last Taken Unknown] cyclobenzaprine 5 mg tablet 10 mg PO Q8H PRN MUSCLE CRAMPING 11/07/21 [History Last Taken 08/11/22] guaifenesin 400 mg tablet (Mucus Relief) 400 mg PO Q4H PRN PRN Cough 11/07/21 [History Last Taken Unknown] levocetirizine 5 mg tablet 5 mg PO DAILY allergies 11/07/21 [History Last Taken Unknown] vitamin K2 45 mcg capsule 100 mcg PO DAILY vitamin 11/07/21 [History Last Taken Unknown] zinc amino acid chelate 50 mg tablet 100 mg PO DAILY supplement 11/07/21 [History Last Taken Unknown] dapagliflozin propanediol 10 mg tablet (Farxiga) 10 mg PO DAILY diabetes 08/11/22 [History Last Taken 08/11/22] moexipril 15 mg tablet 15 mg PO DAILY 08/11/22 [History Last Taken Unknown] pitavastatin calcium 4 mg tablet (Livalo) 4 mg PO DAILY cholesterol 08/11/22 [History Last Taken Unknown] multivitamin (Daily Multi-Vitamin tablet) 1 tab PO DAILY 06/12/23 [History Last Taken Unknown] omeprazole 40 mg capsule,delayed release 40 mg PO BID 06/12/23 [History Last Taken Unknown] quercetin 500 mg capsule 500 mg PO DAILY 06/12/23 [History Last Taken Unknown] semaglutide 1 mg/dose (4 mg/3 mL) subcutaneous pen injector (Ozempic) 1 mg subcut ECHEVARRIA 06/12/23 [History Last Taken Unknown] tiotropium bromide 18 mcg capsule with inhalation device 1 cap inhalation DAILY 06/12/23 [History Last Taken Unknown] erenumab-aooe 70 mg/mL subcutaneous auto-injector (Aimovig Autoinjector) 70 mg subcut QMONTH #1 mL 06/13/23 [Rx Last Taken Unknown] rizatriptan 10 mg tablet (Maxalt) 10 mg PO Q2H PRN migraine headache #10 tabs 06/13/23 [Rx Last Taken Unknown] acetaminophen 500 mg tablet 1,000 mg PO Q8 PRN pain 08/25/23 [History Last Taken Unknown] azelastine-fluticasone 137 mcg-50 mcg/spray nasal spray 2 spray intranasal BID 08/25/23 [History Last Taken Unknown] cholecalciferol (vitamin D3) 125 mcg (5,000 unit) tablet (Vitamin D3) 125 mcg PO DAILY 08/25/23 [History Last Taken Unknown] insulin lispro 100 unit/mL subcutaneous pen (Humalog KwikPen (U-100) Insulin) See Protocol subcut ACHS PRN high blood sugar 08/25/23 [History Last Taken Unknown] bisacodyl 10 mg rectal suppository 10 mg CA DAILY #0 ea 09/03/23 [Rx Last Taken Unknown] hydrocortisone acetate 25 mg rectal suppository 25 mg CA BID #60 ea 09/03/23 [Rx Last Taken Unknown] insulin glargine U-300 conc 300 unit/mL (1.5 mL) subcutaneous pen (Toujeo SoloStar U-300 Insulin) 47 unit (0.1567 mL) subcut BID DIABETES #4.5 mL 09/03/23 [Rx Last Taken 04/28/22 25 MG] polyethylene glycol 3350 17 gram oral powder packet 17 g PO BID #0 ea 09/03/23 [Rx Last Taken Unknown] sennosides 8.6 mg tablet (senna) 17.2 mg (2 x 8.6 mg) PO BID #120 tabs 09/03/23 [Rx Last Taken Unknown] warfarin 6 mg tablet (Jantoven) 12 mg (2 x 6 mg) PO DINNER 3 days #6 tabs 09/03/23 [Rx Last Taken Unknown] tramadol 50 mg tablet 50 mg PO Q8H PRN pain #45 tabs 09/24/23 [Rx Last Taken Unknown] estradiol 0.01% (0.1 mg/gram) vaginal cream vaginal 09/25/23 [History Last Taken Unknown] potassium chloride 10 mEq tablet,extended release meq PO 09/25/23 [History Last Taken Unknown] warfarin 10 mg tablet 12 mg PO DAILY 09/25/23 [History Last Taken Unknown] Allergy/AdvReac Type Severity Reaction Status Date / Time clindamycin Allergy Rash Verified 09/25/23 15:29 erythromycin base Allergy Rash Verified 09/25/23 15:29 [Erythromycin Base] omalizumab [From Xolair] Allergy Chest Verified 09/25/23 15:29 tightness Penicillins Allergy Rash Verified 09/25/23 15:29 sulfamethoxazole Allergy Chest Verified 09/25/23 15:29 [From Bactrim] tightness trimethoprim [From Bactrim] Allergy Chest Verified 09/25/23 15:29 tightness Sulfa (Sulfonamide AdvReac Unknown Unknown Verified 09/25/23 15:29 Antibiotics) Family History Father Heart disease Diabetes CAD (coronary artery disease) Mother CAD (coronary artery disease) CVA (cerebral vascular accident) Diabetes Brother CAD (coronary artery disease) CVA (cerebral vascular accident) Diabetes Unknown Cancer Grandmother CVA (cerebral vascular accident) Diabetes Grandfather CVA (cerebral vascular accident) Grandmother Myocardial infarction Brother Diabetes Sister Diabetes Surgical History Aortic valve replaced H/O lumbosacral spine surgery History of cardiac catheterization History of section History of hernia repair History of left heart catheterization (LHC) (~01/19/21) History of neck surgery History of rotator cuff surgery Hx of appendectomy Social History household members: spouse housing: apartment pets and animals: Yes Smoking Status: Never smoker second hand exposure: No alcohol intake: current alcohol intake frequency: a few times a week substance use type: does not use caffeine: No what type of physical activity do you participate in: none do you feel safe at home: Yes ROS ROS ED Constitutional Constitutional ED: Denies chills or fever(s) ENT ENT ED: Denies rhinorrhea or sore throat Cardiovascular Cardiovascular: Denies chest pain or palpitations Respiratory/Chest Respiratory/Chest: Reports dyspnea Gastrointestinal Gastrointestinal: Reports abdominal pain and other Details: Bright red bleeding per rectum Genitourinary Genitourinary ED: Denies dysuria or hematuria Musculoskeletal Musculoskeletal: Denies arthralgias or back pain Integumentary Denies abscess Neurologic Neurologic: Denies headache(s) Psychiatric Psychiatric: Denies anxiety or depression EXAM Physical Exam Const Vital Signs: 09/28/23 14:40 09/28/23 15:41 Temperature 97.3 F L Temperature Source Temporal Pulse Rate 72 70 Respiratory Rate 16 13 Blood Pressure 160/83 H 147/75 H Blood Pressure Mean 108 99 Pulse Ox 99 97 Oxygen Delivery Method Room Air Room Air Positive well nourished and obese General Appearance ED: NAD; Negative for pallor Nutritional Appearance: obese HEENT Reports moist mucous membranes normocephalic and atraumatic Eyes EOMs intact bilaterally General Eye ED: Negative for pale conjunctiva or scleral icterus Neck no lymphadenopathy Resp normal respiratory effort and clear to auscultation bilaterally Cardio regular rate and regular rhythm Neuro CN's II-XII intact bilaterally, moves all extremities and no sensory deficits noted Sensorium / Orientation: alert, oriented to person, oriented to place and oriented to time Motor Exam: strength 5/5 throughout Psych mental status grossly normal and thought process normal Skin General Skin Exam: Negative for jaundice or pallor MDM MDM MDM Narrative Medical decision making narrative: Patient presenting with GI bleed. She is on Coumadin and states her INR 6.8 today. She is also having some right-sided abdominal pain with recent CT of the abdomen pelvis with IV contrast. This was reviewed and was negative. Patient presenting with right flank pain. Differential includes colitis, diverticulitis, gastritis, pancreatitis, acute cholecystitis, constipation, appendicitis, UTI, pyelonephritis, calculi, ureteral calculi, obstruction, malignancy, dehydration, electrolyte abnormalities, ovarian torsion, ovarian cyst, ectopic . CBC will be obtained to assess white blood cell count, hemoglobin, platelets. BMP to assess renal function, electrolytes, glucose. Liver enzymes will be tested to check for transaminitis. Lipase to assess for pancreatitis. Urinalysis to assess for UTI. Lactic acid will be obtained to assess for ischemic bowel. Patient medicated with morphine, Zofran, IV fluids. Patient was typed and screened. INR will be obtained to assess for coagulopathy. CBC shows normal white blood cell count at 8.5. Hemoglobin stable at 12.1 and this is only slightly lower. INR is supratherapeutic at 5.5. Renal function electrolytes within normal limits. Lactic acid is normal. LFTs are normal. Lipase is normal. Patient was typed and screened but does not require blood currently. Discussed the case with Dr. Alcantar and we went over her previous CT and lab work. He recommended holding her Coumadin. He did not feel we needed reversal at this point. Patient will be admitted to the medical floor and monitored. Discussed all findings with patient's and questions were answered. Impression: 1. Abdominal pain 2. Lower GI bleed Lab Data Attestation: I reviewed the patient's lab results. Labs: Laboratory Results - last 24 hr 09/28/23 15:30 WBC 8.5 RBC 4.25 Hgb 12.1 Hct 38.1 MCV 89.6 MCH 28.5 MCHC 31.8 L RDW Std Deviation 45.8 H RDW Coeff of Carmencita 14.2 Plt Count 258 MPV 10.3 Immature Gran % (Auto) 0.900 Neut % (Auto) 57.0 Lymph % (Auto) 31.7 [place] % (Auto) 8.6 Eos % (Auto) 1.1 Baso % (Auto) 0.7 Absolute Neuts (auto) 4.8 Absolute Lymphs (auto) 2.69 Nucleated RBC % 0 PT 50.7 H INR 5.5 H* Sodium 142 Potassium 3.6 Chloride 110 H Carbon Dioxide 29.0 Anion Gap 3 L BUN 9 Creatinine 0.42 L Estim Creat Clear Calc 118.39 Est GFR (MDRD) Af Amer 198 Est GFR (MDRD) Non-Af 163 BUN/Creatinine Ratio 21.6 H Glucose 78 Lactic Acid 1.5 Calcium 8.0 L Total Bilirubin 0.20 Direct Bilirubin 0.07 AST 23 ALT 28 Alkaline Phosphatase 53 Troponin I High Sens 10 Total Protein 5.5 L Albumin 2.8 L Globulin 2.7 Lipase 46 Blood Type B POSITIVE Antibody Screen NEGATIVE Discharge Plan Triage Chief Complaint: GI Bleed ED Provider: Shon Gunn Dx/Rx/DC Orders Primary Care Provider: Ophelia Soria
[2023-09-28 16:05] LABS: Absolute Lymphocyte Count 2.69 X10^3/uL (0.83-4.51); Absolute Neutrophil Count 4.8 X10^3/uL (2.0-7.7); Basophil# 0.06 X10^3/uL; Basophil% 0.7 % (0-1); Eosinophil# 0.09 X10^3/uL; Eosinophils% 1.1 % (0-5); Hematocrit 38.1 % (37-47); Hemoglobin 12.1 g/dL (12.0-15.0); Lymphocyte # 2.69 X10^3/ul (0.83-4.51); Lymphocyte % 31.7 % (19-41); Mean Corp Hgb Conc 31.8 g/dL (32-36); Mean Corpuscular Hgb 28.5 pg (27.0-32.0); Mean Corpuscular Volume 89.6 fL (81-99); Mean Platelet Vol. 10.3 fl (6.2-12.0); Monocyte# 0.73 X10^3/uL; Monocyte% 8.6 % (0-10); NRBC Flagged by Analyzer 0 % (0-5); Neutrophil # 4.83 X10^3/uL (2.7-7.7); Platelet Count 258 K/mm3 (150-450); RBC Distribution Width CV 14.2 % (11.6-14.6); RBC Distribution Width SD 45.8 fl (35.1-43.9); Red Blood Count 4.25 M/mm3 (4.2-5.4); White Blood Count 8.5 K/mm3 (4.4-11.0)
[2023-09-28 16:15] LABS: Lactic Acid 1.5 mmol/L (0.4-1.9)
[2023-09-28 16:42] LABS: Prothrombin Time (Protime)PT. 50.7 SECONDS (11.7-14.9)
[2023-09-28 16:53] LABS: AST(SGOT) 23 U/L (15-37); Alanine Aminotransfer ALT/SGPT 28 U/L (13-56); Albumin, Serum 2.8 g/dL (3.2-5.0); Alkaline Phosphatase 53 U/L (45-117); Anion Gap 3 (5-15); BUN 9 mg/dL (7-18); BUN/Creat Ratio 21.6 RATIO (10-20); Bilirubin, Direct 0.07 mg/dL (0.00-0.30); Chloride 110 mmol/L (98-107); Creatinine, Serum 0.42 mg/dL (0.55-1.02); EST Glomerular Filtration Rate 163 mL/min (>60); Est Glom Filt Rate - Afr Amer 198 mL/min (>60); Estimated Creatinine Clearance 118.39 ml/min; Globulin 2.7 g/dL (2.2-4.2); Glucose 78 mg/dL (74-106); International Normalized Ratio 5.5; Lipase 46 U/L (13-75); Potassium 3.6 mmol/L (3.5-5.1); Protein, Total 5.5 g/dL (6.4-8.2); Sodium Level 142 mmol/L (136-145); Troponin-I HS 10 pg/mL (3.0-54.0)
--- NOTE | 2023-09-28 17:33 | HP.PCM.HOS_ITS ---
HPI - General General Date of Admission: 09/28/23 Date of Service: 09/28/23 Chief Complaint: Abdominal pain right-sided for 3 weeks. Rectal bleed for about 2 days HPI Leah HERMAN, is a 62 F with history of recent admission from 08 25-09/03 for rectal bleed came to ED for rectal bleed for last 2 days. She stated it started yesterday with about 2-3 small volume blood bright red with mainly wiping on the tissue paper but in ED today she had 3 large volume bright red blood which filled up the toilet bowl. Patient is also on warfarin for history of recurrent PE and multiple DVT. Her INR was elevated 5.5 and vitamin K 5 mg IV given. She also complained of right-sided abdominal pain ongoing for about 3 weeks constant in nature deep inside about 4-5/10 intensity without any precipitating exacerbating or relieving factor. She denies fever or chills. She had last colonoscopy August 2023 which showed diverticulosis and bleeding external/internal hemorrhoid which was banded and described in detail in assessment plan. She also felt dizzy and lightheaded on standing up or walking but her vital did not show tachycardia or hypotension. Patient had IV fluid in ED, discussed with GI and further admitted. She did not had CT abdomen in ER. 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 Back pain Back pain with sciatica Bilateral carotid bruits BiPAP (biphasic positive airway pressure) dependence Body mass index 45.0-49.9, adult Cardiology follow-up encounter Carotid artery disease COPD (chronic obstructive pulmonary disease) COVID-19 Depression Diabetes Diastolic heart failure Discoloration of skin Easy bruising Essential hypertension Excessive bleeding High cholesterol History of DVT (deep vein thrombosis) History of echocardiogram History of edema History of pain when walking History of pulmonary embolism History of steroid therapy History of stress test History of transcatheter aortic valve replacement (TAVR) (~04/19/21) Hx of transesophageal echocardiography (YOLANDA) for monitoring Insulin dependent diabetes mellitus Leg cramps Migraine headache Morbid obesity Non-smoker Nonrheumatic aortic (valve) stenosis On home oxygen therapy CHELSEY treated with BiPAP Peripheral neuropathy Personal history of anaphylaxis Positive FIT (fecal immunochemical test) Pulmonary embolism Restless legs Rotator cuff arthropathy of right shoulder Shortness of breath on exertion Subtherapeutic international normalized ratio (INR) TIA (transient ischemic attack) Type 2 diabetes mellitus Home Medications fluoxetine 20 mg capsule 40 mg PO DAILY anxiety 01/26/14 [History Last Taken 0 04/05/21] potassium chloride 10 mEq tablet,extended release(part/cryst) 20 meq PO BID Potassium Chloride 01/06/16 [History Last Taken 08/11/22] Ca 600 mg-D3 800 unit-magnes 40 fq-eaej-fnr-angel-boron chewable tablet 1 ea PO DAILY vitamins 05/27/16 [History Last Taken 04/05/21] fenofibrate nanocrystallized 145 mg tablet 72.5 mg PO QHS cholesterol 04/26/19 [History Last Taken 04/04/21] trazodone 50 mg tablet 50 mg PO QHS sleep 08/09/19 [History Last Taken 04/04/21] epinephrine 0.3 mg/0.3 mL injection, auto-injector 0.3 mg (0.3 mL) IM X1 PRN Anaphylaxis #1 ea 01/18/20 [Rx Last Taken Unknown] albuterol sulfate 2.5 mg/3 mL (0.083 %) solution for nebulization 2.5 mg (3 mL) inhalation Q2H PRN PRN dyspnea, wheezing #180 mL 04/24/20 [Rx Last Taken 07/02/21 09:00] albuterol sulfate 90 mcg/actuation aerosol inhaler 2 inh inhalation Q4H PRN PRN Sob &/Or Wheezing #18 grams 04/24/20 [Rx Last Taken 04/29/22] montelukast 10 mg tablet 10 mg PO DAILY allergies/asthma #30 tabs 12/07/20 [Rx Last Taken 04/05/21] alendronate 70 mg tablet 70 mg PO WE bone health 12/21/20 [History Last Taken 08/07/22] nystatin 100,000 unit/gram topical powder 1 applic topical BID PRN PRN YEAST 12/21/20 [History Last Taken 04/05/21] ondansetron 4 mg disintegrating tablet 4 mg PO Q8H PRN Nausea 12/21/20 [History Last Taken Unknown] beclomethasone dipropionate 80 mcg/actuation HFA breath activated aerosol 1 inh inhalation BID Asthma 03/22/21 [History Last Taken 07/02/21 09:00] budesonide-formoterol HFA 160 mcg-4.5 mcg/actuation aerosol inhaler 2 puff inhalation BID asthma 03/22/21 [History Last Taken 04/29/22] furosemide 40 mg tablet 40 mg PO MOWEFR diuresis 03/22/21 [History Last Taken 04/05/21] ipratropium 0.5 mg-albuterol 3 mg (2.5 mg base)/3 mL nebulization soln 3 ml inhalation BID asthma 03/22/21 [History Last Taken 04/05/21] tizanidine 4 mg capsule 4 mg PO Q8H PRN muscle relaxer 03/22/21 [History Last Taken 02/10/23] cyanocobalamin (vitamin B-12) 100 mcg tablet (Vitamin B-12) 100 mcg PO DAILY supplement 04/05/21 [History Last Taken 04/05/21] melatonin 10 mg tablet 12 mg PO QHS sleep 04/05/21 [History Last Taken 04/04/21] pregabalin 150 mg capsule 150 mg PO TID nerve pain 04/05/21 [History Last Taken 08/11/22] diltiazem HCl 240 mg capsule,extended release 24 hr 240 mg PO DAILY BP 04/06/21 [History Last Taken 07/02/21 09:00] meclizine 25 mg tablet 25 mg PO DAILY PRN Vertigo 05/04/21 [History Last Taken Unknown] docusate sodium 100 mg capsule 100 mg PO BID stool softener 08/17/21 [History Last Taken Unknown] magnesium 250 mg tablet 400 mg PO DAILY supplement 08/17/21 [History Last Taken Unknown] L.acidophil-L.casei-B.bifid-B.longum-FOS 2 billion cell-50 mg capsule (Probiotic Blend) 1 cap PO DAILY supplement 11/07/21 [History Last Taken Unknown] ascorbate calcium (vitamin C) 500 mg tablet 1.5 g PO DAILY vitamin 11/07/21 [History Last Taken Unknown] chromium picolinate 200 mcg tablet 200 mcg PO DAILY supplement 11/07/21 [History Last Taken Unknown] clobetasol 0.05 % topical cream 1 applic topical PRN PRN RASH/ITCHING 11/07/21 [History Last Taken Unknown] coconut oil 1,000 mg capsule 1,000 mg PO DAILY supplement 11/07/21 [History Last Taken Unknown] cyclobenzaprine 5 mg tablet 10 mg PO Q8H PRN MUSCLE CRAMPING 11/07/21 [History Last Taken 08/11/22] guaifenesin 400 mg tablet (Mucus Relief) 400 mg PO Q4H PRN PRN Cough 11/07/21 [History Last Taken Unknown] levocetirizine 5 mg tablet 5 mg PO DAILY allergies 11/07/21 [History Last Taken Unknown] vitamin K2 45 mcg capsule 100 mcg PO DAILY vitamin 11/07/21 [History Last Taken Unknown] zinc amino acid chelate 50 mg tablet 100 mg PO DAILY supplement 11/07/21 [History Last Taken Unknown] dapagliflozin propanediol 10 mg tablet (Farxiga) 10 mg PO DAILY diabetes 08/11/22 [History Last Taken 08/11/22] moexipril 15 mg tablet 15 mg PO DAILY 08/11/22 [History Last Taken Unknown] pitavastatin calcium 4 mg tablet (Livalo) 4 mg PO DAILY cholesterol 08/11/22 [History Last Taken Unknown] multivitamin (Daily Multi-Vitamin tablet) 1 tab PO DAILY 06/12/23 [History Last Taken Unknown] omeprazole 40 mg capsule,delayed release 40 mg PO BID 06/12/23 [History Last Taken Unknown] quercetin 500 mg capsule 500 mg PO DAILY 06/12/23 [History Last Taken Unknown] semaglutide 1 mg/dose (4 mg/3 mL) subcutaneous pen injector (Ozempic) 1 mg subcut ECHEVARRIA 06/12/23 [History Last Taken Unknown] tiotropium bromide 18 mcg capsule with inhalation device 1 cap inhalation DAILY 06/12/23 [History Last Taken Unknown] erenumab-aooe 70 mg/mL subcutaneous auto-injector (Aimovig Autoinjector) 70 mg subcut QMONTH #1 mL 06/13/23 [Rx Last Taken Unknown] rizatriptan 10 mg tablet (Maxalt) 10 mg PO Q2H PRN migraine headache #10 tabs 06/13/23 [Rx Last Taken Unknown] acetaminophen 500 mg tablet 1,000 mg PO Q8 PRN pain 08/25/23 [History Last Taken Unknown] azelastine-fluticasone 137 mcg-50 mcg/spray nasal spray 2 spray intranasal BID 08/25/23 [History Last Taken Unknown] cholecalciferol (vitamin D3) 125 mcg (5,000 unit) tablet (Vitamin D3) 125 mcg PO DAILY 08/25/23 [History Last Taken Unknown] insulin lispro 100 unit/mL subcutaneous pen (Humalog KwikPen (U-100) Insulin) See Protocol subcut ACHS PRN high blood sugar 08/25/23 [History Last Taken Unknown] bisacodyl 10 mg rectal suppository 10 mg UT DAILY #0 ea 09/03/23 [Rx Last Taken Unknown] hydrocortisone acetate 25 mg rectal suppository 25 mg UT BID #60 ea 09/03/23 [Rx Last Taken Unknown] insulin glargine U-300 conc 300 unit/mL (1.5 mL) subcutaneous pen (Toujeo SoloStar U-300 Insulin) 47 unit (0.1567 mL) subcut BID DIABETES #4.5 mL 09/03/23 [Rx Last Taken 04/28/22 25 MG] polyethylene glycol 3350 17 gram oral powder packet 17 g PO BID #0 ea 09/03/23 [Rx Last Taken Unknown] sennosides 8.6 mg tablet (senna) 17.2 mg (2 x 8.6 mg) PO BID #120 tabs 09/03/23 [Rx Last Taken Unknown] warfarin 6 mg tablet (Jantoven) 12 mg (2 x 6 mg) PO DINNER 3 days #6 tabs 09/03/23 [Rx Last Taken Unknown] tramadol 50 mg tablet 50 mg PO Q8H PRN pain #45 tabs 09/24/23 [Rx Last Taken Unknown] estradiol 0.01% (0.1 mg/gram) vaginal cream vaginal 09/25/23 [History Last Taken Unknown] potassium chloride 10 mEq tablet,extended release meq PO 09/25/23 [History Last Taken Unknown] warfarin 10 mg tablet 12 mg PO DAILY 09/25/23 [History Last Taken Unknown] levofloxacin 750 mg tablet 750 mg PO DAILY URI 09/28/23 [History Last Taken 1 11/29/22] prednisone 10 mg tablet See Rx Instructions PO .COMPLEX URI 09/28/23 [History Last Taken Unknown] prednisone 20 mg tablet See Rx Instructions PO .COMPLEX URI 09/28/23 [History Last Taken 09/28/23] Allergy/AdvReac Type Severity Reaction Status Date / Time clindamycin Allergy Rash Verified 09/25/23 15:29 erythromycin base Allergy Rash Verified 09/25/23 15:29 [Erythromycin Base] omalizumab [From Xolair] Allergy Chest Verified 09/25/23 15:29 tightness Penicillins Allergy Rash Verified 09/25/23 15:29 sulfamethoxazole Allergy Chest Verified 09/25/23 15:29 [From Bactrim] tightness trimethoprim [From Bactrim] Allergy Chest Verified 09/25/23 15:29 tightness Sulfa (Sulfonamide AdvReac Unknown Unknown Verified 09/25/23 15:29 Antibiotics) Family History Father Heart disease Diabetes CAD (coronary artery disease) Mother CAD (coronary artery disease) CVA (cerebral vascular accident) Diabetes Brother CAD (coronary artery disease) CVA (cerebral vascular accident) Diabetes Unknown Cancer Grandmother CVA (cerebral vascular accident) Diabetes Grandfather CVA (cerebral vascular accident) Grandmother Myocardial infarction Brother Diabetes Sister Diabetes Surgical History Aortic valve replaced H/O lumbosacral spine surgery History of cardiac catheterization History of section History of hernia repair History of left heart catheterization (LHC) (~01/19/21) History of neck surgery History of rotator cuff surgery Hx of appendectomy Social History household members: spouse housing: apartment pets and animals: Yes Smoking Status: Never smoker second hand exposure: No alcohol intake: current alcohol intake frequency: a few times a week substance use type: does not use caffeine: No what type of physical activity do you participate in: none do you feel safe at home: Yes ROS ROS Narrative Constitutional: Reports fatigue and weakness. No fever. HEENT: Reports systems reviewed and no addt'l complaints, except as documented Respiratory/Chest: No acute shortness of breath or respiratory distress or wheezing. CVS: No acute chest pain pressure tightness Gastrointestinal: As described in HPI Genitourinary: Denies burning urination or new urinary tract symptoms Musculoskeletal: Denies acute joint pain or limited range of motion. Bilateral knee arthritis. No acute injury Spine: Chronic sciatica pain with back pain. History of back surgery Neurologic: Denies seizure-like symptoms. skin: No ulcer. No rash Endocrinology: Reports systems reviewed and no addt'l complaints, except as documented Hematologic/Lymphatic: Reports systems reviewed and no addt'l complaints, except as documented Rest 14 ROS are negative except as mentioned in HPI Vital Signs Vital Signs Vital Signs: 09/28/23 14:40 09/28/23 15:41 Temperature 97.3 F L Temperature Source Temporal Pulse Rate 72 70 Respiratory Rate 16 13 Blood Pressure 160/83 H 147/75 H Blood Pressure Mean 108 99 Pulse Ox 99 97 Oxygen Delivery Method Room Air Room Air Weight Weight: 229 lb Body Mass Index (BMI) 39.3 Physical Exam Narrative General: Alert, Oriented x3, Cooperative. Morbid obesity BMI 39.3 kg/m? HEENT: Atraumatic, PERRLA, EOMI, Normocephalic Oral: Oral mucosa dry. No Gingival or Mucosal Lesions/ Ulcerations Neck: Supple, No JVD, Negative Carotid Bruits Lungs: Air entry diminished in bilateral lung bases. No crepitation/rhonchi Cardiovascular: Regular rate, Regular Rhythm, Normal S1, Normal S2, status post TAVR, aortic valve sound. Abdomen: Bowel Sounds Present, Soft, tenderness present over right flank and iliac region. Mild gaseous distention. : No renal angle tenderness. No suprapubic tenderness. Extremities: Mild edema edema, Capillary Refill Less than 3 Seconds Skin: No rashes, No breakdown Musculoskeletal: No Tenderness to Palpation of Joints or Extremities. ROM restricted at knees and hip joints Spine: Status post back surgery. Chronic sciatica. Neurological: Cranial nerves II-XII grossly intact, DTR 2+/4. No acute focal neurological deficit. Psych/Mental Status: Normal Affect, Appropriate. Results Lab / Micro Data 09/28/23 19:04 09/28/23 15:30 Labs: Laboratory Results - last 24 hr 09/28/23 15:30: WBC 8.5, RBC 4.25, Hgb 12.1, Hct 38.1, MCV 89.6, MCH 28.5, MCHC 31.8 L, RDW Std Deviation 45.8 H, RDW Coeff of Carmencita 14.2, Plt Count 258, MPV 10.3, Immature Gran % (Auto) 0.900, Neut % (Auto) 57.0, Lymph % (Auto) 31.7, [place] % (Auto) 8.6, Eos % (Auto) 1.1, Baso % (Auto) 0.7, Absolute Neuts (auto) 4.8, Absolute Lymphs (auto) 2.69, Nucleated RBC % 0, PT 50.7 H, INR 5.5 H*, Sodium 142, Potassium 3.6, Chloride 110 H, Carbon Dioxide 29.0, Anion Gap 3 L, BUN 9, Creatinine 0.42 L, Estim Creat Clear Calc 118.39, Est GFR (MDRD) Af Amer 198, Est GFR (MDRD) Non-Af 163, BUN/Creatinine Ratio 21.6 H, Glucose 78, Lactic Acid 1.5, Calcium 8.0 L, Total Bilirubin 0.20, Direct Bilirubin 0.07, AST 23, ALT 28, Alkaline Phosphatase 53, Troponin I High Sens 10, Total Protein 5.5 L, Albumin 2.8 L, Globulin 2.7, Lipase 46, Blood Type B POSITIVE, Antibody Screen N EGATIVE Assessment & Plan Assessment/Plan (1) Acute lower GI bleeding: (2) Elevated INR: PLAN: Plan Patient is a 62-year-old female who presented to [facility] ED on 08/25/2023 with bright red blood per rectum. 1. Acute on recurrent lower GI bleed: Patient has known history of diverticulosis and large bowel in previous colonoscopy in 2021. Last colonoscopy in August 2020 shows bleeding external/internal hemorrhoids that were banded, diverticulosis in the rectosigmoid, sigmoid and descending colon. Hemodynamically blood pressure and heart rate in normal range. H&H 12.6/40%. No leukocytosis. Platelet count normal. GI consulted. Full liquid diet. 2. Subacute right-sided abdominal pain, possibility of right-sided colitis:CT abdomen with oral and IV contrast ordered. With abdominal pulmonary suspicion of colitis therefore started on IV Cipro and Flagyl. Stool for C. difficile, enteric bacteriology panel, Giardia, lactoferrin ordered. Rest as mentioned a caterina. During last patient patient had constipation and which required magnesium citrate and multiple stool softener. 3. History of PE/DVT on Coumadin Most recent DVT was about 1 year ago and lower extremity. Had 2 times PE. Patient also has coagulopathy INR 5.5. Vitamin K 5 mg IV given. When hemostasis is secured patient will need to put back on IV heparin drip and warfarin to start gradually. 4. Recurrent falls: Previous CT abdomen pelvis showed subacute compression fracture at T8, likely related to falls. Patient has chronic back pain with sciatica but denies acute exacerbation. PT and OT ordered. 5. Diabetes mellitus type 2: Glucose BMPs 78. Accu-Chek before meals and cover with Humalog sliding scale. Hold scheduled insulin, Farxiga or other oral medications at home. Chronic medical conditions: ? Morbid obesity: BMI 39.3 kg square meter. Encouraged lifestyle modifications. ? Nonobstructive CAD, history of aortic valve replacement, TAVR, HTN, HLD: Holding home Coumadin, continue other home medications. ? CHELSEY: Continue BiPAP at night. ? Asthma/COPD: Continue home inhalers. ? Osteoporosis: Holding home alendronate. ? Insomnia: Continue home melatonin and trazodone. ? GERD: Continue PPI 40 mg IV pantoprazole. DVT prophylaxis: Bilateral SCDs. Pharmacologic prophylaxis contraindicated. Living will/advanced directive/end of life care: Patient does not have living will or advanced directive. After discussion of benefits/risks procedures involved with full code, DNR CC arrest and DNR CC, the patient opted for full code. Her is power of real estate attorney for health. Patient does want artificial life support including intubation, tube feed, ventilator and/chest compression, central venous catheter, vasopressor and DC shock if needed Total time spent in [id number] encounter in discussion of advanced directive 17 minutes. Laboratory Results 09/28/23 15:30: WBC 8.5, RBC 4.25, Hgb 12.1, Hct 38.1, MCV 89.6, MCH 28.5, MCHC 31.8 L, RDW Std Deviation 45.8 H, RDW Coeff of Carmencita 14.2, Plt Count 258, MPV 10.3, Immature Gran % (Auto) 0.900, Neut % (Auto) 57.0, Lymph % (Auto) 31.7, [place] % (Auto) 8.6, Eos % (Auto) 1.1, Baso % (Auto) 0.7, Absolute Neuts (auto) 4.8, Absolute Lymphs (auto) 2.69, Nucleated RBC % 0, PT 50.7 H, INR 5.5 H* , Sodium 142, Potassium 3.6, Chloride 110 H, Carbon Dioxide 29.0, Anion Gap 3 L, BUN 9, Creatinine 0.42 L, Estim Creat Clear Calc 118.39, Est GFR (MDRD) Af Amer 198, Est GFR (MDRD) Non-Af 163, BUN/Creatinine Ratio 21.6 H, Glucose 78, Lactic Acid 1.5, Calcium 8.0 L, Total Bilirubin 0.20, Direct Bilirubin 0.07, AST 23, ALT 28, Alkaline Phosphatase 53, Troponin I High Sens 10, Total Protein 5.5 L, Albumin 2.8 L, Globulin 2.7, Lipase 46, Blood Type B POSITIVE, Antibody Screen NEGATIVE Charges/Coding Visit Charges Inpatient E&M: 87236 Init Hosp L3 Multi Select Codes Hospitalists' Procedures Procedures: 84815 Advncd Care Plan 30 Min
--- NOTE | 2023-09-28 17:53 | NURSING ---
PCU ALEXANDRA GI BLEED, COUMADIN COAGULOPATHY
[2023-09-28] MEDS: Pantoprazole Sodium 40 MG in 0.9% Normal Saline (100mL MB+) 100 ML 330 MG IV (18:01)
[2023-09-28 18:30] VITALS: BMI 39.2
[2023-09-28 18:54] VITALS: BP 151/67; PULSE 73; RESP 16; TEMP 36.2; O2SAT 96
[2023-09-28 19:13] LABS: Hematocrit 40.3 % (37-47); Hemoglobin 12.6 g/dL (12.0-15.0)
--- NOTE | 2023-09-28 20:32 | CT_ITS ---
STUDY: CT ABDOMEN AND PELVIS WITH CONTRAST REASON FOR EXAM: Female, 62 years old. right sided abd pain, colitis? rectal bleed -- with oral and IV contrast RADIATION DOSAGE (If Supplied By Facility): CTDIvol = ( 22.80 ) mGy, DLP = ( 1489.21 ) mGycm TECHNIQUE: Transaxial images were obtained from the dome of the diaphragm to the symphysis pubis with oral contrast. Oral and amp; IV Gastrografin and amp; 100mL Isovue-370 was administered. Sagittal and coronal images were reconstructed. Individualized dose optimization techniques were used for this CT. COMPARISON: 09/25/2023 FINDINGS: The visualized lung bases are unremarkable. The visualized portions of the heart are within normal limits. Normal liver. Normal gallbladder and extrahepatic biliary system. Normal spleen. Normal pancreas. Normal bilateral adrenal glands. Normal right kidney. Normal left kidney. Normal visualized stomach. 2 small diverticulum second portion the duodenum. Normal colon. There is non-visualization of the appendix. There is diffuse atherosclerotic calcification of the abdominal aorta, without a demonstrated aneurysm. Normal inferior vena cava. Normal retroperitoneum. Normal urinary bladder. 3 cm oval mass of fat attenuation of the left ovary with a peripheral calcification consistent with a dermoid. This is unchanged. Normal abdominal wall. There are diffuse degenerative changes of the visualized lumbar spine. Status post posterior decompression at L4 and L5. CT/Abdomen/Pelvis WITH Contrast IMPRESSION: No acute abnormality. Electronically Signed: Luis Alexis MD at 0:03 EST ,
[2023-09-28] MEDS: Phytonadione (Vit K) 5 MG in 0.9% Normal Saline (50mL Bag) 50 ML 150 MG IV (21:07)
[2023-09-28] MEDS: 0.9% Saline Lock 10 ML Syringe IV (21:08)
[2023-09-28 21:40] LABS: Magnesium 2.2 mg/dL (1.6-2.6)
[2023-09-28] MEDS: Ipratropium/Albuterol Sulfate 3 ML AMPUL.NEB INHALATION (22:46)
[2023-09-28] MEDS: Budesonide Respules 0.5 MG/2 ML AMPUL.NEB. INHALATION (22:46)
[2023-09-28 22:48] VITALS: PULSE 83; RESP 18
[2023-09-29] VITALS (7 sets, daily range): BP systolic 158–173; BP diastolic 62–79; PULSE 73–82; RESP 15–18; TEMP 36.1–36.8; O2SAT 94–98; BMI 38.8
[2023-09-29] MEDS: Fenofibrate 145 MG Tablet 72.5 MG PO (00:07)
[2023-09-29] MEDS: Pantoprazole Sodium 40 MG in 0.9% Normal Saline (100mL MB+) 100 ML 330 MG IV ×2 (00:34→13:37)
[2023-09-29] MEDS: Lactated Ringers 1,000 ML 100 ML IV (00:39)
[2023-09-29 00:49] LABS: Bedside Glucose 73 mg/dL (74-106)
[2023-09-29 00:52] LABS: Hematocrit 41.4 % (37-47); Hemoglobin 13.1 g/dL (12.0-15.0)
[2023-09-29] MEDS: Ciprofloxacin 200 MG/100 ML BAG 100 MG IV ×2 (01:43→11:17)
[2023-09-29] MEDS: metroNIDAZOLE 500 MG/100 ML BAG 100 MG IV ×3 (03:01→15:23)
--- NOTE | 2023-09-29 04:33 | CPS ---
pt has home bipap unit with 2L bled in.
[2023-09-29 06:35] LABS: Absolute Lymphocyte Count 2.81 X10^3/uL (0.83-4.51); Absolute Neutrophil Count 4.8 X10^3/uL (2.0-7.7); Basophil# 0.09 X10^3/uL; Basophil% 1.1 % (0-1); Eosinophil# 0.12 X10^3/uL; Eosinophils% 1.4 % (0-5); Hematocrit 43.4 % (37-47); Hemoglobin 13.3 g/dL (12.0-15.0); Lymphocyte # 2.81 X10^3/ul (0.83-4.51); Lymphocyte % 33.3 % (19-41); Mean Corp Hgb Conc 30.6 g/dL (32-36); Mean Corpuscular Hgb 28.4 pg (27.0-32.0); Mean Corpuscular Volume 92.7 fL (81-99); Mean Platelet Vol. 10.4 fl (6.2-12.0); Monocyte# 0.54 X10^3/uL; Monocyte% 6.4 % (0-10); NRBC Flagged by Analyzer 0 % (0-5); Platelet Count 266 K/mm3 (150-450); RBC Distribution Width CV 14.5 % (11.6-14.6); RBC Distribution Width SD 48.8 fl (35.1-43.9); Red Blood Count 4.68 M/mm3 (4.2-5.4); White Blood Count 8.4 K/mm3 (4.4-11.0)
[2023-09-29] MEDS: Ondansetron 4 MG/2 ML Vial IV (06:36)
[2023-09-29] MEDS: 0.9% Saline Lock 10 ML Syringe IV ×2 (06:37→15:23)
[2023-09-29 06:41] LABS: Anion Gap 7 (5-15); BUN 7 mg/dL (7-18); BUN/Creat Ratio 16.3 RATIO (10-20); Calcium,Total 8.1 mg/dL (8.5-10.1); Chloride 108 mmol/L (98-107); Creatinine, Serum 0.43 mg/dL (0.55-1.02); EST Glomerular Filtration Rate 157 mL/min (>60); Est Glom Filt Rate - Afr Amer 190 mL/min (>60); Estimated Creatinine Clearance 115.64 ml/min; Glucose 79 mg/dL (74-106); Potassium 3.7 mmol/L (3.5-5.1); Sodium Level 143 mmol/L (136-145)
[2023-09-29] MEDS: Acetaminophen 500 MG Tablet 1000 MG PO (06:49)
[2023-09-29 07:15] LABS: International Normalized Ratio 2.1; Prothrombin Time (Protime)PT. 24.2 SECONDS (11.7-14.9)
[2023-09-29] MEDS: Budesonide Respules 0.5 MG/2 ML AMPUL.NEB. INHALATION (07:22)
[2023-09-29] MEDS: Ascorbic Acid 500 MG Tablet 1500 MG PO (11:15)
[2023-09-29] MEDS: Furosemide 40 MG Tablet PO (11:16)
[2023-09-29] MEDS: dilTIAZem CD 240 MG Capsule PO (11:16)
[2023-09-29] MEDS: Fluoxetine HCl 40 MG CAPSULE PO (11:16)
[2023-09-29] MEDS: HYDROmorphone Inj 0.2 MG/ML SYRINGE IV ×2 (11:27→15:23)
[2023-09-29 12:22] LABS: Bedside Glucose 104 mg/dL (74-106)
[2023-09-29 12:22] LABS: Bedside Glucose 77 mg/dL (74-106)
--- NOTE | 2023-09-29 13:04 | DCINST_ITS ---
Discharge Instructions Diet Discharge Diet: Low fat / Low cholesterol and Carb Control Diet Activity Discharge Activity: Return to Normal Activity Dressing / Incision Call your doctor if you observe: Fever of 101 or Higher, Shortness of breath, Dizziness, Fainting spells, Swelling in the ankles, Chest pain and Increased palpitations (irregular heartbeat) Follow Up Care Test Results: Test results from this visit will be discussed in further detail at your follow- up appointment, if applicable. Discharge Plan Admission Admit Date/Time: 09/28/23 17:34 Attending Provider: Smith Reed Primary Care Provider: Ophelia Soria Consulting Providers: Ramiro Carey Instructions Additional Instructions / Restrictions: Hemoglobin is stable indicating that the bleeding is discontinued. Your INR is down to 2.1 today on the day of discharge. I would monitor this as an outpatient by her PCP and can resume warfarin at their discretion. Discharge Orders/Prescriptions Prescriptions: Continued trazodone 50 mg tablet 50 mg PO QHS albuterol sulfate 2.5 mg /3 mL (0.083 %) solution for nebulization 2.5 mg INHALATION Q2H PRN PRN (Reason: dyspnea, wheezing) Qty: 180 6RF albuterol sulfate 90 mcg/actuation HFA aerosol inhaler 2 inh INHALATION Q4H PRN PRN (Reason: Sob &/Or Wheezing) Qty: 18 6RF montelukast 10 mg tablet 10 mg PO DAILY Qty: 30 6RF alendronate 70 mg tablet 70 mg PO WE ondansetron 4 mg tablet,disintegrating 4 mg PO Q8H PRN (Reason: Nausea) nystatin 100,000 unit/gram powder 1 applic TOPICAL BID PRN PRN (Reason: YEAST) meclizine 25 mg tablet 25 mg PO DAILY PRN (Reason: Vertigo) magnesium 250 mg tablet 400 mg PO DAILY levocetirizine 5 mg tablet 5 mg PO DAILY cyclobenzaprine 5 mg tablet 10 mg PO Q8H PRN (Reason: MUSCLE CRAMPING) Patient Comments: I only take it when I absolutely have to...I am supposed to take it three times per day, but I take it prn...I makes me sleep for 6 hours and I didn't like that. clobetasol 0.05 % cream 1 applic topical PRN PRN (Reason: RASH/ITCHING) chromium picolinate 200 mcg tablet 200 mcg PO DAILY coconut oil 1,000 mg capsule 1,000 mg PO DAILY Probiotic Blend 2 billion cell-50 mg capsule 1 cap PO DAILY Rx Instructions: give with meal/snack ascorbate calcium (vitamin C) 500 mg tablet 1 g PO DAILY vitamin K2 45 mcg capsule 100 mcg PO DAILY fluoxetine 20 MG capsule 40 mg PO DAILY Patient Comments: Depression/anxiety potassium chloride 10 MEQ tablet 20 meq PO BID Patient Comments: Supplement docusate sodium 100 mg capsule 100 mg PO DAILY Patient Comments: Stool softner Sh-P0-pzc-thgm-owj-uxrr-boron 1 EACH tablet,chewable 1 ea PO DAILY fenofibrate nanocrystallized 145 MG tablet 72.5 mg PO QHS tizanidine 4 mg Capsule 4 mg PO Q8H PRN (Reason: muscle relaxer) Patient Comments: I only take this if I don't want to be knocked out for 6 hours from the cyclobenzaprine. I take one or the other, not both. furosemide 40 MG tablet 40 mg PO MOWEFR Patient Comments: Diuretic - water pill to remove extra fluid Rx Instructions: three times a week but twice a day MOWEFR ipratropium-albuterol 0.5 mg-3 mg(2.5 mg base)/3 mL solution for nebulization 3 ml INHALATION BID Rx Instructions: Continue until re-evaluation per pulmonary with possible transition back to home regimen at that time. budesonide-formoterol 160-4.5 mcg/actuation HFA aerosol inhaler 2 puff INHALATION BID beclomethasone dipropionate 80 mcg/actuation HFA aerosol breath activated 1 inh inhalation BID cyanocobalamin (vitamin B-12) [Vitamin B-12] 100 mcg Tablet 100 mcg PO DAILY pregabalin 150 mg capsule 150 mg PO TID melatonin 10 mg Tablet 12 mg PO QHS diltiazem HCl 240 mg capsule,extended release 24hr 240 mg PO DAILY moexipril 15 mg tablet 15 mg PO DAILY pitavastatin calcium [Livalo] 4 mg tablet 4 mg PO DAILY Farxiga 10 mg tablet 10 mg PO DAILY Ozempic 1 mg/dose (4 mg/3 mL) pen injector 1 mg subcut ECHEVARRIA omeprazole 40 mg capsule,delayed release(DR/EC) 40 mg PO BID tiotropium bromide 18 mcg capsule, w/inhalation device 18 mcg inhalation DAILY Rx Instructions: puncture 1 cap using device; one dose = 2 inhalations multivitamin [Daily Multi-Vitamin] Tablet 1 tab PO DAILY quercetin 500 mg capsule 500 mg PO DAILY rizatriptan [Maxalt] 10 mg tablet 10 mg PO Q2H PRN (Reason: migraine headache) Qty: 10 0RF Rx Instructions: do not exceed 3 doses per 24 hrs Aimovig Autoinjector 70 mg/mL auto-injector 70 mg subcut QMONTH Qty: 1 0RF Patient Comments: pt requeste to stop taking Rx Instructions: per patient's normal routine. cholecalciferol (vitamin D3) [Vitamin D3] 125 mcg (5,000 unit) tablet 125 mcg PO DAILY azelastine-fluticasone 137-50 mcg/spray spray,non-aerosol 2 spray intranasal BID Rx Instructions: administer into each nostril acetaminophen 500 mg Tablet 1,000 mg PO Q8 PRN (Reason: pain) polyethylene glycol 3350 17 gram Powder In Packet 17 g PO BID Qty: 0 0RF Rx Instructions: OTC sennosides [senna] 8.6 mg Tablet 17.2 mg PO BID Qty: 120 0RF Rx Instructions: OTC prednisone 20 mg tablet See Rx Instructions PO .COMPLEX Patient Comments: TAKE 1 TABLET BY MOUTH 2ITIMES A DAY FOR 3 DAYS, THEN 1 TABLET ONCE DAILY FOR 3 DAYS in combination with 10mg tablet to equal 30mg x 3 days. pt states she j ust finished her 40mg doses today Rx Instructions: orally; TAKE 1 TABLET BY MOUTH 2ITIMES A DAY FOR 3 DAYS, THEN 1 TABLET ONCE DAILY FOR 3 DAYS in combination with 10mg tablet to equal 30mg x 3 days levofloxacin 750 mg tablet 750 mg PO DAILY Patient Comments: pt has taken three days of her 10 day course Rx Instructions: x 10 days prednisone 10 mg tablet See Rx Instructions PO .COMPLEX Patient Comments: pt has not started 30mg daily dose yet Rx Instructions: orally pt is to take two 20mg tabs daily x3 days, then one 20mg tablet in combination with 10mg tablet, to equal 30mg x 3 more days; Hazel SoloStar U-300 Insulin 300 unit/mL (1.5 mL) insulin pen 50 unit SUBCUT BID Patient Comments: INJECT 56 UNITSESUBCUTANEOUSLY JUNIOR Rx Instructions: TOUJEO diltiazem HCl [Cardizem CD] 120 mg capsule,extended release 24hr 120 mg PO DAILY Patient Comments: as directed by doctor ondansetron 4 mg tablet,disintegrating 4 mg PO DAILY PRN (Reason: nausea) epinephrine 0.3 mg/0.3 mL auto-injector 0.3 mg IM X1 PRN (Reason: Anaphylaxis) Qty: 1 0RF No Action oxycodone-acetaminophen 5-325 mg tablet 1 tab PO BID Lipozene 1,500 mg PO 11XD sennosides-docusate sodium 8.6-50 mg tablet 2 tab-cap PO DAILY PRN (Reason: constipation) black seed oil 10,000 mg PO DAILY oregano oil 1,500 mg capsule 15,000 mg PO DAILY Acidophilus Tablet,Chewable 1 tab PO DAILY Patient Comments: 175 mg tab ascorbic acid (vitamin C) 500 mg capsule 500 mg PO QHS zinc 100 mg tablet 100 mg PO DAILY levofloxacin 750 mg tablet 750 mg PO DAILY prednisone 20 mg tablet See Taper PO QODAY Taper: Prednisone Taper 40 mg WITH BREAKFAST for 3 Days 20 mg WITH BREAKFAST for 3 Days 10 mg WITH BREAKFAST for 3 Days Patient Comments: pt on first day of 20 mg Referrals / Follow Up: Ophelia Soria DO [Primary Care Provider] - 10/16/23 10:45 am Disposition Disposition (needs filled in before D/C Order can be placed): Home Health Service
--- NOTE | 2023-09-29 13:30 | CASEMGMT ---
JOSS FIERRO chart review: Patient was admitted 08/25-09/03/23 for LGIB. See JOSS FIERRO assessment from 08/26/23. Patient was discharged to home with [facility] for SN and [facility] for outpatient therapy. Patient returned for GI Bleed on 09/28/23. Patient had INR of 5.5, now 2.1. JOSS FIERRO in to discuss needs at discharge and readmission. Patient states she had seen her PCP and GI as scheduled. Patient states she is to see Dr. Jacobsen and pain doctor on 10/08/23. Patient states she was seen by [facility] and had been attending outpatient therapy. Patient states she tests her INR at home and follows with PCP for management. Patient states she was taking medications as prescribed. Patient wishes to return home with resumption of [facility]. JOSS FIERRO sent resumption of [facility] via [facility] to [facility]. Patient denied further question or concerns at this time.
--- NOTE | 2023-09-29 13:39 | PHA.DC.MR.R ---
Pharmacy [place] Med Reconciliation Pharmacy Service has performed discharge medication reconciliation for this patient. The patient's discharge medication list was reviewed for discrepancies and discrepancies were resolved. Medications at Discharge Home Medications fluoxetine 20 mg capsule 40 mg PO DAILY anxiety 01/26/14 potassium chloride 10 mEq tablet,extended release(part/cryst) 20 meq PO BID Potassium Chloride 01/06/16 Ca 600 mg-D3 800 unit-magnes 40 oz-ldnl-tvo-angel-boron chewable tablet 1 ea PO DAILY vitamins 05/27/16 fenofibrate nanocrystallized 145 mg tablet 72.5 mg PO QHS cholesterol 04/26/19 trazodone 50 mg tablet 50 mg PO QHS sleep 08/09/19 epinephrine 0.3 mg/0.3 mL injection, auto-injector 0.3 mg (0.3 mL) IM X1 PRN Anaphylaxis #1 ea 01/18/20 albuterol sulfate 2.5 mg/3 mL (0.083 %) solution for nebulization 2.5 mg (3 mL) inhalation Q2H PRN PRN dyspnea, wheezing #180 mL 04/24/20 albuterol sulfate 90 mcg/actuation aerosol inhaler 2 inh inhalation Q4H PRN PRN Sob &/Or Wheezing #18 grams 04/24/20 montelukast 10 mg tablet 10 mg PO DAILY allergies/asthma #30 tabs 12/07/20 alendronate 70 mg tablet 70 mg PO WE bone health 12/21/20 nystatin 100,000 unit/gram topical powder 1 applic topical BID PRN PRN YEAST 12/21/20 ondansetron 4 mg disintegrating tablet 4 mg PO Q8H PRN Nausea 12/21/20 beclomethasone dipropionate 80 mcg/actuation HFA breath activated aerosol 1 inh inhalation BID Asthma 03/22/21 budesonide-formoterol HFA 160 mcg-4.5 mcg/actuation aerosol inhaler 2 puff inhalation BID asthma 03/22/21 furosemide 40 mg tablet 40 mg PO MOWEFR diuresis 03/22/21 ipratropium 0.5 mg-albuterol 3 mg (2.5 mg base)/3 mL nebulization soln 3 ml inhalation BID asthma 03/22/21 tizanidine 4 mg capsule 4 mg PO Q8H PRN muscle relaxer 03/22/21 cyanocobalamin (vitamin B-12) 100 mcg tablet (Vitamin B-12) 100 mcg PO DAILY supplement 04/05/21 melatonin 10 mg tablet 12 mg PO QHS sleep 04/05/21 pregabalin 150 mg capsule 150 mg PO TID nerve pain 04/05/21 diltiazem HCl 240 mg capsule,extended release 24 hr 240 mg PO DAILY BP 04/06/21 meclizine 25 mg tablet 25 mg PO DAILY PRN Vertigo 05/04/21 docusate sodium 100 mg capsule 100 mg PO DAILY stool softener 08/17/21 magnesium 250 mg tablet 400 mg PO DAILY supplement 08/17/21 L.acidophil-L.casei-B.bifid-B.longum-FOS 2 billion cell-50 mg capsule (Probiotic Blend) 1 cap PO DAILY supplement 11/07/21 ascorbate calcium (vitamin C) 500 mg tablet 1 g PO DAILY vitamin 11/07/21 chromium picolinate 200 mcg tablet 200 mcg PO DAILY supplement 11/07/21 clobetasol 0.05 % topical cream 1 applic topical PRN PRN RASH/ITCHING 11/07/21 coconut oil 1,000 mg capsule 1,000 mg PO DAILY supplement 11/07/21 cyclobenzaprine 5 mg tablet 10 mg PO Q8H PRN MUSCLE CRAMPING 11/07/21 levocetirizine 5 mg tablet 5 mg PO DAILY allergies 11/07/21 vitamin K2 45 mcg capsule 100 mcg PO DAILY vitamin 11/07/21 dapagliflozin propanediol 10 mg tablet (Farxiga) 10 mg PO DAILY diabetes 08/11/22 moexipril 15 mg tablet 15 mg PO DAILY blood pressure 08/11/22 pitavastatin calcium 4 mg tablet (Livalo) 4 mg PO DAILY cholesterol 08/11/22 multivitamin (Daily Multi-Vitamin tablet) 1 tab PO DAILY vag itching 06/12/23 omeprazole 40 mg capsule,delayed release 40 mg PO BID gerd 06/12/23 quercetin 500 mg capsule 500 mg PO DAILY supplement 06/12/23 semaglutide 1 mg/dose (4 mg/3 mL) subcutaneous pen injector (Ozempic) 1 mg subcut ECHEVARRIA diabetes 06/12/23 tiotropium bromide 18 mcg capsule with inhalation device 1 cap inhalation DAILY 06/12/23 erenumab-aooe 70 mg/mL subcutaneous auto-injector (Aimovig Autoinjector) 70 mg subcut QMONTH #1 mL 06/13/23 rizatriptan 10 mg tablet (Maxalt) 10 mg PO Q2H PRN migraine headache #10 tabs 06/13/23 acetaminophen 500 mg tablet 1,000 mg PO Q8 PRN pain 08/25/23 azelastine-fluticasone 137 mcg-50 mcg/spray nasal spray 2 spray intranasal BID allergy 08/25/23 cholecalciferol (vitamin D3) 125 mcg (5,000 unit) tablet (Vitamin D3) 125 mcg PO DAILY vitamin-self care 08/25/23 insulin lispro 100 unit/mL subcutaneous pen (Humalog KwikPen (U-100) Insulin) See Protocol subcut ACHS PRN high blood sugar 08/25/23 bisacodyl 10 mg rectal suppository 10 mg ND DAILY #0 ea 09/03/23 hydrocortisone acetate 25 mg rectal suppository 25 mg ND BID #60 ea 09/03/23 polyethylene glycol 3350 17 gram oral powder packet 17 g PO BID self care #0 ea 09/03/23 sennosides 8.6 mg tablet (senna) 17.2 mg (2 x 8.6 mg) PO BID stool softner #120 tabs 09/03/23 tramadol 50 mg tablet 50 mg PO Q8H PRN pain #45 tabs 09/24/23 estradiol 0.01% (0.1 mg/gram) vaginal cream vaginal 09/25/23 levofloxacin 750 mg tablet 750 mg PO DAILY URI 09/28/23 prednisone 10 mg tablet See Rx Instructions PO .COMPLEX URI 09/28/23 prednisone 20 mg tablet See Rx Instructions PO .COMPLEX URI 09/28/23 diltiazem HCl 120 mg capsule,extended release 24 hr (Cardizem CD) 120 mg PO DAILY high blood pressure 09/29/23 insulin glargine U-300 conc 300 unit/mL (1.5 mL) subcutaneous pen (Toujeo SoloStar U-300 Insulin) 50 unit subcut BID DIABETES 09/29/23 ondansetron 4 mg disintegrating tablet 4 mg PO DAILY PRN nausea 09/29/23
--- NOTE | 2023-09-29 14:24 | CHAPLAIN ---
Type of Pastoral Visit _x__ Initial Visit ___ Follow-up Visit ___ On-call Visit ___ General Patient Visit ___ Spiritual Assessment ___ Family Conference ___ Bereavement ___ Rapid Response ___ Code Blue ___ Other (describe below) Pastoral Care Referral From _x__ Patient ___ Family ___ Nurse ___ Physician ___ Plant Supervisor ___ Mail Opener ___ Other (describe below) Sacrament/Intervention _x__ Active listening ___ Anointing ___ Gnosticist ___ Bereavement ___ Communion ___ Cathi exploration ___ _x__ Life review _x__ Prayer ___ Reconciliation ___ Sacrament of Sick _x__ Supportive presence ___ Wedding ___ Other (describe below) Pastoral Comments updates given by the patient who was recently in the hospital; patient is concerned about how this ongoing issue will be resolved and how soon she will receive decisions; pt daughter is out of the country on vacation at this time and she doesn't have her normal support; pt expresses her worries and her hopes; pt welcomes someone to talk with and for prayer; pt expresses thankfulness for the presence and support
--- NOTE | 2023-09-29 16:11 | EX.PCM.CON.G ---
HPI Consult Data Date of Consult: 09/29/23 HPI Narrative Reason for Consultation: Abdominal pain and possible GI bleed HPI Narrative: NATHALIE HERMAN, is a known to GI service 62-year-old female who presented to [facility] ED on 09/29/2023 with bright red blood per rectum. She was recently discharged after being in the hospital for abdominal pain and intermittent rectal bleed. She came back came to ED for rectal bleed for last 2 days. She stated it started yesterday with about 2-3 small volume blood bright red with mainly wiping on the tissue paper but in ED today she had 3 large volume bright red blood which filled up the toilet bowl. Patient is also on warfarin for history of recurrent PE and multiple DVT. Her INR was elevated 5.5 and vitamin K 5 mg IV given. She also complained of right-sided abdominal pain ongoing for about 3 weeks constant in nature deep inside about 4-5/10 intensity without any precipitating exacerbating or relieving factor. She denies fever or chills. She had last colonoscopy August 2023 which showed diverticulosis and bleeding external/internal hemorrhoid which was banded and described in detail in assessment plan. This right side abdominal pain has been going on for the past year. She was told that it was secondary to her back and it would get better if she lost a significant amount of weight. She lost almost 100 pounds and is down to 230 pounds from 310 pounds. She had a CT scan abdomen pelvis today and it did not show any acute abnormalities. It looks the same as her last 2 CT scans that she has had in the last 3 months. She was seen in the office recently and indicated that she is going through a lot of personal issues and she was not sure if that was contributing to her abdominal pain. I put her on dicyclomine scheduled. She said it helped but it did not take away to playing completely. FORMERLY [facility], [facility] Medical History Anxiety Arthritis Asthma Atherosclerotic heart disease of [place] coronary artery without angina pectoris Back pain Back pain with sciatica Bilateral carotid bruits BiPAP (biphasic positive airway pressure) dependence Body mass index 45.0-49.9, adult Cardiology follow-up encounter Carotid artery disease COPD (chronic obstructive pulmonary disease) COVID-19 Depression Diabetes Diastolic heart failure Discoloration of skin Easy bruising Essential hypertension Excessive bleeding High cholesterol History of DVT (deep vein thrombosis) History of echocardiogram History of edema History of pain when walking History of pulmonary embolism History of steroid therapy History of stress test History of transcatheter aortic valve replacement (TAVR) (~04/19/21) Hx of transesophageal echocardiography (YOLANDA) for monitoring Insulin dependent diabetes mellitus Leg cramps Migraine headache Morbid obesity Non-smoker Nonrheumatic aortic (valve) stenosis On home oxygen therapy CHELSEY treated with BiPAP Peripheral neuropathy Personal history of anaphylaxis Positive FIT (fecal immunochemical test) Pulmonary embolism Restless legs Rotator cuff arthropathy of right shoulder Shortness of breath on exertion Subtherapeutic international normalized ratio (INR) TIA (transient ischemic attack) Type 2 diabetes mellitus Home Medications fluoxetine 20 mg capsule 40 mg PO DAILY anxiety 01/26/14 [History Last Taken 04/05/21] potassium chloride 10 mEq tablet,extended release(part/cryst) 20 meq PO BID Potassium Chloride 01/06/16 [History Last Taken 08/11/22] Ca 600 mg-D3 800 unit-magnes 40 vs-dyvc-nxj-angel-boron chewable tablet 1 ea PO DAILY vitamins 05/27/16 [History Last Taken 04/05/21] fenofibrate nanocrystallized 145 mg tablet 72.5 mg PO QHS cholesterol 04/26/19 [History Last Taken 04/04/21] trazodone 50 mg tablet 50 mg PO QHS sleep 08/09/19 [History Last Taken 04/04/21] epinephrine 0.3 mg/0.3 mL injection, auto-injector 0.3 mg (0.3 mL) IM X1 PRN Anaphylaxis #1 ea 01/18/20 [Rx Last Taken Unknown] albuterol sulfate 2.5 mg/3 mL (0.083 %) solution for nebulization 2.5 mg (3 mL) inhalation Q2H PRN PRN dyspnea, wheezing #180 mL 04/24/20 [Rx Last Taken 07/02/21 09:00] albuterol sulfate 90 mcg/actuation aerosol inhaler 2 inh inhalation Q4H PRN PRN Sob &/Or Wheezing #18 grams 04/24/20 [Rx Last Taken 04/29/22] montelukast 10 mg tablet 10 mg PO DAILY allergies/asthma #30 tabs 12/07/20 [Rx Last Taken 04/05/21] alendronate 70 mg tablet 70 mg PO WE bone health 12/21/20 [History Last Taken 08/07/22] nystatin 100,000 unit/gram topical powder 1 applic topical BID PRN PRN YEAST 12/21/20 [History Last Taken 04/05/21] ondansetron 4 mg disintegrating tablet 4 mg PO Q8H PRN Nausea 12/21/20 [History Last Taken Unknown] beclomethasone dipropionate 80 mcg/actuation HFA breath activated aerosol 1 inh inhalation BID Asthma 03/22/21 [History Last Taken 07/02/21 09:00] budesonide-formoterol HFA 160 mcg-4.5 mcg/actuation aerosol inhaler 2 puff inhalation BID asthma 03/22/21 [History Last Taken 04/29/22] furosemide 40 mg tablet 40 mg PO MOWEFR diuresis 03/22/21 [History Last Taken 04/05/21] ipratropium 0.5 mg-albuterol 3 mg (2.5 mg base)/3 mL nebulization soln 3 ml inhalation BID asthma 03/22/21 [History Last Taken 04/05/21] tizanidine 4 mg capsule 4 mg PO Q8H PRN muscle relaxer 03/22/21 [History Last Taken 02/10/23] cyanocobalamin (vitamin B-12) 100 mcg tablet (Vitamin B-12) 100 mcg PO DAILY supplement 04/05/21 [History Last Taken 04/05/21] melatonin 10 mg tablet 12 mg PO QHS sleep 04/05/21 [History Last Taken 04/04/21] pregabalin 150 mg capsule 150 mg PO TID nerve pain 04/05/21 [History Last Taken 08/11/22] diltiazem HCl 240 mg capsule,extended release 24 hr 240 mg PO DAILY BP 04/06/21 [History Last Taken 07/02/21 09:00] meclizine 25 mg tablet 25 mg PO DAILY PRN Vertigo 05/04/21 [History Last Taken Unknown] docusate sodium 100 mg capsule 100 mg PO DAILY stool softener 08/17/21 [History Last Taken Unknown] magnesium 250 mg tablet 400 mg PO DAILY supplement 08/17/21 [History Last Taken Unknown] L.acidophil-L.casei-B.bifid-B.longum-FOS 2 billion cell-50 mg capsule (Probiotic Blend) 1 cap PO DAILY supplement 11/07/21 [History Last Taken Unknown] ascorbate calcium (vitamin C) 500 mg tablet 1 g PO DAILY vitamin 11/07/21 [History Last Taken 09/29/23] chromium picolinate 200 mcg tablet 200 mcg PO DAILY supplement 11/07/21 [History Last Taken Unknown] clobetasol 0.05 % topical cream 1 applic topical PRN PRN RASH/ITCHING 11/07/21 [History Last Taken Unknown] coconut oil 1,000 mg capsule 1,000 mg PO DAILY supplement 11/07/21 [History Last Taken Unknown] cyclobenzaprine 5 mg tablet 10 mg PO Q8H PRN MUSCLE CRAMPING 11/07/21 [History Last Taken 08/11/22] levocetirizine 5 mg tablet 5 mg PO DAILY allergies 11/07/21 [History Last Taken Unknown] vitamin K2 45 mcg capsule 100 mcg PO DAILY vitamin 11/07/21 [History Last Taken Unknown] dapagliflozin propanediol 10 mg tablet (Farxiga) 10 mg PO DAILY diabetes 08/11/22 [History Last Taken 08/11/22] moexipril 15 mg tablet 15 mg PO DAILY blood pressure 08/11/22 [History Last Taken Unknown] pitavastatin calcium 4 mg tablet (Livalo) 4 mg PO DAILY cholesterol 08/11/22 [History Last Taken Unknown] multivitamin (Daily Multi-Vitamin tablet) 1 tab PO DAILY vag itching 06/12/23 [History Last Taken Unknown] omeprazole 40 mg capsule,delayed release 40 mg PO BID gerd 06/12/23 [History Last Taken Unknown] quercetin 500 mg capsule 500 mg PO DAILY supplement 06/12/23 [History Last Taken Unknown] semaglutide 1 mg/dose (4 mg/3 mL) subcutaneous pen injector (Ozempic) 1 mg subcut ECHEVARRIA diabetes 06/12/23 [History Last Taken Unknown] tiotropium bromide 18 mcg capsule with inhalation device 18 mcg inhalation DAILY asthma 06/12/23 [History Last Taken Unknown] erenumab-aooe 70 mg/mL subcutaneous auto-injector (Aimovig Autoinjector) 70 mg subcut QMONTH ordered #1 mL 06/13/23 [Rx Last Taken Unknown] rizatriptan 10 mg tablet (Maxalt) 10 mg PO Q2H PRN migraine headache #10 tabs 06/13/23 [Rx Last Taken Unknown] acetaminophen 500 mg tablet 1,000 mg PO Q8 PRN pain 08/25/23 [History Last Taken Unknown] azelastine-fluticasone 137 mcg-50 mcg/spray nasal spray 2 spray intranasal BID allergy 08/25/23 [History Last Taken Unknown] cholecalciferol (vitamin D3) 125 mcg (5,000 unit) tablet (Vitamin D3) 125 mcg PO DAILY vitamin-self care 08/25/23 [History Last Taken Unknown] polyethylene glycol 3350 17 gram oral powder packet 17 g PO BID self care #0 ea 09/03/23 [Rx Last Taken Unknown] sennosides 8.6 mg tablet (senna) 17.2 mg (2 x 8.6 mg) PO BID stool softner #120 tabs 09/03/23 [Rx Last Taken Unknown] levofloxacin 750 mg tablet 750 mg PO DAILY URI 09/28/23 [History Last Taken 09/28/23] prednisone 10 mg tablet See Rx Instructions PO .COMPLEX URI 09/28/23 [History Last Taken Unknown] prednisone 20 mg tablet See Rx Instructions PO .COMPLEX URI 09/28/23 [History Last Taken 09/28/23] Lactobacillus acidophilus (Acidophilus chewable tablet) 1 tab PO DAILY Supplement 09/29/23 [History Last Taken Unknown] Lipozene 1,500 mg PO 11XD Weight Loss 09/29/23 [History Last Taken Unknown] ascorbic acid (vitamin C) 500 mg capsule 500 mg PO QHS supplement 09/29/23 [History Last Taken Unknown] black seed oil 10,000 mg PO DAILY unknown 09/29/23 [History Last Taken Unknown] diltiazem HCl 120 mg capsule,extended release 24 hr (Cardizem CD) 120 mg PO DAILY high blood pressure 09/29/23 [History Last Taken Unknown] insulin glargine U-300 conc 300 unit/mL (1.5 mL) subcutaneous pen (Toujeo SoloStar U-300 Insulin) 50 unit subcut BID DIABETES 09/29/23 [History Last Taken Unknown] levofloxacin 750 mg tablet 750 mg PO DAILY bronchitis 09/29/23 [History Last Taken Unknown] ondansetron 4 mg disintegrating tablet 4 mg PO DAILY PRN nausea 09/29/23 [History Last Taken Unknown] oregano oil 1,500 mg capsule 15,000 mg PO DAILY supplement 09/29/23 [History Last Taken Unknown] oxycodone-acetaminophen 5 mg-325 mg tablet 1 tab PO BID pain 09/29/23 [History Last Taken Unknown] prednisone 20 mg tablet See Taper PO QODAY bronchitis 09/29/23 [History Last Taken Unknown] sennosides 8.6 mg-docusate sodium 50 mg tablet 2 tab-cap PO DAILY PRN constipation 09/29/23 [History Last Taken Unknown] zinc 100 mg tablet 100 mg PO DAILY supplement 09/29/23 [History Last Taken Unknown] Allergy/AdvReac Type Severity Reaction Status Date / Time clindamycin Allergy Rash Verified 09/25/23 15:29 erythromycin base Allergy Rash Verified 09/25/23 15:29 [Erythromycin Base] omalizumab [From Xolair] Allergy Chest Verified 09/25/23 15:29 tightness Penicillins Allergy Rash Verified 09/25/23 15:29 sulfamethoxazole Allergy Chest Verified 09/25/23 15:29 [From Bactrim] tightness trimethoprim [From Bactrim] Allergy Chest Verified 09/25/23 15:29 tightness Sulfa (Sulfonamide AdvReac Unknown Unknown Verified 09/25/23 15:29 Antibiotics) Family History Father Heart disease Diabetes CAD (coronary artery disease) Mother CAD (coronary artery disease) CVA (cerebral vascular accident) Diabetes Brother CAD (coronary artery disease) CVA (cerebral vascular accident) Diabetes Unknown Cancer Grandmother CVA (cerebral vascular accident) Diabetes Grandfather CVA (cerebral vascular accident) Grandmother Myocardial infarction Brother Diabetes Sister Diabetes Surgical History Aortic valve replaced H/O lumbosacral spine surgery History of cardiac catheterization History of section History of hernia repair History of left heart catheterization (LHC) (~01/19/21) History of neck surgery History of rotator cuff surgery Hx of appendectomy Social History household members: spouse housing: apartment pets and animals: Yes Smoking Status: Never smoker second hand exposure: No alcohol intake: current alcohol intake frequency: a few times a week substance use type: does not use caffeine: No what type of physical activity do you participate in: none do you feel safe at home: Yes ROS ROS Narrative Constitutional: Reports fatigue and weakness. No fever. HEENT: Reports systems reviewed and no addt'l complaints, except as documented Respiratory/Chest: No acute shortness of breath or respiratory distress or wheezing. CVS: No acute chest pain pressure tightness Gastrointestinal: As described in HPI Genitourinary: Denies burning urination or new urinary tract symptoms Musculoskeletal: Denies acute joint pain or limited range of motion. Bilateral knee arthritis. No acute injury Spine: Chronic sciatica pain with back pain. History of back surgery Neurologic: Denies seizure-like symptoms. skin: No ulcer. No rash Endocrinology: Reports systems reviewed and no addt'l complaints, except as documented Hematologic/Lymphatic: Reports systems reviewed and no addt'l complaints, except as documented Rest 14 ROS are negative except as mentioned in HPI Physical Exam Narrative General: Alert, Oriented x3, Cooperative. Morbid obesity BMI 39.3 kg/m? HEENT: Atraumatic, PERRLA, EOMI, Normocephalic Oral: Oral mucosa dry. No Gingival or Mucosal Lesions/ Ulcerations Neck: Supple, No JVD, Negative Carotid Bruits Lungs: Air entry diminished in bilateral lung bases. No crepitation/rhonchi Cardiovascular: Regular rate, Regular Rhythm, Normal S1, Normal S2, status post TAVR, aortic valve sound. Abdomen: Bowel Sounds Present, Soft, tenderness present over right flank and iliac region. Mild gaseous distention. : No renal angle tenderness. No suprapubic tenderness. Extremities: Mild edema edema, Capillary Refill Less than 3 Seconds Skin: No rashes, No breakdown Musculoskeletal: No Tenderness to Palpation of Joints or Extremities. ROM restricted at knees and hip joints Spine: Status post back surgery. Chronic sciatica. Neurological: Cranial nerves II-XII grossly intact, DTR 2+/4. No acute focal neurological deficit. Psych/Mental Status: Normal Affect, Appropriate. Lab / Micro Data 09/29/23 05:50 09/29/23 05:50 Labs: Laboratory Results - last 24 hr 09/28/23 15:30: PT 50.7 H, INR 5.5 H*, Sodium 142, Potassium 3.6, Chloride 110 H, Carbon Dioxide 29.0, Anion Gap 3 L, BUN 9, Creatinine 0.42 L, Estim Creat Clear Calc 118.39, Est GFR (MDRD) Af Amer 198, Est GFR (MDRD) Non-Af 163, BUN/Creatinine Ratio 21.6 H, Glucose 78, Lactic Acid 1.5, Calcium 8.0 L, Magnesium 2.2, Total Bilirubin 0.20, Direct Bilirubin 0.07, AST 23, ALT 28, Alkaline Phosphatase 53, Troponin I High Sens 10, Total Protein 5.5 L, Albumin 2.8 L, Globulin 2.7, Lipase 46, Blood Type B POSITIVE, Antibody Screen NEGATIVE 09/28/23 19:04: Hgb 12.6, Hct 40.3 09/29/23 00:25: POC Glucose 73 L 09/29/23 00:40: Hgb 13.1, Hct 41.4 09/29/23 05:50: WBC 8.4, RBC 4.68, Hgb 13.3, Hct 43.4, MCV 92.7, MCH 28.4, MCHC 30.6 L, RDW Std Deviation 48.8 H, RDW Coeff of Carmencita 14.5, Plt Count 266, MPV 10.4, Immature Gran % (Auto) 0.800, Neut % (Auto) 57.0, Lymph % (Auto) 33.3, [place] % (Auto) 6.4, Eos % (Auto) 1.4, Baso % (Auto) 1.1 H, Absolute Neuts (auto) 4.8, Absolute Lymphs (auto) 2.81, Nucleated RBC % 0, PT 24.2 H, INR 2.1, Sodium 143, Potassium 3.7, Chloride 108 H, Carbon Dioxide 28.0, Anion Gap 7, BUN 7, Creatinine 0.43 L, Estim Creat Clear Calc 115.64, Est GFR (MDRD) Af Amer 190, Est GFR (MDRD) Non-Af 157, BUN/Creatinine Ratio 16.3, Glucose 79, Calcium 8.1 L 09/29/23 06:34: POC Glucose 77 09/29/23 11:33: POC Glucose 104 Micro: Microbiology 09/28/23 22:35 Stool C. difficile DNA Amplification - Final 09/28/23 22:35 Stool Stool Lactoferrin - Final Imagaing Radiology Impression Abdomen/Pelvis CT 09/28/23 20:32 IMPRESSION: No acute abnormality. Electronically Signed: Luis Alexis MD at 0:03 EST , Assessment & Plan Assessment/Plan (1) Acute lower GI bleeding: (2) Elevated INR: PLAN: Plan Patient is a 62-year-old female who presented to [facility] ED on 09/29/2023 with bright red blood per rectum. Acute on recurrent lower GI bleed: Patient has known history of diverticulosis, internal and external hemorrhoids along with anal fissures. . Last colonoscopy in August 2023 shows bleeding external/internal hemorrhoids that were banded, diverticulosis in the rectosigmoid, sigmoid and descending colon. Hemodynamically blood pressure and heart rate in normal range. H&H 12.6/40%. No leukocytosis. Platelet count normal. GI consulted. Full liquid diet. Right-sided abdominal pain, possibility of right-sided colitis:CT abdomen with oral and IV contrast did not show any abnormalities. I told her that her symptoms could be coming from her back. She is not having any diarrhea and is having more constipation which also can contribute to her abdominal pain. There is low suspicion any acute on chronic colitis at this time. I recommended continue Bentyl therapy along with MiraLAX on a daily basis. She can be DC'd to home with outpatient follow-up. Charges/Coding Visit Charges Inpatient E&M: 91457 Subs Hosp L3
--- NOTE | 2023-09-29 16:14 | PN.HOSP_ITS ---
Reason for Visit Reason for Visit: Diagnoses Gastrointestinal hemorrhage, unspecified (09/28/23) Abnormal coagulation profile (09/28/23) Objective Data Objective Data Vital Signs: Vital Signs Temp Pulse Resp BP Pulse Ox O2 Del Method O2 Flow Rate 96.9 F L 78 16 159/75 H 97 Room Air 2 09/29/23 15:18 09/29/23 15:18 09/29/23 15:18 09/29/23 15:18 09/29/23 15:18 09/29/23 15:18 09/29/23 01:00 Oxygen Flow Rate (L/min) 2 Oxygen Delivery Method Room Air Weight: 228 lb 13.437 oz Body Mass Index (BMI) 39.2 Intake & Output: Intake and Output for Last 24 Hours 09/28/23 09/29/23 09/30/23 03:59 03:59 03:59 Intake Total 2090.5 / 2090.5 1530 / 1530 Balance 2090.5 / 2090.5 1530 / 1530 Lab / Micro Data 09/29/23 05:50 09/29/23 05:50 Labs: Laboratory Results - last 24 hr 09/28/23 15:30: PT 50.7 H, INR 5.5 H*, Sodium 142, Potassium 3.6, Chloride 110 H , Carbon Dioxide 29.0, Anion Gap 3 L, BUN 9, Creatinine 0.42 L, Estim Creat Clear Calc 118.39, Est GFR (MDRD) Af Amer 198, Est GFR (MDRD) Non-Af 163, BUN/Creatinine Ratio 21.6 H, Glucose 78, Lactic Acid 1.5, Calcium 8.0 L, Magnesium 2.2, Total Bilirubin 0.20, Direct Bilirubin 0.07, AST 23, ALT 28, Alkaline Phosphatase 53, Troponin I High Sens 10, Total Protein 5.5 L, Albumin 2.8 L, Globulin 2.7, Lipase 46, Blood Type B POSITIVE, Antibody Screen NEGATIVE 09/28/23 19:04: Hgb 12.6, Hct 40.3 09/29/23 00:25: POC Glucose 73 L 09/29/23 00:40: Hgb 13.1, Hct 41.4 09/29/23 05:50: WBC 8.4, RBC 4.68, Hgb 13.3, Hct 43.4, MCV 92.7, MCH 28.4, MCHC 30.6 L, RDW Std Deviation 48.8 H, RDW Coeff of Carmencita 14.5, Plt Count 266, MPV 10.4, Immature Gran % (Auto) 0.800, Neut % (Auto) 57.0, Lymph % (Auto) 33.3, [place] % (Auto) 6.4, Eos % (Auto) 1.4, Baso % (Auto) 1.1 H, Absolute Neuts (auto) 4.8, Absolute Lymphs (auto) 2.81, Nucleated RBC % 0, PT 24.2 H, INR 2.1, Sodium 143, Potassium 3.7, Chloride 108 H, Carbon Dioxide 28.0, Anion Gap 7, BUN 7, Creatinine 0.43 L, Estim Creat Clear Calc 115.64, Est GFR (MDRD) Af Amer 190, Est GFR (MDRD) Non-Af 157, BUN/Creatinine Ratio 16.3, Glucose 79, Calcium 8.1 L 09/29/23 06:34: POC Glucose 77 09/29/23 11:33: POC Glucose 104 Micro: Microbiology 09/28/23 22:35 Stool C. difficile DNA Amplification - Final 09/28/23 22:35 Stool Stool Lactoferrin - Final Radiography Diagnostic Testing: Radiology Impression Abdomen/Pelvis CT 09/28/23 20:32 IMPRESSION: No acute abnormality. Electronically Signed: Luis Alexis MD at 0:03 EST ,
--- NOTE | 2023-09-29 17:09 | DS.PCM_ITS ---
Providers Date of Admission: 09/28/23 Primary Care Physician: Dr. Ophelia Soria, Consultations 09/28/23 18:32 Consult: Gastroenterology Routine Consulting Provider: [facility] Reason for Consult: GI bleed EMERGENT Consult: No MD Notified: Yes Date Notified: 09/28/23 Time Notified: 17:35 Method of Notification: ED Physician Initiated Reason For Visit: GI BLEED, RECTAL BLEED Diagnosis Discharge Diagnosis (1) Acute lower GI bleeding: Status: Resolved Code(s): K92.2 - Gastrointestinal hemorrhage, unspecified (2) Elevated INR: Status: Acute Code(s): R79.1 - Abnormal coagulation profile Medications at Discharge Home Medications fluoxetine 20 mg capsule 40 mg PO DAILY anxiety 01/26/14 potassium chloride 10 mEq tablet,extended release(part/cryst) 20 meq PO BID Potassium Chloride 01/06/16 Ca 600 mg-D3 800 unit-magnes 40 wo-dcbh-qqj-angel-boron chewable tablet 1 ea PO DAILY vitamins 05/27/16 fenofibrate nanocrystallized 145 mg tablet 72.5 mg PO QHS cholesterol 04/26/19 trazodone 50 mg tablet 50 mg PO QHS sleep 08/09/19 epinephrine 0.3 mg/0.3 mL injection, auto-injector 0.3 mg (0.3 mL) IM X1 PRN Anaphylaxis #1 ea 01/18/20 albuterol sulfate 2.5 mg/3 mL (0.083 %) solution for nebulization 2.5 mg (3 mL) inhalation Q2H PRN PRN dyspnea, wheezing #180 mL 04/24/20 albuterol sulfate 90 mcg/actuation aerosol inhaler 2 inh inhalation Q4H PRN PRN Sob &/Or Wheezing #18 grams 04/24/20 montelukast 10 mg tablet 10 mg PO DAILY allergies/asthma #30 tabs 12/07/20 alendronate 70 mg tablet 70 mg PO WE Keystok 12/21/20 nystatin 100,000 unit/gram topical powder 1 applic topical BID PRN PRN YEAST 12/21/20 ondansetron 4 mg disintegrating tablet 4 mg PO Q8H PRN Nausea 12/21/20 beclomethasone dipropionate 80 mcg/actuation HFA breath activated aerosol 1 inh inhalation BID Asthma 03/22/21 budesonide-formoterol HFA 160 mcg-4.5 mcg/actuation aerosol inhaler 2 puff inhalation BID asthma 03/22/21 furosemide 40 mg tablet 40 mg PO MOWEFR diuresis 03/22/21 ipratropium 0.5 mg-albuterol 3 mg (2.5 mg base)/3 mL nebulization soln 3 ml inhalation BID asthma 03/22/21 tizanidine 4 mg capsule 4 mg PO Q8H PRN muscle relaxer 03/22/21 cyanocobalamin (vitamin B-12) 100 mcg tablet (Vitamin B-12) 100 mcg PO DAILY supplement 04/05/21 melatonin 10 mg tablet 12 mg PO QHS sleep 04/05/21 pregabalin 150 mg capsule 150 mg PO TID nerve pain 04/05/21 diltiazem HCl 240 mg capsule,extended release 24 hr 240 mg PO DAILY BP 04/06/21 meclizine 25 mg tablet 25 mg PO DAILY PRN Vertigo 05/04/21 docusate sodium 100 mg capsule 100 mg PO DAILY stool softener 08/17/21 magnesium 250 mg tablet 400 mg PO DAILY supplement 08/17/21 L.acidophil-L.casei-B.bifid-B.longum-FOS 2 billion cell-50 mg capsule (Probiotic Blend) 1 cap PO DAILY supplement 11/07/21 ascorbate calcium (vitamin C) 500 mg tablet 1 g PO DAILY vitamin 11/07/21 chromium picolinate 200 mcg tablet 200 mcg PO DAILY supplement 11/07/21 clobetasol 0.05 % topical cream 1 applic topical PRN PRN RASH/ITCHING 11/07/21 coconut oil 1,000 mg capsule 1,000 mg PO DAILY supplement 11/07/21 cyclobenzaprine 5 mg tablet 10 mg PO Q8H PRN MUSCLE CRAMPING 11/07/21 levocetirizine 5 mg tablet 5 mg PO DAILY allergies 11/07/21 vitamin K2 45 mcg capsule 100 mcg PO DAILY vitamin 11/07/21 dapagliflozin propanediol 10 mg tablet (Farxiga) 10 mg PO DAILY diabetes 08/11/22 moexipril 15 mg tablet 15 mg PO DAILY blood pressure 08/11/22 pitavastatin calcium 4 mg tablet (Livalo) 4 mg PO DAILY cholesterol 08/11/22 multivitamin (Daily Multi-Vitamin tablet) 1 tab PO DAILY vag itching 06/12/23 omeprazole 40 mg capsule,delayed release 40 mg PO BID gerd 06/12/23 quercetin 500 mg capsule 500 mg PO DAILY supplement 06/12/23 semaglutide 1 mg/dose (4 mg/3 mL) subcutaneous pen injector (Ozempic) 1 mg subcut ECHEVARRIA diabetes 06/12/23 tiotropium bromide 18 mcg capsule with inhalation device 18 mcg inhalation DAILY asthma 06/12/23 erenumab-aooe 70 mg/mL subcutaneous auto-injector (Aimovig Autoinjector) 70 mg subcut QMONTH ordered #1 mL 06/13/23 rizatriptan 10 mg tablet (Maxalt) 10 mg PO Q2H PRN migraine headache #10 tabs 06/13/23 acetaminophen 500 mg tablet 1,000 mg PO Q8 PRN pain 08/25/23 azelastine-fluticasone 137 mcg-50 mcg/spray nasal spray 2 spray intranasal BID allergy 08/25/23 cholecalciferol (vitamin D3) 125 mcg (5,000 unit) tablet (Vitamin D3) 125 mcg PO DAILY vitamin-self care 08/25/23 polyethylene glycol 3350 17 gram oral powder packet 17 g PO BID self care #0 ea 09/03/23 sennosides 8.6 mg tablet (senna) 17.2 mg (2 x 8.6 mg) PO BID stool softner #120 tabs 09/03/23 levofloxacin 750 mg tablet 750 mg PO DAILY URI 09/28/23 prednisone 10 mg tablet See Rx Instructions PO .COMPLEX URI 09/28/23 prednisone 20 mg tablet See Rx Instructions PO .COMPLEX URI 09/28/23 Lactobacillus acidophilus (Acidophilus chewable tablet) 1 tab PO DAILY Supplement 09/29/23 Lipozene 1,500 mg PO 11XD Weight Loss 09/29/23 ascorbic acid (vitamin C) 500 mg capsule 500 mg PO QHS supplement 09/29/23 black seed oil 10,000 mg PO DAILY unknown 09/29/23 diltiazem HCl 120 mg capsule,extended release 24 hr (Cardizem CD) 120 mg PO DAILY high blood pressure 09/29/23 insulin glargine U-300 conc 300 unit/mL (1.5 mL) subcutaneous pen (Toujeffrey SoloStar U-300 Insulin) 50 unit subcut BID DIABETES 09/29/23 levofloxacin 750 mg tablet 750 mg PO DAILY bronchitis 09/29/23 ondansetron 4 mg disintegrating tablet 4 mg PO DAILY PRN nausea 09/29/23 oregano oil 1,500 mg capsule 15,000 mg PO DAILY supplement 09/29/23 oxycodone-acetaminophen 5 mg-325 mg tablet 1 tab PO BID pain 09/29/23 prednisone 20 mg tablet See Taper PO QODAY bronchitis 09/29/23 sennosides 8.6 mg-docusate sodium 50 mg tablet 2 tab-cap PO DAILY PRN constipation 09/29/23 zinc 100 mg tablet 100 mg PO DAILY supplement 09/29/23 Hospital Course Operations None Procedures None Summary of Care Provided Minutes Spent on Discharge: 34 Hospital Course: Per HPI: NATHALIE HERMAN, is a 62 F with history of recent admission from 08 25- 09/03 for rectal bleed came to ED for rectal bleed for last 2 days. She stated it started yesterday with about 2-3 small volume blood bright red with mainly wiping on the tissue paper but in ED today she had 3 large volume bright red blood which filled up the toilet bowl. Patient is also on warfarin for history of recurrent PE and multiple DVT. Her INR was elevated 5.5 and vitamin K 5 mg IV given. She also complained of right-sided abdominal pain ongoing for about 3 weeks constant in nature deep inside about 4-5/10 intensity without any precipitating exacerbating or relieving factor. She denies fever or chills. She had last colonoscopy August 2023 which showed diverticulosis and bleeding external/internal hemorrhoid which was banded and described in detail in assessment plan. She also felt dizzy and lightheaded on standing up or walking but her vital did not show tachycardia or hypotension. Patient had IV fluid in ED, discussed with GI and further admitted. She did not had CT abdomen in ER. Hospital Course: 1. Bright red blood per rectum?59-year-old female who had a recent colonoscopy in August with diverticular bleeding presents to the hospital with bright red blood per rectum. She has a history of hemorrhoids as well and on this admission she was not anemic and her hemoglobin continue to improve while in the hospital without any blood transfusions. She also has chronic right-sided abdominal pain and the CT scan was negative for any type of inflammatory or infe ctious bowel disease. Her lactoferrin was positive but her C. difficile was negative and her enteric pathogen panel is pending, she denies any significant abdominal pain currently and has no fevers or chills. I discussed the case with gastroenterology who felt that given the improvement in her hemoglobin and the issues with her external hemorrhoids, discharge would be okay today with outpatient follow-up. I discussed with her the plan for discharge today she expressed understanding of the risk benefits of going home and is okay with going home today. 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 I do recommend she follow-up with vascular surgery as an outpatient for evaluation of a repeat placement of a [place] filter and if that is doable then have her follow-up with general surgery as an outpatient to get these hemorrhoids taken care of. I do recommend she follow-up with her PCP in 3 to 5 days to monitor her INR, she was given a dose of vitamin K because she was supratherapeutic to an INR of 5 now her INR is down to 2.1 today. She can resume her Coumadin on discharge as long as she obtains an INR and is monitored as an outpatient. 2. 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 Her home medications were continued where appropriate Physical Exam Narrative General: Alert, Oriented x3, Cooperative, No apparent distress HEENT: Atraumatic, PERRLA, EOMI, Normocephalic Oral: Moist Mucosa Neck: Supple, No JVD Lungs: Diminished, Normal air movement, No rhonchi, No wheeze, No rales Cardiovascular: Regular rate, Regular Rhythm, Normal S1, Normal S2, No murmurs Abdomen: Soft, Non Tender, Non-Distended, No Hepato-splenomegaly Extremities: Trace edema, Capillary Refill Less than 3 Seconds Skin: No rashes, No breakdown Musculoskeletal: No Tenderness to Palpation of Joints or Extremities Neurological: Cranial nerves II-XII grossly intact, Motor Exam 5/5 strength throughout, Sensory exam intact to light touch and pain Psych/Mental Status: Normal Affect, Appropriate Weight / BMI Weight Weight: 228 lb 13.437 oz Body Mass Index (BMI) 39.2 ABG / Lab / Microbiology Data 09/29/23 05:50 09/29/23 05:50 Laboratory: Laboratory Results - last 24 hr 09/28/23 15:30: Magnesium 2.2 09/28/23 19:04: Hgb 12.6, Hct 40.3 09/29/23 00:25: POC Glucose 73 L 09/29/23 00:40: Hgb 13.1, Hct 41.4 09/29/23 05:50: WBC 8.4, RBC 4.68, Hgb 13.3, Hct 43.4, MCV 92.7, MCH 28.4, MCHC 30.6 L, RDW Std Deviation 48.8 H, RDW Coeff of Carmencita 14.5, Plt Count 266, MPV 10.4, Immature Gran % (Auto) 0.800, Neut % (Auto) 57.0, Lymph % (Auto) 33.3, [place] % (Auto) 6.4, Eos % (Auto) 1.4, Baso % (Auto) 1.1 H, Absolute Neuts (auto) 4.8, Absolute Lymphs (auto) 2.81, Nucleated RBC % 0, PT 24.2 H, INR 2.1, Sodium 143, Potassium 3.7, Chloride 108 H, Carbon Dioxide 28.0, Anion Gap 7, BUN 7, Creatinine 0.43 L, Estim Creat Clear Calc 115.64, Est GFR (MDRD) Af Amer 190, Est GFR (MDRD) Non-Af 157, BUN/Creatinine Ratio 16.3, Glucose 79, Calcium 8.1 L 09/29/23 06:34: POC Glucose 77 09/29/23 11:33: POC Glucose 104 Microbiology: Microbiology 09/28/23 22:35 Stool C. difficile DNA Amplification - Final 09/28/23 22:35 Stool Stool Lactoferrin - Final Radiography Diagnostic Testing: Radiology Impression Abdomen/Pelvis CT 09/28/23 20:32 IMPRESSION: No acute abnormality. Electronically Signed: Luis Alexis MD at 0:03 EST , D/C Instructions Discharge Diet: Low fat / Low cholesterol and Carb Control Diet Call your doctor if you observe: Fever of 101 or Higher, Shortness of breath, Dizziness, Fainting spells, Swelling in the ankles, Chest pain and Increased palpitations (irregular heartbeat) Meaningful Use Info Meaningful Use Diagnoses (Choose all that apply): None applicable Discharge Plan Admission Admit Date/Time: 09/28/23 17:34 Attending Provider: Smith Reed Primary Care Provider: Ophelia Soria Consulting Providers: Ramiro Carey Instructions Additional Instructions / Restrictions: Hemoglobin is stable indicating that the bleeding is discontinued. Your INR is down to 2.1 today on the day of discharge. I would monitor this as an outpatient by her PCP and can resume warfarin at their discretion. Discharge Orders/Prescriptions Prescriptions: Continued trazodone 50 mg tablet 50 mg PO QHS albuterol sulfate 2.5 mg /3 mL (0.083 %) solution for nebulization 2.5 mg INHALATION Q2H PRN PRN (Reason: dyspnea, wheezing) Qty: 180 6RF albuterol sulfate 90 mcg/actuation HFA aerosol inhaler 2 inh INHALATION Q4H PRN PRN (Reason: Sob &/Or Wheezing) Qty: 18 6RF montelukast 10 mg tablet 10 mg PO DAILY Qty: 30 6RF alendronate 70 mg tablet 70 mg PO WE ondansetron 4 mg tablet,disintegrating 4 mg PO Q8H PRN (Reason: Nausea) nystatin 100,000 unit/gram powder 1 applic TOPICAL BID PRN PRN (Reason: YEAST) meclizine 25 mg tablet 25 mg PO DAILY PRN (Reason: Vertigo) magnesium 250 mg tablet 400 mg PO DAILY levocetirizine 5 mg tablet 5 mg PO DAILY cyclobenzaprine 5 mg tablet 10 mg PO Q8H PRN (Reason: MUSCLE CRAMPING) Patient Comments: I only take it when I absolutely have to...I am supposed to take it three times per day, but I take it prn...I makes me sleep for 6 hours and I didn't like that. clobetasol 0.05 % cream 1 applic topical PRN PRN (Reason: RASH/ITCHING) chromium picolinate 200 mcg tablet 200 mcg PO DAILY coconut oil 1,000 mg capsule 1,000 mg PO DAILY Probiotic Blend 2 billion cell-50 mg capsule 1 cap PO DAILY Rx Instructions: give with meal/snack ascorbate calcium (vitamin C) 500 mg tablet 1 g PO DAILY vitamin K2 45 mcg capsule 100 mcg PO DAILY fluoxetine 20 MG capsule 40 mg PO DAILY Patient Comments: Depression/anxiety potassium chloride 10 MEQ tablet 20 meq PO BID Patient Comments: Supplement docusate sodium 100 mg capsule 100 mg PO DAILY Patient Comments: Stool softner Ir-H1-udr-zlqk-fri-qjsu-boron 1 EACH tablet,chewable 1 ea PO DAILY fenofibrate nanocrystallized 145 MG tablet 72.5 mg PO QHS tizanidine 4 mg Capsule 4 mg PO Q8H PRN (Reason: muscle relaxer) Patient Comments: I only take this if I don't want to be knocked out for 6 hours from the cyclobenzaprine. I take one or the other, not both. furosemide 40 MG tablet 40 mg PO MOWEFR Patient Comments: Diuretic - water pill to remove extra fluid Rx Instructions: three times a week but twice a day MOWEFR ipratropium-albuterol 0.5 mg-3 mg(2.5 mg base)/3 mL solution for nebulization 3 ml INHALATION BID Rx Instructions: Continue until re-evaluation per pulmonary with possible transition back to home regimen at that time. budesonide-formoterol 160-4.5 mcg/actuation HFA aerosol inhaler 2 puff INHALATION BID beclomethasone dipropionate 80 mcg/actuation HFA aerosol breath activated 1 inh inhalation BID cyanocobalamin (vitamin B-12) [Vitamin B-12] 100 mcg Tablet 100 mcg PO DAILY pregabalin 150 mg capsule 150 mg PO TID melatonin 10 mg Tablet 12 mg PO QHS diltiazem HCl 240 mg capsule,extended release 24hr 240 mg PO DAILY moexipril 15 mg tablet 15 mg PO DAILY pitavastatin calcium [Livalo] 4 mg tablet 4 mg PO DAILY Farxiga 10 mg tablet 10 mg PO DAILY Ozempic 1 mg/dose (4 mg/3 mL) pen injector 1 mg subcut ECHEVARRIA omeprazole 40 mg capsule,delayed release(DR/EC) 40 mg PO BID tiotropium bromide 18 mcg capsule, w/inhalation device 18 mcg inhalation DAILY Rx Instructions: puncture 1 cap using device; one dose = 2 inhalations multivitamin [Daily Multi-Vitamin] Tablet 1 tab PO DAILY quercetin 500 mg capsule 500 mg PO DAILY rizatriptan [Maxalt] 10 mg tablet 10 mg PO Q2H PRN (Reason: migraine headache) Qty: 10 0RF Rx Instructions: do not exceed 3 doses per 24 hrs Aimovig Autoinjector 70 mg/mL auto-injector 70 mg subcut QMONTH Qty: 1 0RF Patient Comments: pt requeste to stop taking Rx Instructions: per patient's normal routine. cholecalciferol (vitamin D3) [Vitamin D3] 125 mcg (5,000 unit) tablet 125 mcg PO DAILY azelastine-fluticasone 137-50 mcg/spray spray,non-aerosol 2 spray intranasal BID Rx Instructions: administer into each nostril acetaminophen 500 mg Tablet 1,000 mg PO Q8 PRN (Reason: pain) polyethylene glycol 3350 17 gram Powder In Packet 17 g PO BID Qty: 0 0RF Rx Instructions: OTC sennosides [senna] 8.6 mg Tablet 17.2 mg PO BID Qty: 120 0RF Rx Instructions: OTC prednisone 20 mg tablet See Rx Instructions PO .COMPLEX Patient Comments: TAKE 1 TABLET BY MOUTH 2ITIMES A DAY FOR 3 DAYS, THEN 1 TABLET ONCE DAILY FOR 3 DAYS in combination with 10mg tablet to equal 30mg x 3 days. pt states she just finished her 40mg doses today Rx Instructions: orally; TAKE 1 TABLET BY MOUTH 2ITIMES A DAY FOR 3 DAYS, THEN 1 TABLET ONCE DAILY FOR 3 DAYS in combination with 10mg tablet to equal 30mg x 3 days levofloxacin 750 mg tablet 750 mg PO DAILY Patient Comments: pt has taken three days of her 10 day course Rx Instructions: x 10 days prednisone 10 mg tablet See Rx Instructions PO .COMPLEX Patient Comments: pt has not started 30mg daily dose yet Rx Instructions: orally pt is to take two 20mg tabs daily x3 days, then one 20mg tablet in combination with 10mg tablet, to equal 30mg x 3 more days; Hazel Garcia U-300 Insulin 300 unit/mL (1.5 mL) insulin pen 50 unit SUBCUT BID Patient Comments: INJECT 56 [id number] JUNIOR Rx Instructions: TOUJEO diltiazem HCl [Cardizem CD] 120 mg capsule,extended release 24hr 120 mg PO DAILY Patient Comments: as directed by doctor ondansetron 4 mg tablet,disintegrating 4 mg PO DAILY PRN (Reason: nausea) epinephrine 0.3 mg/0.3 mL auto-injector 0.3 mg IM X1 PRN (Reason: Anaphylaxis) Qty: 1 0RF No Action oxycodone-acetaminophen 5-325 mg tablet 1 tab PO BID Lipozene 1,500 mg PO 11XD sennosides-docusate sodium 8.6-50 mg tablet 2 tab-cap PO DAILY PRN (Reason: constipation) black seed oil 10,000 mg PO DAILY oregano oil 1,500 mg capsule 15,000 mg PO DAILY Acidophilus Tablet,Chewable 1 tab PO DAILY Patient Comments: 175 mg tab ascorbic acid (vitamin C) 500 mg capsule 500 mg PO QHS zinc 100 mg tablet 100 mg PO DAILY levofloxacin 750 mg tablet 750 mg PO DAILY prednisone 20 mg tablet See Taper PO QODAY Taper: Prednisone Taper 40 mg WITH BREAKFAST for 3 Days 20 mg WITH BREAKFAST for 3 Days 10 mg WITH BREAKFAST for 3 Days Patient Comments: pt on first day of 20 mg Referrals / Follow Up: David Ayon MD [Med Staff - Active Staff] - (For evaluation of placement of IVC filter) Ophelia Soria DO [Primary Care Provider] - 10/16/23 10:45 am Disposition Disposition (needs filled in before D/C Order can be placed): Home Health Service Charges/Coding Visit Charges Inpatient E&M: 78979 Disch Hosp >30min
[2023-09-29 18:29] LABS: Bedside Glucose 111 mg/dL (74-106)
[2023-09-30 16:10] LABS: Giardia Lamblia, Stool EIA Negative (Negative)
== END 2023-09-29 17:54 | disposition home health service (06) | DRG 393 ==
LOC: ED 15:28 → PCU 17:56
PROVIDERS: Admitting Provider Internal Medicine; Emergency Provider Student in an Organized Health Care Education/Training Program; PCP Internal Medicine; Visit Provider Family Medicine
DX: K64.8 Other hemorrhoids (principal); K57.31 Diverticulosis of large intestine without perforation or abscess with bleeding; I50.32 Chronic diastolic (congestive) heart failure; I11.0 Hypertensive heart disease with heart failure; E11.42 Type 2 diabetes mellitus with diabetic polyneuropathy; J44.9 Chronic obstructive pulmonary disease, unspecified; E66.01 Morbid (severe) obesity due to excess calories; Z79.4 Long term (current) use of insulin; K64.4 Residual hemorrhoidal skin tags; I25.10 Atherosclerotic heart disease of native coronary artery without angina pectoris; E78.00 Pure hypercholesterolemia, unspecified; G47.33 Obstructive sleep apnea (adult) (pediatric); K21.9 Gastro-esophageal reflux disease without esophagitis; Z95.2 Presence of prosthetic heart valve; M81.0 Age-related osteoporosis without current pathological fracture; G47.00 Insomnia, unspecified; R79.1 Abnormal coagulation profile; R29.6 Repeated falls; R10.31 Right lower quadrant pain; G89.29 Other chronic pain; Z90.49 Acquired absence of other specified parts of digestive tract; Z68.39 Body mass index [BMI] 39.0-39.9, adult; Z79.01 Long term (current) use of anticoagulants; Z79.83 Long term (current) use of bisphosphonates; Z79.84 Long term (current) use of oral hypoglycemic drugs; Z79.899 Other long term (current) drug therapy; Z86.711 Personal history of pulmonary embolism; Z86.718 Personal history of other venous thrombosis and embolism; Z86.16 Personal history of COVID-19; Z86.73 Personal history of transient ischemic attack (TIA), and cerebral infarction without residual deficits
CPT/HCPCS: 36415; 70450; 74177; 80048; 80053; 80076; 82962; 83605; 83630; 83690; 83735; 84484; 85014; 85018; 85025; 85610; 85730; 86850; 86900; 86901; 87329; 87493; 87506; 93005; 94640; 94668; 96361; 96374; 96375; 96376; 97166; 99283; 99284; J7030; J7040; J7120; Q9967; A4216; J0744; J2405; J3490

== ENCOUNTER 2023-10-08 09:33 | Outpatient (RCR) | payer MEDICARE, MEDICAID, SELFPAY ==
[2021-09-03 12:59] VITALS: BMI 43.4
== END 2023-10-12 18:00 | disposition home or self-care (01) ==
LOC: LAB 09:33
PROVIDERS: PCP Internal Medicine; Referring Provider Internal Medicine; Visit Provider Internal Medicine
DX: I82.409 Acute embolism and thrombosis of unspecified deep veins of unspecified lower extremity (principal); Z79.01 Long term (current) use of anticoagulants
CPT/HCPCS: 36415; 85610

== ENCOUNTER → 2023-10-30 | Outpatient (CLI) | payer MEDICARE, MEDICAID, SELFPAY ==
[2021-09-03 12:59] VITALS: BMI 43.4
== END | disposition home or self-care (01) ==
LOC: LABSPEC 15:02
PROVIDERS: PCP Internal Medicine; Referring Provider Internal Medicine; Visit Provider Internal Medicine
DX: Z79.01 Long term (current) use of anticoagulants (principal)
CPT/HCPCS: 85610

== ENCOUNTER 2023-11-20 13:20 | Outpatient (RCR) | payer MEDICARE, MEDICAID, SELFPAY ==
[2021-09-03 12:59] VITALS: BMI 43.4
== END 2023-12-11 18:00 | disposition home or self-care (01) ==
LOC: LAB 13:20
PROVIDERS: PCP Internal Medicine; Referring Provider Internal Medicine; Visit Provider Internal Medicine
DX: Z79.01 Long term (current) use of anticoagulants
CPT/HCPCS: 36415; 85610

== ENCOUNTER → 2024-01-22 | Outpatient (CLI) | payer MEDICARE, MEDICAID, SELFPAY ==
[2021-09-03 12:59] VITALS: BMI 43.4
--- NOTE | 2024-01-22 15:40 | RAD_ITS ---
EXAM: XR LEFT KNEE, 3 VIEWS CLINICAL INDICATION: left knee pain TECHNIQUE: Three views of the left knee. COMPARISON: No relevant prior studies available. FINDINGS: BONES/JOINTS: Unremarkable. No acute fracture. No subluxation. Normal alignment. Preservation of the joint space. No sclerotic or destructive changes observed. SOFT TISSUES: Unremarkable. No soft tissue swelling or gas. No radiopaque foreign body. RAD/Knee 3 Views IMPRESSION: Negative left knee x-rays. Electronically Signed: Trung Gotti MD at 0:03 EDT ,
== END | disposition home or self-care (01) ==
LOC: RAD 15:19
PROVIDERS: PCP Internal Medicine; Referring Provider Internal Medicine; Visit Provider Internal Medicine
DX: M25.652 Stiffness of left hip, not elsewhere classified (principal)
CPT/HCPCS: 73562

== ENCOUNTER → 2024-02-25 | Outpatient (CLI) | payer MEDICARE, MEDICAID, SELFPAY ==
[2021-09-03 12:59] VITALS: BMI 43.4
[2024-02-25 09:42] LABS: Absolute Lymphocyte Count 1.35 X10^3/uL (0.83-4.51); Absolute Neutrophil Count 3.9 X10^3/uL (2.0-7.7); Basophil# 0.08 X10^3/uL; Basophil% 1.3 % (0-1); Eosinophil# 0.11 X10^3/uL; Eosinophils% 1.8 % (0-5); Hemoglobin 13.7 g/dL (12.0-15.0); Lymphocyte # 1.35 X10^3/ul (0.83-4.51); Lymphocyte % 21.8 % (19-41); Mean Corp Hgb Conc 32.6 g/dL (32-36); Mean Corpuscular Hgb 29.4 pg (27.0-32.0); Mean Corpuscular Volume 90.1 fL (81-99); Mean Platelet Vol. 10.3 fl (6.2-12.0); Monocyte% 11.3 % (0-10); NRBC Flagged by Analyzer 0 % (0-5); Neutrophil # 3.92 X10^3/uL (2.7-7.7); Neutrophil % 63.3 % (47-70); Platelet Count 252 K/mm3 (150-450); RBC Distribution Width SD 46.4 fl (35.1-43.9); Red Blood Count 4.66 M/mm3 (4.2-5.4); White Blood Count 6.2 K/mm3 (4.4-11.0)
[2024-02-25 10:40] LABS: ALB/GLOB Ratio 0.9 RATIO (0.9-2.4); AST(SGOT) 20 U/L (15-37); Alanine Aminotransfer ALT/SGPT 22 U/L (13-56); Albumin, Serum 3.1 g/dL (3.2-5.0); Alkaline Phosphatase 68 U/L (45-117); Anion Gap 4 (5-15); BUN 14 mg/dL (7-18); BUN/Creat Ratio 27.5 RATIO (10-20); Calcium,Total 8.7 mg/dL (8.5-10.1); Chloride 109 mmol/L (98-107); Cholesterol 138 mg/dL (200); Creatinine, Serum 0.51 mg/dL (0.55-1.02); EST Glomerular Filtration Rate 129 mL/min (>60); Est Glom Filt Rate - Afr Amer 156 mL/min (>60); Globulin 3.3 g/dL (2.2-4.2); Glucose 118 mg/dL (74-106); High Density Lipoprotein 34 mg/dL; Magnesium 2.3 mg/dL (1.6-2.6); Potassium 3.4 mmol/L (3.5-5.1); Protein, Total 6.4 g/dL (6.4-8.2); Sodium Level 140 mmol/L (136-145); Triglycerides 211 mg/dL; Very Low Density Lipoprotein 42 mg/dL (5-40)
--- NOTE | 2024-02-25 10:56 | ECHOD_ITS ---
Reason For Study: AORTIC VALVE REPLACEMNT Procedure This was a 2D Doppler, Color Flow transthoracic echocardiogram. Exam performed in department. Left Ventricle Normal LV size. Moderate assymetric septal hypertrophy. The estimated ejection fraction is 65 %. Left ventricular systolic function is normal. Diastolic function is indeterminate. No regional wall motion abnormalities noted. Right Ventricle Normal RV size. Normal systolic function. Atria The left atrium is moderately enlarged. Normal right atrium. Mitral Valve Moderate mitral annular calcification. Mild diffuse mitral valve thickening. Mild mitral valve stenosis. Mean transmitral valve gradient 8 mmHg. Mild (1+) mitral valve insufficiency. Tricuspid Valve Normal tricuspid valve. Trivial tricuspid valve insufficiency. Unable to estimate RV systolic pressure due to insufficient tricuspid regurgitant envelope. Aortic Valve Trivial aortic valve insufficiency. Stable appearing bioprosthetic aortic valve apparatus. Pulmonic Valve The pulmonic valve is not well visualized. Great Vessels Normal aortic root. Pericardium/Pleural No pericardial effusion. MMode/2D Measurements & Calculations LVIDd: 4.3 cm IVSd: 1.4 cm LVOT diam: 1.9 cm LVIDs: 2.4 cm LVPWd: 1.1 cm LVOT area: 2.8 cm2 RVDd: 3.7 cm FS: 44.3 % Ao root diam: 3.0 cm LAV(MOD-bp): 64.7 ml LVAd ap4: 28.3 cm2 LAV(MOD-bp) Indexed: 31.5 ml/m2 LVLd ap4: 7.7 cm LAV(MOD-sp2): 71.5 ml EDV(MOD-sp4): 82.7 ml LAV(MOD-sp4): 55.4 ml EDV(sp4-el): 87.9 ml LVAs ap4: 14.4 cm2 LVLs ap4: 6.4 cm ESV(MOD-sp4): 28.1 ml ESV(sp4-el): 27.7 ml EF(MOD-sp4): 66.1 % EF(sp4-el): 68.4 % LVAd ap2: 26.6 cm2 SV(MOD-sp4): 54.6 ml SV(MOD-sp2): 43.8 ml LVLd ap2: 7.8 cm EDV(MOD-sp2): 74.1 ml EDV(sp2-el): 76.6 ml LVAs ap2: 15.3 cm2 LVLs ap2: 6.4 cm ESV(MOD-sp2): 30.3 ml ESV(sp2-el): 31.2 ml EF(MOD-sp2): 59.2 % SV(sp4-el): 60.2 ml LA dimension(2D): 4.6 cm LA A4 area: 19.3 cm2 RA A4 area: 15.5 cm2 TAPSE: 2.6 cm Doppler Measurements & Calculations MV E max mark: 118.9 cm/sec Lat Peak E' Mark: 7.4 cm/sec Med Peak E' Mark: 9.8 cm/sec MV A max mark: 175.0 cm/sec E/E' lat: 16.0 E/E' med: 12.2 MV E/A: 0.68 MV V2 max: 209.0 cm/sec Ao V2 max: 305.8 cm/sec LV V1 max: 117.3 cm/sec MV max P.5 mmHg Ao max P.6 mmHg LV V1 max P.5 mmHg MV V2 mean: 131.4 cm/sec Ao V2 mean: 230.1 cm/sec LV V1 mean P.5 mmHg MV mean P.8 mmHg Ao mean P.3 mmHg LV V1 mean: 90.5 cm/sec MV V2 VTI: 37.2 cm Ao V2 VTI: 58.1 cm LV V1 VTI: 25.8 cm MVA(VTI): 1.9 cm2 AV (velocity ratio): 0.44 FELICIANO(I,D): 1.2 cm2 FELICIANO(V,D): 1.1 cm2 SV(LVOT): 71.9 ml PA V2 max: 91.2 cm/sec PA max PG (full): 1.4 mmHg ECHO/Echo Complete Interpretation Summary The estimated ejection fraction is 65 %. Moderate assymetric septal hypertrophy. Diastolic function is indeterminate. The left atrium is moderately enlarged. Mild mitral valve stenosis. Mild (1+) mitral valve insufficiency. Bioprosthetic aortic valve mean peak gradient 23 mmHg. Increased from 16 mmHg g radient in 2021. Ordering Physician: Maxwell Hall Referring Physician: Ophelia Soria M.D. Performed By: Crystal An RDCS
== END | disposition home or self-care (01) ==
PROVIDERS: Physician Assistant Medical; PCP Internal Medicine; Referring Provider Internal Medicine Cardiovascular Disease; Visit Provider Internal Medicine Cardiovascular Disease
DX: R06.02 Shortness of breath (principal); R00.2 Palpitations; I25.10 Atherosclerotic heart disease of native coronary artery without angina pectoris; I16.0 Hypertensive urgency; E78.5 Hyperlipidemia, unspecified; M25.512 Pain in left shoulder; Z95.2 Presence of prosthetic heart valve; Z79.01 Long term (current) use of anticoagulants; Z86.711 Personal history of pulmonary embolism; Z86.718 Personal history of other venous thrombosis and embolism
CPT/HCPCS: 36415; 80053; 80061; 83735; 83880; 85025; 93306

== ENCOUNTER 2024-02-28 12:54 | Emergency (ER) | payer MEDICARE, MEDICAID, SELFPAY ==
[2021-09-03 12:59] VITALS: BMI 43.4
[2024-02-28 12:54] VITALS: BP 151/74; PULSE 94; RESP 14; TEMP 36.6; O2SAT 96
--- NOTE | 2024-02-28 13:19 | RAD_ITS ---
HISTORY: dyspnea. TECHNIQUE: XR Chest 1 View. COMPARISON: None. FINDINGS: CARDIOMEDIASTINAL BORDERS: Cardiac silhouette within normal limits in size. Mediastinal contour unremarkable. LUNGS: 4.5 cm focal opacity in the right midlung. Mild right basilar opacity. PLEURA: No pleural effusion or pneumothorax seen. OSSEOUS STRUCTURES: Right shoulder arthroplasty and cervical spinal fusion hardware noted. RAD/Chest 1 View (Portable) IMPRESSION: 4.5 cm focal opacity in the right midlung. Recommend CT to assess for mass versus pneumonia. Right basilar atelectasis or inflammation. Electronically Signed: Queta Nesbitt MD at 14:01 EDT ,
[2024-02-28 13:21] VITALS: O2SAT 99
--- NOTE | 2024-02-28 13:21 | EDS_ITS ---
HPI History of Present Illness Chief Complaint: Asthma Informant: patient and family Narrative Narrative: 63-year-old female presenting to the emergency room stating that she is having an asthma exacerbation. Patient has a history of COPD wears BiPAP with home O2 at night only. Patient states she woke this morning feeling short of breath. She states she gave a breathing treatment which did not relieve her symptoms so she came to emergency. She denies any fevers or chills no change in sputum production. No recent diagnoses of pneumonia. She states that her allergies have been acting up recently and she called her box chipper who increased one of her medicines but she does not know what because she has not picked it up from the pharmacy yet. [facility] Medical History Rectal bleeding Subtherapeutic international normalized ratio (INR) Peripheral neuropathy Positive FIT (fecal immunochemical test) History of transcatheter aortic valve replacement (TAVR) (~04/19/21) COVID-19 Depression Anxiety Discoloration of skin History of steroid therapy Insulin dependent diabetes mellitus Diabetes Arthritis High cholesterol Pulmonary embolism Easy bruising Excessive bleeding Restless legs Back pain Migraine headache TIA (transient ischemic attack) Non-smoker BiPAP (biphasic positive airway pressure) dependence On home oxygen therapy Shortness of breath on exertion Leg cramps History of pain when walking History of edema History of stress test Hx of transesophageal echocardiography (YOLANDA) for monitoring History of echocardiogram Cardiology follow-up encounter Rotator cuff arthropathy of right shoulder History of DVT (deep vein thrombosis) Back pain with sciatica Nonrheumatic aortic (valve) stenosis Essential hypertension Carotid artery disease Atherosclerotic heart disease of [place] coronary artery without angina pectoris Personal history of anaphylaxis Bilateral carotid bruits Body mass index 45.0-49.9, adult Diastolic heart failure COPD (chronic obstructive pulmonary disease) CHELSEY treated with BiPAP History of pulmonary embolism Morbid obesity Type 2 diabetes mellitus Asthma Home Medications ?Medication ?Instructions ?Recorded ?Last Taken ?Type fluoxetine 20 mg capsule 40 mg PO DAILY anxiety 01/26/14 04/05/21 History Ca 600 mg-D3 800 unit-magnes 40 1 ea PO DAILY vitamins 05/27/16 04/05/21 History gw-jjyf-guc-angel-boron chewable tablet fenofibrate nanocrystallized 145 72.5 mg PO QHS cholesterol 04/26/19 04/04/21 History mg tablet trazodone 50 mg tablet 50 mg PO QHS sleep 08/09/19 04/04/21 History epinephrine 0.3 mg/0.3 mL 0.3 mg (0.3 mL) IM X1 PRN 01/18/20 Unknown Rx injection, auto-injector Anaphylaxis #1 ea albuterol sulfate 2.5 mg/3 mL 2.5 mg (3 mL) inhalation Q2H PRN 04/24/20 07/02/21 09:00 Rx (0.083 %) solution for nebulization PRN dyspnea, wheezing #180 mL albuterol sulfate 90 mcg/actuation 2 inh inhalation Q4H PRN PRN Sob 04/24/20 04/29/22 Rx aerosol inhaler &/Or Wheezing #18 grams montelukast 10 mg tablet 10 mg PO DAILY allergies/asthma 12/07/20 04/05/21 Rx #30 tabs alendronate 70 mg tablet 70 mg PO WE bone health 12/21/20 08/07/22 History nystatin 100,000 unit/gram topical 1 applic topical BID PRN PRN YEAST 12/21/20 04/05/21 History powder beclomethasone dipropionate 80 1 inh inhalation BID Asthma 03/22/21 07/02/21 09:00 History mcg/actuation HFA breath activated aerosol budesonide-formoterol HFA 160 2 puff inhalation BID asthma 03/22/21 04/29/22 History mcg-4.5 mcg/actuation aerosol inhaler ipratropium 0.5 mg-albuterol 3 mg 3 ml inhalation BID asthma 03/22/21 04/05/21 History (2.5 mg base)/3 mL nebulization soln tizanidine 4 mg capsule 4 mg PO Q8H PRN muscle relaxer 03/22/21 02/10/23 History cyanocobalamin (vitamin B-12) 100 100 mcg PO DAILY supplement 04/05/21 04/05/21 History mcg tablet (Vitamin B-12) melatonin 10 mg tablet 12 mg PO QHS sleep 04/05/21 04/04/21 History pregabalin 150 mg capsule 150 mg PO TID nerve pain 04/05/21 08/11/22 History meclizine 25 mg tablet 25 mg PO DAILY PRN Vertigo 05/04/21 Unknown History docusate sodium 100 mg capsule 100 mg PO DAILY stool softener 08/17/21 Unknown History magnesium 250 mg tablet 400 mg PO DAILY supplement 08/17/21 Unknown History L.acidophil-L.casei-B.bifid-B.longum-FOS 1 cap PO DAILY supplement 11/07/21 Unknown History 2 billion cell-50 mg capsule (Probiotic Blend) ascorbate calcium (vitamin C) 500 1 g PO DAILY vitamin 11/07/21 09/29/23 History mg tablet chromium picolinate 200 mcg tablet 200 mcg PO DAILY supplement 11/07/21 Unknown History clobetasol 0.05 % topical cream 1 applic topical PRN PRN 11/07/21 Unknown History RASH/ITCHING coconut oil 1,000 mg capsule 1,000 mg PO DAILY supplement 11/07/21 Unknown History cyclobenzaprine 5 mg tablet 10 mg PO Q8H PRN MUSCLE CRAMPING 11/07/21 08/11/22 History levocetirizine 5 mg tablet 5 mg PO DAILY allergies 11/07/21 Unknown History vitamin K2 45 mcg capsule 100 mcg PO DAILY vitamin 11/07/21 Unknown History dapagliflozin propanediol 10 mg 10 mg PO DAILY diabetes 08/11/22 08/11/22 History tablet (Farxiga) pitavastatin calcium 4 mg tablet 4 mg PO DAILY cholesterol 08/11/22 Unknown History (Livalo) multivitamin (Daily Multi-Vitamin 1 tab PO DAILY vag itching 06/12/23 Unknown History tablet) omeprazole 40 mg capsule,delayed 40 mg PO BID gerd 06/12/23 Unknown History release quercetin 500 mg capsule 500 mg PO DAILY supplement 06/12/23 Unknown History semaglutide 1 mg/dose (4 mg/3 mL) 1 mg subcut ECHEVARRIA diabetes 06/12/23 Unknown History subcutaneous pen injector (Ozempic) tiotropium bromide 18 mcg capsule 18 mcg inhalation DAILY asthma 06/12/23 Unknown History with inhalation device erenumab-aooe 70 mg/mL 70 mg subcut QMONTH ordered #1 06/13/23 Unknown Rx subcutaneous auto-injector mL (Aimovig Autoinjector) rizatriptan 10 mg tablet (Maxalt) 10 mg PO Q2H PRN migraine headache 06/13/23 Unknown Rx #10 tabs acetaminophen 500 mg tablet 1,000 mg PO Q8 PRN pain 08/25/23 Unknown History azelastine 137 mcg-fluticasone 50 2 spray intranasal BID allergy 08/25/23 Unknown History mcg/spray nasal spray cholecalciferol (vitamin D3) 125 125 mcg PO DAILY vitamin-self care 08/25/23 Unknown History mcg (5,000 unit) tablet (Vitamin D3) polyethylene glycol 3350 17 gram 17 g PO BID self care #0 ea 09/03/23 Unknown Rx oral powder packet sennosides 8.6 mg tablet (senna) 17.2 mg (2 x 8.6 mg) PO BID stool 09/03/23 Unknown Rx softner #120 tabs Lactobacillus acidophilus 1 tab PO DAILY Supplement 09/29/23 Unknown History (Acidophilus chewable tablet) Lipozene 1,500 mg PO 11XD Weight Loss 09/29/23 Unknown History black seed oil 10,000 mg PO DAILY unknown 09/29/23 Unknown History insulin glargine U-300 conc 300 50 unit subcut BID DIABETES 09/29/23 Unknown History unit/mL (1.5 mL) subcutaneous pen (Toujeo SoloStar U-300 Insulin) ondansetron 4 mg disintegrating 4 mg PO DAILY PRN nausea 09/29/23 Unknown History tablet oxycodone-acetaminophen 5 mg-325 1 tab PO BID pain 09/29/23 Unknown History mg tablet sennosides 8.6 mg-docusate sodium 2 tab-cap PO DAILY PRN constipation 09/29/23 Unknown History 50 mg tablet zinc 100 mg tablet 100 mg PO DAILY supplement 09/29/23 Unknown History Hydrocortisone 2.5%/lidocaine 5% #30 ea 10/09/23 Unknown Rx suppository (cmpd) diltiazem HCl 120 mg 120 mg PO .COMPLEX high blood 02/02/24 Unknown History capsule,extended release 24 hr pressure (Cardizem CD) warfarin 10 mg tablet [address] Soria Manages. 02/02/24 Unknown History diltiazem HCl 240 mg 240 mg PO QDAY 02/16/24 Unknown History capsule,extended release 24 hr furosemide 40 mg tablet 80 mg PO BID diuresis 02/16/24 Unknown History losartan 50 mg tablet 50 mg PO BID #60 tabs 02/16/24 Unknown Rx spironolactone 50 mg tablet 50 mg PO DAILY #30 tabs 02/16/24 Unknown Rx potassium chloride 10 mEq 10 meq PO DAILY #90 caps 02/25/24 Unknown Rx capsule,extended release doxycycline hyclate 100 mg capsule 100 mg PO BID #20 caps 02/28/24 Unknown Rx Allergy/AdvReac Type Severity Reaction Status Date / Time clindamycin Allergy Rash Verified 02/28/24 12:54 erythromycin base Allergy Rash Verified 02/28/24 12:54 (Erythromycin Base) omalizumab (From Xolair) Allergy Chest Verified 02/28/24 12:54 tightness Penicillins Allergy Rash Verified 02/28/24 12:54 sulfamethoxazole (From Allergy Chest Verified 02/28/24 12:54 Bactrim) tightness trimethoprim (From Bactrim) Allergy Chest Verified 02/28/24 12:54 tightness Sulfa (Sulfonamide AdvReac Unknown Unknown Verified 02/28/24 12:54 Antibiotics) Family History Father Heart disease Diabetes CAD (coronary artery disease) Mother CAD (coronary artery disease) CVA (cerebral vascular accident) Diabetes Brother CAD (coronary artery disease) CVA (cerebral vascular accident) Diabetes Unknown Cancer Grandmother CVA (cerebral vascular accident) Diabetes Grandfather CVA (cerebral vascular accident) Grandmother Myocardial infarction Brother Diabetes Sister Diabetes Surgical History History of colonoscopy History of cardiac catheterization Aortic valve replaced History of left heart catheterization (LHC) (~01/19/21) H/O lumbosacral spine surgery History of rotator cuff surgery Hx of appendectomy History of hernia repair History of section History of neck surgery Social History household members: spouse housing: apartment pets and animals: Yes Smoking Status: Never smoker second hand exposure: No alcohol intake: current alcohol intake frequency: a few times a week substance use type: does not use caffeine: No what type of physical activity do you participate in: none do you feel safe at home: Yes ROS ROS ED Constitutional Constitutional ED: Denies chills, fever(s) or weight loss Eyes Eyes: Denies change in vision or diplopia ENT ENT ED: Denies ear pain, rhinorrhea or sore throat Cardiovascular Cardiovascular: Denies chest pain, orthopnea, palpitations or racing heartbeat Respiratory/Chest Respiratory/Chest: Reports cough and dyspnea; Denies orthopnea Gastrointestinal Gastrointestinal: Denies abdominal pain, diarrhea, nausea or vomiting Genitourinary Genitourinary ED: Denies dysuria, hematuria or urinary frequency Musculoskeletal Musculoskeletal: Denies arthralgias or myalgias Integumentary Denies abscess or rash Neurologic Neurologic: Denies headache(s) or weakness Psychiatric Psychiatric: Denies anxiety, depression, suicidal ideation or suicidal thoughts Endocrine Endocrinology: Denies polydipsia, polyphagia or polyuria Allergic/Immunologic Allergic/Immunologic ED: Denies mouth swelling, tongue swelling or urticaria EXAM Physical Exam Const Vital Signs: 02/28/24 12:54 02/28/24 13:21 02/28/24 13:30 Temperature 98 F Temperature Source Temporal Pulse Rate 94 86 Respiratory Rate 14 20 H Respiratory Effort Normal Respiratory Pattern Tachypnea Blood Pressure 151/74 H Blood Pressure Mean 99 Pulse Ox 96 Oxygen Delivery Method Room Air Room Air 02/28/24 14:54 02/28/24 16:00 Temperature Temperature Source Pulse Rate 87 95 Respiratory Rate 16 21 H Respiratory Effort Respiratory Pattern Blood Pressure 155/72 H 148/58 H Blood Pressure Mean 99 88 Pulse Ox 97 95 Oxygen Delivery Method Room Air Positive well nourished, well developed and obese General Appearance ED: well developed Nutritional Appearance: obese HEENT Reports normocephalic, head/scalp atraumatic and moist mucous membranes Eyes PERRL and EOMs intact bilaterally Neck no lymphadenopathy, supple and no JVD Resp normal respiratory effort Resp Narrative: There appears to be his mild amount of expiratory wheezing in the lungs. There is rhonchi of the right lung in the middle the upper gonzalez. However there seems to be an awful large amount of forced expiratory upper airway disturbance that is audible without auscultation. It does resolve when she pursed lip breathes but the patient states she cannot pursed lip breathed. Cardio regular rate, regular rhythm and no murmurs GI normal to inspection, nondistended, normoactive bowel sounds and non-tender Palpation: soft Back/Spine no CVA tenderness and normal ROM Extremity normal to inspection General Extremety ED: Negative for edema General Extremity: Negative for edema Neuro oriented x3 and CN's II-XII intact bilaterally Sensorium / Orientation: alert Motor Exam: strength 5/5 throughout Psych mental status grossly normal Mood & Affect: Negative for depressed or tearful Skin no rashes or lesions noted and no wounds MDM MDM MDM Narrative Medical decision making narrative: Patient received a breathing treatment and a dose of prednisone. Repeat examination finds the patient to be sleeping. While sleeping I do not hear any of the breathing changes but I do hear when she is awake. The right side seems to have more rhonchi than the left. Magnapen interpretation of the chest x-ray is possible pneumonia. Radiology recommendation is for CT. We obtained a CT and is consistent with pneumonia rather than mass effect. Patient's not requiring supplemental oxygen. Her white count is 7. She is appears well- hydrated. Patient will be treated with doxycycline. This was chosen because of the patient's allergies. She does not wish penicillin based medications. She is on Coumadin and therefore the fluoroquinolones may be a difficult choice for her. Patient understands return instructions as well as follow-up return if worsening or concerns History & Record Review Discussion w/independent historian: Patient Lab Data Attestation: I reviewed the patient's lab results. Labs: Laboratory Results - last 24 hr 02/28/24 14:35 WBC 7.7 RBC 4.74 Hgb 13.8 Hct 42.7 MCV 90.1 MCH 29.1 MCHC 32.3 RDW Std Deviation 46.3 H RDW Coeff of Carmencita 14.0 Plt Count 226 MPV 10.6 Immature Gran % (Auto) 0.400 Neut % (Auto) 75.0 H Lymph % (Auto) 11.3 L [place] % (Auto) 12.1 H Eos % (Auto) 0.4 Baso % (Auto) 0.8 Absolute Neuts (auto) 5.8 Absolute Lymphs (auto) 0.87 Nucleated RBC % 0 Sodium 136 Potassium 3.5 Chloride 103 Carbon Dioxide 25.0 Anion Gap 8 BUN 18 Creatinine 0.73 Estim Creat Clear Calc 87.84 Est GFR (MDRD) Af Amer 103 Est GFR (MDRD) Non-Af 85 BUN/Creatinine Ratio 24.7 H Glucose 105 Calcium 8.6 Radiography Diagnostic Testing: Clinical Impression(s) from Imaging Studies Chest X-Ray 02/28/24 13:19 IMPRESSION: 4.5 cm focal opacity in the right midlung. Recommend CT to assess for mass versus pneumonia. Right basilar atelectasis or inflammation. Electronically Signed: Queta Nesbitt MD at 14:01 EDT , Chest CT 02/28/24 14:23 IMPRESSION: Right upper lobe consolidation and groundglass opacities, compatible with pneumonia. Recommend follow-up to resolution. Mild infection or inflammation in the right lower lobe. Mild right hilar and mediastinal lymphadenopathy, which may be reactive. Electronically Signed: Queta Nesbitt MD at 15:33 EDT , Discharge Plan Triage Chief Complaint: Asthma ED Provider: Quinn Mcneal Dx/Rx/DC Orders Clinical Impression: Pneumonia, Asthma Instructions: ED Pneumonia (Adult) Prescriptions: New doxycycline hyclate 100 mg capsule 100 mg PO BID Qty: 20 0RF No Action trazodone 50 mg tablet 50 mg PO QHS albuterol sulfate 2.5 mg /3 mL (0.083 %) solution for nebulization 2.5 mg INHALATION Q2H PRN PRN (Reason: dyspnea, wheezing) Qty: 180 6RF albuterol sulfate 90 mcg/actuation HFA aerosol inhaler 2 inh INHALATION Q4H PRN PRN (Reason: Sob &/Or Wheezing) Qty: 18 6RF montelukast 10 mg tablet 10 mg PO DAILY Qty: 30 6RF alendronate 70 mg tablet 70 mg PO WE nystatin 100,000 unit/gram powder 1 applic TOPICAL BID PRN PRN (Reason: YEAST) meclizine 25 mg tablet 25 mg PO DAILY PRN (Reason: Vertigo) magnesium 250 mg tablet 400 mg PO DAILY levocetirizine 5 mg tablet 5 mg PO DAILY cyclobenzaprine 5 mg tablet 10 mg PO Q8H PRN (Reason: MUSCLE CRAMPING) Patient Comments: I only take it when I absolutely have to...I am supposed to take it three times per day, but I take it prn...I makes me sleep for 6 hours and I didn't like that. clobetasol 0.05 % cream 1 applic topical PRN PRN (Reason: RASH/ITCHING) chromium picolinate 200 mcg tablet 200 mcg PO DAILY coconut oil 1,000 mg capsule 1,000 mg PO DAILY Probiotic Blend 2 billion cell-50 mg capsule 1 cap PO DAILY Rx Instructions: give with meal/snack ascorbate calcium (vitamin C) 500 mg tablet 1 g PO DAILY vitamin K2 45 mcg capsule 100 mcg PO DAILY (DME) Hydrocortisone 2.5%/lidocaine 5% suppository (cmpd) Suppository See Rx Instructions .Route Qty: 30 1RF Rx Instructions: insert rectally twice daily x 2 weeks diltiazem HCl 240 mg capsule,extended release 24hr 240 mg PO QDAY losartan 50 mg tablet 50 mg PO BID Qty: 60 11RF spironolactone 50 mg tablet 50 mg PO DAILY Qty: 30 11RF Rx Instructions: Take at evening meal with Losartan fluoxetine 20 MG capsule 40 mg PO DAILY Patient Comments: Depression/anxiety docusate sodium 100 mg capsule 100 mg PO DAILY Patient Comments: Stool softner Ci-A8-eua-hkeg-roe-giqm-boron 1 EACH tablet,chewable 1 ea PO DAILY fenofibrate nanocrystallized 145 MG tablet 72.5 mg PO QHS tizanidine 4 mg Capsule 4 mg PO Q8H PRN (Reason: muscle relaxer) Patient Comments: I only take this if I don't want to be knocked out for 6 hours from the cyclobenzaprine. I take one or the other, not both. ipratropium-albuterol 0.5 mg-3 mg(2.5 mg base)/3 mL solution for nebulization 3 ml INHALATION BID Rx Instructions: Continue until re-evaluation per pulmonary with possible transition back to home regimen at that time. budesonide-formoterol 160-4.5 mcg/actuation HFA aerosol inhaler 2 puff INHALATION BID beclomethasone dipropionate 80 mcg/actuation HFA aerosol breath activated 1 inh inhalation BID furosemide 40 mg tablet 80 mg PO BID Rx Instructions: take on Friday, Friday, Friday cyanocobalamin (vitamin B-12) [Vitamin B-12] 100 mcg Tablet 100 mcg PO DAILY pregabalin 150 mg capsule 150 mg PO TID melatonin 10 mg Tablet 12 mg PO QHS pitavastatin calcium [Livalo] 4 mg tablet 4 mg PO DAILY Farxiga 10 mg tablet 10 mg PO DAILY Ozempic 1 mg/dose (4 mg/3 mL) pen injector 1 mg subcut ECHEVARRIA omeprazole 40 mg capsule,delayed release(DR/EC) 40 mg PO BID tiotropium bromide 18 mcg capsule, w/inhalation device 18 mcg inhalation DAILY Rx Instructions: puncture 1 cap using device; one dose = 2 inhalations multivitamin [Daily Multi-Vitamin] Tablet 1 tab PO DAILY quercetin 500 mg capsule 500 mg PO DAILY rizatriptan [Maxalt] 10 mg tablet 10 mg PO Q2H PRN (Reason: migraine headache) Qty: 10 0RF Rx Instructions: do not exceed 3 doses per 24 hrs Aimovig Autoinjector 70 mg/mL auto-injector 70 mg subcut QMONTH Qty: 1 0RF Patient Comments: pt requeste to stop taking Rx Instructions: per patient's normal routine. cholecalciferol (vitamin D3) [Vitamin D3] 125 mcg (5,000 unit) tablet 125 mcg PO DAILY azelastine-fluticasone 137-50 mcg/spray spray,non-aerosol 2 spray intranasal BID Rx Instructions: administer into each nostril acetaminophen 500 mg Tablet 1,000 mg PO Q8 PRN (Reason: pain) polyethylene glycol 3350 17 gram Powder In Packet 17 g PO BID Qty: 0 0RF Rx Instructions: OTC sennosides [senna] 8.6 mg Tablet 17.2 mg PO BID Qty: 120 0RF Rx Instructions: OTC Toujeo SoloStar U-300 Insulin 300 unit/mL (1.5 mL) insulin pen 50 unit SUBCUT BID Patient Comments: INJECT 56 [id number] JUNIOR Rx Instructions: TOUJEO ondansetron 4 mg tablet,disintegrating 4 mg PO DAILY PRN (Reason: nausea) oxycodone-acetaminophen 5-325 mg tablet 1 tab PO BID Lipozene 1,500 mg PO 11XD sennosides-docusate sodium 8.6-50 mg tablet 2 tab-cap PO DAILY PRN (Reason: constipation) black seed oil 10,000 mg PO DAILY Acidophilus Tablet,Chewable 1 tab PO DAILY Patient Comments: 175 mg tab zinc 100 mg tablet 100 mg PO DAILY epinephrine 0.3 mg/0.3 mL auto-injector 0.3 mg IM X1 PRN (Reason: Anaphylaxis) Qty: 1 0RF diltiazem HCl [Cardizem CD] 120 mg capsule,extended release 24hr 120 mg PO .COMPLEX Patient Comments: as directed by doctor Rx Instructions: 120 mg orally daily PRN BP > 170 per PCP.; warfarin 10 mg tablet 10 mg PO DAILY potassium chloride 10 mEq capsule, extended release 10 meq PO DAILY Qty: 90 3RF Primary Care Provider: Ophelia Soria Referrals: Ophelia Soria DO [Primary Care Provider] - 5-7 Days Activity Restrictions/Additional Instructions: I would recommend a albuterol aerosol every 3 or 4 hours while awake. Please monitor your breathing, temperature, and return for any concerns or worsening Print Language: Serbian Disposition Disposition: Home, Self Care
[2024-02-28 13:30] VITALS: PULSE 86; RESP 20
[2024-02-28] MEDS: Ipratropium/Albuterol Sulfate 3 ML AMPUL.NEB INHALATION (13:30)
[2024-02-28] MEDS: predniSONE 20 MG Tablet 60 MG PO (13:35)
[2024-02-28 13:48] VITALS: BMI 36.6
--- NOTE | 2024-02-28 14:23 | CT_ITS ---
HISTORY: abnormal chest xray. TECHNIQUE: CT of the chest was performed after the intravenous administration of 100 mL Isovue-370. Coronal and sagittal reformatted images. Individualized dose optimization techniques were used for this CT. 916 images. COMPARISON: Complex R same day. FINDINGS: CENTRAL AIRWAYS: Patent. LUNGS: Groundglass opacities scattered in the right upper lobe with dependent alveolar consolidation containing air bronchograms. Mild right lower lobe groundglass opacities. PLEURA: No pneumothorax or significant pleural effusion. HEART/PERICARDIUM: Heart within normal limits in size with aortic valve prosthesis in place. No pericardial effusion. AORTA/VESSELS: No thoracic aortic aneurysm or dissection flap. No large central filling defect identified in the pulmonary arteries. MEDIASTINUM/SAMI: Mildly enlarged right hilar and mediastinal lymph nodes. OSSEOUS STRUCTURES: Right shoulder arthroplasty and cervical spinal fusion hardware present. Degenerative change. Mild T8 compression fracture with kyphoplasty. UPPER ABDOMEN: Fatty liver. Duodenal diverticula. Small left renal cysts. CT/Chest WITH Contrast IMPRESSION: Right upper lobe consolidation and groundglass opacities, compatible with pneumonia. Recommend follow-up to resolution. Mild infection or inflammation in the right lower lobe. Mild right hilar and mediastinal lymphadenopathy, which may be reactive. Electronically Signed: Queta Nesbitt MD at 15:33 EDT ,
[2024-02-28 14:54] VITALS: BP 155/72; PULSE 87; RESP 16; O2SAT 97
[2024-02-28 15:14] LABS: Absolute Lymphocyte Count 0.87 X10^3/uL (0.83-4.51); Absolute Neutrophil Count 5.8 X10^3/uL (2.0-7.7); Basophil# 0.06 X10^3/uL; Basophil% 0.8 % (0-1); Eosinophil# 0.03 X10^3/uL; Eosinophils% 0.4 % (0-5); Hematocrit 42.7 % (37-47); Hemoglobin 13.8 g/dL (12.0-15.0); Lymphocyte # 0.87 X10^3/ul (0.83-4.51); Lymphocyte % 11.3 % (19-41); Mean Corp Hgb Conc 32.3 g/dL (32-36); Mean Corpuscular Hgb 29.1 pg (27.0-32.0); Mean Corpuscular Volume 90.1 fL (81-99); Mean Platelet Vol. 10.6 fl (6.2-12.0); Monocyte# 0.93 X10^3/uL; Monocyte% 12.1 % (0-10); NRBC Flagged by Analyzer 0 % (0-5); Neutrophil # 5.76 X10^3/uL (2.7-7.7); Platelet Count 226 K/mm3 (150-450); RBC Distribution Width SD 46.3 fl (35.1-43.9); Red Blood Count 4.74 M/mm3 (4.2-5.4); White Blood Count 7.7 K/mm3 (4.4-11.0)
[2024-02-28 15:33] LABS: Anion Gap 8 (5-15); BUN 18 mg/dL (7-18); BUN/Creat Ratio 24.7 RATIO (10-20); Calcium,Total 8.6 mg/dL (8.5-10.1); Chloride 103 mmol/L (98-107); Creatinine, Serum 0.73 mg/dL (0.55-1.02); EST Glomerular Filtration Rate 85 mL/min (>60); Est Glom Filt Rate - Afr Amer 103 mL/min (>60); Estimated Creatinine Clearance 87.84 ml/min; Glucose 105 mg/dL (74-106); Potassium 3.5 mmol/L (3.5-5.1); Sodium Level 136 mmol/L (136-145)
[2024-02-28 16:00] VITALS: BP 148/58; PULSE 95; RESP 21; O2SAT 95
[2024-02-28 16:30] VITALS: BP 140/80; PULSE 82; RESP 19; TEMP 36.6; O2SAT 96
[2024-02-28 17:14] LABS: International Normalized Ratio 2.5; Prothrombin Time (Protime)PT. 26.5 SECONDS (11.7-14.9)
== END 2024-02-28 16:34 | disposition home or self-care (01) ==
PROVIDERS: Emergency Provider Emergency Medicine; PCP Internal Medicine; Visit Provider Emergency Medicine
DX: J18.9 Pneumonia, unspecified organism (principal); J44.9 Chronic obstructive pulmonary disease, unspecified; I25.10 Atherosclerotic heart disease of native coronary artery without angina pectoris; E66.9 Obesity, unspecified; Z86.16 Personal history of COVID-19; Z86.711 Personal history of pulmonary embolism; Z86.73 Personal history of transient ischemic attack (TIA), and cerebral infarction without residual deficits
CPT/HCPCS: 71045; 71260; 80048; 85025; 85610; 94640; 99282; Q9967; A4216

== ENCOUNTER 2024-03-31 16:23 | Outpatient (RCR) | payer MEDICARE, MEDICAID, SELFPAY ==
[2021-09-03 12:59] VITALS: BMI 43.4
[2024-03-31 18:08] LABS: International Normalized Ratio 1.2; Prothrombin Time (Protime)PT. 14.9 SECONDS (11.7-14.9)
== END 2024-03-31 18:00 | disposition home or self-care (01) ==
LOC: LAB 16:23
PROVIDERS: PCP Internal Medicine; Referring Provider Internal Medicine; Visit Provider Internal Medicine
DX: Z79.01 Long term (current) use of anticoagulants (principal)
CPT/HCPCS: 36415; 85610

== ENCOUNTER 2024-04-19 11:00 | Outpatient (RCR) | payer MEDICARE, MEDICAID, SELFPAY ==
[2021-09-03 12:59] VITALS: BMI 43.4
--- NOTE | 2024-01-19 17:32 | HP.PTEVAL ---
Patient's Visit Information Visit Information Visit Information: NATHALIE HERMAN is a 63 year old F referred to Physical Therapy by [employer]. Lakshmi Garland with a diagnosis of THORACIC AND LUMBAR DEGENERATIVE DISC DISEASE. Date of Evaluation: 01/19/24 Physical Therapist: Denis Peralta, PT, Cert MDT, OCS Visit Plan Frequency: 2x /Week Duration: 4 Weeks Plan: PT INTERVENTIONS DLS ,POSTURAL EX'S ,LUMBAR FLEXION ,BLE STRENGTHENING AND MODALITIES NEEDED Subjective Subjective: This 63 y/o female presents to physical therapy with lumbar and thoracic pain with radicular symptoms to hamstrings to knee. Patient has had lumbar radiculopathy for ~ 1 year. Patient seen pain management patient had injection which helped. Recommended PT but was to start early but had Covid. Patient MRI scheduled 01.28 . Medication muscle relaxer and oxycodone . Aggravating 10 min to washes dishes,1/4 or less walking ,bening.lifting ,sitting 1 hr in recliner. Needs cane for gait. C/0 weakness in legs.Alleviating factors rest. Pain interferes with sleeping. Coughing/sneezing +. Bowel/bladder -. C/O paresthesia/tingling in feet. Patient has had PT in past . Patient has [employer] 5x week with laundry cooking ,cleaning. Patient needs assist with shower Patient has no recent trauma ,although fell 2022 several times with legs giving way had Rehab at [place].Patient pain causes deficits with ADLS and function. Patient goals to get legs stronger. Patient comorbities influences condition along with cervical 2006 ,lumbar surgery 220 SOCAIL: VOCATION: disability Pain Bilateral Back: Pain Intensity (Out of 10): 6 Pain Intensity Range: 10 Right Lower Extremity: Pain Intensity (Out of 10): 7 Pain Intensity Range: 10 Objective Objective: POSTURE: mild forward posture ,hips/knees flexed GAIT: ambulates with 2 point gait slow [place] with cane with decrease stance time right > left NEURO: C/O paresthesia/tingling LEGS right > left ,reflexes L3-4,L4-5,L5-S1 1/3 SYMMETRIES: align PALAPTION: unremarkable MMT: ( peak force) quads right 7.9,left 10.8 ,hip flexion right /left 0,hamstrings right 6.8 ,left 9.9 LUMBAR ROM: flexion mod loss ,extension severe loss ,side glides mod loss pain all planes THORACIC ROM: flexion mod loss ,rotation mod loss ,extension severe loss MMT: BUE 4-/5 ,EXCEPT SHOULDER 3+/5 Special Tests L/S Slump test left side: Negative L/S Slump test right side: Negative L/S Left Straight Leg Raise: Negative L/S Right Straight Leg Raise: Negative Lumbar Standing: Flexion - Mechanical Response: No effect Lumbar Standing: Flexion - Symptoms During Testing: Increases Lumbar Standing: Flexion - Symptoms After Testing: Worse Lumbar Standing: Extension - Mechanical Response: No effect Lumbar Standing: Extension - Symptoms During Testing: Increases Lumbar Standing: Extension - Symptoms After Testing: Worse Lumbar Standing: Right Side Glides - Mechanical Response: No effect Lumbar Standing: Right Side [place] - Symptoms During Testing: Increases Lumbar Standing: Right Side [place] - Symptoms After Testing: Worse Lumbar Standing: Left Side [place] - Mechanical Response: No effect Lumbar Standing: Left Side [place] - Symptoms During Testing: No effect Lumbar Standing: Left Side [place] - Symptoms After Testing: No effect Balance/Special Test Scores Oswestry Low Back Score: 39 Goals Goal 1:: Patient to be I with HEP for back Goal Time Frame: 4-6 Weeks Goal 2:: Patient to stand or walk > 15min with less pain to perform ADLS like washing dishes Goal Time Frame: 4-6 Weeks Goal 3:: Patient to demonstrate 50 % improvement with less pain and improved function with ADLS walking/staning Goal Time Frame: 4-6 Weeks Goal 4:: Patient to improve lumbar ROM for function of recovery to put on shoes Goal Time Frame: 4-6 Weeks Goal 5:: Patient to improve peak force quads/hams/hip by 5-10 # to improve function with gait Goal Time Frame: 4-6 Weeks Goal 6:: Patient to improve back oswestry score by 5 points to improve QOL Goal Time Frame: 4-6 Weeks Rehabilitation Potential Physical Therapy Diagnosis: This patient has lumbar radiculopathy with possible foraminal stenosis with pain with motion ,position worse with walking and standing thus benefit from skilled PT Rehabilitation Potential: Good Anticipated Interventions Patient/Client Instruction: Educate patient on: Condition and Plan of Care For the Purpose of:: To decrease pain, To increase ROM, To improve muscle performance and motor function, To improve ability to perform ADL's, To increase tolerance to activity/condition/position, To improve ability of physical actions for home/community/work/leisure, To improve health of tissue, To decrease soft tissue restriction, To increase flexibility/ROM, To improve endurance and To improve safety with gait Therapeutic Exercise to Include: Strength training, Endurance training, Balance training, Postural training, Flexibilty training, Active ROM and Dynamic Lumbar Stabilization Comment: BLE For the Purpose of:: To decrease pain, To increase ROM, To improve muscle performance and motor function, To improve ability to perform ADL's, To increase tolerance to activity/condition/position, To improve performance and independence with ADL's, To improve ability of physical actions for home/community/work/leisure, To improve gait and locomotor functions, To improve health of tissue, To decrease soft tissue restriction and To increase flexibility/ROM TENS: Yes IF ES: Yes Cryotherapy (ice pack, ice massage): Yes Thermo therapy (hot pack): Yes Ultrasound (thermal/non thermal): Yes For the Purpose of:: To decrease pain, To increase ROM, To improve nutrient delivery to tissue, To increase oxygenation perfusion and To improve health of tissue Text: Thank you for the opportunity to evaluate your patient. For Medicare and Medicare HMO plans, please review the plan of care and approve it. It will need to be FAXED BACK to us at [phone] for Medicare purposes. For Medicare only, by signing this I certify the plan of care. Please let me know if there are questions or concerns regarding this plan of care. Physician Signature: Date:
== END 2024-04-19 19:00 | disposition home or self-care (01) ==
LOC: PT 11:00
PROVIDERS: PCP Internal Medicine; Referring Provider Clinical Nurse Specialist Adult Health; Visit Provider Clinical Nurse Specialist Adult Health
DX: M51.36 Other intervertebral disc degeneration, lumbar region (principal); M51.34 Other intervertebral disc degeneration, thoracic region
CPT/HCPCS: 97110; 97162

== ENCOUNTER → 2024-04-26 | Outpatient (CLI) | payer MEDICARE, MEDICAID, SELFPAY ==
[2021-09-03 12:59] VITALS: BMI 43.4
--- NOTE | 2024-04-26 14:28 | BI_ITS ---
MAMMOGRAPHY - BILATERAL SCREENING REASON FOR EXAM: Female, 63 years old. Routine annual screening examination. PERTINENT HISTORY: Non-contributory. TECHNIQUE: Digital bilateral breast doris (3D mammographic acquisition) in the CC and MLO projections. 2-D mediolateral oblique (MLO) and craniocaudad (CC) views of both breasts were obtained. CAD: Full Field Digital Mammography with Computer Added Detection was performed. COMPARISON: Comparison is made with prior study November 21, 2022 and probably second 2020. FINDINGS: Breast Composition: The breasts are almost entirely fatty. There are no dominant masses or suspicious calcifications. Stable bilateral secretory calcifications. No other significant abnormalities are identified. There has been no significant change since the prior study. BI/SCRN MAMM (CAD)W/DORIS BILAT IMPRESSION: Stable bilateral screening mammogram. Yearly follow-up mammogram recommended. (A) ASSESSMENT CATEGORY: BIRADS Category 2: Benign. A letter regarding these results will be sent to the patient by the facility within 30 days. Approximately 10% of breast cancers are not detected by mammography. A normal mammogram should not delay biopsy of a clinically suspicious abnormality. [id number] Electronically Signed: Lon Fuchs MD at 15:46 EDT ,
== END | disposition home or self-care (01) ==
LOC: OPBD 14:28
PROVIDERS: PCP Internal Medicine; Referring Provider Internal Medicine; Visit Provider Internal Medicine
DX: Z12.31 Encounter for screening mammogram for malignant neoplasm of breast (principal)
CPT/HCPCS: 77063; 77067

== ENCOUNTER → 2024-05-03 | Outpatient (CLI) | payer MEDICARE, MEDICAID, SELFPAY ==
[2021-09-03 12:59] VITALS: BMI 43.4
--- NOTE | 2024-05-03 14:04 | CDU_ITS ---
Reason For Study: Carotid occlusion Rt. Velocities/BP Lt. Velocities/BP Prox CCA 84.4/8.8 cm/sec. Prox CCA 82.5/7.8 cm/sec. Mid CCA 73/9.7 cm/sec. Mid CCA 63.6/9.7 cm/sec. Dist CCA 47.5/9.7 cm/sec. Dist CCA 54.1/7.8 cm/sec. Prox ICA 43.7/8.8 cm/sec. Prox ICA 49.4/8.8 cm/sec. Mid ICA 52.2/11.6 cm/sec. Mid ICA 60.7/17.3 cm/sec. Dist ICA 80.6/21.1 cm/sec. Dist ICA 57.9/17.3 cm/sec. Rt. ICA/CCA = 1.10. Lt. ICA/CCA = 0.95. Prox ECA 78.7/6 cm/sec. Prox ECA 57.9/6 cm/sec. Rt. Vert. 42.8/9.7 cm/sec. Lt. Vert. 40/9.7 cm/sec. Right Extracranial There is intimal thickening but no significant atherosclerotic plaque noted in the right common carotid artery. There is heterogeneous, irregular atherosclerotic plaque noted in the right internal carotid artery. There is intimal thickening but no significant atherosclerotic plaque noted in the right external carotid artery. Antegrade flow is noted in the right vertebral artery. Left Extracranial There is intimal thickening but no significant atherosclerotic plaque noted in the left common carotid artery. There is heterogeneous, irregular atherosclerotic plaque noted in the left internal carotid artery. There is intimal thickening but no significant atherosclerotic plaque noted in the left external carotid artery. Antegrade flow is noted in the left vertebral artery. Procedure Carotid Duplex [id number]. This is a Carotid Duplex examination using B-mode, color flow and specral Doppler. Exam performed in department. VL/Carotid Duplex Ultrasound Interpretation Summary Mild (<50%) stenosis right extracranial internal carotid. Mild (<50%) stenosis left extracranial internal carotid. Patent and antegrade vertebrals bilaterally. Ordering Physician: Ophelia Soria Referring Physician: Ophelia Soria Performed By: Livier Espinoza RVT
== END | disposition home or self-care (01) ==
LOC: CVS 14:01
PROVIDERS: PCP Internal Medicine; Referring Provider Internal Medicine; Visit Provider Internal Medicine
DX: I65.23 Occlusion and stenosis of bilateral carotid arteries (principal)
CPT/HCPCS: 93880

== ENCOUNTER → 2024-06-15 05:00 | Outpatient (REF) | payer MEDICARE, MEDICAID, SELFPAY ==
[2021-09-03 12:59] VITALS: BMI 43.4
[2024-06-15 08:21] LABS: INR Fingerstick 1.3; Prothrombin Time Fingerstick 14.4 SEC (11.7-14.9)
== END ==
LOC: OLS.WCC 05:00
PROVIDERS: PCP Internal Medicine; Visit Provider Family Medicine
DX: I82.409 Acute embolism and thrombosis of unspecified deep veins of unspecified lower extremity (principal)
CPT/HCPCS: 36416; 85610

== ENCOUNTER → 2024-06-23 | Outpatient (REF) | payer MEDICARE, MEDICAID, SELFPAY ==
[2021-09-03 12:59] VITALS: BMI 43.4
[2024-06-23 08:46] LABS: Hemoglobin 13.1 g/dL (12.0-15.0); Mean Corp Hgb Conc 31.2 g/dL (32-36); Mean Corpuscular Hgb 28.9 pg (27.0-32.0); Mean Corpuscular Volume 92.5 fL (81-99); Mean Platelet Vol. 10.9 fl (6.2-12.0); Platelet Count 284 K/mm3 (150-450); RBC Distribution Width CV 14.9 % (11.6-14.6); RBC Distribution Width SD 50.9 fl (35.1-43.9); Red Blood Count 4.54 M/mm3 (4.2-5.4); White Blood Count 7.1 K/mm3 (4.4-11.0)
[2024-06-23 09:03] LABS: Anion Gap 5 (5-15); BUN 19 mg/dL (7-18); BUN/Creat Ratio 20.8 RATIO (10-20); Calcium,Total 9.3 mg/dL (8.5-10.1); Chloride 104 mmol/L (98-107); Creatinine, Serum 0.91 mg/dL (0.55-1.02); EST Glomerular Filtration Rate 66 mL/min (>60); Est Glom Filt Rate - Afr Amer 80 mL/min (>60); Glucose 126 mg/dL (74-106); Potassium 4.3 mmol/L (3.5-5.1); Sodium Level 136 mmol/L (136-145)
== END ==
LOC: OLS.WCC 05:00
PROVIDERS: PCP Internal Medicine; Visit Provider Family Medicine
DX: I10 Essential (primary) hypertension (principal)
CPT/HCPCS: 36415; 80048; 85027

== ENCOUNTER → 2024-08-14 | Outpatient (CLI) | payer MEDICARE, MEDICAID, SELFPAY ==
[2021-09-03 12:59] VITALS: BMI 43.4
--- NOTE | 2024-08-14 10:53 | US_ITS ---
EXAM: US RIGHT LOWER EXTREMITY NON-VASCULAR, COMPLETE CLINICAL INDICATION: rule out hematoma- right buttocks pain TECHNIQUE: Real-time ultrasound scan of the right lower extremity with image documentation. COMPARISON: No relevant prior studies available. FINDINGS: SOFT TISSUES: Within the right buttocks superficial to the underlying musculature, there is a 1.8 cm ill-defined hypoechoic region without internal vascular flow. No foreign body. US/Abdomen Limited IMPRESSION: Within the right buttocks superficial to the underlying musculature, there is a 1.8 cm ill-defined hypoechoic region without internal vascular flow. Although nonspecific, this may be a hematoma or abscess. Electronically Signed: Travis Baldwin DO at 14:32 EST ,
== END | disposition home or self-care (01) ==
PROVIDERS: PCP Internal Medicine; Referring Provider Internal Medicine; Visit Provider Internal Medicine
DX: R22.2 Localized swelling, mass and lump, trunk (principal)
CPT/HCPCS: 76705; 76999

== ENCOUNTER 2024-09-15 18:21 | Observation (INO) | payer MEDICARE, MEDICAID, SELFPAY ==
[2021-09-03 12:59] VITALS: BMI 43.4
[2024-09-15] VITALS (11 sets, daily range): BP systolic 90–118; BP diastolic 47–70; PULSE 58–64; RESP 12–20; TEMP 36.6–37; O2SAT 92–98; BMI 39.7; BMI 42.1
--- NOTE | 2024-09-15 18:25 | EKG12_ITS ---
Test Reason : stroke alert Blood Pressure : */* mmHG Vent. Rate : 58 BPM Atrial Rate : 58 BPM P-R Int : 304 ms QRS Dur : 152 ms QT Int : 462 ms P-R-T Axes : 41 -36 33 degrees QTcB Int : 453 ms Sinus bradycardia with 1st degree A-V block lafb Right bundle branch block Abnormal ECG Confirmed by Maxwell Hall ([id number]), supervising editor news reel JIM LAKHANI ([id number]) on 09/17/2024 10:41:04 AM Referred By: Neetu Confirmed By: Maxwell Hall
--- NOTE | 2024-09-15 18:25 | CT_ITS ---
We are attempting to reach an attending provider to discuss findings. An addendum with communication details will be sent when the communication is complete. STUDY: CTA HEAD AND NECK WITH CONTRAST REASON FOR EXAM: Female, 63 years old. Neuro deficit, acute, stroke suspected RADIATION DOSAGE (If Supplied By Facility): CTDIvol = ( 23.13 ) mGy, DLP = ( 829.37 ) mGycm TECHNIQUE: CT angiography was performed with a multi-detector CT scanner. Data acquisition was obtained from the skull base through the vertex following intravenous administration of 100mL Isovue-370. MIP images were reconstructed from the axial data set. Post-processing of the angiographic images was performed, with multiplanar reformation and 3D reconstruction. Individualized dose optimization techniques were used for this CT. COMPARISON: No relevant priors. FINDINGS: Normal bilateral petrous carotid arteries. There is calcified plaque formation of the right cavernous carotid artery, without a cross-sectional luminal stenosis. There is calcified plaque formation of the left cavernous carotid artery, without a cross-sectional luminal stenosis. Normal right A1 segments of the anterior cerebral artery. Normal left A1 segments of the anterior cerebral artery. Normal intact anterior communicating artery (ACOM). Normal bilateral A2 segments of the anterior cerebral arteries. Normal right M1 and M2 segments of the middle cerebral arteries, with a normal M1 bifurcation. Normal left M1 and M2 segments of the middle cerebral arteries, with a normal M1 bifurcation. There is non-visualization of the right posterior communicating artery (PCOM). Normal left posterior communicating artery (PCOM). Normal bilateral vertebral arteries. Normal basilar artery with a normal basilar bifurcation. The visualized bilateral superior cerebellar (SCA) arteries are normal. Normal bilateral P1, P2 and visualized P3 segments of the posterior cerebral arteries. There is no demonstrated aneurysm of the [place] of [place]. There is no demonstrated abnormality of the visualized brain. AORTIC ARCH: Normal visualized aortic arch. Normal origins of the brachiocephalic, left common carotid, and left subclavian arteries. RIGHT CAROTID ARTERIES: Normal right common carotid artery (CCA). There is mild atherosclerotic plaque formation with minimal narrowing of the right carotid bulb. There is mild atherosclerotic plaque formation of the origin of the right internal carotid artery with less than 50% cross sectional diameter stenosis. Normal visualized cervical portion of the right internal carotid artery. Normal origin of the right external carotid artery (ECA). LEFT CAROTID ARTERIES: Normal left common carotid artery (CCA). There is mild atherosclerotic plaque formation with minimal narrowing of the left carotid bulb. There is mild atherosclerotic plaque formation of the origin of the left internal carotid artery with less than 50% cross sectional diameter stenosis. Normal visualized cervical portion of the left internal carotid artery. Normal origin of the left external carotid artery (ECA). VERTEBRAL ARTERIES: Normal bilateral vertebral arteries. Other: There is degenerative and postoperative change of the spine. There is corpectomy and anterior and posterior fusion from C3 through C7. 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 CT/STROKE CTA Head AND Neck W/Con IMPRESSION: There is plaque with mild, less than 50%, narrowing of the internal carotid arteries. There is no hemodynamically significant internal carotid artery stenosis. No intracranial aneurysm or large vessel occlusion. Electronically Signed: Joon Grove MD at 18:57 EST ,
--- NOTE | 2024-09-15 18:25 | CT_ITS ---
STUDY: CT BRAIN WITHOUT CONTRAST REASON FOR EXAM: Female, 63 years old. Neuro deficit, acute, stroke suspected RADIATION DOSAGE (If Supplied By Facility): CTDIvol = ( ) mGy, DLP = ( ) mGycm TECHNIQUE: Transaxial CT imaging of the brain was performed without administration of intravenous contrast material. Individualized dose optimization techniques were used for this CT. COMPARISON: September 25, 2023 FINDINGS: There is increased size of 2.8 cm mass of the right parotid gland. Normal calvarium. There is mild cerebral atrophy with widening of the extra-axial spaces and ventricular dilatation. There are areas of decreased attenuation within the white matter tracts of the supratentorial brain, consistent with microvascular disease changes. Normal basal ganglia and thalami. Normal brainstem. Normal cerebellum. There is no intracranial hemorrhage. There are no findings of an acute ischemic infarction. Normal visualized paranasal sinuses. CT/STROKE Brain/Head without Cont IMPRESSION: Chronic involutional changes of the brain. 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 Recommend ENT consultation. N.B. : The above Results were Read Back by Joon Grove MD to Jaya Douglass MD, and understanding confirmed on 09/15/2024 18:48:32 (ET). Electronically Signed: Joon Grove MD at 18:38 EST ,
--- NOTE | 2024-09-15 18:28 | EDS_ITS ---
HPI History of Present Illness Chief Complaint: Stroke Alert Informant: patient and EMS Onset/Context/Timing Onset: Today and Hours Context: Gradual Onset Timing: Continuous Quality and Location: Positive for Right Arm Weakness, Right Leg Weakness and Slurred Speech Current Severity: Moderate Maximum Severity: Moderate Associated Symptoms Associated Symptoms: Positive for Headache; Negative for Nausea, Vomiting or Chest Pain Narrative Narrative: 63-year-old female history of COPD, DVT and PEs on Coumadin. She is also diabetic. Says she was not feeling well this morning. Around noon she started having tingling to her face and around 2:00 she started having weakness to her right upper and lower extremity. Called the squad on their evaluation bring to the hospital they called a stroke team. Patient denies any recent illness. States she has had a bad headache today. Prior similar symptoms: No Recent Illness/Hospitalization: No PFSH PFSH Medical History Rectal bleeding Subtherapeutic international normalized ratio (INR) Peripheral neuropathy Positive FIT (fecal immunochemical test) History of transcatheter aortic valve replacement (TAVR) (~04/19/21) COVID-19 Depression Anxiety Discoloration of skin History of steroid therapy Insulin dependent diabetes mellitus Diabetes Arthritis High cholesterol Pulmonary embolism Easy bruising Excessive bleeding Restless legs Back pain Migraine headache TIA (transient ischemic attack) Non-smoker BiPAP (biphasic positive airway pressure) dependence On home oxygen therapy Shortness of breath on exertion Leg cramps History of pain when walking History of edema History of stress test Hx of transesophageal echocardiography (YOLANDA) for monitoring History of echocardiogram Cardiology follow-up encounter Rotator cuff arthropathy of right shoulder History of DVT (deep vein thrombosis) Back pain with sciatica Nonrheumatic aortic (valve) stenosis Essential hypertension Carotid artery disease Atherosclerotic heart disease of [place] coronary artery without angina pectoris Personal history of anaphylaxis Bilateral carotid bruits Body mass index 45.0-49.9, adult Diastolic heart failure COPD (chronic obstructive pulmonary disease) CHELSEY treated with BiPAP History of pulmonary embolism Morbid obesity Type 2 diabetes mellitus Asthma Home Medications ?Medication ?Instructions ?Recorded ?Last Taken ?Type fluoxetine 20 mg capsule 40 mg PO DAILY anxiety 01/26/14 04/05/21 History calcium 600 mg-D3 800 unit-mag 40 1 ea PO DAILY vitamins 05/27/16 04/05/21 History hf-zxim-csde-angel-boron chew tablet fenofibrate nanocrystallized 145 72.5 mg PO QHS cholesterol 04/26/19 04/04/21 History mg tablet trazodone 50 mg tablet 50 mg PO QHS sleep 08/09/19 04/04/21 History epinephrine 0.3 mg/0.3 mL 0.3 mg (0.3 mL) IM X1 PRN 01/18/20 Unknown Rx injection, auto-injector Anaphylaxis #1 ea albuterol sulfate 2.5 mg/3 mL 2.5 mg (3 mL) inhalation Q2H PRN 04/24/20 07/02/21 09:00 Rx (0.083 %) solution for nebulization PRN dyspnea, wheezing #180 mL albuterol sulfate 90 mcg/actuation 2 inh inhalation Q4H PRN PRN Sob 04/24/20 04/29/22 Rx aerosol inhaler &/Or Wheezing #18 grams montelukast 10 mg tablet 10 mg PO DAILY allergies/asthma 12/07/20 04/05/21 Rx #30 tabs alendronate 70 mg tablet 70 mg PO WE bone health 12/21/20 08/07/22 History nystatin 100,000 unit/gram topical 1 applic topical BID PRN PRN YEAST 12/21/20 04/05/21 History powder beclomethasone dipropionate 80 1 inh inhalation BID Asthma 03/22/21 07/02/21 09:00 History mcg/actuation HFA breath activated aerosol budesonide-formoterol HFA 160 2 puff inhalation BID asthma 03/22/21 04/29/22 History mcg-4.5 mcg/actuation aerosol inhaler ipratropium 0.5 mg-albuterol 3 mg 3 ml inhalation BID asthma 03/22/21 04/05/21 History (2.5 mg base)/3 mL nebulization soln cyanocobalamin (vitamin B-12) 100 100 mcg PO DAILY supplement 04/05/21 04/05/21 History mcg tablet (Vitamin B-12) melatonin 10 mg tablet 12 mg PO QHS sleep 04/05/21 04/04/21 History pregabalin 150 mg capsule 150 mg PO TID nerve pain 04/05/21 08/11/22 History meclizine 25 mg tablet 25 mg PO DAILY PRN Vertigo 05/04/21 Unknown History docusate sodium 100 mg capsule 100 mg PO DAILY stool softener 08/17/21 Unknown History magnesium 250 mg tablet 400 mg PO DAILY supplement 08/17/21 Unknown History ascorbate calcium (vitamin C) 500 1 g PO DAILY vitamin 11/07/21 09/29/23 History mg tablet chromium picolinate 200 mcg tablet 200 mcg PO DAILY supplement 11/07/21 Unknown History clobetasol 0.05 % topical cream 1 applic topical PRN PRN 11/07/21 Unknown History RASH/ITCHING coconut oil 1,000 mg capsule 1,000 mg PO DAILY supplement 11/07/21 Unknown History levocetirizine 5 mg tablet 5 mg PO DAILY allergies 11/07/21 Unknown History vitamin K2 45 mcg capsule 100 mcg PO DAILY vitamin 11/07/21 Unknown History dapagliflozin propanediol 10 mg 10 mg PO DAILY diabetes 08/11/22 08/11/22 History tablet (Farxiga) pitavastatin calcium 4 mg tablet 4 mg PO DAILY cholesterol 08/11/22 Unknown History (Livalo) multivitamin (Daily Multi-Vitamin 1 tab PO DAILY vag itching 06/12/23 Unknown History tablet) omeprazole 40 mg capsule,delayed 40 mg PO BID gerd 06/12/23 Unknown History release quercetin 500 mg capsule 500 mg PO DAILY supplement 06/12/23 Unknown History semaglutide 1 mg/dose (4 mg/3 mL) 1 mg subcut ECHEVARRIA diabetes 06/12/23 Unknown History subcutaneous pen injector (Ozempic) tiotropium bromide 18 mcg capsule 18 mcg inhalation DAILY asthma 06/12/23 Unknown History with inhalation device erenumab-aooe 70 mg/mL 70 mg subcut QMONTH ordered #1 06/13/23 Unknown Rx subcutaneous auto-injector mL (Aimovig Autoinjector) rizatriptan 10 mg tablet (Maxalt) 10 mg PO Q2H PRN migraine headache 06/13/23 Unknown Rx #10 tabs acetaminophen 500 mg tablet 1,000 mg PO Q8 PRN pain 08/25/23 Unknown History azelastine 137 mcg-fluticasone 50 2 spray intranasal BID allergy 08/25/23 Unknown History mcg/spray nasal spray cholecalciferol (vitamin D3) 125 125 mcg PO DAILY vitamin-self care 08/25/23 Unknown History mcg (5,000 unit) tablet (Vitamin D3) sennosides 8.6 mg tablet (senna) 17.2 mg (2 x 8.6 mg) PO BID stool 09/03/23 Unknown Rx softner #120 tabs Lactobacillus acidophilus 1 tab PO DAILY Supplement 09/29/23 Unknown History (Acidophilus chewable tablet) black seed oil 10,000 mg PO DAILY unknown 09/29/23 Unknown History insulin glargine U-300 conc 300 50 unit subcut BID DIABETES 09/29/23 Unknown History unit/mL (1.5 mL) subcutaneous pen (Toujeo SoloStar U-300 Insulin) ondansetron 4 mg disintegrating 4 mg PO DAILY PRN nausea 09/29/23 Unknown History tablet oxycodone-acetaminophen 5 mg-325 1 tab PO BID pain 09/29/23 Unknown History mg tablet sennosides 8.6 mg-docusate sodium 2 tab-cap PO DAILY PRN constipation 09/29/23 Unknown History 50 mg tablet zinc 100 mg tablet 100 mg PO DAILY supplement 09/29/23 Unknown History Hydrocortisone 2.5%/lidocaine 5% #30 ea 10/09/23 Unknown Rx suppository (cmpd) diltiazem HCl 120 mg 120 mg PO .COMPLEX high blood 02/02/24 Unknown History capsule,extended release 24 hr pressure (Cardizem CD) warfarin 10 mg tablet [address] Soria Manages. 02/02/24 Unknown History diltiazem HCl 240 mg 240 mg PO QDAY 02/16/24 Unknown History capsule,extended release 24 hr furosemide 40 mg tablet 80 mg PO BID diuresis 02/16/24 Unknown History spironolactone 50 mg tablet 50 mg PO DAILY #30 tabs 02/16/24 Unknown Rx potassium chloride 10 mEq 10 meq PO DAILY #90 caps 02/25/24 Unknown Rx capsule,extended release doxycycline hyclate 100 mg capsule 100 mg PO BID #20 caps 02/28/24 Unknown Rx methocarbamol 500 mg tablet mg PO .QID 08/17/24 Unknown History polyethylene glycol 3350 17 gram 17 g PO QDAY self care 08/17/24 Unknown History oral powder packet budesonide-formoterol HFA 80 1 inh inhalation BID 09/15/24 Unknown History mcg-4.5 mcg/actuation aerosol inhaler (Breyna) cyclobenzaprine 10 mg tablet 10 mg PO BID PRN PRN muscle spasm 09/15/24 Unknown History losartan 50 mg tablet 50 mg PO BID 09/15/24 Unknown History oxycodone 5 mg tablet 5 mg PO 4X/DAY PRN PRN pain 09/15/24 Unknown History polyethylene glycol 3350 17 8.5 g PO QDAY PRN constipation 09/15/24 Unknown History gram/dose oral powder (ClearLax) tiotropium bromide inhalation DAILY PRN SOB 09/15/24 Unknown History tizanidine 4 mg capsule 4 mg PO BID PRN muscle spasticity 09/15/24 Unknown History Allergy/AdvReac Type Severity Reaction Status Date / Time clindamycin Allergy Rash Verified 08/17/24 13:29 erythromycin base Allergy Rash Verified 08/17/24 13:29 (Erythromycin Base) omalizumab (From Xolair) Allergy Chest Verified 08/17/24 13:29 tightness Penicillins Allergy Rash Verified 08/17/24 13:29 sulfamethoxazole (From Allergy Chest Verified 08/17/24 13:29 Bactrim) tightness trimethoprim (From Bactrim) Allergy Chest Verified 08/17/24 13:29 tightness Sulfa (Sulfonamide AdvReac Unknown Unknown Verified 08/17/24 13:29 Antibiotics) Family History Father Heart disease Diabetes CAD (coronary artery disease) Mother CAD (coronary artery disease) CVA (cerebral vascular accident) Diabetes Brother CAD (coronary artery disease) CVA (cerebral vascular accident) Diabetes Unknown Cancer Grandmother CVA (cerebral vascular accident) Diabetes Grandfather CVA (cerebral vascular accident) Grandmother Myocardial infarction Brother Diabetes Sister Diabetes Surgical History History of laminectomy History of colonoscopy History of cardiac catheterization Aortic valve replaced History of left heart catheterization (LHC) (~01/19/21) H/O lumbosacral spine surgery History of rotator cuff surgery Hx of appendectomy History of hernia repair History of section History of neck surgery Social History household members: spouse housing: apartment pets and animals: Yes Smoking Status: Never smoker second hand exposure: No alcohol intake: current alcohol intake frequency: a few times a week substance use type: does not use caffeine: No what type of physical activity do you participate in: none do you feel safe at home: Yes ROS ROS ED ROS Narrative Headache. Constitutional Constitutional ED: Denies chills or fever(s) Eyes Eyes: Denies blurry vision ENT ENT ED: Denies ear pain Cardiovascular Cardiovascular: Denies chest pain Respiratory/Chest Respiratory/Chest: Denies cough Gastrointestinal Gastrointestinal: Denies abdominal pain Genitourinary Genitourinary ED: Denies dysuria Musculoskeletal Musculoskeletal: Denies arthralgias Integumentary Denies abscess Neurologic Neurologic: Reports headache(s) Psychiatric Psychiatric: Denies anxiety or depression Endocrine Endocrinology: Denies polydipsia Hematologic/Lymphatic Hematologic/Lymphatic: Denies lymphadenopathy Allergic/Immunologic Allergic/Immunologic ED: Denies mouth swelling or urticaria EXAM Physical Exam Narrative Exam Narrative: 63-year-old female brought in by squad in her car and the ambulance bay vital signs are pending. H EENT exam. Reactive light. Extra motions intact. No facial droop. Her speech might be slightly slow. It is audible. Neck nontender. Lungs clear. Heart regular rate and rhythm. No murmur. Chest wall nontender. Abdomen soft nontender. 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 She has weakness of dorsi flexion of her right leg and unable to lift it off the bed. She is awake and alert. Answering questions and following commands. Her NIH score is Const Vital Signs: 09/15/24 18:21 09/15/24 18:26 09/15/24 18:26 Temperature 97.8 F 98.6 F Temperature Source Oral Oral Pulse Rate 60 64 64 Respiratory Rate 18 18 18 Blood Pressure 113/60 118/58 L 118/58 L Blood Pressure Mean 77 78 78 Pulse Ox 92 94 96 Oxygen Delivery Method Room Air Room Air Room Air Oxygen Flow Rate (L/min) 09/15/24 18:31 09/15/24 18:37 09/15/24 18:45 Temperature 98.4 F Temperature Source Oral Pulse Rate 62 58 L Respiratory Rate 12 12 Blood Pressure 113/60 113/60 Blood Pressure Mean 77 77 Pulse Ox 93 96 Oxygen Delivery Method Room Air Room Air Nasal Cannula Oxygen Flow Rate (L/min) 2 09/15/24 18:55 Temperature Temperature Source Pulse Rate 58 L Respiratory Rate 12 Blood Pressure 108/63 Blood Pressure Mean 78 Pulse Ox 96 Oxygen Delivery Method Nasal Cannula Oxygen Flow Rate (L/min) 2 Positive well nourished and well developed; Negative for cachectic, contractures or unkempt General Appearance ED: well developed; Negative for unkempt, cachectic, contractures or NAD Nutritional Appearance: Negative for cachectic HEENT Reports moist mucous membranes atraumatic; Negative for trauma Eyes PERRL and EOMs intact bilaterally General Eye ED: Negative for pale conjunctiva Neck no lymphadenopathy, supple and no JVD General: Negative for tenderness Chest Wall inspection of chest normal and palpation of chest normal Resp normal respiratory effort and clear to auscultation bilaterally Effort and Inspection: Negative for retractions Auscultation: Negative for rales, rhonchi, wheezes or diminished lung sounds Cardio no murmurs Rate: regular rate Rhythm: regular rhythm GI normal to inspection, nondistended, normoactive bowel sounds, soft to palpation, non-tender, non-distended and no masses Auscultation: normoactive bowel sounds Palpation: Negative for tender, guarding, mass or rebound tenderness present Back/Spine no CVA tenderness General Back: Negative for CVA tenderness Cervical Spine: Negative for cervical spine tenderness Thoracic Spine / Upper Back: Negative for thoracic spinal tenderness Lumbar Spine / Lower Back: Negative for lumbar spinal tenderness Extremity Negative for normal to inspection Extremity Narrative: Right arm weakness with drift. 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 Right lower extremity weakness with decreased dorsi and plantarflexion. Difficulty lifting leg off the bed. General Extremety ED: Negative for deformity, edema or tenderness General Extremity: Negative for deformity or edema Neuro oriented x3 and CN's II-XII intact bilaterally Sensorium / Orientation: alert, oriented to person, oriented to place and oriented to time; Negative for orientation impaired or confused Speech: Negative for speech normal Motor Exam: strength abnormal; Negative for strength 5/5 throughout Psych mental status grossly normal Appearance: Negative for unkempt Mood & Affect: Negative for depressed Attention / Concentration: Negative for other Skin no wounds General Skin Exam: Negative for jaundice Lesions: no lesions Rashes: no rashes Trauma: Negative for abrasion NIHSS NIHSS Initial: 1a Level of Consciousness: 0 1b LOC Questions (Score 2 if aphasic/stupor): 0 1c LOC Commands (Only score 1st attempt): 0 2 Best Gaze (If aphasic, use reflexive mvmts.): 0 3 Visual: 0 4 Facial Palsy: 0 5 Motor Arm Right (UN = amputation/fusion): 3 5 Motor Arm Left: 0 6 Motor Leg Right: 3 6 Motor Leg Left: 0 7 Limb ataxia (Only + if out of proportion): 1 8 Sensory (Aphasia/stupor=0 or 1, coma=2): 0 9 Best Language: 1 10 Dysarthria (mute, coma=2, intubated=UN): 0 11 Extinction and Inattention (only scored if +): 0 Total Score: 8 MDM MDM MDM Narrative Medical decision making narrative: 63-year-old female on Coumadin with neurologic symptoms consistent with a stroke with right upper and lower extremity weakness. To be placed on stroke protocol. The initial symptoms started around noon so she is about 6 and half hours into her symptoms. Plus she is on the blood thinner Coumadin. She remained the stroke team. Should be discussed with the neurologist from [facility]. I discussed the patient's exam and presentation with the ICU neurologist around 7 PM. Patient is currently not a candidate due to time time course of the symptoms. Patient will be admitted to our facility. Repeat exam patient doing well at 7:16 PM. No significant change. Hospitalist on page for admission for stroke workup. History & Record Review Discussion w/independent historian: EMS personnel and Patient Additional record(s) reviewed:: Prior inpatient record, Prior outpatient record and Prior ED visit Lab Data Attestation: I reviewed the patient's lab results. Lab results narrative: CBC normal. White count 9. H&H 14 and 44. Platelets 238. Initial CAT scan of the brain without contrast as read by the radiologist showed no significant acute abnormality. No bleed. No obvious stroke. PT/INR are 21 and 1.9 PTT 37. Electrolytes show gap 5. BUN of 29 creatinine 1.4. Glucose 138. Troponin 16. Chest x-ray unremarkable. CTA brain no acute abnormality. No large occlusion per the radiologist. CT brain no bleed or significant stroke. Labs: Laboratory Results - last 24 hr 09/15/24 18:30 WBC 9.6 RBC 4.97 Hgb 14.7 Hct 44.2 MCV 88.9 MCH 29.6 MCHC 33.3 RDW Std Deviation 47.7 H RDW Coeff of Carmencita 14.7 H Plt Count 238 MPV 10.6 Immature Gran % (Auto) 1.100 H Neut % (Auto) 68.2 Lymph % (Auto) 19.3 [place] % (Auto) 9.7 Eos % (Auto) 0.9 Baso % (Auto) 0.8 Absolute Neuts (auto) 6.6 Absolute Lymphs (auto) 1.85 Nucleated RBC % 0 PT 21.8 H INR 1.9 APTT 37.0 H Sodium 137 Potassium 5.0 Chloride 106 Carbon Dioxide 26.0 Anion Gap 5 BUN 29 H Creatinine 1.40 H Estim Creat Clear Calc 47.95 Est GFR (MDRD) Af Amer 49 L Est GFR (MDRD) Non-Af 40 L BUN/Creatinine Ratio 20.7 H Glucose 138 H Calcium 9.4 Troponin I High Sens 16 Radiography Diagnostic Testing: Clinical Impression(s) from Imaging Studies Head/Neck CTA 09/15/24 18:25 IMPRESSION: There is plaque with mild, less than 50%, narrowing of the internal carotid arteries. There is no hemodynamically significant internal carotid artery stenosis. No intracranial aneurysm or large vessel occlusion. Electronically Signed: Joon Grove MD at 18:57 EST , ADDENDUM: 09/15/24 1905 IMPRESSION: There is plaque with mild, less than 50%, narrowing of the internal carotid arteries. There is no hemodynamically significant internal carotid artery stenosis. No intracranial aneurysm or large vessel occlusion. N.B. : The above Results were Read Back by Joon Grove MD to Jaya Douglass MD, and understanding confirmed on 09/15/2024 18:58:34 (ET). Electronically Signed: Joon Grove MD at 18:57 EST , Rhythm Strip Rhythm Strip: Sinus Rhythm Rate: 58 Ectopy: None EKG Initial EKG: Attestation: I personally reviewed and interpreted this EKG as follows: Interpretation: Sinus Rhythm, No Acute Injury Pattern and Sinus Bradycardia Comments: Sinus bradycardia rate of 58. First-degree [place]. [id number]. No acute signs of [place] or ischemia. Discharge Plan Triage Chief Complaint: Stroke Alert ED Provider: Jaya Douglass Dx/Rx/DC Orders Clinical Impression: Stroke, Chronic anticoagulation, History of deep vein thrombosis, Acute right- sided weakness, History of diabetes mellitus Prescriptions: No Action trazodone 50 mg tablet 50 mg PO QHS albuterol sulfate 2.5 mg /3 mL (0.083 %) solution for nebulization 2.5 mg INHALATION Q2H PRN PRN (Reason: dyspnea, wheezing) Qty: 180 6RF albuterol sulfate 90 mcg/actuation HFA aerosol inhaler 2 inh INHALATION Q4H PRN PRN (Reason: Sob &/Or Wheezing) Qty: 18 6RF montelukast 10 mg tablet 10 mg PO DAILY Qty: 30 6RF alendronate 70 mg tablet 70 mg PO WE nystatin 100,000 unit/gram powder 1 applic TOPICAL BID PRN PRN (Reason: YEAST) meclizine 25 mg tablet 25 mg PO DAILY PRN (Reason: Vertigo) magnesium 250 mg tablet 400 mg PO DAILY levocetirizine 5 mg tablet 5 mg PO DAILY clobetasol 0.05 % cream 1 applic topical PRN PRN (Reason: RASH/ITCHING) chromium picolinate 200 mcg tablet 200 mcg PO DAILY coconut oil 1,000 mg capsule 1,000 mg PO DAILY ascorbate calcium (vitamin C) 500 mg tablet 1 g PO DAILY vitamin K2 45 mcg capsule 100 mcg PO DAILY (DME) Hydrocortisone 2.5%/lidocaine 5% suppository (cmpd) Suppository See Rx Instructions .Route Qty: 30 1RF Rx Instructions: insert rectally twice daily x 2 weeks diltiazem HCl 240 mg capsule,extended release 24hr 240 mg PO QDAY spironolactone 50 mg tablet 50 mg PO DAILY Qty: 30 11RF Rx Instructions: Take at evening meal with Losartan polyethylene glycol 3350 17 gram powder in packet 17 g PO QDAY Rx Instructions: OTC methocarbamol 500 mg tablet PO .QID fluoxetine 20 MG capsule 40 mg PO DAILY Patient Comments: Depression/anxiety docusate sodium 100 mg capsule 100 mg PO DAILY Patient Comments: Stool softner [id number]-afvk-boron 1 EACH tablet,chewable 1 ea PO DAILY fenofibrate nanocrystallized 145 MG tablet 72.5 mg PO QHS ipratropium-albuterol 0.5 mg-3 mg(2.5 mg base)/3 mL solution for nebulization 3 ml INHALATION BID Rx Instructions: Continue until re-evaluation per pulmonary with possible transition back to home regimen at that time. budesonide-formoterol 160-4.5 mcg/actuation HFA aerosol inhaler 2 puff INHALATION BID beclomethasone dipropionate 80 mcg/actuation HFA aerosol breath activated 1 inh inhalation BID furosemide 40 mg tablet 80 mg PO BID Rx Instructions: take on Friday, Friday, Friday cyanocobalamin (vitamin B-12) [Vitamin B-12] 100 mcg Tablet 100 mcg PO DAILY pregabalin 150 mg capsule 150 mg PO TID melatonin 10 mg Tablet 12 mg PO QHS pitavastatin calcium [Livalo] 4 mg tablet 4 mg PO DAILY Farxiga 10 mg tablet 10 mg PO DAILY Ozempic 1 mg/dose (4 mg/3 mL) pen injector 1 mg subcut ECHEVARRIA omeprazole 40 mg capsule,delayed release(DR/EC) 40 mg PO BID tiotropium bromide 18 mcg capsule, w/inhalation device 18 mcg inhalation DAILY Rx Instructions: puncture 1 cap using device; one dose = 2 inhalations multivitamin [Daily Multi-Vitamin] Tablet 1 tab PO DAILY quercetin 500 mg capsule 500 mg PO DAILY rizatriptan [Maxalt] 10 mg tablet 10 mg PO Q2H PRN (Reason: migraine headache) Qty: 10 0RF Rx Instructions: do not exceed 3 doses per 24 hrs Aimovig Autoinjector 70 mg/mL auto-injector 70 mg subcut QMONTH Qty: 1 0RF Patient Comments: pt requeste to stop taking Rx Instructions: per patient's normal routine. cholecalciferol (vitamin D3) [Vitamin D3] 125 mcg (5,000 unit) tablet 125 mcg PO DAILY azelastine-fluticasone 137-50 mcg/spray spray,non-aerosol 2 spray intranasal BID Rx Instructions: administer into each nostril acetaminophen 500 mg Tablet 1,000 mg PO Q8 PRN (Reason: pain) sennosides [senna] 8.6 mg Tablet 17.2 mg PO BID Qty: 120 0RF Rx Instructions: OTC Toujeo SoloStar U-300 Insulin 300 unit/mL (1.5 mL) insulin pen 50 unit SUBCUT BID Patient Comments: INJECT 56 [id number] JUNIOR Rx Instructions: TOULUCYO ondansetron 4 mg tablet,disintegrating 4 mg PO DAILY PRN (Reason: nausea) oxycodone-acetaminophen 5-325 mg tablet 1 tab PO BID sennosides-docusate sodium 8.6-50 mg tablet 2 tab-cap PO DAILY PRN (Reason: constipation) black seed oil 10,000 mg PO DAILY Acidophilus Tablet,Chewable 1 tab PO DAILY Patient Comments: 175 mg tab zinc 100 mg tablet 100 mg PO DAILY doxycycline hyclate 100 mg capsule 100 mg PO BID Qty: 20 0RF epinephrine 0.3 mg/0.3 mL auto-injector 0.3 mg IM X1 PRN (Reason: Anaphylaxis) Qty: 1 0RF diltiazem HCl [Cardizem CD] 120 mg capsule,extended release 24hr 120 mg PO .COMPLEX Patient Comments: as directed by doctor Rx Instructions: 120 mg orally daily PRN BP > 170 per PCP.; warfarin 10 mg tablet 10 mg PO DAILY potassium chloride 10 mEq capsule, extended release 10 meq PO DAILY Qty: 90 3RF Primary Care Provider: Ophelia Soria Referrals: Ophelia Soria DO [Primary Care Provider] - Print Language: Colombian Disposition Disposition: Acute Care Hospital [facility]
--- NOTE | 2024-09-15 18:35 | ED.RN ---
CALLED [facility] BACK, THEY STATE NEUROLOGIST IS ON PHONE WITH ANOTHER STROKE WILL BEAM IN SOON POSSIBLE
[2024-09-15 18:39] LABS: Absolute Lymphocyte Count 1.85 X10^3/uL (0.83-4.51); Absolute Neutrophil Count 6.6 X10^3/uL (2.0-7.7); Basophil# 0.08 X10^3/uL; Basophil% 0.8 % (0-1); Eosinophil# 0.09 X10^3/uL; Eosinophils% 0.9 % (0-5); Hematocrit 44.2 % (37-47); Hemoglobin 14.7 g/dL (12.0-15.0); Lymphocyte # 1.85 X10^3/ul (0.83-4.51); Lymphocyte % 19.3 % (19-41); Mean Corp Hgb Conc 33.3 g/dL (32-36); Mean Corpuscular Hgb 29.6 pg (27.0-32.0); Mean Corpuscular Volume 88.9 fL (81-99); Mean Platelet Vol. 10.6 fl (6.2-12.0); Monocyte# 0.93 X10^3/uL; Monocyte% 9.7 % (0-10); NRBC Flagged by Analyzer 0 % (0-5); Neutrophil # 6.55 X10^3/uL (2.7-7.7); Neutrophil % 68.2 % (47-70); Platelet Count 238 K/mm3 (150-450); RBC Distribution Width CV 14.7 % (11.6-14.6); RBC Distribution Width SD 47.7 fl (35.1-43.9); Red Blood Count 4.97 M/mm3 (4.2-5.4); White Blood Count 9.6 K/mm3 (4.4-11.0)
[2024-09-15 18:49] LABS: International Normalized Ratio 1.9; Prothrombin Time (Protime)PT. 21.8 SECONDS (11.7-14.9)
[2024-09-15 18:58] LABS: Anion Gap 5 (5-15); BUN 29 mg/dL (7-18); BUN/Creat Ratio 20.7 RATIO (10-20); Calcium,Total 9.4 mg/dL (8.5-10.1); Chloride 106 mmol/L (98-107); EST Glomerular Filtration Rate 40 mL/min (>60); Est Glom Filt Rate - Afr Amer 49 mL/min (>60); Estimated Creatinine Clearance 47.95 ml/min; Glucose 138 mg/dL (74-106); Sodium Level 137 mmol/L (136-145); Troponin-I HS 16 pg/mL (3.0-54.0)
--- NOTE | 2024-09-15 19:33 | PCM.HP.STD ---
[facility] General Date of Admission: 09/15/24 Date of Service: 09/15/24 Chief Complaint: Right-sided Weakness, Slurred Speech, Facial Numbness and Headache. [facility] Leah KELLEY, is a 63 F with a past medical history of essential hypertension; on diltiazem, furosemide, losartan and spironolactone, hyperlipidemia; on pitavastatin and fenofibrate, obesity; with BMI of 39.7 this admission, CHELSEY; on BiPAP, chronic hypoxic respiratory failure; on home oxygen 2L NC, DM-2; of unknown control on dapagliflozin, semaglutide and insulin glargine 50 U BID, diabetic neuropathy; on gabapentin, RLS; with leg cramps on prn tizanidine and prn cyclobenzaprine, history of DVT/PE (2009) after neck surgery; on warfarin 10 mg daily, history of TIA (2020), history of bilateral carotid bruits, history of migraine headaches; on Aimovig sq. monthly and prn rizatriptan, history of asthma/COPD, CAD, history of chronic diastolic CHF, history of non-rheumatic aortic stenosis; s/p TAVR (2020) with postoperative DVT, history of COVID-19, depression with anxiety; on trazodone and fluoxetine, seasonal allergies on levocetirizine, remote history of appendectomy (1966), history of hernia; s/p repair, history of rectal bleed, remote history of (1984), listed allergy to PCN (rash), listed allergy to sulfonamide antibiotics (chest tightness), listed allergy to erythromycin/clindamycin (rash), listed allergy to Xolair (chest tightness), GERD; on omeprazole, osteoporosis; on alendronate, history of rotator cuff arthropathy of the Right shoulder; s/p surgery (2004) and OA; with sciatica and chronic back pain with spinal cord compression; s/p laminectomy (2019) and neck surgery on prn oxycodone QID who presents to [facility] ER complaining of Right-sided weakness, slurred speech, facial numbness and headache. Ms. Kelley reports her symptoms began this morning when she woke up not feeling well and then around noon she began to have tingling in her face with a pounding, throbbing, severe global headache that was diverse from her typical migraines which are usually focused in the frontal and periorbital regions with this headache making her feel like her head was going to explode. She states she was not able to take her routine medications today as prescribed due to her evolving illness - but she faithfully had been taking them up till this time. Then at ~14:00 hours she woke up form a nap soaked from head to toe with diaphoresis in addition to starting having weakness in her RUE and RLE so she activated EMS to be brought in for further evaluation and treatment with stroke team activated. 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 [facility] teleneurologist felt patient was outside of the time window for thrombolytics with CTA of the head and neck negative for acute pathologic findings with subtherapeutic INR of 1.9 present on admission. She was then admitted to the PCU under observation status for completion of her stroke workup for a stay that is expected to be less than 2 midnights. [facility] Medical History Subtherapeutic international normalized ratio (INR) Migraine headache Rectal bleeding Peripheral neuropathy Positive FIT (fecal immunochemical test) History of transcatheter aortic valve replacement (TAVR) (~04/19/21) COVID-19 Depression Anxiety Discoloration of skin History of steroid therapy Insulin dependent diabetes mellitus Diabetes Arthritis High cholesterol Pulmonary embolism Easy bruising Excessive bleeding Restless legs Back pain TIA (transient ischemic attack) Non-smoker BiPAP (biphasic positive airway pressure) dependence On home oxygen therapy Shortness of breath on exertion Leg cramps History of pain when walking History of edema History of stress test Hx of transesophageal echocardiography (YOLANDA) for monitoring History of echocardiogram Cardiology follow-up encounter Rotator cuff arthropathy of right shoulder History of DVT (deep vein thrombosis) Back pain with sciatica Nonrheumatic aortic (valve) stenosis Essential hypertension Carotid artery disease Atherosclerotic heart disease of [place] coronary artery without angina pectoris Personal history of anaphylaxis Bilateral carotid bruits Body mass index 45.0-49.9, adult Diastolic heart failure COPD (chronic obstructive pulmonary disease) CHELSEY treated with BiPAP History of pulmonary embolism Morbid obesity Type 2 diabetes mellitus Asthma Home Medications ?Medication ?Instructions ?Recorded ?Last Taken ?Type fluoxetine 20 mg capsule 40 mg PO DAILY anxiety 01/26/14 04/05/21 History calcium 600 mg-D3 800 unit-mag 40 1 ea PO DAILY vitamins 05/27/16 04/05/21 History ad-iiwm-lnkl-angel-boron chew tablet fenofibrate nanocrystallized 145 72.5 mg PO QHS cholesterol 04/26/19 04/04/21 History mg tablet trazodone 50 mg tablet 50 mg PO QHS sleep 08/09/19 04/04/21 History epinephrine 0.3 mg/0.3 mL 0.3 mg (0.3 mL) IM X1 PRN 01/18/20 Unknown Rx injection, auto-injector Anaphylaxis #1 ea albuterol sulfate 2.5 mg/3 mL 2.5 mg (3 mL) inhalation Q2H PRN 04/24/20 07/02/21 09:00 Rx (0.083 %) solution for nebulization PRN dyspnea, wheezing #180 mL albuterol sulfate 90 mcg/actuation 2 inh inhalation Q4H PRN PRN Sob 04/24/20 04/29/22 Rx aerosol inhaler &/Or Wheezing #18 grams montelukast 10 mg tablet 10 mg PO DAILY allergies/asthma 12/07/20 04/05/21 Rx #30 tabs alendronate 70 mg tablet 70 mg PO WE bone health 12/21/20 08/07/22 History nystatin 100,000 unit/gram topical 1 applic topical BID PRN PRN YEAST 12/21/20 04/05/21 History powder beclomethasone dipropionate 80 1 inh inhalation BID Asthma 03/22/21 07/02/21 09:00 History mcg/actuation HFA breath activated aerosol budesonide-formoterol HFA 160 2 puff inhalation BID asthma 03/22/21 04/29/22 History mcg-4.5 mcg/actuation aerosol inhaler ipratropium 0.5 mg-albuterol 3 mg 3 ml inhalation BID asthma 03/22/21 04/05/21 History (2.5 mg base)/3 mL nebulization soln cyanocobalamin (vitamin B-12) 100 100 mcg PO DAILY supplement 04/05/21 04/05/21 History mcg tablet (Vitamin B-12) melatonin 10 mg tablet 12 mg PO QHS sleep 04/05/21 04/04/21 History pregabalin 150 mg capsule 150 mg PO TID nerve pain 04/05/21 08/11/22 History meclizine 25 mg tablet 25 mg PO DAILY PRN Vertigo 05/04/21 Unknown History docusate sodium 100 mg capsule 100 mg PO DAILY stool softener 08/17/21 Unknown History magnesium 250 mg tablet 400 mg PO DAILY supplement 08/17/21 Unknown History ascorbate calcium (vitamin C) 500 1 g PO DAILY vitamin 11/07/21 09/29/23 History mg tablet chromium picolinate 200 mcg tablet 200 mcg PO DAILY supplement 11/07/21 Unknown History clobetasol 0.05 % topical cream 1 applic topical PRN PRN 11/07/21 Unknown History RASH/ITCHING coconut oil 1,000 mg capsule 1,000 mg PO DAILY supplement 11/07/21 Unknown History levocetirizine 5 mg tablet 5 mg PO DAILY allergies 11/07/21 Unknown History vitamin K2 45 mcg capsule 100 mcg PO DAILY vitamin 11/07/21 Unknown History dapagliflozin propanediol 10 mg 10 mg PO DAILY diabetes 08/11/22 08/11/22 History tablet (Farxiga) pitavastatin calcium 4 mg tablet 4 mg PO DAILY cholesterol 08/11/22 Unknown History (Livalo) multivitamin (Daily Multi-Vitamin 1 tab PO DAILY vag itching 06/12/23 Unknown History tablet) omeprazole 40 mg capsule,delayed 40 mg PO BID gerd 06/12/23 Unknown History release quercetin 500 mg capsule 500 mg PO DAILY supplement 06/12/23 Unknown History semaglutide 1 mg/dose (4 mg/3 mL) 1 mg subcut ECHEVARRIA diabetes 06/12/23 Unknown History subcutaneous pen injector (Ozempic) tiotropium bromide 18 mcg capsule 18 mcg inhalation DAILY asthma 06/12/23 Unknown History with inhalation device erenumab-aooe 70 mg/mL 70 mg subcut QMONTH ordered #1 06/13/23 Unknown Rx subcutaneous auto-injector mL (Aimovig Autoinjector) rizatriptan 10 mg tablet (Maxalt) 10 mg PO Q2H PRN migraine headache 06/13/23 Unknown Rx #10 tabs acetaminophen 500 mg tablet 1,000 mg PO Q8 PRN pain 08/25/23 Unknown History azelastine 137 mcg-fluticasone 50 2 spray intranasal BID allergy 08/25/23 Unknown History mcg/spray nasal spray cholecalciferol (vitamin D3) 125 125 mcg PO DAILY vitamin-self care 08/25/23 Unknown History mcg (5,000 unit) tablet (Vitamin D3) sennosides 8.6 mg tablet (senna) 17.2 mg (2 x 8.6 mg) PO BID stool 09/03/23 Unknown Rx softner #120 tabs Lactobacillus acidophilus 1 tab PO DAILY Supplement 09/29/23 Unknown History (Acidophilus chewable tablet) black seed oil 10,000 mg PO DAILY unknown 09/29/23 Unknown History insulin glargine U-300 conc 300 50 unit subcut BID DIABETES 09/29/23 Unknown History unit/mL (1.5 mL) subcutaneous pen (TouEclectoro SoloStar U-300 Insulin) ondansetron 4 mg disintegrating 4 mg PO DAILY PRN nausea 09/29/23 Unknown History tablet oxycodone-acetaminophen 5 mg-325 1 tab PO BID pain 09/29/23 Unknown History mg tablet sennosides 8.6 mg-docusate sodium 2 tab-cap PO DAILY PRN constipation 09/29/23 Unknown History 50 mg tablet zinc 100 mg tablet 100 mg PO DAILY supplement 09/29/23 Unknown History Hydrocortisone 2.5%/lidocaine 5% #30 ea 10/09/23 Unknown Rx suppository (cmpd) diltiazem HCl 120 mg 120 mg PO .COMPLEX high blood 02/02/24 Unknown History capsule,extended release 24 hr pressure (Cardizem CD) warfarin 10 mg tablet [address] Soria Manages. 02/02/24 Unknown History diltiazem HCl 240 mg 240 mg PO QDAY 02/16/24 Unknown History capsule,extended release 24 hr furosemide 40 mg tablet 80 mg PO BID diuresis 02/16/24 Unknown History spironolactone 50 mg tablet 50 mg PO DAILY #30 tabs 02/16/24 Unknown Rx potassium chloride 10 mEq 10 meq PO DAILY #90 caps 02/25/24 Unknown Rx capsule,extended release methocarbamol 500 mg tablet 500 mg PO .COMPLEX PRN ASK PCP 08/17/24 Unknown History polyethylene glycol 3350 17 gram 17 g PO QDAY self care 08/17/24 Unknown History oral powder packet budesonide-formoterol HFA 80 1 inh inhalation BID 09/15/24 Unknown History mcg-4.5 mcg/actuation aerosol inhaler (Breyna) cyclobenzaprine 10 mg tablet 10 mg PO BID PRN PRN muscle spasm 09/15/24 Unknown History losartan 50 mg tablet 50 mg PO DAILY 09/15/24 Unknown History oxycodone 5 mg tablet 5 mg PO 4X/DAY PRN PRN pain 09/15/24 Unknown History polyethylene glycol 3350 17 8.5 g PO QDAY PRN constipation 09/15/24 Unknown History gram/dose oral powder (ClearLax) tiotropium bromide inhalation DAILY PRN SOB 09/15/24 Unknown History tizanidine 4 mg capsule 4 mg PO BID PRN muscle spasticity 09/15/24 Unknown History Allergy/AdvReac Type Severity Reaction Status Date / Time clindamycin Allergy Rash Verified 08/17/24 13:29 erythromycin base Allergy Rash Verified 08/17/24 13:29 (Erythromycin Base) omalizumab (From Xolair) Allergy Chest Verified 08/17/24 13:29 tightness Penicillins Allergy Rash Verified 08/17/24 13:29 sulfamethoxazole (From Allergy Chest Verified 08/17/24 13:29 Bactrim) tightness trimethoprim (From Bactrim) Allergy Chest Verified 08/17/24 13:29 tightness Sulfa (Sulfonamide AdvReac Unknown Unknown Verified 08/17/24 13:29 Antibiotics) Family History Father Heart disease Diabetes CAD (coronary artery disease) Mother CAD (coronary artery disease) CVA (cerebral vascular accident) Diabetes Brother CAD (coronary artery disease) CVA (cerebral vascular accident) Diabetes Unknown Cancer Grandmother CVA (cerebral vascular accident) Diabetes Grandfather CVA (cerebral vascular accident) Grandmother Myocardial infarction Brother Diabetes Sister Diabetes Surgical History History of laminectomy History of colonoscopy History of cardiac catheterization Aortic valve replaced History of left heart catheterization (LHC) (~01/19/21) H/O lumbosacral spine surgery History of rotator cuff surgery Hx of appendectomy History of hernia repair History of section History of neck surgery Social History household members: spouse housing: apartment pets and animals: Yes Smoking Status: Never smoker second hand exposure: No alcohol intake: current alcohol intake frequency: a few times a week substance use type: does not use caffeine: No what type of physical activity do you participate in: none do you feel safe at home: Yes ROS ROS Narrative Review of Systems: Constitutional: Patient admits to diaphoresis but she denies fever or chills. Eyes: Patient denies changes in vision or discharge from eyes. ENT: Patient denies runny nose, sore throat or ear pain. Resp: Patient denies SOB or cough. CV: Patient denies chest pain, palpitations or heart racing. GI: Patient denies abdominal pain, nausea, vomiting, diarrhea or constipation. : Patient denies dysuria or hematuria. MSK: Patient denies arthralgias or myalgias. Skin: Patient denies rash, abscess or jaundice. Psych: Patient denies symptoms of uncontrolled depression or anxiety. Neuro: Patient admits to severe, throbbing, pounding headache with Right-sided weakness as per HPI. Allergy: Patient denies lip swelling, tongue swelling or urticaria. Hematology: Patient admits to easy bleeding on warfarin but she denies recent blood loss. Endocrinology: Patient denies polyuria, polydipsia or polyphagia. 14 point ROS otherwise negative except for positives noted above in HPI. Vital Signs Vital Signs Vital Signs: 09/15/24 18:21 09/15/24 18:26 09/15/24 18:26 Temperature 97.8 F 98.6 F Temperature Source Oral Oral Pulse Rate 60 64 64 Respiratory Rate 18 18 18 Blood Pressure 113/60 118/58 L 118/58 L Blood Pressure Mean 77 78 78 Pulse Ox 92 94 96 Oxygen Delivery Method Room Air Room Air Room Air Oxygen Flow Rate (L/min) 09/15/24 18:31 09/15/24 18:37 09/15/24 18:45 Temperature 98.4 F Temperature Source Oral Pulse Rate 62 58 L Respiratory Rate 12 12 Blood Pressure 113/60 113/60 Blood Pressure Mean 77 77 Pulse Ox 93 96 Oxygen Delivery Method Room Air Room Air Nasal Cannula Oxygen Flow Rate (L/min) 2 09/15/24 18:55 Temperature Temperature Source Pulse Rate 58 L Respiratory Rate 12 Blood Pressure 108/63 Blood Pressure Mean 78 Pulse Ox 96 Oxygen Delivery Method Nasal Cannula Oxygen Flow Rate (L/min) 2 Weight Weight: 231 lb 7.766 oz Body Mass Index (BMI) 39.7 Physical Exam Const alert, oriented x3 and no apparent distress Constitutional Narrative: Patient is obese and has nontoxic appearance at this time. General Appearance: cooperative HEENT normocephalic, head/scalp atraumatic, hearing grossly normal bilaterally and moist oral mucous membranes Eyes PERRL and EOMs intact bilaterally Neck no lymphadenopathy and supple Resp normal respiratory effort, no retractions, no use of accessory muscles and clear to auscultation bilaterally Cardio regular rate and regular rhythm GI normal to inspection, nondistended, normoactive bowel sounds, soft to palpation and non-tender GI Narrative: Obese. Extremity normal to inspection, full ROM and no clubbing, cyanosis or edema Skin Skin Narrative: Patient has no evidence of abscess or jaundice. Neuro oriented x3, CN's II-XII intact bilaterally, moves all extremities and no focal motor deficits Sensorium / Orientation: awake, alert, oriented to person, oriented to place and oriented to time Speech: speech normal Psych affect normal Results Medical Records Data Attestation: I reviewed the patient's medical records Lab / Micro Data Attestation: I reviewed the patient's lab results. 09/15/24 18:30 09/15/24 18:30 Labs: Laboratory Results - last 24 hr 09/15/24 18:30: WBC 9.6, RBC 4.97, Hgb 14.7, Hct 44.2, MCV 88.9, MCH 29.6, MCHC 33.3, RDW Std Deviation 47.7 H, RDW Coeff of Carmencita 14.7 H, Plt Count 238, MPV 10.6, Immature Gran % (Auto) 1.100 H, Neut % (Auto) 68.2, Lymph % (Auto) 19.3, [place] % (Auto) 9.7, Eos % (Auto) 0.9, Baso % (Auto) 0.8, Absolute Neuts (auto) 6.6, Absolute Lymphs (auto) 1.85, Nucleated RBC % 0, PT 21.8 H, INR 1.9, APTT 37.0 H, Sodium 137, Potassium 5.0, Chloride 106, Carbon Dioxide 26.0, Anion Gap 5, BUN 29 H, Creatinine 1.40 H, Estim Creat Clear Calc 47.95, Est GFR (MDRD) Af Amer 49 L, Est GFR (MDRD) Non-Af 40 L, BUN/Creatinine Ratio 20.7 H, Glucose 138 H, Calcium 9.4, Troponin I High Sens 16 Rhythm Strip Rhythm Strip: Sinus Rhythm Rate: 58 Ectopy: None Imaging Radiology Impression Head/Neck CTA 09/15/24 18:25 IMPRESSION: There is plaque with mild, less than 50%, narrowing of the internal carotid arteries. There is no hemodynamically significant internal carotid artery stenosis. No intracranial aneurysm or large vessel occlusion. Electronically Signed: Joon Grove MD at 18:57 EST Reading Location ID and State: [id number] [place] [address] , Service support , ADDENDUM: 09/15/24 1905 IMPRESSION: There is plaque with mild, less than 50%, narrowing of the internal carotid arteries. There is no hemodynamically significant internal carotid artery stenosis. No intracranial aneurysm or large vessel occlusion. N.B. : The above Results were Read Back by Joon Grove MD to Jaya Douglass MD, and understanding confirmed on 09/15/2024 18:58:34 (ET). 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 Right-sided weakness, slurred speech, facial numbness and with pounding, severe, global headache that was diverse from her typical migraines consistent with suspected Acute CVA vs slowly resolving TIA in the setting of a known previous history of TIA (2020) - Admit to PCU under observation status. Check MRI of the brain without contrast in the AM. Avoid antihypertensives to allow for 'permissive hypertension' until CVA definitively ruled out on MRI. Check echocardiogram to evaluate LVEF. Give ECASA CA with patient having failed bedside swallow evaluation by RN with formal swallow evaluation by Speech Therapy pending in the AM and appreciated in advance. Check TSH and Lipid Profile. We will restart statin when patient can tolerate oral intake. 2. History of migraine headaches; on Aimovig sq. monthly and prn rizatriptan potentially contributing to #1 - Hold triptans to avoid possible cerebral vasospasm that would exacerbate #1. Give Morphine IV prn for severe (level 6-10/10) pain. 3. History of DVT/PE (2009) after neck surgery; on warfarin 10 mg and low-dose vitamin K2 daily with subtherapeutic INR of 1.9 present on admission complicating #1 & #2 - Resume warfarin at current dose and schedule but hold vitamin K2 until therapeutic level is reached from 2-3. 4. Obesity; with BMI of 39.7 this admission and CHELSEY; on BiPAP compounding #1 - #3 - Weight loss will be recommended. Check TSH. Resume nocturnal BiPAP as previous. This complicates her case and may hamper recovery. 5. History of asthma/COPD with chronic hypoxic respiratory failure; on home oxygen 2L NC adding to the medical complexity of #1 - #4 - Stable with no evidence of acute flare at this time. Maintain home regimen as previous. 6. DM-2; of unknown control on dapagliflozin, semaglutide and insulin glargine 50 U BID plus diabetic neuropathy; on gabapentin - ADA diet. FSBS q. AC/HS plus SSI. Decrease insulin glargine to 35 units BID to minimize risk of hypoglycemia. Check HgbA1c to objectively assess quality of diabetic control. 7. Essential hypertension; on diltiazem, furosemide, losartan and spironolactone - Hold scheduled antihypertensives until CVA definitively ruled out on MRI. 8. Hyperlipidemia; on pitavastatin and fenofibrate - Resume statin and fenofibrate as previous and check Lipid Profile in light of #1. 9. RLS; with leg cramps on prn tizanidine and prn cyclobenzaprine - Continue current regimen. 10. History of bilateral carotid bruits - Noted with CTA of the head and neck done this admission negative for severe stenosis. 11. History of CAD - Noted. 12. History of chronic diastolic CHF - Stable with no signs of volume overload present on admission. 13. History of non-rheumatic aortic stenosis; s/p TAVR (2020) with postoperative DVT - Noted. 14. History of COVID-19 - Noted. 15. Depression with anxiety; on trazodone and fluoxetine - Maintain home regimen as previous. 16. Seasonal allergies on levocetirizine - Continue current treatment. 17. Remote history of appendectomy (1966) - Noted. 18. History of hernia; s/p repair - Noted. 19. History of rectal bleed - Noted with no signs of bleeding present on admission. 20. Remote history of (1984) - Noted for the sake of completeness. 21. Listed allergy to PCN (rash) - Noted. 22. Listed allergy to sulfonamide antibiotics (chest tightness) - Noted. 23. Listed allergy to erythromycin/clindamycin (rash) - Noted. 24. Listed allergy to Xolair (chest tightness) - Noted. 25. GERD; on omeprazole - Resume omeprazole as previous. 26. Osteoporosis; on alendronate - Restart alendronate as outpatient. 27. History of rotator cuff arthropathy of the Right shoulder; s/p surgery (2004) - Noted. 28. OA; with sciatica and chronic back pain; s/p laminectomy (2019) and neck surgery on prn oxycodone QID - Noted. Continue prn oxycodone for severe (6-10/10) pain. 29. DVT prophylaxis - Place SCD's for now with INR of 1.9 and continue warfarin 10 mg daily with repeat PT/INR pending in the AM. Total time: Approximately (but not less than) 85 minutes. Charges/Coding Visit Charges OBSV E&M: 66639 Observ/hosp same date L3
--- NOTE | 2024-09-15 19:40 | RAD_ITS ---
STUDY: X-RAY CHEST REASON FOR EXAM: Female, 63 years old. Neuro deficit, acute, stroke suspected TECHNIQUE: Single AP portable view of the chest. COMPARISON: February 28, 2024 FINDINGS: The lungs are clear and expanded. There is no demonstrated pleural abnormality. Normal size heart. Normal mediastinum and yulisa. Normal visualized pulmonary arteries. Normal visualized aortic arch and descending thoracic aorta. There is demineralization of the osseous structures. There is degenerative change of the thoracic spine. There is postoperative change of the cervical spine. There is right shoulder replacement. There is no demonstrated abnormality of the visualized soft tissue structures of the upper abdomen. RAD/Chest 1 View IMPRESSION: Degenerative changes, as described above. No demonstrated acute cardiopulmonary process. Electronically Signed: Joon Grove MD at 20:24 EST ,
--- NOTE | 2024-09-15 20:13 | ECHOD_ITS ---
Reason For Study: TIA/CVA Procedure This was a 2D Doppler, Color Flow transthoracic echocardiogram. The study was technically difficult. Exam performed portable in patient room. Left Ventricle Normal LV size. The estimated ejection fraction is 70 %. Unable to assess diastolic dysfunction. No regional wall motion abnormalities noted. Right Ventricle Normal RV size. Normal systolic function. Atria The left atrium is mildly enlarged. Normal right atrium. No doppler evidence for ASD. Mitral Valve There is moderate to severe mitral annular calcification. Moderate mitral valve stenosis. No mitral valve insufficiency. Tricuspid Valve There is no tricuspid stenosis. Unable to estimate RV systolic pressure due to inadequate jet, pulmonary artery pressure probably normal. Aortic Valve The aortic valve is not well visualized. Severe aortic stenosis. Moderately severe (3+) aortic valve insufficiency. TAVR valve not well visualized. Pulmonic Valve There is no pulmonic valvular stenosis. No pulmonic valve insufficiency. Great Vessels Normal aortic root. Pericardium/Pleural No pericardial effusion. MMode/2D Measurements & Calculations LVIDd: 4.3 cm IVSd: 1.5 cm LVOT diam: 2.0 cm LVIDs: 2.7 cm LVPWd: 1.6 cm LVOT area: 3.2 cm2 RVDd: 4.4 cm FS: 37.0 % asc Aorta Diam: 3.2 cm LAV(MOD-bp): 60.2 ml LVAd ap4: 26.7 cm2 LAV(MOD-bp) Indexed: 28.3 ml/m2 LVLd ap4: 7.8 cm LAV(MOD-sp2): 60.0 ml EDV(MOD-sp4): 75.5 ml LAV(MOD-sp4): 55.4 ml EDV(sp4-el): 78.0 ml LVAs ap4: 13.5 cm2 LVLs ap4: 6.4 cm ESV(MOD-sp4): 23.7 ml ESV(sp4-el): 24.4 ml EF(MOD-sp4): 68.6 % EF(sp4-el): 68.8 % LVAd ap2: 27.7 cm2 SV(MOD-sp4): 51.8 ml SV(MOD-sp2): 57.7 ml LVLd ap2: 7.4 cm SI(MOD-sp4): 24.3 ml/m2 SI(MOD-sp2): 27.1 ml/m2 EDV(MOD-sp2): 82.4 ml EDV(sp2-el): 87.4 ml LVAs ap2: 13.1 cm2 LVLs ap2: 6.0 cm ESV(MOD-sp2): 24.6 ml ESV(sp2-el): 24.3 ml EF(MOD-sp2): 70.1 % SV(sp4-el): 53.7 ml Ao sinus diam: 3.[address] Junction: 2.5 cm LA dimension(2D): 4.5 cm LA A4 area: 19.0 cm2 RA A4 area: 12.6 cm2 TAPSE: 2.2 cm Time Measurements MV dec time: 0.31 sec Doppler Measurements & Calculations MV E max mark: 121.4 cm/sec Lat Peak E' Mark: 6.0 cm/sec Med Peak E' Mark: 4.9 cm/sec E/E' lat: 20.1 E/E' med: 24.9 MV V2 max: 184.2 cm/sec Ao V2 max: 447.5 cm/sec AI max mark: 329.0 cm/sec MV max P.6 mmHg Ao max P.8 mmHg AI max P.3 mmHg MV V2 mean: 126.5 cm/sec Ao V2 mean: 355.1 cm/sec AI dec slope: 248.6 cm/sec2 MV mean P.8 mmHg Ao mean P.5 mmHg AI P1/2t: 387.7 msec MV V2 VTI: 47.3 cm Ao V2 VTI: 112.8 cm MVA(VTI): 2.2 cm2 AV (velocity ratio): 0.30 FELICIANO(I,D): 0.93 cm2 FELICIANO(V,D): 0.88 cm2 LV V1 max: 124.0 cm/sec SV(LVOT): 105.2 ml PA V2 max: 82.7 cm/sec LV V1 max P.2 mmHg LV V1 mean P.1 mmHg LV V1 mean: 98.9 cm/sec LV V1 VTI: 33.3 cm ECHO/Echo Complete Interpretation Summary The estimated ejection fraction is 70 %. Unable to assess diastolic dysfunction. Moderate mitral valve stenosis. Severe aortic stenosis. Moderately severe (3+) aortic valve insufficiency. Ordering Physician: Michael De Los Santos Referring Physician: Ophelia Soria M.D. Performed By: Crystal An RDCS and Student
[2024-09-15 21:01] LABS: Hemoglobin A1c 6.5 % (3.8-5.6)
[2024-09-15] MEDS: 0.9% Normal Saline (1000mL) 1,000 ML 50 ML IV (21:48)
[2024-09-15] MEDS: Aspirin 300 MG Suppository RC (23:10)
[2024-09-15 23:36] LABS: Bedside Glucose 153 mg/dL (74-106)
[2024-09-16] VITALS (10 sets, daily range): BP systolic 110–124; BP diastolic 55–82; PULSE 60–74; RESP 16–18; TEMP 36.2–36.8; O2SAT 94–96; BMI 42.1
[2024-09-16] MEDS: Ipratropium/Albuterol Sulfate 3 ML AMPUL.NEB INHALATION ×3 (00:01→19:35)
[2024-09-16] MEDS: 0.9% Saline Lock 10 ML Syringe IV ×3 (00:33→21:02)
[2024-09-16] MEDS: Morphine 2 MG/ML Syringe IV ×3 (00:33→10:58)
[2024-09-16] MEDS: Budesonide Respules 0.5 MG/2 ML AMPUL.NEB. INHALATION ×2 (06:44→19:35)
[2024-09-16 06:48] LABS: International Normalized Ratio 1.9; Prothrombin Time (Protime)PT. 21.8 SECONDS (11.7-14.9)
[2024-09-16 06:57] LABS: Cholesterol 161 mg/dL (200); High Density Lipoprotein 37 mg/dL; Triglycerides 327 mg/dL; Very Low Density Lipoprotein 65 mg/dL (5-40)
[2024-09-16 07:16] LABS: Bedside Glucose 123 mg/dL (74-106)
--- NOTE | 2024-09-16 08:47 | PCM.PN.HOSP ---
Reason for Visit Reason for Visit: Diagnoses Obesity, unspecified (09/15/24) Migraine without aura, intractable, without status migrainosus (09/15/24) Migraine, unspecified, not intractable, without status migrainosus (09/15/24) Nonrheumatic aortic (valve) stenosis (09/15/24) Weakness (09/15/24) Abnormal coagulation profile (09/15/24) senior care (current) use of anticoagulants (09/15/24) Personal history of transient ischemic attack (TIA), and cerebral infarction without residual deficits (09/15/24) Objective Data Objective Data Vital Signs: Vital Signs Temp Pulse Resp BP Pulse Ox O2 Del Method O2 Flow Rate 98.0 F 66 18 113/62 96 Nasal Cannula 2 09/16/24 04:20 09/16/24 04:20 09/16/24 04:20 09/16/24 04:20 09/16/24 04:20 09/16/24 04:20 09/16/24 04:20 Oxygen Flow Rate (L/min) 2 Oxygen Delivery Method Nasal Cannula Weight: 245 lb 6 oz Body Mass Index (BMI) 42.1 Intake & Output: Intake and Output for Last 24 Hours 09/14/24 09/15/24 09/16/24 23:59 23:59 23:59 Intake Total 0 / 0 200 / 200 Output Total 700 / 700 0 / 0 Balance -700 / -700 200 / 200 Lab / Micro Data 09/15/24 18:30 09/15/24 18:30 Labs: Laboratory Results - last 24 hr 09/15/24 18:30: WBC 9.6, RBC 4.97, Hgb 14.7, Hct 44.2, MCV 88.9, MCH 29.6, MCHC 33.3, RDW Std Deviation 47.7 H, RDW Coeff of Carmencita 14.7 H, Plt Count 238, MPV 10.6, Immature Gran % (Auto) 1.100 H, Neut % (Auto) 68.2, Lymph % (Auto) 19.3, [place] % (Auto) 9.7, Eos % (Auto) 0.9, Baso % (Auto) 0.8, Absolute Neuts (auto) 6.6, Absolute Lymphs (auto) 1.85, Nucleated RBC % 0, PT 21.8 H, INR 1.9, APTT 37.0 H, Sodium 137, Potassium 5.0, Chloride 106, Carbon Dioxide 26.0, Anion Gap 5, BUN 29 H, Creatinine 1.40 H, Estim Creat Clear Calc 47.95, Est GFR (MDRD) Af Amer 49 L, Est GFR (MDRD) Non-Af 40 L, BUN/Creatinine Ratio 20.7 H, Glucose 138 H, Hemoglobin A1c 6.5 H, Calcium 9.4, Troponin I High Sens 16, TSH 1.050 09/15/24 23:01: POC Glucose 153 H 09/16/24 06:05: PT 21.8 H, INR 1.9, Triglycerides 327 H, Cholesterol 161, LDL Cholesterol 59, VLDL Cholesterol 65 H, HDL Cholesterol 37 L 09/16/24 06:57: POC Glucose 123 H Radiography Diagnostic Testing: Radiology Impression Brain CT 09/15/24 18:25 IMPRESSION: Chronic involutional changes of the brain. 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 Recommend ENT consultation. N.B. : The above Results were Read Back by Joon Grove MD to Jaya Douglass MD, and understanding confirmed on 09/15/2024 18:48:32 (ET). Electronically Signed: Joon Grove MD at 18:38 EST , Head/Neck CTA 09/15/24 18:25 IMPRESSION: There is plaque with mild, less than 50%, narrowing of the internal carotid arteries. There is no hemodynamically significant internal carotid artery stenosis. No intracranial aneurysm or large vessel occlusion. Electronically Signed: Joon Grove MD at 18:57 EST , ADDENDUM: 09/15/24 1905 IMPRESSION: There is plaque with mild, less than 50%, narrowing of the internal carotid arteries. There is no hemodynamically significant internal carotid artery stenosis. No intracranial aneurysm or large vessel occlusion. N.B. : The above Results were Read Back by Joon Grove MD to Jaya Douglass MD, and understanding confirmed on 09/15/2024 18:58:34 (ET). Electronically Signed: Joon Grove MD at 18:57 EST , Chest X-Ray 09/15/24 19:40 IMPRESSION: Degenerative changes, as described above. No demonstrated acute cardiopulmonary process. Electronically Signed: Joon Grove MD at 20:24 EST , Rhythm Strip Rhythm Strip: Sinus Rhythm Rate: 58 Ectopy: None Physical Exam Narrative Patient was admitted with headache, subjective complaint of right-sided weakness. Complain of headache mainly occipital side. She stated usually she gets temporal headache. She has chronic back pain Physical exam General: Alert, Oriented x3, Cooperative. Morbid obesity BMI 42.1 kg/m? HEENT: Atraumatic, PERRLA, EOMI, Normocephalic Oral: Deep oropharyngeal structures could not be visualized Neck: Supple, No JVD, Negative Carotid Bruits Chest wall/Lungs: Air entry diminished in bilateral lung bases. No crepitation/rhonchi Cardiovascular: Regular rate, Regular Rhythm, Normal S1, Normal S2, No M/G/R Abdomen: Bowel Sounds Present, Soft, Non Tender, Non-Distended : No dysuria. No renal angle tenderness. No suprapubic tenderness. Extremities: No edema, Capillary Refill Less than 3 Seconds Skin: No rashes, No breakdown Musculoskeletal spine: bilateral knee arthritis, valgus deformity. No Tenderness to Palpation of Joints or Extremities. Chronic lumbar spine tenderness Neurological: Cranial nerves II-XII grossly intact, DTR 2+/4. Chronic weakness of RLE, 4/5. Psych/Mental Status: Flat. 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 She also has bad headache with history of chronic migraine. 1. Right-sided weakness, slurred speech, facial numbness and with pounding, severe, global headache probably related to complicated migraine: Patient being admitted in PCU. This time occipital headache was different from usual temporal headache from migraine. She had MRI which did not show acute intracranial abnormality. CT headache neck shows plaque with mild less than 50% narrowing of ICA but no hemodynamic significant stenosis, aneurysm or large vessel occlusion. 2D echo shows severe aortic stenosis, 3+ AI. Moderate mitral valve stenosis. EF 70%, no Doppler evidence of ASD. Patient on rizatriptan migraine headache medicine as needed. Started on ibuprofen and Topamax. Patient states he does not feel good and still has headache therefore did not want to go home. Continue PT and OT. TSH normal 2. History of migraine headaches; on Aimovig sq. monthly and prn rizatriptan -as mentioned above 3. 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 On warfarin 10 mg daily 4. Obesity; with BMI of 39.7 this admission and CHELSEY; on BiPAP Weight loss will be recommended. Resume nocturnal BiPAP as previous. 5. History of asthma/COPD with chronic hypoxic respiratory failure; on home oxygen 2L NC: No acute shortness of breath/COPD exacerbation. Continue oxygen as needed. 6. DM-2; of unknown control on dapagliflozin, semaglutide and insulin glargine 50 U BID plus diabetic neuropathy; on gabapentin - ADA diet. Accu-Chek before meals and at bedtime with Humalog sliding scale coverage and hypoglycemia protocol. Continue insulin glargine to 35 units BID to minimize risk of hypoglycemia. 7. Essential hypertension; on diltiazem, furosemide, losartan and spironolactone - Hold scheduled antihypertensives until CVA definitively ruled out on MRI. 8. Hyperlipidemia; on pitavastatin and fenofibrate - 09/16: FLP shows triglyceride hide 327, VLDL high. HDL low. Atorvastatin dose increased 9. RLS; with leg cramps on prn tizanidine and prn cyclobenzaprine - Continue current regimen. 10. Multiple cardiac comorbidities including CAD, chronic HFpEF, severe aortic stenosis status post TAVR 2020 with postop DVT. History of bilateral carotid bruits 11. Osteoporosis, osteoarthritis with sciatica status postlaminectomy in 2019 DVT prophylaxis - Place SCD's for now with INR of 1.9 and continue warfarin 10 mg daily with repeat PT/INR pending in the AM. Clinical Impression(s) from Imaging Studies Brain CT 09/15/24 18:25 IMPRESSION: Chronic involutional changes of the brain. 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 Recommend ENT consultation. N.B. : The above Results were Read Back by Joon Grove MD to Jaya Douglass MD, and understanding confirmed on 09/15/2024 18:48:32 (ET). Electronically Signed: Joon Grove MD at 18:38 EST , Head/Neck CTA 09/15/24 18:25 IMPRESSION: There is plaque with mild, less than 50%, narrowing of the internal carotid arteries. There is no hemodynamically significant internal carotid artery stenosis. No intracranial aneurysm or large vessel occlusion. Chest X-Ray 09/15/24 19:40 IMPRESSION: Degenerative changes, as described above. No demonstrated acute cardiopulmonary process. Electronically Signed: Joon Grove MD at 20:24 EST , Echocardiogram 09/15/24 20:13 Interpretation Summary The estimated ejection fraction is 70 %. Unable to assess diastolic dysfunction. Moderate mitral valve stenosis. Severe aortic stenosis. Moderately severe (3+) aortic valve insufficiency. Brain MRI 09/16/24 09:30 IMPRESSION: 1. Involutional and chronic ischemic changes of the brain, as described above. Charges/Coding Visit Charges Inpatient E&M: 66932 Subs Hosp L2
--- NOTE | 2024-09-16 09:30 | MRI_ITS ---
STUDY: MRI BRAIN WITHOUT CONTRAST REASON FOR EXAM: Female, 63 years old. Transient Right-sided weakness and Slurred Speech. TECHNIQUE: Standardized multiplanar fat and water weighted pulse sequences were obtained. 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 There is mild cerebral atrophy with widening of the extra-axial spaces and ventricular dilatation. There are multiple white matter hyperintensities, distributed throughout the deep white matter tracts of the cerebral hemispheres, consistent with moderate chronic white matter ischemic changes. There is no evidence for recent intracranial ischemia or other cause of cytotoxic edema on diffusion weighted imaging (DWI). Normal T2* images of the brain without demonstrated susceptibility artifact. There is no demonstrated hemosiderin stain. There are no demyelinating plagues of the supratentorial brain, brainstem or cerebellum. There are no findings suspicious for multiple sclerosis (MS). Normal bilateral basal ganglia. Normal thalami. There is no extra-axial fluid accumulation. Normal flow voids within the major intracranial circulation suggesting patency by spin echo criteria. Normal sella turcica, pituitary gland, infundibular stalk, optic chiasm and hypothalamus. Normal tectal plate and pineal gland. Normal midbrain, martha and medulla. Normal cerebellum. Normal basal cisterns. Normal bilateral temporal bones. Normal bilateral internal auditory canals. No demonstrated orbital abnormality, within the constraints of a routine brain study. Normal visualized paranasal sinuses. Normal calvarium and skull base. Normal visualized soft tissue structures. Normal visualized upper cervical spine. MRI/Brain without Contrast IMPRESSION: 1. Involutional and chronic ischemic changes of the brain, as described above. Electronically Signed: Rodrigue Hood MD at 10:11 [facility] ,
[2024-09-16] MEDS: Fluticasone 0.05% 1 SPRAY NASAL.SRY 2 SPRAY NASAL ×2 (11:01→21:02)
[2024-09-16] MEDS: Azelastine HCl NASAL.SRY 2 SPRAY NASAL ×2 (11:01→21:03)
[2024-09-16] MEDS: Pantoprazole Sodium 40 MG Tablet PO ×2 (11:39→21:07)
[2024-09-16] MEDS: Zinc Sulfate 50 mg zinc (220 mg) ORAL capsule 100 MG PO (11:39)
[2024-09-16] MEDS: Multivitamins,Therapeutic Tablet 1 TABLET PO (11:39)
[2024-09-16] MEDS: dilTIAZem CD 240 MG Capsule PO (11:39)
[2024-09-16] MEDS: Montelukast 10 MG Tablet PO (11:39)
[2024-09-16] MEDS: Ascorbic Acid 500 MG Tablet 1000 MG PO (11:40)
[2024-09-16] MEDS: Senna Tablet 1 TABLET PO (11:40)
[2024-09-16] MEDS: Cholecalciferol (Vit D3) 125 MCG CAPSULE (5,000 UNITS) PO (11:40)
[2024-09-16] MEDS: Loratadine 10 MG Tablet PO (11:41)
[2024-09-16] MEDS: Magnesium Chloride 64 MG Delay Rel.Tablet 128 MG PO (11:41)
[2024-09-16] MEDS: Docusate Sodium 100 MG Capsule PO (11:41)
[2024-09-16] MEDS: Polyethylene Glycol 3350 17 GM PACKET PO (11:41)
[2024-09-16] MEDS: Lactobacillis Acidophilus 1 CAP PO (11:41)
[2024-09-16] MEDS: oxyCODONE 5 MG Tablet PO ×2 (11:41→21:04)
[2024-09-16] MEDS: Fluoxetine HCl 40 MG CAPSULE PO (11:41)
[2024-09-16] MEDS: Pregabalin 75 MG Capsule 150 MG PO ×2 (11:42→21:03)
[2024-09-16] MEDS: Acetaminophen 500 MG Tablet 1000 MG PO ×2 (11:42→21:04)
[2024-09-16] MEDS: Insulin Glargine-YFGN 100 UNIT/ML Pen 35 UNIT SC ×2 (11:50→21:05)
[2024-09-16 12:59] LABS: Bedside Glucose 191 mg/dL (74-106)
[2024-09-16] MEDS: Methocarbamol 500 MG Tablet PO (14:02)
--- NOTE | 2024-09-16 15:15 | CHAPLAIN ---
Type of Pastoral Visit _x__ Initial Visit ___ Follow-up Visit ___ On-call Visit ___ General Patient Visit ___ Spiritual Assessment ___ Family Conference ___ Bereavement ___ Rapid Response ___ Code Blue ___ Other (describe below) Pastoral Care Referral From _x__ Patient ___ Family ___ Nurse ___ Physician ___ Machine Assistant ___ Drug Regulatory Affairs Specialist ___ Other (describe below) Sacrament/Intervention _x__ Active listening ___ Anointing ___ Caodaism ___ Bereavement ___ Communion ___ Cathi exploration ___ _x__ Life review _x__ Prayer ___ Reconciliation ___ Sacrament of Sick _x__ Supportive presence ___ Wedding ___ Other (describe below) Pastoral Comments patient has been seen before in other previous admissions; pt gives lengthy update on her health and what brought her in this time; pt is looking for more confirmation or details about this health scare; 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
--- NOTE | 2024-09-16 15:55 | CASEMGMT ---
Met with patient to complete VILLANUEVA form. VILLANUEVA form explained to patient who voiced understanding and signed form. Original form placed in pt?s chart and copy provided to patient. Jody Schrader, Discharge Planning Asst
--- NOTE | 2024-09-16 16:09 | STROKE.CONS ---
Assessment and Plan: Stroke Assessment/Plan NATHALIE HERMAN is a 63 F with a history of HTN/HLD, CHELSEY on bipap, chronic hypoxic resp failure on home O2, DVT/PE on warfarin, migraine, TAVR (2020) who presents for evaluation of mild right hemiparesis and dysarthria. While MRI is negative, that does not fully rule out a small stroke, especially in the brainstem. Will reat like DWI neg stroke though difficult to rule out functional neurologic disorder on remote exam. Stroke etiology small vessel vs cardioembolic from subtherapeutic INR. Cardiovascular risk factors well controlled ? continue statin, bipap, diabetes treatment. Continue chronic warfarin. Follow up with PCP. HPI Consult Data Date of Consult: 09/16/24 HPI Narrative HPI Narrative: NATHALIE HERMAN, is a 63 F who awoke on 09/15/24 w/ global headache and feeling unwell. 1400 awoke from a nap w/ excessive sweating and later developed R face/arm/leg weakness and dysarthria. Is slowly improving but still some residual RLE weakness. INR 1.9, LDL 59, A1c pending. MRI neg, CTA neg. TTE w/ severe aortic stenosis, otherwise unremarkable. [facility] Medical History Subtherapeutic international normalized ratio (INR) Migraine headache Rectal bleeding Peripheral neuropathy Positive FIT (fecal immunochemical test) History of transcatheter aortic valve replacement (TAVR) (~04/19/21) COVID-19 Depression Anxiety Discoloration of skin History of steroid therapy Insulin dependent diabetes mellitus Diabetes Arthritis High cholesterol Pulmonary embolism Easy bruising Excessive bleeding Restless legs Back pain TIA (transient ischemic attack) Non-smoker BiPAP (biphasic positive airway pressure) dependence On home oxygen therapy Shortness of breath on exertion Leg cramps History of pain when walking History of edema History of stress test Hx of transesophageal echocardiography (YOLANDA) for monitoring History of echocardiogram Cardiology follow-up encounter Rotator cuff arthropathy of right shoulder History of DVT (deep vein thrombosis) Back pain with sciatica Nonrheumatic aortic (valve) stenosis Essential hypertension Carotid artery disease Atherosclerotic heart disease of [place] coronary artery without angina pectoris Personal history of anaphylaxis Bilateral carotid bruits Body mass index 45.0-49.9, adult Diastolic heart failure COPD (chronic obstructive pulmonary disease) CHELSEY treated with BiPAP History of pulmonary embolism Morbid obesity Type 2 diabetes mellitus Asthma Home Medications ?Medication ?Instructions ?Recorded ?Last Taken ?Type fluoxetine 20 mg capsule 40 mg PO DAILY anxiety 01/26/14 04/05/21 History calcium 600 mg-D3 800 unit-mag 40 1 ea PO DAILY vitamins 05/27/16 04/05/21 History mt-wrqn-zprt-angel-boron chew tablet fenofibrate nanocrystallized 145 72.5 mg PO QHS cholesterol 04/26/19 04/04/21 History mg tablet trazodone 50 mg tablet 50 mg PO QHS sleep 08/09/19 04/04/21 History epinephrine 0.3 mg/0.3 mL 0.3 mg (0.3 mL) IM X1 PRN 01/18/20 Unknown Rx injection, auto-injector Anaphylaxis #1 ea albuterol sulfate 2.5 mg/3 mL 2.5 mg (3 mL) inhalation Q2H PRN 04/24/20 07/02/21 09:00 Rx (0.083 %) solution for nebulization PRN dyspnea, wheezing #180 mL albuterol sulfate 90 mcg/actuation 2 inh inhalation Q4H PRN PRN Sob 04/24/20 04/29/22 Rx aerosol inhaler &/Or Wheezing #18 grams montelukast 10 mg tablet 10 mg PO DAILY allergies/asthma 12/07/20 04/05/21 Rx #30 tabs alendronate 70 mg tablet 70 mg PO WE [employer] 12/21/20 08/07/22 History nystatin 100,000 unit/gram topical 1 applic topical BID PRN PRN YEAST 12/21/20 04/05/21 History powder beclomethasone dipropionate 80 1 inh inhalation BID Asthma 03/22/21 07/02/21 09:00 History mcg/actuation HFA breath activated aerosol budesonide-formoterol HFA 160 2 puff inhalation BID asthma 03/22/21 04/29/22 History mcg-4.5 mcg/actuation aerosol inhaler ipratropium 0.5 mg-albuterol 3 mg 3 ml inhalation BID asthma 03/22/21 04/05/21 History (2.5 mg base)/3 mL nebulization soln cyanocobalamin (vitamin B-12) 100 100 mcg PO DAILY supplement 04/05/21 04/05/21 History mcg tablet (Vitamin B-12) melatonin 10 mg tablet 12 mg PO QHS sleep 04/05/21 04/04/21 History pregabalin 150 mg capsule 150 mg PO TID nerve pain 04/05/21 08/11/22 History meclizine 25 mg tablet 25 mg PO DAILY PRN Vertigo 05/04/21 Unknown History docusate sodium 100 mg capsule 100 mg PO DAILY stool softener 08/17/21 Unknown History magnesium 250 mg tablet 400 mg PO DAILY supplement 08/17/21 Unknown History ascorbate calcium (vitamin C) 500 1 g PO DAILY vitamin 11/07/21 09/29/23 History mg tablet chromium picolinate 200 mcg tablet 200 mcg PO DAILY supplement 11/07/21 Unknown History clobetasol 0.05 % topical cream 1 applic topical PRN PRN 11/07/21 Unknown History RASH/ITCHING coconut oil 1,000 mg capsule 1,000 mg PO DAILY supplement 11/07/21 Unknown History levocetirizine 5 mg tablet 5 mg PO DAILY allergies 11/07/21 Unknown History vitamin K2 45 mcg capsule 100 mcg PO DAILY vitamin 11/07/21 Unknown History dapagliflozin propanediol 10 mg 10 mg PO DAILY diabetes 08/11/22 08/11/22 History tablet (Farxiga) pitavastatin calcium 4 mg tablet 4 mg PO DAILY cholesterol 08/11/22 Unknown History (Livalo) multivitamin (Daily Multi-Vitamin 1 tab PO DAILY vag itching 06/12/23 Unknown History tablet) omeprazole 40 mg capsule,delayed 40 mg PO BID gerd 06/12/23 Unknown History release quercetin 500 mg capsule 500 mg PO DAILY supplement 06/12/23 Unknown History semaglutide 1 mg/dose (4 mg/3 mL) 1 mg subcut ECHEVARRIA diabetes 06/12/23 Unknown History subcutaneous pen injector (Ozempic) tiotropium bromide 18 mcg capsule 18 mcg inhalation DAILY asthma 06/12/23 Unknown History with inhalation device erenumab-aooe 70 mg/mL 70 mg subcut QMONTH ordered #1 06/13/23 Unknown Rx subcutaneous auto-injector mL (Aimovig Autoinjector) rizatriptan 10 mg tablet (Maxalt) 10 mg PO Q2H PRN migraine headache 06/13/23 Unknown Rx #10 tabs acetaminophen 500 mg tablet 1,000 mg PO Q8 PRN pain 08/25/23 Unknown History azelastine 137 mcg-fluticasone 50 2 spray intranasal BID allergy 08/25/23 Unknown History mcg/spray nasal spray cholecalciferol (vitamin D3) 125 125 mcg PO DAILY vitamin-self care 08/25/23 Unknown History mcg (5,000 unit) tablet (Vitamin D3) sennosides 8.6 mg tablet (senna) 17.2 mg (2 x 8.6 mg) PO BID stool 09/03/23 Unknown Rx softner #120 tabs Lactobacillus acidophilus 1 tab PO DAILY Supplement 09/29/23 Unknown History (Acidophilus chewable tablet) black seed oil 10,000 mg PO DAILY unknown 09/29/23 Unknown History insulin glargine U-300 conc 300 50 unit subcut BID DIABETES 09/29/23 Unknown History unit/mL (1.5 mL) subcutaneous pen (Toujeo SoloStar U-300 Insulin) ondansetron 4 mg disintegrating 4 mg PO DAILY PRN nausea 09/29/23 Unknown History tablet oxycodone-acetaminophen 5 mg-325 1 tab PO BID pain 09/29/23 Unknown History mg tablet sennosides 8.6 mg-docusate sodium 2 tab-cap PO DAILY PRN constipation 09/29/23 Unknown History 50 mg tablet zinc 100 mg tablet 100 mg PO DAILY supplement 09/29/23 Unknown History Hydrocortisone 2.5%/lidocaine 5% #30 ea 10/09/23 Unknown Rx suppository (cmpd) diltiazem HCl 120 mg 120 mg PO .COMPLEX high blood 02/02/24 Unknown History capsule,extended release 24 hr pressure (Cardizem CD) warfarin 10 mg tablet [address] Soria Manages. 02/02/24 Unknown History diltiazem HCl 240 mg 240 mg PO QDAY 02/16/24 Unknown History capsule,extended release 24 hr furosemide 40 mg tablet 80 mg PO BID diuresis 02/16/24 Unknown History spironolactone 50 mg tablet 50 mg PO DAILY #30 tabs 02/16/24 Unknown Rx potassium chloride 10 mEq 10 meq PO DAILY #90 caps 02/25/24 Unknown Rx capsule,extended release methocarbamol 500 mg tablet 500 mg PO .COMPLEX PRN ASK PCP 08/17/24 Unknown History polyethylene glycol 3350 17 gram 17 g PO QDAY self care 08/17/24 Unknown History oral powder packet budesonide-formoterol HFA 80 1 inh inhalation BID 09/15/24 Unknown History mcg-4.5 mcg/actuation aerosol inhaler (Breyna) cyclobenzaprine 10 mg tablet 10 mg PO BID PRN PRN muscle spasm 09/15/24 Unknown History losartan 50 mg tablet 50 mg PO DAILY 09/15/24 Unknown History oxycodone 5 mg tablet 5 mg PO 4X/DAY PRN PRN pain 09/15/24 Unknown History polyethylene glycol 3350 17 8.5 g PO QDAY PRN constipation 09/15/24 Unknown History gram/dose oral powder (ClearLax) tiotropium bromide inhalation DAILY PRN SOB 09/15/24 Unknown History tizanidine 4 mg capsule 4 mg PO BID PRN muscle spasticity 09/15/24 Unknown History Allergy/AdvReac Type Severity Reaction Status Date / Time clindamycin Allergy Rash Verified 08/17/24 13:29 erythromycin base Allergy Rash Verified 08/17/24 13:29 (Erythromycin Base) omalizumab (From Xolair) Allergy Chest Verified 08/17/24 13:29 tightness Penicillins Allergy Rash Verified 08/17/24 13:29 sulfamethoxazole (From Allergy Chest Verified 08/17/24 13:29 Bactrim) tightness trimethoprim (From Bactrim) Allergy Chest Verified 08/17/24 13:29 tightness Sulfa (Sulfonamide AdvReac Unknown Unknown Verified 08/17/24 13:29 Antibiotics) Family History Father Heart disease Diabetes CAD (coronary artery disease) Mother CAD (coronary artery disease) CVA (cerebral vascular accident) Diabetes Brother CAD (coronary artery disease) CVA (cerebral vascular accident) Diabetes Unknown Cancer Grandmother CVA (cerebral vascular accident) Diabetes Grandfather CVA (cerebral vascular accident) Grandmother Myocardial infarction Brother Diabetes Sister Diabetes Surgical History History of laminectomy History of colonoscopy History of cardiac catheterization Aortic valve replaced History of left heart catheterization (LHC) (~01/19/21) H/O lumbosacral spine surgery History of rotator cuff surgery Hx of appendectomy History of hernia repair History of section History of neck surgery Social History household members: spouse housing: apartment pets and animals: Yes Smoking Status: Never smoker second hand exposure: No alcohol intake: current alcohol intake frequency: a few times a week substance use type: does not use caffeine: No what type of physical activity do you participate in: none do you feel safe at home: Yes Vital Signs Vital Signs Vital Signs: 09/15/24 18:21 09/15/24 18:26 09/15/24 18:26 Temperature 97.8 F 98.6 F Temperature Source Oral Oral Pulse Rate 60 64 64 Pulse Strength Respiratory Rate 18 18 18 Respiratory Effort Respiratory Depth Respiratory Pattern Blood Pressure 113/60 118/58 L 118/58 L Blood Pressure Mean 77 78 78 Blood Pressure Source Blood Pressure Position Blood Pressure Location Pulse Ox 92 94 96 Oxygen Delivery Method Room Air Room Air Room Air Oxygen Flow Rate (L/min) 09/15/24 18:31 09/15/24 18:37 09/15/24 18:45 Temperature 98.4 F Temperature Source Oral Pulse Rate 62 58 L Pulse Strength Respiratory Rate 12 12 Respiratory Effort Respiratory Depth Respiratory Pattern Blood Pressure 113/60 113/60 Blood Pressure Mean 77 77 Blood Pressure Source Blood Pressure Position Blood Pressure Location Pulse Ox 93 96 Oxygen Delivery Method Room Air Room Air Nasal Cannula Oxygen Flow Rate (L/min) 2 09/15/24 18:55 09/15/24 19:25 09/15/24 19:46 Temperature 98.5 F Temperature Source Pulse Rate 58 L 61 63 Pulse Strength Respiratory Rate 12 18 17 Respiratory Effort Respiratory Depth Respiratory Pattern Blood Pressure 108/63 106/63 96/66 Blood Pressure Mean 78 77 76 Blood Pressure Source Blood Pressure Position Blood Pressure Location Pulse Ox 96 97 98 Oxygen Delivery Method Nasal Cannula Room Air Oxygen Flow Rate (L/min) 2 09/15/24 19:55 09/15/24 20:00 09/15/24 20:25 Temperature Temperature Source Pulse Rate 63 62 62 Pulse Strength Respiratory Rate 15 12 12 Respiratory Effort Respiratory Depth Respiratory Pattern Blood Pressure 96/66 90/70 106/47 L Blood Pressure Mean 76 76 66 Blood Pressure Source Blood Pressure Position Blood Pressure Location Pulse Ox 97 95 98 Oxygen Delivery Method Nasal Cannula Nasal Cannula Nasal Cannula Oxygen Flow Rate (L/min) 3 3 3 09/15/24 21:15 09/15/24 21:15 09/15/24 21:15 Temperature 98.4 F 98.4 F Temperature Source Oral Oral Pulse Rate 63 63 Pulse Strength Respiratory Rate 20 H 20 H Respiratory Effort Normal Non-Labored Respiratory Depth Normal Respiratory Pattern Normal Blood Pressure 106/61 106/61 Blood Pressure Mean 76 76 Blood Pressure Source Monitor Monitor Blood Pressure Position Semi-Fowlers Semi-Fowlers Blood Pressure Location Right Arm Right Arm Pulse Ox 94 94 Oxygen Delivery Method Nasal Cannula Nasal Cannula Nasal Cannula Oxygen Flow Rate (L/min) 2 2 2 09/15/24 22:00 09/16/24 00:01 09/16/24 00:01 Temperature Temperature Source Pulse Rate 63 Pulse Strength Normal (2+) Respiratory Rate 16 Respiratory Effort Respiratory Depth Respiratory Pattern Normal Blood Pressure Blood Pressure Mean Blood Pressure Source Blood Pressure Position Blood Pressure Location Pulse Ox 96 Oxygen Delivery Method Nasal Cannula Oxygen Flow Rate (L/min) 2 09/16/24 00:20 09/16/24 00:20 09/16/24 02:25 Temperature 98.1 F 98.1 F Temperature Source Oral Oral Pulse Rate 66 66 60 Pulse Strength Respiratory Rate 18 18 Respiratory Effort Respiratory Depth Respiratory Pattern Normal Blood Pressure 110/55 L 110/55 L Blood Pressure Mean 73 73 Blood Pressure Source Monitor Monitor Blood Pressure Position Semi-Fowlers Semi-Fowlers Blood Pressure Location Right Arm Right Arm Pulse Ox 94 94 Oxygen Delivery Method Nasal Cannula Nasal Cannula Oxygen Flow Rate (L/min) 2 2 09/16/24 04:20 09/16/24 04:20 09/16/24 06:44 Temperature 98.0 F 98.0 F Temperature Source Oral Oral Pulse Rate 66 66 74 Pulse Strength Respiratory Rate 18 18 16 Respiratory Effort Respiratory Depth Respiratory Pattern Normal Blood Pressure 113/62 113/62 Blood Pressure Mean 79 79 Blood Pressure Source Monitor Monitor Blood Pressure Position Semi-Fowlers Semi-Fowlers Blood Pressure Location Right Arm Right Arm Pulse Ox 96 96 Oxygen Delivery Method Nasal Cannula Nasal Cannula Oxygen Flow Rate (L/min) 2 2 09/16/24 06:44 09/16/24 08:20 09/16/24 08:20 Temperature 98.1 F Temperature Source Oral Pulse Rate 73 Pulse Strength Normal (2+) Respiratory Rate 18 Respiratory Effort Respiratory Depth Respiratory Pattern Blood Pressure 117/82 H Blood Pressure Mean 93 Blood Pressure Source Monitor Blood Pressure Position Semi-Fowlers Blood Pressure Location Right Arm Pulse Ox 96 94 Oxygen Delivery Method Nasal Cannula Room Air Oxygen Flow Rate (L/min) 2 09/16/24 08:20 09/16/24 11:38 09/16/24 14:00 Temperature 98.0 F Temperature Source Oral Pulse Rate 71 Pulse Strength Respiratory Rate 18 Respiratory Effort Normal Non-Labored Normal Non-Labored Respiratory Depth Normal Normal Respiratory Pattern Normal Normal Blood Pressure 115/63 Blood Pressure Mean 80 Blood Pressure Source Monitor Blood Pressure Position Semi-Fowlers Blood Pressure Location Left Arm Pulse Ox 96 Oxygen Delivery Method Nasal Cannula Room Air Room Air Oxygen Flow Rate (L/min) 2 Weight Weight: 111.3 kg Body Mass Index (BMI) 42.1 EEG Results Procedure Details EEG Procedure Details: NATHALIE HERMAN is a 63 year old F with a past medical history of , who presents for evaluation of Electroencephalogram on DATE at TIME NIHSS NIHSS Nursing Documentation NIHSS Nursing Documentation: NIHSS: Ischemic Stroke/TIA Start: 09/15/24 21:09 Text: For PCU Patients: NIH and Neuro Check every 4 Status: Complete hours, PRN and with change in RN caregiver. Freq: [id number] Protocol: Activity Type Activity Date Activity User E-sign Co-sign Detail Recorded Client Recorded Date Recorded By Document 09/16/24 08:20 AMG [id number] 09/16/24 08:53 AMG 09/16/24 08:20 NIH Stroke Scale [NIHSS] A score of 0 is normal or asymptomatic . Total possible score is 42. Inpatient: RN or Physician to activate a stroke alert for onset of new stroke symptoms or with NIHSS increase >/= 3 points. Following change in neurological status, NIHSS will be performed per physician order or more frequently PRN. -1a. Level of Consciousness Alert; keenly responsive -1b. LOC Questions Answers BOTH questions correctly. -1c. LOC Commands Performs both tasks correctly . -2. Best Gaze Normal -3. Visual No visual loss -4. Facial Palsy Normal symmetrical movements -5a. Left Arm No drift; arm holds 90 (or 45 ) degrees for full 10 seconds -5b. Right Arm Drift; arm drifts downward but doesn?t hit the bed -6a. Left Leg No drift; leg holds 30-degree position for full 5 seconds -6b. Right Leg Some effort against gravity ; -7. Limb Ataxia Absent -8. Sensory Mild-to- moderate sensory loss; -9. Best Language No aphasia; normal -10. Dysarthria Normal -11. Extinction and Inattention No abnormality -Total 4 Query Text:A score of 0 is normal or asymptomatic. Total possible score is 42 . ED: Notify Physician for NIHSS increase by > / = 3 points. Inpatient: RN or Physician to activate a stroke alert for NIHSS increase of > / = 3 points. Coma Scale [Assess] -Eye Opening Spontaneous -Motor Obeys Commands -Verbal Oriented [Total] -Coma Scale Total 15 NIHSS 1a. Level of Consciousness: Alert; keenly responsive 1b. LOC Questions: Answers BOTH questions correctly. 1c. LOC Commands: Performs both tasks correctly. 2. Best Gaze: Normal 3. Visual: No visual loss 4. Facial Palsy: Normal symmetrical movements 5a. Left Arm: No drift; arm holds 90 (or 45) degrees for full 10 seconds 5b. Right Arm: Drift; arm drifts downward but doesn?t hit the bed 6a. Left Leg: No drift; leg holds 30-degree position for full 5 seconds 6b. Right Leg: Drift; leg falls by the end of 5-seconds, but does not hit bed 7. Limb Ataxia: Absent 8. Sensory: Normal; no sensory loss 9. Best Language: No aphasia; normal 10. Dysarthria: Normal 11. Extinction and Inattention: No abnormality Total: 2 Lab / Micro Data 09/15/24 18:30 09/15/24 18:30 Labs: Laboratory Results - last 24 hr 09/15/24 18:30: WBC 9.6, RBC 4.97, Hgb 14.7, Hct 44.2, MCV 88.9, MCH 29.6, MCHC 33.3, RDW Std Deviation 47.7 H, RDW Coeff of Carmencita 14.7 H, Plt Count 238, MPV 10.6, Immature Gran % (Auto) 1.100 H, Neut % (Auto) 68.2, Lymph % (Auto) 19.3, Mcdonald % (Auto) 9.7, Eos % (Auto) 0.9, Baso % (Auto) 0.8, Absolute Neuts (auto) 6.6, Absolute Lymphs (auto) 1.85, Nucleated RBC % 0, PT 21.8 H, INR 1.9, APTT 37.0 H, Sodium 137, Potassium 5.0, Chloride 106, Carbon Dioxide 26.0, Anion Gap 5, BUN 29 H, Creatinine 1.40 H, Estim Creat Clear Calc 47.95, Est GFR (MDRD) Af Amer 49 L, Est GFR (MDRD) Non-Af 40 L, BUN/Creatinine Ratio 20.7 H, Glucose 138 H, Hemoglobin A1c 6.5 H, Calcium 9.4, Troponin I High Sens 16, TSH 1.050 09/15/24 23:01: POC Glucose 153 H 09/16/24 06:05: PT 21.8 H, INR 1.9, Triglycerides 327 H, Cholesterol 161, LDL Cholesterol 59, VLDL Cholesterol 65 H, HDL Cholesterol 37 L 09/16/24 06:57: POC Glucose 123 H 09/16/24 11:49: POC Glucose 191 H Rhythm Strip Rhythm Strip: Sinus Rhythm Rate: 58 Ectopy: None Imaging Radiology Impression Brain CT 09/15/24 18:25 IMPRESSION: Chronic involutional changes of the brain. 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 Recommend ENT consultation. N.B. : The above Results were Read Back by Joon Grove MD to Jaya Douglass MD, and understanding confirmed on 09/15/2024 18:48:32 (ET). Electronically Signed: Joon Grove MD at 18:38 EST Reading Location ID and State: [facility] / MD , Service support , Head/Neck CTA 09/15/24 18:25 IMPRESSION: There is plaque with mild, less than 50%, narrowing of the internal carotid arteries. There is no hemodynamically significant internal carotid artery stenosis. No intracranial aneurysm or large vessel occlusion. Electronically Signed: Joon Grove MD at 18:57 EST , ADDENDUM: 09/15/24 1905 IMPRESSION: There is plaque with mild, less than 50%, narrowing of the internal carotid arteries. There is no hemodynamically significant internal carotid artery stenosis. No intracranial aneurysm or large vessel occlusion. N.B. : The above Results were Read Back by Joon Grove MD to Jaya Douglass MD, and understanding confirmed on 09/15/2024 18:58:34 (ET). Electronically Signed: Joon Grove MD at 18:57 EST , Chest X-Ray 09/15/24 19:40 IMPRESSION: Degenerative changes, as described above. No demonstrated acute cardiopulmonary process. Electronically Signed: Joon Grove MD at 20:24 EST , Echocardiogram 09/15/24 20:13 Interpretation Summary The estimated ejection fraction is 70 %. Unable to assess diastolic dysfunction. Moderate mitral valve stenosis. Severe aortic stenosis. Moderately severe (3+) aortic valve insufficiency. Ordering Physician: Michael De Los Santos Referring Physician: Ophelia Soria M.D. Performed By: Crystal An RDCS and Student Brain MRI 09/16/24 09:30 IMPRESSION: 1. Involutional and chronic ischemic changes of the brain, as described above. Electronically Signed: Rodrigue Hood MD at 10:11 EST , Active Medications Active Medications Active Medications: Current Medications Generic Name Dose Route Start Last Admin Trade Name Freq PRN Reason Stop Dose Admin Acetaminophen 1,000 mg 09/15/24 21:09 09/16/24 11:42 Acetaminophen 500 Mg Tablet PO 1,000 mg Q8H PRN PRN Administration Pain 1-5/10 or Fever Albuterol Sulfate 2.5 mg 09/15/24 21:09 Albuterol 2.5 Mg/3 Ml Vial.Neb. INHALATION Q2H PRN PRN dyspnea, wheezing Albuterol/Ipratropium 3 ml 09/16/24 00:00 09/16/24 06:44 Ipratropium/Albuterol Sulfate 3 Ml Ampul.Neb INHALATION 3 ml Q6HWA.RT PHANI Administration Ascorbic Acid 1,000 mg 09/16/24 10:00 09/16/24 11:40 Ascorbic Acid 500 Mg Tablet PO 1,000 mg DAILY PHANI Administration Atorvastatin Calcium 20 mg 09/15/24 22:00 09/15/24 22:56 Atorvastatin Calcium 20 Mg Tablet PO Not Given QHS PHANI Azelastine HCl 2 spray 09/16/24 10:00 09/16/24 11:01 Azelastine Hcl Nasal.Sry NASAL 2 spray BID PHANI Administration Budesonide 0.5 mg 09/16/24 06:00 09/16/24 06:44 Budesonide Respules 0.5 Mg/2 Ml Ampul.Neb. INHALATION 0.5 mg Q12H.RT PHANI Administration Cholecalciferol 125 mcg 09/16/24 10:00 09/16/24 11:40 Cholecalciferol (Vit D3) 125 Mcg Capsule (5,000 Units) PO 125 mcg DAILY PHANI Administration Clobetasol Propionate 1 applic 09/15/24 21:09 Clobetasol Propionate 0.05% Cream TOPICAL BID PRN PRN RASH/ITCHING Protocol Diltiazem HCl 240 mg 09/16/24 10:00 09/16/24 11:39 Diltiazem Cd 240 Mg Capsule PO 240 mg DAILY PHANI Administration Protocol Docusate Sodium 100 mg 09/16/24 10:00 09/16/24 11:41 Docusate Sodium 100 Mg Capsule PO 100 mg DAILY PHANI Administration Fenofibrate 72.5 mg 09/15/24 22:00 09/15/24 22:57 Fenofibrate 145 Mg Tablet PO Not Given QHS PHANI Fluoxetine HCl 40 mg 09/16/24 10:00 09/16/24 11:41 Fluoxetine Hcl 40 Mg Capsule PO 40 mg DAILY PHANI Administration Fluticasone Propionate 2 spray 09/16/24 10:00 09/16/24 11:01 Fluticasone 0.05% 1 Julian Nasal.Sry NASAL 2 spray BID PHANI Administration Sodium Chloride 1,000 mls @ 50 mls/hr 09/15/24 21:09 09/16/24 10:06 IV 09/16/24 17:08 50 mls/hr .Q20H PHANI Infusion Protocol Sodium Chloride 500 mls @ 15 mls/hr 09/15/24 21:22 IV .[id number] PRN Saline Flush Sodium Chloride 500 mls @ 15 mls/hr 09/15/24 21:22 IV .[id number] PRN Additional IVPB Infusion Insulin Glargine 35 unit 09/15/24 22:00 09/16/24 11:50 Insulin Glargine-Yfgn 100 Unit/Ml Pen SC 35 unit BID PHANI Administration Labetalol HCl 20 mg 09/15/24 18:24 Labetalol (Prefilled) 20 Mg/4 Ml Vial IV 09/16/24 18:25 X1 PRN BLOOD PRESSURE Loratadine 10 mg 09/16/24 10:00 09/16/24 11:41 Loratadine 10 Mg Tablet PO 10 mg DAILY PHANI Administration Magnesium Chloride 128 mg 09/16/24 10:00 09/16/24 11:41 Magnesium Chloride 64 Mg Delay Rel.Tablet PO 128 mg DAILY PHANI Administration Meclizine HCl 25 mg 09/15/24 21:09 Meclizine Hcl 25 Mg Tablet PO DAILY PRN PRN Vertigo Melatonin 10 mg 09/15/24 22:00 09/15/24 22:57 Melatonin 10 Mg Tablet PO Not Given QHS PHANI Methocarbamol 500 mg 09/15/24 21:09 09/16/24 14:02 Methocarbamol 500 Mg Tablet PO 500 mg 4X/DAY PRN PRN Administration Muscle relaxer Montelukast Sodium 10 mg 09/16/24 10:00 09/16/24 11:39 Montelukast 10 Mg Tablet PO 10 mg DAILY PHANI Administration Morphine Sulfate 2 mg 09/16/24 06:44 09/16/24 10:58 Morphine 2 Mg/Ml Syringe IV 2 mg Q4H PRN PRN Administration Pain Score 6-10 Multivitamins 1 tablet 09/16/24 08:00 09/16/24 11:39 Multivitamins,Therapeutic Tablet PO 1 tablet DAILYCM PHANI Administration Nystatin 1 applic 09/15/24 21:09 Nystatin Powder 15gm Bottle TOPICAL BID PRN PRN YEAST Protocol Ondansetron HCl 4 mg 09/15/24 21:09 Ondansetron Odt 4 Mg Tablet PO DAILY PRN PRN nausea Oxycodone HCl 5 mg 09/15/24 21:09 09/16/24 11:41 Oxycodone 5 Mg Tablet PO 5 mg 4X/DAY PRN PRN Administration Pain Score 6-10 Pantoprazole Sodium 40 mg 09/15/24 22:00 09/16/24 11:39 Pantoprazole Sodium 40 Mg Tablet PO 40 mg BID PHANI Administration Polyethylene Glycol 17 gm 09/16/24 10:00 09/16/24 11:41 Polyethylene Glycol 3350 17 Gm Packet PO 17 gm DAILY PHANI Administration Pregabalin 150 mg 09/15/24 22:00 09/16/24 11:42 Pregabalin 75 Mg Capsule PO 150 mg TID PHANI Administration Senna 1 tablet 09/15/24 22:00 09/16/24 11:40 Senna Tablet PO 1 tablet BID PHANI Administration Senna/Docusate Sodium 2 tablet 09/15/24 21:09 Senna/Docusate Sodium 1 Tablet PO DAILY PRN PRN constipation Sodium Chloride 10 - 40 ml 09/15/24 21:22 09/16/24 06:51 0.9% Saline Lock 10 Ml Syringe IV 10 ml UD PRN Administration SALINE FLUSH Trazodone HCl 50 mg 09/15/24 22:00 09/15/24 22:56 Trazodone 50 Mg Tablet PO Not Given QHS PHANI Warfarin Sodium 10 mg 09/16/24 17:00 Warfarin 5 Mg Tablet PO 1700 PHANI Zinc Sulfate 100 mg 09/16/24 10:00 09/16/24 11:39 Zinc Sulfate 50 Mg Zinc (220 Mg) Oral Capsule PO 100 mg DAILY PHANI Administration
[2024-09-16 16:42] LABS: Bedside Glucose 130 mg/dL (74-106)
[2024-09-16] MEDS: Topiramate 50 MG Tablet PO ×2 (17:02→21:09)
[2024-09-16] MEDS: Ibuprofen 600 MG Tablet PO (17:03)
[2024-09-16] MEDS: traZODone 50 MG Tablet PO (21:03)
[2024-09-16] MEDS: Atorvastatin Calcium 40 MG Tablet PO (21:03)
[2024-09-16] MEDS: MELATONIN 10 MG TABLET PO (21:03)
[2024-09-16] MEDS: Fenofibrate 145 MG Tablet 72.5 MG PO (21:08)
[2024-09-16] MEDS: Senna/Docusate Sodium 1 Tablet 2 TABLET PO (21:20)
[2024-09-16 21:35] LABS: Bedside Glucose 149 mg/dL (74-106)
[2024-09-17 00:29] VITALS: BMI 42.1
[2024-09-17 03:00] VITALS: BP 129/64; PULSE 62; RESP 20; TEMP 36.6; O2SAT 94
[2024-09-17] MEDS: oxyCODONE 5 MG Tablet PO (06:05)
[2024-09-17] MEDS: Pregabalin 75 MG Capsule 150 MG PO (06:05)
[2024-09-17] MEDS: Acetaminophen 500 MG Tablet 1000 MG PO (06:06)
[2024-09-17 06:10] VITALS: BP 129/62; PULSE 65; RESP 18; TEMP 36.7; O2SAT 95
[2024-09-17 06:41] VITALS: PULSE 72; RESP 16; O2SAT 94
[2024-09-17] MEDS: Budesonide Respules 0.5 MG/2 ML AMPUL.NEB. INHALATION (06:41)
[2024-09-17] MEDS: Ipratropium/Albuterol Sulfate 3 ML AMPUL.NEB INHALATION ×2 (06:41→13:24)
[2024-09-17 07:01] LABS: Bedside Glucose 129 mg/dL (74-106)
[2024-09-17 08:11] LABS: Absolute Lymphocyte Count 2.34 X10^3/uL (0.83-4.51); Absolute Neutrophil Count 3.6 X10^3/uL (2.0-7.7); Basophil# 0.06 X10^3/uL; Basophil% 0.9 % (0-1); Eosinophil# 0.12 X10^3/uL; Eosinophils% 1.7 % (0-5); Hematocrit 42.3 % (37-47); Hemoglobin 13.1 g/dL (12.0-15.0); Lymphocyte # 2.34 X10^3/ul (0.83-4.51); Lymphocyte % 33.9 % (19-41); Mean Corpuscular Hgb 28.2 pg (27.0-32.0); Mean Corpuscular Volume 91.2 fL (81-99); Mean Platelet Vol. 10.6 fl (6.2-12.0); Monocyte# 0.69 X10^3/uL; NRBC Flagged by Analyzer 0 % (0-5); Neutrophil # 3.62 X10^3/uL (2.7-7.7); Neutrophil % 52.5 % (47-70); Platelet Count 200 K/mm3 (150-450); RBC Distribution Width CV 14.8 % (11.6-14.6); RBC Distribution Width SD 49.6 fl (35.1-43.9); Red Blood Count 4.64 M/mm3 (4.2-5.4); White Blood Count 6.9 K/mm3 (4.4-11.0)
[2024-09-17 08:20] LABS: International Normalized Ratio 1.7; Prothrombin Time (Protime)PT. 19.6 SECONDS (11.7-14.9)
[2024-09-17 08:36] LABS: Anion Gap 6 (5-15); BUN 24 mg/dL (7-18); BUN/Creat Ratio 21.6 RATIO (10-20); Calcium,Total 8.4 mg/dL (8.5-10.1); Chloride 105 mmol/L (98-107); Creatinine, Serum 1.11 mg/dL (0.55-1.02); EST Glomerular Filtration Rate 53 mL/min (>60); Est Glom Filt Rate - Afr Amer 64 mL/min (>60); Estimated Creatinine Clearance 62.51 ml/min; Glucose 123 mg/dL (74-106); Potassium 4.4 mmol/L (3.5-5.1); Sodium Level 136 mmol/L (136-145)
[2024-09-17 09:43] VITALS: BP 127/59; PULSE 70; RESP 16; TEMP 36.8; O2SAT 95
[2024-09-17] MEDS: Morphine 2 MG/ML Syringe IV (09:45)
[2024-09-17] MEDS: Lactobacillis Acidophilus 1 CAP PO (09:47)
[2024-09-17] MEDS: Multivitamins,Therapeutic Tablet 1 TABLET PO (09:47)
[2024-09-17] MEDS: 0.9% Saline Lock 10 ML Syringe IV (09:47)
[2024-09-17] MEDS: Loratadine 10 MG Tablet PO (09:48)
[2024-09-17] MEDS: dilTIAZem CD 240 MG Capsule PO (09:48)
[2024-09-17] MEDS: Docusate Sodium 100 MG Capsule PO (09:48)
[2024-09-17] MEDS: Magnesium Chloride 64 MG Delay Rel.Tablet 128 MG PO (09:48)
[2024-09-17] MEDS: Pantoprazole Sodium 40 MG Tablet PO (09:49)
[2024-09-17] MEDS: Montelukast 10 MG Tablet PO (09:49)
[2024-09-17] MEDS: Polyethylene Glycol 3350 17 GM PACKET PO (09:49)
[2024-09-17] MEDS: Ascorbic Acid 500 MG Tablet 1000 MG PO (09:49)
[2024-09-17] MEDS: Fluoxetine HCl 40 MG CAPSULE PO (09:49)
[2024-09-17] MEDS: Topiramate 50 MG Tablet PO (09:49)
[2024-09-17] MEDS: Zinc Sulfate 50 mg zinc (220 mg) ORAL capsule 100 MG PO (09:50)
[2024-09-17] MEDS: Cholecalciferol (Vit D3) 125 MCG CAPSULE (5,000 UNITS) PO (09:50)
[2024-09-17] MEDS: Fluticasone 0.05% 1 SPRAY NASAL.SRY 2 SPRAY NASAL (09:51)
[2024-09-17] MEDS: Azelastine HCl NASAL.SRY 2 SPRAY NASAL (09:51)
--- NOTE | 2024-09-17 10:41 | ST.MBS ---
Modified Barium Swallow Patient Information Study Date: 09/17/24 Study Time: 10:00 Direct Billable Minutes: 117 Total Minutes procedure & reportin Diagnosis: COPD J44.9 Referring Physician: Ramiro Carey Reason for Referral: Pt presented to [facility] ED 09/17/2024 w/ right-sided weakness, slurred speech, facial numbness and headache. She was admitted to the PCU under observation status for completion of her stroke workup. Brain MRI negative for CVA. Pt referred for ST as part of ST work up. Pt reported complaints of swallowing difficulty. BSE recommended regular textures / thin liquids w/ use of safe swallowing precautions and plan for MBSS to further assess aspiration risk due to coughing w/ thin liquids (particularly sequential sips). Pt reports hx of dysphagia s/p neck surgery in 2006 w/ need for liquids and soft solids for 6mo after surgery. Since her recovery, she reports little swallowing difficulty. Regurgitation 1-2X/year. Occ coughing w/ liquids, which has worsened today. Medical History: PMH: Migraine headache, Rectal bleeding, History of transcatheter aortic valve replacement (~04/19/21), COVID-19, Depression, Anxiety, Insulin dependent diabetes mellitus, Arthritis. High cholesterol, PE, Easy bruising, Excessive bleeding, Restless legs, Back pain, TIA, Non-smoker, BiPAP dependence, On home oxygen therapy, SOB on exertion, Hx of DVT, Back pain with sciatica, HTN, CAD, Atherosclerotic heart disease of [place] coronary artery without angina pectoris, Personal history of anaphylaxis, Bilateral carotid bruits, Diastolic heart failure, COPD, CHELSEY w/ BiPAP, Morbid obesity, Asthma. Surgical Hx: Neck surgery (unspecified in EMR) (2006). See EMR for full surgical and PMH. Current Diet Ordered: Regular textures / Thin liquids Dentition: Natural Teeth and Decay Mental Status: WNL Respiratory Status: Oxygenating on Room Air Penetration-Aspiration Scale Penetration-Aspiration Scale: OBJECTIVE ASSESSMENT OF SWALLOW FUNCTION (QUANTITATIVE ? PER TRIAL): PENETRATION / ASPIRATION SCALE ([place]): 1 = does not enter airway 2 = enters airway/above vocal folds/ejected 3 = enters airway/above vocal folds/not ejected 4 = enters airway/contacts vocal folds/ejected 5 = enters airway/contacts vocal folds/not ejected 6 = enters airway/below vocal folds/ejected 7 = enters airway/below vocal folds/not ejected despite effort 8 = enters airway/below vocal folds/no effort VIDEOFLOROSCOPIC SCALE SCORE ([place]OD): Grade I = aspiration of material that has penetrated into the laryngeal vestibule, intact cough reflex Grade II = aspiration < 10 % of the bolus, intact cough reflex Grade III = aspiration of < 10 % of the bolus, reduced cough reflex or aspiration of > 10 % of the bolus, intact cough reflex Grade IV = aspiration of > 10 % of the bolus, reduced cough reflex Penetration-Aspiration Scale Score Thin Liquid via teaspoon: Result: 1= does not enter airway Thin Liquid via teaspoon Trial 2: Result: 1= does not enter airway Thin Liquid via large single sip: cup: Result: 2= enter airway/above vocal folds/ejected Thin Liquid via sequential sips: cup: Result: 3= enters airways/above vocal folds/not ejected Comment: Coughing episode immediately followed trial with resulting retrograde flow of liquids. After coughing episode was completed, esophageal screen revealed only mild retention of liquid barium in middle esophagus w/ retrograde flow. [place] Thick Liquid via large single sip: cup: Result: 1= does not enter airway Pudding via teaspoon: Result: 1= does not enter airway Comment: Esophageal screen - Retention throughout the esophagus. Thin Liquid via single sip: straw Effortful swallow: Result: 1= does not enter airway Comment: Esophageal screen - Liquid wash cleared a majority of pudding in the esophagus, but continued mild-moderate retention in the upper-middle esophagus. 1/2 Cookie: Result: 1= does not enter airway Comment: Retention of cookie in the upper esophagus. Thin Liquid via large single sip: cup Effortful swallow: Result: 2= enter airway/above vocal folds/ejected Comment: Esophageal screen - Mild retention in the upper and middle esophagus w/ retrograde flow. Oral Phase Labial Seal: No Labial Escape Tongue Control During Bolus Hold: Posterior escape of less than half of bolus Bolus Preparation/Mastication: Disorganized chewing/mashing with solid pieces of bolus unchewed (Timely mastication; however, small pieces of cookie appeared un-chewed) Bolus Transport/Lingual Motion: Brisk tongue motion Oral Residue: Residue collection on oral structures Pharyngeal Phase Initiation of Pharyngeal Swallow: Bolus head in pyriforms Soft Palate Elevation: Trace column of contrast/air between soft palate and pharyngeal wall Laryngeal Elevation: Comp. Superior move thyroid cart w/comp. apprx arytenoid cart-epig pet Anterior Hyoid Excursion: Partial anterior movement Epiglottic Movement: Complete inversion Laryngeal Vestibule Closure at Height of Swallow: Incomplete; narrow column of air/contrast in laryngeal vestibule Pharyngeal Stripping Wave: Present - diminished Pharyngoesophageal Segment Opening: Complete distension and complete duration; no obstruction of flow Tongue Base Retraction: Wide column of contrast between tongue base & post. pharyngeal wall Pharyngeal Residue: Collection of residue within or on pharyngeal structures Esophageal Phase Esophageal Clearance: Esophageal retention w/ retrograde flow below pharyngoesophageal seg. Diagnosis/Impression Diagnosis: Mild oropharyngeal dysphagia R13.12; Esophageal dysphagia R13.14 Impression: The oral phase is primarily marked by... -Mildly decreased bolus control w/ mild posterior loss of large and/or sequential sips of thin liquids. -Quick mastication; however, small pieces appeared un-chewed. The pharyngeal phase is primarily marked by... -Delayed swallow onset w/ majority of thin liquid boluses in the pyriforms at swallow onset. -Decreased TB retraction and pharyngeal stripping wave w/ mild-moderate pharyngeal residues, which mostly cleared w/ independent use of a second swallow as needed. -Decreased anterior hyoid excursion and delayed swallow onset w/ laryngeal penetration during the swallow; however, complete laryngeal elevation fully ejected contrast from the larynx after the swallow. No aspiration was observed despite coughing after 2 trials. Effortful swallows and small sips decreased laryngeal penetration and risk for aspiration. The esophageal phase is primarily marked by... -Esophageal retention of pudding throughout the esophagus, which somewhat improved w/ liquid wash. -Mild retention of liquids w/ retrograde flow remaining well below the UES. Recommendations Diet: Regular Textures and Thin Liquids Comment: STOP eating/drinking if increased s/s of reflux, sensation of retention, or regurgitation despite use of strategies and resume meal at a later time. Compensatory Strategies: Small Bites (Chew thoroughly), Small Sips (Effortful swallows), Slow Rate, Alternate bites/solids and sips/liquids (1:1 ratio) and Sitting upright (During and 30 min after po intake) Recommend Repeat Modified Barium Swallow: TBD Need for Skilled Speech Therapy Services: Yes Comment: Recommend OP dysphagia therapy. POC to include the following... -Train the patient in use of strategies to decrease risk for aspiration and reflux aspiration. -Ongoing assessment of diet tolerance of recommended textures. -Train the patient in oropharyngeal exercise program to improve swallow onset, TB retraction, and pharyngeal contraction (Maria Elena, Yadira, Effortful). Recommended Referrals: GI Consult (OP GI follow-up, especially if worsening s/s of reflux or regurgitation of foods. Pt requested [employer] send this report directly to Dr. Alcantar.) Education Completed: 1. Described result of evaluation. and 2. Pt understands evaluation & agrees with goals and treatment plan. Status Active ST Patient: Active Contact Information [facility] Speech Therapy:: Aminta Herrera M.A. [facility] [employer] [facility]SULTANT? Speech-Language Pathologist?? [facility] [address] [place] [address]? [email or web address]?? [phone]
--- NOTE | 2024-09-17 10:49 | DCINST_ITS ---
Discharge Instructions DC O2, CPAP, BIPAP needs PSN CPAP & BiPAP: BiPAP & CPAP Settings per PSN Mode BiPAP 09/17/24 03:45 Bipap Delivery Device Face Mask 09/17/24 03:45 BiPAP Inspiratory Pressure 17 09/17/24 03:45 BiPAP Expiratory Pressure 11 09/17/24 03:45 Total Flow Rate 2 09/17/24 03:45 Additional Home O2 Discharge instructions: No Follow Up Care Test Results: Test results from this visit will be discussed in further detail at your follow- up appointment, if applicable. Discharge Plan Admission Admit Date/Time: 09/15/24 20:02 Primary Reason for Your Visit: Complicated migraine Attending Provider: Ramiro Carey Primary Care Provider: Ophelia Soria Consulting Providers: Christian Covarrubias; Don Bansal; Estefani Goldstein; Katherine Walker; Vandana Kumari; Alexander Gregg; Evangelina Fried; Emir Garner; Denis Xiao; Colin Fofana; Mely Jim; Kamran Limon; Michelle Huston; Lev Obrien; Melinda León; Chris Hammond; Yahaira Vincent; Dwayne Werner; Lisa Lemus; Shannon Saeed; Michael De Los Santos Instructions Additional Instructions / Restrictions: Total warfarin 12 mg daily. Advised INR in 3 days, on 09/20/2024 follow-up PCP to titrate the dose of warfarin. Discharge Orders/Prescriptions Prescriptions: New topiramate 50 mg Tablet 50 mg PO BID 30 Days Qty: 60 0RF warfarin 2 mg tablet 2 mg PO DAILY 30 Days Qty: 30 0RF Rx Instructions: Hold for INR more than 2.5 Continued trazodone 50 mg tablet 50 mg PO QHS albuterol sulfate 2.5 mg /3 mL (0.083 %) solution for nebulization 2.5 mg INHALATION Q2H PRN PRN (Reason: dyspnea, wheezing) Qty: 180 6RF albuterol sulfate 90 mcg/actuation HFA aerosol inhaler 2 inh INHALATION Q4H PRN PRN (Reason: Sob &/Or Wheezing) Qty: 18 6RF montelukast 10 mg tablet 10 mg PO DAILY Qty: 30 6RF alendronate 70 mg tablet 70 mg PO WE nystatin 100,000 unit/gram powder 1 applic TOPICAL BID PRN PRN (Reason: YEAST) meclizine 25 mg tablet 25 mg PO DAILY PRN (Reason: Vertigo) magnesium 250 mg tablet 400 mg PO DAILY levocetirizine 5 mg tablet 5 mg PO DAILY clobetasol 0.05 % cream 1 applic topical PRN PRN (Reason: RASH/ITCHING) chromium picolinate 200 mcg tablet 200 mcg PO DAILY coconut oil 1,000 mg capsule 1,000 mg PO DAILY ascorbate calcium (vitamin C) 500 mg tablet 1 g PO DAILY (DME) Hydrocortisone 2.5%/lidocaine 5% suppository (cmpd) Suppository See Rx Instructions .Route Qty: 30 1RF Rx Instructions: insert rectally twice daily x 2 weeks diltiazem HCl 240 mg capsule,extended release 24hr 240 mg PO QDAY spironolactone 50 mg tablet 50 mg PO DAILY Qty: 30 11RF Rx Instructions: Take at evening meal with Losartan polyethylene glycol 3350 17 gram powder in packet 17 g PO QDAY Rx Instructions: OTC methocarbamol 500 mg tablet 500 mg PO .COMPLEX PRN (Reason: ASK PCP) Rx Instructions: 500 mg orally FOUR TIMES DAILY PRN; fluoxetine 20 MG capsule 40 mg PO DAILY Patient Comments: Depression/anxiety docusate sodium 100 mg capsule 100 mg PO DAILY Patient Comments: Stool softner [id number] 1 EACH tablet,chewable 1 ea PO DAILY fenofibrate nanocrystallized 145 MG tablet 72.5 mg PO QHS ipratropium-albuterol 0.5 mg-3 mg(2.5 mg base)/3 mL solution for nebulization 3 ml INHALATION BID Rx Instructions: Continue until re-evaluation per pulmonary with possible transition back to home regimen at that time. budesonide-formoterol 160-4.5 mcg/actuation HFA aerosol inhaler 2 puff INHALATION BID beclomethasone dipropionate 80 mcg/actuation HFA aerosol breath activated 1 inh inhalation BID furosemide 40 mg tablet 80 mg PO BID Rx Instructions: take on Friday, Friday, Friday cyanocobalamin (vitamin B-12) [Vitamin B-12] 100 mcg Tablet 100 mcg PO DAILY pregabalin 150 mg capsule 150 mg PO TID melatonin 10 mg Tablet 12 mg PO QHS pitavastatin calcium [Livalo] 4 mg tablet 4 mg PO DAILY dapagliflozin propanediol [Farxiga] 10 mg tablet 10 mg PO DAILY Ozempic 1 mg/dose (4 mg/3 mL) pen injector 1 mg subcut ECHEVARRIA tiotropium bromide 18 mcg capsule, w/inhalation device 18 mcg inhalation DAILY Rx Instructions: puncture 1 cap using device; one dose = 2 inhalations multivitamin [Daily Multi-Vitamin] Tablet 1 tab PO DAILY quercetin 500 mg capsule 500 mg PO DAILY rizatriptan [Maxalt] 10 mg tablet 10 mg PO Q2H PRN (Reason: migraine headache) Qty: 10 0RF Rx Instructions: do not exceed 3 doses per 24 hrs Aimovig Autoinjector 70 mg/mL auto-injector 70 mg subcut QMONTH Qty: 1 0RF Patient Comments: pt requeste to stop taking Rx Instructions: per patient's normal routine. cholecalciferol (vitamin D3) [Vitamin D3] 125 mcg (5,000 unit) tablet 125 mcg PO DAILY azelastine-fluticasone 137-50 mcg/spray spray,non-aerosol 2 spray intranasal BID Rx Instructions: administer into each nostril acetaminophen 500 mg Tablet 1,000 mg PO Q8 PRN (Reason: pain) sennosides [senna] 8.6 mg Tablet 17.2 mg PO BID Qty: 120 0RF Rx Instructions: OTC ondansetron 4 mg tablet,disintegrating 4 mg PO DAILY PRN (Reason: nausea) oxycodone-acetaminophen 5-325 mg tablet 1 tab PO BID sennosides-docusate sodium 8.6-50 mg tablet 2 tab-cap PO DAILY PRN (Reason: constipation) black seed oil 10,000 mg PO DAILY Acidophilus Tablet,Chewable 1 tab PO DAILY Patient Comments: 175 mg tab zinc 100 mg tablet 100 mg PO DAILY cyclobenzaprine 10 mg tablet 10 mg PO BID PRN PRN (Reason: muscle spasm) polyethylene glycol 3350 [ClearLax] 17 gram/dose powder 8.5 g PO QDAY PRN (Reason: constipation) oxycodone 5 mg tablet 5 mg PO 4X/DAY PRN PRN (Reason: pain) tizanidine 4 mg capsule 4 mg PO BID PRN (Reason: muscle spasticity) tiotropium bromide [Spiriva Respimat] inhalation DAILY PRN (Reason: SOB) epinephrine 0.3 mg/0.3 mL auto-injector 0.3 mg IM X1 PRN (Reason: Anaphylaxis) Qty: 1 0RF diltiazem HCl [Cardizem CD] 120 mg capsule,extended release 24hr 120 mg PO .COMPLEX Patient Comments: as directed by doctor Rx Instructions: 120 mg orally daily PRN BP > 170 per PCP.; warfarin 10 mg tablet 10 mg PO DAILY Changed omeprazole 40 mg capsule,delayed release(DR/EC) 40 mg PO DAILY 30 Days Qty: 0 0RF insulin glargine U-300 conc [Toujeo SoloStar U-300 Insulin] 300 unit/mL (1.5 mL) insulin pen 35 unit SUBCUT BID 30 Days Qty: 0 0RF Patient Comments: INJECT 50 UNITSESUBCUTANEOUSLY JUNIOR Rx Instructions: TOUJEO Held losartan 50 mg tablet 50 mg PO DAILY Hold Instructions: Hold for 5 days Discontinued vitamin K2 45 mcg capsule 100 mcg PO DAILY budesonide-formoterol [Breyna] 80-4.5 mcg/actuation HFA aerosol inhaler 1 inh inhalation BID potassium chloride 10 mEq capsule, extended release 10 meq PO DAILY Qty: 90 3RF Referrals / Follow Up: Ophelia Soria DO [Primary Care Provider] - Disposition Disposition (needs filled in before D/C Order can be placed): Home, Self Care
--- NOTE | 2024-09-17 10:59 | PCM.DC.SUM ---
Providers Date of Admission: 09/15/24 Date of Discharge: 09/17/24 Primary Care Physician: Dr. Ophelia Soria, Consultations 09/15/24 21:09 Consult: Tele-Neurology Routine Consulting Provider: [facility] Reason for Consult: Acute Ischemic Stroke/TIA EMERGENT Consult: No MD Notified: Yes Date Notified: 09/15/24 Time Notified: 20:08 Method of Notification: ED Physician Initiated Nursing Unit Staff Notify [facility] of Tele-Neurology Consult: Yes Reason For Visit: STROKE Diagnosis Discharge Diagnosis (1) Acute right-sided weakness: Status: Acute Code(s): R53.1 - Weakness (2) Migraine headache: Status: Acute Code(s): G43.909 - Migraine, unspecified, not intractable, without status migrainosus Qualifiers: Migraine type: without aura Status migrainosus presence: without status migrainosus Intractability: intractable Qualified Code(s): G43.019 - Migraine without aura, intractable, without status migrainosus (3) History of TIA (transient ischemic attack): Status: Acute Code(s): Z86.73 - Personal history of transient ischemic attack (TIA), and cerebral infarction without residual deficits (4) emt intermediate current use of anticoagulant: Status: Acute Code(s): Z79.01 - senior care (current) use of anticoagulants (5) Subtherapeutic international normalized ratio (INR): Status: Acute Code(s): R79.1 - Abnormal coagulation profile (6) Aortic stenosis: Status: Chronic Code(s): I35.0 - Nonrheumatic aortic (valve) stenosis Qualifiers: Cardiac valve disease etiology: nonrheumatic Qualified Code(s): I35.0 - Nonrheumatic aortic (valve) stenosis (7) Obesity (BMI 30-39.9): Status: Acute Code(s): E66.9 - Obesity, unspecified Plan 63-year-old female with diabetic with admitted with tingling sensation face lymphopenia along with weakness of the right upper and lower extremity. She also has bad headache with history of chronic migraine. 1. Right-sided weakness, slurred speech, facial numbness and with pounding, severe, global headache probably related to complicated migraine: Patient being admitted in PCU. This time occipital headache was different from usual temporal headache from migraine. She had MRI which did not show acute intracranial abnormality. CT headache neck shows plaque with mild less than 50% narrowing of ICA but no hemodynamic significant stenosis, aneurysm or large vessel occlusion. 2D echo shows severe aortic stenosis, 3+ AI. Moderate mitral valve stenosis. EF 70%, no Doppler evidence of ASD. Patient on rizatriptan migraine headache medicine as needed. Started on ibuprofen and Topamax. Patient states he does not feel good and still has headache therefore did not want to go home. Continue PT and OT. TSH normal 09/17: Patient headache has resolved. Requested 1 month supply of Topamax for migraine prevention therefore prescribed. Follow with PCP. Patient has chronic back pain, sciatica pain with radiation into bilateral lower extremity. Patient followed by spine surgeon outside. She already had lumbar laminectomy and cervical spine surgery. 2. History of migraine headaches; on Aimovig sq. monthly and prn rizatriptan -as mentioned above 3. 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 On warfarin 10 mg daily 09/17, INR is still subtherapeutic INR 1.7. Therefore warfarin dose increased to 1 mg daily.) PT/INR on 09/20/2024 and follow with PCP to titrate the dose of warfarin accordingly 4. Obesity; with BMI of 39.7 this admission and CHELSEY; on BiPAP Weight loss will be recommended. Resume nocturnal BiPAP as previous. 5. History of asthma/COPD with chronic hypoxic respiratory failure; on home oxygen 2L NC: No acute shortness of breath/COPD exacerbation. Continue oxygen as needed. 6. DM-2; of unknown control on dapagliflozin, semaglutide and insulin glargine 50 U BID plus diabetic neuropathy; on gabapentin - ADA diet. Accu-Chek before meals and at bedtime with Humalog sliding scale coverage and hypoglycemia protocol. Continue insulin glargine to 35 units BID to minimize risk of hypoglycemia. 7. Essential hypertension; on diltiazem, furosemide, losartan and spironolactone - Hold scheduled antihypertensives until CVA definitively ruled out on MRI. 8. Hyperlipidemia; on pitavastatin and fenofibrate - 09/16: FLP shows triglyceride hide 327, VLDL high. HDL low. Atorvastatin dose increased Close Lasix: Prescription for atorvastatin 9. RLS; with leg cramps on prn tizanidine and prn cyclobenzaprine - Continue current regimen. 10. Multiple cardiac comorbidities including CAD, chronic HFpEF, severe aortic stenosis status post TAVR 2020 with postop DVT. History of bilateral carotid bruits 11. Osteoporosis, osteoarthritis with sciatica status postlaminectomy in 2019 DVT prophylaxis - Place SCD's for now with INR of 1.9 and continue warfarin 10 mg daily with repeat PT/INR pending in the AM. Clinical Impression(s) from Imaging Studies Brain CT 09/15/24 18:25 IMPRESSION: Chronic involutional changes of the brain. 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 Recommend ENT consultation. N.B. : The above Results were Read Back by Joon Grove MD to Jaya Douglass MD, and understanding confirmed on 09/15/2024 18:48:32 (ET). Electronically Signed: Joon Grove MD at 18:38 EST , Head/Neck CTA 09/15/24 18:25 IMPRESSION: There is plaque with mild, less than 50%, narrowing of the internal carotid arteries. There is no hemodynamically significant internal carotid artery stenosis. No intracranial aneurysm or large vessel occlusion. Chest X-Ray 09/15/24 19:40 IMPRESSION: Degenerative changes, as described above. No demonstrated acute cardiopulmonary process. Electronically Signed: Joon Grove MD at 20:24 EST , Echocardiogram 09/15/24 20:13 Interpretation Summary The estimated ejection fraction is 70 %. Unable to assess diastolic dysfunction. Moderate mitral valve stenosis. Severe aortic stenosis. Moderately severe (3+) aortic valve insufficiency. Brain MRI 09/16/24 09:30 IMPRESSION: 1. Involutional and chronic ischemic changes of the brain, as described above. Medications at Discharge Home Medications fluoxetine 20 mg capsule 40 mg PO DAILY anxiety 01/26/14 calcium 600 mg-D3 800 unit-mag 40 bk-nzoy-zzep-angel-boron chew tablet 1 ea PO DAILY vitamins 05/27/16 fenofibrate nanocrystallized 145 mg tablet 72.5 mg PO QHS cholesterol 04/26/19 trazodone 50 mg tablet 50 mg PO QHS sleep 08/09/19 epinephrine 0.3 mg/0.3 mL injection, auto-injector 0.3 mg (0.3 mL) IM X1 PRN Anaphylaxis #1 ea 01/18/20 albuterol sulfate 2.5 mg/3 mL (0.083 %) solution for nebulization 2.5 mg (3 mL) inhalation Q2H PRN PRN dyspnea, wheezing #180 mL 04/24/20 albuterol sulfate 90 mcg/actuation aerosol inhaler 2 inh inhalation Q4H PRN PRN Sob &/Or Wheezing #18 grams 04/24/20 montelukast 10 mg tablet 10 mg PO DAILY allergies/asthma #30 tabs 12/07/20 alendronate 70 mg tablet 70 mg PO WE [employer] 12/21/20 nystatin 100,000 unit/gram topical powder 1 applic topical BID PRN PRN YEAST 12/21/20 beclomethasone dipropionate 80 mcg/actuation HFA breath activated aerosol 1 inh inhalation BID Asthma 03/22/21 budesonide-formoterol HFA 160 mcg-4.5 mcg/actuation aerosol inhaler 2 puff inhalation BID asthma 03/22/21 ipratropium 0.5 mg-albuterol 3 mg (2.5 mg base)/3 mL nebulization soln 3 ml inhalation BID asthma 03/22/21 cyanocobalamin (vitamin B-12) 100 mcg tablet (Vitamin B-12) 100 mcg PO DAILY supplement 04/05/21 melatonin 10 mg tablet 12 mg PO QHS sleep 04/05/21 pregabalin 150 mg capsule 150 mg PO TID nerve pain 04/05/21 meclizine 25 mg tablet 25 mg PO DAILY PRN Vertigo 05/04/21 docusate sodium 100 mg capsule 100 mg PO DAILY stool softener 08/17/21 magnesium 250 mg tablet 400 mg PO DAILY supplement 08/17/21 ascorbate calcium (vitamin C) 500 mg tablet 1 g PO DAILY vitamin 11/07/21 chromium picolinate 200 mcg tablet 200 mcg PO DAILY supplement 11/07/21 clobetasol 0.05 % topical cream 1 applic topical PRN PRN RASH/ITCHING 11/07/21 coconut oil 1,000 mg capsule 1,000 mg PO DAILY supplement 11/07/21 levocetirizine 5 mg tablet 5 mg PO DAILY allergies 11/07/21 dapagliflozin propanediol 10 mg tablet (Farxiga) 10 mg PO DAILY diabetes 08/11/22 multivitamin (Daily Multi-Vitamin tablet) 1 tab PO DAILY vag itching 06/12/23 quercetin 500 mg capsule 500 mg PO DAILY supplement 06/12/23 semaglutide 1 mg/dose (4 mg/3 mL) subcutaneous pen injector (Ozempic) 1 mg subcut ECHEVARRIA diabetes 06/12/23 tiotropium bromide 18 mcg capsule with inhalation device 18 mcg inhalation DAILY asthma 06/12/23 erenumab-aooe 70 mg/mL subcutaneous auto-injector (Aimovig Autoinjector) 70 mg subcut QMONTH ordered #1 mL 06/13/23 rizatriptan 10 mg tablet (Maxalt) 10 mg PO Q2H PRN migraine headache #10 tabs 06/13/23 acetaminophen 500 mg tablet 1,000 mg PO Q8 PRN pain 08/25/23 azelastine 137 mcg-fluticasone 50 mcg/spray nasal spray 2 spray intranasal BID allergy 08/25/23 cholecalciferol (vitamin D3) 125 mcg (5,000 unit) tablet (Vitamin D3) 125 mcg PO DAILY vitamin-self care 08/25/23 sennosides 8.6 mg tablet (senna) 17.2 mg (2 x 8.6 mg) PO BID stool softner #120 tabs 09/03/23 Lactobacillus acidophilus (Acidophilus chewable tablet) 1 tab PO DAILY Supplement 09/29/23 black seed oil 10,000 mg PO DAILY unknown 09/29/23 ondansetron 4 mg disintegrating tablet 4 mg PO DAILY PRN nausea 09/29/23 oxycodone-acetaminophen 5 mg-325 mg tablet 1 tab PO BID pain 09/29/23 sennosides 8.6 mg-docusate sodium 50 mg tablet 2 tab-cap PO DAILY PRN constipation 09/29/23 zinc 100 mg tablet 100 mg PO DAILY supplement 09/29/23 Hydrocortisone 2.5%/lidocaine 5% suppository (cmpd) #30 ea 10/09/23 diltiazem HCl 120 mg capsule,extended release 24 hr (Cardizem CD) 120 mg PO .COMPLEX high blood pressure 02/02/24 warfarin 10 mg tablet [address] Soria Manages. 02/02/24 diltiazem HCl 240 mg capsule,extended release 24 hr 240 mg PO QDAY 02/16/24 furosemide 40 mg tablet 80 mg PO BID diuresis 02/16/24 spironolactone 50 mg tablet 50 mg PO DAILY #30 tabs 02/16/24 methocarbamol 500 mg tablet 500 mg PO .COMPLEX PRN ASK PCP 08/17/24 polyethylene glycol 3350 17 gram oral powder packet 17 g PO QDAY self care 08/17/24 cyclobenzaprine 10 mg tablet 10 mg PO BID PRN PRN muscle spasm 09/15/24 losartan 50 mg tablet 50 mg PO DAILY 09/15/24 oxycodone 5 mg tablet 5 mg PO 4X/DAY PRN PRN pain 09/15/24 polyethylene glycol 3350 17 gram/dose oral powder (ClearLax) 8.5 g PO QDAY PRN constipation 09/15/24 tiotropium bromide inhalation DAILY PRN SOB 09/15/24 tizanidine 4 mg capsule 4 mg PO BID PRN muscle spasticity 09/15/24 atorvastatin 40 mg tablet 40 mg PO QHS 30 days #30 tabs 09/17/24 insulin glargine U-300 conc 300 unit/mL (1.5 mL) subcutaneous pen (Toujeo SoloStar U-300 Insulin) 35 unit (0.1167 mL) subcut BID DIABETES 30 days #0 mL 09/17/24 omeprazole 40 mg capsule,delayed release 40 mg PO DAILY gerd 30 days #0 caps 09/17/24 topiramate 50 mg tablet 50 mg PO BID 30 days #60 tabs 09/17/24 warfarin 2 mg tablet 2 mg PO DAILY 1 month #30 tabs 09/17/24 Physical Exam Narrative The headache has gotten better. She has chronic mild right leg weakness from arthritis. Denies any headache. She has chronic back pain, sciatica in nature. Status post lumbar laminectomy and cervical laminectomy. Physical exam General: Alert, Oriented x3, Cooperative. Morbid obesity BMI 42.1 kg/m? HEENT: Atraumatic, PERRLA, EOMI, Normocephalic Oral: Deep oropharyngeal structures could not be visualized Neck: Supple, No JVD, Negative Carotid Bruits Chest wall/Lungs: Air entry diminished in bilateral lung bases. No crepitation/rhonchi Cardiovascular: Regular rate, Regular Rhythm, Normal S1, Normal S2, No M/G/R Abdomen: Bowel Sounds Present, Soft, Non Tender, Non-Distended : No dysuria. No renal angle tenderness. No suprapubic tenderness. Extremities: No edema, Capillary Refill Less than 3 Seconds Skin: No rashes, No breakdown Musculoskeletal spine: bilateral knee arthritis, valgus deformity. No Tenderness to Palpation of Joints or Extremities. Chronic lumbar spine tenderness Neurological: Cranial nerves II-XII grossly intact, DTR 2+/4. Chronic weakness of RLE, 4/5. Psych/Mental Status: Flat. Weight / BMI Weight Weight: 245 lb 6 oz Body Mass Index (BMI) 42.1 ABG / Lab / Microbiology Data 09/17/24 07:07 09/17/24 07:07 Laboratory: Laboratory Results - last 24 hr 09/16/24 11:49: POC Glucose 191 H 09/16/24 16:17: POC Glucose 130 H 09/16/24 21:06: POC Glucose 149 H 09/17/24 06:13: POC Glucose 129 H 09/17/24 07:07: WBC 6.9, RBC 4.64, Hgb 13.1, Hct 42.3, MCV 91.2, MCH 28.2, MCHC 31.0 L D, RDW Std Deviation 49.6 H, RDW Coeff of Carmencita 14.8 H, Plt Count 200, MPV 10.6, Immature Gran % (Auto) 1.000 H, Neut % (Auto) 52.5, Lymph % (Auto) 33.9, [place] % (Auto) 10.0, Eos % (Auto) 1.7, Baso % (Auto) 0.9, Absolute Neuts (auto) 3.6, Absolute Lymphs (auto) 2.34, Nucleated RBC % 0, PT 19.6 H, INR 1.7, Sodium 136, Potassium 4.4, Chloride 105, Carbon Dioxide 25.0, Anion Gap 6, BUN 24 H, Creatinine 1.11 H, Estim Creat Clear Calc 62.51, Est GFR (MDRD) Af Amer 64, Est GFR (MDRD) Non-Af 53 L, BUN/Creatinine Ratio 21.6 H, Glucose 123 H, Calcium 8.4 L Radiography Diagnostic Testing: Radiology Impression Echocardiogram 09/15/24 20:13 Interpretation Summary The estimated ejection fraction is 70 %. Unable to assess diastolic dysfunction. Moderate mitral valve stenosis. Severe aortic stenosis. Moderately severe (3+) aortic valve insufficiency. Ordering Physician: Michael De Los Santos Referring Physician: Ophelia Soria M.D. Performed By: Crystal An RDCS and Student D/C Instructions DC O2, CPAP, BIPAP Needs PSN CPAP & BiPAP: BiPAP & CPAP Settings per PSN Mode BiPAP 09/17/24 03:45 Bipap Delivery Device Face Mask 09/17/24 03:45 BiPAP Inspiratory Pressure 17 09/17/24 03:45 BiPAP Expiratory Pressure 11 09/17/24 03:45 Total Flow Rate 2 09/17/24 03:45 Additional Home O2 Discharge instructions: No DC home with Oxygen: No Meaningful Use Info Meaningful Use Meaningful Use Diagnoses (Choose all that apply): None applicable Ischemic Stroke Statin Dosing Therapy Reference: STATIN DOSE THERAPY REFERENCE: * Patients > 75 years receive moderate or high dose statin therapy. * Patients 75 years or YOUNGER should receive HIGH intensity statin dose unless contraindicated. You will be required to document reason for non-treatment if statin daily dose does not meet guidelines. HIGH DOSE STATIN THERAPY DAILY Atorvastatin > than or = to 40 mg Rosuvastatin > than or = to 20 mg Amlodipine + Atorvastatin > than or = to 2.5/40 mg Ezetimibe + Simvastatin 10/80 mg Simvastatin 80mg Discharge Plan Admission Admit Date/Time: 09/15/24 20:02 Primary Reason for Your Visit: Complicated migraine Attending Provider: Ramiro Carey Primary Care Provider: Ophelia Soria Consulting Providers: Christian Covarrubias; Don Bansal; Estefani Goldstein; Katherine Walker; Vandana Kumari; Alexander Gregg; Evangelina Fried; Emir Garner; Denis Xiao; Colin Fofana; Mely Jim; Kamran Limon; Michelle Huston; Lev Obrien; Melinda León; Chris Hammond; Yahaira Vincent; Dwyane Werner; Lisa Lemus; Shannon Saeed; Michael De Los Santos Instructions Additional Instructions / Restrictions: Total warfarin 12 mg daily. Advised INR in 3 days, on 09/20/2024 follow-up PCP to titrate the dose of warfarin. Discharge Orders/Prescriptions Prescriptions: New topiramate 50 mg Tablet 50 mg PO BID 30 Days Qty: 60 0RF warfarin 2 mg tablet 2 mg PO DAILY 30 Days Qty: 30 0RF Rx Instructions: Hold for INR more than 2.5 atorvastatin 40 mg Tablet 40 mg PO QHS 30 Days Qty: 30 0RF Continued trazodone 50 mg tablet 50 mg PO QHS albuterol sulfate 2.5 mg /3 mL (0.083 %) solution for nebulization 2.5 mg INHALATION Q2H PRN PRN (Reason: dyspnea, wheezing) Qty: 180 6RF albuterol sulfate 90 mcg/actuation HFA aerosol inhaler 2 inh INHALATION Q4H PRN PRN (Reason: Sob &/Or Wheezing) Qty: 18 6RF montelukast 10 mg tablet 10 mg PO DAILY Qty: 30 6RF alendronate 70 mg tablet 70 mg PO WE nystatin 100,000 unit/gram powder 1 applic TOPICAL BID PRN PRN (Reason: YEAST) meclizine 25 mg tablet 25 mg PO DAILY PRN (Reason: Vertigo) magnesium 250 mg tablet 400 mg PO DAILY levocetirizine 5 mg tablet 5 mg PO DAILY clobetasol 0.05 % cream 1 applic topical PRN PRN (Reason: RASH/ITCHING) chromium picolinate 200 mcg tablet 200 mcg PO DAILY coconut oil 1,000 mg capsule 1,000 mg PO DAILY ascorbate calcium (vitamin C) 500 mg tablet 1 g PO DAILY (DME) Hydrocortisone 2.5%/lidocaine 5% suppository (cmpd) Suppository See Rx Instructions .Route Qty: 30 1RF Rx Instructions: insert rectally twice daily x 2 weeks diltiazem HCl 240 mg capsule,extended release 24hr 240 mg PO QDAY spironolactone 50 mg tablet 50 mg PO DAILY Qty: 30 11RF Rx Instructions: Take at evening meal with Losartan polyethylene glycol 3350 17 gram powder in packet 17 g PO QDAY Rx Instructions: OTC methocarbamol 500 mg tablet 500 mg PO .COMPLEX PRN (Reason: ASK PCP) Rx Instructions: 500 mg orally FOUR TIMES DAILY PRN; fluoxetine 20 MG capsule 40 mg PO DAILY Patient Comments: Depression/anxiety docusate sodium 100 mg capsule 100 mg PO DAILY Patient Comments: Stool softner My-V3-[id number]-efkf-wkh-qvti-boron 1 EACH tablet,chewable 1 ea PO DAILY fenofibrate nanocrystallized 145 MG tablet 72.5 mg PO QHS ipratropium-albuterol 0.5 mg-3 mg(2.5 mg base)/3 mL solution for nebulization 3 ml INHALATION BID Rx Instructions: Continue until re-evaluation per pulmonary with possible transition back to home regimen at that time. budesonide-formoterol 160-4.5 mcg/actuation HFA aerosol inhaler 2 puff INHALATION BID beclomethasone dipropionate 80 mcg/actuation HFA aerosol breath activated 1 inh inhalation BID furosemide 40 mg tablet 80 mg PO BID Rx Instructions: take on Friday, Friday, Friday cyanocobalamin (vitamin B-12) [Vitamin B-12] 100 mcg Tablet 100 mcg PO DAILY pregabalin 150 mg capsule 150 mg PO TID melatonin 10 mg Tablet 12 mg PO QHS dapagliflozin propanediol [Farxiga] 10 mg tablet 10 mg PO DAILY Ozempic 1 mg/dose (4 mg/3 mL) pen injector 1 mg subcut ECHEVARRIA tiotropium bromide 18 mcg capsule, w/inhalation device 18 mcg inhalation DAILY Rx Instructions: puncture 1 cap using device; one dose = 2 inhalations multivitamin [Daily Multi-Vitamin] Tablet 1 tab PO DAILY quercetin 500 mg capsule 500 mg PO DAILY rizatriptan [Maxalt] 10 mg tablet 10 mg PO Q2H PRN (Reason: migraine headache) Qty: 10 0RF Rx Instructions: do not exceed 3 doses per 24 hrs Aimovig Autoinjector 70 mg/mL auto-injector 70 mg subcut QMONTH Qty: 1 0RF Patient Comments: pt requeste to stop taking Rx Instructions: per patient's normal routine. cholecalciferol (vitamin D3) [Vitamin D3] 125 mcg (5,000 unit) tablet 125 mcg PO DAILY azelastine-fluticasone 137-50 mcg/spray spray,non-aerosol 2 spray intranasal BID Rx Instructions: administer into each nostril acetaminophen 500 mg Tablet 1,000 mg PO Q8 PRN (Reason: pain) sennosides [senna] 8.6 mg Tablet 17.2 mg PO BID Qty: 120 0RF Rx Instructions: OTC ondansetron 4 mg tablet,disintegrating 4 mg PO DAILY PRN (Reason: nausea) oxycodone-acetaminophen 5-325 mg tablet 1 tab PO BID sennosides-docusate sodium 8.6-50 mg tablet 2 tab-cap PO DAILY PRN (Reason: constipation) black seed oil 10,000 mg PO DAILY Acidophilus Tablet,Chewable 1 tab PO DAILY Patient Comments: 175 mg tab zinc 100 mg tablet 100 mg PO DAILY cyclobenzaprine 10 mg tablet 10 mg PO BID PRN PRN (Reason: muscle spasm) polyethylene glycol 3350 [ClearLax] 17 gram/dose powder 8.5 g PO QDAY PRN (Reason: constipation) oxycodone 5 mg tablet 5 mg PO 4X/DAY PRN PRN (Reason: pain) tizanidine 4 mg capsule 4 mg PO BID PRN (Reason: muscle spasticity) tiotropium bromide [Spiriva Respimat] inhalation DAILY PRN (Reason: SOB) epinephrine 0.3 mg/0.3 mL auto-injector 0.3 mg IM X1 PRN (Reason: Anaphylaxis) Qty: 1 0RF diltiazem HCl [Cardizem CD] 120 mg capsule,extended release 24hr 120 mg PO .COMPLEX Patient Comments: as directed by doctor Rx Instructions: 120 mg orally daily PRN BP > 170 per PCP.; warfarin 10 mg tablet 10 mg PO DAILY Changed omeprazole 40 mg capsule,delayed release(DR/EC) 40 mg PO DAILY 30 Days Qty: 0 0RF insulin glargine U-300 conc [Toujeo SoloStar U-300 Insulin] 300 unit/mL (1.5 mL) insulin pen 35 unit SUBCUT BID 30 Days Qty: 0 0RF Patient Comments: INJECT 50 UNITSESUBCUTANEOUSLY JUNIOR Rx Instructions: TOULUCYO Held losartan 50 mg tablet 50 mg PO DAILY Hold Instructions: Hold for 5 days Discontinued vitamin K2 45 mcg capsule 100 mcg PO DAILY pitavastatin calcium [Livalo] 4 mg tablet 4 mg PO DAILY budesonide-formoterol [Breyna] 80-4.5 mcg/actuation HFA aerosol inhaler 1 inh inhalation BID potassium chloride 10 mEq capsule, extended release 10 meq PO DAILY Qty: 90 3RF Referrals / Follow Up: Ophelia Soria DO [Primary Care Provider] - Disposition Disposition (needs filled in before D/C Order can be placed): Home, Self Care Charges/Coding Visit Charges Inpatient E&M: 21542 Disch Hosp >30min
--- NOTE | 2024-09-17 11:46 | CASEMGMT ---
Discharge Planning A list of?HH providers including quality and resource use data and consistent with the patient's preferred geographic region, medical needs, and insurance network was created in [facility] Guide.? This list was provided to the RN VADIM. Jody Schrader, Discharge Planning Asst.
--- NOTE | 2024-09-17 11:52 | CASEMGMT ---
Addendum entered by Livier Hernandez 09/17/24 13:32: JOSS FIERRO received call back from [facility] that patient does not have an acute skillable need for HHC. JOSS FIERRO updated by ST that patient will need ST at discharge. JOSS FIERRO in to update patient. Patient states she was attending outpatient therapy at [facility] and would like ST added. JOSS FIERRO updated hospitalist and script received. JOSS FIERRO faxed referral to [facility] with request to schedule appt with patient. JOSS FIERRO updated patient. Patient had no further questions or concerns. Original Note: Patient has order for discharge. JOSS FIERRO in to discuss needs at discharge. Patient states she would like [facility] for SN, PT, OT. JOSS FIERRO provided HHC list to patient, patient prefers [facility]. Patient states family will be transporting patient home. Patient denied further needs or concerns. JOSS FIERRO made referral to [facility], awaiting acceptance.
[2024-09-17] MEDS: Insulin Glargine-YFGN 100 UNIT/ML Pen 35 UNIT SC (12:24)
[2024-09-17 13:24] VITALS: PULSE 78; RESP 16
--- NOTE | 2024-09-17 13:49 | CASEMGMT ---
Social Work- LUANNE called Yessica at [facility] and left a voicemail on a secure line regarding pt discharge plans. LUANNE also faxed discharge to Yessica. Plan: Home with JOHN Miller
[2024-09-17 14:19] VITALS: BMI 42.1
[2024-09-17 17:32] LABS: Bedside Glucose 116 mg/dL (74-106)
== END 2024-09-17 10:58 | disposition home or self-care (01) ==
LOC: ED 19:38 → PCU 19:59
PROVIDERS: Admitting Provider Internal Medicine; Emergency Provider Emergency Medicine; PCP Internal Medicine; Visit Provider Internal Medicine
DX: R53.1 Weakness (principal); J96.11 Chronic respiratory failure with hypoxia; I11.0 Hypertensive heart disease with heart failure; I50.32 Chronic diastolic (congestive) heart failure; J44.89 Other specified chronic obstructive pulmonary disease; Z68.41 Body mass index [BMI] 40.0-44.9, adult; E66.01 Morbid (severe) obesity due to excess calories; E11.42 Type 2 diabetes mellitus with diabetic polyneuropathy; Z79.4 Long term (current) use of insulin; I35.0 Nonrheumatic aortic (valve) stenosis; R79.1 Abnormal coagulation profile; K11.8 Other diseases of salivary glands; Z79.891 Long term (current) use of opiate analgesic; G89.29 Other chronic pain; R47.81 Slurred speech; Z79.83 Long term (current) use of bisphosphonates; Z95.2 Presence of prosthetic heart valve; Z79.01 Long term (current) use of anticoagulants; I25.10 Atherosclerotic heart disease of native coronary artery without angina pectoris; Z86.718 Personal history of other venous thrombosis and embolism; G43.019 Migraine without aura, intractable, without status migrainosus; M19.90 Unspecified osteoarthritis, unspecified site; Z79.84 Long term (current) use of oral hypoglycemic drugs; E78.00 Pure hypercholesterolemia, unspecified; Z79.899 Other long term (current) drug therapy; Z86.711 Personal history of pulmonary embolism; R94.31 Abnormal electrocardiogram [ECG] [EKG]; I44.0 Atrioventricular block, first degree; I45.2 Bifascicular block; K21.9 Gastro-esophageal reflux disease without esophagitis; M81.0 Age-related osteoporosis without current pathological fracture; G25.81 Restless legs syndrome; Z99.81 Dependence on supplemental oxygen; Z86.73 Personal history of transient ischemic attack (TIA), and cerebral infarction without residual deficits
CPT/HCPCS: 36415; 70450; 70496; 70498; 70551; 71045; 74230; 80048; 80061; 82962; 83036; 84443; 84484; 85025; 85610; 85730; 92610; 92611; 93005; 93306; 94003; 94640; 96374; 96376; 97162; 97166; 97533; 99221; 99285; Q9967; A4216; G0378

== ENCOUNTER → 2024-09-21 | Outpatient (CLI) | payer MEDICARE, MEDICAID, SELFPAY ==
[2021-09-03 12:59] VITALS: BMI 43.4
--- NOTE | 2024-09-21 13:11 | STRESSREP ---
Stress Test Report Pharmacologic myocardial perfusion stress test. 63-year-old lady with a history of chest pain Resting EKG demonstrates sinus rhythm with a rate of 64 bpm. Resting blood pressure is 140/64 mmHg. 0.4 mg of regadenoson was infused per usual protocol followed by rapid intravenous saline flush injection. Continuous EKG monitoring was performed. The maximum heart rate was 85 bpm which was 54% of max impacted heart rate the maximum workload was 1 metabolic equivalent. At rest there were no ST or T wave changes noted to suggest ischemia and at peak infusion nonspecific ST changes were noted which did not meet the criteria for ischemia. No clinical angina is noted. The final blood pressure was 137/64 mmHg. Myocardial perfusion protocol. 14.7 mCi of technetium 99m sestamibi was injected at rest. 0.4 mg of regadenoson was infused per usual protocol. At peak infusion 44.2 mCi of technetium 99m sestamibi was injected stress images were obtained stress and rest images were reconstructed and compared in the short axis vertical long and horizontal long axis. Gated images were also obtained. Perfusion SPECT analysis: Review of the stress images demonstrate normal uptake of tracer noted in all areas of the myocardium. The resting images similar demonstrated normal uptake of tracer noted in all areas of the myocardium. No areas of reversibility are noted to suggest ischemia and no previous infarct is noted. Gated SPECT analysis: The gated ejection fraction is 61%. Conclusion: Normal pharmacologic myocardial perfusion stress test. Preserved ejection fraction.
== END | disposition home or self-care (01) ==
LOC: CVS 06:39
PROVIDERS: PCP Internal Medicine; Referring Provider Nurse Practitioner Family; Visit Provider Nurse Practitioner Family
DX: R42 Dizziness and giddiness (principal); I25.10 Atherosclerotic heart disease of native coronary artery without angina pectoris; M54.42 Lumbago with sciatica, left side
CPT/HCPCS: 78452; 93017; A9500; A4216; J2785

== ENCOUNTER → 2024-09-24 | Outpatient (CLI) | payer MEDICARE, MEDICAID, SELFPAY ==
[2021-09-03 12:59] VITALS: BMI 43.4
== END | disposition home or self-care (01) ==
LOC: LABSPEC 15:30
PROVIDERS: PCP Internal Medicine; Referring Provider Otolaryngology; Visit Provider Otolaryngology
DX: J32.9 Chronic sinusitis, unspecified (principal)
CPT/HCPCS: 87070; 87205

== ENCOUNTER 2024-10-01 10:30 | Outpatient (RCR) | payer MEDICARE, MEDICAID, SELFPAY ==
[2021-09-03 12:59] VITALS: BMI 43.4
--- NOTE | 2024-07-30 14:33 | HP.PTEVAL_ITS ---
Patient's Visit Information Visit Information Visit Information: NATHALIE HERMAN is a 63 year old F referred to Physical Therapy by ALYSE KIRBY with a diagnosis of S/P LUMBAR LAMINECTOMY FOR SPINAL CORD COMPRESSION. Date of Evaluation: 07/30/24 Physical Therapist: Denis Peralta, PT, Cert MDT, OCS Visit Plan Frequency: 2x /Week Duration: 6 Weeks Plan: S/P LUMBAR LAMINECTOMY Jul PT INTERVENTIONS LE FLEXABILITY ,DLS ,POSTURAL EX'S , BLE STRENGTHENING , BALANCE PROGRAM ,AND ENDURANCE EX'S Subjective Subjective: This 63 y/o female presents to physical therapy with s/p lumbar laminectomy on June [address] Singh at [facility] patient d/c to Rehab at [facility] on June 09 for therapy then d/c to home Jul 10 . Patient recently seen PA last and recommended PT .Patient received AFO at intermediate. Patient is okay for BLT ,and has 10 # lifting restriction. Patient had 1st surgery lumbar 2020 . Patient located lumbar and radicular symptoms to leg.Patient needs fww for gait. Patient aggravating walking <5 mins and standing 3 mins ,bending to put on shoes unable to lift. Medication muscle relaxer and oxycodone .Pain affects sleeping Patient has difficulty with ADLS and housework tasks. Patient has WEIGHT LOSS PHYSICIAN for 5 hours days ,WEIGHT LOSS PHYSICIAN assist with bathing ,dressings and shoes cooking and cleaning. Pt lives 1 story no step walk in shower. Patient condition affects QOL and function and walking. Patient goals to walk without FWW prior to surgery used cane, SOCIAL: VOCATION: retired Pain Bilateral Back: Pain Intensity (Out of 10): 8 Pain Intensity Range: 10 Right Lower Extremity: Pain Intensity (Out of 10): 6 Pain Intensity Range: 10 Objective Objective: POSTURE: mild forward posture hips/knee flexed forward posture GAIT: reciprocal pattern slow [place] with fww with right AFO INCISION: skin approximate NEURO: denies paresthesia/tingling reflexes L3-4,L4-5,L-S 1 1/3 FLEXABILITY: hamstrings mod tight LUMBAR ROM: flexion mod loss ,extension severe loss ,side glide mod loss MMT: ( peak force) right quads 4.6 ,hip flexion 3,1 ,hamstrings 4.2 ankle , left quads /hams/hip 4-/5 ankle Special Tests L/S Slump test left side: Negative L/S Slump test right side: Negative L/S Left Straight Leg Raise: Negative L/S Right Straight Leg Raise: Negative Balance/Special Test Scores Oswestry Low Back Score: 34 Goals Goal 1:: Patient to be I with HEP for back Goal Time Frame: 4-6 Weeks Goal 2:: Patient to improve lumbar ROM for function of recovery to put on shoes Goal Time Frame: 4-6 Weeks Goal 3:: Patient to improve peak force quads/hams/hip by 5-10 # to improve function and gait. Goal Time Frame: 4-6 Weeks Goal 4:: Patient to ambulate with least restrictive device community distances unlimited. Goal Time Frame: 4-6 Weeks Goal 5:: Patient to improve back oswestry score by 5 points to improve QOL Goal Time Frame: 4-6 Weeks Goal 6:: Patient to demonstrate 50% to improve gait and function Goal Time Frame: 4-6 Weeks Rehabilitation Potential Physical Therapy Diagnosis: This patient patient underwent s/p lumbar laminectomy June 04 with decrease gait ,endurance ,lumbar ROM ,weakness and pain thus benefit from skilled PT Rehabilitation Potential: Fair Anticipated Interventions Patient/Client Instruction: Educate patient on: Condition, Plan of Care and Risk Factors For the Purpose of:: To decrease pain, To improve nutrient delivery to tissue, To improve muscle performance and motor function, To improve ability to perform ADL's, To increase tolerance to activity/condition/position, To improve ability of physical actions for home/community/work/leisure, To improve gait and locomotor functions, To improve health of tissue, To decrease soft tissue restriction, To increase flexibility/ROM, To improve endurance and To improve balance Therapeutic Exercise to Include: Strength training, Endurance training, Balance training, Flexibilty training, Active ROM and Dynamic Lumbar Stabilization Comment: BLE For the Purpose of:: To decrease pain, To increase ROM, To improve muscle performance and motor function, To improve ability to perform ADL's, To increase tolerance to activity/condition/position, To improve ability of physical actions for home/community/work/leisure, To improve health of tissue, To decrease soft tissue restriction, To increase flexibility/ROM, To improve endurance, To reduce risk of recurrence and To improve tolerance to ADL's TENS: Yes IF ES: Yes Cryotherapy (ice pack, ice massage): Yes Thermo therapy (hot pack): Yes Ultrasound (thermal/non thermal): Yes For the Purpose of:: To decrease pain, To decrease swelling/inflammation, To improve health of tissue, To decrease soft tissue restriction and To increase flexibility/ROM Text: Thank you for the opportunity to evaluate your patient. For Medicare and Medicare HMO plans, please review the plan of care and approve it. It will need to be FAXED BACK to us at [phone] for Medicare purposes. For Medicare only, by signing this I certify the plan of care. Please let me know if there are questions or concerns regarding this plan of care. Physician Signature: Date:
--- NOTE | 2024-09-14 11:59 | HP.PTREVAL ---
Re-Evaluation Intro: ALYSE KIRBY, It has been my pleasure to treat NATHALIE HERMAN over the last 9 visits for S/P LUMBAR LAMINECTOMY FOR SPINAL CORD COMPRESSION. Please see the progress note below for an update on the physical therapy plan of care! Subjective Subjective: Seen Dr WONG, recommend Aquatic PT due to back and hip pain Worse with waling/standing States pain is worse in leg Objective Objective/Function: POSTURE: mild forward posture hips/knee flexed forward posture GAIT: reciprocal pattern slow [place] with fww with right AFO INCISION: skin approximate NEURO: denies paresthesia/tingling reflexes L3-4,L4-5,L-S 1 1/3 FLEXABILITY: hamstrings mod tight PALPTION: tender right glut and hip LUMBAR ROM: flexion mod loss ,extension severe loss ,side glide mod loss MMT: ( peak force) right quads 15,6 ,hip flexion 12.7 ,hamstrings 22.7 ankle , left quads /hams/hip 4-/5 ankle Plan Plan Plan: S/P LUMBAR LAMINECTOMY May PT INTERVENTIONS AQUATIC THERAPY LE FLEXABILITY ,DLS ,POSTURAL EX'S , BLE STRENGTHENING , BALANCE PROGRAM ,AND ENDURANCE EX'S Balance/Gait/Functional tests Balance/Special Test Scores Oswestry Low Back Score: 34 Goals Goals Goal 1:: Patient to be I with HEP for back Goal Time Frame: 4-6 Weeks Goal Progress: Progressing Goal 2:: Patient to improve lumbar ROM for function of recovery to put on shoes Goal Time Frame: 4-6 Weeks Goal Progress: Progressing Goal 3:: Patient to improve peak force quads/hams/hip by 5-10 # to improve function and gait.( new gaol) Goal Time Frame: 4-6 Weeks Goal 4:: Patient to ambulate with least restrictive device community distances unlimited. Goal Time Frame: 4-6 Weeks Goal Progress: Not Progressing Goal 5:: Patient to improve back oswestry score by 5 points to improve QOL Goal Time Frame: 4-6 Weeks Goal Progress: Progressing Goal 6:: Patient to demonstrate 50% to improve gait and function Goal Time Frame: 4-6 Weeks Goal Progress: Progressing Anticipated Interventions Anticipated Interventions Patient/Client Instruction: Educate patient on: Condition, Plan of Care and Risk Factors For the Purpose of:: To decrease pain, To improve nutrient delivery to tissue, To improve muscle performance and motor function, To improve ability to perform ADL's, To increase tolerance to activity/condition/position, To improve ability of physical actions for home/community/work/leisure, To improve gait and locomotor functions, To improve health of tissue, To decrease soft tissue restriction, To increase flexibility/ROM, To improve endurance and To improve balance Therapeutic Exercise to Include: Strength training, Endurance training, Balance training, Flexibilty training, In an aquatic setting, Active ROM and Dynamic Lumbar Stabilization Comment: BLE For the Purpose of:: To decrease pain, To increase ROM, To improve muscle performance and motor function, To improve ability to perform ADL's, To increase tolerance to activity/condition/position, To improve ability of physical actions for home/community/work/leisure, To improve health of tissue, To decrease soft tissue restriction, To increase flexibility/ROM, To improve endurance, To reduce risk of recurrence and To improve tolerance to ADL's TENS: Yes IF ES: Yes Cryotherapy (ice pack, ice massage): Yes Thermo therapy (hot pack): Yes Ultrasound (thermal/non thermal): Yes For the Purpose of:: To decrease pain, To decrease swelling/inflammation, To improve health of tissue, To decrease soft tissue restriction and To increase flexibility/ROM Re-Evaluation Ending Re-evaluation ending: Please do not hesitate to contact me at [phone] by phone or if you have questions or concerns regarding this new plan of care! Sincerely, Denis Peralta, PT, Cert MDT, OCS
--- NOTE | 2024-09-30 08:28 | ST ---
[facility] Speech Pathology [address] [place] [address] Modified Barium Swallow Study MR#: [id number] Acct: [id number] Name: NATHALIE HERMAN Rep #: [id number] : 1960 63 From: Aminta Herrera M.A., [facility]-DISBURSING OFFICER Modified Barium Swallow Patient Information Study Date: 09/17/24 Study Time: 10:00 Direct Billable Minutes: 117 Total Minutes procedure & reportin Diagnosis: COPD J44.9 Referring Physician: Ramiro Carey Reason for Referral: Pt presented to [facility] ED 09/17/2024 w/ right-sided weakness, slurred speech, facial numbness and headache. She was admitted to the PCU under observation status for completion of her stroke workup. Brain MRI negative for CVA. Pt referred for ST as part of ST work up. Pt reported complaints of swallowing difficulty. BSE recommended regular textures / thin liquids w/ use of safe swallowing precautions and plan for MBSS to further assess aspiration risk due to coughing w/ thin liquids (particularly sequential sips). Pt reports hx of dysphagia s/p neck surgery in 2006 w/ need for liquids and soft solids for 6mo after surgery. Since her recovery, she reports little swallowing difficulty. Regurgitation 1-2X/year. Occ coughing w/ liquids, which has worsened today. Medical History: PMH: Migraine headache, Rectal bleeding, History of transcatheter aortic valve replacement (~04/19/21), COVID-19, Depression, Anxiety, Insulin dependent diabetes mellitus, Arthritis. High cholesterol, PE, Easy bruising, Excessive bleeding, Restless legs, Back pain, TIA, Non-smoker, BiPAP dependence, On home oxygen therapy, SOB on exertion, Hx of DVT, Back pain with sciatica, HTN, CAD, Atherosclerotic heart disease of [place] coronary artery without angina pectoris, Personal history of anaphylaxis, Bilateral carotid bruits, Diastolic heart failure, COPD, CHELSEY w/ BiPAP, Morbid obesity, Asthma. Surgical Hx: Neck surgery (unspecified in EMR) (2006). See EMR for full surgical and PMH. Current Diet Ordered: Regular textures / Thin liquids Dentition: Natural Teeth and Decay Mental Status: WNL Respiratory Status: Oxygenating on Room Air Penetration-Aspiration Scale Penetration-Aspiration Scale: OBJECTIVE ASSESSMENT OF SWALLOW FUNCTION (QUANTITATIVE ? PER TRIAL): PENETRATION / ASPIRATION SCALE ([place]OD): 1 = does not enter airway 2 = enters airway/above vocal folds/ejected 3 = enters airway/above vocal folds/not ejected 4 = enters airway/contacts vocal folds/ejected 5 = enters airway/contacts vocal folds/not ejected 6 = enters airway/below vocal folds/ejected 7 = enters airway/below vocal folds/not ejected despite effort 8 = enters airway/below vocal folds/no effort VIDEOFLOROSCOPIC SCALE SCORE (NOR[place]OD): Grade I = aspiration of material that has penetrated into the laryngeal vestibule, intact cough reflex Grade II = aspiration < 10 % of the bolus, intact cough reflex Grade III = aspiration of < 10 % of the bolus, reduced cough reflex or aspiration of > 10 % of the bolus, intact cough reflex Grade IV = aspiration of > 10 % of the bolus, reduced cough reflex Penetration-Aspiration Scale Score Thin Liquid via teaspoon: Result: 1= does not enter airway Thin Liquid via teaspoon Trial 2: Result: 1= does not enter airway Thin Liquid via large single sip: cup: Result: 2= enter airway/above vocal folds/ejected Thin Liquid via sequential sips: cup: Result: 3= enters airways/above vocal folds/not ejected Comment: Coughing episode immediately followed trial with resulting retrograde flow of liquids. After coughing episode was completed, esophageal screen revealed only mild retention of liquid barium in middle esophagus w/ retrograde flow. [place] Thick Liquid via large single sip: cup: Result: 1= does not enter airway Pudding via teaspoon: Result: 1= does not enter airway Comment: Esophageal screen - Retention throughout the esophagus. Thin Liquid via single sip: straw Effortful swallow: Result: 1= does not enter airway Comment: Esophageal screen - Liquid wash cleared a majority of pudding in the esophagus, but continued mild-moderate retention in the upper-middle esophagus. 1/2 Cookie: Result: 1= does not enter airway Comment: Retention of cookie in the upper esophagus. Thin Liquid via large single sip: cup Effortful swallow: Result: 2= enter airway/above vocal folds/ejected Comment: Esophageal screen - Mild retention in the upper and middle esophagus w/ retrograde flow. Oral Phase Labial Seal: No Labial Escape Tongue Control During Bolus Hold: Posterior escape of less than half of bolus Bolus Preparation/Mastication: Disorganized chewing/mashing with solid pieces of bolus unchewed (Timely mastication; however, small pieces of cookie appeared un-chewed) Bolus Transport/Lingual Motion: Brisk tongue motion Oral Residue: Residue collection on oral structures Pharyngeal Phase Initiation of Pharyngeal Swallow: Bolus head in pyriforms Soft Palate Elevation: Trace column of contrast/air between soft palate and pharyngeal wall Laryngeal Elevation: Comp. Superior move thyroid cart w/comp. apprx arytenoid cart-epig pet Anterior Hyoid Excursion: Partial anterior movement Epiglottic Movement: Complete inversion Laryngeal Vestibule Closure at Height of Swallow: Incomplete; narrow column of air/contrast in laryngeal vestibule Pharyngeal Stripping Wave: Present - diminished Pharyngoesophageal Segment Opening: Complete distension and complete duration; no obstruction of flow Tongue Base Retraction: Wide column of contrast between tongue base & post. pharyngeal wall Pharyngeal Residue: Collection of residue within or on pharyngeal structures Esophageal Phase Esophageal Clearance: Esophageal retention w/ retrograde flow below pharyngoesophageal seg. Diagnosis/Impression Diagnosis: Mild oropharyngeal dysphagia R13.12; Esophageal dysphagia R13.14 Impression: The oral phase is primarily marked by... -Mildly decreased bolus control w/ mild posterior loss of large and/or sequential sips of thin liquids. -Quick mastication; however, small pieces appeared un-chewed. The pharyngeal phase is primarily marked by... -Delayed swallow onset w/ majority of thin liquid boluses in the pyriforms at swallow onset. -Decreased TB retraction and pharyngeal stripping wave w/ mild-moderate pharyngeal residues, which mostly cleared w/ independent use of a second swallow as needed. -Decreased anterior hyoid excursion and delayed swallow onset w/ laryngeal penetration during the swallow; however, complete laryngeal elevation fully ejected contrast from the larynx after the swallow. No aspiration was observed despite coughing after 2 trials. Effortful swallows and small sips decreased laryngeal penetration and risk for aspiration. The esophageal phase is primarily marked by... -Esophageal retention of pudding throughout the esophagus, which somewhat improved w/ liquid wash. -Mild retention of liquids w/ retrograde flow remaining well below the UES. Recommendations Diet: Regular Textures and Thin Liquids Comment: STOP eating/drinking if increased s/s of reflux, sensation of retention, or regurgitation despite use of strategies and resume meal at a later time. Compensatory Strategies: Small Bites (Chew thoroughly), Small Sips (Effortful swallows), Slow Rate, Alternate bites/solids and sips/liquids (1:1 ratio) and Sitting upright (During and 30 min after po intake) Recommend Repeat Modified Barium Swallow: TBD Need for Skilled Speech Therapy Services: Yes Comment: Recommend OP dysphagia therapy. POC to include the following... -Train the patient in use of strategies to decrease risk for aspiration and reflux aspiration. -Ongoing assessment of diet tolerance of recommended textures. -Train the patient in oropharyngeal exercise program to improve swallow onset, TB retraction, and pharyngeal contraction (Maria Elena, Yadira, Effortful). Recommended Referrals: GI Consult (OP GI follow-up, especially if worsening s/s of reflux or regurgitation of foods. Pt requested DISBURSING OFFICER send this report directly to Dr. Alcantar.) Education Completed: 1. Described result of evaluation. and 2. Pt understands evaluation & agrees with goals and treatment plan. Status Active ST Patient: Active Contact Information [facility] Speech Therapy:: Aminta Herrera M.A. [facility]-DISBURSING OFFICER? Speech-Language Pathologist?? [facility] [address] [place] [address]? [email or web address]?? [phone]
--- NOTE | 2024-09-30 13:59 | HP.SP.EVAL ---
Visit History Visit Info Date of Eval: 09/28/24 Visit: 1 Manager Small Business: DENNIS Cunningham Attending Doctor: ALYSE KIRBY Referring Doctor: ALYSE KIRBY Reason for Referral: LUMBAR LAMINECTOMY. RX HERE SPEECH DYSPHAGIA Medical Diagnosis: Mild Oropharyngeal Dysphagia Date of Onset of Diagnosis: 09/15/24 Previous speech therapy: Yes Other Relevant Medical History/Diagnoses/Surgery: NATHALIE HERMAN is a 63 year old female who attended a speech therapy evaluation at [facility] on 09/28/2024 with concerns for dysphagia. She recently was released from a hospital admission at [facility] when she was having symptoms that mimicked a stroke. She had right sided paresis on her face, tongue, arm, and leg (she is currently participating in PT). She was experiencing aphasia symptoms but those subsided while in the hospital. She used her Life Alert button and the ambulance took her to the ER. Her MRI was unremarkable for CVA or TIA. Pt also participated in speech therapy evaluation when on Acute Care and it was recommended she participate in an MBSS (see results below). She has participated in follow ups with GI. They recommended an EGD which is scheduled for November 2024. Smoking Status: Never smoker Pain Is pain an issue with your current prescribed condition?: No Personal Preferred language: Upper Sorbian Patient Allergies Allergies Allergies: Allergies clindamycin Allergy (Verified 09/27/24 13:08) Rash erythromycin base (Erythromycin Base) Allergy (Verified 09/27/24 13:08) Rash omalizumab (From Xolair) Allergy (Verified 09/27/24 13:08) Chest tightness Penicillins Allergy (Verified 09/27/24 13:08) Rash sulfamethoxazole (From Bactrim) Allergy (Verified 09/27/24 13:08) Chest tightness trimethoprim (From Bactrim) Allergy (Verified 09/27/24 13:08) Chest tightness Sulfa (Sulfonamide Antibiotics) Adverse Reaction (Unknown, Verified 09/27/24 13:08) Unknown shortness of breath Subjective Dysphagia Symptoms Reported Symptoms/Problems with: Difficulty Swallowing Solids and Food gets stuck Current Diet Solids Current Diet: Regular Current Diet Liquids Current Liquids: Thin Comments Patient Report: -: Pt reporting since her stroke-like symptoms a couple of weeks ago, she has been having difficulty with her swallowing. During her admission to acute care she participated in an MBSS which recommended participating in OP therapy upon d/c. Pt reporting difficulty with swallowing solids via report of food feeling like it is sticking. She also experiences an occasional cough during meals. Pt showed esophageal retention during the MBSS which may be referring pain to the hypopharynx with re: the food being stuck. MBSS recommended Pt participate in a home exercise program to target strengthening oropharyngeal musculature. Next treatment session, Pt to participate in a bedside swallow evaluation along with education on swallowing exercises. Unable to complete BSE d/t time constraints of session. Education: -: ST reviewed Pt's MBSS with her re: the anatomical structures on the X-ray along with the reported findings. ST answered questions re: the study and previewed the recommendations made after the study. Modified Barium Results Hx If Applicable Enter into a NOTE MBS Report Entered: Yes MBS Results (from prior exam): 09/30/24 08:28 Speech Therapy by Rebekah Sanchez [facility] Speech Pathology [address] [place] [address] Modified Barium Swallow Study MR#: [id number] Acct: [id number] Name: NATHALIE HERMAN Rep #: [id number] : 1960 63 From: Aminta Herrera M.A., [facility]-ARCHITECTURE ANALYST Modified Barium Swallow Patient Information Study Date: 09/17/24 Study Time: 10:00 Direct Billable Minutes: 117 Total Minutes procedure & reportin Diagnosis: COPD J44.9 Referring Physician: Ramiro Carey Reason for Referral: Pt presented to [facility] ED 09/17/2024 w/ right-sided weakness, slurred speech, facial numbness and headache. She was admitted to the PCU under observation status for completion of her stroke workup. Brain MRI negative for CVA. Pt referred for ST as part of ST work up. Pt reported complaints of swallowing difficulty. BSE recommended regular textures / thin liquids w/ use of safe swallowing precautions and plan for MBSS to further assess aspiration risk due to coughing w/ thin liquids (particularly sequential sips). Pt reports hx of dysphagia s/p neck surgery in 2006 w/ need for liquids and soft solids for 6mo after surgery. Since her recovery, she reports little swallowing difficulty. Regurgitation 1-2X/year. Occ coughing w/ liquids, which has worsened today. Medical History: PMH: Migraine headache, Rectal bleeding, History of transcatheter aortic valve replacement (~04/19/21), COVID-19, Depression, Anxiety, Insulin dependent diabetes mellitus, Arthritis. High cholesterol, PE, Easy bruising, Excessive bleeding, Restless legs, Back pain, TIA, Non-smoker, BiPAP dependence, On home oxygen therapy, SOB on exertion, Hx of DVT, Back pain with sciatica, HTN, CAD, Atherosclerotic heart disease of [place] coronary artery without angina pectoris, Personal history of anaphylaxis, Bilateral carotid bruits, Diastolic heart failure, COPD, CHELSEY w/ BiPAP, Morbid obesity, Asthma. Surgical Hx: Neck surgery (unspecified in EMR) (2006). See EMR for full surgical and PMH. Current Diet Ordered: Regular textures / Thin liquids Dentition: Natural Teeth and Decay Mental Status: WNL Respiratory Status: Oxygenating on Room Air Penetration-Aspiration Scale Penetration-Aspiration Scale: OBJECTIVE ASSESSMENT OF SWALLOW FUNCTION (QUANTITATIVE ? PER TRIAL): PENETRATION / ASPIRATION SCALE ([place]): 1 = does not enter airway 2 = enters airway/above vocal folds/ejected 3 = enters airway/above vocal folds/not ejected 4 = enters airway/contacts vocal folds/ejected 5 = enters airway/contacts vocal folds/not ejected 6 = enters airway/below vocal folds/ejected 7 = enters airway/below vocal folds/not ejected despite effort 8 = enters airway/below vocal folds/no effort VIDEOFLOROSCOPIC SCALE SCORE ([place]): Grade I = aspiration of material that has penetrated into the laryngeal vestibule, intact cough reflex Grade II = aspiration < 10 % of the bolus, intact cough reflex Grade III = aspiration of < 10 % of the bolus, reduced cough reflex or aspiration of > 10 % of the bolus, intact cough reflex Grade IV = aspiration of > 10 % of the bolus, reduced cough reflex Penetration-Aspiration Scale Score Thin Liquid via teaspoon: Result: 1= does not enter airway Thin Liquid via teaspoon Trial 2: Result: 1= does not enter airway Thin Liquid via large single sip: cup: Result: 2= enter airway/above vocal folds/ejected Thin Liquid via sequential sips: cup: Result: 3= enters airways/above vocal folds/not ejected Comment: Coughing episode immediately followed trial with resulting retrograde flow of liquids. After coughing episode was completed, esophageal screen revealed only mild retention of liquid barium in middle esophagus w/ retrograde flow. [place] Thick Liquid via large single sip: cup: Result: 1= does not enter airway Pudding via teaspoon: Result: 1= does not enter airway Comment: Esophageal screen - Retention throughout the esophagus. Thin Liquid via single sip: straw Effortful swallow: Result: 1= does not enter airway Comment: Esophageal screen - Liquid wash cleared a majority of pudding in the esophagus, but continued mild-moderate retention in the upper-middle esophagus. 1/2 Cookie: Result: 1= does not enter airway Comment: Retention of cookie in the upper esophagus. Thin Liquid via large single sip: cup Effortful swallow: Result: 2= enter airway/above vocal folds/ejected Comment: Esophageal screen - Mild retention in the upper and middle esophagus w/ retrograde flow. Oral Phase Labial Seal: No Labial Escape Tongue Control During Bolus Hold: Posterior escape of less than half of bolus Bolus Preparation/Mastication: Disorganized chewing/mashing with solid pieces of bolus unchewed (Timely mastication; however, small pieces of cookie appeared un-chewed) Bolus Transport/Lingual Motion: Brisk tongue motion Oral Residue: Residue collection on oral structures Pharyngeal Phase Initiation of Pharyngeal Swallow: Bolus head in pyriforms Soft Palate Elevation: Trace column of contrast/air between soft palate and pharyngeal wall Laryngeal Elevation: Comp. Superior move thyroid cart w/comp. apprx arytenoid cart-epig pet Anterior Hyoid Excursion: Partial anterior movement Epiglottic Movement: Complete inversion Laryngeal Vestibule Closure at Height of Swallow: Incomplete; narrow column of air/contrast in laryngeal vestibule Pharyngeal Stripping Wave: Present - diminished Pharyngoesophageal Segment Opening: Complete distension and complete duration; no obstruction of flow Tongue Base Retraction: Wide column of contrast between tongue base & post. pharyngeal wall Pharyngeal Residue: Collection of residue within or on pharyngeal structures Esophageal Phase Esophageal Clearance: Esophageal retention w/ retrograde flow below pharyngoesophageal seg. Diagnosis/Impression Diagnosis: Mild oropharyngeal dysphagia R13.12; Esophageal dysphagia R13.14 Impression: The oral phase is primarily marked by... -Mildly decreased bolus control w/ mild posterior loss of large and/or sequential sips of thin liquids. -Quick mastication; however, small pieces appeared un-chewed. The pharyngeal phase is primarily marked by... -Delayed swallow onset w/ majority of thin liquid boluses in the pyriforms at swallow onset. -Decreased TB retraction and pharyngeal stripping wave w/ mild-moderate pharyngeal residues, which mostly cleared w/ independent use of a second swallow as needed. -Decreased anterior hyoid excursion and delayed swallow onset w/ laryngeal penetration during the swallow; however, complete laryngeal elevation fully ejected contrast from the larynx after the swallow. No aspiration was observed despite coughing after 2 trials. Effortful swallows and small sips decreased laryngeal penetration and risk for aspiration. The esophageal phase is primarily marked by... -Esophageal retention of pudding throughout the esophagus, which somewhat improved w/ liquid wash. -Mild retention of liquids w/ retrograde flow remaining well below the UES. Recommendations Diet: Regular Textures and Thin Liquids Comment: STOP eating/drinking if increased s/s of reflux, sensation of retention, or regurgitation despite use of strategies and resume meal at a later time. Compensatory Strategies: Small Bites (Chew thoroughly), Small Sips (Effortful swallows), Slow Rate, Alternate bites/solids and sips/liquids (1:1 ratio) and Sitting upright (During and 30 min after po intake) Recommend Repeat Modified Barium Swallow: TBD Need for Skilled Speech Therapy Services: Yes Comment: Recommend OP dysphagia therapy. POC to include the following... -Train the patient in use of strategies to decrease risk for aspiration and reflux aspiration. -Ongoing assessment of diet tolerance of recommended textures. -Train the patient in oropharyngeal exercise program to improve swallow onset, TB retraction, and pharyngeal contraction (Maria Elena, Yadira, Effortful). Recommended Referrals: GI Consult (OP GI follow-up, especially if worsening s/s of reflux or regurgitation of foods. Pt requested ARCHITECTURE ANALYST send this report directly to Dr. Alcantar.) Education Completed: 1. Described result of evaluation. and 2. Pt understands evaluation & agrees with goals and treatment plan. Status Active ST Patient: Active Contact Information [facility] Speech Therapy:: Aminta Herrera M.A. [facility]-ARCHITECTURE ANALYST? Speech-Language Pathologist?? [facility] [address] [place] [address]? [email or web address]?? [phone] Initialized on 09/30/24 08:28 - END OF NOTE Swallowing Performance Scale Swallowing Performance Scale Swallowing Performance Scale Result: 3 Mild Reference: Neuro-QoL instrument Radiation Oncology Patient Plan Plan Plan: Will rx Pt for skilled outpatient tx to address mild deficits in oropharyngeal dysphagia. Pt would benefit from training and education re: process of diet tolerance checks and swallowing exercises to aid in oropharyngeal strengthening. Without skilled intervention, Pt is at risk for consuming a restrictive diet putting her at risk for aspiration pneumonia and atrophy of laryngeal musculature. Recommendations Treatment Warranted: Yes Treatment Warranted: Dysphagia Progress Prognosis: Excellent Frequency Frequency: Every Other Week Duration: 6 Weeks Visits in this POC: 6 Patient/Family Goal Patient/Family Goal: To improve swallow function Goals that are Established Determination:: Goals will be added/modified as deemed necessary and appropriate. Therapy will be discontinued when results of re-evaluation indicate therapy is no longer needed or lack of progress has been documented. Goal #1-5 Goal #1: Nathalie will complete oropharyngeal exercises (i.e., Maria Elena, Yadira, Effortful) for 10 reps, 3x/day independently to improve tongue base retraction, PES opening/distention, and hyolaryngeal elevation and excursion. Goal #2: Nathalie will voice understanding of safe swallowing strategies (i.e., small Bites (Chew thoroughly), Small Sips (Effortful swallows), Slow Rate, Alternate bites/solids and sips/liquids (1:1 ratio) and Sitting upright)) in at least 2 treatment sessions. Education Patient has Indicated that the Following Identified Educational Needs: None The Patient has indicated that they have no educational or learning abilities that may effect their care.: Yes Patient Instruction Patient Education: Diagnosis, Treatment Plan and Goals Person Taught: Patient Teaching Method: Discussion and Demonstration Response to teaching: Return Demonstration and Verbalize Understanding
--- NOTE | 2024-11-02 12:58 | HP.PTDCSUM ---
Discharge Summary D/C summary: It has been my pleasure to treat NATHALIE HERMAN referred by ALYSE KIRBY, with the diagnosis of S/P LUMBAR LAMINECTOMY FOR SPINAL CORD COMPRESSION for a total of 12 visit(s). Discharge Date: Please see the following information for a summary of their discharge status. Subjective Subjective: very late for session today. Was on her feet more yesterday, hence the pain increases today. Pain Bilateral Back: Pain Intensity (Out of 10): 7 Right Lower Extremity: Pain Intensity (Out of 10): 6 Overall Improvement % Improvement: 10 Objective Objective/Function: pt willing to do her pool ex considering her pain. pt notes pain relief in the water w/ the decompression reducing her pain. Tolerated increased reps w/ her ex today. Goals Goal 1:: Patient to be I with HEP for back Goal Progress: Progressing Goal 2:: Patient to improve lumbar ROM for function of recovery to put on shoes Goal Progress: Progressing Goal 3:: Patient to improve peak force quads/hams/hip by 5-10 # to improve function and gait.( [place]) Goal 4:: Patient to ambulate with least restrictive device community distances unlimited. Goal Progress: Not Progressing Goal 5:: Patient to improve back oswestry score by 5 points to improve QOL Goal Progress: Progressing Goal 6:: Patient to demonstrate 50% to improve gait and function Goal Progress: Progressing Plan Plan: S/P LUMBAR LAMINECTOMY May PT INTERVENTIONS AQUATIC THERAPY LE FLEXABILITY ,DLS ,POSTURAL EX'S , BLE STRENGTHENING , BALANCE PROGRAM ,AND ENDURANCE EX'S D/C Information d/c sentence: If there are questions or concerns regarding this patient's physical therapy, please feel free to call me at [phone]. Thank you for the referral of this patient. Sincerely, Denis Peralta, PT, Cert MDT, OCS Balance/Gait/Functional tests Balance/Special Test Scores Oswestry Low Back Score: 34 Improvement % Improvement: 10
== END 2024-10-01 19:00 | disposition home or self-care (01) ==
LOC: PT 10:30
PROVIDERS: PCP Internal Medicine
DX: Z98.890 Other specified postprocedural states (principal); M54.31 Sciatica, right side; M62.838 Other muscle spasm; R13.12 Dysphagia, oropharyngeal phase
CPT/HCPCS: 92610; 97035; 97110; 97113; 97162; 97530

== ENCOUNTER → 2024-10-04 | Outpatient (CLI) | payer MEDICARE, MEDICAID, SELFPAY ==
[2021-09-03 12:59] VITALS: BMI 43.4
--- NOTE | 2024-10-04 11:13 | US_ITS ---
STUDY: ABDOMINAL ULTRASOUND - RIGHT UPPER QUADRANT; ELASTOGRAPHY REASON FOR VISIT: Female, 63 years old. Nonalcoholic liver disease. TECHNIQUE: Ultrasound evaluation of the right upper quadrant was performed with real-time and static carrington-scale imaging. Point quantification shear wave elastography was performed ([place]). TECHNICAL QUALITY: Adequate. COMPARISON: None. FINDINGS: Liver: The liver is enlarged and measures 23.5 cm. There is increased echogenicity consistent with fatty infiltration. Focal fatty sparing along the gallbladder fossa. The bile ducts are within normal limits. There is hepatic color flow. The direction of portal flow is hepatopetal. There is no demonstrated mass lesion. Median liver stiffness measured 8.5 kPa. Gallbladder: Normal distended gallbladder. The gallbladder wall measures 2.2 mm. There is a negative sonographic Laurent''s sign. There is no pericholecystic fluid. There are no gallstones. Common Bile Duct (C.B.D.): The common bile duct measures 4.8 mm. Pancreas: There is increased echogenicity of the pancreas. There is no demonstrated pancreatic mass or cyst. Right Kidney: Normal size of the right kidney. The right kidney measures 11.3 cm x 3.9 cm x 3.4 cm. There is thinning of the renal cortex. The right cortex measures 0.7 cm. There is no demonstrated renal mass or cyst. There is no right hydronephrosis. US/ABD Limited w/ Elastography IMPRESSION: 1. Liver stiffness measures 8.5 kPa compatible with F2-F3 (Mild to moderate liver fibrosis) Metavir score. 2. Hepatomegaly and fatty infiltration of the liver. 3. Thinning of the right renal cortex. Electronically Signed: Lon Fuchs MD at 13:09 EST ,
== END | disposition home or self-care (01) ==
LOC: US 11:04
PROVIDERS: PCP Internal Medicine; Referring Provider Internal Medicine; Visit Provider Internal Medicine
DX: K76.89 Other specified diseases of liver (principal)
CPT/HCPCS: 76705; 76981

== ENCOUNTER 2024-10-05 05:51 | Inpatient (IN) | payer MEDICARE, MEDICAID, SELFPAY ==
[2021-09-03 12:59] VITALS: BMI 43.4
[2024-10-05] VITALS (22 sets, daily range): BP systolic 119–154; BP diastolic 45–94; PULSE 44–71; RESP 12–25; TEMP 36.3–36.8; O2SAT 20–98; BMI 42.9; BMI 43.7
--- NOTE | 2024-10-05 05:53 | EKG12_ITS ---
Test Reason : STROKE ALERT Blood Pressure : */* mmHG Vent. Rate : 45 BPM Atrial Rate : 45 BPM P-R Int : 220 ms QRS Dur : 142 ms QT Int : 484 ms P-R-T Axes : 51 -24 14 degrees QTcB Int : 418 ms Sinus bradycardia with 2:1 heart block Right bundle branch block Abnormal ECG Reconfirmed by DARION MAURICIO, ADITHYA ([id number]), copy editor JIM LAKHANI ([id number]) on 10/11/2024 8:33:47 AM Referred By: Confirmed By: ADITHYA ORLANDO MD
--- NOTE | 2024-10-05 05:53 | RAD_ITS ---
EXAM: XR CHEST, 1 VIEW CLINICAL INDICATION: Neuro deficit, acute, stroke suspected TECHNIQUE: Frontal view of the chest. COMPARISON: Single view chest 09/15/2024 FINDINGS: LUNGS AND PLEURAL SPACES: Central pulmonary vascular congestion, diffuse pulmonary edema and small pleural effusions. No pneumothorax. HEART: Unremarkable. Cardiac silhouette not enlarged. MEDIASTINUM: Central airways and mediastinal contour are unremarkable. BONES/JOINTS: Unremarkable. No acute fracture. SOFT TISSUES: Unremarkable. RAD/Chest 1 View IMPRESSION: Central pulmonary vascular congestion, diffuse pulmonary edema and small pleural effusions. Findings may indicate CHF. Electronically Signed: Aly Beck MD at 7:50 EST ,
--- NOTE | 2024-10-05 05:53 | CT_ITS ---
INDICATION: Neuro deficit, acute, stroke suspected EXAMINATION: CT BRAIN - CT Head Stroke Protocol W/O Contrast Injection TECHNIQUE: Serial CT axial images were obtained of the head without intravenous contrast. A radiation dose optimization technique was used for this scan. COMPARISON: 09/15/[address] Findings: Serial CT axial images of the head without contrast. BRAIN PARENCHYMA: Diffuse periventricular hypoattenuation likely chronic white matter ischemic changes. Moderate to diffuse volume loss. No evidence of intraparenchymal hemorrhage or hyperattenuating extra-axial fluid collection. VASCULAR STRUCTURES: Atherosclerotic vascular calcifications. BONES: Paranasal sinuses are clear. SCALP/REMAINING SOFT TISSUES: Unremarkable. ASPECTS Score for Acute Strokes, if applicable: 10 CT/STROKE Brain/Head without Cont IMPRESSION: Age-related changes as above, without evidence of acute intracranial hemorrhage in this noncontrast head CT. Stroke protocol head CT results discussed with Dr. Acevedo at 0606 hours eastern time 10/05/2024. N.B. : The above Results were Read Back by Francesco Dahl MD to Juan Acevedo DO, and understanding confirmed on 10/05/2024 06:10:08 (ET). Electronically Signed: Francesco Dahl MD at 6:11 EST ,
--- NOTE | 2024-10-05 05:54 | CT_ITS ---
EXAM: CT ANGIOGRAPHY HEAD AND NECK WITH INTRAVENOUS CONTRAST CLINICAL INDICATION: Neuro deficit, acute, stroke suspected TECHNIQUE: [facility]/head and neck CT angiography protocol performed with intravenous contrast. This CT exam was performed using one or more of the following dose reduction techniques: automated exposure control, adjustment of the mA and/or kV according to patient size, and/or use of iterative reconstruction technique. MIP reconstructed images were created and reviewed. CONTRAST: IV 100mL [id number] RADIATION DOSE: CTDIvol = 25.43 mGy, DLP = 882.34 mGy-cm COMPARISON: Noncontrast head CT from seen date as well as previous CTA head/neck from 09/15/2024 FINDINGS: HEAD: RIGHT ANTERIOR CEREBRAL ARTERY: Unremarkable. No occlusion or significant stenosis. Anterior communicating artery is present. No aneurysm. RIGHT MIDDLE CEREBRAL ARTERY: Unremarkable. No occlusion or significant stenosis. No aneurysm. RIGHT POSTERIOR CEREBRAL ARTERY: Unremarkable. No occlusion or significant stenosis. No aneurysm. RIGHT INTRACRANIAL INTERNAL CAROTID ARTERY: Moderate stenosis in the cavernous sinus segment. No dissection or occlusion. RIGHT INTRACRANIAL VERTEBRAL ARTERY: Unremarkable. No significant stenosis. No dissection or occlusion. LEFT ANTERIOR CEREBRAL ARTERY: Unremarkable. No occlusion or significant stenosis. No aneurysm. LEFT MIDDLE CEREBRAL ARTERY: Unremarkable. No occlusion or significant stenosis. No aneurysm. LEFT POSTERIOR CEREBRAL ARTERY: Unremarkable. No occlusion or significant stenosis. No aneurysm. LEFT INTRACRANIAL INTERNAL CAROTID ARTERY: Moderate stenosis in the cavernous sinus segment. No dissection or occlusion. LEFT INTRACRANIAL VERTEBRAL ARTERY: Unremarkable. No significant stenosis. No dissection or occlusion. BASILAR ARTERY: Unremarkable. No occlusion or significant stenosis. No aneurysm. OTHER VASCULATURE: No vascular malformation. NECK: RIGHT COMMON CAROTID ARTERY: Unremarkable. No significant stenosis. No dissection or occlusion. RIGHT EXTRACRANIAL INTERNAL CAROTID ARTERY: Calcified plaque with less than 50% stenosis proximally. No dissection or occlusion. RIGHT EXTERNAL CAROTID ARTERY: Unremarkable. No occlusion. RIGHT EXTRACRANIAL VERTEBRAL ARTERY: Unremarkable. No significant stenosis. No dissection or occlusion. LEFT COMMON CAROTID ARTERY: Unremarkable. No significant stenosis. No dissection or occlusion. LEFT EXTRACRANIAL INTERNAL CAROTID ARTERY: Calcified plaque with less than 50% stenosis proximally. No dissection or occlusion. LEFT EXTERNAL CAROTID ARTERY: Unremarkable. No occlusion. LEFT EXTRACRANIAL VERTEBRAL ARTERY: Unremarkable. No significant stenosis. No dissection or occlusion. BRACHIOCEPHALIC AND SUBCLAVIAN ARTERIES: Unremarkable as visualized. No occlusion or significant stenosis. LUNG APICES: Small bilateral pleural effusions are incidentally noted as well as mild pulmonary edema. HEAD and NECK: BONES/JOINTS: Degenerative and postsurgical changes of the cervical spine. No discrete lytic or blastic abnormalities. SOFT TISSUES: Unremarkable. CAROTID STENOSIS REFERENCE USING NASCET CRITERIA: % ICA stenosis = (1 - narrowest ICA diameter/diameter of distal cervical ICA) x 100. Mild - <50% stenosis. Moderate - 50-69% stenosis. Severe - 70-94% stenosis. Near occlusion - 95-99% stenosis. Occluded - 100% stenosis. CT/STROKE CTA Head AND Neck W/Con IMPRESSION: 1. No large vessel occlusion or other acute arterial abnormalities identified on this CTA head/neck exam. 2. Mild, less than 50% stenosis of the proximal internal carotid arteries bilaterally. 3. Moderate stenosis in the cavernous sinus segment of the internal carotid arteries bilaterally. 4. Small bilateral pleural effusions are incidentally noted as well as mild pulmonary edema. N.B. : The above Results were Read Back by Aly Beck MD to Juan Acevedo DO, and understanding confirmed on 10/05/2024 06:51:16 (ET). Electronically Signed: Aly Beck MD at 6:52 EST ,
[2024-10-05 05:59] LABS: Absolute Lymphocyte Count 2.16 X10^3/uL (0.83-4.51); Absolute Neutrophil Count 5.5 X10^3/uL (2.0-7.7); Basophil# 0.05 X10^3/uL; Basophil% 0.6 % (0-1); Eosinophil# 0.08 X10^3/uL; Eosinophils% 0.9 % (0-5); Hematocrit 39.9 % (37-47); Hemoglobin 13.2 g/dL (12.0-15.0); Lymphocyte # 2.16 X10^3/ul (0.83-4.51); Lymphocyte % 24.1 % (19-41); Mean Corp Hgb Conc 33.1 g/dL (32-36); Mean Corpuscular Hgb 29.4 pg (27.0-32.0); Mean Corpuscular Volume 88.9 fL (81-99); Mean Platelet Vol. 11.1 fl (6.2-12.0); Monocyte# 1.17 X10^3/uL; NRBC Flagged by Analyzer 0 % (0-5); Neutrophil # 5.46 X10^3/uL (2.7-7.7); Neutrophil % 60.8 % (47-70); Platelet Count 200 K/mm3 (150-450); RBC Distribution Width CV 16.3 % (11.6-14.6); RBC Distribution Width SD 52.3 fl (35.1-43.9); Red Blood Count 4.49 M/mm3 (4.2-5.4)
--- NOTE | 2024-10-05 05:59 | EX.ED.DYSGE1 ---
HPI History of Present Illness Chief Complaint: Stroke Alert Narrative Narrative: Patient is a 63-year-old female with a past medical history of anxiety, depression, hypercholesteremia, PE/DVT on warfarin, TIA, CAD, COPD, CHELSEY, type 2 diabetes who presents to the emergency department chief complaint of right sided body weakness. Patient states that last night she went to bed around 11 PM on 10/04/2024 and noted that she was her normal self. States that she woke up this morning secondary to difficulty breathing and attempted to go get a breathing treatment when she does this she noted that she could not move her right side. Patient denies any other complaints. Per EMS her glucose was noted be normal. [facility] Medical History Obesity (BMI 30-39.9) Subtherapeutic international normalized ratio (INR) Migraine headache Rectal bleeding Peripheral neuropathy Positive FIT (fecal immunochemical test) History of transcatheter aortic valve replacement (TAVR) (~04/19/21) COVID-19 Depression Anxiety Discoloration of skin History of steroid therapy Insulin dependent diabetes mellitus Diabetes Arthritis High cholesterol Pulmonary embolism Easy bruising Excessive bleeding Restless legs Back pain TIA (transient ischemic attack) Non-smoker BiPAP (biphasic positive airway pressure) dependence On home oxygen therapy Shortness of breath on exertion Leg cramps History of pain when walking History of edema History of stress test Hx of transesophageal echocardiography (YOLANDA) for monitoring History of echocardiogram Cardiology follow-up encounter Rotator cuff arthropathy of right shoulder History of DVT (deep vein thrombosis) Back pain with sciatica Nonrheumatic aortic (valve) stenosis Essential hypertension Carotid artery disease Atherosclerotic heart disease of [place] coronary artery without angina pectoris Personal history of anaphylaxis Bilateral carotid bruits Body mass index 45.0-49.9, adult Diastolic heart failure COPD (chronic obstructive pulmonary disease) CHELSEY treated with BiPAP History of pulmonary embolism Morbid obesity Type 2 diabetes mellitus Asthma Home Medications ?Medication ?Instructions ?Recorded ?Last Taken ?Type fluoxetine 20 mg capsule 40 mg PO DAILY anxiety 01/26/14 04/05/21 History calcium 600 mg-D3 800 unit-mag 40 1 ea PO DAILY vitamins 05/27/16 04/05/21 History ao-eubh-rcsk-angel-boron chew tablet fenofibrate nanocrystallized 145 72.5 mg PO QHS cholesterol 04/26/19 04/04/21 History mg tablet trazodone 50 mg tablet 50 mg PO QHS sleep 08/09/19 04/04/21 History epinephrine 0.3 mg/0.3 mL 0.3 mg (0.3 mL) IM X1 PRN 01/18/20 Unknown Rx injection, auto-injector Anaphylaxis #1 ea albuterol sulfate 2.5 mg/3 mL 2.5 mg (3 mL) inhalation Q2H PRN 04/24/20 07/02/21 09:00 Rx (0.083 %) solution for nebulization PRN dyspnea, wheezing #180 mL albuterol sulfate 90 mcg/actuation 2 inh inhalation Q4H PRN PRN Sob 04/24/20 04/29/22 Rx aerosol inhaler &/Or Wheezing #18 grams montelukast 10 mg tablet 10 mg PO DAILY allergies/asthma 12/07/20 04/05/21 Rx #30 tabs alendronate 70 mg tablet 70 mg PO WE bone health 12/21/20 08/07/22 History nystatin 100,000 unit/gram topical 1 applic topical BID PRN PRN YEAST 12/21/20 04/05/21 History powder beclomethasone dipropionate 80 1 inh inhalation BID Asthma 03/22/21 07/02/21 09:00 History mcg/actuation HFA breath activated aerosol budesonide-formoterol HFA 160 2 puff inhalation BID asthma 03/22/21 04/29/22 History mcg-4.5 mcg/actuation aerosol inhaler ipratropium 0.5 mg-albuterol 3 mg 3 ml inhalation BID asthma 03/22/21 04/05/21 History (2.5 mg base)/3 mL nebulization soln cyanocobalamin (vitamin B-12) 100 100 mcg PO DAILY supplement 04/05/21 04/05/21 History mcg tablet (Vitamin B-12) melatonin 10 mg tablet 12 mg PO QHS sleep 04/05/21 04/04/21 History pregabalin 150 mg capsule 150 mg PO TID nerve pain 04/05/21 08/11/22 History meclizine 25 mg tablet 25 mg PO DAILY PRN Vertigo 05/04/21 Unknown History docusate sodium 100 mg capsule 100 mg PO DAILY stool softener 08/17/21 Unknown History magnesium 250 mg tablet 400 mg PO DAILY supplement 08/17/21 Unknown History ascorbate calcium (vitamin C) 500 1 g PO DAILY vitamin 11/07/21 09/29/23 History mg tablet chromium picolinate 200 mcg tablet 200 mcg PO DAILY supplement 11/07/21 Unknown History clobetasol 0.05 % topical cream 1 applic topical PRN PRN 11/07/21 Unknown History RASH/ITCHING levocetirizine 5 mg tablet 5 mg PO DAILY allergies 11/07/21 Unknown History dapagliflozin propanediol 10 mg 10 mg PO DAILY diabetes 08/11/22 08/11/22 History tablet (Farxiga) multivitamin (Daily Multi-Vitamin 1 tab PO DAILY vag itching 06/12/23 Unknown History tablet) quercetin 500 mg capsule 500 mg PO DAILY supplement 06/12/23 Unknown History semaglutide 1 mg/dose (4 mg/3 mL) 1 mg subcut ECHEVARRIA diabetes 06/12/23 Unknown History subcutaneous pen injector (Ozempic) tiotropium bromide 18 mcg capsule 18 mcg inhalation DAILY asthma 06/12/23 Unknown History with inhalation device rizatriptan 10 mg tablet (Maxalt) 10 mg PO Q2H PRN migraine headache 06/13/23 Unknown Rx #10 tabs azelastine 137 mcg-fluticasone 50 2 spray intranasal BID allergy 08/25/23 Unknown History mcg/spray nasal spray cholecalciferol (vitamin D3) 125 125 mcg PO DAILY vitamin-self care 08/25/23 Unknown History mcg (5,000 unit) tablet (Vitamin D3) sennosides 8.6 mg tablet (senna) 17.2 mg (2 x 8.6 mg) PO BID stool 09/03/23 Unknown Rx softner #120 tabs Lactobacillus acidophilus 1 tab PO DAILY Supplement 09/29/23 Unknown History (Acidophilus chewable tablet) ondansetron 4 mg disintegrating 4 mg PO DAILY PRN nausea 09/29/23 Unknown History tablet oxycodone-acetaminophen 5 mg-325 1 tab PO BID pain 09/29/23 Unknown History mg tablet sennosides 8.6 mg-docusate sodium 2 tab-cap PO DAILY PRN constipation 09/29/23 Unknown History 50 mg tablet zinc 100 mg tablet 100 mg PO DAILY supplement 09/29/23 Unknown History diltiazem HCl 120 mg 120 mg PO .COMPLEX high blood 02/02/24 Unknown History capsule,extended release 24 hr pressure (Cardizem CD) diltiazem HCl 240 mg 240 mg PO QDAY 02/16/24 Unknown History capsule,extended release 24 hr spironolactone 50 mg tablet 50 mg PO DAILY #30 tabs 02/16/24 Unknown Rx methocarbamol 500 mg tablet 500 mg PO .COMPLEX PRN ASK PCP 08/17/24 Unknown History polyethylene glycol 3350 17 gram 17 g PO QDAY self care 08/17/24 Unknown History oral powder packet losartan 50 mg tablet 50 mg PO DAILY 09/15/24 Unknown History polyethylene glycol 3350 17 8.5 g PO QDAY PRN constipation 09/15/24 Unknown History gram/dose oral powder (ClearLax) tiotropium bromide inhalation DAILY PRN SOB 09/15/24 Unknown History atorvastatin 40 mg tablet 40 mg PO QHS 30 days #30 tabs 09/17/24 Unknown Rx insulin glargine U-300 conc 300 35 unit (0.1167 mL) subcut BID 09/17/24 Unknown Rx unit/mL (1.5 mL) subcutaneous pen DIABETES 30 days #0 mL (Toujeo SoloStar U-300 Insulin) omeprazole 40 mg capsule,delayed 40 mg PO DAILY gerd 30 days #0 caps 09/17/24 Unknown Rx release topiramate 50 mg tablet 50 mg PO BID 30 days #60 tabs 09/17/24 Unknown Rx furosemide 40 mg tablet 80 mg PO .BID MWF diuresis 09/27/24 Unknown History warfarin 10 mg tablet [address] Soria 09/27/24 Unknown History Manages. warfarin 2 mg tablet 3 mg PO .QSUTUTHSA 09/27/24 Unknown History Allergy/AdvReac Type Severity Reaction Status Date / Time clindamycin Allergy Rash Verified 10/05/24 05:52 erythromycin base Allergy Rash Verified 10/05/24 05:52 (Erythromycin Base) omalizumab (From Xolair) Allergy Chest Verified 10/05/24 05:52 tightness Penicillins Allergy Rash Verified 10/05/24 05:52 sulfamethoxazole (From Allergy Chest Verified 10/05/24 05:52 Bactrim) tightness trimethoprim (From Bactrim) Allergy Chest Verified 10/05/24 05:52 tightness Sulfa (Sulfonamide AdvReac Unknown Unknown Verified 10/05/24 05:52 Antibiotics) Family History Father Heart disease Diabetes CAD (coronary artery disease) Mother CAD (coronary artery disease) CVA (cerebral vascular accident) Diabetes Brother CAD (coronary artery disease) CVA (cerebral vascular accident) Diabetes Unknown Cancer Grandmother CVA (cerebral vascular accident) Diabetes Grandfather CVA (cerebral vascular accident) Grandmother Myocardial infarction Brother Diabetes Sister Diabetes Surgical History History of laminectomy History of colonoscopy History of cardiac catheterization Aortic valve replaced History of left heart catheterization (LHC) (~01/19/21) H/O lumbosacral spine surgery History of rotator cuff surgery Hx of appendectomy History of hernia repair History of section History of neck surgery Social History household members: spouse housing: apartment pets and animals: Yes Smoking Status: Never smoker second hand exposure: No alcohol intake: current alcohol intake frequency: a few times a week substance use type: does not use caffeine: No what type of physical activity do you participate in: none do you feel safe at home: Yes ROS ROS ED ROS Narrative Constitutional: Patient states that she has had a headache for the past few days, denies any dizziness Eyes: Denies double vision blurry vision changes vision Cardiovascular: Denies chest pain or palpitations Respiratory: Complains of shortness of breath as noted above Abdomen: Denies abdominal pain nausea vomit diarrhea : Denies any urinary symptoms Neurological: Complains of right-sided body weakness denies any numbness, tingling Musculoskeletal: Denies back. Skin: Denies any rashes or lesions EXAM Physical Exam Narrative Exam Narrative: General: Patient lying in bed rest comfortably did not appear to be acute distress Head: Atraumatic, normocephalic Eyes: PERRL body, EOMI bilateral, no conjunctival injection noted Neck: Soft, supple, trachea midline Cardiovascular: Regular rate and rhythm Respiratory: Patient has end expiratory wheezing noted bilaterally Abdomen: No tenderness to palpation, soft, nondistended Extremities: Patient has significant right sided body weakness, radial pulses +2/4 in the bilateral upper extremities Neurological: Patient following commands knew that she was at [facility] years 2023. GCS 15 NIH of 14 Skin: Warm, dry, intact Const Vital Signs: 10/05/24 05:52 10/05/24 05:53 10/05/24 06:02 Temperature 98.0 F Temperature Source Oral Pulse Rate 44 L 48 L Respiratory Rate 20 H 20 H Respiratory Pattern Blood Pressure 151/94 H 143/47 H Blood Pressure Mean 113 79 Pulse Ox 92 95 Oxygen Delivery Method Nasal Cannula Nasal Cannula Oxygen Flow Rate (L/min) 4 4 10/05/24 06:13 10/05/24 06:22 10/05/24 06:23 Temperature Temperature Source Pulse Rate 45 L 44 L Respiratory Rate 20 H 22 H Respiratory Pattern Tachypnea Blood Pressure 149/45 H Blood Pressure Mean 79 Pulse Ox 93 Oxygen Delivery Method Nasal Cannula Nasal Cannula Oxygen Flow Rate (L/min) 4 4 10/05/24 06:30 10/05/24 06:51 10/05/24 07:00 Temperature Temperature Source Pulse Rate 45 L 46 L 46 L Respiratory Rate 20 H 20 H 20 H Respiratory Pattern Blood Pressure 143/47 H 148/45 H 148/45 H Blood Pressure Mean 79 79 79 Pulse Ox 91 92 92 Oxygen Delivery Method Nasal Cannula Nasal Cannula Nasal Cannula Oxygen Flow Rate (L/min) 4 4 4 10/05/24 07:00 Temperature Temperature Source Pulse Rate 46 L Respiratory Rate 20 H Respiratory Pattern Blood Pressure 148/45 H Blood Pressure Mean 79 Pulse Ox 20 Oxygen Delivery Method Room Air Oxygen Flow Rate (L/min) MDM MDM MDM Narrative Medical decision making narrative: Patient is a 63-year-old female who presented to the emergency department chief complaint of right side of body weakness. Patient will have a workup performed here on the differential diagnose includes but not limited to intracranial hemorrhage, ischemic stroke, hypoglycemia. Once workup is obtained reviewed she will be reevaluated. Patient is not a tenecteplase candidate as her last known well was 11 PM last night as noted above in the note and she is on warfarin. Patient was noted to have significant end expiratory wheezing noted bilaterally she does have a history of COPD patient already received 1 breathing treatment en route via EMS and she will be given 2 more DuoNebs here as well as Solu-Medrol. Patient is EKG reviewed and independently interpreted by myself showed sinus bradycardia with a rate 45 bpm with evidence of first-degree AV block. Patient CBC reviewed and showed no evidence of leukocytosis white blood count normal at 9, hemoglobin 13.2, platelet count noted to be 200. Patient's PT was noted to be 22 INR of 1.9. Patient sodium normal 141, potassium normal 3.7, creatinine was 1.31 she does appear to have some underlying chronic kidney disease based on previous blood draws. Patient's AST and ALT were 19 and 19 respectively, troponin was noted to be 94. Patient's proBNP is pending. Patient CT head and brain without contrast showed no acute intracranial hemorrhage. Patient's CTA of the head and neck reviewed and showed no evidence of large vessel occlusion. Mild less than 50% stenosis of the proximal internal carotid arteries bilaterally. Moderate stenosis in the cavernous sinus segment of the internal carotid arteries bilaterally. Small bilateral pleural effusions are incidentally noted as well as mild pulmonary edema. Patient will require admission to the hospital for further stroke workup as well as her COPD exacerbation. Patient case will be discussed with hospitalist for admission. Patient was given 325 mg of aspirin. Discussed case with Dr. Carey who will accept the patient for admission. Patient was notified she is agreeable this plan all course concerns answered bedside. Lab Data Labs: Laboratory Results - last 24 hr 10/05/24 05:50 WBC 9.0 RBC 4.49 Hgb 13.2 Hct 39.9 MCV 88.9 MCH 29.4 MCHC 33.1 RDW Std Deviation 52.3 H RDW Coeff of Carmencita 16.3 H Plt Count 200 MPV 11.1 Immature Gran % (Auto) 0.600 Neut % (Auto) 60.8 Lymph % (Auto) 24.1 [place] % (Auto) 13.0 H Eos % (Auto) 0.9 Baso % (Auto) 0.6 Absolute Neuts (auto) 5.5 Absolute Lymphs (auto) 2.16 Nucleated RBC % 0 PT 22.0 H INR 1.9 APTT 53.8 H Sodium 141 Potassium 3.7 Chloride 110 H Carbon Dioxide 24.0 Anion Gap 7 BUN 27 H Creatinine 1.31 H Estim Creat Clear Calc 53.55 Est GFR (MDRD) Af Amer 52 L Est GFR (MDRD) Non-Af 43 L BUN/Creatinine Ratio 20.6 H Glucose 157 H Calcium 8.7 Total Bilirubin 0.40 Direct Bilirubin 0.14 AST 19 ALT 19 Alkaline Phosphatase 63 Troponin I High Sens 94 H Total Protein 6.5 Albumin 3.1 L Globulin 3.4 Radiography Diagnostic Testing: Clinical Impression(s) from Imaging Studies Brain CT 10/05/24 05:53 IMPRESSION: Age-related changes as above, without evidence of acute intracranial hemorrhage in this noncontrast head CT. Stroke protocol head CT results discussed with Dr. Acevedo at 0606 hours eastern time 10/05/2024. N.B. : The above Results were Read Back by Francesco Dahl MD to Juan Acevedo DO, and understanding confirmed on 10/05/2024 06:10:08 (ET). Electronically Signed: Francesco Dahl MD at 6:11 EST , ADDENDUM: 10/05/24 0618 IMPRESSION: Age-related changes as above, without evidence of acute intracranial hemorrhage in this noncontrast head CT. Stroke protocol head CT results discussed with Dr. Acevedo at 0606 hours eastern time 10/05/2024. N.B. : The above Results were Read Back by Francesco Dahl MD to Juan Acevedo DO, and understanding confirmed on 10/05/2024 06:10:08 (ET). Electronically Signed: Francesco Dahl MD at 6:11 EST , Head/Neck CTA 10/05/24 05:54 IMPRESSION: 1. No large vessel occlusion or other acute arterial abnormalities identified on this CTA head/neck exam. 2. Mild, less than 50% stenosis of the proximal internal carotid arteries bilaterally. 3. Moderate stenosis in the cavernous sinus segment of the internal carotid arteries bilaterally. 4. Small bilateral pleural effusions are incidentally noted as well as mild pulmonary edema. N.B. : The above Results were Read Back by Aly Beck MD to Juan Acevedo DO, and understanding confirmed on 10/05/2024 06:51:16 (ET). Electronically Signed: Aly Beck MD at 6:52 EST , ADDENDUM: 10/05/24 0659 IMPRESSION: 1. No large vessel occlusion or other acute arterial abnormalities identified on this CTA head/neck exam. 2. Mild, less than 50% stenosis of the proximal internal carotid arteries bilaterally. 3. Moderate stenosis in the cavernous sinus segment of the internal carotid arteries bilaterally. 4. Small bilateral pleural effusions are incidentally noted as well as mild pulmonary edema. N.B. : The above Results were Read Back by Aly Beck MD to Juan Acevedo DO, and understanding confirmed on 10/05/2024 06:51:16 (ET). Electronically Signed: Aly Beck MD at 6:52 EST , Discharge Plan Triage Chief Complaint: Stroke Alert ED Provider: Juan Acevedo Dx/Rx/DC Orders Clinical Impression: Acute CVA (cerebrovascular accident), COPD exacerbation Prescriptions: No Action trazodone 50 mg tablet 50 mg PO QHS albuterol sulfate 2.5 mg /3 mL (0.083 %) solution for nebulization 2.5 mg INHALATION Q2H PRN PRN (Reason: dyspnea, wheezing) Qty: 180 6RF albuterol sulfate 90 mcg/actuation HFA aerosol inhaler 2 inh INHALATION Q4H PRN PRN (Reason: Sob &/Or Wheezing) Qty: 18 6RF montelukast 10 mg tablet 10 mg PO DAILY Qty: 30 6RF alendronate 70 mg tablet 70 mg PO WE nystatin 100,000 unit/gram powder 1 applic TOPICAL BID PRN PRN (Reason: YEAST) meclizine 25 mg tablet 25 mg PO DAILY PRN (Reason: Vertigo) magnesium 250 mg tablet 400 mg PO DAILY levocetirizine 5 mg tablet 5 mg PO DAILY clobetasol 0.05 % cream 1 applic topical PRN PRN (Reason: RASH/ITCHING) chromium picolinate 200 mcg tablet 200 mcg PO DAILY ascorbate calcium (vitamin C) 500 mg tablet 1 g PO DAILY diltiazem HCl 240 mg capsule,extended release 24hr 240 mg PO QDAY spironolactone 50 mg tablet 50 mg PO DAILY Qty: 30 11RF Rx Instructions: Take at evening meal with Losartan polyethylene glycol 3350 17 gram powder in packet 17 g PO QDAY Rx Instructions: OTC methocarbamol 500 mg tablet 500 mg PO .COMPLEX PRN (Reason: ASK PCP) Rx Instructions: 500 mg orally FOUR TIMES DAILY PRN; warfarin 2 mg tablet 3 mg PO .QSUTUTHSA Rx Instructions: Hold for INR more than 2.5 fluoxetine 20 MG capsule 40 mg PO DAILY Patient Comments: Depression/anxiety docusate sodium 100 mg capsule 100 mg PO DAILY Patient Comments: Stool softner [id number]-[id number]-mak-feth-boron 1 EACH tablet,chewable 1 ea PO DAILY fenofibrate nanocrystallized 145 MG tablet 72.5 mg PO QHS ipratropium-albuterol 0.5 mg-3 mg(2.5 mg base)/3 mL solution for nebulization 3 ml INHALATION BID Rx Instructions: Continue until re-evaluation per pulmonary with possible transition back to home regimen at that time. budesonide-formoterol 160-4.5 mcg/actuation HFA aerosol inhaler 2 puff INHALATION BID beclomethasone dipropionate 80 mcg/actuation HFA aerosol breath activated 1 inh inhalation BID furosemide 40 mg tablet 80 mg PO .BID MWF Rx Instructions: take on Friday, Friday, Friday cyanocobalamin (vitamin B-12) [Vitamin B-12] 100 mcg Tablet 100 mcg PO DAILY pregabalin 150 mg capsule 150 mg PO TID melatonin 10 mg Tablet 12 mg PO QHS dapagliflozin propanediol [Farxiga] 10 mg tablet 10 mg PO DAILY Ozempic 1 mg/dose (4 mg/3 mL) pen injector 1 mg subcut ECHEVARRIA tiotropium bromide 18 mcg capsule, w/inhalation device 18 mcg inhalation DAILY Rx Instructions: puncture 1 cap using device; one dose = 2 inhalations multivitamin [Daily Multi-Vitamin] Tablet 1 tab PO DAILY quercetin 500 mg capsule 500 mg PO DAILY rizatriptan [Maxalt] 10 mg tablet 10 mg PO Q2H PRN (Reason: migraine headache) Qty: 10 0RF Rx Instructions: do not exceed 3 doses per 24 hrs cholecalciferol (vitamin D3) [Vitamin D3] 125 mcg (5,000 unit) tablet 125 mcg PO DAILY azelastine-fluticasone 137-50 mcg/spray spray,non-aerosol 2 spray intranasal BID Rx Instructions: administer into each nostril sennosides [senna] 8.6 mg Tablet 17.2 mg PO BID Qty: 120 0RF Rx Instructions: OTC ondansetron 4 mg tablet,disintegrating 4 mg PO DAILY PRN (Reason: nausea) oxycodone-acetaminophen 5-325 mg tablet 1 tab PO BID sennosides-docusate sodium 8.6-50 mg tablet 2 tab-cap PO DAILY PRN (Reason: constipation) Acidophilus Tablet,Chewable 1 tab PO DAILY Patient Comments: 175 mg tab zinc 100 mg tablet 100 mg PO DAILY polyethylene glycol 3350 [ClearLax] 17 gram/dose powder 8.5 g PO QDAY PRN (Reason: constipation) tiotropium bromide [Spiriva Respimat] inhalation DAILY PRN (Reason: SOB) losartan 50 mg tablet 50 mg PO DAILY topiramate 50 mg Tablet 50 mg PO BID 30 Days Qty: 60 0RF omeprazole 40 mg capsule,delayed release(DR/EC) 40 mg PO DAILY 30 Days Qty: 0 0RF insulin glargine U-300 conc [Toujeo SoloStar U-300 Insulin] 300 unit/mL (1.5 mL) insulin pen 35 unit SUBCUT BID 30 Days Qty: 0 0RF Patient Comments: INJECT 50 UNITSESUBCUTANEOUSLY JUNIOR Rx Instructions: TOUJEO atorvastatin 40 mg Tablet 40 mg PO QHS 30 Days Qty: 30 0RF epinephrine 0.3 mg/0.3 mL auto-injector 0.3 mg IM X1 PRN (Reason: Anaphylaxis) Qty: 1 0RF diltiazem HCl [Cardizem CD] 120 mg capsule,extended release 24hr 120 mg PO .COMPLEX Patient Comments: as directed by doctor Rx Instructions: 120 mg orally daily PRN BP > 170 per PCP.; warfarin 10 mg tablet 7 mg PO QMWF PRN (Reason: Dr. Soria Manages.) Primary Care Provider: Ophelia Soria Referrals: Ophelia Soria, DO [Primary Care Provider] - Print Language: Greek Disposition Disposition: Acute Care Hospital [facility]
[2024-10-05 06:09] LABS: International Normalized Ratio 1.9
[2024-10-05 06:10] LABS: Partial Thromboplast Time 53.8 Seconds (24.1-36.2)
[2024-10-05 06:18] LABS: Anion Gap 7 (5-15); BUN 27 mg/dL (7-18); BUN/Creat Ratio 20.6 RATIO (10-20); Calcium,Total 8.7 mg/dL (8.5-10.1); Chloride 110 mmol/L (98-107); Creatinine, Serum 1.31 mg/dL (0.55-1.02); EST Glomerular Filtration Rate 43 mL/min (>60); Est Glom Filt Rate - Afr Amer 52 mL/min (>60); Estimated Creatinine Clearance 53.55 ml/min; Glucose 157 mg/dL (74-106); Potassium 3.7 mmol/L (3.5-5.1); Sodium Level 141 mmol/L (136-145); Troponin-I HS 94 pg/mL (3.0-54.0)
[2024-10-05] MEDS: 0.9% Normal Saline (1000mL) 1,000 ML 100 ML IV (06:30)
[2024-10-05] MEDS: MethylPREDNISolone 125 MG/2 ML Vial IV (06:30)
[2024-10-05] MEDS: Ipratropium/Albuterol Sulfate 3 ML AMPUL.NEB INHALATION ×5 (06:33→19:13)
[2024-10-05 06:53] LABS: AST(SGOT) 19 U/L (15-37); Alanine Aminotransfer ALT/SGPT 19 U/L (13-56); Albumin, Serum 3.1 g/dL (3.2-5.0); Alkaline Phosphatase 63 U/L (45-117); Bilirubin, Direct 0.14 mg/dL (0.00-0.30); Globulin 3.4 g/dL (2.2-4.2); Protein, Total 6.5 g/dL (6.4-8.2)
--- NOTE | 2024-10-05 07:23 | PCM.HP.STD ---
HPI - General General Date of Admission: 10/05/24 Date of Service: 10/05/24 Chief Complaint: Right sided body weakness. HPI Narrative NATHALIE HERMAN, is a 63 F who was brought to ED by EMS after she felt right-sided weakness after she woke up today morning for a breathing treatment and found her right side is weak both upper and lower extremities. Patient has shortness of breath, audible wheezing for 3 days with history of asthma and intubation about 5 years ago. She states she uses oxygen as needed. LKW was 2300 hrs. last night. As per EMS she was not able to speak correctly the phrase you cannot take a old dog new tricks. She was given DuoNeb by EMS. Glucose was 138. Bradycardia BP systolic 150s. In ED, stroke alert was called and patient was seen by [facility] stroke teleneurologist. She was found outside time window with NIH stroke scale 7. When I saw the patient patient complained of chest tightness and mild pressure on right side with difficulty in breathing and wheezing. No fever. She also has history of migraine and complained of mild headache for last [address] head does not show acute intracranial hemorrhage. CTA head does not show LVO but less than 50% ICA stenosis bilaterally. Patient is further admitted to monitored bed PCU [facility] Medical History Obesity (BMI 30-39.9) Subtherapeutic international normalized ratio (INR) Migraine headache Rectal bleeding Peripheral neuropathy Positive FIT (fecal immunochemical test) History of transcatheter aortic valve replacement (TAVR) (~04/19/21) COVID-19 Depression Anxiety Discoloration of skin History of steroid therapy Insulin dependent diabetes mellitus Diabetes Arthritis High cholesterol Pulmonary embolism Easy bruising Excessive bleeding Restless legs Back pain TIA (transient ischemic attack) Non-smoker BiPAP (biphasic positive airway pressure) dependence On home oxygen therapy Shortness of breath on exertion Leg cramps History of pain when walking History of edema History of stress test Hx of transesophageal echocardiography (YOLANDA) for monitoring History of echocardiogram Cardiology follow-up encounter Rotator cuff arthropathy of right shoulder History of DVT (deep vein thrombosis) Back pain with sciatica Nonrheumatic aortic (valve) stenosis Essential hypertension Carotid artery disease Atherosclerotic heart disease of [place] coronary artery without angina pectoris Personal history of anaphylaxis Bilateral carotid bruits Body mass index 45.0-49.9, adult Diastolic heart failure COPD (chronic obstructive pulmonary disease) CHELSEY treated with BiPAP History of pulmonary embolism Morbid obesity Type 2 diabetes mellitus Asthma Home Medications ?Medication ?Instructions ?Recorded ?Last Taken ?Type fluoxetine 20 mg capsule 40 mg PO DAILY anxiety 01/26/14 04/05/21 History calcium 600 mg-D3 800 unit-mag 40 1 ea PO DAILY vitamins 05/27/16 04/05/21 History cw-ouhv-owdh-angel-boron chew tablet fenofibrate nanocrystallized 145 72.5 mg PO QHS cholesterol 04/26/19 04/04/21 History mg tablet trazodone 50 mg tablet 50 mg PO QHS sleep 08/09/19 04/04/21 History epinephrine 0.3 mg/0.3 mL 0.3 mg (0.3 mL) IM X1 PRN 01/18/20 Unknown Rx injection, auto-injector Anaphylaxis #1 ea albuterol sulfate 2.5 mg/3 mL 2.5 mg (3 mL) inhalation Q2H PRN 04/24/20 07/02/21 09:00 Rx (0.083 %) solution for nebulization PRN dyspnea, wheezing #180 mL albuterol sulfate 90 mcg/actuation 2 inh inhalation Q4H PRN PRN Sob 04/24/20 04/29/22 Rx aerosol inhaler &/Or Wheezing #18 grams montelukast 10 mg tablet 10 mg PO DAILY allergies/asthma 12/07/20 04/05/21 Rx #30 tabs alendronate 70 mg tablet 70 mg PO WE bone health 12/21/20 08/07/22 History nystatin 100,000 unit/gram topical 1 applic topical BID PRN PRN YEAST 12/21/20 04/05/21 History powder beclomethasone dipropionate 80 1 inh inhalation BID Asthma 03/22/21 07/02/21 09:00 History mcg/actuation HFA breath activated aerosol budesonide-formoterol HFA 160 2 puff inhalation BID asthma 03/22/21 04/29/22 History mcg-4.5 mcg/actuation aerosol inhaler ipratropium 0.5 mg-albuterol 3 mg 3 ml inhalation BID asthma 03/22/21 04/05/21 History (2.5 mg base)/3 mL nebulization soln cyanocobalamin (vitamin B-12) 100 100 mcg PO DAILY supplement 04/05/21 04/05/21 History mcg tablet (Vitamin B-12) melatonin 10 mg tablet 12 mg PO QHS sleep 04/05/21 04/04/21 History pregabalin 150 mg capsule 150 mg PO TID nerve pain 04/05/21 08/11/22 History meclizine 25 mg tablet 25 mg PO DAILY PRN Vertigo 05/04/21 Unknown History docusate sodium 100 mg capsule 100 mg PO DAILY stool softener 08/17/21 Unknown History magnesium 250 mg tablet 400 mg PO DAILY supplement 08/17/21 Unknown History ascorbate calcium (vitamin C) 500 1 g PO DAILY vitamin 11/07/21 09/29/23 History mg tablet chromium picolinate 200 mcg tablet 200 mcg PO DAILY supplement 11/07/21 Unknown History clobetasol 0.05 % topical cream 1 applic topical PRN PRN 11/07/21 Unknown History RASH/ITCHING levocetirizine 5 mg tablet 5 mg PO DAILY allergies 11/07/21 Unknown History dapagliflozin propanediol 10 mg 10 mg PO DAILY diabetes 08/11/22 08/11/22 History tablet (Farxiga) multivitamin (Daily Multi-Vitamin 1 tab PO DAILY vag itching 06/12/23 Unknown History tablet) quercetin 500 mg capsule 500 mg PO DAILY supplement 06/12/23 Unknown History semaglutide 1 mg/dose (4 mg/3 mL) 1 mg subcut ECHEVARRIA diabetes 06/12/23 Unknown History subcutaneous pen injector (Ozempic) tiotropium bromide 18 mcg capsule 18 mcg inhalation DAILY asthma 06/12/23 Unknown History with inhalation device rizatriptan 10 mg tablet (Maxalt) 10 mg PO Q2H PRN migraine headache 06/13/23 Unknown Rx #10 tabs azelastine 137 mcg-fluticasone 50 2 spray intranasal BID allergy 08/25/23 Unknown History mcg/spray nasal spray cholecalciferol (vitamin D3) 125 125 mcg PO DAILY vitamin-self care 08/25/23 Unknown History mcg (5,000 unit) tablet (Vitamin D3) sennosides 8.6 mg tablet (senna) 17.2 mg (2 x 8.6 mg) PO BID stool 09/03/23 Unknown Rx softner #120 tabs Lactobacillus acidophilus 1 tab PO DAILY Supplement 09/29/23 Unknown History (Acidophilus chewable tablet) ondansetron 4 mg disintegrating 4 mg PO DAILY PRN nausea 09/29/23 Unknown History tablet oxycodone-acetaminophen 5 mg-325 1 tab PO BID pain 09/29/23 Unknown History mg tablet sennosides 8.6 mg-docusate sodium 2 tab-cap PO DAILY PRN constipation 09/29/23 Unknown History 50 mg tablet zinc 100 mg tablet 100 mg PO DAILY supplement 09/29/23 Unknown History diltiazem HCl 120 mg 120 mg PO .COMPLEX high blood 02/02/24 Unknown History capsule,extended release 24 hr pressure (Cardizem CD) diltiazem HCl 240 mg 240 mg PO QDAY 02/16/24 Unknown History capsule,extended release 24 hr spironolactone 50 mg tablet 50 mg PO DAILY #30 tabs 02/16/24 Unknown Rx methocarbamol 500 mg tablet 500 mg PO .COMPLEX PRN ASK PCP 08/17/24 Unknown History polyethylene glycol 3350 17 gram 17 g PO QDAY self care 08/17/24 Unknown History oral powder packet losartan 50 mg tablet 50 mg PO DAILY 09/15/24 Unknown History polyethylene glycol 3350 17 8.5 g PO QDAY PRN constipation 09/15/24 Unknown History gram/dose oral powder (ClearLax) tiotropium bromide inhalation DAILY PRN SOB 09/15/24 Unknown History atorvastatin 40 mg tablet 40 mg PO QHS 30 days #30 tabs 09/17/24 Unknown Rx insulin glargine U-300 conc 300 35 unit (0.1167 mL) subcut BID 09/17/24 Unknown Rx unit/mL (1.5 mL) subcutaneous pen DIABETES 30 days #0 mL (Toujeo SoloStar U-300 Insulin) omeprazole 40 mg capsule,delayed 40 mg PO DAILY gerd 30 days #0 caps 09/17/24 Unknown Rx release topiramate 50 mg tablet 50 mg PO BID 30 days #60 tabs 09/17/24 Unknown Rx furosemide 40 mg tablet 80 mg PO .BID MWF diuresis 09/27/24 Unknown History warfarin 10 mg tablet 7 [address] PO Q[address]WF PRN Dr[address] Soria 09/27/24 Unknown History Manages. warfarin 2 mg tablet 3 mg PO .QSUTUTHSA 09/27/24 Unknown History Allergy/AdvReac Type Severity Reaction Status Date / Time clindamycin Allergy Rash Verified 10/05/24 05:52 erythromycin base Allergy Rash Verified 10/05/24 05:52 (Erythromycin Base) omalizumab (From Xolair) Allergy Chest Verified 10/05/24 05:52 tightness Penicillins Allergy Rash Verified 10/05/24 05:52 sulfamethoxazole (From Allergy Chest Verified 10/05/24 05:52 Bactrim) tightness trimethoprim (From Bactrim) Allergy Chest Verified 10/05/24 05:52 tightness Sulfa (Sulfonamide AdvReac Unknown Unknown Verified 10/05/24 05:52 Antibiotics) Family History Father Heart disease Diabetes CAD (coronary artery disease) Mother CAD (coronary artery disease) CVA (cerebral vascular accident) Diabetes Brother CAD (coronary artery disease) CVA (cerebral vascular accident) Diabetes Unknown Cancer Grandmother CVA (cerebral vascular accident) Diabetes Grandfather CVA (cerebral vascular accident) Grandmother Myocardial infarction Brother Diabetes Sister Diabetes Surgical History History of laminectomy History of colonoscopy History of cardiac catheterization Aortic valve replaced History of left heart catheterization (LHC) (~01/19/21) H/O lumbosacral spine surgery History of rotator cuff surgery Hx of appendectomy History of hernia repair History of section History of neck surgery Social History household members: spouse housing: apartment pets and animals: Yes Smoking Status: Never smoker second hand exposure: No alcohol intake: current alcohol intake frequency: a few times a week substance use type: does not use caffeine: No what type of physical activity do you participate in: none do you feel safe at home: Yes ROS ROS Narrative 14 system ROS is incomplete because patient is short of breath with wheezing Constitutional: Reports fatigue and weakness. No fever. HEENT: Reports systems reviewed and no addt'l complaints, except as documented Respiratory/Chest: Short of breath, shallow breathing wheezing. Chest tightness CVS: Chest pressure but not a generic quality Gastrointestinal: Chronic constipation. Denies coffee ground emesis, hematemesis or vomiting Genitourinary: Denies burning urination or new urinary tract symptoms Musculoskeletal: Denies acute joint pain or limited range of motion. No acute injury Neurologic: Denies seizure-like symptoms. Rest as described in HPI skin: No ulcer. No rash Endocrinology: Reports systems reviewed and no addt'l complaints, except as documented Hematologic/Lymphatic: Reports systems reviewed and no addt'l complaints, except as documented Rest 14 ROS are negative except as mentioned in HPI Vital Signs Vital Signs Vital Signs: 10/05/24 05:52 10/05/24 05:53 10/05/24 06:02 Temperature 98.0 F Temperature Source Oral Pulse Rate 44 L 48 L Respiratory Rate 20 H 20 H Respiratory Pattern Blood Pressure 151/94 H 143/47 H Blood Pressure Mean 113 79 Pulse Ox 92 95 Oxygen Delivery Method Nasal Cannula Nasal Cannula Oxygen Flow Rate (L/min) 4 4 10/05/24 06:13 10/05/24 06:22 10/05/24 06:23 Temperature Temperature Source Pulse Rate 45 L 44 L Respiratory Rate 20 H 22 H Respiratory Pattern Tachypnea Blood Pressure 149/45 H Blood Pressure Mean 79 Pulse Ox 93 Oxygen Delivery Method Nasal Cannula Nasal Cannula Oxygen Flow Rate (L/min) 4 4 10/05/24 06:30 10/05/24 06:51 10/05/24 07:00 Temperature Temperature Source Pulse Rate 45 L 46 L 46 L Respiratory Rate 20 H 20 H 20 H Respiratory Pattern Blood Pressure 143/47 H 148/45 H 148/45 H Blood Pressure Mean 79 79 79 Pulse Ox 91 92 92 Oxygen Delivery Method Nasal Cannula Nasal Cannula Nasal Cannula Oxygen Flow Rate (L/min) 4 4 4 10/05/24 07:00 Temperature Temperature Source Pulse Rate 46 L Respiratory Rate 20 H Respiratory Pattern Blood Pressure 148/45 H Blood Pressure Mean 79 Pulse Ox 20 Oxygen Delivery Method Room Air Oxygen Flow Rate (L/min) Weight Weight: 250 lb Body Mass Index (BMI) 42.9 Physical Exam Narrative General: Alert, Oriented x3, Cooperative. Morbid obesity BMI 43.8 kg/m? HEENT: Atraumatic, PERRLA, EOMI, Normocephalic Oral: No Gingival or Mucosal Lesions/ Ulcerations Neck: Supple, No JVD, Negative Carotid Bruits Chest wall/Lungs: Air entry severely diminished in both lungs. Bilateral gross wheezing and rhonchi. Shallow breathing, tachypnea on 4 L of oxygen Cardiovascular: Regular rate, Regular Rhythm, Normal S1, Normal S2, No M/G/R Abdomen: Bowel Sounds Present, Soft, Non Tender, Non-Distended : No dysuria. No renal angle tenderness. No suprapubic tenderness. Extremities: No edema, Capillary Refill Less than 3 Seconds Skin: No rashes, No breakdown Musculoskeletal: Right-sided upper and lower extremities, weakness, 3/5. No Tenderness to Palpation of Joints or Extremities Neurological: Decreased sensation in right upper and lower extremity. Mild dysarthria. No language deficit. No facial nerve palsy Cranial nerves II-XII grossly intact, DTR 2+/4. No acute focal neurological deficit. Psych/Mental Status: Flat affect Results Lab / Micro Data 10/05/24 05:50 10/05/24 05:50 Labs: Laboratory Results - last 24 hr 10/05/24 05:50: WBC 9.0, RBC 4.49, Hgb 13.2, Hct 39.9, MCV 88.9, MCH 29.4, MCHC 33.1, RDW Std Deviation 52.3 H, RDW Coeff of Carmenc[place] 16.3 H, Plt Count 200, MPV 11.1, Immature Gran % (Auto) 0.600, Neut % (Auto) 60.8, Lymph % (Auto) 24.1, [place] % (Auto) 13.0 H, Eos % (Auto) 0.9, Baso % (Auto) 0.6, Absolute Neuts (auto) 5.5, Absolute Lymphs (auto) 2.16, Nucleated RBC % 0, PT 22.0 H, INR 1.9, APTT 53.8 H, Sodium 141, Potassium 3.7, Chloride 110 H, Carbon Dioxide 24.0, Anion Gap 7, BUN 27 H, Creatinine 1.31 H, Estim Creat Clear Calc 53.55, Est GFR (MDRD) Af Amer 52 L, Est GFR (MDRD) Non-Af 43 L, BUN/Creatinine Ratio 20.6 H, Glucose 157 H, Calcium 8.7, Total Bilirubin 0.40, Direct Bilirubin 0.14, AST 19, ALT 19, Alkaline Phosphatase 63, Troponin I High Sens 94 H, Total Protein 6.5, Albumin 3.1 L, Globulin 3.4 Imaging Radiology Impression Brain CT 10/05/24 05:53 IMPRESSION: Age-related changes as above, without evidence of acute intracranial hemorrhage in this noncontrast head CT. Stroke protocol head CT results discussed with Dr. Acevedo at 0606 hours eastern time 10/05/2024. N.B. : The above Results were Read Back by Francesco Dahl MD to Juan Acevedo DO, and understanding confirmed on 10/05/2024 06:10:08 (ET). Electronically Signed: Francesco Dahl MD at 6:11 EST , ADDENDUM: 10/05/24 0618 IMPRESSION: Age-related changes as above, without evidence of acute intracranial hemorrhage in this noncontrast head CT. Stroke protocol head CT results discussed with Dr. Acevedo at 0606 hours eastern time 10/05/2024. N.B. : The above Results were Read Back by Francesco Dahl MD to Juan Acevedo DO, and understanding confirmed on 10/05/2024 06:10:08 (ET). Electronically Signed: Francesco Dahl MD at 6:11 EST , Head/Neck CTA 10/05/24 05:54 IMPRESSION: 1. No large vessel occlusion or other acute arterial abnormalities identified on this CTA head/neck exam. 2. Mild, less than 50% stenosis of the proximal internal carotid arteries bilaterally. 3. Moderate stenosis in the cavernous sinus segment of the internal carotid arteries bilaterally. 4. Small bilateral pleural effusions are incidentally noted as well as mild pulmonary edema. N.B. : The above Results were Read Back by Aly Beck MD to Juan Acevedo DO, and understanding confirmed on 10/05/2024 06:51:16 (ET). Electronically Signed: Aly Beck MD at 6:52 EST , ADDENDUM: 10/05/24 0659 IMPRESSION: 1. No large vessel occlusion or other acute arterial abnormalities identified on this CTA head/neck exam. 2. Mild, less than 50% stenosis of the proximal internal carotid arteries bilaterally. 3. Moderate stenosis in the cavernous sinus segment of the internal carotid arteries bilaterally. 4. Small bilateral pleural effusions are incidentally noted as well as mild pulmonary edema. N.B. : The above Results were Read Back by Aly Beck MD to Juan Acevedo DO, and understanding confirmed on 10/05/2024 06:51:16 (ET). Electronically Signed: Aly Beck MD at 6:52 EST , Assessment & Plan Assessment/Plan (1) Acute CVA (cerebrovascular accident): (2) Acute on chronic hypoxic respiratory failure: PLAN: Plan This 63 old female came to ED for sudden onset of right-sided weakness with shortness of breath and wheezing for 3 days 1. Acute hypoxic respiratory failure secondary to acute on chronic HFpEF due to valvular disease/pulmonary edema and possible asthma exacerbation: Patient is being admitted in PCU. ABG 7.35/37.6/74 on 2 L of oxygen and she is on as needed home oxygen. She also uses CPAP at home at night. Patient is still has significant respiratory distress therefore Airvo ordered. Patient is being managed on scheduled bronchodilator, IV Solu-Medrol, Mucinex, incentive spirometry and Pep. Chest x-ray initially reviewed shows central pulmonary vascular congestion, diffuse pulmonary edema and small pleural effusion. Triple PCR for SARS-CoV-2, flu and RSV are negative BNP pending 2. Right-sided weakness, possible complicated migraine: Patient was last admitted on 09/15/2024 for 2 days for similar symptoms of right-sided weakness slurred speech and numbness and was found to have complicated migraine. CT head and CTA head and neck at that time MRI brain was negative for acute stroke. Will repeat the MRI brain. She already had echo during that admission which showed severe aortic stenosis, 3+ AI. Moderate mitral valve stenosis. EF 70%, no Doppler evidence of ASD. She recently had full workup for right-sided weakness including TSH normal,FLP shows triglyceride hide 327, VLDL high. HDL low. Atorvastatin dose was increased. 3. Mild headache with history of chronic migraine headache:on Aimovig sq. monthly and prn rizatriptan 3. History of DVT/PE (2009) after neck surgery: INR 1.9. On warfarin 10 mg daily 4. Obesity; with BMI of 43.8 kg per square this admission and CHELSEY; on BiPAP Weight loss recommended. 5. History of asthma/COPD with chronic hypoxic respiratory failure; on home oxygen 2L NC 6. DM-2; of unknown control on dapagliflozin, semaglutide 8 diabetic neuropathy; on gabapentin - ADA diet. Accu-Chek before meals and at bedtime with Humalog sliding scale coverage and hypoglycemia protocol. Decrease insulin glargine to 30 units BID to minimize risk of hypoglycemia. A1c was 6.5 on 09/15/2020 7. Essential hypertension; on diltiazem, furosemide, losartan and spironolactone -maintain stroke guidelines for BP management hold scheduled antihypertensives until CVA definitively ruled out on MRI. 8. Hyperlipidemia; on pitavastatin and fenofibrate - 09/16: FLP shows triglyceride hide 327, VLDL high. HDL low. Atorvastatin dose increased 9. RLS; with leg cramps on prn tizanidine and prn cyclobenzaprine - Continue current regimen. 10. Multiple cardiac comorbidities including CAD, chronic HFpEF, severe aortic stenosis status post TAVR 2020 with postop DVT. History of bilateral carotid bruits 11. Osteoporosis, osteoarthritis with sciatica status postlaminectomy in 2019 DVT prophylaxis -on warfarin Living will/advanced directive/end of life care: Patient does not have living will or advanced directive. Her and daughter is power of insurance defense attorney for health after discussion of benefits/risks procedures involved with full code, DNR CC arrest and DNR CC, the patient opted for full code. Patient does want artificial life support including intubation, tube feed, ventilator and/chest compression, central venous catheter, vasopressor and DC shock if needed Total time spent in [id number] encounter in discussion of advanced directive 17 minutes. Microbiology Past 72 Hours 10/05/24 06:40 Mucosa - Nose SARS-CoV-2, Influenza & RSV (PCR) - Final Laboratory Results 10/05/24 05:50: WBC 9.0, RBC 4.49, Hgb 13.2, Hct 39.9, MCV 88.9, MCH 29.4, MCHC 33.1, RDW Std Deviation 52.3 H, RDW Coeff of [place] 16.3 H, Plt Count 200, MPV 11.1, Immature Gran % (Auto) 0.600, Neut % (Auto) 60.8, Lymph % (Auto) 24.1, [place] % (Auto) 13.0 H, Eos % (Auto) 0.9, Baso % (Auto) 0.6, Absolute Neuts (auto) 5.5, Absolute Lymphs (auto) 2.16, Nucleated RBC % 0, PT 22.0 H, INR 1.9, APTT 53.8 H, Sodium 141, Potassium 3.7, Chloride 110 H, Carbon Dioxide 24.0, Anion Gap 7, BUN 27 H, Creatinine 1.31 H, Estim Creat Clear Calc 53.55, Est GFR (MDRD) Af Amer 52 L, Est GFR (MDRD) Non-Af 43 L, BUN/Creatinine Ratio 20.6 H, Glucose 157 H, Calcium 8.7, Total Bilirubin 0.40, Direct Bilirubin 0.14, AST 19, ALT 19, Alkaline Phosphatase 63, Troponin I High Sens 94 H, B-Natriuretic Peptide Pending, Total Protein 6.5, Albumin 3.1 L, Globulin 3.4 10/05/24 07:25: Specimen Type ART, Sample Site R Radial, pH 7.35, Bicarbonate Actual 20.8 L, Total CO2 22, Base Excess -5 L, O2 Saturation 94 L, O2 % 2.0, ABG pCO2 37.6, ABG pO2 74 L, Riccardo Test Positive, O2 Delivery Device Cannula, Vent Mode Not entered 10/05/24 07:38: Troponin I High Sens Pending Charges/Coding Visit Charges Inpatient E&M: 37401 Init Hosp L3 Procedures Hospitalists Procedures: 42887 Advncd Care Plan 30 Min
[2024-10-05 07:28] LABS: Allen Test Positive; Base Excess -5 mmol/L (-2 to +2); Bicarbonate 20.8 mmol/L (22-26); Blood Gas Specimen Type ART; Mode Not entered; O2 Delivery Device Cannula; PO2 74 mmHG (75-100); SITE R Radial; SO2 94 % (95-99); Total Carbon Dioxide 22 mmol/L; pCO2 37.6 mmHg (35-45); pH 7.35 (7.35-7.45)
[2024-10-05 08:01] LABS: Troponin-I HS 94 pg/mL (3.0-54.0)
--- NOTE | 2024-10-05 09:17 | MRI_ITS ---
STUDY: MRI BRAIN WITHOUT CONTRAST REASON FOR EXAM: Female, 63 years old. SUSPECTED STROKE, rt sided weakness TECHNIQUE: Standardized multiplanar fat and water weighted pulse sequences were obtained. COMPARISON: 09/16/2024 FINDINGS: There is mild cerebral atrophy with widening of the extra-axial spaces and ventricular dilatation. There are a limited number of small white matter hyperintensities, distributed throughout the deep white matter tracts of the cerebral hemispheres, consistent with mild chronic white matter ischemic changes. There is no evidence for recent intracranial ischemia or other cause of cytotoxic edema on diffusion weighted imaging (DWI). Normal T2* images of the brain without demonstrated susceptibility artifact. There is no demonstrated hemosiderin stain. Normal bilateral basal ganglia. Normal thalami. There is no extra-axial fluid accumulation. Normal flow voids within the major intracranial circulation suggesting patency by spin echo criteria. Normal sella turcica, pituitary gland, infundibular stalk, optic chiasm and hypothalamus. Normal tectal plate and pineal gland. Normal midbrain, martha and medulla. Normal cerebellum. Normal basal cisterns. Normal bilateral temporal bones. Normal bilateral internal auditory canals. There are bilateral ocular lens implants with otherwise normal intraorbital contents. Normal visualized paranasal sinuses. Normal calvarium and skull base. Normal visualized soft tissue structures. Normal visualized upper cervical spine. MRI/Brain without Contrast IMPRESSION: Involutional changes of the brain, as described above. No acute infarct. Electronically Signed: Luis Alexis MD at 11:23 EST ,
--- NOTE | 2024-10-05 09:29 | ECHOL_ITS ---
Reason For Study: Flash Pulm Edema Procedure This was a limited 2D transthoracic echocardiogram. Exam performed portable in patient room. Left Ventricle Normal LV size. Left ventricular systolic function is normal. The left ventricular ejection fraction is 60 %. Right Ventricle Normal RV size. Normal systolic function. Atria Normal left atrium. Normal right atrium. Mitral Valve There is moderate mitral annular calcification. Mild-Moderate (1-2+) eccentric mitral valve insufficiency. Aortic Valve Peak aortic valve gradient 122 mmHg. Mean aortic valve gradient 68 mmHg. Moderate (2+) eccentric aortic valve insufficiency. Bioprosthetic aortic valve. Severe bioprosthethc valve stenosis. Pericardium/Pleural No pericardial effusion. MMode/2D Measurements & Calculations LVIDd: 5.0 cm IVSd: 1.4 cm LVOT diam: 2.0 cm LVIDs: 2.8 cm LVPWd: 1.0 cm FS: 43.8 % LVOT area: 3.1 cm2 Doppler Measurements & Calculations MV V2 max: 260.8 cm/sec Ao V2 max: 553.0 cm/sec AI max juan carlos: 393.5 cm/sec MV max P.2 mmHg Ao max P.4 mmHg AI max P.9 mmHg MV V2 mean: 81.4 cm/sec Ao V2 mean: 389.3 cm/sec AI dec slope: 300.7 cm/sec2 MV mean P.8 mmHg Ao mean P.5 mmHg AI P1/2t: 383.2 msec MV V2 VTI: 65.9 cm Ao V2 VTI: 144.7 cm MVA(VTI): 1.8 cm2 AV (velocity ratio): 0.26 FELICIANO(I,D): 0.81 cm2 FELICIANO(V,D): 0.76 cm2 LV V1 max: 134.0 cm/sec SV(LVOT): 117.0 ml TR max juan carlos: 249.6 cm/sec LV V1 max P.2 mmHg TR max P.9 mmHg LV V1 mean P.9 mmHg LV V1 mean: 93.9 cm/sec LV V1 VTI: 37.4 cm ECHO/Echo, Limited Study Interpretation Summary Normal LV size. Left ventricular systolic function is normal. The left ventricular ejection fraction is 60 %. Mean aortic valve gradient 68 mmHg. Severe bioprosthethc valve stenosis Moderate (2+) eccentric aortic valve insufficiency. Ordering Physician: Ramiro Carey Referring Physician: Ophelia Soria Performed By: Anjelica Soriano, RDCS, RVT
[2024-10-05] MEDS: Furosemide 40 MG/4 ML Vial IV (12:34)
[2024-10-05] MEDS: Insulin Lispro 100 UNIT/ML INSULN.PEN SC ×3 (12:35→21:53)
[2024-10-05] MEDS: dilTIAZem CD 240 MG Capsule PO (12:36)
[2024-10-05] MEDS: Loratadine 10 MG Tablet PO (12:36)
[2024-10-05] MEDS: Empagliflozin 25 MG Tablet PO (12:37)
[2024-10-05] MEDS: Magnesium Chloride 64 MG Delay Rel.Tablet 128 MG PO (12:37)
[2024-10-05] MEDS: Insulin Glargine-YFGN 100 UNIT/ML Pen 30 UNIT SC ×2 (12:37→21:52)
[2024-10-05] MEDS: Fluoxetine HCl 40 MG CAPSULE PO (12:38)
[2024-10-05] MEDS: guaiFENesin 1,200 MG Tablet 1200 MG PO ×2 (12:38→21:56)
[2024-10-05] MEDS: Pantoprazole Sodium 40 MG Tablet PO (12:38)
[2024-10-05] MEDS: Montelukast 10 MG Tablet PO (12:38)
[2024-10-05] MEDS: Ascorbic Acid 500 MG Tablet 1000 MG PO (12:38)
[2024-10-05] MEDS: Senna/Docusate Sodium 1 Tablet 2 TABLET PO ×2 (12:38→21:56)
[2024-10-05] MEDS: Topiramate 50 MG Tablet PO ×2 (12:39→21:58)
[2024-10-05] MEDS: Polyethylene Glycol 3350 17 GM PACKET PO (12:39)
[2024-10-05] MEDS: Cholecalciferol (Vit D3) 125 MCG CAPSULE (5,000 UNITS) PO (12:39)
[2024-10-05 12:48] LABS: Bedside Glucose 225 mg/dL (74-106)
[2024-10-05 12:58] LABS: Troponin-I HS 75 pg/mL (3.0-54.0)
[2024-10-05] MEDS: Pregabalin 75 MG Capsule 150 MG PO ×2 (13:53→22:00)
--- NOTE | 2024-10-05 14:18 | CASEMGMT ---
RN VADIM Assessment Face to Face with patient for initial transition planning/care coordination assessment. RN CM introduced self and role at [facility], pt voices understanding. Pt is A&Ox4 and is resting comfortably in bed and is calm. Care providers, pharmacy, and demographics verified. Admitting dx: Stroke Alert LACE Strata: 2 PCP: Yang Specialists: CATIE (Cardio), Noel (Dermatology), [facility], Lionel (ENT), Garett (-Ortho) Preferred Pharmacy: [facility] Insurance: MyCare CareSource, DINA/CareSource Prescription Benefit: Yes LNOK: Alirio (H), Alicia Cheng (Daughter) Living Arrangements: Pt lives with her in a single story apartment with a flat entrance ADLs/IADLs: Pt requires assistance and states that she has support through her friend as well as her 's private advisor. Pt states that she used to attend [employer] but states that she had spinal surgery in May (2023) and has not gone back since. Transportation: [facility] Van, [place] at times, Friend DME: Home oxygen through [facility]. TC to [facility] and they state that the staff needed to verify the pt current Rx are out of office until , due to [place]. Pt states that she wears 2L HS only through her BiPAP. Pt has a concentrator but not portability. Pt states that she lost her previous pulse ox, but can afford a new one. Pt also has a nebulizer, BGM with sufficient supplies, BP Machine, rollator, FWW, shower chair, cane, and medical alert system Direction Home: Pt CM is Yessica Mtz ([phone]). TC to the at this time. Yessica BAIG states that she is out of office until Friday, due to Sonya. However, pt states that she is active with [facility] and has 7 meals delivered per week. HHC/SNF: Hx at [facility]. Hx with [facility]. Pt is active with [facility] for OP therapy Pt?s goal: Return to PLOF Plan: TBD. Anticipate SNF vs Home with HH vs Home with continuation of OP Therapy. Follow for oxygen needs. Pt states, If I can walk then I would like to go home. If not, I would need to go to the [facility] again. If pt were to go home, pt states that she would prefer to continue OP therapy rather than getting HH established. Pt states, Last time they couldn't get an accepting HHC agency, and I would rather do OP Therapy anyway. This RN CM educated that we can see how the pt does with therapy and follow her progression throughout her hospital stay. Pt agrees. There is no 6-Click score entered at this time. PT and OT are ordered and the evaluations are pending. Pt denies further questions or concerns at this time. Report given to DRIVER GUARD CM. Ariana Beasley RN, CM
--- NOTE | 2024-10-05 15:47 | PN.HOSP_ITS ---
Hospitalist Note Because of flash pulmonary edema, limited echo was done. EF 60%. Severe bioprosthetic valve stenosis, mean AV gradient 68 mmHg, moderate 2+ eccentric AI. 1-2+ eccentric MR. Previous echo on 09/15 was also moderately severe 3+ AI, severe aortic stenosis. Based on the clinical findings of severe shortness of breath, flash pulmonary edema discussed with the puddler helper Dr. Lion. Recommended transfer to [facility] where the patient had bioprosthetic TAVR [place] [address] Tom Bauman. Patient was last seen in cardiology office by Dr. Maxwell Hall 09/05. I talked to puddler helper Dr. Fam in [facility] and the septic the patient. Currently patient is on 3 L of oxygen feeling slightly better and was taken off from BiPAP about 9 to 10 AM. On Lasix 40 mg IV twice daily. If clinical status changes, or patient goes back on BiPAP, cardiology transfer center needs to be updated on phone #[phone]
--- NOTE | 2024-10-05 16:14 | CHAPLAIN ---
Type of Pastoral Visit ___ Initial Visit ___ Follow-up Visit ___ On-call Visit ___ General Patient Visit ___ Spiritual Assessment ___ Family Conference ___ Bereavement ___ Rapid Response ___ Code Blue ___ Other (describe below) Pastoral Care Referral From ___ Patient ___ Family ___ Nurse ___ Physician ___ Director Of Business Applications ___ Heel Nailing Machine Operator ___ Other (describe below) Sacrament/Intervention ___ Active listening ___ Anointing ___ Jain ___ Bereavement ___ Communion ___ Cathi exploration ___ ___ Life review ___ Prayer ___ Reconciliation ___ Sacrament of Sick ___ Supportive presence ___ Wedding ___ Other (describe below) Pastoral Comments the patient had visitors in the room at time of the attempted visit
[2024-10-05] MEDS: Losartan Potassium 50 MG Tablet PO (17:15)
[2024-10-05] MEDS: Spironolactone 50 MG Tablet PO (17:18)
[2024-10-05 17:37] LABS: Bedside Glucose 198 mg/dL (74-106)
[2024-10-05] MEDS: Fluticasone 0.05% 1 SPRAY NASAL.SRY NASAL (21:54)
[2024-10-05] MEDS: Atorvastatin Calcium 80 MG Tablet PO (21:57)
--- NOTE | 2024-10-05 22:21 | CPS ---
Patient requested bipap use due to feeling SOB, this STOCK SELECTOR place bipap on patient
[2024-10-06 00:42] LABS: Bedside Glucose 245 mg/dL (74-106)
--- NOTE | 2024-10-06 07:41 | DS.PCM_ITS ---
Providers Date of Admission: 10/05/24 Date of Discharge: 10/05/24 Primary Care Physician: Dr. Ophelia Soria, DO Consultations 10/05/24 09:14 Consult: Tele-Neurology Routine Consulting Provider: [facility] Reason for Consult: Acute Ischemic Stroke/TIA EMERGENT Consult: No MD Notified: Yes Date Notified: 10/05/24 Time Notified: 09:14 Method of Notification: ED Physician Initiated Nursing Unit Staff Notify [facility] of Tele-Neurology Consult: Yes Reason For Visit: STROKE ALERT Diagnosis Discharge Diagnosis (1) Acute CVA (cerebrovascular accident): Status: Acute Code(s): I63.9 - Cerebral infarction, unspecified (2) Acute on chronic hypoxic respiratory failure: Status: Chronic Code(s): J96.21 - Acute and chronic respiratory failure with hypoxia Plan This 63 old female came to ED for sudden onset of right-sided weakness with shortness of breath and wheezing for 3 days 1. Acute hypoxic respiratory failure secondary to acute on chronic HFpEF due to valvular disease/pulmonary edema and possible asthma exacerbation: Patient is being admitted in PCU. ABG 7.35/37.6/74 on 2 L of oxygen and she is on as needed home oxygen. She also uses CPAP at home at night. Patient is still has significant respiratory distress therefore Airvo ordered. Patient is being managed on scheduled bronchodilator, IV Solu-Medrol, Mucinex, incentive spirometry and Pep. Chest x-ray initially reviewed shows central pulmonary vascular congestion, diffuse pulmonary edema and small pleural effusion. Triple PCR for SARS-CoV-2, flu and RSV are negative. BNP 1141 10/06: Limited echo was done.EF 60%. Severe bioprosthetic valve stenosis, mean AV gradient 68 mmHg, moderate 2+ eccentric AI. 1-2+ eccentric MR. Previous echo on 09/15 was also moderately severe 3+ AI, severe aortic stenosis. Based on the clinical findings of severe shortness of breath, flash pulmonary edema discussed with the tool salvage worker Dr. Hernandez. Recommended transfer to [facility] where the patient had bioprosthetic TAVR [place] [address] Tom Bauman. Patient was last seen in cardiology office by Dr. Maxwell Hall 09/05. I talked to tool salvage worker Dr. Fam in [facility] and the septic the patient. Currently patient is on 3 L of oxygen feeling slightly better and was taken off from BiPAP about 9 to 10 AM. On Lasix 40 mg IV twice daily. The patient finally was transferred to [facility] at night, on 10/05/2024 probably after 10 PM. 2. Right-sided weakness, possible complicated migraine: Patient was last admitted on 09/15/2024 for 2 days for similar symptoms of right-sided weakness slurred speech and numbness and was found to have complicated migraine. CT head and CTA head and neck at that time MRI brain was negative for acute stroke. Will repeat the MRI brain. She already had echo during that admission which showed severe aortic stenosis, 3+ AI. Moderate mitral valve stenosis. EF 70%, no Doppler evidence of ASD. She recently had full workup for right-sided weakness including TSH normal,FLP shows triglyceride hide 327, VLDL high. HDL low. Atorvastatin dose was increased. 3. Mild headache with history of chronic migraine headache:on Aimovig sq. monthly and prn rizatriptan 3. History of DVT/PE (2009) after neck surgery: INR 1.9. On warfarin 10 mg daily 4. Obesity; with BMI of 43.8 kg per square this admission and CHELSEY; on BiPAP Weight loss recommended. 5. History of asthma/COPD with chronic hypoxic respiratory failure; on home oxygen 2L NC 6. DM-2; of unknown control on dapagliflozin, semaglutide 8 diabetic neuropathy; on gabapentin - ADA diet. Accu-Chek before meals and at bedtime with Humalog sliding scale coverage and hypoglycemia protocol. Decrease insulin glargine to 30 units BID to minimize risk of hypoglycemia. A1c was 6.5 on 09/15/2020 7. Essential hypertension; on diltiazem, furosemide, losartan and spironolactone -maintain stroke guidelines for BP management hold scheduled antihypertensives until CVA definitively ruled out on MRI. 8. Hyperlipidemia; on pitavastatin and fenofibrate - 09/16: FLP shows triglyceride hide 327, VLDL high. HDL low. Atorvastatin dose increased 9. RLS; with leg cramps on prn tizanidine and prn cyclobenzaprine - Continue current regimen. 10. Multiple cardiac comorbidities including CAD, chronic HFpEF, severe aortic stenosis status post TAVR 2020 with postop DVT. History of bilateral carotid bruits 11. Osteoporosis, osteoarthritis with sciatica status postlaminectomy in 2019 DVT prophylaxis -on warfarin Living will/advanced directive/end of life care: Patient does not have living will or advanced directive. Her and daughter is power of senior trial attorney for health after discussion of benefits/risks procedures involved with full code, DNR CC arrest and DNR CC, the patient opted for full code. Patient does want artificial life support including intubation, tube feed, ventilator and/chest compression, central venous catheter, vasopressor and DC shock if needed Medications at Discharge Home Medications fluoxetine 20 mg capsule 40 mg PO DAILY anxiety 01/26/14 calcium 600 mg-D3 800 unit-mag 40 oo-ajgm-hhkg-angel-boron chew tablet 1 ea PO DAILY vitamins 05/27/16 fenofibrate nanocrystallized 145 mg tablet 72.5 mg PO QHS cholesterol 04/26/19 trazodone 50 mg tablet 50 mg PO QHS sleep 08/09/19 epinephrine 0.3 mg/0.3 mL injection, auto-injector 0.3 mg (0.3 mL) IM X1 PRN Anaphylaxis #1 ea 01/18/20 albuterol sulfate 2.5 mg/3 mL (0.083 %) solution for nebulization 2.5 mg (3 mL) inhalation Q2H PRN PRN dyspnea, wheezing #180 mL 04/24/20 albuterol sulfate 90 mcg/actuation aerosol inhaler 2 inh inhalation Q4H PRN PRN Sob &/Or Wheezing #18 grams 04/24/20 montelukast 10 mg tablet 10 mg PO DAILY allergies/asthma #30 tabs 12/07/20 alendronate 70 mg tablet 70 mg PO WE bone health 12/21/20 nystatin 100,000 unit/gram topical powder 1 applic topical BID PRN PRN YEAST 12/21/20 beclomethasone dipropionate 80 mcg/actuation HFA breath activated aerosol 1 inh inhalation BID Asthma 03/22/21 budesonide-formoterol HFA 160 mcg-4.5 mcg/actuation aerosol inhaler 2 puff inhalation BID asthma 03/22/21 ipratropium 0.5 mg-albuterol 3 mg (2.5 mg base)/3 mL nebulization soln 3 ml inhalation BID asthma 03/22/21 cyanocobalamin (vitamin B-12) 100 mcg tablet (Vitamin B-12) 100 mcg PO DAILY supplement 04/05/21 melatonin 10 mg tablet 12 mg PO QHS sleep 04/05/21 pregabalin 150 mg capsule 150 mg PO TID nerve pain 04/05/21 meclizine 25 mg tablet 25 mg PO DAILY PRN Vertigo 05/04/21 docusate sodium 100 mg capsule 100 mg PO DAILY stool softener 08/17/21 magnesium 250 mg tablet 400 mg PO DAILY supplement 08/17/21 ascorbate calcium (vitamin C) 500 mg tablet 1 g PO DAILY vitamin 11/07/21 chromium picolinate 200 mcg tablet 200 mcg PO DAILY supplement 11/07/21 clobetasol 0.05 % topical cream 1 applic topical PRN PRN RASH/ITCHING 11/07/21 levocetirizine 5 mg tablet 5 mg PO DAILY allergies 11/07/21 dapagliflozin propanediol 10 mg tablet (Farxiga) 10 mg PO DAILY diabetes 08/11/22 multivitamin (Daily Multi-Vitamin tablet) 1 tab PO DAILY vag itching 06/12/23 quercetin 500 mg capsule 500 mg PO DAILY supplement 06/12/23 semaglutide 1 mg/dose (4 mg/3 mL) subcutaneous pen injector (Ozempic) 1 mg subcut ECHEVARRIA diabetes 06/12/23 tiotropium bromide 18 mcg capsule with inhalation device 18 mcg inhalation DAILY asthma 06/12/23 rizatriptan 10 mg tablet (Maxalt) 10 mg PO Q2H PRN migraine headache #10 tabs 06/13/23 azelastine 137 mcg-fluticasone 50 mcg/spray nasal spray 2 spray intranasal BID allergy 08/25/23 cholecalciferol (vitamin D3) 125 mcg (5,000 unit) tablet (Vitamin D3) 125 mcg PO DAILY vitamin-self care 08/25/23 sennosides 8.6 mg tablet (senna) 17.2 mg (2 x 8.6 mg) PO BID stool softner #120 tabs 09/03/23 Lactobacillus acidophilus (Acidophilus chewable tablet) 1 tab PO DAILY Supplement 09/29/23 ondansetron 4 mg disintegrating tablet 4 mg PO DAILY PRN nausea 09/29/23 oxycodone-acetaminophen 5 mg-325 mg tablet 1 tab PO BID pain 09/29/23 sennosides 8.6 mg-docusate sodium 50 mg tablet 2 tab-cap PO DAILY PRN constipation 09/29/23 zinc 100 mg tablet 100 mg PO DAILY supplement 09/29/23 diltiazem HCl 120 mg capsule,extended release 24 hr (Cardizem CD) 120 mg PO .COMPLEX high blood pressure 02/02/24 diltiazem HCl 240 mg capsule,extended release 24 hr 240 mg PO QDAY 02/16/24 spironolactone 50 mg tablet 50 mg PO DAILY #30 tabs 02/16/24 methocarbamol 500 mg tablet 500 mg PO .COMPLEX PRN ASK PCP 08/17/24 polyethylene glycol 3350 17 gram oral powder packet 17 g PO QDAY self care 08/17/24 losartan 50 mg tablet 50 mg PO DAILY 09/15/24 polyethylene glycol 3350 17 gram/dose oral powder (ClearLax) 8.5 g PO QDAY PRN constipation 09/15/24 tiotropium bromide inhalation DAILY PRN SOB 09/15/24 atorvastatin 40 mg tablet 40 mg PO QHS 30 days #30 tabs 09/17/24 insulin glargine U-300 conc 300 unit/mL (1.5 mL) subcutaneous pen (Toujeo SoloStar U-300 Insulin) 35 unit (0.1167 mL) subcut BID DIABETES 30 days #0 mL 09/17/24 omeprazole 40 mg capsule,delayed release 40 mg PO DAILY gerd 30 days #0 caps 09/17/24 topiramate 50 mg tablet 50 mg PO BID 30 days #60 tabs 09/17/24 furosemide 40 mg tablet 80 mg PO .BID MWF diuresis 09/27/24 warfarin 10 mg tablet 7 mg PO QMWF PRN Dr[address] Soria Manages. 09/27/24 warfarin 2 mg tablet 3 mg PO .QSUTUTHSA 09/27/24 Physical Exam Narrative Patient was seen and examined in the morning and in the afternoon on the day of admission. Patient was short of breath. Please see H&P for detailed physical exam. She was discharged on the same day of admission Weight / BMI Weight Weight: 255 lb Body Mass Index (BMI) 43.7 ABG / Lab / Microbiology Data 10/05/24 05:50 10/05/24 05:50 Laboratory: Laboratory Results - last 24 hr 10/05/24 05:50: B-Natriuretic Peptide 1141.0 H 10/05/24 07:38: Troponin I High Sens 94 H 10/05/24 12:10: Troponin I High Sens 75 H 10/05/24 12:30: POC Glucose 225 H 10/05/24 17:12: POC Glucose 198 H 10/05/24 21:51: POC Glucose 245 H Microbiology: Microbiology 10/05/24 11:20 Mucosa - Nasopharyngeal Respiratory Panel (PCR) - Final 10/05/24 06:40 Mucosa - Nose SARS-CoV-2, Influenza & RSV (PCR) - Final Radiography Diagnostic Testing: Radiology Impression Chest X-Ray 10/05/24 05:53 IMPRESSION: Central pulmonary vascular congestion, diffuse pulmonary edema and small pleural effusions. Findings may indicate CHF. Electronically Signed: Aly Beck MD at 7:50 EST , Brain MRI 10/05/24 09:17 IMPRESSION: Involutional changes of the brain, as described above. No acute infarct. Electronically Signed: Luis Alexis MD at 11:23 EST , Echocardiogram 10/05/24 09:29 Interpretation Summary Normal LV size. Left ventricular systolic function is normal. The left ventricular ejection fraction is 60 %. Mean aortic valve gradient 68 mmHg. Severe bioprosthethc valve stenosis Moderate (2+) eccentric aortic valve insufficiency. Ordering Physician: Ramiro Carey Referring Physician: Ophelia Soria Performed By: Anjelica Soriano, RDCS, RVT D/C Instructions DC O2, CPAP, BIPAP Needs PSN CPAP & BiPAP: BiPAP & CPAP Settings per PSN Mode BiPAP 10/05/24 19:30 Bipap Delivery Device Face Mask 10/05/24 19:30 BiPAP Inspiratory Pressure 19 10/05/24 19:30 BiPAP Expiratory Pressure 14 10/05/24 19:30 BiPAP Rate 12 10/05/24 19:30 Fraction of Inspired Oxygen ( 30 10/05/24 19:30 FIO2) Home O2 Discharge instructions: No Meaningful Use Info Meaningful Use Meaningful Use Diagnoses (Choose all that apply): None applicable Ischemic Stroke Statin Dosing Therapy Reference: STATIN DOSE THERAPY REFERENCE: * Patients > 75 years receive moderate or high dose statin therapy. * Patients 75 years or YOUNGER should receive HIGH intensity statin dose unless contraindicated. You will be required to document reason for non-treatment if statin daily dose does not meet guidelines. HIGH DOSE STATIN THERAPY DAILY Atorvastatin > than or = to 40 mg Rosuvastatin > than or = to 20 mg Amlodipine + Atorvastatin > than or = to 2.5/40 mg Ezetimibe + Simvastatin 10/80 mg Simvastatin 80mg Discharge Plan Admission Admit Date/Time: 10/05/24 07:23 Attending Provider: Ramiro Carey Primary Care Provider: Ophelia Soria Consulting Providers: Christian Covarrubias; Don Bansal; Estefani Goldstein; Katherine Walker; Vandana Kumari; Alexander Gregg; Evangelina Fried; Emir Garner; Denis Xiao; Colin Fofana; Mely Jim; Kamran Limon; Michelle Huston; Lev Obrien; Melinda León Forest; Chris Hammond; Yahaira Vincent; Dwayne Werner; Lisa Lemus; Shannon Saeed Discharge Orders/Prescriptions Prescriptions: No Action trazodone 50 mg tablet 50 mg PO QHS albuterol sulfate 2.5 mg /3 mL (0.083 %) solution for nebulization 2.5 mg INHALATION Q2H PRN PRN (Reason: dyspnea, wheezing) Qty: 180 6RF albuterol sulfate 90 mcg/actuation HFA aerosol inhaler 2 inh INHALATION Q4H PRN PRN (Reason: Sob &/Or Wheezing) Qty: 18 6RF montelukast 10 mg tablet 10 mg PO DAILY Qty: 30 6RF alendronate 70 mg tablet 70 mg PO WE nystatin 100,000 unit/gram powder 1 applic TOPICAL BID PRN PRN (Reason: YEAST) meclizine 25 mg tablet 25 mg PO DAILY PRN (Reason: Vertigo) magnesium 250 mg tablet 400 mg PO DAILY levocetirizine 5 mg tablet 5 mg PO DAILY clobetasol 0.05 % cream 1 applic topical PRN PRN (Reason: RASH/ITCHING) chromium picolinate 200 mcg tablet 200 mcg PO DAILY ascorbate calcium (vitamin C) 500 mg tablet 1 g PO DAILY diltiazem HCl 240 mg capsule,extended release 24hr 240 mg PO QDAY spironolactone 50 mg tablet 50 mg PO DAILY Qty: 30 11RF Rx Instructions: Take at evening meal with Losartan polyethylene glycol 3350 17 gram powder in packet 17 g PO QDAY Rx Instructions: OTC methocarbamol 500 mg tablet 500 mg PO .COMPLEX PRN (Reason: ASK PCP) Rx Instructions: 500 mg orally FOUR TIMES DAILY PRN; warfarin 2 mg tablet 3 mg PO .QSUTUTHSA Rx Instructions: Hold for INR more than 2.5 fluoxetine 20 MG capsule 40 mg PO DAILY Patient Comments: Depression/anxiety docusate sodium 100 mg capsule 100 mg PO DAILY Patient Comments: Stool softner [id number]-[id number]-ghvt-pim-odxf-boron 1 EACH tablet,chewable 1 ea PO DAILY fenofibrate nanocrystallized 145 MG tablet 72.5 mg PO QHS ipratropium-albuterol 0.5 mg-3 mg(2.5 mg base)/3 mL solution for nebulization 3 ml INHALATION BID Rx Instructions: Continue until re-evaluation per pulmonary with possible transition back to home regimen at that time. budesonide-formoterol 160-4.5 mcg/actuation HFA aerosol inhaler 2 puff INHALATION BID beclomethasone dipropionate 80 mcg/actuation HFA aerosol breath activated 1 inh inhalation BID furosemide 40 mg tablet 80 mg PO .BID MWF Rx Instructions: take on Friday, Friday, Friday cyanocobalamin (vitamin B-12) [Vitamin B-12] 100 mcg Tablet 100 mcg PO DAILY pregabalin 150 mg capsule 150 mg PO TID melatonin 10 mg Tablet 12 mg PO QHS dapagliflozin propanediol [Farxiga] 10 mg tablet 10 mg PO DAILY Ozempic 1 mg/dose (4 mg/3 mL) pen injector 1 mg subcut ECHEVARRIA tiotropium bromide 18 mcg capsule, w/inhalation device 18 mcg inhalation DAILY Rx Instructions: puncture 1 cap using device; one dose = 2 inhalations multivitamin [Daily Multi-Vitamin] Tablet 1 tab PO DAILY quercetin 500 mg capsule 500 mg PO DAILY rizatriptan [Maxalt] 10 mg tablet 10 mg PO Q2H PRN (Reason: migraine headache) Qty: 10 0RF Rx Instructions: do not exceed 3 doses per 24 hrs cholecalciferol (vitamin D3) [Vitamin D3] 125 mcg (5,000 unit) tablet 125 mcg PO DAILY azelastine-fluticasone 137-50 mcg/spray spray,non-aerosol 2 spray intranasal BID Rx Instructions: administer into each nostril sennosides [senna] 8.6 mg Tablet 17.2 mg PO BID Qty: 120 0RF Rx Instructions: OTC ondansetron 4 mg tablet,disintegrating 4 mg PO DAILY PRN (Reason: nausea) oxycodone-acetaminophen 5-325 mg tablet 1 tab PO BID sennosides-docusate sodium 8.6-50 mg tablet 2 tab-cap PO DAILY PRN (Reason: constipation) Acidophilus Tablet,Chewable 1 tab PO DAILY Patient Comments: 175 mg tab zinc 100 mg tablet 100 mg PO DAILY polyethylene glycol 3350 [ClearLax] 17 gram/dose powder 8.5 g PO QDAY PRN (Reason: constipation) tiotropium bromide [Spiriva Respimat] inhalation DAILY PRN (Reason: SOB) losartan 50 mg tablet 50 mg PO DAILY topiramate 50 mg Tablet 50 mg PO BID 30 Days Qty: 60 0RF omeprazole 40 mg capsule,delayed release(DR/EC) 40 mg PO DAILY 30 Days Qty: 0 0RF insulin glargine U-300 conc [Toujeo SoloStar U-300 Insulin] 300 unit/mL (1.5 mL) insulin pen 35 unit SUBCUT BID 30 Days Qty: 0 0RF Patient Comments: INJECT 50 UNITSESUBCUTANEOUSLY JUNIOR Rx Instructions: TOUJEO atorvastatin 40 mg Tablet 40 mg PO QHS 30 Days Qty: 30 0RF epinephrine 0.3 mg/0.3 mL auto-injector 0.3 mg IM X1 PRN (Reason: Anaphylaxis) Qty: 1 0RF diltiazem HCl [Cardizem CD] 120 mg capsule,extended release 24hr 120 mg PO .COMPLEX Patient Comments: as directed by doctor Rx Instructions: 120 mg orally daily PRN BP > 170 per PCP.; warfarin 10 mg tablet 7 mg PO QMWF PRN (Reason: Dr. Soria Manages.) Referrals / Follow Up: Ophelia Soria DO [Primary Care Provider] - Disposition Disposition (needs filled in before D/C Order can be placed): Acute Care Hospital Charges/Coding Visit Charges Inpatient E&M: 99700 Disch Hosp >30min
== END 2024-10-05 22:35 | disposition short-term general hospital (02) | DRG 314 ==
LOC: ED 07:24 → PCU 07:27
PROVIDERS: Admitting Provider Internal Medicine; Emergency Provider Emergency Medicine; PCP Internal Medicine; Visit Provider Internal Medicine
DX: T82.857A Stenosis of other cardiac prosthetic devices, implants and grafts, initial encounter (principal); J81.0 Acute pulmonary edema; J96.21 Acute and chronic respiratory failure with hypoxia; I50.33 Acute on chronic diastolic (congestive) heart failure; Z68.41 Body mass index [BMI] 40.0-44.9, adult; I13.0 Hypertensive heart and chronic kidney disease with heart failure and stage 1 through stage 4 chronic kidney disease, or unspecified chronic kidney disease; J45.901 Unspecified asthma with (acute) exacerbation; E11.42 Type 2 diabetes mellitus with diabetic polyneuropathy; I35.0 Nonrheumatic aortic (valve) stenosis; G25.81 Restless legs syndrome; K76.89 Other specified diseases of liver; I25.10 Atherosclerotic heart disease of native coronary artery without angina pectoris; Z79.4 Long term (current) use of insulin; E78.00 Pure hypercholesterolemia, unspecified; G43.709 Chronic migraine without aura, not intractable, without status migrainosus; G47.33 Obstructive sleep apnea (adult) (pediatric); X58.XXXA Exposure to other specified factors, initial encounter; Z95.2 Presence of prosthetic heart valve; Z79.01 Long term (current) use of anticoagulants; E66.9 Obesity, unspecified; Z98.1 Arthrodesis status; Z99.81 Dependence on supplemental oxygen; Z79.83 Long term (current) use of bisphosphonates; Z79.84 Long term (current) use of oral hypoglycemic drugs; Z79.891 Long term (current) use of opiate analgesic; Z79.899 Other long term (current) drug therapy; Z86.16 Personal history of COVID-19; Z86.711 Personal history of pulmonary embolism; Z86.718 Personal history of other venous thrombosis and embolism
CPT/HCPCS: 36415; 36600; 70450; 70496; 70498; 70551; 71045; 76705; 76981; 80048; 80076; 82803; 82962; 83880; 84484; 85025; 85610; 85730; 87631; 87633; 93005; 93308; 94002; 94640; 94762; 97162; 97166; 99285; Q9967; A4216; J1940

== ENCOUNTER → 2025-01-13 | Outpatient (CLI) | payer MEDICARE, MEDICAID, SELFPAY ==
[2021-09-03 12:59] VITALS: BMI 43.4
--- NOTE | 2025-01-13 10:12 | PCM.CR.HP2 ---
CR - History & Physical General Arrival date:: 01/13/25 Arrival time:: 10:12 Date of Referral:: 10/26/24 Date of CR Evaluation:: 01/13/25 Referring Physician: Dr. Santizo Primary Diagnosis: Valve repair/replace History of Present Cardiac Event Onset Date Current stable Angina Pectoris:: No Acute Myocardial Infarction within 12 months:: No Coronary Artery Bypass Graft:: No Heart valve replacement or repair:: Yes (onset 10/20/2024) Medications Ambulatory Orders ?Medication ?Instructions ?Recorded fluoxetine 20 mg capsule 40 mg PO DAILY anxiety 01/26/14 calcium 600 mg-D3 800 unit-mag 40 1 ea PO DAILY vitamins 05/27/16 gt-vjaf-suxl-angel-boron chew tablet fenofibrate nanocrystallized 145 72.5 mg PO QHS cholesterol 04/26/19 mg tablet trazodone 50 mg tablet 50 mg PO QHS sleep 08/09/19 epinephrine 0.3 mg/0.3 mL 0.3 mg (0.3 mL) IM X1 PRN 01/18/20 injection, auto-injector Anaphylaxis #1 ea albuterol sulfate 2.5 mg/3 mL 2.5 mg (3 mL) inhalation Q2H PRN 04/24/20 (0.083 %) solution for nebulization PRN dyspnea, wheezing #180 mL albuterol sulfate 90 mcg/actuation 2 inh inhalation Q4H PRN PRN Sob 04/24/20 aerosol inhaler &/Or Wheezing #18 grams montelukast 10 mg tablet 10 mg PO DAILY allergies/asthma 12/07/20 #30 tabs alendronate 70 mg tablet 70 mg PO WE bone health 12/21/20 nystatin 100,000 unit/gram topical 1 applic topical BID PRN PRN YEAST 12/21/20 powder beclomethasone dipropionate 80 1 inh inhalation BID Asthma 03/22/21 mcg/actuation HFA breath activated aerosol budesonide-formoterol HFA 160 2 puff inhalation BID asthma 03/22/21 mcg-4.5 mcg/actuation aerosol inhaler ipratropium 0.5 mg-albuterol 3 mg 3 ml inhalation BID asthma 03/22/21 (2.5 mg base)/3 mL nebulization soln melatonin 10 mg tablet 12 mg PO QHS sleep 04/05/21 pregabalin 150 mg capsule 150 mg PO TID nerve pain 04/05/21 meclizine 25 mg tablet 25 mg PO DAILY PRN Vertigo 05/04/21 docusate sodium 100 mg capsule 100 mg PO DAILY stool softener 08/17/21 magnesium 250 mg tablet 400 mg PO DAILY supplement 08/17/21 clobetasol 0.05 % topical cream 1 applic topical PRN PRN 11/07/21 RASH/ITCHING levocetirizine 5 mg tablet 5 mg PO DAILY allergies 11/07/21 dapagliflozin propanediol 10 mg 10 mg PO DAILY diabetes 08/11/22 tablet (Farxiga) multivitamin (Daily Multi-Vitamin 1 tab PO DAILY vag itching 06/12/23 tablet) semaglutide 1 mg/dose (4 mg/3 mL) 1 mg subcut ECHEVARRIA diabetes 06/12/23 subcutaneous pen injector (Ozempic) tiotropium bromide 18 mcg capsule 18 mcg inhalation DAILY asthma 06/12/23 with inhalation device rizatriptan 10 mg tablet (Maxalt) 10 mg PO Q2H PRN migraine headache 06/13/23 #10 tabs azelastine 137 mcg-fluticasone 50 2 spray intranasal BID allergy 08/25/23 mcg/spray nasal spray cholecalciferol (vitamin D3) 125 125 mcg PO DAILY vitamin-self care 08/25/23 mcg (5,000 unit) tablet (Vitamin D3) Lactobacillus acidophilus 1 tab PO DAILY Supplement 09/29/23 (Acidophilus chewable tablet) ondansetron 4 mg disintegrating 4 mg PO DAILY PRN nausea 09/29/23 tablet zinc 100 mg tablet 100 mg PO DAILY supplement 09/29/23 spironolactone 50 mg tablet 50 mg PO DAILY #30 tabs 02/16/24 polyethylene glycol 3350 17 8.5 g PO QDAY PRN constipation 09/15/24 gram/dose oral powder (ClearLax) tiotropium bromide inhalation DAILY PRN SOB 09/15/24 atorvastatin 40 mg tablet 40 mg PO QHS 30 days #30 tabs 09/17/24 insulin glargine U-300 conc 300 35 unit (0.1167 mL) subcut BID 09/17/24 unit/mL (1.5 mL) subcutaneous pen DIABETES 30 days #0 mL (Toujeffrey SoloStar U-300 Insulin) omeprazole 40 mg capsule,delayed 40 mg PO DAILY gerd 30 days #0 caps 09/17/24 release topiramate 50 mg tablet 50 mg PO BID 30 days #60 tabs 09/17/24 furosemide 40 mg tablet 80 mg PO .BID MWF diuresis 09/27/24 peg 3350-electrolytes 236 240 ml PO Q10M #4,000 mL 12/30/24 gram-22.74 gram-6.74 gram-5.86 gram solution (Golytely) warfarin 10 mg tablet [address] Soria Manages. 12/30/24 ascorbate calcium (vitamin C) 500 2 g PO DAILY vitamin 01/03/25 mg tablet diltiazem HCl 120 mg 120 mg PO .COMPLEX high blood 01/03/25 capsule,extended release 24 hr pressure #30 caps (Cardizem CD) docusate sodium 100 mg capsule 100 mg PO QDAY 01/03/25 (Colace) linaclotide 72 mcg capsule 72 mcg PO QAM 01/03/25 (Linzess) mecobalamin (vitamin B12) 5,000 5,000 mcg PO QDAY 01/03/25 mcg chewable tablet oxycodone-acetaminophen 5 mg-325 1 tab PO BID PRN pain 01/03/25 mg tablet potassium chloride 20 mEq 20 meq PO BID 01/03/25 tablet,extended release Allergies Allergies clindamycin Allergy (Verified 12/30/24 12:57) Rash erythromycin base (Erythromycin Base) Allergy (Verified 12/30/24 12:57) Rash omalizumab (From Xolair) Allergy (Verified 12/30/24 12:57) Chest tightness Penicillins Allergy (Verified 12/30/24 12:57) Rash sulfamethoxazole (From Bactrim) Allergy (Verified 12/30/24 12:57) Chest tightness trimethoprim (From Bactrim) Allergy (Verified 12/30/24 12:57) Chest tightness Sulfa (Sulfonamide Antibiotics) Adverse Reaction (Unknown, Verified 12/30/24 12:57) Unknown shortness of breath Sleep Disorder Evaluation Hx of Sleep Apnea: Yes Do you snore loudly (louder than talking or can be heard through closed doors)?: No Do you often feel tired/ fatigued/ sleepy during daytime?: No Has anyone observed you stop breathing during sleep?: No History of Hypertension (for STOP score): Yes STOP Results: Negative Advanced Directives Advanced Directives Do you have a Healthcare Power of Shoulder Sawyer?: No Living Will: No Advance Directives Information Provided: No Advance Directives on File: No DNR Order?:: No Past Medical History Covid-19 Screening Physicial Symptoms Other Clinical Concerns Exposure Risk Pertinent Comorbidities Has a serious heart condition:: Yes Severely obese (Body Mass Index of 40 or higher):: Yes Diabetic:: Yes Past Medical Illness Past Medical History (Updated 01/12/25 @ 15:49 by Misti Fields) Surgical complete heart block I97.89, I44.2 Acute on chronic hypoxic respiratory failure J96.21 COPD exacerbation J44.1 Acute CVA (cerebrovascular accident) I63.9 Obesity (BMI 30-39.9) E66.9 Subtherapeutic international normalized ratio (INR) R79.1 Migraine headache G43.909 Rectal bleeding K62.5 Peripheral neuropathy G62.9 Positive FIT (fecal immunochemical test) R19.5 History of transcatheter aortic valve replacement (TAVR) (~04/19/21) Z95.2 23mm Cook Ashley S3 ultra valve @ [facility] 04/19/21 COVID-19 U07.1 Depression F32.9 Anxiety F41.9 Discoloration of skin L81.9 R LEG History of steroid therapy Z92.241 INJ, ORAL ALSO Insulin dependent diabetes mellitus Diabetes E11.9 Arthritis M19.90 High cholesterol E78.00 Pulmonary embolism I26.99 SEVERAL AFTER NECK SURGERY, THEN 2010 Easy bruising R23.8 Excessive bleeding R58 Restless legs G25.81 Back pain M54.9 TIA (transient ischemic attack) G45.9 03/2021 NO RESIDUAL Non-smoker Z78.9 BiPAP (biphasic positive airway pressure) dependence Z99.89 W/ 2L O2 On home oxygen therapy Z99.81 2L NC INTO BIPAP Shortness of breath on exertion R06.02 Leg cramps R25.2 History of pain when walking Z87.898 History of edema Z87.898 MENDEL LOWER LEGS History of stress test Z92.89 04/11/2016 Hx of transesophageal echocardiography (YOLANDA) for monitoring Z92.89 10/12/2019 History of echocardiogram Z92.89 04/10/2021 Cardiology follow-up encounter Z09 [facility], LAST VISIT 05/04/21 Rotator cuff arthropathy of right shoulder M12.811 History of DVT (deep vein thrombosis) Z86.718 AFTER AORTIC VALVE REPLACEMENT Back pain with sciatica M54.9, M54.30 Nonrheumatic aortic (valve) stenosis I35.0 Essential hypertension I10 Carotid artery disease I77.9 Atherosclerotic heart disease of [place] coronary artery without angina pectoris I25.10 Personal history of anaphylaxis Z87.892 Bilateral carotid bruits R09.89 Body mass index 45.0-49.9, adult Z68.42 Diastolic heart failure I50.30 COPD (chronic obstructive pulmonary disease) J44.9 CHELSEY treated with BiPAP G47.33 History of pulmonary embolism Z86.711 Morbid obesity E66.01 Type 2 diabetes mellitus E11.9 Asthma J45.909 Past Surgical History Past Surgical History Status post cardiac pacemaker procedure Z95.0 10/19/2024 [facility] History of laminectomy Z98.890 History of colonoscopy Z98.890 09/09/23 History of cardiac catheterization Z98.890 01/19/21 Aortic valve replaced Z95.2 04/19/2021 [facility], redo 10/19/2024 [facility] History of left heart catheterization (LHC) (~01/19/21) Z98.890 LEFT MAIN: Angiographically normal; LEFT ANTERIOR DESCENDING ARTERY: PROX LAD: Mild calcification, Mild luminal irregularities,; CIRCUMFLEX ARTERY:MID CIRC: Mild luminal irregularities; RAMUS: Angiographically normal RIGHT CORONARY ARTERY: Mild luminal irregularities, PROX RCA: Mild calcification, MID RCA: Mild calcification; VALVE FINDINGS:Aortic Valve Calcification - moderate to severe, Mitral Valve Annular Calcification Moderate to Severe per cardiac cath 01/19/21 H/O lumbosacral spine surgery Z98.890 07/2020 History of rotator cuff surgery Z98.890 2005 Hx of appendectomy Z90.49 AGE 16 History of hernia repair Z98.890, Z87.19 History of section Z98.891 1985 History of neck surgery Z98.890 2006 Surgical History: appendectomy, herniorrhaphy and - (Cervical disc surgery, rotator cuff surgery, .) Family History Summary Family History Father Heart disease Diabetes CAD (coronary artery disease) Mother CAD (coronary artery disease) CVA (cerebral vascular accident) Diabetes Brother CAD (coronary artery disease) CVA (cerebral vascular accident) Diabetes Unknown Cancer Grandmother CVA (cerebral vascular accident) Diabetes Grandfather CVA (cerebral vascular accident) Grandmother Myocardial infarction Brother Diabetes Sister Diabetes Social History Smoking History Smoking Status: Never smoker Alcohol Use Alcohol Usage: No Substance Abuse Hx Substance Use: No Occupation Occupation (List type of work in comments):: Retired Social Environment Status Marital Status: Current Living Arrangements Living Environment:: Spouse Children How many children do you have?: 2 Do any of your children live nearby?: Yes Safety Do you feel safe in your surroundings?: Yes Assistance Do you need any assistance at home?: no Review of Systems Review of Systems Hints Review of Present Symptoms: Reports Shortness of Breath with Exertion, Operative Discomfort, Angina, Dizziness/Lightheadedness, Fatigue, Appetite - Normal and Appetite - Special Diet; Denies Shortness of Breath at Rest, PVD, Wound Healing, Heart Arrhythmia/Irregularities, Sleep - Normal or Sexual Changes Pain Is Patient Pain Free?: No Pain Location: lower extremity Pain Level: 7/10 Risk Factor Assessment Chief Complaint Chief Complaint: s/p valve repair/replace Vital Signs Pulse Ox: 98 Blood Pressure: 100/70 Pulse Pulse Rate: 93 Pulse Rhythm: Regular Hypertension How long have you been treated?: 30 years or more Blood Pressure Sitting - Left Arm: 100/70 Diabetes Diabetic History: Type II Obesity Height: 5 ft 4 in Weight:: 231 lb Weight in Pounds: 231.0 lbs Body Mass Index (BMI): 39.6 Nutritional Referral for Obesity: Yes Risk Stratification Risk Guidelines: Lowest Risk: Risk Factor for Smoking, Moderate Risk: Risk Factor for Dyslipidemia and Risk Factor for Depression and Highest Risk: Risk Factor for Diabetes, Risk Factor for Obesity, Risk Factor for Hypertension and Risk Factor for Sedentary Lifestyle For Smoking Smoking Risk Guidelines For Dyslipidemia Dyslipidemia Risk Guidelines For Diabetes Mellitus Diabetes Risk Guidelines For Obesity/Overweight Obesity/Overweight Risk Guidelines For Hypertension Hypertension Risk Guidelines For Sedentary Lifestyle Sedentary Lifestyle Risk Guidelines For Depression Depression Risk Guidelines Family History Family History Father Heart disease Diabetes CAD (coronary artery disease) Mother CAD (coronary artery disease) CVA (cerebral vascular accident) Diabetes Brother CAD (coronary artery disease) CVA (cerebral vascular accident) Diabetes Unknown Cancer Grandmother CVA (cerebral vascular accident) Diabetes Grandfather CVA (cerebral vascular accident) Grandmother Myocardial infarction Brother Diabetes Sister Diabetes Motivation Motivation to Participate On a scale of 1 to 10, how prepared are you to commit to attending program?: 8 What do you see as barriers to successfully being able to complete the program?: nothing What do you see as the benefits of succesfully completing the program? In other words, what do you hope to get out of participating in the program?: less dizziness, less fatigue, stronger Are there issues you are dealing with that will interfere with completing the program?: no Do you have a spouse or signficant other, family or friends who will help support you to complete the program?: yes
--- NOTE | 2025-01-13 10:18 | PCM.CR.ITP ---
Diagnosis General Information Admitting Diagnosis: valve repair/replace Personal Learning Style:: Audio/Visual Barriers to Learning: No Barriers Stage of change r/t lifestyle modifications:: Contemplation Gave educational material for:: Treating Heart Disease, How The Heart Works, What it means to have Heart Disease, How Coronary Artery Disease is Diagnosed, Heart Procedures, What Heart Medications Do, Risk Factors & Modifications, Living an Active Life, Nutrition, Emotions & Heart Disease, Stress Management & Relaxation and Sleep Disorders & Heart Disease Education/Goals Cardiac Rehabilitation Goals Personal Goals: Initial Assessment: Improve management of stress and emotions, Improve energy level, Improve muscle strength and endurance, Improve diet and eating habits (eat healthier) and Control risk factors (learn risk factor modification) Scale for measuring improvement of personal goals Diagnosis & Disease Process Outcomes/Goals: Pt IDs own risk factors & lifestyle modifications by Session 10, Verbalizes symptoms of angina & response by session 3., Pt independently manages and Other Additional Outcomes/Goals: Plan/Interventions: Assist Pt to ID & engage in lifestyle modification to reduce CVD risk, Instruct on individual risk factors, Review symptoms of angina & emergency actions, Review secondary diagnosis & identify educational needs. and Other see comment 30 day Reassessments:: Not Met 30 day Reassessments:: Not Met 30 day Reassessments:: Not Met 30 day Reassessments:: Not Met Final Reassessments:: Not Met Safety Referral to Physical Therapy: No Referral to [facility] Case Management: No Fall Risk Assessed:: Yes Assistive Devices:: None Exercise - Initial Assessment Visit Date of Eval: 01/13/25 (initial eval ) Mets: Pre-: >3 METS for 30 minutes by discharge, >5 METS for 30 minutes by discharge, >7 METS for 30 minutes by discharge and Unable to meet goal due to: (see comment below) Physician Prescribed Exercise Modalities: Treadmill, Schwinn Airdyne AD-7, SciFit Stepper, [employer] Pro-II Ergometer and SciFit Lateral [place] Frequency: 3x/week for 12 weeks [36 sessions] Intensity: 60-80% of age predicted maximum heart rate reserve Duration: 30 - 45 minutes Current METSs:: 2.5 Target Heart Rate:: 93-116 Resting Blood Pressure: 100/70 EKG Type: SB w/1st degree AV block, RBBB Outcomes & Goals Goals:: Verbalizes understanding of THR, RPE & goal METS by session 6, Documents in home exercise log/reports 30 min aerobic 5 day/wk by DC, Demonstrates accurate pulse taking by DC and Other additional outcome/goals: see below Intervention & Plan Exercise Program Goals: Instruct on personal THR & RPE, Instruct on MET level & personal MET goal, Show patient to take own pulse /validate performance until accurate, Instruct on home exercise and Other additional plan/int Physical Activity Home Exercise Physical Activity - Home Exercise: Safe Exercise, Warm-up, Self-monitoring, Cool-Down, Home Exercise > 30 min Daily and Sitting Time <3 hours/daily Outcomes & Goals Outcomes/Goals: Demonstrates correct Warm-up/exercise Cool-Down (S3) if = 2.5 METs, Verbalizes symptoms of exercise intolerance by Session 3 (S3), Demonstrate safe equipment use (S3) & follows exercise prescrition (6) and Other: See below Intervention & Plan Plan/Intervention: Instruct warm-up & cool-down if exercising at > 2 METs, Instruct on symptoms of exercise intolerance & actions to take, Instruct & monitor on saf, Assess intial functional capacity & safety risk and Other See below Nutrition - Initial Assessment Program Goals Nutrition Program Goals Patient has diagnosis of Hyperlipidemia (ICD E78)?: Yes Visit Date of Eval: 01/13/25 (initial eval ) Cholesterol/Lipids (Other Core Measures) Determine presence & major risk factors that modify LDL goal: Hypertension or hypertensive medication, Low HDL cholesterol <40 mg/dL*, Family history of premature CHD in Male < 55 years: female <65 yearsFa and Age men > 45 years; women >/= 55 years Outcomes/Goals: Pt IDs own risk factors & lifestyle modifications by Session 10, Verbalizes symptoms of angina & response by session 3., Pt independently manages and Other Additional Outcomes/Goals: Intervention/Plan: Advocate for lipid panel cholesterol medication if applicable, Instruct on personal lipid levels & lipid goals/NCEP guidelines, Instruct on cholesterol and Other additional plan/int Diabetes (Other Core Measures) Diabetes Type: Diagnosis Type II ICD-10 E11 Insulin dependent injection/pump?: Yes Non-Insulin Dependent?: Yes Do you monitor your blood sugar at home?: Yes Weight Mgt (Other Care) Height: 5 ft 4 in Weight:: 231 lb BMI: 39.6 Diagnosis Overweight/Obesity BMI> 30% ICD-10 E66: Yes Diagnosis High BMI/Morbid Obesity BMI> 35% ICD-10 Z68: Yes Outcomes/Goals: Pt sets, maintains & shows weight loss goal & trend during rehab and Other additional outcomes/goals Intervention/Plan: Instruct on ideal BMI & set weight loss goal w/patient, Assist pt to ID & incorporate diet changes for weight loss by S9, Refer to Structured Weight Loss program as appropriate, Encourage goal of using 250-300dcal per session for weight loss and Other additional plan/interventions Healthy Eating Habits Will attend diet classes:: Yes Outcomes/Goals:: Consume diet rich in vegs,fruits,whole grain/high fiber,fish,lean meat, Limit sat/trans fats,cholesterol & added salts & sugars and Other additional outcome/goals: Intervention/Plan:: Assess current eating habits and Other Additional plan/interventions Education Gave educational materials for:: Signs & symptoms of hypoglycemia, Signs & symptoms of hyperglycemia, Relate diabetes to coronary artery disease and Healthy eating Core - Initial Assessment Visit Date of Eval: 01/13/25 (initial eval) Medication Compliance Preventative Medication(s):: Statin/lipid and Warfarin/Coumadin H/O mental health issues: depression, anxiety, or addiction?: No Doesn?t believe in the benefits of treatment?: No Believes medications are unnecessary or harmful?: No Has a concern about medication side effects?: No Expresses concern over the cost of medications?: No Outcomes/Goals: Verbalizes medications,desired effect & common side effects @ DC, Pt self-reports following medication regimen, Keeps card in wallet w/medications listed by DC and Other additional outcome/goals: Interventions/plans: Instruct on medication effects & side effects, Review medication list w/patient every two weeks, Instruct importance of taking meds as ordered & assist problem solving and Other additional Tobacco Use Tobacco Use: Non-smoker Hypertension Hypertension Diagnosis:: Hypertension ICD-10 I10 [place] [employer] Hypertension Guidelines Outcomes/Goals: Able to verbalize/achieve optimal blood pressure <130/80, Incorporates diet changes & exercise for blood pressure control by DC and Other additional outcomes/goals Interventions/plan: Instruct on optimal blood pressure, hypertension & medications, Instruct on effects of sodium, alcohol, stress, exercise &hypertension and Other additional plan/interventions Tobacco Cessation Referral Smoking Cessation Referral:: No Individual Education/Counseling:: No Education Schedule Given:: Yes Psychosocial - Initial Assess VIsit Date of Eval: 01/13/25 (initial eval ) History of previous Mental disease:: No Target Goals Target Goals Psychosocial Test Tool Used:: Myah Andrews QOL Cardiac and PHQ-9 Questionnaire phq-9 Severity Referral to Behavioral Health PS - Interventions: Yes: Attend Stress Management Classes Outcomes/Goals: See list Psychosocial Outcomes/Goals:: ID's personal stressors & 2 strategies to manage stress by discharge and Other Additional outcome/goals: Intervention/Plan: See List Interventions/Plan:: Assess stressors,coping strategies & signs of derpression on admission, Instruct/assist pt to develop coping & personal stress Mgt strategies, Refer to Behavioral Health if appropriate, Refer to Physician if appropriate, Instruct patient to recognize signs & symptoms of depression, Instruct patient to recog and Other additional plan/intervention Patient Health Questionnaire PHQ-9 Screening Initial Assessment: 1. Little interest or pleasure in doing things: Several days 2. Feeling down, depressed, or hopeless: Not at all 3. Trouble falling or staying asleep, or sleeping too much: Nearly every day 4. Feeling tired or having little energy: More than half the days 5. Poor appetite or overeating: More than half the days 6. Feeling bad about yourself -- or that you are a failure or have let yourself or your family down: Not at all 7. Trouble concentrating on things, such as reading the newspaper or watching television: Not at all 8. Moving or speaking so slowly that other people could have noticed. Or the opposite - being so fidgety or restless that you have been moving around a lot more than usual: Not at all 9. Thoughts that you would be better off , or of hurting yourself in some way: Not at all How difficult have these problems made it for you to do your work, take care of things at home, or get along with other people?: Very difficult Total Score: 8 CELESTINA-Q SV Test Statements CAD is a disease of the arteries in the heart: False Examples of risk factors for heart disease: True Angina is chest pain or discomfort: True The benefits of resistance training include: True Eating more meat and dairy products: False Anti-platelet medications such as aspirin are important: True The only effective way to manage stress: False An exercise warm-up slowly increases heart rate: True Prepared, processed foods usually have high sodium: True Depression is common after a heart attack: True The statin medications lower cholesterol: True To control blood pressure, lower the amount of sodium: True If someone gets chest discomfort during walking: False Transfats are partially hydrogenated vegetable oils: True Sleep apnea that is not treated increases the risk: False To control cholesterol, one should become a vegetarian: False Someone knows if he/she is exercising at the right level: True Diabetes cannot be prevented with exercise & health eating: False Stress is a large risk for heart attack: True A diet that can help lower blood pressure is rich in: True Total Score Total Correct Responses: 20 Self-Efficacy 6-Item Scale Initial Assessment: We would like to know how confident you are in doing certain activities. Please select your confidence level for: Fatigue Select Number: 3 Physical Discomfort or Pain Select Number: 2 Emotional Distress Select Number: 3 Other Symptoms or Health Problems Select Number: 3 Different Tasks and Activities Select Number: 3 Medication Select Number: 6 Total Score:: 3 Nutrition Survey Nutrition Survey Instructions Scoring Instructions Nutrition Survey Initial: Have you lost >10 lbs over the past 2 months without trying?: No Are you following a special diet at home for diabetes, low fat, or low salt?: Yes Are you interested in meeting with a dietitian for help understanding your diet?: Yes Do you eat less than 3 meals a day?: No Do you eat fatty meats ([place], sausage, ribs, etc), fried foods, desserts, large amounts of salad dressings, margarine, butter, or cheese most days?: Yes Do you have food allergies? [Enter types in comment field]: No Do you eat in restaurants more than 3 times a week?: No Do you season food with salt, seasoning salt, or garlic salt?: Yes Do you used canned, boxed, frozen meals, or soups, seasoning packets?: Yes Total Score:: 5 Exercise - 30-day Assessment Physician Prescribed Exercise Modalities: Treadmill, [employer] AD-7, SciFit Stepper, SciFit Pro-II Ergometer and SciFit Lateral [place] Exercise - 60-day Assessment Physician Prescribed Exercise Modalities: Treadmill, [employer] AD-7, SciFit Stepper, SciFit Pro-II Ergometer and SciFit 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 Exercise - 90-day Assessment Physician Prescribed Exercise Modalities: Treadmill, [employer] AD-7, SciFit Stepper, SciFit Pro-II Ergometer and 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 Exercise - Final/Discharge Physician Prescribed Exercise Modalities: Treadmill, [employer] Airdyne AD-7, SciFit Stepper, SciFit Pro-II Ergometer and SciFit 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 Frequency: 3x/week for 12 weeks [36 sessions] Intensity: 60-80% of age predicted maximum heart rate reserve Current METSs:: 2.5 Target Heart Rate:: 93-116 Nutrition - 30-Day Assessment Weight Mgt (Other Care) Height: 5 ft 4 in Weight:: 231 lb BMI: 39.6 Nutrition - 60-Day Assessment Weight Mgt (Other Care) Height: 5 ft 4 in Weight:: 231 lb BMI: 39.6 Psychosocial - 30-Day Assess Target Goals Target Goals Referral to Behavioral Health PS - Interventions: Yes: Attend Stress Management Classes Psychosocial - 60-Day Assess Target Goals Target Goals Referral to Behavioral Health PS - Interventions: Yes: Attend Stress Management Classes Psychosocial - 90-Day Assess Target Goals Target Goals Referral to Behavioral Health PS - Interventions: Yes: Attend Stress Management Classes Psychosocial - Final Assessmen Target Goals Target Goals Referral to Behavioral Health PS - Interventions: Yes: Attend Stress Management Classes Nutrition - 90-Day Assessment Weight Mgt (Other Care) Height: 5 ft 4 in Weight:: 231 lb BMI: 39.6 Nutrition - Final Assessment Program Goals Patient has diagnosis of Hyperlipidemia (ICD E78)?: Yes Weight Mgt (Other Care) Height: 5 ft 4 in Weight:: 231 lb BMI: 39.6
[2025-01-13 10:37] VITALS: BP 100/70; PULSE 93; O2SAT 98
[2025-01-13 11:03] VITALS: BP 100/70; BMI 39.6
[2025-01-13 11:04] VITALS: BMI 39.6
== END | disposition home or self-care (01) ==
PROVIDERS: PCP Internal Medicine
DX: Z95.2 Presence of prosthetic heart valve (principal)

== ENCOUNTER 2025-01-19 14:52 | Emergency (ER) | payer MEDICARE, MEDICAID, SELFPAY ==
[2025-01-13 11:03] VITALS: BMI 39.6
[2025-01-19 14:54] VITALS: BP 116/68; PULSE 96; RESP 18; TEMP 36.1; O2SAT 96
--- NOTE | 2025-01-19 15:08 | RAD_ITS ---
PROCEDURE: CHEST 1 VIEW (PORTABLE) 01/19/2025 REASON FOR EXAM: CHEST PAIN TECHNIQUE: Frontal view of the chest. COMPARISON: None FINDINGS: Heart: Top-normal heart size for technique. LEFT chest wall pacer. Mediastinum: Sternotomy. Lungs/pleura: No focal consolidation. No sizeable pleural effusion or visible pneumothorax. Bones: Partially imaged reverse geometry RIGHT shoulder arthroplasty. Partially imaged cervical spinal operative changes including posterior fusion. Degenerative changes of the LEFT shoulder. Lines and support devices: None. RAD/Chest 1 View (Portable) IMPRESSION: 1. No visible acute cardiopulmonary findings. 2. Additional description as above. Reading Location: [id number]
--- NOTE | 2025-01-19 15:10 | ED.VIS.CHEST ---
HPI History of Present Illness Chief Complaint: Chest Pain Informant: patient Narrative Narrative: Sent over from cardiac rehab for evaluation. Reports 9 AM palpitations and racing heart during argument with her significant other. Reports pacemaker placed this past October she states she was transferred before [place] to [facility] for bad heart valve. She does not recall the hospitalization or procedure. She has been noticing intermittent chest tightness since her procedure. Intermittent symptoms since her argument during rehab had some symptoms therefore sent here. She has a [employer] pacemaker. Denies recent cough. Denies recent vomiting. She is on warfarin. History of DVT and PE. Reviewing records notes surgical heart block leading to pacemaker. [facility] Medical History Surgical complete heart block Acute on chronic hypoxic respiratory failure COPD exacerbation Acute CVA (cerebrovascular accident) Obesity (BMI 30-39.9) Subtherapeutic international normalized ratio (INR) Migraine headache Rectal bleeding Peripheral neuropathy Positive FIT (fecal immunochemical test) History of transcatheter aortic valve replacement (TAVR) (~04/19/21) COVID-19 Depression Anxiety Discoloration of skin History of steroid therapy Insulin dependent diabetes mellitus Diabetes Arthritis High cholesterol Pulmonary embolism Easy bruising Excessive bleeding Restless legs Back pain TIA (transient ischemic attack) Non-smoker BiPAP (biphasic positive airway pressure) dependence On home oxygen therapy Shortness of breath on exertion Leg cramps History of pain when walking History of edema History of stress test Hx of transesophageal echocardiography (YOLANDA) for monitoring History of echocardiogram Cardiology follow-up encounter Rotator cuff arthropathy of right shoulder History of DVT (deep vein thrombosis) Back pain with sciatica Nonrheumatic aortic (valve) stenosis Essential hypertension Carotid artery disease Atherosclerotic heart disease of [place] coronary artery without angina pectoris Personal history of anaphylaxis Bilateral carotid bruits Body mass index 45.0-49.9, adult Diastolic heart failure COPD (chronic obstructive pulmonary disease) CHELSEY treated with BiPAP History of pulmonary embolism Morbid obesity Type 2 diabetes mellitus Asthma Home Medications ?Medication ?Instructions ?Recorded ?Last Taken ?Type calcium 600 mg-D3 800 unit-mag 40 1 ea PO DAILY vitamins 05/27/16 01/18/25 History [id number]-kmgy-qerx-angel-boron chew tablet fenofibrate nanocrystallized 145 72.5 mg PO QHS cholesterol 04/26/19 01/18/25 History mg tablet trazodone 50 mg tablet 50 mg PO QHS sleep 08/09/19 01/18/25 History epinephrine 0.3 mg/0.3 mL 0.3 mg (0.3 mL) IM X1 PRN 01/18/20 Unknown Rx injection, auto-injector Anaphylaxis #1 ea albuterol sulfate 2.5 mg/3 mL 2.5 mg (3 mL) inhalation Q2H PRN 04/24/20 01/19/25 Rx (0.083 %) solution for nebulization PRN dyspnea, wheezing #180 mL albuterol sulfate 90 mcg/actuation 2 inh inhalation Q4H PRN PRN Sob 04/24/20 01/19/25 Rx aerosol inhaler &/Or Wheezing #18 grams montelukast 10 mg tablet 10 mg PO DAILY allergies/asthma 12/07/20 01/19/25 Rx #30 tabs alendronate 70 mg tablet 70 mg PO WE [employer] health 12/21/20 01/12/25 History beclomethasone dipropionate 80 1 inh inhalation BID Asthma 03/22/21 01/19/25 History mcg/actuation HFA breath activated aerosol budesonide-formoterol HFA 160 2 puff inhalation BID asthma 03/22/21 01/19/25 History mcg-4.5 mcg/actuation aerosol inhaler ipratropium 0.5 mg-albuterol 3 mg 3 ml inhalation BID asthma 03/22/21 01/18/25 History (2.5 mg base)/3 mL nebulization soln melatonin 10 mg tablet 12 mg PO QHS sleep 04/05/21 01/18/25 History pregabalin 150 mg capsule 150 mg PO TID nerve pain 04/05/21 01/19/25 History meclizine 25 mg tablet 25 mg PO DAILY PRN Vertigo 05/04/21 01/18/25 History docusate sodium 100 mg capsule 100 mg PO DAILY stool softener 08/17/21 Unknown History magnesium 250 mg tablet 400 mg PO DAILY supplement 08/17/21 01/19/25 History levocetirizine 5 mg tablet 5 mg PO DAILY allergies 11/07/21 01/18/25 History dapagliflozin propanediol 10 mg 10 mg PO DAILY diabetes 08/11/22 01/19/25 History tablet (Farxiga) multivitamin (Daily Multi-Vitamin 1 tab PO DAILY SUPPLEMENT 06/12/23 01/19/25 History tablet) tiotropium bromide 18 mcg capsule 18 mcg inhalation DAILY asthma 06/12/23 01/19/25 History with inhalation device azelastine 137 mcg-fluticasone 50 2 spray intranasal BID allergy 08/25/23 01/19/25 History mcg/spray nasal spray cholecalciferol (vitamin D3) 125 125 mcg PO DAILY vitamin-self care 08/25/23 01/19/25 History mcg (5,000 unit) tablet (Vitamin D3) Lactobacillus acidophilus 1 tab PO DAILY Supplement 09/29/23 01/19/25 History (Acidophilus chewable tablet) ondansetron 4 mg disintegrating 4 mg PO DAILY PRN nausea 09/29/23 Unknown History tablet zinc 100 mg tablet 100 mg PO DAILY supplement 09/29/23 01/19/25 History spironolactone 50 mg tablet 50 mg PO DAILY #30 tabs 02/16/24 01/18/25 Rx atorvastatin 40 mg tablet 40 mg PO QHS 30 days #30 tabs 09/17/24 01/18/25 Rx insulin glargine U-300 conc 300 35 unit (0.1167 mL) subcut BID 09/17/24 01/19/25 Rx unit/mL (1.5 mL) subcutaneous pen DIABETES 30 days #0 mL (Toujeo SoloStar U-300 Insulin) topiramate 50 mg tablet 50 mg PO BID 30 days #60 tabs 09/17/24 01/19/25 Rx furosemide 40 mg tablet 80 mg PO .COMPLEX diuresis 09/27/24 01/19/25 History ascorbate calcium (vitamin C) 500 2 g PO DAILY vitamin 01/03/25 01/19/25 History mg tablet diltiazem HCl 120 mg 120 mg PO .COMPLEX high blood 01/03/25 01/19/25 Rx capsule,extended release 24 hr pressure #30 caps (Cardizem CD) mecobalamin (vitamin B12) 5,000 5,000 mcg PO QDAY 01/03/25 01/19/25 History mcg chewable tablet oxycodone-acetaminophen 5 mg-325 1 tab PO BID PRN pain 01/03/25 01/19/25 History mg tablet fluoxetine 40 mg capsule 40 mg PO DAILY 01/19/25 01/19/25 History levofloxacin 750 mg tablet 750 mg PO DAILY 01/19/25 01/19/25 History linaclotide 145 mcg capsule 145 mcg PO DAILY 01/19/25 01/19/25 History (Linzess) omeprazole 40 mg capsule,delayed 40 mg PO BID gerd 01/19/25 01/19/25 History release rizatriptan 5 mg tablet 5 mg PO PRN 01/19/25 Unknown History semaglutide 2 mg/dose (8 mg/3 mL) 2 mg subcut QWEEK 01/19/25 01/16/25 History subcutaneous pen injector (Ozempic) warfarin 4 mg tablet 4 mg PO DAILY 01/19/25 01/18/25 History warfarin 5 mg tablet 5 mg PO DAILY 01/19/25 01/19/25 History Allergy/AdvReac Type Severity Reaction Status Date / Time clindamycin Allergy Rash Verified 01/19/25 14:53 erythromycin base Allergy Rash Verified 01/19/25 14:53 (Erythromycin Base) omalizumab (From Xolair) Allergy Chest Verified 01/19/25 14:53 tightness Penicillins Allergy Rash Verified 01/19/25 14:53 sulfamethoxazole (From Allergy Chest Verified 01/19/25 14:53 Bactrim) tightness trimethoprim (From Bactrim) Allergy Chest Verified 01/19/25 14:53 tightness Sulfa (Sulfonamide AdvReac Unknown Unknown Verified 01/19/25 14:53 Antibiotics) Family History Father Heart disease Diabetes CAD (coronary artery disease) Mother CAD (coronary artery disease) CVA (cerebral vascular accident) Diabetes Brother CAD (coronary artery disease) CVA (cerebral vascular accident) Diabetes Unknown Cancer Grandmother CVA (cerebral vascular accident) Diabetes Grandfather CVA (cerebral vascular accident) Grandmother Myocardial infarction Brother Diabetes Sister Diabetes Surgical History Status post cardiac pacemaker procedure History of laminectomy History of colonoscopy History of cardiac catheterization Aortic valve replaced History of left heart catheterization (LHC) (~01/19/21) H/O lumbosacral spine surgery History of rotator cuff surgery Hx of appendectomy History of hernia repair History of section History of neck surgery Social History household members: spouse housing: apartment pets and animals: Yes Smoking Status: Never smoker second hand exposure: No alcohol intake: current alcohol intake frequency: a few times a week substance use type: does not use caffeine: No what type of physical activity do you participate in: none do you feel safe at home: Yes ROS ROS ED Constitutional Constitutional ED: Denies chills, fever(s) or sweats ENT ENT ED: Denies sore throat Cardiovascular Cardiovascular: Reports chest pain, palpitations and racing heartbeat; Denies leg edema Respiratory/Chest Respiratory/Chest: Denies cough, dyspnea or dyspnea on exertion Gastrointestinal Gastrointestinal: Denies abdominal pain, diarrhea, nausea or vomiting Genitourinary Genitourinary ED: Denies dysuria, hematuria or urinary frequency Musculoskeletal Musculoskeletal: Denies back pain, extremity pain or neck pain Integumentary Denies rash or wounds Neurologic Neurologic: Denies headache(s), paresthesias or weakness EXAM Physical Exam Const Vital Signs: 01/19/25 14:54 01/19/25 15:03 01/19/25 15:18 Temperature 97 F L Temperature Source Temporal Pulse Rate 96 Respiratory Rate 18 Respiratory Effort Normal Blood Pressure 116/68 Blood Pressure Mean 84 Pulse Ox 96 Oxygen Delivery Method Room Air Room Air 01/19/25 15:56 01/19/25 17:00 01/19/25 18:34 Temperature Temperature Source Pulse Rate 86 89 83 Respiratory Rate 15 16 18 Respiratory Effort Blood Pressure 111/83 H 132/73 H 130/70 H Blood Pressure Mean 92 92 90 Pulse Ox 94 98 95 Oxygen Delivery Method Room Air Room Air Room Air 01/19/25 18:57 Temperature 97.9 F Temperature Source Pulse Rate 84 Respiratory Rate 16 Respiratory Effort Blood Pressure 127/82 H Blood Pressure Mean 97 Pulse Ox 97 Oxygen Delivery Method Positive well nourished and well developed General Appearance ED: well developed and NAD HEENT Reports moist mucous membranes normocephalic and atraumatic Eyes General Eye ED: Yes normal appearance of both eyes Neck full ROM Chest Wall Chest: Negative for tenderness Resp normal respiratory effort and normal air movement Effort and Inspection: symmetric chest movement; Negative for respiratory distress Cardio regular rate, regular rhythm and no murmurs Peripheral Pulses: pulses 2+ throughout GI normal to inspection, nondistended, normoactive bowel sounds and non-tender Palpation: Negative for guarding or rebound tenderness present Extremity normal to inspection General Extremety ED: Negative for edema or tenderness General Extremity: Negative for edema Neuro oriented x3 and no sensory deficits noted Sensorium / Orientation: awake and alert Skin no rashes or lesions noted and no wounds MDM MDM MDM Narrative Medical decision making narrative: Interventions / MDM: Differential diagnosis: Chest pain, palpitations Diagnosis considered but do not suspect: ACS however negative cardiac workup. Cardiac dysrhythmia however interrogation negative. My EKG interpretation: Atrial paced rhythm rate of 89, no acute findings. Imaging independently reviewed and interpreted by myself: 1 view chest x-ray: No acute process left-sided pacemaker device with leads intact. External documents reviewed: N/A Test considered but not ordered:N/A ED course: During evaluation reporting palpitations however noting paced rhythm in the 90s on the monitor. Will check EKG will check labs and cardiac enzymes. Will interrogate [employer] pacemaker. 1530: I discussed with [employer] sales representatives, no abnormalities seen on the pacemaker reporting this was a externally placed pacemaker. As noted heart block secondary to surgical procedure. Cardiac workup enzymes negative x 2. Patient reports she does drink coffee 1 to 2 cups every morning. Discussed decreasing caffeine intake to avoid stimulants. She will monitor symptoms. Outpatient follow-up with return precautions. All questions were answered. Re-evaluation: stable Disposition discussed with patient/family/significant other: Patient Case discussed with consulting clinician: N/A This note was generated with [employer] dictation software. It may contain incorrect words, spelling, and punctuation that were not noted in checking the note before signing. Lab Data Attestation: I reviewed the patient's lab results. Labs: Laboratory Results - last 24 hr 01/19/25 01/19/25 15:07 17:16 WBC 7.1 RBC 4.80 Hgb 12.8 Hct 40.9 MCV 85.2 MCH 26.7 L MCHC 31.3 L RDW Std Deviation 48.4 H RDW Coeff of Carmencita 15.5 H Plt Count 334 MPV 10.1 Immature Gran % (Auto) 0.700 Neut % (Auto) 59.9 Lymph % (Auto) 26.9 [place] % (Auto) 9.4 Eos % (Auto) 2.0 Baso % (Auto) 1.1 H Absolute Neuts (auto) 4.2 Absolute Lymphs (auto) 1.91 Nucleated RBC % 0 PT 22.4 H INR 1.9 Sodium 137 Potassium 4.2 Chloride 103 Carbon Dioxide 20.5 L Anion Gap 13 BUN 19 Creatinine 0.88 Est GFR (MDRD) Non-Af 73 BUN/Creatinine Ratio 21.6 H Glucose 105 H Calcium 8.8 Troponin T High Sens 14 Troponin T Hi Sens 2 Hr 13 Radiography Diagnostic Testing: Clinical Impression(s) from Imaging Studies Chest X-Ray 01/19/25 15:08 IMPRESSION: 1. No visible acute cardiopulmonary findings. 2. Additional description as above. Reading Location: [id number] Discharge Plan Triage Chief Complaint: Chest Pain ED Provider: Vaughn Ding Dx/Rx/DC Orders Clinical Impression: Chest pain, Chronic anticoagulation, Palpitations Instructions: ED Chest Pain, Uncertain Cause, ED Palpitations Prescriptions: No Action trazodone 50 mg tablet 50 mg PO QHS albuterol sulfate 2.5 mg /3 mL (0.083 %) solution for nebulization 2.5 mg INHALATION Q2H PRN PRN (Reason: dyspnea, wheezing) Qty: 180 6RF albuterol sulfate 90 mcg/actuation HFA aerosol inhaler 2 inh INHALATION Q4H PRN PRN (Reason: Sob &/Or Wheezing) Qty: 18 6RF montelukast 10 mg tablet 10 mg PO DAILY Qty: 30 6RF alendronate 70 mg tablet 70 mg PO WE meclizine 25 mg tablet 25 mg PO DAILY PRN (Reason: Vertigo) magnesium 250 mg tablet 400 mg PO DAILY levocetirizine 5 mg tablet 5 mg PO DAILY ascorbate calcium (vitamin C) 500 mg tablet 2 g PO DAILY spironolactone 50 mg tablet 50 mg PO DAILY Qty: 30 11RF Rx Instructions: Take at evening meal with Losartan mecobalamin (vitamin B12) 5,000 mcg tablet,chewable 5,000 mcg PO QDAY diltiazem HCl [Cardizem CD] 120 mg capsule,extended release 24hr 120 mg PO .COMPLEX Qty: 30 11RF Rx Instructions: 120 mg orally daily PRN BP > 170 per PCP.; docusate sodium 100 mg capsule 100 mg PO DAILY Patient Comments: Stool softner [id number]-boron 1 EACH tablet,chewable 1 ea PO DAILY fenofibrate nanocrystallized 145 MG tablet 72.5 mg PO QHS ipratropium-albuterol 0.5 mg-3 mg(2.5 mg base)/3 mL solution for nebulization 3 ml INHALATION BID Rx Instructions: Continue until re-evaluation per pulmonary with possible transition back to home regimen at that time. budesonide-formoterol 160-4.5 mcg/actuation HFA aerosol inhaler 2 puff INHALATION BID beclomethasone dipropionate 80 mcg/actuation HFA aerosol breath activated 1 inh inhalation BID furosemide 40 mg tablet 80 mg PO .COMPLEX Rx Instructions: 80 mg orally BID WE; take on Friday, Friday, Friday pregabalin 150 mg capsule 150 mg PO TID melatonin 10 mg Tablet 12 mg PO QHS dapagliflozin propanediol [Farxiga] 10 mg tablet 10 mg PO DAILY tiotropium bromide 18 mcg capsule, w/inhalation device 18 mcg inhalation DAILY Rx Instructions: puncture 1 cap using device; one dose = 2 inhalations multivitamin [Daily Multi-Vitamin] Tablet 1 tab PO DAILY cholecalciferol (vitamin D3) [Vitamin D3] 125 mcg (5,000 unit) tablet 125 mcg PO DAILY azelastine-fluticasone 137-50 mcg/spray spray,non-aerosol 2 spray intranasal BID Rx Instructions: administer into each nostril ondansetron 4 mg tablet,disintegrating 4 mg PO DAILY PRN (Reason: nausea) Acidophilus Tablet,Chewable 1 tab PO DAILY Patient Comments: 175 mg tab zinc 100 mg tablet 100 mg PO DAILY oxycodone-acetaminophen 5-325 mg tablet 1 tab PO BID PRN (Reason: pain) topiramate 50 mg Tablet 50 mg PO BID 30 Days Qty: 60 0RF insulin glargine U-300 conc [Toujeo SoloStar U-300 Insulin] 300 unit/mL (1.5 mL) insulin pen 35 unit SUBCUT BID 30 Days Qty: 0 0RF Patient Comments: INJECT 50 [id number] JUNIOR Rx Instructions: TOUJEO atorvastatin 40 mg Tablet 40 mg PO QHS 30 Days Qty: 30 0RF fluoxetine 40 mg capsule 40 mg PO DAILY warfarin 4 mg tablet 4 mg PO DAILY Rx Instructions: WITH 5MG TAB levofloxacin 750 mg tablet 750 mg PO DAILY rizatriptan 5 mg tablet 5 mg PO PRN Linzess 145 mcg capsule 145 mcg PO DAILY Ozempic 2 mg/dose (8 mg/3 mL) pen injector 2 mg subcut QWEEK warfarin 5 mg tablet 5 mg PO DAILY Rx Instructions: WITH 4MG TAB omeprazole 40 mg capsule,delayed release(DR/EC) 40 mg PO BID epinephrine 0.3 mg/0.3 mL auto-injector 0.3 mg IM X1 PRN (Reason: Anaphylaxis) Qty: 1 0RF Primary Care Provider: Ophelia Soria Referrals: Ophelia Soria DO [Primary Care Provider] - 3-5 Days Activity Restrictions/Additional Instructions: Cardiac workup negative. EKG paced rhythm. Your pacemaker interrogated with no abnormal findings. INR level today 1.9. Continue your warfarin therapy. Decrease your caffeine intake. Follow your PCP and your cardiology team. If you develop worsening or recurrent symptoms, return to the ED for reevaluation. Print Language: Telugu Disposition Disposition: Home, Self Care Discharge Date/Time: 01/19/25 18:58
--- NOTE | 2025-01-19 15:15 | EKG12_ITS ---
Test Reason : Blood Pressure : */* mmHG Vent. Rate : 89 BPM Atrial Rate : 89 BPM P-R Int : 160 ms QRS Dur : 196 ms QT Int : 464 ms P-R-T Axes : 49 -1 118 degrees QTcB Int : 564 ms Atrial-sensed ventricular-paced rhythm Abnormal ECG Confirmed by DARION MAURICIO, ADITHYA ([id number]), television news video editor LEIGHTON STALLWORTH ([id number]) on 01/20/2025 8:39:51 AM Referred By: Confirmed By: ADITHYA ORLANDO MD
[2025-01-19 15:22] LABS: Absolute Lymphocyte Count 1.91 X10^3/uL (0.83-4.51); Absolute Neutrophil Count 4.2 X10^3/uL (2.0-7.7); Basophil# 0.08 X10^3/uL; Basophil% 1.1 % (0-1); Eosinophil# 0.14 X10^3/uL; Hematocrit 40.9 % (37-47); Hemoglobin 12.8 g/dL (12.0-15.0); Lymphocyte # 1.91 X10^3/ul (0.83-4.51); Lymphocyte % 26.9 % (19-41); Mean Corp Hgb Conc 31.3 g/dL (32-36); Mean Corpuscular Hgb 26.7 pg (27.0-32.0); Mean Corpuscular Volume 85.2 fL (81-99); Mean Platelet Vol. 10.1 fl (6.2-12.0); Monocyte# 0.67 X10^3/uL; Monocyte% 9.4 % (0-10); NRBC Flagged by Analyzer 0 % (0-5); Neutrophil # 4.24 X10^3/uL (2.7-7.7); Neutrophil % 59.9 % (47-70); Platelet Count 334 K/mm3 (150-450); RBC Distribution Width CV 15.5 % (11.6-14.6); RBC Distribution Width SD 48.4 fl (35.1-43.9); White Blood Count 7.1 K/mm3 (4.4-11.0)
[2025-01-19 15:31] LABS: International Normalized Ratio 1.9; Prothrombin Time (Protime)PT. 22.4 SECONDS (11.7-14.9)
[2025-01-19 15:56] VITALS: BP 111/83; PULSE 86; RESP 15; O2SAT 94
[2025-01-19 16:02] LABS: Anion Gap 13 (5-15); BUN 19 mg/dL (4-19); BUN/Creat Ratio 21.6 RATIO (10-20); Calcium,Total 8.8 mg/dL (7.6-11.0); Carbon Dioxide 20.5 mmol/L (21.0-32.0); Chloride 103 mmol/L (98-108); Creatinine, Serum 0.88 mg/dL (0.70-1.20); EST Glomerular Filtration Rate 73 (>60); Glucose 105 mg/dL (70-99); Potassium 4.2 mmol/L (3.3-5.1); Sodium Level 137 mmol/L (133-145); Troponin T High Sensitivity 14 ng/L (<=14)
[2025-01-19 17:00] VITALS: BP 132/73; PULSE 89; RESP 16; O2SAT 98
[2025-01-19 18:04] LABS: Troponin T High Sens 2 HR 13 ng/L (<=14)
[2025-01-19 18:34] VITALS: BP 130/70; PULSE 83; RESP 18; O2SAT 95
[2025-01-19 18:57] VITALS: BP 127/82; PULSE 84; RESP 16; TEMP 36.6; O2SAT 97
== END 2025-01-19 18:58 | disposition home or self-care (01) ==
PROVIDERS: Emergency Provider Emergency Medicine; PCP Internal Medicine; Visit Provider Emergency Medicine
DX: R07.89 Other chest pain (principal); I11.0 Hypertensive heart disease with heart failure; I50.30 Unspecified diastolic (congestive) heart failure; Z79.4 Long term (current) use of insulin; E11.42 Type 2 diabetes mellitus with diabetic polyneuropathy; R00.2 Palpitations; I25.10 Atherosclerotic heart disease of native coronary artery without angina pectoris; E78.00 Pure hypercholesterolemia, unspecified; Z95.0 Presence of cardiac pacemaker; Z79.01 Long term (current) use of anticoagulants; Z79.85 Long-term (current) use of injectable non-insulin antidiabetic drugs; Z79.899 Other long term (current) drug therapy; Z86.711 Personal history of pulmonary embolism; Z86.718 Personal history of other venous thrombosis and embolism; Z86.16 Personal history of COVID-19
CPT/HCPCS: 71045; 80048; 84484; 85025; 85610; 93005; 99284; A4216

== ENCOUNTER 2025-02-09 14:15 | Outpatient (RCR) | payer MEDICARE, MEDICAID, SELFPAY ==
[2025-01-13 11:03] VITALS: BMI 39.6
== END 2025-02-09 23:59 ==
LOC: CR 14:15
PROVIDERS: PCP Internal Medicine
DX: Z95.2 Presence of prosthetic heart valve (principal); Z48.812 Encounter for surgical aftercare following surgery on the circulatory system
CPT/HCPCS: 93798

== ENCOUNTER 2025-02-14 15:28 | Emergency (ER) | payer MEDICARE, MEDICAID, SELFPAY ==
[2025-02-10 11:15] VITALS: BMI 39.7
[2025-02-14 15:28] VITALS: BP 118/71; PULSE 83; RESP 15; TEMP 36.4; O2SAT 98
[2025-02-14 15:30] VITALS: O2SAT 92
--- NOTE | 2025-02-14 15:30 | EKG12_ITS ---
Test Reason : CP Blood Pressure : */* mmHG Vent. Rate : 81 BPM Atrial Rate : 81 BPM P-R Int : 162 ms QRS Dur : 172 ms QT Int : 458 ms P-R-T Axes : 28 -26 117 degrees QTcB Int : 532 ms Atrial-sensed ventricular-paced rhythm Abnormal ECG Confirmed by Maxwell Hall ([id number]), makeup editor LEIGHTON STALLWORTH ([id number]) on 02/18/2025 1:19:21 PM Referred By: MEGHANA/SHO Confirmed By: Maxwell Hall
[2025-02-14 16:18] LABS: Absolute Lymphocyte Count 2.04 X10^3/uL (0.83-4.51); Absolute Neutrophil Count 4.3 X10^3/uL (2.0-7.7); Basophil# 0.09 X10^3/uL; Basophil% 1.2 % (0-1); Eosinophil# 0.18 X10^3/uL; Eosinophils% 2.4 % (0-5); Hematocrit 44.2 % (37-47); Hemoglobin 13.9 g/dL (12.0-15.0); Lymphocyte # 2.04 X10^3/ul (0.83-4.51); Lymphocyte % 27.5 % (19-41); Mean Corp Hgb Conc 31.4 g/dL (32-36); Mean Corpuscular Hgb 26.2 pg (27.0-32.0); Mean Corpuscular Volume 83.4 fL (81-99); Mean Platelet Vol. 10.4 fl (6.2-12.0); Monocyte# 0.73 X10^3/uL; Monocyte% 9.9 % (0-10); NRBC Flagged by Analyzer 0 % (0-5); Neutrophil # 4.29 X10^3/uL (2.7-7.7); Neutrophil % 57.9 % (47-70); Platelet Count 291 K/mm3 (150-450); RBC Distribution Width CV 16.2 % (11.6-14.6); White Blood Count 7.4 K/mm3 (4.4-11.0)
[2025-02-14 16:21] LABS: International Normalized Ratio 1.7; Prothrombin Time (Protime)PT. 20.5 SECONDS (11.7-14.9)
--- NOTE | 2025-02-14 16:22 | RAD_ITS ---
PROCEDURE: CHEST 1 VIEW (PORTABLE) 02/14/2025 REASON FOR EXAM: CHEST PAIN TECHNIQUE: Frontal view of the chest. COMPARISON: 01/19/2025 FINDINGS: Hardware: Stable left-sided ICD. Partially imaged cervical fusion. Status post median sternotomy. Right shoulder arthroplasty. Heart: Stable mild cardiomegaly. Lungs: No focal consolidation. No pneumothorax. No pleural effusion. Bones: Degenerative changes are identified within the thoracic spine. Other: RAD/Chest 1 View (Portable) IMPRESSION: No Acute Findings. [facility]
[2025-02-14 16:28] VITALS: BP 129/88; PULSE 80; RESP 16; O2SAT 92
[2025-02-14 16:37] LABS: Anion Gap 11 (5-15); BUN 17 mg/dL (4-19); BUN/Creat Ratio 20.2 RATIO (10-20); Calcium,Total 9.1 mg/dL (7.6-11.0); Carbon Dioxide 23.6 mmol/L (21.0-32.0); Chloride 102 mmol/L (98-108); Creatinine, Serum 0.84 mg/dL (0.70-1.20); EST Glomerular Filtration Rate 77 (>60); Glucose 80 mg/dL (70-99); Potassium 4.6 mmol/L (3.3-5.1); Sodium Level 136 mmol/L (133-145); Troponin T High Sensitivity 14 ng/L (<=14)
--- NOTE | 2025-02-14 16:44 | ED.VIS.CHEST ---
HPI History of Present Illness Chief Complaint: Chest Pain Informant: patient Onset/Context/Timing Onset: Today and Yesterday Timing: Continuous Quality: Positive for Sharp Location: Right Chest Current Severity: Mild Maximum Severity: Mild Worsened By: Movement of Arm and Movement of Torso Relieved By: Nothing Associated Symptoms: Positive for Lightheadedness; Negative for Nausea, Vomiting, Acid Reflux or Palpitations Narrative Narrative: 64-year-old female history of COPD, PE, CAD, diabetes she is on warfarin. She had a prior CABG done on 10/19/2024 at [facility]. Dates that yesterday she developed right-sided chest pain. She thinks she may have injured something in her chest. She denies any fall or trauma. She just recently started cardiac rehab today. She said when she was doing the elliptical machine in cardiac rehab she felt a pulling on her chest she could not finish and they sent her down to the emergency department. Prior Similar Symptoms: No Recent Illness/Hospitalization: No CVD Risk Factors: Positive for Diabetes PE Risk Factors: Negative for Recent Travel/Surgery, Recent Immobilization, Prior DVT or PE, Cancer or OCP + Smoking + >/=35 TAD Risk Factors: Negative for Marfan's Syndrome [facility] Medical History Surgical complete heart block Acute on chronic hypoxic respiratory failure COPD exacerbation Acute CVA (cerebrovascular accident) Obesity (BMI 30-39.9) Subtherapeutic international normalized ratio (INR) Migraine headache Rectal bleeding Peripheral neuropathy Positive FIT (fecal immunochemical test) History of transcatheter aortic valve replacement (TAVR) (~04/19/21) COVID-19 Depression Anxiety Discoloration of skin History of steroid therapy Insulin dependent diabetes mellitus Diabetes Arthritis High cholesterol Pulmonary embolism Easy bruising Excessive bleeding Restless legs Back pain TIA (transient ischemic attack) Non-smoker BiPAP (biphasic positive airway pressure) dependence On home oxygen therapy Shortness of breath on exertion Leg cramps History of pain when walking History of edema History of stress test Hx of transesophageal echocardiography (YOLANDA) for monitoring History of echocardiogram Cardiology follow-up encounter Rotator cuff arthropathy of right shoulder History of DVT (deep vein thrombosis) Back pain with sciatica Nonrheumatic aortic (valve) stenosis Essential hypertension Carotid artery disease Atherosclerotic heart disease of [place] coronary artery without angina pectoris Personal history of anaphylaxis Bilateral carotid bruits Body mass index 45.0-49.9, adult Diastolic heart failure COPD (chronic obstructive pulmonary disease) CHELSEY treated with BiPAP History of pulmonary embolism Morbid obesity Type 2 diabetes mellitus Asthma Home Medications ?Medication ?Instructions ?Recorded ?Last Taken ?Type calcium 600 mg-D3 800 unit-mag 40 1 ea PO DAILY vitamins 05/27/16 01/18/25 History ua-onxo-mtvw-angel-boron chew tablet fenofibrate nanocrystallized 145 72.5 mg PO QHS cholesterol 04/26/19 01/18/25 History mg tablet trazodone 50 mg tablet 50 mg PO QHS sleep 08/09/19 01/18/25 History epinephrine 0.3 mg/0.3 mL 0.3 mg (0.3 mL) IM X1 PRN 01/18/20 Unknown Rx injection, auto-injector Anaphylaxis #1 ea albuterol sulfate 2.5 mg/3 mL 2.5 mg (3 mL) inhalation Q2H PRN 04/24/20 01/19/25 Rx (0.083 %) solution for nebulization PRN dyspnea, wheezing #180 mL albuterol sulfate 90 mcg/actuation 2 inh inhalation Q4H PRN PRN Sob 04/24/20 01/19/25 Rx aerosol inhaler &/Or Wheezing #18 grams montelukast 10 mg tablet 10 mg PO DAILY allergies/asthma 12/07/20 01/19/25 Rx #30 tabs alendronate 70 mg tablet 70 mg PO WE bone health 12/21/20 01/12/25 History beclomethasone dipropionate 80 1 inh inhalation BID Asthma 03/22/21 01/19/25 History mcg/actuation HFA breath activated aerosol budesonide-formoterol HFA 160 2 puff inhalation BID asthma 03/22/21 01/19/25 History mcg-4.5 mcg/actuation aerosol inhaler ipratropium 0.5 mg-albuterol 3 mg 3 ml inhalation BID asthma 03/22/21 01/18/25 History (2.5 mg base)/3 mL nebulization soln melatonin 10 mg tablet 12 mg PO QHS sleep 04/05/21 01/18/25 History pregabalin 150 mg capsule 150 mg PO TID nerve pain 04/05/21 01/19/25 History meclizine 25 mg tablet 25 mg PO DAILY PRN Vertigo 05/04/21 01/18/25 History docusate sodium 100 mg capsule 100 mg PO DAILY stool softener 08/17/21 Unknown History magnesium 250 mg tablet 400 mg PO DAILY supplement 08/17/21 01/19/25 History levocetirizine 5 mg tablet 5 mg PO DAILY allergies 11/07/21 01/18/25 History dapagliflozin propanediol 10 mg 10 mg PO DAILY diabetes 08/11/22 01/19/25 History tablet (Farxiga) multivitamin (Daily Multi-Vitamin 1 tab PO DAILY SUPPLEMENT 06/12/23 01/19/25 History tablet) tiotropium bromide 18 mcg capsule 18 mcg inhalation DAILY asthma 06/12/23 01/19/25 History with inhalation device azelastine 137 mcg-fluticasone 50 2 spray intranasal BID allergy 08/25/23 01/19/25 History mcg/spray nasal spray cholecalciferol (vitamin D3) 125 125 mcg PO DAILY vitamin-self care 08/25/23 01/19/25 History mcg (5,000 unit) tablet (Vitamin D3) Lactobacillus acidophilus 1 tab PO DAILY Supplement 09/29/23 01/19/25 History (Acidophilus chewable tablet) ondansetron 4 mg disintegrating 4 mg PO DAILY PRN nausea 09/29/23 Unknown History tablet zinc 100 mg tablet 100 mg PO DAILY supplement 09/29/23 01/19/25 History spironolactone 50 mg tablet 50 mg PO DAILY #30 tabs 02/16/24 01/18/25 Rx atorvastatin 40 mg tablet 40 mg PO QHS 30 days #30 tabs 09/17/24 01/18/25 Rx insulin glargine U-300 conc 300 35 unit (0.1167 mL) subcut BID 09/17/24 01/19/25 Rx unit/mL (1.5 mL) subcutaneous pen DIABETES 30 days #0 mL (Toujeo SoloStar U-300 Insulin) topiramate 50 mg tablet 50 mg PO BID 30 days #60 tabs 09/17/24 01/19/25 Rx furosemide 40 mg tablet 80 mg PO .COMPLEX diuresis 09/27/24 01/19/25 History ascorbate calcium (vitamin C) 500 2 g PO DAILY vitamin 01/03/25 01/19/25 History mg tablet mecobalamin (vitamin B12) 5,000 5,000 mcg PO QDAY 01/03/25 01/19/25 History mcg chewable tablet oxycodone-acetaminophen 5 mg-325 1 tab PO BID PRN pain 01/03/25 01/19/25 History mg tablet fluoxetine 40 mg capsule 40 mg PO DAILY 01/19/25 01/19/25 History levofloxacin 750 mg tablet 750 mg PO DAILY 01/19/25 01/19/25 History linaclotide 145 mcg capsule 145 mcg PO DAILY 01/19/25 01/19/25 History (Linzess) omeprazole 40 mg capsule,delayed 40 mg PO BID gerd 01/19/25 01/19/25 History release rizatriptan 5 mg tablet 5 mg PO PRN 01/19/25 Unknown History semaglutide 2 mg/dose (8 mg/3 mL) 2 mg subcut QWEEK 01/19/25 01/16/25 History subcutaneous pen injector (Ozempic) warfarin 4 mg tablet 4 mg PO DAILY 01/19/25 01/18/25 History warfarin 5 mg tablet 5 mg PO DAILY 01/19/25 01/19/25 History losartan 25 mg tablet 25 mg PO QDAY #90 tabs 02/02/25 Unknown Rx metoprolol tartrate 25 mg tablet 25 mg PO BID #180 tabs 02/02/25 Unknown Rx diltiazem HCl 180 mg 180 mg PO QPM 02/14/25 Unknown History capsule,extended release 24 hr Allergy/AdvReac Type Severity Reaction Status Date / Time clindamycin Allergy Rash Verified 02/14/25 15:28 erythromycin base Allergy Rash Verified 02/14/25 15:28 (Erythromycin Base) omalizumab (From Xolair) Allergy Chest Verified 02/14/25 15:28 tightness Penicillins Allergy Rash Verified 02/14/25 15:28 sulfamethoxazole (From Allergy Chest Verified 02/14/25 15:28 Bactrim) tightness trimethoprim (From Bactrim) Allergy Chest Verified 02/14/25 15:28 tightness Sulfa (Sulfonamide AdvReac Unknown Unknown Verified 02/14/25 15:28 Antibiotics) Family History Father Heart disease Diabetes CAD (coronary artery disease) Mother CAD (coronary artery disease) CVA (cerebral vascular accident) Diabetes Brother CAD (coronary artery disease) CVA (cerebral vascular accident) Diabetes Unknown Cancer Grandmother CVA (cerebral vascular accident) Diabetes Grandfather CVA (cerebral vascular accident) Grandmother Myocardial infarction Brother Diabetes Sister Diabetes Surgical History Status post cardiac pacemaker procedure History of laminectomy History of colonoscopy History of cardiac catheterization Aortic valve replaced History of left heart catheterization (LHC) (~01/19/21) H/O lumbosacral spine surgery History of rotator cuff surgery Hx of appendectomy History of hernia repair History of section History of neck surgery Social History household members: spouse housing: apartment pets and animals: Yes Smoking Status: Never smoker second hand exposure: No alcohol intake: current alcohol intake frequency: a few times a week substance use type: does not use caffeine: No what type of physical activity do you participate in: none do you feel safe at home: Yes ROS ROS ED ROS Narrative Right chest wall pain. Not necessarily associated with exertion but worse with movement of her arm and chest. Constitutional Constitutional ED: Denies chills Eyes Eyes: Reports none ENT ENT ED: Denies ear pain Cardiovascular Cardiovascular: Reports as per HPI and chest pain; Denies palpitations or racing heartbeat Respiratory/Chest Respiratory/Chest: Denies cough, dyspnea or dyspnea on exertion Gastrointestinal Gastrointestinal: Denies abdominal pain Genitourinary Genitourinary ED: Denies dysuria or hematuria Musculoskeletal Musculoskeletal: Denies arthralgias Integumentary Denies abscess Neurologic Neurologic: Denies headache(s) Psychiatric Psychiatric: Denies anxiety Endocrine Endocrinology: Denies cold intolerance Hematologic/Lymphatic Hematologic/Lymphatic: Denies easy bleeding, easy bruising or lymphadenopathy Allergic/Immunologic Allergic/Immunologic ED: Denies mouth swelling, tongue swelling or urticaria EXAM Physical Exam Narrative Exam Narrative: 64-year-old female vital signs are stable afebrile. Pulse ox 98% on room air no hypoxia. Patient is in no distress. H EENT exam unremarkable. Pupils round react to light. Mytrex members. Neck nontender no JVD. No lymphadenopathy. Lungs clear to auscultation bilaterally. Heart paced rhythm rate about 80. No murmur. Chest wall she has reproducible chest wall pain on the right. It is the pain she is having. It is definitely tender to palpation. The chest wall appears normal. She has a very well-healed sternotomy incision from October. There is no redness or discharge. It is closed. There is no crepitance or discoloration of her chest wall. There is no bruising. There is no bony deformity or tenderness. This is consistent with a chest wall strain. Abdomen is soft nontender. No peritoneal signs. Moving all 4 extremities. 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 Normal dorsi plantarflexion. Calves are nontender without edema or cords. Neurologically she is awake alert no focal motor deficits. Answering questions following commands. Const Vital Signs: 02/14/25 15:28 02/14/25 15:30 02/14/25 16:12 Temperature 97.6 F L Temperature Source Temporal Pulse Rate 83 Respiratory Rate 15 Respiratory Effort Normal Non-Labored Blood Pressure 118/71 Blood Pressure Mean 86 Pulse Ox 98 92 Oxygen Delivery Method Room Air Room Air Positive well nourished and well developed; Negative for cachectic, contractures or unkempt General Appearance ED: well developed and NAD; Negative for unkempt, cachectic, contractures or pallor Nutritional Appearance: Negative for cachectic HEENT Reports moist mucous membranes normocephalic and atraumatic Eyes PERRL General Eye ED: Negative for pale conjunctiva or scleral icterus Neck no lymphadenopathy, supple and no JVD General: Negative for tenderness Chest Wall inspection of chest normal; Negative for palpation of chest normal Chest Narrative: Palpation of right chest wall is exquisite pain consistent with chest wall strain. Otherwise his skin and chest wall appears normal. Chest: tenderness Resp normal respiratory effort and clear to auscultation bilaterally Effort and Inspection: Negative for respiratory distress Auscultation: Negative for rales, rhonchi, wheezes or diminished lung sounds Cardio regular rate, regular rhythm, S1 normal heart sound, S2 normal heart sound and no murmurs Rate: Negative for bradycardia or tachycardic Peripheral Pulses: pulses 2+ throughout GI normal to inspection, nondistended, normoactive bowel sounds, soft to palpation, non-tender, non-distended and no masses Back/Spine no CVA tenderness and no thoracic nor lumbar tenderness General Back: Negative for CVA tenderness Cervical Spine: Negative for cervical spine tenderness Extremity normal to inspection General Extremety ED: Negative for edema, pulses abnormal or tenderness General Extremity: Negative for edema or pulses abnormal Neuro oriented x3 and CN's II-XII intact bilaterally Sensorium / Orientation: awake, alert, oriented to person, oriented to place and oriented to time; Negative for confused, lethargic or stuporous Motor Exam: strength 5/5 throughout Psych mental status grossly normal Appearance: Negative for unkempt Attitude: No agitated Mood & Affect: Negative for depressed, anxious or tearful Skin no rashes or lesions noted and no wounds General Skin Exam: Negative for jaundice or pallor Rashes: No rashes noted Trauma: Negative for abrasion or laceration Heart Score History: Slightly/Non-Suspicious ECG: Normal (Paced.) Age: >/= 65 years Risk Factors: >/= 3 Risk Factors or History of CAD Troponin: </= Normal Limit Score: 4 MDM MDM MDM Narrative Medical decision making narrative: 64-year-old female who had bypass surgery in October. Presents today with pain at his chest wall pain exquisitely tender on exam. Consistent with a chest wall strain. There is no signs of infection or no significant history of trauma other than cardiac rehab and she has been carrying some things lately. She underwent a cardiac workup due to nursing protocol. Repeat exam patient is doing well at 4:52 PM. This is all consistent with musculoskeletal chest pain. It is reproducible. Cardiac workup is negative. She will be discharged home. Ice to the area. Tylenol for pain. Follow-up. History & Record Review Discussion w/independent historian: Patient Additional record(s) reviewed:: Prior inpatient record, Prior outpatient record, Prior ED visit and Prior labs Lab Data Attestation: I reviewed the patient's lab results. Lab results narrative: CBC unremarkable white count of 7. H&H 13 and 44. Platelets 291. PT/INR of 20 and 1.7 she is on warfarin she is subtherapeutic. Electrolytes show sodium 136. Gap 11. Normal BUN of 17 creatinine 0.8. Glucose 80. Her initial troponin is only 14. Labs: Laboratory Results - last 24 hr 02/14/25 16:01 WBC 7.4 RBC 5.30 Hgb 13.9 Hct 44.2 MCV 83.4 MCH 26.2 L MCHC 31.4 L RDW Std Deviation 49.0 H RDW Coeff of Carmencita 16.2 H Plt Count 291 MPV 10.4 Immature Gran % (Auto) 1.100 H Neut % (Auto) 57.9 Lymph % (Auto) 27.5 [place] % (Auto) 9.9 Eos % (Auto) 2.4 Baso % (Auto) 1.2 H Absolute Neuts (auto) 4.3 Absolute Lymphs (auto) 2.04 Nucleated RBC % 0 PT 20.5 H INR 1.7 Sodium 136 Potassium 4.6 Chloride 102 Carbon Dioxide 23.6 Anion Gap 11 BUN 17 Creatinine 0.84 Est GFR (MDRD) Non-Af 77 BUN/Creatinine Ratio 20.2 H Glucose 80 Calcium 9.1 Troponin T High Sens 14 Radiography Chest X-Ray - ED: Read by ED Physician, Read by Radiologist, Heart, Lungs, Mediastinum, Bony Structures, No Acute Disease and Chronic Changes Diagnostic Testing: Clinical Impression(s) from Imaging Studies Chest X-Ray 02/14/25 16:22 IMPRESSION: No Acute Findings. [facility] Chest x-ray, portable, single view interpreted by myself and radiologist shows no acute abnormality. Left-sided pacemaker. Right prosthetic shoulder surgery hardware in her C-spine. Normal cardiac silhouette. Normal mediastinum. Normal lung gonzalez. Chronic changes. Rhythm Strip Rhythm Strip: paced Rate: 81 Ectopy: None EKG Initial EKG: Attestation: I personally reviewed and interpreted this EKG as follows: Interpretation: Paced Comments: Paced rhythm rate 81. No acute change from prior from January Discharge Plan Triage Chief Complaint: Chest Pain Other Complaint: Dizziness ED Provider: Jaya Douglass Dx/Rx/DC Orders Clinical Impression: Acute chest wall pain, History of diabetes mellitus, History of CAD (coronary artery disease), Hx of coronary artery bypass graft Instructions: ED Chest Wall Strain Prescriptions: No Action trazodone 50 mg tablet 50 mg PO QHS albuterol sulfate 2.5 mg /3 mL (0.083 %) solution for nebulization 2.5 mg INHALATION Q2H PRN PRN (Reason: dyspnea, wheezing) Qty: 180 6RF albuterol sulfate 90 mcg/actuation HFA aerosol inhaler 2 inh INHALATION Q4H PRN PRN (Reason: Sob &/Or Wheezing) Qty: 18 6RF montelukast 10 mg tablet 10 mg PO DAILY Qty: 30 6RF alendronate 70 mg tablet 70 mg PO WE meclizine 25 mg tablet 25 mg PO DAILY PRN (Reason: Vertigo) magnesium 250 mg tablet 400 mg PO DAILY levocetirizine 5 mg tablet 5 mg PO DAILY ascorbate calcium (vitamin C) 500 mg tablet 2 g PO DAILY spironolactone 50 mg tablet 50 mg PO DAILY Qty: 30 11RF Rx Instructions: Take at evening meal with Losartan mecobalamin (vitamin B12) 5,000 mcg tablet,chewable 5,000 mcg PO QDAY losartan 25 mg tablet 25 mg PO QDAY Qty: 90 3RF metoprolol tartrate 25 mg tablet 25 mg PO BID Qty: 180 3RF docusate sodium 100 mg capsule 100 mg PO DAILY Patient Comments: Stool softner [id number]-[id number]-boron 1 EACH tablet,chewable 1 ea PO DAILY fenofibrate nanocrystallized 145 MG tablet 72.5 mg PO QHS ipratropium-albuterol 0.5 mg-3 mg(2.5 mg base)/3 mL solution for nebulization 3 ml INHALATION BID Rx Instructions: Continue until re-evaluation per pulmonary with possible transition back to home regimen at that time. budesonide-formoterol 160-4.5 mcg/actuation HFA aerosol inhaler 2 puff INHALATION BID beclomethasone dipropionate 80 mcg/actuation HFA aerosol breath activated 1 inh inhalation BID furosemide 40 mg tablet 80 mg PO .COMPLEX Rx Instructions: 80 mg orally BID ; take on Friday, Friday, Friday pregabalin 150 mg capsule 150 mg PO TID melatonin 10 mg Tablet 12 mg PO QHS dapagliflozin propanediol [Farxiga] 10 mg tablet 10 mg PO DAILY tiotropium bromide 18 mcg capsule, w/inhalation device 18 mcg inhalation DAILY Rx Instructions: puncture 1 cap using device; one dose = 2 inhalations multivitamin [Daily Multi-Vitamin] Tablet 1 tab PO DAILY cholecalciferol (vitamin D3) [Vitamin D3] 125 mcg (5,000 unit) tablet 125 mcg PO DAILY azelastine-fluticasone 137-50 mcg/spray spray,non-aerosol 2 spray intranasal BID Rx Instructions: administer into each nostril ondansetron 4 mg tablet,disintegrating 4 mg PO DAILY PRN (Reason: nausea) Acidophilus Tablet,Chewable 1 tab PO DAILY Patient Comments: 175 mg tab zinc 100 mg tablet 100 mg PO DAILY oxycodone-acetaminophen 5-325 mg tablet 1 tab PO BID PRN (Reason: pain) topiramate 50 mg Tablet 50 mg PO BID 30 Days Qty: 60 0RF insulin glargine U-300 conc [Toujeo SoloStar U-300 Insulin] 300 unit/mL (1.5 mL) insulin pen 35 unit SUBCUT BID 30 Days Qty: 0 0RF Patient Comments: INJECT 50 [id number] JUNIOR Rx Instructions: TOUJEO atorvastatin 40 mg Tablet 40 mg PO QHS 30 Days Qty: 30 0RF fluoxetine 40 mg capsule 40 mg PO DAILY warfarin 4 mg tablet 4 mg PO DAILY Rx Instructions: WITH 5MG TAB levofloxacin 750 mg tablet 750 mg PO DAILY rizatriptan 5 mg tablet 5 mg PO PRN Linzess 145 mcg capsule 145 mcg PO DAILY Ozempic 2 mg/dose (8 mg/3 mL) pen injector 2 mg subcut QWEEK warfarin 5 mg tablet 5 mg PO DAILY Rx Instructions: WITH 4MG TAB omeprazole 40 mg capsule,delayed release(DR/EC) 40 mg PO BID diltiazem HCl 180 mg capsule,extended release 24hr 180 mg PO QPM epinephrine 0.3 mg/0.3 mL auto-injector 0.3 mg IM X1 PRN (Reason: Anaphylaxis) Qty: 1 0RF Primary Care Provider: Ophelia Soria Referrals: Ophelia Soria, [Primary Care Provider] - 1 Week if not improving Activity Restrictions/Additional Instructions: Your labs, chest x-ray and EKG look good. The pain is reproducible in your chest wall consistent with chest wall strain. Ice to your chest wall. Tylenol for pain. And this should progressively improve. Follow-up with your doctor if not improving or return if worse. Print Language: Swiss Disposition Disposition: Home, Self Care
[2025-02-14 16:55] VITALS: BP 129/88; PULSE 80; RESP 16; TEMP 36.4; O2SAT 92
== END 2025-02-14 16:55 | disposition home or self-care (01) ==
PROVIDERS: Emergency Provider Emergency Medicine; PCP Internal Medicine; Visit Provider Emergency Medicine
DX: R07.89 Other chest pain (principal); E11.42 Type 2 diabetes mellitus with diabetic polyneuropathy; Z79.4 Long term (current) use of insulin; I10 Essential (primary) hypertension; E78.00 Pure hypercholesterolemia, unspecified; I25.10 Atherosclerotic heart disease of native coronary artery without angina pectoris; Z95.1 Presence of aortocoronary bypass graft; Z79.01 Long term (current) use of anticoagulants; Z79.85 Long-term (current) use of injectable non-insulin antidiabetic drugs; Z79.899 Other long term (current) drug therapy; Z86.16 Personal history of COVID-19; Z86.711 Personal history of pulmonary embolism
CPT/HCPCS: 71045; 80048; 84484; 85025; 85610; 93005; 99285; A4216

== ENCOUNTER 2025-03-01 13:47 | Day surgery (SDC) | payer MEDICARE, MEDICAID, SELFPAY ==
[2021-09-03 12:59] VITALS: BMI 43.4
[2025-02-10 11:15] VITALS: BMI 39.7
--- NOTE | 2025-02-24 15:05 | PAT.ANESEVAL ---
Pre-Assessment Diagnosis/Proposed Procedure Planned Operative Procedure(s): COLONOSCOPY, EGD Anesthesia History Anesthesia History - back roller: Anesthesia History - back roller Hx Hospitalization No: . 02/24/25 14:20 Any Problems With Anesthesia No 02/24/25 14:20 Cholinesterase deficiency No 02/24/25 14:20 You/Your Family Experience No 02/24/25 14:20 fever (hyperthermia) with Relationship Recent Exposure to Contagious No 08/26/23 23:08 Disease Does patient have nerve No 02/24/25 14:20 stimulator Patient instructed to have device shut off --Does patient have Pacemaker or ICD? When Was Last Pacemaker Check QUESTION #4 FULL TEXT: You/Your Family Experience fever (hyperthermia) with Anesthesia Last Oral Intake Last Oral intake: Last Oral Intake NPO since Meds taken in AM with sips of water? Meds patient instructed to take am of surgery PONV PONV - back roller: PONV - back roller Female Yes 02/24/25 14:20 HX of Motion Sickness No 02/24/25 14:20 HX of N/V After Surgery No 02/24/25 14:20 Non-Smoker Yes 02/24/25 14:20 Duration of Surgery greater No 02/24/25 14:20 than 60 minutes Number of Risk Factors 2 02/24/25 14:20 PONV Score Moderate Risk 02/24/25 14:20 Height & Weight Height & Weight: Anesthesia: Height & Weight Height 5 ft 4 in 01/03/25 07:27 Respiratory Assessment Respiratory Assessment - back roller: Respiratory Tract Infection Hx - back roller Hx Respiratory Tract Infection No 02/24/25 14:20 STOP Sleep Apnea STOP Sleep Apnea - back roller: STOP Sleep Apnea - back roller Hx Hypertension Yes 02/24/25 14:20 Hx Sleep Apnea Yes 02/24/25 14:20 CPAP No 02/24/25 14:20 BIPAP Yes 02/24/25 14:20 Do you snore loudly (louder than talking or can be heard Do you often feel tired/ fatigued/ sleepy during daytime? Has anyone observed you stop breathing during sleep? STOP Results Positive 02/24/25 14:20 QUESTION #5 FULL TEXT : Do you snore loudly (louder than talking or can be heard through closed doors)? 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 Specify any problems Hx of Preganancy in last 3 No 02/24/25 14:20 Months Nurse Filling Out Transfusion [facility] 02/24/25 14:20 & Questions: Date: 02/24/25 02/24/25 14:20 Time: 02/24/25 14:20 Patient unable to answer at this time (ie. confused, unrespo /Reproduction History /Reproductive History - back roller: /Reproductive Hx- back roller Hx Now No 02/24/25 14:20 Gestational Age (in weeks): EDC: Hx Hx Para Hx Section SAB No 08/26/23 23:08 [facility] Medical History Wears glasses MRSA infection Open wound Walker as ambulation aid Gastric reflux History of pacemaker Surgical complete heart block Acute on chronic hypoxic respiratory failure COPD exacerbation Acute CVA (cerebrovascular accident) Obesity (BMI 30-39.9) Rectal bleeding Subtherapeutic international normalized ratio (INR) Peripheral neuropathy Positive FIT (fecal immunochemical test) History of transcatheter aortic valve replacement (TAVR) (~04/19/21) COVID-19 Depression Anxiety Discoloration of skin History of steroid therapy Insulin dependent diabetes mellitus Diabetes Arthritis High cholesterol Pulmonary embolism Easy bruising Excessive bleeding Restless legs Back pain Migraine headache TIA (transient ischemic attack) Non-smoker BiPAP (biphasic positive airway pressure) dependence On home oxygen therapy Shortness of breath on exertion Leg cramps History of pain when walking History of edema History of stress test Hx of transesophageal echocardiography (YOLANDA) for monitoring History of echocardiogram Cardiology follow-up encounter Rotator cuff arthropathy of right shoulder History of DVT (deep vein thrombosis) Back pain with sciatica Nonrheumatic aortic (valve) stenosis Essential hypertension Carotid artery disease Atherosclerotic heart disease of [place] coronary artery without angina pectoris Personal history of anaphylaxis Bilateral carotid bruits Body mass index 45.0-49.9, adult Diastolic heart failure COPD (chronic obstructive pulmonary disease) CHELSEY treated with BiPAP History of pulmonary embolism Morbid obesity Type 2 diabetes mellitus Asthma Home Medications ?Medication ?Instructions ?Recorded ?Last Taken ?Type calcium 600 mg-D3 800 unit-mag 40 1 ea PO DAILY vitamins 05/27/16 01/18/25 History yl-ffiw-fyiv-angel-boron chew tablet fenofibrate nanocrystallized 145 72.5 mg PO QHS cholesterol 04/26/19 01/18/25 History mg tablet trazodone 50 mg tablet 50 mg PO QHS sleep 08/09/19 01/18/25 History epinephrine 0.3 mg/0.3 mL 0.3 mg (0.3 mL) IM X1 PRN 01/18/20 Unknown Rx injection, auto-injector Anaphylaxis #1 ea albuterol sulfate 2.5 mg/3 mL 2.5 mg (3 mL) inhalation Q2H PRN 04/24/20 01/19/25 Rx (0.083 %) solution for nebulization PRN dyspnea, wheezing #180 mL albuterol sulfate 90 mcg/actuation 2 inh inhalation Q4H PRN PRN Sob 04/24/20 01/19/25 Rx aerosol inhaler &/Or Wheezing #18 grams montelukast 10 mg tablet 10 mg PO DAILY allergies/asthma 12/07/20 01/19/25 Rx #30 tabs alendronate 70 mg tablet 70 mg PO [employer] bone [employer] 12/21/20 01/12/25 History beclomethasone dipropionate 80 1 inh inhalation BID Asthma 03/22/21 01/19/25 History mcg/actuation HFA breath activated aerosol budesonide-formoterol HFA 160 2 puff inhalation BID asthma 03/22/21 01/19/25 History mcg-4.5 mcg/actuation aerosol inhaler ipratropium 0.5 mg-albuterol 3 mg 3 ml inhalation BID asthma 03/22/21 01/18/25 History (2.5 mg base)/3 mL nebulization soln melatonin 10 mg tablet 12 mg PO QHS sleep 04/05/21 01/18/25 History pregabalin 150 mg capsule 150 mg PO TID nerve pain 04/05/21 01/19/25 History meclizine 25 mg tablet 25 mg PO DAILY PRN Vertigo 05/04/21 01/18/25 History docusate sodium 100 mg capsule 100 mg PO DAILY stool softener 08/17/21 Unknown History magnesium 250 mg tablet 400 mg PO DAILY supplement 08/17/21 01/19/25 History levocetirizine 5 mg tablet 5 mg PO DAILY allergies 11/07/21 01/18/25 History dapagliflozin propanediol 10 mg 10 mg PO DAILY diabetes 08/11/22 01/19/25 History tablet (Farxiga) multivitamin (Daily Multi-Vitamin 1 tab PO DAILY SUPPLEMENT 06/12/23 01/19/25 History tablet) tiotropium bromide 18 mcg capsule 18 mcg inhalation DAILY asthma 06/12/23 01/19/25 History with inhalation device azelastine 137 mcg-fluticasone 50 2 spray intranasal BID allergy 08/25/23 01/19/25 History mcg/spray nasal spray cholecalciferol (vitamin D3) 125 125 mcg PO DAILY vitamin-self care 08/25/23 01/19/25 History mcg (5,000 unit) tablet (Vitamin D3) Lactobacillus acidophilus 1 tab PO DAILY Supplement 09/29/23 01/19/25 History (Acidophilus chewable tablet) ondansetron 4 mg disintegrating 4 mg PO DAILY PRN nausea 09/29/23 Unknown History tablet zinc 100 mg tablet 100 mg PO DAILY supplement 09/29/23 01/19/25 History atorvastatin 40 mg tablet 40 mg PO QHS 30 days #30 tabs 09/17/24 01/18/25 Rx topiramate 50 mg tablet 50 mg PO BID 30 days #60 tabs 09/17/24 01/19/25 Rx furosemide 40 mg tablet 40 mg PO .COMPLEX diuresis 09/27/24 01/19/25 History ascorbate calcium (vitamin C) 500 2 g PO DAILY vitamin 01/03/25 01/19/25 History mg tablet mecobalamin (vitamin B12) 5,000 5,000 mcg PO QDAY 01/03/25 01/19/25 History mcg chewable tablet oxycodone-acetaminophen 5 mg-325 1 tab PO BID PRN pain 01/03/25 01/19/25 History mg tablet fluoxetine 40 mg capsule 40 mg PO DAILY 01/19/25 01/19/25 History omeprazole 40 mg capsule,delayed 40 mg PO DAILY gerd 01/19/25 01/19/25 History release rizatriptan 5 mg tablet 5 mg PO PRN 01/19/25 Unknown History semaglutide 2 mg/dose (8 mg/3 mL) 2 mg subcut QWEEK 01/19/25 02/20/25 History subcutaneous pen injector (Ozempic) warfarin 4 mg tablet 4 mg PO DAILY 01/19/25 02/24/25 History warfarin 5 mg tablet 5 mg PO DAILY 01/19/25 02/24/25 History losartan 25 mg tablet 25 mg PO QDAY #90 tabs 02/02/25 Unknown Rx metoprolol tartrate 25 mg tablet 25 mg PO BID #180 tabs 02/02/25 Unknown Rx linaclotide 290 mcg capsule 290 mcg PO QAM #90 caps 02/22/25 Unknown Rx (Linzess) spironolactone 50 mg tablet 50 mg PO DAILY #30 tabs 02/22/25 Unknown Rx insulin glargine U-300 conc 300 15 unit subcut BID DIABETES 02/24/25 Unknown History unit/mL (1.5 mL) subcutaneous pen ([employer] SoloStar U-300 Insulin) Allergy/AdvReac Type Severity Reaction Status Date / Time clindamycin Allergy Rash Verified 02/24/25 14:06 erythromycin base Allergy Rash Verified 02/24/25 14:06 (Erythromycin Base) omalizumab (From Xolair) Allergy Chest Verified 02/24/25 14:06 tightness Penicillins Allergy Rash Verified 02/24/25 14:06 sulfamethoxazole (From Allergy Chest Verified 02/24/25 14:06 Bactrim) tightness trimethoprim (From Bactrim) Allergy Chest Verified 02/24/25 14:06 tightness Sulfa (Sulfonamide AdvReac Unknown Unknown Verified 02/24/25 14:06 Antibiotics) Family History Father Heart disease Diabetes CAD (coronary artery disease) Mother CAD (coronary artery disease) CVA (cerebral vascular accident) Diabetes Brother CAD (coronary artery disease) CVA (cerebral vascular accident) Diabetes Unknown Cancer Grandmother CVA (cerebral vascular accident) Diabetes Grandfather CVA (cerebral vascular accident) Grandmother Myocardial infarction Brother Diabetes Sister Diabetes Surgical History Status post cardiac pacemaker procedure History of laminectomy History of colonoscopy History of cardiac catheterization Aortic valve replaced History of left heart catheterization (LHC) (~01/19/21) H/O lumbosacral spine surgery History of rotator cuff surgery Hx of appendectomy History of hernia repair History of section History of neck surgery Social History household members: spouse housing: apartment pets and animals: Yes Smoking Status: Never smoker second hand exposure: No alcohol intake: current alcohol intake frequency: a few times a week substance use type: does not use caffeine: No what type of physical activity do you participate in: none do you feel safe at home: Yes Prior Cardiac Testing/Procedures Prior Cardiac Testing/Procedures: Echocardiogram (he proceeded with repeat echocardiogram on 12/20/2024 that showed an ejection fraction of 49%, normal global LV myocardial strain, grade 1 LV diastolic dysfunction, peak aortic valve gradient 8 mmHg, mean aortic valve gradient 4 mmHg, dimensionless valve index of 0.66, and the visualized aorta is nor) and Cardiac Angiogram (10/11/2024 that showed mild 30% proximal RCA disease, mild luminal irregularities of the LAD, and mild luminal irregularities of the LCx. She did have biventricular filling pressures with a pulmonary capillary wedge pressure of 42 mmHg with a cardiac output of 4.1 and a cardiac index of 1.9.) Addt'l Information Additional Findings: V-paced EKG Recommendation Anesthesia Recommendation Anesthesia recommendation: OPTIMIZED for anesthesia Follow up Details Additional Information Recommendation: Yes Additional Information Rec Details: Will need INR day of Procedure
[2025-03-01] VITALS (8 sets, daily range): BP systolic 120–143; BP diastolic 74–96; PULSE 76–81; RESP 16–18; TEMP 36.4–36.8; O2SAT 91–97; BMI 38.9
[2025-03-01 13:57] LABS: Bacteria 0 SEEN /hpf (None Seen); Mucous, Urine 0 SEEN /hpf (<or=2+)
--- NOTE | 2025-03-01 13:58 | PCM.PRE.AN2 ---
ASA Classification* ASA Classification ASA Classification: 3 Assessment & Plan Anesthesia* Anesthesia Assessment Anesthesia Assessment: Discussed sedation and/or anesthesia options, risks, benefits, and alternatives with patient/parents/legal guardian/POA. Questions invited. The patient/parents/legal guardian/POA seems to understand and agrees to proceed with anesthesia plan. Reviewed the physical assessment, medical history, allergy history and patient home medications list prior to surgery/procedure/anesthetic and documented any changes. Performed airway and anesthesia risk assessments. Anesthesia Type Anesthesia Type: MAC Anesthesia Focused Assessment* Airway Assessment Mouth opens: >3 cm Mallampati Score: III Focused Labs Anesthesia Preop lab: CBC WBC 7.4 K/mm3 (4.4-11.0) 02/14/25 16:02/14/25 RBC 5.30 M/mm3 (4.2-5.4) 02/14/25 16:01 02/14/25 Hgb 13.9 g/dL (12.0-15.0) 02/14/25 16:01 02/14/25 Hct 44.2 % (37-47) 02/14/25 16:01 02/14/25 Plt Count 291 K/mm3 (150-450) 02/14/25 16:02/14/25 CHEMISTRY Potassium 4.6 mmol/L (3.3-5.1) 02/14/25 16:01 02/14/25 Sodium 136 mmol/L (133-145) 02/14/25 16:01 02/14/25 Magnesium 2.3 mg/dL (1.6-2.6) 02/25/24 09:24 02/25/24 Phosphorus 3.9 mg/dL (2.5-4.9) 08/26/23 07:00 08/26/23 BUN 17 mg/dL (4-19) 02/14/25 16:02/14/25 Creatinine 0.84 mg/dL (0.70-1.20) 02/14/25 16:01 02/14/25 Glucose 80 mg/dL (70-99) 02/14/25 16:01 02/14/25 POC Glucose 245 mg/dL (74-106) H 10/05/24 21:51 10/05/24 TSH 1.050 uIU/mL (0.358-3.740) 09/15/24 18:30 09/15/24 COAG PT 20.5 SECONDS (11.7-14.9) H 02/14/25 16:01 02/14/25 INR 2.3 02/14/21 10:59 02/14/21 Pre-Assessment Diagnosis/Proposed Procedure Planned Operative Procedure(s): COLONOSCOPY, EGD Anesthesia History 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 02/24/25 14:20 Any Problems With Anesthesia No 02/24/25 14:20 Cholinesterase deficiency No 02/24/25 14:20 You/Your Family Experience No 02/24/25 14:20 fever (hyperthermia) with Relationship Recent Exposure to Contagious No 08/26/23 23:08 Disease Does patient have nerve No 02/24/25 14:20 stimulator Patient instructed to have device shut off --Does patient have Pacemaker or ICD? When Was Last Pacemaker Check QUESTION #4 FULL TEXT: You/Your Family Experience fever (hyperthermia) with Anesthesia Last Oral Intake Last Oral intake: Last Oral Intake NPO since Meds taken in AM with sips of water? Meds patient instructed to take am of surgery PONV PONV - small arms repairer: PONV - small arms repairer Female Yes 02/24/25 14:20 HX of Motion Sickness No 02/24/25 14:20 HX of N/V After Surgery No 02/24/25 14:20 Non-Smoker Yes 02/24/25 14:20 Duration of Surgery greater No 02/24/25 14:20 than 60 minutes Number of Risk Factors 2 02/24/25 14:20 PONV Score Moderate Risk 02/24/25 14:20 Height & Weight Height & Weight: Anesthesia: Height & Weight Height 5 ft 4 in 02/14/25 15:28 Respiratory Assessment Respiratory Assessment - small arms repairer: Respiratory Tract Infection Hx - small arms repairer Hx Respiratory Tract Infection No 02/24/25 14:20 STOP Sleep Apnea STOP Sleep Apnea - small arms repairer: STOP Sleep Apnea - small arms repairer Hx Hypertension Yes 02/24/25 14:20 Hx Sleep Apnea Yes 02/24/25 14:20 CPAP No 02/24/25 14:20 BIPAP Yes 02/24/25 14:20 Do you snore loudly (louder than talking or can be heard Do you often feel tired/ fatigued/ sleepy during daytime? Has anyone observed you stop breathing during sleep? STOP Results Positive 02/24/25 14:20 QUESTION #5 FULL TEXT : Do you snore loudly (louder than talking or can be heard through closed doors)? 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 Specify any problems Hx of Preganancy in last 3 No 02/24/25 14:20 Months Nurse Filling Out Transfusion [facility] 02/24/25 14:20 & Questions: Date: 02/24/25 02/24/25 14:20 Time: :02/24/25 14:20 Patient unable to answer at this time (ie. confused, unrespo /Reproduction History /Reproductive History - small arms repairer: /Reproductive Hx- small arms repairer Hx Now No 02/24/25 14:20 Gestational Age (in weeks): EDC: Hx Hx Para Hx Section SAB No 08/26/23 23:08 [facility] Medical History Wears glasses MRSA infection Open wound Walker as ambulation aid Gastric reflux History of pacemaker Surgical complete heart block Acute on chronic hypoxic respiratory failure COPD exacerbation Acute CVA (cerebrovascular accident) Obesity (BMI 30-39.9) Rectal bleeding Subtherapeutic international normalized ratio (INR) Peripheral neuropathy Positive FIT (fecal immunochemical test) History of transcatheter aortic valve replacement (TAVR) (~04/19/21) COVID-19 Depression Anxiety Discoloration of skin History of steroid therapy Insulin dependent diabetes mellitus Diabetes Arthritis High cholesterol Pulmonary embolism Easy bruising Excessive bleeding Restless legs Back pain Migraine headache TIA (transient ischemic attack) Non-smoker BiPAP (biphasic positive airway pressure) dependence On home oxygen therapy Shortness of breath on exertion Leg cramps History of pain when walking History of edema History of stress test Hx of transesophageal echocardiography (YOLANDA) for monitoring History of echocardiogram Cardiology follow-up encounter Rotator cuff arthropathy of right shoulder History of DVT (deep vein thrombosis) Back pain with sciatica Nonrheumatic aortic (valve) stenosis Essential hypertension Carotid artery disease Atherosclerotic heart disease of [place] coronary artery without angina pectoris Personal history of anaphylaxis Bilateral carotid bruits Body mass index 45.0-49.9, adult Diastolic heart failure COPD (chronic obstructive pulmonary disease) CHELSEY treated with BiPAP History of pulmonary embolism Morbid obesity Type 2 diabetes mellitus Asthma Home Medications ?Medication ?Instructions ?Recorded ?Last Taken ?Type calcium 600 mg-D3 800 unit-mag 40 1 ea PO DAILY vitamins 05/27/16 01/18/25 History gs-bgzc-trmw-angel-boron chew tablet fenofibrate nanocrystallized 145 72.5 mg PO QHS cholesterol 04/26/19 01/18/25 History mg tablet trazodone 50 mg tablet 50 mg PO QHS sleep 08/09/19 01/18/25 History epinephrine 0.3 mg/0.3 mL 0.3 mg (0.3 mL) IM X1 PRN 01/18/20 Unknown Rx injection, auto-injector Anaphylaxis #1 ea albuterol sulfate 2.5 mg/3 mL 2.5 mg (3 mL) inhalation Q2H PRN 04/24/20 01/19/25 Rx (0.083 %) solution for nebulization PRN dyspnea, wheezing #180 mL albuterol sulfate 90 mcg/actuation 2 inh inhalation Q4H PRN PRN Sob 04/24/20 01/19/25 Rx aerosol inhaler &/Or Wheezing #18 grams montelukast 10 mg tablet 10 mg PO DAILY allergies/asthma 12/07/20 01/19/25 Rx #30 tabs alendronate 70 mg tablet 70 mg PO [facility] 12/21/20 01/12/25 History beclomethasone dipropionate 80 1 inh inhalation BID Asthma 03/22/21 01/19/25 History mcg/actuation HFA breath activated aerosol budesonide-formoterol HFA 160 2 puff inhalation BID asthma 03/22/21 01/19/25 History mcg-4.5 mcg/actuation aerosol inhaler ipratropium 0.5 mg-albuterol 3 mg 3 ml inhalation BID asthma 03/22/21 01/18/25 History (2.5 mg base)/3 mL nebulization soln melatonin 10 mg tablet 12 mg PO QHS sleep 04/05/21 01/18/25 History pregabalin 150 mg capsule 150 mg PO TID nerve pain 04/05/21 01/19/25 History meclizine 25 mg tablet 25 mg PO DAILY PRN Vertigo 05/04/21 01/18/25 History docusate sodium 100 mg capsule 100 mg PO DAILY stool softener 08/17/21 Unknown History magnesium 250 mg tablet 400 mg PO DAILY supplement 08/17/21 01/19/25 History levocetirizine 5 mg tablet 5 mg PO DAILY allergies 11/07/21 01/18/25 History dapagliflozin propanediol 10 mg 10 mg PO DAILY diabetes 08/11/22 01/19/25 History tablet (Farxiga) multivitamin (Daily Multi-Vitamin 1 tab PO DAILY SUPPLEMENT 06/12/23 01/19/25 History tablet) tiotropium bromide 18 mcg capsule 18 mcg inhalation DAILY asthma 06/12/23 01/19/25 History with inhalation device azelastine 137 mcg-fluticasone 50 2 spray intranasal BID allergy 08/25/23 01/19/25 History mcg/spray nasal spray cholecalciferol (vitamin D3) 125 125 mcg PO DAILY vitamin-self care 08/25/23 01/19/25 History mcg (5,000 unit) tablet (Vitamin D3) Lactobacillus acidophilus 1 tab PO DAILY Supplement 09/29/23 01/19/25 History (Acidophilus chewable tablet) ondansetron 4 mg disintegrating 4 mg PO DAILY PRN nausea 09/29/23 Unknown History tablet zinc 100 mg tablet 100 mg PO DAILY supplement 09/29/23 01/19/25 History atorvastatin 40 mg tablet 40 mg PO QHS 30 days #30 tabs 09/17/24 01/18/25 Rx topiramate 50 mg tablet 50 mg PO BID 30 days #60 tabs 09/17/24 01/19/25 Rx furosemide 40 mg tablet 40 mg PO .COMPLEX diuresis 09/27/24 01/19/25 History ascorbate calcium (vitamin C) 500 2 g PO DAILY vitamin 01/03/25 01/19/25 History mg tablet mecobalamin (vitamin B12) 5,000 5,000 mcg PO QDAY 01/03/25 01/19/25 History mcg chewable tablet oxycodone-acetaminophen 5 mg-325 1 tab PO BID PRN pain 01/03/25 01/19/25 History mg tablet fluoxetine 40 mg capsule 40 mg PO DAILY 01/19/25 01/19/25 History omeprazole 40 mg capsule,delayed 40 mg PO DAILY gerd 01/19/25 01/19/25 History release rizatriptan 5 mg tablet 5 mg PO PRN 01/19/25 Unknown History semaglutide 2 mg/dose (8 mg/3 mL) 2 mg subcut QWEEK 01/19/25 02/20/25 History subcutaneous pen injector (Ozempic) warfarin 4 mg tablet 4 mg PO DAILY 01/19/25 02/24/25 History warfarin 5 mg tablet 5 mg PO DAILY 01/19/25 02/24/25 History losartan 25 mg tablet 25 mg PO QDAY #90 tabs 02/02/25 Unknown Rx metoprolol tartrate 25 mg tablet 25 mg PO BID #180 tabs 02/02/25 Unknown Rx linaclotide 290 mcg capsule 290 mcg PO QAM #90 caps 02/22/25 Unknown Rx (Linzess) spironolactone 50 mg tablet 50 mg PO DAILY #30 tabs 02/22/25 Unknown Rx insulin glargine U-300 conc 300 15 unit subcut BID DIABETES 02/24/25 Unknown History unit/mL (1.5 mL) subcutaneous pen ([employer] SoloStar U-300 Insulin) Allergy/AdvReac Type Severity Reaction Status Date / Time clindamycin Allergy Rash Verified 02/24/25 14:06 erythromycin base Allergy Rash Verified 02/24/25 14:06 (Erythromycin Base) omalizumab (From Xolair) Allergy Chest Verified 02/24/25 14:06 tightness Penicillins Allergy Rash Verified 02/24/25 14:06 sulfamethoxazole (From Allergy Chest Verified 02/24/25 14:06 Bactrim) tightness trimethoprim (From Bactrim) Allergy Chest Verified 02/24/25 14:06 tightness Sulfa (Sulfonamide AdvReac Unknown Unknown Verified 02/24/25 14:06 Antibiotics) Family History Father Heart disease Diabetes CAD (coronary artery disease) Mother CAD (coronary artery disease) CVA (cerebral vascular accident) Diabetes Brother CAD (coronary artery disease) CVA (cerebral vascular accident) Diabetes Unknown Cancer Grandmother CVA (cerebral vascular accident) Diabetes Grandfather CVA (cerebral vascular accident) Grandmother Myocardial infarction Brother Diabetes Sister Diabetes Surgical History Status post cardiac pacemaker procedure History of laminectomy History of colonoscopy History of cardiac catheterization Aortic valve replaced History of left heart catheterization (LHC) (~01/19/21) H/O lumbosacral spine surgery History of rotator cuff surgery Hx of appendectomy History of hernia repair History of section History of neck surgery Social History household members: spouse housing: apartment pets and animals: Yes Smoking Status: Never smoker second hand exposure: No alcohol intake: current alcohol intake frequency: a few times a week substance use type: does not use caffeine: No what type of physical activity do you participate in: none do you feel safe at home: Yes Review of Systems (Anesthesia) ROS Narrative System reviewed and no additional complaints, except as documented.
--- NOTE | 2025-03-01 14:05 | PCM.HP.STD ---
HPI - General General Date of Admission: 03/01/25 Date of Service: 03/01/25 Chief Complaint: Dysphagia and constipation HPI Narrative OV 09/27/2024 63y/o female presents for consultation. She was last seen as an inpatient by Dr. Alcantar September 2023 for BRBPR. She presents to the ED 09/17/2024 with complaints of right-sided weakness, slurred speech, facial numbness and headache. MRI negative for CVA. She reports a long history of changes with swallowing post head and neck surgery in 2006. MBS was completed 09/17/2024 and revealed esophageal retention of pudding throughout the esophagus, which somewhat improved with liquid wash, mild retention of liquids with retrograde flow remaining well below the UES. She denies any HB on Omeprazole 40mg daily. Denies any N/V. She does have a sense of delayed esophageal transit. Denies any odynophagia. EGD revealed a large HH in 2021. She will schedule repeat EGD at this time. She will require approval to hold Coumadin prior. Patient Instructions: Continue Omeprazole once daily Avoid eating and drinking 3 hours before laying down Continue Docusate/Senna TID Continue Miralax but adjust dosing to 1/2 dose daily with 8 ounces of water Start Benefiber 2tsp once daily in 8 ounces of water once daily - she looks much better post valve replacement - ambulates with walker - swallowing is better but not great - she reports she really has to chew up food well - she has to take pills one at a time - she reports post extubation at [facility] she was seen by ST who told her to be careful - she reports carbonated beverages and think liquids she feels getting stuck - Dr. Soria is prescribing the coumadin for h/o DVT and PE - constipaton - Miralax BID - Senna 3a day - stool softener - she is on Ozempic - Oxycodone mostly once a day sometimes twice a day COLON 08/27/2023 - Preparation of the colon was poor. - Hemorrhoids found on perianal exam. - Bleeding internal external and internal hemorrhoids. Banded. - Diverticulosis in the recto-sigmoid colon, in the sigmoid colon and in the descending colon. - Stool in the entire examined colon. - No specimens collected. Recommendation: - Return patient to hospital [facility] for ongoing care. - Resume regular diet. - Continue present medications. - Repeat colonoscopy because the bowel preparation was suboptimal. [facility] Medical History Wears glasses MRSA infection Open wound Walker as ambulation aid Gastric reflux History of pacemaker Surgical complete heart block Acute on chronic hypoxic respiratory failure COPD exacerbation Acute CVA (cerebrovascular accident) Obesity (BMI 30-39.9) Rectal bleeding Subtherapeutic international normalized ratio (INR) Peripheral neuropathy Positive FIT (fecal immunochemical test) History of transcatheter aortic valve replacement (TAVR) (~04/19/21) COVID-19 Depression Anxiety Discoloration of skin History of steroid therapy Insulin dependent diabetes mellitus Diabetes Arthritis High cholesterol Pulmonary embolism Easy bruising Excessive bleeding Restless legs Back pain Migraine headache TIA (transient ischemic attack) Non-smoker BiPAP (biphasic positive airway pressure) dependence On home oxygen therapy Shortness of breath on exertion Leg cramps History of pain when walking History of edema History of stress test Hx of transesophageal echocardiography (YOLANDA) for monitoring History of echocardiogram Cardiology follow-up encounter Rotator cuff arthropathy of right shoulder History of DVT (deep vein thrombosis) Back pain with sciatica Nonrheumatic aortic (valve) stenosis Essential hypertension Carotid artery disease Atherosclerotic heart disease of [place] coronary artery without angina pectoris Personal history of anaphylaxis Bilateral carotid bruits Body mass index 45.0-49.9, adult Diastolic heart failure COPD (chronic obstructive pulmonary disease) CHELSEY treated with BiPAP History of pulmonary embolism Morbid obesity Type 2 diabetes mellitus Asthma Home Medications ?Medication ?Instructions ?Recorded ?Last Taken ?Type calcium 600 mg-D3 800 unit-mag 40 1 ea PO DAILY vitamins 05/27/16 01/18/25 History dm-fchq-cyxh-angel-boron chew tablet fenofibrate nanocrystallized 145 72.5 mg PO QHS cholesterol 04/26/19 01/18/25 History mg tablet trazodone 50 mg tablet 50 mg PO QHS sleep 08/09/19 01/18/25 History epinephrine 0.3 mg/0.3 mL 0.3 mg (0.3 mL) IM X1 PRN 01/18/20 Unknown Rx injection, auto-injector Anaphylaxis #1 ea albuterol sulfate 2.5 mg/3 mL 2.5 mg (3 mL) inhalation Q2H PRN 04/24/20 01/19/25 Rx (0.083 %) solution for nebulization PRN dyspnea, wheezing #180 mL albuterol sulfate 90 mcg/actuation 2 inh inhalation Q4H PRN PRN Sob 04/24/20 01/19/25 Rx aerosol inhaler &/Or Wheezing #18 grams montelukast 10 mg tablet 10 mg PO DAILY allergies/asthma 12/07/20 01/19/25 Rx #30 tabs alendronate 70 mg tablet 70 mg PO WE bone health 12/21/20 01/12/25 History beclomethasone dipropionate 80 1 inh inhalation BID Asthma 03/22/21 01/19/25 History mcg/actuation HFA breath activated aerosol budesonide-formoterol HFA 160 2 puff inhalation BID asthma 03/22/21 01/19/25 History mcg-4.5 mcg/actuation aerosol inhaler ipratropium 0.5 mg-albuterol 3 mg 3 ml inhalation BID asthma 03/22/21 01/18/25 History (2.5 mg base)/3 mL nebulization soln melatonin 10 mg tablet 12 mg PO QHS sleep 04/05/21 01/18/25 History pregabalin 150 mg capsule 150 mg PO TID nerve pain 04/05/21 01/19/25 History meclizine 25 mg tablet 25 mg PO DAILY PRN Vertigo 05/04/21 01/18/25 History docusate sodium 100 mg capsule 100 mg PO DAILY stool softener 08/17/21 Unknown History magnesium 250 mg tablet 400 mg PO DAILY supplement 08/17/21 01/19/25 History levocetirizine 5 mg tablet 5 mg PO DAILY allergies 11/07/21 01/18/25 History dapagliflozin propanediol 10 mg 10 mg PO DAILY diabetes 08/11/22 01/19/25 History tablet (Farxiga) multivitamin (Daily Multi-Vitamin 1 tab PO DAILY SUPPLEMENT 06/12/23 01/19/25 History tablet) tiotropium bromide 18 mcg capsule 18 mcg inhalation DAILY asthma 06/12/23 01/19/25 History with inhalation device azelastine 137 mcg-fluticasone 50 2 spray intranasal BID allergy 08/25/23 01/19/25 History mcg/spray nasal spray cholecalciferol (vitamin D3) 125 125 mcg PO DAILY vitamin-self care 08/25/23 01/19/25 History mcg (5,000 unit) tablet (Vitamin D3) Lactobacillus acidophilus 1 tab PO DAILY Supplement 09/29/23 01/19/25 History (Acidophilus chewable tablet) ondansetron 4 mg disintegrating 4 mg PO DAILY PRN nausea 09/29/23 Unknown History tablet zinc 100 mg tablet 100 mg PO DAILY supplement 09/29/23 01/19/25 History atorvastatin 40 mg tablet 40 mg PO QHS 30 days #30 tabs 09/17/24 01/18/25 Rx topiramate 50 mg tablet 50 mg PO BID 30 days #60 tabs 09/17/24 01/19/25 Rx furosemide 40 mg tablet 40 mg PO .COMPLEX diuresis 09/27/24 01/19/25 History ascorbate calcium (vitamin C) 500 2 g PO DAILY vitamin 01/03/25 01/19/25 History mg tablet mecobalamin (vitamin B12) 5,000 5,000 mcg PO QDAY 01/03/25 01/19/25 History mcg chewable tablet oxycodone-acetaminophen 5 mg-325 1 tab PO BID PRN pain 01/03/25 01/19/25 History mg tablet fluoxetine 40 mg capsule 40 mg PO DAILY 01/19/25 01/19/25 History omeprazole 40 mg capsule,delayed 40 mg PO DAILY gerd 01/19/25 01/19/25 History release rizatriptan 5 mg tablet 5 mg PO PRN 01/19/25 Unknown History semaglutide 2 mg/dose (8 mg/3 mL) 2 mg subcut QWEEK 01/19/25 02/20/25 History subcutaneous pen injector (Ozempic) warfarin 4 mg tablet 4 mg PO DAILY 01/19/25 02/24/25 History warfarin 5 mg tablet 5 mg PO DAILY 01/19/25 02/24/25 History losartan 25 mg tablet 25 mg PO QDAY #90 tabs 02/02/25 Unknown Rx metoprolol tartrate 25 mg tablet 25 mg PO BID #180 tabs 02/02/25 Unknown Rx linaclotide 290 mcg capsule 290 mcg PO QAM #90 caps 02/22/25 Unknown Rx (Linzess) spironolactone 50 mg tablet 50 mg PO DAILY #30 tabs 02/22/25 Unknown Rx insulin glargine U-300 conc 300 15 unit subcut BID DIABETES 02/24/25 Unknown History unit/mL (1.5 mL) subcutaneous pen (Toujeo SoloStar U-300 Insulin) Allergy/AdvReac Type Severity Reaction Status Date / Time clindamycin Allergy Rash Verified 02/24/25 14:06 erythromycin base Allergy Rash Verified 02/24/25 14:06 (Erythromycin Base) omalizumab (From Xolair) Allergy Chest Verified 02/24/25 14:06 tightness Penicillins Allergy Rash Verified 02/24/25 14:06 sulfamethoxazole (From Allergy Chest Verified 02/24/25 14:06 Bactrim) tightness trimethoprim (From Bactrim) Allergy Chest Verified 02/24/25 14:06 tightness Sulfa (Sulfonamide AdvReac Unknown Unknown Verified 02/24/25 14:06 Antibiotics) Family History Father Heart disease Diabetes CAD (coronary artery disease) Mother CAD (coronary artery disease) CVA (cerebral vascular accident) Diabetes Brother CAD (coronary artery disease) CVA (cerebral vascular accident) Diabetes Unknown Cancer Grandmother CVA (cerebral vascular accident) Diabetes Grandfather CVA (cerebral vascular accident) Grandmother Myocardial infarction Brother Diabetes Sister Diabetes Surgical History Status post cardiac pacemaker procedure History of laminectomy History of colonoscopy History of cardiac catheterization Aortic valve replaced History of left heart catheterization (LHC) (~01/19/21) H/O lumbosacral spine surgery History of rotator cuff surgery Hx of appendectomy History of hernia repair History of section History of neck surgery Social History household members: spouse housing: apartment pets and animals: Yes Smoking Status: Never smoker second hand exposure: No alcohol intake: current alcohol intake frequency: a few times a week substance use type: does not use caffeine: No what type of physical activity do you participate in: none do you feel safe at home: Yes ROS Constitutional Constitutional: Denies fatigue, fever(s), poor appetite, weight gain or weight loss Gastrointestinal Gastrointestinal: Denies belching, bloating, change in bowel habits, change in stool character, chewing difficulty, coffee ground emesis, constipation, cramping, diarrhea, dyspepsia, dysphagia, early satiety, excessive flatus, fecal incontinence, heartburn, hematemesis, hematochezia, hemorrhoids, loose stools, melena, nausea, odynophagia, rectal bleeding, tenesmus, vomiting or weight changes Physical Exam Const alert, oriented x3, no apparent distress and healthy appearing General Appearance: cooperative GI normal to inspection, nondistended, normoactive bowel sounds, soft to palpation, non-tender and non-distended Percussion: normal to percussion Rectal Exam: deferred Results Lab / Micro Data 03/01/25 13:53 03/01/25 13:53 Assessment & Plan Assessment/Plan (1) Constipation by delayed colonic transit: (2) Dysphagia: (3) Hiatal hernia: PLAN: Assessment and Plan Assessment and Plan (1) Constipation by delayed colonic transit: Status: Acute Medications: New linaclotide (Linzess) take 30 minutes before breakfast every morning 145 mcg PO QAM 90 caps 1RF Plan 64-year-old female presents for follow-up with continued complaints of esophageal dysphagia. MBS was performed September 17, 2024 and revealed esophageal retention of puddings throughout the esophagus, which somewhat improved with liquid wash, mild retention of liquids with retrograde flow remaining well below the upper esophageal sphincter. Heartburn symptoms are well-controlled on omeprazole 40 mg daily and she denies any nausea or vomiting. She was recently admitted for aortic valve replacement and is doing well postoperatively. I have scheduled her for and EGD and pending findings/symptoms may schedule esophageal manometry in future. She complains of constipation which is likely secondary to use of Ozempic and oxycodone. I have started her on Linzess 145 mcg once daily and she will provide symptom update in 7 to 10 days. She is on Coumadin for history of DVT and PE, we will request approval to hold prior to endoscopy. Colonoscopy revealed a poor bowel prep in 2022 and she is due for repeat colonoscopy at this time. Note: [employer] speech recognition franchise sales director software was used to create portions of this document. Sound-alike and misspelled words, as well as other franchise sales director errors may be contained in the documentation. Patient Instructions: Linzess samples provided Colonoscopy and EGD-half day MiraLAX prep and 1 day GoLytely
[2025-03-01] MEDS: Lactated Ringers 1,000 ML 15 ML IV (14:58)
--- NOTE | 2025-03-01 15:00 | EGD_PTH ---
PATIENT: NATHALIE HERMAN LOC: EN U#:[id number] AGE/SX: 64/F ROOM: RE03/01/[address]: Dr. Devyn Alcantar DO : 1960 BED: DIS: 03/01/2025 SPEC #: [id number] RECD: 03/01/25 18:17 STATUS: KAMINI RELeslee #: [id number] LINN: 03/01/25 15:[address]: Devyn Alcantar DEPT: SURGICAL PATHOLOGY RECD BY: Jaime Schmidt ENTERED: 03/02/25 08:43 SP TYPE: EGD BIOPSY MARLYN DR: Dr. Ophelia Soria DO Tissues: A - Gastric mucous membrane B - Transverse colon Procedures: Immunohistochemical Stains Surgery Specimen Level IV HEADER OPERATION: Colonoscopy with biopsy, EGD with biopsy PRE-OP DIAGNOSIS: Constipation by delayed colonic transit, dysphagia, hiatal hernia TISSUE SUBMITTED: A- Gastric polyp biopsy, B- Transverse polyp biopsy MICROSCOPIC DIAGNOSIS A. Stomach, gastric polyp, biopsy: Hyperplastic polyp. IHC negative for H.pylori organisms. B. Transverse colon, polyp, biopsy: Tubular adenoma. MICROSCOPIC DESCRIPTION Slides are reviewed. All matched controls reacted appropriately. These tests were developed and their performance characteristics determined by [facility]. They may not have been cleared or approved by the U.S. Food and Drug Administration. The FDA has determined that such clearance or approval is not necessary. The above immunohistochemical/dualISH markers are ordered and reviewed by the Pathologist. GROSS DESCRIPTION A. Received in formalin in a container labeled with the patient's name, date of , and gastric polyp biopsy for H. pylori and path are multiple day-pink fragments of mucosal tissue measuring 1.0 x 0.7 x 0.3 cm in aggregate. Submitted in toto in A1. B. Received in formalin in a container labeled with the patient's name, date of , and transverse polyp biopsy is a 0.3 x 0.3 x 0.3 cm fragment of day-pink mucosal tissue. Submitted in toto in B1. [facility] 03-02-2025 CPT:46523o4,92644
[2025-03-01] MEDS: Ipratropium/Albuterol Sulfate 3 ML AMPUL.NEB INHALATION (15:10)
[2025-03-01 15:26] LABS: Microalbumin,Random Urine 12.7 mg/L (NO RANGE EST.); Microalbumin:Creatinine Ratio 110.4 mg/g CRE
[2025-03-01 15:26] LABS: Bedside Glucose 99 mg/dL (74-106)
[2025-03-01 15:27] LABS: Absolute Lymphocyte Count 1.27 X10^3/uL (0.83-4.51); Basophil# 0.05 X10^3/uL; Basophil% 0.8 % (0-1); Eosinophil# 0.12 X10^3/uL; Hematocrit 45.1 % (37-47); Hemoglobin 13.8 g/dL (12.0-15.0); Lymphocyte # 1.27 X10^3/ul (0.83-4.51); Lymphocyte % 21.5 % (19-41); Mean Corp Hgb Conc 30.6 g/dL (32-36); Mean Corpuscular Hgb 26.2 pg (27.0-32.0); Mean Corpuscular Volume 85.6 fL (81-99); Mean Platelet Vol. 10.7 fl (6.2-12.0); Monocyte# 0.47 X10^3/uL; NRBC Flagged by Analyzer 0 % (0-5); Neutrophil # 3.96 X10^3/uL (2.7-7.7); Neutrophil % 67.2 % (47-70); Platelet Count 301 K/mm3 (150-450); RBC Distribution Width CV 17.2 % (11.6-14.6); RBC Distribution Width SD 53.4 fl (35.1-43.9); Red Blood Count 5.27 M/mm3 (4.2-5.4); White Blood Count 5.9 K/mm3 (4.4-11.0)
[2025-03-01 15:46] LABS: Color, Urine Yellow (Yellow); Glucose, Dipstick 1000 mg/dl (Normal); Ketone-Dipstick Negative (Negative); Leukocyte Esterase-Dipstick 100 /ul (Negative); Nitrite-Dipstick Negative (Negative); Occult Blood-Urine Negative /ul (Negative); Protein-Dipstick 30 mg/dl (Negative); Specific Gravity, Urine 1.015 (1.002-1.030); Urine Bilirubin Dipstick Negative (Negative); Urine Clarity Clear (Clear); Urine Urobilinogen Normal (Normal); Urine pH 6.5 (5.0 - 8.0)
--- NOTE | 2025-03-01 15:52 | PCM.POST.ANE ---
Anesthesia: Postop Eval I Current Vital Signs Temperature: 98.3 F Pulse Rate: 79 Blood Pressure: 120/74 Respiratory Rate: 16 Pulse Ox: 97 Oxygen Delivery Method: Room Air Assessment Airway patent: Yes Spontaneous unlabored respirations: Yes Mental status: Awake and Calm nausea: No Vomiting: No Anesthesia Complication: No Fluid Hydration Crystalloid volume administer (ml): 700 Total IV fluid infused: 700 Progress Note Anesthesia document: Postop Eval 1 completed: Yes
--- NOTE | 2025-03-01 16:03 | OP.CCLET_ITS ---
03/01/2025 Ophelia Soria [address] [place] [address] Re : Upper GI endoscopy procedure for Maryse Kelley Dear Dr. Soria This procedure was performed on Saturday, March 01, 2025. My impressions and recommendations are as follows: Impressions : - Normal esophagus. - Multiple gastric polyps. Biopsied. - No gross lesions in the entire examined duodenum. Recommendations : - Discharge patient to home. - Resume previous diet. - Continue present medications. My findings are described in the full procedure note, which is enclosed. If I can be of further assistance, please feel free to contact me at . Sincerely, Devyn Alcantar, 03/01/2025 4:02:34 PM This report has been signed electronically.
--- NOTE | 2025-03-01 16:03 | OP.EGD_ITS ---
Patient Name: Maryse Kelley Procedure Date: 03/01/2025 3:17 PM Date of : 1960 Age: 64 Procedure: Upper GI endoscopy Indications: Epigastric abdominal pain, Functional Dyspepsia, Dyspepsia, Dysphagia, Heartburn, Failure to respond to medical treatment, Heme positive stool Providers: Devyn Alcantar DO Referring MD: Ophelia Soria Medicines: Monitored Anesthesia Care Patient Profile: This is a 64 year old female. Refer to note in patient chart for documentation of history and physical. Patient has symptoms of chronic abdominal cramping, acute abdominal distention and dysphagia with both liquids and solids. Complications: No immediate complications. Procedure: Pre-Anesthesia Assessment: - Prior to the procedure, a History and Physical was performed, and patient medications and allergies were reviewed. The patient is competent. The risks and benefits of the procedure and the sedation options and risks were discussed with the patient. All questions were answered and informed consent was obtained. Patient identification and proposed procedure were verified by the physician in the pre-procedure area. Mental Status Examination: alert and oriented. Airway Examination: normal oropharyngeal airway and neck mobility. Respiratory Examination: clear to auscultation. CV Examination: normal. Prophylactic Antibiotics: The patient does not require prophylactic antibiotics. Prior Anticoagulants: The patient has taken no anticoagulant or antiplatelet agents except for NSAID medication. ASA Grade Assessment: II - A patient with mild systemic disease. After reviewing the risks and benefits, the patient was deemed in satisfactory condition to undergo the procedure. The anesthesia plan was to use monitored anesthesia care (MAC). Immediately prior to administration of medications, the patient was re-assessed for adequacy to receive sedatives. The heart rate, respiratory rate, oxygen saturations, blood pressure, adequacy of pulmonary ventilation, and response to care were monitored throughout the procedure. The physical status of the patient was re-assessed after the procedure. After obtaining informed consent, the endoscope was passed under direct vision. Throughout the procedure, the patient's blood pressure, pulse, and oxygen saturations were monitored continuously. The Colonoscope was introduced through the mouth, and advanced to the third part of the duodenum. Small bowel enteroscopy was deemed necessary. The upper GI endoscopy was accomplished without difficulty. The patient tolerated the procedure well. Scope In: 3:26:38 PM Scope Out: 3:31:15 PM Total Procedure Duration Time 0 hours 4 minutes 37 seconds Findings: The examined esophagus was normal. Multiple 5 mm pedunculated and sessile polyps with no bleeding and no stigmata of recent bleeding were found in the entire examined stomach. Biopsies were taken with a cold forceps for histology. Verification of patient identification for the specimen was done. Estimated blood loss was minimal. No gross lesions were noted in the entire examined duodenum. Impression: - Normal esophagus. - Multiple gastric polyps. Biopsied. - No gross lesions in the entire examined duodenum. Recommendation: - Discharge patient to home. - Resume previous diet. - Continue present medications. Procedure Code(s): --- Professional --- 96831, Small intestinal endoscopy, enteroscopy beyond second portion of duodenum, not including ileum; with biopsy, single or multiple CPT copyright 2021 [employer]. All rights reserved. The codes documented in this report are preliminary and upon accounting software specialist review may be revised to meet current compliance requirements. Devyn Alcantar DO 03/01/2025 4:02:34 PM This report has been signed electronically. Number of Addenda: 0 Note Initiated On: 03/01/2025 3:17 PM
--- NOTE | 2025-03-01 16:05 | OP.COLON_ITS ---
Patient Name: Maryse Kelley Procedure Date: 03/01/2025 3:31 PM Date of : 1960 Age: 64 Procedure: Colonoscopy Indications: High risk colon cancer surveillance: Personal history of colonic polyps Providers: Devyn Alcantar DO Referring MD: Ophelia Soria Medicines: Monitored Anesthesia Care Patient Profile: This is a 64 year old female. Refer to note in patient chart for documentation of history and physical. Patient has symptoms of chronic abdominal cramping, acute abdominal distention and dysphagia with both liquids and solids. Last Colonoscopy: within the past 3 years. Complications: No immediate complications. Procedure: Pre-Anesthesia Assessment: - Prior to the procedure, a History and Physical was performed, and patient medications and allergies were reviewed. The patient is competent. The risks and benefits of the procedure and the sedation options and risks were discussed with the patient. All questions were answered and informed consent was obtained. Patient identification and proposed procedure were verified by the physician in the pre-procedure area. Mental Status Examination: alert and oriented. Airway Examination: normal oropharyngeal airway and neck mobility. Respiratory Examination: clear to auscultation. CV Examination: normal. Prophylactic Antibiotics: The patient does not require prophylactic antibiotics. Prior Anticoagulants: The patient has taken no anticoagulant or antiplatelet agents except for NSAID medication. ASA Grade Assessment: II - A patient with mild systemic disease. After reviewing the risks and benefits, the patient was deemed in satisfactory condition to undergo the procedure. The anesthesia plan was to use monitored anesthesia care (MAC). Immediately prior to administration of medications, the patient was re-assessed for adequacy to receive sedatives. The heart rate, respiratory rate, oxygen saturations, blood pressure, adequacy of pulmonary ventilation, and response to care were monitored throughout the procedure. The physical status of the patient was re-assessed after the procedure. After I obtained informed consent, the scope was passed under direct vision. Throughout the procedure, the patient's blood pressure, pulse, and oxygen saturations were monitored continuously. The Colonoscope was introduced through the anus and advanced to the cecum, identified by appendiceal orifice and ileocecal valve. The colonoscopy was performed without difficulty. The patient tolerated the procedure well. The quality of the bowel preparation was poor. The ileocecal valve, appendiceal orifice, and rectum were photographed. Scope In: 3:33:12 PM Scope Withdrawal Time 0 hours 6 minutes 24 seconds Scope Out: 3:46:19 PM Total Procedure Duration Time 0 hours 13 minutes 7 seconds Findings: The perianal and digital rectal examinations were normal. A large amount of stool was found in the entire colon, precluding visualization. Lavage of the area was performed using copious amounts of sterile water, resulting in incomplete clearance with continued poor visualization. A 5 mm polyp was found in the transverse colon. The polyp was sessile. The polyp was removed with a jumbo cold forceps. Resection and retrieval were complete. Verification of patient identification for the specimen was done. Estimated blood loss was minimal. Many small-mouthed diverticula were found in the recto-sigmoid colon, sigmoid colon and descending colon. Impression: - Preparation of the colon was poor. - Stool in the entire examined colon. - One 5 mm polyp in the transverse colon, removed with a jumbo cold forceps. Resected and retrieved. - Diverticulosis in the recto-sigmoid colon, in the sigmoid colon and in the descending colon. Recommendation: - Patient has a contact number available for emergencies. The signs and symptoms of potential delayed complications were discussed with the patient. Return to normal activities tomorrow. Written discharge instructions were provided to the patient. - Resume previous diet. - Continue present medications. - Await pathology results. - Repeat colonoscopy because the bowel preparation was poor. Procedure Code(s): --- Professional --- 77730, Colonoscopy, flexible; with biopsy, single or multiple CPT copyright 2021 [employer]. All rights reserved. The codes documented in this report are preliminary and upon sustainability engineer review may be revised to meet current compliance requirements. Devyn Alcantar DO 03/01/2025 4:05:07 PM This report has been signed electronically. Number of Addenda: 0 Note Initiated On: 03/01/2025 3:31 PM
--- NOTE | 2025-03-01 16:05 | OP.CCLET_ITS ---
03/01/2025 Ophelia Soria [address] [place] [address] Re : Colonoscopy procedure for Maryse Kelley Dear Dr. Soria This procedure was performed on Saturday, March 01, 2025. My impressions and recommendations are as follows: Impressions : - Preparation of the colon was poor. - Stool in the entire examined colon. - One 5 mm polyp in the transverse colon, removed with a jumbo cold forceps. Resected and retrieved. - Diverticulosis in the recto-sigmoid colon, in the sigmoid colon and in the descending colon. Recommendations : - Patient has a contact number available for emergencies. The signs and symptoms of potential delayed complications were discussed with the patient. Return to normal activities tomorrow. Written discharge instructions were provided to the patient. - Resume previous diet. - Continue present medications. - Await pathology results. - Repeat colonoscopy because the bowel preparation was poor. My findings are described in the full procedure note, which is enclosed. If I can be of further assistance, please feel free to contact me at . Sincerely, Devyn Alcantar, 03/01/2025 4:05:07 PM This report has been signed electronically.
[2025-03-01 16:27] LABS: ALB/GLOB Ratio 1.4 RATIO (0.9-2.4); AST(SGOT) 43 U/L (<=31); Alanine Aminotransfer ALT/SGPT 30 U/L (<=34); Albumin, Serum 3.8 g/dL (3.4-4.8); Alkaline Phosphatase 42 U/L (35-104); Anion Gap 12 (5-15); BUN 12 mg/dL (4-19); BUN/Creat Ratio 12.4 RATIO (10-20); Calcium,Total 9.1 mg/dL (7.6-11.0); Carbon Dioxide 28.6 mmol/L (21.0-32.0); Chloride 105 mmol/L (98-108); Cholesterol 212 mg/dL (<=200); Creatinine, Serum 0.94 mg/dL (0.70-1.20); EST Glomerular Filtration Rate 68 (>60); Estimated Creatinine Clearance 69.72 ml/min (50-250); Globulin 2.7 g/dL (2.2-4.2); Glucose 93 mg/dL (70-99); High Density Lipoprotein 29 mg/dL; Low Density Lipoprotein Calc. 112 mg/dL; Potassium 4.2 mmol/L (3.3-5.1); Protein, Total 6.5 g/dL (5.9-8.4); Sodium Level 145 mmol/L (133-145); Thyroid Stim Hormone (TSH) 0.992 uIU/mL (0.300-4.200); Total Bilirubin 0.25 mg/dL (0.00-1.30); Triglycerides 356 mg/dL; Very Low Density Lipoprotein 71 mg/dL (5-40); Vitamin D,25 Hydroxy 53.9 ng/mL (30-100); cholesterol:hdl ratio screen 7.44
--- NOTE | 2025-03-01 16:49 | PCM.POSTANE2 ---
Anesthesia Postop Eval I Sum Postop Eval Completion status Anesthesia document: Postop Eval 1 completed: Yes Anesthesia Postop Eval I Summary Anesthesia Postop Eval I Summary: Anesthesia Postop Eval I: Assessment Summary Airway patent Yes 03/01/25 15:53 [email or web address] Spontaneous unlabored Yes 03/01/25 15:53 [email or web address] respirations Mental status Awake,Calm 03/01/25 15:53 [email or web address] nausea No 03/01/25 15:53 [email or web address] Vomiting No 03/01/25 15:53 [email or web address] Anesthesia Postop Eval I: Fluid Summary Crystalloid volume administer 700 03/01/25 15:53 [email or web address] (ml) Colloids volume administered ( ml) Blood Product volume administered (ml) Total IV fluid infused 700 03/01/25 15:53 [email or web address] Anesthesia Postop Eval I: Summary Notes Anesthesia Complication No 03/01/25 15:53 [email or web address] Anesthesia Complication Comment: Post-operative progress note Anesthesia: Postop Eval II Evaluation Mental status: Awake Pain Level: 0 nausea: No Vomiting: No
[2025-03-01 17:22] LABS: Red Blood Cells-Urine 0-5 SEEN /hpf (0-5); White Blood Cells 0-5 SEEN /hpf (0-5)
[2025-03-01 17:23] LABS: Squamous Epithelial Cells - UA 0-5 SEEN /hpf (5-10)
== END 2025-03-01 16:59 | disposition home or self-care (01) ==
LOC: EN 13:50 → AC 13:52
PROVIDERS: PCP Internal Medicine; Referring Provider Internal Medicine; Visit Provider Internal Medicine Gastroenterology
PROC: 0DJD8ZZ Inspection of Lower Intestinal Tract, Via Natural or Artificial Opening Endoscopic (ICD-10-PCS; CPT 45378; principal; 2025-03-01 14:55)
DX: Z12.11 Encounter for screening for malignant neoplasm of colon (principal); I11.0 Hypertensive heart disease with heart failure; I50.32 Chronic diastolic (congestive) heart failure; Z79.4 Long term (current) use of insulin; E11.42 Type 2 diabetes mellitus with diabetic polyneuropathy; D12.3 Benign neoplasm of transverse colon; K31.7 Polyp of stomach and duodenum; K21.9 Gastro-esophageal reflux disease without esophagitis; I25.10 Atherosclerotic heart disease of native coronary artery without angina pectoris; K57.30 Diverticulosis of large intestine without perforation or abscess without bleeding; K44.9 Diaphragmatic hernia without obstruction or gangrene; R13.19 Other dysphagia; E78.00 Pure hypercholesterolemia, unspecified; E55.9 Vitamin D deficiency, unspecified; Z79.01 Long term (current) use of anticoagulants; Z79.51 Long term (current) use of inhaled steroids; Z79.84 Long term (current) use of oral hypoglycemic drugs; Z79.85 Long-term (current) use of injectable non-insulin antidiabetic drugs; Z79.899 Other long term (current) drug therapy; Z86.0100 Personal history of colon polyps, unspecified; Z86.16 Personal history of COVID-19; Z86.711 Personal history of pulmonary embolism; Z86.718 Personal history of other venous thrombosis and embolism
CPT/HCPCS: 45380; 44361; 36415; 80053; 80061; 81001; 82043; 82306; 82570; 82962; 84443; 85025; 88305; 88342; 94640; J2405

== ENCOUNTER 2025-03-02 10:55 | Outpatient (RCR) | payer MEDICARE, MEDICAID, SELFPAY ==
[2025-01-13 11:03] VITALS: BMI 39.6
[2025-02-10 11:15] VITALS: BMI 39.7
== END 2025-03-12 23:59 ==
LOC: NS 10:55
PROVIDERS: PCP Internal Medicine; Referring Provider Internal Medicine Cardiovascular Disease; Visit Provider Internal Medicine Cardiovascular Disease
DX: Z71.3 Dietary counseling and surveillance (principal); E11.9 Type 2 diabetes mellitus without complications; E66.01 Morbid (severe) obesity due to excess calories; Z86.39 Personal history of other endocrine, nutritional and metabolic disease; Z68.41 Body mass index [BMI] 40.0-44.9, adult
CPT/HCPCS: 97802

== ENCOUNTER 2025-03-08 10:34 | Emergency (ER) | payer MEDICARE, MEDICAID, SELFPAY ==
[2025-02-10 11:15] VITALS: BMI 39.7
[2025-03-08 10:35] VITALS: BP 104/69; PULSE 88; RESP 18; TEMP 36.8; O2SAT 94; BMI 40.6
--- NOTE | 2025-03-08 10:45 | EKG12_ITS ---
Test Reason : CHEST PAIN Blood Pressure : */* mmHG Vent. Rate : 86 BPM Atrial Rate : 86 BPM P-R Int : 166 ms QRS Dur : 188 ms QT Int : 470 ms P-R-T Axes : 46 0 127 degrees QTcB Int : 562 ms Atrial-sensed ventricular-paced rhythm Abnormal ECG Confirmed by Maxwell Hall ([id number]), supervising film or videotape editor JIM LAKHANI ([id number]) on 03/14/2025 11:27:05 AM Referred By: Confirmed By: Maxwell Hall
--- NOTE | 2025-03-08 10:45 | RAD_ITS ---
PROCEDURE: CHEST PA AND LATERAL 03/08/2025 REASON FOR EXAM: CHEST PAIN TECHNIQUE: Frontal and lateral views of the chest. COMPARISON: Prior study dated February 14, 2025. FINDINGS: Hardware: EKG electrodes are seen. Heart: Prior midline sternotomy. Prior aortic valve replacement. A left-sided dual-chamber pacemaker is seen. Mediastinum: Unremarkable. Lungs: Lungs are clear. Bones: Degenerative changes are identified within the thoracic spine. Status post right shoulder replacement. RAD/Chest PA and Lateral IMPRESSION: NO ACUTE FINDINGS. Reading Location: [place] [id number]
--- NOTE | 2025-03-08 11:00 | CT_ITS ---
PROCEDURE: ABDOMEN/PELVIS WITHOUT CONT 03/08/2025 REASON FOR EXAM: RIGHT FLANK/GROIN PAIN TECHNIQUE: Abdomen and pelvis CT without intravenous contrast. Noncontrast technique limits evaluation of the abdominal and pelvic viscera. Coronal and Sagittal reconstruction series were provided. One or more dose reduction techniques were used (e.g., Automated exposure control, adjustment of the mA and/or kV according to patient size, use of iterative reconstruction technique). PATIENT PREPARATION: Per protocol ORAL CONTRAST TYPE: None. DLP = 1140.19 mGy-cm COMPARISON: None FINDINGS: Lung bases: Clear Liver: The liver shows low-density consistent with fatty infiltration, Hounsfield units = 34. Gallbladder: Unremarkable Spleen: Unremarkable Pancreas: Unremarkable Adrenals: Unremarkable Kidneys: There is no renal stone or hydronephrosis. There is a 2.7 cm simple cyst in the midpole of the left kidney. Bladder: Unremarkable Reproductive Organs: There is a 3 cm simple appearing cyst in the left ovary, image 165/191. Bowel: There is a moderate stool load. The small bowel loops are nondistended. Appendix: Unremarkable Lymph nodes: There is no pathologic adenopathy by size criteria. Vasculature: Atherosclerotic calcifications are noted. Peritoneum / Retroperitoneum: There is a 10.0 x 10.0 cm fat density lesion in the right pericolic gutter, image 111/191, with increased density in the adjacent mesenteric fat at the superior and inferior aspect. Bones: Postsurgical changes are noted in the lumbar region. There is no visible acute bony abnormality. CT/Abdomen/Pelvis without Cont IMPRESSION: The liver shows low-density consistent with fatty infiltration, Hounsfield unit s = 34.There is a 2.7 cm simple cyst in the midpole of the left kidney. There is a 3 cm simple appearing cyst in the left ovary, image 165/191. There is a 10.0 x 10.0 cm fat density lesion in the right pericolic gutter, shaylee ge 111/191, with increased density in the adjacent mesenteric fat at the superior and inferior aspect. The differential includes mesenteric lipoma, panniculitis, and mesenteric desmoid tumor. Reading Location: [facility]
[2025-03-08 11:01] LABS: Absolute Lymphocyte Count 1.95 X10^3/uL (0.83-4.51); Basophil# 0.08 X10^3/uL; Basophil% 1.2 % (0-1); Eosinophil# 0.16 X10^3/uL; Eosinophils% 2.3 % (0-5); Hematocrit 47.5 % (37-47); Hemoglobin 15.1 g/dL (12.0-15.0); Lymphocyte # 1.95 X10^3/ul (0.83-4.51); Lymphocyte % 28.1 % (19-41); Mean Corp Hgb Conc 31.8 g/dL (32-36); Mean Corpuscular Hgb 26.6 pg (27.0-32.0); Mean Corpuscular Volume 83.6 fL (81-99); Mean Platelet Vol. 10.6 fl (6.2-12.0); Monocyte# 0.66 X10^3/uL; Monocyte% 9.5 % (0-10); NRBC Flagged by Analyzer 0 % (0-5); Neutrophil # 4.04 X10^3/uL (2.7-7.7); Neutrophil % 58.3 % (47-70); Platelet Count 295 K/mm3 (150-450); RBC Distribution Width CV 17.7 % (11.6-14.6); RBC Distribution Width SD 52.6 fl (35.1-43.9); Red Blood Count 5.68 M/mm3 (4.2-5.4); White Blood Count 6.9 K/mm3 (4.4-11.0)
[2025-03-08 11:20] LABS: D-Dimer Quantitative (DVT/PE) 0.42 FEU/ug/m (0.27-0.49)
--- NOTE | 2025-03-08 11:26 | ED.VIS.CHEST ---
HPI History of Present Illness Chief Complaint: Chest Pain Narrative Narrative: Chief complaint and HPI: Right flank/hip pain and chest pain. 64-year-old female with history of COPD, blood clots on warfarin, CAD, status post CABG, DM, right sciatica presents for evaluation of right flank/hip pain and chest pain. Patient states that her right hip pain has been acting up over the past several days. She denies any trauma or injury. States that she is due to have an injection for her sciatica in March. She states is slightly different than her sciatica due to it being more severe. It radiates into her right groin. Denies any numbness/tingling, weakness, urinary retention, stool or urinary continence, saddle anesthesias. Does state that she has been having some urinary frequency which she is concerned about a UTI. Patient states that she took her home narcotic for pain today and shortly later developed chest pain. Did take full dose aspirin. Patient's chest pain improved and route with EMS. She denies any fever, chills, shortness of breath, abdominal pain, diarrhea, constipation. Review of systems: See HPI Medications: As listed on the chart Allergies: As listed on the chart PFSH: Per chart Vital signs: As listed on the chart. Reviewed. Physical exam: Gen: A&O x3, NAD Head: Normocephalic, atraumatic Eyes: No sclera icterus, conjunctiva clear ENT: Moist mucous membranes Neck: Trachea midline, No JVD CV: RRR, no murmurs, no peripheral edema Resp: Lungs CTA BL, no w/r/c GI: Abd soft, non-distended, non-tender, no r/r/g : No CVA tenderness, no groin rash Musc: Full range of motion of all extremities however limited in right hip secondary to pain-right hip is mildly tender to palpation as well as groin/flank, no deformity, no midline spinal tenderness, no bony step-offs, mild tenderness palpation of the paraspinal musculature of the right lumbar spine, no saddle paresthesia, DP/PT pulses +2 bilaterally, strength equal bilaterally Skin: Warm, dry Neuro: Alert, oriented, grossly intact, sensation intact Psych: Cooperative, appropriate mood and affect [facility] Medical History Wears glasses MRSA infection Open wound Walker as ambulation aid Gastric reflux History of pacemaker Surgical complete heart block Acute on chronic hypoxic respiratory failure COPD exacerbation Acute CVA (cerebrovascular accident) Obesity (BMI 30-39.9) Rectal bleeding Subtherapeutic international normalized ratio (INR) Peripheral neuropathy Positive FIT (fecal immunochemical test) History of transcatheter aortic valve replacement (TAVR) (~04/19/21) COVID-19 Depression Anxiety Discoloration of skin History of steroid therapy Insulin dependent diabetes mellitus Diabetes Arthritis High cholesterol Pulmonary embolism Easy bruising Excessive bleeding Restless legs Back pain Migraine headache TIA (transient ischemic attack) Non-smoker BiPAP (biphasic positive airway pressure) dependence On home oxygen therapy Shortness of breath on exertion Leg cramps History of pain when walking History of edema History of stress test Hx of transesophageal echocardiography (YOLANDA) for monitoring History of echocardiogram Cardiology follow-up encounter Rotator cuff arthropathy of right shoulder History of DVT (deep vein thrombosis) Back pain with sciatica Nonrheumatic aortic (valve) stenosis Essential hypertension Carotid artery disease Atherosclerotic heart disease of [place] coronary artery without angina pectoris Personal history of anaphylaxis Bilateral carotid bruits Body mass index 45.0-49.9, adult Diastolic heart failure COPD (chronic obstructive pulmonary disease) CHELSEY treated with BiPAP History of pulmonary embolism Morbid obesity Type 2 diabetes mellitus Asthma Home Medications ?Medication ?Instructions ?Recorded ?Last Taken ?Type calcium 600 mg-D3 800 unit-mag 40 1 ea PO DAILY vitamins 05/27/16 01/18/25 History nw-einm-ufvu-angel-boron chew tablet fenofibrate nanocrystallized 145 72.5 mg PO QHS cholesterol 04/26/19 01/18/25 History mg tablet trazodone 50 mg tablet 50 mg PO QHS sleep 08/09/19 01/18/25 History epinephrine 0.3 mg/0.3 mL 0.3 mg (0.3 mL) IM X1 PRN 01/18/20 Unknown Rx injection, auto-injector Anaphylaxis #1 ea albuterol sulfate 2.5 mg/3 mL 2.5 mg (3 mL) inhalation Q2H PRN 04/24/20 01/19/25 Rx (0.083 %) solution for nebulization PRN dyspnea, wheezing #180 mL albuterol sulfate 90 mcg/actuation 2 inh inhalation Q4H PRN PRN Sob 04/24/20 01/19/25 Rx aerosol inhaler &/Or Wheezing #18 grams montelukast 10 mg tablet 10 mg PO DAILY allergies/asthma 12/07/20 01/19/25 Rx #30 tabs alendronate 70 mg tablet 70 mg PO WE bone health 12/21/20 01/12/25 History beclomethasone dipropionate 80 1 inh inhalation BID Asthma 03/22/21 01/19/25 History mcg/actuation HFA breath activated aerosol budesonide-formoterol HFA 160 2 puff inhalation BID asthma 03/22/21 01/19/25 History mcg-4.5 mcg/actuation aerosol inhaler ipratropium 0.5 mg-albuterol 3 mg 3 ml inhalation BID asthma 03/22/21 01/18/25 History (2.5 mg base)/3 mL nebulization soln melatonin 10 mg tablet 12 mg PO QHS sleep 04/05/21 01/18/25 History pregabalin 150 mg capsule 150 mg PO TID nerve pain 04/05/21 03/01/25 History meclizine 25 mg tablet 25 mg PO DAILY PRN Vertigo 05/04/21 01/18/25 History docusate sodium 100 mg capsule 100 mg PO DAILY stool softener 08/17/21 Unknown History magnesium 250 mg tablet 400 mg PO DAILY supplement 08/17/21 01/19/25 History levocetirizine 5 mg tablet 5 mg PO DAILY allergies 11/07/21 01/18/25 History dapagliflozin propanediol 10 mg 10 mg PO DAILY diabetes 08/11/22 02/24/25 History tablet (Farxiga) multivitamin (Daily Multi-Vitamin 1 tab PO DAILY SUPPLEMENT 06/12/23 01/19/25 History tablet) tiotropium bromide 18 mcg capsule 18 mcg inhalation DAILY asthma 06/12/23 01/19/25 History with inhalation device azelastine 137 mcg-fluticasone 50 2 spray intranasal BID allergy 08/25/23 01/19/25 History mcg/spray nasal spray cholecalciferol (vitamin D3) 125 125 mcg PO DAILY vitamin-self care 08/25/23 01/19/25 History mcg (5,000 unit) tablet (Vitamin D3) Lactobacillus acidophilus 1 tab PO DAILY Supplement 09/29/23 01/19/25 History (Acidophilus chewable tablet) ondansetron 4 mg disintegrating 4 mg PO DAILY PRN nausea 09/29/23 Unknown History tablet zinc 100 mg tablet 100 mg PO DAILY supplement 09/29/23 01/19/25 History atorvastatin 40 mg tablet 40 mg PO QHS 30 days #30 tabs 09/17/24 01/18/25 Rx topiramate 50 mg tablet 50 mg PO BID 30 days #60 tabs 09/17/24 01/19/25 Rx furosemide 40 mg tablet 40 mg PO .COMPLEX diuresis 09/27/24 01/19/25 History ascorbate calcium (vitamin C) 500 2 g PO DAILY vitamin 01/03/25 01/19/25 History mg tablet mecobalamin (vitamin B12) 5,000 5,000 mcg PO QDAY 01/03/25 01/19/25 History mcg chewable tablet oxycodone-acetaminophen 5 mg-325 1 tab PO BID PRN pain 01/03/25 01/19/25 History mg tablet fluoxetine 40 mg capsule 40 mg PO DAILY 01/19/25 01/19/25 History omeprazole 40 mg capsule,delayed 40 mg PO DAILY gerd 01/19/25 02/28/25 History release rizatriptan 5 mg tablet 5 mg PO PRN 01/19/25 Unknown History semaglutide 2 mg/dose (8 mg/3 mL) 2 mg subcut QWEEK 01/19/25 02/20/25 History subcutaneous pen injector (Ozempic) warfarin 4 mg tablet 4 mg PO DAILY 01/19/25 02/24/25 History warfarin 5 mg tablet 5 mg PO DAILY 01/19/25 02/24/25 History losartan 25 mg tablet 25 mg PO QDAY #90 tabs 02/02/25 03/01/25 Rx metoprolol tartrate 25 mg tablet 25 mg PO BID #180 tabs 02/02/25 03/01/25 Rx linaclotide 290 mcg capsule 290 mcg PO QAM #90 caps 02/22/25 Unknown Rx (Linzess) spironolactone 50 mg tablet 50 mg PO DAILY #30 tabs 02/22/25 Unknown Rx insulin glargine U-300 conc 300 15 unit subcut BID DIABETES 02/24/25 Unknown History unit/mL (1.5 mL) subcutaneous pen (Hazel SolYana U-300 Insulin) diltiazem HCl 180 mg 180 mg PO QPM 03/08/25 Unknown History capsule,extended release 24 hr erenumab-aooe 140 mg/mL mg subcut QMONTH 03/08/25 Unknown History subcutaneous auto-injector (Aimovig Autoinjector) linaclotide 145 mcg capsule 145 mcg PO 03/08/25 Unknown History (Linzess) Allergy/AdvReac Type Severity Reaction Status Date / Time clindamycin Allergy Rash Verified 03/08/25 10:38 erythromycin base Allergy Rash Verified 03/08/25 10:38 (Erythromycin Base) omalizumab (From Xolair) Allergy Chest Verified 03/08/25 10:38 tightness Penicillins Allergy Rash Verified 03/08/25 10:38 sulfamethoxazole (From Allergy Chest Verified 03/08/25 10:38 Bactrim) tightness trimethoprim (From Bactrim) Allergy Chest Verified 03/08/25 10:38 tightness Sulfa (Sulfonamide AdvReac Unknown Unknown Verified 03/08/25 10:38 Antibiotics) Family History Father Heart disease Diabetes CAD (coronary artery disease) Mother CAD (coronary artery disease) CVA (cerebral vascular accident) Diabetes Brother CAD (coronary artery disease) CVA (cerebral vascular accident) Diabetes Unknown Cancer Grandmother CVA (cerebral vascular accident) Diabetes Grandfather CVA (cerebral vascular accident) Grandmother Myocardial infarction Brother Diabetes Sister Diabetes Surgical History Status post cardiac pacemaker procedure History of laminectomy History of colonoscopy History of cardiac catheterization Aortic valve replaced History of left heart catheterization (LHC) (~01/19/21) H/O lumbosacral spine surgery History of rotator cuff surgery Hx of appendectomy History of hernia repair History of section History of neck surgery Social History household members: spouse housing: apartment pets and animals: Yes Smoking Status: Never smoker second hand exposure: No alcohol intake: current alcohol intake frequency: a few times a week substance use type: does not use caffeine: No what type of physical activity do you participate in: none do you feel safe at home: Yes EXAM Physical Exam Const Vital Signs: 03/08/25 10:35 03/08/25 10:58 03/08/25 11:35 Temperature 98.2 F Temperature Source Oral Pulse Rate 88 79 Respiratory Rate 18 16 Respiratory Effort Normal Blood Pressure 104/69 148/76 H Blood Pressure Mean 80 100 Pulse Ox 94 94 Oxygen Delivery Method Room Air Room Air 03/08/25 13:00 03/08/25 13:49 Temperature 98.7 F 98.7 F Temperature Source Temporal Pulse Rate 91 78 Respiratory Rate 12 16 Respiratory Effort Blood Pressure 118/72 167/78 H Blood Pressure Mean 87 107 Pulse Ox 94 99 Oxygen Delivery Method Room Air MDM MDM MDM Narrative Medical decision making narrative: 64-year-old female with history of COPD, blood clots on warfarin, CAD, status post CABG, DM, right sciatica presents for evaluation of right flank/hip pain and chest pain. States that the pain feels similar to her sciatic pain however is slightly different as it is more severe. States that she is supposed to get a injection for her sciatica in March. Endorses chest pain that is now since resolved. Differential diagnosis includes but is not limited to symptomatic sciatica, myofascial spasm, nephrolithiasis, UTI, pleurisy, ACS, pneumonia, PE, arrhythmia. Morphine ordered for pain. Patient already received aspirin prior to arrival via EMS. Cardiac workup ordered including CT abdomen pelvis without contrast to assess for urolithiasis as well as UA. Patient has a pacemaker will interrogate. EKG and chest x-ray reviewed see below. Patient's pacemaker was interrogated, I spoke to the [employer] distribution sales representative over the phone, no arrhythmias or events. CBC without leukocytosis. Patient has mild hemoconcentration of 15.1. Platelets unremarkable. D-dimer unremarkable. BMP without significant electrolyte abnormality or [place]. BNP unremarkable. Troponin negative x 2. UA positive for glucose, patient is a diabetic. Negative for UTI or ketones. CT abdomen pelvis without urolithiasis or acute intra-abdominal pathology. Patient does have concerns for fatty liver as well as a 2.7 cm simple cyst in the left kidney. 3 cm simple appearing cyst in the left ovary. She has a 10 x 10 cm fat density lesion in the right pericolic gutter, with increased density in the adjacent mesenteric fat at the superior and inferior aspect. The differential includes mesenteric lipoma, panniculitis, mesenteric desmoid tumor. Physical exam is not consistent with panniculitis. On reexamination, patient's pain is improved. She is able to ambulate. Her vitals are stable other than mild hypertension. She is asymptomatic by her chest pain. Patient stable to discharge home. Recommend following up with PCP. Her and her daughter were informed of all the incidental findings on the CT abdomen pelvis. They were given a printout of the radiology read. They were told that they need to follow-up with the PCP for all these especially the concern for the fat density lesion. They confirmed understanding. Return to explained. EKG: Interpreted by me/EM physician: EKG shows atrial sensed ventricular paced rhythm. Heart rate 86. Looks similar to previous EKG earlier this month Diagnostic: Interpreted by me/EM physician: Chest x-ray without pneumonia, effusion, cardiomegaly, pneumothorax. Patient does have pacemaker. Previous surgery visualized. Radiology in agreement. Impression: 1. Right hip/groin pain 2. Chest pain, resolved 3. History of right sciatica 4. Incidental findings on CT abdomen pelvis that will need further workup outpatient including concern for fatty liver, simple cyst of the left kidney, left ovarian cyst, and a 10 x 10 cm fat density lesion in the right pericolic gutter Lab Data Labs: Laboratory Results - last 24 hr 03/08/25 03/08/25 03/08/25 10:21 12:10 12:24 WBC 6.9 RBC 5.68 H Hgb 15.1 H Hct 47.5 H MCV 83.6 MCH 26.6 L MCHC 31.8 L RDW Std Deviation 52.6 H RDW Coeff of Carmencita 17.7 H Plt Count 295 MPV 10.6 Immature Gran % (Auto) 0.600 Neut % (Auto) 58.3 Lymph % (Auto) 28.1 [place] % (Auto) 9.5 Eos % (Auto) 2.3 Baso % (Auto) 1.2 H Absolute Neuts (auto) 4.0 Absolute Lymphs (auto) 1.95 Nucleated RBC % 0 D-Dimer Quant (PE/DVT) 0.42 Sodium 137 Potassium 3.9 Chloride 98 Carbon Dioxide 25.5 Anion Gap 14 BUN 20 H Creatinine 0.90 Estim Creat Clear Calc 74.59 Est GFR (MDRD) Non-Af 71 BUN/Creatinine Ratio 21.8 H Glucose 107 H Calcium 9.9 Troponin T High Sens 11 D Troponin T Hi Sens 2 Hr 11 NT pro BNP II 125 Urine Color Yellow Urine Clarity Clear Urine pH 5.0 Ur Specific [place] 1.020 Urine Protein 15 H Urine Glucose (UA) 1000 H Urine Ketones Negative Urine Occult Blood Negative Urine Nitrite Negative Urine Bilirubin Negative Urine Urobilinogen Normal Ur Leukocyte Esterase 25 H Urine RBC 0-5 SEEN Urine WBC 0-5 SEEN Ur Squamous Epith Cells 0-5 SEEN Urine Bacteria 0 SEEN Urine Mucus 0 SEEN Radiography Diagnostic Testing: Clinical Impression(s) from Imaging Studies Chest X-Ray 03/08/25 10:45 IMPRESSION: NO ACUTE FINDINGS. Reading Location: [facility] Abdomen/Pelvis CT 03/08/25 11:00 IMPRESSION: The liver shows low-density consistent with fatty infiltration, Hounsfield units = 34.There is a 2.7 cm simple cyst in the midpole of the left kidney. There is a 3 cm simple appearing cyst in the left ovary, image 165/191. There is a 10.0 x 10.0 cm fat density lesion in the right pericolic gutter, image 111/191, with increased density in the adjacent mesenteric fat at the superior and inferior aspect. The differential includes mesenteric lipoma, panniculitis, and mesenteric desmoid tumor. Reading [facility] Triage Chief Complaint: Chest Pain ED Provider: Jimmy Nunez Dx/Rx/DC Orders Clinical Impression: Chest pain, Hip pain, right Instructions: Medicine for Pain, ED Chest Pain, Uncertain Cause Prescriptions: No Action trazodone 50 mg tablet 50 mg PO QHS albuterol sulfate 2.5 mg /3 mL (0.083 %) solution for nebulization 2.5 mg INHALATION Q2H PRN PRN (Reason: dyspnea, wheezing) Qty: 180 6RF albuterol sulfate 90 mcg/actuation HFA aerosol inhaler 2 inh INHALATION Q4H PRN PRN (Reason: Sob &/Or Wheezing) Qty: 18 6RF montelukast 10 mg tablet 10 mg PO DAILY Qty: 30 6RF alendronate 70 mg tablet 70 mg PO WE meclizine 25 mg tablet 25 mg PO DAILY PRN (Reason: Vertigo) magnesium 250 mg tablet 400 mg PO DAILY levocetirizine 5 mg tablet 5 mg PO DAILY ascorbate calcium (vitamin C) 500 mg tablet 2 g PO DAILY mecobalamin (vitamin B12) 5,000 mcg tablet,chewable 5,000 mcg PO QDAY losartan 25 mg tablet 25 mg PO QDAY Qty: 90 3RF metoprolol tartrate 25 mg tablet 25 mg PO BID Qty: 180 3RF docusate sodium 100 mg capsule 100 mg PO DAILY Patient Comments: Stool softner [id number]-[id number]-jjzr-boron 1 EACH tablet,chewable 1 ea PO DAILY fenofibrate nanocrystallized 145 MG tablet 72.5 mg PO QHS ipratropium-albuterol 0.5 mg-3 mg(2.5 mg base)/3 mL solution for nebulization 3 ml INHALATION BID Rx Instructions: Continue until re-evaluation per pulmonary with possible transition back to home regimen at that time. budesonide-formoterol 160-4.5 mcg/actuation HFA aerosol inhaler 2 puff INHALATION BID beclomethasone dipropionate 80 mcg/actuation HFA aerosol breath activated 1 inh inhalation BID furosemide 40 mg tablet 40 mg PO .COMPLEX Rx Instructions: 40 mg orally BID WE; take on Friday, Friday, Friday pregabalin 150 mg capsule 150 mg PO TID melatonin 10 mg Tablet 12 mg PO QHS dapagliflozin propanediol [Farxiga] 10 mg tablet 10 mg PO DAILY tiotropium bromide 18 mcg capsule, w/inhalation device 18 mcg inhalation DAILY Rx Instructions: puncture 1 cap using device; one dose = 2 inhalations multivitamin [Daily Multi-Vitamin] Tablet 1 tab PO DAILY cholecalciferol (vitamin D3) [Vitamin D3] 125 mcg (5,000 unit) tablet 125 mcg PO DAILY azelastine-fluticasone 137-50 mcg/spray spray,non-aerosol 2 spray intranasal BID Rx Instructions: administer into each nostril ondansetron 4 mg tablet,disintegrating 4 mg PO DAILY PRN (Reason: nausea) Acidophilus Tablet,Chewable 1 tab PO DAILY Patient Comments: 175 mg tab zinc 100 mg tablet 100 mg PO DAILY oxycodone-acetaminophen 5-325 mg tablet 1 tab PO BID PRN (Reason: pain) topiramate 50 mg Tablet 50 mg PO BID 30 Days Qty: 60 0RF atorvastatin 40 mg Tablet 40 mg PO QHS 30 Days Qty: 30 0RF insulin glargine U-300 conc [Toujeo SoloStar U-300 Insulin] 300 unit/mL (1.5 mL) insulin pen 15 unit SUBCUT BID Patient Comments: INJECT 50 UNITSESUBCUTANEOUSLY DAILY ADJUSTS BASED ON BLOOD GLUCOSE Rx Instructions: TOUJEO fluoxetine 40 mg capsule 40 mg PO DAILY warfarin 4 mg tablet 4 mg PO DAILY Patient Comments: HOLDING FOR COLONOSCOPY Rx Instructions: WITH 5MG TAB rizatriptan 5 mg tablet 5 mg PO PRN Ozempic 2 mg/dose (8 mg/3 mL) pen injector 2 mg subcut QWEEK warfarin 5 mg tablet 5 mg PO DAILY Patient Comments: HOLDING FOR COLONOSCOPY Rx Instructions: WITH 4MG TAB omeprazole 40 mg capsule,delayed release(DR/EC) 40 mg PO DAILY diltiazem HCl 180 mg capsule,extended release 24hr 180 mg PO QPM Linzess 145 mcg capsule 145 mcg PO Aimovig Autoinjector 140 mg/mL auto-injector SUBCUT QMONTH epinephrine 0.3 mg/0.3 mL auto-injector 0.3 mg IM X1 PRN (Reason: Anaphylaxis) Qty: 1 0RF spironolactone 50 mg tablet 50 mg PO DAILY Qty: 30 11RF Rx Instructions: Take at evening meal with Losartan Linzess 290 mcg capsule 290 mcg PO QAM Qty: 90 3RF Rx Instructions: take once daily 30 minutes before first meal Primary Care Provider: Ophelia Soria Referrals: Ophelia Soria DO [Primary Care Provider] - 3-5 Days Activity Restrictions/Additional Instructions: Return back to the ED if symptoms change or worsen. Follow-up with your primary care physician for the incidental findings on your CT abdomen/pelvis they told you about. I printed out the read for you. CT abdomen pelvis showed concern for fatty liver disease. Simple cyst of the left kidney and cyst of the left ovary. You have a 10 x 10 cm fat density lesion in the right paracolic gutter, this needs to be worked out further outpatient. Print Language: Bahraini Disposition Disposition: Home, Self Care Discharge Date/Time: 03/08/25 13:50
[2025-03-08 11:35] VITALS: BP 148/76; PULSE 79; RESP 16; O2SAT 94
[2025-03-08 11:48] LABS: Anion Gap 14 (5-15); BUN 20 mg/dL (4-19); BUN/Creat Ratio 21.8 RATIO (10-20); Calcium,Total 9.9 mg/dL (7.6-11.0); Carbon Dioxide 25.5 mmol/L (21.0-32.0); Chloride 98 mmol/L (98-108); EST Glomerular Filtration Rate 71 (>60); Estimated Creatinine Clearance 74.59 ml/min (50-250); Glucose 107 mg/dL (70-99); Potassium 3.9 mmol/L (3.3-5.1); Pro- Brain NATRIURETIC PEPTIDE 125 pg/mL (<=900); Sodium Level 137 mmol/L (133-145); Troponin T High Sensitivity 11 ng/L (<=14)
[2025-03-08] MEDS: Morphine 2 MG/ML Syringe IV (11:53)
[2025-03-08 12:19] LABS: Bacteria 0 SEEN /hpf (None Seen); Mucous, Urine 0 SEEN /hpf (<or=2+)
[2025-03-08 12:27] LABS: Color, Urine Yellow (Yellow); Glucose, Dipstick 1000 mg/dl (Normal); Ketone-Dipstick Negative (Negative); Leukocyte Esterase-Dipstick 25 /ul (Negative); Nitrite-Dipstick Negative (Negative); Occult Blood-Urine Negative /ul (Negative); Protein-Dipstick 15 mg/dl (Negative); Urine Bilirubin Dipstick Negative (Negative); Urine Clarity Clear (Clear); Urine Urobilinogen Normal (Normal)
[2025-03-08 12:56] LABS: Troponin T High Sens 2 HR 11 ng/L (<=14)
[2025-03-08 13:00] VITALS: BP 118/72; PULSE 91; RESP 12; TEMP 37.1; O2SAT 94
[2025-03-08 13:34] LABS: Red Blood Cells-Urine 0-5 SEEN /hpf (0-5); Squamous Epithelial Cells - UA 0-5 SEEN /hpf (5-10); White Blood Cells 0-5 SEEN /hpf (0-5)
[2025-03-08 13:49] VITALS: BP 167/78; PULSE 78; RESP 16; TEMP 37.1; O2SAT 99
== END 2025-03-08 13:50 | disposition home or self-care (01) ==
PROVIDERS: Emergency Provider Surgery; PCP Internal Medicine; Visit Provider Surgery
DX: R07.9 Chest pain, unspecified (principal); I11.0 Hypertensive heart disease with heart failure; I50.30 Unspecified diastolic (congestive) heart failure; J44.9 Chronic obstructive pulmonary disease, unspecified; E11.42 Type 2 diabetes mellitus with diabetic polyneuropathy; Z79.4 Long term (current) use of insulin; R93.5 Abnormal findings on diagnostic imaging of other abdominal regions, including retroperitoneum; M25.551 Pain in right hip; M54.41 Lumbago with sciatica, right side; E78.00 Pure hypercholesterolemia, unspecified; I25.10 Atherosclerotic heart disease of native coronary artery without angina pectoris; Z95.0 Presence of cardiac pacemaker; Z95.1 Presence of aortocoronary bypass graft; Z79.01 Long term (current) use of anticoagulants; Z79.84 Long term (current) use of oral hypoglycemic drugs; Z79.85 Long-term (current) use of injectable non-insulin antidiabetic drugs; Z79.899 Other long term (current) drug therapy; Z86.16 Personal history of COVID-19; Z86.711 Personal history of pulmonary embolism; Z86.718 Personal history of other venous thrombosis and embolism
CPT/HCPCS: 71046; 74176; 80048; 81001; 83880; 84484; 85025; 85379; 93005; 96360; 99285; A4216

== ENCOUNTER 2025-03-11 14:15 | Outpatient (RCR) | payer MEDICARE, MEDICAID, SELFPAY ==
[2025-01-13 11:03] VITALS: BMI 39.6
--- NOTE | 2025-02-10 11:01 | PCM.CR.ITP ---
Exercise - Initial Assessment Visit Session #:: 10 Physician Prescribed Exercise Modalities: SciFit Stepper, SciFit Pro-II Ergometer and SciFit Lateral [place] Nutrition - Initial Assessment Weight Mgt (Other Care) Height: 5 ft 4 in Weight:: 231 lb 8 oz BMI: 39.7 Psychosocial - Initial Assess Target Goals Target Goals Referral to Behavioral Health PS - Interventions: Yes: Attend Stress Management Classes Patient Health Questionnaire PHQ-9 Screening 30-Day Re-eval Assessment: 1. Little interest or pleasure in doing things: Several days 2. Feeling down, depressed, or hopeless: Not at all 3. Trouble falling or staying asleep, or sleeping too much: Nearly every day 4. Feeling tired or having little energy: More than half the days 5. Poor appetite or overeating: More than half the days 6. Feeling bad about yourself -- or that you are a failure or have let yourself or your family down: Not at all 7. Trouble concentrating on things, such as reading the newspaper or watching television: Not at all 8. Moving or speaking so slowly that other people could have noticed. Or the opposite - being so fidgety or restless that you have been moving around a lot more than usual: Not at all 9. Thoughts that you would be better off , or of hurting yourself in some way: Not at all How difficult have these problems made it for you to do your work, take care of things at home, or get along with other people?: Very difficult Total Score: 8 Self-Efficacy 6-Item Scale 30-Day Re-eval Assessment: We would like to know how confident you are in doing certain activities. Please select your confidence level for: Fatigue Select Number: 3 Physical Discomfort or Pain Select Number: 2 Emotional Distress Select Number: 3 Other Symptoms or Health Problems Select Number: 3 Different Tasks and Activities Select Number: 3 Medication Select Number: 6 Total Score:: 3 Nutrition Survey Nutrition Survey Instructions Scoring Instructions Exercise - 30-day Assessment Visit Date of Eval: 02/10/25 Session #:: 10 Physician Prescribed Exercise Modalities: SciFit Stepper, SciFit Pro-II Ergometer and SciFit Lateral [place] Frequency: 3x/week for 12 weeks [36 sessions] Intensity: 60-80% of age predicted maximum heart rate reserve Duration: 30 - 45 minutes Current METSs:: 2.8 Target Heart Rate:: 93-116 Current RPE:: 12-15 Maximum Excercise HR:: 96 Resting Blood Pressure: 134/64 Maximum Exercise Blood Pressure: 132/64 EKG Type: Ventricular paced rhythm w/ a rare PVC Outcomes & Goals Goals:: Verbalizes understanding of THR, RPE & goal METS by session 6, Documents in home exercise log/reports 30 min aerobic 5 day/wk by DC, Demonstrates accurate pulse taking by DC and Other additional outcome/goals: see below Intervention & Plan Exercise Program Goals: Instruct on personal THR & RPE, Instruct on MET level & personal MET goal, Show patient to take own pulse /validate performance until accurate, Instruct on home exercise and Other additional plan/int Physical Activity Home Exercise Physical Activity - Home Exercise: Safe Exercise, Warm-up, Self-monitoring, Cool-Down, Home Exercise > 30 min Daily and Sitting Time <3 hours/daily Outcomes & Goals Outcomes/Goals: Demonstrates correct Warm-up/exercise Cool-Down (S3) if = 2.5 METs, Verbalizes symptoms of exercise intolerance by Session 3 (S3), Demonstrate safe equipment use (S3) & follows exercise prescrition (6) and Other: See below Intervention & Plan Plan/Intervention: Instruct warm-up & cool-down if exercising at > 2 METs, Instruct on symptoms of exercise intolerance & actions to take, Instruct & monitor on saf, Assess intial functional capacity & safety risk and Other See below 30-day Reassessments 30 day Reassessments:: Progressing Reassessment Notes & Comments:: RPE explained to pt. Pt demonstrates understanding in her daily sessions. Exercise - 60-day Assessment Physician Prescribed Exercise Modalities: SciFit Stepper, SciFit Pro-II Ergometer and SciFit Lateral [employer] Account Coordinator Exercise - 90-day Assessment Physician Prescribed Exercise Modalities: SciFit Stepper, SciFit Pro-II Ergometer and SciFit Lateral [place] Exercise - Final/Discharge Physician Prescribed Exercise Modalities: SciFit Stepper, SciFit Pro-II Ergometer and SciFit Lateral [place] Nutrition - 30-Day Assessment Program Goals Nutrition Program Goals Patient has diagnosis of Hyperlipidemia (ICD E78)?: Yes Visit Date of Eval: 02/10/25 Session #:: 10 Cholesterol/Lipids (Other Core Measures) Determine presence & major risk factors that modify LDL goal: Hypertension or hypertensive medication, Low HDL cholesterol <40 mg/dL*, Family history of premature CHD in Male < 55 years: female <65 yearsFa and Age men > 45 years; women >/= 55 years Outcomes/Goals: Pt IDs own risk factors & lifestyle modifications by Session 10, Verbalizes symptoms of angina & response by session 3., Pt independently manages and Other Additional Outcomes/Goals: Intervention/Plan: Advocate for lipid panel cholesterol medication if applicable, Instruct on personal lipid levels & lipid goals/NCEP guidelines, Instruct on cholesterol and Other additional plan/int Diabetes (Other Core Measures) Diabetes Type: Diagnosis Type II ICD-10 E11 Insulin dependent injection/pump?: Yes Non-Insulin Dependent?: Yes Do you monitor your blood sugar at home?: Yes 30-day Reassessments:: Progressing Reassessment Notes & Comments:: Pt is scheduled to meet with our corrective therapy aide teacher 03/02/25 for 1 on 1 teaching. Weight Mgt (Other Care) Height: 5 ft 4 in Weight:: 231 lb 8 oz BMI: 39.7 Diagnosis Overweight/Obesity BMI> 30% ICD-10 E66: Yes Diagnosis High BMI/Morbid Obesity BMI> 35% ICD-10 Z68: Yes Outcomes/Goals: Pt sets, maintains & shows weight loss goal & trend during rehab and Other additional outcomes/goals Intervention/Plan: Instruct on ideal BMI & set weight loss goal w/patient, Assist pt to ID & incorporate diet changes for weight loss by S9, Refer to Structured Weight Loss program as appropriate, Encourage goal of using 250-300dcal per session for weight loss and Other additional plan/interventions 30 day Reassessments:: Progressing Reassessment Notes & Comments:: Pt has not attended rehab since 12/27/24. Pt is on med hold per licensing and registration director. Healthy Eating Habits Will attend diet classes:: Yes Outcomes/Goals:: Consume diet rich in vegs,fruits,whole grain/high fiber,fish,lean meat, Limit sat/trans fats,cholesterol & added salts & sugars and Other additional outcome/goals: 30-day Reassessments:: Progressing Reassessment Notes & Comments:: Pt has not attended rehab since 12/27/24. Pt is on med hold per licensing and registration director. Pt will also attend nutrition class in rehab. Education Gave educational materials for:: Signs & symptoms of hypoglycemia, Signs & symptoms of hyperglycemia, Relate diabetes to coronary artery disease and Healthy eating Nutrition - 60-Day Assessment Weight Mgt (Other Care) Height: 5 ft 4 in Weight:: 231 lb 8 oz BMI: 39.7 Core - 30-Day Assessment Visit Date of Eval: 02/10/25 Session #:: 10 Medication Compliance Preventative Medication(s):: Statin/lipid and Warfarin/Coumadin H/O mental health issues: depression, anxiety, or addiction?: No Doesn?t believe in the benefits of treatment?: No Believes medications are unnecessary or harmful?: No Has a concern about medication side effects?: No Expresses concern over the cost of medications?: No Outcomes/Goals: Verbalizes medications,desired effect & common side effects @ DC, Pt self-reports following medication regimen, Keeps card in wallet w/medications listed by DC and Other additional outcome/goals: Interventions/plans: Instruct on medication effects & side effects, Review medication list w/patient every two weeks, Instruct importance of taking meds as ordered & assist problem solving and Other additional Tobacco Use Tobacco Use: Non-smoker Hypertension Hypertension Diagnosis:: Hypertension ICD-10 I10 Resting Blood Pressure:: 134/64 [place] [employer] Hypertension Guidelines Peak Exercise Blood Pressure:: 132/64 Outcomes/Goals: Able to verbalize/achieve optimal blood pressure <130/80, Incorporates diet changes & exercise for blood pressure control by DC and Other additional outcomes/goals Interventions/plan: Instruct on optimal blood pressure, hypertension & medications, Instruct on effects of sodium, alcohol, stress, exercise &hypertension and Other additional plan/interventions 30 day Reassessments:: Progressing Reassessment Notes & Comments:: Pt's BP's are within AHA normal limits on most days. Pt is scheduled to attend nutrition class and meet with our corrective therapy aide teacher. Low sodium diet and weight loss will be encouraged. Will continue to monitor and report to pt's physician if necessary. Tobacco Cessation Referral Smoking Cessation Referral:: No Individual Education/Counseling:: No Education Schedule Given:: Yes Psychosocial - 30-Day Assess VIsit Date of Eval: 02/10/25 Session #:: 10 History of previous Mental disease:: No Target Goals Target Goals Psychosocial Test Tool Used:: [employer] Power QOL Cardiac and PHQ-9 Questionnaire phq-9 Severity See PHQ-9 Score: 8 Referral to Behavioral Health PS - Interventions: Yes: Attend Stress Management Classes Outcomes/Goals: See list Psychosocial Outcomes/Goals:: ID's personal stressors & 2 strategies to manage stress by discharge and Other Additional outcome/goals: Intervention/Plan: See List Interventions/Plan:: Assess stressors,coping strategies & signs of derpression on admission, Instruct/assist pt to develop coping & personal stress Mgt strategies, Refer to Behavioral Health if appropriate, Refer to Physician if appropriate, Instruct patient to recognize signs & symptoms of depression, Instruct patient to recog and Other additional plan/intervention 30-day Reassessments: 30 day Reassessments:: Progressing Reassessment Notes & Comments:: Pt will attend stress management class. Pt denies any psychosocial issues at this time Psychosocial - 60-Day Assess Target Goals Target Goals Referral to Behavioral Health PS - Interventions: Yes: Attend Stress Management Classes Outcomes/Goals: See list Psychosocial Outcomes/Goals:: ID's personal stressors & 2 strategies to manage stress by discharge and Other Additional outcome/goals: Psychosocial - 90-Day Assess Target Goals Target Goals Referral to Behavioral Health PS - Interventions: Yes: Attend Stress Management Classes Psychosocial - Final Assessmen Target Goals Target Goals Referral to Behavioral Health PS - Interventions: Yes: Attend Stress Management Classes Nutrition - 90-Day Assessment Weight Mgt (Other Care) Height: 5 ft 4 in Weight:: 231 lb 8 oz BMI: 39.7 Nutrition - Final Assessment Weight Mgt (Other Care) Height: 5 ft 4 in Weight:: 231 lb 8 oz BMI: 39.7
[2025-02-10 11:15] VITALS: BP 134/64; BMI 39.7
--- NOTE | 2025-03-11 09:46 | PCM.CR.ITP ---
Exercise - Initial Assessment Physician Prescribed Exercise Modalities: Christine Ledesma AD-7, SciFit Stepper, SciFit Pro-II Ergometer and SciFit Lateral Caption Writer Nutrition - Initial Assessment Weight Mgt (Other Care) Height: 5 ft 4 in Weight:: 231 lb BMI: 39.6 BMI (Report if calculated above): 39.6 Core - Initial Assessment Hypertension Resting Blood Pressure:: 116/64 [place] [employer] Hypertension Guidelines Psychosocial - Initial Assess Target Goals Target Goals Referral to Behavioral Health PS - Interventions: Yes: Attend Stress Management Classes and No: Referral to Physician if PHQ-9 if score is 5-9: (Pt following with PCP closely and denies any psychosocial needs at this time) Patient Health Questionnaire PHQ-9 Screening 60-Day Re-eval Assessment: 1. Little interest or pleasure in doing things: Several days 2. Feeling down, depressed, or hopeless: Not at all 3. Trouble falling or staying asleep, or sleeping too much: Nearly every day 4. Feeling tired or having little energy: More than half the days 5. Poor appetite or overeating: More than half the days 6. Feeling bad about yourself -- or that you are a failure or have let yourself or your family down: Not at all 7. Trouble concentrating on things, such as reading the newspaper or watching television: Not at all 8. Moving or speaking so slowly that other people could have noticed. Or the opposite - being so fidgety or restless that you have been moving around a lot more than usual: Not at all 9. Thoughts that you would be better off , or of hurting yourself in some way: Not at all How difficult have these problems made it for you to do your work, take care of things at home, or get along with other people?: Very difficult Total Score: 8 Self-Efficacy 6-Item Scale 60-Day Re-eval Assessment: We would like to know how confident you are in doing certain activities. Please select your confidence level for: Fatigue Select Number: 3 Physical Discomfort or Pain Select Number: 2 Emotional Distress Select Number: 3 Other Symptoms or Health Problems Select Number: 3 Different Tasks and Activities Select Number: 3 Medication Select Number: 6 Total Score:: 3 Nutrition Survey Nutrition Survey Instructions Scoring Instructions Exercise - 30-day Assessment Physician Prescribed Exercise Modalities: Schwinn Airdyne AD-7, SciFit Stepper, SciFit Pro-II Ergometer and SciFit Lateral Caption Writer Exercise - 60-day Assessment Physician Prescribed Exercise Modalities: Christine Ledesma AD-7, SciFit Stepper, SciFit Pro-II Ergometer and SciFit Lateral Caption Writer Exercise - 90-day Assessment Visit Date of Eval: 03/11/25 Session #:: 18 Physician Prescribed Exercise Modalities: Christine Quirozne AD-7, SciFit Stepper, SciFit Pro-II Ergometer and SciFit Lateral [place] Frequency: 3x/week for 12 weeks [36 sessions] Intensity: 60-80% of age predicted maximum heart rate reserve Duration: 30 - 45 minutes METs - Progression 0.5-1.0 weekly:: 0.5-1.0 Current METSs:: 3 Target Heart Rate:: 93-116 Target RPE 12-16:: 12-16 Current RPE:: 13 Maximum Excercise HR:: 98 Resting Blood Pressure: 106/68 Maximum Exercise Blood Pressure: 112/80 EKG Type: Ventricular paced rhythm with rare pac/pvc, T wave inversion Current Physical Activity or Exercising minutes: 30-45 Outcomes & Goals Goals:: Verbalizes understanding of THR, RPE & goal METS by session 6, Documents in home exercise log/reports 30 min aerobic 5 day/wk by DC and Demonstrates accurate pulse taking by DC Intervention & Plan Exercise Program Goals: Instruct on personal THR & RPE, Instruct on MET level & personal MET goal, Show patient to take own pulse /validate performance until accurate and Instruct on home exercise 30-day Reassessments 30 day Reassessments:: Progressing Reassessment Notes & Comments:: Pt utilizes RPE scale appropriately, pt instructed on homes exercise, pt instructed on taking pulse Physical Activity Home Exercise Physical Activity - Home Exercise: Safe Exercise, Warm-up, Self-monitoring, Cool-Down, Home Exercise > 30 min Daily and Sitting Time <3 hours/daily Outcomes & Goals Outcomes/Goals: Demonstrates correct Warm-up/exercise Cool-Down (S3) if = 2.5 METs, Verbalizes symptoms of exercise intolerance by Session 3 (S3) and Demonstrate safe equipment use (S3) & follows exercise prescrition (6) Intervention & Plan Plan/Intervention: Instruct warm-up & cool-down if exercising at > 2 METs, Instruct on symptoms of exercise intolerance & actions to take, Instruct & monitor on saf and Assess intial functional capacity & safety risk 30-day Reassessments 30 day Reassessments:: Progressing Reassessment Notes & Comments:: Pt warms up and cools down correctly with little direction, pt verbalizes symptoms of exercise intolerance and knows what actions to take when they occur Exercise - Final/Discharge Physician Prescribed Exercise Modalities: Christine Ledesma AD-7, SciFit Stepper, SciFit Pro-II Ergometer and SciFit Lateral Metolius Nutrition - 30-Day Assessment Weight Mgt (Other Care) Height: 5 ft 4 in Weight:: 231 lb BMI: 39.6 BMI (Report if calculated above): 39.6 Nutrition - 60-Day Assessment Program Goals Nutrition Program Goals Patient has diagnosis of Hyperlipidemia (ICD E78)?: Yes Visit Date of Eval: 03/11/25 Session #:: 18 Cholesterol/Lipids (Other Core Measures) Total Triglycerides (mg/dL): 356 Total Cholesterol: 212 LDL Cholesterol (mg/dL): 112 HDL Cholesterol (mg/dL): 29 Lipid Medication: atovastatin 40mg QHS Determine presence & major risk factors that modify LDL goal: Cigarette smoking, Hypertension or hypertensive medication, Low HDL cholesterol <40 mg/dL*, Family history of premature CHD in Male < 55 years: female <65 yearsFa and Age men > 45 years; women >/= 55 years Outcomes/Goals: Pt IDs own risk factors & lifestyle modifications by Session 10 and Verbalizes symptoms of angina & response by session 3. Intervention/Plan: Advocate for lipid panel cholesterol medication if applicable, Instruct on personal lipid levels & lipid goals/NCEP guidelines and Instruct on cholesterol Referral to dietitian:: Yes 30-day Reassessments:: Progressing Reassessment Notes & Comments:: Pt met with collections assistant, pt with recent lipid panel, pt takin cholesterol medication as prescribed, pt instructed on normal lipid levels and lipid goals Weight Mgt (Other Care) Height: 5 ft 4 in Weight:: 231 lb BMI: 39.6 BMI (Report if calculated above): 39.6 Diagnosis Overweight/Obesity BMI> 30% ICD-10 E66: Yes Diagnosis High BMI/Morbid Obesity BMI> 35% ICD-10 Z68: Yes Outcomes/Goals: Pt sets, maintains & shows weight loss goal & trend during rehab Intervention/Plan: Instruct on ideal BMI & set weight loss goal w/patient, Assist pt to ID & incorporate diet changes for weight loss by S9, Refer to Structured Weight Loss program as appropriate and Encourage goal of using 250-300dcal per session for weight loss 30 day Reassessments:: Progressing Reassessment Notes & Comments:: Pt instructed on ideal BMI and weight loss goals , pt encouraged to incorporate healthy diet and exercise for weight loss Healthy Eating Habits Will attend diet classes:: Yes Outcomes/Goals:: Consume diet rich in vegs,fruits,whole grain/high fiber,fish,lean meat and Limit sat/trans fats,cholesterol & added salts & sugars Intervention/Plan:: Assess current eating habits 30-day Reassessments:: Progressing Reassessment Notes & Comments:: Pt attending diet classes and met with one on one with collections assistant Education Gave educational materials for:: Signs & symptoms of hypoglycemia, Signs & symptoms of hyperglycemia, Relate diabetes to coronary artery disease and Healthy eating Core - Final Assessment Hypertension Resting Blood Pressure:: 116/64 [place] [employer] Hypertension Guidelines Core - 60-Day Assessment Visit Date of Eval: 03/11/25 Session #:: 18 Medication Compliance Preventative Medication(s):: Statin/lipid, Beta jake, Warfarin/Coumadin and ARB (Angiotensi Rcap) H/O mental health issues: depression, anxiety, or addiction?: No Doesn?t believe in the benefits of treatment?: No Believes medications are unnecessary or harmful?: No Has a concern about medication side effects?: No Expresses concern over the cost of medications?: No Outcomes/Goals: Verbalizes medications,desired effect & common side effects @ DC, Pt self-reports following medication regimen and Keeps card in wallet w/medications listed by DC Interventions/plans: Instruct on medication effects & side effects, Review medication list w/patient every two weeks and Instruct importance of taking meds as ordered & assist problem solving 30-day Reassessments:: Met Reassessment Notes & Comments:: Pt taking mediations as prescribed, pt promptly reports any changes in medications, pt able to verbalize side effects and what to do if they occur Tobacco Use Tobacco Use: Non-smoker Hypertension Hypertension Diagnosis:: Hypertension ICD-10 I10 Resting Blood Pressure:: 106/68 Resting Blood Pressure:: 116/64 [place] [employer] Hypertension Guidelines Peak Exercise Blood Pressure:: 112/80 Outcomes/Goals: Able to verbalize/achieve optimal blood pressure <130/80 and Incorporates diet changes & exercise for blood pressure control by DC Interventions/plan: Instruct on optimal blood pressure, hypertension & medications and Instruct on effects of sodium, alcohol, stress, exercise &hypertension 30 day Reassessments:: Met Reassessment Notes & Comments:: Pt maintaining resting BP at optimal levels, pt taking BP medications as prescribed Tobacco Cessation Referral Smoking Cessation Referral:: No Individual Education/Counseling:: No Education Schedule Given:: Yes Psychosocial - 30-Day Assess Target Goals Target Goals Referral to Behavioral Health PS - Interventions: Yes: Attend Stress Management Classes and No: Referral to Physician if PHQ-9 if score is 5-9: (Pt following with PCP closely and denies any psychosocial needs at this time) Outcomes/Goals: See list Psychosocial Outcomes/Goals:: ID's personal stressors & 2 strategies to manage stress by discharge Psychosocial - 60-Day Assess VIsit Date of Eval: 03/11/25 Session #:: 18 History of previous Mental disease:: No History of Emotional Disorders: None Target Goals Target Goals Psychosocial Test Tool Used:: PHQ-9 Questionnaire phq-9 Severity See PHQ-9 Score: 8 Total Score:: 8 Referral to Behavioral Health PS - Interventions: Yes: Attend Stress Management Classes and No: Referral to Physician if PHQ-9 if score is 5-9: (Pt following with PCP closely and denies any psychosocial needs at this time) Outcomes/Goals: See list Psychosocial Outcomes/Goals:: ID's personal stressors & 2 strategies to manage stress by discharge Intervention/Plan: See List Interventions/Plan:: Assess stressors,coping strategies & signs of derpression on admission, Instruct/assist pt to develop coping & personal stress Mgt strategies, Refer to Behavioral Health if appropriate, Refer to Physician if appropriate and Instruct patient to recognize signs & symptoms of depression 30-day Reassessments: 30 day Reassessments:: Met Reassessment Notes & Comments:: Pt denies any psychosocial needs at this time. Pt attending stress management classes. Psychosocial - 90-Day Assess Target Goals Target Goals Referral to Behavioral Health PS - Interventions: Yes: Attend Stress Management Classes and No: Referral to Physician if PHQ-9 if score is 5-9: (Pt following with PCP closely and denies any psychosocial needs at this time) Psychosocial - Final Assessmen Target Goals Target Goals Referral to Behavioral Health PS - Interventions: Yes: Attend Stress Management Classes and No: Referral to Physician if PHQ-9 if score is 5-9: (Pt following with PCP closely and denies any psychosocial needs at this time) Nutrition - 90-Day Assessment Weight Mgt (Other Care) Height: 5 ft 4 in Weight:: 231 lb BMI: 39.6 BMI (Report if calculated above): 39.6 Nutrition - Final Assessment Weight Mgt (Other Care) Height: 5 ft 4 in Weight:: 231 lb BMI: 39.6 BMI (Report if calculated above): 39.6
[2025-03-11 09:59] VITALS: BP 106/68; BMI 39.6
[2025-03-11 10:07] VITALS: BP 106/68; BP 116/64
== END 2025-03-12 23:59 ==
LOC: CR 14:15
PROVIDERS: PCP Internal Medicine
DX: Z48.812 Encounter for surgical aftercare following surgery on the circulatory system (principal); Z95.5 Presence of coronary angioplasty implant and graft
CPT/HCPCS: 93798

== ENCOUNTER 2025-03-22 11:17 | Outpatient (RCR) | payer MEDICARE, MEDICAID, SELFPAY ==
[2021-09-03 12:59] VITALS: BMI 43.4
[2025-03-13 00:32] VITALS: BMI 39.6
[2025-03-22 12:38] LABS: Absolute Lymphocyte Count 1.96 X10^3/uL (0.83-4.51); Basophil# 0.05 X10^3/uL; Basophil% 0.7 % (0-1); Eosinophil# 0.12 X10^3/uL; Eosinophils% 1.8 % (0-5); Hematocrit 44.1 % (37-47); Hemoglobin 14.2 g/dL (12.0-15.0); Lymphocyte # 1.96 X10^3/ul (0.83-4.51); Lymphocyte % 28.9 % (19-41); Mean Corp Hgb Conc 32.2 g/dL (32-36); Mean Corpuscular Hgb 27.4 pg (27.0-32.0); Mean Corpuscular Volume 85.1 fL (81-99); Mean Platelet Vol. 11.1 fl (6.2-12.0); Monocyte# 0.61 X10^3/uL; NRBC Flagged by Analyzer 0 % (0-5); Neutrophil # 4.02 X10^3/uL (2.7-7.7); Neutrophil % 59.2 % (47-70); Platelet Count 265 K/mm3 (150-450); RBC Distribution Width CV 18.2 % (11.6-14.6); RBC Distribution Width SD 54.8 fl (35.1-43.9); Red Blood Count 5.18 M/mm3 (4.2-5.4); White Blood Count 6.8 K/mm3 (4.4-11.0)
[2025-03-22 12:51] LABS: Prothrombin Time (Protime)PT. 13.7 SECONDS (11.7-14.9)
[2025-03-22 13:20] LABS: Hepatitis B Surface Antibody Nonreactive
[2025-03-22 13:35] LABS: AST(SGOT) 27 U/L (<=31); Alanine Aminotransfer ALT/SGPT 18 U/L (<=34); Alkaline Phosphatase 43 U/L (35-104); Bilirubin, Direct 0.16 mg/dL (0.00-0.30); Globulin 2.8 g/dL (2.2-4.2); Hepatitis B Surface Antigen Nonreactive (Nonreactive); Hepatitis C Antibody Nonreactive (Nonreactive); Protein, Total 6.9 g/dL (5.9-8.4); Total Bilirubin 0.42 mg/dL (0.00-1.30)
[2025-03-23 05:07] LABS: Hepatitis A AB, Total Negative (Negative); Hepatitis B Core Ab Total Negative (Negative)
== END 2025-03-22 18:00 | disposition home or self-care (01) ==
LOC: LAB 11:17
PROVIDERS: Nurse Practitioner Acute Care; PCP Internal Medicine; Referring Provider Internal Medicine; Visit Provider Internal Medicine
DX: I82.409 Acute embolism and thrombosis of unspecified deep veins of unspecified lower extremity; R10.9 Unspecified abdominal pain; K76.0 Fatty (change of) liver, not elsewhere classified
CPT/HCPCS: 36415; 80076; 85025; 85610; 86704; 86706; 86708; 86803; 87340

== ENCOUNTER 2025-03-22 13:01 | Outpatient (RCR) | payer MEDICARE, MEDICAID, SELFPAY ==
[2025-03-13 00:32] VITALS: BMI 39.6
--- NOTE | 2025-03-22 14:03 | HP.PTEVAL_ITS ---
Patient's Visit Information Visit Information Visit Information: NATHALIE HERMAN is a 64 year old F referred to Physical Therapy by Dr. Ophelia Soria DO with a diagnosis of BACK PAIN ,SCIATICA ,STRAIN/SPRAIN MUSCLE. 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 Patient had s/p lumbar laminectomy on May done Dr Singh at [facility] . Patient was in PT but then developed heart issues. Patient underwent s/p CABG thus had valve replacement Oct 19 2024 at [facility] . Patient then also pacemaker . Patient d/c from [facility] Oct 29 then had rehab [facility] PT/[facility]. Patient was d/c December 31 2024. Patient cardiac Rehab 3 days a week. Seen DR family MADRIGAL and recommended. Patient Patient has right lumbar pain and right lateral leg pain to knee. Aggravating walking/stand 1/2 block ,unable to bend or lift. Alleviating sitting. Medication: oxycodone /trazadone. Coughing/sneezing-. Bowel/bladder-. C/O parestehesia/tingling right foot. Patient pain affects sleeping.Plan to have epidural injection by pain management 03/23/25. Patient lives with spouse . Patient has TRA[employer]ING [employer] assist with shower ,self hygiene dressing,cooking/cleaning. TRA[employer]ING MGR takes patient to all appointments. [employer] 5 hrs /day Unable to drive. Patient spouse dependent with all ADLS and has [employer]ING [employer]. Patient Pt lives 1 story no step walk in [facility] Patient condition multiple complexity issues affects QOL and function and needs assist with ADLS SOCAIL: Pain Right Back: Pain Intensity (Out of 10): 8 Pain Intensity Range: 10 Objective Objective: POSTURE: mild forward posture rounded shoulders head forward ,hips knees slightly flexed PALPATION: tender erector spinalis /paraspinals FLEXABILITY: hamstrings mod tight NEURO: c/o paresthesia/tingling right leg LUMBAR ROM: flexion mod loss ,extension mod/severe loss ,side glides mod loss BALANCE: fair+ with fww MMT: ( peak force) quads left 15.2.right 7.2,hip flexion right 6.9 ,left 23.1 hamstrings right 6.7 ,right 13.2 ,ankle 4/5 Special Tests L/S Slump test left side: Negative L/S Slump test right side: Negative L/S Left Straight Leg Raise: Negative L/S Right Straight Leg Raise: Negative Balance/Special Test Scores Oswestry Low Back Score: 36 Goals Goal 1:: Patient to be I with HEP back and legs Goal Time Frame: 4-6 Weeks Goal 2:: Patient to improve lumbar ROM for function of recovery to put on shoes Goal Time Frame: 4-6 Weeks Goal 3:: Patient to demonstrate 40 % improvement with less pain and improved function withgait Goal Time Frame: 4-6 Weeks Goal 4:: Patient to improve peak force quads/hams/hips by 5-10 # strength to improve gait. Goal Time Frame: 4-6 Weeks Goal 5:: Patient to improve back oswestry score by 5 points to improve QOL and function Goal Time Frame: 4-6 Weeks Goal 6:: Patient able to walk/stand by 5 mins or> block to improve functional en durance Goal Time Frame: 4-6 Weeks Rehabilitation Potential Physical Therapy Diagnosis: This patient has multiple complexity issue with h/o s/p lumbar laminectomy on May,then had s/p CABG thus had valve replacement Oct 19 2024 and pacemaker thus has weakness in legs ,poor lumbar ROM ,pain worse with walking /standing ,2-3 mins,poor endurance thus impairs ADLS and needs TRAINING M[employer] benefit from skilled PT Rehabilitation Potential: Fair Anticipated Interventions Patient/Client Instruction: Educate patient on: Condition and Plan of Care For the Purpose of:: To decrease pain, To increase ROM, To improve muscle performance and motor function, To improve ability to perform ADL's, To increase tolerance to activity/condition/position, To improve ability of physical actions for home/community/work/leisure, To improve gait and locomotor functions, To increase flexibility/ROM, To improve endurance, To improve balance and To improve tolerance to ADL's Therapeutic Exercise to Include: Strength training, Endurance training, Balance training, Postural training, Flexibilty training and [place]ora Exercises Comment: BLE For the Purpose of:: To decrease pain, To increase ROM, To improve muscle performance and motor function, To improve ability to perform ADL's, To increase tolerance to activity/condition/position, To improve ability of physical actions for home/community/work/leisure, To improve health of tissue, To decrease soft tissue restriction, To increase flexibility/ROM, To improve balance and To improve tolerance to ADL's TENS: Yes IF ES: Yes Cryotherapy (ice pack, ice massage): Yes Thermo therapy (hot pack): Yes Ultrasound (thermal/non thermal): Yes For the Purpose of:: To decrease pain, To increase ROM, To improve nutrient delivery to tissue, To increase oxygenation perfusion, To improve health of tissue and To decrease soft tissue restriction Text: Thank you for the opportunity to evaluate your patient. For Medicare and Medicare HMO plans, please review the plan of care and approve it. It will need to be FAXED BACK to us at [phone] for Medicare purposes. For Medicare only, by signing this I certify the plan of care. Please let me know if there are questions or concerns regarding this plan of care. Physician Signature: Date:
== END 2025-03-22 19:00 | disposition home or self-care (01) ==
LOC: PT 13:01
PROVIDERS: PCP Internal Medicine; Referring Provider Internal Medicine; Visit Provider Internal Medicine
DX: S39.012D Strain of muscle, fascia and tendon of lower back, subsequent encounter (principal); M54.30 Sciatica, unspecified side; M62.830 Muscle spasm of back
CPT/HCPCS: 97163

== ENCOUNTER → 2025-03-24 | Outpatient (CLI) | payer MEDICARE, MEDICAID, SELFPAY ==
[2025-03-13 00:32] VITALS: BMI 39.6
--- NOTE | 2025-03-24 09:46 | US_ITS ---
PROCEDURE: TRANSVAGINAL NON- 03/24/2025 REASON FOR EXAM: CYST OF LEFT OVARY TECHNIQUE: Transvaginal pelvic ultrasound COMPARISON: None FINDINGS: Measurements: Uterus: 8 cm x 6.3 cm x 4.6 cm with a volume of 120.23 mL Endometrial Thickness: Not visualized. Right Ovary: Not visualized Left Ovary: Not visualized Uterus: Normal size, myometrial echotexture, and contour. Findings suggestive of uterine prolapse. Endometrium: Poorly visualized. Right ovary: Not visualized. Left ovary: Not visualized. Other: No large pelvic mass identified. US/Transvaginal Non- IMPRESSION: Limited examination. No acute abnormality is seen. Findings suggestive of uterine prolapse. [id number]
--- NOTE | 2025-03-24 09:53 | RAD_ITS ---
PROCEDURE: CHEST PA AND LATERAL 03/24/2025 REASON FOR EXAM: RLL PNEUMONIA TECHNIQUE: Frontal and lateral views of the chest. COMPARISON: PA and lateral chest of 03/08/2025. RAD/Chest PA and Lateral IMPRESSION: Partially visualized prior cervical surgery again noted. Partially visualized right shoulder prosthesis in place. Prior sternotomy and aortic valve replacement noted. Left thoracic device in place, with 2 leads seen of the level of the right atri um. Lungs appear clear. No pleural effusion or pneumothorax is seen. The cardiomediastinal silhouette is stable, without evidence of cardiomegaly. No evidence of acute cardiopulmonary disease. Stable degenerative changes of the thoracic spine, along with DISH. Reading Location: [address]
== END | disposition home or self-care (01) ==
LOC: US 09:45
PROVIDERS: PCP Internal Medicine; Referring Provider Internal Medicine; Visit Provider Internal Medicine
DX: J18.9 Pneumonia, unspecified organism (principal); N83.202 Unspecified ovarian cyst, left side
CPT/HCPCS: 71046; 76830

== ENCOUNTER 2025-04-01 09:27 | Day surgery (SDC) | payer MEDICARE, MEDICAID, SELFPAY ==
[2025-03-13 00:32] VITALS: BMI 39.6
[2025-04-01] MEDS: Lidocaine Jelly 2% 20 ML Syringe (URO-JET) 1 APPLIC (09:37)
[2025-04-01 09:49] VITALS: BP 139/71; PULSE 76; RESP 16; TEMP 36.2; O2SAT 96
== END 2025-04-01 10:11 | disposition home or self-care (01) ==
PROVIDERS: PCP Internal Medicine; Referring Provider Internal Medicine; Visit Provider Internal Medicine Gastroenterology
PROC: F00ZJWZ Instrumental Swallowing and Oral Function Assessment using Swallowing Equipment (ICD-10-PCS; CPT 43235; principal; 2025-04-01 09:25)
DX: K22.4 Dyskinesia of esophagus (principal)
CPT/HCPCS: 91010

== ENCOUNTER 2025-04-06 10:53 | Outpatient (RCR) | payer MEDICARE, MEDICAID, SELFPAY ==
[2025-03-13 00:32] VITALS: BMI 39.6
== END 2025-04-11 23:59 ==
LOC: NS 10:53
PROVIDERS: PCP Internal Medicine; Referring Provider Internal Medicine Cardiovascular Disease; Visit Provider Internal Medicine Cardiovascular Disease
DX: Z71.3 Dietary counseling and surveillance (principal); E11.9 Type 2 diabetes mellitus without complications; E66.01 Morbid (severe) obesity due to excess calories; Z86.39 Personal history of other endocrine, nutritional and metabolic disease
CPT/HCPCS: 97803

== ENCOUNTER 2025-04-08 14:15 | Outpatient (RCR) | payer MEDICARE, MEDICAID, SELFPAY ==
[2025-03-13 00:32] VITALS: BP 106/68; BP 116/64; BP 134/64; BMI 39.6
--- NOTE | 2025-04-07 10:47 | CR.ITP_ITS ---
Exercise - Initial Assessment Physician Prescribed Exercise Modalities: SciFit Stepper, SciFit Pro-II Ergometer and SciFit Lateral Research Test Engine Evaluator Nutrition - Initial Assessment Weight Mgt (Other Care) Height: 5 ft 4 in Weight:: 230 lb 8 oz BMI: 39.5 Psychosocial - Initial Assess Target Goals Target Goals Referral to Behavioral Health PS - Interventions: Yes: Attend Stress Management Classes Patient Health Questionnaire PHQ-9 Screening 90-Day Re-eval Assessment: 1. Little interest or pleasure in doing things: Several days 2. Feeling down, depressed, or hopeless: Not at all 3. Trouble falling or staying asleep, or sleeping too much: Nearly every day 4. Feeling tired or having little energy: More than half the days 5. Poor appetite or overeating: More than half the days 6. Feeling bad about yourself -- or that you are a failure or have let yourself or your family down: Not at all 7. Trouble concentrating on things, such as reading the newspaper or watching television: Not at all 8. Moving or speaking so slowly that other people could have noticed. Or the opposite - being so fidgety or restless that you have been moving around a lot more than usual: Not at all 9. Thoughts that you would be better off , or of hurting yourself in some way: Not at all How difficult have these problems made it for you to do your work, take care of things at home, or get along with other people?: Very difficult Total Score: 8 Self-Efficacy 6-Item Scale 90-Day Re-eval Assessment: We would like to know how confident you are in doing certain activities. Please select your confidence level for: Fatigue Select Number: 3 Physical Discomfort or Pain Select Number: 2 Emotional Distress Select Number: 3 Other Symptoms or Health Problems Select Number: 3 Different Tasks and Activities Select Number: 3 Medication Select Number: 6 Total Score:: 3 Nutrition Survey Nutrition Survey Instructions Scoring Instructions Exercise - 30-day Assessment Physician Prescribed Exercise Modalities: SciFit Stepper, SciFit Pro-II Ergometer and SciFit Lateral Research Test Engine Evaluator Exercise - 60-day Assessment Physician Prescribed Exercise Modalities: SciFit Stepper, SciFit Pro-II Ergometer and SciFit Lateral Research Test Engine Evaluator Exercise - 90-day Assessment Visit Date of Eval: 04/07/25 Session #:: 27 Physician Prescribed Exercise Modalities: SciFit Stepper, SciFit Pro-II Ergometer and SciFit Lateral [place] Frequency: 3x/week for 12 weeks [36 sessions] Intensity: 60-80% of age predicted maximum heart rate reserve Duration: 30 - 45 minutes Current METSs:: 4.3 Target Heart Rate:: 93-116 Current RPE:: 12-15 Maximum Excercise HR:: 92 Resting Blood Pressure: 100/72 Maximum Exercise Blood Pressure: 100/72 EKG Type: Ventricular paced w/ rare pvc,pac. Twave inversion Outcomes & Goals Goals:: Verbalizes understanding of THR, RPE & goal METS by session 6, Documents in home exercise log/reports 30 min aerobic 5 day/wk by DC, Demonstrates accurate pulse taking by DC and Other additional outcome/goals: see below Intervention & Plan Exercise Program Goals: Instruct on personal THR & RPE, Instruct on MET level & personal MET goal, Show patient to take own pulse /validate performance until accurate, Instruct on home exercise and Other additional plan/int Physical Activity Home Exercise Physical Activity - Home Exercise: Safe Exercise, Warm-up, Self-monitoring, Cool-Down, Home Exercise > 30 min Daily and Sitting Time <3 hours/daily Outcomes & Goals Outcomes/Goals: Demonstrates correct Warm-up/exercise Cool-Down (S3) if = 2.5 METs, Verbalizes symptoms of exercise intolerance by Session 3 (S3), Demonstrate safe equipment use (S3) & follows exercise prescrition (6) and Other: See below Intervention & Plan Plan/Intervention: Instruct warm-up & cool-down if exercising at > 2 METs, Instruct on symptoms of exercise intolerance & actions to take, Instruct & monitor on saf, Assess intial functional capacity & safety risk and Other See below 30-day Reassessments 30 day Reassessments:: Progressing Reassessment Notes & Comments:: Pt is doing very well. Pt has been able to increase her exercise duration and intensity to 4.3 METS. Will continue to encourage. Upon graduation pt will be given her exercise prescription as well as community resources to continue her exercise. Exercise - Final/Discharge Physician Prescribed Exercise Modalities: SciFit Stepper, SciFit Pro-II Ergometer and SciFit Lateral [place] Nutrition - 30-Day Assessment Weight Mgt (Other Care) Height: 5 ft 4 in Weight:: 230 lb 8 oz BMI: 39.5 Nutrition - 60-Day Assessment Weight Mgt (Other Care) Height: 5 ft 4 in Weight:: 230 lb 8 oz BMI: 39.5 Core - 30-Day Assessment Hypertension [place] [employer] Hypertension Guidelines Reassessment Notes & Comments:: Pt's BP's are within AHA normal limits. Will continue to monitor Core - Final Assessment Hypertension [place] [employer] Hypertension Guidelines Reassessment Notes & Comments:: Pt's BP's are within AHA normal limits. Will continue to monitor Core - 90 Day Assessment Visit Date of Eval: 04/07/25 Session #:: 27 Medication Compliance Preventative Medication(s):: Statin/lipid, Warfarin/Coumadin and ARB (Angiotensi Rcap) Doesn’t believe in the benefits of treatment?: No Believes medications are unnecessary or harmful?: No Has a concern about medication side effects?: No Expresses concern over the cost of medications?: No Outcomes/Goals: Verbalizes medications,desired effect & common side effects @ DC, Pt self-reports following medication regimen, Keeps card in wallet w/medications listed by DC and Other additional outcome/goals: Interventions/plans: Instruct on medication effects & side effects, Review medication list w/patient every two weeks, Instruct importance of taking meds as ordered & assist problem solving and Other additional 30-day Reassessments:: Met Reassessment Notes & Comments:: Pt taking meds as prescribed. Tobacco Use Tobacco Use: Non-smoker Hypertension Hypertension Diagnosis:: Hypertension ICD-10 I10 Resting Blood Pressure:: 100/72 [place] [employer] Hypertension Guidelines Peak Exercise Blood Pressure:: 100/72 Outcomes/Goals: Able to verbalize/achieve optimal blood pressure <130/80, Incorporates diet changes & exercise for blood pressure control by DC and Other additional outcomes/goals Interventions/plan: Instruct on optimal blood pressure, hypertension & medications, Instruct on effects of sodium, alcohol, stress, exercise &hypertension and Other additional plan/interventions 30 day Reassessments:: Met Reassessment Notes & Comments:: Pt's BP's are within AHA normal limits. Will continue to monitor Tobacco Cessation Referral Education Schedule Given:: Yes Psychosocial - 30-Day Assess Target Goals Target Goals Referral to Behavioral Health PS - Interventions: Yes: Attend Stress Management Classes Psychosocial - 60-Day Assess Target Goals Target Goals Referral to Behavioral Health PS - Interventions: Yes: Attend Stress Management Classes Psychosocial - -Day Assess VIsit Date of Eval: 04/07/25 Session #:: 27 History of previous Mental disease:: No Target Goals Target Goals Psychosocial Test Tool Used:: PHQ-9 Questionnaire phq-9 Severity See PHQ-9 Score: 8 Referral to Behavioral Health PS - Interventions: Yes: Attend Stress Management Classes Outcomes/Goals: See list Psychosocial Outcomes/Goals:: ID's personal stressors & 2 strategies to manage stress by discharge and Other Additional outcome/goals: Intervention/Plan: See List Interventions/Plan:: Assess stressors,coping strategies & signs of derpression on admission, Instruct/assist pt to develop coping & personal stress Mgt strategies, Refer to Behavioral Health if appropriate, Refer to Physician if appropriate, Instruct patient to recognize signs & symptoms of depression, Instruct patient to recog and Other additional plan/intervention 30-day Reassessments: 30 day Reassessments:: Met Reassessment Notes & Comments:: Pt denies any psychosocial issues at this time Psychosocial - Final Assessmen Target Goals Target Goals Referral to Behavioral Health PS - Interventions: Yes: Attend Stress Management Classes Nutrition - 90-Day Assessment Program Goals Nutrition Program Goals Patient has diagnosis of Hyperlipidemia (ICD E78)?: Yes Visit Date of Eval: 04/07/25 Session #:: 27 Cholesterol/Lipids (Other Core Measures) Determine presence & major risk factors that modify LDL goal: Hypertension or hypertensive medication, Low HDL cholesterol <40 mg/dL*, Family history of premature CHD in Male < 55 years: female <65 yearsFa and Age men > 45 years; women >/= 55 years Outcomes/Goals: Pt IDs own risk factors & lifestyle modifications by Session 10, Verbalizes symptoms of angina & response by session 3., Pt independently manages and Other Additional Outcomes/Goals: Intervention/Plan: Advocate for lipid panel cholesterol medication if applicable, Instruct on personal lipid levels & lipid goals/NCEP guidelines, Instruct on cholesterol and Other additional plan/int 30-day Reassessments:: Met Reassessment Notes & Comments:: Pt has met with ranch rider and taking her meds as prescribed. Diabetes (Other Core Measures) Diabetes Type: Diagnosis Type II ICD-10 E11 Insulin dependent injection/pump?: Yes Do you monitor your blood sugar at home?: Yes 30-day Reassessments:: Met Reassessment Notes & Comments:: Pt has met with a diettitian. Weight Mgt (Other Care) Height: 5 ft 4 in Weight:: 230 lb 8 oz BMI: 39.5 Diagnosis Overweight/Obesity BMI> 30% ICD-10 E66: Yes Diagnosis High BMI/Morbid Obesity BMI> 35% ICD-10 Z68: Yes Outcomes/Goals: Pt sets, maintains & shows weight loss goal & trend during rehab and Other additional outcomes/goals Intervention/Plan: Instruct on ideal BMI & set weight loss goal w/patient, Assist pt to ID & incorporate diet changes for weight loss by S9, Refer to Structured Weight Loss program as appropriate, Encourage goal of using 250- 300dcal per session for weight loss and Other additional plan/interventions Healthy Eating Habits Will attend diet classes:: Yes Outcomes/Goals:: Consume diet rich in vegs,fruits,whole grain/high fiber,fi sh,lean meat, Limit sat/trans fats,cholesterol & added salts & sugars and Other additional outcome/goals: Intervention/Plan:: Assess current eating habits and Other Additional plan/interventions 30-day Reassessments:: Progressing Reassessment Notes & Comments:: Pt has attended nutrition class and met with our dietitian. Education Gave educational materials for:: Signs & symptoms of hypoglycemia, Signs & symptoms of hyperglycemia, Relate diabetes to coronary artery disease and Healthy eating Nutrition - Final Assessment Weight Mgt (Other Care) Height: 5 ft 4 in Weight:: 230 lb 8 oz BMI: 39.5
[2025-04-07 10:59] VITALS: BP 100/72; BMI 39.5
== END 2025-04-11 23:59 ==
LOC: CR 14:15
PROVIDERS: PCP Internal Medicine
DX: Z48.812 Encounter for surgical aftercare following surgery on the circulatory system (principal); Z95.2 Presence of prosthetic heart valve
CPT/HCPCS: 93798

== ENCOUNTER 2025-04-11 06:59 | Day surgery (SDC) | payer MEDICARE, MEDICAID, SELFPAY ==
[2025-03-13 00:32] VITALS: BMI 39.6
[2025-04-07 10:59] VITALS: BMI 39.5
--- NOTE | 2025-04-07 16:19 | PAT.ANE_ITS ---
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 When Was Last Pacemaker Check QUESTION #4 FULL TEXT: You/Your Family Experience fever (hyperthermia) with Anesthesia Last Oral Intake Last Oral intake: Last Oral Intake NPO since Meds taken in AM with sips of water? Meds patient instructed to take am of surgery PONV PONV - internal corrosion specialist: PONV - internal corrosion specialist Female Yes 04/07/25 15:31 HX of Motion Sickness Yes 04/07/25 15:31 HX of N/V After Surgery Yes 04/07/25 15:31 Non-Smoker Yes 04/07/25 15:31 Duration of Surgery greater No 04/07/25 15:31 than 60 minutes Number of Risk Factors 4 04/07/25 15:31 PONV Score Severe Risk 04/07/25 15:31 Height & Weight Height & Weight: Anesthesia: Height & Weight Height 5 ft 4 in 03/22/25 10:20 Respiratory Assessment Respiratory Assessment - internal corrosion specialist: Respiratory Tract Infection Hx - internal corrosion specialist Hx Respiratory Tract Infection No 04/07/25 15:31 STOP Sleep Apnea STOP Sleep Apnea - internal corrosion specialist: STOP Sleep Apnea - internal corrosion specialist Hx Hypertension Yes 04/07/25 15:31 Hx Sleep Apnea Yes 04/07/25 15:31 CPAP No 04/07/25 15:31 BIPAP Yes 04/07/25 15:31 Do you snore loudly (louder than talking or can be heard Do you often feel tired/ fatigued/ sleepy during daytime? Has anyone observed you stop breathing during sleep? STOP Results Positive 04/07/25 15:31 QUESTION #5 FULL TEXT : Do you snore loudly (louder than talking or can be heard through closed doors)? 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 Specify any problems Hx of Preganancy in last 3 No 04/07/25 15:31 Months Nurse Filling Out Transfusion [id number] 04/07/25 15:31 & Questions: Date: 04/07/25 04/07/25 15:31 Time: 15:35 04/07/25 15:31 Patient unable to answer at this time (ie. confused, unrespo /Reproduction History /Reproductive History - internal corrosion specialist: /Reproductive Hx- internal corrosion specialist Hx Now Gestational Age (in weeks): EDC: Hx Hx Para Hx Section SAB No 04/07/25 15:31 PFSH Medical History Wears glasses MRSA infection Open wound Walker as ambulation aid Gastric reflux History of pacemaker Surgical complete heart block Acute on chronic hypoxic respiratory failure COPD exacerbation Acute CVA (cerebrovascular accident) Obesity (BMI 30-39.9) Rectal bleeding Subtherapeutic international normalized ratio (INR) Peripheral neuropathy Positive FIT (fecal immunochemical test) History of transcatheter aortic valve replacement (TAVR) (~04/19/21) COVID-19 Depression Anxiety Discoloration of skin History of steroid therapy Insulin dependent diabetes mellitus Diabetes Arthritis High cholesterol Pulmonary embolism Easy bruising Excessive bleeding Restless legs Back pain Migraine headache TIA (transient ischemic attack) Non-smoker BiPAP (biphasic positive airway pressure) dependence On home oxygen therapy Shortness of breath on exertion Leg cramps History of pain when walking History of edema History of stress test Hx of transesophageal echocardiography (YOLANDA) for monitoring History of echocardiogram Cardiology follow-up encounter Rotator cuff arthropathy of right shoulder History of DVT (deep vein thrombosis) Back pain with sciatica Nonrheumatic aortic (valve) stenosis Essential hypertension Carotid artery disease Atherosclerotic heart disease of [place] coronary artery without angina pectoris Personal history of anaphylaxis Bilateral carotid bruits Body mass index 45.0-49.9, adult Diastolic heart failure COPD (chronic obstructive pulmonary disease) CHELSEY treated with BiPAP History of pulmonary embolism Morbid obesity Type 2 diabetes mellitus Asthma Home Medications ?Medication ?Instructions ?Recorded ?Last Taken ?Type calcium 600 mg-D3 800 unit-mag 40 1 ea PO DAILY vitami ns 05/27/16 01/18/25 History bp-adjk-ohbx-angel-boron chew tablet fenofibrate nanocrystallized 145 72.5 mg PO QHS choles terol 04/26/19 01/18/25 History mg tablet trazodone 50 mg tablet 50 mg PO QHS sleep 08/09/19 01/18/25 History epinephrine 0.3 mg/0.3 mL 0.3 mg (0.3 mL) IM X1 PRN Unknown Rx injection, auto-injector Anaphylaxis #1 ea albuterol sulfate 2.5 mg/3 mL 2.5 mg (3 mL) inhalation Q2H PRN 04/24/20 01/19/25 Rx (0.083 %) solution for nebulization PRN dyspnea, wheez ing #180 mL albuterol sulfate 90 mcg/actuation 2 inh inhalation Q4 H PRN PRN Sob 04/24/20 01/19/25 Rx aerosol inhaler &/Or Wheezing #18 grams montelukast 10 mg tablet 10 mg PO DAILY allergies/ast hma 12/07/20 01/19/25 Rx #30 tabs alendronate 70 mg tablet 70 mg PO [facility] 12/1101/12/25 History budesonide-formoterol HFA 160 2 puff inhalation BID as thma 03/22/21 01/19/25 History mcg-4.5 mcg/actuation aerosol inhaler ipratropium 0.5 mg-albuterol 3 mg 3 ml inhalation BID asthma 03/22/21 01/18/25 History (2.5 mg base)/3 mL nebulization soln melatonin 10 mg tablet 12 mg PO QHS sleep 04/05/21 01/18/25 History pregabalin 150 mg capsule 150 mg PO TID nerve pain 03/01/25 History meclizine 25 mg tablet 25 mg PO DAILY PRN Vertigo 0 05/04/21 01/18/25 History magnesium 250 mg tablet 400 mg PO DAILY supplement 1 10/17/20 01/19/25 History levocetirizine 5 mg tablet 5 mg PO DAILY allergies 01/18/25 History dapagliflozin propanediol 10 mg 10 mg PO DAILY diabete s 08/11/22 02/24/25 History tablet (Farxiga) multivitamin (Daily Multi-Vitamin 1 tab PO DAILY SUPPL EMENT 06/12/23 01/19/25 History tablet) azelastine 137 mcg-fluticasone 50 2 spray intranasal B ID allergy 08/25/23 01/19/25 History mcg/spray nasal spray cholecalciferol (vitamin D3) 125 125 mcg PO DAILY anabel min-self care 08/25/23 01/19/25 History mcg (5,000 unit) tablet (Vitamin D3) Lactobacillus acidophilus 1 tab PO DAILY Supplement 01/19/25 History (Acidophilus chewable tablet) ondansetron 4 mg disintegrating 4 mg PO DAILY PRN naus ea 09/29/23 Unknown History tablet zinc 100 mg tablet 100 mg PO DAILY supplement 1 11/30/22 01/19/25 History atorvastatin 40 mg tablet 40 mg PO QHS 30 days #30 tab s 09/17/24 01/18/25 Rx topiramate 50 mg tablet 50 mg PO BID 30 days #60 tab s 09/17/24 01/19/25 Rx furosemide 40 mg tablet 40 mg PO .COMPLEX diuresis 1 11/28/23 01/19/25 History ascorbate calcium (vitamin C) 500 1 g PO DAILY vitamin 01/03/25 01/19/25 History mg tablet mecobalamin (vitamin B12) 5,000 5,000 mcg PO QDAY 12/1201/19/25 History mcg chewable tablet oxycodone-acetaminophen 5 mg-325 1 tab PO BID PRN pain 01/03/25 01/19/25 History mg tablet fluoxetine 40 mg capsule 40 mg PO DAILY 01/19/2507/07 History omeprazole 40 mg capsule,delayed 40 mg PO DAILY gerd 0 01/19/25 02/28/25 History release rizatriptan 5 mg tablet 5 mg PO PRN 01/19/25 Unknown History semaglutide 2 mg/dose (8 mg/3 mL) 2 mg subcut QWEEK 02/20/25 History subcutaneous pen injector (Ozempic) warfarin 4 mg tablet 4 mg PO DAILY 01/19/2504/06 History warfarin 5 mg tablet 5 mg PO DAILY 01/19/2504/06 History losartan 25 mg tablet 25 mg PO QDAY #90 tabs 02/0203/01/25 Rx metoprolol tartrate 25 mg tablet 25 mg PO BID #180 tab s 02/02/25 03/01/25 Rx linaclotide 290 mcg capsule 290 mcg PO QAM #90 caps Unknown Rx (Linzess) insulin glargine U-300 conc 300 15 unit subcut BID JOEY BETES 02/24/25 Unknown History unit/mL (1.5 mL) subcutaneous pen (Toujeo SoloStar U-300 Insulin) docusate sodium 100 mg capsule 100 mg PO TID stool sof tener 03/22/25 Unknown History peg 3350-electrolytes 236 240 ml PO .COMPLEX #8,000 mL 03/22/25 Unknown Rx gram-22.74 gram-6.74 gram-5.86 gram solution (Golytely) polyethylene glycol 3350 17 17 g PO ONCE #1,530 grams 03/22/25 Unknown Rx gram/dose oral powder (Miralax) tiotropium bromide 18 mcg capsule 18 mcg inhalation DA JAZMIN PRN asthma 03/22/25 Unknown History with inhalation device tizanidine 4 mg capsule 4 mg PO TID PRN muscle spast icity 03/22/25 Unknown History beclomethasone dipropionate 80 1 inh inhalation BID RI N Asthma 03/31/25 Unknown History mcg/actuation HFA breath activated aerosol erenumab-aooe 140 mg/mL 140 mg subcut [id number] PRN 0 03/31/25 Unknown History subcutaneous auto-injector migraine headache (Aimovig Autoinjector) spironolactone 50 mg tablet 25 mg (1/2 x 50 mg) PO BID #30 tabs 03/31/25 Unknown Rx ascorbic acid (vitamin C) 500 mg 0.5 g PO QHS 04/07/25 Unknown History chewable tablet (Acerola C) Allergy/AdvReac Type Severity Reaction Status Date / Time clindamycin Allergy Rash Verified 04/07/25 15:22 erythromycin base Allergy Rash Verified 04/07/25 15:22 (Erythromycin Base) omalizumab (From Xolair) Allergy Chest Verified 04/07/25 15:22 tightness Penicillins Allergy Rash Verified 04/07/25 15:22 sulfamethoxazole (From Allergy Chest Verified 04/07/25 15:22 Bactrim) tightness trimethoprim (From Bactrim) Allergy Chest Verified 04/07/25 15:22 tightness Sulfa (Sulfonamide AdvReac Unknown Unknown Verified 04/07/25 15:22 Antibiotics) Family History Father Heart disease Diabetes CAD (coronary artery disease) Mother CAD (coronary artery disease) CVA (cerebral vascular accident) Diabetes Brother CAD (coronary artery disease) CVA (cerebral vascular accident) Diabetes Unknown Cancer Grandmother CVA (cerebral vascular accident) Diabetes Grandfather CVA (cerebral vascular accident) Grandmother Myocardial infarction Brother Diabetes Sister Diabetes Surgical History Status post cardiac pacemaker procedure History of laminectomy History of colonoscopy History of cardiac catheterization Aortic valve replaced History of left heart catheterization (LHC) (~01/19/21) H/O lumbosacral spine surgery History of rotator cuff surgery Hx of appendectomy History of hernia repair History of section History of neck surgery Social History household members: spouse housing: apartment pets and animals: Yes Smoking Status: Never smoker second hand exposure: No alcohol intake: current alcohol intake frequency: a few times a week substance use type: does not use caffeine: No what type of physical activity do you participate in: none do you feel safe at home: Yes Audit: Pertinent Findings Pertinent Findings EKG Perinent findings: March 08, 2025. Atrial sensed ventricular paced rhythm Stress test pertinent findings: September 21, 2024. EF is 61%. No areas of reversibility are noted to suggest ischemia and no previous infarct. Echo (EF%) pertinent findings: October 05, 2024. EF 60%. Bioprosthetic aortic valve. Severe bioprosthetic valve stenosis. (Patient had aortic valve repair with heart cath and echo as below.) December 20, 2024. EF of 49%. Normal left ventricular myocardial strain. Mean aortic valve gradients is 4 mmHg. Heart catheterization pertinent findings: October 11, 2024. Mild 30% proximal RCA disease. Mild luminal irregularities of the LAD and left circumflex. Consult pertinent findings: March 31, 2025. Bo GILESC. 1. Aortic valve disease-status post aortic valve replacement with root enlargement on October 20, 2024. With a prosthetic Inspiris 23 mm valve. 2. Patient has a permanent pacemaker due to second-degree AV block. 3. Hypertension?[id number] 4. History of DVT?chronic-patient is wearing compression socks and she is on long-term Coumadin therapy. Recommendation Anesthesia Recommendation Anesthesia recommendation: OPTIMIZED for anesthesia
[2025-04-11] VITALS (8 sets, daily range): BP systolic 89–136; BP diastolic 62–82; PULSE 72–76; RESP 16; TEMP 36.1–36.7; O2SAT 90–98; BMI 39.6
--- NOTE | 2025-04-11 07:50 | PCM.HP.STD ---
HPI - General General Date of Admission: 04/11/25 Date of Service: 04/11/25 Chief Complaint: Repeat colonoscopy due to poor prep HPI Narrative NATHALIE HERMAN, is a 64 F who presents for repeat colonoscopy due to poor prep. OV 12/30/2024 64-year-old female presents for follow-up with continued complaints of esophageal dysphagia. MBS was performed September 17, 2024 and revealed esophageal retention of puddings throughout the esophagus, which somewhat improved with liquid wash, mild retention of liquids with retrograde flow remaining well below the upper esophageal sphincter. Heartburn symptoms are well-controlled on omeprazole 40 mg daily and she denies any nausea or vomiting. She was recently admitted for aortic valve replacement and is doing well postoperatively. I have scheduled her for and EGD and pending findings/symptoms may schedule esophageal manometry in future. She complains of constipation which is likely secondary to use of Ozempic and oxycodone. I have started her on Linzess 145 mcg once daily and she will provide symptom update in 7 to 10 days. She is on Coumadin for history of DVT and PE, we will request approval to hold prior to endoscopy. Colonoscopy revealed a poor bowel prep in 2022 and she is due for repeat colonoscopy at this time. Patient Instructions: Linzess samples provided Colonoscopy and EGD-half day MiraLAX prep and 1 day GoLytely EGD: 03/01/2025 hyperplastic gastric polyp, negative H. pylori - Normal esophagus. - Multiple gastric polyps. Biopsied. - No gross lesions in the entire examined duodenum. - Hyperplastic Gastric Polyps: While the majority are benign, there is a recognized, albeit low, risk of dysplasia or malignant transformation, particularly in polyps larger than 1 cm or those with a pedunculated morphology. The ASGE recommends that all hyperplastic polyps greater than 0.5?1cm be removed endoscopically due to this risk. COLON: 03/01/2025 TA - Repeat colonoscopy because the bowel preparation was poor with half day MiraLAX prep and 1 day GoLytely - Preparation of the colon was poor. - Stool in the entire examined colon. - One 5 mm polyp in the transverse colon, removed with a jumbo cold forceps. Resected and retrieved. - Diverticulosis in the recto-sigmoid colon, in the sigmoid colon and in the descending colon. PMH: COPD, blood clots on warfarin, CAD, status post CABG, DM CT 03/08/2025 abdomen/pelvis without urolithiasis or acute intra-abdominal pathology. Patient does have concerns for fatty liver as well as a 2.7 cm simple cyst in the left kidney. 3 cm simple appearing cyst in the left ovary. She has a 10 x 10 cm fat density lesion in the right pericolic gutter, with increased density in the adjacent mesenteric fat at the superior and inferior aspect. The differential includes mesenteric lipoma, panniculitis, mesenteric desmoid tumor. - she c/o pain in the right side and this is a different pain than her typical sciatic pain which radiates around abdomen/hip - she feels swollen and full in the right abdomen - pain is constant and started back in December, waves of intensity - pain can improve minimally with pain medication and muscle relaxers - pain is preventing her from exercising - pain does not change with a BM or PO intkae - limiting her ADL - reports her bowels are moving well, now having a BM QOD, but c/o incomplete evacuation - she is continuing to take stool softener TID - Linzess dose is 290mcg once daily - drinks 6-8 bottles of water Fatty liver - history of very rare use of EtOH in the past - she is a non-smoker - continues to have dysphagia - trouble swallowing mashed potatoes - does ok with liquids [facility] Medical History Wears glasses MRSA infection Open wound Walker as ambulation aid Gastric reflux History of pacemaker Surgical complete heart block Acute on chronic hypoxic respiratory failure COPD exacerbation Acute CVA (cerebrovascular accident) Obesity (BMI 30-39.9) Rectal bleeding Subtherapeutic international normalized ratio (INR) Peripheral neuropathy Positive FIT (fecal immunochemical test) History of transcatheter aortic valve replacement (TAVR) (~04/19/21) COVID-19 Depression Anxiety Discoloration of skin History of steroid therapy Insulin dependent diabetes mellitus Diabetes Arthritis High cholesterol Pulmonary embolism Easy bruising Excessive bleeding Restless legs Back pain Migraine headache TIA (transient ischemic attack) Non-smoker BiPAP (biphasic positive airway pressure) dependence On home oxygen therapy Shortness of breath on exertion Leg cramps History of pain when walking History of edema History of stress test Hx of transesophageal echocardiography (YOLANDA) for monitoring History of echocardiogram Cardiology follow-up encounter Rotator cuff arthropathy of right shoulder History of DVT (deep vein thrombosis) Back pain with sciatica Nonrheumatic aortic (valve) stenosis Essential hypertension Carotid artery disease Atherosclerotic heart disease of [place] coronary artery without angina pectoris Personal history of anaphylaxis Bilateral carotid bruits Body mass index 45.0-49.9, adult Diastolic heart failure COPD (chronic obstructive pulmonary disease) CHELSEY treated with BiPAP History of pulmonary embolism Morbid obesity Type 2 diabetes mellitus Asthma Home Medications ?Medication ?Instructions ?Recorded ?Last Taken ?Type calcium 600 mg-D3 800 unit-mag 40 1 ea PO DAILY vitamins 05/27/16 01/18/25 History ee-ejbw-kanh-angel-boron chew tablet fenofibrate nanocrystallized 145 72.5 mg PO QHS cholesterol 04/26/19 01/18/25 History mg tablet trazodone 50 mg tablet 50 mg PO QHS sleep 08/09/19 01/18/25 History epinephrine 0.3 mg/0.3 mL 0.3 mg (0.3 mL) IM X1 PRN 01/18/20 Unknown Rx injection, auto-injector Anaphylaxis #1 ea albuterol sulfate 2.5 mg/3 mL 2.5 mg (3 mL) inhalation Q2H PRN 04/24/20 01/19/25 Rx (0.083 %) solution for nebulization PRN dyspnea, wheezing #180 mL albuterol sulfate 90 mcg/actuation 2 inh inhalation Q4H PRN PRN Sob 04/24/20 01/19/25 Rx aerosol inhaler &/Or Wheezing #18 grams montelukast 10 mg tablet 10 mg PO DAILY allergies/asthma 12/07/20 01/19/25 Rx #30 tabs alendronate 70 mg tablet 70 mg PO WE bone health 12/21/20 01/12/25 History budesonide-formoterol HFA 160 2 puff inhalation BID asthma 03/22/21 01/19/25 History mcg-4.5 mcg/actuation aerosol inhaler ipratropium 0.5 mg-albuterol 3 mg 3 ml inhalation BID asthma 03/22/21 01/18/25 History (2.5 mg base)/3 mL nebulization soln melatonin 10 mg tablet 12 mg PO QHS sleep 04/05/21 01/18/25 History pregabalin 150 mg capsule 150 mg PO TID nerve pain 04/05/21 04/11/25 History meclizine 25 mg tablet 25 mg PO DAILY PRN Vertigo 05/04/21 01/18/25 History magnesium 250 mg tablet 400 mg PO DAILY supplement 08/17/21 01/19/25 History levocetirizine 5 mg tablet 5 mg PO DAILY allergies 11/07/21 01/18/25 History dapagliflozin propanediol 10 mg 10 mg PO DAILY diabetes 08/11/22 02/24/25 History tablet (Farxiga) multivitamin (Daily Multi-Vitamin 1 tab PO DAILY SUPPLEMENT 06/12/23 01/19/25 History tablet) azelastine 137 mcg-fluticasone 50 2 spray intranasal BID allergy 08/25/23 01/19/25 History mcg/spray nasal spray cholecalciferol (vitamin D3) 125 125 mcg PO DAILY vitamin-self care 08/25/23 01/19/25 History mcg (5,000 unit) tablet (Vitamin D3) Lactobacillus acidophilus 1 tab PO DAILY Supplement 09/29/23 01/19/25 History (Acidophilus chewable tablet) ondansetron 4 mg disintegrating 4 mg PO DAILY PRN nausea 09/29/23 Unknown History tablet zinc 100 mg tablet 100 mg PO DAILY supplement 09/29/23 01/19/25 History atorvastatin 40 mg tablet 40 mg PO QHS 30 days #30 tabs 09/17/24 01/18/25 Rx topiramate 50 mg tablet 50 mg PO BID 30 days #60 tabs 09/17/24 01/19/25 Rx furosemide 40 mg tablet 40 mg PO .COMPLEX diuresis 09/27/24 01/19/25 History ascorbate calcium (vitamin C) 500 1 g PO DAILY vitamin 01/03/25 01/19/25 History mg tablet mecobalamin (vitamin B12) 5,000 5,000 mcg PO QDAY 01/03/25 01/19/25 History mcg chewable tablet oxycodone-acetaminophen 5 mg-325 1 tab PO BID PRN pain 01/03/25 01/19/25 History mg tablet fluoxetine 40 mg capsule 40 mg PO DAILY 01/19/25 01/19/25 History omeprazole 40 mg capsule,delayed 40 mg PO DAILY gerd 01/19/25 04/11/25 History release rizatriptan 5 mg tablet 5 mg PO PRN 01/19/25 Unknown History semaglutide 2 mg/dose (8 mg/3 mL) 2 mg subcut QWEEK 01/19/25 02/20/25 History subcutaneous pen injector (Ozempic) warfarin 4 mg tablet 4 mg PO DAILY 01/19/25 04/06/25 History warfarin 5 mg tablet 5 mg PO DAILY 01/19/25 04/06/25 History losartan 25 mg tablet 25 mg PO QDAY #90 tabs 02/02/25 03/01/25 Rx metoprolol tartrate 25 mg tablet 25 mg PO BID #180 tabs 02/02/25 04/11/25 Rx linaclotide 290 mcg capsule 290 mcg PO QAM #90 caps 02/22/25 Unknown Rx (Linzess) insulin glargine U-300 conc 300 15 unit subcut BID DIABETES 02/24/25 Unknown History unit/mL (1.5 mL) subcutaneous pen (Toujeo SoloStar U-300 Insulin) docusate sodium 100 mg capsule 100 mg PO TID stool softener 03/22/25 Unknown History peg 3350-electrolytes 236 240 ml PO .COMPLEX #8,000 mL 03/22/25 Unknown Rx gram-22.74 gram-6.74 gram-5.86 gram solution (Golytely) polyethylene glycol 3350 17 17 g PO ONCE #1,530 grams 03/22/25 Unknown Rx gram/dose oral powder (Miralax) tiotropium bromide 18 mcg capsule 18 mcg inhalation DAILY PRN asthma 03/22/25 Unknown History with inhalation device tizanidine 4 mg capsule 4 mg PO TID PRN muscle spasticity 03/22/25 Unknown History beclomethasone dipropionate 80 1 inh inhalation BID PRN Asthma 03/31/25 Unknown History mcg/actuation HFA breath activated aerosol erenumab-aooe 140 mg/mL 140 mg subcut [id number] PRN 03/31/25 Unknown History subcutaneous auto-injector migraine headache (Aimovig Autoinjector) spironolactone 50 mg tablet 25 mg (1/2 x 50 mg) PO BID #30 tabs 03/31/25 Unknown Rx ascorbic acid (vitamin C) 500 mg 0.5 g PO QHS 04/07/25 Unknown History chewable tablet (Acerola C) Allergy/AdvReac Type Severity Reaction Status Date / Time clindamycin Allergy Rash Verified 04/11/25 07:34 erythromycin base Allergy Rash Verified 04/11/25 07:34 (Erythromycin Base) omalizumab (From Xolair) Allergy Chest Verified 04/11/25 07:34 tightness Penicillins Allergy Rash Verified 04/11/25 07:34 sulfamethoxazole (From Allergy Chest Verified 04/11/25 07:34 Bactrim) tightness trimethoprim (From Bactrim) Allergy Chest Verified 04/11/25 07:34 tightness Sulfa (Sulfonamide AdvReac Unknown Unknown Verified 04/11/25 07:34 Antibiotics) Family History Father Heart disease Diabetes CAD (coronary artery disease) Mother CAD (coronary artery disease) CVA (cerebral vascular accident) Diabetes Brother CAD (coronary artery disease) CVA (cerebral vascular accident) Diabetes Unknown Cancer Grandmother CVA (cerebral vascular accident) Diabetes Grandfather CVA (cerebral vascular accident) Grandmother Myocardial infarction Brother Diabetes Sister Diabetes Surgical History Status post cardiac pacemaker procedure History of laminectomy History of colonoscopy History of cardiac catheterization Aortic valve replaced History of left heart catheterization (LHC) (~01/19/21) H/O lumbosacral spine surgery History of rotator cuff surgery Hx of appendectomy History of hernia repair History of section History of neck surgery Social History household members: spouse housing: apartment pets and animals: Yes Smoking Status: Never smoker second hand exposure: No alcohol intake: current alcohol intake frequency: a few times a week substance use type: does not use caffeine: No what type of physical activity do you participate in: none do you feel safe at home: Yes ROS Constitutional Constitutional: Denies fatigue, fever(s), poor appetite, weight gain or weight loss Gastrointestinal Gastrointestinal: Denies belching, bloating, change in bowel habits, change in stool character, chewing difficulty, coffee ground emesis, constipation, cramping, diarrhea, dyspepsia, dysphagia, early satiety, excessive flatus, fecal incontinence, heartburn, hematemesis, hematochezia, hemorrhoids, loose stools, melena, nausea, odynophagia, rectal bleeding, tenesmus, vomiting or weight changes Physical Exam Const alert, oriented x3, no apparent distress and healthy appearing General Appearance: cooperative GI normal to inspection, nondistended, normoactive bowel sounds, soft to palpation, non-tender and non-distended Percussion: normal to percussion Rectal Exam: deferred Assessment & Plan Assessment/Plan (1) Right sided abdominal pain: (2) Constipation by delayed colonic transit: PLAN: Assessment and Plan Assessment and Plan (1) Right sided abdominal pain: Status: Acute (2) Steatosis, liver: Status: Acute (3) Mesenteric panniculitis: Status: Acute Comment: Increased density in the adjacent mesenteric fat is a hallmark of the inflammatory process seen in mesenteric panniculitis. Mesenteric desmoid tumors, while possible, are usually soft-tissue density rather than fat density and tend to be more solid and infiltrative without the characteristic fat attenuation or inflammatory changes. In reviewing prior imaging from 2022, it appears this lesion was also present at that time. (4) Constipation by delayed colonic transit: Status: Acute Orders: Orders CBC W/Diff, Automated Today K76.0 - Fatty (change of) liver, not elsewhere classified, R10.9 - Unspecified abdominal pain Liver Profile Today K76.0 - Fatty (change of) liver, not elsewhere classified, R10.9 - Unspecified abdominal pain Hepatitis A AB, Total Today K76.0 - Fatty (change of) liver, not elsewhere classified, R10.9 - Unspecified abdominal pain Hepatitis B Core Ab Total Today K76.0 - Fatty (change of) liver, not elsewhere classified, R10.9 - Unspecified abdominal pain Hepatitis B Surface Antibody Today K76.0 - Fatty (change of) liver, not elsewhere classified, R10.9 - Unspecified abdominal pain Hepatitis B Surface Antigen Today K76.0 - Fatty (change of) liver, not elsewhere classified, R10.9 - Unspecified abdominal pain Hepatitis C Antibody Today K76.0 - Fatty (change of) liver, not elsewhere classified, R10.9 - Unspecified abdominal pain Elastography US 1st Target Les Today K76.0 - Fatty (change of) liver, not elsewhere classified, R10.9 - Unspecified abdominal pain Referrals General Surgery Medications: New polyethylene glycol 3350 (Miralax) 17 grams PO ONCE 1,530 grams 1RF peg 3350-electrolytes 236-22.74-6.74 -5.86 gram (Golytely) 480 mL orally; as directed for two day split dose bowel prep 8,000 mL 0RF Plan Patient is a complex, medically comorbid individual with persistent esophageal dysphagia to solids despite a normal EGD, which showed a normal esophagus and multiple benign-appearing gastric polyps (H. pylori negative). Modified barium swallow (MBS) performed on 09/17/24 revealed esophageal retention of solids with retrograde flow, which improved with liquid wash, suggesting underlying esophageal dysmotility. Given ongoing symptoms and lack of findings on endoscopy, high-resolution esophageal manometry is recommended as the next diagnostic step to evaluate for possible major esophageal motility disorder, such as achalasia or EGJ outflow obstruction. Her heartburn is well-controlled on omeprazole 40 mg daily, and she denies nausea or vomiting. She is s/p recent aortic valve replacement and is doing well postoperatively. Constipation is likely multifactorial, related to both Ozempic and chronic opioid use; she has improved bowel movements with Linzess 290 mcg daily, stool softeners TID, and will now add daily Miralax to address incomplete evacuation. Repeat colonoscopy is indicated due to previously poor bowel prep despite half-day MiraLAX and 1-day GoLytely regimen; we will proceed with a full 2-day GoLytely prep, plus extra MiraLAX in the days prior to ensure adequate visualization. She also presents with chronic, waxing and waning right-sided abdominal pain since December 2024, significantly impacting her daily function. CT imaging from 03/08/25 revealed a 10 x 10cm fat-density lesion in the right pericolic gutter with surrounding mesenteric fat stranding, most consistent with mesenteric panniculitis. Differential includes mesenteric lipoma and desmoid tumor; however, based on density, appearance, and stability on comparison with prior imaging, panniculitis is favored. Imaging was reviewed with Dr. Carey, who concurs with the likely diagnosis and recommends surgical referral for further evaluation and management. Additional findings included a 2.7 cm simple left renal cyst and a 3 cm simple left ovarian cyst, which do not appear clinically significant at this time; as well as liver steatosis. We will proceed with manometry, repeat colonoscopy with optimized prep, and surgical referral for evaluation of mesenteric panniculitis. She will also complete work-up for liver steatosis including labs and Elastography. Continue current GI medications, with close follow-up to reassess symptom burden. Note: Pusher speech recognition gaming commissioner software was used to create portions of this document. Sound-alike and misspelled words, as well as other gaming commissioner errors may be contained in the documentation. Patient Instructions: Linzess 290mcg once daily Continue stool softener TID Add Miralax 17g once daily Esophageal Manometry Colon 2 day GoLytely prep with few extra doses of Miralax a few days prior Elastography Labs Can f/u at a later time regarding fatty liver Referral to Dr. Loera
[2025-04-11] MEDS: Lactated Ringers 1,000 ML 15 ML IV (07:59)
--- NOTE | 2025-04-11 08:03 | PRE.ANES_ITS ---
ASA Classification* ASA Classification ASA Classification: 3 Assessment & Plan Anesthesia* Anesthesia Assessment Anesthesia Assessment: Discussed sedation and/or anesthesia options, risks, benefits, and alternatives with patient/parents/legal guardian/POA. Questions invited. The patient/parents/legal guardian/POA seems to understand and agrees to proceed with anesthesia plan. Reviewed the physical assessment, medical history, allergy history and patient home medications list prior to surgery/procedure/anesthetic and documented any changes. Performed airway and anesthesia risk assessments. Anesthesia Type Anesthesia Type: MAC History Source History Obtained from:: Patient and Chart Anesthesia Focused Assessment* Temperature: 97.3 F Pulse Rate: 76 Blood Pressure: 136/81 Respiratory Rate: 16 Pulse Ox: 98 Oxygen Delivery Method: Room Air Airway Assessment Mouth opens: >3 cm Mallampati Score: I Teeth Condition: Missing (Patient has several missing teeth. Rest are tight.) Neck Range of motion (ROM): Limited ROM (Slight decrease in extension) Labs Anesthesia Preop lab: CBC WBC 6.8 K/mm3 (4.4-11.0) 03/22/25 11:03/22/25 RBC 5.18 M/mm3 (4.2-5.4) 03/22/25 11:03/22/25 Hgb 14.2 g/dL (12.0-15.0) 03/22/25 11:29 03/22/25 Hct 44.1 % (37-47) 03/22/25 11:29 03/22/25 Plt Count 265 K/mm3 (150-450) 03/22/25 11:29 03/22/25 CHEMISTRY Potassium 3.9 mmol/L (3.3-5.1) 03/08/25 10:21 03/08/25 Sodium 137 mmol/L (133-145) 03/08/25 10:21 03/08/25 Magnesium 2.3 mg/dL (1.6-2.6) 02/25/24 09:24 02/25/24 Phosphorus 3.9 mg/dL (2.5-4.9) 08/26/23 07:00 08/26/23 BUN 20 mg/dL (4-19) H 03/08/25 10:21 03/08/25 Creatinine 0.90 mg/dL (0.70-1.20) 03/08/25 10:21 03/08/25 Glucose 107 mg/dL (70-99) H 03/08/25 10:21 03/08/25 POC Glucose 99 mg/dL (74-106) 03/01/25 14:44 03/01/25 TSH 0.992 uIU/mL (0.300-4.200) 03/01/25 13:53 05/ COAG PT 13.7 SECONDS (11.7-14.9) 03/22/25 11:29 INR 2.3 02/14/21 10:59 02/14/21 Pre-Assessment Diagnosis/Proposed Procedure Planned Operative Procedure(s): COLONOSCOPY Anesthesia History Anesthesia History - financial aid coordinator: Anesthesia History - financial aid coordinator Hx Hospitalization Yes: AORTIC VALVE REP 04/07/25 15:31 LACEMENT, TIA, FALL Any Problems With Anesthesia No 04/07/25 15:31 Cholinesterase deficiency No 04/07/25 15:31 You/Your Family Experience No 04/07/25 15:31 fever (hyperthermia) with Relationship Recent Exposure to Contagious No 04/11/25 07:53 Disease Does patient have nerve No 04/07/25 15:31 stimulator Patient instructed to have device shut off --Does patient have Pacemaker No 04/11/25 07:53 or ICD? When Was Last Pacemaker Check QUESTION #4 FULL TEXT: You/Your Family Experience fever (hyperthermia) with Anesthesia Last Oral Intake Last Oral intake: Last Oral Intake NPO since 06:30 04/11/25 07:53 Meds taken in AM with sips of Yes 04/11/25 07:53 water? Meds patient instructed to take am of surgery Any additional information?: Yes NPO since: 06:30 (Patient sips of water with pain meds.) Meds taken in AM with sips of water?: Yes PONV PONV - financial aid coordinator: PONV - financial aid coordinator Female Yes 04/07/25 15:31 HX of Motion Sickness Yes 04/07/25 15:31 HX of N/V After Surgery Yes 04/07/25 15:31 Non-Smoker Yes 04/07/25 15:31 Duration of Surgery greater No 04/07/25 15:31 than 60 minutes Number of Risk Factors 4 04/07/25 15:31 PONV Score Severe Risk 04/07/25 15:31 Height & Weight Height & Weight: Anesthesia: Height & Weight Height 5 ft 4 in 04/11/25 07:53 Weight: 104.78 kg 04/11/25 07:53 Body Mass Index (BMI) 39.6 04/11/25 07:53 Respiratory Assessment Respiratory Assessment - financial aid coordinator: Respiratory Tract Infection Hx - financial aid coordinator Hx Respiratory Tract Infection No 04/07/25 15:31 STOP Sleep Apnea STOP Sleep Apnea - financial aid coordinator: STOP Sleep Apnea - financial aid coordinator Hx Hypertension Yes 04/07/25 15:31 Hx Sleep Apnea Yes 04/07/25 15:31 CPAP No 04/07/25 15:31 BIPAP Yes 04/07/25 15:31 Do you snore loudly (louder than talking or can be heard Do you often feel tired/ fatigued/ sleepy during daytime? Has anyone observed you stop breathing during sleep? STOP Results Positive 04/07/25 15:31 QUESTION #5 FULL TEXT : Do you snore loudly (louder than talking or can be heard through closed doors)? 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 Specify any problems Hx of Preganancy in last 3 No 04/07/25 15:31 Months Nurse Filling Out Transfusion [email or web address] 04/07/25 15:31 & Questions: Date: 04/07/25 04/07/25 15:31 Time: 15:35 04/07/25 15:31 Patient unable to answer at this time (ie. confused, unrespo /Reproduction History /Reproductive History - financial aid coordinator: /Reproductive Hx- financial aid coordinator Hx Now Gestational Age (in weeks): EDC: Hx Hx Para Hx Section SAB No 04/07/25 15:31 Active Medications Active Medications: Current Medications Generic Name Dose Route Start Last Admin Trade Name Freq PRN Reason Stop Dose Admin Lactated Ringer's 1,000 mls @ 15 mls/hr 04/11/25 07:15 04/11/25 07:59 IV 15 mls/hr .Q48H PHANI Administration PFSH Medical History Wears glasses MRSA infection Open wound Walker as ambulation aid Gastric reflux History of pacemaker Surgical complete heart block Acute on chronic hypoxic respiratory failure COPD exacerbation Acute CVA (cerebrovascular accident) Obesity (BMI 30-39.9) Rectal bleeding Subtherapeutic international normalized ratio (INR) Peripheral neuropathy Positive FIT (fecal immunochemical test) History of transcatheter aortic valve replacement (TAVR) (~04/19/21) COVID-19 Depression Anxiety Discoloration of skin History of steroid therapy Insulin dependent diabetes mellitus Diabetes Arthritis High cholesterol Pulmonary embolism Easy bruising Excessive bleeding Restless legs Back pain Migraine headache TIA (transient ischemic attack) Non-smoker BiPAP (biphasic positive airway pressure) dependence On home oxygen therapy Shortness of breath on exertion Leg cramps History of pain when walking History of edema History of stress test Hx of transesophageal echocardiography (YOLANDA) for monitoring History of echocardiogram Cardiology follow-up encounter Rotator cuff arthropathy of right shoulder History of DVT (deep vein thrombosis) Back pain with sciatica Nonrheumatic aortic (valve) stenosis Essential hypertension Carotid artery disease Atherosclerotic heart disease of [place] coronary artery without angina pectoris Personal history of anaphylaxis Bilateral carotid bruits Body mass index 45.0-49.9, adult Diastolic heart failure COPD (chronic obstructive pulmonary disease) CHELSEY treated with BiPAP History of pulmonary embolism Morbid obesity Type 2 diabetes mellitus Asthma Home Medications ?Medication ?Instructions ?Recorded ?Last Taken ?Type calcium 600 mg-D3 800 unit-mag 40 1 ea PO DAILY vitami ns 05/27/16 01/18/25 History xg-dzes-aven-angel-boron chew tablet fenofibrate nanocrystallized 145 72.5 mg PO QHS choles terol 04/26/19 01/18/25 History mg tablet trazodone 50 mg tablet 50 mg PO QHS sleep 08/09/19 01/18/25 History epinephrine 0.3 mg/0.3 mL 0.3 mg (0.3 mL) IM X1 PRN Unknown Rx injection, auto-injector Anaphylaxis #1 ea albuterol sulfate 2.5 mg/3 mL 2.5 mg (3 mL) inhalation Q2H PRN 04/24/20 01/19/25 Rx (0.083 %) solution for nebulization PRN dyspnea, wheez ing #180 mL albuterol sulfate 90 mcg/actuation 2 inh inhalation Q4 H PRN PRN Sob 04/24/20 04/11/25 Rx aerosol inhaler &/Or Wheezing #18 grams montelukast 10 mg tablet 10 mg PO DAILY allergies/ast hma 12/07/20 01/19/25 Rx #30 tabs alendronate 70 mg tablet 70 mg PO WE bone health 12/1101/12/25 History budesonide-formoterol HFA 160 2 puff inhalation BID as thma 03/22/21 01/19/25 History mcg-4.5 mcg/actuation aerosol inhaler ipratropium 0.5 mg-albuterol 3 mg 3 ml inhalation BID asthma 03/22/21 01/18/25 History (2.5 mg base)/3 mL nebulization soln melatonin 10 mg tablet 12 mg PO QHS sleep 04/05/21 01/18/25 History pregabalin 150 mg capsule 150 mg PO TID nerve pain 04/11/25 History meclizine 25 mg tablet 25 mg PO DAILY PRN Vertigo 0 05/04/21 01/18/25 History magnesium 250 mg tablet 400 mg PO DAILY supplement 1 10/17/20 01/19/25 History levocetirizine 5 mg tablet 5 mg PO DAILY allergies 01/18/25 History dapagliflozin propanediol 10 mg 10 mg PO DAILY diabete s 08/11/22 02/24/25 History tablet (Farxiga) multivitamin (Daily Multi-Vitamin 1 tab PO DAILY SUPPL EMENT 06/12/23 01/19/25 History tablet) azelastine 137 mcg-fluticasone 50 2 spray intranasal B ID allergy 08/25/23 01/19/25 History mcg/spray nasal spray cholecalciferol (vitamin D3) 125 125 mcg PO DAILY anabel min-self care 08/25/23 01/19/25 History mcg (5,000 unit) tablet (Vitamin D3) Lactobacillus acidophilus 1 tab PO DAILY Supplement 01/19/25 History (Acidophilus chewable tablet) ondansetron 4 mg disintegrating 4 mg PO DAILY PRN naus ea 09/29/23 Unknown History tablet zinc 100 mg tablet 100 mg PO DAILY supplement 1 11/30/22 01/19/25 History atorvastatin 40 mg tablet 40 mg PO QHS 30 days #30 tab s 09/17/24 01/18/25 Rx topiramate 50 mg tablet 50 mg PO BID 30 days #60 tab s 09/17/24 01/19/25 Rx furosemide 40 mg tablet 40 mg PO .COMPLEX diuresis 1 11/28/23 01/19/25 History ascorbate calcium (vitamin C) 500 1 g PO DAILY vitamin 01/03/25 01/19/25 History mg tablet mecobalamin (vitamin B12) 5,000 5,000 mcg PO QDAY 12/1201/19/25 History mcg chewable tablet oxycodone-acetaminophen 5 mg-325 1 tab PO BID PRN pain 01/03/25 01/19/25 History mg tablet fluoxetine 40 mg capsule 40 mg PO DAILY 01/19/2507/07 History omeprazole 40 mg capsule,delayed 40 mg PO DAILY gerd 0 01/19/25 04/11/25 History release rizatriptan 5 mg tablet 5 mg PO PRN 01/19/25 Unknown History semaglutide 2 mg/dose (8 mg/3 mL) 2 mg subcut QWEEK 02/20/25 History subcutaneous pen injector (Ozempic) warfarin 4 mg tablet 4 mg PO DAILY 01/19/2504/06 History warfarin 5 mg tablet 5 mg PO DAILY 01/19/2504/06 History losartan 25 mg tablet 25 mg PO QDAY #90 tabs 02/0203/01/25 Rx metoprolol tartrate 25 mg tablet 25 mg PO BID #180 tab s 02/02/25 04/11/25 Rx linaclotide 290 mcg capsule 290 mcg PO QAM #90 caps Unknown Rx (Linzess) insulin glargine U-300 conc 300 15 unit subcut BID JOEY BETES 02/24/25 Unknown History unit/mL (1.5 mL) subcutaneous pen (Toujeo SoloStar U-300 Insulin) docusate sodium 100 mg capsule 100 mg PO TID stool sof tener 03/22/25 Unknown History peg 3350-electrolytes 236 240 ml PO .COMPLEX #8,000 mL 03/22/25 Unknown Rx gram-22.74 gram-6.74 gram-5.86 gram solution (Golytely) polyethylene glycol 3350 17 17 g PO ONCE #1,530 grams 03/22/25 Unknown Rx gram/dose oral powder (Miralax) tiotropium bromide 18 mcg capsule 18 mcg inhalation DA JAZMIN PRN asthma 03/22/25 Unknown History with inhalation device tizanidine 4 mg capsule 4 mg PO TID PRN muscle spast icity 03/22/25 Unknown History beclomethasone dipropionate 80 1 inh inhalation BID SC N Asthma 03/31/25 Unknown History mcg/actuation HFA breath activated aerosol erenumab-aooe 140 mg/mL 140 mg subcut [id number] PRN 0 03/31/25 Unknown History subcutaneous auto-injector migraine headache (Aimovig Autoinjector) spironolactone 50 mg tablet 25 mg (1/2 x 50 mg) PO BID #30 tabs 03/31/25 Unknown Rx ascorbic acid (vitamin C) 500 mg 0.5 g PO QHS 04/07/25 Unknown History chewable tablet (Acerola C) Allergy/AdvReac Type Severity Reaction Status Date / Time clindamycin Allergy Rash Verified 04/11/25 07:34 erythromycin base Allergy Rash Verified 04/11/25 07:34 (Erythromycin Base) omalizumab (From Xolair) Allergy Chest Verified 04/11/25 07:34 tightness Penicillins Allergy Rash Verified 04/11/25 07:34 sulfamethoxazole (From Allergy Chest Verified 04/11/25 07:34 Bactrim) tightness trimethoprim (From Bactrim) Allergy Chest Verified 04/11/25 07:34 tightness Sulfa (Sulfonamide AdvReac Unknown Unknown Verified 04/11/25 07:34 Antibiotics) Family History Father Heart disease Diabetes CAD (coronary artery disease) Mother CAD (coronary artery disease) CVA (cerebral vascular accident) Diabetes Brother CAD (coronary artery disease) CVA (cerebral vascular accident) Diabetes Unknown Cancer Grandmother CVA (cerebral vascular accident) Diabetes Grandfather CVA (cerebral vascular accident) Grandmother Myocardial infarction Brother Diabetes Sister Diabetes Surgical History Status post cardiac pacemaker procedure History of laminectomy History of colonoscopy History of cardiac catheterization Aortic valve replaced History of left heart catheterization (LHC) (~01/19/21) H/O lumbosacral spine surgery History of rotator cuff surgery Hx of appendectomy History of hernia repair History of section History of neck surgery Social History household members: spouse housing: apartment pets and animals: Yes Smoking Status: Never smoker second hand exposure: No alcohol intake: current alcohol intake frequency: a few times a week substance use type: does not use caffeine: No what type of physical activity do you participate in: none do you feel safe at home: Yes Review of Systems (Anesthesia) ROS Narrative System reviewed and no additional complaints, except as documented.
[2025-04-11 08:19] LABS: Bedside Glucose 83 mg/dL (74-106)
--- NOTE | 2025-04-11 08:57 | PCM.POST.ANE ---
Anesthesia: Postop Eval I Current Vital Signs Temperature: 97 F Pulse Rate: 72 Blood Pressure: 99/62 Respiratory Rate: 16 Pulse Ox: 90 Assessment Airway patent: Yes Spontaneous unlabored respirations: Yes nausea: Yes Vomiting: No Anesthesia Complication: No Fluid Hydration Crystalloid volume administer (ml): 400 Total IV fluid infused: 400 Progress Note Anesthesia document: Postop Eval 1 completed: Yes
--- NOTE | 2025-04-11 09:02 | OP.COLON_ITS ---
Patient Name: Maryse Kelley Procedure Date: 04/11/2025 8:19 AM Date of : 1960 Age: 64 Procedure: Colonoscopy Indications: High risk colon cancer surveillance: Personal history of colonic polyps Providers: Devyn Alcantar DO Referring MD: Ophelia Soria Medicines: Monitored Anesthesia Care Patient Profile: This is a 64 year old female. Refer to note in patient chart for documentation of history and physical. Last Colonoscopy: within the past 3 years. Complications: No immediate complications. Procedure: Pre-Anesthesia Assessment: - Prior to the procedure, a History and Physical was performed, and patient medications and allergies were reviewed. The patient is competent. The risks and benefits of the procedure and the sedation options and risks were discussed with the patient. All questions were answered and informed consent was obtained. Patient identification and proposed procedure were verified by the physician in the pre-procedure area. Mental Status Examination: alert and oriented. Airway Examination: normal oropharyngeal airway and neck mobility. Respiratory Examination: clear to auscultation. CV Examination: normal. Prophylactic Antibiotics: The patient does not require prophylactic antibiotics. Prior Anticoagulants: The patient has taken no anticoagulant or antiplatelet agents. ASA Grade Assessment: II - A patient with mild systemic disease. After reviewing the risks and benefits, the patient was deemed in satisfactory condition to undergo the procedure. The anesthesia plan was to use monitored anesthesia care (MAC). Immediately prior to administration of medications, the patient was re-assessed for adequacy to receive sedatives. The heart rate, respiratory rate, oxygen saturations, blood pressure, adequacy of pulmonary ventilation, and response to care were monitored throughout the procedure. The physical status of the patient was re-assessed after the procedure. After I obtained informed consent, the scope was passed under direct vision. Throughout the procedure, the patient's blood pressure, pulse, and oxygen saturations were monitored continuously. The adult colonoscope was introduced through the anus and advanced to the ileocecal valve. The colonoscopy was performed without difficulty. The patient tolerated the procedure well. The quality of the bowel preparation was adequate. The ileocecal valve and the appendiceal orifice were photographed. Scope In: 8:29:33 AM Scope Withdrawal Time 0 hours 16 minutes 22 seconds Scope Out: 8:49:54 AM Total Procedure Duration Time 0 hours 20 minutes 21 seconds Findings: The perianal and digital rectal examinations were normal. Multiple small and large-mouthed diverticula were found in the recto-sigmoid colon, sigmoid colon and descending colon. Stool was found in the cecum. Impression: - Diverticulosis in the recto-sigmoid colon, in the sigmoid colon and in the descending colon. - Stool in the cecum. - No specimens collected. Recommendation: - Discharge patient to home. - Resume previous diet. - Continue present medications. - Repeat colonoscopy in 3 years for surveillance. Procedure Code(s): --- Professional --- 05759, Colonoscopy, flexible; diagnostic, including collection of specimen(s) by brushing or washing, when performed (separate procedure) CPT copyright 2021 [employer]. All rights reserved. The codes documented in this report are preliminary and upon durable medical equipment technician review may be revised to meet current compliance requirements. Devyn Alcantar DO 04/11/2025 9:01:42 AM This report has been signed electronically. Number of Addenda: 0 Note Initiated On: 04/11/2025 8:19 AM
--- NOTE | 2025-04-11 09:02 | OP.CCLET_ITS ---
04/11/2025 Ophelia Soria [address] [place] [address] Re : Colonoscopy procedure for Maryse Warren Dear Dr. Soria This procedure was performed on Friday, April 11, 2025. My impressions and recommendations are as follows: Impressions : - Diverticulosis in the recto-sigmoid colon, in the sigmoid colon and in the descending colon. - Stool in the cecum. - No specimens collected. Recommendations : - Discharge patient to home. - Resume previous diet. - Continue present medications. - Repeat colonoscopy in 3 years for surveillance. My findings are described in the full procedure note, which is enclosed. If I can be of further assistance, please feel free to contact me at . Sincerely, Devyn Alcantar, 04/11/2025 9:01:42 AM This report has been signed electronically.
--- NOTE | 2025-04-11 10:51 | POSTOPAN2_ITS ---
Anesthesia Postop Eval I Sum Postop Eval Completion status Anesthesia document: Postop Eval 1 completed: Yes Anesthesia Postop Eval I Summary Anesthesia Postop Eval I Summary: Anesthesia Postop Eval I: Assessment Summary Airway patent Yes 04/11/25 08:57 ADMISSION [email or web address].[email or web address] Spontaneous unlabored Yes 04/11/25 08:57 ADMISSION SPECIALIST.[email or web address] respirations Mental status nausea Yes 04/11/25 08:57 ADMISSION SPECIALIST.[email or web address] Vomiting No 04/11/25 08:57 ADMISSION SPECIALIST.[email or web address] Anesthesia Postop Eval I: Fluid Summary Crystalloid volume administer 400 04/11/25 08:57 ADMISSION SPECIALIST.TNES (ml) Colloids volume administered ( ml) Blood Product volume administered (ml) Total IV fluid infused 400 04/11/25 08:57 ADMISSION SPECIALIST.[email or web address] Anesthesia Postop Eval I: Summary Notes Anesthesia Complication No 04/11/25 08:57 ADMISSION SPECIALIST.[email or web address] Anesthesia Complication Comment: Post-operative progress note Anesthesia: Postop Eval II Evaluation Mental status: Awake Pain Level: 0 nausea: No Vomiting: No
--- NOTE | 2025-04-11 10:51 | PCM.POSTANE2 ---
Anesthesia Postop Eval I Sum Postop Eval Completion status Anesthesia document: Postop Eval 1 completed: Yes Anesthesia Postop Eval I Summary Anesthesia Postop Eval I Summary: Anesthesia Postop Eval I: Assessment Summary Airway patent Yes 04/11/25 08:57 UTILITY WORKER ROLLER [email or web address] Spontaneous unlabored Yes 04/11/25 08:57 UTILITY WORKER ROLLER SHOP.[email or web address] respirations Mental status nausea Yes 04/11/25 08:57 UTILITY WORKER ROLLER SHOP.[email or web address] Vomiting No 04/11/25 08:57 UTILITY WORKER ROLLER SHOP.[email or web address] Anesthesia Postop Eval I: Fluid Summary Crystalloid volume administer 400 04/11/25 08:57 UTILITY WORKER ROLLER SHOP.TNES (ml) Colloids volume administered ( ml) Blood Product volume administered (ml) Total IV fluid infused 400 04/11/25 08:57 UTILITY WORKER ROLLER SHOP.TNES Anesthesia Postop Eval I: Summary Notes Anesthesia Complication No 04/11/25 08:57 UTILITY WORKER ROLLER SHOP.TNES Anesthesia Complication Comment: Post-operative progress note Anesthesia: Postop Eval II Evaluation Mental status: Awake Pain Level: 0 nausea: No Vomiting: No
[2025-04-12 10:19] LABS: INR Fingerstick 1.2; Prothrombin Time Fingerstick 14.4 SEC (11.7-14.9)
== END 2025-04-11 09:49 | disposition home or self-care (01) ==
LOC: EN 07:01 → AC 07:02
PROVIDERS: PCP Internal Medicine; Referring Provider Internal Medicine; Visit Provider Internal Medicine Gastroenterology
PROC: 0DJD8ZZ Inspection of Lower Intestinal Tract, Via Natural or Artificial Opening Endoscopic (ICD-10-PCS; CPT 45378; principal; 2025-04-11 07:55)
DX: Z12.11 Encounter for screening for malignant neoplasm of colon (principal); I11.0 Hypertensive heart disease with heart failure; I50.32 Chronic diastolic (congestive) heart failure; K65.4 Sclerosing mesenteritis; J44.9 Chronic obstructive pulmonary disease, unspecified; E66.01 Morbid (severe) obesity due to excess calories; E11.42 Type 2 diabetes mellitus with diabetic polyneuropathy; Z79.4 Long term (current) use of insulin; K57.30 Diverticulosis of large intestine without perforation or abscess without bleeding; I25.10 Atherosclerotic heart disease of native coronary artery without angina pectoris; E78.00 Pure hypercholesterolemia, unspecified; K21.9 Gastro-esophageal reflux disease without esophagitis; K76.0 Fatty (change of) liver, not elsewhere classified; K59.01 Slow transit constipation; R13.19 Other dysphagia; Z95.2 Presence of prosthetic heart valve; Z79.01 Long term (current) use of anticoagulants; Z79.51 Long term (current) use of inhaled steroids; Z79.84 Long term (current) use of oral hypoglycemic drugs; Z79.85 Long-term (current) use of injectable non-insulin antidiabetic drugs; Z79.899 Other long term (current) drug therapy; Z86.0100 Personal history of colon polyps, unspecified; Z86.711 Personal history of pulmonary embolism; Z86.718 Personal history of other venous thrombosis and embolism; Z86.16 Personal history of COVID-19; Z99.81 Dependence on supplemental oxygen
CPT/HCPCS: 45378; 36416; 82962; 85610; J2405

== ENCOUNTER 2025-05-13 10:14 | Outpatient (RCR) | payer MEDICARE, MEDICAID, SELFPAY ==
[2025-04-07 10:59] VITALS: BMI 39.5
--- NOTE | 2025-05-06 14:20 | PCM.CR.ITP ---
Exercise - Initial Assessment Physician Prescribed Exercise Modalities: SciFit Stepper, SciFit Pro-II Ergometer and SciFit Lateral Waist Presser Intensity: 60-80% of age predicted maximum heart rate reserve Nutrition - Initial Assessment Program Goals Nutrition Program Goals Patient has diagnosis of Hyperlipidemia (ICD E78)?: Yes Weight Mgt (Other Care) Height: 5 ft 4 in Weight:: 230 lb 8 oz BMI: 39.5 Core - Initial Assessment Hypertension Resting Blood Pressure:: 112/68 Citizen Of [place] Heart Association Hypertension Guidelines Psychosocial - Initial Assess Target Goals Target Goals Psychosocial Test phq-9 Severity See PHQ-9 Score: 8 Referral to Behavioral Health PS - Interventions: Yes: Attend Stress Management Classes Patient Health Questionnaire PHQ-9 Screening Discharge Assessment: 1. Little interest or pleasure in doing things: Several days 2. Feeling down, depressed, or hopeless: Not at all 3. Trouble falling or staying asleep, or sleeping too much: Nearly every day 4. Feeling tired or having little energy: More than half the days 5. Poor appetite or overeating: More than half the days 6. Feeling bad about yourself -- or that you are a failure or have let yourself or your family down: Not at all 7. Trouble concentrating on things, such as reading the newspaper or watching television: Not at all 8. Moving or speaking so slowly that other people could have noticed. Or the opposite - being so fidgety or restless that you have been moving around a lot more than usual: Not at all 9. Thoughts that you would be better off , or of hurting yourself in some way: Not at all How difficult have these problems made it for you to do your work, take care of things at home, or get along with other people?: Very difficult Total Score: 8 Self-Efficacy 6-Item Scale Discharge Assessment: We would like to know how confident you are in doing certain activities. Please select your confidence level for: Fatigue Select Number: 3 Physical Discomfort or Pain Select Number: 2 Emotional Distress Select Number: 3 Other Symptoms or Health Problems Select Number: 3 Different Tasks and Activities Select Number: 3 Medication Select Number: 6 Total Score:: 3 Nutrition Survey Nutrition Survey Instructions Scoring Instructions Exercise - 30-day Assessment Physician Prescribed Exercise Modalities: SciFit Stepper, SciFit Pro-II Ergometer and SciFit Lateral [place] Exercise - 60-day Assessment Physician Prescribed Exercise Modalities: SciFit Stepper, SciFit Pro-II Ergometer and SciFit Lateral [place] Exercise - 90-day Assessment Physician Prescribed Exercise Modalities: SciFit Stepper, SciFit Pro-II Ergometer and SciFit Lateral [place] Exercise - Final/Discharge Visit Date of Eval: 05/06/25 Session #:: 29 Physician Prescribed Exercise Modalities: SciFit Stepper, SciFit Pro-II Ergometer and SciFit Lateral Waist Presser Frequency: 3x/week for 12 weeks [36 sessions] Intensity: 60-80% of age predicted maximum heart rate reserve Duration: 30 - 45 minutes METs - Progression 0.5-1.0 weekly:: 0.5-1 Current METSs:: 3.5 Target Heart Rate:: 93-116 Target RPE 12-16:: 12-16 Current RPE:: 13 Maximum Heart Rate:: 97 Resting Blood Pressure: 112/68 Maximum Exercise Blood Pressure: 128/60 EKG Type: Ventricular paced rhythm with rare pvc/pac Current Physical Activity or Exercising minutes: 30-45 Outcomes & Goals Goals:: Verbalizes understanding of THR, RPE & goal METS by session 6, Documents in home exercise log/reports 30 min aerobic 5 day/wk by DC and Demonstrates accurate pulse taking by DC Intervention & Plan Exercise Program Goals: Instruct on personal THR & RPE, Instruct on MET level & personal MET goal, Show patient to take own pulse /validate performance until accurate and Instruct on home exercise 30-day Reassessments 30 day Reassessments:: Met Physical Activity Home Exercise Physical Activity - Home Exercise: Safe Exercise, Warm-up, Self-monitoring, Cool-Down, Home Exercise > 30 min Daily and Sitting Time <3 hours/daily Outcomes & Goals Outcomes/Goals: Demonstrates correct Warm-up/exercise Cool-Down (S3) if = 2.5 METs, Verbalizes symptoms of exercise intolerance by Session 3 (S3) and Demonstrate safe equipment use (S3) & follows exercise prescrition (6) Intervention & Plan Plan/Intervention: Instruct warm-up & cool-down if exercising at > 2 METs, Instruct on symptoms of exercise intolerance & actions to take, Instruct & monitor on saf, Assess intial functional capacity & safety risk and Other See below 30-day Reassessments 30 day Reassessments:: Met Nutrition - 30-Day Assessment Weight Mgt (Other Care) Height: 5 ft 4 in Weight:: 230 lb 8 oz BMI: 39.5 Nutrition - 60-Day Assessment Weight Mgt (Other Care) Height: 5 ft 4 in Weight:: 230 lb 8 oz BMI: 39.5 Core - 30-Day Assessment Hypertension Citizen Of [place] Heart Association Hypertension Guidelines Reassessment Notes & Comments:: Pt keeping resting blood pressure at optimal levels Core - Final Assessment Visit Date of Eval: 05/06/25 Session #:: 29 Medication Compliance Preventative Medication(s):: Statin/lipid, Beta jake, Warfarin/Coumadin and ARB (Angiotensi Rcap) H/O mental health issues: depression, anxiety, or addiction?: No Outcomes/Goals: Verbalizes medications,desired effect & common side effects @ DC, Pt self-reports following medication regimen and Keeps card in wallet w/medications listed by DC Interventions/plans: Instruct on medication effects & side effects, Review medication list w/patient every two weeks and Instruct importance of taking meds as ordered & assist problem solving 30-day Reassessments:: Met Reassessment Notes & Comments:: Pt takes all medications as prescribed Tobacco Use Tobacco Use: Non-smoker Hypertension Hypertension Diagnosis:: Hypertension ICD-10 I10 Resting Blood Pressure:: 112/68 Citizen Of [place] Heart Association Hypertension Guidelines Peak Exercise Blood Pressure:: 128/60 Outcomes/Goals: Able to verbalize/achieve optimal blood pressure <130/80 and Incorporates diet changes & exercise for blood pressure control by DC Interventions/plan: Instruct on optimal blood pressure, hypertension & medications and Instruct on effects of sodium, alcohol, stress, exercise &hypertension 30 day Reassessments:: Met Reassessment Notes & Comments:: Pt keeping resting blood pressure at optimal levels Tobacco Cessation Referral Education Schedule Given:: Yes Core - 90 Day Assessment Hypertension Citizen Of [place] Heart Association Hypertension Guidelines Reassessment Notes & Comments:: Pt keeping resting blood pressure at optimal levels Core - 60-Day Assessment Hypertension Resting Blood Pressure:: 112/68 Citizen Of [place] Heart Association Hypertension Guidelines Psychosocial - 30-Day Assess Target Goals Target Goals Referral to Behavioral Health PS - Interventions: Yes: Attend Stress Management Classes Psychosocial - 60-Day Assess Target Goals Target Goals Referral to Behavioral Health PS - Interventions: Yes: Attend Stress Management Classes Psychosocial - 90-Day Assess Target Goals Target Goals Psychosocial Test phq-9 Severity Total Score:: 8 Referral to Behavioral Health PS - Interventions: Yes: Attend Stress Management Classes Psychosocial - Final Assessmen VIsit Date of Eval: 05/06/25 Session #:: 29 History of previous Mental disease:: No History of Emotional Disorders: None Target Goals Target Goals Psychosocial Test Tool Used:: PHQ-9 Questionnaire phq-9 Severity See PHQ-9 Score: 8 Total Score:: 8 Referral to Behavioral Health PS - Interventions: Yes: Attend Stress Management Classes Outcomes/Goals: See list Psychosocial Outcomes/Goals:: ID's personal stressors & 2 strategies to manage stress by discharge Intervention/Plan: See List Interventions/Plan:: Assess stressors,coping strategies & signs of derpression on admission, Instruct/assist pt to develop coping & personal stress Mgt strategies, Refer to Behavioral Health if appropriate, Refer to Physician if appropriate, Instruct patient to recognize signs & symptoms of depression and Instruct patient to recog 30-day Reassessments: 30 day Reassessments:: Met Reassessment Notes & Comments:: Pt denies any psychosocial needs at this time Nutrition - 90-Day Assessment Weight Mgt (Other Care) Height: 5 ft 4 in Weight:: 230 lb 8 oz BMI: 39.5 Nutrition - Final Assessment Program Goals Patient has diagnosis of Hyperlipidemia (ICD E78)?: Yes Visit Date of Assessment:: 05/06/25 Session #:: 29 Cholesterol/Lipids (Other Core Measures) Triglycerides (mg/dL): 356 Total Cholesterol (mg/dL): 212 LDL Cholesterol (mg/dL): 112 HDL Cholesterol (mg/dL): 29 Lipid Medication: fenofibrate Determine presence & major risk factors that modify LDL goal: Cigarette smoking, Hypertension or hypertensive medication, Low HDL cholesterol <40 mg/dL* and Age men > 45 years; women >/= 55 years Outcomes/Goals: Pt IDs own risk factors & lifestyle modifications by Session 10, Verbalizes symptoms of angina & response by session 3. and Pt independently manages Intervention/Plan: Advocate for lipid panel cholesterol medication if applicable, Instruct on personal lipid levels & lipid goals/NCEP guidelines and Instruct on cholesterol 30-day Reassessments:: Progressing Reassessment Notes & Comments:: Pt taking lipid medication as prescribed, pt has had recent lipid panel Diabetes (Other Core Measures) Diabetes Type: Diagnosis Type II ICD-10 E11 Fasting blood glucose:: 107 Hgb A1C (4.2 -6.3): 6.5 Insulin dependent injection/pump?: Yes Do you monitor your blood sugar at home?: Yes Outcomes/Goals:: Able to state symptoms of (hyperglycemia/hypoglycemia and how to manage) Intervention/Plan:: Instruct on (carb controlled cardiac diet) 30-day Reassessments:: Met Reassessment Notes & Comments:: Pt monitoring BS at home and has met with grief counselor one on one Weight Mgt (Other Care) Height: 5 ft 4 in Weight:: 230 lb 8 oz BMI: 39.5 Diagnosis Overweight/Obesity BMI> 30% ICD-10 E66: Yes Diagnosis High BMI/Morbid Obesity BMI> 35% ICD-10 Z68: Yes Outcomes/Goals: Pt sets, maintains & shows weight loss goal & trend during rehab Intervention/Plan: Instruct on ideal BMI & set weight loss goal w/patient, Assist pt to ID & incorporate diet changes for weight loss by S9, Refer to Structured Weight Loss program as appropriate and Encourage goal of using 250-300dcal per session for weight loss 30 day Reassessments:: Progressing Reassessment Notes & Comments:: Pt weighs self daily and has met with grief counselor one on one to discuss diet changes Healthy Eating Habits Will attend diet classes:: Yes Outcomes/Goals:: Consume diet rich in vegs,fruits,whole grain/high fiber,fish,lean meat and Limit sat/trans fats,cholesterol & added salts & sugars Intervention/Plan:: Assess current eating habits 30-day Reassessments:: Met Reassessment Notes & Comments:: Pt has attended diet classes. Education Gave educational materials for:: Signs & symptoms of hypoglycemia, Signs & symptoms of hyperglycemia, Relate diabetes to coronary artery disease and Healthy eating
[2025-05-06 14:33] VITALS: BP 112/68; BMI 39.5
--- NOTE | 2025-06-02 08:41 | CR.ITP_ITS ---
Exercise - Initial Assessment Physician Prescribed Exercise Modalities: SciFit Stepper, SciFit Pro-II Ergometer and SciFit Lateral Biodiesel Processing Technician Nutrition - Initial Assessment Weight Mgt (Other Care) Height: 5 ft 4 in Weight:: 230 lb 8 oz BMI: 39.5 Psychosocial - Initial Assess Target Goals Target Goals Referral to Behavioral Health PS - Interventions: Yes: Attend Stress Management Classes Nutrition Survey Nutrition Survey Instructions Scoring Instructions Exercise - 30-day Assessment Physician Prescribed Exercise Modalities: SciFit Stepper, SciFit Pro-II Ergometer and SciFit Lateral Biodiesel Processing Technician Exercise - 60-day Assessment Physician Prescribed Exercise Modalities: SciFit Stepper, SciFit Pro-II Ergometer and SciFit Lateral [place] Exercise - 90-day Assessment Visit Date of Eval: 06/02/25 Session #:: 28 (Pt has not attended Cardiac Rehab since 04/08/25 due to other health issues. Pt plans to return soon.) Physician Prescribed Exercise Modalities: SciFit Stepper, SciFit Pro-II Ergometer and SciFit Lateral Biodiesel Processing Technician Frequency: 3x/week for 12 weeks [36 sessions] Intensity: 60-80% of age predicted maximum heart rate reserve Duration: 30 - 45 minutes Current METSs:: 4.6 Target Heart Rate:: 93-116 Current RPE:: 11-14 Maximum Excercise HR:: 97 Resting Blood Pressure: 112/68 Maximum Exercise Blood Pressure: 128/60 EKG Type: Ventricular paced rhythm with rare PVC, PAC. Twave inversion. Outcomes & Goals Goals:: Verbalizes understanding of THR, RPE & goal METS by session 6, Documents in home exercise log/reports 30 min aerobic 5 day/wk by DC, Demonstrates accurate pulse taking by DC and Other additional outcome/goals: see below Intervention & Plan Exercise Program Goals: Instruct on personal THR & RPE, Instruct on MET level & personal MET goal, Show patient to take own pulse /validate performance until accurate, Instruct on home exercise and Other additional plan/int Physical Activity Home Exercise Physical Activity - Home Exercise: Safe Exercise, Warm-up, Self-monitoring, Cool-Down, Home Exercise > 30 min Daily and Sitting Time <3 hours/daily Outcomes & Goals Outcomes/Goals: Demonstrates correct Warm-up/exercise Cool-Down (S3) if = 2.5 METs, Verbalizes symptoms of exercise intolerance by Session 3 (S3), Demonstrate safe equipment use (S3) & follows exercise prescrition (6) and Other: See below Intervention & Plan Plan/Intervention: Instruct warm-up & cool-down if exercising at > 2 METs, Instruct on symptoms of exercise intolerance & actions to take, Instruct & monitor on saf, Assess intial functional capacity & safety risk and Other See below 30-day Reassessments 30 day Reassessments:: Progressing Reassessment Notes & Comments:: Pt to return to rehab soon Exercise - Final/Discharge Physician Prescribed Exercise Modalities: SciFit Stepper, SciFit Pro-II Ergometer and SciFit Lateral [place] Nutrition - 30-Day Assessment Weight Mgt (Other Care) Height: 5 ft 4 in Weight:: 230 lb 8 oz BMI: 39.5 Nutrition - 60-Day Assessment Weight Mgt (Other Care) Height: 5 ft 4 in Weight:: 230 lb 8 oz BMI: 39.5 Core - 30-Day Assessment Hypertension [place] [employer] Hypertension Guidelines Reassessment Notes & Comments:: BP's are within AHA normal limits Core - Final Assessment Hypertension [place] [employer] Hypertension Guidelines Reassessment Notes & Comments:: BP's are within AHA normal limits Core - 90 Day Assessment Visit Date of Eval: 06/02/25 Session #:: 28 (Pt has not attended Cardiac Rehab since 04/08/25 due to other health issues. Pt plans to return soon.) Medication Compliance Preventative Medication(s):: Statin/lipid, Beta jake, Warfarin/Coumadin and ARB (Angiotensi Rcap) Doesn?t believe in the benefits of treatment?: No Believes medications are unnecessary or harmful?: No Has a concern about medication side effects?: No Expresses concern over the cost of medications?: No Outcomes/Goals: Verbalizes medications,desired effect & common side effects @ DC, Pt self-reports following medication regimen, Keeps card in wallet w/medications listed by DC and Other additional outcome/goals: Interventions/plans: Instruct on medication effects & side effects, Review medication list w/patient every two weeks, Instruct importance of taking meds as ordered & assist problem solving and Other additional Tobacco Use Tobacco Use: Non-smoker Hypertension Hypertension Diagnosis:: Hypertension ICD-10 I10 Resting Blood Pressure:: 112/68 [place] [employer] Hypertension Guidelines Peak Exercise Blood Pressure:: 128/60 Outcomes/Goals: Able to verbalize/achieve optimal blood pressure <130/80, Incorporates diet changes & exercise for blood pressure control by DC and Other additional outcomes/goals Interventions/plan: Instruct on optimal blood pressure, hypertension & medications, Instruct on effects of sodium, alcohol, stress, exercise &hypertension and Other additional plan/interventions 30 day Reassessments:: Met Reassessment Notes & Comments:: BP's are within AHA normal limits Tobacco Cessation Referral Smoking Cessation Referral:: No Individual Education/Counseling:: No Education Schedule Given:: Yes Psychosocial - 30-Day Assess Target Goals Target Goals Referral to Behavioral Health PS - Interventions: Yes: Attend Stress Management Classes Psychosocial - 60-Day Assess Target Goals Target Goals Referral to Behavioral Health PS - Interventions: Yes: Attend Stress Management Classes Psychosocial - 90-Day Assess VIsit Date of Eval: 06/02/25 Session #:: 28 (Pt has not attended Cardiac Rehab since 04/08/25 due to other health issues. Pt plans to return soon.) Target Goals Target Goals Psychosocial Test Tool Used:: PHQ-9 Questionnaire phq-9 Severity See PHQ-9 Score: 8 Referral to Behavioral Health PS - Interventions: Yes: Attend Stress Management Classes Outcomes/Goals: See list Psychosocial Outcomes/Goals:: ID's personal stressors & 2 strategies to manage stress by discharge and Other Additional outcome/goals: Intervention/Plan: See List Interventions/Plan:: Assess stressors,coping strategies & signs of derpression on admission, Instruct/assist pt to develop coping & personal stress Mgt strategies, Refer to Behavioral Health if appropriate, Refer to Physician if appropriate, Instruct patient to recognize signs & symptoms of depression, Instruct patient to recog and Other additional plan/intervention Psychosocial - Final Assessmen Target Goals Target Goals Referral to Behavioral Health PS - Interventions: Yes: Attend Stress Management Classes Nutrition - 90-Day Assessment Program Goals Nutrition Program Goals Patient has diagnosis of Hyperlipidemia (ICD E78)?: Yes Visit Date of Eval: 06/02/25 Session #:: 28 (Pt has not attended Cardiac Rehab since 04/08/25 due to other health issues. Pt plans to return soon.) Cholesterol/Lipids (Other Core Measures) Determine presence & major risk factors that modify LDL goal: Hypertension or hypertensive medication, Low HDL cholesterol <40 mg/dL*, Family history of premature CHD in Male < 55 years: female <65 yearsFa and Age men > 45 years; women >/= 55 years Outcomes/Goals: Pt IDs own risk factors & lifestyle modifications by Session 10, Verbalizes symptoms of angina & response by session 3., Pt independently manages and Other Additional Outcomes/Goals: Intervention/Plan: Advocate for lipid panel cholesterol medication if applicable, Instruct on personal lipid levels & lipid goals/NCEP guidelines, Instruct on cholesterol and Other additional plan/int Referral to dietitian:: Yes (Pt has met with our dietitian. ) 30-day Reassessments:: Met Diabetes (Other Core Measures) Diabetes Type: Diagnosis Type II ICD-10 E11 Weight Mgt (Other Care) Height: 5 ft 4 in Weight:: 230 lb 8 oz BMI: 39.5 Diagnosis Overweight/Obesity BMI> 30% ICD-10 E66: Yes Diagnosis High BMI/Morbid Obesity BMI> 35% ICD-10 Z68: Yes Outcomes/Goals: Pt sets, maintains & shows weight loss goal & trend during rehab and Other additional outcomes/goals Intervention/Plan: Instruct on ideal BMI & set weight loss goal w/patient, Assist pt to ID & incorporate diet changes for weight loss by S9, Refer to Structured Weight Loss program as appropriate, Encourage goal of using 250- 300dcal per session for weight loss and Other additional plan/interventions 30 day Reassessments:: Not Met Healthy Eating Habits Will attend diet classes:: Yes Outcomes/Goals:: Consume diet rich in vegs,fruits,whole grain/high fiber,fish,lean meat, Limit sat/trans fats,cholesterol & added salts & sugars and Other additional outcome/goals: Intervention/Plan:: Assess current eating habits and Other Additional plan/interventions 30-day Reassessments:: Met Education Gave educational materials for:: Signs & symptoms of hypoglycemia, Signs & symptoms of hyperglycemia, Relate diabetes to coronary artery disease and Healthy eating Nutrition - Final Assessment Weight Mgt (Other Care) Height: 5 ft 4 in Weight:: 230 lb 8 oz BMI: 39.5
[2025-06-02 08:51] VITALS: BP 112/68; BMI 39.5
== END 2025-06-12 23:59 ==
LOC: CR 10:14
PROVIDERS: PCP Internal Medicine
DX: Z48.812 Encounter for surgical aftercare following surgery on the circulatory system (principal); Z95.2 Presence of prosthetic heart valve
CPT/HCPCS: 93798

== ENCOUNTER 2025-05-21 11:17 | Emergency (ER) | payer MEDICARE, MEDICAID, SELFPAY ==
[2025-05-06 14:33] VITALS: BMI 39.5
[2025-05-21 11:19] VITALS: BP 122/64; PULSE 69; RESP 16; TEMP 36.8; O2SAT 99
--- NOTE | 2025-05-21 12:28 | EDS_ITS ---
HPI History of Present Illness Chief Complaint: Complaint Narrative Narrative: Patient is a 64-year-old female presenting to the emergency department for frequency, urgency and dysuria. Patient denies fever or chills. She denies any abdominal pain. Denies any nausea or vomiting. States she feels like when she urinates she does not get everything out. She states she is urinating more frequently as well, reports burning with urination. Denies hematuria. Denies vaginal pain, bleeding or discharge. 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) COVID-19 Depression Anxiety Discoloration of skin History of steroid therapy Insulin dependent diabetes mellitus Diabetes Arthritis High cholesterol Pulmonary embolism Easy bruising Excessive bleeding Restless legs Back pain Migraine headache TIA (transient ischemic attack) Non-smoker BiPAP (biphasic positive airway pressure) dependence On home oxygen therapy Shortness of breath on exertion Leg cramps History of pain when walking History of edema History of stress test Hx of transesophageal echocardiography (YOLANDA) for monitoring History of echocardiogram Cardiology follow-up encounter Rotator cuff arthropathy of right shoulder History of DVT (deep vein thrombosis) Back pain with sciatica Nonrheumatic aortic (valve) stenosis Essential hypertension Carotid artery disease Atherosclerotic heart disease of [place] coronary artery without angina pectoris Personal history of anaphylaxis Bilateral carotid bruits Body mass index 45.0-49.9, adult Diastolic heart failure COPD (chronic obstructive pulmonary disease) CHELSEY treated with BiPAP History of pulmonary embolism Morbid obesity Type 2 diabetes mellitus Asthma Home Medications ?Medication ?Instructions ?Recorded ?Last Taken ?Type calcium 600 mg-D3 800 unit-mag 40 1 ea PO DAILY vitami ns 05/27/16 01/18/25 History tq-kqlw-uqrm-angel-boron chew tablet fenofibrate nanocrystallized 145 72.5 mg PO QHS choles terol 04/26/19 01/18/25 History mg tablet trazodone 50 mg tablet 50 mg PO QHS sleep 08/09/19 01/18/25 History epinephrine 0.3 mg/0.3 mL 0.3 mg (0.3 mL) IM X1 PRN Unknown Rx injection, auto-injector Anaphylaxis #1 ea albuterol sulfate 2.5 mg/3 mL 2.5 mg (3 mL) inhalation Q2H PRN 04/24/20 01/19/25 Rx (0.083 %) solution for nebulization PRN dyspnea, wheez ing #180 mL albuterol sulfate 90 mcg/actuation 2 inh inhalation Q4 H PRN PRN Sob 04/24/20 04/11/25 Rx aerosol inhaler &/Or Wheezing #18 grams montelukast 10 mg tablet 10 mg PO DAILY allergies/ast hma 12/07/20 01/19/25 Rx #30 tabs alendronate 70 mg tablet 70 mg PO Passman 12/1101/12/25 History budesonide-formoterol HFA 160 2 puff inhalation BID as thma 03/22/21 01/19/25 History mcg-4.5 mcg/actuation aerosol inhaler ipratropium 0.5 mg-albuterol 3 mg 3 ml inhalation BID asthma 03/22/21 01/18/25 History (2.5 mg base)/3 mL nebulization soln melatonin 10 mg tablet 12 mg PO QHS sleep 04/05/21 01/18/25 History pregabalin 150 mg capsule 150 mg PO TID nerve pain 04/11/25 History meclizine 25 mg tablet 25 mg PO DAILY PRN Vertigo 0 05/04/21 01/18/25 History magnesium 250 mg tablet 400 mg PO DAILY supplement 1 10/17/20 01/19/25 History levocetirizine 5 mg tablet 5 mg PO DAILY allergies 01/18/25 History dapagliflozin propanediol 10 mg 10 mg PO DAILY diabete s 08/11/22 02/24/25 History tablet (Farxiga) multivitamin (Daily Multi-Vitamin 1 tab PO DAILY SUPPL EMENT 06/12/23 01/19/25 History tablet) azelastine 137 mcg-fluticasone 50 2 spray intranasal B ID allergy 08/25/23 01/19/25 History mcg/spray nasal spray cholecalciferol (vitamin D3) 125 125 mcg PO DAILY anabel min-self care 08/25/23 01/19/25 History mcg (5,000 unit) tablet (Vitamin D3) Lactobacillus acidophilus 1 tab PO DAILY Supplement 01/19/25 History (Acidophilus chewable tablet) ondansetron 4 mg disintegrating 4 mg PO DAILY PRN naus ea 09/29/23 Unknown History tablet zinc 100 mg tablet 100 mg PO DAILY supplement 1 11/30/22 01/19/25 History atorvastatin 40 mg tablet 40 mg PO QHS 30 days #30 tab s 09/17/24 01/18/25 Rx topiramate 50 mg tablet 50 mg PO BID 30 days #60 tab s 09/17/24 01/19/25 Rx furosemide 40 mg tablet 40 mg PO .COMPLEX diuresis 1 11/28/23 01/19/25 History ascorbate calcium (vitamin C) 500 1 g PO DAILY vitamin 01/03/25 01/19/25 History mg tablet mecobalamin (vitamin B12) 5,000 5,000 mcg PO QDAY 12/1201/19/25 History mcg chewable tablet oxycodone-acetaminophen 5 mg-325 1 tab PO BID PRN pain 01/03/25 01/19/25 History mg tablet fluoxetine 40 mg capsule 40 mg PO DAILY 01/19/2507/07 History omeprazole 40 mg capsule,delayed 40 mg PO DAILY gerd 0 01/19/25 04/11/25 History release rizatriptan 5 mg tablet 5 mg PO PRN 01/19/25 Unknown History semaglutide 2 mg/dose (8 mg/3 mL) 2 mg subcut QWEEK 02/20/25 History subcutaneous pen injector (Ozempic) warfarin 4 mg tablet 4 mg PO DAILY 01/19/2504/06 History warfarin 5 mg tablet 5 mg PO DAILY 01/19/2504/06 History losartan 25 mg tablet 25 mg PO QDAY #90 tabs 02/0203/01/25 Rx metoprolol tartrate 25 mg tablet 25 mg PO BID #180 tab s 02/02/25 04/11/25 Rx linaclotide 290 mcg capsule 290 mcg PO QAM #90 caps Unknown Rx (Linzess) insulin glargine U-300 conc 300 15 unit subcut BID JOEY BETES 02/24/25 Unknown History unit/mL (1.5 mL) subcutaneous pen (Toujeffrey SoloStar U-300 Insulin) docusate sodium 100 mg capsule 100 mg PO TID stool sof tener 03/22/25 Unknown History peg 3350-electrolytes 236 240 ml PO .COMPLEX #8,000 mL 03/22/25 Unknown Rx gram-22.74 gram-6.74 gram-5.86 gram solution (Golytely) polyethylene glycol 3350 17 17 g PO ONCE #1,530 grams 03/22/25 Unknown Rx gram/dose oral powder (Miralax) tiotropium bromide 18 mcg capsule 18 mcg inhalation DA JAZMIN PRN asthma 03/22/25 Unknown History with inhalation device tizanidine 4 mg capsule 4 mg PO TID PRN muscle spast icity 03/22/25 Unknown History beclomethasone dipropionate 80 1 inh inhalation BID LA N Asthma 03/31/25 Unknown History mcg/actuation HFA breath activated aerosol erenumab-aooe 140 mg/mL 140 mg subcut [id number] PRN 0 03/31/25 Unknown History subcutaneous auto-injector migraine headache (Aimovig Autoinjector) spironolactone 50 mg tablet 25 mg (1/2 x 50 mg) PO BID #30 tabs 03/31/25 Unknown Rx ascorbic acid (vitamin C) 500 mg 0.5 g PO QHS 04/07/25 Unknown History chewable tablet (Acerola C) nitrofurantoin 100 mg PO BID 5 days #10 cap s 05/21/25 Unknown Rx monohydrate/macrocrystals 100 mg capsule (Macrobid) Allergy/AdvReac Type Severity Reaction Status Date / Time clindamycin Allergy Rash Verified 05/21/25 11:22 erythromycin base Allergy Rash Verified 05/21/25 11:22 (Erythromycin Base) omalizumab (From Xolair) Allergy Chest Verified 05/21/25 11:22 tightness Penicillins Allergy Rash Verified 05/21/25 11:22 sulfamethoxazole (From Allergy Chest Verified 05/21/25 11:22 Bactrim) tightness trimethoprim (From Bactrim) Allergy Chest Verified 05/21/25 11:22 tightness Sulfa (Sulfonamide AdvReac Unknown Unknown Verified 05/21/25 11:22 Antibiotics) Family History Father Heart disease Diabetes CAD (coronary artery disease) Mother CAD (coronary artery disease) CVA (cerebral vascular accident) Diabetes Brother CAD (coronary artery disease) CVA (cerebral vascular accident) Diabetes Unknown Cancer Grandmother CVA (cerebral vascular accident) Diabetes Grandfather CVA (cerebral vascular accident) Grandmother Myocardial infarction Brother Diabetes Sister Diabetes Surgical History Status post cardiac pacemaker procedure History of laminectomy History of colonoscopy History of cardiac catheterization Aortic valve replaced History of left heart catheterization (LHC) (~01/19/21) H/O lumbosacral spine surgery History of rotator cuff surgery Hx of appendectomy History of hernia repair History of section History of neck surgery Social History household members: spouse housing: apartment pets and animals: Yes Smoking Status: Never smoker second hand exposure: No alcohol intake: current alcohol intake frequency: a few times a week substance use type: does not use caffeine: No what type of physical activity do you participate in: none do you feel safe at home: Yes ROS ROS ED ROS Narrative see HPI EXAM Physical Exam Narrative Exam Narrative: Vital signs: Reviewed General: Alert and oriented. No acute distress HEENT: Head is normocephalic and atraumatic, sinuses nontender, pupils equal round and reactive. Nares are patent. Oropharynx and throat exams normal. Neck: Supple without lymphadenopathy nontender Cardiovascular: Regular rate and rhythm, no murmurs. No rubs or gallops. Normal S1 and S2 Respiratory: Clear to auscultation bilaterally. No wheezes, rales, rhonchi Abdominal: Soft and nontender. Normal bowel sounds. No guarding or rebound. Nonsurgical abdomen. No CVA tenderness. Extremities: No tenderness. No bruising. Normal range of motion. Normal sensation. Skin: No rash or redness. Neurological: Cranial nerves II through XII are grossly intact. Normal strength and sensation. Normal cerebellar function The rest of the physical exam is unremarkable Const Vital Signs: 05/21/25 11:19 05/21/25 13:42 Temperature 98.3 F 98.9 F Temperature Source Oral Pulse Rate 69 78 Respiratory Rate 16 18 Blood Pressure 122/64 H 120/64 Blood Pressure Mean 83 82 Pulse Ox 99 100 Oxygen Delivery Method Room Air MDM MDM MDM Narrative Medical decision making narrative: Patient is a 64-year-old female presenting to emergency department for urinary symptoms. Patient was seen and examined. Vitals are stable. Patient resting bed comfortably no acute distress. Suspect UTI as a cause of her symptoms. She has no CVA tenderness, no signs of sepsis. Urinalysis with WBCs and leukoesterase. No recent urine culture to base antibiotic choice off of. Prescribed Macrobid for home, she has multiple drug allergies which guided choice. Patient discharged from the Emergency Department. I do not feel that the patient's evaluation reveals any acute reason for admission at this time. I instructed them to either follow-up with their primary care physician or promptly return to the Emergency Department for reevaluation should symptoms worsen or new symptoms develop. I explained what symptoms would indicate the need to return to the emergency department. Shared decision making was used. The patient voiced understanding of the treatment plan and is agreeable with it. History & Record Review Discussion w/independent historian: Patient Lab Data Attestation: I reviewed the patient's lab results. Labs: Laboratory Results - last 24 hr 05/21/25 11:55 Urine Color Yellow Urine Clarity Clear Urine pH 7.0 Ur Specific [place] 1.010 Urine Protein 30 H Urine Glucose (UA) 1000 H
--- NOTE | 2025-05-21 12:28 | EX.ED.DYSGE1 ---
HPI History of Present Illness Chief Complaint: Complaint Narrative Narrative: Patient is a 64-year-old female presenting to the emergency department for frequency, urgency and dysuria. Patient denies fever or chills. She denies any abdominal pain. Denies any nausea or vomiting. States she feels like when she urinates she does not get everything out. She states she is urinating more frequently as well, reports burning with urination. Denies hematuria. Denies vaginal pain, bleeding or discharge. [facility] Medical History Wears glasses MRSA infection Open wound Walker as ambulation aid Gastric reflux History of pacemaker Surgical complete heart block Acute on chronic hypoxic respiratory failure COPD exacerbation Acute CVA (cerebrovascular accident) Obesity (BMI 30-39.9) Rectal bleeding Subtherapeutic international normalized ratio (INR) Peripheral neuropathy Positive FIT (fecal immunochemical test) History of transcatheter aortic valve replacement (TAVR) (~04/19/21) COVID-19 Depression Anxiety Discoloration of skin History of steroid therapy Insulin dependent diabetes mellitus Diabetes Arthritis High cholesterol Pulmonary embolism Easy bruising Excessive bleeding Restless legs Back pain Migraine headache TIA (transient ischemic attack) Non-smoker BiPAP (biphasic positive airway pressure) dependence On home oxygen therapy Shortness of breath on exertion Leg cramps History of pain when walking History of edema History of stress test Hx of transesophageal echocardiography (YOLANDA) for monitoring History of echocardiogram Cardiology follow-up encounter Rotator cuff arthropathy of right shoulder History of DVT (deep vein thrombosis) Back pain with sciatica Nonrheumatic aortic (valve) stenosis Essential hypertension Carotid artery disease Atherosclerotic heart disease of [place] coronary artery without angina pectoris Personal history of anaphylaxis Bilateral carotid bruits Body mass index 45.0-49.9, adult Diastolic heart failure COPD (chronic obstructive pulmonary disease) CHELSEY treated with BiPAP History of pulmonary embolism Morbid obesity Type 2 diabetes mellitus Asthma Home Medications ?Medication ?Instructions ?Recorded ?Last Taken ?Type calcium 600 mg-D3 800 unit-mag 40 1 ea PO DAILY vitamins 05/27/16 01/18/25 History kl-[id number]-ciwg-angel-boron chew tablet fenofibrate nanocrystallized 145 72.5 mg PO QHS cholesterol 04/26/19 01/18/25 History mg tablet trazodone 50 mg tablet 50 mg PO QHS sleep 08/09/19 01/18/25 History epinephrine 0.3 mg/0.3 mL 0.3 mg (0.3 mL) IM X1 PRN 01/18/20 Unknown Rx injection, auto-injector Anaphylaxis #1 ea albuterol sulfate 2.5 mg/3 mL 2.5 mg (3 mL) inhalation Q2H PRN 04/24/20 01/19/25 Rx (0.083 %) solution for nebulization PRN dyspnea, wheezing #180 mL albuterol sulfate 90 mcg/actuation 2 inh inhalation Q4H PRN PRN Sob 04/24/20 04/11/25 Rx aerosol inhaler &/Or Wheezing #18 grams montelukast 10 mg tablet 10 mg PO DAILY allergies/asthma 12/07/20 01/19/25 Rx #30 tabs alendronate 70 mg tablet 70 mg PO WE bone health 12/21/20 01/12/25 History budesonide-formoterol HFA 160 2 puff inhalation BID asthma 03/22/21 01/19/25 History mcg-4.5 mcg/actuation aerosol inhaler ipratropium 0.5 mg-albuterol 3 mg 3 ml inhalation BID asthma 03/22/21 01/18/25 History (2.5 mg base)/3 mL nebulization soln melatonin 10 mg tablet 12 mg PO QHS sleep 04/05/21 01/18/25 History pregabalin 150 mg capsule 150 mg PO TID nerve pain 04/05/21 04/11/25 History meclizine 25 mg tablet 25 mg PO DAILY PRN Vertigo 05/04/21 01/18/25 History magnesium 250 mg tablet 400 mg PO DAILY supplement 08/17/21 01/19/25 History levocetirizine 5 mg tablet 5 mg PO DAILY allergies 11/07/21 01/18/25 History dapagliflozin propanediol 10 mg 10 mg PO DAILY diabetes 08/11/22 02/24/25 History tablet (Farxiga) multivitamin (Daily Multi-Vitamin 1 tab PO DAILY SUPPLEMENT 06/12/23 01/19/25 History tablet) azelastine 137 mcg-fluticasone 50 2 spray intranasal BID allergy 08/25/23 01/19/25 History mcg/spray nasal spray cholecalciferol (vitamin D3) 125 125 mcg PO DAILY vitamin-self care 08/25/23 01/19/25 History mcg (5,000 unit) tablet (Vitamin D3) Lactobacillus acidophilus 1 tab PO DAILY Supplement 09/29/23 01/19/25 History (Acidophilus chewable tablet) ondansetron 4 mg disintegrating 4 mg PO DAILY PRN nausea 09/29/23 Unknown History tablet zinc 100 mg tablet 100 mg PO DAILY supplement 09/29/23 01/19/25 History atorvastatin 40 mg tablet 40 mg PO QHS 30 days #30 tabs 09/17/24 01/18/25 Rx topiramate 50 mg tablet 50 mg PO BID 30 days #60 tabs 09/17/24 01/19/25 Rx furosemide 40 mg tablet 40 mg PO .COMPLEX diuresis 09/27/24 01/19/25 History ascorbate calcium (vitamin C) 500 1 g PO DAILY vitamin 01/03/25 01/19/25 History mg tablet mecobalamin (vitamin B12) 5,000 5,000 mcg PO QDAY 01/03/25 01/19/25 History mcg chewable tablet oxycodone-acetaminophen 5 mg-325 1 tab PO BID PRN pain 01/03/25 01/19/25 History mg tablet fluoxetine 40 mg capsule 40 mg PO DAILY 01/19/25 01/19/25 History omeprazole 40 mg capsule,delayed 40 mg PO DAILY gerd 01/19/25 04/11/25 History release rizatriptan 5 mg tablet 5 mg PO PRN 01/19/25 Unknown History semaglutide 2 mg/dose (8 mg/3 mL) 2 mg subcut QWEEK 01/19/25 02/20/25 History subcutaneous pen injector (Ozempic) warfarin 4 mg tablet 4 mg PO DAILY 01/19/25 04/06/25 History warfarin 5 mg tablet 5 mg PO DAILY 01/19/25 04/06/25 History losartan 25 mg tablet 25 mg PO QDAY #90 tabs 02/02/25 03/01/25 Rx metoprolol tartrate 25 mg tablet 25 mg PO BID #180 tabs 02/02/25 04/11/25 Rx linaclotide 290 mcg capsule 290 mcg PO QAM #90 caps 02/22/25 Unknown Rx (Linzess) insulin glargine U-300 conc 300 15 unit subcut BID DIABETES 02/24/25 Unknown History unit/mL (1.5 mL) subcutaneous pen (Toujeo SoloStar U-300 Insulin) docusate sodium 100 mg capsule 100 mg PO TID stool softener 03/22/25 Unknown History peg 3350-electrolytes 236 240 ml PO .COMPLEX #8,000 mL 03/22/25 Unknown Rx gram-22.74 gram-6.74 gram-5.86 gram solution (Golytely) polyethylene glycol 3350 17 17 g PO ONCE #1,530 grams 03/22/25 Unknown Rx gram/dose oral powder (Miralax) tiotropium bromide 18 mcg capsule 18 mcg inhalation DAILY PRN asthma 03/22/25 Unknown History with inhalation device tizanidine 4 mg capsule 4 mg PO TID PRN muscle spasticity 03/22/25 Unknown History beclomethasone dipropionate 80 1 inh inhalation BID PRN Asthma 03/31/25 Unknown History mcg/actuation HFA breath activated aerosol erenumab-aooe 140 mg/mL 140 mg subcut [id number] PRN 03/31/25 Unknown History subcutaneous auto-injector migraine headache (Aimovig Autoinjector) spironolactone 50 mg tablet 25 mg (1/2 x 50 mg) PO BID #30 tabs 03/31/25 Unknown Rx ascorbic acid (vitamin C) 500 mg 0.5 g PO QHS 04/07/25 Unknown History chewable tablet (Acerola C) nitrofurantoin 100 mg PO BID 5 days #10 caps 05/21/25 Unknown Rx monohydrate/macrocrystals 100 mg capsule (Macrobid) Allergy/AdvReac Type Severity Reaction Status Date / Time clindamycin Allergy Rash Verified 05/21/25 11:22 erythromycin base Allergy Rash Verified 05/21/25 11:22 (Erythromycin Base) omalizumab (From Xolair) Allergy Chest Verified 05/21/25 11:22 tightness Penicillins Allergy Rash Verified 05/21/25 11:22 sulfamethoxazole (From Allergy Chest Verified 05/21/25 11:22 Bactrim) tightness trimethoprim (From Bactrim) Allergy Chest Verified 05/21/25 11:22 tightness Sulfa (Sulfonamide AdvReac Unknown Unknown Verified 05/21/25 11:22 Antibiotics) Family History Father Heart disease Diabetes CAD (coronary artery disease) Mother CAD (coronary artery disease) CVA (cerebral vascular accident) Diabetes Brother CAD (coronary artery disease) CVA (cerebral vascular accident) Diabetes Unknown Cancer Grandmother CVA (cerebral vascular accident) Diabetes Grandfather CVA (cerebral vascular accident) Grandmother Myocardial infarction Brother Diabetes Sister Diabetes Surgical History Status post cardiac pacemaker procedure History of laminectomy History of colonoscopy History of cardiac catheterization Aortic valve replaced History of left heart catheterization (LHC) (~01/19/21) H/O lumbosacral spine surgery History of rotator cuff surgery Hx of appendectomy History of hernia repair History of section History of neck surgery Social History household members: spouse housing: apartment pets and animals: Yes Smoking Status: Never smoker second hand exposure: No alcohol intake: current alcohol intake frequency: a few times a week substance use type: does not use caffeine: No what type of physical activity do you participate in: none do you feel safe at home: Yes ROS ROS ED ROS Narrative see HPI EXAM Physical Exam Narrative Exam Narrative: Vital signs: Reviewed General: Alert and oriented. No acute distress HEENT: Head is normocephalic and atraumatic, sinuses nontender, pupils equal round and reactive. Nares are patent. Oropharynx and throat exams normal. Neck: Supple without lymphadenopathy nontender Cardiovascular: Regular rate and rhythm, no murmurs. No rubs or gallops. Normal S1 and S2 Respiratory: Clear to auscultation bilaterally. No wheezes, rales, rhonchi Abdominal: Soft and nontender. Normal bowel sounds. No guarding or rebound. Nonsurgical abdomen. No CVA tenderness. Extremities: No tenderness. No bruising. Normal range of motion. Normal sensation. Skin: No rash or redness. Neurological: Cranial nerves II through XII are grossly intact. Normal strength and sensation. Normal cerebellar function The rest of the physical exam is unremarkable Const Vital Signs: 05/21/25 11:19 05/21/25 13:42 Temperature 98.3 F 98.9 F Temperature Source Oral Pulse Rate 69 78 Respiratory Rate 16 18 Blood Pressure 122/64 H 120/64 Blood Pressure Mean 83 82 Pulse Ox 99 100 Oxygen Delivery Method Room Air MDM MDM MDM Narrative Medical decision making narrative: Patient is a 64-year-old female presenting to emergency department for urinary symptoms. Patient was seen and examined. Vitals are stable. Patient resting bed comfortably no acute distress. Suspect UTI as a cause of her symptoms. She has no CVA tenderness, no signs of sepsis. Urinalysis with WBCs and leukoesterase. No recent urine culture to base antibiotic choice off of. Prescribed Macrobid for home, she has multiple drug allergies which guided choice. Patient discharged from the Emergency Department. I do not feel that the patient's evaluation reveals any acute reason for admission at this time. I instructed them to either follow-up with their primary care physician or promptly return to the Emergency Department for reevaluation should symptoms worsen or new symptoms develop. I explained what symptoms would indicate the need to return to the emergency department. Shared decision making was used. The patient voiced understanding of the treatment plan and is agreeable with it. History & Record Review Discussion w/independent historian: Patient Lab Data Attestation: I reviewed the patient's lab results. Labs: Laboratory Results - last 24 hr 05/21/25 11:55 Urine Color Yellow Urine Clarity Clear Urine pH 7.0 Ur Specific [place] 1.010 Urine Protein 30 H Urine Glucose (UA) 1000 H Urine Ketones Negative Urine Occult Blood 10 H Urine Nitrite Negative Urine Bilirubin Negative Urine Urobilinogen Normal Ur Leukocyte Esterase 500 H Urine RBC 0-5 SEEN Urine WBC 10-25 SEEN Ur Squamous Epith Cells 0-5 SEEN Urine Bacteria 0 SEEN Urine Mucus 0 SEEN Discharge Plan Triage Chief Complaint: Complaint ED Provider: Brittany Almaguer Dx/Rx/DC Orders Clinical Impression: Acute UTI Instructions: ED Cystitis Female Adult Prescriptions: New nitrofurantoin monohyd/m-cryst [Macrobid] 100 mg capsule 100 mg PO BID 5 Days Qty: 10 0RF Rx Instructions: must administer with a meal/food No Action trazodone 50 mg tablet 50 mg PO QHS albuterol sulfate 2.5 mg /3 mL (0.083 %) solution for nebulization 2.5 mg INHALATION Q2H PRN PRN (Reason: dyspnea, wheezing) Qty: 180 6RF albuterol sulfate 90 mcg/actuation HFA aerosol inhaler 2 inh INHALATION Q4H PRN PRN (Reason: Sob &/Or Wheezing) Qty: 18 6RF montelukast 10 mg tablet 10 mg PO DAILY Qty: 30 6RF alendronate 70 mg tablet 70 mg PO WE meclizine 25 mg tablet 25 mg PO DAILY PRN (Reason: Vertigo) magnesium 250 mg tablet 400 mg PO DAILY levocetirizine 5 mg tablet 5 mg PO DAILY ascorbate calcium (vitamin C) 500 mg tablet 1 g PO DAILY mecobalamin (vitamin B12) 5,000 mcg tablet,chewable 5,000 mcg PO QDAY tizanidine 4 mg capsule 4 mg PO TID PRN (Reason: muscle spasticity) polyethylene glycol 3350 [Miralax] 17 gram/dose powder 17 g PO ONCE Qty: 1530 1RF peg 3350-electrolytes [Golytely] 236-22.74-6.74 -5.86 gram recon soln 240 ml PO .COMPLEX Qty: 8000 0RF Rx Instructions: 480 mL orally; as directed for two day split dose bowel prep spironolactone 50 mg tablet 25 mg PO BID Qty: 30 11RF Rx Instructions: Take at evening meal with Losartan losartan 25 mg tablet 25 mg PO QDAY Qty: 90 3RF metoprolol tartrate 25 mg tablet 25 mg PO BID Qty: 180 3RF docusate sodium 100 mg capsule 100 mg PO TID Patient Comments: Stool softner [id number]-mxmb-rjo-txui-boron 1 EACH tablet,chewable 1 ea PO DAILY fenofibrate nanocrystallized 145 MG tablet 72.5 mg PO QHS ipratropium-albuterol 0.5 mg-3 mg(2.5 mg base)/3 mL solution for nebulization 3 ml INHALATION BID Rx Instructions: Continue until re-evaluation per pulmonary with possible transition back to home regimen at that time. budesonide-formoterol 160-4.5 mcg/actuation HFA aerosol inhaler 2 puff INHALATION BID furosemide 40 mg tablet 40 mg PO .COMPLEX Rx Instructions: 40 mg orally BID MOWEFR; take on Friday, Friday, Friday beclomethasone dipropionate 80 mcg/actuation HFA aerosol breath activated 1 inh inhalation BID PRN (Reason: Asthma) pregabalin 150 mg capsule 150 mg PO TID melatonin 10 mg Tablet 12 mg PO QHS dapagliflozin propanediol [Farxiga] 10 mg tablet 10 mg PO DAILY multivitamin [Daily Multi-Vitamin] Tablet 1 tab PO DAILY tiotropium bromide 18 mcg capsule, w/inhalation device 18 mcg inhalation DAILY PRN (Reason: asthma) Rx Instructions: puncture 1 cap using device; one dose = 2 inhalations cholecalciferol (vitamin D3) [Vitamin D3] 125 mcg (5,000 unit) tablet 125 mcg PO DAILY azelastine-fluticasone 137-50 mcg/spray spray,non-aerosol 2 spray intranasal BID Rx Instructions: administer into each nostril ondansetron 4 mg tablet,disintegrating 4 mg PO DAILY PRN (Reason: nausea) Acidophilus Tablet,Chewable 1 tab PO DAILY Patient Comments: 175 mg tab zinc 100 mg tablet 100 mg PO DAILY oxycodone-acetaminophen 5-325 mg tablet 1 tab PO BID PRN (Reason: pain) ascorbic acid (vitamin C) [Acerola C] 500 mg tablet,chewable 0.5 g PO QHS topiramate 50 mg Tablet 50 mg PO BID 30 Days Qty: 60 0RF atorvastatin 40 mg Tablet 40 mg PO QHS 30 Days Qty: 30 0RF insulin glargine U-300 conc [Toujeo SoloStar U-300 Insulin] 300 unit/mL (1.5 mL) insulin pen 15 unit SUBCUT BID Patient Comments: INJECT 50 UNITSESUBCUTANEOUSLY DAILY ADJUSTS BASED ON BLOOD GLUCOSE Rx Instructions: TOUJEO fluoxetine 40 mg capsule 40 mg PO DAILY warfarin 4 mg tablet 4 mg PO DAILY Patient Comments: HOLDING FOR COLONOSCOPY Rx Instructions: WITH 5MG TAB rizatriptan 5 mg tablet 5 mg PO PRN Ozempic 2 mg/dose (8 mg/3 mL) pen injector 2 mg subcut QWEEK warfarin 5 mg tablet 5 mg PO DAILY Patient Comments: HOLDING FOR COLONOSCOPY Rx Instructions: WITH 4MG TAB omeprazole 40 mg capsule,delayed release(DR/EC) 40 mg PO DAILY Aimovig Autoinjector 140 mg/mL auto-injector 140 mg SUBCUT [id number] PRN (Reason: migraine headache) epinephrine 0.3 mg/0.3 mL auto-injector 0.3 mg IM X1 PRN (Reason: Anaphylaxis) Qty: 1 0RF Linzess 290 mcg capsule 290 mcg PO QAM Qty: 90 3RF Rx Instructions: take once daily 30 minutes before first meal Primary Care Provider: Ophelia Soria Referrals: Ophelia Soria, [Primary Care Provider] - 3-5 Days Activity Restrictions/Additional Instructions: Your evaluation in the Emergency Department did not reveal any acute reason for admission. However, I want to emphasize that you may be early in the course of a disease process or illness even if it is not present. For this reason you should follow-up within 24 hours for reevaluation with either your primary care physician or if necessary back here in the Emergency Department. You should return to the Emergency Department immediately if your symptoms worsen or new symptoms develop. Please take the antibiotic twice a day for 5 days. Please follow-up with your primary care doctor soon as possible and return to the ED with any new or worsening symptoms. Print Language: Eritrean Disposition Disposition: Home, Self Care Discharge Date/Time: 05/21/25 13:43
[2025-05-21 12:38] LABS: Mucous, Urine 0 SEEN /hpf (<or=2+)
[2025-05-21 12:43] LABS: Color, Urine Yellow (Yellow); Glucose, Dipstick 1000 mg/dl (Normal); Ketone-Dipstick Negative (Negative); Leukocyte Esterase-Dipstick 500 /ul (Negative); Nitrite-Dipstick Negative (Negative); Occult Blood-Urine 10 /ul (Negative); Protein-Dipstick 30 mg/dl (Negative); Specific Gravity, Urine 1.010 (1.002-1.030); Urine Bilirubin Dipstick Negative (Negative)
[2025-05-21 12:55] LABS: Red Blood Cells-Urine 0-5 SEEN /hpf (0-5); Squamous Epithelial Cells - UA 0-5 SEEN /hpf (5-10)
[2025-05-21 13:42] VITALS: BP 120/64; PULSE 78; RESP 18; TEMP 37.2; O2SAT 100
== END 2025-05-21 13:43 | disposition home or self-care (01) ==
PROVIDERS: Emergency Provider Student in an Organized Health Care Education/Training Program; PCP Internal Medicine; Visit Provider Student in an Organized Health Care Education/Training Program
DX: N39.0 Urinary tract infection, site not specified (principal); I11.0 Hypertensive heart disease with heart failure; I50.32 Chronic diastolic (congestive) heart failure; J44.9 Chronic obstructive pulmonary disease, unspecified; E11.42 Type 2 diabetes mellitus with diabetic polyneuropathy; I25.10 Atherosclerotic heart disease of native coronary artery without angina pectoris; G47.33 Obstructive sleep apnea (adult) (pediatric); Z86.711 Personal history of pulmonary embolism; Z86.718 Personal history of other venous thrombosis and embolism; Z86.16 Personal history of COVID-19; Z86.73 Personal history of transient ischemic attack (TIA), and cerebral infarction without residual deficits
CPT/HCPCS: 81001; 87086; 87088; 99282

== ENCOUNTER 2025-06-15 07:48 | Outpatient (CLI) | payer MEDICARE, MEDICAID, SELFPAY ==
[2025-03-13 00:32] VITALS: BMI 39.6
[2025-04-07 10:59] VITALS: BMI 39.5
[2025-05-06 14:33] VITALS: BMI 39.5
[2025-06-15] VITALS (14 sets, daily range): BP systolic 80–154; BP diastolic 34–92; PULSE 72–77; RESP 12–18; TEMP 37.2; O2SAT 92–97; BMI 39.8
--- NOTE | 2025-06-15 08:01 | CT_ITS ---
EXAM: CT-guided core biopsy of the right peritoneal fatty mass. CLINICAL HISTORY: Persistent fatty mass in the right peritoneum. COMPARISON: Prior CT scan dated March 08, 2025. TECHNIQUE: The procedure as well as the benefits and possible complications including infection and bleeding were explained to the patient. Informed consent was obtained. Conscious sedation was performed. The patient received 2 mg of Versed and 50 mcg of fentanyl intravenously. Conscious sedation was started at 9:50 a.m. and terminated at 9:38 a.m.. The patient was independently monitored by the department nurse. The overlying skin was prepped and draped in the usual sterile fashion. The patient was in the supine position. Following local anesthetic application, an 18 gauge core biopsy needle system was placed into the right peritoneal fatty mass. 4 core biopsies were performed. The specimen was sent to the laboratory for analysis. The patient tolerated the procedure well. No immediate complication noted. Dose report: CTDI L volume: 30.87. DLP: 2500.58 FINDINGS: Successful CT-guided biopsy of the fatty right peritoneal mass. CT/Biopsy/Inj or Needle Placement IMPRESSION: Successful CT-guided biopsy of the fatty right peritoneal mass. The patient tolerated the procedure well. Reading Location: [place] [id number]
[2025-06-15 08:18] LABS: Hematocrit 43.5 % (37-47); Hemoglobin 14.4 g/dL (12.0-15.0); Immature Granulocytes Count 0.030 X10^3/uL (0.0-0.0); Mean Corp Hgb Conc 33.1 g/dL (32-36); Mean Corpuscular Volume 89.3 fL (81-99); Mean Platelet Vol. 10.4 fl (6.2-12.0); NRBC Flagged by Analyzer 0 % (0-5); Platelet Count 227 K/mm3 (150-450); RBC Distribution Width CV 14.8 % (11.6-14.6); RBC Distribution Width SD 48.1 fl (35.1-43.9); Red Blood Count 4.87 M/mm3 (4.2-5.4); White Blood Count 5.4 K/mm3 (4.4-11.0)
[2025-06-15 08:24] LABS: Partial Thromboplast Time 29.1 Seconds (24.1-36.2); Prothrombin Time (Protime)PT. 14.8 SECONDS (11.7-14.9)
[2025-06-15] MEDS: 0.9% Normal Saline (250mL Bag) 250 ML 15 ML IV (09:14)
[2025-06-15] MEDS: Midazolam 2 MG/2 ML Syringe IV ×2 (09:15→09:30)
[2025-06-15] MEDS: fentaNYL 100 MCG/2 ML Ampul IV (09:17)
[2025-06-15] MEDS: Lidocaine 2% (20 ml mdv) 20 ML Vial INFILT (09:32)
--- NOTE | 2025-06-15 09:40 | TISS_PTH ---
PATIENT: NATHALIE HERMAN LOC: [place] U#:[id number] AGE/SX: 64/F ROOM: RE06/15/[address]: ADAM Greer : 1960 BED: DIS: 06/15/2025 SPEC #: [id number] RECD: 06/15/25 09:50 STATUS: KAMINI RELeslee #: [id number] LINN: 06/15/25 09:[address]: Yamile Maya DEPT: SURGICAL PATHOLOGY RECD BY: Jaime Schmidt ENTERED: 06/15/25 10:08 SP TYPE: Tissue Bx MARLYN DR: Dr. Ophelia Soria, Tissues: A - Abdomen, NOS Procedures: Special Stain Group II Surgery Specimen Level IV Diff Quik Stain (control) Cytology Other HEADER OPERATION: CT guided biopsy PRE-OP DIAGNOSIS: Right pericolic gutter density TISSUE SUBMITTED: A- Biopsy, 18 gauge x 4 cores MICROSCOPIC DIAGNOSIS A. Right pericolic gutter, CT-guided core biopsy: - Fibroadipose tissue with chronic inflammation and scattered hemosiderin. - No evidence of neoplasia observed in these sections. MICROSCOPIC DESCRIPTION Slides are reviewed. GROSS DESCRIPTION A. Received in formalin labeled the patient's name and date of are 2 day tissue core fragments, 0.3 cm and 1.5 cm in length by 0.1 cm in diameter. Touch preparations are made. Entirely submitted in 2 cassettes as follows: A1: Longer tissue coreA2: [place] tissue core [place] 06/15/2025 CPT:93793
== END 2025-06-15 23:59 | disposition home or self-care (01) ==
LOC: CT 07:48
PROVIDERS: Radiology Diagnostic Radiology; PCP Internal Medicine; Referring Provider Nurse Practitioner Acute Care; Visit Provider Nurse Practitioner Acute Care
DX: R19.09 Other intra-abdominal and pelvic swelling, mass and lump (principal)
CPT/HCPCS: 49180; 36415; 77012; 85025; 85610; 85730; 88161; 88305; 88313; 99156

== ENCOUNTER → 2025-06-29 | Outpatient (CLI) | payer MEDICARE, MEDICAID, SELFPAY ==
[2025-05-06 14:33] VITALS: BMI 39.5
[2025-06-02 08:51] VITALS: BMI 39.5
--- NOTE | 2025-06-29 09:50 | BD_ITS ---
PROCEDURE: DEXA BONE DENSITY STUDY 06/29/2025 REASON FOR EXAM: F, age 64 y/o . Postmenopausal. TECHNIQUE: Procedure Code: BDDBD Modality: DX Procedure: DEXA BONE DENSITY STUDY COMPARISON: November 21, 2022 FINDINGS: BMD and T-SCORES Lumbar spine: 0.968 g/cm2, T-score -1.2 Levels: L1 through L4 Change from prior: Loss of 14.4%. Left femoral neck: 0.681 g/cm2, T-score -1.5 Femoral neck comparison data not recommended for monitoring change. Left total hip: 0.863 g/cm2, T-score -0.7 Change from prior: Loss of 12.1%. Right femoral neck: 0.553 g/cm2, T-score -2.7 Femoral neck comparison data not recommended for monitoring change. Right total hip: 0.683 g/cm2, T-score -2.1 Change from prior: Loss of 15.8%. The World Health Organization has defined the following categories based on bone density: Normal bone density: T-score equal to or greater than -1.0 Osteopenia: T-score between -1.0 and -2.5 Osteoporosis: T-score equal to or less than -2.5 FRAX (or Comparable) Fracture Risk Assessment: 10 Year Probability of Fracture: Major Osteoporotic Fracture: 18% Hip Fracture: 4.2% (Note: FRAX is not to be reported in setting of normal range bone density, osteoporosis on DEXA, known history of osteoporosis, prior osteoporotic hip or vertebral fracture, or for any patient undergoing pharmacological treatment for bone loss.) The National Osteoporosis Foundation (NOF) recommends pharmacological treatment for patients with a FRAX 10-year risk of 3% or higher for a hip fracture, or 20% or higher for a major osteoporotic fracture, to prevent osteoporosis and reduce fracture risk. The patient does meet the pharmacological treatment recommendations for prevention of osteoporosis. BD/Dexa Bone Density Study IMPRESSION: OSTEOPOROSIS. Recommend follow-up as clinically warranted. Reading Location: [place] [address]
--- NOTE | 2025-06-29 10:30 | BI_ITS ---
EXAM: SCRN MAMM (CAD)W/DORIS BILAT DATE: 06/29/2025 CLINICAL HISTORY: F, Age 64 y/o , SCREENING No family history. TECHNIQUE: Procedure Code: [id number] Modality: MG Procedure: SCRN MAMM (CAD)W/DORIS BILAT COMPARISON: Prior exam(s) dated April 26, 2024.. FINDINGS: TISSUE DENSITY: The breasts are almost entirely fatty. Bilateral Breast Mammographic Findings: No significant masses, calcifications or other abnormalities are identified. Stable bilateral secretory calcifications. No suspicious masses, areas of developing architectural distortion, or suspicious calcifications. There has been no significant interval change. BI/SCRN MAMM (CAD)W/DORIS BILAT IMPRESSION: Stable bilateral screening mammogram. OVERALL FINAL ASSESSMENT BI-RADS 2: BENIGN RECOMMENDATION: Routine annual follow-up in 1 Year A letter with findings and recommendations will be mailed to the patient. Reading Location: [place] [address]
== END | disposition home or self-care (01) ==
LOC: OPBD 09:43
PROVIDERS: PCP Internal Medicine; Referring Provider Internal Medicine; Visit Provider Internal Medicine
DX: Z13.820 Encounter for screening for osteoporosis (principal); Z78.0 Asymptomatic menopausal state; Z12.31 Encounter for screening mammogram for malignant neoplasm of breast
CPT/HCPCS: 77063; 77067; 77080

== ENCOUNTER 2025-07-05 15:16 | Outpatient (RCR) | payer MEDICARE, MEDICAID, SELFPAY ==
[2025-04-07 10:59] VITALS: BMI 39.5
[2025-06-30 12:33] VITALS: BMI 39.9
[2025-07-05 16:22] LABS: Prothrombin Time (Protime)PT. 13.3 SECONDS (11.7-14.9)
== END 2025-07-12 18:00 | disposition home or self-care (01) ==
LOC: LAB 15:16
PROVIDERS: PCP Internal Medicine; Referring Provider Internal Medicine; Visit Provider Internal Medicine
DX: I82.409 Acute embolism and thrombosis of unspecified deep veins of unspecified lower extremity (principal)
CPT/HCPCS: 36415; 85610

== ENCOUNTER 2025-07-08 02:15 | Outpatient (RCR) | payer MEDICARE, MEDICAID, SELFPAY ==
[2025-05-31 10:10] VITALS: BMI 39.5
--- NOTE | 2025-06-30 12:22 | CR.ITP_ITS ---
Exercise - Initial Assessment Physician Prescribed Exercise Modalities: SciFit Stepper and StadionautFit Pro-II Ergometer Nutrition - Initial Assessment Weight Mgt (Other Care) Height: 5 ft 4 in Weight:: 233 lb BMI: 39.9 BMI (Report if calculated above): 39 Core - Initial Assessment Hypertension Resting Blood Pressure:: 112/64 Citizen Of The [place] Heart Association Hypertension Guidelines Psychosocial - Initial Assess Psychosocial Test phq-9 Severity See PHQ-9 Score: 8 Referral to Behavioral Health PS - Interventions: Yes: Attend Stress Management Classes Patient Health Questionnaire PHQ-9 Screening Discharge Assessment: 1. Little interest or pleasure in doing things: Several days 2. Feeling down, depressed, or hopeless: Not at all 3. Trouble falling or staying asleep, or sleeping too much: Nearly every day 4. Feeling tired or having little energy: More than half the days 5. Poor appetite or overeating: More than half the days 6. Feeling bad about yourself -- or that you are a failure or have let yourself or your family down: Not at all 7. Trouble concentrating on things, such as reading the newspaper or watching television: Not at all 8. Moving or speaking so slowly that other people could have noticed. Or the opposite - being so fidgety or restless that you have been moving around a lot more than usual: Not at all 9. Thoughts that you would be better off , or of hurting yourself in some way: Not at all How difficult have these problems made it for you to do your work, take care of things at home, or get along with other people?: Very difficult Total Score: 8 Self-Efficacy 6-Item Scale Discharge Assessment: We would like to know how confident you are in doing certain activities. Please select your confidence level for: Fatigue Select Number: 3 Physical Discomfort or Pain Select Number: 2 Emotional Distress Select Number: 3 Other Symptoms or Health Problems Select Number: 3 Different Tasks and Activities Select Number: 3 Medication Select Number: 6 Total Score:: 3 Nutrition Survey Nutrition Survey Discharge: Have you lost >10 lbs over the past 2 months without trying?: No Are you following a special diet at home for diabetes, low fat, or low salt?: Yes Are you interested in meeting with a dietitian for help understanding your diet?: No Do you eat less than 3 meals a day?: No Do you eat fatty meats ([place], sausage, ribs, etc), fried foods, desserts, large amounts of salad dressings, margarine, butter, or cheese most days?: Yes Do you have food allergies? [Enter types in comment field]: No Do you eat in restaurants more than 3 times a week?: No Do you season food with salt, seasoning salt, or garlic salt?: Yes Do you used canned, boxed, frozen meals, or soups, seasoning packets?: Yes Total Score:: 4 Exercise - 30-day Assessment Physician Prescribed Exercise Modalities: SciFit Stepper and SciFit Pro-II Ergometer Exercise - 60-day Assessment Physician Prescribed Exercise Modalities: SciFit Stepper and SciFit Pro-II Ergometer Exercise - 90-day Assessment Physician Prescribed Exercise Modalities: SciFit Stepper and SciFit Pro-II Ergometer Exercise - Final/Discharge Visit Date of Eval: 06/30/25 Session #:: 33 Physician Prescribed Exercise Modalities: SciFit Stepper and SciFit Pro-II Ergometer Frequency: 3x/week for 12 weeks [36 sessions] Intensity: 60-80% of age predicted maximum heart rate reserve Duration: 30 - 45 minutes METs - Progression 0.5-1.0 weekly:: 0.5+1.0 Current METSs:: 4.2 Target Heart Rate:: 93-116 Target RPE 12-16:: 12-16 Current RPE:: 13 Maximum Heart Rate:: 99 Resting Blood Pressure: 140/72 Maximum Exercise Blood Pressure: 140/70 EKG Type: Ventricular paced rhythm with rare pvc/pac t wave inversion Current Physical Activity or Exercising minutes: 30-45 Outcomes & Goals Goals:: Verbalizes understanding of THR, RPE & goal METS by session 6, Documents in home exercise log/reports 30 min aerobic 5 day/wk by DC and Demonstrates accurate pulse taking by DC Intervention & Plan Exercise Program Goals: Instruct on personal THR & RPE, Instruct on MET level & personal MET goal, Show patient to take own pulse /validate performance until accurate and Instruct on home exercise 30-day Reassessments 30 day Reassessments:: Met Physical Activity Home Exercise Physical Activity - Home Exercise: Safe Exercise, Warm-up, Self-monitoring, Cool-Down, Home Exercise > 30 min Daily and Sitting Time <3 hours/daily Outcomes & Goals Outcomes/Goals: Demonstrates correct Warm-up/exercise Cool-Down (S3) if = 2.5 METs, Verbalizes symptoms of exercise intolerance by Session 3 (S3) and Demonstrate safe equipment use (S3) & follows exercise prescrition (6) Intervention & Plan Plan/Intervention: Instruct warm-up & cool-down if exercising at > 2 METs, Instruct on symptoms of exercise intolerance & actions to take, Instruct & monitor on saf and Assess intial functional capacity & safety risk 30-day Reassessments 30 day Reassessments:: Met Nutrition - 30-Day Assessment Weight Mgt (Other Care) Height: 5 ft 4 in Weight:: 233 lb BMI: 39.9 BMI (Report if calculated above): 39 Nutrition - 60-Day Assessment Weight Mgt (Other Care) Height: 5 ft 4 in Weight:: 233 lb BMI: 39.9 BMI (Report if calculated above): 39 Core - Final Assessment Visit Date of Eval: 06/30/25 Session #:: 33 Medication Compliance Preventative Medication(s):: Statin/lipid, Beta jake, Warfarin/Coumadin and ARB (Angiotensi Rcap) H/O mental health issues: depression, anxiety, or addiction?: No Doesn?t believe in the benefits of treatment?: No Believes medications are unnecessary or harmful?: No Has a concern about medication side effects?: No Expresses concern over the cost of medications?: No Outcomes/Goals: Verbalizes medications,desired effect & common side effects @ DC, Pt self-reports following medication regimen and Keeps card in wallet w/medications listed by DC Interventions/plans: Instruct on medication effects & side effects, Review medication list w/patient every two weeks and Instruct importance of taking meds as ordered & assist problem solving 30-day Reassessments:: Met Tobacco Use Tobacco Use: Non-smoker Hypertension Hypertension Diagnosis:: Hypertension ICD-10 I10 Resting Blood Pressure:: 112/64 Citizen Of [place] Heart Association Hypertension Guidelines Peak Exercise Blood Pressure:: 140/70 Outcomes/Goals: Able to verbalize/achieve optimal blood pressure <130/80 and Incorporates diet changes & exercise for blood pressure control by DC Interventions/plan: Instruct on optimal blood pressure, hypertension & medications and Instruct on effects of sodium, alcohol, stress, exercise &hypertension 30 day Reassessments:: Met Tobacco Cessation Referral Education Schedule Given:: Yes Core - 60-Day Assessment Hypertension Resting Blood Pressure:: 112/64 Citizen Of [place] Heart Association Hypertension Guidelines Psychosocial - 30-Day Assess Referral to Behavioral Health PS - Interventions: Yes: Attend Stress Management Classes Psychosocial - 60-Day Assess Referral to Behavioral Health PS - Interventions: Yes: Attend Stress Management Classes Psychosocial - 90-Day Assess Referral to Behavioral Health PS - Interventions: Yes: Attend Stress Management Classes Psychosocial - Final Assessmen VIsit Date of Eval: 06/30/25 Session #:: 33 History of previous Mental disease:: No History of Emotional Disorders: None Psychosocial Test Tool Used:: PHQ-9 Questionnaire phq-9 Severity See PHQ-9 Score: 8 Referral to Behavioral Health PS - Interventions: Yes: Attend Stress Management Classes Outcomes/Goals: See list Psychosocial Outcomes/Goals:: ID's personal stressors & 2 strategies to manage stress by discharge Intervention/Plan: See List Interventions/Plan:: Assess stressors,coping strategies & signs of derpression on admission, Instruct/assist pt to develop coping & personal stress Mgt strategies, Refer to Behavioral Health if appropriate, Refer to Physician if appropriate and Instruct patient to recognize signs & symptoms of depression 30-day Reassessments: 30 day Reassessments:: Met Reassessment Notes & Comments:: PT voices no psychosocial needs at this time. Nutrition - 90-Day Assessment Weight Mgt (Other Care) Height: 5 ft 4 in Weight:: 233 lb BMI: 39.9 BMI (Report if calculated above): 39 Nutrition - Final Assessment Diabetes (Other Core Measures) Diabetes Type: Diagnosis Type II ICD-10 E11 Insulin dependent injection/pump?: No Non-Insulin Dependent?: Yes Do you monitor your blood sugar at home?: Yes Weight Mgt (Other Care) Height: 5 ft 4 in Weight:: 233 lb BMI: 39.9 BMI (Report if calculated above): 39 Diagnosis Overweight/Obesity BMI> 30% ICD-10 E66: Yes Diagnosis High BMI/Morbid Obesity BMI> 35% ICD-10 Z68: Yes Outcomes/Goals: Pt sets, maintains & shows weight loss goal & trend during rehab Intervention/Plan: Instruct on ideal BMI & set weight loss goal w/patient, Assist pt to ID & incorporate diet changes for weight loss by S9, Refer to Structured Weight Loss program as appropriate and Encourage goal of using 250- 300dcal per session for weight loss 30 day Reassessments:: Progressing Reassessment Notes & Comments:: Pt continues to monitor weight weekly in class and works to incorporate diet and lifestyle changes to promote weight loss. Healthy Eating Habits Will attend diet classes:: Yes Outcomes/Goals:: Consume diet rich in vegs,fruits,whole grain/high fiber,fish,lean meat and Limit sat/trans fats,cholesterol & added salts & sugars Intervention/Plan:: Assess current eating habits 30-day Reassessments:: Met Education Gave educational materials for:: Signs & symptoms of hypoglycemia, Signs & symptoms of hyperglycemia, Relate diabetes to coronary artery disease and Healthy eating
[2025-06-30 12:33] VITALS: BP 112/64; BP 140/72; BMI 39.0; BMI 39.9
== END 2025-07-12 23:59 ==
LOC: CR 02:15
PROVIDERS: PCP Internal Medicine
DX: Z48.812 Encounter for surgical aftercare following surgery on the circulatory system (principal); Z95.2 Presence of prosthetic heart valve
CPT/HCPCS: 93798

== ENCOUNTER → 2025-08-05 | Outpatient (CLI) | payer MEDICARE, MEDICAID, SELFPAY ==
[2025-06-30 12:33] VITALS: BMI 39.9
[2025-08-05 10:46] LABS: Anion Gap 10 (5-15); BUN 21 mg/dL (4-19); BUN/Creat Ratio 26.8 RATIO (10-20); Calcium,Total 9.1 mg/dL (7.6-11.0); Carbon Dioxide 24.8 mmol/L (21.0-32.0); Chloride 108 mmol/L (98-108); Glucose 140 mg/dL (70-99); Potassium 4.1 mmol/L (3.3-5.1)
== END | disposition home or self-care (01) ==
LOC: LAB 08:51
PROVIDERS: PCP Internal Medicine
DX: M25.562 Pain in left knee (principal); G47.62 Sleep related leg cramps
CPT/HCPCS: 36415; 73564; 80048

== ENCOUNTER 2025-08-25 12:03 | Outpatient (RCR) | payer MEDICARE, MEDICAID, SELFPAY ==
[2025-06-30 12:33] VITALS: BMI 39.9
[2025-08-25 12:41] LABS: Prothrombin Time (Protime)PT. 14.5 SECONDS (11.7-14.9)
== END 2025-09-11 18:00 | disposition home or self-care (01) ==
LOC: LAB 12:03
PROVIDERS: PCP Internal Medicine; Referring Provider Internal Medicine; Visit Provider Internal Medicine
DX: I82.409 Acute embolism and thrombosis of unspecified deep veins of unspecified lower extremity
CPT/HCPCS: 36415; 85610

== ENCOUNTER → 2025-10-11 | Outpatient (CLI) | payer MEDICARE, MEDICAID, SELFPAY ==
[2025-06-30 12:33] VITALS: BMI 39.9
[2025-10-11 09:35] LABS: AST(SGOT) 22 U/L (<=31); Alanine Aminotransfer ALT/SGPT 21 U/L (<=34); Albumin, Serum 3.7 g/dL (3.4-4.8); Alkaline Phosphatase 68 U/L (35-104); Bilirubin, Direct 0.10 mg/dL (0.00-0.30); Cholesterol 160 mg/dL (<=200); Globulin 2.9 g/dL (2.2-4.2); Low Density Lipoprotein Calc. 71 mg/dL; Triglycerides 356 mg/dL; Very Low Density Lipoprotein 71 mg/dL (5-40); cholesterol:hdl ratio screen 4.88
== END | disposition home or self-care (01) ==
LOC: LAB 08:22
PROVIDERS: PCP Internal Medicine; Referring Provider Internal Medicine Cardiovascular Disease; Visit Provider Internal Medicine Cardiovascular Disease
DX: E78.00 Pure hypercholesterolemia, unspecified (principal)
CPT/HCPCS: 36415; 80061; 80076